=== PATIENT | male | born 1945 | race Caucasian/White ===

== ENCOUNTER 2018-06-20 20:17 | Inpatient (IN) ==
[2018-06-20] MEDS ORDERED: Succinylcholine Inj 200 MG/10 ML Vial ONE (20:21)
[2018-06-20] MEDS ORDERED: Propofol Inj 500 MG/50 ML Vial ONE (20:21)
[2018-06-20] MEDS ORDERED: Etomidate Inj 40 MG/20 ML Vial IV.PUSH ONE (20:21)
[2018-06-20] MEDS ORDERED: Etomidate Inj 20 MG/10 ML Ampul IV.PUSH ONE (20:35)
[2018-06-20] MEDS ORDERED: Succinylcholine Inj 100 MG/5 ML Syringe IV.PUSH ONE (20:35)
--- NOTE | 2018-06-20 20:45 | ED ---
HPI General Chief Complaint: Respiratory Symptoms Stated Complaint: Unresponsive/intubated Time Seen by Provider: 06/20/18 20:35 Mode of arrival: EMS Limitations: altered mental status and physical limitation (intubated and sedated) History of Present Illness Per EMS, the patient had been with his family at [facility], when he started to feel chest pain shortness of breath. Family stated that he has a history of COPD and CHF. EMS found him in severe respiratory distress asked the patient if he wanted to be intubated and he nodded yes they went ahead and provided etomidate and Versed and intubated apparently successfully once but had to switch with tube exchanger due to cuff deflation/rupture. upon arriving in ed, air leak detected, pulse ox 60's, decision to reintubate made (see procedure note) Related Data Home Medications Medication Instructions Recorded Confirmed aspirin 81 mg PO DAILY 06/20/18 06/20/18 baclofen 20 mg PO TID 06/20/18 06/20/18 brimonidine 1 drp OPHTHALMIC (EYE) TID 06/20/18 06/20/18 cilostazol 50 mg PO BID 06/20/18 06/20/18 gabapentin 300 mg PO TID 06/20/18 06/20/18 metformin 1,000 mg PO BID 06/20/18 06/20/18 omeprazole 20 mg PO DAILY 06/20/18 06/20/18 simvastatin 20 mg PO QPM 06/20/18 06/20/18 sitagliptin [Januvia] 100 mg PO DAILY 06/20/18 06/20/18 Allergies Allergy/AdvReac Type Severity Reaction Status Date / Time bee venom protein (honey bee) Allergy Difficulty Verified 06/20/18 22:04 [Bee sting] Breathing hydromorphone Allergy Nausea/Vomi Verified 06/20/18 22:04 ting pregabalin [From Lyrica] Allergy Anaphylaxis Verified 06/20/18 22:04 Review of Systems ROS: all other systems reviewed are negative PMFSH History History 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 Medical History Medical History BPH (benign prostatic hyperplasia) (Acute) CHF (congestive heart failure) (Acute) COPD (chronic obstructive pulmonary disease) (Acute) Chronic bronchitis (Acute) GERD (gastroesophageal reflux disease) (Acute) Glaucoma (Acute) Hypertension (Acute) Neuropathy (Acute) PVD (peripheral vascular disease) (Acute) Pacemaker (Acute) Surgical history unknown (Acute) Type 2 diabetes mellitus (Acute) Social History Social History Smoking Status: Current every day smoker Tobacco Type: Cigarettes How Often Do You Have a Drink Containing Alcohol: Unable to Obtain Recent Travel in [facility] within the Last 8 Weeks: No Recent Out of Country Travel within the Last 8 Weeks: No Immunization History Tetanus Immunization: Unable to Assess Hx Influenza Vaccine This Season: Unable to Assess Exam Narrative Exam Narrative: GENERAL: elderly male in severe respiratory distress SKIN: Diaphoretic warm skin HEAD: Atraumatic. Normocephalic. EYES: Pupils equal and round. No scleral icterus. No injection or drainage. ENT: No nasal bleeding or discharge. Mucous membranes pink and moist. Patient arrived with ET tube placed by EMS however there was detected air leak and the ET tube was changed NECK: Trachea midline. No JVD. CARDIOVASCULAR: Tachycardic rate regular rhythm. no rubs or gallops RESPIRATORY: Some spontaneous respirations, tachypneic, retractions, crackles diffusely, shallow breathing... Pacemaker on left anterior chest wall GASTROINTESTINAL: Abdomen soft, non-tender, nondistended. No rebound or guarding MUSCULOSKELETAL: Extremities without clubbing, cyanosis, or edema. No obvious deformities. NEUROLOGICAL: Please let it be noted that the patient did receive Versed 4 mg and 40 mg of etomidate prior to arrival by EMS patient was sedated and unable to follow any commands. Procedures Intubation Time Out Performed: Yes Sedative: etomidate Mg Given: 20 Paralytic: succinylcholine Mg Given: 100 Laryngoscope: Kait ET Tube Size: 7.5 ET Tube Uncuffed: Yes Tube Secured Depth (cm): 22 Tube Secured Location: teeth Tube Placement Confirmation: visualized tube passing through cords, equal breath sounds bilaterally and no breath sounds over epigastrium Patient Tolerated Procedure: no complications Intubation Complications: none Additional Comments: I was the attending personally supervising EDIE Gonzalez during the entirety of intubation (performed by EDIE Gonzalez), sedation, post intubation evaluation and sedation. Course Initial Documented Vital Signs Temperature 98.0 F 06/20/18 20:24 Pulse Rate 118 H 06/20/18 20:24 Respiratory Rate 20 06/20/18 20:24 Blood Pressure 158/80 H 06/20/18 20:24 Pulse Oximetry 85 L 06/20/18 20:24 Last Documented Vital Signs Temperature 98.0 F 06/20/18 20:24 Pulse Rate 106 H 06/20/18 21:24 Respiratory Rate 14 06/20/18 21:24 Blood Pressure 154/85 H 06/20/18 21:24 Pulse Oximetry 95 06/20/18 21:24 Critical Care Time Critical Care Time: Yes Total Critical Care Time: 60 Attestation: Aggregate critical care time was 60 minutes. Time to perform other separately billable procedures was not included in the critical care time. My time did not include minutes spent treating any other patients simultaneously or on activities that did not directly contribute to the patient's treatment. The services I provided to this patient were to treat and/or prevent clinically significant deterioration that could result in: [-] I provided critical care services requiring my management, as noted below: Chart data review, documentation time, medication orders and management, vital sign assessments/reviewing monitor data, ordering and reviewing lab tests, ordering and interpreting/reviewing x-rays and diagnostic studies, care of the patient and discussion of the patient with the admitting physicians. Medical Decision Making MDM Narrative Medical decision making narrative: ABG performed on PRBC, 550, 14, 100%, 5 of PEEP revealed acidosis of pH 7.197, PCO2 42, PaO2 severe hypoxemia 62.... At this point will increase PEEP to 10 to attempt and improve oxygenation Chest x-ray consistent with pulmonary edema Hypoxemic respiratory failure secondary to CHF CBC does not show any evidence of anemia, leukocytosis, thrombocytopenia of 86, 000 Coagulation profile is within normal limits Electrolytes are within normal limits with the exception of a random glucose of 231 hypoglycemia Troponin elevated at 0.14 Beta natruretic peptide elevated at 554 Tox screen negative except for benzodiazepines which the patient was given prior to arrival, he was given Versed for intubation purposes Differential Diagnosis Differential Diagnosis: Hypoxemic respiratory failure versus CHF exacerbation versus COPD exacerbation versus pneumonia versus STEMI Lab Data Lab results reviewed: Yes I reviewed the patient's lab results. Result diagrams: 06/20/18 20:50 06/20/18 20:50 Lab Results 06/20/18 06/20/18 06/20/18 Range/Units 20:50 20:50 20:50 WBC 8.5 (4.0-11.0) th/mm3 RBC 4.05 L (4.50-5.90) mil/mm3 Hgb 12.5 L (13.0-17.0) gm/dL Hct 38.4 L (39.0-51.0) % MCV 94.8 (80.0-100.0) fL MCH 30.8 (27.0-34.0) pg MCHC 32.5 (32.0-36.0) % RDW 16.6 (11.6-17.2) % Plt Count 86 L (150-450) th/mm3 MPV 10.0 (7.0-11.0) fL Prelim Diff (Auto) Slide review pending Neut % (Auto) 60.0 (16.0-70.0) % Lymph % (Auto) 32.2 (9.0-44.0) % Finney % (Auto) 5.6 (0.0-8.0) % Eos % (Auto) 1.5 (0.0-4.0) % Baso % (Auto) 0.7 (0.0-2.0) % Neut # (Auto) 5.1 (1.8-7.7) th/mm3 Lymph # (Auto) 2.7 (1.0-4.8) th/mm3 Finney # (Auto) 0.5 (0.0-0.9) th/mm3 Eos # (Auto) 0.1 (0.0-0.4) th/mm3 Baso # (Auto) 0.1 (0.0-0.2) th/mm3 Differential Comment . PT 11.8 H (9.8-11.6) sec INR 1.2 Ratio APTT 25.1 (24.3-30.1) sec Puncture Site Patient Temperature O2 Saturation (90-100) % ABG pH (7.380-7.420) ABG pCO2 (38-42) mmHg ABG pO2 (61-120) mmHg ABG HCO3 (22-26) mmol/L ABG O2 Content (12.0-20.0) Vol % ABG Base Excess (-2-2) mmol/L ABG Methemoglobin (0-2) % Carlos Test Hemoglobin (12.0-16.0) G/DL Carboxyhemoglobin (0-4) % O2 Delivery Device Vent Setting Inspired O2 % Critical Value Sodium 136 (136-145) meq/L Potassium 3.4 L (3.5-5.1) meq/L Chloride 103 (98-107) meq/L Carbon Dioxide 14.2 L (21.0-32.0) meq/L Anion Gap 19 H (5-15) meq/L BUN 12 (7-18) mg/dL Creatinine 1.24 (0.60-1.30) mg/dL Estimated GFR 50 L (>89) mL/min Random Glucose 231 H (74-106) mg/dL Calcium 8.3 L (8.5-10.1) mg/dL Total Bilirubin 0.5 (0.2-1.0) mg/dL AST 67 H (15-37) U/L ALT 65 (12-78) U/L Alkaline Phosphatase 87 (45-117) U/L Total Creatine Kinase 78 (39-308) U/L Troponin I 0.14 H (0.02-0.05) ng/mL B-Natriuretic Peptide (0-100) pg/mL Total Protein 7.4 (6.4-8.2) g/dL Albumin 3.3 L (3.4-5.0) g/dL Urine Color (Yellw/Straw) Urine Clarity (Clear) Urine pH (5.0-8.5) Ur Specific [place] (1.002-1.035) Urine Protein (Neg-Trace) mg/dL Urine Glucose (UA) (Negative) mg/dL Urine Ketones (Negative) mg/dL Urine Occult Blood (Negative) Urine Nitrate (Negative) Urine Bilirubin (Negative) Urine Urobilinogen (Less than 2) mg/dL Ur Leukocyte Esterase (Negative) Urine RBC (0-3) /hpf Urine WBC (0-5) /hpf Ur Squamous Epith Cells (0-5) /hpf Urine Bacteria (None) /hpf Hyaline Casts (0-3) /lpf Micro UA Comment Urine Culture Comments Urine Opiates Screen (Neg) Ur Barbiturates Screen (Neg) Ur Amphetamines Screen (Neg) U Benzodiazepines Scrn (Neg) Urine Cocaine Screen (Neg) U Cannabinoids Screen (Neg) 06/20/18 06/20/18 06/20/18 Range/Units 20:50 20:58 21:15 WBC (4.0-11.0) th/mm3 RBC (4.50-5.90) mil/mm3 Hgb (13.0-17.0) gm/dL Hct (39.0-51.0) % MCV (80.0-100.0) fL MCH (27.0-34.0) pg MCHC (32.0-36.0) % RDW (11.6-17.2) % Plt Count (150-450) th/mm3 MPV (7.0-11.0) fL Prelim Diff (Auto) Neut % (Auto) (16.0-70.0) % Lymph % (Auto) (9.0-44.0) % Finney % (Auto) (0.0-8.0) % Eos % (Auto) (0.0-4.0) % Baso % (Auto) (0.0-2.0) % Neut # (Auto) (1.8-7.7) th/mm3 Lymph # (Auto) (1.0-4.8) th/mm3 Finney # (Auto) (0.0-0.9) th/mm3 Eos # (Auto) (0.0-0.4) th/mm3 Baso # (Auto) (0.0-0.2) th/mm3 Differential Comment PT (9.8-11.6) sec INR Ratio APTT (24.3-30.1) sec Puncture Site Left radial Patient Temperature 98.6 O2 Saturation 81 L* (90-100) % ABG pH 7.20 L* (7.380-7.420) ABG pCO2 43 H (38-42) mmHg ABG pO2 62 (61-120) mmHg ABG HCO3 16 L* (22-26) mmol/L ABG O2 Content 15.2 (12.0-20.0) Vol % ABG Base Excess -10.6 L (-2-2) mmol/L ABG Methemoglobin 0.9 (0-2) % Carlos Test Present Hemoglobin 13.3 (12.0-16.0) G/DL Carboxyhemoglobin 3.8 (0-4) % O2 Delivery Device Ventilator Vent Setting Prvc 14/550/5+/1.0it Inspired O2 100 % Critical Value Yes Sodium (136-145) meq/L Potassium (3.5-5.1) meq/L Chloride (98-107) meq/L Carbon Dioxide (21.0-32.0) meq/L Anion Gap (5-15) meq/L BUN (7-18) mg/dL Creatinine (0.60-1.30) mg/dL Estimated GFR (>89) mL/min Random Glucose (74-106) mg/dL Calcium (8.5-10.1) mg/dL Total Bilirubin (0.2-1.0) mg/dL AST (15-37) U/L ALT (12-78) U/L Alkaline Phosphatase (45-117) U/L Total Creatine Kinase (39-308) U/L Troponin I (0.02-0.05) ng/mL B-Natriuretic Peptide 554 H (0-100) pg/mL Total Protein (6.4-8.2) g/dL Albumin (3.4-5.0) g/dL Urine Color (Yellw/Straw) Urine Clarity (Clear) Urine pH (5.0-8.5) Ur Specific [place] (1.002-1.035) Urine Protein (Neg-Trace) mg/dL Urine Glucose (UA) (Negative) mg/dL Urine Ketones (Negative) mg/dL Urine Occult Blood (Negative) Urine Nitrate (Negative) Urine Bilirubin (Negative) Urine Urobilinogen (Less than 2) mg/dL Ur Leukocyte Esterase (Negative) Urine RBC (0-3) /hpf Urine WBC (0-5) /hpf Ur Squamous Epith Cells (0-5) /hpf Urine Bacteria (None) /hpf Hyaline Casts (0-3) /lpf Micro UA Comment Urine Culture Comments Urine Opiates Screen Neg (Neg) Ur Barbiturates Screen Neg (Neg) Ur Amphetamines Screen Neg (Neg) U Benzodiazepines Scrn Pos H (Neg) Urine Cocaine Screen Neg (Neg) U Cannabinoids Screen Neg (Neg) 06/20/18 Range/Units 21:15 WBC (4.0-11.0) th/mm3 RBC (4.50-5.90) mil/mm3 Hgb (13.0-17.0) gm/dL Hct (39.0-51.0) % MCV (80.0-100.0) fL MCH (27.0-34.0) pg MCHC (32.0-36.0) % RDW (11.6-17.2) % Plt Count (150-450) th/mm3 MPV (7.0-11.0) fL Prelim Diff (Auto) Neut % (Auto) (16.0-70.0) % Lymph % (Auto) (9.0-44.0) % Finney % (Auto) (0.0-8.0) % Eos % (Auto) (0.0-4.0) % Baso % (Auto) (0.0-2.0) % Neut # (Auto) (1.8-7.7) th/mm3 Lymph # (Auto) (1.0-4.8) th/mm3 Finney # (Auto) (0.0-0.9) th/mm3 Eos # (Auto) (0.0-0.4) th/mm3 Baso # (Auto) (0.0-0.2) th/mm3 Differential Comment PT (9.8-11.6) sec INR Ratio APTT (24.3-30.1) sec Puncture Site Patient Temperature O2 Saturation (90-100) % ABG pH (7.380-7.420) ABG pCO2 (38-42) mmHg ABG pO2 (61-120) mmHg ABG HCO3 (22-26) mmol/L ABG O2 Content (12.0-20.0) Vol % ABG Base Excess (-2-2) mmol/L ABG Methemoglobin (0-2) % Carlos Test Hemoglobin (12.0-16.0) G/DL Carboxyhemoglobin (0-4) % O2 Delivery Device Vent Setting Inspired O2 % Critical Value Sodium (136-145) meq/L Potassium (3.5-5.1) meq/L Chloride (98-107) meq/L Carbon Dioxide (21.0-32.0) meq/L Anion Gap (5-15) meq/L BUN (7-18) mg/dL Creatinine (0.60-1.30) mg/dL Estimated GFR (>89) mL/min Random Glucose (74-106) mg/dL Calcium (8.5-10.1) mg/dL Total Bilirubin (0.2-1.0) mg/dL AST (15-37) U/L ALT (12-78) U/L Alkaline Phosphatase (45-117) U/L Total Creatine Kinase (39-308) U/L Troponin I (0.02-0.05) ng/mL B-Natriuretic Peptide (0-100) pg/mL Total Protein (6.4-8.2) g/dL Albumin (3.4-5.0) g/dL Urine Color Yellow (Yellw/Straw) Urine Clarity Clear (Clear) Urine pH 5.0 (5.0-8.5) Ur Specific [place] 1.005 (1.002-1.035) Urine Protein 30 H (Neg-Trace) mg/dL Urine Glucose (UA) 50 (Negative) mg/dL Urine Ketones Negative (Negative) mg/dL Urine Occult Blood Small H (Negative) Urine Nitrate Negative (Negative) Urine Bilirubin Negative (Negative) Urine Urobilinogen Less than 2 (Less than 2) mg/dL Ur Leukocyte Esterase Negative (Negative) Urine RBC 1 (0-3) /hpf Urine WBC 1 (0-5) /hpf Ur Squamous Epith Cells <1 (0-5) /hpf Urine Bacteria Occasional H (None) /hpf Hyaline Casts 1 (0-3) /lpf Micro UA Comment Cath-culture ind Urine Culture Comments Cath-cult indicated Urine Opiates Screen (Neg) Ur Barbiturates Screen (Neg) Ur Amphetamines Screen (Neg) U Benzodiazepines Scrn (Neg) Urine Cocaine Screen (Neg) U Cannabinoids Screen (Neg) Imaging Data Radiologist's impression: Chest X-Ray 06/20/18 20:36 CONCLUSION: Bilateral perihilar infiltrates and mild cardiomegaly. Please see above. ECG Data EKG Prior to Arrival: No Attestation: I personally reviewed and interpreted this ECG as follows: Prior ECG tracings: not available for review Interpretation: Atrial fibrillation with RVR 113 bpm, conduction delay wide- complex Discharge Plan Discharge Disposition Patient Disposition: 30 Still Patient Discharge Condition Condition: Serious Discharge Details Diagnosis: Respiratory failure Physicians Team ED Provider: Huang Shirley Primary Care Provider: UNKNOWN, Rxs /Orders / Referrals /Forms Prescriptions: No Action metformin 500 mg Tablet 1,000 mg PO BID RF: 0 cilostazol 50 mg Tablet 50 mg PO BID RF: 0 baclofen 10 mg Tablet 20 mg PO TID RF: 0 simvastatin 20 mg Tablet 20 mg PO QPM RF: 0 gabapentin 300 mg Capsule 300 mg PO TID RF: 0 omeprazole 20 mg Capsule,Delayed Release(Dr/Ec) 20 mg PO DAILY RF: 0 aspirin 81 mg Tablet,Chewable 81 mg PO DAILY RF: 0 brimonidine 0.15 % Drops 1 drp OPHTHALMIC (EYE) TID RF: 0 sitagliptin [Januvia] 100 mg Tablet 100 mg PO DAILY RF: 0 Status ED Status: With Doctor
[2018-06-20 21:05] LABS: Baso # (Auto) 0.1 th/mm3 (0.0-0.2); Baso % (Auto) 0.7 % (0.0-2.0); Eos # (Auto) 0.1 th/mm3 (0.0-0.4); Eos % (Auto) 1.5 % (0.0-4.0); Hematocrit 38.4 % (39.0-51.0); Hemoglobin 12.5 gm/dL (13.0-17.0); Lymph # (Auto) 2.7 th/mm3 (1.0-4.8); Lymph % (Auto) 32.2 % (9.0-44.0); Mean Corpuscular HGB Conc 32.5 % (32.0-36.0); Mean Corpuscular Hemoglobin 30.8 pg (27.0-34.0); Mean Corpuscular Volume 94.8 fL (80.0-100.0); Mono # (Auto) 0.5 th/mm3 (0.0-0.9); Mono % (Auto) 5.6 % (0.0-8.0); Neut # (Auto) 5.1 th/mm3 (1.8-7.7); Platelet Count 86 th/mm3 (150-450); Red Blood Count 4.05 mil/mm3 (4.50-5.90); Red Cell Distribution Width 16.6 % (11.6-17.2); White Blood Count 8.5 th/mm3 (4.0-11.0)
[2018-06-20 21:13] LABS: ABG Base Excess -10.6 mmol/L (-2-2); ABG PCO2 43 mmHg (38-42); ABG PO2 62 mmHg (61-120)
[2018-06-20 21:17] LABS: Activated Partial Thrombo Time 25.1 sec (24.3-30.1); INR 1.2 Ratio; Prothrombin Time 11.8 sec (9.8-11.6)
--- NOTE | 2018-06-20 21:21 | XR ---
EXAM DATE: 06/20/2018 9:08 PM EDT AGE/SEX: 89 years / Male INDICATIONS: Shortness of breath. Patient was found unresponsive. CLINICAL DATA: This is the patient's initial encounter. Patient reports that signs and symptoms have been present for 1 day and indicates a pain score of Nonresponsive. MEDICAL/SURGICAL HISTORY: Non-responsive. Non-responsive. COMPARISON: No prior exams available for comparison. FINDINGS: Bilateral perihilar infiltrates are present with mild cardiomegaly, presumably acute failure. No larg e effusion. No pneumothorax. Cardiac pacer/defibrillator present. Patient is intubated. Endotracheal tube tip is approximately 7 cm above the [place]. CONCLUSION: Bilateral perihilar infiltrates and mild cardiomegaly. Please see above. Electronically signed by: Michael Rosario MD 06/20/2018 9:20 PM EDT
[2018-06-20 21:36] LABS: Alanine Aminotransferase 65 U/L (12-78); Albumin 3.3 g/dL (3.4-5.0); Anion Gap 19 meq/L (5-15); Aspartate Aminotransferase 67 U/L (15-37); Blood Urea Nitrogen 12 mg/dL (7-18); Calcium 8.3 mg/dL (8.5-10.1); Carbon Dioxide 14.2 meq/L (21.0-32.0); Chloride 103 meq/L (98-107); Glomerular Filtration Rate 50 mL/min (>89); Glucose,Random 231 mg/dL (74-106); Sodium 136 meq/L (136-145)
[2018-06-20 21:49] LABS: Alkaline Phosphatase 87 U/L (45-117); Total Protein 7.4 g/dL (6.4-8.2); Troponin I 0.14 ng/mL (0.02-0.05)
--- NOTE | 2018-06-20 21:51 | ECG ---
Date Performed: 06/20/2018 Time Performed: 20:34:05 PTAGE: 89 years EKG: ATRIAL FIBRILLATION WITH RAPID VENTRICULAR RESPONSE WITH VENTRICULAR PREMATURE COMPLEXES LB BB NO PREVIOUS TRACING DOCTOR: Amparo Bejarano Interpretating Date/Time 06/20/2018 21:49:43
[2018-06-20 21:54] LABS: Amphetamine Screen,Urine Neg (Neg); Barbiturate Screen,Urine Neg (Neg); Cannabinoid Screen,Urine Neg (Neg); Cocaine Screen,Urine Neg (Neg)
[2018-06-20 21:58] LABS: Bacteria,Urine Occasional /hpf; Bilirubin,Urine Negative (Negative); Clarity,Urine Clear (Clear); Color,Urine Yellow (Yellw/Straw); Glucose,Urine (UA) 50 mg/dL (Negative); Hyaline Casts,Urine 1 /lpf (0-3); Leukocyte Esterase,Urine Negative (Negative); Nitrite,Urine Negative (Negative); Specific Gravity,Urine 1.005 (1.002-1.035); Squamous Epithelial Cell,Urine <1 /hpf (0-5)
[2018-06-20 21:59] LABS: Creatine Kinase 78 U/L (39-308); Potassium 3.4 meq/L (3.5-5.1)
[2018-06-20 22:00] LABS: Opiate Screen,Urine Neg (Neg)
[2018-06-20] MEDS ORDERED: Acetaminophen 325 MG Tablet PO PRN (23:09)
[2018-06-20] MEDS ORDERED: Dextrose 50% in Water 50 ML Vial IV.PUSH PRN (23:26)
--- NOTE | 2018-06-20 23:53 | P.HPCC ---
History of Present Illness Service: Critical care medicine Primary Care Physician: UNKNOWN Chief Complaint: Chest pain, shortness of breath History of Present Illness: Elderly male with a medical history significant for viral cardiomyopathy who was traveling on vacation from [place] with his family in [place] and today developed chest pain with worsening shortness of breath for which EMS was called by family. Patient was extremely short of breath on the arrival and hypoxic and they proceeded with endotracheal intubation and patient was transferred to the ER. In the ER it was noted that his cuff was leaking hence ET tube was exchanged by ER physician and patient was placed on mechanical ventilation. Per his family he has a defibrillator and is followed by his bulk mail clerk in [place] whom he saw in December of this year. He reportedly does not take any diuretic. Chest x-ray done in the ER revealed pulmonary edema. EKG revealed atrial fibrillation. Patient was accepted for admission by critical care medicine service. When I evaluated him in the ER he was sedated with propofol, orally intubated on mechanical ventilation. History was obtained by reviewing records, discussion with family as well as ER physician. Inpatient Certification: I certify that the inpatient services were ordered in accordance with Medicare regulations governing the order. This includes certification that hospital inpatient services are reasonable and necessary and in the case of services not specified as inpatient-only under 42 CFR 419.22(n), that they are appropriately provided as inpatient services in accordance to with the 2-midnight benchmark under 43 CFR 412.3(e) Estimated Total Length of Stay (Days): 5 Plans for Post Hospital Care: Not yet determined Review of Systems unobtainable due to endotracheal tube PMFSH - History History Provided By: Aircraft Lay Out Worker / EMT - Medical History Medical History: Medical History (Last Updated 06/20/18 @ 21:59 by Gaston Orantes) BPH (benign prostatic hyperplasia) CHF (congestive heart failure) COPD (chronic obstructive pulmonary disease) Chronic bronchitis GERD (gastroesophageal reflux disease) Glaucoma Hypertension Neuropathy PVD (peripheral vascular disease) Pacemaker Surgical history unknown Type 2 diabetes mellitus - Tobacco History Tobacco Use In Past 30 Days: Yes Smoking Status: Current every day smoker Tobacco Type: Cigarettes - Alcohol History How Often Do You Have a Drink Containing Alcohol: Unable to Obtain - Travel History Recent Travel in the [place] Within the Last 8 Weeks: No Recent Travel Out of the Country Within the Last 8 Weeks: No - Immunization History Tetanus Immunization: Unable to Assess Hx Influenza Vaccine This Season: Unable to Assess Medications and Allergies Active Medications: Active Medications Acetaminophen (Tylenol) 650 mg PO Q6H PRN PRN Reason: PAIN 1-10 AND/OR FEVER >101F Albuterol (Duoneb Neb (Yon)) 1 ampul NEB Q6HR NEB [facility] Aspirin (Aspirin Chew) 324 mg PO ONCE STA Stop: 06/20/18 23:38 Chlorhexidine Gluconate (Chlorhexidine 2% Cloth) 3 pack TOPICAL DAILY@0400 YON Stop: 06/26/18 03:59 Chlorhexidine Gluconate (Chlorhexidine 2% Cloth) 3 pack TOPICAL DAILY@0400 PRN PRN Reason: Extra cloth needed Stop: 06/26/18 03:59 Dextrose (D50w Vial) 50 ml IV.PUSH UNSCH PRN PRN Reason: PER HYPOGLYCEMIA PROTOCOL Furosemide (Lasix Inj) 40 mg IV.PUSH BID@0900,1800 YON Glucagon (Glucagon Inj) 1 mg OTHER PRN PRN PRN Reason: for Hypoglycemia Protocol Propofol (Diprivan 1000 Mg/100 Ml Inj) 1,000 mg in 100 mls @ 2.1 mls/hr IV.CONT TITRATE PRN; Protocol PRN Reason: Per Protocol Insulin Human Regular (Novolin R Correctional Sugar Inj) 0 units SQ Q6HR YON; Protocol Sodium Chloride (Ns Flush) 2 ml IV.FLUSH PRN PRN PRN Reason: FLUSH AFTER USING IV ACCESS Allergies Allergy/AdvReac Type Severity Reaction Status Date / Time bee venom protein (honey bee) Allergy Difficulty Verified 06/20/18 22:04 [Bee sting] Breathing hydromorphone Allergy Nausea/Vomi Verified 06/20/18 22:04 ting pregabalin [From Lyrica] Allergy Anaphylaxis Verified 06/20/18 22:04 Home Medications Medication Instructions Recorded Confirmed Type aspirin 81 mg PO DAILY 06/20/18 06/20/18 History baclofen 20 mg PO TID 06/20/18 06/20/18 History brimonidine 1 drp OPHTHALMIC (EYE) TID 06/20/18 06/20/18 History cilostazol 50 mg PO BID 06/20/18 06/20/18 History gabapentin 300 mg PO TID 06/20/18 06/20/18 History metformin 1,000 mg PO BID 06/20/18 06/20/18 History omeprazole 20 mg PO DAILY 06/20/18 06/20/18 History simvastatin 20 mg PO QPM 06/20/18 06/20/18 History sitagliptin [Januvia] 100 mg PO DAILY 06/20/18 06/20/18 History Results - Labs CBC & Chem 7: 06/20/18 20:50 06/20/18 20:50 Labs: Short CBC 06/20/18 Range/Units 20:50 WBC 8.5 (4.0-11.0) th/mm3 Hgb 12.5 L (13.0-17.0) gm/dL Hct 38.4 L (39.0-51.0) % Plt Count 86 L (150-450) th/mm3 BMP 06/20/18 20:50 Sodium 136 Potassium 3.4 L Chloride 103 Carbon Dioxide 14.2 L BUN 12 Creatinine 1.24 Calcium 8.3 L Cardiac Enzymes 06/20/18 Range/Units 20:50 Total Creatine Kinase 78 (39-308) U/L Troponin I 0.14 H (0.02-0.05) ng/mL Liver Function 06/20/18 Range/Units 20:50 Total Bilirubin 0.5 (0.2-1.0) mg/dL AST 67 H (15-37) U/L ALT 65 (12-78) U/L Alkaline Phosphatase 87 (45-117) U/L Albumin 3.3 L (3.4-5.0) g/dL Urine 06/20/18 Range/Units 21:15 Urine Color Yellow (Yellw/Straw) Urine Clarity Clear (Clear) Urine pH 5.0 (5.0-8.5) Ur Specific [place] 1.005 (1.002-1.035) Urine Protein 30 H (Neg-Trace) mg/dL Urine Glucose (UA) 50 (Negative) mg/dL - Imaging Impressions Chest X-Ray 06/20/18 20:36 CONCLUSION: Bilateral perihilar infiltrates and mild cardiomegaly. Please see above. Exam Vital signs: Vital Signs 06/20/18 20:24 06/20/18 20:42 06/20/18 21:24 Temperature 98.0 F Pulse Rate 118 H 106 H Respiratory Rate 20 14 14 Blood Pressure 158/80 H 154/85 H Pulse Oximetry 85 L 95 Intake & Output 06/20/18 06/20/18 06/21/18 06:59 18:59 06:59 Weight 70 kg Narrative: HEENT/ Neuro: Sedated, orally intubated, No Pallor, no icterus, tongue/ mucosa moist Neck: Raised JVD Chest/Pulm: on mech vent, good air entry bilaterally, bibasilar crackles, no wheezing CVS: S1-S2 irregularly irregular, no murmur GI/abdomen: soft, nontender, bowel sounds sluggish Extremities: warm bilaterally, no edema Caprini VTE Risk Assessment Caprini VTE Risk Assessment: Moderate/High Risk (score >= 2) Caprini Risk Assessment Model: Point Value = 1 Point Value = 2 Point Value = 3 Point Value = 5 Age 41-60 Minor surgery BMI > 25 kg/m2 Swollen legs Varicose veins or History of unexplained or recurrent spontaneous Oral contraceptives or hormone replacement Sepsis (< 1 month) Serious lung disease, including pneumonia (< 1 month) Abnormal pulmonary function Acute myocardial infarction Congestive heart failure (< 1 month) History of inflammatory bowel disease Medical patient at bed rest Age 61-74 Arthroscopic surgery Major open surgery (> 45 min) Laparoscopic surgery (> 45 min) Malignancy Confined to bed (> 72 hours) Immobilizing plaster cast Central venous access Age >= 75 History of VTE Family history of VTE Factor V Leiden Prothrombin [id number] Lupus anticoagulant Anticardiolipin antibodies Elevated serum homocysteine Heparin-induced thrombocytopenia Other congenital or acquired thrombophilia Stroke (< 1 month) Elective arthroplasty Hip, pelvis, or leg fracture Acute spinal cord injury (< 1 month) Prophylaxis Regimen: Total Risk Factor Score Risk Level Prophylaxis Regimen 0-1 Low Early ambulation 2 Moderate Order ONE of the following: *Sequential Compression Device (SCD) *Heparin 5000 units SQ BID 3-4 Higher Order ONE of the following medications: *Heparin 5000 units SQ TID *Enoxaparin/Lovenox 40 mg SQ daily (WT < 150 kg, CrCl > 30 mL/min) *Enoxaparin/Lovenox 30 mg SQ daily (WT < 150 kg, CrCl > 10-29 mL/min) *Enoxaparin/Lovenox 30 mg SQ BID (WT < 150 kg, CrCl > 30 mL/min) AND/OR *Sequential Compression Device (SCD) 5 or more Highest Order ONE of the following medications: *Heparin 5000 units SQ TID (Preferred with Epidurals) *Enoxaparin/Lovenox 40 mg SQ daily (WT < 150 kg, CrCl > 30 mL/min) *Enoxaparin/Lovenox 30 mg SQ daily (WT < 150 kg, CrCl > 10-29 mL/min) *Enoxaparin/Lovenox 30 mg SQ BID (WT < 150 kg, CrCl > 30 mL/min) AND *Sequential Compression Device (SCD) Assessment and Plan - Assessment and Plan Plan: Elderly male with: Chest pain Acute respiratory failure Acute decompensated CHF Cardiomyopathy Positive troponin Atrial fibrillation Diabetes mellitus Hypertension COPD History of pacemaker/defibrillator placement Plan: Neuro: Sedation with propofol, daily sedation medication. Follow neuro status. Cardiovascular: Watch for hypotension. Diuresis with Lasix. Serial cardiac enzymes. 2D echo in a.m. Cardiology consult requested in view of decompensated CHF, history of cardiomyopathy and positive troponin. Obtain medical records from patient's bulk mail clerk in [place] in a.m. currently A. fib appears to be rate controlled. Continue aspirin. May need to initiate full anticoagulation-deferred to cardiology Pulmonary: Continue mechanical ventilation, vent bundle, bronchodilators as needed. Peep +10. Diuresis with Lasix. GI/liver: N.p.o. for now. If not extubated tomorrow consider tube feeds. Renal/: Strict intake output, monitor and replete electrolytes, follow BUN/ creatinine. Diuresis with Lasix ID: Watch for fever/leukocytosis. No antibiotics at this time. Endocrine: Sliding scale insulin for glycemic control. Prophylaxis: PPI/SCDs/Lovenox Condition critical Time spent on critical care excluding procedures 45 minutes.
[2018-06-21] MEDS: Insulin NovoLIN Regular Correctional Sugar Inj SQ SCH ×2 (00:46→06:38)
[2018-06-21] MEDS ORDERED: Chlorhexidine Gluconate 2% 1 Pack (2 Cloths) TOPICAL PRN (04:00)
--- NOTE | 2018-06-21 05:28 | XR ---
EXAM DATE: 06/21/2018 5:20 AM EDT AGE/SEX: 89 years / Male INDICATIONS: Shortness of breath, possible pulmonary disease. CLINICAL DATA: This is the patient's subsequent encounter. Patient reports that signs and symptoms h ave been present for 2 days and indicates a pain score of Nonresponsive. MEDICAL/SURGICAL HISTORY: Non-responsive. Non-responsive. COMPARISON: [facility], CHEST 1V SINGLE AP, 06/20/2018. . FINDINGS: Bilateral patchy parenchymal consolidation is stable. Endotracheal tube unchanged. EKG leads are pres ent. Aortic calcification and cardiomegaly. Osseous structures are intact. CONCLUSION: Stable exam. Electronically signed by: Trino Fernandez MD 06/21/2018 5:27 AM EDT
[2018-06-21 06:18] LABS: ABG Base Excess -2.6 mmol/L (-2-2); ABG PCO2 34 mmHg (38-42); ABG PO2 91 mmHG (61-120)
[2018-06-21] MEDS: Chlorhexidine Gluconate 2% 1 Pack (2 Cloths) TOPICAL SCH (06:39)
[2018-06-21] MEDS: Propofol 1000 mg/100 ml Inj 1,000 MG/100 ML BOTTLE IV.CONT PRN ×4 (06:43→20:07)
[2018-06-21 07:43] LABS: Baso % (Auto) 0.3 % (0.0-2.0); Eos # (Auto) 0.1 th/mm3 (0.0-0.4); Eos % (Auto) 1.2 % (0.0-4.0); Hematocrit 34.9 % (39.0-51.0); Lymph # (Auto) 1.6 th/mm3 (1.0-4.8); Lymph % (Auto) 16.3 % (9.0-44.0); Mean Corpuscular HGB Conc 34.2 % (32.0-36.0); Mean Corpuscular Hemoglobin 31.2 pg (27.0-34.0); Mean Corpuscular Volume 91.1 fL (80.0-100.0); Mean Platelet Volume 10.3 fL (7.0-11.0); Mono # (Auto) 0.5 th/mm3 (0.0-0.9); Mono % (Auto) 5.2 % (0.0-8.0); Neut # (Auto) 7.5 th/mm3 (1.8-7.7); Platelet Count 67 th/mm3 (150-450); Red Blood Count 3.84 mil/mm3 (4.50-5.90); Red Cell Distribution Width 16.7 % (11.6-17.2); White Blood Count 9.7 th/mm3 (4.0-11.0)
[2018-06-21 08:08] LABS: Anion Gap 12 meq/L (5-15); Aspartate Aminotransferase 122 U/L (15-37); Blood Urea Nitrogen 16 mg/dL (7-18); Calcium 8.1 mg/dL (8.5-10.1); Carbon Dioxide 22.1 meq/L (21.0-32.0); Chloride 102 meq/L (98-107); Glomerular Filtration Rate 42 mL/min (>89); Glucose,Random 195 mg/dL (74-106); Potassium 3.6 meq/L (3.5-5.1); Sodium 136 meq/L (136-145)
[2018-06-21 08:09] LABS: Alanine Aminotransferase 65 U/L (12-78)
[2018-06-21 08:13] LABS: Alkaline Phosphatase 74 U/L (45-117); Total Protein 6.5 g/dL (6.4-8.2)
[2018-06-21] MEDS ORDERED: Heparin 10,000 UNITS/10 ML Vial (for IV use) IV.PUSH STA (09:07)
[2018-06-21] MEDS ORDERED: Potassium Phosphate 500 MG Soluble Tablet PO PRN ×2 (09:14)
[2018-06-21] MEDS ORDERED: Magnesium Oxide 400 MG Tablet PO PRN (09:14)
[2018-06-21] MEDS ORDERED: Magnesium Sulfate Inj 2 GM in Sodium Chlor 0.9% Inj 96 ML IV.SIG PRN (09:14)
[2018-06-21] MEDS ORDERED: Magnesium Sulfate Inj 4 GM in Sodium Chlor 0.9% Inj 92 ML IV.SIG PRN (09:14)
[2018-06-21] MEDS ORDERED: Sodium Phosphate Inj 30 MMOL in Sodium Chlor 0.9% Inj 250 ML IV.SIG PRN (09:14)
[2018-06-21] MEDS ORDERED: Potassium Chlor 40 mEq Premix 40 MEQ/100 ML PIGGYBACK IV.SIG PRN ×2 (09:14)
[2018-06-21] MEDS ORDERED: Dextrose 50% in Water 50 ML Vial IV.PUSH PRN (09:18)
[2018-06-21] MEDS: fentaNYL 10 mcg/mL Premix Drip 2,500 MCG/250 ML BAG IV.SIG PRN (09:26)
[2018-06-21] MEDS: Metoprolol Tartrate 25 MG Tablet PO SCH ×3 (09:27→21:12)
[2018-06-21] MEDS ORDERED: fentaNYL Citrate Inj 100 MCG/2 ML Ampul IV.PUSH ONE (09:30)
--- NOTE | 2018-06-21 09:54 | P.PNCC ---
Subjective Subjective Remarks/Hospital Course: Elderly male with a medical history significant for viral cardiomyopathy who was traveling on vacation from [place] with his family in [place] and today developed chest pain with worsening shortness of breath for which EMS was called by family. Patient was extremely short of breath on the arrival and hypoxic and they proceeded with endotracheal intubation and patient was transferred to the ER. In the ER it was noted that his cuff was leaking hence ET tube was exchanged by ER physician and patient was placed on mechanical ventilation. Per his family he has a defibrillator and is followed by his character artist in [place] whom he saw in December of this year. He reportedly does not take any diuretic. Chest x-ray done in the ER revealed pulmonary edema. EKG revealed atrial fibrillation. Patient was accepted for admission by critical care medicine service. When I evaluated him in the ER he was sedated with propofol, orally intubated on mechanical ventilation. History was obtained by reviewing records, discussion with family as well as ER physician. Subjective 06/21: Afebrile. Hemodynamically stable. Troponin bumped 14. Started on heparin drip. Sedated with propofol and fentanyl drips. Arousable the ventilator and is very agitated will attempt to withdrawal tube. PEEP down to 5. Objective Vital Signs / I&O: Vital Signs 06/20/18 20:24 06/20/18 20:42 06/20/18 21:24 Temperature 98.0 F Pulse Rate 118 H 106 H Respiratory Rate 20 14 14 Blood Pressure 158/80 H 154/85 H Pulse Oximetry 85 L 95 06/20/18 23:26 06/21/18 00:30 06/21/18 00:33 Temperature Pulse Rate 110 H 112 H Respiratory Rate 20 20 20 Blood Pressure 128/86 132/89 Pulse Oximetry 100 100 100 06/21/18 01:28 06/21/18 01:54 06/21/18 02:00 Temperature 99.7 F H Pulse Rate 112 H 109 H Respiratory Rate 20 20 Blood Pressure 131/85 124/63 Pulse Oximetry 100 100 100 06/21/18 02:12 06/21/18 02:24 06/21/18 03:00 Temperature Pulse Rate 109 H 104 H Respiratory Rate 23 24 Blood Pressure 115/58 L Pulse Oximetry 100 100 06/21/18 03:27 06/21/18 03:29 06/21/18 04:00 Temperature 99.1 F Pulse Rate 100 H 97 H Respiratory Rate 22 22 22 Blood Pressure 113/57 L Pulse Oximetry 100 06/21/18 05:10 06/21/18 06:00 06/21/18 07:52 Temperature Pulse Rate 97 H 100 H Respiratory Rate Blood Pressure Pulse Oximetry 99 06/21/18 07:53 06/21/18 08:00 06/21/18 08:46 Temperature 98.8 F Pulse Rate 100 H 96 H Respiratory Rate 22 20 20 Blood Pressure 120/64 Pulse Oximetry 98 100 Intake & Output 06/20/18 06/21/18 06/21/18 18:59 06:59 18:59 Intake Total 100 / 100 0 / 0 Output Total 300 / 300 300 / 300 Balance -200 / -200 -300 / -300 Weight 67.7 kg Intake: IV 100 / 100 Diprivan 1000 mg/100 ml Inj 1, 100 / 100 000 mg In 100 ml @ 5 MCG/KG/MIN 2.1 mls/hr IV.CONT TITRATE PRN Rx#:[id number] Oral 0 / 0 Output: Urine 300 / 300 Urine Amount (Catheter) 300 / 300 Indwelling Urethral Catheter 300 / 300 Other: # Bowel Movements 0 Weight On Admission 67.7 kg Result Diagrams: 06/21/18 06:24 06/21/18 06:24 Other Results: Microbiology 06/21/18 02:10 Sputum - Endotracheal Gram Stain - Final 06/20/18 21:15 Nasal Wash Influenza Types A,B Antigen - Final Negative for FLU A and B antigen Infection due to influenza A or B cannot be ruled out since the antigen present in the sample may be below the detection limit of the test. Imaging: Chest X-Ray 06/20/18 20:36 CONCLUSION: Bilateral perihilar infiltrates and mild cardiomegaly. Please see above. Chest X-Ray 06/21/18 06:00 CONCLUSION: Stable exam. Objective Remarks: GENERAL: 72 yoM orotracheally intubated SKIN: Warm and dry. Chronic venous stasis bilateral lower extremities HEAD: Atraumatic. Normocephalic. EYES: Pupils equal and round. No scleral icterus. No injection or drainage. ENT: No nasal bleeding or discharge. Mucous membranes pink and moist. NECK: Trachea midline. No JVD. CARDIOVASCULAR: Regular rate and rhythm. S1, S2 predose for without murmur RESPIRATORY: Essentially clear anteriorly. No wheezing GASTROINTESTINAL: Abdomen soft, non-tender, slightly protuberant. Hypoactive bowel sounds appreciated MUSCULOSKELETAL: Extremities with trace bilateral lower extremity edema. No obvious deformities. NEUROLOGICAL: Arousable event but not following commands. Moves all 4 extremities spontaneously. Positive gag, cough and corneal reflex. Assessment and Plan - Assessment and Plan Plan: Elderly male with: Chest pain Acute respiratory failure Acute decompensated CHF - systolic and dialstolic EF 40% 2017 B/L carotid Stenosis 40-59% erectile Dysfunction PAD LBBB- chronic Cardiomyopathy - Dilated Positive troponin Atrial fibrillation Diabetes mellitus Hypertension COPD History of pacemaker/defibrillator placement Diabetes mellitus type 2 uncontrolled with hyperglycemia Hyperlipidemia Glaucoma Normocytic anemia Thrombocytopenia Acute kidney injury Hypoalbuminemia Cystitis Plan: Neuro: Sedation with propofol and fentanyl drips maintain RASS -2, daily sedation vacation. Acetaminophen 650 every 6 hours as needed fever. Follow neuro status. Holding gabapentin 300 mg 3 times daily and baclofen 10 mg 3 times daily/home medications. Continue brimonidine 0.15% 3 times daily Cardiovascular: Watch for hypotension. Diuresis with furosemide completed. Serial cardiac enzymes. 2D echo in a.m. Cardiology consult requested in view of decompensated CHF, history of cardiomyopathy and positive troponin. Obtain medical records from patient's character artist in [place] in a.m. currently A. fib appears to be rate controlled. Continue aspirin 162 mg daily. 81 mg at home started on low-dose beta-ana metoprolol tartrate 12.5 mg twice daily. No ENA inhibitor secondary to acute kidney injury.. Currently on heparin drip due to elevated troponin. Holding cilostazol 50 mg twice daily. Resume simvastatin 20 mg daily/40 mg pravastatin substituted. Pulmonary: Continue mechanical ventilation, vent bundle, bronchodilators as needed. Peep +5. Diuresis held due to acute kidney injury. Albuterol/ ipratropium every 4 hours with albuterol aerosols every 2 hours as needed dyspnea GI/liver: N.p.o. for now. NG tube to low intermittent wall suction. If not extubated tomorrow consider tube feeds. Renal/: Strict intake output, monitor and replete electrolytes, follow BUN/ creatinine. Diuresis with Lasix ID: Watch for fever/leukocytosis. Cefepime 2 g IV every 12 hours. Influenza a and B-. Blood cultures, urine and sputum pending. Endocrine: Holding metformin thousand milligrams twice daily, sitagliptin 100 mg daily sliding scale insulin with aspart insulin high protocol for glycemic control. Prophylaxis: PPI/SCDs/heparin drip Condition critical Time spent on critical care excluding procedures 35 minutes. D/W @ bedside
[2018-06-21] MEDS ORDERED: RASS Change Order MISCELLANE ONE (10:00)
[2018-06-21] MEDS: Sod Chloride 0.9% Inj 1,000 ML IV.CONT SCH (10:03)
[2018-06-21] MEDS: Heparin Drip 25,000 UNIT/250 ML BAG IV.CONT PRN (10:04)
[2018-06-21] MEDS: Insulin NovoLOG Aspart Correctional Sugar Inj SQ SCH ×2 (11:22→17:28)
[2018-06-21] MEDS: Brimonidine 0.15% Opth Drops 5 ML Bottle EACH EYE SCH ×2 (13:02→17:48)
[2018-06-21 14:13] LABS: Hematocrit 34.2 % (39.0-51.0); Hemoglobin 11.6 gm/dL (13.0-17.0); Mean Corpuscular Hemoglobin 31.3 pg (27.0-34.0); Mean Corpuscular Volume 91.9 fL (80.0-100.0); Mean Platelet Volume 10.3 fL (7.0-11.0); Platelet Count 70 th/mm3 (150-450); Red Blood Count 3.72 mil/mm3 (4.50-5.90); Red Cell Distribution Width 16.5 % (11.6-17.2); White Blood Count 7.9 th/mm3 (4.0-11.0)
--- NOTE | 2018-06-21 14:48 | MB ---
cc: Nasir Noonan MD DATE: 06/21/2018 HISTORY OF PRESENT ILLNESS: Al is a very pleasant 72-year-old gentleman who is currently intubated, with a long established history of nonischemic cardiomyopathy. He had heart catheterization in 2004 in [place], which showed a 50% right coronary artery stenosis. He has severe peripheral vascular disease in the lower extremities, 50% bilateral carotid stenoses in 2014. His most recent echo was done in 11/2017 which showed an EF of 20%. He has a defibrillator in place. He does smoke. He is down here visiting with his family on vacation. His notes that he is very compliant compulsively with his medications. He has not had any weight gain. He has, however, developed a relatively acute onset worsening dyspnea on exertion with minimal activities of daily living to the point where he presented to the emergency room with respiratory failure requiring intubation. Apparently also he had ventricular fibrillation and his defibrillator went off. Currently, he is intubated and sedated. REVIEW OF SYSTEMS: Obviously unobtainable and further history is obtained from the chart. SOCIAL HISTORY: He smokes tobacco "heavily" according to the chart. He drinks alcohol 2-4 times a month. CURRENT MEDICATIONS IN THE HOSPITAL: 1. Aspirin 162 daily. 2. Fentanyl drip. 3. Heparin bolus and drip. 4. Lopressor 12.5 b.i.d. 5. Potassium supplementation. 6. Pravachol 40 mg daily. 7. Propofol drip. PHYSICAL EXAMINATION: GENERAL: The patient is currently intubated and sedated. VITAL SIGNS: Blood pressure 109/56, pulse 72, respiratory rate 18, sats 97%, temperature 99.7. NECK: Supple. No JVD. No bruit. CARDIOVASCULAR: S1, S2. No murmurs, rubs or gallops. LUNGS: Clear to auscultation bilaterally. ABDOMEN: Soft, nontender, and nondistended with positive bowel sounds. EXTREMITIES: No lower extremity edema. DIAGNOSTIC STUDIES: EKG shows AFib at a rate of 113 beats per minute with a left bundle branch block. Chest x-ray: Bilateral perihilar infiltrates and mild cardiomegaly. Labs: White count is 9.7, hemoglobin 12.0, hematocrit 34.9, platelet count is 67. INR is 1.2. Blood gas initially pH 7.20, pCO2 of 43, pO2 of 62 on 100% oxygen. Currently pH 7.42, pCO2 of 34, pO2 of 91 on 40% oxygen. Sodium 136, potassium 3.6, chloride 102, bicarbonate 22.1, BUN 16, creatinine 1.44, glucose 195, AST 122. Troponin 14.0. BNP 554. Toxicology positive for benzodiazepines. DIAGNOSES: 1. Cbr-DP-ctyiuhkfe myocardial infarction. 2. Respiratory failure. 3. Decompensated congestive heart failure. 4. Nonischemic cardiomyopathy. 5. Left bundle branch block. 6. Atrial fibrillation. 7. Chronic renal insufficiency. 8. Thrombocytopenia. 9. Tobacco abuse. 10. Carotid stenosis. 11. Peripheral vascular disease. 12. Hyperglycemia. 13. Chronic renal insufficiency. 14. Anemia. 15. Lactic acidosis. 16. Hypoxia. IMPRESSION AND RECOMMENDATIONS: The patient is a very high risk patient given the multiple comorbidities detailed above. I have recommended to his and his son that he get a left heart catheterization. His presentation is very suspicious for ischemic etiology, as he has been very compliant with his medicines. He has not had any weight gain and presents as if he has flash pulmonary edema, which is relatively sudden in onset. I will also get his defibrillator interrogated. He does have some management dilemma as with his thrombocytopenia, his atrial fibrillation and non-STEMI. In the short-term, we will keep him on IV heparin. I will need to follow trends and his platelet count and hemoglobin. Also recommend a neurology consult to see if we can get an assessment of his mental status and neurologic prognosis prior to proceeding to catheterization. The patient's condition is guarded. Discussed with Pablo, the RN at the bedside and the family as well. MD JASSON Neely/KELECHI , 02:02 PM , 02:12 PM
--- NOTE | 2018-06-21 14:50 | US ---
EXAM DATE: 06/21/2018 2:46 PM EDT AGE/SEX: 72 years / Male INDICATIONS: Increased BUN/Creatnine. CLINICAL DATA: This is the patient's initial encounter. Patient reports that signs and symptoms have been present for 1 day and indicates a pain score of Nonresponsive. MEDICAL/SURGICAL HISTORY: Chronic obstructive pulmonary disease. Gastroesophageal reflux disea se. Hypertension. Benign prostatic hyperplasia. Congestive heart failure. Chronic bronchitis. Glauc ford. Neuropathy. Pacemaker. Peripheral vascular disease. Diabetes. None. COMPARISON: No prior exams available for comparison. MEASUREMENTS: Right Kidney:__10.7 x 4.4 x 4.9 cm Left Kidney:__10.0 x 4.6 x 4.8 cm FINDINGS: Right Kidney: Increased echotexture. 15 mm upper pole and 17 mm mid zone cysts. No solid mass or hydr onephrosis. Left Kidney: Increased echotexture. 18 mm lower pole cyst. No solid mass or hydronephrosis. Bladder: Nevarez catheter is present. Bladder decompressed grossly unremarkable. Other: None. CONCLUSION: 1. Increased echogenicity of both kidneys typical of chronic parenchymal disease. 2. No evidence of acute obstructive uropathy. 3. Bilateral benign appearing renal cysts. Electronically signed by: Michael Rosario MD 06/21/2018 2:48 PM EDT
--- NOTE | 2018-06-21 15:00 | ECHRPT ---
Indication: Cardiomyopathy, unspecified CONCLUSIONS The left ventricular systolic function is severely reduced with an estimated ejection fraction 20%. Wall thickness is measured at the upper limits of normal. Mildly dilated left ventricle. The left atrial size is moderately dilated. Mild mitral valve regurgitation with 2 small jets. There is mild tricuspid valve regurgitation. The estimated pulmonary arterial pressure is 32.1 mmHg. BP: / HR: Rhythm: Sinus MEASUREMENTS (Male / Female) Normal Values Technical Quality:Good 2D ECHO LV Diastolic Diameter PLAX 5.6 cm 4.2 - 5.9 / 3.9 - 5.3 cm LV Systolic Diameter PLAX 5.0 cm IVS Diastolic Thickness 0.8 cm 0.6 - 1.0 / 0.6 - 0.9 cm LVPW Diastolic Thickness 1.0 cm 0.6 - 1.0 / 0.6 - 0.9 cm LV Relative Wall Thickness 0.3 LVOT Diameter 1.9 cm M-MODE Aortic Root Diameter MM 2.4 cm LA Systolic Diameter MM 5.6 cm LA Ao Ratio MM 2.3 AV Cusp Separation MM 1.6 cm DOPPLER AV Peak Velocity 121.0 cm/s AV Peak Gradient 5.9 mmHg LVOT Peak Velocity 75.0 cm/s LVOT Peak Gradient 2.3 mmHg AV Area Cont Eq pk 1.8 cm MR Peak Velocity 389.5 cm/s MR Peak Gradient 60.7 mmHg Mitral E Point Velocity 107.0 cm/s Mitral A Point Velocity 49.9 cm/s Mitral E to A Ratio 2.1 TR Peak Velocity 235.0 cm/s TR Peak Gradient 22.1 mmHg Right Atrial Pressure 10.0 mmHg Pulmonary Artery Systolic Pressu 32.1 mmHg Right Ventricular Systolic Press 32.1 mmHg PV Peak Velocity 89.6 cm/s PV Peak Gradient 3.2 mmHg FINDINGS LEFT VENTRICLE The left ventricular systolic function is severely reduced with an estimated ejection fraction 20%. Wall thickness is measured at the upper limits of normal. Mildly dilated left ventricle. RIGHT VENTRICLE Normal right ventricular size and systolic function. LEFT ATRIUM The left atrial size is moderately dilated. RIGHT ATRIUM The right atrial size is normal. AORTA The aortic root and proximal ascending aorta are normal in size on limited imaging. MITRAL VALVE Mild mitral valve regurgitation with 2 small jets. AORTIC VALVE Trileaflet aortic valve. No aortic valve stenosis or regurgitation. TRICUSPID VALVE There is mild tricuspid valve regurgitation. The estimated pulmonary arterial pressure is 32.1 mmHg. PULMONARY VALVE No pulmonary valve regurgitation or stenosis. VESSELS The inferior vena cava is normal in size. PERICARDIUM No pericardial effusion. Daquan Shankar MD (Electronically Signed) Final Date:21 June 2018 14:58
--- NOTE | 2018-06-21 15:01 | MB ---
cc: Jaime Johnson MD, PhD DATE: 06/21/2018 REASON FOR CONSULTATION: Mental status change following respiratory arrest. HISTORY OF PRESENT ILLNESS: Mr. Avila is a 72-year-old man who has a viral cardiomyopathy, defibrillator in place [place] developed severe chest pain and shortness of breath. EVAC was called. He was intubated in the field. He is currently on a ventilator in the intensive care unit. He had no focal neurological deficits. He was noted to be very agitated when the sedation is released. Does not follow any commands. No focal deficits. He had the ET tube switched in the hospital as well with tube exchange due to a cuff deflation rupture. Currently is stable. 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 CURRENT MEDICATIONS: 1. Heparin IV. 2. Propofol. 3. Tylenol. 4. Aspirin. 5. Alphagan eyedrops. 6. Cefepime. 7. Chlorhexidine. 8. Fentanyl 9. Prevacid. NEUROLOGIC EXAMINATION: The patient currently is sedated. I did confer with the nurse when his sedation is lifted, he is extremely agitated, tries to pull the ET tube out. Does not follow commands. Blood pressure 109/56, pulse 72, respiratory rate is 18. Cranial nerves are intact. The pupils are 2 mm, symmetric and reactive. Extraocular movements intact. On motor exam, there is no focal deficit. He has got decreased tone in all 4 extremities, but no posturing. Reflexes are symmetric. LABORATORY DATA: The white count is 8500; hemoglobin 12.4; hematocrit 38%; platelet count is 86,000. Sodium is 136, potassium 3.6. The chloride is 102, CO2 is 23.1, BUN is 16, creatinine 1.44, GFR is 42, glucose 195. Troponin 14. PT 11.8, INR 1.8, PTT 25 on admission. IMPRESSION: Probable hypoxic encephalopathy. RECOMMENDATION: We will proceed with a CT scan of the brain for further evaluation. If this CT is normal, then the most likely etiology would be hypoxic encephalopathy. Jaime Johnson MD, PhD VALE/KELECHI , 02:41 PM , 02:50 PM
[2018-06-21 15:21] LABS: Activated Partial Thrombo Time 29.3 sec (24.3-30.1); INR 1.2 Ratio; Prothrombin Time 12.1 sec (9.8-11.6)
[2018-06-21] MEDS: Hypromellose 0.3% Opth Gel 10 GM Bottle EACH EYE SCH (20:01)
--- NOTE | 2018-06-21 20:56 | CT ---
EXAM DATE: 06/21/2018 8:50 PM EDT AGE/SEX: 72 years / Male INDICATIONS: Altered mental status. CLINICAL DATA: This is the patient's initial encounter. Patient reports that signs and symptoms have been present for 1 day and indicates a pain score of Nonresponsive. MEDICAL/SURGICAL HISTORY: Cardiovascular disease. Hypertension. Diabetes. Pacemaker. RADIATION DOSE: 52.13 CTDI (mGy) COMPARISON: No prior exams available for comparison. TECHNIQUE: CT of the head without contrast. Using automated exposure control and adjustment of the mA and/or kV according to patient size, radiation dose was kept as low as reasonably achievable to ob tain optimal diagnostic quality images. DICOM format image data is available electronically for revi ew and comparison. FINDINGS: Cerebrum: The ventricles are normal for age. No evidence of midline shift, mass lesion, hemorrhage or acute infarction. No extraaxial fluid collections are seen. Posterior Fossa: The cerebellum and brainstem are intact. The 4th ventricle is midline. The cerebe llopontine angle is unremarkable. Extracranial: The visualized portion of the orbits is intact. Skull: The calvaria is intact. No evidence of skull fracture. CONCLUSION: 1. Aging brain with mild volume loss. 2. No evidence of acute infarct, hemorrhage, mass or edema. . Electronically signed by: Bran Hackett MD 06/21/2018 8:55 PM EDT
[2018-06-21] MEDS ORDERED: Cilostazol 50 MG Tablet PO SCH (21:00)
[2018-06-21 21:04] LABS: Creatinine,Urine Random 133 mg/dL (27-300)
[2018-06-22] MEDS: Insulin NovoLOG Aspart Correctional Sugar Inj SQ SCH ×4 (01:11→17:26)
[2018-06-22] MEDS: Chlorhexidine Gluconate 2% 1 Pack (2 Cloths) TOPICAL SCH (05:26)
[2018-06-22] MEDS: Propofol 1000 mg/100 ml Inj 1,000 MG/100 ML BOTTLE IV.CONT PRN ×2 (05:26→09:28)
--- NOTE | 2018-06-22 06:19 | XR ---
EXAM DATE: 06/22/2018 6:04 AM EDT AGE/SEX: 72 years / Male INDICATIONS: Shortness of breath. CLINICAL DATA: This is the patient's subsequent encounter. Patient reports that signs and symptoms h ave been present for 2 days and indicates a pain score of Nonresponsive. MEDICAL/SURGICAL HISTORY: Non-responsive. Non-responsive. [place] [facility] [place]. . FINDINGS: Portable AP views of the chest demonstrate a normal-sized cardiac silhouette with calcification of th e aorta. Endotracheal tube and nasogastric tube remain present. Left chest wall cardiac pacing device is present. EKG lines overlie the patient. There is airspace consolidation in the left midlung zone and right lower lung zone similar to yesterday's examination. No pleural effusion or pneumothorax is identified. CONCLUSION: Stable chest x-ray with airspace consolidation in the left midlung zone and right lung base. Electronically signed by: Michael Jasso MD 06/22/2018 6:18 AM EDT
[2018-06-22 07:50] LABS: Hematocrit 32.7 % (39.0-51.0); Mean Corpuscular HGB Conc 33.7 % (32.0-36.0); Mean Corpuscular Hemoglobin 31.5 pg (27.0-34.0); Mean Corpuscular Volume 93.4 fL (80.0-100.0); Mean Platelet Volume 10.4 fL (7.0-11.0); Platelet Count 59 th/mm3 (150-450); Red Blood Count 3.51 mil/mm3 (4.50-5.90); Red Cell Distribution Width 17.3 % (11.6-17.2); White Blood Count 5.2 th/mm3 (4.0-11.0)
[2018-06-22 08:03] LABS: Albumin 2.7 g/dL (3.4-5.0); Anion Gap 11 meq/L (5-15); Aspartate Aminotransferase 98 U/L (15-37); Blood Urea Nitrogen 20 mg/dL (7-18); Calcium 8.4 mg/dL (8.5-10.1); Carbon Dioxide 22.1 meq/L (21.0-32.0); Chloride 106 meq/L (98-107); Glomerular Filtration Rate 51 mL/min (>89); Glucose,Random 132 mg/dL (74-106); Magnesium 1.7 mg/dL (1.5-2.5); Potassium 3.9 meq/L (3.5-5.1); Sodium 139 meq/L (136-145)
[2018-06-22 08:04] LABS: Alanine Aminotransferase 58 U/L (12-78); Cholesterol 115 mg/dL (120-200); Triglycerides 199 mg/dL (42-150)
[2018-06-22 08:13] LABS: Alkaline Phosphatase 68 U/L (45-117); Chol/HDL Ratio 3.04 Ratio; HDL Cholesterol 37.8 mg/dL (40.0-60.0); LDL Cholesterol,Calculated 37 mg/dL (0-99); Phosphorus 3.3 mg/dL (2.5-4.9); Total Protein 6.6 g/dL (6.4-8.2)
[2018-06-22 08:20] LABS: Troponin I 6.11 ng/mL (0.02-0.05)
[2018-06-22] MEDS: Brimonidine 0.15% Opth Drops 5 ML Bottle EACH EYE SCH ×3 (08:25→17:26)
[2018-06-22] MEDS: Metoprolol Tartrate 25 MG Tablet PO SCH ×2 (08:25→20:02)
[2018-06-22] MEDS: Hypromellose 0.3% Opth Gel 10 GM Bottle EACH EYE SCH ×2 (08:25→20:03)
[2018-06-22] MEDS: Sod Chloride 0.9% Inj 1,000 ML IV.CONT SCH (09:29)
--- NOTE | 2018-06-22 11:35 | P.PNCA ---
Subjective Interval history: intubated, sedated Physical Exam Vital signs: Vital Signs 06/21/18 11:45 06/21/18 12:00 06/21/18 12:15 Temperature 99.7 F H Pulse Rate 74 72 71 Respiratory Rate 16 16 16 Blood Pressure 99/56 L 102/57 L 108/55 L Pulse Oximetry 97 97 97 06/21/18 12:21 06/21/18 12:30 06/21/18 12:45 Temperature Pulse Rate 71 68 71 Respiratory Rate 16 16 15 Blood Pressure 100/57 L 104/59 L Pulse Oximetry 98 98 98 06/21/18 13:00 06/21/18 13:15 06/21/18 13:30 Temperature Pulse Rate 72 72 72 Respiratory Rate 16 29 H 18 Blood Pressure 105/57 L 105/61 109/56 L Pulse Oximetry 97 97 97 06/21/18 14:00 06/21/18 14:30 06/21/18 14:45 Temperature Pulse Rate 69 76 78 Respiratory Rate 16 16 Blood Pressure 108/60 111/61 Pulse Oximetry 95 96 06/21/18 15:00 06/21/18 15:02 06/21/18 15:03 Temperature Pulse Rate 67 67 68 Respiratory Rate 16 17 19 Blood Pressure 73/43 L 75/44 L 71/48 L Pulse Oximetry 93 L 94 L 94 L 06/21/18 15:05 06/21/18 15:10 06/21/18 15:15 Temperature Pulse Rate 67 67 67 Respiratory Rate 16 16 18 Blood Pressure 79/51 L 77/48 L 85/52 L Pulse Oximetry 94 L 93 L 94 L 06/21/18 15:20 06/21/18 15:25 06/21/18 15:30 Temperature Pulse Rate 67 67 69 Respiratory Rate 15 24 16 Blood Pressure 88/53 L 95/50 L 99/54 L Pulse Oximetry 94 L 95 96 06/21/18 15:35 06/21/18 15:40 06/21/18 15:45 Temperature Pulse Rate 71 69 69 Respiratory Rate 16 16 16 Blood Pressure 102/61 100/58 L 101/55 L Pulse Oximetry 96 96 97 06/21/18 15:50 06/21/18 15:55 06/21/18 16:00 Temperature Pulse Rate 69 68 68 Respiratory Rate 16 16 16 Blood Pressure 101/57 L 99/54 L 99/56 L Pulse Oximetry 97 97 97 06/21/18 16:05 06/21/18 16:10 06/21/18 16:14 Temperature 98.6 F Pulse Rate 68 68 69 Respiratory Rate 16 16 16 Blood Pressure 100/58 L 101/55 L Pulse Oximetry 97 97 98 06/21/18 16:15 06/21/18 16:20 06/21/18 16:25 Temperature Pulse Rate 68 69 70 Respiratory Rate 16 16 16 Blood Pressure 100/59 L 105/57 L 101/52 L Pulse Oximetry 97 98 98 06/21/18 16:30 06/21/18 16:45 06/21/18 17:00 Temperature Pulse Rate 67 70 71 Respiratory Rate 16 16 16 Blood Pressure 99/53 L 106/58 L 110/56 L Pulse Oximetry 98 99 99 06/21/18 17:15 06/21/18 17:30 06/21/18 17:45 Temperature Pulse Rate 73 71 74 Respiratory Rate 16 16 16 Blood Pressure 113/59 L 108/57 L 116/61 Pulse Oximetry 100 100 100 06/21/18 18:00 06/21/18 18:15 06/21/18 18:30 Temperature Pulse Rate 75 72 74 Respiratory Rate 16 16 16 Blood Pressure 114/62 107/57 L 113/62 Pulse Oximetry 100 98 99 06/21/18 18:45 06/21/18 19:00 06/21/18 19:15 Temperature Pulse Rate 69 71 71 Respiratory Rate 16 16 12 Blood Pressure 101/58 L 110/57 L 112/59 L Pulse Oximetry 99 98 99 06/21/18 19:30 06/21/18 19:45 06/21/18 20:00 Temperature 101.2 F H Pulse Rate 68 69 74 Respiratory Rate 14 11 L 16 Blood Pressure 99/55 L 106/55 L 112/59 L Pulse Oximetry 98 100 98 06/21/18 20:15 06/21/18 20:31 06/21/18 20:45 Temperature Pulse Rate 72 71 74 Respiratory Rate 16 16 30 H Blood Pressure 94/52 L 101/50 L 103/56 L Pulse Oximetry 93 L 100 99 06/21/18 21:00 06/21/18 21:01 06/21/18 21:03 Temperature Pulse Rate 70 69 Respiratory Rate 27 H 16 Blood Pressure 101/54 L 101/54 L Pulse Oximetry 97 95 100 06/21/18 21:17 06/21/18 21:29 06/21/18 21:30 Temperature 100.4 F H Pulse Rate 67 Respiratory Rate 16 16 Blood Pressure 94/51 L Pulse Oximetry 95 95 06/21/18 22:00 06/21/18 22:30 06/21/18 23:00 Temperature Pulse Rate 67 63 63 Respiratory Rate 16 16 16 Blood Pressure 98/51 L 98/52 L 93/54 L Pulse Oximetry 97 98 98 06/21/18 23:30 06/22/18 00:00 06/22/18 00:30 Temperature 99.6 F Pulse Rate 62 62 65 Respiratory Rate 16 16 16 Blood Pressure 95/52 L 95/54 L 103/58 L Pulse Oximetry 99 99 100 06/22/18 01:00 06/22/18 01:25 06/22/18 01:30 Temperature Pulse Rate 66 66 62 Respiratory Rate 16 16 16 Blood Pressure 104/59 L 92/51 L Pulse Oximetry 100 100 99 06/22/18 02:00 06/22/18 02:30 06/22/18 03:00 Temperature Pulse Rate 61 63 64 Respiratory Rate 16 16 16 Blood Pressure 87/50 L 94/52 L 96/53 L Pulse Oximetry 97 98 99 06/22/18 03:30 06/22/18 04:00 06/22/18 05:00 Temperature 100.1 F H Pulse Rate 64 66 69 Respiratory Rate 16 16 16 Blood Pressure 97/53 L 99/55 L 94/55 L Pulse Oximetry 99 99 91 L 06/22/18 05:16 06/22/18 05:30 06/22/18 06:00 Temperature Pulse Rate 66 67 65 Respiratory Rate 16 16 16 Blood Pressure 100/52 L 95/51 L Pulse Oximetry 94 L 95 96 06/22/18 06:30 06/22/18 07:00 06/22/18 07:28 Temperature Pulse Rate 66 68 66 Respiratory Rate 16 16 16 Blood Pressure 105/53 L 110/56 L Pulse Oximetry 98 99 06/22/18 07:30 06/22/18 08:00 06/22/18 08:30 Temperature 99.4 F Pulse Rate 66 69 63 Respiratory Rate 16 16 16 Blood Pressure 106/56 L 113/58 L 106/53 L Pulse Oximetry 99 99 98 06/22/18 10:00 06/22/18 11:18 Temperature Pulse Rate 70 69 Respiratory Rate 16 Blood Pressure Pulse Oximetry Intake & Output 06/21/18 06/22/18 06/22/18 18:59 06:59 18:59 Intake Total 200 / 200 1643 / 1643 254 / 254 Output Total 300 / 300 530 / 530 Balance -100 / -100 1113 / 1113 254 / 254 Weight 74.5 kg Intake: IV 200 / 200 1523 / 1523 254 / 254 Heparin/D5W 25,000 U/250 mL 25, 171 / 171 000 unit In 250 ml @ 800 UNITS/ HR 8 mls/hr IV.CONT TITRATE PRN Rx#:[id number] Diprivan 1000 mg/100 ml Inj 1, 100 / 100 200 / 200 100 / 100 000 mg In 100 ml @ 5 MCG/KG/MIN 2.1 mls/hr IV.CONT TITRATE PRN Rx#:[id number] NS Inj 1,000 ML @ 42 mls/hr IV. 946 / 946 54 / 54 CONT .[id number] [facility] Rx#:[id number] Maxipime Inj 2,000 MG In NS Inj 100 / 100 100 / 100 100 / 100 100 ML @ 200 mls/hr IV.SIG Q12H [facility] Rx#:[id number] fentaNYL 10 mcg/mL Premix Drip 106 / 106 2,500 mcg In 250 ml @ 50 MCG/HR 5 mls/hr IV.SIG TITRATE PRN Rx #:[id number] Oral 0 / 0 Water Bolus Amount 120 / 120 Output: Urine 300 / 300 Urine Amount (Catheter) 500 / 500 Indwelling Urethral Catheter 500 / 500 Gastric Drainage 30 / 30 Left Nare Nasogastric Tube 30 / 30 Other: # Bowel Movements 0 0 - Urinary Catheter Management Indwelling Urethral Catheter Cath placed during this visit: yes Reason for continuing: Hourly intake/output Insertion date: 06/20/18 Insertion time: 21:24 Assessment and Plan - Assessment (1) Cardiomyopathy Code(s): I42.9 - Cardiomyopathy, unspecified Status: Acute (2) Cardiomyopathy Code(s): I42.9 - Cardiomyopathy, unspecified Status: Acute (3) PVD (peripheral vascular disease) Code(s): I73.9 - Peripheral vascular disease, unspecified Status: Acute (4) PVD (peripheral vascular disease) Code(s): I73.9 - Peripheral vascular disease, unspecified Status: Acute (5) Tobacco abuse Code(s): Z72.0 - Tobacco use Status: Acute (6) Respiratory failure Code(s): J96.90 - Respiratory failure, unspecified, unspecified whether with hypoxia or hypercapnia Status: Acute (7) Non-ST elevated myocardial infarction (non-STEMI) Code(s): I21.4 - Non-ST elevation (NSTEMI) myocardial infarction Status: Acute (8) Pulmonary edema cardiac cause Code(s): I50.1 - Left ventricular failure, unspecified Status: Acute - Plan 1.) NSTEMI - respiratory failure, anoxic encephalopathy, baseline ef=20%; continue supportive care with aspirin, heparin, vent; consider cath if/when neurologic recovery occurs, rec palliative care consult, d/w nursePablo (6) Respiratory failure Qualifiers: Chronicity: acute Respiratory failure complication: hypoxia Qualified Code(s ): J96.01 - Acute respiratory failure with hypoxia
[2018-06-22] MEDS: Dexmedetomidine Inj 200 MCG in Sodium Chlor 0.9% Inj 48 ML IV.CONT PRN ×5 (11:54→23:24)
[2018-06-22] MEDS: Heparin Drip 25,000 UNIT/250 ML BAG IV.CONT PRN (12:05)
--- NOTE | 2018-06-22 14:17 | P.CONPAL ---
Consult Service: Palliative Care Requesting Physician: Nasir Noonan Reason for Consult: a. To assist with evaluation and management of symptoms including: dyspnea, pain b. To assist medical decision maker(s) with: better understanding of current medical conditions; weighing benefits/burdens of medical treatment options; making medical treatment decisions. Primary Care Provider: UNKNOWN History of Present Illness History of Present Illness: -- draft This is a 72 yo male with hx viral cardiomyopathy, defibrillator placement, CHF , COPD who presented to ER via EMS 06[place]20 [place]. When EMS arrived he was in respiratory distress, they asked if he wanted to be intubated and he nodded yes. He was intubated in field and then reintubated in ER after air leak discovered. On arrival his sats were in 60's. His troponin was 0.14, BND 554. CXR showed bilat infiltrates, cardiomegaly. Head CT no acute findings. Echo showed EF < 20%. Transfer[facility] to [facility] Troponin up to 14 on 06/21. Cardiology consulted, diagnosed NSTEMI, decompensated CHF. Cardiology recommended left heart cath. Neurology consulted , feel pt has probable hypoxic encephalopathy. Platelets have been trending down , 86 on arrival and today 59. Pt extubated just prior to my eval. and daughter at bedside. Pt somewhat agitated, has audible upper respiratory congestion. Does not appear to be in pain. He opens eyes to his name but does not follow commands. Function/Cognitive Trajectory: reports in last month pt has had increasing activity intolerance, frequent lower extremity muscle cramps. She has noted some occasional short term memory deficit, feels sometimes he has difficulty understanding her but isn't sure if its his hearing deficit or confusion. Review of Systems ROS pt limited d/t current mental status. completed to best of my ability from chart, family, RN unobtainable due to mental status Constitutional: Reports fatigue, Denies weight gain Eyes: Denies blind spots Ears, Nose, Mouth, and Throat: Reports abnormal hearing Cardiovascular: Reports chest pain, Reports leg pain with activity, Reports shortness of breath with activity Respiratory: Reports cough, Reports shortness of breath, Reports shortness of breath with activity Musculoskeletal: Reports muscle cramps, Reports muscle weakness Skin/Breast: Denies yellowing of the skin Neurologic: Reports memory loss Psychiatric: Reports anxiety PMFSH - History History Provided By: Patient, Family Member, Medical Record - Medical History Medical History: Medical History (Last Updated 06/22/18 @ 16:59 by DALTON Christine) BPH (benign prostatic hyperplasia) CHF (congestive heart failure) COPD (chronic obstructive pulmonary disease) Cardiac defibrillator in place Chronic bronchitis GERD (gastroesophageal reflux disease) Glaucoma Hypertension Neuropathy PVD (peripheral vascular disease) Pacemaker Surgical history unknown Type 2 diabetes mellitus - Family History Family History: Family History (Last Updated 06/22/18 @ 16:59 by DALTON Christine) Other Diabetes Heart disease - Tobacco History Second Hand Smoke Exposure: Yes Tobacco Use In Past 30 Days: Yes Smoking Status: Heavy tobacco smoker Tobacco Type: Cigarettes Packs Per Day: 1 - Alcohol History How Often Do You Have a Drink Containing Alcohol: 2 to 4 times a month - Substance Use History Substance History: No History of Abuse - Travel History Recent Travel in the [place] Within the Last 8 Weeks: Yes Recent Travel Out of the Country Within the Last 8 Weeks: No - Immunization History Tetanus Immunization: Unable to Assess Hx Influenza Vaccine This Season: Unable to Assess Medications and Allergies Active Medications: Active Medications Acetaminophen (Tylenol Liq) 650 mg NG/OG Q6H PRN PRN Reason: FEVER Last Admin: 06/21/18 20:00 Dose: 650 mg Albuterol (Duoneb Neb ([facility])) 1 ampul NEB Q4HR NEB [facility] Last Admin: 06/22/18 11:18 Dose: 1 ampul Artificial Tears (Genteal Severe Dry Eye Relief 0.3% Opth Gel) 1 drops EACH EYE BID [facility] Last Admin: 06/22/18 08:25 Dose: 1 drops Aspirin (Aspirin Chew) 162 mg PO DAILY [facility] Last Admin: 06/22/18 08:25 Dose: 162 mg Brimonidine Tartrate (Alphagan P 0.15% Opth Drops) 1 drops EACH EYE TID [facility] Last Admin: 06/22/18 13:23 Dose: 1 drops Chlorhexidine Gluconate (Chlorhexidine 2% Cloth) 3 pack TOPICAL DAILY@0400 MONICA Stop: 06/26/18 03:59 Last Admin: 06/22/18 05:26 Dose: 3 pack Chlorhexidine Gluconate (Chlorhexidine 2% Cloth) 3 pack TOPICAL DAILY@0400 PRN PRN Reason: Extra cloth needed Stop: 06/26/18 03:59 Dextrose (D50w Vial) 50 ml IV.PUSH UNSCH PRN PRN Reason: PER HYPOGLYCEMIA PROTOCOL Glucagon (Glucagon Inj) 1 mg OTHER PRN PRN PRN Reason: for Hypoglycemia Protocol Propofol (Diprivan 1000 Mg/100 Ml Inj) 1,000 mg in 100 mls @ 2.1 mls/hr IV.CONT TITRATE PRN; Protocol PRN Reason: Per Protocol Last Titration: 06/22/18 09:51 Dose: 30 mcg/kg/min, 12.6 mls/hr Heparin Sodium/Dextrose (Heparin/D5w 25,000 U/250 Ml) 25,000 unit in 250 mls @ 8 mls/hr IV.CONT TITRATE PRN; Protocol PRN Reason: Per Protocol Last Admin: 06/22/18 12:05 Dose: 1,100 units/hr, 11 mls/hr Fentanyl (Fentanyl 10 Mcg/Ml Premix Drip) 2,500 mcg in 250 mls @ 5 mls/hr IV.SIG TITRATE PRN; Protocol PRN Reason: Per Protocol Last Titration: 06/22/18 06:00 Dose: 50 mcg/hr, 5 mls/hr Magnesium Sulfate Inj 4 gm/ (Sodium Chloride) 100 mls @ 50 mls/hr IV.SIG UNSCH PRN PRN Reason: For Magnesium 0.9 - 1.1 mg/dL Magnesium Sulfate Inj 2 gm/ (Sodium Chloride) 100 mls @ 50 mls/hr IV.SIG UNSCH PRN PRN Reason: For Magnesium 1.2 - 1.6 mg/dL Potassium Chloride (Kcl 40 Meq Premix Inj) 40 meq in 100 mls @ 50 mls/hr IV.SIG Q2H PRN PRN Reason: For Potassium 2.8 - 3.2 mEq/L Potassium Chloride (Kcl 20 Meq Premix Inj) 20 meq in 100 mls @ 50 mls/hr IV.SIG Q2H PRN PRN Reason: For Potassium 3.3 - 3.5 mEq/L Potassium Chloride (Kcl 20 Meq Premix Inj) 20 meq in 100 mls @ 50 mls/hr IV.SIG Q2H PRN PRN Reason: For Potassium 2.8 - 3.2 mEq/L Potassium Phosphate 30 mmol/ (Sodium Chloride) 260 mls @ 42 mls/hr IV.SIG UNSCH PRN PRN Reason: SEE LABEL COMMENTS Sodium Phosphate 30 mmol/ (Sodium Chloride) 260 mls @ 42 mls/hr IV.SIG UNSCH PRN PRN Reason: For Phosphorus < 2.5 mg/dL Potassium Chloride (Kcl 40 Meq Premix Inj) 40 meq in 100 mls @ 25 mls/hr IV.SIG UNSCH PRN PRN Reason: For Potassium 3.3 - 3.5 mEq/L Sodium Chloride (Ns Inj) 1,000 mls @ 42 mls/hr IV.CONT .[id number] [facility] Last Admin: 06/22/18 09:29 Dose: 42 mls/hr Cefepime HCl 2,000 mg/ Sodium (Chloride) 100 mls @ 200 mls/hr IV.SIG Q12H [facility] Last Infusion: 06/22/18 10:10 Dose: Infused Dexmedetomidine HCl 200 mcg/ (Sodium Chloride) 50 mls @ 3.72 mls/hr IV.CONT TITRATE PRN; Protocol PRN Reason: Per Protocol Last Admin: 06/22/18 11:54 Dose: 0.2 mcg/kg/hr, 3.72 mls/hr Insulin Aspart (Novolog Insulin Correctional Sugar Inj) 0 unit SQ Q6HR [facility]; Protocol Last Admin: 06/22/18 13:19 Dose: Not Given Lansoprazole (Prevacid Solutab) 30 mg NG/OG DAILY [facility] Last Admin: 06/22/18 08:25 Dose: 30 mg Magnesium Oxide (Mag-Ox) 800 mg PO UNSCH PRN PRN Reason: For Magnesium 1.2 - 1.6 mg/dL Metoprolol Tartrate (Lopressor) 12.5 mg PO BID [facility] Last Admin: 06/22/18 08:25 Dose: 12.5 mg Miscellaneous (Pill Splitter) 1 each OTHER UNSCH PRN PRN Reason: SEE LABEL COMMENTS Potassium Bicarb/Potassium Chloride (K-Lyte Cl Eff) 50 meq PO UNSCH PRN PRN Reason: For Potassium 3.3 - 3.5 mEq/L Potassium Phosphate (K-Phos Original) 2,000 mg PO Q4H PRN PRN Reason: Phosphorus Less Than 2.5 mg/dL Potassium Phosphate (K-Phos Original) 2,000 mg PO UNSCH PRN PRN Reason: SEE LABEL COMMENTS Pravastatin Sodium (Pravachol) 40 mg PO DAILY@1800 [facility] Last Admin: 06/21/18 17:48 Dose: 40 mg Sodium Chloride (Ns Flush) 2 ml IV.FLUSH PRN PRN PRN Reason: FLUSH AFTER USING IV ACCESS Allergies Allergy/AdvReac Type Severity Reaction Status Date / Time bee venom protein (honey bee) Allergy Difficulty Verified 06/20/18 22:04 [Bee sting] Breathing hydromorphone Allergy Nausea/Vomi Verified 06/20/18 22:04 ting pregabalin [From Lyrica] Allergy Anaphylaxis Verified 06/20/18 22:04 Home Medications Medication Instructions Recorded Confirmed Type aspirin 81 mg PO DAILY 06/20/18 06/20/18 History baclofen 20 mg PO TID 06/20/18 06/20/18 History brimonidine 1 drp OPHTHALMIC (EYE) TID 06/20/18 06/20/18 History cilostazol 50 mg PO BID 06/20/18 06/20/18 History gabapentin 300 mg PO TID 06/20/18 06/20/18 History metformin 1,000 mg PO BID 06/20/18 06/20/18 History omeprazole 20 mg PO DAILY 06/20/18 06/20/18 History simvastatin 20 mg PO QPM 06/20/18 06/20/18 History sitagliptin [Januvia] 100 mg PO DAILY 06/20/18 06/20/18 History umeclidinium-vilanterol [Anoro 1 inh INHALATION Q24H 06/21/18 06/21/18 History Ellipta] Advance Directives Living Will: No Healthcare Surrogate: No Physical Exam Vital Signs: Vital Signs - 24 hr 06/21/18 14:00 06/21/18 14:30 06/21/18 14:45 Temperature Pulse Rate 69 76 78 Respiratory Rate 16 16 Blood Pressure 108/60 111/61 Pulse Oximetry 95 96 06/21/18 15:00 06/21/18 15:02 06/21/18 15:03 Temperature Pulse Rate 67 67 68 Respiratory Rate 16 17 19 Blood Pressure 73/43 L 75/44 L 71/48 L Pulse Oximetry 93 L 94 L 94 L 06/21/18 15:05 06/21/18 15:10 06/21/18 15:15 Temperature Pulse Rate 67 67 67 Respiratory Rate 16 16 18 Blood Pressure 79/51 L 77/48 L 85/52 L Pulse Oximetry 94 L 93 L 94 L 06/21/18 15:20 06/21/18 15:25 06/21/18 15:30 Temperature Pulse Rate 67 67 69 Respiratory Rate 15 24 16 Blood Pressure 88/53 L 95/50 L 99/54 L Pulse Oximetry 94 L 95 96 06/21/18 15:35 06/21/18 15:40 06/21/18 15:45 Temperature Pulse Rate 71 69 69 Respiratory Rate 16 16 16 Blood Pressure 102/61 100/58 L 101/55 L Pulse Oximetry 96 96 97 06/21/18 15:50 06/21/18 15:55 06/21/18 16:00 Temperature Pulse Rate 69 68 68 Respiratory Rate 16 16 16 Blood Pressure 101/57 L 99/54 L 99/56 L Pulse Oximetry 97 97 97 06/21/18 16:05 06/21/18 16:10 06/21/18 16:14 Temperature 98.6 F Pulse Rate 68 68 69 Respiratory Rate 16 16 16 Blood Pressure 100/58 L 101/55 L Pulse Oximetry 97 97 98 06/21/18 16:15 06/21/18 16:20 06/21/18 16:25 Temperature Pulse Rate 68 69 70 Respiratory Rate 16 16 16 Blood Pressure 100/59 L 105/57 L 101/52 L Pulse Oximetry 97 98 98 06/21/18 16:30 06/21/18 16:45 06/21/18 17:00 Temperature Pulse Rate 67 70 71 Respiratory Rate 16 16 16 Blood Pressure 99/53 L 106/58 L 110/56 L Pulse Oximetry 98 99 99 06/21/18 17:15 06/21/18 17:30 06/21/18 17:45 Temperature Pulse Rate 73 71 74 Respiratory Rate 16 16 16 Blood Pressure 113/59 L 108/57 L 116/61 Pulse Oximetry 100 100 100 06/21/18 18:00 06/21/18 18:15 06/21/18 18:30 Temperature Pulse Rate 75 72 74 Respiratory Rate 16 16 16 Blood Pressure 114/62 107/57 L 113/62 Pulse Oximetry 100 98 99 06/21/18 18:45 06/21/18 19:00 06/21/18 19:15 Temperature Pulse Rate 69 71 71 Respiratory Rate 16 16 12 Blood Pressure 101/58 L 110/57 L 112/59 L Pulse Oximetry 99 98 99 06/21/18 19:30 06/21/18 19:45 06/21/18 20:00 Temperature 101.2 F H Pulse Rate 68 69 74 Respiratory Rate 14 11 L 16 Blood Pressure 99/55 L 106/55 L 112/59 L Pulse Oximetry 98 100 98 06/21/18 20:15 06/21/18 20:31 06/21/18 20:45 Temperature Pulse Rate 72 71 74 Respiratory Rate 16 16 30 H Blood Pressure 94/52 L 101/50 L 103/56 L Pulse Oximetry 93 L 100 99 06/21/18 21:00 06/21/18 21:01 06/21/18 21:03 Temperature Pulse Rate 70 69 Respiratory Rate 27 H 16 Blood Pressure 101/54 L 101/54 L Pulse Oximetry 97 95 100 06/21/18 21:17 06/21/18 21:29 06/21/18 21:30 Temperature 100.4 F H Pulse Rate 67 Respiratory Rate 16 16 Blood Pressure 94/51 L Pulse Oximetry 95 95 06/21/18 22:00 06/21/18 22:30 06/21/18 23:00 Temperature Pulse Rate 67 63 63 Respiratory Rate 16 16 16 Blood Pressure 98/51 L 98/52 L 93/54 L Pulse Oximetry 97 98 98 06/21/18 23:30 06/22/18 00:00 06/22/18 00:30 Temperature 99.6 F Pulse Rate 62 62 65 Respiratory Rate 16 16 16 Blood Pressure 95/52 L 95/54 L 103/58 L Pulse Oximetry 99 99 100 06/22/18 01:00 06/22/18 01:25 06/22/18 01:30 Temperature Pulse Rate 66 66 62 Respiratory Rate 16 16 16 Blood Pressure 104/59 L 92/51 L Pulse Oximetry 100 100 99 06/22/18 02:00 06/22/18 02:30 06/22/18 03:00 Temperature Pulse Rate 61 63 64 Respiratory Rate 16 16 16 Blood Pressure 87/50 L 94/52 L 96/53 L Pulse Oximetry 97 98 99 06/22/18 03:30 06/22/18 04:00 06/22/18 05:00 Temperature 100.1 F H Pulse Rate 64 66 69 Respiratory Rate 16 16 16 Blood Pressure 97/53 L 99/55 L 94/55 L Pulse Oximetry 99 99 91 L 06/22/18 05:16 06/22/18 05:30 06/22/18 06:00 Temperature Pulse Rate 66 67 65 Respiratory Rate 16 16 16 Blood Pressure 100/52 L 95/51 L Pulse Oximetry 94 L 95 96 06/22/18 06:30 06/22/18 07:00 06/22/18 07:28 Temperature Pulse Rate 66 68 66 Respiratory Rate 16 16 16 Blood Pressure 105/53 L 110/56 L Pulse Oximetry 98 99 06/22/18 07:30 06/22/18 08:00 06/22/18 08:30 Temperature 99.4 F Pulse Rate 66 69 63 Respiratory Rate 16 16 16 Blood Pressure 106/56 L 113/58 L 106/53 L Pulse Oximetry 99 99 98 06/22/18 09:00 06/22/18 09:30 06/22/18 10:00 Temperature Pulse Rate 63 65 65 Respiratory Rate 16 16 16 Blood Pressure 97/51 L 106/52 L 108/53 L Pulse Oximetry 98 99 97 06/22/18 10:31 06/22/18 11:00 06/22/18 11:18 Temperature Pulse Rate 90 71 69 Respiratory Rate 29 H 16 16 Blood Pressure 111/57 L 100/50 L Pulse Oximetry 95 96 06/22/18 11:30 06/22/18 12:00 06/22/18 12:18 Temperature Pulse Rate 68 70 Respiratory Rate 16 16 16 Blood Pressure 104/51 L 104/52 L Pulse Oximetry 98 97 98 06/22/18 12:30 Temperature 100.1 F H Pulse Rate 65 Respiratory Rate 16 Blood Pressure 90/53 L Pulse Oximetry 92 L I&O: Intake & Output 06/20/18 06/21/18 06/22/18 06/23/18 06:59 06:59 06:59 06:59 Intake Total 100 / 100 1843 / 1843 333 / 333 Output Total 300 / 300 830 / 830 Balance -200 / -200 1013 / 1013 333 / 333 Weight 67.7 kg 74.5 kg Physical Exam: CONSTITUTIONAL/GENERAL: This is an adequately nourished patient, mildly agitated. TUBES/LINES/DRAINS: chen, BATSHEVA SKIN: No jaundice, rashes, or lesions. No wounds seen anteriorly. Skin temperature appropriate. Not diaphoretic. HEAD: Atraumatic. Normocephalic. EYES: Pupils constricted. Extraocular motions intact. No scleral icterus. No injection or drainage. Fundi not examined. ENT: hearing grossly normal. Nose without bleeding or purulent drainage. NECK: Trachea midline. CARDIOVASCULAR: Tachycardic without murmurs, gallops, or rubs. No JVD. Peripheral pulses symmetric. RESPIRATORY/CHEST: Symmetric, unlabored respirations. coarse sounds. Breath sounds equal bilaterally. GASTROINTESTINAL: Abdomen soft, nondistended. No hepato-splenomegaly, or palpable masses. No guarding. Bowel sounds present. GENITOURINARY: Without palpable bladder distension. Chen catheter in place. MUSCULOSKELETAL: Extremities without clubbing, cyanosis, or edema. No mottling or clubbing. NEUROLOGICAL: opens eyes to name, does not follow commands. Motor and sensory grossly within normal limits. Follows commands. Moves all extremities. PSYCHIATRIC: unable to assess, just extubated Diagnostic Tests Laboratory: Laboratory Results - last 72 hr 06/20/18 06/20/18 06/20/18 20:50 20:50 20:50 WBC 8.5 RBC 4.05 L Hgb 12.5 L Hct 38.4 L MCV 94.8 MCH 30.8 MCHC 32.5 RDW 16.6 Plt Count 86 L MPV 10.0 Prelim Diff (Auto) Slide review pending Neut % (Auto) 60.0 Lymph % (Auto) 32.2 Brooke % (Auto) 5.6 Eos % (Auto) 1.5 Baso % (Auto) 0.7 Neut # (Auto) 5.1 Lymph # (Auto) 2.7 Brooke # (Auto) 0.5 Eos # (Auto) 0.1 Baso # (Auto) 0.1 WBC Differential . Diff Scan Auto diff confirmed Differential Comment . Platelet Estimate Low L Platelet Morphology Enlarged H Smear Path Review PT 11.8 H INR 1.2 APTT 25.1 Puncture Site Patient Temperature O2 Saturation ABG pH ABG pCO2 ABG pO2 ABG HCO3 ABG O2 Content ABG Base Excess ABG Methemoglobin Carlos Test Hemoglobin Carboxyhemoglobin O2 Delivery Device Vent Setting Inspired O2 Critical Value Sodium 136 Potassium 3.4 L Chloride 103 Carbon Dioxide 14.2 L Anion Gap 19 H BUN 12 Creatinine 1.24 Estimated GFR 50 L POC Glucose Random Glucose 231 H Lactic Acid Calcium 8.3 L Phosphorus Magnesium Total Bilirubin 0.5 AST 67 H ALT 65 Alkaline Phosphatase 87 Total Creatine Kinase 78 Troponin I 0.14 H B-Natriuretic Peptide Total Protein 7.4 Albumin 3.3 L Triglycerides Cholesterol LDL Cholesterol, Calc HDL Cholesterol Cholesterol/HDL Ratio TSH Urine Color Urine Clarity Urine pH Ur Specific [place] Urine Protein Urine Glucose (UA) Urine Ketones Urine Occult Blood Urine Nitrate Urine Bilirubin Urine Urobilinogen Ur Leukocyte Esterase Urine RBC Urine WBC Ur Squamous Epith Cells Urine Bacteria Hyaline Casts Micro UA Comment Urine Culture Comments Ur Random Creatinine Ur Random Sodium Nasal Screen MRSA (PCR) Urine Opiates Screen Ur Barbiturates Screen Ur Amphetamines Screen U Benzodiazepines Scrn Urine Cocaine Screen U Cannabinoids Screen 06/20/18 06/20/18 06/20/18 20:50 20:58 21:15 WBC RBC Hgb Hct MCV MCH MCHC RDW Plt Count MPV Prelim Diff (Auto) Neut % (Auto) Lymph % (Auto) Brooke % (Auto) Eos % (Auto) Baso % (Auto) Neut # (Auto) Lymph # (Auto) Brooke # (Auto) Eos # (Auto) Baso # (Auto) WBC Differential Diff Scan Differential Comment Platelet Estimate Platelet Morphology Smear Path Review PT INR APTT Puncture Site Left radial Patient Temperature 98.6 O2 Saturation 81 L* ABG pH 7.20 L* ABG pCO2 43 H ABG pO2 62 ABG HCO3 16 L* ABG O2 Content 15.2 ABG Base Excess -10.6 L ABG Methemoglobin 0.9 Carlos Test Present Hemoglobin 13.3 Carboxyhemoglobin 3.8 O2 Delivery Device Ventilator Vent Setting Prvc 14/550/5+/1.0it Inspired O2 100 Critical Value Yes Sodium Potassium Chloride Carbon Dioxide Anion Gap BUN Creatinine Estimated GFR POC Glucose Random Glucose Lactic Acid Calcium Phosphorus Magnesium Total Bilirubin AST ALT Alkaline Phosphatase Total Creatine Kinase Troponin I B-Natriuretic Peptide 554 H Total Protein Albumin Triglycerides Cholesterol LDL Cholesterol, Calc HDL Cholesterol Cholesterol/HDL Ratio TSH Urine Color Urine Clarity Urine pH Ur Specific [place] Urine Protein Urine Glucose (UA) Urine Ketones Urine Occult Blood Urine Nitrate Urine Bilirubin Urine Urobilinogen Ur Leukocyte Esterase Urine RBC Urine WBC Ur Squamous Epith Cells Urine Bacteria Hyaline Casts Micro UA Comment Urine Culture Comments Ur Random Creatinine Ur Random Sodium Nasal Screen MRSA (PCR) Urine Opiates Screen Neg Ur Barbiturates Screen Neg Ur Amphetamines Screen Neg U Benzodiazepines Scrn Pos H Urine Cocaine Screen Neg U Cannabinoids Screen Neg 0806/20/18 06/20/18 21:15 23:35 23:36 WBC RBC Hgb Hct MCV MCH MCHC RDW Plt Count MPV Prelim Diff (Auto) Neut % (Auto) Lymph % (Auto) Brooke % (Auto) Eos % (Auto) Baso % (Auto) Neut # (Auto) Lymph # (Auto) Brooke # (Auto) Eos # (Auto) Baso # (Auto) WBC Differential Diff Scan Differential Comment Platelet Estimate Platelet Morphology Smear Path Review PT INR APTT Puncture Site Patient Temperature O2 Saturation ABG pH ABG pCO2 ABG pO2 ABG HCO3 ABG O2 Content ABG Base Excess ABG Methemoglobin Carlos Test Hemoglobin Carboxyhemoglobin O2 Delivery Device Vent Setting Inspired O2 Critical Value Sodium Potassium Chloride Carbon Dioxide Anion Gap BUN Creatinine Estimated GFR POC Glucose 238 H Random Glucose Lactic Acid 1.8 Calcium Phosphorus Magnesium Total Bilirubin AST ALT Alkaline Phosphatase Total Creatine Kinase Troponin I B-Natriuretic Peptide Total Protein Albumin Triglycerides Cholesterol LDL Cholesterol, Calc HDL Cholesterol Cholesterol/HDL Ratio TSH Urine Color Yellow Urine Clarity Clear Urine pH 5.0 Ur Specific [place] 1.005 Urine Protein 30 H Urine Glucose (UA) 50 Urine Ketones Negative Urine Occult Blood Small H Urine Nitrate Negative Urine Bilirubin Negative Urine Urobilinogen Less than 2 Ur Leukocyte Esterase Negative Urine RBC 1 Urine WBC 1 Ur Squamous Epith Cells <1 Urine Bacteria Occasional H Hyaline Casts 1 Micro UA Comment Cath-culture ind Urine Culture Comments Cath-cult indicated Ur Random Creatinine Ur Random Sodium Nasal Screen MRSA (PCR) Urine Opiates Screen Ur Barbiturates Screen Ur Amphetamines Screen U Benzodiazepines Scrn Urine Cocaine Screen U Cannabinoids Screen 06/21/18 06/21/18 06/21/18 03:00 06:10 06:24 WBC 9.7 RBC 3.84 L Hgb 12.0 L Hct 34.9 L MCV 91.1 D MCH 31.2 MCHC 34.2 RDW 16.7 Plt Count 67 L MPV 10.3 Prelim Diff (Auto) Slide review pending Neut % (Auto) 77.0 H Lymph % (Auto) 16.3 Brooke % (Auto) 5.2 Eos % (Auto) 1.2 Baso % (Auto) 0.3 Neut # (Auto) 7.5 Lymph # (Auto) 1.6 Brooke # (Auto) 0.5 Eos # (Auto) 0.1 Baso # (Auto) 0.0 WBC Differential . Diff Scan Auto diff confirmed Differential Comment . Platelet Estimate Platelet Morphology Smear Path Review PT INR APTT Puncture Site Right radial Patient Temperature 98.6 O2 Saturation 94 ABG pH 7.42 ABG pCO2 34 L ABG pO2 91 ABG HCO3 21 L ABG O2 Content 15.5 ABG Base Excess -2.6 L ABG Methemoglobin 1.7 Carlos Test Present Hemoglobin 11.6 L Carboxyhemoglobin 1.0 O2 Delivery Device Ventilator Vent Setting 20/550/it1.0/10peep Inspired O2 40 Critical Value No Sodium Potassium Chloride Carbon Dioxide Anion Gap BUN Creatinine Estimated GFR POC Glucose Random Glucose Lactic Acid Calcium Phosphorus Magnesium Total Bilirubin AST ALT Alkaline Phosphatase Total Creatine Kinase Troponin I B-Natriuretic Peptide Total Protein Albumin Triglycerides Cholesterol LDL Cholesterol, Calc HDL Cholesterol Cholesterol/HDL Ratio TSH Urine Color Urine Clarity Urine pH Ur Specific [place] Urine Protein Urine Glucose (UA) Urine Ketones Urine Occult Blood Urine Nitrate Urine Bilirubin Urine Urobilinogen Ur Leukocyte Esterase Urine RBC Urine WBC Ur Squamous Epith Cells Urine Bacteria Hyaline Casts Micro UA Comment Urine Culture Comments Ur Random Creatinine Ur Random Sodium Nasal Screen MRSA (PCR) Not detected Urine Opiates Screen Ur Barbiturates Screen Ur Amphetamines Screen U Benzodiazepines Scrn Urine Cocaine Screen U Cannabinoids Screen 06/21/18 06/21/18 06/21/18 06:24 06:24 06:32 WBC RBC Hgb Hct MCV MCH MCHC RDW Plt Count MPV Prelim Diff (Auto) Neut % (Auto) Lymph % (Auto) Brooke % (Auto) Eos % (Auto) Baso % (Auto) Neut # (Auto) Lymph # (Auto) Brooke # (Auto) Eos # (Auto) Baso # (Auto) WBC Differential Diff Scan Differential Comment Platelet Estimate Platelet Morphology Smear Path Review PT INR APTT Puncture Site Patient Temperature O2 Saturation ABG pH ABG pCO2 ABG pO2 ABG HCO3 ABG O2 Content ABG Base Excess ABG Methemoglobin Carlos Test Hemoglobin Carboxyhemoglobin O2 Delivery Device Vent Setting Inspired O2 Critical Value Sodium 136 Potassium 3.6 Chloride 102 Carbon Dioxide 22.1 Anion Gap 12 BUN 16 Creatinine 1.44 H Estimated GFR 42 L POC Glucose 220 H Random Glucose 195 H Lactic Acid Calcium 8.1 L Phosphorus Magnesium Total Bilirubin 0.7 AST 122 H ALT 65 Alkaline Phosphatase 74 Total Creatine Kinase Troponin I 14.00 H* B-Natriuretic Peptide Total Protein 6.5 D Albumin 3.0 L Triglycerides Cholesterol LDL Cholesterol, Calc HDL Cholesterol Cholesterol/HDL Ratio TSH Urine Color Urine Clarity Urine pH Ur Specific [place] Urine Protein Urine Glucose (UA) Urine Ketones Urine Occult Blood Urine Nitrate Urine Bilirubin Urine Urobilinogen Ur Leukocyte Esterase Urine RBC Urine WBC Ur Squamous Epith Cells Urine Bacteria Hyaline Casts Micro UA Comment Urine Culture Comments Ur Random Creatinine Ur Random Sodium Nasal Screen MRSA (PCR) Urine Opiates Screen Ur Barbiturates Screen Ur Amphetamines Screen U Benzodiazepines Scrn Urine Cocaine Screen U Cannabinoids Screen 06/21/18 06/21/18 06/21/18 11:20 13:41 14:17 WBC 7.9 RBC 3.72 L Hgb 11.6 L Hct 34.2 L MCV 91.9 MCH 31.3 MCHC 34.0 RDW 16.5 Plt Count 70 L MPV 10.3 Prelim Diff (Auto) Neut % (Auto) Lymph % (Auto) Brooke % (Auto) Eos % (Auto) Baso % (Auto) Neut # (Auto) Lymph # (Auto) Brooke # (Auto) Eos # (Auto) Baso # (Auto) WBC Differential Diff Scan Differential Comment Platelet Estimate Platelet Morphology Smear Path Review PT 12.1 H INR 1.2 APTT 29.3 Puncture Site Patient Temperature O2 Saturation ABG pH ABG pCO2 ABG pO2 ABG HCO3 ABG O2 Content ABG Base Excess ABG Methemoglobin Carlos Test Hemoglobin Carboxyhemoglobin O2 Delivery Device Vent Setting Inspired O2 Critical Value Sodium Potassium Chloride Carbon Dioxide Anion Gap BUN Creatinine Estimated GFR POC Glucose 207 H Random Glucose Lactic Acid Calcium Phosphorus Magnesium Total Bilirubin AST ALT Alkaline Phosphatase Total Creatine Kinase Troponin I B-Natriuretic Peptide Total Protein Albumin Triglycerides Cholesterol LDL Cholesterol, Calc HDL Cholesterol Cholesterol/HDL Ratio TSH Urine Color Urine Clarity Urine pH Ur Specific [place] Urine Protein Urine Glucose (UA) Urine Ketones Urine Occult Blood Urine Nitrate Urine Bilirubin Urine Urobilinogen Ur Leukocyte Esterase Urine RBC Urine WBC Ur Squamous Epith Cells Urine Bacteria Hyaline Casts Micro UA Comment Urine Culture Comments Ur Random Creatinine Ur Random Sodium Nasal Screen MRSA (PCR) Urine Opiates Screen Ur Barbiturates Screen Ur Amphetamines Screen U Benzodiazepines Scrn Urine Cocaine Screen U Cannabinoids Screen 06/21/18 06/21/18 06/21/18 15:34 15:34 16:30 WBC RBC Hgb Hct MCV MCH MCHC RDW Plt Count MPV Prelim Diff (Auto) Neut % (Auto) Lymph % (Auto) Brooke % (Auto) Eos % (Auto) Baso % (Auto) Neut # (Auto) Lymph # (Auto) Brooke # (Auto) Eos # (Auto) Baso # (Auto) WBC Differential Diff Scan Differential Comment Platelet Estimate Platelet Morphology Smear Path Review PT INR APTT 29.0 Puncture Site Patient Temperature O2 Saturation ABG pH ABG pCO2 ABG pO2 ABG HCO3 ABG O2 Content ABG Base Excess ABG Methemoglobin Carlos Test Hemoglobin Carboxyhemoglobin O2 Delivery Device Vent Setting Inspired O2 Critical Value Sodium Potassium Chloride Carbon Dioxide Anion Gap BUN Creatinine Estimated GFR POC Glucose Random Glucose Lactic Acid Calcium Phosphorus Magnesium Total Bilirubin AST ALT Alkaline Phosphatase Total Creatine Kinase Troponin I 13.60 H* B-Natriuretic Peptide Total Protein Albumin Triglycerides Cholesterol LDL Cholesterol, Calc HDL Cholesterol Cholesterol/HDL Ratio TSH Urine Color Urine Clarity Urine pH Ur Specific [place] Urine Protein Urine Glucose (UA) Urine Ketones Urine Occult Blood Urine Nitrate Urine Bilirubin Urine Urobilinogen Ur Leukocyte Esterase Urine RBC Urine WBC Ur Squamous Epith Cells Urine Bacteria Hyaline Casts Micro UA Comment Urine Culture Comments Ur Random Creatinine 133 Ur Random Sodium 9 Nasal Screen MRSA (PCR) Urine Opiates Screen Ur Barbiturates Screen Ur Amphetamines Screen U Benzodiazepines Scrn Urine Cocaine Screen U Cannabinoids Screen 06/21/18 06/21/18 06/21/18 17:22 22:11 23:31 WBC RBC Hgb Hct MCV MCH MCHC RDW Plt Count MPV Prelim Diff (Auto) Neut % (Auto) Lymph % (Auto) Brooke % (Auto) Eos % (Auto) Baso % (Auto) Neut # (Auto) Lymph # (Auto) Brooke # (Auto) Eos # (Auto) Baso # (Auto) WBC Differential Diff Scan Differential Comment Platelet Estimate Platelet Morphology Smear Path Review PT INR APTT Puncture Site Patient Temperature O2 Saturation ABG pH ABG pCO2 ABG pO2 ABG HCO3 ABG O2 Content ABG Base Excess ABG Methemoglobin Carlos Test Hemoglobin Carboxyhemoglobin O2 Delivery Device Vent Setting Inspired O2 Critical Value Sodium Potassium Chloride Carbon Dioxide Anion Gap BUN Creatinine Estimated GFR POC Glucose 133 H 184 H Random Glucose Lactic Acid Calcium Phosphorus Magnesium Total Bilirubin AST ALT Alkaline Phosphatase Total Creatine Kinase Troponin I 9.08 H* B-Natriuretic Peptide Total Protein Albumin Triglycerides Cholesterol LDL Cholesterol, Calc HDL Cholesterol Cholesterol/HDL Ratio TSH Urine Color Urine Clarity Urine pH Ur Specific [place] Urine Protein Urine Glucose (UA) Urine Ketones Urine Occult Blood Urine Nitrate Urine Bilirubin Urine Urobilinogen Ur Leukocyte Esterase Urine RBC Urine WBC Ur Squamous Epith Cells Urine Bacteria Hyaline Casts Micro UA Comment Urine Culture Comments Ur Random Creatinine Ur Random Sodium Nasal Screen MRSA (PCR) Urine Opiates Screen Ur Barbiturates Screen Ur Amphetamines Screen U Benzodiazepines Scrn Urine Cocaine Screen U Cannabinoids Screen 06/22/18 06/22/18 06/22/18 00:16 05:24 06:20 WBC RBC Hgb Hct MCV MCH MCHC RDW Plt Count MPV Prelim Diff (Auto) Neut % (Auto) Lymph % (Auto) Brooke % (Auto) Eos % (Auto) Baso % (Auto) Neut # (Auto) Lymph # (Auto) Brooke # (Auto) Eos # (Auto) Baso # (Auto) WBC Differential Diff Scan Differential Comment Platelet Estimate Platelet Morphology Smear Path Review PT INR APTT 32.9 H Puncture Site Patient Temperature O2 Saturation ABG pH ABG pCO2 ABG pO2 ABG HCO3 ABG O2 Content ABG Base Excess ABG Methemoglobin Carlos Test Hemoglobin Carboxyhemoglobin O2 Delivery Device Vent Setting Inspired O2 Critical Value Sodium 139 Potassium 3.9 Chloride 106 Carbon Dioxide 22.1 Anion Gap 11 BUN 20 H Creatinine 1.37 H Estimated GFR 51 L POC Glucose 180 H Random Glucose 132 H Lactic Acid Calcium 8.4 L Phosphorus 3.3 Magnesium 1.7 Total Bilirubin 0.9 AST 98 H ALT 58 Alkaline Phosphatase 68 Total Creatine Kinase Troponin I 6.11 H* B-Natriuretic Peptide Total Protein 6.6 Albumin 2.7 L Triglycerides 199 H Cholesterol 115 L LDL Cholesterol, Calc 37 HDL Cholesterol 37.8 L Cholesterol/HDL Ratio 3.04 TSH 2.260 Urine Color Urine Clarity Urine pH Ur Specific [place] Urine Protein Urine Glucose (UA) Urine Ketones Urine Occult Blood Urine Nitrate Urine Bilirubin Urine Urobilinogen Ur Leukocyte Esterase Urine RBC Urine WBC Ur Squamous Epith Cells Urine Bacteria Hyaline Casts Micro UA Comment Urine Culture Comments Ur Random Creatinine Ur Random Sodium Nasal Screen MRSA (PCR) Urine Opiates Screen Ur Barbiturates Screen Ur Amphetamines Screen U Benzodiazepines Scrn Urine Cocaine Screen U Cannabinoids Screen 06/22/18 06/22/18 06/22/18 06:20 06:20 11:19 WBC 5.2 RBC 3.51 L Hgb 11.0 L Hct 32.7 L MCV 93.4 MCH 31.5 MCHC 33.7 RDW 17.3 H Plt Count 59 L MPV 10.4 Prelim Diff (Auto) Neut % (Auto) Lymph % (Auto) Brooke % (Auto) Eos % (Auto) Baso % (Auto) Neut # (Auto) Lymph # (Auto) Brooke # (Auto) Eos # (Auto) Baso # (Auto) WBC Differential Diff Scan Differential Comment Platelet Estimate Platelet Morphology Smear Path Review PT INR APTT 31.9 H Puncture Site Patient Temperature O2 Saturation ABG pH ABG pCO2 ABG pO2 ABG HCO3 ABG O2 Content ABG Base Excess ABG Methemoglobin Carlos Test Hemoglobin Carboxyhemoglobin O2 Delivery Device Vent Setting Inspired O2 Critical Value Sodium Potassium Chloride Carbon Dioxide Anion Gap BUN Creatinine Estimated GFR POC Glucose 162 H Random Glucose Lactic Acid Calcium Phosphorus Magnesium Total Bilirubin AST ALT Alkaline Phosphatase Total Creatine Kinase Troponin I B-Natriuretic Peptide Total Protein Albumin Triglycerides Cholesterol LDL Cholesterol, Calc HDL Cholesterol Cholesterol/HDL Ratio TSH Urine Color Urine Clarity Urine pH Ur Specific [place] Urine Protein Urine Glucose (UA) Urine Ketones Urine Occult Blood Urine Nitrate Urine Bilirubin Urine Urobilinogen Ur Leukocyte Esterase Urine RBC Urine WBC Ur Squamous Epith Cells Urine Bacteria Hyaline Casts Micro UA Comment Urine Culture Comments Ur Random Creatinine Ur Random Sodium Nasal Screen MRSA (PCR) Urine Opiates Screen Ur Barbiturates Screen Ur Amphetamines Screen U Benzodiazepines Scrn Urine Cocaine Screen U Cannabinoids Screen Result Diagrams: 06/22/18 06:20 06/22/18 06:20 Microbiology: Microbiology 06/21/18 02:10 Gram Stain - Final Sputum - Endotracheal Sputum Culture - Preliminary 06/20/18 20:50 Aerobic Blood Culture - Preliminary Blood - Peripheral No growth in 2 days Anaerobic Blood Culture - Preliminary No growth in 2 days 06/20/18 21:15 Urine Culture - Final Catheterized Urine No growth in 48 hours 06/20/18 21:15 Influenza Types A,B Antigen - Final Nasal Wash Negative for FLU A and B antigen Infection due to influenza A or B cannot be ruled out since the antigen present in the sample may be below the detection limit of the test. Imaging: ITS Impressions Abdomen/Bladder Ultrasound 06/21/18 00:00 CONCLUSION: 1. Increased echogenicity of both kidneys typical of chronic parenchymal disease. 2. No evidence of acute obstructive uropathy. 3. Bilateral benign appearing renal cysts. Head CT 06/21/18 00:00 CONCLUSION: 1. Aging brain with mild volume loss. 2. No evidence of acute infarct, hemorrhage, mass or edema. . Chest X-Ray 06/22/18 06:00 CONCLUSION: Stable chest x-ray with airspace consolidation in the left midlung zone and right lung base. Patient/Family Conference Present at Family Conference: Family Conference Location: Bedside Issues Discussed: * Palliative care role, purpose, approach * Additional medical, psychosocial, and spiritual history * Patients general health, functional status, and cognitive changes in the months leading up to the current hospitalization * family understanding of the current medical problems * family understanding of prognosis * Patients goals of care as best understood from conversations - pt felt that if he was "brain " he would not want to be "on life support * Current medical treatment options and benefits/burdens of those options * Likely scenarios comparing ongoing aggressive care with a transition to comfort measures only * code status * Questions answered to the best of my ability * Palliative care contact information provided Goals are aggressive. "If he's not brain he's alive." Assessment and Plan Pertinent Non-Medical Issues: Psychosocial: [place] originally [place] with 4 kids. 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 Spiritual: evangelical. 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 Legal: Per [place] statute is proxy decision maker. Ethical issues impacting care: none Important Contacts: Kristine Avila, - [phone] Prognosis: This is a 72-year-old male with history CHF, COPD, tobacco abuse, diabetes who presented 06/20 [place] He has a defibrillator implanted. His baseline ejection fraction is 25% and he is now at less than 20%. Per cardiology likely and STEMI. Cardiology considering cath procedure if patient recovers neurologically. Patient just extubated but remains at risk for reintubation. He is at high risk for continued complications and decline. Code Status: Full Code Plan: - LEGAL DECISON MAKER -patient is incapacitated to make medical decisions. Per [place] statutes his proxy decision maker - CODE STATUS-full code - GOALS - Goals are aggressive. "If he's not brain he's alive." - SYMPTOMS - * pain - risk for pain, multifactorial. chest pain prior to admission. had been having frequent muscle cramps and spasms. just extubated. apears comfortable on my exam. had fentanyl drip. pain mgmt per attending * dyspnea -just extubated. Recent end STEMI. In the past month has been having increasing activity intolerance. Just required suctioning by respiratory , at risk for reintubation. scheduled DuoNeb's - Palliative care will continue to follow during hospital course as condition evolves, to assist patient/decision-maker with understanding of medical conditions, weighing benefits/burdens of treatment options, for clarification of goals of treatment. Additionally will assist with any symptoms of palliative concern Appreciation Thank you for the opportunity to participate in the care of [facility].
--- NOTE | 2018-06-22 14:30 | ECG ---
Date Performed: 06/21/2018 Time Performed: 18:35:54 PTAGE: 72 years EKG: Sinus rhythm Left bundle branch block Abnormal ECG Since the PREVIOUS TRACING , no significant change noted PREVIOUS TRACING 06/20/2018 20.34 DOCTOR: Nasir Noonan Interpretating Date/Time 06/22/2018 14:29:08
--- NOTE | 2018-06-22 15:10 | P.PNCC ---
Subjective Subjective Remarks/Hospital Course: Elderly male with a medical history significant for viral cardiomyopathy who was traveling on vacation from [place] with his family in [place] and today developed chest pain with worsening shortness of breath for which EMS was called by family. Patient was extremely short of breath on the arrival and hypoxic and they proceeded with endotracheal intubation and patient was transferred to the ER. In the ER it was noted that his cuff was leaking hence ET tube was exchanged by ER physician and patient was placed on mechanical ventilation. Per his family he has a defibrillator and is followed by his harbour master in [place] whom he saw in December of this year. He reportedly does not take any diuretic. Chest x-ray done in the ER revealed pulmonary edema. EKG revealed atrial fibrillation. Patient was accepted for admission by critical care medicine service. When I evaluated him in the ER he was sedated with propofol, orally intubated on mechanical ventilation. History was obtained by reviewing records, discussion with family as well as ER physician. Subjective 06/21: Afebrile. Hemodynamically stable. Troponin bumped 14. Started on heparin drip. Sedated with propofol and fentanyl drips. Arousable the ventilator and is very agitated will attempt to withdrawal tube. PEEP down to 5. 8/10: Sedated, orally intubated on mechanical ventilation. Gets agitated unenlightening sedation so Precedex added in addition to propofol and fentanyl. CPAP trials ongoing to decide extubation. Cardiac cath postponed by Dr. Noonan in view of questionable neurologic status. Objective Vital Signs / I&O: Vital Signs 06/21/18 15:10 06/21/18 15:15 06/21/18 15:20 Temperature Pulse Rate 67 67 67 Respiratory Rate 16 18 15 Blood Pressure 77/48 L 85/52 L 88/53 L Pulse Oximetry 93 L 94 L 94 L 06/21/18 15:25 06/21/18 15:30 06/21/18 15:35 Temperature Pulse Rate 67 69 71 Respiratory Rate 24 16 16 Blood Pressure 95/50 L 99/54 L 102/61 Pulse Oximetry 95 96 96 06/21/18 15:40 06/21/18 15:45 06/21/18 15:50 Temperature Pulse Rate 69 69 69 Respiratory Rate 16 16 16 Blood Pressure 100/58 L 101/55 L 101/57 L Pulse Oximetry 96 97 97 06/21/18 15:55 06/21/18 16:00 06/21/18 16:05 Temperature 98.6 F Pulse Rate 68 68 68 Respiratory Rate 16 16 16 Blood Pressure 99/54 L 99/56 L 100/58 L Pulse Oximetry 97 97 97 06/21/18 16:10 06/21/18 16:14 06/21/18 16:15 Temperature Pulse Rate 68 69 68 Respiratory Rate 16 16 16 Blood Pressure 101/55 L 100/59 L Pulse Oximetry 97 98 97 06/21/18 16:20 06/21/18 16:25 06/21/18 16:30 Temperature Pulse Rate 69 70 67 Respiratory Rate 16 16 16 Blood Pressure 105/57 L 101/52 L 99/53 L Pulse Oximetry 98 98 98 06/21/18 16:45 06/21/18 17:00 06/21/18 17:15 Temperature Pulse Rate 70 71 73 Respiratory Rate 16 16 16 Blood Pressure 106/58 L 110/56 L 113/59 L Pulse Oximetry 99 99 100 06/21/18 17:30 06/21/18 17:45 06/21/18 18:00 Temperature Pulse Rate 71 74 75 Respiratory Rate 16 16 16 Blood Pressure 108/57 L 116/61 114/62 Pulse Oximetry 100 100 100 06/21/18 18:15 06/21/18 18:30 06/21/18 18:45 Temperature Pulse Rate 72 74 69 Respiratory Rate 16 16 16 Blood Pressure 107/57 L 113/62 101/58 L Pulse Oximetry 98 99 99 06/21/18 19:00 06/21/18 19:15 06/21/18 19:30 Temperature Pulse Rate 71 71 68 Respiratory Rate 16 12 14 Blood Pressure 110/57 L 112/59 L 99/55 L Pulse Oximetry 98 99 98 06/21/18 19:45 06/21/18 20:00 06/21/18 20:15 Temperature 101.2 F H Pulse Rate 69 74 72 Respiratory Rate 11 L 16 16 Blood Pressure 106/55 L 112/59 L 94/52 L Pulse Oximetry 100 98 93 L 06/21/18 20:31 06/21/18 20:45 06/21/18 21:00 Temperature Pulse Rate 71 74 70 Respiratory Rate 16 30 H 27 H Blood Pressure 101/50 L 103/56 L 101/54 L Pulse Oximetry 100 99 97 06/21/18 21:01 06/21/18 21:03 06/21/18 21:17 Temperature 100.4 F H Pulse Rate 69 Respiratory Rate 16 Blood Pressure 101/54 L Pulse Oximetry 95 100 06/21/18 21:29 06/21/18 21:30 06/21/18 22:00 Temperature Pulse Rate 67 67 Respiratory Rate 16 16 16 Blood Pressure 94/51 L 98/51 L Pulse Oximetry 95 95 97 06/21/18 22:30 06/21/18 23:00 06/21/18 23:30 Temperature Pulse Rate 63 63 62 Respiratory Rate 16 16 16 Blood Pressure 98/52 L 93/54 L 95/52 L Pulse Oximetry 98 98 99 06/22/18 00:00 06/22/18 00:30 06/22/18 01:00 Temperature 99.6 F Pulse Rate 62 65 66 Respiratory Rate 16 16 16 Blood Pressure 95/54 L 103/58 L 104/59 L Pulse Oximetry 99 100 100 06/22/18 01:25 06/22/18 01:30 06/22/18 02:00 Temperature Pulse Rate 66 62 61 Respiratory Rate 16 16 16 Blood Pressure 92/51 L 87/50 L Pulse Oximetry 100 99 97 06/22/18 02:30 06/22/18 03:00 06/22/18 03:30 Temperature Pulse Rate 63 64 64 Respiratory Rate 16 16 16 Blood Pressure 94/52 L 96/53 L 97/53 L Pulse Oximetry 98 99 99 06/22/18 04:00 06/22/18 05:00 06/22/18 05:16 Temperature 100.1 F H Pulse Rate 66 69 66 Respiratory Rate 16 16 16 Blood Pressure 99/55 L 94/55 L Pulse Oximetry 99 91 L 94 L 06/22/18 05:30 06/22/18 06:00 06/22/18 06:30 Temperature Pulse Rate 67 65 66 Respiratory Rate 16 16 16 Blood Pressure 100/52 L 95/51 L 105/53 L Pulse Oximetry 95 96 98 06/22/18 07:00 06/22/18 07:28 06/22/18 07:30 Temperature Pulse Rate 68 66 66 Respiratory Rate 16 16 16 Blood Pressure 110/56 L 106/56 L Pulse Oximetry 99 99 06/22/18 08:00 06/22/18 08:30 06/22/18 09:00 Temperature 99.4 F Pulse Rate 69 63 63 Respiratory Rate 16 16 16 Blood Pressure 113/58 L 106/53 L 97/51 L Pulse Oximetry 99 98 98 06/22/18 09:30 06/22/18 10:00 06/22/18 10:31 Temperature Pulse Rate 65 65 90 Respiratory Rate 16 16 29 H Blood Pressure 106/52 L 108/53 L 111/57 L Pulse Oximetry 99 97 95 06/22/18 11:00 06/22/18 11:18 06/22/18 11:30 Temperature Pulse Rate 71 69 68 Respiratory Rate 16 16 16 Blood Pressure 100/50 L 104/51 L Pulse Oximetry 96 98 06/22/18 12:00 06/22/18 12:18 06/22/18 12:30 Temperature 100.1 F H Pulse Rate 70 65 Respiratory Rate 16 16 16 Blood Pressure 104/52 L 90/53 L Pulse Oximetry 97 98 92 L 06/22/18 14:00 06/22/18 14:48 Temperature Pulse Rate 72 76 Respiratory Rate 19 Blood Pressure Pulse Oximetry Intake & Output 06/21/18 06/22/18 06/22/18 18:59 06:59 18:59 Intake Total 200 / 200 1643 / 1643 513 / 513 Output Total 300 / 300 530 / 530 Balance -100 / -100 1113 / 1113 513 / 513 Weight 74.5 kg Intake: IV 200 / 200 1523 / 1523 513 / 513 Heparin/D5W 25,000 U/250 mL 25, 171 / 171 79 / 79 000 unit In 250 ml @ 800 UNITS/ HR 8 mls/hr IV.CONT TITRATE PRN Rx#:[id number] Diprivan 1000 mg/100 ml Inj 1, 100 / 100 200 / 200 180 / 180 000 mg In 100 ml @ 5 MCG/KG/MIN 2.1 mls/hr IV.CONT TITRATE PRN Rx#:[id number] NS Inj 1,000 ML @ 42 mls/hr IV. 946 / 946 154 / 154 CONT .[id number] [facility] Rx#:[id number] Maxipime Inj 2,000 MG In NS Inj 100 / 100 100 / 100 100 / 100 100 ML @ 200 mls/hr IV.SIG Q12H [facility] Rx#:[id number] fentaNYL 10 mcg/mL Premix Drip 106 / 106 2,500 mcg In 250 ml @ 50 MCG/HR 5 mls/hr IV.SIG TITRATE PRN Rx #:[id number] Oral 0 / 0 Water Bolus Amount 120 / 120 Output: Urine 300 / 300 Urine Amount (Catheter) 500 / 500 Indwelling Urethral Catheter 500 / 500 Gastric Drainage 30 / 30 Left Nare Nasogastric Tube 30 / 30 Other: # Bowel Movements 0 0 Result Diagrams: 06/22/18 06:20 06/22/18 06:20 Imaging: Impressions Chest X-Ray 06/20/18 20:36 CONCLUSION: Bilateral perihilar infiltrates and mild cardiomegaly. Please see above. Abdomen/Bladder Ultrasound 06/21/18 00:00 CONCLUSION: 1. Increased echogenicity of both kidneys typical of chronic parenchymal disease. 2. No evidence of acute obstructive uropathy. 3. Bilateral benign appearing renal cysts. Head CT 06/21/18 00:00 CONCLUSION: 1. Aging brain with mild volume loss. 2. No evidence of acute infarct, hemorrhage, mass or edema. . Chest X-Ray 06/21/18 06:00 CONCLUSION: Stable exam. Chest X-Ray 06/22/18 06:00 CONCLUSION: Stable chest x-ray with airspace consolidation in the left midlung zone and right lung base. Objective Remarks: GENERAL: 72 yoM orotracheally intubated SKIN: Warm and dry. Chronic venous stasis bilateral lower extremities HEAD: Atraumatic. Normocephalic. EYES: Pupils equal and round. No scleral icterus. No injection or drainage. ENT: No nasal bleeding or discharge. Mucous membranes pink and moist. NECK: Trachea midline. No JVD. CARDIOVASCULAR: Regular rate and rhythm. S1, S2 predose for without murmur RESPIRATORY: Essentially clear anteriorly. No wheezing GASTROINTESTINAL: Abdomen soft, non-tender, slightly protuberant. Hypoactive bowel sounds appreciated MUSCULOSKELETAL: Extremities with trace bilateral lower extremity edema. No obvious deformities. NEUROLOGICAL: Arousable event but not following commands. Moves all 4 extremities spontaneously. Positive gag, cough and corneal reflex. Assessment and Plan - Assessment and Plan Plan: Elderly male with: Chest pain Acute respiratory failure Acute decompensated CHF - systolic and dialstolic EF 40% 2017 B/L carotid Stenosis 40-59% erectile Dysfunction PAD LBBB- chronic Cardiomyopathy - Dilated NSTEMI Atrial fibrillation Diabetes mellitus Hypertension COPD History of pacemaker/defibrillator placement Diabetes mellitus type 2 uncontrolled with hyperglycemia Hyperlipidemia Glaucoma Normocytic anemia Thrombocytopenia Acute kidney injury Hypoalbuminemia Cystitis Plan: Neuro: Sedation with propofol and fentanyl drips maintain RASS -2, daily sedation vacation. Acetaminophen 650 every 6 hours as needed fever. Follow neuro status. Holding gabapentin 300 mg 3 times daily and baclofen 10 mg 3 times daily/home medications. Continue brimonidine 0.15% 3 times daily Cardiovascular: Watch for hypotension. Diuresis with furosemide completed. Non -ST elevation MD. cardiology consult requested in view of decompensated CHF, history of cardiomyopathy and positive troponin. Obtain medical records from patient's harbour master in [place] in a.m. currently A. fib appears to be rate controlled. Continue aspirin 162 mg daily. 81 mg at home started on low-dose beta-ana metoprolol tartrate 12.5 mg twice daily. No ENA inhibitor secondary to acute kidney injury.. Currently on heparin drip due to elevated troponin. Holding cilostazol 50 mg twice daily. Resume simvastatin 20 mg daily/40 mg pravastatin substituted. Cardiac cath postponed per Dr. Noonan till improvement in neurologic status. Pulmonary: Continue mechanical ventilation, vent bundle, bronchodilators as needed. Peep +5. Diuresis held due to acute kidney injury. Albuterol/ ipratropium every 4 hours with albuterol aerosols every 2 hours as needed dyspnea. CPAP trials to decide extubation GI/liver: Hold tube feeds for possible extubation following CPAP trial today. Renal/: Strict intake output, monitor and replete electrolytes, follow BUN/ creatinine. Diuresis with Lasix ID: Watch for fever/leukocytosis. Cefepime 2 g IV every 12 hours. Influenza a and B-. Blood cultures, urine and sputum negative. Endocrine: Holding metformin thousand milligrams twice daily, sitagliptin 100 mg daily sliding scale insulin with aspart insulin high protocol for glycemic control. Prophylaxis: PPI/SCDs/heparin drip Condition critical Time spent on critical care excluding procedures 35 minutes. D/W @ bedside
[2018-06-22 17:16] LABS: Hemoglobin A1c 5.5 % (4.3-6.0)
--- NOTE | 2018-06-22 17:20 | P.PNNEU ---
Subjective Subjective Comments: No acute events reported extubated. Lethargic arousable. Does not follow commands CN intact MOTOR 5/5 BUE Active Medications: Active Medications Acetaminophen (Tylenol Liq) 650 mg NG/OG Q6H PRN PRN Reason: FEVER Last Admin: 06/21/18 20:00 Dose: 650 mg Albuterol (Duoneb Neb ([facility])) 1 ampul NEB Q4HR NEB [facility] Last Admin: 06/22/18 14:47 Dose: 1 ampul Artificial Tears (Genteal Severe Dry Eye Relief 0.3% Opth Gel) 1 drops EACH EYE BID [facility] Last Admin: 06/22/18 08:25 Dose: 1 drops Aspirin (Aspirin Chew) 162 mg PO DAILY [facility] Last Admin: 06/22/18 08:25 Dose: 162 mg Brimonidine Tartrate (Alphagan P 0.15% Opth Drops) 1 drops EACH EYE TID [facility] Last Admin: 06/22/18 13:23 Dose: 1 drops Chlorhexidine Gluconate (Chlorhexidine 2% Cloth) 3 pack TOPICAL DAILY@0400 [facility] Stop: 06/26/18 03:59 Last Admin: 06/22/18 05:26 Dose: 3 pack Chlorhexidine Gluconate (Chlorhexidine 2% Cloth) 3 pack TOPICAL DAILY@0400 PRN PRN Reason: Extra cloth needed Stop: 06/26/18 03:59 Dextrose (D50w Vial) 50 ml IV.PUSH UNSCH PRN PRN Reason: PER HYPOGLYCEMIA PROTOCOL Glucagon (Glucagon Inj) 1 mg OTHER PRN PRN PRN Reason: for Hypoglycemia Protocol Propofol (Diprivan 1000 Mg/100 Ml Inj) 1,000 mg in 100 mls @ 2.1 mls/hr IV.CONT TITRATE PRN; Protocol PRN Reason: Per Protocol Last Titration: 06/22/18 15:01 Dose: Infused Heparin Sodium/Dextrose (Heparin/D5w 25,000 U/250 Ml) 25,000 unit in 250 mls @ 8 mls/hr IV.CONT TITRATE PRN; Protocol PRN Reason: Per Protocol Last Titration: 06/22/18 16:59 Dose: 1,200 units/hr, 12 mls/hr Fentanyl (Fentanyl 10 Mcg/Ml Premix Drip) 2,500 mcg in 250 mls @ 5 mls/hr IV.SIG TITRATE PRN; Protocol PRN Reason: Per Protocol Last Titration: 06/22/18 15:03 Dose: Infused Magnesium Sulfate Inj 4 gm/ (Sodium Chloride) 100 mls @ 50 mls/hr IV.SIG UNSCH PRN PRN Reason: For Magnesium 0.9 - 1.1 mg/dL Magnesium Sulfate Inj 2 gm/ (Sodium Chloride) 100 mls @ 50 mls/hr IV.SIG UNSCH PRN PRN Reason: For Magnesium 1.2 - 1.6 mg/dL Potassium Chloride (Kcl 40 Meq Premix Inj) 40 meq in 100 mls @ 50 mls/hr IV.SIG Q2H PRN PRN Reason: For Potassium 2.8 - 3.2 mEq/L Potassium Chloride (Kcl 20 Meq Premix Inj) 20 meq in 100 mls @ 50 mls/hr IV.SIG Q2H PRN PRN Reason: For Potassium 3.3 - 3.5 mEq/L Potassium Chloride (Kcl 20 Meq Premix Inj) 20 meq in 100 mls @ 50 mls/hr IV.SIG Q2H PRN PRN Reason: For Potassium 2.8 - 3.2 mEq/L Potassium Phosphate 30 mmol/ (Sodium Chloride) 260 mls @ 42 mls/hr IV.SIG UNSCH PRN PRN Reason: SEE LABEL COMMENTS Sodium Phosphate 30 mmol/ (Sodium Chloride) 260 mls @ 42 mls/hr IV.SIG UNSCH PRN PRN Reason: For Phosphorus < 2.5 mg/dL Potassium Chloride (Kcl 40 Meq Premix Inj) 40 meq in 100 mls @ 25 mls/hr IV.SIG UNSCH PRN PRN Reason: For Potassium 3.3 - 3.5 mEq/L Sodium Chloride (Ns Inj) 1,000 mls @ 42 mls/hr IV.CONT .[id number] [facility] Last Infusion: 06/22/18 14:55 Dose: Infused Cefepime HCl 2,000 mg/ Sodium (Chloride) 100 mls @ 200 mls/hr IV.SIG Q12H [facility] Last Infusion: 06/22/18 10:10 Dose: Infused Dexmedetomidine HCl 200 mcg/ (Sodium Chloride) 50 mls @ 3.72 mls/hr IV.CONT TITRATE PRN; Protocol PRN Reason: Per Protocol Last Titration: 06/22/18 16:37 Dose: 1.1 mcg/kg/hr, 20.48 mls/hr Insulin Aspart (Novolog Insulin Correctional Sugar Inj) 0 unit SQ Q6HR [facility]; Protocol Last Admin: 06/22/18 13:19 Dose: Not Given Lansoprazole (Prevacid Solutab) 30 mg NG/OG DAILY [facility] Last Admin: 06/22/18 08:25 Dose: 30 mg Magnesium Oxide (Mag-Ox) 800 mg PO UNSCH PRN PRN Reason: For Magnesium 1.2 - 1.6 mg/dL Metoprolol Tartrate (Lopressor) 12.5 mg PO BID [facility] Last Admin: 06/22/18 08:25 Dose: 12.5 mg Miscellaneous (Pill Splitter) 1 each OTHER UNSCH PRN PRN Reason: SEE LABEL COMMENTS Potassium Bicarb/Potassium Chloride (K-Lyte Cl Eff) 50 meq PO UNSCH PRN PRN Reason: For Potassium 3.3 - 3.5 mEq/L Potassium Phosphate (K-Phos Original) 2,000 mg PO Q4H PRN PRN Reason: Phosphorus Less Than 2.5 mg/dL Potassium Phosphate (K-Phos Original) 2,000 mg PO UNSCH PRN PRN Reason: SEE LABEL COMMENTS Pravastatin Sodium (Pravachol) 40 mg PO DAILY@1800 [facility] Last Admin: 06/21/18 17:48 Dose: 40 mg Sodium Chloride (Ns Flush) 2 ml IV.FLUSH PRN PRN PRN Reason: FLUSH AFTER USING IV ACCESS Allergies/Adverse Reactions: Allergies Allergy/AdvReac Type Severity Reaction Status Date / Time bee venom protein (honey bee) Allergy Difficulty Verified 06/20/18 22:04 [Bee sting] Breathing hydromorphone Allergy Nausea/Vomi Verified 06/20/18 22:04 ting pregabalin [From Lyrica] Allergy Anaphylaxis Verified 06/20/18 22:04 Physical Exam Vital signs: Vital Signs 06/21/18 17:30 06/21/18 17:45 06/21/18 18:00 Temperature Pulse Rate 71 74 75 Respiratory Rate 16 16 16 Blood Pressure 108/57 L 116/61 114/62 Pulse Oximetry 100 100 100 06/21/18 18:15 06/21/18 18:30 06/21/18 18:45 Temperature Pulse Rate 72 74 69 Respiratory Rate 16 16 16 Blood Pressure 107/57 L 113/62 101/58 L Pulse Oximetry 98 99 99 06/21/18 19:00 06/21/18 19:15 06/21/18 19:30 Temperature Pulse Rate 71 71 68 Respiratory Rate 16 12 14 Blood Pressure 110/57 L 112/59 L 99/55 L Pulse Oximetry 98 99 98 06/21/18 19:45 06/21/18 20:00 06/21/18 20:15 Temperature 101.2 F H Pulse Rate 69 74 72 Respiratory Rate 11 L 16 16 Blood Pressure 106/55 L 112/59 L 94/52 L Pulse Oximetry 100 98 93 L 06/21/18 20:31 06/21/18 20:45 06/21/18 21:00 Temperature Pulse Rate 71 74 70 Respiratory Rate 16 30 H 27 H Blood Pressure 101/50 L 103/56 L 101/54 L Pulse Oximetry 100 99 97 06/21/18 21:01 06/21/18 21:03 06/21/18 21:17 Temperature 100.4 F H Pulse Rate 69 Respiratory Rate 16 Blood Pressure 101/54 L Pulse Oximetry 95 100 06/21/18 21:29 06/21/18 21:30 06/21/18 22:00 Temperature Pulse Rate 67 67 Respiratory Rate 16 16 16 Blood Pressure 94/51 L 98/51 L Pulse Oximetry 95 95 97 06/21/18 22:30 06/21/18 23:00 06/21/18 23:30 Temperature Pulse Rate 63 63 62 Respiratory Rate 16 16 16 Blood Pressure 98/52 L 93/54 L 95/52 L Pulse Oximetry 98 98 99 06/22/18 00:00 06/22/18 00:30 06/22/18 01:00 Temperature 99.6 F Pulse Rate 62 65 66 Respiratory Rate 16 16 16 Blood Pressure 95/54 L 103/58 L 104/59 L Pulse Oximetry 99 100 100 06/22/18 01:25 06/22/18 01:30 06/22/18 02:00 Temperature Pulse Rate 66 62 61 Respiratory Rate 16 16 16 Blood Pressure 92/51 L 87/50 L Pulse Oximetry 100 99 97 06/22/18 02:30 06/22/18 03:00 06/22/18 03:30 Temperature Pulse Rate 63 64 64 Respiratory Rate 16 16 16 Blood Pressure 94/52 L 96/53 L 97/53 L Pulse Oximetry 98 99 99 06/22/18 04:00 06/22/18 05:00 06/22/18 05:16 Temperature 100.1 F H Pulse Rate 66 69 66 Respiratory Rate 16 16 16 Blood Pressure 99/55 L 94/55 L Pulse Oximetry 99 91 L 94 L 06/22/18 05:30 06/22/18 06:00 06/22/18 06:30 Temperature Pulse Rate 67 65 66 Respiratory Rate 16 16 16 Blood Pressure 100/52 L 95/51 L 105/53 L Pulse Oximetry 95 96 98 06/22/18 07:00 06/22/18 07:28 06/22/18 07:30 Temperature Pulse Rate 68 66 66 Respiratory Rate 16 16 16 Blood Pressure 110/56 L 106/56 L Pulse Oximetry 99 99 06/22/18 08:00 06/22/18 08:30 06/22/18 09:00 Temperature 99.4 F Pulse Rate 69 63 63 Respiratory Rate 16 16 16 Blood Pressure 113/58 L 106/53 L 97/51 L Pulse Oximetry 99 98 98 06/22/18 09:30 06/22/18 10:00 06/22/18 10:31 Temperature Pulse Rate 65 65 90 Respiratory Rate 16 16 29 H Blood Pressure 106/52 L 108/53 L 111/57 L Pulse Oximetry 99 97 95 06/22/18 11:00 06/22/18 11:18 06/22/18 11:30 Temperature Pulse Rate 71 69 68 Respiratory Rate 16 16 16 Blood Pressure 100/50 L 104/51 L Pulse Oximetry 96 98 06/22/18 12:00 06/22/18 12:18 06/22/18 12:30 Temperature 100.1 F H Pulse Rate 70 65 Respiratory Rate 16 16 16 Blood Pressure 104/52 L 90/53 L Pulse Oximetry 97 98 92 L 06/22/18 13:00 06/22/18 13:30 06/22/18 14:00 Temperature Pulse Rate 64 63 77 Respiratory Rate 16 16 16 Blood Pressure 92/54 L 97/51 L 97/51 L Pulse Oximetry 95 97 98 06/22/18 14:30 06/22/18 14:48 06/22/18 15:00 Temperature Pulse Rate 74 76 73 Respiratory Rate 24 19 14 Blood Pressure 106/59 L 108/55 L Pulse Oximetry 96 97 06/22/18 15:24 06/22/18 15:30 06/22/18 16:00 Temperature Pulse Rate 82 82 Respiratory Rate 17 19 Blood Pressure 109/58 L 109/58 L Pulse Oximetry 93 L 96 87 L 06/22/18 16:30 Temperature 100.3 F H Pulse Rate 80 Respiratory Rate 17 Blood Pressure 111/54 L Pulse Oximetry 90 L Intake & Output 06/21/18 06/22/18 06/22/18 18:59 06:59 18:59 Intake Total 200 / 200 1643 / 1643 577 / 577 Output Total 300 / 300 530 / 530 Balance -100 / -100 1113 / 1113 577 / 577 Weight 74.5 kg Intake: IV 200 / 200 1523 / 1523 577 / 577 Precedex Inj 200 MCG In NS Inj 50 / 50 48 ML @ 0.2 MCG/KG/HR 3.72 mls/ hr IV.CONT TITRATE PRN Rx#: [id number] Heparin/D5W 25,000 U/250 mL 25, 171 / 171 79 / 79 000 unit In 250 ml @ 800 UNITS/ HR 8 mls/hr IV.CONT TITRATE PRN Rx#:[id number] Diprivan 1000 mg/100 ml Inj 1, 100 / 100 200 / 200 180 / 180 000 mg In 100 ml @ 5 MCG/KG/MIN 2.1 mls/hr IV.CONT TITRATE PRN Rx#:[id number] NS Inj 1,000 ML @ 42 mls/hr IV. 946 / 946 154 / 154 CONT .[id number] [facility] Rx#:[id number] Maxipime Inj 2,000 MG In NS Inj 100 / 100 100 / 100 100 / 100 100 ML @ 200 mls/hr IV.SIG Q12H [facility] Rx#:[id number] fentaNYL 10 mcg/mL Premix Drip 106 / 106 14 / 14 2,500 mcg In 250 ml @ 50 MCG/HR 5 mls/hr IV.SIG TITRATE PRN Rx #:[id number] Oral 0 / 0 Water Bolus Amount 120 / 120 Output: Urine 300 / 300 Urine Amount (Catheter) 500 / 500 Indwelling Urethral Catheter 500 / 500 Gastric Drainage 30 / 30 Left Nare Nasogastric Tube 30 / 30 Other: # Bowel Movements 0 0 - Urinary Catheter Management Indwelling Urethral Catheter Cath placed during this visit: yes Reason for continuing: Hourly intake/output Insertion date: 06/20/18 Insertion time: 21:24 Objective Laboratory Results - last 24 hr 06/21/18 06/21/18 06/21/18 16:30 17:22 22:11 WBC RBC Hgb Hct MCV MCH MCHC RDW Plt Count MPV APTT Sodium Potassium Chloride Carbon Dioxide Anion Gap BUN Creatinine Estimated GFR POC Glucose 133 H Random Glucose Calcium Phosphorus Magnesium Total Bilirubin AST ALT Alkaline Phosphatase Troponin I 9.08 H* Total Protein Albumin Triglycerides Cholesterol LDL Cholesterol, Calc HDL Cholesterol Cholesterol/HDL Ratio TSH Urine Eosinophils Ur Random Creatinine 133 Ur Random Sodium 9 06/21/18 06/22/18 06/22/18 23:31 00:16 05:24 WBC RBC Hgb Hct MCV MCH MCHC RDW Plt Count MPV APTT 32.9 H Sodium Potassium Chloride Carbon Dioxide Anion Gap BUN Creatinine Estimated GFR POC Glucose 184 H 180 H Random Glucose Calcium Phosphorus Magnesium Total Bilirubin AST ALT Alkaline Phosphatase Troponin I Total Protein Albumin Triglycerides Cholesterol LDL Cholesterol, Calc HDL Cholesterol Cholesterol/HDL Ratio TSH Urine Eosinophils Ur Random Creatinine Ur Random Sodium 06/22/18 06/22/18 06/22/18 06:20 06:20 06:20 WBC 5.2 RBC 3.51 L Hgb 11.0 L Hct 32.7 L MCV 93.4 MCH 31.5 MCHC 33.7 RDW 17.3 H Plt Count 59 L MPV 10.4 APTT 31.9 H Sodium 139 Potassium 3.9 Chloride 106 Carbon Dioxide 22.1 Anion Gap 11 BUN 20 H Creatinine 1.37 H Estimated GFR 51 L POC Glucose Random Glucose 132 H Calcium 8.4 L Phosphorus 3.3 Magnesium 1.7 Total Bilirubin 0.9 AST 98 H ALT 58 Alkaline Phosphatase 68 Troponin I 6.11 H* Total Protein 6.6 Albumin 2.7 L Triglycerides 199 H Cholesterol 115 L LDL Cholesterol, Calc 37 HDL Cholesterol 37.8 L Cholesterol/HDL Ratio 3.04 TSH 2.260 Urine Eosinophils Ur Random Creatinine Ur Random Sodium 06/22/18 06/22/18 06/22/18 11:19 13:40 15:50 WBC RBC Hgb Hct MCV MCH MCHC RDW Plt Count MPV APTT 35.0 H Sodium Potassium Chloride Carbon Dioxide Anion Gap BUN Creatinine Estimated GFR POC Glucose 162 H Random Glucose Calcium Phosphorus Magnesium Total Bilirubin AST ALT Alkaline Phosphatase Troponin I Total Protein Albumin Triglycerides Cholesterol LDL Cholesterol, Calc HDL Cholesterol Cholesterol/HDL Ratio TSH Urine Eosinophils None seen Ur Random Creatinine Ur Random Sodium 06/22/18 17:05 WBC RBC Hgb Hct MCV MCH MCHC RDW Plt Count MPV APTT Sodium Potassium Chloride Carbon Dioxide Anion Gap BUN Creatinine Estimated GFR POC Glucose 198 H Random Glucose Calcium Phosphorus Magnesium Total Bilirubin AST ALT Alkaline Phosphatase Troponin I Total Protein Albumin Triglycerides Cholesterol LDL Cholesterol, Calc HDL Cholesterol Cholesterol/HDL Ratio TSH Urine Eosinophils Ur Random Creatinine Ur Random Sodium Microbiology 06/21/18 02:10 Gram Stain - Final Sputum - Endotracheal Sputum Culture - Preliminary 06/20/18 20:50 Aerobic Blood Culture - Preliminary Blood - Peripheral No growth in 2 days Anaerobic Blood Culture - Preliminary No growth in 2 days 06/20/18 21:15 Urine Culture - Final Catheterized Urine No growth in 48 hours Review/Management - Diagnosis (1) Encephalopathy Code(s): G93.40 - Encephalopathy, unspecified Status: Acute Current Visit: Yes - Review/Management Plan: most likely hypoxic encephalopathy. CT brain normal
[2018-06-23] MEDS: Dexmedetomidine Inj 200 MCG in Sodium Chlor 0.9% Inj 48 ML IV.CONT PRN ×7 (02:18→21:59)
[2018-06-23] MEDS: Insulin NovoLOG Aspart Correctional Sugar Inj SQ SCH ×5 (03:54→23:54)
[2018-06-23 03:58] LABS: Hematocrit 33.5 % (39.0-51.0); Hemoglobin 11.2 gm/dL (13.0-17.0); Mean Corpuscular HGB Conc 33.5 % (32.0-36.0); Mean Corpuscular Hemoglobin 31.2 pg (27.0-34.0); Mean Corpuscular Volume 93.2 fL (80.0-100.0); Mean Platelet Volume 10.3 fL (7.0-11.0); Platelet Count 51 th/mm3 (150-450); Red Cell Distribution Width 16.6 % (11.6-17.2); White Blood Count 4.8 th/mm3 (4.0-11.0)
[2018-06-23] MEDS ORDERED: Etomidate Inj 40 MG/20 ML Vial IV.PUSH ONE (04:37)
[2018-06-23 04:51] LABS: ABG Base Excess -4.9 mmol/L (-2-2); ABG PCO2 29 mmHg (38-42); ABG PO2 64 mmHG (61-120)
--- NOTE | 2018-06-23 05:11 | P.PCN ---
Date of procedure: 06/23/18 Pre-op diagnosis: Acute hypoxemic respiratory failure Post-op diagnosis: same Procedure: DATE: 06/23/2018 PROCEDURE: Orotracheal intubation INDICATION: Acute respiratory failure DETAILS OF PROCEDURE The patient was placed in optimal position and preoxygenated with 100% FiO2 via bag valve mask. At the start oxygen saturation was 92%. The patient was administered 20 milligrams etomidate IV and 50 milligrams rocuronium IV. I entered the oropharynx with a size 4 laryngoscope blade and obtained a grade 2 view of the airway. On single attempt a size 8.0 cuffed endotracheal tube was passed through the vocal cords. Correct tube location was confirmed with end tidal CO2 detector and by auscultating over bilateral lung woodard. The endotracheal tube was secured with adhesive tape at a depth of 24 cm at the lips. The patient was connected to the ventilator. The patient tolerated the procedure well without any apparent complications. Oxygen saturations were maintained greater than 95% all times. STAT chest x-ray pending at time of dictation.
[2018-06-23] MEDS: Chlorhexidine Gluconate 2% 1 Pack (2 Cloths) TOPICAL SCH (06:06)
[2018-06-23 06:19] LABS: ABG Base Excess -7.6 mmol/L (-2-2); ABG PCO2 43 mmHg (38-42); ABG PO2 84 mmHG (61-120)
--- NOTE | 2018-06-23 07:26 | XR ---
EXAM DATE: 06/23/2018 6:59 AM EDT AGE/SEX: 72 years / Male INDICATIONS: Intubation. CLINICAL DATA: This is the patient's subsequent encounter. Patient reports that signs and symptoms h ave been present for 3 days and indicates a pain score of Nonresponsive. MEDICAL/SURGICAL HISTORY: Non-responsive. Non-responsive. [place] [facility] [place]ograph FINDINGS: A single AP view of the chest demonstrates cardiomegaly with bilateral perihilar airspace disease mil dly improved. Endotracheal tube 3 cm above the [place]. The nasogastric tube and left-sided defibrilla tor unchanged. The cardiomediastinal contours are unremarkable. Osseous structures are intact. CONCLUSION: Improving bilateral perihilar pulmonary edema. Electronically signed by: Acosta Parra MD 06/23/2018 7:25 AM EDT
--- NOTE | 2018-06-23 08:03 | P.PNCC ---
Subjective Subjective Remarks/Hospital Course: Elderly male with a medical history significant for viral cardiomyopathy who was traveling on vacation from [place] with his family in [place] and today developed chest pain with worsening shortness of breath for which EMS was called by family. Patient was extremely short of breath on the arrival and hypoxic and they proceeded with endotracheal intubation and patient was transferred to the ER. In the ER it was noted that his cuff was leaking hence ET tube was exchanged by ER physician and patient was placed on mechanical ventilation. Per his family he has a defibrillator and is followed by his buffer copper in [place] whom he saw in December of this year. He reportedly does not take any diuretic. Chest x-ray done in the ER revealed pulmonary edema. EKG revealed atrial fibrillation. Patient was accepted for admission by critical care medicine service. When I evaluated him in the ER he was sedated with propofol, orally intubated on mechanical ventilation. History was obtained by reviewing records, discussion with family as well as ER physician. Subjective 06/21: Afebrile. Hemodynamically stable. Troponin bumped 14. Started on heparin drip. Sedated with propofol and fentanyl drips. Arousable the ventilator and is very agitated will attempt to withdrawal tube. PEEP down to 5. 06/22: Sedated, orally intubated on mechanical ventilation. Gets agitated unenlightening sedation so Precedex added in addition to propofol and fentanyl. CPAP trials ongoing to decide extubation. Cardiac cath postponed by Dr. Noonan in view of questionable neurologic status. 06/23: Patient was extubated yesterday however was requiring significant amount of O2 post extubation with a facemask as well as nasal cannula. This morning around 4 AM due to increased work of breathing and hypoxia he was reintubated by Dr. Kimble and placed back on mechanical ventilation. Currently he is sedated , orally intubated on mechanical ventilation. Postintubation chest x-ray shows ET tube in appropriate position and pulmonary edema pattern with perihilar infiltrates bilaterally Objective Vital Signs / I&O: Vital Signs 06/22/18 08:00 06/22/18 08:30 06/22/18 09:00 Temperature 99.4 F Pulse Rate 69 63 63 Respiratory Rate 16 16 16 Blood Pressure 113/58 L 106/53 L 97/51 L Pulse Oximetry 99 98 98 06/22/18 09:30 06/22/18 10:00 06/22/18 10:31 Temperature Pulse Rate 65 65 90 Respiratory Rate 16 16 29 H Blood Pressure 106/52 L 108/53 L 111/57 L Pulse Oximetry 99 97 95 06/22/18 11:00 06/22/18 11:18 06/22/18 11:30 Temperature Pulse Rate 71 69 68 Respiratory Rate 16 16 16 Blood Pressure 100/50 L 104/51 L Pulse Oximetry 96 98 06/22/18 12:00 06/22/18 12:18 06/22/18 12:30 Temperature 100.1 F H Pulse Rate 70 65 Respiratory Rate 16 16 16 Blood Pressure 104/52 L 90/53 L Pulse Oximetry 97 98 92 L 06/22/18 13:00 06/22/18 13:30 06/22/18 14:00 Temperature Pulse Rate 64 63 77 Respiratory Rate 16 16 16 Blood Pressure 92/54 L 97/51 L 97/51 L Pulse Oximetry 95 97 98 06/22/18 14:30 06/22/18 14:48 06/22/18 15:00 Temperature Pulse Rate 74 76 73 Respiratory Rate 24 19 14 Blood Pressure 106/59 L 108/55 L Pulse Oximetry 96 97 06/22/18 15:24 06/22/18 15:30 06/22/18 16:00 Temperature Pulse Rate 82 82 Respiratory Rate 17 19 Blood Pressure 109/58 L 109/58 L Pulse Oximetry 93 L 96 87 L 06/22/18 16:30 06/22/18 17:00 06/22/18 17:01 Temperature 100.3 F H Pulse Rate 80 81 82 Respiratory Rate 17 17 18 Blood Pressure 111/54 L 108/59 L Pulse Oximetry 90 L 94 L 93 L 06/22/18 17:30 06/22/18 18:00 06/22/18 18:30 Temperature Pulse Rate 81 80 79 Respiratory Rate 19 18 18 Blood Pressure 111/59 L 113/59 L 109/57 L Pulse Oximetry 91 L 97 97 06/22/18 19:00 06/22/18 19:30 06/22/18 20:00 Temperature 99.1 F Pulse Rate 78 74 72 Respiratory Rate 17 19 18 Blood Pressure 103/56 L 102/56 L 100/55 L Pulse Oximetry 96 96 97 06/22/18 20:30 06/22/18 21:00 06/22/18 21:30 Temperature Pulse Rate 70 70 66 Respiratory Rate 16 11 L 17 Blood Pressure 103/57 L 105/57 L 106/56 L Pulse Oximetry 95 93 L 96 06/22/18 22:00 06/22/18 22:15 06/22/18 22:21 Temperature Pulse Rate 66 67 Respiratory Rate 16 17 Blood Pressure 104/58 L Pulse Oximetry 96 98 06/22/18 22:30 06/22/18 23:00 06/22/18 23:31 Temperature Pulse Rate 73 74 71 Respiratory Rate 18 16 19 Blood Pressure 106/57 L 109/58 L 106/54 L Pulse Oximetry 96 94 L 86 L 06/23/18 00:00 06/23/18 00:30 06/23/18 01:00 Temperature 97.9 F Pulse Rate 72 70 69 Respiratory Rate 16 18 18 Blood Pressure 115/59 L 112/55 L 111/57 L Pulse Oximetry 93 L 93 L 93 L 06/23/18 01:30 06/23/18 01:35 06/23/18 01:36 Temperature Pulse Rate 68 70 Respiratory Rate 18 20 Blood Pressure 116/56 L Pulse Oximetry 92 L 93 L 06/23/18 02:00 06/23/18 02:30 06/23/18 03:00 Temperature Pulse Rate 75 74 74 Respiratory Rate 18 17 18 Blood Pressure 112/55 L 122/58 L 113/58 L Pulse Oximetry 92 L 94 L 93 L 06/23/18 03:30 06/23/18 04:00 06/23/18 04:30 Temperature 100.1 F H Pulse Rate 73 75 82 Respiratory Rate 17 18 21 Blood Pressure 118/59 L 124/58 L 139/62 Pulse Oximetry 94 L 91 L 88 L 06/23/18 04:59 06/23/18 05:00 06/23/18 05:03 Temperature Pulse Rate 83 79 80 Respiratory Rate 25 H 21 0 L Blood Pressure 134/60 126/60 138/63 Pulse Oximetry 89 L 88 L 89 L 06/23/18 05:05 06/23/18 05:07 06/23/18 05:10 Temperature Pulse Rate 79 76 90 Respiratory Rate 16 16 16 Blood Pressure 134/67 129/67 165/81 H Pulse Oximetry 88 L 94 L 95 06/23/18 05:13 06/23/18 05:23 06/23/18 05:25 Temperature Pulse Rate 108 H 100 H Respiratory Rate 16 16 16 Blood Pressure 194/93 H Pulse Oximetry 92 L 96 06/23/18 05:30 06/23/18 05:42 06/23/18 06:00 Temperature Pulse Rate 115 H 108 H 115 H Respiratory Rate 16 16 21 Blood Pressure 188/91 H 152/74 H 185/92 H Pulse Oximetry 96 99 97 06/23/18 06:35 06/23/18 07:00 Temperature Pulse Rate 87 80 Respiratory Rate 19 17 Blood Pressure 85/50 L 85/51 L Pulse Oximetry 98 99 Intake & Output 06/22/18 06/23/18 06/23/18 18:59 06:59 18:59 Intake Total 747 / 747 250 / 250 120 / 120 Output Total 650 / 650 550 / 550 Balance 97 / 97 250 / 250 -430 / -430 Weight 72 kg Intake: IV 627 / 627 250 / 250 Precedex Inj 200 MCG In NS Inj 100 / 100 150 / 150 48 ML @ 0.2 MCG/KG/HR 3.72 mls/ hr IV.CONT TITRATE PRN Rx#: [id number] Heparin/D5W 25,000 U/250 mL 25, 79 / 79 000 unit In 250 ml @ 800 UNITS/ HR 8 mls/hr IV.CONT TITRATE PRN Rx#:[id number] Diprivan 1000 mg/100 ml Inj 1, 180 / 180 000 mg In 100 ml @ 5 MCG/KG/MIN 2.1 mls/hr IV.CONT TITRATE PRN Rx#:[id number] NS Inj 1,000 ML @ 42 mls/hr IV. 154 / 154 CONT .[id number] [facility] Rx#:[id number] Maxipime Inj 2,000 MG In NS Inj 100 / 100 100 / 100 100 ML @ 200 mls/hr IV.SIG Q12H [facility] Rx#:[id number] fentaNYL 10 mcg/mL Premix Drip 14 / 14 2,500 mcg In 250 ml @ 50 MCG/HR 5 mls/hr IV.SIG TITRATE PRN Rx #:[id number] Oral 0 / 0 Water Bolus Amount 120 / 120 120 / 120 Output: Urine Amount (Catheter) 550 / 550 550 / 550 Indwelling Urethral Catheter 550 / 550 550 / 550 Gastric Drainage 100 / 100 Left Nare Nasogastric Tube 100 / 100 Other: # Bowel Movements 0 0 Result Diagrams: 06/23/18 03:36 06/22/18 06:20 Imaging: Chest X-Ray 06/20/18 20:36 CONCLUSION: Bilateral perihilar infiltrates and mild cardiomegaly. Please see above. Abdomen/Bladder Ultrasound 06/21/18 00:00 CONCLUSION: 1. Increased echogenicity of both kidneys typical of chronic parenchymal disease. 2. No evidence of acute obstructive uropathy. 3. Bilateral benign appearing renal cysts. Head CT 06/21/18 00:00 CONCLUSION: 1. Aging brain with mild volume loss. 2. No evidence of acute infarct, hemorrhage, mass or edema. . Chest X-Ray 06/21/18 06:00 CONCLUSION: Stable exam. Chest X-Ray 06/22/18 06:00 CONCLUSION: Stable chest x-ray with airspace consolidation in the left midlung zone and right lung base. Chest X-Ray 06/23/18 00:00 CONCLUSION: Improving bilateral perihilar pulmonary edema. Objective Remarks: GENERAL: 72 yoM orotracheally intubated SKIN: Warm and dry. Chronic venous stasis bilateral lower extremities HEAD: Atraumatic. Normocephalic. EYES: Pupils equal and round. No scleral icterus. No injection or drainage. ENT: No nasal bleeding or discharge. Mucous membranes pink and moist. NECK: Trachea midline. No JVD. CARDIOVASCULAR: Regular rate and rhythm. S1, S2 predose for without murmur RESPIRATORY: Essentially clear anteriorly. No wheezing GASTROINTESTINAL: Abdomen soft, non-tender, slightly protuberant. Hypoactive bowel sounds appreciated MUSCULOSKELETAL: Extremities with trace bilateral lower extremity edema. No obvious deformities. NEUROLOGICAL: Sedated, arousable but not following commands. Moves all 4 extremities spontaneously. Assessment and Plan - Assessment and Plan Plan: Elderly male with: Chest pain Acute respiratory failure on mechanical ventilation Acute decompensated CHF - systolic and dialstolic EF 40% 2017 Staph pneumonia B/L carotid Stenosis 40-59% erectile Dysfunction PAD LBBB- chronic Cardiomyopathy - Dilated NSTEMI Atrial fibrillation Diabetes mellitus Hypertension COPD History of pacemaker/defibrillator placement Diabetes mellitus type 2 uncontrolled with hyperglycemia Hyperlipidemia Glaucoma Normocytic anemia Thrombocytopenia Acute kidney injury Hypoalbuminemia Cystitis Plan: Neuro: Sedation with propofol and fentanyl drips maintain RASS -2, daily sedation vacation. Acetaminophen 650 every 6 hours as needed fever. Follow neuro status. Holding gabapentin 300 mg 3 times daily and baclofen 10 mg 3 times daily/home medications. Continue brimonidine 0.15% 3 times daily Cardiovascular: Non-ST elevation DE. cardiology consult requested in view of decompensated CHF, history of cardiomyopathy and positive troponin. Obtain medical records from patient's buffer [facility] in [place] in a.m. currently A. fib appears to be rate controlled. Continue aspirin 162 mg daily. 81 mg at home started on low-dose beta-ana metoprolol tartrate 12.5 mg twice daily. No ENA inhibitor secondary to acute kidney injury.. Currently on heparin drip due to elevated troponin. Holding cilostazol 50 mg twice daily. Resume simvastatin 20 mg daily/40 mg pravastatin substituted. Cardiac cath postponed per Dr. Noonan till improvement in neurologic status. Resume Lasix for diuresis ordered 20 mg IV twice daily Pulmonary: Continue mechanical ventilation, vent bundle, bronchodilators as needed. Peep +5. Diuresis held due to acute kidney injury. Albuterol/ ipratropium every 4 hours with albuterol aerosols every 2 hours as needed dyspnea. CPAP trials to decide extubation GI/liver: Hold tube feeds for possible extubation following CPAP trial today. Renal/: Strict intake output, monitor and replete electrolytes, follow BUN/ creatinine. Diuresis with Lasix ID: Watch for fever/leukocytosis. Cefepime 2 g IV every 12 hours. Influenza a and B-. Blood cultures, urine negative. Sputum cultures growing staph aureus. Will add Zyvox 600 mg IV every 12 hourly on 06/23. Endocrine: Holding metformin thousand milligrams twice daily, sitagliptin 100 mg daily sliding scale insulin with aspart insulin high protocol for glycemic control. Prophylaxis: PPI/SCDs/heparin drip Condition critical Time spent on critical care excluding procedures 35 minutes.
[2018-06-23] MEDS: Brimonidine 0.15% Opth Drops 5 ML Bottle EACH EYE SCH ×3 (09:00→17:39)
[2018-06-23] MEDS: Hypromellose 0.3% Opth Gel 10 GM Bottle EACH EYE SCH ×2 (09:00→20:45)
[2018-06-23] MEDS: Metoprolol Tartrate 25 MG Tablet PO SCH ×2 (09:01→20:44)
[2018-06-23] MEDS: Heparin Drip 25,000 UNIT/250 ML BAG IV.CONT PRN (09:01)
--- NOTE | 2018-06-23 11:33 | P.PNCA ---
Subjective Interval history: failed extubation, not following commands per Dr Johnson while extubated, requiring sedation for vent management Physical Exam Vital signs: Vital Signs 06/22/18 12:00 06/22/18 12:18 06/22/18 12:30 Temperature 100.1 F H Pulse Rate 70 65 Respiratory Rate 16 16 16 Blood Pressure 104/52 L 90/53 L Pulse Oximetry 97 98 92 L 06/22/18 13:00 06/22/18 13:30 06/22/18 14:00 Temperature Pulse Rate 64 63 77 Respiratory Rate 16 16 16 Blood Pressure 92/54 L 97/51 L 97/51 L Pulse Oximetry 95 97 98 06/22/18 14:30 06/22/18 14:48 06/22/18 15:00 Temperature Pulse Rate 74 76 73 Respiratory Rate 24 19 14 Blood Pressure 106/59 L 108/55 L Pulse Oximetry 96 97 06/22/18 15:24 06/22/18 15:30 06/22/18 16:00 Temperature Pulse Rate 82 82 Respiratory Rate 17 19 Blood Pressure 109/58 L 109/58 L Pulse Oximetry 93 L 96 87 L 06/22/18 16:30 06/22/18 17:00 06/22/18 17:01 Temperature 100.3 F H Pulse Rate 80 81 82 Respiratory Rate 17 17 18 Blood Pressure 111/54 L 108/59 L Pulse Oximetry 90 L 94 L 93 L 06/22/18 17:30 06/22/18 18:00 06/22/18 18:30 Temperature Pulse Rate 81 80 79 Respiratory Rate 19 18 18 Blood Pressure 111/59 L 113/59 L 109/57 L Pulse Oximetry 91 L 97 97 06/22/18 19:00 06/22/18 19:30 06/22/18 20:00 Temperature 99.1 F Pulse Rate 78 74 72 Respiratory Rate 17 19 18 Blood Pressure 103/56 L 102/56 L 100/55 L Pulse Oximetry 96 96 97 06/22/18 20:30 06/22/18 21:00 06/22/18 21:30 Temperature Pulse Rate 70 70 66 Respiratory Rate 16 11 L 17 Blood Pressure 103/57 L 105/57 L 106/56 L Pulse Oximetry 95 93 L 96 06/22/18 22:00 06/22/18 22:15 06/22/18 22:21 Temperature Pulse Rate 66 67 Respiratory Rate 16 17 Blood Pressure 104/58 L Pulse Oximetry 96 98 06/22/18 22:30 06/22/18 23:00 06/22/18 23:31 Temperature Pulse Rate 73 74 71 Respiratory Rate 18 16 19 Blood Pressure 106/57 L 109/58 L 106/54 L Pulse Oximetry 96 94 L 86 L 06/23/18 00:00 06/23/18 00:30 06/23/18 01:00 Temperature 97.9 F Pulse Rate 72 70 69 Respiratory Rate 16 18 18 Blood Pressure 115/59 L 112/55 L 111/57 L Pulse Oximetry 93 L 93 L 93 L 06/23/18 01:30 06/23/18 01:35 06/23/18 01:36 Temperature Pulse Rate 68 70 Respiratory Rate 18 20 Blood Pressure 116/56 L Pulse Oximetry 92 L 93 L 06/23/18 02:00 06/23/18 02:30 06/23/18 03:00 Temperature Pulse Rate 75 74 74 Respiratory Rate 18 17 18 Blood Pressure 112/55 L 122/58 L 113/58 L Pulse Oximetry 92 L 94 L 93 L 06/23/18 03:30 06/23/18 04:00 06/23/18 04:30 Temperature 100.1 F H Pulse Rate 73 75 82 Respiratory Rate 17 18 21 Blood Pressure 118/59 L 124/58 L 139/62 Pulse Oximetry 94 L 91 L 88 L 06/23/18 04:59 06/23/18 05:00 06/23/18 05:03 Temperature Pulse Rate 83 79 80 Respiratory Rate 25 H 21 0 L Blood Pressure 134/60 126/60 138/63 Pulse Oximetry 89 L 88 L 89 L 06/23/18 05:05 06/23/18 05:07 06/23/18 05:10 Temperature Pulse Rate 79 76 90 Respiratory Rate 16 16 16 Blood Pressure 134/67 129/67 165/81 H Pulse Oximetry 88 L 94 L 95 06/23/18 05:13 06/23/18 05:23 06/23/18 05:25 Temperature Pulse Rate 108 H 100 H Respiratory Rate 16 16 16 Blood Pressure 194/93 H Pulse Oximetry 92 L 96 06/23/18 05:30 06/23/18 05:42 06/23/18 06:00 Temperature Pulse Rate 115 H 108 H 115 H Respiratory Rate 16 16 21 Blood Pressure 188/91 H 152/74 H 185/92 H Pulse Oximetry 96 99 97 06/23/18 06:35 06/23/18 07:00 06/23/18 09:36 Temperature Pulse Rate 87 80 Respiratory Rate 19 17 16 Blood Pressure 85/50 L 85/51 L Pulse Oximetry 98 99 100 Intake & Output 06/22/18 06/23/18 06/23/18 18:59 06:59 18:59 Intake Total 747 / 747 250 / 250 199 / 199 Output Total 650 / 650 550 / 550 Balance 97 / 97 250 / 250 -351 / -351 Weight 72 kg Intake: IV 627 / 627 250 / 250 79 / 79 Precedex Inj 200 MCG In NS Inj 100 / 100 150 / 150 48 ML @ 0.2 MCG/KG/HR 3.72 mls/ hr IV.CONT TITRATE PRN Rx#: [id number] Heparin/D5W 25,000 U/250 mL 25, 79 / 79 79 / 79 000 unit In 250 ml @ 800 UNITS/ HR 8 mls/hr IV.CONT TITRATE PRN Rx#:[id number] Diprivan 1000 mg/100 ml Inj 1, 180 / 180 000 mg In 100 ml @ 5 MCG/KG/MIN 2.1 mls/hr IV.CONT TITRATE PRN Rx#:[id number] NS Inj 1,000 ML @ 42 mls/hr IV. 154 / 154 CONT .[id number] [facility] Rx#:[id number] Maxipime Inj 2,000 MG In NS Inj 100 / 100 100 / 100 100 ML @ 200 mls/hr IV.SIG Q12H [facility] Rx#:[id number] fentaNYL 10 mcg/mL Premix Drip 14 / 14 2,500 mcg In 250 ml @ 50 MCG/HR 5 mls/hr IV.SIG TITRATE PRN Rx #:[id number] Oral 0 / 0 Water Bolus Amount 120 / 120 120 / 120 Output: Urine Amount (Catheter) 550 / 550 550 / 550 Indwelling Urethral Catheter 550 / 550 550 / 550 Gastric Drainage 100 / 100 Left Nare Nasogastric Tube 100 / 100 Other: # Bowel Movements 0 0 - Urinary Catheter Management Indwelling Urethral Catheter Cath placed during this visit: yes Reason for continuing: Hourly intake/output Insertion date: 06/20/18 Insertion time: 21:24 Assessment and Plan - Assessment (1) Cardiomyopathy Code(s): I42.9 - Cardiomyopathy, unspecified Status: Acute (2) Cardiomyopathy Code(s): I42.9 - Cardiomyopathy, unspecified Status: Acute (3) PVD (peripheral vascular disease) Code(s): I73.9 - Peripheral vascular disease, unspecified Status: Acute (4) PVD (peripheral vascular disease) Code(s): I73.9 - Peripheral vascular disease, unspecified Status: Acute (5) Tobacco abuse Code(s): Z72.0 - Tobacco use Status: Acute (6) Respiratory failure Code(s): J96.90 - Respiratory failure, unspecified, unspecified whether with hypoxia or hypercapnia Status: Acute (7) Non-ST elevated myocardial infarction (non-STEMI) Code(s): I21.4 - Non-ST elevation (NSTEMI) myocardial infarction Status: Acute (8) Pulmonary edema cardiac cause Code(s): I50.1 - Left ventricular failure, unspecified Status: Acute - Plan 1.) NSTEMI - respiratory failure, anoxic encephalopathy, baseline ef=20%; continue supportive care with aspirin, heparin, vent; consider cath if/when neurologic recovery occurs and hematology clears for full anticoagulation with heparin, aggrastat, plavix and aspirin if necessary, hematology consult placed, f/u palliative care consult, d/w Dr Forte, nurse, and children at length and in detail (6) Respiratory failure Qualifiers: Chronicity: acute Respiratory failure complication: hypoxia Qualified Code(s ): J96.01 - Acute respiratory failure with hypoxia
--- NOTE | 2018-06-23 11:49 | P.PNNEU ---
Subjective Subjective Comments: on vent and sedated Active Medications: Active Medications Acetaminophen (Tylenol Liq) 650 mg NG/OG Q6H PRN PRN Reason: FEVER Last Admin: 06/22/18 17:26 Dose: 650 mg Albuterol (Duoneb Neb ([facility])) 1 ampul NEB Q4HR NEB [facility] Last Admin: 06/23/18 09:39 Dose: 1 ampul Artificial Tears (Genteal Severe Dry Eye Relief 0.3% Opth Gel) 1 drops EACH EYE BID [facility] Last Admin: 06/23/18 09:00 Dose: 1 drops Aspirin (Aspirin Chew) 162 mg PO DAILY [facility] Last Admin: 06/23/18 09:00 Dose: 162 mg Brimonidine Tartrate (Alphagan P 0.15% Opth Drops) 1 drops EACH EYE TID [facility] Last Admin: 06/23/18 09:00 Dose: 1 drops Chlorhexidine Gluconate (Chlorhexidine 2% Cloth) 3 pack TOPICAL DAILY@0400 [facility] Stop: 06/26/18 03:59 Last Admin: 06/23/18 06:06 Dose: 3 pack Chlorhexidine Gluconate (Chlorhexidine 2% Cloth) 3 pack TOPICAL DAILY@0400 PRN PRN Reason: Extra cloth needed Stop: 06/26/18 03:59 Dextrose (D50w Vial) 50 ml IV.PUSH UNSCH PRN PRN Reason: PER HYPOGLYCEMIA PROTOCOL Furosemide (Lasix Inj) 20 mg IV.PUSH BID@0900,1800 [facility] Last Admin: 06/23/18 09:01 Dose: 20 mg Glucagon (Glucagon Inj) 1 mg OTHER PRN PRN PRN Reason: for Hypoglycemia Protocol Propofol (Diprivan 1000 Mg/100 Ml Inj) 1,000 mg in 100 mls @ 2.1 mls/hr IV.CONT TITRATE PRN; Protocol PRN Reason: Per Protocol Last Titration: 06/22/18 15:01 Dose: Infused Fentanyl (Fentanyl 10 Mcg/Ml Premix Drip) 2,500 mcg in 250 mls @ 5 mls/hr IV.SIG TITRATE PRN; Protocol PRN Reason: Per Protocol Last Titration: 06/22/18 15:03 Dose: Infused Magnesium Sulfate Inj 4 gm/ (Sodium Chloride) 100 mls @ 50 mls/hr IV.SIG UNSCH PRN PRN Reason: For Magnesium 0.9 - 1.1 mg/dL Magnesium Sulfate Inj 2 gm/ (Sodium Chloride) 100 mls @ 50 mls/hr IV.SIG UNSCH PRN PRN Reason: For Magnesium 1.2 - 1.6 mg/dL Potassium Chloride (Kcl 40 Meq Premix Inj) 40 meq in 100 mls @ 50 mls/hr IV.SIG Q2H PRN PRN Reason: For Potassium 2.8 - 3.2 mEq/L Potassium Chloride (Kcl 20 Meq Premix Inj) 20 meq in 100 mls @ 50 mls/hr IV.SIG Q2H PRN PRN Reason: For Potassium 3.3 - 3.5 mEq/L Potassium Chloride (Kcl 20 Meq Premix Inj) 20 meq in 100 mls @ 50 mls/hr IV.SIG Q2H PRN PRN Reason: For Potassium 2.8 - 3.2 mEq/L Potassium Phosphate 30 mmol/ (Sodium Chloride) 260 mls @ 42 mls/hr IV.SIG UNSCH PRN PRN Reason: SEE LABEL COMMENTS Sodium Phosphate 30 mmol/ (Sodium Chloride) 260 mls @ 42 mls/hr IV.SIG UNSCH PRN PRN Reason: For Phosphorus < 2.5 mg/dL Potassium Chloride (Kcl 40 Meq Premix Inj) 40 meq in 100 mls @ 25 mls/hr IV.SIG UNSCH PRN PRN Reason: For Potassium 3.3 - 3.5 mEq/L Cefepime HCl 2,000 mg/ Sodium (Chloride) 100 mls @ 200 mls/hr IV.SIG Q12H [facility] Last Infusion: 06/23/18 00:21 Dose: Infused Linezolid (Zyvox 600 Mg Premix) 300 mls @ 300 mls/hr IV.SIG Q12H [facility] Dexmedetomidine HCl 200 mcg/ (Sodium Chloride) 50 mls @ 3.6 mls/hr IV.CONT TITRATE PRN; Protocol PRN Reason: Per Protocol Last Admin: 06/23/18 09:14 Dose: 0.2 mcg/kg/hr, 3.6 mls/hr Insulin Aspart (Novolog Insulin Correctional Sugar Inj) 0 unit SQ Q6HR [facility]; Protocol Last Admin: 06/23/18 06:07 Dose: Not Given Lansoprazole (Prevacid Solutab) 30 mg NG/OG DAILY [facility] Last Admin: 06/23/18 09:01 Dose: 30 mg Magnesium Oxide (Mag-Ox) 800 mg PO UNSCH PRN PRN Reason: For Magnesium 1.2 - 1.6 mg/dL Metoprolol Tartrate (Lopressor) 12.5 mg PO BID [facility] Last Admin: 06/23/18 09:01 Dose: 12.5 mg Miscellaneous (Pill Splitter) 1 each OTHER UNSCH PRN PRN Reason: SEE LABEL COMMENTS Potassium Bicarb/Potassium Chloride (K-Lyte Cl Eff) 50 meq PO UNSCH PRN PRN Reason: For Potassium 3.3 - 3.5 mEq/L Potassium Phosphate (K-Phos Original) 2,000 mg PO Q4H PRN PRN Reason: Phosphorus Less Than 2.5 mg/dL Potassium Phosphate (K-Phos Original) 2,000 mg PO UNSCH PRN PRN Reason: SEE LABEL COMMENTS Pravastatin Sodium (Pravachol) 40 mg PO DAILY@1800 [facility] Last Admin: 06/22/18 17:26 Dose: 40 mg Sodium Chloride (Ns Flush) 2 ml IV.FLUSH PRN PRN PRN Reason: FLUSH AFTER USING IV ACCESS Allergies/Adverse Reactions: Allergies Allergy/AdvReac Type Severity Reaction Status Date / Time bee venom protein (honey bee) Allergy Difficulty Verified 06/20/18 22:04 [Bee sting] Breathing hydromorphone Allergy Nausea/Vomi Verified 06/20/18 22:04 ting pregabalin [From Lyrica] Allergy Anaphylaxis Verified 06/20/18 22:04 Physical Exam Vital signs: Vital Signs 06/22/18 12:00 06/22/18 12:18 06/22/18 12:30 Temperature 100.1 F H Pulse Rate 70 65 Respiratory Rate 16 16 16 Blood Pressure 104/52 L 90/53 L Pulse Oximetry 97 98 92 L 06/22/18 13:00 06/22/18 13:30 06/22/18 14:00 Temperature Pulse Rate 64 63 77 Respiratory Rate 16 16 16 Blood Pressure 92/54 L 97/51 L 97/51 L Pulse Oximetry 95 97 98 06/22/18 14:30 06/22/18 14:48 06/22/18 15:00 Temperature Pulse Rate 74 76 73 Respiratory Rate 24 19 14 Blood Pressure 106/59 L 108/55 L Pulse Oximetry 96 97 06/22/18 15:24 06/22/18 15:30 06/22/18 16:00 Temperature Pulse Rate 82 82 Respiratory Rate 17 19 Blood Pressure 109/58 L 109/58 L Pulse Oximetry 93 L 96 87 L 06/22/18 16:30 06/22/18 17:00 06/22/18 17:01 Temperature 100.3 F H Pulse Rate 80 81 82 Respiratory Rate 17 17 18 Blood Pressure 111/54 L 108/59 L Pulse Oximetry 90 L 94 L 93 L 06/22/18 17:30 06/22/18 18:00 06/22/18 18:30 Temperature Pulse Rate 81 80 79 Respiratory Rate 19 18 18 Blood Pressure 111/59 L 113/59 L 109/57 L Pulse Oximetry 91 L 97 97 06/22/18 19:00 06/22/18 19:30 06/22/18 20:00 Temperature 99.1 F Pulse Rate 78 74 72 Respiratory Rate 17 19 18 Blood Pressure 103/56 L 102/56 L 100/55 L Pulse Oximetry 96 96 97 06/22/18 20:30 06/22/18 21:00 06/22/18 21:30 Temperature Pulse Rate 70 70 66 Respiratory Rate 16 11 L 17 Blood Pressure 103/57 L 105/57 L 106/56 L Pulse Oximetry 95 93 L 96 06/22/18 22:00 06/22/18 22:15 06/22/18 22:21 Temperature Pulse Rate 66 67 Respiratory Rate 16 17 Blood Pressure 104/58 L Pulse Oximetry 96 98 06/22/18 22:30 06/22/18 23:00 06/22/18 23:31 Temperature Pulse Rate 73 74 71 Respiratory Rate 18 16 19 Blood Pressure 106/57 L 109/58 L 106/54 L Pulse Oximetry 96 94 L 86 L 06/23/18 00:00 06/23/18 00:30 06/23/18 01:00 Temperature 97.9 F Pulse Rate 72 70 69 Respiratory Rate 16 18 18 Blood Pressure 115/59 L 112/55 L 111/57 L Pulse Oximetry 93 L 93 L 93 L 06/23/18 01:30 06/23/18 01:35 06/23/18 01:36 Temperature Pulse Rate 68 70 Respiratory Rate 18 20 Blood Pressure 116/56 L Pulse Oximetry 92 L 93 L 06/23/18 02:00 06/23/18 02:30 06/23/18 03:00 Temperature Pulse Rate 75 74 74 Respiratory Rate 18 17 18 Blood Pressure 112/55 L 122/58 L 113/58 L Pulse Oximetry 92 L 94 L 93 L 06/23/18 03:30 06/23/18 04:00 06/23/18 04:30 Temperature 100.1 F H Pulse Rate 73 75 82 Respiratory Rate 17 18 21 Blood Pressure 118/59 L 124/58 L 139/62 Pulse Oximetry 94 L 91 L 88 L 06/23/18 04:59 06/23/18 05:00 06/23/18 05:03 Temperature Pulse Rate 83 79 80 Respiratory Rate 25 H 21 0 L Blood Pressure 134/60 126/60 138/63 Pulse Oximetry 89 L 88 L 89 L 06/23/18 05:05 06/23/18 05:07 06/23/18 05:10 Temperature Pulse Rate 79 76 90 Respiratory Rate 16 16 16 Blood Pressure 134/67 129/67 165/81 H Pulse Oximetry 88 L 94 L 95 06/23/18 05:13 06/23/18 05:23 06/23/18 05:25 Temperature Pulse Rate 108 H 100 H Respiratory Rate 16 16 16 Blood Pressure 194/93 H Pulse Oximetry 92 L 96 06/23/18 05:30 06/23/18 05:42 06/23/18 06:00 Temperature Pulse Rate 115 H 108 H 115 H Respiratory Rate 16 16 21 Blood Pressure 188/91 H 152/74 H 185/92 H Pulse Oximetry 96 99 97 06/23/18 06:35 06/23/18 07:00 06/23/18 09:36 Temperature Pulse Rate 87 80 Respiratory Rate 19 17 16 Blood Pressure 85/50 L 85/51 L Pulse Oximetry 98 99 100 Intake & Output 06/22/18 06/23/18 06/23/18 18:59 06:59 18:59 Intake Total 747 / 747 250 / 250 199 / 199 Output Total 650 / 650 550 / 550 Balance 97 / 97 250 / 250 -351 / -351 Weight 72 kg Intake: IV 627 / 627 250 / 250 79 / 79 Precedex Inj 200 MCG In NS Inj 100 / 100 150 / 150 48 ML @ 0.2 MCG/KG/HR 3.72 mls/ hr IV.CONT TITRATE PRN Rx#: [id number] Heparin/D5W 25,000 U/250 mL 25, 79 / 79 79 / 79 000 unit In 250 ml @ 800 UNITS/ HR 8 mls/hr IV.CONT TITRATE PRN Rx#:[id number] Diprivan 1000 mg/100 ml Inj 1, 180 / 180 000 mg In 100 ml @ 5 MCG/KG/MIN 2.1 mls/hr IV.CONT TITRATE PRN Rx#:[id number] NS Inj 1,000 ML @ 42 mls/hr IV. 154 / 154 CONT .[id number] [facility] Rx#:[id number] Maxipime Inj 2,000 MG In NS Inj 100 / 100 100 / 100 100 ML @ 200 mls/hr IV.SIG Q12H [facility] Rx#:[id number] fentaNYL 10 mcg/mL Premix Drip / 2,500 mcg In 250 ml @ 50 MCG/HR 5 mls/hr IV.SIG TITRATE PRN Rx #:[id number] Oral 0 / 0 Water Bolus Amount 120 / 120 120 / 120 Output: Urine Amount (Catheter) 550 / 550 550 / 550 Indwelling Urethral Catheter 550 / 550 550 / 550 Gastric Drainage 100 / 100 Left Nare Nasogastric Tube 100 / 100 Other: # Bowel Movements 0 0 Narrative: moves ble on own and nl nasal stim test bilat pupil= - Urinary Catheter Management Indwelling Urethral Catheter Cath placed during this visit: yes Reason for continuing: Hourly intake/output Insertion date: 06/20/18 Insertion time: 21:24 Objective Laboratory Results - last 24 hr 06/22/18 06/22/18 06/22/18 06:20 13:40 15:50 WBC RBC Hgb Hct MCV MCH MCHC RDW Plt Count MPV APTT 35.0 H Puncture Site Patient Temperature O2 Saturation ABG pH ABG pCO2 ABG pO2 ABG HCO3 ABG O2 Content ABG Base Excess ABG Methemoglobin Carlos Test Hemoglobin Carboxyhemoglobin O2 Delivery Device Liter Flow Vent Setting Inspired O2 Critical Value POC Glucose Hemoglobin A1c 5.5 Urine Eosinophils None seen 06/22/18 06/22/18 06/22/18 17:05 22:37 23:21 WBC RBC Hgb Hct MCV MCH MCHC RDW Plt Count MPV APTT 37.6 H Puncture Site Patient Temperature O2 Saturation ABG pH ABG pCO2 ABG pO2 ABG HCO3 ABG O2 Content ABG Base Excess ABG Methemoglobin Carlos Test Hemoglobin Carboxyhemoglobin O2 Delivery Device Liter Flow Vent Setting Inspired O2 Critical Value POC Glucose 198 H 146 H Hemoglobin A1c Urine Eosinophils 06/23/18 06/23/18 06/23/18 03:36 03:36 04:34 WBC 4.8 RBC 3.60 L Hgb 11.2 L Hct 33.5 L MCV 93.2 MCH 31.2 MCHC 33.5 RDW 16.6 Plt Count 51 L MPV 10.3 APTT 38.5 H Puncture Site Right radial Patient Temperature 98.6 O2 Saturation 89 L* ABG pH 7.43 H ABG pCO2 29 L ABG pO2 64 ABG HCO3 19 L ABG O2 Content 14.8 ABG Base Excess -4.9 L ABG Methemoglobin 1.7 Carlos Test Present Hemoglobin 11.7 L Carboxyhemoglobin 1.1 O2 Delivery Device Nrp Liter Flow 15.00 Vent Setting Inspired O2 Critical Value Yes POC Glucose Hemoglobin A1c Urine Eosinophils 06/23/18 06/23/18 06:02 06:04 WBC RBC Hgb Hct MCV MCH MCHC RDW Plt Count MPV APTT Puncture Site Right radial Patient Temperature 98.6 O2 Saturation 92 ABG pH 7.25 L* ABG pCO2 43 H ABG pO2 84 ABG HCO3 18 L ABG O2 Content 16.9 ABG Base Excess -7.6 L ABG Methemoglobin 1.7 Carlos Test Present Hemoglobin 13.1 Carboxyhemoglobin 0.7 O2 Delivery Device Ventilator Liter Flow Vent Setting Prvc/ ac Inspired O2 100 Critical Value Yes POC Glucose 185 H Hemoglobin A1c Urine Eosinophils Microbiology 06/20/18 20:50 Aerobic Blood Culture - Preliminary Blood - Peripheral No growth in 3 days Anaerobic Blood Culture - Preliminary No growth in 3 days 06/21/18 02:10 Gram Stain - Final Sputum - Endotracheal Sputum Culture - Preliminary Staphylococcus aureus Review/Management - Diagnosis (1) Encephalopathy Code(s): G93.40 - Encephalopathy, unspecified Status: Acute Current Visit: Yes - Review/Management Plan: imp ct neg eeg will do look overall not bad neurowise at this time although sedated on asa ef 20% defer to cards if needs anticoag at all acidotic
[2018-06-23] MEDS: Hydrocortisone Sod Succinate 100 MG Vial IV.PUSH SCH ×3 (12:00→23:21)
--- NOTE | 2018-06-23 12:42 | MB ---
cc: Johnny Campa MD DATE: 06/23/2018 REASON FOR CONSULTATION: 72-year-old male in the intensive care unit with cardiac failure and thrombocytopenia. PATIENT PROFILE: The patient is intubated. The history is obtained at the bedside, mostly from his . He is , this is his second marriage. He has 3 children. He was born in [place] and lives in [place], [place]. He was vacationing in [place] with his family. He smokes a pack of cigarettes per day and has done this for many years. Alcohol consists of a few beers a week. In the past he drank heavily, this was more than 15 years ago and at that time he would consume at least a 6- pack a day. HISTORY OF PRESENT ILLNESS: The patient is a 72-year-old male who is vacationing in [place], [place]. His permanent residence is in [place], [place]. He has severe cardiac disease. Over the past week he noted progressive shortness of breath and leg weakness. He developed acute respiratory failure and ended up coming to [facility] where he required intubation. He is now in the ICU. He is hypotensive. He has had a longstanding history of a cardiomyopathy with an ejection fraction between 20% and 25%. I am now asked to see him because of thrombocytopenia. On 06/23/2018, he had a hemoglobin of 11.2, white count 4800, and platelets are 51,000. When he arrived on 06/20/2018, hemoglobin 12.5, white count 8500, and platelet count was 86,000. The following day 67,000, the following day 59,000, and today 51,000. His tells me that he has had thrombocytopenia for approximately 1 year. It has not been evaluated. His primary care physician has followed him and his platelet count has been stable. The etiology of the thrombocytopenia is unknown. There is no history of hypersplenism, an autoimmune disorder, or a primary hematologic problem. Of note, in reviewing his medications, he has taken cilostazol which can cause thrombocytopenia. His thrombocytopenia appears to have begun about a year ago and shortly before that he was started on the antiplatelet medicine cilostazol. It is not clear whether it is the cause of the thrombocytopenia, but there is a possible relationship. He has not had any bleeding. Since hospitalization he has not done well. He is now hypotensive with a blood pressure of 85/50. Also of importance is the fact that he has been taking prednisone 20 mg every other day for the past 6 weeks. Since hospitalization he has not received any steroids. PAST SURGICAL HISTORY: Pacemaker. PAST MEDICAL HISTORY: 1. BPH. 2. 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 3. Chronic obstructive pulmonary disease. 4. Chronic tobacco use with the patient currently smoking a pack of cigarettes per day. 5. Gastroesophageal reflux. 6. Glaucoma. 7. Hypertension. 8. Neuropathy involving the toes. 9. Peripheral vascular disease. MEDICATIONS PRIOR TO ADMISSION: 1. Prednisone 20 mg p.o. every other day. 2. Metformin 1000 mg p.o. b.i.d. 3. Januvia. 4. Simvastatin. 5. Gabapentin 900 mg 3 times a day. 6. Aleve once or twice a day. 7. Aspirin 81 mg a day. 8. Cilostazol. ALLERGIES: NO ALLERGIES TO MEDICINE. FAMILY HISTORY: Noncontributory. REVIEW OF SYSTEMS: Obtainable only through the . The major problem has been increased shortness of breath, chest pain, leg weakness, recent reluctance to see physicians. The other issue is inability to stop smoking. PHYSICAL EXAMINATION: GENERAL: Reveals a frail, intubated gentleman. He has significant muscular atrophy. VITAL SIGNS: His current blood pressure is 85/50, respiratory rate 18, afebrile, O2 saturation 100% intubated on 85%. HEENT: Head is normocephalic. Sclerae and conjunctivae normal. NECK: No adenopathy. HEART: Regular rhythm. Rate is 80. LUNGS: Clear. ABDOMEN: Soft. EXTREMITIES: Without edema. There is muscle wasting. SKIN: Intact. NEUROLOGIC: He is able to move all extremities. ADDITIONAL STUDIES: A chest x-ray 06/23/2018 shows improving bilateral perihilar pulmonary edema. Current hemoglobin 11.2, white count 4800, and platelets 51,000. The differential has been unremarkable. On 06/23/2018, PTT is 38, on 06/21/2018 it was 29 and on 06/21/2018 the PT was 12.1. Electrolytes, BUN, and creatinine, liver function tests notable for creatinine 1.37. Troponin is 6.11. ASSESSMENT: 1. The patient's thrombocytopenia is clearly not new. His was aware of him having platelet counts of around 60,000 for the past year. Therefore, the thrombocytopenia is not related to anything that took place in the hospital or any medications. I suspect that the fall in the platelet count is related to the hypotension and possibly some degree of DIC with a prolonged PTT. In looking for an etiology. There is a possibility it may be related to one of his previous medicines, specifically cilostazol, and I have recommended to the that he not resume this medicine. With a platelet count of 50,000, he certainly can continue aspirin. I will order a DIC screen, but the most important point is that the thrombocytopenia predates this hospitalization by approximately a year. I would not recommend a bone marrow under the present circumstances. Dic screen and repeat cbc plat ordered for tomorros. 2. The patient is hypotensive. He is steroid dependent. I have contacted Dr. Solis and he will be given steroid replacement. 3. The patient smokes a pack of cigarettes per day. He is dying of vascular disease. 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 MD MARIKA Cunha/kylie , 11:41 AM , 12:05 PM GABBI
[2018-06-23] MEDS: fentaNYL 10 mcg/mL Premix Drip 2,500 MCG/250 ML BAG IV.SIG PRN ×2 (21:02→22:03)
[2018-06-23 21:47] LABS: Calcium 8.5 mg/dL (8.5-10.1); Carbon Dioxide 21.8 meq/L (21.0-32.0); Magnesium 1.7 mg/dL (1.5-2.5); Phosphorus 2.9 mg/dL (2.5-4.9); Potassium 3.9 meq/L (3.5-5.1)
[2018-06-23 22:10] LABS: Troponin I 2.28 ng/mL (0.02-0.05)
[2018-06-23] MEDS ORDERED: Potassium Chloride 25 MEQ Effervescent Tablet PO ONE (22:16)
[2018-06-23 22:23] LABS: CKMB Percent 1.1 % (0.0-4.0); Creatine Kinase MB 3.6 ng/mL (0.5-3.6)
[2018-06-23] MEDS: Mag Sulf 1 gm/100 ml Premix 100 ML IV.SIG SCH (23:21)
[2018-06-24] MEDS: Mag Sulf 1 gm/100 ml Premix 100 ML IV.SIG SCH (00:36)
[2018-06-24] MEDS: Chlorhexidine Gluconate 2% 1 Pack (2 Cloths) TOPICAL SCH (03:11)
[2018-06-24] MEDS: Propofol 1000 mg/100 ml Inj 1,000 MG/100 ML BOTTLE IV.CONT PRN ×4 (03:33→18:10)
[2018-06-24] MEDS: Dexmedetomidine Inj 200 MCG in Sodium Chlor 0.9% Inj 48 ML IV.CONT PRN ×8 (04:15→18:30)
[2018-06-24] MEDS: Hydrocortisone Sod Succinate 100 MG Vial IV.PUSH SCH ×3 (05:44→18:28)
[2018-06-24] MEDS: Insulin NovoLOG Aspart Correctional Sugar Inj SQ SCH ×3 (06:02→18:28)
[2018-06-24] MEDS: fentaNYL 10 mcg/mL Premix Drip 2,500 MCG/250 ML BAG IV.SIG PRN ×2 (06:29→16:30)
[2018-06-24 06:38] LABS: Baso % (Auto) 0.1 % (0.0-2.0); Hematocrit 33.6 % (39.0-51.0); Hemoglobin 11.3 gm/dL (13.0-17.0); Lymph # (Auto) 0.4 th/mm3 (1.0-4.8); Lymph % (Auto) 7.9 % (9.0-44.0); Mean Corpuscular HGB Conc 33.5 % (32.0-36.0); Mean Corpuscular Hemoglobin 31.1 pg (27.0-34.0); Mean Corpuscular Volume 92.8 fL (80.0-100.0); Mean Platelet Volume 10.6 fL (7.0-11.0); Mono # (Auto) 0.3 th/mm3 (0.0-0.9); Mono % (Auto) 6.5 % (0.0-8.0); Neut # (Auto) 4.1 th/mm3 (1.8-7.7); Neut % (Auto) 85.5 % (16.0-70.0); Platelet Count 66 th/mm3 (150-450); Red Blood Count 3.62 mil/mm3 (4.50-5.90); Red Cell Distribution Width 16.9 % (11.6-17.2); White Blood Count 4.8 th/mm3 (4.0-11.0)
[2018-06-24 08:19] LABS: Platelet Morphology Normal (Normal)
--- NOTE | 2018-06-24 08:27 | ECG ---
Date Performed: 06/23/2018 Time Performed: 20:11:54 PTAGE: 72 years EKG: Sinus bradycardia Left bundle branch block Abnormal ECG PREVIOUS TRACING : 06/21/2018 18.35 DOCTOR: Etienne Daily Interpretating Date/Time 06/24/2018 08:25:33
--- NOTE | 2018-06-24 08:31 | P.PNNEU ---
Subjective Subjective Comments: on sedation on vent Active Medications: Active Medications Acetaminophen (Tylenol Liq) 650 mg NG/OG Q6H PRN PRN Reason: FEVER Last Admin: 06/22/18 17:26 Dose: 650 mg Albuterol (Duoneb Neb ([facility])) 1 ampul NEB Q4HR NEB [facility] Last Admin: 06/24/18 04:36 Dose: 1 ampul Artificial Tears (Genteal Severe Dry Eye Relief 0.3% Opth Gel) 1 drops EACH EYE BID [facility] Last Admin: 06/23/18 20:45 Dose: 1 drops Aspirin (Aspirin Chew) 162 mg PO DAILY [facility] Last Admin: 06/23/18 09:00 Dose: 162 mg Brimonidine Tartrate (Alphagan P 0.15% Opth Drops) 1 drops EACH EYE TID [facility] Last Admin: 06/23/18 17:39 Dose: 1 drops Chlorhexidine Gluconate (Chlorhexidine 2% Cloth) 3 pack TOPICAL DAILY@0400 [facility] Stop: 06/26/18 03:59 Last Admin: 06/24/18 03:11 Dose: 3 pack Chlorhexidine Gluconate (Chlorhexidine 2% Cloth) 3 pack TOPICAL DAILY@0400 PRN PRN Reason: Extra cloth needed Stop: 06/26/18 03:59 Dextrose (D50w Vial) 50 ml IV.PUSH UNSCH PRN PRN Reason: PER HYPOGLYCEMIA PROTOCOL Furosemide (Lasix Inj) 20 mg IV.PUSH BID@0900,1800 [facility] Last Admin: 06/23/18 17:39 Dose: 20 mg Glucagon (Glucagon Inj) 1 mg OTHER PRN PRN PRN Reason: for Hypoglycemia Protocol Hydrocortisone Sodium Succinate (Solucortef Inj) 50 mg IV.PUSH Q6HR [facility] Last Admin: 06/24/18 05:44 Dose: 50 mg Propofol (Diprivan 1000 Mg/100 Ml Inj) 1,000 mg in 100 mls @ 2.1 mls/hr IV.CONT TITRATE PRN; Protocol PRN Reason: Per Protocol Last Admin: 06/24/18 06:28 Dose: 15 mcg/kg/min, 6.3 mls/hr Fentanyl (Fentanyl 10 Mcg/Ml Premix Drip) 2,500 mcg in 250 mls @ 5 mls/hr IV.SIG TITRATE PRN; Protocol PRN Reason: Per Protocol Last Admin: 06/24/18 06:29 Dose: 250 mcg/hr, 25 mls/hr Magnesium Sulfate Inj 4 gm/ (Sodium Chloride) 100 mls @ 50 mls/hr IV.SIG UNSCH PRN PRN Reason: For Magnesium 0.9 - 1.1 mg/dL Magnesium Sulfate Inj 2 gm/ (Sodium Chloride) 100 mls @ 50 mls/hr IV.SIG UNSCH PRN PRN Reason: For Magnesium 1.2 - 1.6 mg/dL Potassium Chloride (Kcl 40 Meq Premix Inj) 40 meq in 100 mls @ 50 mls/hr IV.SIG Q2H PRN PRN Reason: For Potassium 2.8 - 3.2 mEq/L Potassium Chloride (Kcl 20 Meq Premix Inj) 20 meq in 100 mls @ 50 mls/hr IV.SIG Q2H PRN PRN Reason: For Potassium 3.3 - 3.5 mEq/L Potassium Chloride (Kcl 20 Meq Premix Inj) 20 meq in 100 mls @ 50 mls/hr IV.SIG Q2H PRN PRN Reason: For Potassium 2.8 - 3.2 mEq/L Potassium Phosphate 30 mmol/ (Sodium Chloride) 260 mls @ 42 mls/hr IV.SIG UNSCH PRN PRN Reason: SEE LABEL COMMENTS Sodium Phosphate 30 mmol/ (Sodium Chloride) 260 mls @ 42 mls/hr IV.SIG UNSCH PRN PRN Reason: For Phosphorus < 2.5 mg/dL Potassium Chloride (Kcl 40 Meq Premix Inj) 40 meq in 100 mls @ 25 mls/hr IV.SIG UNSCH PRN PRN Reason: For Potassium 3.3 - 3.5 mEq/L Cefepime HCl 2,000 mg/ Sodium (Chloride) 100 mls @ 200 mls/hr IV.SIG Q12H [facility] Last Infusion: 06/23/18 22:05 Dose: Infused Linezolid (Zyvox 600 Mg Premix) 300 mls @ 300 mls/hr IV.SIG Q12H [facility] Last Infusion: 06/24/18 00:21 Dose: Infused Dexmedetomidine HCl 200 mcg/ (Sodium Chloride) 50 mls @ 3.6 mls/hr IV.CONT TITRATE PRN; Protocol PRN Reason: Per Protocol Last Admin: 06/24/18 05:54 Dose: 1.5 mcg/kg/hr, 27 mls/hr Insulin Aspart (Novolog Insulin Correctional Sugar Inj) 0 unit SQ Q6HR [facility]; Protocol Last Admin: 06/24/18 06:02 Dose: 15 unit Lansoprazole (Prevacid Solutab) 30 mg NG/OG DAILY [facility] Last Admin: 06/23/18 09:01 Dose: 30 mg Magnesium Oxide (Mag-Ox) 800 mg PO UNSCH PRN PRN Reason: For Magnesium 1.2 - 1.6 mg/dL Magnesium Oxide (Mag-Ox) 400 mg PO BID [facility] Stop: 06/24/18 21:01 Metoprolol Tartrate (Lopressor) 12.5 mg PO BID [facility] Last Admin: 06/23/18 20:44 Dose: 12.5 mg Miscellaneous (Pill Splitter) 1 each OTHER UNSCH PRN PRN Reason: SEE LABEL COMMENTS Potassium Bicarb/Potassium Chloride (K-Lyte Cl Eff) 50 meq PO UNSCH PRN PRN Reason: For Potassium 3.3 - 3.5 mEq/L Potassium Phosphate (K-Phos Original) 2,000 mg PO Q4H PRN PRN Reason: Phosphorus Less Than 2.5 mg/dL Potassium Phosphate (K-Phos Original) 2,000 mg PO UNSCH PRN PRN Reason: SEE LABEL COMMENTS Pravastatin Sodium (Pravachol) 40 mg PO DAILY@1800 [facility] Last Admin: 06/23/18 17:39 Dose: 40 mg Sodium Chloride (Ns Flush) 2 ml IV.FLUSH PRN PRN PRN Reason: FLUSH AFTER USING IV ACCESS Allergies/Adverse Reactions: Allergies Allergy/AdvReac Type Severity Reaction Status Date / Time bee venom protein (honey bee) Allergy Difficulty Verified 06/20/18 22:04 [Bee sting] Breathing hydromorphone Allergy Nausea/Vomi Verified 06/20/18 22:04 ting pregabalin [From Lyrica] Allergy Anaphylaxis Verified 06/20/18 22:04 Physical Exam Vital signs: Vital Signs 06/23/18 09:36 06/23/18 10:00 06/23/18 10:30 Temperature Pulse Rate 69 Respiratory Rate 16 Blood Pressure 93/52 L Pulse Oximetry 100 06/23/18 10:45 06/23/18 11:00 06/23/18 11:15 Temperature Pulse Rate 68 70 70 Respiratory Rate 16 16 16 Blood Pressure 83/51 L 101/54 L 95/50 L Pulse Oximetry 100 100 100 06/23/18 11:30 06/23/18 11:45 06/23/18 12:00 Temperature Pulse Rate 67 66 67 Respiratory Rate 16 16 16 Blood Pressure 94/53 L 94/53 L 96/56 L Pulse Oximetry 100 100 100 06/23/18 12:15 06/23/18 12:26 06/23/18 12:30 Temperature Pulse Rate 66 66 65 Respiratory Rate 16 16 16 Blood Pressure 101/57 L 103/58 L Pulse Oximetry 100 100 100 06/23/18 12:45 06/23/18 13:00 06/23/18 13:01 Temperature Pulse Rate 69 69 69 Respiratory Rate 16 16 16 Blood Pressure 96/53 L 111/54 L Pulse Oximetry 100 100 100 06/23/18 13:15 06/23/18 13:30 06/23/18 13:45 Temperature Pulse Rate 67 67 68 Respiratory Rate 16 16 16 Blood Pressure 107/55 L 121/56 L 110/55 L Pulse Oximetry 100 99 99 06/23/18 14:00 06/23/18 14:15 06/23/18 14:30 Temperature Pulse Rate 68 67 67 Respiratory Rate 16 16 16 Blood Pressure 109/62 111/60 119/59 L Pulse Oximetry 99 98 98 06/23/18 14:45 06/23/18 15:00 06/23/18 15:15 Temperature Pulse Rate 66 66 66 Respiratory Rate 16 16 16 Blood Pressure 118/64 117/63 118/65 Pulse Oximetry 98 99 99 06/23/18 15:30 06/23/18 15:45 06/23/18 15:55 Temperature Pulse Rate 64 63 Respiratory Rate 16 16 16 Blood Pressure 121/63 120/65 Pulse Oximetry 99 100 100 06/23/18 15:57 06/23/18 16:00 06/23/18 16:15 Temperature Pulse Rate 63 66 63 Respiratory Rate 16 16 16 Blood Pressure 123/64 124/63 Pulse Oximetry 99 99 06/23/18 16:30 06/23/18 18:00 06/23/18 18:30 Temperature Pulse Rate 63 58 L 55 L Respiratory Rate 16 16 Blood Pressure 132/59 L 127/57 L Pulse Oximetry 99 100 06/23/18 18:45 06/23/18 19:00 06/23/18 19:15 Temperature Pulse Rate 55 L 59 L 57 L Respiratory Rate 16 16 16 Blood Pressure 130/59 L 127/61 124/58 L Pulse Oximetry 100 100 100 06/23/18 19:30 06/23/18 19:45 06/23/18 20:00 Temperature Pulse Rate 57 L 58 L 58 L Respiratory Rate 16 16 16 Blood Pressure 123/55 L 123/58 L 124/55 L Pulse Oximetry 100 100 100 06/23/18 20:15 06/23/18 20:45 06/23/18 21:00 Temperature Pulse Rate 59 L 56 L 57 L Respiratory Rate 16 16 16 Blood Pressure 121/58 L 133/63 127/61 Pulse Oximetry 100 100 100 06/23/18 21:05 06/23/18 21:15 06/23/18 21:30 Temperature Pulse Rate 56 L 62 58 L Respiratory Rate 16 16 16 Blood Pressure 131/63 130/60 Pulse Oximetry 100 100 99 06/23/18 21:45 06/23/18 22:00 06/23/18 22:15 Temperature Pulse Rate 62 55 L 58 L Respiratory Rate 16 16 16 Blood Pressure 127/63 137/60 126/61 Pulse Oximetry 99 98 99 06/23/18 22:30 06/23/18 22:45 06/23/18 23:00 Temperature Pulse Rate 56 L 58 L 55 L Respiratory Rate 16 16 16 Blood Pressure 127/62 130/60 130/57 L Pulse Oximetry 99 99 99 06/23/18 23:15 06/23/18 23:30 06/23/18 23:45 Temperature Pulse Rate 55 L 54 L 55 L Respiratory Rate 16 16 16 Blood Pressure 130/60 135/63 131/60 Pulse Oximetry 99 99 100 06/24/18 00:00 06/24/18 00:15 06/24/18 00:30 Temperature 100.1 F H Pulse Rate 59 L 71 56 L Respiratory Rate 16 31 H 16 Blood Pressure 134/62 120/56 L 122/60 Pulse Oximetry 99 94 L 97 06/24/18 00:45 06/24/18 00:52 06/24/18 01:00 Temperature Pulse Rate 57 L 59 L 57 L Respiratory Rate 16 16 16 Blood Pressure 122/58 L 124/63 Pulse Oximetry 98 97 98 06/24/18 01:15 06/24/18 01:30 06/24/18 01:45 Temperature Pulse Rate 59 L 59 L 59 L Respiratory Rate 16 16 16 Blood Pressure 126/67 122/58 L 121/59 L Pulse Oximetry 98 98 99 06/24/18 02:00 06/24/18 02:15 06/24/18 02:30 Temperature Pulse Rate 58 L 57 L 65 Respiratory Rate 16 16 19 Blood Pressure 129/60 128/62 106/60 Pulse Oximetry 99 99 98 06/24/18 03:00 06/24/18 03:01 06/24/18 03:30 Temperature Pulse Rate 63 59 L 57 L Respiratory Rate 16 16 16 Blood Pressure 142/69 H 140/61 Pulse Oximetry 97 97 98 06/24/18 04:00 06/24/18 04:30 06/24/18 04:39 Temperature 98.7 F Pulse Rate 55 L 54 L 57 L Respiratory Rate 16 16 16 Blood Pressure 141/63 H 136/62 Pulse Oximetry 98 98 98 06/24/18 06:00 Temperature Pulse Rate 62 Respiratory Rate Blood Pressure Pulse Oximetry Intake & Output 06/23/18 06/24/18 06/24/18 18:59 06:59 18:59 Intake Total 799 / 799 1264 / 1264 Output Total 550 / 550 1300 / 1300 Balance 249 / 249 -36 / -36 Weight 74 kg Intake: IV 679 / 679 1144 / 1144 Precedex Inj 200 MCG In NS Inj 200 / 200 150 / 150 48 ML @ 0.2 MCG/KG/HR 3.6 mls/ hr IV.CONT TITRATE PRN Rx#: [id number] Heparin/D5W 25,000 U/250 mL 25, 79 / 79 000 unit In 250 ml @ 800 UNITS/ HR 8 mls/hr IV.CONT TITRATE PRN Rx#:[id number] Diprivan 1000 mg/100 ml Inj 1, 100 / 100 000 mg In 100 ml @ 5 MCG/KG/MIN 2.1 mls/hr IV.CONT TITRATE PRN Rx#:[id number] Maxipime Inj 2,000 MG In NS Inj 100 / 100 100 / 100 100 ML @ 200 mls/hr IV.SIG Q12H [facility] Rx#:[id number] Zyvox 600 mg Premix 300 ML @ 300 / 300 300 / 300 300 mls/hr IV.SIG Q12H [facility] Rx#: [id number] Magnesium Sulfate 1 gm/D5W 100 100 / 100 ml Premix 100 ML @ 100 mls/hr IV.SIG Q1H [facility] Rx#:[id number] fentaNYL 10 mcg/mL Premix Drip 394 / 394 2,500 mcg In 250 ml @ 50 MCG/HR 5 mls/hr IV.SIG TITRATE PRN Rx #:[id number] Water Bolus Amount 120 / 120 120 / 120 Output: Urine Amount (Catheter) 550 / 550 1300 / 1300 Indwelling Urethral Catheter 550 / 550 1300 / 1300 Other: # Bowel Movements 0 0 Narrative: arouses to voice very restless in bed - Urinary Catheter Management Indwelling Urethral Catheter Cath placed during this visit: yes Reason for continuing: Hourly intake/output Insertion date: 06/20/18 Insertion time: 21:24 Objective Laboratory Results - last 24 hr 06/23/18 06/23/18 06/23/18 11:50 18:14 20:50 WBC RBC Hgb Hct MCV MCH MCHC RDW Plt Count MPV Prelim Diff (Auto) Neut % (Auto) Lymph % (Auto) [place] % (Auto) Eos % (Auto) Baso % (Auto) Neut # (Auto) Lymph # (Auto) [place] # (Auto) Eos # (Auto) Baso # (Auto) WBC Differential Diff Scan Differential Comment Platelet Estimate Platelet Morphology APTT 27.1 D Sodium 140 Potassium 3.9 Chloride 108 H Carbon Dioxide 21.8 Anion Gap 10 BUN 24 H Creatinine 1.29 Estimated GFR 55 L POC Glucose 266 H Random Glucose 272 H D Calcium 8.5 Phosphorus 2.9 Magnesium 1.7 Total Creatine Kinase CK-MB (CK-2) CK-MB (CK-2) % Troponin I 06/23/18 06/23/18 06/24/18 20:50 23:26 05:48 WBC RBC Hgb Hct MCV MCH MCHC RDW Plt Count MPV Prelim Diff (Auto) Neut % (Auto) Lymph % (Auto) [place] % (Auto) Eos % (Auto) Baso % (Auto) Neut # (Auto) Lymph # (Auto) [place] # (Auto) Eos # (Auto) Baso # (Auto) WBC Differential Diff Scan Differential Comment Platelet Estimate Platelet Morphology APTT Sodium Potassium Chloride Carbon Dioxide Anion Gap BUN Creatinine Estimated GFR POC Glucose 281 H 285 H Random Glucose Calcium Phosphorus Magnesium Total Creatine Kinase 329 H CK-MB (CK-2) 3.6 CK-MB (CK-2) % 1.1 Troponin I 2.28 H* 06/24/18 06:06 WBC 4.8 RBC 3.62 L Hgb 11.3 L Hct 33.6 L MCV 92.8 MCH 31.1 MCHC 33.5 RDW 16.9 Plt Count 66 L MPV 10.6 Prelim Diff (Auto) Slide review pending Neut % (Auto) 85.5 H Lymph % (Auto) 7.9 L [place] % (Auto) 6.5 Eos % (Auto) 0.0 Baso % (Auto) 0.1 Neut # (Auto) 4.1 Lymph # (Auto) 0.4 L [place] # (Auto) 0.3 Eos # (Auto) 0.0 Baso # (Auto) 0.0 WBC Differential . Diff Scan Auto diff confirmed Differential Comment . Platelet Estimate Low L Platelet Morphology Normal APTT Sodium Potassium Chloride Carbon Dioxide Anion Gap BUN Creatinine Estimated GFR POC Glucose Random Glucose Calcium Phosphorus Magnesium Total Creatine Kinase CK-MB (CK-2) CK-MB (CK-2) % Troponin I Microbiology 06/20/18 20:50 Aerobic Blood Culture - Preliminary Blood - Peripheral No growth in 3 days Anaerobic Blood Culture - Preliminary No growth in 3 days 06/21/18 02:10 Gram Stain - Final Sputum - Endotracheal Sputum Culture - Preliminary Staphylococcus aureus Review/Management - Diagnosis (1) Encephalopathy Code(s): G93.40 - Encephalopathy, unspecified Status: Acute Current Visit: Yes - Review/Management Plan: imp ct neg eeg will do look overall not bad neurowise at this time although sedated on asa ef 20% defer to cards if needs anticoag at all acidotic eeg 5 hz bilat ow neg check b12 neuro purdy may do well when off sedation acidosis up and down dr fields will fu
[2018-06-24] MEDS: Brimonidine 0.15% Opth Drops 5 ML Bottle EACH EYE SCH ×3 (08:37→18:28)
[2018-06-24] MEDS: Hypromellose 0.3% Opth Gel 10 GM Bottle EACH EYE SCH ×2 (08:37→20:11)
[2018-06-24] MEDS: Magnesium Oxide 400 MG Tablet PO SCH ×2 (08:37→20:12)
[2018-06-24] MEDS: Metoprolol Tartrate 25 MG Tablet PO SCH ×2 (08:40→20:12)
--- NOTE | 2018-06-24 10:44 | P.PNCC ---
Subjective Subjective Remarks/Hospital Course: Elderly male with a medical history significant for viral cardiomyopathy who was traveling on vacation from [place] with his family in [place] and today developed chest pain with worsening shortness of breath for which EMS was called by family. Patient was extremely short of breath on the arrival and hypoxic and they proceeded with endotracheal intubation and patient was transferred to the ER. In the ER it was noted that his cuff was leaking hence ET tube was exchanged by ER physician and patient was placed on mechanical ventilation. 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 He reportedly does not take any diuretic. Chest x-ray done in the ER revealed pulmonary edema. EKG revealed atrial fibrillation. Patient was accepted for admission by critical care medicine service. When I evaluated him in the ER he was sedated with propofol, orally intubated on mechanical ventilation. History was obtained by reviewing records, discussion with family as well as ER physician. Subjective 06/21: Afebrile. Hemodynamically stable. Troponin bumped 14. Started on heparin drip. Sedated with propofol and fentanyl drips. Arousable the ventilator and is very agitated will attempt to withdrawal tube. PEEP down to 5. 06/22: Sedated, orally intubated on mechanical ventilation. Gets agitated unenlightening sedation so Precedex added in addition to propofol and fentanyl. CPAP trials ongoing to decide extubation. Cardiac cath postponed by Dr. Noonan in view of questionable neurologic status. 06/23: Patient was extubated yesterday however was requiring significant amount of O2 post extubation with a facemask as well as nasal cannula. This morning around 4 AM due to increased work of breathing and hypoxia he was reintubated by Dr. Kimble and placed back on mechanical ventilation. Currently he is sedated , orally intubated on mechanical ventilation. Postintubation chest x-ray shows ET tube in appropriate position and pulmonary edema pattern with perihilar infiltrates bilaterally. 06/24: Remains sedated, orally intubated on mechanical ventilation. Objective Vital Signs / I&O: Vital Signs 06/23/18 10:45 06/23/18 11:00 06/23/18 11:15 Temperature Pulse Rate 68 70 70 Respiratory Rate 16 16 16 Blood Pressure 83/51 L 101/54 L 95/50 L Pulse Oximetry 100 100 100 06/23/18 11:30 06/23/18 11:45 06/23/18 12:00 Temperature Pulse Rate 67 66 67 Respiratory Rate 16 16 16 Blood Pressure 94/53 L 94/53 L 96/56 L Pulse Oximetry 100 100 100 06/23/18 12:15 06/23/18 12:26 06/23/18 12:30 Temperature Pulse Rate 66 66 65 Respiratory Rate 16 16 16 Blood Pressure 101/57 L 103/58 L Pulse Oximetry 100 100 100 06/23/18 12:45 06/23/18 13:00 06/23/18 13:01 Temperature Pulse Rate 69 69 69 Respiratory Rate 16 16 16 Blood Pressure 96/53 L 111/54 L Pulse Oximetry 100 100 100 06/23/18 13:15 06/23/18 13:30 06/23/18 13:45 Temperature Pulse Rate 67 67 68 Respiratory Rate 16 16 16 Blood Pressure 107/55 L 121/56 L 110/55 L Pulse Oximetry 100 99 99 06/23/18 14:00 06/23/18 14:15 06/23/18 14:30 Temperature Pulse Rate 68 67 67 Respiratory Rate 16 16 16 Blood Pressure 109/62 111/60 119/59 L Pulse Oximetry 99 98 98 06/23/18 14:45 06/23/18 15:00 06/23/18 15:15 Temperature Pulse Rate 66 66 66 Respiratory Rate 16 16 16 Blood Pressure 118/64 117/63 118/65 Pulse Oximetry 98 99 99 06/23/18 15:30 06/23/18 15:45 06/23/18 15:55 Temperature Pulse Rate 64 63 Respiratory Rate 16 16 16 Blood Pressure 121/63 120/65 Pulse Oximetry 99 100 100 06/23/18 15:57 06/23/18 16:00 06/23/18 16:15 Temperature Pulse Rate 63 66 63 Respiratory Rate 16 16 16 Blood Pressure 123/64 124/63 Pulse Oximetry 99 99 06/23/18 16:30 06/23/18 18:00 06/23/18 18:30 Temperature Pulse Rate 63 58 L 55 L Respiratory Rate 16 16 Blood Pressure 132/59 L 127/57 L Pulse Oximetry 99 100 06/23/18 18:45 06/23/18 19:00 06/23/18 19:15 Temperature Pulse Rate 55 L 59 L 57 L Respiratory Rate 16 16 16 Blood Pressure 130/59 L 127/61 124/58 L Pulse Oximetry 100 100 100 06/23/18 19:30 06/23/18 19:45 06/23/18 20:00 Temperature Pulse Rate 57 L 58 L 58 L Respiratory Rate 16 16 16 Blood Pressure 123/55 L 123/58 L 124/55 L Pulse Oximetry 100 100 100 06/23/18 20:15 06/23/18 20:45 06/23/18 21:00 Temperature Pulse Rate 59 L 56 L 57 L Respiratory Rate 16 16 16 Blood Pressure 121/58 L 133/63 127/61 Pulse Oximetry 100 100 100 06/23/18 21:05 06/23/18 21:15 06/23/18 21:30 Temperature Pulse Rate 56 L 62 58 L Respiratory Rate 16 16 16 Blood Pressure 131/63 130/60 Pulse Oximetry 100 100 99 06/23/18 21:45 06/23/18 22:00 06/23/18 22:15 Temperature Pulse Rate 62 55 L 58 L Respiratory Rate 16 16 16 Blood Pressure 127/63 137/60 126/61 Pulse Oximetry 99 98 99 06/23/18 22:30 06/23/18 22:45 06/23/18 23:00 Temperature Pulse Rate 56 L 58 L 55 L Respiratory Rate 16 16 16 Blood Pressure 127/62 130/60 130/57 L Pulse Oximetry 99 99 99 06/23/18 23:15 06/23/18 23:30 06/23/18 23:45 Temperature Pulse Rate 55 L 54 L 55 L Respiratory Rate 16 16 16 Blood Pressure 130/60 135/63 131/60 Pulse Oximetry 99 99 100 06/24/18 00:00 06/24/18 00:15 06/24/18 00:30 Temperature 100.1 F H Pulse Rate 59 L 71 56 L Respiratory Rate 16 31 H 16 Blood Pressure 134/62 120/56 L 122/60 Pulse Oximetry 99 94 L 97 06/24/18 00:45 06/24/18 00:52 06/24/18 01:00 Temperature Pulse Rate 57 L 59 L 57 L Respiratory Rate 16 16 16 Blood Pressure 122/58 L 124/63 Pulse Oximetry 98 97 98 06/24/18 01:15 06/24/18 01:30 06/24/18 01:45 Temperature Pulse Rate 59 L 59 L 59 L Respiratory Rate 16 16 16 Blood Pressure 126/67 122/58 L 121/59 L Pulse Oximetry 98 98 99 06/24/18 02:00 06/24/18 02:15 06/24/18 02:30 Temperature Pulse Rate 58 L 57 L 65 Respiratory Rate 16 16 19 Blood Pressure 129/60 128/62 106/60 Pulse Oximetry 99 99 98 06/24/18 03:00 06/24/18 03:01 06/24/18 03:30 Temperature Pulse Rate 63 59 L 57 L Respiratory Rate 16 16 16 Blood Pressure 142/69 H 140/61 Pulse Oximetry 97 97 98 06/24/18 04:00 06/24/18 04:30 06/24/18 04:39 Temperature 98.7 F Pulse Rate 55 L 54 L 57 L Respiratory Rate 16 16 16 Blood Pressure 141/63 H 136/62 Pulse Oximetry 98 98 98 06/24/18 05:00 06/24/18 05:30 06/24/18 06:00 Temperature Pulse Rate 61 62 62 Respiratory Rate 8 L 8 L 16 Blood Pressure 142/65 H 148/66 H 143/65 H Pulse Oximetry 96 96 98 06/24/18 06:30 06/24/18 07:00 06/24/18 07:04 Temperature Pulse Rate 54 L 73 63 Respiratory Rate 16 19 16 Blood Pressure 146/65 H 128/61 Pulse Oximetry 99 90 L 98 06/24/18 07:30 06/24/18 08:00 06/24/18 08:31 Temperature Pulse Rate 57 L 58 L 58 L Respiratory Rate 16 16 16 Blood Pressure 131/60 131/61 117/59 L Pulse Oximetry 100 99 98 06/24/18 09:00 06/24/18 09:02 06/24/18 09:30 Temperature Pulse Rate 56 L 56 L 59 L Respiratory Rate 16 16 16 Blood Pressure 127/60 124/60 Pulse Oximetry 99 97 Intake & Output 06/23/18 06/24/18 06/24/18 18:59 06:59 18:59 Intake Total 799 / 799 1264 / 1264 50 / 50 Output Total 550 / 550 1300 / 1300 Balance 249 / 249 -36 / -36 50 / 50 Weight 74 kg Intake: IV 679 / 679 1144 / 1144 50 / 50 Precedex Inj 200 MCG In NS Inj 200 / 200 150 / 150 50 / 50 48 ML @ 0.2 MCG/KG/HR 3.6 mls/ hr IV.CONT TITRATE PRN Rx#: [id number] Heparin/D5W 25,000 U/250 mL 25, 79 / 79 000 unit In 250 ml @ 800 UNITS/ HR 8 mls/hr IV.CONT TITRATE PRN Rx#:[id number] Diprivan 1000 mg/100 ml Inj 1, 100 / 100 000 mg In 100 ml @ 5 MCG/KG/MIN 2.1 mls/hr IV.CONT TITRATE PRN Rx#:[id number] Maxipime Inj 2,000 MG In NS Inj 100 / 100 100 / 100 100 ML @ 200 mls/hr IV.SIG Q12H MONICA Rx#:[id number] Zyvox 600 mg Premix 300 ML @ 300 / 300 300 / 300 300 mls/hr IV.SIG Q12H MONICA Rx#: [id number] Magnesium Sulfate 1 gm/D5W 100 100 / 100 ml Premix 100 ML @ 100 mls/hr IV.SIG Q1H MONICA Rx#:[id number] fentaNYL 10 mcg/mL Premix Drip 394 / 394 2,500 mcg In 250 ml @ 50 MCG/HR 5 mls/hr IV.SIG TITRATE PRN Rx #:[id number] Water Bolus Amount 120 / 120 120 / 120 Output: Urine Amount (Catheter) 550 / 550 1300 / 1300 Indwelling Urethral Catheter 550 / 550 1300 / 1300 Other: # Bowel Movements 0 0 Result Diagrams: 06/24/18 06:06 06/23/18 20:50 Objective Remarks: GENERAL: 72 yoM orotracheally intubated SKIN: Warm and dry. Chronic venous stasis bilateral lower extremities HEAD: Atraumatic. Normocephalic. EYES: Pupils equal and round. No scleral icterus. No injection or drainage. ENT: No nasal bleeding or discharge. Mucous membranes pink and moist. NECK: Trachea midline. No JVD. CARDIOVASCULAR: Regular rate and rhythm. S1, S2 predose for without murmur RESPIRATORY: Essentially clear anteriorly. No wheezing GASTROINTESTINAL: Abdomen soft, non-tender, slightly protuberant. Hypoactive bowel sounds appreciated MUSCULOSKELETAL: Extremities with trace bilateral lower extremity edema. No obvious deformities. NEUROLOGICAL: Sedated, arousable but not following commands. Moves all 4 extremities spontaneously. 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 Acetaminophen 650 every 6 hours as needed fever. Follow neuro status. Holding gabapentin 300 mg 3 times daily and baclofen 10 mg 3 times daily/home medications. Continue brimonidine 0.15% 3 times daily Cardiovascular: Non-ST elevation OK. cardiology consult requested in view of decompensated CHF, history of cardiomyopathy and positive troponin. Obtain medical records from patient's local sales associate in [place] in a.m. currently A. fib appears to be rate controlled. Continue aspirin 162 mg daily. 81 mg at home started on low-dose beta-ana metoprolol tartrate 12.5 mg twice daily. No ENA inhibitor secondary to acute kidney injury.. Currently on heparin drip due to elevated troponin. Holding cilostazol 50 mg twice daily. Resume simvastatin 20 mg daily/40 mg pravastatin substituted. Cardiac cath postponed per Dr. Noonan till improvement in neurologic status. Resume Lasix for diuresis ordered 20 mg IV twice daily Pulmonary: Continue mechanical ventilation, vent bundle, bronchodilators as needed. Peep +5. Diuresis held due to acute kidney injury. Albuterol/ ipratropium every 4 hours with albuterol aerosols every 2 hours as needed dyspnea. CPAP trials to decide extubation GI/liver: Hold tube feeds for possible extubation following CPAP trial today. Renal/: Strict intake output, monitor and replete electrolytes, follow BUN/ creatinine. Diuresis with Lasix ID: Watch for fever/leukocytosis. Cefepime 2 g IV every 12 hours. Influenza a and B-. Blood cultures, urine negative. Sputum cultures growing staph aureus. Will add Zyvox 600 mg IV every 12 hourly on 06/23. Heme: Holding heparin GTT. Thrombocytopenia noted. Dr. Campa following. Awaiting HIT screen Endocrine: Holding metformin thousand milligrams twice daily, sitagliptin 100 mg daily sliding scale insulin with aspart insulin high protocol for glycemic control. Started stress dose steroids with hydrocortisone 50 mill grams IV every 6 hourly on 06/23 due to borderline blood pressures and recent prednisone use. Prophylaxis: PPI/SCDs. Holding heparin due to thrombocytopenia. Follow-up hit screen Condition critical Time spent on critical care excluding procedures 35 minutes.
--- NOTE | 2018-06-24 10:50 | MG ---
cc: Lauri Isidro MD EEG NUMBER: [id number]. INDICATIONS: Status post code. FINDINGS: Diffuse 4 Hz slowing is noted. Recording overall is synchronous and symmetric. At times, diffuse 5 Hz slowing is noted. The patient is, however, on sedation. No hemisphere asymmetries are noted. No epileptiform or seizure activity is seen. Photic stimulation is performed without significant posterior driving. IMPRESSION: Diffuse slowing consistent with a moderate diffuse encephalopathy. How much of this is medication effect is unclear. Lauri Isidro MD DJM/rm , 07:56 AM , 08:00 AM
--- NOTE | 2018-06-24 13:10 | P.PNCA ---
Subjective Interval history: intubated, sedated Physical Exam Vital signs: Vital Signs 06/23/18 13:15 06/23/18 13:30 06/23/18 13:45 Temperature Pulse Rate 67 67 68 Respiratory Rate 16 16 16 Blood Pressure 107/55 L 121/56 L 110/55 L Pulse Oximetry 100 99 99 06/23/18 14:00 06/23/18 14:15 06/23/18 14:30 Temperature Pulse Rate 68 67 67 Respiratory Rate 16 16 16 Blood Pressure 109/62 111/60 119/59 L Pulse Oximetry 99 98 98 06/23/18 14:45 06/23/18 15:00 06/23/18 15:15 Temperature Pulse Rate 66 66 66 Respiratory Rate 16 16 16 Blood Pressure 118/64 117/63 118/65 Pulse Oximetry 98 99 99 06/23/18 15:30 06/23/18 15:45 06/23/18 15:55 Temperature Pulse Rate 64 63 Respiratory Rate 16 16 16 Blood Pressure 121/63 120/65 Pulse Oximetry 99 100 100 06/23/18 15:57 06/23/18 16:00 06/23/18 16:15 Temperature Pulse Rate 63 66 63 Respiratory Rate 16 16 16 Blood Pressure 123/64 124/63 Pulse Oximetry 99 99 06/23/18 16:30 06/23/18 18:00 06/23/18 18:30 Temperature Pulse Rate 63 58 L 55 L Respiratory Rate 16 16 Blood Pressure 132/59 L 127/57 L Pulse Oximetry 99 100 06/23/18 18:45 06/23/18 19:00 06/23/18 19:15 Temperature Pulse Rate 55 L 59 L 57 L Respiratory Rate 16 16 16 Blood Pressure 130/59 L 127/61 124/58 L Pulse Oximetry 100 100 100 06/23/18 19:30 06/23/18 19:45 06/23/18 20:00 Temperature Pulse Rate 57 L 58 L 58 L Respiratory Rate 16 16 16 Blood Pressure 123/55 L 123/58 L 124/55 L Pulse Oximetry 100 100 100 06/23/18 20:15 06/23/18 20:45 06/23/18 21:00 Temperature Pulse Rate 59 L 56 L 57 L Respiratory Rate 16 16 16 Blood Pressure 121/58 L 133/63 127/61 Pulse Oximetry 100 100 100 06/23/18 21:05 06/23/18 21:15 06/23/18 21:30 Temperature Pulse Rate 56 L 62 58 L Respiratory Rate 16 16 16 Blood Pressure 131/63 130/60 Pulse Oximetry 100 100 99 06/23/18 21:45 06/23/18 22:00 06/23/18 22:15 Temperature Pulse Rate 62 55 L 58 L Respiratory Rate 16 16 16 Blood Pressure 127/63 137/60 126/61 Pulse Oximetry 99 98 99 06/23/18 22:30 06/23/18 22:45 06/23/18 23:00 Temperature Pulse Rate 56 L 58 L 55 L Respiratory Rate 16 16 16 Blood Pressure 127/62 130/60 130/57 L Pulse Oximetry 99 99 99 06/23/18 23:15 06/23/18 23:30 06/23/18 23:45 Temperature Pulse Rate 55 L 54 L 55 L Respiratory Rate 16 16 16 Blood Pressure 130/60 135/63 131/60 Pulse Oximetry 99 99 100 06/24/18 00:00 06/24/18 00:15 06/24/18 00:30 Temperature 100.1 F H Pulse Rate 59 L 71 56 L Respiratory Rate 16 31 H 16 Blood Pressure 134/62 120/56 L 122/60 Pulse Oximetry 99 94 L 97 06/24/18 00:45 06/24/18 00:52 06/24/18 01:00 Temperature Pulse Rate 57 L 59 L 57 L Respiratory Rate 16 16 16 Blood Pressure 122/58 L 124/63 Pulse Oximetry 98 97 98 06/24/18 01:15 06/24/18 01:30 06/24/18 01:45 Temperature Pulse Rate 59 L 59 L 59 L Respiratory Rate 16 16 16 Blood Pressure 126/67 122/58 L 121/59 L Pulse Oximetry 98 98 99 06/24/18 02:00 06/24/18 02:15 06/24/18 02:30 Temperature Pulse Rate 58 L 57 L 65 Respiratory Rate 16 16 19 Blood Pressure 129/60 128/62 106/60 Pulse Oximetry 99 99 98 06/24/18 03:00 06/24/18 03:01 06/24/18 03:30 Temperature Pulse Rate 63 59 L 57 L Respiratory Rate 16 16 16 Blood Pressure 142/69 H 140/61 Pulse Oximetry 97 97 98 06/24/18 04:00 06/24/18 04:30 06/24/18 04:39 Temperature 98.7 F Pulse Rate 55 L 54 L 57 L Respiratory Rate 16 16 16 Blood Pressure 141/63 H 136/62 Pulse Oximetry 98 98 98 06/24/18 05:00 06/24/18 05:30 06/24/18 06:00 Temperature Pulse Rate 61 62 62 Respiratory Rate 8 L 8 L 16 Blood Pressure 142/65 H 148/66 H 143/65 H Pulse Oximetry 96 96 98 06/24/18 06:30 06/24/18 07:00 06/24/18 07:04 Temperature Pulse Rate 54 L 73 63 Respiratory Rate 16 19 16 Blood Pressure 146/65 H 128/61 Pulse Oximetry 99 90 L 98 06/24/18 07:30 06/24/18 08:00 06/24/18 08:31 Temperature Pulse Rate 57 L 58 L 58 L Respiratory Rate 16 16 16 Blood Pressure 131/60 131/61 117/59 L Pulse Oximetry 100 99 98 06/24/18 09:00 06/24/18 09:02 06/24/18 09:30 Temperature Pulse Rate 56 L 56 L 59 L Respiratory Rate 16 16 16 Blood Pressure 127/60 124/60 Pulse Oximetry 99 97 06/24/18 12:06 06/24/18 12:09 Temperature Pulse Rate 57 L Respiratory Rate 15 16 Blood Pressure Pulse Oximetry 96 Intake & Output 06/23/18 06/24/18 06/24/18 18:59 06:59 18:59 Intake Total 799 / 799 1264 / 1264 50 / 50 Output Total 550 / 550 1300 / 1300 Balance 249 / 249 -36 / -36 50 / 50 Weight 74 kg Intake: IV 679 / 679 1144 / 1144 50 / 50 Precedex Inj 200 MCG In NS Inj 200 / 200 150 / 150 50 / 50 48 ML @ 0.2 MCG/KG/HR 3.6 mls/ hr IV.CONT TITRATE PRN Rx#: [id number] Heparin/D5W 25,000 U/250 mL 25, 79 / 79 000 unit In 250 ml @ 800 UNITS/ HR 8 mls/hr IV.CONT TITRATE PRN Rx#:[id number] Diprivan 1000 mg/100 ml Inj 1, 100 / 100 000 mg In 100 ml @ 5 MCG/KG/MIN 2.1 mls/hr IV.CONT TITRATE PRN Rx#:[id number] Maxipime Inj 2,000 MG In NS Inj 100 / 100 100 / 100 100 ML @ 200 mls/hr IV.SIG Q12H MONICA Rx#:[id number] Zyvox 600 mg Premix 300 ML @ 300 / 300 300 / 300 300 mls/hr IV.SIG Q12H MONICA Rx#: [id number] Magnesium Sulfate 1 gm/D5W 100 100 / 100 ml Premix 100 ML @ 100 mls/hr IV.SIG Q1H MONICA Rx#:[id number] fentaNYL 10 mcg/mL Premix Drip 394 / 394 2,500 mcg In 250 ml @ 50 MCG/HR 5 mls/hr IV.SIG TITRATE PRN Rx #:[id number] Water Bolus Amount 120 / 120 120 / 120 Output: Urine Amount (Catheter) 550 / 550 1300 / 1300 Indwelling Urethral Catheter 550 / 550 1300 / 1300 Other: # Bowel Movements 0 0 - Urinary Catheter Management Indwelling Urethral Catheter Cath placed during this visit: yes Reason for continuing: Hourly intake/output Insertion date: 06/20/18 Insertion time: 21:24 Assessment and Plan - Assessment (1) Cardiomyopathy Code(s): I42.9 - Cardiomyopathy, unspecified Status: Acute (2) Cardiomyopathy Code(s): I42.9 - Cardiomyopathy, unspecified Status: Acute (3) PVD (peripheral vascular disease) Code(s): I73.9 - Peripheral vascular disease, unspecified Status: Acute (4) PVD (peripheral vascular disease) Code(s): I73.9 - Peripheral vascular disease, unspecified Status: Acute (5) Tobacco abuse Code(s): Z72.0 - Tobacco use Status: Acute (6) Respiratory failure Code(s): J96.90 - Respiratory failure, unspecified, unspecified whether with hypoxia or hypercapnia Status: Acute (7) Non-ST elevated myocardial infarction (non-STEMI) Code(s): I21.4 - Non-ST elevation (NSTEMI) myocardial infarction Status: Acute (8) Pulmonary edema cardiac cause Code(s): I50.1 - Left ventricular failure, unspecified Status: Acute - Plan 1.) NSTEMI - respiratory failure, anoxic encephalopathy, baseline ef=20%; continue supportive care with aspirin, vent; 2.) consider cath under following circumstances; 1.) eeg c/w adequate neurologic recovery 2.) MPS demonstrates myocardial viability 3.) patient cleared for use of heparin, plavix and aggrastat by Dr Campa, heprain currently held due to w/u of thrombocytopenia; d/w Dr Solis, nurse, and children at length and in detail (6) Respiratory failure Qualifiers: Chronicity: acute Respiratory failure complication: hypoxia Qualified Code(s ): J96.01 - Acute respiratory failure with hypoxia
[2018-06-24 18:49] LABS: Activated Partial Thrombo Time 22.9 sec (24.3-30.1); INR 1.2 Ratio; Prothrombin Time 11.9 sec (9.8-11.6)
[2018-06-24] MEDS: Heparin Drip 25,000 UNIT/250 ML BAG IV.CONT PRN (20:15)
[2018-06-24] MEDS ORDERED: Heparin 10,000 UNITS/10 ML Vial (for IV use) IV.PUSH PRN (23:27)
[2018-06-25] MEDS: Insulin NovoLOG Aspart Correctional Sugar Inj SQ SCH ×4 (00:16→19:13)
[2018-06-25] MEDS: Hydrocortisone Sod Succinate 100 MG Vial IV.PUSH SCH ×4 (00:16→19:14)
[2018-06-25] MEDS: Propofol 1000 mg/100 ml Inj 1,000 MG/100 ML BOTTLE IV.CONT PRN ×4 (01:20→22:43)
[2018-06-25] MEDS: Chlorhexidine Gluconate 2% 1 Pack (2 Cloths) TOPICAL SCH (04:40)
[2018-06-25 05:11] LABS: Baso % (Auto) 0.3 % (0.0-2.0); Hematocrit 31.7 % (39.0-51.0); Hemoglobin 10.6 gm/dL (13.0-17.0); Lymph # (Auto) 0.4 th/mm3 (1.0-4.8); Lymph % (Auto) 6.4 % (9.0-44.0); Mean Corpuscular HGB Conc 33.3 % (32.0-36.0); Mean Corpuscular Hemoglobin 31.1 pg (27.0-34.0); Mean Corpuscular Volume 93.5 fL (80.0-100.0); Mean Platelet Volume 11.7 fL (7.0-11.0); Mono # (Auto) 0.4 th/mm3 (0.0-0.9); Mono % (Auto) 5.6 % (0.0-8.0); Neut # (Auto) 5.7 th/mm3 (1.8-7.7); Neut % (Auto) 87.7 % (16.0-70.0); Platelet Count 72 th/mm3 (150-450); Red Cell Distribution Width 16.9 % (11.6-17.2); White Blood Count 6.5 th/mm3 (4.0-11.0)
[2018-06-25] MEDS: Heparin 10,000 UNITS/10 ML Vial (for IV use) IV.PUSH PRN ×2 (05:18→21:16)
[2018-06-25 05:23] LABS: Calcium 8.2 mg/dL (8.5-10.1); Carbon Dioxide 23.1 meq/L (21.0-32.0); Potassium 3.3 meq/L (3.5-5.1)
[2018-06-25 05:31] LABS: Troponin I 1.79 ng/mL (0.02-0.05)
[2018-06-25] MEDS: Potassium Chloride 25 MEQ Effervescent Tablet PO PRN (06:01)
--- NOTE | 2018-06-25 09:28 | P.PNCC ---
Subjective Subjective Remarks/Hospital Course: Elderly male with a medical history significant for viral cardiomyopathy who was traveling on vacation from [place] with his family in [place] and today developed chest pain with worsening shortness of breath for which EMS was called by family. Patient was extremely short of breath on the arrival and hypoxic and they proceeded with endotracheal intubation and patient was transferred to the ER. In the ER it was noted that his cuff was leaking hence ET tube was exchanged by ER physician and patient was placed on mechanical ventilation. 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 He reportedly does not take any diuretic. Chest x-ray done in the ER revealed pulmonary edema. EKG revealed atrial fibrillation. Patient was accepted for admission by critical care medicine service. When I evaluated him in the ER he was sedated with propofol, orally intubated on mechanical ventilation. History was obtained by reviewing records, discussion with family as well as ER physician. Subjective 06/21: Afebrile. Hemodynamically stable. Troponin bumped 14. Started on heparin drip. Sedated with propofol and fentanyl drips. Arousable the ventilator and is very agitated will attempt to withdrawal tube. PEEP down to 5. 06/22: Sedated, orally intubated on mechanical ventilation. Gets agitated unenlightening sedation so Precedex added in addition to propofol and fentanyl. CPAP trials ongoing to decide extubation. Cardiac cath postponed by Dr. Noonan in view of questionable neurologic status. 06/23: Patient was extubated yesterday however was requiring significant amount of O2 post extubation with a facemask as well as nasal cannula. This morning around 4 AM due to increased work of breathing and hypoxia he was reintubated by Dr. Kimble and placed back on mechanical ventilation. Currently he is sedated , orally intubated on mechanical ventilation. Postintubation chest x-ray shows ET tube in appropriate position and pulmonary edema pattern with perihilar infiltrates bilaterally. 06/24: Remains sedated, orally intubated on mechanical ventilation. 06/25: Remains sedated, orally intubated on mechanical ventilation. Objective Vital Signs / I&O: Vital Signs 06/24/18 09:00 06/24/18 09:02 06/24/18 09:30 Temperature Pulse Rate 56 L 56 L 59 L Respiratory Rate 16 16 16 Blood Pressure 127/60 124/60 Pulse Oximetry 99 97 06/24/18 10:00 06/24/18 10:30 06/24/18 11:00 Temperature Pulse Rate 57 L 58 L 59 L Respiratory Rate 16 16 16 Blood Pressure 137/62 147/67 H 145/67 H Pulse Oximetry 98 97 98 06/24/18 11:30 06/24/18 12:00 06/24/18 12:06 Temperature 98.5 F Pulse Rate 59 L 60 Respiratory Rate 16 16 15 Blood Pressure 139/66 147/65 H Pulse Oximetry 98 97 96 06/24/18 12:09 06/24/18 12:30 06/24/18 13:00 Temperature Pulse Rate 57 L 62 61 Respiratory Rate 16 16 16 Blood Pressure 147/67 H 152/66 H Pulse Oximetry 96 94 L 06/24/18 13:34 06/24/18 14:00 06/24/18 14:30 Temperature Pulse Rate 65 58 L 56 L Respiratory Rate 16 16 16 Blood Pressure 147/65 H 149/66 H 149/67 H Pulse Oximetry 99 94 L 95 06/24/18 15:00 06/24/18 15:19 06/24/18 15:30 Temperature Pulse Rate 54 L 56 L 56 L Respiratory Rate 16 16 16 Blood Pressure 148/67 H 144/67 H Pulse Oximetry 94 L 100 94 L 06/24/18 16:00 06/24/18 16:30 06/24/18 17:00 Temperature Pulse Rate 59 L 61 59 L Respiratory Rate 16 16 16 Blood Pressure 150/69 H 156/70 H 155/70 H Pulse Oximetry 94 L 94 L 94 L 06/24/18 17:30 06/24/18 18:00 06/24/18 20:00 Temperature 98.7 F Pulse Rate 58 L 56 L 51 L Respiratory Rate 16 16 16 Blood Pressure 150/66 H 153/67 H 140/63 Pulse Oximetry 95 94 L 96 06/24/18 21:30 06/24/18 22:00 06/25/18 00:00 Temperature 98.2 F Pulse Rate 50 L 51 L 52 L Respiratory Rate 16 16 Blood Pressure 116/57 L Pulse Oximetry 97 96 06/25/18 02:00 06/25/18 04:00 06/25/18 04:46 Temperature 98.4 F Pulse Rate 55 L 61 52 L Respiratory Rate 16 16 Blood Pressure 128/62 Pulse Oximetry 98 99 06/25/18 06:00 06/25/18 08:22 Temperature Pulse Rate 50 L Respiratory Rate 16 Blood Pressure Pulse Oximetry 98 Intake & Output 06/24/18 06/25/18 06/25/18 18:59 06:59 18:59 Intake Total 750 / 750 1060 / 1060 Output Total 1999 / 1999 Balance 750 / 750 -940 / -940 Weight 72.5 kg Intake: IV 750 / 750 1000 / 1000 Precedex Inj 200 MCG In NS Inj 300 / 300 48 ML @ 0.2 MCG/KG/HR 3.6 mls/ hr IV.CONT TITRATE PRN Rx#: [id number] Diprivan 1000 mg/100 ml Inj 1, 200 / 200 200 / 200 000 mg In 100 ml @ 5 MCG/KG/MIN 2.1 mls/hr IV.CONT TITRATE PRN Rx#:[id number] Maxipime Inj 2,000 MG In NS Inj 200 / 200 100 ML @ 200 mls/hr IV.SIG Q12H MONICA Rx#:[id number] Zyvox 600 mg Premix 300 ML @ 600 / 600 300 mls/hr IV.SIG Q12H MONICA Rx#: [id number] fentaNYL 10 mcg/mL Premix Drip 250 / 250 2,500 mcg In 250 ml @ 50 MCG/HR 5 mls/hr IV.SIG TITRATE PRN Rx #:[id number] Water Bolus Amount 60 / 60 Output: Urine Amount (Catheter) 1999 Indwelling Urethral Catheter 1999 Other: # Bowel Movements 0 Result Diagrams: 06/25/18 03:23 06/25/18 03:23 Objective Remarks: GENERAL: 72 yoM orotracheally intubated SKIN: Warm and dry. Chronic venous stasis bilateral lower extremities HEAD: Atraumatic. Normocephalic. EYES: Pupils equal and round. No scleral icterus. No injection or drainage. ENT: No nasal bleeding or discharge. Mucous membranes pink and moist. NECK: Trachea midline. No JVD. CARDIOVASCULAR: Regular rate and rhythm. S1, S2 predose for without murmur RESPIRATORY: Essentially clear anteriorly. No wheezing GASTROINTESTINAL: Abdomen soft, non-tender, slightly protuberant. Hypoactive bowel sounds appreciated MUSCULOSKELETAL: Extremities with trace bilateral lower extremity edema. No obvious deformities. NEUROLOGICAL: Sedated, arousable but not following commands. Moves all 4 extremities spontaneously. Assessment and Plan - Assessment and Plan Plan: Elderly male with: Chest pain Acute respiratory failure on mechanical ventilation Acute decompensated CHF - systolic and dialstolic EF 40% 2017 Staph pneumonia B/L carotid Stenosis 40-59% erectile Dysfunction PAD LBBB- chronic Cardiomyopathy - Dilated NSTEMI Atrial fibrillation Diabetes mellitus Hypertension COPD History of pacemaker/defibrillator placement Diabetes mellitus type 2 uncontrolled with hyperglycemia Hyperlipidemia Glaucoma Normocytic anemia Thrombocytopenia Acute kidney injury Hypoalbuminemia Cystitis Thrombocytopenia Plan: Neuro: Sedation with propofol and fentanyl drips maintain RASS -2, daily sedation vacation. Acetaminophen 650 every 6 hours as needed fever. Follow neuro status. Holding gabapentin 300 mg 3 times daily and baclofen 10 mg 3 times daily/home medications. Continue brimonidine 0.15% 3 times daily. EEG ordered. Cardiovascular: Non-ST elevation TN. cardiology consult requested in view of decompensated CHF, history of cardiomyopathy and positive troponin. Obtain medical records from patient's crop adjuster in [place]. currently A. fib appears to be rate controlled. Continue aspirin 162 mg daily. 81 mg at home started on low-dose beta-ana metoprolol tartrate 12.5 mg twice daily. No ENA inhibitor secondary to acute kidney injury.. Currently on heparin drip due to elevated troponin. Holding cilostazol 50 mg twice daily. Resume simvastatin 20 mg daily/40 mg pravastatin substituted. Cardiac cath postponed per Dr. Noonan till improvement in neurologic status. Awaiting viability study and CT surgery consult per Dr. Noonan. Resume Lasix for diuresis ordered 20 mg IV twice daily Pulmonary: Continue mechanical ventilation, vent bundle, bronchodilators as needed. Peep +5. Diuresis held due to acute kidney injury. Albuterol/ ipratropium every 4 hours with albuterol aerosols every 2 hours as needed dyspnea. CPAP trials to decide extubation GI/liver: Hold tube feeds for possible extubation following CPAP trial today. Renal/: Strict intake output, monitor and replete electrolytes, follow BUN/ creatinine. Diuresis with Lasix ID: Watch for fever/leukocytosis. Cefepime 2 g IV every 12 hours. Influenza a and B-. Blood cultures, urine negative. Sputum cultures growing staph aureus. Will add Zyvox 600 mg IV every 12 hourly on 06/23. Heme: heparin GTT resumed on 8/[address] Campa. Thrombocytopenia noted. Dr. Campa following. HIT screen negative. Per my discussion with Dr. Campa, he is okay with using Plavix if needed or Aggrastat if platelet count remains over 50,000. Endocrine: Holding metformin thousand milligrams twice daily, sitagliptin 100 mg daily sliding scale insulin with aspart insulin high protocol for glycemic control. Started stress dose steroids with hydrocortisone 50 mill grams IV every 6 hourly on 06/23 due to borderline blood pressures and recent prednisone use. Prophylaxis: PPI/SCDs. Heparin GTT for full anticoagulation. Discussed with patient's in detail on 06/24 regarding plan of care and she voiced understanding. Condition critical Time spent on critical care excluding procedures 35 minutes.
[2018-06-25] MEDS: Brimonidine 0.15% Opth Drops 5 ML Bottle EACH EYE SCH ×3 (09:42→19:14)
[2018-06-25] MEDS: Hypromellose 0.3% Opth Gel 10 GM Bottle EACH EYE SCH ×2 (09:43→20:29)
[2018-06-25] MEDS: Metoprolol Tartrate 25 MG Tablet PO SCH ×2 (09:44→20:29)
[2018-06-25] MEDS: fentaNYL 10 mcg/mL Premix Drip 2,500 MCG/250 ML BAG IV.SIG PRN ×2 (12:30→20:57)
[2018-06-25] MEDS ORDERED: DOPamine 800 MG/500 ML Premix 800 MG/500 ML PLAST..BAG IV.CONT PRN (14:00)
--- NOTE | 2018-06-25 14:34 | P.PNCA ---
Subjective Interval history: intubated, sedated Physical Exam Vital signs: Vital Signs 06/24/18 14:30 06/24/18 15:00 06/24/18 15:19 Temperature Pulse Rate 56 L 54 L 56 L Respiratory Rate 16 16 16 Blood Pressure 149/67 H 148/67 H Pulse Oximetry 95 94 L 100 06/24/18 15:30 06/24/18 16:00 06/24/18 16:30 Temperature Pulse Rate 56 L 59 L 61 Respiratory Rate 16 16 16 Blood Pressure 144/67 H 150/69 H 156/70 H Pulse Oximetry 94 L 94 L 94 L 06/24/18 17:00 06/24/18 17:30 06/24/18 18:00 Temperature Pulse Rate 59 L 58 L 56 L Respiratory Rate 16 16 16 Blood Pressure 155/70 H 150/66 H 153/67 H Pulse Oximetry 94 L 95 94 L 06/24/18 20:00 06/24/18 21:30 06/24/18 22:00 Temperature 98.7 F Pulse Rate 51 L 50 L 51 L Respiratory Rate 16 16 Blood Pressure 140/63 Pulse Oximetry 96 97 06/25/18 00:00 06/25/18 02:00 06/25/18 04:00 Temperature 98.2 F 98.4 F Pulse Rate 52 L 55 L 61 Respiratory Rate 16 16 Blood Pressure 116/57 L 128/62 Pulse Oximetry 96 98 06/25/18 04:46 06/25/18 06:00 06/25/18 08:22 Temperature Pulse Rate 52 L 50 L Respiratory Rate 16 16 Blood Pressure Pulse Oximetry 99 98 Intake & Output 06/24/18 06/25/18 06/25/18 18:59 06:59 18:59 Intake Total 750 / 750 1060 / 1060 Output Total 1999 Balance 750 / 750 -940 / -940 Weight 72.5 kg Intake: IV 750 / 750 1000 / 1000 Precedex Inj 200 MCG In NS Inj 300 / 300 48 ML @ 0.2 MCG/KG/HR 3.6 mls/ hr IV.CONT TITRATE PRN Rx#: [id number] Diprivan 1000 mg/100 ml Inj 1, 200 / 200 200 / 200 000 mg In 100 ml @ 5 MCG/KG/MIN 2.1 mls/hr IV.CONT TITRATE PRN Rx#:[id number] Maxipime Inj 2,000 MG In NS Inj 200 / 200 100 ML @ 200 mls/hr IV.SIG Q12H MONICA Rx#:[id number] Zyvox 600 mg Premix 300 ML @ 600 / 600 300 mls/hr IV.SIG Q12H MONICA Rx#: [id number] fentaNYL 10 mcg/mL Premix Drip 250 / 250 2,500 mcg In 250 ml @ 50 MCG/HR 5 mls/hr IV.SIG TITRATE PRN Rx #:[id number] Water Bolus Amount 60 / 60 Output: Urine Amount (Catheter) 1999 Indwelling Urethral Catheter 1999 Other: # Bowel Movements 0 - Urinary Catheter Management Indwelling Urethral Catheter Cath placed during this visit: yes Reason for continuing: Hourly intake/output Insertion date: 06/20/18 Insertion time: 21:24 Assessment and Plan - Assessment (1) Cardiomyopathy Code(s): I42.9 - Cardiomyopathy, unspecified Status: Acute (2) Cardiomyopathy Code(s): I42.9 - Cardiomyopathy, unspecified Status: Acute (3) PVD (peripheral vascular disease) Code(s): I73.9 - Peripheral vascular disease, unspecified Status: Acute (4) PVD (peripheral vascular disease) Code(s): I73.9 - Peripheral vascular disease, unspecified Status: Acute (5) Tobacco abuse Code(s): Z72.0 - Tobacco use Status: Acute (6) Respiratory failure Code(s): J96.90 - Respiratory failure, unspecified, unspecified whether with hypoxia or hypercapnia Status: Acute (7) Non-ST elevated myocardial infarction (non-STEMI) Code(s): I21.4 - Non-ST elevation (NSTEMI) myocardial infarction Status: Acute (8) Pulmonary edema cardiac cause Code(s): I50.1 - Left ventricular failure, unspecified Status: Acute - Plan 1.) NSTEMI - respiratory failure, anoxic encephalopathy, baseline ef=20%; continue supportive care with aspirin, vent; 2.) consider cath under following circumstances; 1.) eeg c/w adequate neurologic recovery 2.) MPS demonstrates myocardial viability 3.) patient cleared for use of heparin, plavix and aggrastat by Dr Campa, heprain currently held due to w/u of thrombocytopenia; d/w Dr Solis, nurse, and children at length and in detail $.) according to nurse patient sedation has been very difficult and patient moving all 4 extremities extensively, this would would additionally make cath/pci high risk for significant morbidity and mortality, therefore would need adequate sedation for cath/pci , adequate sedation has not been consistently accomplished. (6) Respiratory failure Qualifiers: Chronicity: acute Respiratory failure complication: hypoxia Qualified Code(s ): J96.01 - Acute respiratory failure with hypoxia
--- NOTE | 2018-06-25 16:53 | P.PNPAL ---
Reason for Visit Reason for visit: a. To assist with evaluation and management of symptoms including: dyspnea, pain, agitation b. To assist medical decision maker(s) with: better understanding of current medical conditions; weighing benefits/burdens of medical treatment options; making medical treatment decisions. Subjective Subjective/Interval History: Pt in bed sedated and intubated on vent, somewhat agitated. he was reintubated 06/23. , daughter, RN Andre at bedside. asking if she should start having family come to see him. Pt does not appear to be painful, no grimacing on exam. He is agitated, flexing legs and pulling at restraint. Opens eyes, not tracking. Does not follow commands. He has been bradycardic until this morning , his pacer was reset to 60. Precedex infusion restarted at time of my eval. Per cadiology needs to have agitation well controlled before further work up. Family/Friend Interactions: Provided medical update to . Answered questions to best of my ability. It does appear she is beginning to process the severity of pt's illness. SHe wants to wait and see if pt can be calmed further and could have the MPS. Objective Vital Signs: Vital Signs 06/24/18 16:30 06/24/18 17:00 06/24/18 17:30 Temperature Pulse Rate 61 59 L 58 L Respiratory Rate 16 16 16 Blood Pressure 156/70 H 155/70 H 150/66 H Pulse Oximetry 94 L 94 L 95 06/24/18 18:00 06/24/18 20:00 06/24/18 21:30 Temperature 98.7 F Pulse Rate 56 L 51 L 50 L Respiratory Rate 16 16 16 Blood Pressure 153/67 H 140/63 Pulse Oximetry 94 L 96 97 06/24/18 22:00 06/25/18 00:00 06/25/18 02:00 Temperature 98.2 F Pulse Rate 51 L 52 L 55 L Respiratory Rate 16 Blood Pressure 116/57 L Pulse Oximetry 96 06/25/18 04:00 06/25/18 04:46 06/25/18 06:00 Temperature 98.4 F Pulse Rate 61 52 L 50 L Respiratory Rate 16 16 Blood Pressure 128/62 Pulse Oximetry 98 99 06/25/18 08:22 06/25/18 15:41 Temperature Pulse Rate Respiratory Rate 16 16 Blood Pressure Pulse Oximetry 98 98 Intake & Output 06/24/18 06/25/18 06/25/18 18:59 06:59 18:59 Intake Total 750 / 750 1060 / 1060 100 / 100 Output Total 1999 Balance 750 / 750 -940 / -940 100 / 100 Weight 72.5 kg Intake: IV 750 / 750 1000 / 1000 100 / 100 Precedex Inj 200 MCG In NS Inj 300 / 300 48 ML @ 0.2 MCG/KG/HR 3.6 mls/ hr IV.CONT TITRATE PRN Rx#: [id number] Diprivan 1000 mg/100 ml Inj 1, 200 / 200 200 / 200 100 / 100 000 mg In 100 ml @ 5 MCG/KG/MIN 2.1 mls/hr IV.CONT TITRATE PRN Rx#:[id number] Maxipime Inj 2,000 MG In NS Inj 200 / 200 100 ML @ 200 mls/hr IV.SIG Q12H MONICA Rx#:[id number] Zyvox 600 mg Premix 300 ML @ 600 / 600 300 mls/hr IV.SIG Q12H MONICA Rx#: [id number] fentaNYL 10 mcg/mL Premix Drip 250 / 250 2,500 mcg In 250 ml @ 50 MCG/HR 5 mls/hr IV.SIG TITRATE PRN Rx #:[id number] Water Bolus Amount 60 / 60 Output: Urine Amount (Catheter) 1999 Indwelling Urethral Catheter 1999 Other: # Bowel Movements 0 Physical Exam: CONSTITUTIONAL/GENERAL: This is an adequately nourished patient, mildly agitated. SKIN: No jaundice, rashes, or lesions. No wounds seen anteriorly. Skin temperature appropriate. Not diaphoretic. HEAD: Atraumatic. Normocephalic. EYES: Pupils constricted. No scleral icterus. No injection or drainage. Fundi not examined. ENT: hearing grossly normal. Nose without bleeding or purulent drainage. NECK: Trachea midline. CARDIOVASCULAR: RRR without murmurs, gallops, or rubs. RESPIRATORY/CHEST: Symmetric, unlabored respirations. CTA GASTROINTESTINAL: Abdomen soft, nondistended. No hepato-splenomegaly, or palpable masses. No guarding. Bowel sounds present. GENITOURINARY: Without palpable bladder distension. Nevarez catheter in place. MUSCULOSKELETAL: Extremities without clubbing, cyanosis, or edema. No mottling or clubbing. NEUROLOGICAL: opens eyes, does not track, does not follow commands. agitated PSYCHIATRIC: unable to assess, pt sedated on vent Diagnostic Tests Laboratory: Laboratory Results - last 72 hr 06/22/18 06/22/18 06/22/18 06:20 15:50 17:05 WBC RBC Hgb Hct MCV MCH MCHC RDW Plt Count MPV Prelim Diff (Auto) Neut % (Auto) Lymph % (Auto) Christian % (Auto) Eos % (Auto) Baso % (Auto) Neut # (Auto) Lymph # (Auto) Christian # (Auto) Eos # (Auto) Baso # (Auto) WBC Differential Diff Scan Differential Comment Platelet Estimate Platelet Morphology PT INR APTT 35.0 H Puncture Site Patient Temperature O2 Saturation ABG pH ABG pCO2 ABG pO2 ABG HCO3 ABG O2 Content ABG Base Excess ABG Methemoglobin Carlos Test Hemoglobin Carboxyhemoglobin O2 Delivery Device Liter Flow Vent Setting Inspired O2 Critical Value Sodium Potassium Chloride Carbon Dioxide Anion Gap BUN Creatinine Estimated GFR POC Glucose 198 H Random Glucose Hemoglobin A1c 5.5 Calcium Phosphorus Magnesium Total Creatine Kinase CK-MB (CK-2) CK-MB (CK-2) % Troponin I B-Natriuretic Peptide Vitamin B12 Hep-Induced Plt Ab Rachel HIPA Patient OD 06/22/18 06/22/18 06/23/18 22:37 23:21 03:36 WBC 4.8 RBC 3.60 L Hgb 11.2 L Hct 33.5 L MCV 93.2 MCH 31.2 MCHC 33.5 RDW 16.6 Plt Count 51 L MPV 10.3 Prelim Diff (Auto) Neut % (Auto) Lymph % (Auto) Christian % (Auto) Eos % (Auto) Baso % (Auto) Neut # (Auto) Lymph # (Auto) Christian # (Auto) Eos # (Auto) Baso # (Auto) WBC Differential Diff Scan Differential Comment Platelet Estimate Platelet Morphology PT INR APTT 37.6 H Puncture Site Patient Temperature O2 Saturation ABG pH ABG pCO2 ABG pO2 ABG HCO3 ABG O2 Content ABG Base Excess ABG Methemoglobin Carlos Test Hemoglobin Carboxyhemoglobin O2 Delivery Device Liter Flow Vent Setting Inspired O2 Critical Value Sodium Potassium Chloride Carbon Dioxide Anion Gap BUN Creatinine Estimated GFR POC Glucose 146 H Random Glucose Hemoglobin A1c Calcium Phosphorus Magnesium Total Creatine Kinase CK-MB (CK-2) CK-MB (CK-2) % Troponin I B-Natriuretic Peptide Vitamin B12 Hep-Induced Plt Ab Rachel HIPA Patient OD 06/23/18 06/23/18 06/23/18 03:36 04:34 06:02 WBC RBC Hgb Hct MCV MCH MCHC RDW Plt Count MPV Prelim Diff (Auto) Neut % (Auto) Lymph % (Auto) Christian % (Auto) Eos % (Auto) Baso % (Auto) Neut # (Auto) Lymph # (Auto) Christian # (Auto) Eos # (Auto) Baso # (Auto) WBC Differential Diff Scan Differential Comment Platelet Estimate Platelet Morphology PT INR APTT 38.5 H Puncture Site Right radial Right radial Patient Temperature 98.6 98.6 O2 Saturation 89 L* 92 ABG pH 7.43 H 7.25 L* ABG pCO2 29 L 43 H ABG pO2 64 84 ABG HCO3 19 L 18 L ABG O2 Content 14.8 16.9 ABG Base Excess -4.9 L -7.6 L ABG Methemoglobin 1.7 1.7 Carlos Test Present Present Hemoglobin 11.7 L 13.1 Carboxyhemoglobin 1.1 0.7 O2 Delivery Device Nrp Ventilator Liter Flow 15.00 Vent Setting Prvc/ ac Inspired O2 100 Critical Value Yes Yes Sodium Potassium Chloride Carbon Dioxide Anion Gap BUN Creatinine Estimated GFR POC Glucose Random Glucose Hemoglobin A1c Calcium Phosphorus Magnesium Total Creatine Kinase CK-MB (CK-2) CK-MB (CK-2) % Troponin I B-Natriuretic Peptide Vitamin B12 Hep-Induced Plt Ab Rachel HIPA Patient OD 06/23/18 06/23/18 06/23/18 06:04 11:50 14:23 WBC RBC Hgb Hct MCV MCH MCHC RDW Plt Count MPV Prelim Diff (Auto) Neut % (Auto) Lymph % (Auto) Christian % (Auto) Eos % (Auto) Baso % (Auto) Neut # (Auto) Lymph # (Auto) Christian # (Auto) Eos # (Auto) Baso # (Auto) WBC Differential Diff Scan Differential Comment Platelet Estimate Platelet Morphology PT INR APTT 27.1 D Puncture Site Patient Temperature O2 Saturation ABG pH ABG pCO2 ABG pO2 ABG HCO3 ABG O2 Content ABG Base Excess ABG Methemoglobin Carlos Test Hemoglobin Carboxyhemoglobin O2 Delivery Device Liter Flow Vent Setting Inspired O2 Critical Value Sodium Potassium Chloride Carbon Dioxide Anion Gap BUN Creatinine Estimated GFR POC Glucose 185 H Random Glucose Hemoglobin A1c Calcium Phosphorus Magnesium Total Creatine Kinase CK-MB (CK-2) CK-MB (CK-2) % Troponin I B-Natriuretic Peptide Vitamin B12 Hep-Induced Plt Ab Rachel Negative HIPA Patient OD 0.260 06/23/18 06/23/18 06/23/18 18:14 20:50 20:50 WBC RBC Hgb Hct MCV MCH MCHC RDW Plt Count MPV Prelim Diff (Auto) Neut % (Auto) Lymph % (Auto) Christian % (Auto) Eos % (Auto) Baso % (Auto) Neut # (Auto) Lymph # (Auto) Christian # (Auto) Eos # (Auto) Baso # (Auto) WBC Differential Diff Scan Differential Comment Platelet Estimate Platelet Morphology PT INR APTT Puncture Site Patient Temperature O2 Saturation ABG pH ABG pCO2 ABG pO2 ABG HCO3 ABG O2 Content ABG Base Excess ABG Methemoglobin Carlos Test Hemoglobin Carboxyhemoglobin O2 Delivery Device Liter Flow Vent Setting Inspired O2 Critical Value Sodium 140 Potassium 3.9 Chloride 108 H Carbon Dioxide 21.8 Anion Gap 10 BUN 24 H Creatinine 1.29 Estimated GFR 55 L POC Glucose 266 H Random Glucose 272 H D Hemoglobin A1c Calcium 8.5 Phosphorus 2.9 Magnesium 1.7 Total Creatine Kinase 329 H CK-MB (CK-2) 3.6 CK-MB (CK-2) % 1.1 Troponin I 2.28 H* B-Natriuretic Peptide Vitamin B12 Hep-Induced Plt Ab Rachel HIPA Patient OD 06/23/18 06/24/18 06/24/18 23:26 05:48 06:06 WBC 4.8 RBC 3.62 L Hgb 11.3 L Hct 33.6 L MCV 92.8 MCH 31.1 MCHC 33.5 RDW 16.9 Plt Count 66 L MPV 10.6 Prelim Diff (Auto) Slide review pending Neut % (Auto) 85.5 H Lymph % (Auto) 7.9 L Christian % (Auto) 6.5 Eos % (Auto) 0.0 Baso % (Auto) 0.1 Neut # (Auto) 4.1 Lymph # (Auto) 0.4 L Christian # (Auto) 0.3 Eos # (Auto) 0.0 Baso # (Auto) 0.0 WBC Differential . Diff Scan Auto diff confirmed Differential Comment . Platelet Estimate Low L Platelet Morphology Normal PT INR APTT Puncture Site Patient Temperature O2 Saturation ABG pH ABG pCO2 ABG pO2 ABG HCO3 ABG O2 Content ABG Base Excess ABG Methemoglobin Carlos Test Hemoglobin Carboxyhemoglobin O2 Delivery Device Liter Flow Vent Setting Inspired O2 Critical Value Sodium Potassium Chloride Carbon Dioxide Anion Gap BUN Creatinine Estimated GFR POC Glucose 281 H 285 H Random Glucose Hemoglobin A1c Calcium Phosphorus Magnesium Total Creatine Kinase CK-MB (CK-2) CK-MB (CK-2) % Troponin I B-Natriuretic Peptide Vitamin B12 Hep-Induced Plt Ab Rachel HIPA Patient OD 06/24/18 06/24/18 06/24/18 11:21 11:21 11:40 WBC RBC Hgb Hct MCV MCH MCHC RDW Plt Count MPV Prelim Diff (Auto) Neut % (Auto) Lymph % (Auto) Christian % (Auto) Eos % (Auto) Baso % (Auto) Neut # (Auto) Lymph # (Auto) Christian # (Auto) Eos # (Auto) Baso # (Auto) WBC Differential Diff Scan Differential Comment Platelet Estimate Platelet Morphology PT INR APTT Puncture Site Patient Temperature O2 Saturation ABG pH ABG pCO2 ABG pO2 ABG HCO3 ABG O2 Content ABG Base Excess ABG Methemoglobin Carlos Test Hemoglobin Carboxyhemoglobin O2 Delivery Device Liter Flow Vent Setting Inspired O2 Critical Value Sodium Potassium Chloride Carbon Dioxide Anion Gap BUN Creatinine Estimated GFR POC Glucose 241 H Random Glucose Hemoglobin A1c Calcium Phosphorus Magnesium Total Creatine Kinase CK-MB (CK-2) CK-MB (CK-2) % Troponin I 1.64 H* B-Natriuretic Peptide Vitamin B12 510 Hep-Induced Plt Ab Rachel HIPA Patient OD 06/24/18 06/24/18 06/24/18 17:50 18:05 23:42 WBC RBC Hgb Hct MCV MCH MCHC RDW Plt Count MPV Prelim Diff (Auto) Neut % (Auto) Lymph % (Auto) Christian % (Auto) Eos % (Auto) Baso % (Auto) Neut # (Auto) Lymph # (Auto) Christian # (Auto) Eos # (Auto) Baso # (Auto) WBC Differential Diff Scan Differential Comment Platelet Estimate Platelet Morphology PT 11.9 H INR 1.2 APTT 22.9 L Puncture Site Patient Temperature O2 Saturation ABG pH ABG pCO2 ABG pO2 ABG HCO3 ABG O2 Content ABG Base Excess ABG Methemoglobin Carlos Test Hemoglobin Carboxyhemoglobin O2 Delivery Device Liter Flow Vent Setting Inspired O2 Critical Value Sodium Potassium Chloride Carbon Dioxide Anion Gap BUN Creatinine Estimated GFR POC Glucose 285 H 265 H Random Glucose Hemoglobin A1c Calcium Phosphorus Magnesium Total Creatine Kinase CK-MB (CK-2) CK-MB (CK-2) % Troponin I B-Natriuretic Peptide Vitamin B12 Hep-Induced Plt Ab Rachel HIPA Patient OD 06/25/18 06/25/18 06/25/18 03:23 03:23 03:23 WBC 6.5 RBC 3.40 L Hgb 10.6 L Hct 31.7 L MCV 93.5 MCH 31.1 MCHC 33.3 RDW 16.9 Plt Count 72 L MPV 11.7 H Prelim Diff (Auto) Slide review pending Neut % (Auto) 87.7 H Lymph % (Auto) 6.4 L Christian % (Auto) 5.6 Eos % (Auto) 0.0 Baso % (Auto) 0.3 Neut # (Auto) 5.7 Lymph # (Auto) 0.4 L Christian # (Auto) 0.4 Eos # (Auto) 0.0 Baso # (Auto) 0.0 WBC Differential . Diff Scan Auto diff confirmed Differential Comment . Platelet Estimate Low L Platelet Morphology Enlarged H PT INR APTT Puncture Site Patient Temperature O2 Saturation ABG pH ABG pCO2 ABG pO2 ABG HCO3 ABG O2 Content ABG Base Excess ABG Methemoglobin Carlos Test Hemoglobin Carboxyhemoglobin O2 Delivery Device Liter Flow Vent Setting Inspired O2 Critical Value Sodium 141 Potassium 3.3 L Chloride 106 Carbon Dioxide 23.1 Anion Gap 12 BUN 30 H Creatinine 1.38 H Estimated GFR 51 L POC Glucose Random Glucose 176 H Hemoglobin A1c Calcium 8.2 L Phosphorus Magnesium Total Creatine Kinase CK-MB (CK-2) CK-MB (CK-2) % Troponin I 1.79 H* B-Natriuretic Peptide 1022 H Vitamin B12 Hep-Induced Plt Ab Rachel HIPA Patient OD 06/25/18 06/25/18 06/25/18 03:23 05:40 13:21 WBC RBC Hgb Hct MCV MCH MCHC RDW Plt Count MPV Prelim Diff (Auto) Neut % (Auto) Lymph % (Auto) Christian % (Auto) Eos % (Auto) Baso % (Auto) Neut # (Auto) Lymph # (Auto) Christian # (Auto) Eos # (Auto) Baso # (Auto) WBC Differential Diff Scan Differential Comment Platelet Estimate Platelet Morphology PT INR APTT 27.3 39.7 H D Puncture Site Patient Temperature O2 Saturation ABG pH ABG pCO2 ABG pO2 ABG HCO3 ABG O2 Content ABG Base Excess ABG Methemoglobin Carlos Test Hemoglobin Carboxyhemoglobin O2 Delivery Device Liter Flow Vent Setting Inspired O2 Critical Value Sodium Potassium Chloride Carbon Dioxide Anion Gap BUN Creatinine Estimated GFR POC Glucose 159 H Random Glucose Hemoglobin A1c Calcium Phosphorus Magnesium Total Creatine Kinase CK-MB (CK-2) CK-MB (CK-2) % Troponin I B-Natriuretic Peptide Vitamin B12 Hep-Induced Plt Ab Rachel HIPA Patient OD Result Diagrams: 06/25/18 03:23 06/25/18 03:23 Microbiology: Microbiology 06/23/18 14:31 Aerobic Blood Culture - Preliminary Blood - Peripheral No growth in 2 days Anaerobic Blood Culture - Preliminary No growth in 2 days 06/23/18 11:50 Aerobic Blood Culture - Preliminary Blood - Peripheral No growth in 2 days Anaerobic Blood Culture - Preliminary No growth in 2 days 06/20/18 20:50 Aerobic Blood Culture - Final Blood - Peripheral No growth in 5 days Anaerobic Blood Culture - Final No growth in 5 days 06/21/18 02:10 Gram Stain - Final Sputum - Endotracheal Sputum Culture - Final Staphylococcus aureus Imaging: ITS Impressions Abdomen/Bladder Ultrasound 06/21/18 00:00 CONCLUSION: 1. Increased echogenicity of both kidneys typical of chronic parenchymal disease. 2. No evidence of acute obstructive uropathy. 3. Bilateral benign appearing renal cysts. Head CT 06/21/18 00:00 CONCLUSION: 1. Aging brain with mild volume loss. 2. No evidence of acute infarct, hemorrhage, mass or edema. . Chest X-Ray 06/23/18 00:00 CONCLUSION: Improving bilateral perihilar pulmonary edema. Assessment and Plan - Disease Oriented Problem List (1) Respiratory failure (2) Non-ST elevated myocardial infarction (non-STEMI) (3) Cardiomyopathy (4) PVD (peripheral vascular disease) (5) Tobacco abuse - Symptom Scale (1) Dyspnea 0-10 Scale: Unable to quantify (2) Pain 0-10 Scale: Unable to quantify (3) Agitation 0-10 Scale: Unable to quantify Pertinent Non-Medical Issues: Psychosocial: Pt originally from [place]. with 4 kids. 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 Spiritual: confucianist. decline silk brusher visit. Legal: Per [place] statute is proxy decision maker. Ethical issues impacting care: none Important Contacts: Kristine Avila, - [phone] Prognosis: This is a 72-year-old male with history CHF, COPD, tobacco abuse, diabetes who presented 06/20 [place] He has a defibrillator implanted. His baseline ejection fraction is 25% and he is now at less than 20%. Per cardiology likely N STEMI. Cardiology considering cath procedure if patient recovers neurologically, can be anticoagulated, and agitation controlled, and if it is clear that procedure will offer some benefit. Patient reintubated 06/23. He is at high risk for continued complications and decline. Code Status: Full Code Plan: - LEGAL DECISON MAKER -patient is incapacitated to make medical decisions. Per [place] statutes his proxy decision maker - CODE STATUS-full code - GOALS - Goals are aggressive, but does appear is beginning to process severity of pt's illness, considering asking family to come visit. Previously she said "If he's not brain he's alive." - SYMPTOMS - * pain - risk for pain, multifactorial. chest pain prior to admission. had been having frequent muscle cramps and spasms. just extubated. appears comfortable on my exam, no grimacing to palpation. on fentanyl gtt 25ml/hr * dyspnea -reintubated 06/23. Recent N STEMI. EF < 20%. In the past month has been having increasing activity intolerance. scheduled DuoNeb's * agitation - multlifactorial. per RN seems to have been more agitated with episodes bradycardia. he is flexing and pulling at restraints. unable to determine if movement is purposeful, he does not track or follow commands. on 22.4 ml propofol, precedex just initiated at time of my eval. has fentanyl also. - Palliative care will continue to follow during hospital course as condition evolves, to assist patient/decision-maker with understanding of medical conditions, weighing benefits/burdens of treatment options, for clarification of goals of treatment. Additionally will assist with any symptoms of palliative concern Attestation Attestation: To help prompt me to consider important information that might be impacting today's encounter and assessment, information from prior notes written by myself or my colleagues may have been "brought forward" into today's note. My signature on this note, however, is an attestation that I personally performed the exam, history, and/or decision-making noted today, and, unless otherwise indicated, the interactions with patient, family, and staff as well as the review of records all occurred today. I also attest that the listed assessment and stated plan reflect my best clinical judgment today based on the combination of historical information, prior notes, and today's exam/ interactions. When time spent is documented, it refers only to time spent today by the signer, or if indicated, combined time spent today by collaborating physician/nurse practitioner.
--- NOTE | 2018-06-25 17:38 | MB ---
cc: Yolanda Garcia MD DATE: 06/25/2018 HISTORY OF PRESENT ILLNESS: A 72-year-old male who is on vacation here from [place], admitted on 06/20/2018 with shortness of breath. EMS was called by the family when the patient was extremely short of breath, per the ED note on arrival. Also hypoxic, which required intubation. It was noted that there was a cuff leak, so they ended up changing out the ET tube. 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 He was also found to have pulmonary edema, also atrial fibrillation. Troponins were elevated at 1.79. We were consulted by cardiology to evaluate candidacy for the patient for possible coronary artery bypass grafting; however, the patient remains intubated. There is a question of hypoxic encephalitis. The CT scan showed no infarct and no hemorrhage. The patient remains intubated. He is currently on propofol and also fentanyl and when the dosage has been reduced, he is very agitated, not following commands, not tracking. He does move all extremities spontaneously, but not purposefully. Despite his being at the bedside, the patient is still very restless and sometimes agitated, hitting his legs on the side of the rails, pulling at the restraints. He was initially extubated on the 06/23/2018 but then reintubated that same day after increased work of breathing and respiratory failure. At this time, no cardiac catheterization has been done for further evaluation. PAST MEDICAL HISTORY: Includes dilated cardiomyopathy, bilateral carotid stenosis 40%-60%, erectile dysfunction, peripheral arterial disease, chronic left bundle branch block, admission with a non-STEMI, atrial fibrillation, diabetes mellitus, hypertension, COPD. He has a pacer defibrillator in situ, diabetes mellitus type 2, hyperlipidemia, glaucoma, normocytic anemia, thrombocytopenia, acute kidney injury. PAST SURGICAL HISTORY: Include the pacer ICD. ALLERGIES: INCLUDE HYDROMORPHONE, NEURONTIN, BEE VENOM PROTEIN. HOME MEDICATIONS: 1. Anoro Ellipta. 2. Aspirin. 3. Baclofen. 4. Gabapentin. 5. Metformin. 6. Omeprazole. 7. Januvia. 8. Primidone eyedrops. 9. Cilostazol. 8. Simvastatin. CURRENT MEDICATIONS: 1. Cefepime. 2. Precedex. 3. Fentanyl. 4. Lasix. 5. Heparin drip. 6. Solu-Cortef. 7. Zyvox. 8. Low-dose beta ana if tolerated. 9. Pravachol. 10. Propofol. FAMILY HISTORY: Noncontributory. SOCIAL HISTORY: Positive for tobacco abuse. Lives at home with his traveling here on vacation. He drinks a few beers per week. There has also been some reluctance to see physicians and continued tobacco abuse. REVIEW OF SYSTEMS: Unobtainable. PHYSICAL EXAMINATION: VITAL SIGNS: Blood pressure 128/60, heart rate of 50-60 on 40% FiO2, O2 saturation 98%. GENERAL: The patient is intubated, on sedation; however, he is very agitated. Moves all extremities. Not following commands, not tracking. HEENT: Head is normocephalic. Pupils are approximately 2 mm midline. He does have an occasional left upward gaze. NECK: Supple. No JVD. HEART: Sounds S1, S2, slightly tachycardic. LUNGS: Coarse bilateral breath sounds. Orally intubated. He is an OG tube in place. ABDOMEN: Soft, nontender. No masses or organomegaly. EXTREMITIES: Reveal muscle wasting. He has got some ecchymosis to his upper extremities and now also has a foot wound from hitting the side rail. IMAGING STUDIES: A chest x-ray on 06/23/2018, some perihilar pulmonary edema. LABORATORY DATA: Hemoglobin 10.6, hematocrit of 31, white cell count of 6.5, platelet count of 72, up from 50. HIT panel negative. Sodium 141, potassium 3.6, BUN of 30, creatinine 1.38. Troponin 1.79. BNP of 1022. Urinalysis showing occasional bacteria. Toxicology screen was positive for benzodiazepines. MRSA not detected. Microbiology shows Staphylococcus aureus in the sputum. Blood cultures negative. Urine culture no growth. IMPRESSION: This is a 72-year-old man with multifactorial comorbidities to include recent [id number] myocardial infarction, acute respiratory failure with chronic diastolic/systolic cardiomyopathy, now with decompensated congestive heart failure. Echocardiogram on 06/21/2018 showed an ejection fraction of 20%, left atrial size moderately dilated mitral valve, mild mitral regurgitation, mild tricuspid regurgitation. No cardiac catheterization at present, probably secondary to his neurologic status. He has got a probable acute hypoxic encephalopathy. The patient underwent EEG on 06/24/2018 which showed some diffuse slowing consistent with moderate diffuse encephalopathy; however, he is still under sedation with propofol, Precedex, and fentanyl. At this time, the patient needs to be cleared neurologically, hopefully extubated and able to follow commands. This was explained with the . At this time, he is not a candidate for surgery due to his neurological status. Again, recommending weaning the ventilator, continuing maximizing medications, medical therapy. Further planning per Dr. Yolanda Garcia. Dictated by DALTON Barrera MD EMILIANA Fletcher/sherrill , 04:35 PM , 04:51 PM
[2018-06-25] MEDS: Dexmedetomidine Inj 200 MCG in Sodium Chlor 0.9% Inj 48 ML IV.CONT PRN (19:27)
[2018-06-25] MEDS: Heparin Drip 25,000 UNIT/250 ML BAG IV.CONT PRN (21:09)
[2018-06-26] MEDS: Hydrocortisone Sod Succinate 100 MG Vial IV.PUSH SCH ×5 (00:46→23:42)
[2018-06-26] MEDS: Insulin NovoLOG Aspart Correctional Sugar Inj SQ SCH ×4 (00:47→20:17)
[2018-06-26] MEDS: Propofol 1000 mg/100 ml Inj 1,000 MG/100 ML BOTTLE IV.CONT PRN ×4 (02:20→20:44)
[2018-06-26 04:36] LABS: Baso % (Auto) 0.2 % (0.0-2.0); Eos % (Auto) 0.1 % (0.0-4.0); Hematocrit 31.7 % (39.0-51.0); Hemoglobin 10.8 gm/dL (13.0-17.0); Lymph # (Auto) 0.3 th/mm3 (1.0-4.8); Lymph % (Auto) 7.1 % (9.0-44.0); Mean Corpuscular Volume 91.2 fL (80.0-100.0); Mean Platelet Volume 10.6 fL (7.0-11.0); Mono # (Auto) 0.2 th/mm3 (0.0-0.9); Mono % (Auto) 5.4 % (0.0-8.0); Neut # (Auto) 3.9 th/mm3 (1.8-7.7); Neut % (Auto) 87.2 % (16.0-70.0); Platelet Count 60 th/mm3 (150-450); Red Blood Count 3.48 mil/mm3 (4.50-5.90); Red Cell Distribution Width 16.5 % (11.6-17.2); White Blood Count 4.5 th/mm3 (4.0-11.0)
[2018-06-26] MEDS: fentaNYL 10 mcg/mL Premix Drip 2,500 MCG/250 ML BAG IV.SIG PRN ×2 (05:16→15:34)
[2018-06-26] MEDS: Dexmedetomidine Inj 200 MCG in Sodium Chlor 0.9% Inj 48 ML IV.CONT PRN ×5 (05:16→23:41)
[2018-06-26 05:20] LABS: Platelet Morphology Normal (Normal)
[2018-06-26] MEDS: Metoprolol Tartrate 25 MG Tablet PO SCH ×2 (09:12→20:01)
[2018-06-26] MEDS: Hypromellose 0.3% Opth Gel 10 GM Bottle EACH EYE SCH ×2 (09:52→20:05)
[2018-06-26] MEDS: Brimonidine 0.15% Opth Drops 5 ML Bottle EACH EYE SCH ×3 (09:52→18:32)
--- NOTE | 2018-06-26 12:23 | P.PNPAL ---
Reason for Visit Reason for visit: a. To assist with evaluation and management of symptoms including: dyspnea, pain, agitation b. To assist medical decision maker(s) with: better understanding of current medical conditions; weighing benefits/burdens of medical treatment options; making medical treatment decisions. Subjective Subjective/Interval History: Patient resting in bed in no acute distress. Much calmer today. Appears comfortable. Injured bilateral big toes yesterday while flailing in bed. Both toes bandaged. Right toe with scant blood. Going for cardiac cath this afternoon. HR appears to be completely paced, frequent PVCs on monitor. CV surgery consulted, not candidate at this time. 5.4ml/hr precedex, 25ml/hr fentanyl, 21 ml/hr propofol. Lungs CTA. Family/Friend Interactions: Discussion with at bedside Provided medical update reviewed likely scenarios with ongoing aggressive care - high risk for cath procedure - reviewed pt advanced directives verbalized to in previous conversations - "if there's a problem he'd want it fixed but he would never want to be like this if there was no hope," "for him living was taking care of the house and the yard and family time and traveling" - reviewed goals - asking about transfer to other hospital - reviewed 's understanding of prognosis and medical status currently - all questions answered to best of my ability proceeding with cath procedure, seems to have reasonable insight about risks and prognosis. Verbalizes pt would not want to be kept alive on machines if there was no hope of recovery or cure. "if there's a problem he'd want it fixed but he would never want to be like this if there was no hope...for him living was taking care of the house and the yard and traveling and seeing family." Objective Vital Signs: Vital Signs 06/25/18 14:00 06/25/18 14:40 06/25/18 14:50 Temperature Pulse Rate 41 L 40 L 40 L Respiratory Rate 23 16 Blood Pressure 116/56 L 114/55 L Pulse Oximetry 99 98 06/25/18 15:00 06/25/18 15:10 06/25/18 15:20 Temperature Pulse Rate 43 L 59 L 60 Respiratory Rate 17 16 16 Blood Pressure 120/56 L 110/53 L 139/65 Pulse Oximetry 98 98 99 06/25/18 15:25 06/25/18 15:30 06/25/18 15:35 Temperature Pulse Rate 60 60 60 Respiratory Rate 16 16 16 Blood Pressure 127/60 128/57 L 129/57 L Pulse Oximetry 98 98 98 06/25/18 15:40 06/25/18 15:41 06/25/18 15:51 Temperature Pulse Rate 60 72 Respiratory Rate 16 16 20 Blood Pressure 132/62 116/67 Pulse Oximetry 98 98 100 06/25/18 15:55 06/25/18 16:00 06/25/18 16:15 Temperature Pulse Rate 62 60 60 Respiratory Rate 16 16 16 Blood Pressure 124/67 120/60 116/58 L Pulse Oximetry 100 99 99 06/25/18 16:30 06/25/18 16:45 06/25/18 17:00 Temperature Pulse Rate 60 60 60 Respiratory Rate 16 16 16 Blood Pressure 126/56 L 122/58 L 129/58 L Pulse Oximetry 100 100 99 06/25/18 17:15 06/25/18 17:30 06/25/18 17:45 Temperature Pulse Rate 60 60 60 Respiratory Rate 16 16 16 Blood Pressure 133/60 132/61 135/61 Pulse Oximetry 99 99 99 06/25/18 18:00 06/25/18 18:15 06/25/18 18:30 Temperature Pulse Rate 60 60 60 Respiratory Rate 16 16 16 Blood Pressure 135/63 136/63 136/63 Pulse Oximetry 99 98 98 06/25/18 18:45 06/25/18 19:00 06/25/18 19:15 Temperature Pulse Rate 60 60 60 Respiratory Rate 16 16 16 Blood Pressure 136/63 138/64 136/63 Pulse Oximetry 98 97 97 06/25/18 20:00 06/25/18 20:51 06/25/18 21:30 Temperature 98.7 F Pulse Rate 60 Respiratory Rate 16 16 16 Blood Pressure 126/59 L Pulse Oximetry 98 06/25/18 22:00 06/25/18 22:59 06/26/18 00:00 Temperature 97.6 F Pulse Rate 60 60 Respiratory Rate 16 16 Blood Pressure 131/63 Pulse Oximetry 100 06/26/18 02:00 06/26/18 03:23 06/26/18 04:00 Temperature 98.4 F Pulse Rate 60 60 Respiratory Rate 17 16 Blood Pressure 129/62 Pulse Oximetry 98 06/26/18 05:50 06/26/18 06:00 06/26/18 08:08 Temperature Pulse Rate 60 Respiratory Rate 16 16 Blood Pressure Pulse Oximetry 99 06/26/18 11:41 Temperature Pulse Rate Respiratory Rate 16 Blood Pressure Pulse Oximetry 99 Intake & Output 06/25/18 06/26/18 06/26/18 18:59 06:59 18:59 Intake Total 100 / 100 1900 / 1900 Output Total 1050 / 1050 2150 / 2150 Balance -950 / -950 -250 / -250 Weight 78.5 kg Intake: IV 100 / 100 1900 / 1900 Precedex Inj 200 MCG In NS Inj 50 / 50 48 ML @ 0.2 MCG/KG/HR 3.6 mls/ hr IV.CONT TITRATE PRN Rx#: [id number] Heparin/D5W 25,000 U/250 mL 25, 250 / 250 000 unit In 250 ml @ 900 UNITS/ HR 9 mls/hr IV.CONT TITRATE PRN Rx#:[id number] Diprivan 1000 mg/100 ml Inj 1, 100 / 100 300 / 300 000 mg In 100 ml @ 5 MCG/KG/MIN 2.1 mls/hr IV.CONT TITRATE PRN Rx#:[id number] Maxipime Inj 2,000 MG In NS Inj 200 / 200 100 ML @ 200 mls/hr IV.SIG Q12H MONICA Rx#:[id number] Zyvox 600 mg Premix 300 ML @ 600 / 600 300 mls/hr IV.SIG Q12H MONICA Rx#: [id number] fentaNYL 10 mcg/mL Premix Drip 500 / 500 2,500 mcg In 250 ml @ 50 MCG/HR 5 mls/hr IV.SIG TITRATE PRN Rx #:[id number] Output: Urine Amount (Catheter) 1050 / 1050 2150 / 2150 Indwelling Urethral Catheter 1050 / 1050 2150 / 2150 Other: # Bowel Movements 0 Physical Exam: CONSTITUTIONAL/GENERAL: adequately nourished, in NAD SKIN: No jaundice, rashes, or lesions. No wounds seen anteriorly. Skin temperature appropriate. Not diaphoretic. HEAD: Atraumatic. Normocephalic. EYES: Pupils constricted. No scleral icterus. No injection or drainage. Fundi not examined. ENT: Nose without bleeding or purulent drainage. CARDIOVASCULAR: RRR without murmurs, gallops, or rubs. paced rhythm, frequent PVCs RESPIRATORY/CHEST: Symmetric, unlabored respirations. CTA GASTROINTESTINAL: Abdomen soft, nondistended. No hepato-splenomegaly, or palpable masses. No guarding. Bowel sounds present. GENITOURINARY: Without palpable bladder distension. Nevarez catheter in place. MUSCULOSKELETAL: Extremities without clubbing, cyanosis, or edema. No mottling or clubbing. dressing bilat 1st toes; right toe dressing with scant red blood NEUROLOGICAL: sedated on vent. much calmer today PSYCHIATRIC: unable to assess, pt sedated on vent Diagnostic Tests Laboratory: Laboratory Results - last 72 hr 06/23/18 06/23/18 06/23/18 11:50 14:23 18:14 WBC RBC Hgb Hct MCV MCH MCHC RDW Plt Count MPV Prelim Diff (Auto) Neut % (Auto) Lymph % (Auto) Foard % (Auto) Eos % (Auto) Baso % (Auto) Neut # (Auto) Lymph # (Auto) Foard # (Auto) Eos # (Auto) Baso # (Auto) WBC Differential Diff Scan Differential Comment Platelet Estimate Platelet Morphology PT INR APTT 27.1 D Sodium Potassium Chloride Carbon Dioxide Anion Gap BUN Creatinine Estimated GFR POC Glucose 266 H Random Glucose Calcium Phosphorus Magnesium Total Creatine Kinase CK-MB (CK-2) CK-MB (CK-2) % Troponin I B-Natriuretic Peptide Vitamin B12 Hep-Induced Plt Ab Rachel Negative HIPA Patient OD 0.260 06/23/18 06/23/18 06/23/18 20:50 20:50 23:26 WBC RBC Hgb Hct MCV MCH MCHC RDW Plt Count MPV Prelim Diff (Auto) Neut % (Auto) Lymph % (Auto) Foard % (Auto) Eos % (Auto) Baso % (Auto) Neut # (Auto) Lymph # (Auto) Foard # (Auto) Eos # (Auto) Baso # (Auto) WBC Differential Diff Scan Differential Comment Platelet Estimate Platelet Morphology PT INR APTT Sodium 140 Potassium 3.9 Chloride 108 H Carbon Dioxide 21.8 Anion Gap 10 BUN 24 H Creatinine 1.29 Estimated GFR 55 L POC Glucose 281 H Random Glucose 272 H D Calcium 8.5 Phosphorus 2.9 Magnesium 1.7 Total Creatine Kinase 329 H CK-MB (CK-2) 3.6 CK-MB (CK-2) % 1.1 Troponin I 2.28 H* B-Natriuretic Peptide Vitamin B12 Hep-Induced Plt Ab Rachel HIPA Patient OD 06/24/18 06/24/18 06/24/18 05:48 06:06 11:21 WBC 4.8 RBC 3.62 L Hgb 11.3 L Hct 33.6 L MCV 92.8 MCH 31.1 MCHC 33.5 RDW 16.9 Plt Count 66 L MPV 10.6 Prelim Diff (Auto) Slide review pending Neut % (Auto) 85.5 H Lymph % (Auto) 7.9 L Foard % (Auto) 6.5 Eos % (Auto) 0.0 Baso % (Auto) 0.1 Neut # (Auto) 4.1 Lymph # (Auto) 0.4 L Foard # (Auto) 0.3 Eos # (Auto) 0.0 Baso # (Auto) 0.0 WBC Differential . Diff Scan Auto diff confirmed Differential Comment . Platelet Estimate Low L Platelet Morphology Normal PT INR APTT Sodium Potassium Chloride Carbon Dioxide Anion Gap BUN Creatinine Estimated GFR POC Glucose 285 H Random Glucose Calcium Phosphorus Magnesium Total Creatine Kinase CK-MB (CK-2) CK-MB (CK-2) % Troponin I B-Natriuretic Peptide Vitamin B12 510 Hep-Induced Plt Ab Rachel HIPA Patient OD 06/24/18 06/24/18 06/24/18 11:21 11:40 17:50 WBC RBC Hgb Hct MCV MCH MCHC RDW Plt Count MPV Prelim Diff (Auto) Neut % (Auto) Lymph % (Auto) Foard % (Auto) Eos % (Auto) Baso % (Auto) Neut # (Auto) Lymph # (Auto) Foard # (Auto) Eos # (Auto) Baso # (Auto) WBC Differential Diff Scan Differential Comment Platelet Estimate Platelet Morphology PT INR APTT Sodium Potassium Chloride Carbon Dioxide Anion Gap BUN Creatinine Estimated GFR POC Glucose 241 H 285 H Random Glucose Calcium Phosphorus Magnesium Total Creatine Kinase CK-MB (CK-2) CK-MB (CK-2) % Troponin I 1.64 H* B-Natriuretic Peptide Vitamin B12 Hep-Induced Plt Ab Rachel HIPA Patient OD 06/24/18 06/24/18 06/25/18 18:05 23:42 03:23 WBC 6.5 RBC 3.40 L Hgb 10.6 L Hct 31.7 L MCV 93.5 MCH 31.1 MCHC 33.3 RDW 16.9 Plt Count 72 L MPV 11.7 H Prelim Diff (Auto) Slide review pending Neut % (Auto) 87.7 H Lymph % (Auto) 6.4 L Foard % (Auto) 5.6 Eos % (Auto) 0.0 Baso % (Auto) 0.3 Neut # (Auto) 5.7 Lymph # (Auto) 0.4 L Foard # (Auto) 0.4 Eos # (Auto) 0.0 Baso # (Auto) 0.0 WBC Differential . Diff Scan Auto diff confirmed Differential Comment . Platelet Estimate Low L Platelet Morphology Enlarged H PT 11.9 H INR 1.2 APTT 22.9 L Sodium Potassium Chloride Carbon Dioxide Anion Gap BUN Creatinine Estimated GFR POC Glucose 265 H Random Glucose Calcium Phosphorus Magnesium Total Creatine Kinase CK-MB (CK-2) CK-MB (CK-2) % Troponin I B-Natriuretic Peptide Vitamin B12 Hep-Induced Plt Ab Rachel HIPA Patient OD 06/25/18 06/25/18 06/25/18 03:23 03:23 03:23 WBC RBC Hgb Hct MCV MCH MCHC RDW Plt Count MPV Prelim Diff (Auto) Neut % (Auto) Lymph % (Auto) Foard % (Auto) Eos % (Auto) Baso % (Auto) Neut # (Auto) Lymph # (Auto) Foard # (Auto) Eos # (Auto) Baso # (Auto) WBC Differential Diff Scan Differential Comment Platelet Estimate Platelet Morphology PT INR APTT 27.3 Sodium 141 Potassium 3.3 L Chloride 106 Carbon Dioxide 23.1 Anion Gap 12 BUN 30 H Creatinine 1.38 H Estimated GFR 51 L POC Glucose Random Glucose 176 H Calcium 8.2 L Phosphorus Magnesium Total Creatine Kinase CK-MB (CK-2) CK-MB (CK-2) % Troponin I 1.79 H* B-Natriuretic Peptide 1022 H Vitamin B12 Hep-Induced Plt Ab Rachel HIPA Patient OD 06/25/18 06/25/18 06/25/18 05:40 13:21 18:07 WBC RBC Hgb Hct MCV MCH MCHC RDW Plt Count MPV Prelim Diff (Auto) Neut % (Auto) Lymph % (Auto) Foard % (Auto) Eos % (Auto) Baso % (Auto) Neut # (Auto) Lymph # (Auto) Foard # (Auto) Eos # (Auto) Baso # (Auto) WBC Differential Diff Scan Differential Comment Platelet Estimate Platelet Morphology PT INR APTT 39.7 H D Sodium Potassium Chloride Carbon Dioxide Anion Gap BUN Creatinine Estimated GFR POC Glucose 159 H 294 H Random Glucose Calcium Phosphorus Magnesium Total Creatine Kinase CK-MB (CK-2) CK-MB (CK-2) % Troponin I B-Natriuretic Peptide Vitamin B12 Hep-Induced Plt Ab Rachel HIPA Patient OD 06/25/18 06/25/18 06/26/18 20:19 23:17 04:10 WBC 4.5 RBC 3.48 L Hgb 10.8 L Hct 31.7 L MCV 91.2 MCH 31.0 MCHC 34.0 RDW 16.5 Plt Count 60 L MPV 10.6 Prelim Diff (Auto) Slide review pending Neut % (Auto) 87.2 H Lymph % (Auto) 7.1 L Foard % (Auto) 5.4 Eos % (Auto) 0.1 Baso % (Auto) 0.2 Neut # (Auto) 3.9 Lymph # (Auto) 0.3 L Foard # (Auto) 0.2 Eos # (Auto) 0.0 Baso # (Auto) 0.0 WBC Differential . Diff Scan Auto diff confirmed Differential Comment . Platelet Estimate Low L Platelet Morphology Normal PT INR APTT 34.6 H Sodium Potassium Chloride Carbon Dioxide Anion Gap BUN Creatinine Estimated GFR POC Glucose 229 H Random Glucose Calcium Phosphorus Magnesium Total Creatine Kinase CK-MB (CK-2) CK-MB (CK-2) % Troponin I B-Natriuretic Peptide Vitamin B12 Hep-Induced Plt Ab Rachel HIPA Patient OD 06/26/18 06/26/18 04:10 05:06 WBC RBC Hgb Hct MCV MCH MCHC RDW Plt Count MPV Prelim Diff (Auto) Neut % (Auto) Lymph % (Auto) Foard % (Auto) Eos % (Auto) Baso % (Auto) Neut # (Auto) Lymph # (Auto) Foard # (Auto) Eos # (Auto) Baso # (Auto) WBC Differential Diff Scan Differential Comment Platelet Estimate Platelet Morphology PT INR APTT 43.4 H D Sodium Potassium Chloride Carbon Dioxide Anion Gap BUN Creatinine Estimated GFR POC Glucose 189 H Random Glucose Calcium Phosphorus Magnesium Total Creatine Kinase CK-MB (CK-2) CK-MB (CK-2) % Troponin I B-Natriuretic Peptide Vitamin B12 Hep-Induced Plt Ab Rachel HIPA Patient OD Result Diagrams: 06/26/18 04:10 06/25/18 03:23 Microbiology: Microbiology 08/11/18 14:31 Aerobic Blood Culture - Preliminary Blood - Peripheral No growth in 3 days Anaerobic Blood Culture - Preliminary No growth in 3 days 06/23/18 11:50 Aerobic Blood Culture - Preliminary Blood - Peripheral No growth in 3 days Anaerobic Blood Culture - Preliminary No growth in 3 days 06/20/18 20:50 Aerobic Blood Culture - Final Blood - Peripheral No growth in 5 days Anaerobic Blood Culture - Final No growth in 5 days 06/21/18 02:10 Gram Stain - Final Sputum - Endotracheal Sputum Culture - Final Staphylococcus aureus Imaging: ITS Impressions Abdomen/Bladder Ultrasound 06/21/18 00:00 CONCLUSION: 1. Increased echogenicity of both kidneys typical of chronic parenchymal disease. 2. No evidence of acute obstructive uropathy. 3. Bilateral benign appearing renal cysts. Head CT 06/21/18 00:00 CONCLUSION: 1. Aging brain with mild volume loss. 2. No evidence of acute infarct, hemorrhage, mass or edema. . Chest X-Ray 06/23/18 00:00 CONCLUSION: Improving bilateral perihilar pulmonary edema. Procedures: 06/23 reintubated Assessment and Plan - Disease Oriented Problem List (1) Respiratory failure (2) Non-ST elevated myocardial infarction (non-STEMI) (3) Cardiomyopathy (4) PVD (peripheral vascular disease) (5) Tobacco abuse Pertinent Non-Medical Issues: Psychosocial: Pt originally from [place]. with 4 kids. 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 Spiritual: evangelical. decline linter tender visit. Legal: Per [place] statute is proxy decision maker. Ethical issues impacting care: none Important Contacts: Kristine Avila, - [phone] Prognosis: This is a 72-year-old male with history CHF, COPD, tobacco abuse, diabetes who presented 06/20 [place] has a defibrillator implanted. His baseline ejection fraction is 25% and he is now at less than 20%. Per cardiology likely N STEMI. Patient reintubated 06/23. He is at high risk for continued complications and decline. Code Status: Full Code Plan: - LEGAL DECISON MAKER -patient is incapacitated to make medical decisions. Per [place] statutes his proxy decision maker - CODE STATUS-full code - GOALS - Goals are aggressive, but does appear is beginning to process severity of pt's illness. proceeding with cath procedure, seems to have reasonable insight about risks and prognosis. Verbalizes pt would not want to be kept alive on machines if there was no hope of recovery or cure. "if there's a problem he'd want it fixed but he would never want to be like this if there was no hope...for him living was taking care of the house and the yard and traveling and seeing family." - SYMPTOMS - * pain - risk for pain, multifactorial. chest pain prior to admission. had been having frequent muscle cramps and spasms. has injury bilat 1st toes from hitting bed rail while agitated yesterday. on fentanyl gtt 25ml/hr * dyspnea -reintubated 06/23. Recent N STEMI. EF < 20%. In the past month has been having increasing activity intolerance. Going for cardiac cath this afternoon. HR appears to be completely paced, frequent PVCs on monitor. CV surgery consulted, not candidate at this time. scheduled DuoNeb's * agitation - multlifactorial. per RN seems to have been more agitated with episodes bradycardia. much calmer today. 5.4ml/hr precedex, 25ml/hr fentanyl, 21 ml/hr propofol. sedation per CCM - d/w RN Andre - Palliative care will continue to follow during hospital course as condition evolves, to assist patient/decision-maker with understanding of medical conditions, weighing benefits/burdens of treatment options, for clarification of goals of treatment. Additionally will assist with any symptoms of palliative concern Attestation Attestation: To help prompt me to consider important information that might be impacting today's encounter and assessment, information from prior notes written by myself or my colleagues may have been "brought forward" into today's note. My signature on this note, however, is an attestation that I personally performed the exam, history, and/or decision-making noted today, and, unless otherwise indicated, the interactions with patient, family, and staff as well as the review of records all occurred today. I also attest that the listed assessment and stated plan reflect my best clinical judgment today based on the combination of historical information, prior notes, and today's exam/ interactions. When time spent is documented, it refers only to time spent today by the signer, or if indicated, combined time spent today by collaborating physician/nurse practitioner.
--- NOTE | 2018-06-26 14:39 | CATHPROC ---
[facility] HIS Report Study Information Study Number Scheduled Start Study Start [id number] 06/26/2018 Jun 26 2018 1:25PM Referring Institution Admit Source Facility Department 1 Emergency department [facility] - Orthodontic Laboratory Technician Physician and Clinical Staff Initial Nasir Kang Ends Breakage ClerkKristine Carmichael,Petty Khan,MACARIO Recorder Carmen Martin,RT(R) ScrErin GonzalezRT(R) (BS) Procedures Performed Procedure Location (Site) Vessel Name Coronary Angiograms LCA Left Coronary Coronary Angiograms RCA Right Coronary LV Gram-hand inj. LV LV Ventricle Equipment Time Green End Man Description Size Mfg Part Number Used/Scraped CATHETER, FR5 SWAN CITLALY 13:52 [employer] FR 5 [id number] *[id number] Used MONITOR TRANSDUCER, TRUWAVE [id number] 13:52 FLORES AMADOR * Used W/STOCKCOCK *[id number] [id number] *[id number] 538-422 *[id number] [id number] *[id number] 13:52 yoonew BLANKET,WARM AIR CCL * Used *[id number] 13:52 yoonew PACK, CCL CUSTOM * Used *[id number] 13:52 [employer] PACER PEN, SKIN DUAL W/ RULER * Used *[id number] 13:52 [employer] MEDICAL SHEATH, FR5.5 PRELUDE 11CM FR 5.5 Used 038ACT# [id number] 13:52 [employer] MEDICAL WIRE, 3MMJ .035 180CM 180CM Used *[id number] 13:52 NAMIC MANIFOLD, 4 PORT * Used *[id number] 13:52 NYCOMED OMNIPAQUE, 350 MG, 150ML 150ML [id number] Used [id number] 13:52 TERUMO MEDICAL SHEATH, FR4 TERUMO (10CM) FR 4 Used *[id number] History: Current Medications Medication Dosage/Unit Route Frequency Last Date/Time Taken ASA LASIX Glucophage Beta Chase Statins (any) History: Allergies Allergy Reaction No Known Allergies hydromorphone Nausea/Vomiting bee venom protein (honey bee) Difficulty Breathing pregabalin Anaphylaxis History: Risk Factors Family History of Hypertension Dyslipidemia Previous PA Previous Heart Failure Premature CAD Yes Yes No Yes Yes Prior Valve Prior PCI Prior CABG Surgery No No No Cerebrovascular Peripheral Artery Chronic Lung On Dialysis Diabetes Diabetes Therapy Disease Disease Disease No No Yes Yes Yes Oral Labs Hgb (g/dl) Hct (%) WBC (l/cumm) Platelets (thousands) 11.60-17.00 35.00-51.00 4.00-11.00 150.00-450.00 10.8 31.7 4.5 60 Glucose (mg/dl) BUN (mg/dl) Creatinine (mg/dl) BUN:Creatinine (1:x) 74.00-106.00 7.00-18.00 0.50-1.30 10.00-20.00 176 30 1.3 23.1 Na (meq/l) K (meq/l) 136.00-145.00 3.50-5.10 141 3.3 INR (PTT:PT) 0.90-1.10 1.2 Troponin I (ng/ml) CPK (u/l) CPK-MB (ng/ML) 0.02-0.05 26.00-308.00 0.50-3.60 1.79 329 3.6 Medication Medication Total Dose (Bolus/Oral) Medication Total Dosage/Unit 1% XYLOCAINE 20 mL FENTANYL 250 mcg/hr PROPOFOL 50 mcg/kg/min Medications (Bolus/Oral) Medication Time Given Dosage/Unit Administered By Reason FENTANYL 06/26/2018 1:29:30 PM 250 mcg/hr Patient arrived on 250 mcg/hr FENTANYL in Right Antecubital via Peripheral IV. Pump/Drip Flow = 0 ml/ hr using D5W. PROPOFOL 06/26/2018 1:29:34 PM 50 mcg/kg/min Patient arrived on 50 mcg/kg/min PROPOFOL in Right Antecubital via Peripheral IV. Pump/Drip Flow = 0 ml/hr using D5W. 1% XYLOCAINE 06/26/2018 2:09:53 PM 20 mL Nasir Noonan 20 mL 1% XYLOCAINE given in lab by Nasir Noonan in Right Groin via Subcutaneous. Medication (Drip) Medication Time Given Dosage/Unit Concentration/Unit Diluent (ml) Solution HEPARIN DRIP STOPPED 06/26/2018 1:15:00 PM 1100 units/hr 0 D5W 1100 units/hr HEPARIN DRIP STOPPED given in lab by Petty Dewey RN in Right Antecubital via Perip heral IV. Pump/Drip Flow = 0 ml/hr using D5W. IV Solutions 06/26/2018 1:29:35 PM 50 mL (IV) NaCl .9 IV Solutions given in lab by Kristine Augustin RN in Left Forearm via Peripheral IV. Pump/Drip Flow us ing NaCl .9. Initial Case Assessment Cardiovascular Rhythm paced 60 bpm Edema Present Skin Moderate Warm Dry Circulatory - Right Pulses Dorsalis Pedis Femoral 1 2 Scale (0,1,2,3,4,d) Circulatory - Left Pulses Dorsalis Pedis Femoral 1 2 Scale (0,1,2,3,4,d) Respiration - Ventilator Type Intubation Type Alarm Setting ET(oral) On Respiration - Ventilator Settings TV (ml) IMV (L) FIO2 (%) PEEP (cm/H2O) 600 16 100 5 Chronological Log Time Study Chronological Log 1100 units/hr HEPARIN DRIP STOPPED given in lab by Petty Dewey RN in Right Antecubital via Peripheral IV. 13:15:00 Pump/Drip Flow = 0 ml/hr using D5W. 13:28:30 Patient arrived via Bed. 13:29:11 Patient Name, D.O.B, / Armband Verified By R.N. 13:29:11 Consent signed by the physician and the patient and verified by the Orthodontic Laboratory Technician staff. 13:29:22 Patient has been NPO for More than 6Hrs. 13:29:23 Skin Breakdown- bruising all 4 extememities. edema. 13:29:24 Patient Warmer Placed on the Table. 13:29:25 Tiffanie Prominences Protected 13:29:26 A # 18 IV was noted in the Antecubital (right). Grade = 0 13:29:29 A # 18 IV was noted in the Forearm (right). Grade = 0 13:29:30 A # 20 IV was noted in the Forearm (left). Grade = 0 13:29:30 Patient arrived on 250 mcg/hr FENTANYL in Right Antecubital via Peripheral IV. Pump/Drip Fl ow = 0 ml/hr using D5W. Patient arrived on 50 mcg/kg/min PROPOFOL in Right Antecubital via Peripheral IV. Pump/Drip Allan w = 0 ml/hr using 13:29:34 D5W. 13:29:35 IV Solutions given in lab by Kristine Augustin, RN in Left Forearm via Peripheral IV. Pump/Dr ip Flow using NaCl .9. 13:29:35 History and physical on the chart or being dictated. 13:29:36 Patient arrived on 5.6 ml/hr DEXMEDETOMIDINE in Right Antecubital via Peripheral IV. Assessment: Initial Case, Rhythm=paced 60 bpm, Edema=Mod, Skin = Warm, Dry Right Pulses: Pérez Ped=1, Femoral=2 13:29:38 Left Pulses: Pérez Ped=1, Femoral=2 Respiration: Type=ET(Oral), Alarm=On, IQ=875 mL, IMV=16 L, UJO1=398 %, PEEP=5 cm/H2O Vitals capture started with the following parameters, Patient=Adult, Interval=5 min, Initial Pr cislhn=140 mmHg, 13:41:05 Deflation Rate=5 mmHg, Cuff placed on Left Arm 13:41:47 HR=57 bpm, MFSV=321/61 mmhg, SpO2=99.0 % 13:45:29 Bilateral groins prepped with 2% chlorhexidine, and draped after a 3 minute waiting time. 13:46:17 Reference ECG taken 13:46:38 HR=54 bpm, TCTJ=719/71 mmhg, SpO2=99.0 % 13:50:19 MD paged 13:51:39 HR=42 bpm, RELT=983/65 mmhg, SpO2=99.0 % 13:52:31 MD responded 13:56:42 HR=28 bpm, KKCW=723/62 mmhg, SpO2=99.0 % 13:56:43 Pressure channel 1 zeroed. 14:01:43 HR=25 bpm, VDWU=530/63 mmhg, SpO2=99.0 % 14:04:16 MD arrived. 14:04:45 Reference ECG taken Time Out. Correct patient, correct procedure, correct physician, labs, allergies, and equipment verified with chemistry laboratory technician 14:06:06 team present. Fire risk assesment completed (see hard stop sheet for coding). Time Out Conc urred by MD and individual staff in procedure. 14:06:42 HR=41 bpm, QOWO=984/66 mmhg, SpO2=99.0 % 14:09:52 Case Start 14:09:53 20 mL 1% XYLOCAINE given in lab by Nasir Noonan in Right Groin via Subcutaneous. 14:11:06 Access site was Right Femoral Vein. 14:11:16 A SHEATH, FR5.5 PRELUDE 11CM FR 5.5 was advanced into the Fem Vein (right) using the Percut aneous technique. 14:11:43 HR=48 bpm, JGAU=628/66 mmhg, SpO2=99.0 % 14:16:01 Access site was Right Femoral Artery. 14:16:06 A SHEATH, FR4 TERUMO (10CM) FR 4 was advanced into the Fem Art (right) using the Percutaneo us technique. 14:16:44 HR=27 bpm, INXM=001/64 mmhg, SpO2=99.0 % 14:16:56 Activated Clotting Time Drawn 14:17:29 Saturation: Site=Ao (Aorta) , O2=97.7 %, Hgb=10.8 gm/dl, Condition=Condition 1. Used in maxwell culation. 14:18:02 A CATHETER, FR5 SWAN CITLALY MONITOR FR 5 was inserted via Fem Vein (right) Recorded Pressure: PCW, HR=32, Condition=Condition 1 14:18:56 (Pulmonary Capillary Wedge) PCW Recorded Pressure: MPA, HR=52, Condition=Condition 1 14:19:09 (Main Pulmonary Artery) MPA 05/10/17 14:19:17 Saturation: Site=PA (Pulmonary Artery) , O2=74.4 %, Hgb=10.8 gm/dl, Condition=Condition 1. Used in calculation. Recorded Pressure: RV, HR=40, Condition=Condition 1 14:20:01 (Right Ventricle) RV 32 Recorded Pressure: RA, HR=43, Condition=Condition 1 14:20:12 (Right Atrium) RA 14:20:22 ACT (Normal Range 90-180) = 155 14:20:37 Saturation: Site=RA (Right Atrium) , O2=74.5 %, Hgb=10.8 gm/dl, Condition=Condition 1. Used in calculation. 14:21:00 [place] Cit[employer]aly Catheter Removed A JR 4.0 INFINITI CATHETER FR 4 was advanced over a wire. OMNIPAQUE, 350 MG, 150ML 150ML was u sed for 14:21:04 injections. 14:21:43 HR=43 bpm, WPZF=429/60 mmhg, SpO2=99.0 % Recorded Pressure: LV, HR=56, Condition=Condition 1 14:22:00 (Left Ventricle) LV 109/4/15 14:22:12 The LV was manually injected with 10 cc's and visualized. OMNIPAQUE, 350 MG, 150ML 150ML u sed. Recorded Pressure: LV, Ao, HR=59, Condition=Condition 1 14:22:19 (Left Ventricle) LV 117/-27/14, (Aorta) Ao 134/46/81 Recorded Pressure: Ao, HR=36, Condition=Condition 1 14:22:50 (Aorta) Ao 119/52/79 14:23:07 The RCA was injected and visualized at various angles. OMNIPAQUE, 350 MG, 150ML 150ML use d. After removing the current catheter a JL 4.0 INFINITI CATHETER FR 4 was advanced over a WIRE, 3MMJ .035 180CM 14:23:29 180CM. After removing the current catheter a JL 5.0 INFINITI CATHETER FR 4 was advanced over a WIRE, 3MMJ .035 180CM 14:26:16 180CM. 14:27:00 The LCA was injected and visualized at various angles. OMNIPAQUE, 350 MG, 150ML 150ML use d. 14:27:21 HR=50 bpm, MEXS=898/70 mmhg, SpO2=99.0 % 14:27:36 Catheter was removed 14:27:39 Case End (Physician broke scrub) 14:31:41 Vitals capture stopped. 14:34:41 Sheath(s) left in place, will be removed in pt's room 14:34:54 Sterile dressing applied to site 14:34:56 No case complications noted. 14:34:57 Cine recording checked. 14:35:27 Report called to floor. 14:35:30 Bedside Report will be given. 14:36:55 A Left and Right Heart Cath was performed. 14:37:50 Patient moved to bed End Study - Contrast Media Used In Study Contrast Total Opened (mL) Total Used (mL) Total Wasted (mL) Omnipaque 150 15 135 End Study - Maximum Contrast Load Max Contrast Load (mL) 301.9 End Study - Radiation Exposure Fluoro Time (minutes) 2.2 End Study - Patient Disposition Complications Transferred To No Critical Care Bed
--- NOTE | 2018-06-26 14:50 | P.PNCC ---
Subjective Subjective Remarks/Hospital Course: Elderly male with a medical history significant for viral cardiomyopathy who was traveling on vacation from [place] with his family in [place] and today developed chest pain with worsening shortness of breath for which EMS was called by family. Patient was extremely short of breath on the arrival and hypoxic and they proceeded with endotracheal intubation and patient was transferred to the ER. In the ER it was noted that his cuff was leaking hence ET tube was exchanged by ER physician and patient was placed on mechanical ventilation. Per his family he has a defibrillator and is followed by his social work coordinator in [place] whom he saw in December of this year. He reportedly does not take any diuretic. Chest x-ray done in the ER revealed pulmonary edema. EKG revealed atrial fibrillation. Patient was accepted for admission by critical care medicine service. When I evaluated him in the ER he was sedated with propofol, orally intubated on mechanical ventilation. History was obtained by reviewing records, discussion with family as well as ER physician. Subjective 06/21: Afebrile. Hemodynamically stable. Troponin bumped 14. Started on heparin drip. Sedated with propofol and fentanyl drips. Arousable the ventilator and is very agitated will attempt to withdrawal tube. PEEP down to 5. 06/22: Sedated, orally intubated on mechanical ventilation. Gets agitated unenlightening sedation so Precedex added in addition to propofol and fentanyl. CPAP trials ongoing to decide extubation. Cardiac cath postponed by Dr. Noonan in view of questionable neurologic status. 06/23: Patient was extubated yesterday however was requiring significant amount of O2 post extubation with a facemask as well as nasal cannula. This morning around 4 AM due to increased work of breathing and hypoxia he was reintubated by Dr. Lino and placed back on mechanical ventilation. Currently he is sedated , orally intubated on mechanical ventilation. Postintubation chest x-ray shows ET tube in appropriate position and pulmonary edema pattern with perihilar infiltrates bilaterally. 06/24: Remains sedated, orally intubated on mechanical ventilation. 06/25: Remains sedated, orally intubated on mechanical ventilation. 06/26: Remains sedated, orally intubated on mechanical ventilation. Pacer backup rate increased to 60/min yesterday due to hypotension. Awaiting cardiac catheterization. Objective Vital Signs / I&O: Vital Signs 06/25/18 14:50 06/25/18 15:00 06/25/18 15:10 Temperature Pulse Rate 40 L 43 L 59 L Respiratory Rate 16 17 16 Blood Pressure 114/55 L 120/56 L 110/53 L Pulse Oximetry 98 98 98 06/25/18 15:20 06/25/18 15:25 06/25/18 15:30 Temperature Pulse Rate 60 60 60 Respiratory Rate 16 16 16 Blood Pressure 139/65 127/60 128/57 L Pulse Oximetry 99 98 98 06/25/18 15:35 06/25/18 15:40 06/25/18 15:41 Temperature Pulse Rate 60 60 Respiratory Rate 16 16 16 Blood Pressure 129/57 L 132/62 Pulse Oximetry 98 98 98 06/25/18 15:51 06/25/18 15:55 06/25/18 16:00 Temperature Pulse Rate 72 62 60 Respiratory Rate 20 16 16 Blood Pressure 116/67 124/67 120/60 Pulse Oximetry 100 100 99 06/25/18 16:15 06/25/18 16:30 06/25/18 16:45 Temperature Pulse Rate 60 60 60 Respiratory Rate 16 16 16 Blood Pressure 116/58 L 126/56 L 122/58 L Pulse Oximetry 99 100 100 06/25/18 17:00 06/25/18 17:15 06/25/18 17:30 Temperature Pulse Rate 60 60 60 Respiratory Rate 16 16 16 Blood Pressure 129/58 L 133/60 132/61 Pulse Oximetry 99 99 99 06/25/18 17:45 06/25/18 18:00 06/25/18 18:15 Temperature Pulse Rate 60 60 60 Respiratory Rate 16 16 16 Blood Pressure 135/61 135/63 136/63 Pulse Oximetry 99 99 98 06/25/18 18:30 06/25/18 18:45 06/25/18 19:00 Temperature Pulse Rate 60 60 60 Respiratory Rate 16 16 16 Blood Pressure 136/63 136/63 138/64 Pulse Oximetry 98 98 97 06/25/18 19:15 06/25/18 20:00 06/25/18 20:51 Temperature 98.7 F Pulse Rate 60 60 Respiratory Rate 16 16 16 Blood Pressure 136/63 126/59 L Pulse Oximetry 97 98 06/25/18 21:30 06/25/18 22:00 06/25/18 22:59 Temperature Pulse Rate 60 Respiratory Rate 16 16 Blood Pressure Pulse Oximetry 100 06/26/18 00:00 06/26/18 02:00 06/26/18 03:23 Temperature 97.6 F Pulse Rate 60 60 Respiratory Rate 16 17 Blood Pressure 131/63 Pulse Oximetry 98 06/26/18 04:00 06/26/18 05:50 06/26/18 06:00 Temperature 98.4 F Pulse Rate 60 60 Respiratory Rate 16 16 Blood Pressure 129/62 Pulse Oximetry 06/26/18 08:08 06/26/18 11:41 Temperature Pulse Rate Respiratory Rate 16 16 Blood Pressure Pulse Oximetry 99 99 Intake & Output 06/25/18 06/26/18 06/26/18 18:59 06:59 18:59 Intake Total 100 / 100 1900 / 1900 Output Total 1050 / 1050 2150 / 2150 Balance -950 / -950 -250 / -250 Weight 78.5 kg Intake: IV 100 / 100 1900 / 1900 Precedex Inj 200 MCG In NS Inj 50 / 50 48 ML @ 0.2 MCG/KG/HR 3.6 mls/ hr IV.CONT TITRATE PRN Rx#: [id number] Heparin/D5W 25,000 U/250 mL 25, 250 / 250 000 unit In 250 ml @ 900 UNITS/ HR 9 mls/hr IV.CONT TITRATE PRN Rx#:[id number] Diprivan 1000 mg/100 ml Inj 1, 100 / 100 300 / 300 000 mg In 100 ml @ 5 MCG/KG/MIN 2.1 mls/hr IV.CONT TITRATE PRN Rx#:[id number] Maxipime Inj 2,000 MG In NS Inj 200 / 200 100 ML @ 200 mls/hr IV.SIG Q12H MONICA Rx#:[id number] Zyvox 600 mg Premix 300 ML @ 600 / 600 300 mls/hr IV.SIG Q12H MONICA Rx#: [id number] fentaNYL 10 mcg/mL Premix Drip 500 / 500 2,500 mcg In 250 ml @ 50 MCG/HR 5 mls/hr IV.SIG TITRATE PRN Rx #:[id number] Output: Urine Amount (Catheter) 1050 / 1050 2150 / 2150 Indwelling Urethral Catheter 1050 / 1050 2150 / 2150 Other: # Bowel Movements 0 Result Diagrams: 06/26/18 04:10 06/25/18 03:23 Objective Remarks: GENERAL: 72 yoM orotracheally intubated SKIN: Warm and dry. Chronic venous stasis bilateral lower extremities HEAD: Atraumatic. Normocephalic. EYES: Pupils equal and round. No scleral icterus. No injection or drainage. ENT: No nasal bleeding or discharge. Mucous membranes pink and moist. NECK: Trachea midline. No JVD. CARDIOVASCULAR: Regular rate and rhythm. S1, S2 predose for without murmur RESPIRATORY: Essentially clear anteriorly. No wheezing GASTROINTESTINAL: Abdomen soft, non-tender, slightly protuberant. Hypoactive bowel sounds appreciated MUSCULOSKELETAL: Extremities with trace bilateral lower extremity edema. No obvious deformities. NEUROLOGICAL: Sedated, arousable but not following commands. Moves all 4 extremities spontaneously. 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 Acetaminophen 650 every 6 hours as needed fever. Follow neuro status. Holding gabapentin 300 mg 3 times daily and baclofen 10 mg 3 times daily/home medications. Continue brimonidine 0.15% 3 times daily. Cardiovascular: Non-ST elevation UT. cardiology consult requested in view of decompensated CHF, history of cardiomyopathy and positive troponin. Obtain medical records from patient's social work coordinator in [place]. currently A. fib appears to be rate controlled. Continue aspirin 162 mg daily. 81 mg at home started on low-dose beta-ana metoprolol tartrate 12.5 mg twice daily. No ENA inhibitor secondary to acute kidney injury.. Currently on heparin drip due to elevated troponin. Holding cilostazol 50 mg twice daily. Resume simvastatin 20 mg daily/40 mg pravastatin substituted. Cardiac cath per Dr. Noonan. Continue Lasix for diuresis - 20 mg IV twice daily Pulmonary: Continue mechanical ventilation, vent bundle, bronchodilators as needed. Peep +5. Diuresis held due to acute kidney injury. Albuterol/ ipratropium every 4 hours with albuterol aerosols every 2 hours as needed dyspnea. CPAP trials to decide extubation GI/liver: Hold tube feeds for possible extubation following CPAP trial today. Renal/: Strict intake output, monitor and replete electrolytes, follow BUN/ creatinine. Diuresis with Lasix ID: Watch for fever/leukocytosis. Cefepime 2 g IV every 12 hours(06/21). Influenza a and B-. Blood cultures, urine negative. Sputum cultures growing MSSA. Stopped Zyvox on 06/26 Heme: heparin GTT resumed on 06/[address] Campa. Thrombocytopenia noted. Dr. Campa following. HIT screen negative. Per my discussion with Dr. Campa, he is okay with using Plavix if needed or Aggrastat if platelet count remains over 50,000. Endocrine: Holding metformin thousand milligrams twice daily, sitagliptin 100 mg daily sliding scale insulin with aspart insulin high protocol for glycemic control. Started stress dose steroids with hydrocortisone 50 mill grams IV every 6 hourly on 06/23 due to borderline blood pressures and recent prednisone use. Prophylaxis: PPI/SCDs. Heparin GTT for full anticoagulation. Discussed with patient's in detail on 06/26 regarding plan of care and she voiced understanding. Condition critical Time spent on critical care excluding procedures 35 minutes.
--- NOTE | 2018-06-26 15:39 | MR ---
cc: Nasir Noonan MD DATE: 06/26/2018 PROCEDURE PERFORMED: Right heart catheterization, left heart catheterization, left ventriculography. INDICATION: Coronary artery disease, non-STEMI, dilated cardiomyopathy, respiratory failure, peripheral vascular disease, tobacco use, carotid stenosis, failure to wean from the vent. PROCEDURE: The patient was brought to the cardiac catheterization laboratory, prepped and draped in the usual sterile fashion. Then 10 mL of 1% lidocaine was used to locally anesthetize the right common femoral and right common femoral vein area. A 5-1/2 Indonesian sheath was placed around right common femoral vein, 4-Indonesian sheath placed in the right common femoral artery. A right heart catheterization was performed first with the following findings: FINDINGS: The pulmonary capillary wedge pressure 18/16-12, PA pressure 23/11-17, RV pressure 32/20-11, RA pressure 7/7-5. On 100% oxygen, intubated. The FA sat was 97.7%. PA sat 74.4%, RA sat 74.5%. Cardiac output by Mariana is 7.2 liters per minute. Cardiac index by Mariana 3.7 liters per m2 per minute. Left heart catheterization was then performed with a 4-Indonesian JR4 and JL5 catheter with the following findings: FINDINGS: LV pressure is 130/5-8 ejection fraction 20%. There is mild to moderate dilatation of the left ventricle fluoroscopically. Right coronary artery is dominant. There is a long 60% stenosis in the proximal segment. There is a 40% to 50% stenosis in the midsegment. Reference vessel diameter 3.5 mm in the proximal segment, 3 mm in the mid segment, 3.25 mm in the distal segment. Right PDA and TRUPTI have no significant disease angiographically. The left main coronary artery has no significant disease angiographically. The left circumflex vessel has no significant disease angiographically. There is a very small obtuse marginal vessel coming off the mid AV groove left circumflex. Reference vessel diameter 0.5 mm with an ostial bifurcation. There is a large ramus intermedius vessel, reference vessel diameter 3.5 mm. No significant obstructive disease. LAD is trans apical. No significant disease angiographically. First diagonal artery is small to medium size vessel, reference vessel diameter of 2.25 mm. Actually this diagonal artery has an ostial proximal 40% to 50% stenosis. CONCLUSION: 1. Angiographically mild to moderate 3-vessel coronary artery disease in the right dominant system as detailed above. 2. 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 3. Euvolemic by right heart catheterization, pressures as detailed above. 4. We will contact case management to seek out transfer for evaluation of risks and benefits of heart transplant. Otherwise, continue supportive care. His prognosis is poor as he appears to be deteriorating with a nonischemic cardiomyopathy. Weaning from the vent has been very difficult. Mental status is uncertain and he has moderate encephalopathy by EEG. Nasir Noonan MD AWC/ct , 02:35 PM , 02:47 PM
[2018-06-26] MEDS ORDERED: DOBUTAMINE IV.CONT SCH ×3 (18:00)
[2018-06-26] MEDS ORDERED: WATER IV.CONT SCH ×2 (18:00)
[2018-06-26] MEDS ORDERED: SODIUM CHLOR 0.9% IV.CONT SCH (18:00)
[2018-06-26] MEDS ORDERED: DEXTROSE 5% IV.CONT SCH ×2 (18:00)
[2018-06-26] MEDS: Potassium Chlor 20 mEq Premix 20 MEQ/100 ML PIGGYBACK IV.SIG PRN (22:50)
[2018-06-27] MEDS: Potassium Chlor 20 mEq Premix 20 MEQ/100 ML PIGGYBACK IV.SIG PRN (01:01)
[2018-06-27] MEDS: Propofol 1000 mg/100 ml Inj 1,000 MG/100 ML BOTTLE IV.CONT PRN (01:02)
[2018-06-27] MEDS: Insulin NovoLOG Aspart Correctional Sugar Inj SQ SCH ×4 (01:14→19:28)
[2018-06-27] MEDS: Dexmedetomidine Inj 200 MCG in Sodium Chlor 0.9% Inj 48 ML IV.CONT PRN (01:18)
[2018-06-27] MEDS: Hydrocortisone Sod Succinate 100 MG Vial IV.PUSH SCH (05:02)
[2018-06-27] MEDS: fentaNYL 10 mcg/mL Premix Drip 2,500 MCG/250 ML BAG IV.SIG PRN (05:04)
[2018-06-27] MEDS: Dexmedetomidine Inj 1,000 MCG in Sodium Chlor 0.9% Inj 240 ML IV.CONT PRN ×2 (05:43→15:00)
[2018-06-27 07:16] LABS: Baso % (Auto) 0.4 % (0.0-2.0); Hematocrit 37.8 % (39.0-51.0); Hemoglobin 12.6 gm/dL (13.0-17.0); Lymph # (Auto) 0.2 th/mm3 (1.0-4.8); Lymph % (Auto) 3.7 % (9.0-44.0); Mean Corpuscular HGB Conc 33.3 % (32.0-36.0); Mean Corpuscular Hemoglobin 30.8 pg (27.0-34.0); Mean Corpuscular Volume 92.3 fL (80.0-100.0); Mean Platelet Volume 11.2 fL (7.0-11.0); Mono # (Auto) 0.3 th/mm3 (0.0-0.9); Mono % (Auto) 6.6 % (0.0-8.0); Neut # (Auto) 4.2 th/mm3 (1.8-7.7); Neut % (Auto) 89.3 % (16.0-70.0); Platelet Count 81 th/mm3 (150-450); Red Blood Count 4.09 mil/mm3 (4.50-5.90); Red Cell Distribution Width 16.5 % (11.6-17.2); White Blood Count 4.7 th/mm3 (4.0-11.0)
[2018-06-27 07:48] LABS: Carbon Dioxide 22.9 meq/L (21.0-32.0); Potassium 3.2 meq/L (3.5-5.1)
[2018-06-27] MEDS: Hypromellose 0.3% Opth Gel 10 GM Bottle EACH EYE SCH ×2 (09:42→21:11)
[2018-06-27] MEDS: Brimonidine 0.15% Opth Drops 5 ML Bottle EACH EYE SCH ×3 (09:42→19:27)
[2018-06-27] MEDS: Metoprolol Tartrate 25 MG Tablet PO SCH ×2 (09:43→21:12)
--- NOTE | 2018-06-27 12:51 | P.PNCC ---
Subjective Subjective Remarks/Hospital Course: Elderly male with a medical history significant for viral cardiomyopathy who was traveling on vacation from [place] with his family in [place] and today developed chest pain with worsening shortness of breath for which EMS was called by family. Patient was extremely short of breath on the arrival and hypoxic and they proceeded with endotracheal intubation and patient was transferred to the ER. In the ER it was noted that his cuff was leaking hence ET tube was exchanged by ER physician and patient was placed on mechanical ventilation. Per his family he has a defibrillator and is followed by his marketing rotation associate in [place] whom he saw in December of this year. He reportedly does not take any diuretic. Chest x-ray done in the ER revealed pulmonary edema. EKG revealed atrial fibrillation. Patient was accepted for admission by critical care medicine service. When I evaluated him in the ER he was sedated with propofol, orally intubated on mechanical ventilation. History was obtained by reviewing records, discussion with family as well as ER physician. Subjective 06/21: Afebrile. Hemodynamically stable. Troponin bumped 14. Started on heparin drip. Sedated with propofol and fentanyl drips. Arousable the ventilator and is very agitated will attempt to withdrawal tube. PEEP down to 5. 06/22: Sedated, orally intubated on mechanical ventilation. Gets agitated unenlightening sedation so Precedex added in addition to propofol and fentanyl. CPAP trials ongoing to decide extubation. Cardiac cath postponed by Dr. Noonan in view of questionable neurologic status. 06/23: Patient was extubated yesterday however was requiring significant amount of O2 post extubation with a facemask as well as nasal cannula. This morning around 4 AM due to increased work of breathing and hypoxia he was reintubated by Dr. Lino and placed back on mechanical ventilation. Currently he is sedated , orally intubated on mechanical ventilation. Postintubation chest x-ray shows ET tube in appropriate position and pulmonary edema pattern with perihilar infiltrates bilaterally. 06/24: Remains sedated, orally intubated on mechanical ventilation. 06/25: Remains sedated, orally intubated on mechanical ventilation. 06/26: Remains sedated, orally intubated on mechanical ventilation. Pacer backup rate increased to 60/min yesterday due to hypotension. Awaiting cardiac catheterization. 06/27: Sedated, orally intubated on mechanical ventilation. Underwent cardiac catheterization which revealed nonobstructive CAD. Patient has nonischemic dilated cardiomyopathy per discussion with Dr. Noonan. Initiated dobutamine 2.5 mics per KG per minute on 06/26. Filling pressures not elevated per Dr. Noonan on cardiac cath. Objective Vital Signs / I&O: Vital Signs 06/26/18 14:00 06/26/18 14:55 06/26/18 14:56 Temperature Pulse Rate 60 60 60 Respiratory Rate 16 16 Blood Pressure 120/58 L 120/59 L Pulse Oximetry 100 06/26/18 14:57 06/26/18 15:00 06/26/18 15:03 Temperature Pulse Rate 60 60 60 Respiratory Rate 16 16 16 Blood Pressure 118/60 117/57 L 121/59 L Pulse Oximetry 06/26/18 15:06 06/26/18 15:09 06/26/18 15:12 Temperature Pulse Rate 60 60 60 Respiratory Rate 16 16 16 Blood Pressure 116/59 L 122/63 117/60 Pulse Oximetry 06/26/18 15:15 06/26/18 15:18 06/26/18 15:21 Temperature Pulse Rate 60 60 60 Respiratory Rate 16 16 16 Blood Pressure 115/60 113/59 L 112/59 L Pulse Oximetry 99 06/26/18 15:24 06/26/18 15:30 06/26/18 15:45 Temperature Pulse Rate 60 60 60 Respiratory Rate 16 16 16 Blood Pressure 114/60 129/64 124/64 Pulse Oximetry 99 99 99 06/26/18 16:00 06/26/18 16:15 06/26/18 16:30 Temperature Pulse Rate 60 60 60 Respiratory Rate 16 16 16 Blood Pressure 127/63 129/65 129/65 Pulse Oximetry 99 99 99 06/26/18 16:45 06/26/18 17:00 06/26/18 17:15 Temperature Pulse Rate 60 60 60 Respiratory Rate 16 16 16 Blood Pressure 133/66 134/65 129/65 Pulse Oximetry 99 99 99 06/26/18 17:30 06/26/18 17:45 06/26/18 17:47 Temperature Pulse Rate 60 60 Respiratory Rate 16 16 16 Blood Pressure 127/66 132/67 Pulse Oximetry 99 99 100 06/26/18 18:00 06/26/18 18:15 06/26/18 18:30 Temperature Pulse Rate 60 60 60 Respiratory Rate 16 16 16 Blood Pressure 135/71 140/68 139/69 Pulse Oximetry 100 100 100 06/26/18 18:45 06/26/18 19:00 06/26/18 19:15 Temperature Pulse Rate 60 60 60 Respiratory Rate 16 16 16 Blood Pressure 134/70 141/67 H 139/68 Pulse Oximetry 99 99 99 06/26/18 19:45 06/26/18 20:00 06/26/18 22:00 Temperature 97.6 F Pulse Rate 68 79 Respiratory Rate 16 16 Blood Pressure 172/74 H Pulse Oximetry 100 99 06/26/18 23:22 06/27/18 00:00 06/27/18 02:00 Temperature 98.1 F Pulse Rate 88 75 Respiratory Rate 16 16 Blood Pressure 159/72 H Pulse Oximetry 100 100 06/27/18 04:00 06/27/18 04:04 06/27/18 05:38 Temperature 97.9 F Pulse Rate 75 75 Respiratory Rate 16 16 Blood Pressure 160/77 H Pulse Oximetry 100 100 06/27/18 07:59 06/27/18 08:00 06/27/18 10:00 Temperature Pulse Rate 76 75 Respiratory Rate 16 Blood Pressure Pulse Oximetry 99 06/27/18 11:11 Temperature Pulse Rate Respiratory Rate 16 Blood Pressure Pulse Oximetry 99 Intake & Output 06/26/18 06/27/18 06/27/18 18:59 06:59 18:59 Intake Total 400 / 400 1411 / 1411 Output Total 650 / 650 1850 / 1850 Balance -250 / -250 -439 / -439 Weight 78.5 kg Intake: IV 400 / 400 1411 / 1411 Precedex Inj 200 MCG In NS Inj 50 / 50 250 / 250 48 ML @ 0.2 MCG/KG/HR 3.6 mls/ hr IV.CONT TITRATE PRN Rx#: [id number] Diprivan 1000 mg/100 ml Inj 1, 100 / 100 280 / 280 000 mg In 100 ml @ 5 MCG/KG/MIN 2.1 mls/hr IV.CONT TITRATE PRN Rx#:[id number] Maxipime Inj 2,000 MG In NS Inj 200 / 200 100 ML @ 200 mls/hr IV.SIG Q12H MONICA Rx#:[id number] KCl 20 mEq Premix Inj 20 meq In 200 / 200 100 ml @ 50 mls/hr IV.SIG Q2H PRN Rx#:[id number] fentaNYL 10 mcg/mL Premix Drip 250 / 250 481 / 481 2,500 mcg In 250 ml @ 50 MCG/HR 5 mls/hr IV.SIG TITRATE PRN Rx #:[id number] Output: Urine Amount (Catheter) 650 / 650 1850 / 1850 Indwelling Urethral Catheter 650 / 650 1850 / 1850 Result Diagrams: 06/27/18 04:55 06/27/18 04:55 Imaging: Chest X-Ray 06/20/18 20:36 CONCLUSION: Bilateral perihilar infiltrates and mild cardiomegaly. Please see above. Abdomen/Bladder Ultrasound 06/21/18 00:00 CONCLUSION: 1. Increased echogenicity of both kidneys typical of chronic parenchymal disease. 2. No evidence of acute obstructive uropathy. 3. Bilateral benign appearing renal cysts. Head CT 06/21/18 00:00 CONCLUSION: 1. Aging brain with mild volume loss. 2. No evidence of acute infarct, hemorrhage, mass or edema. . Chest X-Ray 06/21/18 06:00 CONCLUSION: Stable exam. Chest X-Ray 06/22/18 06:00 CONCLUSION: Stable chest x-ray with airspace consolidation in the left midlung zone and right lung base. Chest X-Ray 06/23/18 00:00 CONCLUSION: Improving bilateral perihilar pulmonary edema. Objective Remarks: GENERAL: 72 yoM orotracheally intubated SKIN: Warm and dry. Chronic venous stasis bilateral lower extremities HEAD: Atraumatic. Normocephalic. EYES: Pupils equal and round. No scleral icterus. No injection or drainage. ENT: No nasal bleeding or discharge. Mucous membranes pink and moist. NECK: Trachea midline. No JVD. CARDIOVASCULAR: S1-S2 regular, no gallop or murmur. RESPIRATORY: Orally intubated on mechanical ventilation, good air entry bilaterally, no wheezing or crackles. Scattered rhonchi. GASTROINTESTINAL: Abdomen soft, non-tender, slightly protuberant. Hypoactive bowel sounds appreciated MUSCULOSKELETAL: Extremities with trace bilateral lower extremity edema. No obvious deformities. NEUROLOGICAL: Sedated, arousable but not following commands. Moves all 4 extremities spontaneously. 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 Acetaminophen 650 every 6 hours as needed fever. Follow neuro status. Resume baclofen 10 mg 3 times daily/home medications on 06/27. Gabapentin on hold, Continue brimonidine 0.15% 3 times daily. Cardiovascular: Non-ST elevation MT. cardiology consult requested in view of decompensated CHF, history of cardiomyopathy and positive troponin. Obtain medical records from patient's marketing rotation associate in [place]. currently A. fib appears to be rate controlled. Continue aspirin 162 mg daily. 81 mg at home started on low-dose beta-ana metoprolol tartrate 12.5 mg twice daily. No ENA inhibitor secondary to acute kidney injury.. Currently on heparin drip due to elevated troponin. Holding cilostazol 50 mg twice daily. Resume simvastatin 20 mg daily/40 mg pravastatin substituted. Cardiac cath per Dr. Noonan. Continue Lasix for diuresis - 20 mg IV twice daily Pulmonary: Continue mechanical ventilation, vent bundle, bronchodilators as needed. Peep +5. Albuterol/ipratropium every 4 hours with albuterol aerosols every 2 hours as needed dyspnea. CPAP trials to decide extubation. Started Solu-Medrol 80 mg IV every 12 hourly as patient has significant COPD. GI/liver: Hold tube feeds for possible extubation following CPAP trial today. Renal/: Strict intake output, monitor and replete electrolytes, follow BUN/ creatinine. Diuresis with Lasix ID: Watch for fever/leukocytosis. Cefepime 2 g IV every 12 hours(06/21). Influenza a and B-. Blood cultures, urine negative. Sputum cultures growing MSSA. Stopped Zyvox on 06/26 Heme: heparin GTT resumed on 06/[address] Campa. Thrombocytopenia noted. Dr. Campa following. HIT screen negative. Per my discussion with Dr. Campa, he is okay with using Plavix if needed or Aggrastat if platelet count remains over 50,000. Endocrine: Holding metformin thousand milligrams twice daily, sitagliptin 100 mg daily sliding scale insulin with aspart insulin high protocol for glycemic control. Started stress dose steroids with hydrocortisone 50 mill grams IV every 6 hourly on 06/23 due to borderline blood pressures and recent prednisone use-switched to Solu-Medrol 80 mg IV every 12 hourly on 06/27. Prophylaxis: PPI/SCDs. Heparin GTT for full anticoagulation. Discussed with patient's in detail on 06/26 regarding plan of care and she voiced understanding. Condition critical Time spent on critical care excluding procedures 35 minutes.
--- NOTE | 2018-06-27 13:39 | XR ---
EXAM DATE: 06/27/2018 1:26 PM EDT AGE/SEX: 72 years / Male INDICATIONS: Shortness of breath. CLINICAL DATA: This is the patient's subsequent encounter. Patient reports that signs and symptoms h ave been present for 3 days and indicates a pain score of 0/10. MEDICAL/SURGICAL HISTORY: Chronic obstructive pulmonary disease. Gastroesophageal reflux disea se. Hypertension. Congestive heart failure. Diabetes. Pacemaker. COMPARISON: [facility] [place] 1[place] SINGLE AP, 06/23/2018. . FINDINGS: A single AP view of the chest demonstrates an endotracheal tube with the tip 5 cm from the b[place]. Na sogastric tube tip courses off the inferior margin of the film. Left-sided pacing device. Improving b ilateral pulmonary consolidations. No discrete effusions. Heart is normal in size. CONCLUSION: Improving bilateral pulmonary consolidations when compared to the prior study. Electronically signed by: Edwin Doshi MD 06/27/2018 1:38 PM EDT
[2018-06-27] MEDS: DOBUTamine 250 MG/250 ML Premx 250 MG/250 ML BAG IV.CONT SCH (14:00)
[2018-06-27] MEDS ORDERED: hydrALAZINE HCl Inj 20 MG/ML Vial IV.PUSH PRN (14:21)
[2018-06-27] MEDS ORDERED: Potassium Chloride 20 MEQ Pwd Pkt NG/OG ONE (14:45)
[2018-06-27] MEDS: Baclofen 10 MG Tablet PO SCH ×2 (16:00→19:28)
--- NOTE | 2018-06-27 16:26 | P.PNCA ---
Subjective Interval history: intubated, sedated Physical Exam Vital signs: Vital Signs 06/26/18 16:30 06/26/18 16:45 06/26/18 17:00 Temperature Pulse Rate 60 60 60 Respiratory Rate 16 16 16 Blood Pressure 129/65 133/66 134/65 Pulse Oximetry 99 99 99 06/26/18 17:15 06/26/18 17:30 06/26/18 17:45 Temperature Pulse Rate 60 60 60 Respiratory Rate 16 16 16 Blood Pressure 129/65 127/66 132/67 Pulse Oximetry 99 99 99 06/26/18 17:47 06/26/18 18:00 06/26/18 18:15 Temperature Pulse Rate 60 60 Respiratory Rate 16 16 16 Blood Pressure 135/71 140/68 Pulse Oximetry 100 100 100 06/26/18 18:30 06/26/18 18:45 06/26/18 19:00 Temperature Pulse Rate 60 60 60 Respiratory Rate 16 16 16 Blood Pressure 139/69 134/70 141/67 H Pulse Oximetry 100 99 99 06/26/18 19:15 06/26/18 19:45 06/26/18 20:00 Temperature 97.6 F Pulse Rate 60 68 Respiratory Rate 16 16 16 Blood Pressure 139/68 172/74 H Pulse Oximetry 99 100 99 06/26/18 22:00 06/26/18 23:22 06/27/18 00:00 Temperature 98.1 F Pulse Rate 79 88 Respiratory Rate 16 16 Blood Pressure 159/72 H Pulse Oximetry 100 100 06/27/18 02:00 06/27/18 04:00 06/27/18 04:04 Temperature 97.9 F Pulse Rate 75 75 Respiratory Rate 16 16 Blood Pressure 160/77 H Pulse Oximetry 100 100 06/27/18 05:38 06/27/18 07:59 06/27/18 08:00 Temperature Pulse Rate 75 76 Respiratory Rate 16 Blood Pressure Pulse Oximetry 99 06/27/18 10:00 06/27/18 11:11 06/27/18 13:12 Temperature Pulse Rate 75 Respiratory Rate 16 19 Blood Pressure Pulse Oximetry 99 100 Intake & Output 06/26/18 06/27/18 06/27/18 18:59 06:59 18:59 Intake Total 400 / 400 1411 / 1411 Output Total 650 / 650 1850 / 1850 Balance -250 / -250 -439 / -439 Weight 78.5 kg Intake: IV 400 / 400 1411 / 1411 Precedex Inj 200 MCG In NS Inj 50 / 50 250 / 250 48 ML @ 0.2 MCG/KG/HR 3.6 mls/ hr IV.CONT TITRATE PRN Rx#: [id number] Diprivan 1000 mg/100 ml Inj 1, 100 / 100 280 / 280 000 mg In 100 ml @ 5 MCG/KG/MIN 2.1 mls/hr IV.CONT TITRATE PRN Rx#:[id number] Maxipime Inj 2,000 MG In NS Inj 200 / 200 100 ML @ 200 mls/hr IV.SIG Q12H MONICA Rx#:[id number] KCl 20 mEq Premix Inj 20 meq In 200 / 200 100 ml @ 50 mls/hr IV.SIG Q2H PRN Rx#:[id number] fentaNYL 10 mcg/mL Premix Drip 250 / 250 481 / 481 2,500 mcg In 250 ml @ 50 MCG/HR 5 mls/hr IV.SIG TITRATE PRN Rx #:[id number] Output: Urine Amount (Catheter) 650 / 650 1850 / 1850 Indwelling Urethral Catheter 650 / 650 1850 / 1850 - Urinary Catheter Management Indwelling Urethral Catheter Cath placed during this visit: yes Reason for continuing: Hourly intake/output Insertion date: 06/20/18 Insertion time: 21:24 Assessment and Plan - Assessment (1) Cardiomyopathy Code(s): I42.9 - Cardiomyopathy, unspecified Status: Acute (2) Cardiomyopathy Code(s): I42.9 - Cardiomyopathy, unspecified Status: Acute (3) PVD (peripheral vascular disease) Code(s): I73.9 - Peripheral vascular disease, unspecified Status: Acute (4) PVD (peripheral vascular disease) Code(s): I73.9 - Peripheral vascular disease, unspecified Status: Acute (5) Tobacco abuse Code(s): Z72.0 - Tobacco use Status: Acute (6) Respiratory failure Code(s): J96.90 - Respiratory failure, unspecified, unspecified whether with hypoxia or hypercapnia Status: Acute (7) Non-ST elevated myocardial infarction (non-STEMI) Code(s): I21.4 - Non-ST elevation (NSTEMI) myocardial infarction Status: Acute (8) Pulmonary edema cardiac cause Code(s): I50.1 - Left ventricular failure, unspecified Status: Acute - Plan 1.) NICM - end stage, euvolemic, trial of dobutamine to facilitate extubation, bridge to transfer for heart transplant eval, per cm note, refuses in state transfer, requesting transfer to [facility], d/w Dr Solis 2.) CAD - nonobstructive, continue aspirin 3.) Encephalopathy - moderate per EEG on sedation, neuro following (6) Respiratory failure Qualifiers: Chronicity: acute Respiratory failure complication: hypoxia Qualified Code(s ): J96.01 - Acute respiratory failure with hypoxia
[2018-06-27] MEDS: MethylPREDNISolone Sod Succinate Inj 125 MG/2 ML Vial IV.PUSH SCH ×2 (17:29→21:13)
[2018-06-27] MEDS: Insulin Detemir Inj 1,000 UNIT/10 ML Vial SQ SCH (18:00)
[2018-06-27] MEDS ORDERED: Potassium Chloride 25 MEQ Effervescent Tablet NG/OG ONE (18:30)
[2018-06-28] MEDS: Insulin NovoLOG Aspart Correctional Sugar Inj SQ SCH ×4 (00:48→18:51)
[2018-06-28] MEDS: Dexmedetomidine Inj 1,000 MCG in Sodium Chlor 0.9% Inj 240 ML IV.CONT PRN ×3 (00:49→22:36)
[2018-06-28] MEDS: Metoprolol Tartrate 25 MG Tablet PO SCH ×2 (08:54→20:54)
[2018-06-28] MEDS: Baclofen 10 MG Tablet PO SCH ×3 (08:54→17:47)
[2018-06-28] MEDS: MethylPREDNISolone Sod Succinate Inj 125 MG/2 ML Vial IV.PUSH SCH ×2 (08:55→20:55)
[2018-06-28] MEDS: Insulin Detemir Inj 1,000 UNIT/10 ML Vial SQ SCH ×2 (08:55→20:53)
[2018-06-28] MEDS: Hypromellose 0.3% Opth Gel 10 GM Bottle EACH EYE SCH ×2 (08:56→20:54)
[2018-06-28] MEDS: Brimonidine 0.15% Opth Drops 5 ML Bottle EACH EYE SCH ×3 (08:56→17:47)
--- NOTE | 2018-06-28 09:25 | P.PNCC ---
Subjective Subjective Remarks/Hospital Course: Elderly male with a medical history significant for viral cardiomyopathy who was traveling on vacation from [place] with his family in [place] and today developed chest pain with worsening shortness of breath for which EMS was called by family. Patient was extremely short of breath on the arrival and hypoxic and they proceeded with endotracheal intubation and patient was transferred to the ER. In the ER it was noted that his cuff was leaking hence ET tube was exchanged by ER physician and patient was placed on mechanical ventilation. Per his family he has a defibrillator and is followed by his it communications specialist in [place] whom he saw in December of this year. He reportedly does not take any diuretic. Chest x-ray done in the ER revealed pulmonary edema. EKG revealed atrial fibrillation. Patient was accepted for admission by critical care medicine service. When I evaluated him in the ER he was sedated with propofol, orally intubated on mechanical ventilation. History was obtained by reviewing records, discussion with family as well as ER physician. Subjective 06/21: Afebrile. Hemodynamically stable. Troponin bumped 14. Started on heparin drip. Sedated with propofol and fentanyl drips. Arousable the ventilator and is very agitated will attempt to withdrawal tube. PEEP down to 5. 06/22: Sedated, orally intubated on mechanical ventilation. Gets agitated unenlightening sedation so Precedex added in addition to propofol and fentanyl. CPAP trials ongoing to decide extubation. Cardiac cath postponed by Dr. Noonan in view of questionable neurologic status. 06/23: Patient was extubated yesterday however was requiring significant amount of O2 post extubation with a facemask as well as nasal cannula. This morning around 4 AM due to increased work of breathing and hypoxia he was reintubated by Dr. Lino and placed back on mechanical ventilation. Currently he is sedated , orally intubated on mechanical ventilation. Postintubation chest x-ray shows ET tube in appropriate position and pulmonary edema pattern with perihilar infiltrates bilaterally. 06/24: Remains sedated, orally intubated on mechanical ventilation. 06/25: Remains sedated, orally intubated on mechanical ventilation. 06/26: Remains sedated, orally intubated on mechanical ventilation. Pacer backup rate increased to 60/min yesterday due to hypotension. Awaiting cardiac catheterization. 06/27: Sedated, orally intubated on mechanical ventilation. Underwent cardiac catheterization which revealed nonobstructive CAD. Patient has nonischemic dilated cardiomyopathy per discussion with Dr. Noonan. Initiated dobutamine 2.5 mics per KG per minute on 06/26. Filling pressures not elevated per Dr. Noonan on cardiac cath. 06/28: Sedated, arousable, orally intubated on mechanical ventilation. IV hydrocortisone switched to Solu-Medrol yesterday. Pulmonary consult with Dr. Villegas as patient appears to have significant COPD in addition to cardiomyopathy. Remains on dobutamine at 1.5 mics per KG per minute. Diuresing well. Does not appear to be fluid overloaded at this time. Daily CPAP trials ongoing. Objective Vital Signs / I&O: Vital Signs 06/27/18 10:00 06/27/18 11:11 06/27/18 12:00 Temperature Pulse Rate 75 112 H Respiratory Rate 16 Blood Pressure Pulse Oximetry 99 06/27/18 13:12 06/27/18 13:30 06/27/18 13:45 Temperature Pulse Rate 108 H 112 H Respiratory Rate 19 14 16 Blood Pressure 153/72 H 155/74 H Pulse Oximetry 100 99 98 06/27/18 14:00 06/27/18 14:15 06/27/18 14:30 Temperature Pulse Rate 85 86 91 H Respiratory Rate 17 16 16 Blood Pressure 161/85 H 139/63 146/72 H Pulse Oximetry 98 100 100 06/27/18 14:45 06/27/18 15:00 06/27/18 15:15 Temperature Pulse Rate 89 79 83 Respiratory Rate 16 16 16 Blood Pressure 148/70 H 162/70 H 148/71 H Pulse Oximetry 100 100 100 06/27/18 15:31 06/27/18 15:45 06/27/18 16:00 Temperature Pulse Rate 84 85 64 Respiratory Rate 16 16 16 Blood Pressure 158/70 H 148/70 H 164/74 H Pulse Oximetry 100 100 100 06/27/18 16:15 06/27/18 16:30 06/27/18 16:36 Temperature Pulse Rate 96 H 66 Respiratory Rate 16 16 16 Blood Pressure 169/78 H 143/66 H Pulse Oximetry 100 100 100 06/27/18 16:45 06/27/18 17:00 06/27/18 17:15 Temperature Pulse Rate 82 71 76 Respiratory Rate 16 16 16 Blood Pressure 155/70 H 139/63 155/72 H Pulse Oximetry 100 100 100 06/27/18 17:30 06/27/18 17:45 06/27/18 18:00 Temperature Pulse Rate 69 64 105 H Respiratory Rate 16 16 16 Blood Pressure 139/66 167/76 H 133/61 Pulse Oximetry 100 100 100 06/27/18 18:15 06/27/18 18:30 06/27/18 18:45 Temperature Pulse Rate 68 70 100 H Respiratory Rate 16 16 16 Blood Pressure 170/74 H 128/62 149/77 H Pulse Oximetry 100 100 100 06/27/18 19:00 06/27/18 19:15 06/27/18 19:30 Temperature Pulse Rate 62 112 H 105 H Respiratory Rate 16 21 26 H Blood Pressure 145/67 H 145/75 H 116/67 Pulse Oximetry 100 100 99 06/27/18 20:00 06/27/18 20:33 06/27/18 21:55 Temperature 99.0 F Pulse Rate 67 62 Respiratory Rate 17 16 17 Blood Pressure 99/55 L Pulse Oximetry 100 100 100 06/27/18 22:00 06/28/18 00:00 06/28/18 00:09 Temperature 99.1 F Pulse Rate 62 64 Respiratory Rate 16 16 Blood Pressure 132/63 Pulse Oximetry 100 100 06/28/18 02:00 06/28/18 04:00 06/28/18 04:40 Temperature Pulse Rate 71 71 82 Respiratory Rate 16 17 Blood Pressure 142/68 H Pulse Oximetry 100 100 06/28/18 06:00 06/28/18 08:38 Temperature Pulse Rate 87 76 Respiratory Rate 16 Blood Pressure Pulse Oximetry 100 Intake & Output 06/27/18 06/28/18 06/28/18 18:59 06:59 18:59 Intake Total 640 / 640 470 / 470 250 / 250 Output Total 2400 / 2400 950 / 950 Balance -1760 / -1760 -480 / -480 250 / 250 Weight 72.5 kg Intake: IV 640 / 640 350 / 350 250 / 250 Dobutrex Inj 500 MG In D5W Inj 290 / 290 250 ML @ 2.5 MCG/KG/MIN 6.82 mls/hr IV.CONT .Q24H [facility] Rx#: [id number] Precedex Inj 1,000 MCG In NS 250 / 250 250 / 250 250 / 250 Inj 240 ML @ 0.2 MCG/KG/HR 3.6 mls/hr IV.CONT TITRATE PRN Rx#: [id number] Maxipime Inj 2,000 MG In NS Inj 100 / 100 100 / 100 100 ML @ 200 mls/hr IV.SIG Q12H [facility] Rx#:[id number] Tube Irrigant 120 / 120 Output: Urine 950 / 950 Urine Amount (Catheter) 2400 / 2400 Indwelling Urethral Catheter 2400 / 2400 Other: # Bowel Movements 0 Result Diagrams: 06/27/18 04:55 06/27/18 04:55 Imaging: Impressions Chest X-Ray 06/27/18 12:38 CONCLUSION: Improving bilateral pulmonary consolidations when compared to the prior study. Objective Remarks: GENERAL: 72 yoM orotracheally intubated SKIN: Warm and dry. Chronic venous stasis bilateral lower extremities HEAD: Atraumatic. Normocephalic. EYES: Pupils equal and round. No scleral icterus. No injection or drainage. ENT: No nasal bleeding or discharge. Mucous membranes pink and moist. NECK: Trachea midline. No JVD. CARDIOVASCULAR: S1-S2 regular, no gallop or murmur. RESPIRATORY: Orally intubated on mechanical ventilation, good air entry bilaterally, no wheezing or crackles. Scattered rhonchi. GASTROINTESTINAL: Abdomen soft, non-tender, slightly protuberant. Hypoactive bowel sounds appreciated MUSCULOSKELETAL: Extremities with trace bilateral lower extremity edema. No obvious deformities. NEUROLOGICAL: Sedated, arousable but not following commands. Moves all 4 extremities spontaneously. Assessment and Plan - Assessment and Plan Plan: Elderly male with: Chest pain Acute respiratory failure on mechanical ventilation Acute decompensated CHF - systolic and dialstolic EF 40% 2017 Staph pneumonia B/L carotid Stenosis 40-59% erectile Dysfunction PAD LBBB- chronic Cardiomyopathy - Dilated NSTEMI Atrial fibrillation Diabetes mellitus Hypertension COPD History of pacemaker/defibrillator placement Diabetes mellitus type 2 uncontrolled with hyperglycemia Hyperlipidemia Glaucoma Normocytic anemia Thrombocytopenia Acute kidney injury Hypoalbuminemia Cystitis Thrombocytopenia Plan: Neuro: Sedation with fentanyl/ precedex drips maintain RASS -2, off propofol, daily sedation vacation. Acetaminophen 650 every 6 hours as needed fever. Follow neuro status. Resume baclofen 10 mg 3 times daily/home medications on . Will resume gabapentin at 300 mg every 8 hourly and gradually increase up to his home dose., Continue brimonidine 0.15% 3 times daily. Cardiovascular: Non-ST elevation WI. cardiology consult requested in view of decompensated CHF, history of cardiomyopathy and positive troponin. Obtain medical records from patient's it communications specialist in [place]. currently A. fib appears to be rate controlled. Continue aspirin 162 mg daily. 81 mg at home started on low-dose beta-ana metoprolol tartrate 12.5 mg twice daily. No ENA inhibitor secondary to acute kidney injury.. Off heparin GTT. Holding cilostazol 50 mg twice daily. Resume simvastatin 20 mg daily/40 mg pravastatin substituted. Cardiac cath per Dr. Noonan. Continue Lasix for diuresis - 20 mg IV twice daily Pulmonary: Continue mechanical ventilation, vent bundle, bronchodilators as needed. Peep +5. Albuterol/ipratropium every 4 hours with albuterol aerosols every 2 hours as needed dyspnea. CPAP trials to decide extubation. Solu- Medrol 80 mg IV every 12 hourly as patient has significant COPD. Pulm consult Dr. Shayy Villegas for COPD. GI/liver: Tolerating tube feeds Renal/: Strict intake output, monitor and replete electrolytes, follow BUN/ creatinine. Diuresis with Lasix ID: Watch for fever/leukocytosis. Cefepime 2 g IV every 12 hours(06/21-06/28). Influenza a and B-. Blood cultures, urine negative. Sputum cultures growing MSSA. Stopped Zyvox on 06/26 Heme: Thrombocytopenia noted. Dr. Campa following. HIT screen negative. Per my discussion with Dr. Campa, he is okay with using Plavix if needed or Aggrastat if platelet count remains over 50,000. Heparin gtt. discontinued following cardiac cath. Will initiate Lovenox 40 mg subcutaneous daily on 06/28 for DVT prophylaxis Endocrine: Holding metformin thousand milligrams twice daily, sitagliptin 100 mg daily sliding scale insulin with aspart insulin high protocol for glycemic control. Started stress dose steroids with hydrocortisone 50 mill grams IV every 6 hourly on 06/23 due to borderline blood pressures and recent prednisone use-switched to Solu-Medrol 80 mg IV every 12 hourly on 06/27. Prophylaxis: PPI/SCDs. Off heparin GTT now so we will initiate Lovenox 40 mg subcutaneous daily for DVT prophylaxis Discussed with Dr. Etienne Villegas on 06/27. Discussed with patient's in detail on 8/15 regarding plan of care and she voiced understanding. Condition critical Time spent on critical care excluding procedures 35 minutes.
[2018-06-28 10:11] LABS: Baso % (Auto) 0.2 % (0.0-2.0); Hematocrit 38.3 % (39.0-51.0); Hemoglobin 12.6 gm/dL (13.0-17.0); Lymph # (Auto) 0.6 th/mm3 (1.0-4.8); Lymph % (Auto) 11.7 % (9.0-44.0); Mean Corpuscular HGB Conc 32.9 % (32.0-36.0); Mean Corpuscular Hemoglobin 30.7 pg (27.0-34.0); Mean Corpuscular Volume 93.3 fL (80.0-100.0); Mono # (Auto) 0.5 th/mm3 (0.0-0.9); Mono % (Auto) 9.2 % (0.0-8.0); Neut # (Auto) 4.1 th/mm3 (1.8-7.7); Neut % (Auto) 78.9 % (16.0-70.0); Platelet Count 79 th/mm3 (150-450); Red Blood Count 4.11 mil/mm3 (4.50-5.90); Red Cell Distribution Width 16.6 % (11.6-17.2); White Blood Count 5.2 th/mm3 (4.0-11.0)
[2018-06-28 10:27] LABS: Alanine Aminotransferase 124 U/L (12-78); Albumin 2.7 g/dL (3.4-5.0); Anion Gap 9 meq/L (5-15); Aspartate Aminotransferase 106 U/L (15-37); Calcium 8.3 mg/dL (8.5-10.1); Carbon Dioxide 27.7 meq/L (21.0-32.0); Chloride 117 meq/L (98-107); Glomerular Filtration Rate 56 mL/min (>89); Glucose,Random 192 mg/dL (74-106); Magnesium 2.5 mg/dL (1.5-2.5); Phosphorus 3.1 mg/dL (2.5-4.9); Potassium 3.1 meq/L (3.5-5.1); Sodium 154 meq/L (136-145)
[2018-06-28 10:34] LABS: Alkaline Phosphatase 61 U/L (45-117); Blood Urea Nitrogen 36 mg/dL (7-18); Total Protein 7.1 g/dL (6.4-8.2)
[2018-06-28 10:49] LABS: Platelet Morphology Normal (Normal)
[2018-06-28] MEDS: Potassium Chlor 20 mEq Premix 20 MEQ/100 ML PIGGYBACK IV.SIG PRN ×4 (11:39→17:47)
--- NOTE | 2018-06-28 13:43 | P.PNCA ---
Subjective Interval history: intubated, sedated Physical Exam Vital signs: Vital Signs 06/27/18 13:45 06/27/18 14:00 06/27/18 14:15 Temperature Pulse Rate 112 H 85 86 Respiratory Rate 16 17 16 Blood Pressure 155/74 H 161/85 H 139/63 Pulse Oximetry 98 98 100 06/27/18 14:30 06/27/18 14:45 06/27/18 15:00 Temperature Pulse Rate 91 H 89 79 Respiratory Rate 16 16 16 Blood Pressure 146/72 H 148/70 H 162/70 H Pulse Oximetry 100 100 100 06/27/18 15:15 06/27/18 15:31 06/27/18 15:45 Temperature Pulse Rate 83 84 85 Respiratory Rate 16 16 16 Blood Pressure 148/71 H 158/70 H 148/70 H Pulse Oximetry 100 100 100 06/27/18 16:00 06/27/18 16:15 06/27/18 16:30 Temperature Pulse Rate 64 96 H 66 Respiratory Rate 16 16 16 Blood Pressure 164/74 H 169/78 H 143/66 H Pulse Oximetry 100 100 100 06/27/18 16:36 06/27/18 16:45 06/27/18 17:00 Temperature Pulse Rate 82 71 Respiratory Rate 16 16 16 Blood Pressure 155/70 H 139/63 Pulse Oximetry 100 100 100 06/27/18 17:15 06/27/18 17:30 06/27/18 17:45 Temperature Pulse Rate 76 69 64 Respiratory Rate 16 16 16 Blood Pressure 155/72 H 139/66 167/76 H Pulse Oximetry 100 100 100 06/27/18 18:00 06/27/18 18:15 06/27/18 18:30 Temperature Pulse Rate 105 H 68 70 Respiratory Rate 16 16 16 Blood Pressure 133/61 170/74 H 128/62 Pulse Oximetry 100 100 100 06/27/18 18:45 06/27/18 19:00 06/27/18 19:15 Temperature Pulse Rate 100 H 62 112 H Respiratory Rate 16 16 21 Blood Pressure 149/77 H 145/67 H 145/75 H Pulse Oximetry 100 100 100 06/27/18 19:30 06/27/18 20:00 06/27/18 20:33 Temperature 99.0 F Pulse Rate 105 H 67 62 Respiratory Rate 26 H 17 16 Blood Pressure 116/67 99/55 L Pulse Oximetry 99 100 100 08/15/18 21:55 06/27/18 22:00 06/28/18 00:00 Temperature 99.1 F Pulse Rate 62 64 Respiratory Rate 17 16 Blood Pressure 132/63 Pulse Oximetry 100 100 06/28/18 00:09 06/28/18 02:00 06/28/18 04:00 Temperature Pulse Rate 71 71 Respiratory Rate 16 16 Blood Pressure 142/68 H Pulse Oximetry 100 100 06/28/18 04:40 06/28/18 06:00 06/28/18 06:15 Temperature Pulse Rate 82 87 68 Respiratory Rate 17 16 Blood Pressure 165/75 H Pulse Oximetry 100 100 06/28/18 06:30 06/28/18 06:45 06/28/18 07:00 Temperature Pulse Rate 76 74 71 Respiratory Rate 16 16 16 Blood Pressure 152/72 H 149/73 H 146/70 H Pulse Oximetry 100 100 100 06/28/18 07:15 06/28/18 07:30 06/28/18 07:45 Temperature Pulse Rate 73 72 71 Respiratory Rate 16 31 H 16 Blood Pressure 141/70 H 145/70 H 146/67 H Pulse Oximetry 100 100 100 06/28/18 08:00 06/28/18 08:15 06/28/18 08:30 Temperature 101.0 F H Pulse Rate 71 74 71 Respiratory Rate 25 H 32 H 16 Blood Pressure 146/64 H 161/74 H 149/70 H Pulse Oximetry 100 100 100 06/28/18 08:38 06/28/18 08:45 06/28/18 09:00 Temperature Pulse Rate 76 71 77 Respiratory Rate 16 25 H 16 Blood Pressure 147/70 H 153/74 H Pulse Oximetry 100 100 100 06/28/18 09:15 06/28/18 09:30 06/28/18 09:45 Temperature Pulse Rate 85 71 71 Respiratory Rate 16 16 16 Blood Pressure 145/69 H 139/67 121/57 L Pulse Oximetry 100 100 100 06/28/18 10:00 06/28/18 10:15 06/28/18 10:30 Temperature Pulse Rate 66 66 69 Respiratory Rate 16 16 9 L Blood Pressure 139/65 137/65 137/69 Pulse Oximetry 100 100 100 06/28/18 10:45 06/28/18 11:00 06/28/18 11:15 Temperature Pulse Rate 64 65 61 Respiratory Rate 8 L 8 L 7 L Blood Pressure 134/66 127/61 158/72 H Pulse Oximetry 100 100 100 06/28/18 11:30 06/28/18 11:31 06/28/18 11:45 Temperature Pulse Rate 61 67 Respiratory Rate 7 L 14 16 Blood Pressure 145/69 H 153/67 H Pulse Oximetry 100 100 100 06/28/18 12:00 06/28/18 12:15 Temperature 100.6 F H Pulse Rate 68 60 Respiratory Rate 16 14 Blood Pressure 143/67 H 140/60 Pulse Oximetry 100 100 Intake & Output 06/27/18 06/28/18 06/28/18 18:59 06:59 18:59 Intake Total 640 / 640 470 / 470 250 / 250 Output Total 2400 / 2400 950 / 950 Balance -1760 / -1760 -480 / -480 250 / 250 Weight 72.5 kg Intake: IV 640 / 640 350 / 350 250 / 250 Dobutrex Inj 500 MG In D5W Inj 290 / 290 250 ML @ 2.5 MCG/KG/MIN 6.82 mls/hr IV.CONT .Q24H [facility] Rx#: [id number] Precedex Inj 1,000 MCG In NS 250 / 250 250 / 250 250 / 250 Inj 240 ML @ 0.2 MCG/KG/HR 3.6 mls/hr IV.CONT TITRATE PRN Rx#: [id number] Maxipime Inj 2,000 MG In NS Inj 100 / 100 100 / 100 100 ML @ 200 mls/hr IV.SIG Q12H [facility] Rx#:[id number] Tube Irrigant 120 / 120 Output: Urine 950 / 950 Urine Amount (Catheter) 2400 / 2400 Indwelling Urethral Catheter 2400 / 2400 Other: # Bowel Movements 0 - Urinary Catheter Management Indwelling Urethral Catheter Cath placed during this visit: yes Reason for continuing: Hourly intake/output Insertion date: 06/20/18 Insertion time: 21:24 Assessment and Plan - Assessment (1) Cardiomyopathy Code(s): I42.9 - Cardiomyopathy, unspecified Status: Acute (2) Cardiomyopathy Code(s): I42.9 - Cardiomyopathy, unspecified Status: Acute (3) PVD (peripheral vascular disease) Code(s): I73.9 - Peripheral vascular disease, unspecified Status: Acute (4) PVD (peripheral vascular disease) Code(s): I73.9 - Peripheral vascular disease, unspecified Status: Acute (5) Tobacco abuse Code(s): Z72.0 - Tobacco use Status: Acute (6) Respiratory failure Code(s): J96.90 - Respiratory failure, unspecified, unspecified whether with hypoxia or hypercapnia Status: Acute (7) Non-ST elevated myocardial infarction (non-STEMI) Code(s): I21.4 - Non-ST elevation (NSTEMI) myocardial infarction Status: Acute (8) Pulmonary edema cardiac cause Code(s): I50.1 - Left ventricular failure, unspecified Status: Acute - Plan 1.) NICM - end stage, euvolemic, trial of dobutamine to facilitate extubation, bridge to transfer for heart transplant eval, per cm note, refuses in state transfer, requesting transfer to [facility], d/w Dr Solis; beta ana and hellen held due to need for inotropic and bp support 2.) CAD - nonobstructive, continue aspirin, pravachol 3.) Encephalopathy - moderate per EEG on sedation, neuro following 4.) d/w case with and daughter at the bedside (6) Respiratory failure Qualifiers: Chronicity: acute Respiratory failure complication: hypoxia Qualified Code(s ): J96.01 - Acute respiratory failure with hypoxia
[2018-06-28] MEDS: fentaNYL 10 mcg/mL Premix Drip 2,500 MCG/250 ML BAG IV.SIG PRN (13:54)
[2018-06-28] MEDS: Enoxaparin Inj 40 MG/0.4 ML Syringe SQ SCH (13:54)
--- NOTE | 2018-06-28 13:54 | MB ---
cc: Franchesca Villegas MD DATE: 06/28/2018 HISTORY OF PRESENT ILLNESS: Mr. Avila is a 72-year-old white male vacationing here in [facility] from [place], [place]. The patient became increasingly short of breath and presented to the emergency room in severe distress, required critical care admission, intubation, and stabilization. His history prior to this includes a severe cardiomyopathy with ejection fraction in the range of 20% to 25%. This is thought to be viral-induced prior to admission at least and he has been managed by his physicians in [place]. He has also been a regular smoker up to and including the time of admission and his states that he does have chronic obstructive pulmonary disease and had been on bronchodilators and prednisone recently. She had noticed gradually increasing shortness of breath over several weeks, but it became a crisis the day he presented to the ER. Initial focus of attention was stabilization and his underlying heart disease. Dr. Noonan saw him and actually catheterized him several days ago. He had some coronary disease, but this was felt to be a nonischemic cardiomyopathy and his filling pressures were nearly normal, so he did not appear to be in significant heart failure at present. He was weaned and extubated at one point, but required intubation within 24 hours for increasing respiratory distress. We do not have full documentation of his history of COPD, although he has smoked his entire adult life. Hematology is also seeing him for thrombocytopenia. This is also apparently chronic, could be drug related, but was not felt to be a consequence of problems during this admission. The patient is intubated and sedated, comfortable. This information is taken from his record and from his . PAST MEDICAL HISTORY: Other than that noted above, gastroesophageal reflux disease, hypertension, peripheral neuropathy, peripheral arterial disease, and glaucoma. CURRENT MEDICATIONS: Reviewed in the EMR. ALLERGIES: NONE KNOWN. SOCIAL HISTORY: , living with his . From [place]. Has smoked his entire adult life. No recent alcohol abuse history. REVIEW OF SYSTEMS: Unobtainable. PHYSICAL EXAMINATION: GENERAL: The patient is intubated, sedated, comfortable. VITAL SIGNS: Temperature is 99-100, blood pressure is 150/67 on low-dose of dobutamine. Respiratory rate is 16-18 and O2 saturation is 100% on mechanical ventilatory support and an FiO2 of 35%. HEENT: Sclerae are pale but anicteric. Orotracheally intubated. NECK: Veins are not obviously distended. CHEST: Some minimal scattered congestion, but no wheezing. HEART: Regular rhythm. No harsh murmur. ABDOMEN: Soft. EXTREMITIES: He has no significant peripheral edema. No cyanosis. DIAGNOSTIC DATA: Chest x-ray from 06/27/2018: Some clearing of perihilar infiltrates. No significant effusions. LABORATORY DATA: White count 5200, hemoglobin 12, platelet count 80,000. Cultures of blood have been negative. Gram stain and culture of the sputum revealed Staphylococcus aureus. Influenza A and B have been negative. Repeat sputum culture is pending. DISCUSSION: Mr. Avila presents with a known severe cardiomyopathy, certainly a significant contributing factor to this presentation, but probably also has significant underlying chronic obstructive pulmonary disease in light of the prior smoking history. Initial attempt at intubation failed, probably as a consequence of his cardiopulmonary instability and he has now been re-stabilized on ventilatory support. I spoke to Dr. Solis, his cake tester, and I agree with the current management including bronchodilators, corticosteroids, and antibiotics. Dose can be adjusted based on followup sputum culture. I also had an extensive conversation with his who is obviously very concerned. They are not from this area in which she would like him to be transported back to [place] when possible and when he is stable. Some thought and consideration has been given to transplant; and, if that were to be considered, she would want him back in [place]. At this point, he is too critically ill to consider any type of transfer. Electronics Instructor will continue to follow this. I explained to his that if over the course of the next several days he is showing no sign of significant improvement such that he could be weaned and extubated, a tracheostomy is something to be considered. Contrary to her thought that this would be permanent, we would hope that would be a temporary move to enable us to wean him and take him off of the ventilator. Further diagnostic and/or therapeutic intervention will depend on his ongoing clinical course. RMD JAGRUTI Jacobsen/felicia , 01:04 PM , 01:16 PM
[2018-06-28] MEDS ORDERED: Bisacodyl 10 MG Supp RECTAL PRN (17:53)
[2018-06-28] MEDS: Senna/Docusate Sodium 8.6/50 MG Tablet PO SCH (20:55)
[2018-06-29] MEDS: Insulin NovoLOG Aspart Correctional Sugar Inj SQ SCH ×4 (00:51→18:59)
[2018-06-29 01:26] LABS: Baso % (Auto) 0.2 % (0.0-2.0); Eos % (Auto) 0.1 % (0.0-4.0); Hematocrit 38.4 % (39.0-51.0); Hemoglobin 12.9 gm/dL (13.0-17.0); Lymph # (Auto) 0.6 th/mm3 (1.0-4.8); Lymph % (Auto) 10.2 % (9.0-44.0); Mean Corpuscular HGB Conc 33.6 % (32.0-36.0); Mean Corpuscular Hemoglobin 30.8 pg (27.0-34.0); Mean Corpuscular Volume 91.7 fL (80.0-100.0); Mean Platelet Volume 9.4 fL (7.0-11.0); Mono # (Auto) 0.2 th/mm3 (0.0-0.9); Mono % (Auto) 4.3 % (0.0-8.0); Neut # (Auto) 4.9 th/mm3 (1.8-7.7); Neut % (Auto) 85.2 % (16.0-70.0); Platelet Count 71 th/mm3 (150-450); Red Blood Count 4.19 mil/mm3 (4.50-5.90); Red Cell Distribution Width 16.6 % (11.6-17.2); White Blood Count 5.7 th/mm3 (4.0-11.0)
[2018-06-29 01:35] LABS: Alanine Aminotransferase 115 U/L (12-78); Albumin 2.7 g/dL (3.4-5.0); Anion Gap 10 meq/L (5-15); Aspartate Aminotransferase 92 U/L (15-37); Blood Urea Nitrogen 42 mg/dL (7-18); Calcium 8.3 mg/dL (8.5-10.1); Carbon Dioxide 26.4 meq/L (21.0-32.0); Chloride 119 meq/L (98-107); Glomerular Filtration Rate 59 mL/min (>89); Glucose,Random 283 mg/dL (74-106); Potassium 3.3 meq/L (3.5-5.1); Sodium 155 meq/L (136-145)
[2018-06-29 01:38] LABS: Alkaline Phosphatase 60 U/L (45-117); Total Protein 6.9 g/dL (6.4-8.2)
[2018-06-29 02:10] LABS: Platelet Morphology Normal (Normal)
[2018-06-29] MEDS: Potassium Chlor 20 mEq Premix 20 MEQ/100 ML PIGGYBACK IV.SIG PRN ×2 (03:53→06:00)
--- NOTE | 2018-06-29 05:52 | XR ---
EXAM DATE: 06/29/2018 5:45 AM EDT AGE/SEX: 72 years / Male INDICATIONS: Respiratory failure. CLINICAL DATA: This is the patient's subsequent encounter. Patient reports that signs and symptoms h ave been present for 4 - 6 days and indicates a pain score of Nonresponsive. MEDICAL/SURGICAL HISTORY: None. None. COMPARISON: C, CHEST 1V SINGLE AP, 06/27/2018. . FINDINGS: The ET tube and NG tube are well placed. There is a pacing device seen left chest. The heart size is normal. The lungs are grossly clear. CONCLUSION: The ET tube and NG tube are well placed. The lungs are clear. Electronically signed by: Michael Goodson MD 06/29/2018 5:50 AM EDT
--- NOTE | 2018-06-29 08:26 | P.PNCA ---
Subjective Interval history: intubated, sedated Physical Exam Vital signs: Vital Signs 06/28/18 08:30 06/28/18 08:38 06/28/18 08:45 Temperature Pulse Rate 71 76 71 Respiratory Rate 16 16 25 H Blood Pressure 149/70 H 147/70 H Pulse Oximetry 100 100 100 06/28/18 09:00 06/28/18 09:15 06/28/18 09:30 Temperature Pulse Rate 77 85 71 Respiratory Rate 16 16 16 Blood Pressure 153/74 H 145/69 H 139/67 Pulse Oximetry 100 100 100 06/28/18 09:45 06/28/18 10:00 06/28/18 10:15 Temperature Pulse Rate 71 66 66 Respiratory Rate 16 16 16 Blood Pressure 121/57 L 139/65 137/65 Pulse Oximetry 100 100 100 06/28/18 10:30 06/28/18 10:45 06/28/18 11:00 Temperature Pulse Rate 69 64 65 Respiratory Rate 9 L 8 L 8 L Blood Pressure 137/69 134/66 127/61 Pulse Oximetry 100 100 100 06/28/18 11:15 06/28/18 11:30 06/28/18 11:31 Temperature Pulse Rate 61 61 Respiratory Rate 7 L 7 L 14 Blood Pressure 158/72 H 145/69 H Pulse Oximetry 100 100 100 06/28/18 11:45 06/28/18 12:00 06/28/18 12:15 Temperature 100.6 F H Pulse Rate 67 68 60 Respiratory Rate 16 16 14 Blood Pressure 153/67 H 143/67 H 140/60 Pulse Oximetry 100 100 100 06/28/18 12:30 06/28/18 12:45 06/28/18 13:00 Temperature Pulse Rate 60 66 64 Respiratory Rate 18 10 L 8 L Blood Pressure 155/71 H 141/62 H 153/68 H Pulse Oximetry 100 100 100 06/28/18 13:15 06/28/18 13:30 06/28/18 13:45 Temperature Pulse Rate 60 60 66 Respiratory Rate 8 L 17 8 L Blood Pressure 145/68 H 143/64 H 147/74 H Pulse Oximetry 100 100 100 06/28/18 14:00 06/28/18 14:15 06/28/18 14:30 Temperature Pulse Rate 66 67 64 Respiratory Rate 18 9 L 9 L Blood Pressure 153/74 H 152/72 H 146/64 H Pulse Oximetry 100 100 100 06/28/18 14:45 06/28/18 15:00 06/28/18 15:15 Temperature Pulse Rate 60 60 60 Respiratory Rate 19 11 L 13 Blood Pressure 141/66 H 130/62 128/58 L Pulse Oximetry 100 100 100 06/28/18 15:20 06/28/18 15:30 06/28/18 15:45 Temperature Pulse Rate 60 60 60 Respiratory Rate 17 19 19 Blood Pressure 123/59 L 125/60 Pulse Oximetry 100 100 06/28/18 16:00 06/28/18 16:15 06/28/18 16:30 Temperature 99.2 F Pulse Rate 60 60 60 Respiratory Rate 15 13 12 Blood Pressure 132/63 138/66 136/65 Pulse Oximetry 100 100 100 06/28/18 16:45 06/28/18 17:00 06/28/18 17:15 Temperature Pulse Rate 60 60 65 Respiratory Rate 13 11 L 16 Blood Pressure 138/67 149/66 H 138/67 Pulse Oximetry 100 100 100 06/28/18 17:30 06/28/18 17:45 06/28/18 17:53 Temperature Pulse Rate 61 65 Respiratory Rate 13 16 16 Blood Pressure 139/69 140/65 Pulse Oximetry 100 100 100 06/28/18 18:00 06/28/18 18:01 06/28/18 18:15 Temperature Pulse Rate 60 73 60 Respiratory Rate 26 H 18 18 Blood Pressure 132/65 154/70 H Pulse Oximetry 100 100 100 06/28/18 18:30 06/28/18 20:00 06/28/18 20:43 Temperature 101.2 F H Pulse Rate 61 60 Respiratory Rate 16 16 16 Blood Pressure 150/67 H 126/61 Pulse Oximetry 100 100 100 06/28/18 20:47 06/28/18 22:00 06/28/18 23:48 Temperature Pulse Rate 60 60 Respiratory Rate 16 16 Blood Pressure Pulse Oximetry 100 06/29/18 00:00 06/29/18 01:42 06/29/18 02:00 Temperature 102.4 F H Pulse Rate 60 60 Respiratory Rate 16 17 Blood Pressure 145/68 H Pulse Oximetry 100 100 06/29/18 03:37 06/29/18 04:00 06/29/18 04:13 Temperature 97.9 F Pulse Rate 61 60 Respiratory Rate 16 16 16 Blood Pressure 145/60 H Pulse Oximetry 100 100 06/29/18 06:00 Temperature Pulse Rate 60 Respiratory Rate Blood Pressure Pulse Oximetry Intake & Output 06/28/18 06/29/18 06/29/18 18:59 06:59 18:59 Intake Total 1110 / 1110 692 / 692 Output Total 1400 / 1400 1450 / 1450 Balance -290 / -290 -758 / -758 Weight 70 kg Intake: IV 1050 / 1050 300 / 300 Precedex Inj 1,000 MCG In NS 500 / 500 Inj 240 ML @ 0.2 MCG/KG/HR 3.6 mls/hr IV.CONT TITRATE PRN Rx#: [id number] Maxipime Inj 2,000 MG In NS Inj 100 / 100 100 / 100 100 ML @ 200 mls/hr IV.SIG Q12H MONICA Rx#:[id number] KCl 20 mEq Premix Inj 20 meq In 200 / 200 200 / 200 100 ml @ 50 mls/hr IV.SIG Q2H PRN Rx#:[id number] fentaNYL 10 mcg/mL Premix Drip 250 / 250 2,500 mcg In 250 ml @ 50 MCG/HR 5 mls/hr IV.SIG TITRATE PRN Rx #:[id number] Tube Feeding 332 / 332 Water Bolus Amount 60 / 60 60 / 60 Output: Urine Amount (Catheter) 1400 / 1400 1450 / 1450 Indwelling Urethral Catheter 1400 / 1400 1450 / 1450 Other: # Bowel Movements 0 0 - Urinary Catheter Management Indwelling Urethral Catheter Cath placed during this visit: yes Reason for continuing: Hourly intake/output Insertion date: 06/20/18 Insertion time: 21:24 Assessment and Plan - Assessment (1) Cardiomyopathy Code(s): I42.9 - Cardiomyopathy, unspecified Status: Acute (2) Cardiomyopathy Code(s): I42.9 - Cardiomyopathy, unspecified Status: Acute (3) PVD (peripheral vascular disease) Code(s): I73.9 - Peripheral vascular disease, unspecified Status: Acute (4) PVD (peripheral vascular disease) Code(s): I73.9 - Peripheral vascular disease, unspecified Status: Acute (5) Tobacco abuse Code(s): Z72.0 - Tobacco use Status: Acute (6) Respiratory failure Code(s): J96.90 - Respiratory failure, unspecified, unspecified whether with hypoxia or hypercapnia Status: Acute (7) Non-ST elevated myocardial infarction (non-STEMI) Code(s): I21.4 - Non-ST elevation (NSTEMI) myocardial infarction Status: Acute (8) Pulmonary edema cardiac cause Code(s): I50.1 - Left ventricular failure, unspecified Status: Acute - Plan 1.) NICM - end stage, euvolemic, trial of dobutamine to facilitate extubation, bridge to transfer for heart transplant eval, per cm note, refuses in state transfer, requesting transfer to [facility], d/w Dr Solis; beta ana and hellen held due to need for inotropic and bp support, he has hypernatremia 2.) CAD - nonobstructive, continue aspirin, pravachol 3.) Encephalopathy - moderate per EEG on sedation, neuro following 4.) d/w case with and daughter at the bedside 06/28/18 (6) Respiratory failure Qualifiers: Chronicity: acute Respiratory failure complication: hypoxia Qualified Code(s ): J96.01 - Acute respiratory failure with hypoxia
[2018-06-29] MEDS: Dexmedetomidine Inj 1,000 MCG in Sodium Chlor 0.9% Inj 240 ML IV.CONT PRN (08:56)
[2018-06-29] MEDS: Hypromellose 0.3% Opth Gel 10 GM Bottle EACH EYE SCH ×2 (09:20→21:27)
[2018-06-29] MEDS: Brimonidine 0.15% Opth Drops 5 ML Bottle EACH EYE SCH ×3 (09:20→19:00)
[2018-06-29] MEDS: MethylPREDNISolone Sod Succinate Inj 125 MG/2 ML Vial IV.PUSH SCH (09:21)
[2018-06-29] MEDS: Senna/Docusate Sodium 8.6/50 MG Tablet PO SCH ×2 (09:21→21:27)
[2018-06-29] MEDS: Baclofen 10 MG Tablet PO SCH ×3 (09:21→18:56)
[2018-06-29] MEDS: Enoxaparin Inj 40 MG/0.4 ML Syringe SQ SCH (09:21)
[2018-06-29] MEDS: Metoprolol Tartrate 25 MG Tablet PO SCH ×2 (09:21→21:27)
[2018-06-29] MEDS: Insulin Detemir Inj 1,000 UNIT/10 ML Vial SQ SCH ×2 (09:22→21:28)
--- NOTE | 2018-06-29 11:20 | P.DIET ---
Nutritional Evaluation Type of nutrition evaluation: initial Nutrition consult regarding: Tube Feeding Objective - Diagnosis Hypoxic Respiratory Failure, Pulmonary Edema - Objective % IBW: 93 (IBW = 166#) Body Weight Used for Calculations: Actual (70 kg) Energy Needs - Lower Range (kCal/kg): 25 Energy Needs - Upper Range (kCal/kg): 30 Lower Limit kCal/kg (kCals): 1,750 Upper Limit kCal/kg (kCals): 2,100 Lower Limit Protein Factor (Grams per Kg): 1.0 Upper Limit Protein Factor (Grams per Kg): 1.5 Lower Protein Needs (Protein): 70 Upper Protein Needs (Protein): 105 Dietitian Reviewed in Medical Record: Curent medications, Intake & Output, Labs , Medical history, Tube feeding Diet Order: NPO Objective Comments: Na 155, glu 283 Feeding - Current Tube Feeding Tube Feeding Product: Glucerna 1.5 Tube Feeding Method: Pump Tube Feeding Rate: 40 Assessment Assessment: Pt is at high nutrition risk 2' to his need for TFing. Current order is for Glucerna 1.5 @ 60 mls/hr goal and TF is now running at 40 mls/hr. To meet needs with Glucerna 1.5, recommend goal rate of 55 mls/hr to provide 1980 kcals, 109 gms protein and 1002 mls of free water. Some additional kcals will be provided by propofol when running (1.1 kcal/ml). Recommendations: Glucerna 1.5 @ 55 mls/hr goal Dietitian to Monitor: Lab values, Glucose level, Intake & Output, Tube feeding tolerance, Medical course
--- NOTE | 2018-06-29 12:51 | P.PNPAL ---
Reason for Visit Reason for visit: a. To assist with evaluation and management of symptoms including: dyspnea, pain, agitation b. To assist medical decision maker(s) with: better understanding of current medical conditions; weighing benefits/burdens of medical treatment options; making medical treatment decisions. Subjective Subjective/Interval History: Patient resting in bed in no acute distress, sedated on vent. Family at bedside. Appears comfortable. Opens eyes, not tracking. Not following commands. Tolerated CPAP 7 h yesterday. AT time of my eval RT is in to attempt CPAP but pt is apneic. Precedex 14 ml/hr, was 27ml/hr over night and yesterday. Fentanyl 50ml/hr. Pulmonology consult for COPD. Had left and right heart cath, ventrigulography 06/26, finding 3 vessel CAD, non ischemic dilated cardiomyopathy. Family/Friend Interactions: and family friend at bedside. Provided medical update. SHe is still considering a transfer but understands he is not stable for any transfer now. SHe will have to pay out of pocked for a transfer out of state. SHe is undecided about PEG and trach, "taking it day by day." Objective Vital Signs: Vital Signs 06/28/18 12:45 06/28/18 13:00 06/28/18 13:15 Temperature Pulse Rate 66 64 60 Respiratory Rate 10 L 8 L 8 L Blood Pressure 141/62 H 153/68 H 145/68 H Pulse Oximetry 100 100 100 06/28/18 13:30 06/28/18 13:45 06/28/18 14:00 Temperature Pulse Rate 60 66 66 Respiratory Rate 17 8 L 18 Blood Pressure 143/64 H 147/74 H 153/74 H Pulse Oximetry 100 100 100 06/28/18 14:15 06/28/18 14:30 06/28/18 14:45 Temperature Pulse Rate 67 64 60 Respiratory Rate 9 L 9 L 19 Blood Pressure 152/72 H 146/64 H 141/66 H Pulse Oximetry 100 100 100 06/28/18 15:00 06/28/18 15:15 06/28/18 15:20 Temperature Pulse Rate 60 60 60 Respiratory Rate 11 L 13 17 Blood Pressure 130/62 128/58 L Pulse Oximetry 100 100 06/28/18 15:30 06/28/18 15:45 06/28/18 16:00 Temperature 99.2 F Pulse Rate 60 60 60 Respiratory Rate 19 19 15 Blood Pressure 123/59 L 125/60 132/63 Pulse Oximetry 100 100 100 06/28/18 16:15 06/28/18 16:30 06/28/18 16:45 Temperature Pulse Rate 60 60 60 Respiratory Rate 13 12 13 Blood Pressure 138/66 136/65 138/67 Pulse Oximetry 100 100 100 06/28/18 17:00 06/28/18 17:15 06/28/18 17:30 Temperature Pulse Rate 60 65 61 Respiratory Rate 11 L 16 13 Blood Pressure 149/66 H 138/67 139/69 Pulse Oximetry 100 100 100 06/28/18 17:45 06/28/18 17:53 06/28/18 18:00 Temperature Pulse Rate 65 60 Respiratory Rate 16 16 26 H Blood Pressure 140/65 Pulse Oximetry 100 100 100 06/28/18 18:01 06/28/18 18:15 06/28/18 18:30 Temperature Pulse Rate 73 60 61 Respiratory Rate 18 18 16 Blood Pressure 132/65 154/70 H 150/67 H Pulse Oximetry 100 100 100 06/28/18 20:00 06/28/18 20:43 06/28/18 20:47 Temperature 101.2 F H Pulse Rate 60 60 Respiratory Rate 16 16 16 Blood Pressure 126/61 Pulse Oximetry 100 100 06/28/18 22:00 06/28/18 23:48 06/29/18 00:00 Temperature 102.4 F H Pulse Rate 60 60 Respiratory Rate 16 16 Blood Pressure 145/68 H Pulse Oximetry 100 100 06/29/18 01:42 06/29/18 02:00 06/29/18 03:37 Temperature Pulse Rate 60 61 Respiratory Rate 17 16 Blood Pressure Pulse Oximetry 100 06/29/18 04:00 06/29/18 04:13 06/29/18 05:45 Temperature 97.9 F Pulse Rate 60 60 Respiratory Rate 16 16 16 Blood Pressure 145/60 H 146/69 H Pulse Oximetry 100 100 100 06/29/18 06:00 06/29/18 06:15 06/29/18 06:30 Temperature Pulse Rate 60 60 60 Respiratory Rate 16 16 16 Blood Pressure 151/70 H 153/72 H 150/70 H Pulse Oximetry 100 100 100 06/29/18 06:45 06/29/18 07:00 06/29/18 07:15 Temperature Pulse Rate 60 60 60 Respiratory Rate 16 16 16 Blood Pressure 156/71 H 157/72 H 156/72 H Pulse Oximetry 100 100 100 06/29/18 07:30 06/29/18 07:45 06/29/18 08:00 Temperature 99.0 F Pulse Rate 60 60 60 Respiratory Rate 16 16 16 Blood Pressure 151/70 H 163/72 H 149/70 H Pulse Oximetry 100 100 100 06/29/18 08:15 06/29/18 08:30 06/29/18 08:40 Temperature Pulse Rate 60 60 61 Respiratory Rate 16 16 18 Blood Pressure 153/70 H 149/71 H Pulse Oximetry 100 100 06/29/18 08:45 06/29/18 08:46 06/29/18 09:00 Temperature Pulse Rate 60 60 Respiratory Rate 16 16 16 Blood Pressure 162/72 H 154/67 H Pulse Oximetry 100 100 100 06/29/18 09:15 06/29/18 09:30 06/29/18 09:45 Temperature Pulse Rate 60 60 65 Respiratory Rate 16 16 16 Blood Pressure 148/68 H 162/68 H 150/61 H Pulse Oximetry 99 99 100 06/29/18 10:00 06/29/18 10:15 06/29/18 10:35 Temperature Pulse Rate 61 60 60 Respiratory Rate 6 L 14 13 Blood Pressure 172/77 H 160/74 H 155/69 H Pulse Oximetry 100 100 100 06/29/18 10:46 06/29/18 11:00 06/29/18 11:15 Temperature Pulse Rate 60 60 60 Respiratory Rate 13 7 L 11 L Blood Pressure 162/72 H 160/72 H 163/73 H Pulse Oximetry 100 100 100 06/29/18 11:30 06/29/18 11:54 Temperature Pulse Rate 60 61 Respiratory Rate 12 20 Blood Pressure 158/72 H 174/75 H Pulse Oximetry 100 100 Intake & Output 06/28/18 06/29/18 06/29/18 18:59 06:59 18:59 Intake Total 1210 / 1210 692 / 692 350 / 350 Output Total 1400 / 1400 1450 / 1450 Balance -190 / -190 -758 / -758 350 / 350 Weight 70 kg Intake: IV 1150 / 1150 300 / 300 350 / 350 Precedex Inj 1,000 MCG In NS 500 / 500 250 / 250 Inj 240 ML @ 0.2 MCG/KG/HR 3.6 mls/hr IV.CONT TITRATE PRN Rx#: [id number] Maxipime Inj 2,000 MG In NS Inj 100 / 100 100 / 100 100 ML @ 200 mls/hr IV.SIG Q12H MONICA Rx#:[id number] KCl 20 mEq Premix Inj 20 meq In 300 / 300 200 / 200 100 / 100 100 ml @ 50 mls/hr IV.SIG Q2H PRN Rx#:[id number] fentaNYL 10 mcg/mL Premix Drip 250 / 250 2,500 mcg In 250 ml @ 50 MCG/HR 5 mls/hr IV.SIG TITRATE PRN Rx #:[id number] Tube Feeding 332 / 332 Water Bolus Amount 60 / 60 60 / 60 Output: Urine Amount (Catheter) 1400 / 1400 1450 / 1450 Indwelling Urethral Catheter 1400 / 1400 1450 / 1450 Other: # Bowel Movements 0 0 Physical Exam: CONSTITUTIONAL/GENERAL: adequately nourished, in NAD SKIN: No jaundice, rashes, or lesions. No wounds seen anteriorly. Skin temperature appropriate. Not diaphoretic. HEAD: Atraumatic. Normocephalic. EYES: Pupils constricted. No scleral icterus. No injection or drainage. Fundi not examined. ENT: Nose without bleeding or purulent drainage. NGT CARDIOVASCULAR: RRR without murmurs, gallops, or rubs. RESPIRATORY/CHEST: Symmetric, unlabored respirations. CTA GASTROINTESTINAL: Abdomen soft, nondistended. No hepato-splenomegaly, or palpable masses. No guarding. Bowel sounds present. TF running. GENITOURINARY: Without palpable bladder distension. Nevarez catheter in place. MUSCULOSKELETAL: BUE in restraints. Extremities without clubbing, cyanosis, or edema. No mottling or clubbing. bruising right 1st toe. NEUROLOGICAL: opens eyes, moves head. not tracking, not following commands. sedated on vent. much calmer today PSYCHIATRIC: unable to assess, pt sedated on vent Diagnostic Tests Laboratory: Laboratory Results - last 72 hr 06/26/18 06/26/18 06/26/18 12:19 17:58 20:16 WBC RBC Hgb Hct MCV MCH MCHC RDW Plt Count MPV Prelim Diff (Auto) Neut % (Auto) Lymph % (Auto) Stephenson % (Auto) Eos % (Auto) Baso % (Auto) Neut # (Auto) Lymph # (Auto) Stephenson # (Auto) Eos # (Auto) Baso # (Auto) WBC Differential Diff Scan Differential Comment Platelet Estimate Platelet Morphology APTT 41.2 H Sodium Potassium Chloride Carbon Dioxide Anion Gap BUN Creatinine Estimated GFR POC Glucose 226 H 278 H Random Glucose Calcium Phosphorus Magnesium Total Bilirubin AST ALT Alkaline Phosphatase Total Protein Albumin 06/27/18 06/27/18 06/27/18 00:59 04:55 04:55 WBC 4.7 RBC 4.09 L Hgb 12.6 L Hct 37.8 L MCV 92.3 MCH 30.8 MCHC 33.3 RDW 16.5 Plt Count 81 L D MPV 11.2 H Prelim Diff (Auto) Auto diff final Neut % (Auto) 89.3 H Lymph % (Auto) 3.7 L Stephenson % (Auto) 6.6 Eos % (Auto) 0.0 Baso % (Auto) 0.4 Neut # (Auto) 4.2 Lymph # (Auto) 0.2 L Stephenson # (Auto) 0.3 Eos # (Auto) 0.0 Baso # (Auto) 0.0 WBC Differential . Diff Scan Differential Comment . Platelet Estimate Platelet Morphology APTT Sodium 147 H Potassium 3.2 L Chloride 113 H Carbon Dioxide 22.9 Anion Gap 11 BUN 31 H Creatinine 1.06 Estimated GFR 69 L POC Glucose 221 H Random Glucose 196 H Calcium 8.0 L Phosphorus Magnesium Total Bilirubin AST ALT Alkaline Phosphatase Total Protein Albumin 06/27/18 06/27/18 06/27/18 05:36 13:22 18:44 WBC RBC Hgb Hct MCV MCH MCHC RDW Plt Count MPV Prelim Diff (Auto) Neut % (Auto) Lymph % (Auto) Stephenson % (Auto) Eos % (Auto) Baso % (Auto) Neut # (Auto) Lymph # (Auto) Stephenson # (Auto) Eos # (Auto) Baso # (Auto) WBC Differential Diff Scan Differential Comment Platelet Estimate Platelet Morphology APTT Sodium Potassium Chloride Carbon Dioxide Anion Gap BUN Creatinine Estimated GFR POC Glucose 219 H 259 H 105 Random Glucose Calcium Phosphorus Magnesium Total Bilirubin AST ALT Alkaline Phosphatase Total Protein Albumin 06/27/18 06/28/18 06/28/18 21:18 06:01 09:40 WBC 5.2 RBC 4.11 L Hgb 12.6 L Hct 38.3 L MCV 93.3 MCH 30.7 MCHC 32.9 RDW 16.6 Plt Count 79 L MPV 10.0 Prelim Diff (Auto) Slide review pending Neut % (Auto) 78.9 H Lymph % (Auto) 11.7 Stephenson % (Auto) 9.2 H Eos % (Auto) 0.0 Baso % (Auto) 0.2 Neut # (Auto) 4.1 Lymph # (Auto) 0.6 L Stephenson # (Auto) 0.5 Eos # (Auto) 0.0 Baso # (Auto) 0.0 WBC Differential . Diff Scan Auto diff confirmed Differential Comment . Platelet Estimate Low L Platelet Morphology Normal APTT Sodium Potassium Chloride Carbon Dioxide Anion Gap BUN Creatinine Estimated GFR POC Glucose 107 252 H Random Glucose Calcium Phosphorus Magnesium Total Bilirubin AST ALT Alkaline Phosphatase Total Protein Albumin 06/28/18 06/28/18 06/28/18 09:40 12:23 18:11 WBC RBC Hgb Hct MCV MCH MCHC RDW Plt Count MPV Prelim Diff (Auto) Neut % (Auto) Lymph % (Auto) Stephenson % (Auto) Eos % (Auto) Baso % (Auto) Neut # (Auto) Lymph # (Auto) Stephenson # (Auto) Eos # (Auto) Baso # (Auto) WBC Differential Diff Scan Differential Comment Platelet Estimate Platelet Morphology APTT Sodium 154 H Potassium 3.1 L Chloride 117 H Carbon Dioxide 27.7 Anion Gap 9 BUN 36 H Creatinine 1.27 Estimated GFR 56 L POC Glucose 176 H 182 H Random Glucose 192 H Calcium 8.3 L Phosphorus 3.1 Magnesium 2.5 Total Bilirubin 0.6 AST 106 H ALT 124 H Alkaline Phosphatase 61 Total Protein 7.1 Albumin 2.7 L 06/28/18 06/29/18 06/29/18 23:42 01:13 01:13 WBC 5.7 RBC 4.19 L Hgb 12.9 L Hct 38.4 L MCV 91.7 MCH 30.8 MCHC 33.6 RDW 16.6 Plt Count 71 L MPV 9.4 Prelim Diff (Auto) Slide review pending Neut % (Auto) 85.2 H Lymph % (Auto) 10.2 Stephenson % (Auto) 4.3 Eos % (Auto) 0.1 Baso % (Auto) 0.2 Neut # (Auto) 4.9 Lymph # (Auto) 0.6 L Stephenson # (Auto) 0.2 Eos # (Auto) 0.0 Baso # (Auto) 0.0 WBC Differential . Diff Scan Auto diff confirmed Differential Comment . Platelet Estimate Low L Platelet Morphology Normal APTT Sodium 155 H Potassium 3.3 L Chloride 119 H Carbon Dioxide 26.4 Anion Gap 10 BUN 42 H Creatinine 1.22 Estimated GFR 59 L POC Glucose 283 H Random Glucose 283 H Calcium 8.3 L Phosphorus Magnesium Total Bilirubin 0.8 AST 92 H ALT 115 H Alkaline Phosphatase 60 Total Protein 6.9 Albumin 2.7 L 06/29/18 05:40 WBC RBC Hgb Hct MCV MCH MCHC RDW Plt Count MPV Prelim Diff (Auto) Neut % (Auto) Lymph % (Auto) Stephenson % (Auto) Eos % (Auto) Baso % (Auto) Neut # (Auto) Lymph # (Auto) Stephenson # (Auto) Eos # (Auto) Baso # (Auto) WBC Differential Diff Scan Differential Comment Platelet Estimate Platelet Morphology APTT Sodium Potassium Chloride Carbon Dioxide Anion Gap BUN Creatinine Estimated GFR POC Glucose 157 H Random Glucose Calcium Phosphorus Magnesium Total Bilirubin AST ALT Alkaline Phosphatase Total Protein Albumin Result Diagrams: 06/29/18 01:13 06/29/18 01:13 Microbiology: Microbiology 06/28/18 10:09 Aerobic Blood Culture - Preliminary Blood - Peripheral No growth in 1 day Anaerobic Blood Culture - Preliminary No growth in 1 day 06/28/18 10:03 Aerobic Blood Culture - Preliminary Blood - Peripheral No growth in 1 day Anaerobic Blood Culture - Preliminary No growth in 1 day 06/28/18 10:45 Gram Stain - Final Sputum - Endotracheal 06/23/18 14:31 Aerobic Blood Culture - Final Blood - Peripheral No growth in 5 days Anaerobic Blood Culture - Final No growth in 5 days 06/23/18 11:50 Aerobic Blood Culture - Final Blood - Peripheral No growth in 5 days Anaerobic Blood Culture - Final No growth in 5 days Procedures: 06/23 reintubated 06/26 heart cath Assessment and Plan - Disease Oriented Problem List (1) Respiratory failure (2) Non-ST elevated myocardial infarction (non-STEMI) (3) Cardiomyopathy (4) PVD (peripheral vascular disease) (5) Tobacco abuse Pertinent Non-Medical Issues: Psychosocial: Pt originally from [place]. with 4 kids. 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 Spiritual: jewish. decline senior backup administrator visit. Legal: Per [place] statute is proxy decision maker. Ethical issues impacting care: none Important Contacts: Kristine Avila, - [phone] Prognosis: This is a 72-year-old male with history CHF, COPD, tobacco abuse, diabetes who presented 06[place]20 [place] has a defibrillator implanted. His baseline ejection fraction is 25% and he is now at less than 20%. Patient reintubated 06/23. Had cardiac cath 06/26 with finding 3 vessel CAD, non ischemic dilated cardiomyopathy. Unclear if he is candidate for heart transplant d/t significant COPD. He is at high risk for continued complications and decline. Code Status: Full Code Plan: - LEGAL DECISON MAKER -patient is incapacitated to make medical decisions. Per [place] statutes his proxy decision maker - CODE STATUS-full code - GOALS - Goals are aggressive, but does appear is beginning to process severity of pt's illness. and family friend at bedside. Provided medical update. SHe is still considering a transfer but understands he is not stable for any transfer now. SHe will have to pay out of pocked for a transfer out of state. SHe is undecided about PEG and trach, "taking it day by day." - SYMPTOMS - * pain - risk for pain, multifactorial. chest pain prior to admission. had been having frequent muscle cramps and spasms. has injury bilat 1st toes from hitting bed rail few days ago. appears comfortable. on fentanyl gtt 25ml/hr * dyspnea -reintubated 06/23. Recent N STEMI. EF < 20%. In the past month has been having increasing activity intolerance. s/p cardiac cath 06/26 findings 3 vessel CAD, nonischemic dilated cardiomyopathy. pulmonology consulted for significant COPD. tolerated CPAP 7 h yesterday. CV surgery consulted, not candidate at this time. steroids, scheduled DuoNeb's, ongoing CPAP trials * agitation - multlifactorial. reportedly had some agitation last night. calm on my eval. 14ml/hr precedex, 25ml/hr fentanyl. sedation per CCM - d/w MACARIO Powell - Palliative care will continue to follow during hospital course as condition evolves, to assist patient/decision-maker with understanding of medical conditions, weighing benefits/burdens of treatment options, for clarification of goals of treatment. Additionally will assist with any symptoms of palliative concern Attestation Attestation: To help prompt me to consider important information that might be impacting today's encounter and assessment, information from prior notes written by myself or my colleagues may have been "brought forward" into today's note. My signature on this note, however, is an attestation that I personally performed the exam, history, and/or decision-making noted today, and, unless otherwise indicated, the interactions with patient, family, and staff as well as the review of records all occurred today. I also attest that the listed assessment and stated plan reflect my best clinical judgment today based on the combination of historical information, prior notes, and today's exam/ interactions. When time spent is documented, it refers only to time spent today by the signer, or if indicated, combined time spent today by collaborating physician/nurse practitioner.
--- NOTE | 2018-06-29 14:59 | P.PNCC ---
Subjective Subjective Remarks/Hospital Course: Elderly male with a medical history significant for viral cardiomyopathy who was traveling on vacation from [place] with his family in [place] and today developed chest pain with worsening shortness of breath for which EMS was called by family. Patient was extremely short of breath on the arrival and hypoxic and they proceeded with endotracheal intubation and patient was transferred to the ER. In the ER it was noted that his cuff was leaking hence ET tube was exchanged by ER physician and patient was placed on mechanical ventilation. 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 He reportedly does not take any diuretic. Chest x-ray done in the ER revealed pulmonary edema. EKG revealed atrial fibrillation. Patient was accepted for admission by critical care medicine service. When I evaluated him in the ER he was sedated with propofol, orally intubated on mechanical ventilation. History was obtained by reviewing records, discussion with family as well as ER physician. Subjective 06/21: Afebrile. Hemodynamically stable. Troponin bumped 14. Started on heparin drip. Sedated with propofol and fentanyl drips. Arousable the ventilator and is very agitated will attempt to withdrawal tube. PEEP down to 5. 06/22: Sedated, orally intubated on mechanical ventilation. Gets agitated unenlightening sedation so Precedex added in addition to propofol and fentanyl. CPAP trials ongoing to decide extubation. Cardiac cath postponed by Dr. Noonan in view of questionable neurologic status. 06/23: Patient was extubated yesterday however was requiring significant amount of O2 post extubation with a facemask as well as nasal cannula. This morning around 4 AM due to increased work of breathing and hypoxia he was reintubated by Dr. Lino and placed back on mechanical ventilation. Currently he is sedated , orally intubated on mechanical ventilation. Postintubation chest x-ray shows ET tube in appropriate position and pulmonary edema pattern with perihilar infiltrates bilaterally. 06/24: Remains sedated, orally intubated on mechanical ventilation. 06/25: Remains sedated, orally intubated on mechanical ventilation. 06/26: Remains sedated, orally intubated on mechanical ventilation. Pacer backup rate increased to 60/min yesterday due to hypotension. Awaiting cardiac catheterization. 06/27: Sedated, orally intubated on mechanical ventilation. Underwent cardiac catheterization which revealed nonobstructive CAD. Patient has nonischemic dilated cardiomyopathy per discussion with Dr. Noonan. Initiated dobutamine 2.5 mics per KG per minute on 06/26. Filling pressures not elevated per Dr. Noonan on cardiac cath. 06/28: Sedated, arousable, orally intubated on mechanical ventilation. IV hydrocortisone switched to Solu-Medrol yesterday. Pulmonary consult with Dr. Villegas as patient appears to have significant COPD in addition to cardiomyopathy. Remains on dobutamine at 1.5 mics per KG per minute. Diuresing well. Does not appear to be fluid overloaded at this time. Daily CPAP trials ongoing. 06/29: Remains intubated sedated with Precedex and fentanyl. Remains on dobutamine. Patient is able to track and follow some commands. CXR appears clear today Objective Vital Signs / I&O: Vital Signs 06/28/18 14:45 06/28/18 15:00 06/28/18 15:15 Temperature Pulse Rate 60 60 60 Respiratory Rate 19 11 L 13 Blood Pressure 141/66 H 130/62 128/58 L Pulse Oximetry 100 100 100 06/28/18 15:20 06/28/18 15:30 06/28/18 15:45 Temperature Pulse Rate 60 60 60 Respiratory Rate 17 19 19 Blood Pressure 123/59 L 125/60 Pulse Oximetry 100 100 06/28/18 16:00 06/28/18 16:15 06/28/18 16:30 Temperature 99.2 F Pulse Rate 60 60 60 Respiratory Rate 15 13 12 Blood Pressure 132/63 138/66 136/65 Pulse Oximetry 100 100 100 06/28/18 16:45 06/28/18 17:00 06/28/18 17:15 Temperature Pulse Rate 60 60 65 Respiratory Rate 13 11 L 16 Blood Pressure 138/67 149/66 H 138/67 Pulse Oximetry 100 100 100 06/28/18 17:30 06/28/18 17:45 06/28/18 17:53 Temperature Pulse Rate 61 65 Respiratory Rate 13 16 16 Blood Pressure 139/69 140/65 Pulse Oximetry 100 100 100 06/28/18 18:00 06/28/18 18:01 06/28/18 18:15 Temperature Pulse Rate 60 73 60 Respiratory Rate 26 H 18 18 Blood Pressure 132/65 154/70 H Pulse Oximetry 100 100 100 06/28/18 18:30 06/28/18 20:00 06/28/18 20:43 Temperature 101.2 F H Pulse Rate 61 60 Respiratory Rate 16 16 16 Blood Pressure 150/67 H 126/61 Pulse Oximetry 100 100 100 06/28/18 20:47 06/28/18 22:00 06/28/18 23:48 Temperature Pulse Rate 60 60 Respiratory Rate 16 16 Blood Pressure Pulse Oximetry 100 06/29/18 00:00 06/29/18 01:42 06/29/18 02:00 Temperature 102.4 F H Pulse Rate 60 60 Respiratory Rate 16 17 Blood Pressure 145/68 H Pulse Oximetry 100 100 06/29/18 03:37 06/29/18 04:00 06/29/18 04:13 Temperature 97.9 F Pulse Rate 61 60 Respiratory Rate 16 16 16 Blood Pressure 145/60 H Pulse Oximetry 100 100 06/29/18 05:45 06/29/18 06:00 06/29/18 06:15 Temperature Pulse Rate 60 60 60 Respiratory Rate 16 16 16 Blood Pressure 146/69 H 151/70 H 153/72 H Pulse Oximetry 100 100 100 06/29/18 06:30 06/29/18 06:45 06/29/18 07:00 Temperature Pulse Rate 60 60 60 Respiratory Rate 16 16 16 Blood Pressure 150/70 H 156/71 H 157/72 H Pulse Oximetry 100 100 100 06/29/18 07:15 06/29/18 07:30 06/29/18 07:45 Temperature Pulse Rate 60 60 60 Respiratory Rate 16 16 16 Blood Pressure 156/72 H 151/70 H 163/72 H Pulse Oximetry 100 100 100 06/29/18 08:00 06/29/18 08:15 06/29/18 08:30 Temperature 99.0 F Pulse Rate 60 60 60 Respiratory Rate 16 16 16 Blood Pressure 149/70 H 153/70 H 149/71 H Pulse Oximetry 100 100 100 06/29/18 08:40 06/29/18 08:45 06/29/18 08:46 Temperature Pulse Rate 61 60 Respiratory Rate 18 16 16 Blood Pressure 162/72 H Pulse Oximetry 100 100 06/29/18 09:00 06/29/18 09:15 06/29/18 09:30 Temperature Pulse Rate 60 60 60 Respiratory Rate 16 16 16 Blood Pressure 154/67 H 148/68 H 162/68 H Pulse Oximetry 100 99 99 06/29/18 09:45 06/29/18 10:00 06/29/18 10:15 Temperature Pulse Rate 65 61 60 Respiratory Rate 16 6 L 14 Blood Pressure 150/61 H 172/77 H 160/74 H Pulse Oximetry 100 100 100 06/29/18 10:35 06/29/18 10:46 06/29/18 11:00 Temperature Pulse Rate 60 60 60 Respiratory Rate 13 13 7 L Blood Pressure 155/69 H 162/72 H 160/72 H Pulse Oximetry 100 100 100 06/29/18 11:15 06/29/18 11:30 06/29/18 11:54 Temperature Pulse Rate 60 60 61 Respiratory Rate 11 L 12 20 Blood Pressure 163/73 H 158/72 H 174/75 H Pulse Oximetry 100 100 100 06/29/18 14:35 Temperature Pulse Rate Respiratory Rate 20 Blood Pressure Pulse Oximetry 100 Intake & Output 06/28/18 06/29/18 06/29/18 18:59 06:59 18:59 Intake Total 1210 / 1210 692 / 692 350 / 350 Output Total 1400 / 1400 1450 / 1450 Balance -190 / -190 -758 / -758 350 / 350 Weight 70 kg Intake: IV 1150 / 1150 300 / 300 350 / 350 Precedex Inj 1,000 MCG In NS 500 / 500 250 / 250 Inj 240 ML @ 0.2 MCG/KG/HR 3.6 mls/hr IV.CONT TITRATE PRN Rx#: [id number] Maxipime Inj 2,000 MG In NS Inj 100 / 100 100 / 100 100 ML @ 200 mls/hr IV.SIG Q12H MONICA Rx#:[id number] KCl 20 mEq Premix Inj 20 meq In 300 / 300 200 / 200 100 / 100 100 ml @ 50 mls/hr IV.SIG Q2H PRN Rx#:[id number] fentaNYL 10 mcg/mL Premix Drip 250 / 250 2,500 mcg In 250 ml @ 50 MCG/HR 5 mls/hr IV.SIG TITRATE PRN Rx #:[id number] Tube Feeding 332 / 332 Water Bolus Amount 60 / 60 60 / 60 Output: Urine Amount (Catheter) 1400 / 1400 1450 / 1450 Indwelling Urethral Catheter 1400 / 1400 1450 / 1450 Other: # Bowel Movements 0 0 Result Diagrams: 06/29/18 01:13 06/29/18 01:13 Objective Remarks: GENERAL: 72 yo M orotracheally intubated SKIN: Warm and dry. Chronic venous stasis bilateral lower extremities HEAD: Atraumatic. Normocephalic. EYES: Pupils equal and round. No scleral icterus. No injection or drainage. ENT: No nasal bleeding or discharge. Orotracheally intubated NECK: Trachea midline. No JVD. CARDIOVASCULAR: S1-S2 regular, no gallop or murmur. Remains on dobutamine RESPIRATORY: Orally intubated on mechanical ventilation, good air entry bilaterally, no wheezing or crackles. Scattered rhonchi. GASTROINTESTINAL: Abdomen soft, non-tender, slightly protuberant. Hypoactive bowel sounds appreciated MUSCULOSKELETAL: Extremities with trace bilateral lower extremity edema. No obvious deformities. NEUROLOGICAL: Eyes are spontaneously open, tracking. Moves all 4 extremities spontaneously. Intermittently following commands Assessment and Plan - Assessment and Plan Plan: Assessment: Elderly male with: Acute respiratory failure on mechanical ventilation Acute decompensated CHF - systolic and dialstolic EF 40% 2016 Staph pneumonia B/L carotid Stenosis 40-59% erectile Dysfunction PAD LBBB- chronic Cardiomyopathy - Dilated NSTEMI Atrial fibrillation Diabetes mellitus Hypertension COPD History of pacemaker/defibrillator placement Diabetes mellitus type 2 uncontrolled with hyperglycemia Hyperlipidemia Glaucoma Normocytic anemia Thrombocytopenia Acute kidney injury Hypoalbuminemia Cystitis Thrombocytopenia Plan: Neuro: -Sedation with fentanyl/ precedex drips maintain RASS -1. Acetaminophen 650 every 6 hours as needed fever. Follow neuro status. -Baclofen 10 mg 3 times daily/home medications on 06/27. -Gabapentin at 300 mg every 8 hourly and gradually increase up to his home dose. , Continue brimonidine 0.15% 3 times daily. Cardiovascular: -Non-ST elevation [place]. cardiology Dr. Noonan following for decompensated CHF, history of cardiomyopathy and positive troponin. -A. fib appears rate controlled. Continue aspirin 162 mg daily. 81 mg at home , low-dose beta-ana metoprolol tartrate 12.5 mg twice daily. -No ENA inhibitor secondary to acute kidney injury.. Off heparin GTT. Holding cilostazol 50 mg twice daily. Simvastatin 20 mg daily/40 mg pravastatin substituted. -Cardiac cath per Dr. Noonan. Angiographically mild to moderate 3-vessel coronary artery disease. EF 20%. -Continue Lasix for diuresis - 20 mg IV twice daily -Started on free water replacement with 1/3 normal saline for 48 hours Pulmonary: -Continue mechanical ventilation, vent bundle, bronchodilators as needed. Peep +5. Albuterol/ipratropium every 4 hours with albuterol aerosols every 2 hours as needed dyspnea. -CPAP trials to decide extubation. Solu-Medrol 80 mg IV every 12 hourly as patient has significant COPD. Pulm consult Dr. Shayy Villegas for COPD. GI/liver: -Tolerating tube feeds. Hold for possible extubation Renal/: -Strict intake output, monitor and replete electrolytes, follow BUN/creatinine. Diuresis with Lasix ID: -Watch for fever/leukocytosis. Cefepime 2 g IV every 12 hours(06/21-06/28). Influenza a and B-. Blood cultures, urine negative. -Sputum cultures growing MSSA. Stopped Zyvox on 06/26 Heme: -Thrombocytopenia noted. Dr. Campa following. HIT screen negative. -Per my discussion with Dr. Campa, he is okay with using Plavix if needed or Aggrastat if platelet count remains over 50,000. -Heparin gtt. discontinued following cardiac cath. Start Lovenox 40 mg subcutaneous daily DVT prophylaxis once platelet this more than 80,000 Endocrine: -Holding metformin thousand milligrams twice daily, sitagliptin 100 mg daily sliding scale insulin with aspart insulin high protocol for glycemic control. -Started stress dose steroids with hydrocortisone 50 mill grams IV every 6 hourly on 06/23 due to borderline blood pressures and recent prednisone use -switched to Solu-Medrol 80 mg IV every 12 hourly on 06/27. Prophylaxis: PPI/SCDs. Off heparin GTT now so we will initiate Lovenox 40 mg subcutaneous daily for DVT prophylaxis, once platelet count is more than 80,000 Dr. Calderon discussed with Dr. Etienne Villegas on 06/27. Discussed with patient's in detail on 06/27 regarding plan of care and she voiced understanding. Condition critical Time spent on critical care excluding procedures 35 minutes.
[2018-06-29 15:51] LABS: ABG Base Excess 0.4 mmol/L (-2-2); ABG PCO2 37 mmHg (38-42); ABG PO2 146 mmHg (61-120)
[2018-06-29] MEDS: SODIUM CHLORIDE IV.CONT SCH (15:57)
[2018-06-29] MEDS: WATER FOR INJ IV.CONT SCH (15:57)
[2018-06-29] MEDS: STERILE IV.CONT SCH (15:57)
[2018-06-29] MEDS: DOBUTamine 250 MG/250 ML Premx 250 MG/250 ML BAG IV.CONT SCH ×2 (18:57)
[2018-06-29] MEDS: MethylPREDNISolone Sod Succinate Inj 40 MG/ML Vial IV.PUSH SCH (21:29)
[2018-06-30] MEDS: STERILE IV.CONT SCH ×2 (01:53→14:26)
[2018-06-30] MEDS: WATER FOR INJ IV.CONT SCH ×2 (01:53→14:26)
[2018-06-30] MEDS: SODIUM CHLORIDE IV.CONT SCH ×2 (01:53→14:26)
[2018-06-30] MEDS: fentaNYL 10 mcg/mL Premix Drip 2,500 MCG/250 ML BAG IV.SIG PRN (06:13)
[2018-06-30 06:22] LABS: Baso % (Auto) 0.3 % (0.0-2.0); Hematocrit 36.1 % (39.0-51.0); Hemoglobin 11.9 gm/dL (13.0-17.0); Lymph # (Auto) 0.6 th/mm3 (1.0-4.8); Lymph % (Auto) 7.5 % (9.0-44.0); Mean Corpuscular HGB Conc 32.9 % (32.0-36.0); Mean Corpuscular Hemoglobin 30.9 pg (27.0-34.0); Mean Platelet Volume 10.3 fL (7.0-11.0); Mono # (Auto) 0.4 th/mm3 (0.0-0.9); Mono % (Auto) 5.6 % (0.0-8.0); Neut # (Auto) 6.6 th/mm3 (1.8-7.7); Neut % (Auto) 86.6 % (16.0-70.0); Platelet Count 65 th/mm3 (150-450); Red Blood Count 3.84 mil/mm3 (4.50-5.90); Red Cell Distribution Width 16.7 % (11.6-17.2); White Blood Count 7.6 th/mm3 (4.0-11.0)
--- NOTE | 2018-06-30 06:37 | XR ---
EXAM DATE: 06/30/2018 6:33 AM EDT AGE/SEX: 72 years / Male INDICATIONS: Shortness of breath, possible pulmonary disease. CLINICAL DATA: This is the patient's subsequent encounter. Patient reports that signs and symptoms h ave been present for 1 week and indicates a pain score of Nonresponsive. MEDICAL/SURGICAL HISTORY: Non-responsive. Non-responsive. COMPARISON: C, CHEST 1V SINGLE AP, 06/29/2018. . FINDINGS: The ET tube, NG tube and left-sided pacing device appear well placed. The heart size is normal. There is minimal increased density at the left base. The right lung is clear. CONCLUSION: ET tube and NG tube are well placed. Minimal consolidation or atelectasis at the left base. Electronically signed by: Michael Goodson MD 06/30/2018 6:36 AM EDT
[2018-06-30] MEDS: Insulin NovoLOG Aspart Correctional Sugar Inj SQ SCH ×6 (06:46→20:25)
[2018-06-30 06:48] LABS: Alanine Aminotransferase 131 U/L (12-78); Albumin 2.5 g/dL (3.4-5.0); Alkaline Phosphatase 62 U/L (45-117); Anion Gap 10 meq/L (5-15); Aspartate Aminotransferase 136 U/L (15-37); Blood Urea Nitrogen 56 mg/dL (7-18); Calcium 8.3 mg/dL (8.5-10.1); Carbon Dioxide 25.3 meq/L (21.0-32.0); Chloride 120 meq/L (98-107); Glomerular Filtration Rate 53 mL/min (>89); Glucose,Random 284 mg/dL (74-106); Potassium 3.9 meq/L (3.5-5.1); Sodium 155 meq/L (136-145); Total Protein 6.6 g/dL (6.4-8.2)
--- NOTE | 2018-06-30 07:41 | P.PNCC ---
Subjective Subjective Remarks/Hospital Course: Elderly male with a medical history significant for viral cardiomyopathy who was traveling on vacation from [place] with his family in [place] and today developed chest pain with worsening shortness of breath for which EMS was called by family. Patient was extremely short of breath on the arrival and hypoxic and they proceeded with endotracheal intubation and patient was transferred to the ER. In the ER it was noted that his cuff was leaking hence ET tube was exchanged by ER physician and patient was placed on mechanical ventilation. Per his family he has a defibrillator and is followed by his draw in hand in [place] whom he saw in December of this year. He reportedly does not take any diuretic. Chest x-ray done in the ER revealed pulmonary edema. EKG revealed atrial fibrillation. Patient was accepted for admission by critical care medicine service. When I evaluated him in the ER he was sedated with propofol, orally intubated on mechanical ventilation. History was obtained by reviewing records, discussion with family as well as ER physician. Subjective 06/21: Afebrile. Hemodynamically stable. Troponin bumped 14. Started on heparin drip. Sedated with propofol and fentanyl drips. Arousable the ventilator and is very agitated will attempt to withdrawal tube. PEEP down to 5. 06/22: Sedated, orally intubated on mechanical ventilation. Gets agitated unenlightening sedation so Precedex added in addition to propofol and fentanyl. CPAP trials ongoing to decide extubation. Cardiac cath postponed by Dr. Noonan in view of questionable neurologic status. 06/23: Patient was extubated yesterday however was requiring significant amount of O2 post extubation with a facemask as well as nasal cannula. This morning around 4 AM due to increased work of breathing and hypoxia he was reintubated by Dr. Lino and placed back on mechanical ventilation. Currently he is sedated , orally intubated on mechanical ventilation. Postintubation chest x-ray shows ET tube in appropriate position and pulmonary edema pattern with perihilar infiltrates bilaterally. 06/24: Remains sedated, orally intubated on mechanical ventilation. 06/25: Remains sedated, orally intubated on mechanical ventilation. 06/26: Remains sedated, orally intubated on mechanical ventilation. Pacer backup rate increased to 60/min yesterday due to hypotension. Awaiting cardiac catheterization. 06/27: Sedated, orally intubated on mechanical ventilation. Underwent cardiac catheterization which revealed nonobstructive CAD. Patient has nonischemic dilated cardiomyopathy per discussion with Dr. Noonan. Initiated dobutamine 2.5 mics per KG per minute on 06/26. Filling pressures not elevated per Dr. Noonan on cardiac cath. 06/28: Sedated, arousable, orally intubated on mechanical ventilation. IV hydrocortisone switched to Solu-Medrol yesterday. Pulmonary consult with Dr. Villegas as patient appears to have significant COPD in addition to cardiomyopathy. Remains on dobutamine at 1.5 mics per KG per minute. Diuresing well. Does not appear to be fluid overloaded at this time. Daily CPAP trials ongoing. 06/29: Remains intubated sedated with Precedex and fentanyl. Remains on dobutamine. Patient is able to track and follow some commands. CXR appears clear today Subjective: 06/30 Remains intubated and on low dose dobutamine 1.25 mcg/kg/min. Will place on CPAP trial and plan for trial of extubation as tolerated. Has continued diuresis and CXR is now clear of edema. Objective Vital Signs / I&O: Vital Signs 06/29/18 07:45 06/29/18 08:00 06/29/18 08:15 Temperature 99.0 F Pulse Rate 60 60 60 Respiratory Rate 16 16 16 Blood Pressure 163/72 H 149/70 H 153/70 H Pulse Oximetry 100 100 100 06/29/18 08:30 06/29/18 08:40 06/29/18 08:45 Temperature Pulse Rate 60 61 Respiratory Rate 16 18 16 Blood Pressure 149/71 H Pulse Oximetry 100 100 06/29/18 08:46 06/29/18 09:00 06/29/18 09:15 Temperature Pulse Rate 60 60 60 Respiratory Rate 16 16 16 Blood Pressure 162/72 H 154/67 H 148/68 H Pulse Oximetry 100 100 99 06/29/18 09:30 06/29/18 09:45 06/29/18 10:00 Temperature Pulse Rate 60 65 61 Respiratory Rate 16 16 6 L Blood Pressure 162/68 H 150/61 H 172/77 H Pulse Oximetry 99 100 100 06/29/18 10:15 06/29/18 10:35 06/29/18 10:46 Temperature Pulse Rate 60 60 60 Respiratory Rate 14 13 13 Blood Pressure 160/74 H 155/69 H 162/72 H Pulse Oximetry 100 100 100 06/29/18 11:00 06/29/18 11:15 06/29/18 11:30 Temperature Pulse Rate 60 60 60 Respiratory Rate 7 L 11 L 12 Blood Pressure 160/72 H 163/73 H 158/72 H Pulse Oximetry 100 100 100 06/29/18 11:54 06/29/18 12:00 06/29/18 13:15 Temperature 100.6 F H Pulse Rate 61 62 62 Respiratory Rate 20 22 22 Blood Pressure 174/75 H 135/61 135/61 Pulse Oximetry 100 100 100 06/29/18 13:30 06/29/18 13:45 06/29/18 14:00 Temperature Pulse Rate 61 60 65 Respiratory Rate 23 29 H 16 Blood Pressure 138/64 148/67 H 149/66 H Pulse Oximetry 100 100 100 06/29/18 14:15 06/29/18 14:30 06/29/18 14:35 Temperature Pulse Rate 74 73 Respiratory Rate 19 20 20 Blood Pressure 148/67 H 159/63 H Pulse Oximetry 100 100 100 06/29/18 14:45 06/29/18 15:00 06/29/18 15:15 Temperature Pulse Rate 69 68 74 Respiratory Rate 20 23 21 Blood Pressure 136/55 L 139/65 140/57 L Pulse Oximetry 100 100 100 06/29/18 15:30 06/29/18 15:45 06/29/18 16:00 Temperature 98.3 F Pulse Rate 73 81 88 Respiratory Rate 21 23 22 Blood Pressure 140/65 145/65 H 149/58 H Pulse Oximetry 100 100 100 06/29/18 16:15 06/29/18 16:31 06/29/18 16:45 Temperature Pulse Rate 79 81 64 Respiratory Rate 21 22 18 Blood Pressure 119/58 L 148/66 H 134/60 Pulse Oximetry 100 100 100 06/29/18 17:00 06/29/18 17:15 06/29/18 17:30 Temperature Pulse Rate 77 77 74 Respiratory Rate 20 19 19 Blood Pressure 138/63 131/58 L 131/61 Pulse Oximetry 100 100 100 06/29/18 17:45 06/29/18 18:00 06/29/18 18:15 Temperature Pulse Rate 70 72 80 Respiratory Rate 19 23 18 Blood Pressure 134/62 124/60 120/59 L Pulse Oximetry 100 100 100 08/17/18 18:30 06/29/18 18:45 06/29/18 19:00 Temperature Pulse Rate 74 73 83 Respiratory Rate 19 19 18 Blood Pressure 121/58 L 114/54 L 111/55 L Pulse Oximetry 100 100 100 06/29/18 19:15 06/29/18 20:00 06/29/18 21:21 Temperature 99.1 F Pulse Rate 81 80 Respiratory Rate 18 20 17 Blood Pressure 111/59 L 100/54 L Pulse Oximetry 100 100 100 06/29/18 21:23 06/29/18 22:00 06/30/18 00:00 Temperature 99.9 F H Pulse Rate 86 86 74 Respiratory Rate 16 23 Blood Pressure 112/55 L Pulse Oximetry 100 06/30/18 02:00 06/30/18 02:20 06/30/18 04:00 Temperature 99.7 F H Pulse Rate 71 70 Respiratory Rate 16 16 Blood Pressure 123/57 L Pulse Oximetry 100 100 06/30/18 04:49 06/30/18 06:00 Temperature Pulse Rate 72 85 Respiratory Rate 16 Blood Pressure Pulse Oximetry 100 Intake & Output 06/29/18 06/30/18 06/30/18 18:59 06:59 18:59 Intake Total 1418 / 1418 1992.825 / 1992.825 Output Total 1600 / 1600 650 / 650 Balance -182 / -182 1342.825 / 1342.825 Weight 71.5 kg Intake: IV 700 / 700 1362.825 / 1362.825 DOBUTamine 250 MG/250 ML Premx 250 / 250 250 mg In 250 ml @ 1.25 MCG/KG/ MIN 5.888 mls/hr IV.CONT .Q24H [facility] Rx#:[id number] Precedex Inj 1,000 MCG In NS 250 / 250 Inj 240 ML @ 0.2 MCG/KG/HR 3.6 mls/hr IV.CONT TITRATE PRN Rx#: [id number] Sodium Chloride 23.4% Inj 51.3 1012.825 / 1012.825 MEQ In Sterile Water for Inj 1, 000 ML @ 100 mls/hr IV.CONT . Q10H8M [facility] Rx#:[id number] Maxipime Inj 2,000 MG In NS Inj 100 / 100 100 / 100 100 ML @ 200 mls/hr IV.SIG Q12H MONICA Rx#:[id number] KCl 20 mEq Premix Inj 20 meq In 100 / 100 100 ml @ 50 mls/hr IV.SIG Q2H PRN Rx#:[id number] fentaNYL 10 mcg/mL Premix Drip 250 / 250 2,500 mcg In 250 ml @ 50 MCG/HR 5 mls/hr IV.SIG TITRATE PRN Rx #:[id number] Tube Feeding 628 / 628 630 / 630 Water Bolus Amount 90 / 90 Output: Urine Amount (Catheter) 1600 / 1600 650 / 650 Indwelling Urethral Catheter 1600 / 1600 650 / 650 Other: # Bowel Movements 0 Result Diagrams: 06/30/18 04:31 06/30/18 04:31 Objective Remarks: GENERAL: 72 yo M orotracheally intubated. SKIN: Warm and dry. Chronic venous stasis bilateral lower extremities HEAD: Atraumatic. Normocephalic. EYES: Pupils equal and round. No scleral icterus. No injection or drainage. ENT: No nasal bleeding or discharge. Orotracheally intubated NECK: Trachea midline. No JVD. CARDIOVASCULAR: S1-S2 regular, no gallop or murmur. Remains on dobutamine RESPIRATORY: Orally intubated on mechanical ventilation, good air entry bilaterally, occasional wheeze, no crackles. GASTROINTESTINAL: Abdomen soft, non-tender, slightly protuberant. Bowel sounds present, tolerating tube feeds. MUSCULOSKELETAL: Extremities with trace bilateral lower extremity edema. No obvious deformities. NEUROLOGICAL: Eyes are spontaneously open, tracking, nods in response to questions, follows commands . Moves all 4 extremities spontaneously. 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 Acetaminophen 650 every 6 hours as needed fever. Follow neuro status. -Baclofen 10 mg 3 times daily/home medications on 06/27. -Gabapentin at 300 mg every 8 hourly and gradually increase up to his home dose. , Continue brimonidine 0.15% 3 times daily. Cardiovascular: -Non-ST elevation MD. cardiology Dr. Noonan following for decompensated CHF, history of cardiomyopathy and positive troponin. -A. fib appears rate controlled. Continue aspirin 162 mg daily. 81 mg at home , low-dose beta-ana metoprolol tartrate 12.5 mg twice daily. -No ENA inhibitor secondary to acute kidney injury.. Off heparin GTT. Holding cilostazol 50 mg twice daily. Simvastatin 20 mg daily/40 mg pravastatin substituted. -Cardiac cath per Dr. Noonan. Angiographically mild to moderate 3-vessel coronary artery disease. EF 20%. -Continue Lasix for diuresis - 20 mg IV twice daily Pulmonary: Acute respiratory failure COPD Pulmonary edema, resolved -On mechanical ventilation, vent bundle, bronchodilators as needed. Albuterol/ ipratropium every 4 hours with albuterol aerosols every 2 hours as needed dyspnea. -CPAP trials to decide extubation. Solu-Medrol 40 mg IV every 12 hourly as patient has significant COPD. Pulm consult Dr. Shayy Villegas for COPD. GI/liver: -Tolerating tube feeds, changed to Glucerna 1.5 and 55 mL/h. Hold for possible extubation FEN/Renal/: Hypernatremia -Strict intake output, monitor and replete electrolytes, follow BUN/creatinine. Diuresis with Lasix -Free water replacement with 200 mL every 4 hours. D/c 1/ NS. ID: MSSA pneumonia. -Watch for fever/leukocytosis. Remains on cefepime 2 g IV every 12 hours, 06/21 # 10 for MSSA pneumonia. Influenza a and B negative. Blood cultures, urine negative. -Sputum cultures growing MSSA. Stopped Zyvox on 06/26 Heme: -Thrombocytopenia Dr. Campa following. HIT screen negative. -Per prior intensive discussion with Dr. Campa, he is okay with using Plavix if needed or Aggrastat if platelet count remains over 50,000. -Heparin gtt. discontinued following cardiac cath. Continue Lovenox 40 mg subcutaneous daily DVT prophylaxis. Endocrine: -Holding metformin thousand milligrams twice daily, sitagliptin 100 mg daily sliding scale insulin with aspart insulin high protocol for glycemic control. -Started stress dose steroids with hydrocortisone 50 mill grams IV every 6 hourly on 06/23 due to borderline blood pressures and recent prednisone use -switched to Solu-Medrol 80 mg IV every 12 hourly on 06/27. Now on tapering dose of Solu-Medrol 40 mg IV every 12 hours. Detemir 10 units subcu every 12 hours. Received regular insulin 32 units with high dose insulin sliding scale every 6 hours.. Remains hyperglycemic; increase to every 4 hours Prophylaxis: PPI/SCDs. Continue Lovenox 40 mg subcutaneous daily for DVT prophylaxis. Dr. Calderon discussed with Dr. Etienne Villegas on 06/27. Discussed with patient's in detail on 06/27 regarding plan of care and she voiced understanding. Level 3 followup
[2018-06-30] MEDS: Baclofen 10 MG Tablet PO SCH ×3 (08:03→18:00)
[2018-06-30] MEDS: Enoxaparin Inj 40 MG/0.4 ML Syringe SQ SCH (08:03)
[2018-06-30] MEDS: Metoprolol Tartrate 25 MG Tablet PO SCH ×2 (08:03→20:32)
[2018-06-30] MEDS: Insulin Detemir Inj 1,000 UNIT/10 ML Vial SQ SCH ×2 (08:04→20:24)
[2018-06-30] MEDS: MethylPREDNISolone Sod Succinate Inj 40 MG/ML Vial IV.PUSH SCH ×2 (08:04→20:26)
[2018-06-30] MEDS: Senna/Docusate Sodium 8.6/50 MG Tablet PO SCH ×2 (08:04→20:23)
[2018-06-30 08:25] LABS: Platelet Morphology Normal (Normal); RBC Morphology Normal (Normal)
[2018-06-30] MEDS: Brimonidine 0.15% Opth Drops 5 ML Bottle EACH EYE SCH ×3 (08:29→18:00)
[2018-06-30] MEDS: Hypromellose 0.3% Opth Gel 10 GM Bottle EACH EYE SCH ×2 (08:29→20:25)
--- NOTE | 2018-06-30 09:51 | P.PNCA ---
Subjective Interval history: restrained, agitated, does not appear lucid Physical Exam Vital signs: Vital Signs 06/29/18 10:00 06/29/18 10:15 06/29/18 10:35 Temperature Pulse Rate 61 60 60 Respiratory Rate 6 L 14 13 Blood Pressure 172/77 H 160/74 H 155/69 H Pulse Oximetry 100 100 100 06/29/18 10:46 06/29/18 11:00 06/29/18 11:15 Temperature Pulse Rate 60 60 60 Respiratory Rate 13 7 L 11 L Blood Pressure 162/72 H 160/72 H 163/73 H Pulse Oximetry 100 100 100 06/29/18 11:30 06/29/18 11:54 06/29/18 12:00 Temperature 100.6 F H Pulse Rate 60 61 62 Respiratory Rate 12 20 22 Blood Pressure 158/72 H 174/75 H 135/61 Pulse Oximetry 100 100 100 06/29/18 13:15 06/29/18 13:30 06/29/18 13:45 Temperature Pulse Rate 62 61 60 Respiratory Rate 22 23 29 H Blood Pressure 135/61 138/64 148/67 H Pulse Oximetry 100 100 100 06/29/18 14:00 06/29/18 14:15 06/29/18 14:30 Temperature Pulse Rate 65 74 73 Respiratory Rate 16 19 20 Blood Pressure 149/66 H 148/67 H 159/63 H Pulse Oximetry 100 100 100 06/29/18 14:35 06/29/18 14:45 06/29/18 15:00 Temperature Pulse Rate 69 68 Respiratory Rate 20 20 23 Blood Pressure 136/55 L 139/65 Pulse Oximetry 100 100 100 06/29/18 15:15 06/29/18 15:30 06/29/18 15:45 Temperature Pulse Rate 74 73 81 Respiratory Rate 21 21 23 Blood Pressure 140/57 L 140/65 145/65 H Pulse Oximetry 100 100 100 06/29/18 16:00 06/29/18 16:15 06/29/18 16:31 Temperature 98.3 F Pulse Rate 88 79 81 Respiratory Rate 22 21 22 Blood Pressure 149/58 H 119/58 L 148/66 H Pulse Oximetry 100 100 100 06/29/18 16:45 06/29/18 17:00 06/29/18 17:15 Temperature Pulse Rate 64 77 77 Respiratory Rate 18 20 19 Blood Pressure 134/60 138/63 131/58 L Pulse Oximetry 100 100 100 06/29/18 17:30 06/29/18 17:45 06/29/18 18:00 Temperature Pulse Rate 74 70 72 Respiratory Rate 19 19 23 Blood Pressure 131/61 134/62 124/60 Pulse Oximetry 100 100 100 06/29/18 18:15 06/29/18 18:30 06/29/18 18:45 Temperature Pulse Rate 80 74 73 Respiratory Rate 18 19 19 Blood Pressure 120/59 L 121/58 L 114/54 L Pulse Oximetry 100 100 100 06/29/18 19:00 06/29/18 19:15 06/29/18 20:00 Temperature 99.1 F Pulse Rate 83 81 80 Respiratory Rate 18 18 20 Blood Pressure 111/55 L 111/59 L 100/54 L Pulse Oximetry 100 100 100 06/29/18 21:21 06/29/18 21:23 06/29/18 22:00 Temperature Pulse Rate 86 86 Respiratory Rate 17 16 Blood Pressure Pulse Oximetry 100 06/30/18 00:00 06/30/18 02:00 06/30/18 02:20 Temperature 99.9 F H Pulse Rate 74 71 Respiratory Rate 23 16 Blood Pressure 112/55 L Pulse Oximetry 100 100 06/30/18 03:30 06/30/18 03:45 06/30/18 04:00 Temperature 99.7 F H Pulse Rate 74 70 Respiratory Rate 16 16 Blood Pressure 127/66 129/60 123/57 L Pulse Oximetry 100 100 06/30/18 04:15 06/30/18 04:30 06/30/18 04:45 Temperature Pulse Rate 72 79 84 Respiratory Rate 16 16 17 Blood Pressure 115/62 131/60 128/61 Pulse Oximetry 100 100 100 06/30/18 04:49 06/30/18 05:00 06/30/18 05:15 Temperature Pulse Rate 72 80 78 Respiratory Rate 16 16 16 Blood Pressure 121/60 121/61 Pulse Oximetry 100 100 100 06/30/18 05:30 06/30/18 05:45 06/30/18 06:00 Temperature Pulse Rate 88 81 85 Respiratory Rate 16 18 21 Blood Pressure 132/67 148/64 H 136/68 Pulse Oximetry 100 100 100 06/30/18 06:15 06/30/18 06:30 08/18/18 06:45 Temperature Pulse Rate 112 H 89 90 Respiratory Rate 19 16 16 Blood Pressure 172/79 H 139/62 122/66 Pulse Oximetry 100 100 100 06/30/18 07:00 06/30/18 07:01 06/30/18 07:15 Temperature Pulse Rate 86 88 84 Respiratory Rate 17 17 15 Blood Pressure 136/65 139/61 Pulse Oximetry 100 100 100 06/30/18 07:30 06/30/18 07:45 06/30/18 08:00 Temperature 99.0 F Pulse Rate 90 80 97 H Respiratory Rate 21 16 28 H Blood Pressure 131/66 135/62 115/68 Pulse Oximetry 100 100 98 06/30/18 08:08 06/30/18 08:15 06/30/18 08:30 Temperature Pulse Rate 122 H 109 H Respiratory Rate 26 H 25 H 23 Blood Pressure 142/66 H 131/62 Pulse Oximetry 100 100 100 06/30/18 08:45 06/30/18 09:00 06/30/18 09:10 Temperature Pulse Rate 99 H 93 H 92 H Respiratory Rate 22 24 23 Blood Pressure 141/64 H 116/59 L Pulse Oximetry 100 99 06/30/18 09:15 06/30/18 09:30 Temperature Pulse Rate 91 H 94 H Respiratory Rate 23 23 Blood Pressure 120/58 L 122/62 Pulse Oximetry 100 100 Intake & Output 06/29/18 06/30/18 06/30/18 18:59 06:59 18:59 Intake Total 1418 / 1418 1992.825 / 1992.825 Output Total 1600 / 1600 650 / 650 Balance -182 / -182 1342.825 / 1342.825 Weight 71.5 kg Intake: IV 700 / 700 1362.825 / 1362.825 DOBUTamine 250 MG/250 ML Premx 250 / 250 250 mg In 250 ml @ 1.25 MCG/KG/ MIN 5.888 mls/hr IV.CONT .Q24H [facility] Rx#:[id number] Precedex Inj 1,000 MCG In NS 250 / 250 Inj 240 ML @ 0.2 MCG/KG/HR 3.6 mls/hr IV.CONT TITRATE PRN Rx#: [id number] Sodium Chloride 23.4% Inj 51.3 1012.825 / 1012.825 MEQ In Sterile Water for Inj 1, 000 ML @ 100 mls/hr IV.CONT . Q10H8M [facility] Rx#:[id number] Maxipime Inj 2,000 MG In NS Inj 100 / 100 100 / 100 100 ML @ 200 mls/hr IV.SIG Q12H MON[facility] Rx#:[id number] KCl 20 mEq Premix Inj 20 meq In 100 / 100 100 ml @ 50 mls/hr IV.SIG Q2H PRN Rx#:[id number] fentaNYL 10 mcg/mL Premix Drip 250 / 250 2,500 mcg In 250 ml @ 50 MCG/HR 5 mls/hr IV.SIG TITRATE PRN Rx #:[id number] Tube Feeding 628 / 628 630 / 630 Water Bolus Amount 90 / 90 Output: Urine Amount (Catheter) 1600 / 1600 650 / 650 Indwelling Urethral Catheter 1600 / 1600 650 / 650 Other: # Bowel Movements 0 - Urinary Catheter Management Indwelling Urethral Catheter Cath placed during this visit: yes Reason for continuing: Other continuation reason Insertion date: 06/20/18 Insertion time: 21:24 Assessment and Plan - Assessment (1) Cardiomyopathy Code(s): I42.9 - Cardiomyopathy, unspecified Status: Acute (2) Cardiomyopathy Code(s): I42.9 - Cardiomyopathy, unspecified Status: Acute (3) PVD (peripheral vascular disease) Code(s): I73.9 - Peripheral vascular disease, unspecified Status: Acute (4) PVD (peripheral vascular disease) Code(s): I73.9 - Peripheral vascular disease, unspecified Status: Acute (5) Tobacco abuse Code(s): Z72.0 - Tobacco use Status: Acute (6) Respiratory failure Code(s): J96.90 - Respiratory failure, unspecified, unspecified whether with hypoxia or hypercapnia Status: Acute (7) Non-ST elevated myocardial infarction (non-STEMI) Code(s): I21.4 - Non-ST elevation (NSTEMI) myocardial infarction Status: Acute (8) Pulmonary edema cardiac cause Code(s): I50.1 - Left ventricular failure, unspecified Status: Acute - Plan 1.) NICM - end stage, euvolemic, trial of dobutamine to facilitate extubation, bridge to transfer for heart transplant eval, per cm note, refuses in state transfer, requesting transfer to [facility], d/w Dr Solis; beta ana and hellen held due to need for inotropic and bp support, he has hypernatremia 2.) CAD - nonobstructive, continue aspirin, pravachol 3.) Encephalopathy - moderate per EEG on sedation, neuro following 4.) d/w case with and daughter at the bedside 06/30/18 5.) Respiratory failure - he is euvolemic, appears to be due to pulmonary and/ or encephalopathic etilology; possible weaning attempt by Dr De La Rosa today (6) Respiratory failure Qualifiers: Chronicity: acute Respiratory failure complication: hypoxia Qualified Code(s ): J96.01 - Acute respiratory failure with hypoxia
[2018-06-30 13:09] LABS: Calcium 8.4 mg/dL (8.5-10.1); Carbon Dioxide 24.2 meq/L (21.0-32.0); Potassium 3.8 meq/L (3.5-5.1)
[2018-06-30] MEDS: Dexmedetomidine Inj 1,000 MCG in Sodium Chlor 0.9% Inj 240 ML IV.CONT PRN (14:19)
[2018-06-30] MEDS: QUEtiapine 25 MG Tablet NG/OG SCH (14:36)
--- NOTE | 2018-06-30 15:43 | P.PN ---
Subjective Interval history: sedated on vent support trach in place Physical Exam Vital signs: Vital Signs 06/29/18 15:45 06/29/18 16:00 06/29/18 16:15 Temperature 98.3 F Pulse Rate 81 88 79 Respiratory Rate 23 22 21 Blood Pressure 145/65 H 149/58 H 119/58 L Pulse Oximetry 100 100 100 06/29/18 16:31 06/29/18 16:45 06/29/18 17:00 Temperature Pulse Rate 81 64 77 Respiratory Rate 22 18 20 Blood Pressure 148/66 H 134/60 138/63 Pulse Oximetry 100 100 100 06/29/18 17:15 06/29/18 17:30 06/29/18 17:45 Temperature Pulse Rate 77 74 70 Respiratory Rate 19 19 19 Blood Pressure 131/58 L 131/61 134/62 Pulse Oximetry 100 100 100 06/29/18 18:00 06/29/18 18:15 06/29/18 18:30 Temperature Pulse Rate 72 80 74 Respiratory Rate 23 18 19 Blood Pressure 124/60 120/59 L 121/58 L Pulse Oximetry 100 100 100 06/29/18 18:45 06/29/18 19:00 06/29/18 19:15 Temperature Pulse Rate 73 83 81 Respiratory Rate 19 18 18 Blood Pressure 114/54 L 111/55 L 111/59 L Pulse Oximetry 100 100 100 06/29/18 20:00 06/29/18 21:21 06/29/18 21:23 Temperature 99.1 F Pulse Rate 80 86 Respiratory Rate 20 17 16 Blood Pressure 100/54 L Pulse Oximetry 100 100 06/29/18 22:00 06/30/18 00:00 06/30/18 02:00 Temperature 99.9 F H Pulse Rate 86 74 71 Respiratory Rate 23 Blood Pressure 112/55 L Pulse Oximetry 100 06/30/18 02:20 06/30/18 03:30 06/30/18 03:45 Temperature Pulse Rate 74 Respiratory Rate 16 16 Blood Pressure 127/66 129/60 Pulse Oximetry 100 100 06/30/18 04:00 06/30/18 04:15 06/30/18 04:30 Temperature 99.7 F H Pulse Rate 70 72 79 Respiratory Rate 16 16 16 Blood Pressure 123/57 L 115/62 131/60 Pulse Oximetry 100 100 100 06/30/18 04:45 06/30/18 04:49 08/18/18 05:00 Temperature Pulse Rate 84 72 80 Respiratory Rate 17 16 16 Blood Pressure 128/61 121/60 Pulse Oximetry 100 100 100 06/30/18 05:15 06/30/18 05:30 06/30/18 05:45 Temperature Pulse Rate 78 88 81 Respiratory Rate 16 16 18 Blood Pressure 121/61 132/67 148/64 H Pulse Oximetry 100 100 100 06/30/18 06:00 06/30/18 06:15 06/30/18 06:30 Temperature Pulse Rate 85 112 H 89 Respiratory Rate 21 19 16 Blood Pressure 136/68 172/79 H 139/62 Pulse Oximetry 100 100 100 06/30/18 06:45 06/30/18 07:00 06/30/18 07:01 Temperature Pulse Rate 90 86 88 Respiratory Rate 16 17 17 Blood Pressure 122/66 136/65 Pulse Oximetry 100 100 100 06/30/18 07:15 06/30/18 07:30 06/30/18 07:45 Temperature Pulse Rate 84 90 80 Respiratory Rate 15 21 16 Blood Pressure 139/61 131/66 135/62 Pulse Oximetry 100 100 100 06/30/18 08:00 06/30/18 08:08 06/30/18 08:15 Temperature 99.0 F Pulse Rate 97 H 122 H Respiratory Rate 28 H 26 H 25 H Blood Pressure 115/68 142/66 H Pulse Oximetry 98 100 100 06/30/18 08:30 06/30/18 08:45 06/30/18 09:00 Temperature Pulse Rate 109 H 99 H 93 H Respiratory Rate 23 22 24 Blood Pressure 131/62 141/64 H 116/59 L Pulse Oximetry 100 100 99 06/30/18 09:10 06/30/18 09:15 06/30/18 09:30 Temperature Pulse Rate 92 H 91 H 94 H Respiratory Rate 23 23 23 Blood Pressure 120/58 L 122/62 Pulse Oximetry 100 100 06/30/18 09:45 06/30/18 10:00 06/30/18 10:15 Temperature Pulse Rate 92 H 92 H 90 Respiratory Rate 24 20 22 Blood Pressure 127/58 L 117/59 L 106/64 Pulse Oximetry 100 100 100 06/30/18 10:30 06/30/18 10:45 06/30/18 11:00 Temperature Pulse Rate 92 H 89 86 Respiratory Rate 20 20 19 Blood Pressure 110/56 L 112/56 L 109/57 L Pulse Oximetry 100 100 100 06/30/18 11:15 06/30/18 11:30 06/30/18 11:45 Temperature Pulse Rate 87 85 86 Respiratory Rate 20 20 19 Blood Pressure 114/54 L 113/58 L 110/55 L Pulse Oximetry 100 100 100 06/30/18 12:00 06/30/18 12:15 06/30/18 12:30 Temperature 97.7 F Pulse Rate 90 89 96 H Respiratory Rate 23 20 21 Blood Pressure 141/58 H 110/52 L 113/54 L Pulse Oximetry 100 100 100 06/30/18 14:00 06/30/18 15:06 Temperature Pulse Rate 80 79 Respiratory Rate 20 Blood Pressure Pulse Oximetry 100 Intake & Output 06/29/18 06/30/18 06/30/18 18:59 06:59 18:59 Intake Total 1668 / 1668 1992.825 / 9593.493 7211 / 1125 Output Total 1600 / 1600 650 / 650 Balance 68 / 68 1342.825 / 0985.821 7723 / 1125 Weight 71.5 kg Intake: IV 950 / 950 1362.825 / 3271.141 9442 / 1125 DOBUTamine 250 MG/250 ML Premx 250 / 250 250 mg In 250 ml @ 1.25 MCG/KG/ MIN 5.888 mls/hr IV.CONT .Q24H [facility] Rx#:[id number] Precedex Inj 1,000 MCG In NS 500 / 500 Inj 240 ML @ 0.2 MCG/KG/HR 3.6 mls/hr IV.CONT TITRATE PRN Rx#: [id number] Sodium Chloride 23.4% Inj 51.3 1012.825 / 0250.066 9183 / 1025 MEQ In Sterile Water for Inj 1, 000 ML @ 100 mls/hr IV.CONT . Q10H8M [facility] Rx#:[id number] Maxipime Inj 2,000 MG In NS Inj 100 / 100 100 / 100 100 / 100 100 ML @ 200 mls/hr IV.SIG Q12H [facility] Rx#:[id number] KCl 20 mEq Premix Inj 20 meq In 100 / 100 100 ml @ 50 mls/hr IV.SIG Q2H PRN Rx#:[id number] fentaNYL 10 mcg/mL Premix Drip 250 / 250 2,500 mcg In 250 ml @ 50 MCG/HR 5 mls/hr IV.SIG TITRATE PRN Rx #:[id number] Tube Feeding 628 / 628 630 / 630 Water Bolus Amount 90 / 90 Output: Urine Amount (Catheter) 1600 / 1600 650 / 650 Indwelling Urethral Catheter 1600 / 1600 650 / 650 Other: # Bowel Movements 0 Narrative: arouses to voice very restless in bed - Constitutional no acute distress - Routine HEENT Exam Head: Present: normocephalic Eye: Present: EOMI, PERRL ENT: Present: mucous membranes moist - Routine Neck Exam Present: supple - Routine Cardiovascular Exam Present: RRR, S1, S2 - Routine Abdominal Exam Present: soft, normoactive bowel sounds - Urinary Catheter Management Indwelling Urethral Catheter Cath placed during this visit: yes Reason for continuing: Other continuation reason Insertion date: 06/20/18 Insertion time: 21:24 Results - Labs CBC & Chem 7: 06/30/18 04:31 06/30/18 11:40 Laboratory Results - last 24 hr 06/29/18 06/29/18 06/30/18 15:27 18:54 00:21 WBC RBC Hgb Hct MCV MCH MCHC RDW Plt Count MPV Prelim Diff (Auto) Neut % (Auto) Lymph % (Auto) [place] % (Auto) Eos % (Auto) Baso % (Auto) Neut # (Auto) Lymph # (Auto) [place] # (Auto) Eos # (Auto) Baso # (Auto) WBC Differential Diff Scan Differential Comment Platelet Estimate Platelet Morphology RBC Morphology Puncture Site Left radial Patient Temperature 98.6 O2 Saturation 97 ABG pH 7.43 H ABG pCO2 37 L ABG pO2 146 H ABG HCO3 24 ABG O2 Content 16.0 ABG Base Excess 0.4 ABG Methemoglobin 0.8 Carlos Test Present Hemoglobin 11.5 L Carboxyhemoglobin 1.0 O2 Delivery Device Ventilator Vent Setting Ps 5/epap 5 Inspired O2 35 Critical Value No Sodium Potassium Chloride Carbon Dioxide Anion Gap BUN Creatinine Estimated GFR POC Glucose 157 H 195 H Random Glucose Calcium Total Bilirubin AST ALT Alkaline Phosphatase Total Protein Albumin 06/30/18 06/30/18 06/30/18 04:31 04:31 06:32 WBC 7.6 RBC 3.84 L Hgb 11.9 L Hct 36.1 L MCV 94.0 MCH 30.9 MCHC 32.9 RDW 16.7 Plt Count 65 L MPV 10.3 Prelim Diff (Auto) Slide review pending Neut % (Auto) 86.6 H Lymph % (Auto) 7.5 L [place] % (Auto) 5.6 Eos % (Auto) 0.0 Baso % (Auto) 0.3 Neut # (Auto) 6.6 Lymph # (Auto) 0.6 L [place] # (Auto) 0.4 Eos # (Auto) 0.0 Baso # (Auto) 0.0 WBC Differential . Diff Scan Auto diff confirmed Differential Comment . Platelet Estimate Low L Platelet Morphology Normal RBC Morphology Normal Puncture Site Patient Temperature O2 Saturation ABG pH ABG pCO2 ABG pO2 ABG HCO3 ABG O2 Content ABG Base Excess ABG Methemoglobin Carlos Test Hemoglobin Carboxyhemoglobin O2 Delivery Device Vent Setting Inspired O2 Critical Value Sodium 155 H Potassium 3.9 Chloride 120 H Carbon Dioxide 25.3 Anion Gap 10 BUN 56 H Creatinine 1.33 H Estimated GFR 53 L POC Glucose 326 H Random Glucose 284 H Calcium 8.3 L Total Bilirubin 0.7 AST 136 H ALT 131 H Alkaline Phosphatase 62 Total Protein 6.6 Albumin 2.5 L 06/30/18 06/30/18 06/30/18 08:12 11:39 11:40 WBC RBC Hgb Hct MCV MCH MCHC RDW Plt Count MPV Prelim Diff (Auto) Neut % (Auto) Lymph % (Auto) [place] % (Auto) Eos % (Auto) Baso % (Auto) Neut # (Auto) Lymph # (Auto) [place] # (Auto) Eos # (Auto) Baso # (Auto) WBC Differential Diff Scan Differential Comment Platelet Estimate Platelet Morphology RBC Morphology Puncture Site Patient Temperature O2 Saturation ABG pH ABG pCO2 ABG pO2 ABG HCO3 ABG O2 Content ABG Base Excess ABG Methemoglobin Carlos Test Hemoglobin Carboxyhemoglobin O2 Delivery Device Vent Setting Inspired O2 Critical Value Sodium 155 H Potassium 3.8 Chloride 120 H Carbon Dioxide 24.2 Anion Gap 11 BUN 61 H Creatinine 1.26 Estimated GFR 57 L POC Glucose 299 H 156 H Random Glucose 156 H D Calcium 8.4 L Total Bilirubin AST ALT Alkaline Phosphatase Total Protein Albumin Microbiology 06/28/18 10:45 Sputum - Endotracheal Gram Stain - Final 06/28/18 10:45 Sputum - Endotracheal Sputum Culture - Preliminary Staphylococcus aureus 06/28/18 10:09 Blood - Peripheral Aerobic Blood Culture - Preliminary No growth in 2 days 06/28/18 10:09 Blood - Peripheral Anaerobic Blood Culture - Preliminary No growth in 2 days 06/28/18 10:03 Blood - Peripheral Aerobic Blood Culture - Preliminary No growth in 2 days 06/28/18 10:03 Blood - Peripheral Anaerobic Blood Culture - Preliminary No growth in 2 days - Imaging Impressions Chest X-Ray 06/30/18 06:00 CONCLUSION: ET tube and NG tube are well placed. Minimal consolidation or atelectasis at the left base.
--- NOTE | 2018-06-30 15:44 | P.PN ---
Physical Exam Vital signs: Vital Signs 06/29/18 15:45 06/29/18 16:00 06/29/18 16:15 Temperature 98.3 F Pulse Rate 81 88 79 Respiratory Rate 23 22 21 Blood Pressure 145/65 H 149/58 H 119/58 L Pulse Oximetry 100 100 100 06/29/18 16:31 06/29/18 16:45 06/29/18 17:00 Temperature Pulse Rate 81 64 77 Respiratory Rate 22 18 20 Blood Pressure 148/66 H 134/60 138/63 Pulse Oximetry 100 100 100 06/29/18 17:15 06/29/18 17:30 06/29/18 17:45 Temperature Pulse Rate 77 74 70 Respiratory Rate 19 19 19 Blood Pressure 131/58 L 131/61 134/62 Pulse Oximetry 100 100 100 06/29/18 18:00 06/29/18 18:15 06/29/18 18:30 Temperature Pulse Rate 72 80 74 Respiratory Rate 23 18 19 Blood Pressure 124/60 120/59 L 121/58 L Pulse Oximetry 100 100 100 06/29/18 18:45 06/29/18 19:00 06/29/18 19:15 Temperature Pulse Rate 73 83 81 Respiratory Rate 19 18 18 Blood Pressure 114/54 L 111/55 L 111/59 L Pulse Oximetry 100 100 100 06/29/18 20:00 06/29/18 21:21 06/29/18 21:23 Temperature 99.1 F Pulse Rate 80 86 Respiratory Rate 20 17 16 Blood Pressure 100/54 L Pulse Oximetry 100 100 06/29/18 22:00 06/30/18 00:00 06/30/18 02:00 Temperature 99.9 F H Pulse Rate 86 74 71 Respiratory Rate 23 Blood Pressure 112/55 L Pulse Oximetry 100 06/30/18 02:20 06/30/18 03:30 06/30/18 03:45 Temperature Pulse Rate 74 Respiratory Rate 16 16 Blood Pressure 127/66 129/60 Pulse Oximetry 100 100 06/30/18 04:00 06/30/18 04:15 06/30/18 04:30 Temperature 99.7 F H Pulse Rate 70 72 79 Respiratory Rate 16 16 16 Blood Pressure 123/57 L 115/62 131/60 Pulse Oximetry 100 100 100 06/30/18 04:45 06/30/18 04:49 06/30/18 05:00 Temperature Pulse Rate 84 72 80 Respiratory Rate 17 16 16 Blood Pressure 128/61 121/60 Pulse Oximetry 100 100 100 06/30/18 05:15 06/30/18 05:30 06/30/18 05:45 Temperature Pulse Rate 78 88 81 Respiratory Rate 16 16 18 Blood Pressure 121/61 132/67 148/64 H Pulse Oximetry 100 100 100 06/30/18 06:00 06/30/18 06:15 06/30/18 06:30 Temperature Pulse Rate 85 112 H 89 Respiratory Rate 21 19 16 Blood Pressure 136/68 172/79 H 139/62 Pulse Oximetry 100 100 100 06/30/18 06:45 06/30/18 07:00 06/30/18 07:01 Temperature Pulse Rate 90 86 88 Respiratory Rate 16 17 17 Blood Pressure 122/66 136/65 Pulse Oximetry 100 100 100 06/30/18 07:15 06/30/18 07:30 06/30/18 07:45 Temperature Pulse Rate 84 90 80 Respiratory Rate 15 21 16 Blood Pressure 139/61 131/66 135/62 Pulse Oximetry 100 100 100 06/30/18 08:00 06/30/18 08:08 06/30/18 08:15 Temperature 99.0 F Pulse Rate 97 H 122 H Respiratory Rate 28 H 26 H 25 H Blood Pressure 115/68 142/66 H Pulse Oximetry 98 100 100 06/30/18 08:30 06/30/18 08:45 06/30/18 09:00 Temperature Pulse Rate 109 H 99 H 93 H Respiratory Rate 23 22 24 Blood Pressure 131/62 141/64 H 116/59 L Pulse Oximetry 100 100 99 06/30/18 09:10 06/30/18 09:15 06/30/18 09:30 Temperature Pulse Rate 92 H 91 H 94 H Respiratory Rate 23 23 23 Blood Pressure 120/58 L 122/62 Pulse Oximetry 100 100 06/30/18 09:45 06/30/18 10:00 06/30/18 10:15 Temperature Pulse Rate 92 H 92 H 90 Respiratory Rate 24 20 22 Blood Pressure 127/58 L 117/59 L 106/64 Pulse Oximetry 100 100 100 06/30/18 10:30 06/30/18 10:45 06/30/18 11:00 Temperature Pulse Rate 92 H 89 86 Respiratory Rate 20 20 19 Blood Pressure 110/56 L 112/56 L 109/57 L Pulse Oximetry 100 100 100 06/30/18 11:15 06/30/18 11:30 06/30/18 11:45 Temperature Pulse Rate 87 85 86 Respiratory Rate 20 20 19 Blood Pressure 114/54 L 113/58 L 110/55 L Pulse Oximetry 100 100 100 06/30/18 12:00 06/30/18 12:15 06/30/18 12:30 Temperature 97.7 F Pulse Rate 90 89 96 H Respiratory Rate 23 20 21 Blood Pressure 141/58 H 110/52 L 113/54 L Pulse Oximetry 100 100 100 06/30/18 14:00 06/30/18 15:06 Temperature Pulse Rate 80 79 Respiratory Rate 20 Blood Pressure Pulse Oximetry 100 Intake & Output 06/29/18 06/30/18 06/30/18 18:59 06:59 18:59 Intake Total 1668 / 1668 1992.825 / 1622.168 2627 / 1125 Output Total 1600 / 1600 650 / 650 Balance 68 / 68 1342.825 / 4017.601 7631 / 1125 Weight 71.5 kg Intake: IV 950 / 950 1362.825 / 0378.614 3461 / 1125 DOBUTamine 250 MG/250 ML Premx 250 / 250 250 mg In 250 ml @ 1.25 MCG/KG/ MIN 5.888 mls/hr IV.CONT .Q24H [facility] Rx#:[id number] Precedex Inj 1,000 MCG In NS 500 / 500 Inj 240 ML @ 0.2 MCG/KG/HR 3.6 mls/hr IV.CONT TITRATE PRN Rx#: [id number] Sodium Chloride 23.4% Inj 51.3 1012.825 / 8310.426 2892 / 1025 MEQ In Sterile Water for Inj 1, 000 ML @ 100 mls/hr IV.CONT . Q10H8M [facility] Rx#:[id number] Maxipime Inj 2,000 MG In NS Inj 100 / 100 100 / 100 100 / 100 100 ML @ 200 mls/hr IV.SIG Q12H [facility] Rx#:[id number] KCl 20 mEq Premix Inj 20 meq In 100 / 100 100 ml @ 50 mls/hr IV.SIG Q2H [facility] Rx#:[id number] fentaNYL 10 mcg/mL Premix Drip 250 / 250 2,500 mcg In 250 ml @ 50 MCG/HR 5 mls/hr IV.SIG TITRATE PRN Rx #:[id number] Tube Feeding 628 / 628 630 / 630 Water Bolus Amount 90 / 90 Output: Urine Amount (Catheter) 1600 / 1600 650 / 650 Indwelling Urethral Catheter 1600 / 1600 650 / 650 Other: # Bowel Movements 0 - Urinary Catheter Management Indwelling Urethral Catheter Cath placed during this visit: yes Reason for continuing: Other continuation reason Insertion date: 06/20/18 Insertion time: 21:24 Results - Labs CBC & Chem 7: 06/30/18 04:31 06/30/18 11:40 Laboratory Results - last 24 hr 06/29/18 06/29/18 06/30/18 15:27 18:54 00:21 WBC RBC Hgb Hct MCV MCH MCHC RDW Plt Count MPV Prelim Diff (Auto) Neut % (Auto) Lymph % (Auto) [place] % (Auto) Eos % (Auto) Baso % (Auto) Neut # (Auto) Lymph # (Auto) [place] # (Auto) Eos # (Auto) Baso # (Auto) WBC Differential Diff Scan Differential Comment Platelet Estimate Platelet Morphology RBC Morphology Puncture Site Left radial Patient Temperature 98.6 O2 Saturation 97 ABG pH 7.43 H ABG pCO2 37 L ABG pO2 146 H ABG HCO3 24 ABG O2 Content 16.0 ABG Base Excess 0.4 ABG Methemoglobin 0.8 Carlos Test Present Hemoglobin 11.5 L Carboxyhemoglobin 1.0 O2 Delivery Device Ventilator Vent Setting Ps 5/epap 5 Inspired O2 35 Critical Value No Sodium Potassium Chloride Carbon Dioxide Anion Gap BUN Creatinine Estimated GFR POC Glucose 157 H 195 H Random Glucose Calcium Total Bilirubin AST ALT Alkaline Phosphatase Total Protein Albumin 06/30/18 06/30/18 06/30/18 04:31 04:31 06:32 WBC 7.6 RBC 3.84 L Hgb 11.9 L Hct 36.1 L MCV 94.0 MCH 30.9 MCHC 32.9 RDW 16.7 Plt Count 65 L MPV 10.3 Prelim Diff (Auto) Slide review pending Neut % (Auto) 86.6 H Lymph % (Auto) 7.5 L [place] % (Auto) 5.6 Eos % (Auto) 0.0 Baso % (Auto) 0.3 Neut # (Auto) 6.6 Lymph # (Auto) 0.6 L [place] # (Auto) 0.4 Eos # (Auto) 0.0 Baso # (Auto) 0.0 WBC Differential . Diff Scan Auto diff confirmed Differential Comment . Platelet Estimate Low L Platelet Morphology Normal RBC Morphology Normal Puncture Site Patient Temperature O2 Saturation ABG pH ABG pCO2 ABG pO2 ABG HCO3 ABG O2 Content ABG Base Excess ABG Methemoglobin Carlos Test Hemoglobin Carboxyhemoglobin O2 Delivery Device Vent Setting Inspired O2 Critical Value Sodium 155 H Potassium 3.9 Chloride 120 H Carbon Dioxide 25.3 Anion Gap 10 BUN 56 H Creatinine 1.33 H Estimated GFR 53 L POC Glucose 326 H Random Glucose 284 H Calcium 8.3 L Total Bilirubin 0.7 AST 136 H ALT 131 H Alkaline Phosphatase 62 Total Protein 6.6 Albumin 2.5 L 06/30/18 06/30/18 06/30/18 08:12 11:39 11:40 WBC RBC Hgb Hct MCV MCH MCHC RDW Plt Count MPV Prelim Diff (Auto) Neut % (Auto) Lymph % (Auto) [place] % (Auto) Eos % (Auto) Baso % (Auto) Neut # (Auto) Lymph # (Auto) [place] # (Auto) Eos # (Auto) Baso # (Auto) WBC Differential Diff Scan Differential Comment Platelet Estimate Platelet Morphology RBC Morphology Puncture Site Patient Temperature O2 Saturation ABG pH ABG pCO2 ABG pO2 ABG HCO3 ABG O2 Content ABG Base Excess ABG Methemoglobin Carlos Test Hemoglobin Carboxyhemoglobin O2 Delivery Device Vent Setting Inspired O2 Critical Value Sodium 155 H Potassium 3.8 Chloride 120 H Carbon Dioxide 24.2 Anion Gap 11 BUN 61 H Creatinine 1.26 Estimated GFR 57 L POC Glucose 299 H 156 H Random Glucose 156 H D Calcium 8.4 L Total Bilirubin AST ALT Alkaline Phosphatase Total Protein Albumin Microbiology 06/28/18 10:45 Sputum - Endotracheal Gram Stain - Final 06/28/18 10:45 Sputum - Endotracheal Sputum Culture - Preliminary Staphylococcus aureus 06/28/18 10:09 Blood - Peripheral Aerobic Blood Culture - Preliminary No growth in 2 days 06/28/18 10:09 Blood - Peripheral Anaerobic Blood Culture - Preliminary No growth in 2 days 06/28/18 10:03 Blood - Peripheral Aerobic Blood Culture - Preliminary No growth in 2 days 06/28/18 10:03 Blood - Peripheral Anaerobic Blood Culture - Preliminary No growth in 2 days - Imaging Impressions Chest X-Ray 06/30/18 06:00 CONCLUSION: ET tube and NG tube are well placed. Minimal consolidation or atelectasis at the left base. Assessment and Plan - Plan respiratory failure copd chf sepsis plan vent support antibx therapy for chf bronchodilators wean as tolerated
[2018-07-01] MEDS: Insulin NovoLOG Aspart Correctional Sugar Inj SQ SCH ×6 (00:08→20:33)
[2018-07-01] MEDS: WATER FOR INJ IV.CONT SCH ×2 (00:09→10:32)
[2018-07-01] MEDS: SODIUM CHLORIDE IV.CONT SCH ×2 (00:09→10:32)
[2018-07-01] MEDS: STERILE IV.CONT SCH ×2 (00:09→10:32)
[2018-07-01] MEDS: Dexmedetomidine Inj 1,000 MCG in Sodium Chlor 0.9% Inj 240 ML IV.CONT PRN ×2 (00:42→10:02)
[2018-07-01 04:27] LABS: Baso % (Auto) 0.1 % (0.0-2.0); Hematocrit 36.4 % (39.0-51.0); Hemoglobin 11.9 gm/dL (13.0-17.0); Lymph # (Auto) 0.6 th/mm3 (1.0-4.8); Lymph % (Auto) 10.5 % (9.0-44.0); Mean Corpuscular HGB Conc 32.7 % (32.0-36.0); Mean Corpuscular Hemoglobin 30.8 pg (27.0-34.0); Mean Corpuscular Volume 94.2 fL (80.0-100.0); Mean Platelet Volume 9.4 fL (7.0-11.0); Mono # (Auto) 0.3 th/mm3 (0.0-0.9); Mono % (Auto) 5.5 % (0.0-8.0); Neut # (Auto) 4.9 th/mm3 (1.8-7.7); Neut % (Auto) 83.9 % (16.0-70.0); Platelet Count 58 th/mm3 (150-450); Red Blood Count 3.87 mil/mm3 (4.50-5.90); Red Cell Distribution Width 16.6 % (11.6-17.2); White Blood Count 5.9 th/mm3 (4.0-11.0)
[2018-07-01 05:40] LABS: Platelet Morphology Normal (Normal)
[2018-07-01] MEDS: MethylPREDNISolone Sod Succinate Inj 40 MG/ML Vial IV.PUSH SCH ×2 (09:58→20:34)
[2018-07-01] MEDS: Enoxaparin Inj 40 MG/0.4 ML Syringe SQ SCH (09:58)
[2018-07-01] MEDS: Baclofen 10 MG Tablet PO SCH ×3 (09:58→17:21)
[2018-07-01] MEDS: Senna/Docusate Sodium 8.6/50 MG Tablet PO SCH ×2 (09:59→20:35)
[2018-07-01] MEDS: Metoprolol Tartrate 25 MG Tablet PO SCH ×2 (09:59→21:37)
[2018-07-01] MEDS: Hypromellose 0.3% Opth Gel 10 GM Bottle EACH EYE SCH ×2 (10:00→20:34)
[2018-07-01] MEDS: Brimonidine 0.15% Opth Drops 5 ML Bottle EACH EYE SCH ×3 (10:00→17:23)
[2018-07-01] MEDS: Insulin Detemir Inj 1,000 UNIT/10 ML Vial SQ SCH ×2 (10:01→20:34)
--- NOTE | 2018-07-01 10:07 | P.PNCA ---
Subjective Interval history: alert, not following commands, on precedex, intubated Physical Exam Vital signs: Vital Signs 06/30/18 10:15 06/30/18 10:30 06/30/18 10:45 Temperature Pulse Rate 90 92 H 89 Respiratory Rate 22 20 20 Blood Pressure 106/64 110/56 L 112/56 L Pulse Oximetry 100 100 100 06/30/18 11:00 06/30/18 11:15 06/30/18 11:30 Temperature Pulse Rate 86 87 85 Respiratory Rate 19 20 20 Blood Pressure 109/57 L 114/54 L 113/58 L Pulse Oximetry 100 100 100 06/30/18 11:45 06/30/18 12:00 06/30/18 12:15 Temperature 97.7 F Pulse Rate 86 90 89 Respiratory Rate 19 23 20 Blood Pressure 110/55 L 141/58 H 110/52 L Pulse Oximetry 100 100 100 06/30/18 12:30 06/30/18 12:45 06/30/18 13:00 Temperature Pulse Rate 96 H 91 H 94 H Respiratory Rate 21 23 25 H Blood Pressure 113/54 L 116/59 L 117/59 L Pulse Oximetry 100 100 100 06/30/18 13:15 06/30/18 13:30 06/30/18 13:46 Temperature Pulse Rate 89 95 H 92 H Respiratory Rate 19 27 H 21 Blood Pressure 128/58 L 144/65 H 126/57 L Pulse Oximetry 100 100 100 06/30/18 14:00 06/30/18 14:19 06/30/18 14:30 Temperature Pulse Rate 89 88 93 H Respiratory Rate 18 24 24 Blood Pressure 112/58 L 114/54 L 123/60 Pulse Oximetry 100 100 100 06/30/18 14:45 06/30/18 15:00 06/30/18 15:06 Temperature Pulse Rate 81 80 79 Respiratory Rate 22 21 20 Blood Pressure 126/56 L 115/58 L Pulse Oximetry 100 100 100 06/30/18 15:15 06/30/18 15:30 06/30/18 15:45 Temperature Pulse Rate 75 80 74 Respiratory Rate 21 21 21 Blood Pressure 114/56 L 124/62 119/56 L Pulse Oximetry 100 100 100 06/30/18 16:00 06/30/18 16:15 06/30/18 18:00 Temperature 99.2 F Pulse Rate 76 79 75 Respiratory Rate 19 21 Blood Pressure 123/64 132/62 Pulse Oximetry 100 100 06/30/18 20:00 06/30/18 21:04 06/30/18 21:05 Temperature 98.8 F Pulse Rate 85 70 Respiratory Rate 21 18 16 Blood Pressure 118/62 Pulse Oximetry 100 100 06/30/18 22:00 06/30/18 23:24 07/01/18 00:00 Temperature 98.8 F Pulse Rate 69 70 Respiratory Rate 16 16 Blood Pressure 120/62 Pulse Oximetry 100 100 07/01/18 02:00 07/01/18 03:51 07/01/18 03:53 Temperature Pulse Rate 70 90 Respiratory Rate 16 16 Blood Pressure Pulse Oximetry 100 07/01/18 04:00 07/01/18 06:00 Temperature 98.9 F Pulse Rate 69 80 Respiratory Rate 16 Blood Pressure 125/60 Pulse Oximetry 100 Intake & Output 06/30/18 07/01/18 07/01/18 18:59 06:59 18:59 Intake Total 2310 / 2310 2492 / 2492 Output Total 1000 / 1000 1400 / 1400 Balance 1310 / 1310 1092 / 1092 Weight 71.5 kg Intake: IV 1125 / 1125 1350 / 1350 Precedex Inj 1,000 MCG In NS 250 / 250 Inj 240 ML @ 0.2 MCG/KG/HR 3.6 mls/hr IV.CONT TITRATE PRN Rx#: [id number] Sodium Chloride 23.4% Inj 51.3 1025 / 1025 1000 / 1000 MEQ In Sterile Water for Inj 1, 000 ML @ 100 mls/hr IV.CONT . Q10H8M [facility] Rx#:[id number] Maxipime Inj 2,000 MG In NS Inj 100 / 100 100 / 100 100 ML @ 200 mls/hr IV.SIG Q12H [facility] Rx#:[id number] Tube Feeding 585 / 585 542 / 542 Water Bolus Amount 600 / 600 600 / 600 Output: Urine Amount (Catheter) 1000 / 1000 1400 / 1400 Indwelling Urethral Catheter 1000 / 1000 1400 / 1400 - Urinary Catheter Management Indwelling Urethral Catheter Cath placed during this visit: yes Reason for continuing: Other continuation reason Insertion date: 06/20/18 Insertion time: 21:24 Assessment and Plan - Assessment (1) Cardiomyopathy Code(s): I42.9 - Cardiomyopathy, unspecified Status: Acute (2) Cardiomyopathy Code(s): I42.9 - Cardiomyopathy, unspecified Status: Acute (3) PVD (peripheral vascular disease) Code(s): I73.9 - Peripheral vascular disease, unspecified Status: Acute (4) PVD (peripheral vascular disease) Code(s): I73.9 - Peripheral vascular disease, unspecified Status: Acute (5) Tobacco abuse Code(s): Z72.0 - Tobacco use Status: Acute (6) Respiratory failure Code(s): J96.90 - Respiratory failure, unspecified, unspecified whether with hypoxia or hypercapnia Status: Acute (7) Non-ST elevated myocardial infarction (non-STEMI) Code(s): I21.4 - Non-ST elevation (NSTEMI) myocardial infarction Status: Acute (8) Pulmonary edema cardiac cause Code(s): I50.1 - Left ventricular failure, unspecified Status: Acute - Plan 1.) NICM - end stage, euvolemic, trial of dobutamine to facilitate extubation, bridge to transfer for heart transplant eval, per cm note, refuses in state transfer, requesting transfer to [facility], d/w Dr Solis; beta ana and hellen held due to need for inotropic and bp support, he has hypernatremia 2.) CAD - nonobstructive, continue aspirin, pravachol 3.) Encephalopathy - moderate per EEG on sedation, neuro following 4.) d/w case with and nurse at the bedside 07/01/18 5.) Respiratory failure - he is euvolemic, appears to be due to pulmonary and/ or encephalopathic etilology; possible weaning attempt by Dr De La Rosa today (6) Respiratory failure Qualifiers: Chronicity: acute Respiratory failure complication: hypoxia Qualified Code(s ): J96.01 - Acute respiratory failure with hypoxia
[2018-07-01] MEDS: QUEtiapine 25 MG Tablet NG/OG SCH ×2 (10:31→13:03)
[2018-07-01] MEDS: DOBUTamine 250 MG/250 ML Premx 250 MG/250 ML BAG IV.CONT SCH ×2 (12:58→13:03)
[2018-07-01 14:29] LABS: Calcium 8.2 mg/dL (8.5-10.1); Carbon Dioxide 27.5 meq/L (21.0-32.0); Potassium 4.4 meq/L (3.5-5.1)
--- NOTE | 2018-07-01 15:41 | P.PN ---
Subjective Interval history: on the vent opens eyes does not follow commands Physical Exam Vital signs: Vital Signs 06/30/18 15:45 06/30/18 16:00 06/30/18 16:15 Temperature 99.2 F Pulse Rate 74 76 79 Respiratory Rate 21 19 21 Blood Pressure 119/56 L 123/64 132/62 Pulse Oximetry 100 100 100 06/30/18 18:00 06/30/18 20:00 06/30/18 21:04 Temperature 98.8 F Pulse Rate 75 85 Respiratory Rate 21 18 Blood Pressure 118/62 Pulse Oximetry 100 100 06/30/18 21:05 06/30/18 22:00 06/30/18 23:24 Temperature Pulse Rate 70 69 Respiratory Rate 16 16 Blood Pressure Pulse Oximetry 100 07/01/18 00:00 07/01/18 02:00 07/01/18 03:51 Temperature 98.8 F Pulse Rate 70 70 Respiratory Rate 16 16 Blood Pressure 120/62 Pulse Oximetry 100 100 07/01/18 03:53 07/01/18 04:00 07/01/18 06:00 Temperature 98.9 F Pulse Rate 90 69 80 Respiratory Rate 16 16 Blood Pressure 125/60 Pulse Oximetry 100 07/01/18 08:00 07/01/18 10:00 07/01/18 10:53 Temperature 99.3 F Pulse Rate 77 81 Respiratory Rate 16 19 Blood Pressure 137/60 Pulse Oximetry 100 100 07/01/18 12:00 07/01/18 14:00 07/01/18 14:58 Temperature 99.1 F Pulse Rate 70 71 69 Respiratory Rate 22 23 Blood Pressure 123/63 Pulse Oximetry 100 99 Intake & Output 06/30/18 07/01/18 07/01/18 18:59 06:59 18:59 Intake Total 2310 / 2310 2492 / 2492 1612.825 / 1612.825 Output Total 1000 / 1000 1400 / 1400 Balance 1310 / 1310 1092 / 1092 1612.825 / 1612.825 Weight 71.5 kg Intake: IV 1125 / 1125 1350 / 1350 1612.825 / 1612.825 DOBUTamine 250 MG/250 ML Premx 250 / 250 250 mg In 250 ml @ 1.25 MCG/KG/ MIN 5.888 mls/hr IV.CONT .Q24H [facility] Rx#:[id number] Precedex Inj 1,000 MCG In NS 250 / 250 250 / 250 Inj 240 ML @ 0.2 MCG/KG/HR 3.6 mls/hr IV.CONT TITRATE PRN Rx#: [id number] Sodium Chloride 23.4% Inj 51.3 1025 / 1025 1000 / 1000 1012.825 / 1012.825 MEQ In Sterile Water for Inj 1, 000 ML @ 100 mls/hr IV.CONT . Q10H8M [facility] Rx#:[id number] Maxipime Inj 2,000 MG In NS Inj 100 / 100 100 / 100 100 / 100 100 ML @ 200 mls/hr IV.SIG Q12H [facility] Rx#:[id number] Tube Feeding 585 / 585 542 / 542 Water Bolus Amount 600 / 600 600 / 600 Output: Urine Amount (Catheter) 1000 / 1000 1400 / 1400 Indwelling Urethral Catheter 1000 / 1000 1400 / 1400 Narrative: arouses to voice very restless in bed - Urinary Catheter Management Indwelling Urethral Catheter Cath placed during this visit: yes Reason for continuing: Other continuation reason Insertion date: 06/20/18 Insertion time: 21:24 Results - Labs CBC & Chem 7: 07/01/18 03:54 07/01/18 13:33 Laboratory Results - last 24 hr 06/30/18 06/30/18 06/30/18 16:28 20:11 23:53 WBC RBC Hgb Hct MCV MCH MCHC RDW Plt Count MPV Prelim Diff (Auto) Neut % (Auto) Lymph % (Auto) Williamson % (Auto) Eos % (Auto) Baso % (Auto) Neut # (Auto) Lymph # (Auto) Williamson # (Auto) Eos # (Auto) Baso # (Auto) WBC Differential Diff Scan Differential Comment Platelet Estimate Platelet Morphology Sodium Potassium Chloride Carbon Dioxide Anion Gap BUN Creatinine Estimated GFR POC Glucose 124 H 229 H 202 H Random Glucose Calcium Ammonia 07/01/18 07/01/18 07/01/18 03:46 03:54 07:51 WBC 5.9 RBC 3.87 L Hgb 11.9 L Hct 36.4 L MCV 94.2 MCH 30.8 MCHC 32.7 RDW 16.6 Plt Count 58 L MPV 9.4 Prelim Diff (Auto) Slide review pending Neut % (Auto) 83.9 H Lymph % (Auto) 10.5 Williamson % (Auto) 5.5 Eos % (Auto) 0.0 Baso % (Auto) 0.1 Neut # (Auto) 4.9 Lymph # (Auto) 0.6 L Williamson # (Auto) 0.3 Eos # (Auto) 0.0 Baso # (Auto) 0.0 WBC Differential . Diff Scan Auto diff confirmed Differential Comment . Platelet Estimate Low L Platelet Morphology Normal Sodium Potassium Chloride Carbon Dioxide Anion Gap BUN Creatinine Estimated GFR POC Glucose 228 H 131 H Random Glucose Calcium Ammonia 07/01/18 07/01/18 07/01/18 12:14 13:33 13:33 WBC RBC Hgb Hct MCV MCH MCHC RDW Plt Count MPV Prelim Diff (Auto) Neut % (Auto) Lymph % (Auto) Williamson % (Auto) Eos % (Auto) Baso % (Auto) Neut # (Auto) Lymph # (Auto) Williamson # (Auto) Eos # (Auto) Baso # (Auto) WBC Differential Diff Scan Differential Comment Platelet Estimate Platelet Morphology Sodium 145 D Potassium 4.4 Chloride 110 H D Carbon Dioxide 27.5 Anion Gap 8 BUN 53 H Creatinine 1.29 Estimated GFR 55 L POC Glucose 244 H Random Glucose 320 H D Calcium 8.2 L Ammonia 37 H Microbiology 06/28/18 10:09 Blood - Peripheral Aerobic Blood Culture - Preliminary No growth in 3 days 06/28/18 10:09 Blood - Peripheral Anaerobic Blood Culture - Preliminary No growth in 3 days 06/28/18 10:03 Blood - Peripheral Aerobic Blood Culture - Preliminary No growth in 3 days 06/28/18 10:03 Blood - Peripheral Anaerobic Blood Culture - Preliminary No growth in 3 days 06/28/18 10:45 Sputum - Endotracheal Gram Stain - Final 06/28/18 10:45 Sputum - Endotracheal Sputum Culture - Final Staphylococcus aureus Assessment and Plan - Plan respiratory failure copd chf sepsis plan vent support antibx therapy for chf bronchodilators wean as tolerated
--- NOTE | 2018-07-01 23:44 | P.PNCC ---
Subjective Subjective Remarks/Hospital Course: Elderly male with a medical history significant for viral cardiomyopathy who was traveling on vacation from [place] with his family in [place] and today developed chest pain with worsening shortness of breath for which EMS was called by family. Patient was extremely short of breath on the arrival and hypoxic and they proceeded with endotracheal intubation and patient was transferred to the ER. In the ER it was noted that his cuff was leaking hence ET tube was exchanged by ER physician and patient was placed on mechanical ventilation. 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 He reportedly does not take any diuretic. Chest x-ray done in the ER revealed pulmonary edema. EKG revealed atrial fibrillation. Patient was accepted for admission by critical care medicine service. When I evaluated him in the ER he was sedated with propofol, orally intubated on mechanical ventilation. History was obtained by reviewing records, discussion with family as well as ER physician. Subjective 06/21: Afebrile. Hemodynamically stable. Troponin bumped 14. Started on heparin drip. Sedated with propofol and fentanyl drips. Arousable the ventilator and is very agitated will attempt to withdrawal tube. PEEP down to 5. 06/22: Sedated, orally intubated on mechanical ventilation. Gets agitated unenlightening sedation so Precedex added in addition to propofol and fentanyl. CPAP trials ongoing to decide extubation. Cardiac cath postponed by Dr. Noonan in view of questionable neurologic status. 06/23: Patient was extubated yesterday however was requiring significant amount of O2 post extubation with a facemask as well as nasal cannula. This morning around 4 AM due to increased work of breathing and hypoxia he was reintubated by Dr. Lino and placed back on mechanical ventilation. Currently he is sedated , orally intubated on mechanical ventilation. Postintubation chest x-ray shows ET tube in appropriate position and pulmonary edema pattern with perihilar infiltrates bilaterally. 06/24: Remains sedated, orally intubated on mechanical ventilation. 06/25: Remains sedated, orally intubated on mechanical ventilation. 06/26: Remains sedated, orally intubated on mechanical ventilation. Pacer backup rate increased to 60/min yesterday due to hypotension. Awaiting cardiac catheterization. 06/27: Sedated, orally intubated on mechanical ventilation. Underwent cardiac catheterization which revealed nonobstructive CAD. Patient has nonischemic dilated cardiomyopathy per discussion with Dr. Noonan. Initiated dobutamine 2.5 mics per KG per minute on 06/26. Filling pressures not elevated per Dr. Noonan on cardiac cath. 06/28: Sedated, arousable, orally intubated on mechanical ventilation. IV hydrocortisone switched to Solu-Medrol yesterday. Pulmonary consult with Dr. Villegas as patient appears to have significant COPD in addition to cardiomyopathy. Remains on dobutamine at 1.5 mics per KG per minute. Diuresing well. Does not appear to be fluid overloaded at this time. Daily CPAP trials ongoing. 06/29: Remains intubated sedated with Precedex and fentanyl. Remains on dobutamine. Patient is able to track and follow some commands. CXR appears clear today 06/30 Remains intubated and on low dose dobutamine 1.25 mcg/kg/min. Will place on sedation vacation and CPAP trial and plan for trial of extubation as tolerated. Has continued diuresis and CXR is now clear of edema. Subjective: 07/01 Tolerates CPAP. Mental status currently seems limiting factor to extubation but there is some improvement compared with yesterday. Now on seroquel, off fentanyl drip ( states opioids have historically caused delirium for him). On precedex as needed, weaning down. Yesterday he was staring ahead, roving head movements, wild-eyed expressions as if hallucinating , very weak in all extremities. Today he does NOT follow commands but by this evening he does track, moves extremities vigorously and purposefully, strong cough, lifts head up off bed. Appears he will soon be appropriate for trial of extubation but will wait in effort to optimize to full ability, as failure of extubation trial will necessitate trach (currently day #9 following reintubation) is aware. Objective Vital Signs / I&O: Vital Signs 07/01/18 00:00 07/01/18 02:00 07/01/18 03:51 Temperature 98.8 F Pulse Rate 70 70 Respiratory Rate 16 16 Blood Pressure 120/62 Pulse Oximetry 100 100 07/01/18 03:53 07/01/18 04:00 07/01/18 06:00 Temperature 98.9 F Pulse Rate 90 69 80 Respiratory Rate 16 16 Blood Pressure 125/60 Pulse Oximetry 100 07/01/18 08:00 07/01/18 10:00 07/01/18 10:53 Temperature 99.3 F Pulse Rate 77 81 Respiratory Rate 16 19 Blood Pressure 137/60 Pulse Oximetry 100 100 07/01/18 12:00 07/01/18 14:00 07/01/18 14:58 Temperature 99.1 F Pulse Rate 70 71 69 Respiratory Rate 22 23 Blood Pressure 123/63 Pulse Oximetry 100 99 07/01/18 16:00 07/01/18 18:00 07/01/18 20:00 Temperature 98.9 F 98.8 F Pulse Rate 84 105 H 87 Respiratory Rate 21 16 Blood Pressure 111/53 L 97/54 L Pulse Oximetry 99 99 07/01/18 21:22 07/01/18 21:24 07/01/18 22:00 Temperature Pulse Rate 79 79 Respiratory Rate 16 16 Blood Pressure Pulse Oximetry 100 Intake & Output 07/01/18 07/01/18 07/02/18 06:59 18:59 06:59 Intake Total 2492 / 2492 2842.825 / 2842.825 500 / 500 Output Total 1400 / 1400 1950 / 1950 Balance 1092 / 1092 892.825 / 892.825 500 / 500 Weight 71.5 kg Intake: IV 1350 / 1350 1612.825 / 1612.825 500 / 500 DOBUTamine 250 MG/250 ML Premx 250 / 250 250 mg In 250 ml @ 1.25 MCG/KG/ MIN 5.888 mls/hr IV.CONT .Q24H [facility] Rx#:[id number] Precedex Inj 1,000 MCG In NS 250 / 250 250 / 250 Inj 240 ML @ 0.2 MCG/KG/HR 3.6 mls/hr IV.CONT TITRATE PRN Rx#: [id number] Sodium Chloride 23.4% Inj 51.3 1000 / 1000 1012.825 / 1012.825 500 / 500 MEQ In Sterile Water for Inj 1, 000 ML @ 100 mls/hr IV.CONT . Q10H8M [facility] Rx#:[id number] Maxipime Inj 2,000 MG In NS Inj 100 / 100 100 / 100 100 ML @ 200 mls/hr IV.SIG Q12H [facility] Rx#:[id number] Tube Feeding 542 / 542 630 / 630 Water Bolus Amount 600 / 600 600 / 600 Output: Urine Amount (Catheter) 1399 / 1400 1949 Indwelling Urethral Catheter 1399 Other: Date of Last Bowel Movement 07/01/18 # Bowel Movements 2 Result Diagrams: 07/01/18 03:54 07/01/18 13:33 Objective Remarks: GENERAL: 72 yo M orotracheally intubated. SKIN: Warm and dry. Chronic venous stasis bilateral lower extremities HEAD: Atraumatic. Normocephalic. EYES: Pupils equal and round. No scleral icterus. No injection or drainage. ENT: No nasal bleeding or discharge. Orotracheally intubated NECK: Trachea midline. No JVD. CARDIOVASCULAR: S1-S2 regular, no gallop or murmur. Remains on dobutamine RESPIRATORY: Orally intubated on mechanical ventilation, good air entry bilaterally, occasional wheeze, no crackles. GASTROINTESTINAL: Abdomen soft, non-tender, slightly protuberant. Bowel sounds present, tolerating tube feeds. MUSCULOSKELETAL: Extremities with trace bilateral lower extremity edema. No obvious deformities. NEUROLOGICAL: Eyes are spontaneously open, tracking, resists nurses effort at oral care, moves all extremities spontaneously. Does not follow commands. Assessment and Plan - Assessment and Plan Plan: Assessment: Elderly male with: Acute respiratory failure on mechanical ventilation Acute decompensated CHF - systolic and dialstolic EF 40% 2017 Staph pneumonia B/L carotid Stenosis 40-59% erectile Dysfunction PAD LBBB- chronic Cardiomyopathy - Dilated NSTEMI Atrial fibrillation Diabetes mellitus Hypertension COPD History of pacemaker/defibrillator placement Diabetes mellitus type 2 uncontrolled with hyperglycemia Hyperlipidemia Glaucoma Normocytic anemia Thrombocytopenia Acute kidney injury Hypoalbuminemia Cystitis Thrombocytopenia Plan: Neuro: -Seroquel 50 bid. Precedex drips maintain RASS -1 to 0. Acetaminophen 650 every 6 hours as needed fever. Follow neuro status. -Baclofen 20 mg 3 times daily/home medications on 06/27. -Gabapentin at 300 mg every 8 hourly has been on hold. Continue brimonidine 0.15% 3 times daily. Cardiovascular: -Non-ST elevation MA. cardiology Dr. Noonan following for decompensated CHF, history of cardiomyopathy and positive troponin. -A. fib appears rate controlled. Continue aspirin 162 mg daily. 81 mg at home , low-dose beta-ana metoprolol tartrate 12.5 mg twice daily. -No ENA inhibitor secondary to acute kidney injury.. Off heparin GTT. Holding cilostazol 50 mg twice daily. Simvastatin 20 mg daily/40 mg pravastatin substituted. -Cardiac cath per Dr. Noonan. Angiographically mild to moderate 3-vessel coronary artery disease. EF 20%. -Increase Lasix 40 mg IV q12. Pulmonary: Acute respiratory failure COPD Pulmonary edema, resolved -On mechanical ventilation, vent bundle, bronchodilators as needed. Albuterol/ ipratropium every 4 hours with albuterol aerosols every 2 hours as needed dyspnea. -Daily CPAP trials. Solu-Medrol 40 mg IV every 12 hourly as patient has significant COPD. Pulm consult Dr. Shayy Villegas for COPD. GI/liver: -Tolerating tube feeds, changed to Glucerna 1.5 and 55 mL/h. FEN/Renal/: Hypernatremia -Strict intake output, monitor and replete electrolytes, follow BUN/creatinine. Diuresis with Lasix -Decrease Free water replacement with 200 mL every 8 hours. ID: MSSA pneumonia. Remains on cefepime 2 g IV every 12 hours, 06/21 #10 for MSSA pneumonia, clinically improving. Influenza a and B negative. Blood cultures, urine negative. -Sputum cultures growing MSSA. Stopped Zyvox on 06/26 Heme: -Thrombocytopenia Dr. Campa following. HIT screen negative. -Heparin gtt. discontinued following cardiac cath. Continue Lovenox 40 mg subcutaneous daily DVT prophylaxis. Endocrine: -Holding metformin thousand milligrams twice daily, sitagliptin 100 mg daily sliding scale insulin with aspart insulin high protocol for glycemic control. -Started stress dose steroids with hydrocortisone 50 mill grams IV every 6 hourly on 06/23 due to borderline blood pressures and recent prednisone use -switched to Solu-Medrol 80 mg IV every 12 hourly on 06/27. Now on tapering dose of Solu-Medrol 40 mg IV every 12 hours. Detemir 10 units subcu every 12 hours. Regular insulin, high dose every 4 hours Prophylaxis: PPI/SCDs. Continue Lovenox 40 mg subcutaneous daily for DVT prophylaxis. Dr. Calderon discussed with Dr. Etienne Villegas on 06/27. Patient's updated at bedside. Level 3 followup
[2018-07-02] MEDS: Insulin NovoLOG Aspart Correctional Sugar Inj SQ SCH ×6 (00:16→20:54)
[2018-07-02] MEDS: Dexmedetomidine Inj 1,000 MCG in Sodium Chlor 0.9% Inj 240 ML IV.CONT PRN ×2 (01:48→14:06)
[2018-07-02 03:58] LABS: Hematocrit 34.9 % (39.0-51.0); Hemoglobin 11.5 gm/dL (13.0-17.0); Mean Corpuscular HGB Conc 33.1 % (32.0-36.0); Mean Corpuscular Volume 93.7 fL (80.0-100.0); Mean Platelet Volume 9.8 fL (7.0-11.0); Platelet Count 52 th/mm3 (150-450); Red Blood Count 3.72 mil/mm3 (4.50-5.90); White Blood Count 5.5 th/mm3 (4.0-11.0)
[2018-07-02 04:13] LABS: Calcium 8.5 mg/dL (8.5-10.1); Carbon Dioxide 29.1 meq/L (21.0-32.0); Potassium 3.9 meq/L (3.5-5.1)
[2018-07-02] MEDS: Enoxaparin Inj 40 MG/0.4 ML Syringe SQ SCH (09:39)
[2018-07-02] MEDS: Senna/Docusate Sodium 8.6/50 MG Tablet PO SCH ×2 (09:45→20:55)
[2018-07-02] MEDS: Metoprolol Tartrate 25 MG Tablet PO SCH ×2 (09:45→20:55)
[2018-07-02] MEDS: Brimonidine 0.15% Opth Drops 5 ML Bottle EACH EYE SCH ×3 (09:45→19:05)
[2018-07-02] MEDS: Hypromellose 0.3% Opth Gel 10 GM Bottle EACH EYE SCH (09:46)
[2018-07-02] MEDS: Insulin Detemir Inj 1,000 UNIT/10 ML Vial SQ SCH ×2 (09:46→20:54)
[2018-07-02] MEDS: Baclofen 10 MG Tablet PO SCH ×3 (09:46→19:06)
[2018-07-02] MEDS: MethylPREDNISolone Sod Succinate Inj 40 MG/ML Vial IV.PUSH SCH ×2 (09:47→20:53)
[2018-07-02] MEDS: DOBUTamine 250 MG/250 ML Premx 250 MG/250 ML BAG IV.CONT SCH (09:51)
[2018-07-02] MEDS: QUEtiapine 25 MG Tablet NG/OG SCH ×2 (09:51→13:33)
--- NOTE | 2018-07-02 13:10 | P.PNCA ---
Subjective Interval history: not following commands on precedex, intubated Physical Exam Vital signs: Vital Signs 07/01/18 14:00 07/01/18 14:58 07/01/18 16:00 Temperature 98.9 F Pulse Rate 71 69 84 Respiratory Rate 23 21 Blood Pressure 111/53 L Pulse Oximetry 99 99 07/01/18 18:00 07/01/18 20:00 07/01/18 21:22 Temperature 98.8 F Pulse Rate 105 H 87 Respiratory Rate 16 16 Blood Pressure 97/54 L Pulse Oximetry 99 100 07/01/18 21:24 07/01/18 22:00 07/02/18 00:00 Temperature 98.6 F Pulse Rate 79 79 82 Respiratory Rate 16 16 Blood Pressure 90/55 L Pulse Oximetry 100 07/02/18 00:43 07/02/18 02:00 07/02/18 04:00 Temperature 98.6 F Pulse Rate 78 75 Respiratory Rate 16 16 Blood Pressure 92/50 L Pulse Oximetry 97 100 07/02/18 05:24 07/02/18 05:49 07/02/18 07:48 Temperature Pulse Rate 92 H 82 79 Respiratory Rate 17 18 Blood Pressure Pulse Oximetry 100 100 07/02/18 08:00 07/02/18 08:16 07/02/18 08:31 Temperature 98.5 F Pulse Rate 80 79 75 Respiratory Rate 26 H 20 21 Blood Pressure 103/55 L 120/59 L 95/70 L Pulse Oximetry 100 100 100 07/02/18 08:45 07/02/18 09:00 07/02/18 09:15 Temperature Pulse Rate 75 75 74 Respiratory Rate 21 20 24 Blood Pressure 101/73 105/58 L 97/56 L Pulse Oximetry 100 100 100 07/02/18 09:30 07/02/18 09:45 07/02/18 10:00 Temperature Pulse Rate 74 72 77 Respiratory Rate 22 24 15 Blood Pressure 99/56 L 98/53 L 101/55 L Pulse Oximetry 100 100 100 07/02/18 10:15 07/02/18 10:30 07/02/18 10:45 Temperature Pulse Rate 72 74 70 Respiratory Rate 22 22 17 Blood Pressure 105/56 L 104/58 L 102/58 L Pulse Oximetry 100 100 100 07/02/18 11:00 07/02/18 11:08 07/02/18 12:00 Temperature 98.2 F Pulse Rate 70 70 Respiratory Rate 21 23 21 Blood Pressure 104/59 L 107/60 Pulse Oximetry 100 100 100 Intake & Output 07/01/18 07/02/18 07/02/18 18:59 06:59 18:59 Intake Total 2842.825 / 2842.825 1733 / 1733 36 / 36 Output Total 1949 1250 / 1250 Balance 892.825 / 892.825 483 / 483 36 / 36 Weight 70.5 kg Intake: IV 1612.825 / 1612.825 850 / 850 36 / 36 DOBUTamine 250 MG/250 ML Premx 250 / 250 36 / 36 250 mg In 250 ml @ 1.25 MCG/KG/ MIN 5.888 mls/hr IV.CONT .Q24H [facility] Rx#:[id number] Precedex Inj 1,000 MCG In NS 250 / 250 250 / 250 Inj 240 ML @ 0.2 MCG/KG/HR 3.6 mls/hr IV.CONT TITRATE PRN Rx#: [id number] Sodium Chloride 23.4% Inj 51.3 1012.825 / 1012.825 500 / 500 MEQ In Sterile Water for Inj 1, 000 ML @ 100 mls/hr IV.CONT . Q10H8M [facility] Rx#:[id number] Maxipime Inj 2,000 MG In NS Inj 100 / 100 100 / 100 100 ML @ 200 mls/hr IV.SIG Q12H [facility] Rx#:[id number] Tube Feeding 630 / 630 483 / 483 Water Bolus Amount 600 / 600 400 / 400 Output: Urine Amount (Catheter) 1949 1250 / 1250 Indwelling Urethral Catheter 1949 1250 / 1250 Other: Date of Last Bowel Movement 07/01/18 # Bowel Movements 2 - Urinary Catheter Management Indwelling Urethral Catheter Cath placed during this visit: yes Reason for continuing: Other continuation reason Insertion date: 06/20/18 Insertion time: 21:24 Assessment and Plan - Assessment (1) Cardiomyopathy Code(s): I42.9 - Cardiomyopathy, unspecified Status: Acute (2) Cardiomyopathy Code(s): I42.9 - Cardiomyopathy, unspecified Status: Acute (3) PVD (peripheral vascular disease) Code(s): I73.9 - Peripheral vascular disease, unspecified Status: Acute (4) PVD (peripheral vascular disease) Code(s): I73.9 - Peripheral vascular disease, unspecified Status: Acute (5) Tobacco abuse Code(s): Z72.0 - Tobacco use Status: Acute (6) Respiratory failure Code(s): J96.90 - Respiratory failure, unspecified, unspecified whether with hypoxia or hypercapnia Status: Acute (7) Non-ST elevated myocardial infarction (non-STEMI) Code(s): I21.4 - Non-ST elevation (NSTEMI) myocardial infarction Status: Acute (8) Pulmonary edema cardiac cause Code(s): I50.1 - Left ventricular failure, unspecified Status: Acute - Plan 1.) NICM - end stage, euvolemic, trial of dobutamine to facilitate extubation, bridge to transfer for heart transplant eval, per cm note, refuses in state transfer, requesting transfer to [facility], d/w Dr Solis; beta ana and hellen held due to need for inotropic and bp support, he has hypernatremia 2.) CAD - nonobstructive, continue aspirin, pravachol 3.) Encephalopathy - moderate per EEG on sedation, neuro following 4.) d/w case with and nurse at the bedside 07/01/18 5.) Respiratory failure - he is euvolemic, appears to be due to pulmonary and/ or encephalopathic etilology, remains intubated (6) Respiratory failure Qualifiers: Chronicity: acute Respiratory failure complication: hypoxia Qualified Code(s ): J96.01 - Acute respiratory failure with hypoxia
--- NOTE | 2018-07-02 13:40 | P.PNCC ---
Subjective Subjective Remarks/Hospital Course: Elderly male with a medical history significant for viral cardiomyopathy who was traveling on vacation from [place] with his family in [place] and today developed chest pain with worsening shortness of breath for which EMS was called by family. Patient was extremely short of breath on the arrival and hypoxic and they proceeded with endotracheal intubation and patient was transferred to the ER. In the ER it was noted that his cuff was leaking hence ET tube was exchanged by ER physician and patient was placed on mechanical ventilation. 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 He reportedly does not take any diuretic. Chest x-ray done in the ER revealed pulmonary edema. EKG revealed atrial fibrillation. Patient was accepted for admission by critical care medicine service. When I evaluated him in the ER he was sedated with propofol, orally intubated on mechanical ventilation. History was obtained by reviewing records, discussion with family as well as ER physician. Subjective 06/21: Afebrile. Hemodynamically stable. Troponin bumped 14. Started on heparin drip. Sedated with propofol and fentanyl drips. Arousable the ventilator and is very agitated will attempt to withdrawal tube. PEEP down to 5. 06/22: Sedated, orally intubated on mechanical ventilation. Gets agitated unenlightening sedation so Precedex added in addition to propofol and fentanyl. CPAP trials ongoing to decide extubation. Cardiac cath postponed by Dr. Noonan in view of questionable neurologic status. 06/23: Patient was extubated yesterday however was requiring significant amount of O2 post extubation with a facemask as well as nasal cannula. This morning around 4 AM due to increased work of breathing and hypoxia he was reintubated by Dr. Lino and placed back on mechanical ventilation. Currently he is sedated , orally intubated on mechanical ventilation. Postintubation chest x-ray shows ET tube in appropriate position and pulmonary edema pattern with perihilar infiltrates bilaterally. 06/24: Remains sedated, orally intubated on mechanical ventilation. 06/25: Remains sedated, orally intubated on mechanical ventilation. 06/26: Remains sedated, orally intubated on mechanical ventilation. Pacer backup rate increased to 60/min yesterday due to hypotension. Awaiting cardiac catheterization. 06/27: Sedated, orally intubated on mechanical ventilation. Underwent cardiac catheterization which revealed nonobstructive CAD. Patient has nonischemic dilated cardiomyopathy per discussion with Dr. Noonan. Initiated dobutamine 2.5 mics per KG per minute on 06/26. Filling pressures not elevated per Dr. Noonan on cardiac cath. 06/28: Sedated, arousable, orally intubated on mechanical ventilation. IV hydrocortisone switched to Solu-Medrol yesterday. Pulmonary consult with Dr. Villegas as patient appears to have significant COPD in addition to cardiomyopathy. Remains on dobutamine at 1.5 mics per KG per minute. Diuresing well. Does not appear to be fluid overloaded at this time. Daily CPAP trials ongoing. 06/29: Remains intubated sedated with Precedex and fentanyl. Remains on dobutamine. Patient is able to track and follow some commands. CXR appears clear today 06/30 Remains intubated and on low dose dobutamine 1.25 mcg/kg/min. Will place on sedation vacation and CPAP trial and plan for trial of extubation as tolerated. Has continued diuresis and CXR is now clear of edema. 07/01: 07/01 Tolerates CPAP. Mental status currently seems limiting factor to extubation but there is some improvement compared with yesterday. Now on seroquel, off fentanyl drip ( states opioids have historically caused delirium for him). On precedex as needed, weaning down. Yesterday he was staring ahead, roving head movements, wild-eyed expressions as if hallucinating , very weak in all extremities. Today he does NOT follow commands but by this evening he does track, moves extremities vigorously and purposefully, strong cough, lifts head up off bed. Appears he will soon be appropriate for trial of extubation but will wait in effort to optimize to full ability, as failure of extubation trial will necessitate trach (currently day #9 following reintubation) is aware. Subjective: 07/02: No events over the night. The patient tolerated CPAP this a.m. but he became increasingly agitated and tachypneic, currently now back on full support. Sedation is achieved with dexmedetomidine at 1. T-max of 99.1. I/O 4575/3200. Objective Vital Signs / I&O: Vital Signs 07/01/18 14:00 07/01/18 14:58 07/01/18 16:00 Temperature 98.9 F Pulse Rate 71 69 84 Respiratory Rate 23 21 Blood Pressure 111/53 L Pulse Oximetry 99 99 07/01/18 18:00 07/01/18 20:00 07/01/18 21:22 Temperature 98.8 F Pulse Rate 105 H 87 Respiratory Rate 16 16 Blood Pressure 97/54 L Pulse Oximetry 99 100 07/01/18 21:24 07/01/18 22:00 07/02/18 00:00 Temperature 98.6 F Pulse Rate 79 79 82 Respiratory Rate 16 16 Blood Pressure 90/55 L Pulse Oximetry 100 07/02/18 00:43 07/02/18 02:00 07/02/18 04:00 Temperature 98.6 F Pulse Rate 78 75 Respiratory Rate 16 16 Blood Pressure 92/50 L Pulse Oximetry 97 100 07/02/18 05:24 07/02/18 05:49 07/02/18 07:48 Temperature Pulse Rate 92 H 82 79 Respiratory Rate 17 18 Blood Pressure Pulse Oximetry 100 100 07/02/18 08:00 07/02/18 08:16 07/02/18 08:31 Temperature 98.5 F Pulse Rate 80 79 75 Respiratory Rate 26 H 20 21 Blood Pressure 103/55 L 120/59 L 95/70 L Pulse Oximetry 100 100 100 07/02/18 08:45 07/02/18 09:00 07/02/18 09:15 Temperature Pulse Rate 75 75 74 Respiratory Rate 21 20 24 Blood Pressure 101/73 105/58 L 97/56 L Pulse Oximetry 100 100 100 07/02/18 09:30 07/02/18 09:45 07/02/18 10:00 Temperature Pulse Rate 74 72 77 Respiratory Rate 22 24 15 Blood Pressure 99/56 L 98/53 L 101/55 L Pulse Oximetry 100 100 100 07/02/18 10:15 07/02/18 10:30 07/02/18 10:45 Temperature Pulse Rate 72 74 70 Respiratory Rate 22 22 17 Blood Pressure 105/56 L 104/58 L 102/58 L Pulse Oximetry 100 100 100 07/02/18 11:00 07/02/18 11:08 07/02/18 12:00 Temperature 98.2 F Pulse Rate 70 70 Respiratory Rate 21 23 21 Blood Pressure 104/59 L 107/60 Pulse Oximetry 100 100 100 Intake & Output 07/01/18 07/02/1807/02/18 18:59 06:59 18:59 Intake Total 2842.825 / 2842.825 1733 / 1733 36 / 36 Output Total 1949 1250 / 1250 Balance 892.825 / 892.825 483 / 483 36 / 36 Weight 70.5 kg Intake: IV 1612.825 / 1612.825 850 / 850 36 / 36 DOBUTamine 250 MG/250 ML Premx 250 / 250 36 / 36 250 mg In 250 ml @ 1.25 MCG/KG/ MIN 5.888 mls/hr IV.CONT .Q24H MONICA Rx#:[id number] Precedex Inj 1,000 MCG In NS 250 / 250 250 / 250 Inj 240 ML @ 0.2 MCG/KG/HR 3.6 mls/hr IV.CONT TITRATE PRN Rx#: [id number] Sodium Chloride 23.4% Inj 51.3 1012.825 / 1012.825 500 / 500 MEQ In Sterile Water for Inj 1, 000 ML @ 100 mls/hr IV.CONT . Q10H8M MONICA Rx#:[id number] Maxipime Inj 2,000 MG In NS Inj 100 / 100 100 / 100 100 ML @ 200 mls/hr IV.SIG Q12H MONICA Rx#:[id number] Tube Feeding 630 / 630 483 / 483 Water Bolus Amount 600 / 600 400 / 400 Output: Urine Amount (Catheter) 1949 1250 / 1250 Indwelling Urethral Catheter 1949 1250 / 1250 Other: Date of Last Bowel Movement 07/01/18 # Bowel Movements 2 Result Diagrams: 07/04/18 04:30 07/04/18 04:30 Objective Remarks: GENERAL: Elderly gentleman, intubated and sedated, ill-appearing. SKIN: Warm and dry. Chronic venous stasis bilateral lower extremities. HEAD: Atraumatic. Normocephalic. EYES: Pupils equal and reactive. No scleral icterus. No injection or drainage. ENT: No nasal bleeding or discharge. Orotracheally intubated. NECK: Trachea midline. No JVD. No carotid bruit. CARDIOVASCULAR: Regular heart sounds, no murmurs. RESPIRATORY: Scattered coarse breath sounds bilateral. No wheezes. Good air entry. GASTROINTESTINAL: Abdomen soft, non-tender, not distended. Bowel sounds present , tolerating tube feeds. MUSCULOSKELETAL: Extremities with trace bilateral lower extremity edema. No clubbing. NEUROLOGICAL: Intubated, sedated, opens eyes to voice stimuli but does not follow commands. Blinks to threat. Assessment and Plan - Assessment and Plan Plan: Assessment: Acute respiratory failure on mechanical ventilation Acute decompensated CHF - systolic and dialstolic EF 20% Staph aureus pneumonia Dilated cardiomyopathy Atrial fibrillation non-STEMI FIDE Thrombocytopenia DM B/L carotid Stenosis 40-59% Erectile Dysfunction PAD LBBB- chronic Hypertension COPD History of pacemaker/defibrillator placement Hyperlipidemia Glaucoma Normocytic anemia Plan: Neuro: -Seroquel 50 bid. Precedex drips maintain RASS -1 to 0. Acetaminophen 650 every 6 hours as needed fever. Follow neuro status. -Baclofen 20 mg 3 times daily/home medications on 06/27. -Gabapentin at 300 mg every 8 hourly has been on hold. Continue brimonidine 0.15% 3 times daily. Cardiovascular: -Non-ST elevation PA. cardiology Dr. Noonan following for decompensated CHF, history of cardiomyopathy and positive troponin. -A. fib appears rate controlled. Continue aspirin 162 mg daily. 81 mg at home , low-dose beta-ana metoprolol tartrate 12.5 mg twice daily. -No ENA inhibitor secondary to acute kidney injury.. Off heparin GTT. Holding cilostazol 50 mg twice daily. Simvastatin 20 mg daily/40 mg pravastatin substituted. -Cardiac cath per Dr. Noonan. Angiographically mild to moderate 3-vessel coronary artery disease. EF 20%. -Continue diuresis with Lasix 40 mg IV q12. Appears euvolemic Pulmonary: -On mechanical ventilation, PRVC. No auto PEEP, patient is synchronized with the ventilator. PIP is 19. -Albuterol/ipratropium every 4 hours with albuterol aerosols every 2 hours as needed dyspnea. -Vent bundle -Continue Solu-Medrol 40 mg IV every 12 hourly as patient has significant COPD. -Pulm consult Dr. Shayy Villegas following for COPD. GI/liver: -Tolerating tube feeds, changed to Glucerna 1.5 and 55 mL/h. FEN/Renal/: Hypernatremia -Strict intake output, monitor and replete electrolytes, follow BUN/creatinine. -Continue free water. ID: [id number] pneumonia. -Continue cefepime -Sputum cultures growing MSSA. Stopped Zyvox on 06/26 Heme: -Thrombocytopenia Dr. Campa following. HIT screen negative. -Heparin gtt. discontinued following cardiac cath. Continue Lovenox 40 mg subcutaneous daily DVT prophylaxis. Endocrine: -Holding metformin thousand milligrams twice daily, sitagliptin 100 mg daily sliding scale insulin with aspart insulin high protocol for glycemic control. -Started stress dose steroids with hydrocortisone 50 mill grams IV every 6 hourly on 06/23 due to borderline blood pressures and recent prednisone use -switched to Solu-Medrol 80 mg IV every 12 hourly on 06/27. Now on tapering dose of Solu-Medrol 40 mg IV every 12 hours. Detemir 10 units subcu every 12 hours. Regular insulin, high dose every 4 hours Prophylaxis: PPI/SCDs. Continue Lovenox 40 mg subcutaneous daily for DVT prophylaxis. Dr. Calderon discussed with Dr. Etienne Villegas on 06/27. No family present at bedside Level 2 follow-up
--- NOTE | 2018-07-02 15:56 | P.PNPAL ---
Reason for Visit Reason for visit: a. To assist with evaluation and management of symptoms including: dyspnea, pain, agitation b. To assist medical decision maker(s) with: better understanding of current medical conditions; weighing benefits/burdens of medical treatment options; making medical treatment decisions. Subjective Subjective/Interval History: Patient resting in bed in no acute distress, sedated on vent. Precedex 18.8 ml/ hr. Now on seroquel, baclofen as well. Appears comfortable, does not appear agitated. On exam has bulging LUQ, this is soft and he does not grimace on deep palpation. Opens eyes, did look me at me/make eye contact on request, could not follow any other commands Failed CPAP trials today d/t agitation, tachypnea. Per CXR pulmonary edema improving. Objective Vital Signs: Vital Signs 07/01/18 16:00 07/01/18 18:00 07/01/18 20:00 Temperature 98.9 F 98.8 F Pulse Rate 84 105 H 87 Respiratory Rate 21 16 Blood Pressure 111/53 L 97/54 L Pulse Oximetry 99 99 07/01/18 21:22 07/01/18 21:24 07/01/18 22:00 Temperature Pulse Rate 79 79 Respiratory Rate 16 16 Blood Pressure Pulse Oximetry 100 07/02/18 00:00 07/02/18 00:43 07/02/18 02:00 Temperature 98.6 F Pulse Rate 82 78 Respiratory Rate 16 16 Blood Pressure 90/55 L Pulse Oximetry 100 97 07/02/18 04:00 07/02/18 05:24 07/02/18 05:49 Temperature 98.6 F Pulse Rate 75 92 H 82 Respiratory Rate 16 17 Blood Pressure 92/50 L Pulse Oximetry 100 100 07/02/18 07:48 07/02/18 08:00 07/02/18 08:16 Temperature 98.5 F Pulse Rate 79 80 79 Respiratory Rate 18 26 H 20 Blood Pressure 103/55 L 120/59 L Pulse Oximetry 100 100 100 07/02/18 08:31 07/02/18 08:45 07/02/18 09:00 Temperature Pulse Rate 75 75 75 Respiratory Rate 21 21 20 Blood Pressure 95/70 L 101/73 105/58 L Pulse Oximetry 100 100 100 07/02/18 09:15 07/02/18 09:30 07/02/18 09:45 Temperature Pulse Rate 74 74 72 Respiratory Rate 24 22 24 Blood Pressure 97/56 L 99/56 L 98/53 L Pulse Oximetry 100 100 100 07/02/18 10:00 07/02/18 10:15 07/02/18 10:30 Temperature Pulse Rate 77 72 74 Respiratory Rate 15 22 22 Blood Pressure 101/55 L 105/56 L 104/58 L Pulse Oximetry 100 100 100 07/02/18 10:45 07/02/18 11:00 07/02/18 11:08 Temperature Pulse Rate 70 70 Respiratory Rate 17 21 23 Blood Pressure 102/58 L 104/59 L Pulse Oximetry 100 100 100 07/02/18 12:00 Temperature 98.2 F Pulse Rate 70 Respiratory Rate 21 Blood Pressure 107/60 Pulse Oximetry 100 Intake & Output 07/01/18 07/02/18 07/02/18 18:59 06:59 18:59 Intake Total 2842.825 / 2842.825 1733 / 1733 286 / 286 Output Total 1949 1250 / 1250 Balance 892.825 / 892.825 483 / 483 286 / 286 Weight 70.5 kg Intake: IV 1612.825 / 1612.825 850 / 850 286 / 286 DOBUTamine 250 MG/250 ML Premx 250 / 250 36 / 36 250 mg In 250 ml @ 1.25 MCG/KG/ MIN 5.888 mls/hr IV.CONT .Q24H MONICA Rx#:[id number] Precedex Inj 1,000 MCG In NS 250 / 250 250 / 250 250 / 250 Inj 240 ML @ 0.2 MCG/KG/HR 3.6 mls/hr IV.CONT TITRATE PRN Rx#: [id number] Sodium Chloride 23.4% Inj 51.3 1012.825 / 1012.825 500 / 500 MEQ In Sterile Water for Inj 1, 000 ML @ 100 mls/hr IV.CONT . Q10H8M MONICA Rx#:[id number] Maxipime Inj 2,000 MG In NS Inj 100 / 100 100 / 100 100 ML @ 200 mls/hr IV.SIG Q12H MONICA Rx#:[id number] Tube Feeding 630 / 630 483 / 483 Water Bolus Amount 600 / 600 400 / 400 Output: Urine Amount (Catheter) 1949 1250 / 1250 Indwelling Urethral Catheter 1949 1250 / 1250 Other: Date of Last Bowel Movement 07/01/18 # Bowel Movements 2 Physical Exam: CONSTITUTIONAL/GENERAL: adequately nourished, in NAD SKIN: No jaundice, rashes, or lesions. No wounds seen anteriorly. Skin temperature appropriate. Not diaphoretic. HEAD: Atraumatic. Normocephalic. EYES: No scleral icterus. No injection or drainage. Fundi not examined. ENT: Nose without bleeding or purulent drainage. NGT CARDIOVASCULAR: RRR without murmurs, gallops, or rubs. heart sounds faint/ distant RESPIRATORY/CHEST: Symmetric, unlabored respirations. CTA GASTROINTESTINAL: Abdomen soft, distended LUQ, nontender. No hepato-splenomegaly , or palpable masses. No guarding. Bowel sounds present. TF running. GENITOURINARY: Without palpable bladder distension. Nevarez catheter in place. MUSCULOSKELETAL: BUE in restraints. Extremities without clubbing, cyanosis, or edema. No mottling or clubbing. bruising right 1st toe. NEUROLOGICAL: opens eyes, moves head. not following commands. sedated on vent. PSYCHIATRIC: unable to assess, pt sedated on vent Diagnostic Tests Laboratory: Laboratory Results - last 72 hr 06/29/18 06/29/18 06/30/18 15:27 18:54 00:21 WBC RBC Hgb Hct MCV MCH MCHC RDW Plt Count MPV Prelim Diff (Auto) Neut % (Auto) Lymph % (Auto) Pinal % (Auto) Eos % (Auto) Baso % (Auto) Neut # (Auto) Lymph # (Auto) Pinal # (Auto) Eos # (Auto) Baso # (Auto) WBC Differential Diff Scan Differential Comment Platelet Estimate Platelet Morphology RBC Morphology Puncture Site Left radial Patient Temperature 98.6 O2 Saturation 97 ABG pH 7.43 H ABG pCO2 37 L ABG pO2 146 H ABG HCO3 24 ABG O2 Content 16.0 ABG Base Excess 0.4 ABG Methemoglobin 0.8 Carlos Test Present Hemoglobin 11.5 L Carboxyhemoglobin 1.0 O2 Delivery Device Ventilator Vent Setting Ps 5/epap 5 Inspired O2 35 Critical Value No Sodium Potassium Chloride Carbon Dioxide Anion Gap BUN Creatinine Estimated GFR POC Glucose 157 H 195 H Random Glucose Calcium Total Bilirubin AST ALT Alkaline Phosphatase Ammonia Total Protein Albumin 06/30/18 06/30/18 06/30/18 04:31 04:31 06:32 WBC 7.6 RBC 3.84 L Hgb 11.9 L Hct 36.1 L MCV 94.0 MCH 30.9 MCHC 32.9 RDW 16.7 Plt Count 65 L MPV 10.3 Prelim Diff (Auto) Slide review pending Neut % (Auto) 86.6 H Lymph % (Auto) 7.5 L Pinal % (Auto) 5.6 Eos % (Auto) 0.0 Baso % (Auto) 0.3 Neut # (Auto) 6.6 Lymph # (Auto) 0.6 L P[place] # (Auto) 0.4 Eos # (Auto) 0.0 Baso # (Auto) 0.0 WBC Differential . Diff Scan Auto diff confirmed Differential Comment . Platelet Estimate Low L Platelet Morphology Normal RBC Morphology Normal Puncture Site Patient Temperature O2 Saturation ABG pH ABG pCO2 ABG pO2 ABG HCO3 ABG O2 Content ABG Base Excess ABG Methemoglobin Carlos Test Hemoglobin Carboxyhemoglobin O2 Delivery Device Vent Setting Inspired O2 Critical Value Sodium 155 H Potassium 3.9 Chloride 120 H Carbon Dioxide 25.3 Anion Gap 10 BUN 56 H Creatinine 1.33 H Estimated GFR 53 L POC Glucose 326 H Random Glucose 284 H Calcium 8.3 L Total Bilirubin 0.7 AST 136 H ALT 131 H Alkaline Phosphatase 62 Ammonia Total Protein 6.6 Albumin 2.5 L 06/30/18 06/30/18 06/30/18 08:12 11:39 11:40 WBC RBC Hgb Hct MCV MCH MCHC RDW Plt Count MPV Prelim Diff (Auto) Neut % (Auto) Lymph % (Auto) Pinal % (Auto) Eos % (Auto) Baso % (Auto) Neut # (Auto) Lymph # (Auto) Pinal # (Auto) Eos # (Auto) Baso # (Auto) WBC Differential Diff Scan Differential Comment Platelet Estimate Platelet Morphology RBC Morphology Puncture Site Patient Temperature O2 Saturation ABG pH ABG pCO2 ABG pO2 ABG HCO3 ABG O2 Content ABG Base Excess ABG Methemoglobin Carlos Test Hemoglobin Carboxyhemoglobin O2 Delivery Device Vent Setting Inspired O2 Critical Value Sodium 155 H Potassium 3.8 Chloride 120 H Carbon Dioxide 24.2 Anion Gap 11 BUN 61 H Creatinine 1.26 Estimated GFR 57 L POC Glucose 299 H 156 H Random Glucose 156 H D Calcium 8.4 L Total Bilirubin AST ALT Alkaline Phosphatase Ammonia Total Protein Albumin 08/06/30/18 06/30/18 16:28 20:11 23:53 WBC RBC Hgb Hct MCV MCH MCHC RDW Plt Count MPV Prelim Diff (Auto) Neut % (Auto) Lymph % (Auto) Pinal % (Auto) Eos % (Auto) Baso % (Auto) Neut # (Auto) Lymph # (Auto) Pinal # (Auto) Eos # (Auto) Baso # (Auto) WBC Differential Diff Scan Differential Comment Platelet Estimate Platelet Morphology RBC Morphology Puncture Site Patient Temperature O2 Saturation ABG pH ABG pCO2 ABG pO2 ABG HCO3 ABG O2 Content ABG Base Excess ABG Methemoglobin Carlos Test Hemoglobin Carboxyhemoglobin O2 Delivery Device Vent Setting Inspired O2 Critical Value Sodium Potassium Chloride Carbon Dioxide Anion Gap BUN Creatinine Estimated GFR POC Glucose 124 H 229 H 202 H Random Glucose Calcium Total Bilirubin AST ALT Alkaline Phosphatase Ammonia Total Protein Albumin 07/01/18 07/01/18 07/01/18 03:46 03:54 07:51 WBC 5.9 RBC 3.87 L Hgb 11.9 L Hct 36.4 L MCV 94.2 MCH 30.8 MCHC 32.7 RDW 16.6 Plt Count 58 L MPV 9.4 Prelim Diff (Auto) Slide review pending Neut % (Auto) 83.9 H Lymph % (Auto) 10.5 Pinal % (Auto) 5.5 Eos % (Auto) 0.0 Baso % (Auto) 0.1 Neut # (Auto) 4.9 Lymph # (Auto) 0.6 L P[place] # (Auto) 0.3 Eos # (Auto) 0.0 Baso # (Auto) 0.0 WBC Differential . Diff Scan Auto diff confirmed Differential Comment . Platelet Estimate Low L Platelet Morphology Normal RBC Morphology Puncture Site Patient Temperature O2 Saturation ABG pH ABG pCO2 ABG pO2 ABG HCO3 ABG O2 Content ABG Base Excess ABG Methemoglobin Carlos Test Hemoglobin Carboxyhemoglobin O2 Delivery Device Vent Setting Inspired O2 Critical Value Sodium Potassium Chloride Carbon Dioxide Anion Gap BUN Creatinine Estimated GFR POC Glucose 228 H 131 H Random Glucose Calcium Total Bilirubin AST ALT Alkaline Phosphatase Ammonia Total Protein Albumin 07/01/18 07/01/18 07/01/18 12:14 13:33 13:33 WBC RBC Hgb Hct MCV MCH MCHC RDW Plt Count MPV Prelim Diff (Auto) Neut % (Auto) Lymph % (Auto) Pinal % (Auto) Eos % (Auto) Baso % (Auto) Neut # (Auto) Lymph # (Auto) Pinal # (Auto) Eos # (Auto) Baso # (Auto) WBC Differential Diff Scan Differential Comment Platelet Estimate Platelet Morphology RBC Morphology Puncture Site Patient Temperature O2 Saturation ABG pH ABG pCO2 ABG pO2 ABG HCO3 ABG O2 Content ABG Base Excess ABG Methemoglobin Carlos Test Hemoglobin Carboxyhemoglobin O2 Delivery Device Vent Setting Inspired O2 Critical Value Sodium 145 D Potassium 4.4 Chloride 110 H D Carbon Dioxide 27.5 Anion Gap 8 BUN 53 H Creatinine 1.29 Estimated GFR 55 L POC Glucose 244 H Random Glucose 320 H D Calcium 8.2 L Total Bilirubin AST ALT Alkaline Phosphatase Ammonia 37 H Total Protein Albumin 07/01/18 07/01/18 07/01/18 15:13 15:14 20:19 WBC RBC Hgb Hct MCV MCH MCHC RDW Plt Count MPV Prelim Diff (Auto) Neut % (Auto) Lymph % (Auto) Pinal % (Auto) Eos % (Auto) Baso % (Auto) Neut # (Auto) Lymph # (Auto) Pinal # (Auto) Eos # (Auto) Baso # (Auto) WBC Differential Diff Scan Differential Comment Platelet Estimate Platelet Morphology RBC Morphology Puncture Site Patient Temperature O2 Saturation ABG pH ABG pCO2 ABG pO2 ABG HCO3 ABG O2 Content ABG Base Excess ABG Methemoglobin Carlos Test Hemoglobin Carboxyhemoglobin O2 Delivery Device Vent Setting Inspired O2 Critical Value Sodium Potassium Chloride Carbon Dioxide Anion Gap BUN Creatinine Estimated GFR POC Glucose 322 H 313 H 221 H Random Glucose Calcium Total Bilirubin AST ALT Alkaline Phosphatase Ammonia Total Protein Albumin 07/02/18 07/02/18 07/02/18 00:11 03:01 03:01 WBC 5.5 RBC 3.72 L Hgb 11.5 L Hct 34.9 L MCV 93.7 MCH 31.0 MCHC 33.1 RDW 16.0 Plt Count 52 L MPV 9.8 Prelim Diff (Auto) Neut % (Auto) Lymph % (Auto) Pinal % (Auto) Eos % (Auto) Baso % (Auto) Neut # (Auto) Lymph # (Auto) Pinal # (Auto) Eos # (Auto) Baso # (Auto) WBC Differential Diff Scan Differential Comment Platelet Estimate Platelet Morphology RBC Morphology Puncture Site Patient Temperature O2 Saturation ABG pH ABG pCO2 ABG pO2 ABG HCO3 ABG O2 Content ABG Base Excess ABG Methemoglobin Carlos Test Hemoglobin Carboxyhemoglobin O2 Delivery Device Vent Setting Inspired O2 Critical Value Sodium 149 H Potassium 3.9 Chloride 114 H Carbon Dioxide 29.1 Anion Gap 6 BUN 67 H Creatinine 1.45 H Estimated GFR 48 L POC Glucose 217 H Random Glucose 180 H D Calcium 8.5 Total Bilirubin AST ALT Alkaline Phosphatase Ammonia Total Protein Albumin 07/02/18 07/02/18 03:56 13:06 WBC RBC Hgb Hct MCV MCH MCHC RDW Plt Count MPV Prelim Diff (Auto) Neut % (Auto) Lymph % (Auto) Pinal % (Auto) Eos % (Auto) Baso % (Auto) Neut # (Auto) Lymph # (Auto) Pinal # (Auto) Eos # (Auto) Baso # (Auto) WBC Differential Diff Scan Differential Comment Platelet Estimate Platelet Morphology RBC Morphology Puncture Site Patient Temperature O2 Saturation ABG pH ABG pCO2 ABG pO2 ABG HCO3 ABG O2 Content ABG Base Excess ABG Methemoglobin Carlos Test Hemoglobin Carboxyhemoglobin O2 Delivery Device Vent Setting Inspired O2 Critical Value Sodium Potassium Chloride Carbon Dioxide Anion Gap BUN Creatinine Estimated GFR POC Glucose 177 H 250 H Random Glucose Calcium Total Bilirubin AST ALT Alkaline Phosphatase Ammonia Total Protein Albumin Result Diagrams: 07/02/18 03:01 07/02/18 03:01 Microbiology: Microbiology 06/28/18 10:09 Aerobic Blood Culture - Preliminary Blood - Peripheral No growth in 4 days Anaerobic Blood Culture - Preliminary No growth in 4 days 06/28/18 10:03 Aerobic Blood Culture - Preliminary Blood - Peripheral No growth in 4 days Anaerobic Blood Culture - Preliminary No growth in 4 days 06/28/18 10:45 Gram Stain - Final Sputum - Endotracheal Sputum Culture - Final Staphylococcus aureus Imaging: ITS Impressions Abdomen/Bladder Ultrasound 06/21/18 00:00 CONCLUSION: 1. Increased echogenicity of both kidneys typical of chronic parenchymal disease. 2. No evidence of acute obstructive uropathy. 3. Bilateral benign appearing renal cysts. Head CT 06/21/18 00:00 CONCLUSION: 1. Aging brain with mild volume loss. 2. No evidence of acute infarct, hemorrhage, mass or edema. . Chest X-Ray 06/30/18 06:00 CONCLUSION: ET tube and NG tube are well placed. Minimal consolidation or atelectasis at the left base. Procedures: 06/23 reintubated 06/26 heart cath Assessment and Plan - Disease Oriented Problem List (1) Respiratory failure (2) Non-ST elevated myocardial infarction (non-STEMI) (3) Cardiomyopathy (4) PVD (peripheral vascular disease) (5) Tobacco abuse Pertinent Non-Medical Issues: Psychosocial: Pt originally from [place]. with 4 kids. 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 Spiritual: lutheran. 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 Legal: Per [place] statute is proxy decision maker. Ethical issues impacting care: none Important Contacts: Kristine Avila, - [phone] Prognosis: This is a 72-year-old male with history CHF, COPD, tobacco abuse, diabetes who presented 06/20 [place] has a defibrillator implanted. His baseline ejection fraction is 25% and he is now at less than 20%. Patient reintubated 06/23. Had cardiac cath 06/26 with finding 3 vessel CAD, non ischemic dilated cardiomyopathy. Unclear if he is candidate for heart transplant d/t significant COPD. He is at high risk for continued complications and decline. Code Status: Full Code Plan: - LEGAL DECISON MAKER -patient is incapacitated to make medical decisions. Per [place] statutes his proxy decision maker - CODE STATUS-full code - GOALS - Goals are aggressive, but does appear is beginning to process severity of pt's illness. and family friend at bedside. Provided medical update. SHe is still considering a transfer but understands he is not stable for any transfer now. - SYMPTOMS - * pain - risk for pain, multifactorial. chest pain prior to admission. had been having frequent muscle cramps and spasms. has injury bilat 1st toes from hitting bed rail few days ago. now has distended LUQ, unk etiology, nontender on exam appears comfortable. * dyspnea -reintubated 06/23. Recent N STEMI. EF < 20% . s/p cardiac cath 06/26 findings 3 vessel CAD, nonischemic dilated cardiomyopathy. pulmonology consulted for significant COPD. tolerated CPAP few hours this morning but became agitated, tachypneic per CCM. CV surgery consulted, not candidate at this time. steroids, scheduled DuoNeb's, ongoing CPAP trials * agitation - multlifactorial. reportedly agitated this morning. calm on my eval. 18.8 ml/hr precedex, 50mg seroquel BID, baclofen. sedation per CCM - d/w RN - Palliative care will continue to follow during hospital course as condition evolves, to assist patient/decision-maker with understanding of medical conditions, weighing benefits/burdens of treatment options, for clarification of goals of treatment. Additionally will assist with any symptoms of palliative concern
[2018-07-03] MEDS: Hypromellose 0.3% Opth Gel 10 GM Bottle EACH EYE SCH ×3 (00:39→20:40)
[2018-07-03] MEDS: Insulin NovoLOG Aspart Correctional Sugar Inj SQ SCH ×6 (00:40→20:49)
[2018-07-03] MEDS: Dexmedetomidine Inj 1,000 MCG in Sodium Chlor 0.9% Inj 240 ML IV.CONT PRN ×2 (01:17→21:00)
--- NOTE | 2018-07-03 06:53 | XR ---
EXAM DATE: 07/03/2018 6:49 AM EDT AGE/SEX: 72 years / Male INDICATIONS: Short of breath. CLINICAL DATA: This is the patient's subsequent encounter. Patient reports that signs and symptoms h ave been present for 1 week and indicates a pain score of 0/10. MEDICAL/SURGICAL HISTORY: Chronic obstructive pulmonary disease. Gastroesophageal reflux disea se. Hypertension. Congestive heart failure. Diabetes. Pacemaker. COMPARISON: [facility] – [place] 1V SINGLE AP, 06/30/2018. . FINDINGS: A single AP view of the chest demonstrates persistent parenchymal density within the left base. This is unchanged. Right lung is clear. No effusions. Heart is normal in size. Endotracheal tube tip 4 cm from the [place]. Left-sided pacing device. Nasogastric tube coiled in the stomach. CONCLUSION: Unchanged left basilar consolidation. Electronically signed by: Edwin Doshi MD 07/03/2018 6:51 AM EDT
[2018-07-03 08:43] LABS: Baso % (Auto) 0.1 % (0.0-2.0); Hematocrit 39.6 % (39.0-51.0); Lymph # (Auto) 0.6 th/mm3 (1.0-4.8); Lymph % (Auto) 10.2 % (9.0-44.0); Mean Corpuscular HGB Conc 32.8 % (32.0-36.0); Mean Corpuscular Hemoglobin 30.9 pg (27.0-34.0); Mean Corpuscular Volume 94.3 fL (80.0-100.0); Mean Platelet Volume 10.2 fL (7.0-11.0); Mono # (Auto) 0.4 th/mm3 (0.0-0.9); Mono % (Auto) 5.9 % (0.0-8.0); Neut # (Auto) 5.2 th/mm3 (1.8-7.7); Neut % (Auto) 83.8 % (16.0-70.0); Platelet Count 44 th/mm3 (150-450); Red Blood Count 4.19 mil/mm3 (4.50-5.90); Red Cell Distribution Width 16.2 % (11.6-17.2); White Blood Count 6.3 th/mm3 (4.0-11.0)
[2018-07-03] MEDS: Metoprolol Tartrate 25 MG Tablet PO SCH ×2 (08:52→20:40)
[2018-07-03] MEDS: Senna/Docusate Sodium 8.6/50 MG Tablet PO SCH ×2 (08:52→20:40)
[2018-07-03] MEDS: Baclofen 10 MG Tablet PO SCH ×3 (08:53→18:05)
[2018-07-03] MEDS: Insulin Detemir Inj 1,000 UNIT/10 ML Vial SQ SCH ×2 (08:53→20:38)
[2018-07-03] MEDS: Enoxaparin Inj 40 MG/0.4 ML Syringe SQ SCH (08:53)
[2018-07-03] MEDS: Brimonidine 0.15% Opth Drops 5 ML Bottle EACH EYE SCH ×3 (08:55→18:07)
[2018-07-03] MEDS: MethylPREDNISolone Sod Succinate Inj 40 MG/ML Vial IV.PUSH SCH (08:55)
[2018-07-03 08:59] LABS: Albumin 2.6 g/dL (3.4-5.0); Anion Gap 11 meq/L (5-15); Aspartate Aminotransferase 181 U/L (15-37); Blood Urea Nitrogen 77 mg/dL (7-18); Calcium 8.9 mg/dL (8.5-10.1); Carbon Dioxide 27.6 meq/L (21.0-32.0); Chloride 113 meq/L (98-107); Glomerular Filtration Rate 47 mL/min (>89); Glucose,Random 176 mg/dL (74-106); Magnesium 2.7 mg/dL (1.5-2.5); Potassium 3.7 meq/L (3.5-5.1); Sodium 152 meq/L (136-145)
[2018-07-03 09:03] LABS: Alanine Aminotransferase 192 U/L (12-78); Alkaline Phosphatase 97 U/L (45-117); Phosphorus 2.9 mg/dL (2.5-4.9); Total Protein 6.9 g/dL (6.4-8.2)
--- NOTE | 2018-07-03 09:05 | P.PNCC ---
Subjective Subjective Remarks/Hospital Course: Elderly male with a medical history significant for viral cardiomyopathy who was traveling on vacation from [place] with his family in [place] and today developed chest pain with worsening shortness of breath for which EMS was called by family. Patient was extremely short of breath on the arrival and hypoxic and they proceeded with endotracheal intubation and patient was transferred to the ER. In the ER it was noted that his cuff was leaking hence ET tube was exchanged by ER physician and patient was placed on mechanical ventilation. Per his family he has a defibrillator and is followed by his multigraph operator in [place] whom he saw in December of this year. He reportedly does not take any diuretic. Chest x-ray done in the ER revealed pulmonary edema. EKG revealed atrial fibrillation. Patient was accepted for admission by critical care medicine service. When I evaluated him in the ER he was sedated with propofol, orally intubated on mechanical ventilation. History was obtained by reviewing records, discussion with family as well as ER physician. Subjective 06/21: Afebrile. Hemodynamically stable. Troponin bumped 14. Started on heparin drip. Sedated with propofol and fentanyl drips. Arousable the ventilator and is very agitated will attempt to withdrawal tube. PEEP down to 5. 06/22: Sedated, orally intubated on mechanical ventilation. Gets agitated unenlightening sedation so Precedex added in addition to propofol and fentanyl. CPAP trials ongoing to decide extubation. Cardiac cath postponed by Dr. Noonan in view of questionable neurologic status. 06/23: Patient was extubated yesterday however was requiring significant amount of O2 post extubation with a facemask as well as nasal cannula. This morning around 4 AM due to increased work of breathing and hypoxia he was reintubated by Dr. Lino and placed back on mechanical ventilation. Currently he is sedated , orally intubated on mechanical ventilation. Postintubation chest x-ray shows ET tube in appropriate position and pulmonary edema pattern with perihilar infiltrates bilaterally. 06/24: Remains sedated, orally intubated on mechanical ventilation. 06/25: Remains sedated, orally intubated on mechanical ventilation. 06/26: Remains sedated, orally intubated on mechanical ventilation. Pacer backup rate increased to 60/min yesterday due to hypotension. Awaiting cardiac catheterization. 06/27: Sedated, orally intubated on mechanical ventilation. Underwent cardiac catheterization which revealed nonobstructive CAD. Patient has nonischemic dilated cardiomyopathy per discussion with Dr. Noonan. Initiated dobutamine 2.5 mics per KG per minute on 06/26. Filling pressures not elevated per Dr. Noonan on cardiac cath. 06/28: Sedated, arousable, orally intubated on mechanical ventilation. IV hydrocortisone switched to Solu-Medrol yesterday. Pulmonary consult with Dr. Villegas as patient appears to have significant COPD in addition to cardiomyopathy. Remains on dobutamine at 1.5 mics per KG per minute. Diuresing well. Does not appear to be fluid overloaded at this time. Daily CPAP trials ongoing. 06/29: Remains intubated sedated with Precedex and fentanyl. Remains on dobutamine. Patient is able to track and follow some commands. CXR appears clear today 06/30 Remains intubated and on low dose dobutamine 1.25 mcg/kg/min. Will place on sedation vacation and CPAP trial and plan for trial of extubation as tolerated. Has continued diuresis and CXR is now clear of edema. 07/01: 07/01 Tolerates CPAP. Mental status currently seems limiting factor to extubation but there is some improvement compared with yesterday. Now on seroquel, off fentanyl drip ( states opioids have historically caused delirium for him). On precedex as needed, weaning down. Yesterday he was staring ahead, roving head movements, wild-eyed expressions as if hallucinating , very weak in all extremities. Today he does NOT follow commands but by this evening he does track, moves extremities vigorously and purposefully, strong cough, lifts head up off bed. Appears he will soon be appropriate for trial of extubation but will wait in effort to optimize to full ability, as failure of extubation trial will necessitate trach (currently day #9 following reintubation) is aware. 07/02: No events over the night. The patient tolerated CPAP this a.m. but he became increasingly agitated and tachypneic, currently now back on full support. Sedation is achieved with dexmedetomidine at 1. T-max of 99.1. I/O 4575/3200. Subjective: 07/03: Episode of agitation over the night requiring increasing Precedex and dose of Ativan. This a.m. patient on dexmedetomidine at 1.4 sedated arousable, not following commands. T-max of 100.4. Urine output of 1400 mL's over the last 24 hours. Objective Vital Signs / I&O: Vital Signs 07/02/18 09:00 07/02/18 09:15 07/02/18 09:30 Temperature Pulse Rate 75 74 74 Respiratory Rate 20 24 22 Blood Pressure 105/58 L 97/56 L 99/56 L Pulse Oximetry 100 100 100 07/02/18 09:45 07/02/18 10:00 07/02/18 10:15 Temperature Pulse Rate 72 77 72 Respiratory Rate 24 15 22 Blood Pressure 98/53 L 101/55 L 105/56 L Pulse Oximetry 100 100 100 07/02/18 10:30 07/02/18 10:45 07/02/18 11:00 Temperature Pulse Rate 74 70 70 Respiratory Rate 22 17 21 Blood Pressure 104/58 L 102/58 L 104/59 L Pulse Oximetry 100 100 100 07/02/18 11:08 07/02/18 12:00 07/02/18 14:00 Temperature 98.2 F Pulse Rate 70 69 Respiratory Rate 23 21 Blood Pressure 107/60 Pulse Oximetry 100 100 07/02/18 16:00 07/02/18 16:57 07/02/18 18:00 Temperature Pulse Rate 76 79 80 Respiratory Rate 16 16 Blood Pressure 93/50 L Pulse Oximetry 100 100 07/02/18 19:15 07/02/18 19:30 07/02/18 19:45 Temperature Pulse Rate 73 74 Respiratory Rate 16 16 16 Blood Pressure 113/57 L 108/58 L 110/59 L Pulse Oximetry 100 100 100 07/02/18 20:00 07/02/18 20:01 07/02/18 20:15 Temperature 100.4 F H Pulse Rate 73 71 72 Respiratory Rate 16 16 16 Blood Pressure 106/55 L 106/55 L 111/58 L Pulse Oximetry 100 100 100 07/02/18 20:30 07/02/18 20:46 07/02/18 21:00 Temperature Pulse Rate 71 73 72 Respiratory Rate 16 20 16 Blood Pressure 118/57 L 94/52 L 106/58 L Pulse Oximetry 100 100 100 07/02/18 21:15 07/02/18 21:18 07/02/18 21:30 Temperature Pulse Rate 70 70 82 Respiratory Rate 16 17 16 Blood Pressure 103/59 L 109/56 L Pulse Oximetry 100 100 07/02/18 21:45 07/02/18 22:00 07/02/18 22:16 Temperature Pulse Rate 84 80 85 Respiratory Rate 16 16 16 Blood Pressure 108/56 L 105/59 L 112/55 L Pulse Oximetry 96 96 97 07/02/18 22:30 07/02/18 22:45 07/02/18 23:00 Temperature Pulse Rate 80 91 H 80 Respiratory Rate 16 16 15 Blood Pressure 108/55 L 119/60 125/55 L Pulse Oximetry 97 100 100 07/02/18 23:16 07/02/18 23:30 07/02/18 23:45 Temperature Pulse Rate 75 78 79 Respiratory Rate 16 17 16 Blood Pressure 101/58 L 99/59 L 99/58 L Pulse Oximetry 100 100 100 07/03/18 00:00 07/03/18 00:15 07/03/18 00:17 Temperature 100.1 F H Pulse Rate 89 86 Respiratory Rate 16 25 H 16 Blood Pressure 105/58 L 101/56 L Pulse Oximetry 100 100 100 07/03/18 00:30 07/03/18 00:45 07/03/18 01:00 Temperature Pulse Rate 83 91 H 80 Respiratory Rate 21 26 H 16 Blood Pressure 98/55 L 118/55 L 118/55 L Pulse Oximetry 100 99 100 07/03/18 01:30 07/03/18 02:00 07/03/18 02:31 Temperature Pulse Rate 91 H 94 H 91 H Respiratory Rate 16 30 H 32 H Blood Pressure 111/59 L 124/58 L 126/60 Pulse Oximetry 100 100 100 07/03/18 02:53 07/03/18 03:00 07/03/18 03:31 Temperature Pulse Rate 97 H 96 H Respiratory Rate 18 22 17 Blood Pressure 149/61 H 115/61 Pulse Oximetry 100 100 98 07/03/18 03:41 07/03/18 04:00 07/03/18 04:01 Temperature 99.9 F H Pulse Rate 89 93 H 93 H Respiratory Rate 16 16 16 Blood Pressure 88/55 L 88/55 L Pulse Oximetry 100 100 07/03/18 04:23 07/03/18 04:31 07/03/18 05:00 Temperature Pulse Rate 81 75 Respiratory Rate 16 16 16 Blood Pressure 111/58 L 120/55 L Pulse Oximetry 100 100 100 07/03/18 05:31 07/03/18 06:00 07/03/18 08:41 Temperature Pulse Rate 76 72 Respiratory Rate 16 16 16 Blood Pressure 117/57 L 105/58 L Pulse Oximetry 100 100 100 Intake & Output 07/02/18 07/03/18 07/03/18 18:59 06:59 18:59 Intake Total 1424 / 1424 1181 / 1181 Output Total 1400 / 1400 1400 / 1400 Balance 24 / 24 -219 / -219 Weight 67.5 kg Intake: IV 386 / 386 350 / 350 DOBUTamine 250 MG/250 ML Premx 36 / 36 250 mg In 250 ml @ 1.25 MCG/KG/ MIN 5.888 mls/hr IV.CONT .Q24H MONICA Rx#:[id number] Precedex Inj 1,000 MCG In NS 250 / 250 250 / 250 Inj 240 ML @ 0.2 MCG/KG/HR 3.6 mls/hr IV.CONT TITRATE PRN Rx#: [id number] Maxipime Inj 2,000 MG In NS Inj 100 / 100 100 / 100 100 ML @ 200 mls/hr IV.SIG Q12H MONICA Rx#:[id number] Tube Feeding 638 / 638 431 / 431 Water Bolus Amount 400 / 400 400 / 400 Output: Urine Amount (Catheter) 1400 / 1400 1400 / 1400 Indwelling Urethral Catheter 1400 / 1400 1400 / 1400 Other: Date of Last Bowel Movement 07/03/18 Result Diagrams: 07/04/18 04:30 07/04/18 04:30 Objective Remarks: GENERAL: Elderly gentleman, intubated and sedated, ill-appearing. SKIN: Chronic venous stasis bilateral lower extremities. HEENT: Pupils are equal and reactive. Sclerae are anicteric. Orally intubated. No neck vein distention. CARDIOVASCULAR: Regular S1 and S2, no murmurs, rubs or gallops appreciated. RESPIRATORY: Scattered coarse breath sounds bilateral. No wheezes. Good air entry. GASTROINTESTINAL: Abdomen soft, non-tender, + area of distention (?hernia) right quadrant. Bowel sounds present. MUSCULOSKELETAL: Extremities with trace bilateral lower extremity edema. No clubbing. NEUROLOGICAL: Intubated, sedated, opens eyes to voice stimuli but does not follow commands. Assessment and Plan - Assessment and Plan Plan: Assessment: Acute respiratory failure on mechanical ventilation -unchanged, on 0.4 FiO2 Acute decompensated CHF - systolic and dialstolic EF 20% -appears euvolemic Staph aureus pneumonia -had episode of fever, T-max of 100.4 Dilated cardiomyopathy Atrial fibrillation -rate controlled Non-STEMI FIDE Thrombocytopenia -worsening DM B/L carotid Stenosis 40-59% Erectile Dysfunction PAD LBBB- chronic Hypertension COPD History of pacemaker/defibrillator placement Hyperlipidemia Glaucoma Normocytic anemia Plan: Neuro: -Seroquel 50 bid. Precedex drip, maintain RASS -1 to 0. Acetaminophen 650 every 6 hours as needed fever. Follow neuro status. -Baclofen 20 mg 3 times daily/home medications on 06/27. -Gabapentin at 300 mg every 8 hourly has been on hold. Continue brimonidine 0.15% 3 times daily. Cardiovascular: -Non-ST elevation AL. cardiology Dr. Noonan following for decompensated CHF, history of cardiomyopathy and positive troponin. -A. fib appears rate controlled. Continue aspirin 162 mg daily. Low-dose beta- ana metoprolol tartrate 12.5 mg twice daily. -No ENA inhibitor secondary to acute kidney injury. Off heparin GTT. Holding cilostazol 50 mg twice daily. Simvastatin 20 mg daily/40 mg pravastatin substituted. -Cardiac cath per Dr. Noonan. Angiographically mild to moderate 3-vessel coronary artery disease. EF 20%. -Continue diuresis with Lasix 40 mg IV q12. Appears euvolemic Pulmonary: -On mechanical ventilation, PRVC. No auto PEEP, patient is synchronized with the ventilator. PIP is 22. -I attempted CPAP trial this morning but patient was not initiating breaths. I discussed with respiratory therapist to aggressively try CPAP throughout the day and with the nurse to taper off sedation -Albuterol/ipratropium every 4 hours with albuterol aerosols every 2 hours as needed dyspnea. -Vent bundle -Continue Solu-Medrol 40 mg but decrease frequency to daily -Pulm consult Dr. Shayy Villegas following for COPD GI/liver: -Tolerating tube feeds, changed to Glucerna 1.5 and 55 mL/h. FEN/Renal/: Hypernatremia -Strict intake output, monitor and replete electrolytes, follow BUN/creatinine. -Continue free water. -Today's sodium is pending ID: MSSA pneumonia. -Continue cefepime -Sputum cultures growing MSSA. Stopped Zyvox on 06/26 -Episode of fever over the night. Send blood cultures 2, UA and urine culture if indicated, sputum culture Heme: -Thrombocytopenia Dr. Campa following. HIT screen negative. -Heparin gtt. discontinued following cardiac cath. Continue Lovenox 40 mg subcutaneous daily DVT prophylaxis. -Worsening, no evidence of bleed Endocrine: -Holding metformin thousand milligrams twice daily, sitagliptin 100 mg daily sliding scale insulin with aspart insulin high protocol for glycemic control. -Started stress dose steroids with hydrocortisone 50 mill grams IV every 6 hourly on 06/23 due to borderline blood pressures and recent prednisone use -switched to Solu-Medrol 80 mg IV every 12 hourly on 06/27. Now on tapering dose of Solu-Medrol 40 mg IV every 12 hours. Detemir 10 units subcu every 12 hours. Regular insulin, high dose every 4 hours Prophylaxis: PPI/SCDs. Continue Lovenox 40 mg subcutaneous daily for DVT prophylaxis. Dr. Calderon discussed with Dr. Etienne Villegas on 06/27. No family present at bedside. I discussed with patient's in detail yesterday at bedside. Level 2 followup
[2018-07-03 09:22] LABS: Lymphocytes 9 % (9-44); Metamyelocytes 1 % (0-1); Monocytes 4 % (0-8)
[2018-07-03 09:23] LABS: Platelet Morphology Normal (Normal)
--- NOTE | 2018-07-03 12:33 | P.PNCA ---
Subjective Interval history: intubated, sedated Physical Exam Vital signs: Vital Signs 07/02/18 14:00 07/02/18 16:00 07/02/18 16:57 Temperature Pulse Rate 69 76 79 Respiratory Rate 16 16 Blood Pressure 93/50 L Pulse Oximetry 100 100 07/02/18 18:00 07/02/18 19:15 07/02/18 19:30 Temperature Pulse Rate 80 73 Respiratory Rate 16 16 Blood Pressure 113/57 L 108/58 L Pulse Oximetry 100 100 07/02/18 19:45 07/02/18 20:00 07/02/18 20:01 Temperature 100.4 F H Pulse Rate 74 73 71 Respiratory Rate 16 16 16 Blood Pressure 110/59 L 106/55 L 106/55 L Pulse Oximetry 100 100 100 07/02/18 20:15 07/02/18 20:30 07/02/18 20:46 Temperature Pulse Rate 72 71 73 Respiratory Rate 16 16 20 Blood Pressure 111/58 L 118/57 L 94/52 L Pulse Oximetry 100 100 100 07/02/18 21:00 07/02/18 21:15 07/02/18 21:18 Temperature Pulse Rate 72 70 70 Respiratory Rate 16 16 17 Blood Pressure 106/58 L 103/59 L Pulse Oximetry 100 100 07/02/18 21:30 07/02/18 21:45 07/02/18 22:00 Temperature Pulse Rate 82 84 80 Respiratory Rate 16 16 16 Blood Pressure 109/56 L 108/56 L 105/59 L Pulse Oximetry 100 96 96 07/02/18 22:16 07/02/18 22:30 07/02/18 22:45 Temperature Pulse Rate 85 80 91 H Respiratory Rate 16 16 16 Blood Pressure 112/55 L 108/55 L 119/60 Pulse Oximetry 97 97 100 07/02/18 23:00 07/02/18 23:16 07/02/18 23:30 Temperature Pulse Rate 80 75 78 Respiratory Rate 15 16 17 Blood Pressure 125/55 L 101/58 L 99/59 L Pulse Oximetry 100 100 100 07/02/18 23:45 07/03/18 00:00 07/03/18 00:15 Temperature 100.1 F H Pulse Rate 79 89 86 Respiratory Rate 16 16 25 H Blood Pressure 99/58 L 105/58 L 101/56 L Pulse Oximetry 100 100 100 07/03/18 00:17 08/21/18 00:30 07/03/18 00:45 Temperature Pulse Rate 83 91 H Respiratory Rate 16 21 26 H Blood Pressure 98/55 L 118/55 L Pulse Oximetry 100 100 99 07/03/18 01:00 07/03/18 01:30 07/03/18 02:00 Temperature Pulse Rate 80 91 H 94 H Respiratory Rate 16 16 30 H Blood Pressure 118/55 L 111/59 L 124/58 L Pulse Oximetry 100 100 100 07/03/18 02:31 07/03/18 02:53 07/03/18 03:00 Temperature Pulse Rate 91 H 97 H Respiratory Rate 32 H 18 22 Blood Pressure 126/60 149/61 H Pulse Oximetry 100 100 100 07/03/18 03:31 07/03/18 03:41 07/03/18 04:00 Temperature 99.9 F H Pulse Rate 96 H 89 93 H Respiratory Rate 17 16 16 Blood Pressure 115/61 88/55 L Pulse Oximetry 98 100 07/03/18 04:01 07/03/18 04:23 07/03/18 04:31 Temperature Pulse Rate 93 H 81 Respiratory Rate 16 16 16 Blood Pressure 88/55 L 111/58 L Pulse Oximetry 100 100 100 07/03/18 05:00 07/03/18 05:31 07/03/18 06:00 Temperature Pulse Rate 75 76 72 Respiratory Rate 16 16 16 Blood Pressure 120/55 L 117/57 L 105/58 L Pulse Oximetry 100 100 100 07/03/18 08:00 07/03/18 08:41 07/03/18 09:05 Temperature 100.4 F H Pulse Rate 73 71 Respiratory Rate 16 16 16 Blood Pressure 106/55 L Pulse Oximetry 100 100 07/03/18 11:58 Temperature Pulse Rate Respiratory Rate 16 Blood Pressure Pulse Oximetry 100 Intake & Output 07/02/18 07/03/18 07/03/18 18:59 06:59 18:59 Intake Total 1424 / 1424 1181 / 1181 Output Total 1400 / 1400 1400 / 1400 Balance - / -219 Weight 67.5 kg Intake: IV 386 / 386 350 / 350 DOBUTamine 250 MG/250 ML Premx 36 / 36 250 mg In 250 ml @ 1.25 MCG/KG/ MIN 5.888 mls/hr IV.CONT .Q24H [facility] Rx#:[id number] Precedex Inj 1,000 MCG In NS 250 / 250 250 / 250 Inj 240 ML @ 0.2 MCG/KG/HR 3.6 mls/hr IV.CONT TITRATE PRN Rx#: [id number] Maxipime Inj 2,000 MG In NS Inj 100 / 100 100 / 100 100 ML @ 200 mls/hr IV.SIG Q12H MONICA Rx#:[id number] Tube Feeding 638 / 638 431 / 431 Water Bolus Amount 400 / 400 400 / 400 Output: Urine Amount (Catheter) 1400 1400 1400 / 1400 Indwelling Urethral Catheter 1399 1400 1400 / 1400 Other: Date of Last Bowel Movement 07/03/18 07/03/18 - Urinary Catheter Management Indwelling Urethral Catheter Cath placed during this visit: yes Reason for continuing: Other continuation reason Insertion date: 06/20/18 Insertion time: 21:24 Assessment and Plan - Assessment (1) Cardiomyopathy Code(s): I42.9 - Cardiomyopathy, unspecified Status: Acute (2) Cardiomyopathy Code(s): I42.9 - Cardiomyopathy, unspecified Status: Acute (3) PVD (peripheral vascular disease) Code(s): I73.9 - Peripheral vascular disease, unspecified Status: Acute (4) PVD (peripheral vascular disease) Code(s): I73.9 - Peripheral vascular disease, unspecified Status: Acute (5) Tobacco abuse Code(s): Z72.0 - Tobacco use Status: Acute (6) Respiratory failure Code(s): J96.90 - Respiratory failure, unspecified, unspecified whether with hypoxia or hypercapnia Status: Acute (7) Non-ST elevated myocardial infarction (non-STEMI) Code(s): I21.4 - Non-ST elevation (NSTEMI) myocardial infarction Status: Acute (8) Pulmonary edema cardiac cause Code(s): I50.1 - Left ventricular failure, unspecified Status: Acute - Plan 1.) NICM - end stage, euvolemic, trial of dobutamine to facilitate extubation, bridge to transfer for heart transplant eval, per cm note, refuses in state transfer, requesting transfer to [facility], d/w Dr Solis; beta ana and hellen held due to need for inotropic and bp support, he has hypernatremia 2.) CAD - nonobstructive, continue aspirin, pravachol 3.) Encephalopathy - moderate per EEG on sedation, neuro following 4.) d/w case with at the bedside 07/03/18 5.) Respiratory failure - he is euvolemic, appears to be due to pulmonary and/ or encephalopathic etilology, remains intubated (6) Respiratory failure Qualifiers: Chronicity: acute Respiratory failure complication: hypoxia Qualified Code(s ): J96.01 - Acute respiratory failure with hypoxia
[2018-07-03] MEDS: QUEtiapine 25 MG Tablet NG/OG SCH ×2 (13:32→17:39)
[2018-07-03] MEDS: DOBUTamine 250 MG/250 ML Premx 250 MG/250 ML BAG IV.CONT SCH (17:39)
[2018-07-03 23:00] LABS: Bilirubin,Urine Negative (Negative); Clarity,Urine Cloudy (Clear); Color,Urine Yellow (Yellw/Straw); Glucose,Urine (UA) Negative (Negative); Hyaline Casts,Urine 5 /lpf (0-3); Leukocyte Esterase,Urine Negative (Negative); Mucus,Urine Few /lpf (Occasional); Nitrite,Urine Negative (Negative); Specific Gravity,Urine 1.021 (1.002-1.035)
[2018-07-04] MEDS: Insulin NovoLOG Aspart Correctional Sugar Inj SQ SCH ×6 (01:43→20:33)
[2018-07-04 06:22] LABS: Baso % (Auto) 0.2 % (0.0-2.0); Eos % (Auto) 0.1 % (0.0-4.0); Hematocrit 36.8 % (39.0-51.0); Hemoglobin 12.1 gm/dL (13.0-17.0); Lymph % (Auto) 13.4 % (9.0-44.0); Mean Corpuscular HGB Conc 32.9 % (32.0-36.0); Mean Corpuscular Hemoglobin 30.8 pg (27.0-34.0); Mean Corpuscular Volume 93.5 fL (80.0-100.0); Mean Platelet Volume 12.1 fL (7.0-11.0); Mono # (Auto) 0.5 th/mm3 (0.0-0.9); Mono % (Auto) 6.6 % (0.0-8.0); Neut # (Auto) 6.1 th/mm3 (1.8-7.7); Neut % (Auto) 79.7 % (16.0-70.0); Platelet Count 52 th/mm3 (150-450); Red Blood Count 3.94 mil/mm3 (4.50-5.90); Red Cell Distribution Width 16.3 % (11.6-17.2); White Blood Count 7.6 th/mm3 (4.0-11.0)
[2018-07-04 06:42] LABS: Alanine Aminotransferase 200 U/L (12-78); Albumin 2.3 g/dL (3.4-5.0); Anion Gap 14 meq/L (5-15); Aspartate Aminotransferase 175 U/L (15-37); Blood Urea Nitrogen 89 mg/dL (7-18); Calcium 8.6 mg/dL (8.5-10.1); Carbon Dioxide 27.2 meq/L (21.0-32.0); Chloride 116 meq/L (98-107); Glomerular Filtration Rate 38 mL/min (>89); Glucose,Random 222 mg/dL (74-106); Potassium 3.5 meq/L (3.5-5.1)
[2018-07-04 06:44] LABS: Alkaline Phosphatase 101 U/L (45-117); Total Protein 6.6 g/dL (6.4-8.2)
[2018-07-04 06:47] LABS: Sodium 157 meq/L (136-145)
[2018-07-04] MEDS: Dextrose 5% in Water Inj 1,000 ML IV.CONT SCH (09:26)
[2018-07-04] MEDS: Senna/Docusate Sodium 8.6/50 MG Tablet PO SCH ×2 (09:29→20:34)
[2018-07-04] MEDS: Baclofen 10 MG Tablet PO SCH ×3 (09:29→22:07)
[2018-07-04] MEDS: Metoprolol Tartrate 25 MG Tablet PO SCH ×2 (09:30→20:34)
[2018-07-04] MEDS: Insulin Detemir Inj 1,000 UNIT/10 ML Vial SQ SCH ×2 (09:30→20:34)
--- NOTE | 2018-07-04 09:49 | P.PNCC ---
Subjective Subjective Remarks/Hospital Course: Elderly male with a medical history significant for viral cardiomyopathy who was traveling on vacation from [place] with his family in [place] and today developed chest pain with worsening shortness of breath for which EMS was called by family. Patient was extremely short of breath on the arrival and hypoxic and they proceeded with endotracheal intubation and patient was transferred to the ER. In the ER it was noted that his cuff was leaking hence ET tube was exchanged by ER physician and patient was placed on mechanical ventilation. Per his family he has a defibrillator and is followed by his corn cutter in [place] whom he saw in December of this year. He reportedly does not take any diuretic. Chest x-ray done in the ER revealed pulmonary edema. EKG revealed atrial fibrillation. Patient was accepted for admission by critical care medicine service. When I evaluated him in the ER he was sedated with propofol, orally intubated on mechanical ventilation. History was obtained by reviewing records, discussion with family as well as ER physician. Subjective 06/21: Afebrile. Hemodynamically stable. Troponin bumped 14. Started on heparin drip. Sedated with propofol and fentanyl drips. Arousable the ventilator and is very agitated will attempt to withdrawal tube. PEEP down to 5. 06/22: Sedated, orally intubated on mechanical ventilation. Gets agitated unenlightening sedation so Precedex added in addition to propofol and fentanyl. CPAP trials ongoing to decide extubation. Cardiac cath postponed by Dr. Noonan in view of questionable neurologic status. 06/23: Patient was extubated yesterday however was requiring significant amount of O2 post extubation with a facemask as well as nasal cannula. This morning around 4 AM due to increased work of breathing and hypoxia he was reintubated by Dr. Lino and placed back on mechanical ventilation. Currently he is sedated , orally intubated on mechanical ventilation. Postintubation chest x-ray shows ET tube in appropriate position and pulmonary edema pattern with perihilar infiltrates bilaterally. 06/24: Remains sedated, orally intubated on mechanical ventilation. 06/25: Remains sedated, orally intubated on mechanical ventilation. 06/26: Remains sedated, orally intubated on mechanical ventilation. Pacer backup rate increased to 60/min yesterday due to hypotension. Awaiting cardiac catheterization. 06/27: Sedated, orally intubated on mechanical ventilation. Underwent cardiac catheterization which revealed nonobstructive CAD. Patient has nonischemic dilated cardiomyopathy per discussion with Dr. Noonan. Initiated dobutamine 2.5 mics per KG per minute on 06/26. Filling pressures not elevated per Dr. Noonan on cardiac cath. 06/28: Sedated, arousable, orally intubated on mechanical ventilation. IV hydrocortisone switched to Solu-Medrol yesterday. Pulmonary consult with Dr. Villegas as patient appears to have significant COPD in addition to cardiomyopathy. Remains on dobutamine at 1.5 mics per KG per minute. Diuresing well. Does not appear to be fluid overloaded at this time. Daily CPAP trials ongoing. 06/29: Remains intubated sedated with Precedex and fentanyl. Remains on dobutamine. Patient is able to track and follow some commands. CXR appears clear today 06/30 Remains intubated and on low dose dobutamine 1.25 mcg/kg/min. Will place on sedation vacation and CPAP trial and plan for trial of extubation as tolerated. Has continued diuresis and CXR is now clear of edema. 07/01: 07/01 Tolerates CPAP. Mental status currently seems limiting factor to extubation but there is some improvement compared with yesterday. Now on seroquel, off fentanyl drip ( states opioids have historically caused delirium for him). On precedex as needed, weaning down. Yesterday he was staring ahead, roving head movements, wild-eyed expressions as if hallucinating , very weak in all extremities. Today he does NOT follow commands but by this evening he does track, moves extremities vigorously and purposefully, strong cough, lifts head up off bed. Appears he will soon be appropriate for trial of extubation but will wait in effort to optimize to full ability, as failure of extubation trial will necessitate trach (currently day #9 following reintubation) is aware. 07/02: No events over the night. The patient tolerated CPAP this a.m. but he became increasingly agitated and tachypneic, currently now back on full support. Sedation is achieved with dexmedetomidine at 1. T-max of 99.1. I/O 4575/3200. 07/03: Episode of agitation over the night requiring increasing Precedex and dose of Ativan. This a.m. patient on dexmedetomidine at 1.4 sedated arousable, not following commands. T-max of 100.4. Urine output of 1400 mL's over the last 24 hours. Subjective: 07/04: No events over the night. Patient tolerated CPAP yesterday for approximately 6 hours however mental status remains poor. T-max of 100.4 yesterday morning, afebrile since then. Diuresed great over the last 24 hours, 4625 mL's since yesterday, almost 2.5 L negative fluid balance. CT abdomen and pelvis not yet done. Objective Vital Signs / I&O: Vital Signs 07/03/18 10:00 07/03/18 11:58 07/03/18 12:00 Temperature 99.5 F Pulse Rate 71 70 Respiratory Rate 16 16 Blood Pressure 107/59 L Pulse Oximetry 100 100 07/03/18 13:00 07/03/18 13:30 07/03/18 14:00 Temperature Pulse Rate 70 73 72 Respiratory Rate 21 28 H 22 Blood Pressure 105/58 L 98/55 L 100/56 L Pulse Oximetry 100 100 100 07/03/18 14:30 07/03/18 15:00 07/03/18 15:30 Temperature Pulse Rate 82 81 83 Respiratory Rate 27 H 23 22 Blood Pressure 104/53 L 120/61 134/77 Pulse Oximetry 100 100 100 07/03/18 16:00 07/03/18 16:30 07/03/18 16:48 Temperature 99 F Pulse Rate 84 81 82 Respiratory Rate 25 H 28 H 21 Blood Pressure 120/58 L 104/63 Pulse Oximetry 100 100 100 07/03/18 17:00 07/03/18 17:31 07/03/18 18:00 Temperature Pulse Rate 88 84 80 Respiratory Rate 31 H 25 H 28 H Blood Pressure 112/57 L 125/79 123/57 L Pulse Oximetry 100 100 100 07/03/18 18:30 07/03/18 19:00 07/03/18 19:22 Temperature Pulse Rate 91 H 81 Respiratory Rate 22 17 16 Blood Pressure 127/68 114/54 L Pulse Oximetry 100 100 100 07/03/18 19:31 07/03/18 20:00 07/03/18 20:02 Temperature 98.4 F Pulse Rate 79 76 82 Respiratory Rate 16 18 20 Blood Pressure 90/52 L 107/56 L 117/57 L Pulse Oximetry 100 100 100 07/03/18 20:30 07/03/18 21:00 07/03/18 21:07 Temperature Pulse Rate 76 79 72 Respiratory Rate 18 20 16 Blood Pressure 107/56 L 96/56 L Pulse Oximetry 100 100 07/03/18 21:31 07/03/18 22:00 07/03/18 22:01 Temperature Pulse Rate 72 70 72 Respiratory Rate 16 19 20 Blood Pressure 110/59 L 122/59 L Pulse Oximetry 100 100 100 07/03/18 22:33 07/03/18 22:57 07/03/18 23:00 Temperature Pulse Rate 70 70 Respiratory Rate 18 16 23 Blood Pressure 102/59 L 107/59 L Pulse Oximetry 100 100 99 07/03/18 23:30 07/04/18 00:00 07/04/18 00:31 Temperature Pulse Rate 71 70 70 Respiratory Rate 17 17 17 Blood Pressure 106/59 L 101/54 L 101/54 L Pulse Oximetry 98 100 100 07/04/18 01:00 07/04/18 01:30 07/04/18 01:55 Temperature Pulse Rate 71 71 Respiratory Rate 21 18 16 Blood Pressure 105/55 L 98/56 L Pulse Oximetry 97 100 98 07/04/18 02:00 07/04/18 02:01 07/04/18 02:30 Temperature Pulse Rate 71 70 73 Respiratory Rate 16 16 17 Blood Pressure 112/55 L 110/57 L Pulse Oximetry 98 96 98 07/04/18 03:00 07/04/18 03:30 07/04/18 03:51 Temperature Pulse Rate 71 76 77 Respiratory Rate 16 16 16 Blood Pressure 105/56 L 109/60 Pulse Oximetry 98 100 07/04/18 04:00 07/04/18 04:18 07/04/18 04:30 Temperature Pulse Rate 74 78 Respiratory Rate 18 17 16 Blood Pressure 112/80 107/64 Pulse Oximetry 100 97 98 07/04/18 06:00 07/04/18 08:14 07/04/18 09:00 Temperature Pulse Rate 78 105 H Respiratory Rate 30 H 17 Blood Pressure Pulse Oximetry 100 Intake & Output 07/03/18 07/04/18 07/04/18 18:59 06:59 18:59 Intake Total 1230 / 1230 926 / 926 Output Total 1999 2625 / 2625 Balance -770 / -770 -1699 / -1699 Intake: IV 350 / 350 Precedex Inj 1,000 MCG In NS 250 / 250 Inj 240 ML @ 0.2 MCG/KG/HR 3.6 mls/hr IV.CONT TITRATE PRN Rx#: [id number] Maxipime Inj 2,000 MG In NS Inj 100 / 100 100 ML @ 200 mls/hr IV.SIG Q12H MONICA Rx#:[id number] Oral 0 / 0 Tube Feeding 480 / 480 726 / 726 Water Bolus Amount 400 / 400 200 / 200 Output: Urine 1999 Urine Amount (Catheter) 625 / 625 Indwelling Urethral Catheter 625 / 625 Other: Date of Last Bowel Movement 07/03/18 07/03/18 # Bowel Movements 0 Result Diagrams: 07/04/18 04:30 07/04/18 04:30 Objective Remarks: GENERAL: Elderly gentleman, intubated and sedated, awake, ill-appearing. SKIN: Chronic venous stasis bilateral lower extremities. HEENT: Pupils equal and reactive. Sclerae anicteric. Neck is soft, supple without rigidity. Orally intubated. No JVD. CARDIOVASCULAR: Regular heart sounds, no murmurs. RESPIRATORY: Clear breath sounds bilateral. No wheezes. Good air entry. GASTROINTESTINAL: Abdomen is soft soft, appears not tender, + area of distention (?hernia) right lower quadrant. Bowel sounds present. MUSCULOSKELETAL: Warm, extremities with trace bilateral lower extremity edema. No clubbing. NEUROLOGICAL: Intubated, awake, not following commands. Assessment and Plan - Assessment and Plan Plan: Assessment: Acute respiratory failure on mechanical ventilation -unchanged, on 0.4 FiO2, tolerated CPAP yesterday Acute decompensated CHF - systolic and dialstolic EF 20% -appears euvolemic Staph aureus pneumonia -had episode of fever, T-max of 100.4, afebrile since yesterday Dilated cardiomyopathy Atrial fibrillation -rate controlled Non-STEMI FIDE -unchanged Hypernatremia -worsening Thrombocytopenia -worsening DM B/L carotid Stenosis 40-59% Erectile Dysfunction PAD LBBB- chronic Hypertension COPD History of pacemaker/defibrillator placement Hyperlipidemia Glaucoma Normocytic anemia Plan: Neuro: -Seroquel 50 bid. Precedex drip, maintain RASS -1 to 0. -Acetaminophen 650 every 6 hours as needed fever. -Follow neuro status. -Baclofen 20 mg 3 times daily/home medications on 8/15. -Gabapentin at 300 mg every 8 hourly has been on hold. Continue brimonidine 0.15% 3 times daily. Cardiovascular: -Non-ST elevation [place]. cardiology Dr. Noonan following for decompensated CHF, history of cardiomyopathy and positive troponin. -A. fib appears rate controlled. Continue aspirin 162 mg daily. Low-dose beta- ana metoprolol tartrate 12.5 mg twice daily. -No ENA inhibitor secondary to acute kidney injury. Off heparin GTT. Holding cilostazol 50 mg twice daily. Simvastatin 20 mg daily/40 mg pravastatin substituted. -Cardiac cath per Dr. Noonan. Angiographically mild to moderate 3-vessel coronary artery disease. EF 20%. -Continue diuresis with Lasix, but decrease dose to daily Pulmonary: -On mechanical ventilation, PRVC. No auto PEEP, patient is synchronized with the ventilator. PIP is 20. -We will attempt CPAP trial again today and if tolerated we will attempt extubation -Albuterol/ipratropium every 4 hours with albuterol aerosols every 2 hours as needed dyspnea. -Vent bundle -Continue Solu-Medrol 40 mg but decrease frequency to daily -Pulm consult Dr. Shayy Villegas following for COPD GI/liver: -Tolerating tube feeds, changed to Glucerna 1.5 and 55 mL/h. -Check CT abdomen and pelvis FEN/Renal/: Hypernatremia -Start D5W at 60 mL's per hour -Increase free water to 200 every 6 hours -Decrease Lasix to 40 IV daily -Strict intake output, monitor and replete electrolytes, follow BUN/creatinine. ID: MSSA pneumonia. -Continue cefepime day 14. Will stop after today's dose and wait for new cultures -Sputum cultures growing MSSA. Stopped Zyvox on 06/26 -Episode of fever morning. Send blood cultures 2, UA and urine culture if indicated, sputum culture Heme: -Thrombocytopenia Dr. Campa following. HIT screen negative. -Heparin gtt. discontinued following cardiac cath. Continue Lovenox 40 mg subcutaneous daily DVT prophylaxis. -Worsening, no evidence of bleed Endocrine: -Holding metformin thousand milligrams twice daily, sitagliptin 100 mg daily sliding scale insulin with aspart insulin high protocol for glycemic control. -Started stress dose steroids with hydrocortisone 50 mill grams IV every 6 hourly on 06/23 due to borderline blood pressures and recent prednisone use -switched to Solu-Medrol 80 mg IV every 12 hourly on 06/27. Now on tapering dose of Solu-Medrol 40 mg IV every 12 hours. Detemir 10 units subcu every 12 hours. Regular insulin, high dose every 4 hours Prophylaxis: PPI/SCDs. Continue Lovenox 40 mg subcutaneous daily for DVT prophylaxis. Dr. Calderon discussed with Dr. Etienne Villegas on 06/27. No family present at bedside. I discussed with patient's in detail yesterday at bedside multiple times throughout the day. Level 2 follow-up.
[2018-07-04] MEDS: Brimonidine 0.15% Opth Drops 5 ML Bottle EACH EYE SCH ×3 (09:58→20:33)
[2018-07-04] MEDS: Hypromellose 0.3% Opth Gel 10 GM Bottle EACH EYE SCH ×2 (09:58→20:35)
[2018-07-04] MEDS: QUEtiapine 25 MG Tablet NG/OG SCH ×2 (09:59→14:41)
[2018-07-04 10:35] LABS: ABG Base Excess 3.3 mmol/L (-2-2); ABG PCO2 38 mmHg (38-42); ABG PO2 112 mmHG (61-120)
[2018-07-04] MEDS: Enoxaparin Inj 40 MG/0.4 ML Syringe SQ SCH (11:52)
[2018-07-04] MEDS: MethylPREDNISolone Sod Succinate Inj 40 MG/ML Vial IV.PUSH SCH (11:53)
--- NOTE | 2018-07-04 12:10 | P.PNCA ---
Subjective Interval history: alert in nad Physical Exam Vital signs: Vital Signs 07/03/18 13:00 07/03/18 13:30 07/03/18 14:00 Temperature Pulse Rate 70 73 72 Respiratory Rate 21 28 H 22 Blood Pressure 105/58 L 98/55 L 100/56 L Pulse Oximetry 100 100 100 07/03/18 14:30 07/03/18 15:00 07/03/18 15:30 Temperature Pulse Rate 82 81 83 Respiratory Rate 27 H 23 22 Blood Pressure 104/53 L 120/61 134/77 Pulse Oximetry 100 100 100 07/03/18 16:00 07/03/18 16:30 07/03/18 16:48 Temperature 99 F Pulse Rate 84 81 82 Respiratory Rate 25 H 28 H 21 Blood Pressure 120/58 L 104/63 Pulse Oximetry 100 100 100 07/03/18 17:00 07/03/18 17:31 07/03/18 18:00 Temperature Pulse Rate 88 84 80 Respiratory Rate 31 H 25 H 28 H Blood Pressure 112/57 L 125/79 123/57 L Pulse Oximetry 100 100 100 07/03/18 18:30 07/03/18 19:00 07/03/18 19:22 Temperature Pulse Rate 91 H 81 Respiratory Rate 22 17 16 Blood Pressure 127/68 114/54 L Pulse Oximetry 100 100 100 07/03/18 19:31 07/03/18 20:00 07/03/18 20:02 Temperature 98.4 F Pulse Rate 79 76 82 Respiratory Rate 16 18 20 Blood Pressure 90/52 L 107/56 L 117/57 L Pulse Oximetry 100 100 100 07/03/18 20:30 07/03/18 21:00 07/03/18 21:07 Temperature Pulse Rate 76 79 72 Respiratory Rate 18 20 16 Blood Pressure 107/56 L 96/56 L Pulse Oximetry 100 100 07/03/18 21:31 07/03/18 22:00 07/03/18 22:01 Temperature Pulse Rate 72 70 72 Respiratory Rate 16 19 20 Blood Pressure 110/59 L 122/59 L Pulse Oximetry 100 100 100 07/03/18 22:33 07/03/18 22:57 07/03/18 23:00 Temperature Pulse Rate 70 70 Respiratory Rate 18 16 23 Blood Pressure 102/59 L 107/59 L Pulse Oximetry 100 100 99 07/03/18 23:30 07/04/18 00:00 07/04/18 00:31 Temperature Pulse Rate 71 70 70 Respiratory Rate 17 17 17 Blood Pressure 106/59 L 101/54 L 101/54 L Pulse Oximetry 98 100 100 07/04/18 01:00 07/04/18 01:30 07/04/18 01:55 Temperature Pulse Rate 71 71 Respiratory Rate 21 18 16 Blood Pressure 105/55 L 98/56 L Pulse Oximetry 97 100 98 07/04/18 02:00 07/04/18 02:01 07/04/18 02:30 Temperature Pulse Rate 71 70 73 Respiratory Rate 16 16 17 Blood Pressure 112/55 L 110/57 L Pulse Oximetry 98 96 98 07/04/18 03:00 07/04/18 03:30 07/04/18 03:51 Temperature Pulse Rate 71 76 77 Respiratory Rate 16 16 16 Blood Pressure 105/56 L 109/60 Pulse Oximetry 98 100 07/04/18 04:00 07/04/18 04:18 07/04/18 04:30 Temperature Pulse Rate 74 78 Respiratory Rate 18 17 16 Blood Pressure 112/80 107/64 Pulse Oximetry 100 97 98 07/04/18 06:00 07/04/18 08:00 07/04/18 08:14 Temperature 99.6 F Pulse Rate 78 87 Respiratory Rate 16 30 H Blood Pressure 109/58 L Pulse Oximetry 99 100 07/04/18 09:00 Temperature Pulse Rate 105 H Respiratory Rate 17 Blood Pressure Pulse Oximetry Intake & Output 07/03/18 07/04/18 07/04/18 18:59 06:59 18:59 Intake Total 1230 / 1230 926 / 926 Output Total 1999 2625 / 2625 Balance -770 / -770 -1699 / -1699 Intake: IV 350 / 350 Precedex Inj 1,000 MCG In NS 250 / 250 Inj 240 ML @ 0.2 MCG/KG/HR 3.6 mls/hr IV.CONT TITRATE PRN Rx#: [id number] Maxipime Inj 2,000 MG In NS Inj 100 / 100 100 ML @ 200 mls/hr IV.SIG Q12H MONICA Rx#:[id number] Oral 0 / 0 Tube Feeding 480 / 480 726 / 726 Water Bolus Amount 400 / 400 200 / 200 Output: Urine 1999 Urine Amount (Catheter) 625 / 625 Indwelling Urethral Catheter 625 / Other: Date of Last Bowel Movement 07/03/18 07/03/18 07/03/18 # Bowel Movements 0 - Urinary Catheter Management Indwelling Urethral Catheter Cath placed during this visit: yes Reason for continuing: Other continuation reason Insertion date: 06/20/18 Insertion time: 21:24 Assessment and Plan - Assessment (1) Cardiomyopathy Code(s): I42.9 - Cardiomyopathy, unspecified Status: Acute (2) Cardiomyopathy Code(s): I42.9 - Cardiomyopathy, unspecified Status: Acute (3) PVD (peripheral vascular disease) Code(s): I73.9 - Peripheral vascular disease, unspecified Status: Acute (4) PVD (peripheral vascular disease) Code(s): I73.9 - Peripheral vascular disease, unspecified Status: Acute (5) Tobacco abuse Code(s): Z72.0 - Tobacco use Status: Acute (6) Respiratory failure Code(s): J96.90 - Respiratory failure, unspecified, unspecified whether with hypoxia or hypercapnia Status: Acute (7) Non-ST elevated myocardial infarction (non-STEMI) Code(s): I21.4 - Non-ST elevation (NSTEMI) myocardial infarction Status: Acute (8) Pulmonary edema cardiac cause Code(s): I50.1 - Left ventricular failure, unspecified Status: Acute - Plan 1.) NICM - end stage, euvolemic, trial of dobutamine to facilitate extubation, bridge to transfer for heart transplant eval, per cm note, refuses in state transfer, requesting transfer to [facility], d/w Dr Solis; beta ana and hellen held due to need for inotropic and bp support, he has hypernatremia 2.) CAD - nonobstructive, continue aspirin, pravachol 3.) Encephalopathy - moderate per EEG on sedation, neuro following 4.) d/w case with at the bedside 07/03/18 5.) Respiratory failure - he is euvolemic, appears to be due to pulmonary and/ or encephalopathic etilology, remains intubated (6) Respiratory failure Qualifiers: Chronicity: acute Respiratory failure complication: hypoxia Qualified Code(s ): J96.01 - Acute respiratory failure with hypoxia
[2018-07-04] MEDS: Dexmedetomidine Inj 1,000 MCG in Sodium Chlor 0.9% Inj 240 ML IV.CONT PRN (14:52)
--- NOTE | 2018-07-04 15:56 | CT ---
EXAM DATE: 07/04/2018 3:48 PM EDT AGE/SEX: 72 years / Male INDICATIONS: Altered mental status. CLINICAL DATA: This is the patient's initial encounter. Patient reports that signs and symptoms have been present for 1 day and indicates a pain score of Nonresponsive. MEDICAL/SURGICAL HISTORY: Chronic obstructive pulmonary disease. Gastroesophageal reflux disease. Congestive heart failure. Hypertension, diabetes, encephalopathy. Pacemaker. Defibrillator. RADIATION DOSE: 42.69 CTDI (mGy) COMPARISON: [facility] [place], CT HEAD W/O CONTRAST, 06/21/2018. . TECHNIQUE: CT of the head without contrast. Using automated exposure control and adjustment of the mA and/or kV according to patient size, radiation dose was kept as low as reasonably achievable to ob tain optimal diagnostic quality images. DICOM format image data is available electronically for revi ew and comparison. FINDINGS: Cerebrum: There is moderate generalized cerebral atrophy. Ventricles are normal given the degree of atrophy. There is moderate periventricular white matter low attenuation. No midline shift, mass le david, hemorrhage or acute infarction. No extraaxial fluid collections are seen. Posterior Fossa: The cerebellum and brainstem demonstrate no acute abnormality. The 4th ventricle is midline. The cerebellopontine angle is within normal limits. Extracranial: There is increased fluid in the right mastoid air cells and mild mucoperiosteal thicke emeka is present within the sphenoid and ethmoid sinus. Skull: The calvaria is intact. No skull fracture. CONCLUSION: 1. No acute intracranial abnormality is identified. Stable chronic findings include generalized atro phy and chronic periventricular white matter change. 2. Increased fluid in the right mastoid air cells and mild but new mucoperiosteal thickening in the ethmoid and sphenoid sinus. . Electronically signed by: Michael Jasso MD 07/04/2018 3:55 PM EDT
--- NOTE | 2018-07-04 16:10 | CT ---
EXAM DATE: 07/04/2018 3:57 PM EDT AGE/SEX: 72 years / Male INDICATIONS: Right lower quadrant bulging. CLINICAL DATA: This is the patient's initial encounter. Patient reports that signs and symptoms have been present for 1 day and indicates a pain score of Nonresponsive. MEDICAL/SURGICAL HISTORY: Chronic obstructive pulmonary disease. Gastroesophageal reflux disea se. Congestive heart failure. Hypertension, diabetes, encephalopathy. Pacemaker. Defibrillator. RADIATION DOSE: 11.23 CTDI (mGy) COMPARISON: No prior exams available for comparison. TECHNIQUE: Multiple contiguous axial images were obtained through the abdomen. Images were obtained using multiple row detector helical technique. Using automated exposure control and adjustment of the mA and/or kV according to patient size, radiation dose was kept as low as reasonably achievable to o btain optimal diagnostic quality images. DICOM format image data is available electronically for rev iew and comparison. FINDINGS: Lower Lungs: There is a small focus of airspace infiltrate in the posterior right lung base Liver: The liver has a homogeneous density without space-occupying lesion. There is no dilation of th e biliary tree. Spleen: Homogeneous density without enlargement. Pancreas: Unremarkable without mass or calcification. Kidneys: Small bilateral renal cysts. No evidence of hydronephrosis. Adrenal Glands: Unremarkable. Aorta: Dense atherosclerotic vascular calcifications involving the aorta and branch vessels. Bowel/Mesentery: The colon is dilated with air and content, most conspicuously the cecum is dilated to greater than 10 cm. There is no focal transition point to suggest obstructive process, rather this is likely adynamic ileus. The small bowel is normal in caliber. A nasogastric tube is present in the decompressed stomach Abdominal Wall: Intact.. Retroperitoneum: No evidence of adenopathy in the retrocrural, para-aortic, or deep pelvic regions. Bladder: Nondependent air in the bladder, likely related to recent catheterization. Reproductive Organs: No abnormal masses or calcifications seen. Inguinal: The inguinal region is unremarkable without evidence of adenopathy. Bony Structures: Unremarkable. CONCLUSION: The bulging in the right lower quadrant is related to distention of the cecum. Electronically signed by: Michael Lentz MD 07/04/2018 4:08 PM EDT
--- NOTE | 2018-07-04 17:50 | XR ---
EXAM DATE: 07/04/2018 5:46 PM EDT AGE/SEX: 72 years / Male INDICATIONS: Endotracheal tube placement. CLINICAL DATA: This is the patient's initial encounter. Patient reports that signs and symptoms have been present for 2 days and indicates a pain score of Nonresponsive. MEDICAL/SURGICAL HISTORY: . Chronic obstructive pulmonary disease. Gastroesophageal reflux dise ase. Congestive heart failure. Hypertension, diabetes, encephalopathy. Defibrillator. Pacemaker. COMPARISON: [facility], CHEST 1V SINGLE AP, 07/03/2018. . FINDINGS: ET tube and nasogastric tube in good position. Defibrillator pacer on the left. Cardiac silhouette is appropriate. No failure failure. Minimal parenchymal changes right base. The portion of the bony ske leton visualized is unremarkable. CONCLUSION: Support apparatus in good position. New minimal parenchymal changes right base. Electronically signed by: Dominik Montanez MD 07/04/2018 5:49 PM EDT
[2018-07-05] MEDS: Dextrose 5% in Water Inj 1,000 ML IV.CONT SCH ×2 (00:06→18:08)
[2018-07-05] MEDS: Insulin NovoLOG Aspart Correctional Sugar Inj SQ SCH ×7 (00:07→23:50)
[2018-07-05] MEDS: Dexmedetomidine Inj 1,000 MCG in Sodium Chlor 0.9% Inj 240 ML IV.CONT PRN ×2 (03:10→22:03)
[2018-07-05] MEDS: Baclofen 10 MG Tablet PO SCH ×3 (05:15→22:03)
[2018-07-05 05:33] LABS: Alanine Aminotransferase 149 U/L (12-78); Albumin 2.2 g/dL (3.4-5.0); Alkaline Phosphatase 80 U/L (45-117); Anion Gap 10 meq/L (5-15); Aspartate Aminotransferase 105 U/L (15-37); Blood Urea Nitrogen 82 mg/dL (7-18); Calcium 8.2 mg/dL (8.5-10.1); Carbon Dioxide 28.1 meq/L (21.0-32.0); Chloride 114 meq/L (98-107); Glomerular Filtration Rate 40 mL/min (>89); Glucose,Random 118 mg/dL (74-106); Potassium 3.6 meq/L (3.5-5.1); Total Protein 6.5 g/dL (6.4-8.2)
[2018-07-05 05:38] LABS: Baso % (Auto) 0.4 % (0.0-2.0); Eos % (Auto) 0.4 % (0.0-4.0); Hematocrit 33.9 % (39.0-51.0); Hemoglobin 11.1 gm/dL (13.0-17.0); Lymph # (Auto) 1.3 th/mm3 (1.0-4.8); Mean Corpuscular HGB Conc 32.6 % (32.0-36.0); Mean Corpuscular Hemoglobin 31.1 pg (27.0-34.0); Mean Corpuscular Volume 95.3 fL (80.0-100.0); Mean Platelet Volume 12.2 fL (7.0-11.0); Mono # (Auto) 0.4 th/mm3 (0.0-0.9); Mono % (Auto) 5.9 % (0.0-8.0); Neut # (Auto) 5.2 th/mm3 (1.8-7.7); Neut % (Auto) 74.3 % (16.0-70.0); Platelet Count 55 th/mm3 (150-450); Red Blood Count 3.56 mil/mm3 (4.50-5.90); Red Cell Distribution Width 16.3 % (11.6-17.2)
[2018-07-05 05:43] LABS: Sodium 152 meq/L (136-145)
--- NOTE | 2018-07-05 08:25 | P.PNCC ---
Subjective Subjective Remarks/Hospital Course: Elderly male with a medical history significant for viral cardiomyopathy who was traveling on vacation from [place] with his family in [place] and today developed chest pain with worsening shortness of breath for which EMS was called by family. Patient was extremely short of breath on the arrival and hypoxic and they proceeded with endotracheal intubation and patient was transferred to the ER. In the ER it was noted that his cuff was leaking hence ET tube was exchanged by ER physician and patient was placed on mechanical ventilation. Per his family he has a defibrillator and is followed by his metal off bearer in [place] whom he saw in December of this year. He reportedly does not take any diuretic. Chest x-ray done in the ER revealed pulmonary edema. EKG revealed atrial fibrillation. Patient was accepted for admission by critical care medicine service. When I evaluated him in the ER he was sedated with propofol, orally intubated on mechanical ventilation. History was obtained by reviewing records, discussion with family as well as ER physician. Subjective 06/21: Afebrile. Hemodynamically stable. Troponin bumped 14. Started on heparin drip. Sedated with propofol and fentanyl drips. Arousable the ventilator and is very agitated will attempt to withdrawal tube. PEEP down to 5. 06/22: Sedated, orally intubated on mechanical ventilation. Gets agitated unenlightening sedation so Precedex added in addition to propofol and fentanyl. CPAP trials ongoing to decide extubation. Cardiac cath postponed by Dr. Noonan in view of questionable neurologic status. 06/23: Patient was extubated yesterday however was requiring significant amount of O2 post extubation with a facemask as well as nasal cannula. This morning around 4 AM due to increased work of breathing and hypoxia he was reintubated by Dr. Lino and placed back on mechanical ventilation. Currently he is sedated , orally intubated on mechanical ventilation. Postintubation chest x-ray shows ET tube in appropriate position and pulmonary edema pattern with perihilar infiltrates bilaterally. 06/24: Remains sedated, orally intubated on mechanical ventilation. 06/25: Remains sedated, orally intubated on mechanical ventilation. 06/26: Remains sedated, orally intubated on mechanical ventilation. Pacer backup rate increased to 60/min yesterday due to hypotension. Awaiting cardiac catheterization. 06/27: Sedated, orally intubated on mechanical ventilation. Underwent cardiac catheterization which revealed nonobstructive CAD. Patient has nonischemic dilated cardiomyopathy per discussion with Dr. Noonan. Initiated dobutamine 2.5 mics per KG per minute on 06/26. Filling pressures not elevated per Dr. Noonan on cardiac cath. 06/28: Sedated, arousable, orally intubated on mechanical ventilation. IV hydrocortisone switched to Solu-Medrol yesterday. Pulmonary consult with Dr. Villegas as patient appears to have significant COPD in addition to cardiomyopathy. Remains on dobutamine at 1.5 mics per KG per minute. Diuresing well. Does not appear to be fluid overloaded at this time. Daily CPAP trials ongoing. 06/29: Remains intubated sedated with Precedex and fentanyl. Remains on dobutamine. Patient is able to track and follow some commands. CXR appears clear today 06/30 Remains intubated and on low dose dobutamine 1.25 mcg/kg/min. Will place on sedation vacation and CPAP trial and plan for trial of extubation as tolerated. Has continued diuresis and CXR is now clear of edema. 07/01: 07/01 Tolerates CPAP. Mental status currently seems limiting factor to extubation but there is some improvement compared with yesterday. Now on seroquel, off fentanyl drip ( states opioids have historically caused delirium for him). On precedex as needed, weaning down. Yesterday he was staring ahead, roving head movements, wild-eyed expressions as if hallucinating , very weak in all extremities. Today he does NOT follow commands but by this evening he does track, moves extremities vigorously and purposefully, strong cough, lifts head up off bed. Appears he will soon be appropriate for trial of extubation but will wait in effort to optimize to full ability, as failure of extubation trial will necessitate trach (currently day #9 following reintubation) is aware. 07/02: No events over the night. The patient tolerated CPAP this a.m. but he became increasingly agitated and tachypneic, currently now back on full support. Sedation is achieved with dexmedetomidine at 1. T-max of 99.1. I/O 4575/3200. 07/03: Episode of agitation over the night requiring increasing Precedex and dose of Ativan. This a.m. patient on dexmedetomidine at 1.4 sedated arousable, not following commands. T-max of 100.4. Urine output of 1400 mL's over the last 24 hours. 07/04: No events over the night. Patient tolerated CPAP yesterday for approximately 6 hours however mental status remains poor. T-max of 100.4 yesterday morning, afebrile since then. Diuresed great over the last 24 hours, 4625 mL's since yesterday, almost 2.5 L negative fluid balance. CT abdomen and pelvis not yet done. Subjective: 07/05: No events over the night. CT abdomen and pelvis report reviewed, cecum dilation up to 10 cm. Tube feeds were stopped and NG tube was placed on low intermittent wall suction. Patient remains altered with episodes of severe agitation. Currently on Precedex at 0.8. T-max of 100.5 yesterday at noon, afebrile since then. Urine output remains adequate. I/O 3035/1850. Objective Vital Signs / I&O: Vital Signs 07/04/18 09:00 07/04/18 10:00 07/04/18 12:00 Temperature 100.5 F H Pulse Rate 105 H 93 H 76 Respiratory Rate 17 16 Blood Pressure 94/53 L Pulse Oximetry 100 07/04/18 14:00 07/04/18 15:50 07/04/18 16:00 Temperature 98.5 F Pulse Rate 75 83 Respiratory Rate 25 H Blood Pressure 105/58 L Pulse Oximetry 100 07/04/18 16:08 07/04/18 16:10 07/04/18 18:00 Temperature Pulse Rate 80 75 Respiratory Rate 17 17 Blood Pressure Pulse Oximetry 100 07/04/18 19:25 07/04/18 20:00 07/04/18 21:26 Temperature 98.3 F Pulse Rate 79 74 Respiratory Rate 17 16 16 Blood Pressure 93/51 L Pulse Oximetry 100 100 07/04/18 22:00 07/05/18 00:00 07/05/18 00:48 Temperature 98.3 F Pulse Rate 79 75 Respiratory Rate 16 16 Blood Pressure 116/60 Pulse Oximetry 100 100 07/05/18 02:00 07/05/18 04:00 07/05/18 05:25 Temperature 98.3 F Pulse Rate 70 84 64 Respiratory Rate 16 16 Blood Pressure 93/56 L Pulse Oximetry 97 07/05/18 05:26 07/05/18 06:00 Temperature Pulse Rate 84 Respiratory Rate 16 Blood Pressure Pulse Oximetry 99 Intake & Output 07/04/18 07/05/18 07/05/18 18:59 06:59 18:59 Intake Total 1435 / 1435 1600 / 1600 Output Total 1000 / 1000 850 / 850 Balance 435 / 435 750 / 750 Weight 71 kg Intake: IV 250 / 250 1200 / 1200 Precedex Inj 1,000 MCG In NS 250 / 250 Inj 240 ML @ 0.2 MCG/KG/HR 3.6 mls/hr IV.CONT TITRATE PRN Rx#: [id number] D5W Inj 1,000 ML @ 60 mls/hr IV 1000 / 1000 .CONT .[id number] MONICA Rx#:[id number] Maxipime Inj 2,000 MG In NS Inj 200 / 200 100 ML @ 200 mls/hr IV.SIG Q12H MONICA Rx#:[id number] Oral 0 / 0 0 / 0 Tube Feeding 665 / 665 0 / 0 Tube Irrigant 120 / 120 Water Bolus Amount 400 / 400 400 / 400 Output: Urine 1000 / 1000 675 / 675 Gastric Drainage 0 / 0 175 / 175 Left Nare Nasogastric Tube 0 / 0 175 / 175 Other: Date of Last Bowel Movement 07/03/18 07/03/18 # Bowel Movements 0 0 Result Diagrams: 07/06/18 03:57 07/06/18 03:57 Objective Remarks: GENERAL: Elderly gentleman, intubated, sedated, lethargic, arousable, ill- appearing. HEENT: Pupils are equal, and reactive. Sclerae are anicteric. Neck is soft, supple without rigidity. Orally intubated. No JVD. CARDIOVASCULAR: Regular S1 and S2, no murmurs. Permanent pacemaker over the left chest. RESPIRATORY: Clear breath sounds bilateral. No wheezes. Good air entry. GASTROINTESTINAL: Abdomen soft, appears non-tender, + distention over the right lower quadrant. Bowel sounds are decreased. MUSCULOSKELETAL: Warm, extremities with trace bilateral lower extremity edema. No clubbing. NEUROLOGICAL: Intubated, lethargic, arousable, not following commands. Assessment and Plan - Assessment and Plan Plan: Assessment: Acute respiratory failure on mechanical ventilation -unchanged, on 0.35 FiO2 Acute decompensated CHF - systolic and dialstolic EF 20% -appears euvolemic Staph aureus pneumonia -had episode of fever, T-max of 100.5, afebrile since yesterday at noon Dilated cardiomyopathy Atrial fibrillation -rate controlled Non-STEMI FIDE -creatinine remains slightly elevated but urine output remains adequate Hypernatremia -improved Thrombocytopenia -unchanged Adynamic ileus - ?Chelle DM B/L carotid Stenosis 40-59% Erectile Dysfunction PAD LBBB- chronic Hypertension COPD History of pacemaker/defibrillator placement Hyperlipidemia Glaucoma Normocytic anemia Plan: Neuro: -Seroquel decreased to 25 bid -Precedex drip, maintain RASS -1 to 0 -Follow neuro status -Baclofen decreased to 10 mg 3 times daily/home medications -Gabapentin at 300 mg every 8 hourly has been on hold. Continue brimonidine 0.15% 2 times daily Cardiovascular: -Non-ST elevation DC. cardiology Dr. Noonan following for decompensated CHF, history of cardiomyopathy and positive troponin. -A. fib appears rate controlled. Continue aspirin 162 mg daily. Low-dose beta- ana metoprolol tartrate 12.5 mg twice daily. -No ENA inhibitor secondary to acute kidney injury. Off heparin GTT. Holding cilostazol 50 mg twice daily. Simvastatin 20 mg daily/40 mg pravastatin substituted. -Cardiac cath per Dr. Noonan. Angiographically mild to moderate 3-vessel coronary artery disease. EF 20%. -Continue diuresis with Lasix, but decrease dose to daily Pulmonary: -On mechanical ventilation, PRVC. No auto PEEP, patient is synchronized with the ventilator. PIP is 20. -Patient did not tolerate CPAP trial on lower pressure support than 15 yesterday. We will attempt again today -Albuterol/ipratropium every 4 hours with albuterol aerosols every 2 hours as needed dyspnea. -Vent bundle -Continue Solu-Medrol 40 mg but decrease frequency to daily -stop date -Pulm consult Dr. Shayy Villegas following for COPD GI/liver: -Tube feeds Glucerna 1.5 and 55 mL/h -stopped due to ileus -NG tube placed to low intermittent wall suction -Continue n.p.o. -Daily KUB -GI consult FEN/Renal/: -Continue D5W at 60 mL's per hour -Continue free water to 200 every 6 hours -Decrease Lasix to 40 IV daily -Strict intake output, monitor and replete electrolytes, follow BUN/creatinine. ID: -Completed days of cefepime, stopped on 07/04 -Sputum cultures growing MSSA. Stopped Zyvox on 06/26 -New cultures are pending Heme: -Thrombocytopenia Dr. Campa following. HIT screen negative. -Heparin gtt. discontinued following cardiac cath. Continue Lovenox 40 mg subcutaneous daily DVT prophylaxis. -Worsening, no evidence of bleed Endocrine: -Holding metformin thousand milligrams twice daily, sitagliptin 100 mg daily sliding scale insulin with aspart insulin high protocol for glycemic control. -Started stress dose steroids with hydrocortisone 50 mill grams IV every 6 hourly on 06/23 due to borderline blood pressures and recent prednisone use -Switched to Solu-Medrol 80 mg IV every 12 hourly on 06/27. Now on tapering dose of Solu-Medrol 40 mg IV every 12 hours. -Detemir 10 units subcu every 12 hours. Regular insulin, high dose every 4 hours Prophylaxis: PPI/SCDs. Continue Lovenox 40 mg subcutaneous daily for DVT prophylaxis. Dr. Calderon discussed with Dr. Etienne Villegas on 06/27. I discussed patient's condition in detail with multiple times yesterday. Level 2 follow-up.
[2018-07-05] MEDS: Senna/Docusate Sodium 8.6/50 MG Tablet PO SCH ×2 (09:14→20:44)
[2018-07-05] MEDS: Enoxaparin Inj 40 MG/0.4 ML Syringe SQ SCH (09:14)
[2018-07-05] MEDS: Brimonidine 0.15% Opth Drops 5 ML Bottle EACH EYE SCH ×3 (09:16→20:44)
[2018-07-05] MEDS: Insulin Detemir Inj 1,000 UNIT/10 ML Vial SQ SCH ×2 (09:17→20:43)
[2018-07-05] MEDS: MethylPREDNISolone Sod Succinate Inj 40 MG/ML Vial IV.PUSH SCH (09:17)
[2018-07-05] MEDS: Hypromellose 0.3% Opth Gel 10 GM Bottle EACH EYE SCH ×2 (09:17→20:43)
--- NOTE | 2018-07-05 09:24 | XR ---
EXAM DATE: 07/05/2018 9:20 AM EDT AGE/SEX: 72 years / Male INDICATIONS: Follow up cecal distension of 10 cm. CLINICAL DATA: This is the patient's subsequent encounter. Patient reports that signs and symptoms h ave been present for 1 week and indicates a pain score of Nonresponsive. MEDICAL/SURGICAL HISTORY: Non-responsive. Non-responsive. COMPARISON: [facility] – [place], CT ABDOMEN & PELVIS W/O CONTRAST, 07/04/2018. . FINDINGS: On this examination there is an NG tube in place. There is no significant dilatation of the small donal wel. There continues to be some focal distention of the cecum with stool and air. The cecal distentio n measures approximately 12.1 cm on the KUB. This is not significantly changed compared to the prior study. The lung bases remain grossly clear. The bony structures are grossly intact. CONCLUSION: There continues to be focal cecal distention with some stool and air measuring approximately 12.1 cm. Electronically signed by: Arthur Ayala MD 07/05/2018 9:23 AM EDT
--- NOTE | 2018-07-05 09:25 | XR ---
EXAM DATE: 07/05/2018 9:17 AM EDT AGE/SEX: 72 years / Male INDICATIONS: Respiratory disease. CLINICAL DATA: This is the patient's subsequent encounter. Patient reports that signs and symptoms h ave been present for 1 week and indicates a pain score of Nonresponsive. MEDICAL/SURGICAL HISTORY: Non-responsive. Non-responsive. COMPARISON: [facility], CHEST 1V SINGLE AP, 07/04/2018. . FINDINGS: The support devices remain in place. There is no pneumothorax. There is some mild atelectasis in both lung bases. Otherwise the rest the lung woodard remain grossly clear. There are no pleural effusions or pulmonary edema. There is a pacemaker overlying the left chest. The bony structures are stable. No significant changes compared to the prior study. CONCLUSION: Mild bibasal atelectasis. No significant changes. Electronically signed by: Arthur Ayala MD 07/05/2018 9:24 AM EDT
[2018-07-05] MEDS: QUEtiapine 25 MG Tablet NG/OG SCH ×2 (11:46→14:41)
[2018-07-05] MEDS: Metoprolol Tartrate 25 MG Tablet PO SCH ×2 (11:46→20:44)
--- NOTE | 2018-07-05 12:16 | P.PNCA ---
Subjective Interval history: intubated, sedated Physical Exam Vital signs: Vital Signs 07/04/18 14:00 07/04/18 15:50 07/04/18 16:00 Temperature 98.5 F Pulse Rate 75 83 Respiratory Rate 25 H Blood Pressure 105/58 L Pulse Oximetry 100 07/04/18 16:08 07/04/18 16:10 07/04/18 18:00 Temperature Pulse Rate 80 75 Respiratory Rate 17 17 Blood Pressure Pulse Oximetry 100 07/04/18 19:25 07/04/18 20:00 07/04/18 21:26 Temperature 98.3 F Pulse Rate 79 74 Respiratory Rate 17 16 16 Blood Pressure 93/51 L Pulse Oximetry 100 100 07/04/18 22:00 07/05/18 00:00 07/05/18 00:48 Temperature 98.3 F Pulse Rate 79 75 Respiratory Rate 16 16 Blood Pressure 116/60 Pulse Oximetry 100 100 07/05/18 02:00 07/05/18 04:00 07/05/18 05:25 Temperature 98.3 F Pulse Rate 70 84 64 Respiratory Rate 16 16 Blood Pressure 93/56 L Pulse Oximetry 97 07/05/18 05:26 07/05/18 06:00 07/05/18 08:00 Temperature 98.5 F Pulse Rate 84 94 H Respiratory Rate 16 16 Blood Pressure 85/53 L Pulse Oximetry 99 97 07/05/18 09:44 07/05/18 10:00 Temperature Pulse Rate 89 96 H Respiratory Rate 17 Blood Pressure Pulse Oximetry 99 Intake & Output 07/04/18 07/05/18 07/05/18 18:59 06:59 18:59 Intake Total 1435 / 1435 1600 / 1600 Output Total 1000 / 1000 850 / 850 Balance 435 / 435 750 / 750 Weight 71 kg Intake: IV 250 / 250 1200 / 1200 Precedex Inj 1,000 MCG In NS 250 / 250 Inj 240 ML @ 0.2 MCG/KG/HR 3.6 mls/hr IV.CONT TITRATE PRN Rx#: [id number] D5W Inj 1,000 ML @ 60 mls/hr IV 1000 / 1000 .CONT .[id number] MONICA Rx#:[id number] Maxipime Inj 2,000 MG In NS Inj 200 / 200 100 ML @ 200 mls/hr IV.SIG Q12H MONICA Rx#:[id number] Oral 0 / 0 0 / 0 Tube Feeding 665 / 665 0 / 0 Tube Irrigant 120 / 120 Water Bolus Amount 400 / 400 400 / 400 Output: Urine 1000 / 1000 675 / 675 Gastric Drainage 0 / 0 175 / 175 Left Nare Nasogastric Tube 0 / 0 175 / 175 Other: Date of Last Bowel Movement 07/03/18 07/03/18 07/03/18 # Bowel Movements 0 0 - Urinary Catheter Management Indwelling Urethral Catheter Cath placed during this visit: yes Reason for continuing: Other continuation reason Insertion date: 06/20/18 Insertion time: 21:24 Assessment and Plan - Assessment (1) Cardiomyopathy Code(s): I42.9 - Cardiomyopathy, unspecified Status: Acute (2) Cardiomyopathy Code(s): I42.9 - Cardiomyopathy, unspecified Status: Acute (3) PVD (peripheral vascular disease) Code(s): I73.9 - Peripheral vascular disease, unspecified Status: Acute (4) PVD (peripheral vascular disease) Code(s): I73.9 - Peripheral vascular disease, unspecified Status: Acute (5) Tobacco abuse Code(s): Z72.0 - Tobacco use Status: Acute (6) Respiratory failure Code(s): J96.90 - Respiratory failure, unspecified, unspecified whether with hypoxia or hypercapnia Status: Acute (7) Non-ST elevated myocardial infarction (non-STEMI) Code(s): I21.4 - Non-ST elevation (NSTEMI) myocardial infarction Status: Acute (8) Pulmonary edema cardiac cause Code(s): I50.1 - Left ventricular failure, unspecified Status: Acute - Plan 1.) NICM - end stage, euvolemic, refuses in state transfer, requesting transfer to [facility], d/w Dr Solis; beta ana and hellen held due to hypotension, diuresing to optimize potential extubation, he has hypernatremia 2.) CAD - nonobstructive, continue aspirin, pravachol 3.) Encephalopathy - moderate per EEG on sedation, neuro following 4.) d/w case with at the bedside 07/04/18 5.) Respiratory failure - he is euvolemic, appears to be due to pulmonary and/ or encephalopathic etilology, remains intubated, prolonged failure to wean from vent, his is considering trach placement (6) Respiratory failure Qualifiers: Chronicity: acute Respiratory failure complication: hypoxia Qualified Code(s ): J96.01 - Acute respiratory failure with hypoxia
--- NOTE | 2018-07-05 13:42 | P.DIET ---
Nutritional Evaluation Type of nutrition evaluation: follow-up Nutrition consult regarding: Tube Feeding Objective - Diagnosis Hypoxic Respiratory Failure, Pulmonary Edema - Objective % IBW: 93 (IBW = 166#) Body Weight Used for Calculations: Actual (70 kg) Energy Needs - Lower Range (kCal/kg): 25 Energy Needs - Upper Range (kCal/kg): 30 Lower Limit kCal/kg (kCals): 1,750 Upper Limit kCal/kg (kCals): 2,100 Lower Limit Protein Factor (Grams per Kg): 1.0 Upper Limit Protein Factor (Grams per Kg): 1.5 Lower Protein Needs (Protein): 70 Upper Protein Needs (Protein): 105 Dietitian Reviewed in Medical Record: Curent medications, Intake & Output, Labs , Medical history, Tube feeding Diet Order: NPO Assessment Assessment: Pt is at high nutrition risk 2' to his need for TFing. TF is currently on hold d /t dilated cecum. NG-T is to LIWS. When TF can be resumed, recommend continue Glucerna 1.5, recommend goal rate of 55 mls/hr to provide 1980 kcals, 109 gms protein and 1002 mls of free water. Labs, wts and clinical course reviewed: CBW = 71 kg. Recommendations: Glucerna 1.5 @ 55 mls/hr goal Dietitian to Monitor: Lab values, Glucose level, Intake & Output, Tube feeding tolerance, Medical course
--- NOTE | 2018-07-05 16:06 | P.PNPAL ---
Reason for Visit Reason for visit: a. To assist with evaluation and management of symptoms including: dyspnea, pain, agitation, constipation b. To assist medical decision maker(s) with: better understanding of current medical conditions; weighing benefits/burdens of medical treatment options; making medical treatment decisions. Subjective Subjective/Interval History: Patient resting in bed intubated on vent. He is mildly agitated. Opens eyes, shakes head, pulls at restraints, tries to bite on ET tube. Per RN they had to reposition tube to area in mouth where he had no teeth. He had upper front partial which is now missing. found bottom teeth in bed. Failing CPAP trials 2/2 agitation. Per RN he becomes more agitated with any intervention. He is on precedex 18ml/hr, baclofen. Was on Seroquel but this has been held d/ t low BP. RUQ abd distention persists. Distended but soft on exam, grimaces to palpation of distended area. Cecal distention seen on imaging. Per RN he is passing gas. Had scant "smear" of BM 07/03. GI planning rectal tube placement and if no relief, pt may need decompressive colonoscopy. has scheduled lactulose. Family/Friend Interactions: at bedside. Provided update. She wants to pursue trach/PEG, says all their children are "100% on board." She understands that even with tracheostomy , pt still requires ventilator. She feels if he has trach he may be less agitated. Objective Vital Signs: Vital Signs 07/04/18 15:50 07/04/18 16:00 07/04/18 16:08 Temperature 98.5 F Pulse Rate 83 Respiratory Rate 25 H 17 Blood Pressure 105/58 L Pulse Oximetry 100 100 07/04/18 16:10 07/04/18 18:00 07/04/18 19:25 Temperature Pulse Rate 80 75 Respiratory Rate 17 17 Blood Pressure Pulse Oximetry 100 07/04/18 20:00 07/04/18 21:26 07/04/18 22:00 Temperature 98.3 F Pulse Rate 79 74 79 Respiratory Rate 16 16 Blood Pressure 93/51 L Pulse Oximetry 100 07/05/18 00:00 07/05/18 00:48 07/05/18 02:00 Temperature 98.3 F Pulse Rate 75 70 Respiratory Rate 16 16 Blood Pressure 116/60 Pulse Oximetry 100 100 07/05/18 04:00 07/05/18 05:25 07/05/18 05:26 Temperature 98.3 F Pulse Rate 84 64 Respiratory Rate 16 16 16 Blood Pressure 93/56 L Pulse Oximetry 97 99 07/05/18 06:00 07/05/18 08:00 07/05/18 09:44 Temperature 98.5 F Pulse Rate 84 94 H 89 Respiratory Rate 16 17 Blood Pressure 85/53 L Pulse Oximetry 97 99 07/05/18 10:00 Temperature Pulse Rate 96 H Respiratory Rate Blood Pressure Pulse Oximetry Intake & Output 07/04/18 07/05/18 07/05/18 18:59 06:59 18:59 Intake Total 1435 / 1435 1600 / 1600 Output Total 1000 / 1000 850 / 850 Balance 435 / 435 750 / 750 Weight 71 kg Intake: IV 250 / 250 1200 / 1200 Precedex Inj 1,000 MCG In NS 250 / 250 Inj 240 ML @ 0.2 MCG/KG/HR 3.6 mls/hr IV.CONT TITRATE PRN Rx#: [id number] Inj 1,000 ML @ 60 mls/hr IV 1000 / 1000 .CONT .[id number] AMANDA Rx#:[id number] Maxipime Inj 2,000 MG In NS Inj 200 / 200 100 ML @ 200 mls/hr IV.SIG Q12H AMANDA Rx#:[id number] Oral 0 / 0 0 / 0 Tube Feeding 665 / 665 0 / 0 Tube Irrigant 120 / 120 Water Bolus Amount 400 / 400 400 / 400 Output: Urine 1000 / 1000 675 / 675 Gastric Drainage 0 / 0 175 / 175 Left Nare Nasogastric Tube 0 / 0 175 / 175 Other: Date of Last Bowel Movement 07/03/18 07/03/18 07/03/18 # Bowel Movements 0 0 Physical Exam: CONSTITUTIONAL/GENERAL: adequately nourished, in NAD SKIN: No jaundice, rashes, or lesions. No wounds seen anteriorly. Skin temperature appropriate. Not diaphoretic. HEAD: Atraumatic. Normocephalic. EYES: No scleral icterus. No injection or drainage. Fundi not examined. ENT: Nose without bleeding or purulent drainage. NGT CARDIOVASCULAR: RRR without murmurs, gallops, or rubs. heart sounds faint/ distant RESPIRATORY/CHEST: Symmetric, unlabored respirations. CTA GASTROINTESTINAL: Abdomen soft, distended RUQ, RUQ ttp. No hepato-splenomegaly, or palpable masses. No guarding. Bowel sounds present. TF running. GENITOURINARY: Without palpable bladder distension. Nevarez catheter in place. MUSCULOSKELETAL: BUE in restraints. Extremities without clubbing, cyanosis, or edema. No mottling or clubbing. NEUROLOGICAL: opens eyes, moves head. not following commands. sedated on vent. PSYCHIATRIC: unable to assess, pt sedated on vent Diagnostic Tests Laboratory: Laboratory Results - last 72 hr 07/02/18 07/02/18 07/03/18 18:52 20:28 00:32 WBC RBC Hgb Hct MCV MCH MCHC RDW Plt Count MPV Prelim Diff (Auto) Neut % (Auto) Lymph % (Auto) [place] % (Auto) Eos % (Auto) Baso % (Auto) Neut # (Auto) Lymph # (Auto) [place] # (Auto) Eos # (Auto) Baso # (Auto) WBC Differential Diff Scan Seg Neuts % (Manual) Band Neuts % (Manual) Lymphocytes % (Manual) Monocytes % (Manual) Metamyelocytes % (Man) Abs Neuts (Manual) Differential Comment Platelet Estimate Platelet Morphology Puncture Site Patient Temperature O2 Saturation ABG pH ABG pCO2 ABG pO2 ABG HCO3 ABG O2 Content ABG Base Excess ABG Methemoglobin Carlos Test Hemoglobin Carboxyhemoglobin O2 Delivery Device Vent Setting Inspired O2 Critical Value Sodium Potassium Chloride Carbon Dioxide Anion Gap BUN Creatinine Estimated GFR POC Glucose 243 H 211 H 176 H Random Glucose Calcium Phosphorus Magnesium Total Bilirubin AST ALT Alkaline Phosphatase Total Protein Albumin Urine Color Urine Clarity Urine pH Ur Specific [place] Urine Protein Urine Glucose (UA) Urine Ketones Urine Occult Blood Urine Nitrate Urine Bilirubin Urine Urobilinogen Ur Leukocyte Esterase Urine RBC Urine WBC Hyaline Casts Granular Casts Urine Mucus Micro UA Comment Urine Culture Comments 07/03/18 07/03/18 07/03/18 04:36 07:49 07:49 WBC 6.3 RBC 4.19 L Hgb 13.0 Hct 39.6 MCV 94.3 MCH 30.9 MCHC 32.8 RDW 16.2 Plt Count 44 L MPV 10.2 Prelim Diff (Auto) Slide review pending Neut % (Auto) 83.8 H Lymph % (Auto) 10.2 [place] % (Auto) 5.9 Eos % (Auto) 0.0 Baso % (Auto) 0.1 Neut # (Auto) 5.2 Lymph # (Auto) 0.6 L [place] # (Auto) 0.4 Eos # (Auto) 0.0 Baso # (Auto) 0.0 WBC Differential Manual diff final Diff Scan Seg Neuts % (Manual) 75 H Band Neuts % (Manual) 11 H Lymphocytes % (Manual) 9 Monocytes % (Manual) 4 Metamyelocytes % (Man) 1 Abs Neuts (Manual) 5.5 Differential Comment . Platelet Estimate Low L Platelet Morphology Normal Puncture Site Patient Temperature O2 Saturation ABG pH ABG pCO2 ABG pO2 ABG HCO3 ABG O2 Content ABG Base Excess ABG Methemoglobin Carlos Test Hemoglobin Carboxyhemoglobin O2 Delivery Device Vent Setting Inspired O2 Critical Value Sodium 152 H Potassium 3.7 Chloride 113 H Carbon Dioxide 27.6 Anion Gap 11 BUN 77 H Creatinine 1.49 H Estimated GFR 47 L POC Glucose 141 H Random Glucose 176 H Calcium 8.9 Phosphorus 2.9 Magnesium 2.7 H Total Bilirubin 0.7 AST 181 H ALT 192 H Alkaline Phosphatase 97 Total Protein 6.9 Albumin 2.6 L Urine Color Urine Clarity Urine pH Ur Specific [place] Urine Protein Urine Glucose (UA) Urine Ketones Urine Occult Blood Urine Nitrate Urine Bilirubin Urine Urobilinogen Ur Leukocyte Esterase Urine RBC Urine WBC Hyaline Casts Granular Casts Urine Mucus Micro UA Comment Urine Culture Comments 07/03/18 07/03/18 07/03/18 08:25 12:10 13:06 WBC RBC Hgb Hct MCV MCH MCHC RDW Plt Count MPV Prelim Diff (Auto) Neut % (Auto) Lymph % (Auto) [place] % (Auto) Eos % (Auto) Baso % (Auto) Neut # (Auto) Lymph # (Auto) [place] # (Auto) Eos # (Auto) Baso # (Auto) WBC Differential Diff Scan Seg Neuts % (Manual) Band Neuts % (Manual) Lymphocytes % (Manual) Monocytes % (Manual) Metamyelocytes % (Man) Abs Neuts (Manual) Differential Comment Platelet Estimate Platelet Morphology Puncture Site Patient Temperature O2 Saturation ABG pH ABG pCO2 ABG pO2 ABG HCO3 ABG O2 Content ABG Base Excess ABG Methemoglobin [place] Test Hemoglobin Carboxyhemoglobin O2 Delivery Device Vent Setting Inspired O2 Critical Value Sodium Potassium Chloride Carbon Dioxide Anion Gap BUN Creatinine Estimated GFR POC Glucose 201 H 204 H Random Glucose Calcium Phosphorus Magnesium Total Bilirubin AST ALT Alkaline Phosphatase Total Protein Albumin Urine Color Yellow Urine Clarity Cloudy H Urine pH 5.0 Ur Specific [place] 1.021 Urine Protein 100 H Urine Glucose (UA) Negative Urine Ketones Trace Urine Occult Blood Small H Urine Nitrate Negative Urine Bilirubin Negative Urine Urobilinogen Less than 2 Ur Leukocyte Esterase Negative Urine RBC 1 Urine WBC 2 Hyaline Casts 5 Granular Casts 1 Urine Mucus Few H Micro UA Comment Culture not ind Urine Culture Comments Culture not ind 07/03/18 07/03/18 07/04/18 17:57 20:43 04:30 WBC 7.6 RBC 3.94 L Hgb 12.1 L Hct 36.8 L MCV 93.5 MCH 30.8 MCHC 32.9 RDW 16.3 Plt Count 52 L MPV 12.1 H Prelim Diff (Auto) Slide review pending Neut % (Auto) 79.7 H Lymph % (Auto) 13.4 [place] % (Auto) 6.6 Eos % (Auto) 0.1 Baso % (Auto) 0.2 Neut # (Auto) 6.1 Lymph # (Auto) 1.0 [place] # (Auto) 0.5 Eos # (Auto) 0.0 Baso # (Auto) 0.0 WBC Differential . Diff Scan Auto diff confirmed Seg Neuts % (Manual) Band Neuts % (Manual) Lymphocytes % (Manual) Monocytes % (Manual) Metamyelocytes % (Man) Abs Neuts (Manual) Differential Comment . Platelet Estimate Low L Platelet Morphology Enlarged H Puncture Site Patient Temperature O2 Saturation ABG pH ABG pCO2 ABG pO2 ABG HCO3 ABG O2 Content ABG Base Excess ABG Methemoglobin [place] Test Hemoglobin Carboxyhemoglobin O2 Delivery Device Vent Setting Inspired O2 Critical Value Sodium Potassium Chloride Carbon Dioxide Anion Gap BUN Creatinine Estimated GFR POC Glucose 85 121 H Random Glucose Calcium Phosphorus Magnesium Total Bilirubin AST ALT Alkaline Phosphatase Total Protein Albumin Urine Color Urine Clarity Urine pH Ur Specific [place] Urine Protein Urine Glucose (UA) Urine Ketones Urine Occult Blood Urine Nitrate Urine Bilirubin Urine Urobilinogen Ur Leukocyte Esterase Urine RBC Urine WBC Hyaline Casts Granular Casts Urine Mucus Micro UA Comment Urine Culture Comments 07/04/18 07/04/18 07/04/18 04:30 09:24 10:09 WBC RBC Hgb Hct MCV MCH MCHC RDW Plt Count MPV Prelim Diff (Auto) Neut % (Auto) Lymph % (Auto) [place] % (Auto) Eos % (Auto) Baso % (Auto) Neut # (Auto) Lymph # (Auto) [place] # (Auto) Eos # (Auto) Baso # (Auto) WBC Differential Diff Scan Seg Neuts % (Manual) Band Neuts % (Manual) Lymphocytes % (Manual) Monocytes % (Manual) Metamyelocytes % (Man) Abs Neuts (Manual) Differential Comment Platelet Estimate Platelet Morphology Puncture Site Right radial Patient Temperature 98.6 O2 Saturation 96 ABG pH 7.47 H ABG pCO2 38 ABG pO2 112 ABG HCO3 27 H ABG O2 Content 16.3 ABG Base Excess 3.3 H ABG Methemoglobin 1.5 Carlos Test Present Hemoglobin 12.0 Carboxyhemoglobin 0.7 O2 Delivery Device Ventilator Vent Setting Cpap: 8/+5/35% Inspired O2 35 Critical Value No Sodium 157 H* Potassium 3.5 Chloride 116 H Carbon Dioxide 27.2 Anion Gap 14 BUN 89 H Creatinine 1.76 H Estimated GFR 38 L POC Glucose 308 H Random Glucose 222 H Calcium 8.6 Phosphorus Magnesium Total Bilirubin 0.5 AST 175 H ALT 200 H Alkaline Phosphatase 101 Total Protein 6.6 Albumin 2.3 L Urine Color Urine Clarity Urine pH Ur Specific [place] Urine Protein Urine Glucose (UA) Urine Ketones Urine Occult Blood Urine Nitrate Urine Bilirubin Urine Urobilinogen Ur Leukocyte Esterase Urine RBC Urine WBC Hyaline Casts Granular Casts Urine Mucus Micro UA Comment Urine Culture Comments 07/04/18 07/04/18 07/04/18 11:48 16:19 20:07 WBC RBC Hgb Hct MCV MCH MCHC RDW Plt Count MPV Prelim Diff (Auto) Neut % (Auto) Lymph % (Auto) [place] % (Auto) Eos % (Auto) Baso % (Auto) Neut # (Auto) Lymph # (Auto) [place] # (Auto) Eos # (Auto) Baso # (Auto) WBC Differential Diff Scan Seg Neuts % (Manual) Band Neuts % (Manual) Lymphocytes % (Manual) Monocytes % (Manual) Metamyelocytes % (Man) Abs Neuts (Manual) Differential Comment Platelet Estimate Platelet Morphology Puncture Site Patient Temperature O2 Saturation ABG pH ABG pCO2 ABG pO2 ABG HCO3 ABG O2 Content ABG Base Excess ABG Methemoglobin [place] Test Hemoglobin Carboxyhemoglobin O2 Delivery Device Vent Setting Inspired O2 Critical Value Sodium Potassium Chloride Carbon Dioxide Anion Gap BUN Creatinine Estimated GFR POC Glucose 320 H 191 H 103 Random Glucose Calcium Phosphorus Magnesium Total Bilirubin AST ALT Alkaline Phosphatase Total Protein Albumin Urine Color Urine Clarity Urine pH Ur Specific [place] Urine Protein Urine Glucose (UA) Urine Ketones Urine Occult Blood Urine Nitrate Urine Bilirubin Urine Urobilinogen Ur Leukocyte Esterase Urine RBC Urine WBC Hyaline Casts Granular Casts Urine Mucus Micro UA Comment Urine Culture Comments 07/05/18 07/05/18 07/05/18 00:04 03:53 04:15 WBC 7.0 RBC 3.56 L Hgb 11.1 L Hct 33.9 L MCV 95.3 MCH 31.1 MCHC 32.6 RDW 16.3 Plt Count 55 L MPV 12.2 H Prelim Diff (Auto) Slide review pending Neut % (Auto) 74.3 H Lymph % (Auto) 19.0 [place] % (Auto) 5.9 Eos % (Auto) 0.4 Baso % (Auto) 0.4 Neut # (Auto) 5.2 Lymph # (Auto) 1.3 [place] # (Auto) 0.4 Eos # (Auto) 0.0 Baso # (Auto) 0.0 WBC Differential . Diff Scan Auto diff confirmed Seg Neuts % (Manual) Band Neuts % (Manual) Lymphocytes % (Manual) Monocytes % (Manual) Metamyelocytes % (Man) Abs Neuts (Manual) Differential Comment . Platelet Estimate Low L Platelet Morphology Enlarged H Puncture Site Patient Temperature O2 Saturation ABG pH ABG pCO2 ABG pO2 ABG HCO3 ABG O2 Content ABG Base Excess ABG Methemoglobin [place] Test Hemoglobin Carboxyhemoglobin O2 Delivery Device Vent Setting Inspired O2 Critical Value Sodium Potassium Chloride Carbon Dioxide Anion Gap BUN Creatinine Estimated GFR POC Glucose 88 119 H Random Glucose Calcium Phosphorus Magnesium Total Bilirubin AST ALT Alkaline Phosphatase Total Protein Albumin Urine Color Urine Clarity Urine pH Ur Specific [place] Urine Protein Urine Glucose (UA) Urine Ketones Urine Occult Blood Urine Nitrate Urine Bilirubin Urine Urobilinogen Ur Leukocyte Esterase Urine RBC Urine WBC Hyaline Casts Granular Casts Urine Mucus Micro UA Comment Urine Culture Comments 07/05/18 07/05/18 07/05/18 04:15 07:56 12:12 WBC RBC Hgb Hct MCV MCH MCHC RDW Plt Count MPV Prelim Diff (Auto) Neut % (Auto) Lymph % (Auto) [place] % (Auto) Eos % (Auto) Baso % (Auto) Neut # (Auto) Lymph # (Auto) [place] # (Auto) Eos # (Auto) Baso # (Auto) WBC Differential Diff Scan Seg Neuts % (Manual) Band Neuts % (Manual) Lymphocytes % (Manual) Monocytes % (Manual) Metamyelocytes % (Man) Abs Neuts (Manual) Differential Comment Platelet Estimate Platelet Morphology Puncture Site Patient Temperature O2 Saturation ABG pH ABG pCO2 ABG pO2 ABG HCO3 ABG O2 Content ABG Base Excess ABG Methemoglobin [place] Test Hemoglobin Carboxyhemoglobin O2 Delivery Device Vent Setting Inspired O2 Critical Value Sodium 152 H Potassium 3.6 Chloride 114 H Carbon Dioxide 28.1 Anion Gap 10 BUN 82 H Creatinine 1.69 H Estimated GFR 40 L POC Glucose 171 H 183 H Random Glucose 118 H D Calcium 8.2 L Phosphorus Magnesium Total Bilirubin 0.7 AST 105 H ALT 149 H Alkaline Phosphatase 80 Total Protein 6.5 Albumin 2.2 L Urine Color Urine Clarity Urine pH Ur Specific [place] Urine Protein Urine Glucose (UA) Urine Ketones Urine Occult Blood Urine Nitrate Urine Bilirubin Urine Urobilinogen Ur Leukocyte Esterase Urine RBC Urine WBC Hyaline Casts Granular Casts Urine Mucus Micro UA Comment Urine Culture Comments Result Diagrams: 07/05/18 04:15 07/05/18 04:15 Microbiology: Microbiology 07/03/18 07:44 Aerobic Blood Culture - Preliminary Blood - Peripheral No growth in 2 days Anaerobic Blood Culture - Preliminary No growth in 2 days 07/03/18 07:49 Aerobic Blood Culture - Preliminary Blood - Peripheral No growth in 2 days Anaerobic Blood Culture - Preliminary No growth in 2 days 07/03/18 12:10 Gram Stain - Final Sputum - Endotracheal Sputum Culture - Preliminary Staphylococcus aureus gram negative rods 06/28/18 10:09 Aerobic Blood Culture - Final Blood - Peripheral No growth in 5 days Anaerobic Blood Culture - Final No growth in 5 days 06/28/18 10:03 Aerobic Blood Culture - Final Blood - Peripheral No growth in 5 days Anaerobic Blood Culture - Final No growth in 5 days Imaging: ITS Impressions Abdomen/Bladder Ultrasound 06/21/18 00:00 CONCLUSION: 1. Increased echogenicity of both kidneys typical of chronic parenchymal disease. 2. No evidence of acute obstructive uropathy. 3. Bilateral benign appearing renal cysts. Abdomen/Pelvis CT 07/04/18 00:00 CONCLUSION: The bulging in the right lower quadrant is related to distention of the cecum. Head CT 07/04/18 00:00 CONCLUSION: 1. No acute intracranial abnormality is identified. Stable chronic findings include generalized atrophy and chronic periventricular white matter change. 2. Increased fluid in the right mastoid air cells and mild but new mucoperiosteal thickening in the ethmoid and sphenoid sinus. . Abdomen X-Ray 07/05/18 00:00 CONCLUSION: There continues to be focal cecal distention with some stool and air measuring approximately 12.1 cm. Chest X-Ray 07/05/18 00:00 CONCLUSION: Mild bibasal atelectasis. No significant changes. Procedures: 06/23 reintubated 06/26 heart cath Assessment and Plan - Disease Oriented Problem List (1) Respiratory failure (2) Non-ST elevated myocardial infarction (non-STEMI) (3) Cardiomyopathy (4) PVD (peripheral vascular disease) (5) Tobacco abuse - Symptom Scale (1) Dyspnea 0-10 Scale: Unable to quantify (2) Pain 0-10 Scale: Unable to quantify (3) Agitation 0-10 Scale: Unable to quantify Pertinent Non-Medical Issues: Psychosocial: Pt originally from [place]. with 4 kids. 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 Spiritual: latter day. decline scale model maker visit. Legal: Per [place] statute is proxy decision maker. Ethical issues impacting care: none Important Contacts: Kristine Avila, - [phone] Prognosis: This is a 72-year-old male with history CHF, COPD, tobacco abuse, diabetes who presented 06/20 [place] He has a defibrillator implanted. His baseline ejection fraction is 25% and he is now at less than 20%. Patient reintubated 06/23. Had cardiac cath 06/26 with finding 3 vessel CAD, non ischemic dilated cardiomyopathy. Unclear if he is candidate for heart transplant d/t significant COPD. He is at high risk for continued complications and decline. Code Status: Full Code Plan: - LEGAL DECISON MAKER -patient is incapacitated to make medical decisions. Per [place] statutes his proxy decision maker - CODE STATUS-full code - GOALS - Goals aggressive. wants to pursue trach/PEG, says all their children are "100% on board." She understands that even with tracheostomy, pt still requires ventilator. She feels if he has trach he may be less agitated. - SYMPTOMS - * pain - multifactorial- prolonged bedbound status, mult tubes and lines, now cecal ileus. chest pain prior to admission. his RUQ is distended and tender on exam. no pain meds ordered other than ASA. at this time defer pain mgmt to [facility] * constipation - last BM 07/03, now with ileus. RUQ distended and tender on exam. has amanda lactulose, senna. pending rectal tube placement per GI and would need decompressive colonoscopy if no improvement or if has worsening. resistant to colonoscopy. if he continues to worsen there is risk of perforation bowel and need for surgery. * dyspnea -reintubated 06/23. Recent N STEMI. EF < 20% . s/p cardiac cath 06/26 findings 3 vessel CAD, nonischemic dilated cardiomyopathy. pulmonology consulted for significant COPD. vent weaning difficult 2/2 agitation. CV surgery consulted, not candidate at this time. steroids, scheduled DuoNeb's, ongoing CPAP trials * agitation - multlifactorial. mildly agitated today, moving head, pulling at restraints, biting ET tube. does not tolerate routine care interventions. now missing teeth & partial, tube repositioned so that he couldn't bited it. 18 ml/ hr precedex, 50mg seroquel BID- this is held d/t low BP, baclofen. sedation per [facility] possible trach soon - d/w RN - d/w GI - Palliative care will continue to follow during hospital course as condition evolves, to assist patient/decision-maker with understanding of medical conditions, weighing benefits/burdens of treatment options, for clarification of goals of treatment. Additionally will assist with any symptoms of palliative concern Attestation Attestation: To help prompt me to consider important information that might be impacting today's encounter and assessment, information from prior notes written by myself or my colleagues may have been "brought forward" into today's note. My signature on this note, however, is an attestation that I personally performed the exam, history, and/or decision-making noted today, and, unless otherwise indicated, the interactions with patient, family, and staff as well as the review of records all occurred today. I also attest that the listed assessment and stated plan reflect my best clinical judgment today based on the combination of historical information, prior notes, and today's exam/ interactions. When time spent is documented, it refers only to time spent today by the signer, or if indicated, combined time spent today by collaborating physician/nurse practitioner.
--- NOTE | 2018-07-05 20:46 | MB ---
cc: Maria Del Rosario Bustillos MD DATE: 07/05/2018 REASON FOR REFERRAL: Distention of the colon, constipation. Thank you for the consultation. HISTORY OF PRESENT ILLNESS: A 72-year-old gentleman who is visiting here from [place] on vacation. Apparently, the patient had shortness of breath and was brought to the hospital by the family where he ended up intubated because of hypoxia. Patient was extubated, but then he was intubated again. Patient was doing okay GI-purdy, then he started having constipation. Last bowel movement was 2 days ago and the KUB shows some distention of the cecum up to 12 cm. The patient is intubated, awake, unable to give history. His is next to him and the history was obtained from her. PAST SURGICAL HISTORY: Significant for pacemaker with defibrillator. ALLERGY: NEURONTIN, HYDROMORPHONE. MEDICATIONS: Reviewed in the chart. PAST MEDICAL HISTORY: Significant for: 1. Bilateral carotid stenosis. 2. Dilated cardiomyopathy with congestive heart failure. 3. Peripheral arterial disease. 4. Left bundle branch block. 5. The patient had AL upon admission with atrial fibrillation in the past. 6. Diabetes type 2. 7. Hyperlipidemia. 8. Glaucoma. 9. Thrombocytopenia. 10. Acute kidney disease. FAMILY HISTORY: Noncontributory. SOCIAL HISTORY: The patient smokes and drinks a few beers a week. REVIEW OF SYSTEMS: Unobtainable. The patient is awake, arousable, but not oriented and intubated. PHYSICAL EXAMINATION: GENERAL: The patient intubated, awake, agitated. VITAL SIGNS: Stable. No fever. HEENT: Pupils round, reactive to light. NECK: Supple. CHEST: Coarse breathing sounds bilaterally with intubation. CARDIAC: Regular rate and rhythm at this time. ABDOMEN: Soft, may be mildly distended. Positive bowel sounds. No hepatosplenomegaly that I could appreciate. EXTREMITIES: Muscle wasting. No edema. PSYCHIATRIC: No focal deficits. SKIN: Clear. LABORATORY DATA: White count 7.0, hemoglobin 11.1, platelets 55. INR 1.2. Elevated liver function test. Total bilirubin 0.7, AST 105, ALT 149, albumin 2.2. IMAGING: The patient had abdominal CT scan yesterday which shows distention of the cecum about 10 cm or a little bit more. He had a KUB today which showed the same. ASSESSMENT AND PLAN: A 72-year-old male with respiratory failure, intubated. The patient had no bowel movement for 2 days. He had dilation of the cecum on CT scan and KUB. The abdomen is soft. The patient has good bowel movements. I had a discussion with his . She does not really want him to have a colonoscopy, which I think may be not needed at this time. We will try to put a rectal tube and put it to intermittent wall suction and see if that would help the situation. If that does not work, then the patient will need to have decompression at a later time. KUB can be done tomorrow. MD YANCY Vergara/guilherme/joselin , 06:53 PM , 07:06 PM
[2018-07-06] MEDS: Baclofen 10 MG Tablet PO SCH ×3 (05:49→22:34)
[2018-07-06] MEDS: Insulin NovoLOG Aspart Correctional Sugar Inj SQ SCH ×6 (05:49→23:39)
[2018-07-06 07:41] LABS: Alanine Aminotransferase 120 U/L (12-78); Albumin 2.1 g/dL (3.4-5.0); Alkaline Phosphatase 74 U/L (45-117); Anion Gap 11 meq/L (5-15); Aspartate Aminotransferase 81 U/L (15-37); Blood Urea Nitrogen 58 mg/dL (7-18); Calcium 7.8 mg/dL (8.5-10.1); Carbon Dioxide 25.9 meq/L (21.0-32.0); Chloride 108 meq/L (98-107); Glomerular Filtration Rate 48 mL/min (>89); Glucose,Random 140 mg/dL (74-106); Potassium 3.1 meq/L (3.5-5.1); Sodium 145 meq/L (136-145)
[2018-07-06 08:01] LABS: Baso % (Auto) 0.2 % (0.0-2.0); Eos % (Auto) 0.2 % (0.0-4.0); Hematocrit 31.9 % (39.0-51.0); Hemoglobin 10.5 gm/dL (13.0-17.0); Lymph # (Auto) 0.9 th/mm3 (1.0-4.8); Lymph % (Auto) 13.7 % (9.0-44.0); Mean Corpuscular HGB Conc 32.9 % (32.0-36.0); Mean Corpuscular Volume 94.4 fL (80.0-100.0); Mono # (Auto) 0.3 th/mm3 (0.0-0.9); Mono % (Auto) 4.8 % (0.0-8.0); Neut # (Auto) 5.1 th/mm3 (1.8-7.7); Neut % (Auto) 81.1 % (16.0-70.0); Platelet Count 48 th/mm3 (150-450); Red Blood Count 3.38 mil/mm3 (4.50-5.90); White Blood Count 6.3 th/mm3 (4.0-11.0)
--- NOTE | 2018-07-06 09:20 | P.PNCC ---
Subjective Subjective Remarks/Hospital Course: Elderly male with a medical history significant for viral cardiomyopathy who was traveling on vacation from [place] with his family in [place] and today developed chest pain with worsening shortness of breath for which EMS was called by family. Patient was extremely short of breath on the arrival and hypoxic and they proceeded with endotracheal intubation and patient was transferred to the ER. In the ER it was noted that his cuff was leaking hence ET tube was exchanged by ER physician and patient was placed on mechanical ventilation. 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 He reportedly does not take any diuretic. Chest x-ray done in the ER revealed pulmonary edema. EKG revealed atrial fibrillation. Patient was accepted for admission by critical care medicine service. When I evaluated him in the ER he was sedated with propofol, orally intubated on mechanical ventilation. History was obtained by reviewing records, discussion with family as well as ER physician. Subjective 06/21: Afebrile. Hemodynamically stable. Troponin bumped 14. Started on heparin drip. Sedated with propofol and fentanyl drips. Arousable the ventilator and is very agitated will attempt to withdrawal tube. PEEP down to 5. 06/22: Sedated, orally intubated on mechanical ventilation. Gets agitated unenlightening sedation so Precedex added in addition to propofol and fentanyl. CPAP trials ongoing to decide extubation. Cardiac cath postponed by Dr. Noonan in view of questionable neurologic status. 06/23: Patient was extubated yesterday however was requiring significant amount of O2 post extubation with a facemask as well as nasal cannula. This morning around 4 AM due to increased work of breathing and hypoxia he was reintubated by Dr. Lino and placed back on mechanical ventilation. Currently he is sedated , orally intubated on mechanical ventilation. Postintubation chest x-ray shows ET tube in appropriate position and pulmonary edema pattern with perihilar infiltrates bilaterally. 06/24: Remains sedated, orally intubated on mechanical ventilation. 06/25: Remains sedated, orally intubated on mechanical ventilation. 06/26: Remains sedated, orally intubated on mechanical ventilation. Pacer backup rate increased to 60/min yesterday due to hypotension. Awaiting cardiac catheterization. 06/27: Sedated, orally intubated on mechanical ventilation. Underwent cardiac catheterization which revealed nonobstructive CAD. Patient has nonischemic dilated cardiomyopathy per discussion with Dr. Noonan. Initiated dobutamine 2.5 mics per KG per minute on 06/26. Filling pressures not elevated per Dr. Noonan on cardiac cath. 06/28: Sedated, arousable, orally intubated on mechanical ventilation. IV hydrocortisone switched to Solu-Medrol yesterday. Pulmonary consult with Dr. Villegas as patient appears to have significant COPD in addition to cardiomyopathy. Remains on dobutamine at 1.5 mics per KG per minute. Diuresing well. Does not appear to be fluid overloaded at this time. Daily CPAP trials ongoing. 06/29: Remains intubated sedated with Precedex and fentanyl. Remains on dobutamine. Patient is able to track and follow some commands. CXR appears clear today 06/30 Remains intubated and on low dose dobutamine 1.25 mcg/kg/min. Will place on sedation vacation and CPAP trial and plan for trial of extubation as tolerated. Has continued diuresis and CXR is now clear of edema. 07/01: 07/01 Tolerates CPAP. Mental status currently seems limiting factor to extubation but there is some improvement compared with yesterday. Now on seroquel, off fentanyl drip ( states opioids have historically caused delirium for him). On precedex as needed, weaning down. Yesterday he was staring ahead, roving head movements, wild-eyed expressions as if hallucinating , very weak in all extremities. Today he does NOT follow commands but by this evening he does track, moves extremities vigorously and purposefully, strong cough, lifts head up off bed. Appears he will soon be appropriate for trial of extubation but will wait in effort to optimize to full ability, as failure of extubation trial will necessitate trach (currently day #9 following reintubation) is aware. 07/02: No events over the night. The patient tolerated CPAP this a.m. but he became increasingly agitated and tachypneic, currently now back on full support. Sedation is achieved with dexmedetomidine at 1. T-max of 99.1. I/O 4575/3200. 07/03: Episode of agitation over the night requiring increasing Precedex and dose of Ativan. This a.m. patient on dexmedetomidine at 1.4 sedated arousable, not following commands. T-max of 100.4. Urine output of 1400 mL's over the last 24 hours. 07/04: No events over the night. Patient tolerated CPAP yesterday for approximately 6 hours however mental status remains poor. T-max of 100.4 yesterday morning, afebrile since then. Diuresed great over the last 24 hours, 4625 mL's since yesterday, almost 2.5 L negative fluid balance. CT abdomen and pelvis not yet done. 07/05: No events over the night. CT abdomen and pelvis report reviewed, cecum dilation up to 10 cm. Tube feeds were stopped and NG tube was placed on low intermittent wall suction. Patient remains altered with episodes of severe agitation. Currently on Precedex at 0.8. T-max of 100.5 yesterday at noon, afebrile since then. Urine output remains adequate. I/O 3035/1850. Subjective: 07/06: Patient did well over the night. T-max of 99.8. Hypotension resolved yesterday after fluid bolus administration. I/O 2170/2475. I had long discussion yesterday with the and the family is leaning towards trach. This morning patient on Precedex at 1.5, fully awake, intermittently following some commands. Objective Vital Signs / I&O: Vital Signs 07/05/18 09:44 07/05/18 10:00 07/05/18 12:00 Temperature 99.8 F H Pulse Rate 89 96 H 91 H Respiratory Rate 17 16 Blood Pressure 85/53 L Pulse Oximetry 99 98 07/05/18 14:00 07/05/18 15:59 07/05/18 16:00 Temperature 98.6 F Pulse Rate 82 84 Respiratory Rate 16 16 Blood Pressure 108/57 L Pulse Oximetry 98 99 07/05/18 18:00 07/05/18 20:00 07/05/18 20:55 Temperature 97.2 F L Pulse Rate 79 73 82 Respiratory Rate 16 16 Blood Pressure 118/66 Pulse Oximetry 100 100 07/05/18 22:00 07/06/18 00:00 07/06/18 01:55 Temperature 96.5 F L Pulse Rate 72 109 H Respiratory Rate 16 16 Blood Pressure 103/59 L Pulse Oximetry 100 99 07/06/18 02:00 07/06/18 04:00 07/06/18 04:44 Temperature 97.5 F L Pulse Rate 95 H 94 H 90 Respiratory Rate 16 16 Blood Pressure 108/59 L Pulse Oximetry 96 97 07/06/18 06:00 07/06/18 07:47 Temperature Pulse Rate 95 H Respiratory Rate 22 Blood Pressure Pulse Oximetry 94 L Intake & Output 07/05/18 07/06/18 07/06/18 18:59 06:59 18:59 Intake Total 1770 / 1770 400 / 400 Output Total 825 / 825 1650 / 1650 Balance 945 / 945 -1250 / -1250 Weight 72.5 kg Intake: IV 1250 / 1250 Precedex Inj 1,000 MCG In NS 250 / 250 Inj 240 ML @ 0.2 MCG/KG/HR 3.6 mls/hr IV.CONT TITRATE PRN Rx#: [id number] LR 1000 mL Inj 1,000 ML @ Wide 1000 / 1000 Open IV.SIG BOLUS ONE Rx#: [id number] Oral 0 / 0 0 / 0 Tube Feeding 0 / 0 0 / 0 Tube Irrigant 120 / 120 0 / 0 Water Bolus Amount 400 / 400 400 / 400 Output: Urine 575 / 575 1550 / 1550 Stool 100 / 100 Gastric Drainage 250 / 250 0 / 0 Left Nare Nasogastric Tube 250 / 250 0 / 0 Other: Date of Last Bowel Movement 07/03/18 07/06/18 # Bowel Movements 0 0 Result Diagrams: 07/06/18 03:57 07/06/18 03:57 Other Results: Sputum culture 07/03 staph aureus and gram-negative bacilli Imaging: Abdomen/Bladder Ultrasound 06/21/18 00:00 CONCLUSION: 1. Increased echogenicity of both kidneys typical of chronic parenchymal disease. 2. No evidence of acute obstructive uropathy. 3. Bilateral benign appearing renal cysts. Abdomen/Pelvis CT 07/04/18 00:00 CONCLUSION: The bulging in the right lower quadrant is related to distention of the cecum. Head CT 07/04/18 00:00 CONCLUSION: 1. No acute intracranial abnormality is identified. Stable chronic findings include generalized atrophy and chronic periventricular white matter change. 2. Increased fluid in the right mastoid air cells and mild but new mucoperiosteal thickening in the ethmoid and sphenoid sinus. . Abdomen X-Ray 07/05/18 00:00 CONCLUSION: There continues to be focal cecal distention with some stool and air measuring approximately 12.1 cm. Chest X-Ray 07/05/18 00:00 CONCLUSION: Mild bibasal atelectasis. No significant changes. Objective Remarks: GENERAL: Elderly gentleman, intubated, awake, ill-appearing. HEENT: Pupils equal, and reactive. Sclerae anicteric. Neck supple without rigidity. Orally intubated. No JVD. CARDIOVASCULAR: Regular heart sounds, no murmurs. Permanent pacemaker over the left chest. RESPIRATORY: Clear breath sounds bilateral. No wheezes. Good air entry. GASTROINTESTINAL: Abdomen soft, appears non-tender, + distention over the right lower quadrant -improved. Bowel sounds are still decreased. MUSCULOSKELETAL: Warm, extremities with trace bilateral lower extremity edema. No clubbing. NEUROLOGICAL: Intubated, awake, nods no to pain, shows thumbs up over the left hand and attempts to move both lower extremities when asked. Assessment and Plan - Assessment and Plan Plan: Assessment: Acute respiratory failure on mechanical ventilation -unchanged, on 0.35 FiO2, not tolerating CPAP Acute decompensated CHF - systolic and dialstolic EF 20% -appears euvolemic Staph aureus pneumonia -afebrile over the last 24 hours Dilated cardiomyopathy Atrial fibrillation -rate controlled Non-STEMI FIDE -creatinine slowly trending down, urine output remains adequate Hypernatremia -resolved Thrombocytopenia -unchanged, slightly worsening Adynamic ileus - ?[place]gylvie -distention is slightly improved DM -controlled B/L carotid Stenosis 40-59% Erectile Dysfunction PAD LBBB- chronic Hypertension COPD History of pacemaker/defibrillator placement Hyperlipidemia Glaucoma Normocytic anemia Plan: Neuro: -Seroquel decreased to 25 bid on 07/04 -Precedex drip, maintain RASS -1 to 0 -Follow neuro status, patient definitely the most awake I have seen him so far -Baclofen decreased to 10 mg 3 times daily/home medications on 07/04 -Gabapentin at 300 mg every 8 hourly has been on hold. Continue brimonidine 0.15% 2 times daily Cardiovascular: -Non-ST elevation [place]. cardiology Dr. Noonan following for decompensated CHF, history of cardiomyopathy and positive troponin. -A. fib appears rate controlled. Continue aspirin 162 mg daily. Low-dose beta- ana metoprolol tartrate 12.5 mg twice daily. -No ENA inhibitor secondary to acute kidney injury. Off heparin GTT. Holding cilostazol 50 mg twice daily. Simvastatin 20 mg daily/40 mg pravastatin substituted. -Cardiac cath per Dr. Noonan. Angiographically mild to moderate 3-vessel coronary artery disease. EF 20%. -Gentle diuresis with Lasix daily Pulmonary: -On mechanical ventilation, PRVC. No auto PEEP, patient is synchronized with the ventilator. PIP is 19. -Attempt CPAP trial today -Albuterol/ipratropium every 4 hours with albuterol aerosols every 2 hours as needed dyspnea. -Vent bundle -Continue Solu-Medrol 40 mg but decrease frequency to daily -stop date -Pulm consult Dr. Shayy Villegas following for COPD -We will consult surgery for tracheostomy GI/liver: -Tube feeds Glucerna 1.5 and 55 mL/h -stopped due to ileus -NG tube placed to low intermittent wall suction -Continue n.p.o. -Daily KUB -GI consult appreciated FEN/Renal/: -Continue D5W at 60 mL's per hour -Continue free water to 200 every 6 hours -Strict intake output, monitor and replete electrolytes, follow BUN/creatinine. ID: -Completed 14 days of cefepime, stopped on 07/04 -Sputum cultures growing MSSA. Stopped Zyvox on 06/26 -Repeat sputum culture sent on 07/03 growing staph aureus and gram-negative bacilli. In the absence of fever and leukocytosis we will hold antibiotics for now. If any signs of the compensation of recurrent fever we will start broad- spectrum antibiotics Heme: -Thrombocytopenia Dr. Campa following. HIT screen negative. -Heparin gtt. discontinued following cardiac cath. Continue Lovenox 40 mg subcutaneous daily DVT prophylaxis. -Worsening, no evidence of bleed Endocrine: -Holding metformin thousand milligrams twice daily, sitagliptin 100 mg daily sliding scale insulin with aspart insulin high protocol for glycemic control. -Started stress dose steroids with hydrocortisone 50 mill grams IV every 6 hourly on 06/23 due to borderline blood pressures and recent prednisone use -Switched to Solu-Medrol 80 mg IV every 12 hourly on 06/27. Now on tapering dose of Solu-Medrol 40 mg IV every 12 hours. -Detemir 10 units subcu every 12 hours. Regular insulin, high dose every 4 hours Prophylaxis: PPI/SCDs. Continue Lovenox 40 mg subcutaneous daily for DVT prophylaxis. I discussed patient's condition in detail with multiple times yesterday. Level 2 follow-up.
[2018-07-06] MEDS: Hypromellose 0.3% Opth Gel 10 GM Bottle EACH EYE SCH ×2 (09:26→20:29)
[2018-07-06] MEDS: MethylPREDNISolone Sod Succinate Inj 40 MG/ML Vial IV.PUSH SCH (09:27)
[2018-07-06] MEDS: Metoprolol Tartrate 25 MG Tablet PO SCH ×2 (09:28→20:29)
[2018-07-06] MEDS: Senna/Docusate Sodium 8.6/50 MG Tablet PO SCH ×2 (09:29→20:30)
[2018-07-06] MEDS: Enoxaparin Inj 40 MG/0.4 ML Syringe SQ SCH ×2 (09:29→16:13)
[2018-07-06] MEDS: Brimonidine 0.15% Opth Drops 5 ML Bottle EACH EYE SCH ×2 (09:31→20:28)
[2018-07-06] MEDS: Insulin Detemir Inj 1,000 UNIT/10 ML Vial SQ SCH ×2 (09:47→20:29)
--- NOTE | 2018-07-06 09:58 | XR ---
EXAM DATE: 07/06/2018 9:42 AM EDT AGE/SEX: 72 years / Male INDICATIONS: Constipation. CLINICAL DATA: This is the patient's initial encounter. Patient reports that signs and symptoms have been present for 1 day and indicates a pain score of Nonresponsive. MEDICAL/SURGICAL HISTORY: Non-responsive. Non-responsive. COMPARISON: [facility] [place] ABDOMEN & PELVIS W/O CONTRAST, 07/04/2018. . FINDINGS: Persistent stool within the ascending colon with distention. The transverse and descending colon mathew ins decompressed. There is no free air. CONCLUSION: Persistent stool in ascending colon with some distention. Electronically signed by: Dominik Montanez MD 07/06/2018 9:56 AM EDT
--- NOTE | 2018-07-06 10:24 | P.PNCA ---
Subjective Interval history: intubated, sedated Physical Exam Vital signs: Vital Signs 07/05/18 12:00 07/05/18 14:00 07/05/18 15:59 Temperature 99.8 F H Pulse Rate 91 H 82 Respiratory Rate 16 16 Blood Pressure 85/53 L Pulse Oximetry 98 98 07/05/18 16:00 07/05/18 18:00 07/05/18 20:00 Temperature 98.6 F 97.2 F L Pulse Rate 84 79 73 Respiratory Rate 16 16 Blood Pressure 108/57 L 118/66 Pulse Oximetry 99 100 07/05/18 20:55 07/05/18 22:00 07/06/18 00:00 Temperature 96.5 F L Pulse Rate 82 72 109 H Respiratory Rate 16 16 Blood Pressure 103/59 L Pulse Oximetry 100 100 07/06/18 01:55 07/06/18 02:00 07/06/18 04:00 Temperature 97.5 F L Pulse Rate 95 H 94 H Respiratory Rate 16 16 Blood Pressure 108/59 L Pulse Oximetry 99 96 07/06/18 04:44 07/06/18 06:00 07/06/18 07:47 Temperature Pulse Rate 90 95 H Respiratory Rate 16 22 Blood Pressure Pulse Oximetry 97 94 L Intake & Output 07/05/18 07/06/18 07/06/18 18:59 06:59 18:59 Intake Total 1770 / 1770 400 / 400 Output Total 825 / 825 1650 / 1650 Balance 945 / 945 -1250 / -1250 Weight 72.5 kg Intake: IV 1250 / 1250 Precedex Inj 1,000 MCG In NS 250 / 250 Inj 240 ML @ 0.2 MCG/KG/HR 3.6 mls/hr IV.CONT TITRATE PRN Rx#: [id number] LR 1000 mL Inj 1,000 ML @ Wide 1000 / 1000 Open IV.SIG BOLUS ONE Rx#: [id number] Oral 0 / 0 0 / 0 Tube Feeding 0 / 0 0 / 0 Tube Irrigant 120 / 120 0 / 0 Water Bolus Amount 400 / 400 400 / 400 Output: Urine 575 / 575 1550 / 1550 Stool 100 / 100 Gastric Drainage 250 / 250 0 / 0 Left Nare Nasogastric Tube 250 / 250 0 / 0 Other: Date of Last Bowel Movement 07/03/18 07/06/18 # Bowel Movements 0 0 - Urinary Catheter Management Indwelling Urethral Catheter Cath placed during this visit: yes Reason for continuing: Other continuation reason Insertion date: 06/20/18 Insertion time: 21:24 Assessment and Plan - Assessment (1) Cardiomyopathy Code(s): I42.9 - Cardiomyopathy, unspecified Status: Acute (2) Cardiomyopathy Code(s): I42.9 - Cardiomyopathy, unspecified Status: Acute (3) PVD (peripheral vascular disease) Code(s): I73.9 - Peripheral vascular disease, unspecified Status: Acute (4) PVD (peripheral vascular disease) Code(s): I73.9 - Peripheral vascular disease, unspecified Status: Acute (5) Tobacco abuse Code(s): Z72.0 - Tobacco use Status: Acute (6) Respiratory failure Code(s): J96.90 - Respiratory failure, unspecified, unspecified whether with hypoxia or hypercapnia Status: Acute (7) Non-ST elevated myocardial infarction (non-STEMI) Code(s): I21.4 - Non-ST elevation (NSTEMI) myocardial infarction Status: Acute (8) Pulmonary edema cardiac cause Code(s): I50.1 - Left ventricular failure, unspecified Status: Acute - Plan 1.) NICM - end stage, euvolemic, refuses in state transfer, requesting transfer to [facility], d/w Dr Solis; beta ana and hellen held due to hypotension, diuresing to optimize potential extubation, he has hypernatremia 2.) CAD - nonobstructive, continue aspirin, pravachol 3.) Encephalopathy - moderate per EEG on sedation, neuro following 4.) d/w case with at the bedside 07/04/18 5.) Respiratory failure - he is euvolemic, appears to be due to pulmonary and/ or encephalopathic etilology, remains intubated, prolonged failure to wean from vent, his is considering trach placement 6.) indicates she wants peg and trach (6) Respiratory failure Qualifiers: Chronicity: acute Respiratory failure complication: hypoxia Qualified Code(s ): J96.01 - Acute respiratory failure with hypoxia
[2018-07-06] MEDS: Dexmedetomidine Inj 1,000 MCG in Sodium Chlor 0.9% Inj 240 ML IV.CONT PRN ×2 (11:08→20:30)
--- NOTE | 2018-07-06 11:26 | P.PNGI ---
Subjective Interval history: Patient's resting in the bed currently being managed in the intensive care setting with ventilator management Tachycardic rhythm atrial fibrillation with some paced rhythm intermingled NG tube to low intermittent suction KUB pending <JessicaTiffanie M - Last Filed: 07/06/18 11:34> Physical Exam Vital signs: Vital Signs 07/05/18 12:00 07/05/18 14:00 07/05/18 15:59 Temperature 99.8 F H Pulse Rate 91 H 82 Respiratory Rate 16 16 Blood Pressure 85/53 L Pulse Oximetry 98 98 07/05/18 16:00 07/05/18 18:00 07/05/18 20:00 Temperature 98.6 F 97.2 F L Pulse Rate 84 79 73 Respiratory Rate 16 16 Blood Pressure 108/57 L 118/66 Pulse Oximetry 99 100 07/05/18 20:55 07/05/18 22:00 07/06/18 00:00 Temperature 96.5 F L Pulse Rate 82 72 109 H Respiratory Rate 16 16 Blood Pressure 103/59 L Pulse Oximetry 100 100 07/06/18 01:55 07/06/18 02:00 07/06/18 04:00 Temperature 97.5 F L Pulse Rate 95 H 94 H Respiratory Rate 16 16 Blood Pressure 108/59 L Pulse Oximetry 99 96 07/06/18 04:44 07/06/18 06:00 07/06/18 07:47 Temperature Pulse Rate 90 95 H Respiratory Rate 16 22 Blood Pressure Pulse Oximetry 97 94 L Intake & Output 07/05/18 07/06/18 07/06/18 18:59 06:59 18:59 Intake Total 1770 / 1770 400 / 400 250 / 250 Output Total 825 / 825 1650 / 1650 Balance 945 / 945 -1250 / -1250 250 / 250 Weight 72.5 kg Intake: IV 1250 / 1250 250 / 250 Precedex Inj 1,000 MCG In NS 250 / 250 250 / 250 Inj 240 ML @ 0.2 MCG/KG/HR 3.6 mls/hr IV.CONT TITRATE PRN Rx#: [id number] LR 1000 mL Inj 1,000 ML @ Wide 1000 / 1000 Open IV.SIG BOLUS ONE Rx#: [id number] Oral 0 / 0 0 / 0 Tube Feeding 0 / 0 0 / 0 Tube Irrigant 120 / 120 0 / 0 Water Bolus Amount 400 / 400 400 / 400 Output: Urine 575 / 575 1550 / 1550 Stool 100 / 100 Gastric Drainage 250 / 250 0 / 0 Left Nare Nasogastric Tube 250 / 250 0 / 0 Other: Date of Last Bowel Movement 07/03/18 07/06/18 # Bowel Movements 0 0 - Constitutional mild distress, obese - Routine HEENT Exam Head: Present: normocephalic ENT: Present: mucous membranes dry (NG tube to low intermittent suction) - Routine Neck Exam Present: supple - Routine Respiratory Exam Present: accessory muscle use (Mild rhonchi and diminished breath sounds) - Routine Cardiovascular Exam Present: tachycardia - Routine Abdominal Exam Present: soft (Round, soft bowel sounds, no abdominal pain to light palpation), normoactive bowel sounds (Soft bowel sounds minimal in the lower quadrants) - Routine Skin Exam Present: intact, pallor - Routine Neurological Exam Present: alert (Fair historian, no family present) - Urinary Catheter Management Indwelling Urethral Catheter Cath placed during this visit: yes Reason for continuing: Other continuation reason Insertion date: 06/20/18 Insertion time: 21:24 <Tiffanie Lopez - Last Filed: 07/06/18 11:34> Vital signs: Vital Signs 07/05/18 15:59 07/05/18 16:00 07/05/18 18:00 Temperature 98.6 F Pulse Rate 84 79 Respiratory Rate 16 16 Blood Pressure 108/57 L Pulse Oximetry 98 99 07/05/18 20:00 07/05/18 20:55 07/05/18 22:00 Temperature 97.2 F L Pulse Rate 73 82 72 Respiratory Rate 16 16 Blood Pressure 118/66 Pulse Oximetry 100 100 07/06/18 00:00 07/06/18 01:55 07/06/18 02:00 Temperature 96.5 F L Pulse Rate 109 H 95 H Respiratory Rate 16 16 Blood Pressure 103/59 L Pulse Oximetry 100 99 07/06/18 04:00 07/06/18 04:44 07/06/18 06:00 Temperature 97.5 F L Pulse Rate 94 H 90 95 H Respiratory Rate 16 16 Blood Pressure 108/59 L Pulse Oximetry 96 97 07/06/18 07:47 07/06/18 12:11 07/06/18 12:13 Temperature Pulse Rate 83 Respiratory Rate 22 25 H 23 Blood Pressure Pulse Oximetry 94 L 100 Intake & Output 07/05/18 07/06/18 07/06/18 18:59 06:59 18:59 Intake Total 1770 / 1770 400 / 400 250 / 250 Output Total 825 / 825 1650 / 1650 Balance 945 / 945 -1250 / -1250 250 / 250 Weight 72.5 kg Intake: IV 1250 / 1250 250 / 250 Precedex Inj 1,000 MCG In NS 250 / 250 250 / 250 Inj 240 ML @ 0.2 MCG/KG/HR 3.6 mls/hr IV.CONT TITRATE PRN Rx#: [id number] LR 1000 mL Inj 1,000 ML @ Wide 1000 / 1000 Open IV.SIG BOLUS ONE Rx#: [id number] Oral 0 / 0 0 / 0 Tube Feeding 0 / 0 0 / 0 Tube Irrigant 120 / 120 0 / 0 Water Bolus Amount 400 / 400 400 / 400 Output: Urine 575 / 575 1550 / 1550 Stool 100 / 100 Gastric Drainage 250 / 250 0 / 0 Left Nare Nasogastric Tube 250 / 250 0 / 0 Other: Date of Last Bowel Movement 07/03/18 07/06/18 07/06/18 # Bowel Movements 0 0 - Urinary Catheter Management Indwelling Urethral Catheter Cath placed during this visit: no <Trevor Jones E - Last Filed: 07/06/18 14:16> Results - Labs CBC & Chem 7: 07/06/18 03:57 07/06/18 03:57 Laboratory Results - last 24 hr 07/05/18 07/05/18 07/05/18 12:12 17:52 19:28 WBC RBC Hgb Hct MCV MCH MCHC RDW Plt Count MPV Prelim Diff (Auto) Neut % (Auto) Lymph % (Auto) [place] % (Auto) Eos % (Auto) Baso % (Auto) Neut # (Auto) Lymph # (Auto) [place] # (Auto) Eos # (Auto) Baso # (Auto) WBC Differential Diff Scan Differential Comment Sodium Potassium Chloride Carbon Dioxide Anion Gap BUN Creatinine Estimated GFR POC Glucose 183 H 197 H 202 H Random Glucose Calcium Total Bilirubin AST ALT Alkaline Phosphatase Total Protein Albumin 07/05/18 07/06/18 07/06/18 23:46 03:57 03:57 WBC 6.3 RBC 3.38 L Hgb 10.5 L Hct 31.9 L MCV 94.4 MCH 31.0 MCHC 32.9 RDW 16.0 Plt Count 48 L MPV 13.0 H Prelim Diff (Auto) Slide review pending Neut % (Auto) 81.1 H Lymph % (Auto) 13.7 [place] % (Auto) 4.8 Eos % (Auto) 0.2 Baso % (Auto) 0.2 Neut # (Auto) 5.1 Lymph # (Auto) 0.9 L [place] # (Auto) 0.3 Eos # (Auto) 0.0 Baso # (Auto) 0.0 WBC Differential . Diff Scan Auto diff confirmed Differential Comment . Sodium 145 Potassium 3.1 L Chloride 108 H Carbon Dioxide 25.9 Anion Gap 11 BUN 58 H Creatinine 1.45 H Estimated GFR 48 L POC Glucose 165 H Random Glucose 140 H Calcium 7.8 L Total Bilirubin 0.6 AST 81 H ALT 120 H Alkaline Phosphatase 74 Total Protein 6.0 L Albumin 2.1 L 07/06/18 07/06/18 04:02 08:37 WBC RBC Hgb Hct MCV MCH MCHC RDW Plt Count MPV Prelim Diff (Auto) Neut % (Auto) Lymph % (Auto) [place] % (Auto) Eos % (Auto) Baso % (Auto) Neut # (Auto) Lymph # (Auto) [place] # (Auto) Eos # (Auto) Baso # (Auto) WBC Differential Diff Scan Differential Comment Sodium Potassium Chloride Carbon Dioxide Anion Gap BUN Creatinine Estimated GFR POC Glucose 157 H 254 H Random Glucose Calcium Total Bilirubin AST ALT Alkaline Phosphatase Total Protein Albumin Microbiology 07/03/18 07:44 Blood - Peripheral Aerobic Blood Culture - Preliminary No growth in 3 days 07/03/18 07:44 Blood - Peripheral Anaerobic Blood Culture - Preliminary No growth in 3 days 07/03/18 07:49 Blood - Peripheral Aerobic Blood Culture - Preliminary No growth in 3 days 07/03/18 07:49 Blood - Peripheral Anaerobic Blood Culture - Preliminary No growth in 3 days 07/03/18 12:10 Sputum - Endotracheal Gram Stain - Final 07/03/18 12:10 Sputum - Endotracheal Sputum Culture - Final Staphylococcus aureus Klebsiella pneumoniae - Imaging Impressions Abdomen X-Ray 07/06/18 00:00 CONCLUSION: Persistent stool in ascending colon with some distention. <Tiffanie Lopez - Last Filed: 07/06/18 11:34> - Labs CBC & Chem 7: 07/06/18 03:57 07/06/18 03:57 Laboratory Results - last 24 hr 07/05/18 07/05/18 07/05/18 17:52 19:28 23:46 WBC RBC Hgb Hct MCV MCH MCHC RDW Plt Count MPV Prelim Diff (Auto) Neut % (Auto) Lymph % (Auto) [place] % (Auto) Eos % (Auto) Baso % (Auto) Neut # (Auto) Lymph # (Auto) [place] # (Auto) Eos # (Auto) Baso # (Auto) WBC Differential Diff Scan Differential Comment Sodium Potassium Chloride Carbon Dioxide Anion Gap BUN Creatinine Estimated GFR POC Glucose 197 H 202 H 165 H Random Glucose Calcium Total Bilirubin AST ALT Alkaline Phosphatase Total Protein Albumin 07/06/18 07/06/18 07/06/18 03:57 03:57 04:02 WBC 6.3 RBC 3.38 L Hgb 10.5 L Hct 31.9 L MCV 94.4 MCH 31.0 MCHC 32.9 RDW 16.0 Plt Count 48 L MPV 13.0 H Prelim Diff (Auto) Slide review pending Neut % (Auto) 81.1 H Lymph % (Auto) 13.7 [place] % (Auto) 4.8 Eos % (Auto) 0.2 Baso % (Auto) 0.2 Neut # (Auto) 5.1 Lymph # (Auto) 0.9 L [place] # (Auto) 0.3 Eos # (Auto) 0.0 Baso # (Auto) 0.0 WBC Differential . Diff Scan Auto diff confirmed Differential Comment . Sodium 145 Potassium 3.1 L Chloride 108 H Carbon Dioxide 25.9 Anion Gap 11 BUN 58 H Creatinine 1.45 H Estimated GFR 48 L POC Glucose 157 H Random Glucose 140 H Calcium 7.8 L Total Bilirubin 0.6 AST 81 H ALT 120 H Alkaline Phosphatase 74 Total Protein 6.0 L Albumin 2.1 L 07/06/18 07/06/18 08:37 13:40 WBC RBC Hgb Hct MCV MCH MCHC RDW Plt Count MPV Prelim Diff (Auto) Neut % (Auto) Lymph % (Auto) [place] % (Auto) Eos % (Auto) Baso % (Auto) Neut # (Auto) Lymph # (Auto) [place] # (Auto) Eos # (Auto) Baso # (Auto) WBC Differential Diff Scan Differential Comment Sodium Potassium Chloride Carbon Dioxide Anion Gap BUN Creatinine Estimated GFR POC Glucose 254 H 235 H Random Glucose Calcium Total Bilirubin AST ALT Alkaline Phosphatase Total Protein Albumin Microbiology 07/03/18 07:44 Blood - Peripheral Aerobic Blood Culture - Preliminary No growth in 3 days 07/03/18 07:44 Blood - Peripheral Anaerobic Blood Culture - Preliminary No growth in 3 days 07/03/18 07:49 Blood - Peripheral Aerobic Blood Culture - Preliminary No growth in 3 days 07/03/18 07:49 Blood - Peripheral Anaerobic Blood Culture - Preliminary No growth in 3 days 07/03/18 12:10 Sputum - Endotracheal Gram Stain - Final 07/03/18 12:10 Sputum - Endotracheal Sputum Culture - Final Staphylococcus aureus Klebsiella pneumoniae - Imaging Impressions Abdomen X-Ray 07/06/18 00:00 CONCLUSION: Persistent stool in ascending colon with some distention. <Trevor Jones - Last Filed: 07/06/18 14:16> Assessment and Plan - Plan History Constipation 72-year-old male initially from the [facility] under the hospital with shortness of breath and was intubated due to hypoxemia. Patient was noted to have no bowel movement in 2 days and GI was consulted to assist with any symptoms and his constipation. KUB initially showed some distention in the cecum. Repeat KUB today still shows persistent stool in the ascending colon. Patient's currently being managed on ventilator and is in atrial fibrillation with RVR as well as paced rhythm. NG tube is connected to low intermittent suction, patient has mild sedation on board gastroenterology was consulted to assist with his constipation. Patient has round taut, abdomen with minimal hypoactive bowel sounds in his lower quadrants, no bowel sounds in the upper quadrants. Dependent on patient's response to Dulcolax suppository may need follow-up KUBs in the next 24-48 hours, Plan Diet n.p.o. with NG tube connected to low intermittent suction, consider tube feeds in the next 24-48 hours. KUB recheck, which still showed persistent stool in the ascending colon Bowel regimen continue, added Dulcolax suppository daily Monitor labs Supportive care Further recommendations to follow Patient was seen per myself and Dr. Jones, note was written on his behalf <Tiffanie Lopez - Last Filed: 07/06/18 11:34> - Attending Attestation Patient seen and examined Agree with above Continue with current supportive care Monitor labs X-ray reviewed still lots of stool in the a sending colon we will give the patient a gallon of GoLYTELY through the NG tube in hopes that we may cleanse out the colon Repeat KUB in a.m. <Trevor Jones E - Last Filed: 07/06/18 14:16>
[2018-07-06] MEDS: Potassium Chloride 25 MEQ Effervescent Tablet PO PRN (13:55)
[2018-07-06] MEDS: QUEtiapine 25 MG Tablet NG/OG SCH (13:55)
[2018-07-06] MEDS ORDERED: PEG 3350/E-Lyte Soln 4000 ML Bottle PO ONE (14:50)
--- NOTE | 2018-07-06 15:09 | P.PNPAL ---
Reason for Visit Reason for visit: a. To assist with evaluation and management of symptoms including: dyspnea, pain, agitation, constipation b. To assist medical decision maker(s) with: better understanding of current medical conditions; weighing benefits/burdens of medical treatment options; making medical treatment decisions. Subjective Subjective/Interval History: Patient resting in bed intubated on vent. Tolerating CPAP. More alert today, eyes open, meaningful eye contact, shakes head yes or no. Indicates no pain or nausea. Much calmer today. NO grimacing on palpation abd. KUB shows persistent stool ascending colon. RUQ distended, seems bit firmer today. GoLytely initiated per GI. Family/Friend Interactions: at bedside. Provided brief update. She is hoping he will be extubated. Objective Vital Signs: Vital Signs 07/05/18 15:59 07/05/18 16:00 07/05/18 18:00 Temperature 98.6 F Pulse Rate 84 79 Respiratory Rate 16 16 Blood Pressure 108/57 L Pulse Oximetry 98 99 07/05/18 20:00 07/05/18 20:55 07/05/18 22:00 Temperature 97.2 F L Pulse Rate 73 82 72 Respiratory Rate 16 16 Blood Pressure 118/66 Pulse Oximetry 100 100 07/06/18 00:00 07/06/18 01:55 07/06/18 02:00 Temperature 96.5 F L Pulse Rate 109 H 95 H Respiratory Rate 16 16 Blood Pressure 103/59 L Pulse Oximetry 100 99 07/06/18 04:00 07/06/18 04:44 07/06/18 06:00 Temperature 97.5 F L Pulse Rate 94 H 90 95 H Respiratory Rate 16 16 Blood Pressure 108/59 L Pulse Oximetry 96 97 07/06/18 07:47 07/06/18 12:11 07/06/18 12:13 Temperature Pulse Rate 83 Respiratory Rate 22 25 H 23 Blood Pressure Pulse Oximetry 94 L 100 Intake & Output 07/05/18 07/06/18 07/06/18 18:59 06:59 18:59 Intake Total 1770 / 1770 400 / 400 250 / 250 Output Total 825 / 825 1650 / 1650 Balance 945 / 945 -1250 / -1250 250 / 250 Weight 72.5 kg Intake: IV 1250 / 1250 250 / 250 Precedex Inj 1,000 MCG In NS 250 / 250 250 / 250 Inj 240 ML @ 0.2 MCG/KG/HR 3.6 mls/hr IV.CONT TITRATE PRN Rx#: [id number] LR 1000 mL Inj 1,000 ML @ Wide 1000 / 1000 Open IV.SIG BOLUS ONE Rx#: [id number] Oral 0 / 0 0 / 0 Tube Feeding 0 / 0 0 / 0 Tube Irrigant 120 / 120 0 / 0 Water Bolus Amount 400 / 400 400 / 400 Output: Urine 575 / 575 1550 / 1550 Stool 100 / 100 Gastric Drainage 250 / 250 0 / 0 Left Nare Nasogastric Tube 250 / 250 0 / 0 Other: Date of Last Bowel Movement 07/03/18 07/06/18 07/06/18 # Bowel Movements 0 0 Physical Exam: CONSTITUTIONAL/GENERAL: adequately nourished, in NAD SKIN: No jaundice, rashes, or lesions. No wounds seen anteriorly. Skin temperature appropriate. Not diaphoretic. HEAD: Atraumatic. Normocephalic. EYES: No scleral icterus. No injection or drainage. Fundi not examined. ENT: Nose without bleeding or purulent drainage. NGT CARDIOVASCULAR: irr HR without murmurs, gallops, or rubs. heart sounds faint/ distant RESPIRATORY/CHEST: Symmetric, unlabored respirations. CTA GASTROINTESTINAL: Abdomen semi firm, distended RUQ, RUQ ttp. No hepato- splenomegaly, or palpable masses. No guarding. Bowel sounds hypoactive. TF running. GENITOURINARY: Without palpable bladder distension. Nevarez catheter in place. MUSCULOSKELETAL: BUE in restraints. Extremities without clubbing, cyanosis, or edema. No mottling or clubbing. NEUROLOGICAL: more alert today, opens eyes and tracks, can shake head 'yes' and 'no' sedated on vent. PSYCHIATRIC: unable to assess, pt sedated on vent Diagnostic Tests Laboratory: Laboratory Results - last 72 hr 07/03/18 07/03/18 07/03/18 12:10 17:57 20:43 WBC RBC Hgb Hct MCV MCH MCHC RDW Plt Count MPV Prelim Diff (Auto) Neut % (Auto) Lymph % (Auto) [place] % (Auto) Eos % (Auto) Baso % (Auto) Neut # (Auto) Lymph # (Auto) [place] # (Auto) Eos # (Auto) Baso # (Auto) WBC Differential Diff Scan Differential Comment Platelet Estimate Platelet Morphology Puncture Site Patient Temperature O2 Saturation ABG pH ABG pCO2 ABG pO2 ABG HCO3 ABG O2 Content ABG Base Excess ABG Methemoglobin Carlos Test Hemoglobin Carboxyhemoglobin O2 Delivery Device Vent Setting Inspired O2 Critical Value Sodium Potassium Chloride Carbon Dioxide Anion Gap BUN Creatinine Estimated GFR POC Glucose 85 121 H Random Glucose Calcium Total Bilirubin AST ALT Alkaline Phosphatase Total Protein Albumin Urine Color Yellow Urine Clarity Cloudy H Urine pH 5.0 Ur Specific [place] 1.021 Urine Protein 100 H Urine Glucose (UA) Negative Urine Ketones Trace Urine Occult Blood Small H Urine Nitrate Negative Urine Bilirubin Negative Urine Urobilinogen Less than 2 Ur Leukocyte Esterase Negative Urine RBC 1 Urine WBC 2 Hyaline Casts 5 Granular Casts 1 Urine Mucus Few H Micro UA Comment Culture not ind Urine Culture Comments Culture not ind 07/04/18 07/04/18 07/04/18 04:30 04:30 09:24 WBC 7.6 RBC 3.94 L Hgb 12.1 L Hct 36.8 L MCV 93.5 MCH 30.8 MCHC 32.9 RDW 16.3 Plt Count 52 L MPV 12.1 H Prelim Diff (Auto) Slide review pending Neut % (Auto) 79.7 H Lymph % (Auto) 13.4 [place] % (Auto) 6.6 Eos % (Auto) 0.1 Baso % (Auto) 0.2 Neut # (Auto) 6.1 Lymph # (Auto) 1.0 [place] # (Auto) 0.5 Eos # (Auto) 0.0 Baso # (Auto) 0.0 WBC Differential . Diff Scan Auto diff confirmed Differential Comment . Platelet Estimate Low L Platelet Morphology Enlarged H Puncture Site Patient Temperature O2 Saturation ABG pH ABG pCO2 ABG pO2 ABG HCO3 ABG O2 Content ABG Base Excess ABG Methemoglobin Carlos Test Hemoglobin Carboxyhemoglobin O2 Delivery Device Vent Setting Inspired O2 Critical Value Sodium 157 H* Potassium 3.5 Chloride 116 H Carbon Dioxide 27.2 Anion Gap 14 BUN 89 H Creatinine 1.76 H Estimated GFR 38 L POC Glucose 308 H Random Glucose 222 H Calcium 8.6 Total Bilirubin 0.5 AST 175 H ALT 200 H Alkaline Phosphatase 101 Total Protein 6.6 Albumin 2.3 L Urine Color Urine Clarity Urine pH Ur Specific [place] Urine Protein Urine Glucose (UA) Urine Ketones Urine Occult Blood Urine Nitrate Urine Bilirubin Urine Urobilinogen Ur Leukocyte Esterase Urine RBC Urine WBC Hyaline Casts Granular Casts Urine Mucus Micro UA Comment Urine Culture Comments 07/04/18 07/04/18 07/04/18 10:09 11:48 16:19 WBC RBC Hgb Hct MCV MCH MCHC RDW Plt Count MPV Prelim Diff (Auto) Neut % (Auto) Lymph % (Auto) [place] % (Auto) Eos % (Auto) Baso % (Auto) Neut # (Auto) Lymph # (Auto) [place] # (Auto) Eos # (Auto) Baso # (Auto) WBC Differential Diff Scan Differential Comment Platelet Estimate Platelet Morphology Puncture Site Right radial Patient Temperature 98.6 O2 Saturation 96 ABG pH 7.47 H ABG pCO2 38 ABG pO2 112 ABG HCO3 27 H ABG O2 Content 16.3 ABG Base Excess 3.3 H ABG Methemoglobin 1.5 Carlos Test Present Hemoglobin 12.0 Carboxyhemoglobin 0.7 O2 Delivery Device Ventilator Vent Setting Cpap: 8/+5/35% Inspired O2 35 Critical Value No Sodium Potassium Chloride Carbon Dioxide Anion Gap BUN Creatinine Estimated GFR POC Glucose 320 H 191 H Random Glucose Calcium Total Bilirubin AST ALT Alkaline Phosphatase Total Protein Albumin Urine Color Urine Clarity Urine pH Ur Specific [place] Urine Protein Urine Glucose (UA) Urine Ketones Urine Occult Blood Urine Nitrate Urine Bilirubin Urine Urobilinogen Ur Leukocyte Esterase Urine RBC Urine WBC Hyaline Casts Granular Casts Urine Mucus Micro UA Comment Urine Culture Comments 07/04/18 07/05/18 07/05/18 20:07 00:04 03:53 WBC RBC Hgb Hct MCV MCH MCHC RDW Plt Count MPV Prelim Diff (Auto) Neut % (Auto) Lymph % (Auto) [place] % (Auto) Eos % (Auto) Baso % (Auto) Neut # (Auto) Lymph # (Auto) [place] # (Auto) Eos # (Auto) Baso # (Auto) WBC Differential Diff Scan Differential Comment Platelet Estimate Platelet Morphology Puncture Site Patient Temperature O2 Saturation ABG pH ABG pCO2 ABG pO2 ABG HCO3 ABG O2 Content ABG Base Excess ABG Methemoglobin Carlos Test Hemoglobin Carboxyhemoglobin O2 Delivery Device Vent Setting Inspired O2 Critical Value Sodium Potassium Chloride Carbon Dioxide Anion Gap BUN Creatinine Estimated GFR POC Glucose 103 88 119 H Random Glucose Calcium Total Bilirubin AST ALT Alkaline Phosphatase Total Protein Albumin Urine Color Urine Clarity Urine pH Ur Specific [place] Urine Protein Urine Glucose (UA) Urine Ketones Urine Occult Blood Urine Nitrate Urine Bilirubin Urine Urobilinogen Ur Leukocyte Esterase Urine RBC Urine WBC Hyaline Casts Granular Casts Urine Mucus Micro UA Comment Urine Culture Comments 07/05/18 07/05/18 07/05/18 04:15 04:15 07:56 WBC 7.0 RBC 3.56 L Hgb 11.1 L Hct 33.9 L MCV 95.3 MCH 31.1 MCHC 32.6 RDW 16.3 Plt Count 55 L MPV 12.2 H Prelim Diff (Auto) Slide review pending Neut % (Auto) 74.3 H Lymph % (Auto) 19.0 [place] % (Auto) 5.9 Eos % (Auto) 0.4 Baso % (Auto) 0.4 Neut # (Auto) 5.2 Lymph # (Auto) 1.3 [place] # (Auto) 0.4 Eos # (Auto) 0.0 Baso # (Auto) 0.0 WBC Differential . Diff Scan Auto diff confirmed Differential Comment . Platelet Estimate Low L Platelet Morphology Enlarged H Puncture Site Patient Temperature O2 Saturation ABG pH ABG pCO2 ABG pO2 ABG HCO3 ABG O2 Content ABG Base Excess ABG Methemoglobin Carlos Test Hemoglobin Carboxyhemoglobin O2 Delivery Device Vent Setting Inspired O2 Critical Value Sodium 152 H Potassium 3.6 Chloride 114 H Carbon Dioxide 28.1 Anion Gap 10 BUN 82 H Creatinine 1.69 H Estimated GFR 40 L POC Glucose 171 H Random Glucose 118 H D Calcium 8.2 L Total Bilirubin 0.7 AST 105 H ALT 149 H Alkaline Phosphatase 80 Total Protein 6.5 Albumin 2.2 L Urine Color Urine Clarity Urine pH Ur Specific [place] Urine Protein Urine Glucose (UA) Urine Ketones Urine Occult Blood Urine Nitrate Urine Bilirubin Urine Urobilinogen Ur Leukocyte Esterase Urine RBC Urine WBC Hyaline Casts Granular Casts Urine Mucus Micro UA Comment Urine Culture Comments 07/05/18 07/05/18 07/05/18 12:12 17:52 19:28 WBC RBC Hgb Hct MCV MCH MCHC RDW Plt Count MPV Prelim Diff (Auto) Neut % (Auto) Lymph % (Auto) [place] % (Auto) Eos % (Auto) Baso % (Auto) Neut # (Auto) Lymph # (Auto) [place] # (Auto) Eos # (Auto) Baso # (Auto) WBC Differential Diff Scan Differential Comment Platelet Estimate Platelet Morphology Puncture Site Patient Temperature O2 Saturation ABG pH ABG pCO2 ABG pO2 ABG HCO3 ABG O2 Content ABG Base Excess ABG Methemoglobin Carlos Test Hemoglobin Carboxyhemoglobin O2 Delivery Device Vent Setting Inspired O2 Critical Value Sodium Potassium Chloride Carbon Dioxide Anion Gap BUN Creatinine Estimated GFR POC Glucose 183 H 197 H 202 H Random Glucose Calcium Total Bilirubin AST ALT Alkaline Phosphatase Total Protein Albumin Urine Color Urine Clarity Urine pH Ur Specific [place] Urine Protein Urine Glucose (UA) Urine Ketones Urine Occult Blood Urine Nitrate Urine Bilirubin Urine Urobilinogen Ur Leukocyte Esterase Urine RBC Urine WBC Hyaline Casts Granular Casts Urine Mucus Micro UA Comment Urine Culture Comments 07/05/18 07/06/18 07/06/18 23:46 03:57 03:57 WBC 6.3 RBC 3.38 L Hgb 10.5 L Hct 31.9 L MCV 94.4 MCH 31.0 MCHC 32.9 RDW 16.0 Plt Count 48 L MPV 13.0 H Prelim Diff (Auto) Slide review pending Neut % (Auto) 81.1 H Lymph % (Auto) 13.7 [place] % (Auto) 4.8 Eos % (Auto) 0.2 Baso % (Auto) 0.2 Neut # (Auto) 5.1 Lymph # (Auto) 0.9 L [place] # (Auto) 0.3 Eos # (Auto) 0.0 Baso # (Auto) 0.0 WBC Differential . Diff Scan Auto diff confirmed Differential Comment . Platelet Estimate Platelet Morphology Puncture Site Patient Temperature O2 Saturation ABG pH ABG pCO2 ABG pO2 ABG HCO3 ABG O2 Content ABG Base Excess ABG Methemoglobin Carlos Test Hemoglobin Carboxyhemoglobin O2 Delivery Device Vent Setting Inspired O2 Critical Value Sodium 145 Potassium 3.1 L Chloride 108 H Carbon Dioxide 25.9 Anion Gap 11 BUN 58 H Creatinine 1.45 H Estimated GFR 48 L POC Glucose 165 H Random Glucose 140 H Calcium 7.8 L Total Bilirubin 0.6 AST 81 H ALT 120 H Alkaline Phosphatase 74 Total Protein 6.0 L Albumin 2.1 L Urine Color Urine Clarity Urine pH Ur Specific [place] Urine Protein Urine Glucose (UA) Urine Ketones Urine Occult Blood Urine Nitrate Urine Bilirubin Urine Urobilinogen Ur Leukocyte Esterase Urine RBC Urine WBC Hyaline Casts Granular Casts Urine Mucus Micro UA Comment Urine Culture Comments 07/06/18 07/06/18 07/06/18 04:02 08:37 13:40 WBC RBC Hgb Hct MCV MCH MCHC RDW Plt Count MPV Prelim Diff (Auto) Neut % (Auto) Lymph % (Auto) [place] % (Auto) Eos % (Auto) Baso % (Auto) Neut # (Auto) Lymph # (Auto) [place] # (Auto) Eos # (Auto) Baso # (Auto) WBC Differential Diff Scan Differential Comment Platelet Estimate Platelet Morphology Puncture Site Patient Temperature O2 Saturation ABG pH ABG pCO2 ABG pO2 ABG HCO3 ABG O2 Content ABG Base Excess ABG Methemoglobin Carlos Test Hemoglobin Carboxyhemoglobin O2 Delivery Device Vent Setting Inspired O2 Critical Value Sodium Potassium Chloride Carbon Dioxide Anion Gap BUN Creatinine Estimated GFR POC Glucose 157 H 254 H 235 H Random Glucose Calcium Total Bilirubin AST ALT Alkaline Phosphatase Total Protein Albumin Urine Color Urine Clarity Urine pH Ur Specific [place] Urine Protein Urine Glucose (UA) Urine Ketones Urine Occult Blood Urine Nitrate Urine Bilirubin Urine Urobilinogen Ur Leukocyte Esterase Urine RBC Urine WBC Hyaline Casts Granular Casts Urine Mucus Micro UA Comment Urine Culture Comments Result Diagrams: 07/06/18 03:57 07/06/18 03:57 Microbiology: Microbiology 07/03/18 07:44 Aerobic Blood Culture - Preliminary Blood - Peripheral No growth in 3 days Anaerobic Blood Culture - Preliminary No growth in 3 days 07/03/18 07:49 Aerobic Blood Culture - Preliminary Blood - Peripheral No growth in 3 days Anaerobic Blood Culture - Preliminary No growth in 3 days 07/03/18 12:10 Gram Stain - Final Sputum - Endotracheal Sputum Culture - Final Staphylococcus aureus Klebsiella pneumoniae Imaging: ITS Impressions Abdomen/Bladder Ultrasound 06/21/18 00:00 CONCLUSION: 1. Increased echogenicity of both kidneys typical of chronic parenchymal disease. 2. No evidence of acute obstructive uropathy. 3. Bilateral benign appearing renal cysts. Abdomen/Pelvis CT 07/04/18 00:00 CONCLUSION: The bulging in the right lower quadrant is related to distention of the cecum. Head CT 07/04/18 00:00 CONCLUSION: 1. No acute intracranial abnormality is identified. Stable chronic findings include generalized atrophy and chronic periventricular white matter change. 2. Increased fluid in the right mastoid air cells and mild but new mucoperiosteal thickening in the ethmoid and sphenoid sinus. . Chest X-Ray 07/05/18 00:00 CONCLUSION: Mild bibasal atelectasis. No significant changes. Abdomen X-Ray 07/06/18 00:00 CONCLUSION: Persistent stool in ascending colon with some distention. Procedures: 8/11 reintubated 06/26 heart cath Assessment and Plan - Disease Oriented Problem List (1) Respiratory failure (2) Non-ST elevated myocardial infarction (non-STEMI) (3) Cardiomyopathy (4) PVD (peripheral vascular disease) (5) Tobacco abuse Pertinent Non-Medical Issues: Psychosocial: Pt originally from [place]. with 4 kids. 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 Spiritual: islam. decline office system analyst visit. Legal: Per [place] statute is proxy decision maker. Ethical issues impacting care: none Important Contacts: Kristine Avila, - [phone] Prognosis: This is a 72-year-old male with history CHF, COPD, tobacco abuse, diabetes who presented 06/20 [place] He has a defibrillator implanted. His baseline ejection fraction is 25% and he is now at less than 20%. Patient reintubated 06/23. Had cardiac cath 06/26 with finding 3 vessel CAD, non ischemic dilated cardiomyopathy. Unclear if he is candidate for heart transplant d/t significant COPD. He is at high risk for continued complications and decline. Code Status: Full Code Plan: - LEGAL DECISON MAKER -patient is incapacitated to make medical decisions. Per [place] statutes his proxy decision maker - CODE STATUS-full code - GOALS - Goals aggressive. wants to pursue trach/PEG, says all their children are "100% on board." She understands that even with tracheostomy, pt still requires ventilator. She is hoping for him to be extubated soon. - SYMPTOMS - * pain - multifactorial- prolonged bedbound status, mult tubes and lines, now cecal ileus. chest pain prior to admission. his RUQ is distended and a bit more firm today but he is not tender on exam. no pain meds ordered other than ASA. at this time defer pain mgmt to [facility] * constipation - last BM 07/03, now with ileus. RUQ distended and semifirm. KUB showing persistent stool ascending colon. has amanda lactulose, senna. now has rectal tube and GoLytely started per GI and would need decompressive colonoscopy if no improvement or if has worsening. reluctant to pursue colonoscopy but would do so if recommended. if he continues to worsen there is risk of perforation bowel and need for surgery. * dyspnea -reintubated 06/23. Recent N STEMI. EF < 20% . s/p cardiac cath 06/26 findings 3 vessel CAD, nonischemic dilated cardiomyopathy. pulmonology consulted for significant COPD. vent weaning difficult 2/2 agitation. CV surgery consulted, not candidate at this time. steroids, scheduled DuoNeb's, ongoing CPAP trials * agitation - multlifactorial. much calmer today and more alert. + precedex, 50mg seroquel BID- this is held d/t low BP, baclofen. sedation per [facility] - d/w RN - Palliative care will continue to follow during hospital course as condition evolves, to assist patient/decision-maker with understanding of medical conditions, weighing benefits/burdens of treatment options, for clarification of goals of treatment. Additionally will assist with any symptoms of palliative concern Attestation Attestation: To help prompt me to consider important information that might be impacting today's encounter and assessment, information from prior notes written by myself or my colleagues may have been "brought forward" into today's note. My signature on this note, however, is an attestation that I personally performed the exam, history, and/or decision-making noted today, and, unless otherwise indicated, the interactions with patient, family, and staff as well as the review of records all occurred today. I also attest that the listed assessment and stated plan reflect my best clinical judgment today based on the combination of historical information, prior notes, and today's exam/ interactions. When time spent is documented, it refers only to time spent today by the signer, or if indicated, combined time spent today by collaborating physician/nurse practitioner.
[2018-07-06] MEDS: Bisacodyl 10 MG Supp RECTAL SCH (16:14)
[2018-07-06] MEDS ORDERED: Potassium Bicarbonate 25 MEQ Effervescent Tablet NG/OG ONE (18:15)
[2018-07-07] MEDS: Dextrose 5% in Water Inj 1,000 ML IV.CONT SCH ×3 (01:42→17:49)
--- NOTE | 2018-07-07 04:19 | XR ---
EXAM DATE: 07/07/2018 3:42 AM EDT AGE/SEX: 72 years / Male INDICATIONS: Abdominal distention. CLINICAL DATA: This is the patient's subsequent encounter. Patient reports that signs and symptoms h ave been present for 1 week and indicates a pain score of Nonresponsive. MEDICAL/SURGICAL HISTORY: Non-responsive. Non-responsive. COMPARISON: C, ABDOMEN 1V KUB, 07/06/2018. . FINDINGS: There is some interval decompression of the proximal bowel loops with less stool identified in this region as well. There is still some mild air distention of the colon in a pattern suggesting a hypody namic ileus. No pneumoperitoneum. Osseous structures are grossly intact. Rectal tube remains in place CONCLUSION: Bowel gas pattern suggesting hypodynamic ileus. Decreasing amount of stool in the ascending colon. Electronically signed by: Alex Dinh MD 07/07/2018 4:18 AM EDT
[2018-07-07] MEDS: Insulin NovoLOG Aspart Correctional Sugar Inj SQ SCH ×6 (04:22→23:23)
[2018-07-07] MEDS: Dextrose 50% in Water 50 ML Vial IV.PUSH PRN (04:23)
[2018-07-07] MEDS: Dexmedetomidine Inj 1,000 MCG in Sodium Chlor 0.9% Inj 240 ML IV.CONT PRN ×3 (04:23→23:24)
--- NOTE | 2018-07-07 04:23 | XR ---
EXAM DATE: 07/07/2018 3:43 AM EDT AGE/SEX: 72 years / Male INDICATIONS: Shortness of breath, possible pulmonary disease. CLINICAL DATA: This is the patient's subsequent encounter. Patient reports that signs and symptoms h ave been present for 1 week and indicates a pain score of Nonresponsive. MEDICAL/SURGICAL HISTORY: Non-responsive. Non-responsive. COMPARISON: [facility] [place], CHEST 1V SINGLE AP, 07/05/2018. . FINDINGS: A single AP view of the chest demonstrates some developing airspace disease in the medial aspect of t he right lower lung. Left lung is grossly clear. Heart size is normal. Endotracheal tube remains appr opriately positioned above the [place] with a nasogastric tube entering the stomach and extending off the inferior aspect of the image. Left subclavian bipolar pacer remains intact CONCLUSION: 1. Faint inferior right perihilar medial right base airspace process could represent atelectasis or early infiltrate. Left lung is clear. 2. Stable position of life-support tubes. Electronically signed by: Alex Dinh MD 07/07/2018 4:22 AM EDT
[2018-07-07] MEDS: Baclofen 10 MG Tablet PO SCH ×3 (05:24→21:46)
[2018-07-07 05:31] LABS: Baso % (Auto) 0.2 % (0.0-2.0); Eos % (Auto) 0.4 % (0.0-4.0); Hematocrit 31.9 % (39.0-51.0); Hemoglobin 10.6 gm/dL (13.0-17.0); Lymph # (Auto) 0.8 th/mm3 (1.0-4.8); Lymph % (Auto) 10.7 % (9.0-44.0); Mean Corpuscular HGB Conc 33.3 % (32.0-36.0); Mean Corpuscular Hemoglobin 31.3 pg (27.0-34.0); Mean Corpuscular Volume 93.8 fL (80.0-100.0); Mono # (Auto) 0.4 th/mm3 (0.0-0.9); Mono % (Auto) 4.7 % (0.0-8.0); Neut # (Auto) 6.5 th/mm3 (1.8-7.7); Platelet Count 58 th/mm3 (150-450); Red Cell Distribution Width 15.6 % (11.6-17.2); White Blood Count 7.7 th/mm3 (4.0-11.0)
[2018-07-07 06:02] LABS: Alanine Aminotransferase 120 U/L (12-78); Albumin 2.2 g/dL (3.4-5.0); Alkaline Phosphatase 95 U/L (45-117); Anion Gap 10 meq/L (5-15); Aspartate Aminotransferase 99 U/L (15-37); Blood Urea Nitrogen 45 mg/dL (7-18); Calcium 8.1 mg/dL (8.5-10.1); Carbon Dioxide 27.2 meq/L (21.0-32.0); Chloride 109 meq/L (98-107); Glomerular Filtration Rate 56 mL/min (>89); Magnesium 2.3 mg/dL (1.5-2.5); Phosphorus 2.5 mg/dL (2.5-4.9); Potassium 3.5 meq/L (3.5-5.1); Sodium 146 meq/L (136-145); Total Protein 6.2 g/dL (6.4-8.2)
[2018-07-07 06:09] LABS: Glucose,Random 44 mg/dL (74-106)
--- NOTE | 2018-07-07 07:11 | P.PNCC ---
Subjective Subjective Remarks/Hospital Course: Elderly male with a medical history significant for viral cardiomyopathy who was traveling on vacation from [place] with his family in [place] and today developed chest pain with worsening shortness of breath for which EMS was called by family. Patient was extremely short of breath on the arrival and hypoxic and they proceeded with endotracheal intubation and patient was transferred to the ER. In the ER it was noted that his cuff was leaking hence ET tube was exchanged by ER physician and patient was placed on mechanical ventilation. Per his family he has a defibrillator and is followed by his sanitation officer in [place] whom he saw in December of this year. He reportedly does not take any diuretic. Chest x-ray done in the ER revealed pulmonary edema. EKG revealed atrial fibrillation. Patient was accepted for admission by critical care medicine service. When I evaluated him in the ER he was sedated with propofol, orally intubated on mechanical ventilation. History was obtained by reviewing records, discussion with family as well as ER physician. Subjective 06/21: Afebrile. Hemodynamically stable. Troponin bumped 14. Started on heparin drip. Sedated with propofol and fentanyl drips. Arousable the ventilator and is very agitated will attempt to withdrawal tube. PEEP down to 5. 06/22: Sedated, orally intubated on mechanical ventilation. Gets agitated unenlightening sedation so Precedex added in addition to propofol and fentanyl. CPAP trials ongoing to decide extubation. Cardiac cath postponed by Dr. Noonan in view of questionable neurologic status. 06/23: Patient was extubated yesterday however was requiring significant amount of O2 post extubation with a facemask as well as nasal cannula. This morning around 4 AM due to increased work of breathing and hypoxia he was reintubated by Dr. Lino and placed back on mechanical ventilation. Currently he is sedated , orally intubated on mechanical ventilation. Postintubation chest x-ray shows ET tube in appropriate position and pulmonary edema pattern with perihilar infiltrates bilaterally. 06/24: Remains sedated, orally intubated on mechanical ventilation. 06/25: Remains sedated, orally intubated on mechanical ventilation. 06/26: Remains sedated, orally intubated on mechanical ventilation. Pacer backup rate increased to 60/min yesterday due to hypotension. Awaiting cardiac catheterization. 06/27: Sedated, orally intubated on mechanical ventilation. Underwent cardiac catheterization which revealed nonobstructive CAD. Patient has nonischemic dilated cardiomyopathy per discussion with Dr. Noonan. Initiated dobutamine 2.5 mics per KG per minute on 06/26. Filling pressures not elevated per Dr. Noonan on cardiac cath. 06/28: Sedated, arousable, orally intubated on mechanical ventilation. IV hydrocortisone switched to Solu-Medrol yesterday. Pulmonary consult with Dr. Villegas as patient appears to have significant COPD in addition to cardiomyopathy. Remains on dobutamine at 1.5 mics per KG per minute. Diuresing well. Does not appear to be fluid overloaded at this time. Daily CPAP trials ongoing. 06/29: Remains intubated sedated with Precedex and fentanyl. Remains on dobutamine. Patient is able to track and follow some commands. CXR appears clear today 06/30 Remains intubated and on low dose dobutamine 1.25 mcg/kg/min. Will place on sedation vacation and CPAP trial and plan for trial of extubation as tolerated. Has continued diuresis and CXR is now clear of edema. 07/01: 07/01 Tolerates CPAP. Mental status currently seems limiting factor to extubation but there is some improvement compared with yesterday. Now on seroquel, off fentanyl drip ( states opioids have historically caused delirium for him). On precedex as needed, weaning down. Yesterday he was staring ahead, roving head movements, wild-eyed expressions as if hallucinating , very weak in all extremities. Today he does NOT follow commands but by this evening he does track, moves extremities vigorously and purposefully, strong cough, lifts head up off bed. Appears he will soon be appropriate for trial of extubation but will wait in effort to optimize to full ability, as failure of extubation trial will necessitate trach (currently day #9 following reintubation) is aware. 07/02: No events over the night. The patient tolerated CPAP this a.m. but he became increasingly agitated and tachypneic, currently now back on full support. Sedation is achieved with dexmedetomidine at 1. T-max of 99.1. I/O 4575/3200. 07/03: Episode of agitation over the night requiring increasing Precedex and dose of Ativan. This a.m. patient on dexmedetomidine at 1.4 sedated arousable, not following commands. T-max of 100.4. Urine output of 1400 mL's over the last 24 hours. 07/04: No events over the night. Patient tolerated CPAP yesterday for approximately 6 hours however mental status remains poor. T-max of 100.4 yesterday morning, afebrile since then. Diuresed great over the last 24 hours, 4625 mL's since yesterday, almost 2.5 L negative fluid balance. CT abdomen and pelvis not yet done. 07/05: No events over the night. CT abdomen and pelvis report reviewed, cecum dilation up to 10 cm. Tube feeds were stopped and NG tube was placed on low intermittent wall suction. Patient remains altered with episodes of severe agitation. Currently on Precedex at 0.8. T-max of 100.5 yesterday at noon, afebrile since then. Urine output remains adequate. I/O 3035/1850. 07/06: Patient did well over the night. T-max of 99.8. Hypotension resolved yesterday after fluid bolus administration. I/O 2170/2475. I had long discussion yesterday with the and the family is leaning towards trach. This morning patient on Precedex at 1.5, fully awake, intermittently following some commands. Subjective: 07/07: Episode of hypoglycemia this morning down to 44. Dextrose given. Patient remains awake, intermittently follows simple commands, on dexmedetomidine at 1.5. Patient remains afebrile, with a T-max of 98.4. I/O 1230/2550. NGT remains at low intermittent wall suction and after GoLYTELY rectal tube was placed on suction with significant amount of drainage. Objective Vital Signs / I&O: Vital Signs 07/06/18 07:47 07/06/18 08:00 07/06/18 10:00 Temperature 97.1 F L Pulse Rate 89 87 Respiratory Rate 22 25 H Blood Pressure 135/61 Pulse Oximetry 94 L 07/06/18 12:00 07/06/18 12:11 07/06/18 12:13 Temperature 98.4 F Pulse Rate 84 83 Respiratory Rate 25 H 23 Blood Pressure 97/52 L Pulse Oximetry 100 100 07/06/18 14:00 07/06/18 15:21 07/06/18 16:00 Temperature 98.3 F Pulse Rate 140 H 84 81 Respiratory Rate 26 H 25 H Blood Pressure 95/50 L Pulse Oximetry 100 100 07/06/18 18:00 07/06/18 20:00 07/06/18 21:00 Temperature 97.3 F L Pulse Rate 81 86 78 Respiratory Rate 17 16 Blood Pressure 93/54 L Pulse Oximetry 98 07/06/18 22:00 07/06/18 22:29 07/07/18 00:00 Temperature 96.8 F L Pulse Rate 84 73 Respiratory Rate 16 17 Blood Pressure 108/58 L Pulse Oximetry 100 100 07/07/18 01:20 07/07/18 04:00 Temperature Pulse Rate 81 Respiratory Rate 16 16 Blood Pressure Pulse Oximetry 100 100 Intake & Output 07/06/18 07/07/18 07/07/18 18:59 06:59 18:59 Intake Total 730 / 730 500 / 500 Output Total 2550 / 2550 Balance -1820 / -1820 500 / 500 Intake: IV 250 / 250 500 / 500 Precedex Inj 1,000 MCG In NS 250 / 250 500 / 500 Inj 240 ML @ 0.2 MCG/KG/HR 3.6 mls/hr IV.CONT TITRATE PRN Rx#: [id number] Oral 0 / 0 Tube Feeding 0 / 0 Tube Irrigant 0 / 0 Water Bolus Amount 480 / 480 Output: Urine 2450 / 2450 Stool 100 / 100 Gastric Drainage 0 / 0 Left Nare Nasogastric Tube 0 / 0 Other: Date of Last Bowel Movement 07/06/18 07/06/18 # Bowel Movements 0 Result Diagrams: 07/07/18 03:39 07/07/18 03:39 Imaging: Abdomen/Bladder Ultrasound 06/21/18 00:00 CONCLUSION: 1. Increased echogenicity of both kidneys typical of chronic parenchymal disease. 2. No evidence of acute obstructive uropathy. 3. Bilateral benign appearing renal cysts. Abdomen/Pelvis CT 07/04/18 00:00 CONCLUSION: The bulging in the right lower quadrant is related to distention of the cecum. Head CT 07/04/18 00:00 CONCLUSION: 1. No acute intracranial abnormality is identified. Stable chronic findings include generalized atrophy and chronic periventricular white matter change. 2. Increased fluid in the right mastoid air cells and mild but new mucoperiosteal thickening in the ethmoid and sphenoid sinus. . Chest X-Ray 07/07/18 00:00 CONCLUSION: 1. Faint inferior right perihilar medial right base airspace process could represent atelectasis or early infiltrate. Left lung is clear. 2. Stable position of life-support tubes. Abdomen X-Ray 07/07/18 08:00 CONCLUSION: Bowel gas pattern suggesting hypodynamic ileus. Decreasing amount of stool in the ascending colon. Objective Remarks: GENERAL: Elderly gentleman, intubated, awake, ill-appearing. HEENT: Pupils equal, and reactive. Sclerae are anicteric. Neck is supple without rigidity. + NGT. Orally intubated. Neck veins are not distended. CARDIOVASCULAR: Regular S1 and S2, no murmurs. Permanent pacemaker over the left chest. RESPIRATORY: Clear breath sounds bilateral. No wheezes. Good air entry. GASTROINTESTINAL: Abdomen is soft, appears non-tender, distention over the right lower quadrant -improved. Bowel sounds are improved. MUSCULOSKELETAL: Warm, extremities with trace bilateral lower extremity edema. No clubbing. NEUROLOGICAL: Intubated, awake, intermittently following commands, shows thumbs up over both upper extremities and he is trying to move both lower extremities however he remains weak. Assessment and Plan - Assessment and Plan Plan: Assessment: Acute respiratory failure on mechanical ventilation -unchanged, on 0.35 FiO2. Yesterday he tolerated CPAP for approximately 6 hours. Acute decompensated CHF - systolic and diastolic EF 20% -appears euvolemic Staph aureus pneumonia -afebrile over the last 48 hours Dilated cardiomyopathy Atrial fibrillation -rate controlled Non-STEMI FIDE -creatinine normalizing, urine output remains adequate Hypernatremia -resolved Thrombocytopenia -unchanged Adynamic ileus - ?[place] -distention is improved DM -episode of hypoglycemia this a.m. B/L carotid Stenosis 40-59% Erectile Dysfunction PAD LBBB- chronic Hypertension COPD History of pacemaker/defibrillator placement Hyperlipidemia Glaucoma Normocytic anemia Plan: Neuro: -Seroquel decreased to 25 bid on 07/04 -Precedex drip, maintain RASS -1 to 0 -Follow neuro status, patient definitely the most awake I have seen him so far -Baclofen decreased to 10 mg 3 times daily/home medications on 07/04 -Gabapentin at 300 mg every 8 hourly has been on hold. Continue brimonidine 0.15% 2 times daily Cardiovascular: -Non-ST elevation MS. cardiology Dr. Noonan following for decompensated CHF, history of cardiomyopathy and positive troponin. -A. fib appears rate controlled. Continue aspirin 162 mg daily. Low-dose beta- ana metoprolol tartrate 12.5 mg twice daily. -No ENA inhibitor secondary to acute kidney injury. Off heparin GTT. Holding cilostazol 50 mg twice daily. Simvastatin 20 mg daily/40 mg pravastatin substituted. -Cardiac cath per Dr. Noonan. Angiographically mild to moderate 3-vessel coronary artery disease. EF 20%. -Gentle diuresis with Lasix daily Pulmonary: -On mechanical ventilation, PRVC. No auto PEEP, patient is synchronized with the ventilator. PIP is 21. -Attempt CPAP trial today and if tolerated will extubate -Albuterol/ipratropium every 4 hours with albuterol aerosols every 2 hours as needed dyspnea. -Vent bundle -Continue Solu-Medrol 40 mg but decrease frequency to daily -Pulm consult Dr. Shayy Villegas following for COPD -If patient fails extubation family is agreeable for tracheostomy GI/liver: -Tube feeds Glucerna 1.5 and 55 mL/h -stopped due to ileus -NG tube placed to low intermittent wall suction -Continue n.p.o. -Daily KUB -GI consult appreciated FEN/Renal/: -Continue D5W at 60 mL's per hour -Continue free water to 200 every 6 hours -Strict intake output, monitor and replete electrolytes, follow BUN/creatinine. ID: -Completed 14 days of cefepime, stopped on 07/04 -Sputum cultures growing MSSA. Stopped Zyvox on 06/26 -Repeat sputum culture sent on 07/03 growing staph aureus and gram-negative bacilli. In the absence of fever and leukocytosis we will hold antibiotics for now. If any signs of the compensation of recurrent fever we will start broad- spectrum antibiotics Heme: -Thrombocytopenia Dr. Campa following. HIT screen negative. -Heparin gtt. discontinued following cardiac cath. Continue Lovenox 40 mg subcutaneous daily DVT prophylaxis. -Worsening, no evidence of bleed Endocrine: -Holding metformin thousand milligrams twice daily, sitagliptin 100 mg daily sliding scale insulin with aspart insulin high protocol for glycemic control. -Started stress dose steroids with hydrocortisone 50 mill grams IV every 6 hourly on 06/23 due to borderline blood pressures and recent prednisone use -Switched to Solu-Medrol 80 mg IV every 12 hourly on 06/27. Now on tapering dose of Solu-Medrol 40 mg IV every 12 hours. -In the setting of hypoglycemia on 07/07 stop detemir 10 units subcu every 12 hours. Continue insulin sliding scale as needed Prophylaxis: PPI/SCDs. Continue Lovenox 40 mg subcutaneous daily for DVT prophylaxis. No family currently present at bedside. I discussed patient's condition in detail with multiple times yesterday. Level 2 follow-up.
[2018-07-07 08:01] LABS: Platelet Morphology Normal (Normal)
--- NOTE | 2018-07-07 09:39 | P.PNPL ---
Subjective Interval history: No events overnight on CPAP with PS 8, PEEP:5 and 35% FIO2. Awake. Physical Exam Vital signs: Vital Signs 07/06/18 10:00 07/06/18 12:00 07/06/18 12:11 Temperature 98.4 F Pulse Rate 87 84 Respiratory Rate 25 H Blood Pressure 97/52 L Pulse Oximetry 100 100 07/06/18 12:13 07/06/18 14:00 07/06/18 15:21 Temperature Pulse Rate 83 140 H 84 Respiratory Rate 23 26 H Blood Pressure Pulse Oximetry 100 07/06/18 16:00 07/06/18 18:00 07/06/18 20:00 Temperature 98.3 F 97.3 F L Pulse Rate 81 81 86 Respiratory Rate 25 H 17 Blood Pressure 95/50 L 93/54 L Pulse Oximetry 100 98 07/06/18 21:00 07/06/18 22:00 07/06/18 22:29 Temperature Pulse Rate 78 84 Respiratory Rate 16 16 Blood Pressure Pulse Oximetry 100 07/07/18 00:00 07/07/18 01:20 07/07/18 02:00 Temperature 96.8 F L Pulse Rate 73 77 Respiratory Rate 17 16 Blood Pressure 108/58 L Pulse Oximetry 100 100 07/07/18 04:00 07/07/18 06:00 07/07/18 08:45 Temperature 97.7 F Pulse Rate 76 73 Respiratory Rate 16 16 Blood Pressure 132/70 Pulse Oximetry 100 100 07/07/18 08:51 Temperature Pulse Rate Respiratory Rate 26 H Blood Pressure Pulse Oximetry 99 Intake & Output 07/06/18 07/07/18 07/07/18 18:59 06:59 18:59 Intake Total 730 / 730 900 / 900 Output Total 2550 / 2550 1875 / 1875 Balance -1820 / -1820 -975 / -975 Weight 71.5 kg Intake: IV 250 / 250 500 / 500 Precedex Inj 1,000 MCG In NS 250 / 250 500 / 500 Inj 240 ML @ 0.2 MCG/KG/HR 3.6 mls/hr IV.CONT TITRATE PRN Rx#: [id number] Oral 0 / 0 0 / 0 Tube Feeding 0 / 0 0 / 0 Tube Irrigant 0 / 0 0 / 0 Water Bolus Amount 480 / 480 400 / 400 Output: Urine 2450 / 2450 0 / 0 Stool 100 / 100 900 / 900 Urine Amount (Catheter) 975 / 975 3-way Urethral 975 / 975 Gastric Drainage 0 / 0 0 / 0 Left Nare Nasogastric Tube 0 / 0 0 / 0 Other: Date of Last Bowel Movement 07/06/18 07/07/18 # Bowel Movements 0 0 - Constitutional no acute distress - Routine HEENT Exam Head: Present: normocephalic, atraumatic Eye: Present: EOMI, PERRL, normal accommodation ENT: Present: mucous membranes moist - Routine Neck Exam Present: supple, full ROM, trachea midline - Routine Respiratory Exam Present: patient mechanically ventilated, CTA bilaterally - Routine Cardiovascular Exam Present: RRR, S1, S2, murmur - Routine Abdominal Exam Present: soft, normoactive bowel sounds - Routine Extremities Exam Present: pulses intact - Routine Skin Exam Present: intact - Routine Neurological Exam Present: alert - Routine Psychiatric Exam Present: unable to assess - Urinary Catheter Management Indwelling Urethral Catheter Cath placed during this visit: yes Reason for continuing: Other continuation reason Insertion date: 06/20/18 Insertion time: 21:24 3-way Urethral Cath placed during this visit: yes Reason for continuing: Acute urinary retention Insertion date: 07/06/18 Insertion time: 18:00 Assessment and Plan - Plan VDRF COPD Acute decompensated CHF - systolic and diastolic EF 20% Staph aureus pneumonia Dilated cardiomyopathy Atrial fibrillation Non-STEMI FIDE -improving History of pacemaker/defibrillator placement Anemia, thrombocytopenia Plan Continue with vent support keep sats >02% Bronchodilators, ICU vent bundle. Tolerating CPAP trials possible extubation today On Solumederol 40mg IV daily s/p abx ( Cefepime, Zyvox)monitor for signs of infections ( Fever, WBC) Repeat sputum cx CXR today-. Faint inferior right perihilar medial right base airspace process could represent atelectasis or early infiltrate. Left lung is clear. GI/DVT prophylaxis Continue treatment plan
[2018-07-07] MEDS: Brimonidine 0.15% Opth Drops 5 ML Bottle EACH EYE SCH ×2 (09:41→20:25)
[2018-07-07] MEDS: MethylPREDNISolone Sod Succinate Inj 40 MG/ML Vial IV.PUSH SCH (09:41)
[2018-07-07] MEDS: Hypromellose 0.3% Opth Gel 10 GM Bottle EACH EYE SCH ×2 (09:41→20:25)
[2018-07-07] MEDS: Senna/Docusate Sodium 8.6/50 MG Tablet PO SCH ×2 (09:42→20:25)
[2018-07-07] MEDS: QUEtiapine 25 MG Tablet NG/OG SCH ×2 (09:42→12:58)
--- NOTE | 2018-07-07 09:42 | P.PNCA ---
Subjective Interval history: intubated, sedated, not following commands Physical Exam Vital signs: Vital Signs 07/06/18 10:00 07/06/18 12:00 07/06/18 12:11 Temperature 98.4 F Pulse Rate 87 84 Respiratory Rate 25 H Blood Pressure 97/52 L Pulse Oximetry 100 100 07/06/18 12:13 07/06/18 14:00 07/06/18 15:21 Temperature Pulse Rate 83 140 H 84 Respiratory Rate 23 26 H Blood Pressure Pulse Oximetry 100 07/06/18 16:00 07/06/18 18:00 07/06/18 20:00 Temperature 98.3 F 97.3 F L Pulse Rate 81 81 86 Respiratory Rate 25 H 17 Blood Pressure 95/50 L 93/54 L Pulse Oximetry 100 98 07/06/18 21:00 07/06/18 22:00 07/06/18 22:29 Temperature Pulse Rate 78 84 Respiratory Rate 16 16 Blood Pressure Pulse Oximetry 100 07/07/18 00:00 07/07/18 01:20 07/07/18 02:00 Temperature 96.8 F L Pulse Rate 73 77 Respiratory Rate 17 16 Blood Pressure 108/58 L Pulse Oximetry 100 100 07/07/18 04:00 07/07/18 06:00 07/07/18 08:45 Temperature 97.7 F Pulse Rate 76 73 Respiratory Rate 16 16 Blood Pressure 132/70 Pulse Oximetry 100 100 07/07/18 08:51 Temperature Pulse Rate Respiratory Rate 26 H Blood Pressure Pulse Oximetry 99 Intake & Output 07/06/18 07/07/18 07/07/18 18:59 06:59 18:59 Intake Total 730 / 730 900 / 900 Output Total 2550 / 2550 1875 / 1875 Balance -1820 / -1820 -975 / -975 Weight 71.5 kg Intake: IV 250 / 250 500 / 500 Precedex Inj 1,000 MCG In NS 250 / 250 500 / 500 Inj 240 ML @ 0.2 MCG/KG/HR 3.6 mls/hr IV.CONT TITRATE PRN Rx#: [id number] Oral 0 / 0 0 / 0 Tube Feeding 0 / 0 0 / 0 Tube Irrigant 0 / 0 0 / 0 Water Bolus Amount 480 / 480 400 / 400 Output: Urine 2450 / 2450 0 / 0 Stool 100 / 100 900 / 900 Urine Amount (Catheter) 975 / 975 3-way Urethral 975 / 975 Gastric Drainage 0 / 0 0 / 0 Left Nare Nasogastric Tube 0 / 0 0 / 0 Other: Date of Last Bowel Movement 07/06/18 07/07/18 # Bowel Movements 0 0 - Urinary Catheter Management Indwelling Urethral Catheter Cath placed during this visit: yes Reason for continuing: Other continuation reason Insertion date: 06/20/18 Insertion time: 21:24 3-way Urethral Cath placed during this visit: yes Reason for continuing: Acute urinary retention Insertion date: 07/06/18 Insertion time: 18:00 Assessment and Plan - Assessment (1) Cardiomyopathy Code(s): I42.9 - Cardiomyopathy, unspecified Status: Acute (2) Cardiomyopathy Code(s): I42.9 - Cardiomyopathy, unspecified Status: Acute (3) PVD (peripheral vascular disease) Code(s): I73.9 - Peripheral vascular disease, unspecified Status: Acute (4) PVD (peripheral vascular disease) Code(s): I73.9 - Peripheral vascular disease, unspecified Status: Acute (5) Tobacco abuse Code(s): Z72.0 - Tobacco use Status: Acute (6) Respiratory failure Code(s): J96.90 - Respiratory failure, unspecified, unspecified whether with hypoxia or hypercapnia Status: Acute (7) Non-ST elevated myocardial infarction (non-STEMI) Code(s): I21.4 - Non-ST elevation (NSTEMI) myocardial infarction Status: Acute (8) Pulmonary edema cardiac cause Code(s): I50.1 - Left ventricular failure, unspecified Status: Acute - Plan 1.) NICM - end stage, euvolemic, refuses in state transfer, requesting transfer to [facility], d/w Dr Solis; beta ana and hellen held due to hypotension, diuresing to optimize potential extubation, he has hypernatremia 2.) CAD - nonobstructive, continue aspirin, pravachol 3.) Encephalopathy - moderate per EEG on sedation, neuro following 4.) d/w case with at the bedside 07/04/18 5.) Respiratory failure - he is euvolemic, appears to be due to pulmonary and/ or encephalopathic etilology, remains intubated, prolonged failure to wean from vent, his is considering trach placement 6.) indicates she wants peg and trach, family not at bedside 07/07/18 (6) Respiratory failure Qualifiers: Chronicity: acute Respiratory failure complication: hypoxia Qualified Code(s ): J96.01 - Acute respiratory failure with hypoxia
[2018-07-07] MEDS: Enoxaparin Inj 40 MG/0.4 ML Syringe SQ SCH (09:43)
[2018-07-07] MEDS: Bisacodyl 10 MG Supp RECTAL SCH (10:12)
[2018-07-07] MEDS: Metoprolol Tartrate 25 MG Tablet PO SCH ×2 (10:13→20:25)
[2018-07-07] MEDS: Potassium Chloride 25 MEQ Effervescent Tablet PO PRN (17:49)
--- NOTE | 2018-07-07 19:39 | P.PNGI ---
Subjective Interval history: Patient intubated laying comfortably in bed in no acute distress at bedside apparently he has had multiple loose bowel movements and she feels his belly is softer Physical Exam Vital signs: Vital Signs 07/06/18 20:00 07/06/18 21:00 07/06/18 22:00 Temperature 97.3 F L Pulse Rate 86 78 84 Respiratory Rate 17 16 Blood Pressure 93/54 L Pulse Oximetry 98 07/06/18 22:29 07/07/18 00:00 07/07/18 01:20 Temperature 96.8 F L Pulse Rate 73 Respiratory Rate 16 17 16 Blood Pressure 108/58 L Pulse Oximetry 100 100 100 07/07/18 02:00 07/07/18 04:00 07/07/18 06:00 Temperature 97.7 F Pulse Rate 77 76 73 Respiratory Rate 16 Blood Pressure 132/70 Pulse Oximetry 100 07/07/18 08:00 07/07/18 08:45 07/07/18 08:51 Temperature 99.9 F H Pulse Rate 70 Respiratory Rate 16 16 26 H Blood Pressure 118/58 L Pulse Oximetry 99 100 99 07/07/18 10:00 07/07/18 11:33 07/07/18 12:00 Temperature 99.3 F Pulse Rate 72 70 70 Respiratory Rate 29 H 26 H Blood Pressure 98/57 L Pulse Oximetry 100 100 07/07/18 14:00 07/07/18 14:51 07/07/18 16:00 Temperature 97.7 F Pulse Rate 70 69 Respiratory Rate 21 16 Blood Pressure 96/53 L Pulse Oximetry 100 100 07/07/18 16:17 07/07/18 17:35 07/07/18 18:00 Temperature Pulse Rate 69 70 Respiratory Rate 16 16 Blood Pressure Pulse Oximetry 100 Intake & Output 07/07/18 07/07/18 07/08/18 06:59 18:59 06:59 Intake Total 900 / 900 1740 / 1740 Output Total 1875 / 1875 3000 / 3000 Balance -975 / -975 -1260 / -1260 Weight 71.5 kg Intake: IV 500 / 500 1250 / 1250 Precedex Inj 1,000 MCG In NS 500 / 500 250 / 250 Inj 240 ML @ 0.2 MCG/KG/HR 3.6 mls/hr IV.CONT TITRATE PRN Rx#: [id number] Inj 1,000 ML @ 60 mls/hr IV 1000 / 1000 .CONT .[id number] [facility] Rx#:[id number] Oral 0 / 0 Tube Feeding 0 / 0 Tube Irrigant 0 / 0 Water Bolus Amount 400 / 400 400 / 400 Other 90 / 90 Output: Urine 0 / 0 Stool 900 / 900 1400 / 1400 Urine Amount (Catheter) 975 / 975 1450 / 1450 3-way Urethral 975 / 975 1450 / 1450 Gastric Drainage 0 / 0 150 / 150 Left Nare Nasogastric Tube 0 / 0 150 / 150 Other: Date of Last Bowel Movement 07/07/18 07/07/18 # Bowel Movements 0 - Constitutional no acute distress - Routine HEENT Exam Head: Present: normocephalic Eye: Present: EOMI - Routine Neck Exam Present: supple - Routine Respiratory Exam Present: CTA bilaterally - Routine Cardiovascular Exam Present: RRR - Routine Abdominal Exam Present: soft, normoactive bowel sounds - Routine Extremities Exam Absent: cyanosis, clubbing, edema - Urinary Catheter Management Indwelling Urethral Catheter Cath placed during this visit: yes Reason for continuing: Other continuation reason Insertion date: 06/20/18 Insertion time: 21:24 3-way Urethral Cath placed during this visit: yes Reason for continuing: Acute urinary retention Insertion date: 07/06/18 Insertion time: 18:00 Results - Labs CBC & Chem 7: 07/07/18 03:39 07/07/18 03:39 Laboratory Results - last 24 hr 07/06/18 07/06/18 07/07/18 19:29 23:37 03:39 WBC 7.7 RBC 3.40 L Hgb 10.6 L Hct 31.9 L MCV 93.8 MCH 31.3 MCHC 33.3 RDW 15.6 Plt Count 58 L MPV 13.0 H Prelim Diff (Auto) Slide review pending Neut % (Auto) 84.0 H Lymph % (Auto) 10.7 [place] % (Auto) 4.7 Eos % (Auto) 0.4 Baso % (Auto) 0.2 Neut # (Auto) 6.5 Lymph # (Auto) 0.8 L [place] # (Auto) 0.4 Eos # (Auto) 0.0 Baso # (Auto) 0.0 WBC Differential . Diff Scan Auto diff confirmed Differential Comment . Platelet Estimate Low L Platelet Morphology Normal Sodium Potassium Chloride Carbon Dioxide Anion Gap BUN Creatinine Estimated GFR POC Glucose 199 H 107 Random Glucose Calcium Phosphorus Magnesium Total Bilirubin AST ALT Alkaline Phosphatase Total Protein Albumin 07/07/18 07/07/18 07/07/18 03:39 04:10 05:01 WBC RBC Hgb Hct MCV MCH MCHC RDW Plt Count MPV Prelim Diff (Auto) Neut % (Auto) Lymph % (Auto) [place] % (Auto) Eos % (Auto) Baso % (Auto) Neut # (Auto) Lymph # (Auto) [place] # (Auto) Eos # (Auto) Baso # (Auto) WBC Differential Diff Scan Differential Comment Platelet Estimate Platelet Morphology Sodium 146 H Potassium 3.5 Chloride 109 H Carbon Dioxide 27.2 Anion Gap 10 BUN 45 H Creatinine 1.27 Estimated GFR 56 L POC Glucose 65 L 157 H Random Glucose 44 L* Calcium 8.1 L Phosphorus 2.5 Magnesium 2.3 Total Bilirubin 0.7 AST 99 H ALT 120 H Alkaline Phosphatase 95 Total Protein 6.2 L Albumin 2.2 L 07/07/18 07/07/18 07/07/18 06:11 10:10 11:57 WBC RBC Hgb Hct MCV MCH MCHC RDW Plt Count MPV Prelim Diff (Auto) Neut % (Auto) Lymph % (Auto) [place] % (Auto) Eos % (Auto) Baso % (Auto) Neut # (Auto) Lymph # (Auto) [place] # (Auto) Eos # (Auto) Baso # (Auto) WBC Differential Diff Scan Differential Comment Platelet Estimate Platelet Morphology Sodium Potassium Chloride Carbon Dioxide Anion Gap BUN Creatinine Estimated GFR POC Glucose 124 H 90 105 Random Glucose Calcium Phosphorus Magnesium Total Bilirubin AST ALT Alkaline Phosphatase Total Protein Albumin 07/07/18 07/07/18 16:34 19:30 WBC RBC Hgb Hct MCV MCH MCHC RDW Plt Count MPV Prelim Diff (Auto) Neut % (Auto) Lymph % (Auto) [place] % (Auto) Eos % (Auto) Baso % (Auto) Neut # (Auto) Lymph # (Auto) [place] # (Auto) Eos # (Auto) Baso # (Auto) WBC Differential Diff Scan Differential Comment Platelet Estimate Platelet Morphology Sodium Potassium Chloride Carbon Dioxide Anion Gap BUN Creatinine Estimated GFR POC Glucose 190 H 205 H Random Glucose Calcium Phosphorus Magnesium Total Bilirubin AST ALT Alkaline Phosphatase Total Protein Albumin Microbiology 07/03/18 07:44 Blood - Peripheral Aerobic Blood Culture - Preliminary No growth in 4 days 07/03/18 07:44 Blood - Peripheral Anaerobic Blood Culture - Preliminary No growth in 4 days 07/03/18 07:49 Blood - Peripheral Aerobic Blood Culture - Preliminary No growth in 4 days 07/03/18 07:49 Blood - Peripheral Anaerobic Blood Culture - Preliminary No growth in 4 days - Imaging Impressions Chest X-Ray 07/07/18 00:00 CONCLUSION: 1. Faint inferior right perihilar medial right base airspace process could represent atelectasis or early infiltrate. Left lung is clear. 2. Stable position of life-support tubes. Abdomen X-Ray 07/07/18 08:00 CONCLUSION: Bowel gas pattern suggesting hypodynamic ileus. Decreasing amount of stool in the ascending colon. Assessment and Plan - Plan History Constipation 72-year-old male initially from the [facility] under the hospital with shortness of breath and was intubated due to hypoxemia. Patient was noted to have no bowel movement in 2 days and GI was consulted to assist with any symptoms and his constipation. KUB initially showed some distention in the cecum. Repeat KUB today still shows persistent stool in the ascending colon. Patient's currently being managed on ventilator and is in atrial fibrillation with RVR as well as paced rhythm. NG tube is connected to low intermittent suction, patient has mild sedation on board gastroenterology was consulted to assist with his constipation. Patient has round taut, abdomen with minimal hypoactive bowel sounds in his lower quadrants, no bowel sounds in the upper quadrants. Dependent on patient's response to Dulcolax suppository may need follow-up KUBs in the next 24-48 hours, Plan The GoLYTELY has had its effects the patient's stools appeared to be moving the KUB from this morning shows improvement and the physical examination shows a lot less distended abdomen We will continue with bowel regimen And continue to monitor clinically
[2018-07-08] MEDS ORDERED: Sodium Chlor 0.9% Inj 500 ML IV.SIG SCH (03:00)
[2018-07-08] MEDS: Insulin NovoLOG Aspart Correctional Sugar Inj SQ SCH ×5 (03:48→21:19)
--- NOTE | 2018-07-08 04:03 | XR ---
EXAM DATE: 07/08/2018 3:55 AM EDT AGE/SEX: 72 years / Male INDICATIONS: Abdominal distention. CLINICAL DATA: This is the patient's subsequent encounter. Patient reports that signs and symptoms h ave been present for 1 week and indicates a pain score of Nonresponsive. MEDICAL/SURGICAL HISTORY: Non-responsive. Non-responsive. COMPARISON: C, ABDOMEN 1V KUB, 07/07/2018. . FINDINGS: Cecum remains mildly distended. Otherwise, there is continued decompression of the remaining portion s of the colon. Rectal tube remains stable in position. Nasogastric tube with the tip in the expected location of the gastric antrum/pylorus. No obvious pneumoperitoneum CONCLUSION: 1. Stable, mild distention of what I believe is the cecum. 2. Continued decompression of the remaining portions of the colon. Rectal tube and NG tube remain st able in position Electronically signed by: Alex Dinh MD 07/08/2018 4:01 AM EDT
[2018-07-08 04:54] LABS: Baso % (Auto) 0.2 % (0.0-2.0); Eos # (Auto) 0.1 th/mm3 (0.0-0.4); Eos % (Auto) 0.9 % (0.0-4.0); Hematocrit 30.7 % (39.0-51.0); Hemoglobin 10.1 gm/dL (13.0-17.0); Lymph # (Auto) 1.1 th/mm3 (1.0-4.8); Lymph % (Auto) 17.3 % (9.0-44.0); Mean Corpuscular HGB Conc 32.8 % (32.0-36.0); Mean Corpuscular Hemoglobin 31.3 pg (27.0-34.0); Mean Corpuscular Volume 95.6 fL (80.0-100.0); Mean Platelet Volume 12.8 fL (7.0-11.0); Mono # (Auto) 0.3 th/mm3 (0.0-0.9); Neut # (Auto) 4.9 th/mm3 (1.8-7.7); Neut % (Auto) 77.6 % (16.0-70.0); Platelet Count 58 th/mm3 (150-450); Red Blood Count 3.21 mil/mm3 (4.50-5.90); Red Cell Distribution Width 15.8 % (11.6-17.2); White Blood Count 6.3 th/mm3 (4.0-11.0)
[2018-07-08] MEDS: Baclofen 10 MG Tablet PO SCH ×3 (05:21→21:23)
[2018-07-08 05:27] LABS: Alanine Aminotransferase 115 U/L (12-78); Albumin 1.8 g/dL (3.4-5.0); Alkaline Phosphatase 94 U/L (45-117); Anion Gap 11 meq/L (5-15); Aspartate Aminotransferase 90 U/L (15-37); Blood Urea Nitrogen 32 mg/dL (7-18); Calcium 7.6 mg/dL (8.5-10.1); Carbon Dioxide 22.6 meq/L (21.0-32.0); Chloride 109 meq/L (98-107); Glomerular Filtration Rate 72 mL/min (>89); Glucose,Random 135 mg/dL (74-106); Magnesium 2.1 mg/dL (1.5-2.5); Phosphorus 2.5 mg/dL (2.5-4.9); Potassium 3.6 meq/L (3.5-5.1); Sodium 143 meq/L (136-145); Total Protein 5.5 g/dL (6.4-8.2)
--- NOTE | 2018-07-08 07:38 | P.PNCA ---
Subjective Interval history: intubated, sedated, not following commands Physical Exam Vital signs: Vital Signs 07/07/18 08:00 07/07/18 08:45 07/07/18 08:51 Temperature 99.9 F H Pulse Rate 70 Respiratory Rate 16 16 26 H Blood Pressure 118/58 L Pulse Oximetry 99 100 99 07/07/18 10:00 07/07/18 11:33 07/07/18 12:00 Temperature 99.3 F Pulse Rate 72 70 70 Respiratory Rate 29 H 26 H Blood Pressure 98/57 L Pulse Oximetry 100 100 07/07/18 14:00 07/07/18 14:51 07/07/18 16:00 Temperature 97.7 F Pulse Rate 70 69 Respiratory Rate 21 16 Blood Pressure 96/53 L Pulse Oximetry 100 100 07/07/18 16:17 07/07/18 17:35 07/07/18 18:00 Temperature Pulse Rate 69 70 Respiratory Rate 16 16 Blood Pressure Pulse Oximetry 100 07/07/18 20:00 07/07/18 21:04 07/07/18 21:23 Temperature 96.1 F L Pulse Rate 60 60 60 Respiratory Rate 16 16 Blood Pressure 114/57 L Pulse Oximetry 100 100 07/07/18 23:32 07/08/18 01:08 07/08/18 01:14 Temperature 98.0 F Pulse Rate 60 60 Respiratory Rate 16 16 Blood Pressure 88/53 L Pulse Oximetry 100 100 07/08/18 04:00 07/08/18 04:09 07/08/18 05:46 Temperature 98.0 F Pulse Rate 60 60 60 Respiratory Rate 16 16 Blood Pressure 93/54 L Pulse Oximetry 100 100 Intake & Output 07/07/18 07/08/18 07/08/18 18:59 06:59 18:59 Intake Total 1740 / 1740 400 / 400 Output Total 3000 / 3000 950 / 950 Balance -1260 / -1260 -550 / -550 Weight 66.5 kg Intake: IV 1250 / 1250 Precedex Inj 1,000 MCG In NS 250 / 250 Inj 240 ML @ 0.2 MCG/KG/HR 3.6 mls/hr IV.CONT TITRATE PRN Rx#: [id number] Inj 1,000 ML @ 60 mls/hr IV 1000 / 1000 .CONT .[id number] [facility] Rx#:[id number] Oral 0 / 0 Tube Feeding 0 / 0 Tube Irrigant 0 / 0 Water Bolus Amount 400 / 400 400 / 400 Other 90 / 90 0 / 0 Output: Urine 0 / 0 Stool 1400 / 1400 500 / 500 Urine Amount (Catheter) 1450 / 1450 450 / 450 3-way Urethral 1450 / 1450 450 / 450 Gastric Drainage 150 / 150 0 / 0 Left Nare Nasogastric Tube 150 / 150 0 / 0 Other: Date of Last Bowel Movement 07/07/18 07/07/18 # Bowel Movements 0 - Urinary Catheter Management Indwelling Urethral Catheter Cath placed during this visit: yes Reason for continuing: Other continuation reason Insertion date: 06/20/18 Insertion time: 21:24 3-way Urethral Cath placed during this visit: yes Reason for continuing: Acute urinary retention Insertion date: 07/06/18 Insertion time: 18:00 Assessment and Plan - Assessment (1) Cardiomyopathy Code(s): I42.9 - Cardiomyopathy, unspecified Status: Acute (2) Cardiomyopathy Code(s): I42.9 - Cardiomyopathy, unspecified Status: Acute (3) PVD (peripheral vascular disease) Code(s): I73.9 - Peripheral vascular disease, unspecified Status: Acute (4) PVD (peripheral vascular disease) Code(s): I73.9 - Peripheral vascular disease, unspecified Status: Acute (5) Tobacco abuse Code(s): Z72.0 - Tobacco use Status: Acute (6) Respiratory failure Code(s): J96.90 - Respiratory failure, unspecified, unspecified whether with hypoxia or hypercapnia Status: Acute (7) Non-ST elevated myocardial infarction (non-STEMI) Code(s): I21.4 - Non-ST elevation (NSTEMI) myocardial infarction Status: Acute (8) Pulmonary edema cardiac cause Code(s): I50.1 - Left ventricular failure, unspecified Status: Acute - Plan 1.) NICM - end stage, euvolemic, refuses in state transfer, requesting transfer to [facility], d/w Dr Solis; beta ana and hellen held due to hypotension, diuresing to optimize potential extubation, he has hypernatremia 2.) CAD - nonobstructive, continue aspirin, pravachol 3.) Encephalopathy - moderate per EEG on sedation, neuro following 4.) d/w case with at the bedside 07/04/18 5.) Respiratory failure - he is euvolemic, appears to be due to pulmonary and/ or encephalopathic etilology, remains intubated, prolonged failure to wean from vent, his is considering trach placement 6.) indicates she wants peg and trach, family not at bedside 07/08/18 (6) Respiratory failure Qualifiers: Chronicity: acute Respiratory failure complication: hypoxia Qualified Code(s ): J96.01 - Acute respiratory failure with hypoxia
[2018-07-08 07:58] LABS: Platelet Morphology Normal (Normal)
[2018-07-08] MEDS: Hypromellose 0.3% Opth Gel 10 GM Bottle EACH EYE SCH ×2 (08:08→21:20)
[2018-07-08] MEDS: Brimonidine 0.15% Opth Drops 5 ML Bottle EACH EYE SCH ×2 (08:08→21:19)
[2018-07-08] MEDS: Metoprolol Tartrate 25 MG Tablet PO SCH ×3 (08:09→21:20)
[2018-07-08] MEDS: Senna/Docusate Sodium 8.6/50 MG Tablet PO SCH ×2 (08:09→21:21)
[2018-07-08] MEDS: MethylPREDNISolone Sod Succinate Inj 40 MG/ML Vial IV.PUSH SCH (08:10)
[2018-07-08] MEDS: QUEtiapine 25 MG Tablet NG/OG SCH ×2 (08:10→11:34)
[2018-07-08] MEDS: Bisacodyl 10 MG Supp RECTAL SCH (08:15)
[2018-07-08] MEDS: Enoxaparin Inj 40 MG/0.4 ML Syringe SQ SCH (08:15)
--- NOTE | 2018-07-08 09:03 | P.PNPL ---
Subjective Interval history: Patient remains intubated on CPAP with PS 10, PEEP;5 and FIO2 35% on Precedex drip. Physical Exam Vital signs: Vital Signs 07/07/18 10:00 07/07/18 11:33 07/07/18 12:00 Temperature 99.3 F Pulse Rate 72 70 70 Respiratory Rate 29 H 26 H Blood Pressure 98/57 L Pulse Oximetry 100 100 07/07/18 14:00 07/07/18 14:51 07/07/18 16:00 Temperature 97.7 F Pulse Rate 70 69 Respiratory Rate 21 16 Blood Pressure 96/53 L Pulse Oximetry 100 100 07/07/18 16:17 07/07/18 17:35 07/07/18 18:00 Temperature Pulse Rate 69 70 Respiratory Rate 16 16 Blood Pressure Pulse Oximetry 100 07/07/18 20:00 07/07/18 21:04 07/07/18 21:23 Temperature 96.1 F L Pulse Rate 60 60 60 Respiratory Rate 16 16 Blood Pressure 114/57 L Pulse Oximetry 100 100 07/07/18 23:32 07/08/18 01:08 07/08/18 01:14 Temperature 98.0 F Pulse Rate 60 60 Respiratory Rate 16 16 Blood Pressure 88/53 L Pulse Oximetry 100 100 07/08/18 04:00 07/08/18 04:09 07/08/18 05:46 Temperature 98.0 F Pulse Rate 60 60 60 Respiratory Rate 16 16 Blood Pressure 93/54 L Pulse Oximetry 100 100 07/08/18 08:22 Temperature Pulse Rate Respiratory Rate 8 L Blood Pressure Pulse Oximetry 100 Intake & Output 07/07/18 07/08/18 07/08/18 18:59 06:59 18:59 Intake Total 1740 / 1740 400 / 400 Output Total 3000 / 3000 950 / 950 Balance -1260 / -1260 -550 / -550 Weight 66.5 kg Intake: IV 1250 / 1250 Precedex Inj 1,000 MCG In NS 250 / 250 Inj 240 ML @ 0.2 MCG/KG/HR 3.6 mls/hr IV.CONT TITRATE PRN Rx#: [id number] D5W Inj 1,000 ML @ 60 mls/hr IV 1000 / 1000 .CONT .[id number] [facility] Rx#:[id number] Oral 0 / 0 Tube Feeding 0 / 0 Tube Irrigant 0 / 0 Water Bolus Amount 400 / 400 400 / 400 Other 90 / 90 0 / 0 Output: Urine 0 / 0 Stool 1400 / 1400 500 / 500 Urine Amount (Catheter) 1450 / 1450 450 / 450 3-way Urethral 1450 / 1450 450 / 450 Gastric Drainage 150 / 150 0 / 0 Left Nare Nasogastric Tube 150 / 150 0 / 0 Other: Date of Last Bowel Movement 07/07/18 07/07/18 # Bowel Movements 0 - Constitutional no acute distress - Routine HEENT Exam Head: Present: normocephalic, atraumatic Eye: Present: EOMI, PERRL, normal accommodation, conjunctivae pink - Routine Neck Exam Present: supple, full ROM, trachea midline - Routine Respiratory Exam Present: CTA bilaterally - Routine Cardiovascular Exam Present: RRR, S1, S2 - Routine Abdominal Exam Present: soft, normoactive bowel sounds - Routine Extremities Exam Present: full ROM, pulses intact - Routine Skin Exam Present: intact - Routine Neurological Exam Present: alert - Urinary Catheter Management Indwelling Urethral Catheter Cath placed during this visit: yes Reason for continuing: Other continuation reason Insertion date: 06/20/18 Insertion time: 21:24 3-way Urethral Cath placed during this visit: yes Reason for continuing: Acute urinary retention Insertion date: 07/06/18 Insertion time: 18:00 Assessment and Plan - Plan VDRF COPD Acute decompensated CHF - systolic and diastolic EF 20% Staph aureus pneumonia Dilated cardiomyopathy Atrial fibrillation Non-STEMI FIDE -improving History of pacemaker/defibrillator placement Anemia, thrombocytopenia Plan Wean off Precedex drip Continue with vent support keep sats >02% Bronchodilators, ICU vent bundle. Tolerating CPAP trials possible extubation today On Solumederol 40mg IV daily s/p abx ( Cefepime, Zyvox)monitor for signs of infections ( Fever, WBC) 07/03 Sputum cx: Staph Aureus, Kleb Follow up on sputum cx from 07/07 CXR 07/07-. Faint inferior right perihilar medial right base airspace process could represent atelectasis or early infiltrate. Left lung is clear. GI/DVT prophylaxis Continue treatment plan
--- NOTE | 2018-07-08 10:45 | P.PNCC ---
Subjective Subjective Remarks/Hospital Course: Elderly male with a medical history significant for viral cardiomyopathy who was traveling on vacation from [place] with his family in [place] and today developed chest pain with worsening shortness of breath for which EMS was called by family. Patient was extremely short of breath on the arrival and hypoxic and they proceeded with endotracheal intubation and patient was transferred to the ER. In the ER it was noted that his cuff was leaking hence ET tube was exchanged by ER physician and patient was placed on mechanical ventilation. 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 He reportedly does not take any diuretic. Chest x-ray done in the ER revealed pulmonary edema. EKG revealed atrial fibrillation. Patient was accepted for admission by critical care medicine service. When I evaluated him in the ER he was sedated with propofol, orally intubated on mechanical ventilation. History was obtained by reviewing records, discussion with family as well as ER physician. 06/21: Afebrile. Hemodynamically stable. Troponin bumped 14. Started on heparin drip. Sedated with propofol and fentanyl drips. Arousable the ventilator and is very agitated will attempt to withdrawal tube. PEEP down to 5. 06/22: Sedated, orally intubated on mechanical ventilation. Gets agitated unenlightening sedation so Precedex added in addition to propofol and fentanyl. CPAP trials ongoing to decide extubation. Cardiac cath postponed by Dr. Noonan in view of questionable neurologic status. 06/23: Patient was extubated yesterday however was requiring significant amount of O2 post extubation with a facemask as well as nasal cannula. This morning around 4 AM due to increased work of breathing and hypoxia he was reintubated by Dr. Lino and placed back on mechanical ventilation. Currently he is sedated , orally intubated on mechanical ventilation. Postintubation chest x-ray shows ET tube in appropriate position and pulmonary edema pattern with perihilar infiltrates bilaterally. 06/24: Remains sedated, orally intubated on mechanical ventilation. 06/25: Remains sedated, orally intubated on mechanical ventilation. 06/26: Remains sedated, orally intubated on mechanical ventilation. Pacer backup rate increased to 60/min yesterday due to hypotension. Awaiting cardiac catheterization. 06/27: Sedated, orally intubated on mechanical ventilation. Underwent cardiac catheterization which revealed nonobstructive CAD. Patient has nonischemic dilated cardiomyopathy per discussion with Dr. Noonan. Initiated dobutamine 2.5 mics per KG per minute on 06/26. Filling pressures not elevated per Dr. Noonan on cardiac cath. 06/28: Sedated, arousable, orally intubated on mechanical ventilation. IV hydrocortisone switched to Solu-Medrol yesterday. Pulmonary consult with Dr. Villegas as patient appears to have significant COPD in addition to cardiomyopathy. Remains on dobutamine at 1.5 mics per KG per minute. Diuresing well. Does not appear to be fluid overloaded at this time. Daily CPAP trials ongoing. 06/29: Remains intubated sedated with Precedex and fentanyl. Remains on dobutamine. Patient is able to track and follow some commands. CXR appears clear today 06/30 Remains intubated and on low dose dobutamine 1.25 mcg/kg/min. Will place on sedation vacation and CPAP trial and plan for trial of extubation as tolerated. Has continued diuresis and CXR is now clear of edema. 07/01: 07/01 Tolerates CPAP. Mental status currently seems limiting factor to extubation but there is some improvement compared with yesterday. Now on seroquel, off fentanyl drip ( states opioids have historically caused delirium for him). On precedex as needed, weaning down. Yesterday he was staring ahead, roving head movements, wild-eyed expressions as if hallucinating , very weak in all extremities. Today he does NOT follow commands but by this evening he does track, moves extremities vigorously and purposefully, strong cough, lifts head up off bed. Appears he will soon be appropriate for trial of extubation but will wait in effort to optimize to full ability, as failure of extubation trial will necessitate trach (currently day #9 following reintubation) is aware. 07/02: No events over the night. The patient tolerated CPAP this a.m. but he became increasingly agitated and tachypneic, currently now back on full support. Sedation is achieved with dexmedetomidine at 1. T-max of 99.1. I/O 4575/3200. 07/03: Episode of agitation over the night requiring increasing Precedex and dose of Ativan. This a.m. patient on dexmedetomidine at 1.4 sedated arousable, not following commands. T-max of 100.4. Urine output of 1400 mL's over the last 24 hours. 07/04: No events over the night. Patient tolerated CPAP yesterday for approximately 6 hours however mental status remains poor. T-max of 100.4 yesterday morning, afebrile since then. Diuresed great over the last 24 hours, 4625 mL's since yesterday, almost 2.5 L negative fluid balance. CT abdomen and pelvis not yet done. 07/05: No events over the night. CT abdomen and pelvis report reviewed, cecum dilation up to 10 cm. Tube feeds were stopped and NG tube was placed on low intermittent wall suction. Patient remains altered with episodes of severe agitation. Currently on Precedex at 0.8. T-max of 100.5 yesterday at noon, afebrile since then. Urine output remains adequate. I/O 3035/1850. 07/06: Patient did well over the night. T-max of 99.8. Hypotension resolved yesterday after fluid bolus administration. I/O 2170/2475. I had long discussion yesterday with the and the family is leaning towards trach. This morning patient on Precedex at 1.5, fully awake, intermittently following some commands. 07/07: Episode of hypoglycemia this morning down to 44. Dextrose given. Patient remains awake, intermittently follows simple commands, on dexmedetomidine at 1.5. Patient remains afebrile, with a T-max of 98.4. I/O 1230/2550. NGT remains at low intermittent wall suction and after GoLYTELY rectal tube was placed on suction with significant amount of drainage. Subjective 07/08: Currently afebrile. Positive BM overnight. Currently on PST trial. NG tube to lower intermittent wall suction and rectal tube to suction. Objective Vital Signs / I&O: Vital Signs 07/07/18 11:33 07/07/18 12:00 07/07/18 14:00 Temperature 99.3 F Pulse Rate 70 70 70 Respiratory Rate 29 H 26 H Blood Pressure 98/57 L Pulse Oximetry 100 100 07/07/18 14:51 07/07/18 16:00 07/07/18 16:17 Temperature 97.7 F Pulse Rate 69 69 Respiratory Rate 21 16 16 Blood Pressure 96/53 L Pulse Oximetry 100 100 08/25/18 17:35 07/07/18 18:00 07/07/18 20:00 Temperature 96.1 F L Pulse Rate 70 60 Respiratory Rate 16 16 Blood Pressure 114/57 L Pulse Oximetry 100 100 07/07/18 21:04 07/07/18 21:23 07/07/18 23:32 Temperature 98.0 F Pulse Rate 60 60 60 Respiratory Rate 16 16 Blood Pressure 88/53 L Pulse Oximetry 100 100 07/08/18 01:08 07/08/18 01:14 07/08/18 04:00 Temperature 98.0 F Pulse Rate 60 60 Respiratory Rate 16 16 Blood Pressure 93/54 L Pulse Oximetry 100 100 07/08/18 04:09 07/08/18 05:46 07/08/18 08:00 Temperature 98.2 F Pulse Rate 60 60 60 Respiratory Rate 16 19 Blood Pressure 116/58 L Pulse Oximetry 100 100 07/08/18 08:22 Temperature Pulse Rate Respiratory Rate 8 L Blood Pressure Pulse Oximetry 100 Intake & Output 07/07/18 07/08/18 07/08/18 18:59 06:59 18:59 Intake Total 1740 / 1740 400 / 400 Output Total 3000 / 3000 950 / 950 Balance -1260 / -1260 -550 / -550 Weight 66.5 kg Intake: IV 1250 / 1250 Precedex Inj 1,000 MCG In NS 250 / 250 Inj 240 ML @ 0.2 MCG/KG/HR 3.6 mls/hr IV.CONT TITRATE PRN Rx#: [id number] Inj 1,000 ML @ 60 mls/hr IV 1000 / 1000 .CONT .[id number] [facility] Rx#:[id number] Oral 0 / 0 Tube Feeding 0 / 0 Tube Irrigant 0 / 0 Water Bolus Amount 400 / 400 400 / 400 Other 90 / 90 0 / 0 Output: Urine 0 / 0 Stool 1400 / 1400 500 / 500 Urine Amount (Catheter) 1450 / 1450 450 / 450 3-way Urethral 1450 / 1450 450 / 450 Gastric Drainage 150 / 150 0 / 0 Left Nare Nasogastric Tube 150 / 150 0 / 0 Other: Date of Last Bowel Movement 07/07/18 07/07/18 07/07/18 # Bowel Movements 0 Result Diagrams: 07/08/18 04:21 07/08/18 04:21 Other Results: Microbiology 07/07/18 18:26 Sputum - Endotracheal Gram Stain - Final 07/07/18 18:26 Sputum - Endotracheal Sputum Culture - Preliminary Staphylococcus aureus gram negative rods 07/03/18 07:44 Blood - Peripheral Aerobic Blood Culture - Preliminary No growth in 4 days 07/03/18 07:44 Blood - Peripheral Anaerobic Blood Culture - Preliminary No growth in 4 days 07/03/18 07:49 Blood - Peripheral Aerobic Blood Culture - Preliminary No growth in 4 days 07/03/18 07:49 Blood - Peripheral Anaerobic Blood Culture - Preliminary No growth in 4 days 07/03/18 12:10 Sputum - Endotracheal Gram Stain - Final 07/03/18 12:10 Sputum - Endotracheal Sputum Culture - Final Staphylococcus aureus Klebsiella pneumoniae 06/28/18 10:09 Blood - Peripheral Aerobic Blood Culture - Final No growth in 5 days 06/28/18 10:09 Blood - Peripheral Anaerobic Blood Culture - Final No growth in 5 days 06/28/18 10:03 Blood - Peripheral Aerobic Blood Culture - Final No growth in 5 days 06/28/18 10:03 Blood - Peripheral Anaerobic Blood Culture - Final No growth in 5 days 06/28/18 10:45 Sputum - Endotracheal Gram Stain - Final 06/28/18 10:45 Sputum - Endotracheal Sputum Culture - Final Staphylococcus aureus 06/23/18 14:31 Blood - Peripheral Aerobic Blood Culture - Final No growth in 5 days 06/23/18 14:31 Blood - Peripheral Anaerobic Blood Culture - Final No growth in 5 days 06/23/18 11:50 Blood - Peripheral Aerobic Blood Culture - Final No growth in 5 days 06/23/18 11:50 Blood - Peripheral Anaerobic Blood Culture - Final No growth in 5 days 06/20/18 20:50 Blood - Peripheral Aerobic Blood Culture - Final No growth in 5 days 06/20/18 20:50 Blood - Peripheral Anaerobic Blood Culture - Final No growth in 5 days 06/21/18 02:10 Sputum - Endotracheal Gram Stain - Final 06/21/18 02:10 Sputum - Endotracheal Sputum Culture - Final Staphylococcus aureus 06/20/18 21:15 Catheterized Urine Urine Culture - Final No growth in 48 hours 06/20/18 21:15 Nasal Wash Influenza Types A,B Antigen - Final Negative for FLU A and B antigen Infection due to influenza A or B cannot be ruled out since the antigen present in the sample may be below the detection limit of the test. Imaging: ITS Impressions Abdomen/Bladder Ultrasound 06/21/18 00:00 CONCLUSION: 1. Increased echogenicity of both kidneys typical of chronic parenchymal disease. 2. No evidence of acute obstructive uropathy. 3. Bilateral benign appearing renal cysts. Abdomen/Pelvis CT 07/04/18 00:00 CONCLUSION: The bulging in the right lower quadrant is related to distention of the cecum. Head CT 07/04/18 00:00 CONCLUSION: 1. No acute intracranial abnormality is identified. Stable chronic findings include generalized atrophy and chronic periventricular white matter change. 2. Increased fluid in the right mastoid air cells and mild but new mucoperiosteal thickening in the ethmoid and sphenoid sinus. . Chest X-Ray 07/07/18 00:00 CONCLUSION: 1. Faint inferior right perihilar medial right base airspace process could represent atelectasis or early infiltrate. Left lung is clear. 2. Stable position of life-support tubes. Abdomen X-Ray 07/08/18 00:00 CONCLUSION: 1. Stable, mild distention of what I believe is the cecum. 2. Continued decompression of the remaining portions of the colon. Rectal tube and NG tube remain stable in position Objective Remarks: GENERAL: 72-year-old gentleman, intubated, awake, ill-appearing. HEENT: Pupils equal, and reactive. Sclerae are anicteric. Neck is supple without rigidity. + NGT. Orally intubated. Neck veins are not distended. CARDIOVASCULAR: Regular S1 and S2, no murmurs. Permanent pacemaker over the left chest. RESPIRATORY: Clear breath sounds bilateral. No wheezes. Good air entry. GASTROINTESTINAL: Abdomen is soft, appears non-tender, asymmetric distention over the right lower quadrant -improved. Bowel sounds are improved. MUSCULOSKELETAL: Warm, extremities with trace bilateral lower extremity edema. No clubbing. NEUROLOGICAL: Intubated, awake, intermittently following commands, shows thumbs up over both upper extremities and he is trying to move both lower extremities however he remains weak. Assessment and Plan - Assessment and Plan Plan: Assessment: Acute respiratory failure on mechanical ventilation -unchanged, on 0.35 FiO2. Yesterday he tolerated CPAP for approximately 6 hours. Acute decompensated CHF - systolic and diastolic EF 20% -appears euvolemic Staph aureus pneumonia -afebrile over the last 48 hours Dilated cardiomyopathy Atrial fibrillation -rate controlled Non-STEMI FIDE -creatinine normalizing, urine output remains adequate Hypernatremia -resolved Thrombocytopenia -unchanged Adynamic ileus - ?[place] -distention is improved DM -episode of hypoglycemia this a.m. B/L carotid Stenosis 40-59% Erectile Dysfunction PAD LBBB- chronic Hypertension COPD History of pacemaker/defibrillator placement Hyperlipidemia Glaucoma Normocytic anemia Elevated transaminases Plan: Neuro: -Seroquel decreased to 25 bid on 07/04 -Precedex drip, maintain RASS -1 to 0 -Follow neuro status, patient definitely the most awake I have seen him so far -Baclofen decreased to 10 mg 3 times daily/home medications on 07/04 -Gabapentin at 300 mg every 8 hourly has been on hold. Continue brimonidine 0.15% 2 times daily Cardiovascular: -Non-ST elevation CO. cardiology Dr. Noonan following for decompensated CHF, history of cardiomyopathy and positive troponin. -A. fib appears rate controlled. Continue aspirin 162 mg daily. Low-dose beta- ana metoprolol tartrate 6.25 mg twice daily. -No ENA inhibitor secondary to acute kidney injury. Off heparin GTT. Holding cilostazol 50 mg twice daily. Simvastatin 20 mg daily/40 mg pravastatin substituted. -Cardiac cath per Dr. Noonan. Angiographically mild to moderate 3-vessel coronary artery disease. EF 20%. -Gentle diuresis with furosemide 40 mg daily Pulmonary: -On mechanical ventilation, PRVC. No auto PEEP, patient is synchronized with the ventilator. PIP is 21. -Attempt CPAP trial today -Albuterol/ipratropium every 6 hours with every 4 hours as needed dyspnea. -Vent bundle -Continue methylprednisolone succinate 40 mg daily -Pulm consult Dr. Shayy Villegas following for COPD -If patient fails extubation family is agreeable for tracheostomy GI/liver: -Tube feeds Glucerna 1.5 and 55 mL/h -stopped due to ileus -NG tube placed to low intermittent wall suction -Continue n.p.o. -Daily KUB -GI consult appreciated Continue with twice daily docusate sodium/senna, Levaquin glycol and lactulose. Status post GoLYTELY enemas FEN/Renal/: -Continue D5W at 60 mL's per hour -Continue free water to 200 every 6 hours -Strict intake output, monitor and replete electrolytes, follow BUN/creatinine. ID: -Completed 14 days of cefepime, stopped on 07/04 -Sputum cultures 07/03 and 07/07 growing MSSA/Klebsiella. Stopped Zyvox on 06/26 -Repeat sputum culture sent on 07/03 growing staph aureus and gram-negative bacilli. In the absence of fever and leukocytosis we will hold antibiotics for now. If any signs of the compensation of recurrent fever we will start broad- spectrum antibiotics Heme: -Thrombocytopenia Dr. Campa following. HIT screen negative. -Heparin gtt. discontinued following cardiac cath. Continue Lovenox 40 mg subcutaneous daily DVT prophylaxis. -Worsening, no evidence of bleed Endocrine: -Holding metformin thousand milligrams twice daily, sitagliptin 100 mg daily sliding scale insulin with aspart insulin high protocol for glycemic control. -Started stress dose steroids with hydrocortisone 50 mill grams IV every 6 hourly on 06/23 due to borderline blood pressures and recent prednisone use -Switched to Solu-Medrol 80 mg IV every 12 hourly on 06/27. Now on tapering dose of Solu-Medrol 40 mg IV every 12 hours. -In the setting of hypoglycemia on 07/07 stop detemir 10 units subcu every 12 hours. Continue insulin sliding scale as needed Prophylaxis: Lansoprazole/SCDs. Continue enoxaparin 40 mg subcutaneous daily for DVT prophylaxis. at bedside. Level 2 follow-up.
[2018-07-08] MEDS: Dextrose 5% in Water Inj 1,000 ML IV.CONT SCH (11:33)
--- NOTE | 2018-07-08 19:51 | P.PNGI ---
Subjective Interval history: Intubated alert at bedside seems to be somewhat agitated and wanting to get out of bed but has continued to pass stools and abdomen still appears to be soft Physical Exam Vital signs: Vital Signs 07/07/18 20:00 07/07/18 21:04 07/07/18 21:23 Temperature 96.1 F L Pulse Rate 60 60 60 Respiratory Rate 16 16 Blood Pressure 114/57 L Pulse Oximetry 100 100 07/07/18 23:32 07/08/18 01:08 07/08/18 01:14 Temperature 98.0 F Pulse Rate 60 60 Respiratory Rate 16 16 Blood Pressure 88/53 L Pulse Oximetry 100 100 07/08/18 04:00 07/08/18 04:09 07/08/18 05:46 Temperature 98.0 F Pulse Rate 60 60 60 Respiratory Rate 16 16 Blood Pressure 93/54 L Pulse Oximetry 100 100 07/08/18 08:00 07/08/18 08:22 07/08/18 10:00 Temperature 98.2 F Pulse Rate 60 70 Respiratory Rate 19 8 L Blood Pressure 116/58 L Pulse Oximetry 100 100 07/08/18 12:00 07/08/18 12:26 07/08/18 14:00 Temperature 98.5 F Pulse Rate 76 83 Respiratory Rate 18 28 H Blood Pressure 114/55 L Pulse Oximetry 100 100 07/08/18 15:00 07/08/18 16:00 07/08/18 16:49 Temperature 98.4 F Pulse Rate 89 91 H Respiratory Rate 18 18 18 Blood Pressure 121/66 Pulse Oximetry 100 97 07/08/18 18:00 Temperature Pulse Rate 85 Respiratory Rate Blood Pressure Pulse Oximetry Intake & Output 07/08/18 07/08/18 07/09/18 06:59 18:59 06:59 Intake Total 400 / 400 1000 / 1000 Output Total 950 / 950 1750 / 1750 Balance -550 / -550 -750 / -750 Weight 66.5 kg Intake: IV 1000 / 1000 D5W Inj 1,000 ML @ 60 mls/hr IV 1000 / 1000 .CONT .[id number] [facility] Rx#:[id number] Oral 0 / 0 Tube Feeding 0 / 0 Tube Irrigant 0 / 0 Water Bolus Amount 400 / 400 Other 0 / 0 Output: Urine 0 / 0 1200 / 1200 Stool 500 / 500 300 / 300 Urine Amount (Catheter) 450 / 450 3-way Urethral 450 / 450 Gastric Drainage 0 / 0 250 / 250 Left Nare Nasogastric Tube 0 / 0 250 / 250 Other: Date of Last Bowel Movement 07/07/18 07/07/18 # Bowel Movements 0 - Constitutional no acute distress - Routine HEENT Exam Head: Present: normocephalic Eye: Present: EOMI ENT: Present: mucous membranes moist - Routine Neck Exam Present: supple - Routine Respiratory Exam Present: CTA bilaterally - Routine Cardiovascular Exam Present: RRR - Routine Abdominal Exam Present: soft, normoactive bowel sounds - Routine Extremities Exam Absent: cyanosis, clubbing - Urinary Catheter Management Indwelling Urethral Catheter Cath placed during this visit: yes Reason for continuing: Other continuation reason Insertion date: 06/20/18 Insertion time: 21:24 3-way Urethral Cath placed during this visit: yes Reason for continuing: Acute urinary retention Insertion date: 07/06/18 Insertion time: 18:00 Results - Labs CBC & Chem 7: 07/08/18 04:21 07/08/18 04:21 Laboratory Results - last 24 hr 07/07/18 07/08/18 07/08/18 23:20 03:46 04:21 WBC RBC Hgb Hct MCV MCH MCHC RDW Plt Count MPV Prelim Diff (Auto) Neut % (Auto) Lymph % (Auto) [place] % (Auto) Eos % (Auto) Baso % (Auto) Neut # (Auto) Lymph # (Auto) [place] # (Auto) Eos # (Auto) Baso # (Auto) WBC Differential Diff Scan Differential Comment Platelet Estimate Platelet Morphology Sodium 143 Potassium 3.6 Chloride 109 H Carbon Dioxide 22.6 Anion Gap 11 BUN 32 H Creatinine 1.02 Estimated GFR 72 L POC Glucose 162 H 144 H Random Glucose 135 H Calcium 7.6 L Phosphorus 2.5 Magnesium 2.1 Total Bilirubin 0.6 AST 90 H ALT 115 H Alkaline Phosphatase 94 Total Protein 5.5 L D Albumin 1.8 L 07/08/18 07/08/18 07/08/18 04:21 07:49 13:58 WBC 6.3 RBC 3.21 L Hgb 10.1 L Hct 30.7 L MCV 95.6 MCH 31.3 MCHC 32.8 RDW 15.8 Plt Count 58 L MPV 12.8 H Prelim Diff (Auto) Slide review pending Neut % (Auto) 77.6 H Lymph % (Auto) 17.3 [place] % (Auto) 4.0 Eos % (Auto) 0.9 Baso % (Auto) 0.2 Neut # (Auto) 4.9 Lymph # (Auto) 1.1 [place] # (Auto) 0.3 Eos # (Auto) 0.1 Baso # (Auto) 0.0 WBC Differential . Diff Scan Auto diff confirmed Differential Comment . Platelet Estimate Low L Platelet Morphology Normal Sodium Potassium Chloride Carbon Dioxide Anion Gap BUN Creatinine Estimated GFR POC Glucose 201 H 331 H Random Glucose Calcium Phosphorus Magnesium Total Bilirubin AST ALT Alkaline Phosphatase Total Protein Albumin 07/08/18 17:25 WBC RBC Hgb Hct MCV MCH MCHC RDW Plt Count MPV Prelim Diff (Auto) Neut % (Auto) Lymph % (Auto) [place] % (Auto) Eos % (Auto) Baso % (Auto) Neut # (Auto) Lymph # (Auto) [place] # (Auto) Eos # (Auto) Baso # (Auto) WBC Differential Diff Scan Differential Comment Platelet Estimate Platelet Morphology Sodium Potassium Chloride Carbon Dioxide Anion Gap BUN Creatinine Estimated GFR POC Glucose 182 H Random Glucose Calcium Phosphorus Magnesium Total Bilirubin AST ALT Alkaline Phosphatase Total Protein Albumin Microbiology 07/03/18 07:44 Blood - Peripheral Aerobic Blood Culture - Final No growth in 5 days 07/03/18 07:44 Blood - Peripheral Anaerobic Blood Culture - Final No growth in 5 days 07/03/18 07:49 Blood - Peripheral Aerobic Blood Culture - Final No growth in 5 days 07/03/18 07:49 Blood - Peripheral Anaerobic Blood Culture - Final No growth in 5 days 07/07/18 18:26 Sputum - Endotracheal Gram Stain - Final 07/07/18 18:26 Sputum - Endotracheal Sputum Culture - Preliminary Staphylococcus aureus gram negative rods - Imaging Impressions Abdomen X-Ray 07/08/18 00:00 CONCLUSION: 1. Stable, mild distention of what I believe is the cecum. 2. Continued decompression of the remaining portions of the colon. Rectal tube and NG tube remain stable in position Assessment and Plan - Plan History Constipation 72-year-old male initially from the [facility] under the hospital with shortness of breath and was intubated due to hypoxemia. Patient was noted to have no bowel movement in 2 days and GI was consulted to assist with any symptoms and his constipation. KUB initially showed some distention in the cecum. Repeat KUB today still shows persistent stool in the ascending colon. Patient's currently being managed on ventilator and is in atrial fibrillation with RVR as well as paced rhythm. NG tube is connected to low intermittent suction, patient has mild sedation on board gastroenterology was consulted to assist with his constipation. Patient has round taut, abdomen with minimal hypoactive bowel sounds in his lower quadrants, no bowel sounds in the upper quadrants. Dependent on patient's response to Dulcolax suppository may need follow-up KUBs in the next 24-48 hours, Plan The GoLYTELY has had its effects physical examination shows a less distended abdomen although KUB still shows mild dilation of the cecum but not to the same level as before We will continue with bowel regimen And continue to monitor clinically
[2018-07-09] MEDS: Insulin NovoLOG Aspart Correctional Sugar Inj SQ SCH ×7 (00:20→23:48)
[2018-07-09] MEDS: Dexmedetomidine Inj 1,000 MCG in Sodium Chlor 0.9% Inj 240 ML IV.CONT PRN (01:30)
[2018-07-09] MEDS: Dextrose 5% in Water Inj 1,000 ML IV.CONT SCH (03:24)
[2018-07-09 03:59] LABS: Baso % (Auto) 0.6 % (0.0-2.0); Eos % (Auto) 0.7 % (0.0-4.0); Hematocrit 28.1 % (39.0-51.0); Hemoglobin 9.5 gm/dL (13.0-17.0); Lymph # (Auto) 0.8 th/mm3 (1.0-4.8); Lymph % (Auto) 11.4 % (9.0-44.0); Mean Corpuscular HGB Conc 33.8 % (32.0-36.0); Mean Corpuscular Hemoglobin 31.4 pg (27.0-34.0); Mean Platelet Volume 11.1 fL (7.0-11.0); Mono # (Auto) 0.2 th/mm3 (0.0-0.9); Mono % (Auto) 2.5 % (0.0-8.0); Neut # (Auto) 5.7 th/mm3 (1.8-7.7); Neut % (Auto) 84.8 % (16.0-70.0); Platelet Count 56 th/mm3 (150-450); Red Blood Count 3.03 mil/mm3 (4.50-5.90); Red Cell Distribution Width 15.6 % (11.6-17.2); White Blood Count 6.7 th/mm3 (4.0-11.0)
[2018-07-09 04:15] LABS: Alanine Aminotransferase 103 U/L (12-78); Anion Gap 12 meq/L (5-15); Aspartate Aminotransferase 71 U/L (15-37); Blood Urea Nitrogen 24 mg/dL (7-18); Calcium 7.7 mg/dL (8.5-10.1); Chloride 105 meq/L (98-107); Glomerular Filtration Rate 71 mL/min (>89); Glucose,Random 208 mg/dL (74-106); Magnesium 1.9 mg/dL (1.5-2.5); Phosphorus 2.3 mg/dL (2.5-4.9); Sodium 140 meq/L (136-145)
[2018-07-09 04:17] LABS: Alkaline Phosphatase 91 U/L (45-117); Total Protein 5.6 g/dL (6.4-8.2)
--- NOTE | 2018-07-09 04:32 | XR ---
EXAM DATE: 07/09/2018 4:27 AM EDT AGE/SEX: 72 years / Male INDICATIONS: Shortness of breath, possible pulmonary disease. CLINICAL DATA: This is the patient's subsequent encounter. Patient reports that signs and symptoms h ave been present for 1 week and indicates a pain score of Nonresponsive. MEDICAL/SURGICAL HISTORY: Non-responsive. Non-responsive. COMPARISON: C, CHEST 1V SINGLE AP, 07/07/2018. . FINDINGS: Mild patchy airspace opacities are seen of both bases, not significantly changed. No pleural effusion . No pneumothorax. Heart size stable, within normal limits. Cardiac pacer/defibrillator again noted. Endotracheal tube tip is approximately 4 cm above the [place]. There is a nasogastric tube coursing in to the stomach. CONCLUSION: No significant change mild patchy consolidation of both bases. Electronically signed by: Michael Rosario MD 07/09/2018 4:31 AM EDT
--- NOTE | 2018-07-09 04:35 | XR ---
EXAM DATE: 07/09/2018 4:26 AM EDT AGE/SEX: 72 years / Male INDICATIONS: Abdominal distention follow-up. CLINICAL DATA: This is the patient's subsequent encounter. Patient reports that signs and symptoms h ave been present for 1 week and indicates a pain score of Nonresponsive. MEDICAL/SURGICAL HISTORY: Non-responsive. Non-responsive. [place] [facility] [place]. [facility] [place] 1[place]UB[place]. . FINDINGS: There is persistent distention of the cecum, not significantly changed. No other viscus distention s een. No evidence of free air. Rectal tube and nasogastric tube again noted. Nasogastric tube tip is in the distal stomach. CONCLUSION: Persistent distention of the cecum not significantly changed. Electronically signed by: Michael Rosario MD 07/09/2018 4:33 AM EDT
[2018-07-09 06:00] LABS: Ovalocytes 1+; Platelet Morphology Normal (Normal)
[2018-07-09] MEDS: Baclofen 10 MG Tablet PO SCH ×3 (06:03→21:59)
--- NOTE | 2018-07-09 08:14 | P.PNCC ---
Subjective Subjective Remarks/Hospital Course: Elderly male with a medical history significant for viral cardiomyopathy who was traveling on vacation from [place] with his family in [place] and today developed chest pain with worsening shortness of breath for which EMS was called by family. Patient was extremely short of breath on the arrival and hypoxic and they proceeded with endotracheal intubation and patient was transferred to the ER. In the ER it was noted that his cuff was leaking hence ET tube was exchanged by ER physician and patient was placed on mechanical ventilation. Per his family he has a defibrillator and is followed by his health assessment and treatment teacher in [place] whom he saw in December of this year. He reportedly does not take any diuretic. Chest x-ray done in the ER revealed pulmonary edema. EKG revealed atrial fibrillation. Patient was accepted for admission by critical care medicine service. When I evaluated him in the ER he was sedated with propofol, orally intubated on mechanical ventilation. History was obtained by reviewing records, discussion with family as well as ER physician. 06/21: Afebrile. Hemodynamically stable. Troponin bumped 14. Started on heparin drip. Sedated with propofol and fentanyl drips. Arousable the ventilator and is very agitated will attempt to withdrawal tube. PEEP down to 5. 06/22: Sedated, orally intubated on mechanical ventilation. Gets agitated unenlightening sedation so Precedex added in addition to propofol and fentanyl. CPAP trials ongoing to decide extubation. Cardiac cath postponed by Dr. Noonan in view of questionable neurologic status. 06/23: Patient was extubated yesterday however was requiring significant amount of O2 post extubation with a facemask as well as nasal cannula. This morning around 4 AM due to increased work of breathing and hypoxia he was reintubated by Dr. Lino and placed back on mechanical ventilation. Currently he is sedated , orally intubated on mechanical ventilation. Postintubation chest x-ray shows ET tube in appropriate position and pulmonary edema pattern with perihilar infiltrates bilaterally. 06/24: Remains sedated, orally intubated on mechanical ventilation. 06/25: Remains sedated, orally intubated on mechanical ventilation. 06/26: Remains sedated, orally intubated on mechanical ventilation. Pacer backup rate increased to 60/min yesterday due to hypotension. Awaiting cardiac catheterization. 06/27: Sedated, orally intubated on mechanical ventilation. Underwent cardiac catheterization which revealed nonobstructive CAD. Patient has nonischemic dilated cardiomyopathy per discussion with Dr. Noonan. Initiated dobutamine 2.5 mics per KG per minute on 06/26. Filling pressures not elevated per Dr. Noonan on cardiac cath. 06/28: Sedated, arousable, orally intubated on mechanical ventilation. IV hydrocortisone switched to Solu-Medrol yesterday. Pulmonary consult with Dr. Villegas as patient appears to have significant COPD in addition to cardiomyopathy. Remains on dobutamine at 1.5 mics per KG per minute. Diuresing well. Does not appear to be fluid overloaded at this time. Daily CPAP trials ongoing. 06/29: Remains intubated sedated with Precedex and fentanyl. Remains on dobutamine. Patient is able to track and follow some commands. CXR appears clear today 06/30 Remains intubated and on low dose dobutamine 1.25 mcg/kg/min. Will place on sedation vacation and CPAP trial and plan for trial of extubation as tolerated. Has continued diuresis and CXR is now clear of edema. 07/01: 07/01 Tolerates CPAP. Mental status currently seems limiting factor to extubation but there is some improvement compared with yesterday. Now on seroquel, off fentanyl drip ( states opioids have historically caused delirium for him). On precedex as needed, weaning down. Yesterday he was staring ahead, roving head movements, wild-eyed expressions as if hallucinating , very weak in all extremities. Today he does NOT follow commands but by this evening he does track, moves extremities vigorously and purposefully, strong cough, lifts head up off bed. Appears he will soon be appropriate for trial of extubation but will wait in effort to optimize to full ability, as failure of extubation trial will necessitate trach (currently day #9 following reintubation) is aware. 07/02: No events over the night. The patient tolerated CPAP this a.m. but he became increasingly agitated and tachypneic, currently now back on full support. Sedation is achieved with dexmedetomidine at 1. T-max of 99.1. I/O 4575/3200. 07/03: Episode of agitation over the night requiring increasing Precedex and dose of Ativan. This a.m. patient on dexmedetomidine at 1.4 sedated arousable, not following commands. T-max of 100.4. Urine output of 1400 mL's over the last 24 hours. 07/04: No events over the night. Patient tolerated CPAP yesterday for approximately 6 hours however mental status remains poor. T-max of 100.4 yesterday morning, afebrile since then. Diuresed great over the last 24 hours, 4625 mL's since yesterday, almost 2.5 L negative fluid balance. CT abdomen and pelvis not yet done. 07/05: No events over the night. CT abdomen and pelvis report reviewed, cecum dilation up to 10 cm. Tube feeds were stopped and NG tube was placed on low intermittent wall suction. Patient remains altered with episodes of severe agitation. Currently on Precedex at 0.8. T-max of 100.5 yesterday at noon, afebrile since then. Urine output remains adequate. I/O 3035/1850. 07/06: Patient did well over the night. T-max of 99.8. Hypotension resolved yesterday after fluid bolus administration. I/O 2170/2475. I had long discussion yesterday with the and the family is leaning towards trach. This morning patient on Precedex at 1.5, fully awake, intermittently following some commands. 07/07: Episode of hypoglycemia this morning down to 44. Dextrose given. Patient remains awake, intermittently follows simple commands, on dexmedetomidine at 1.5. Patient remains afebrile, with a T-max of 98.4. I/O 1230/2550. NGT remains at low intermittent wall suction and after GoLYTELY rectal tube was placed on suction with significant amount of drainage. Subjective 07/08: Currently afebrile. Positive BM overnight. Currently on PST trial. NG tube to lower intermittent wall suction and rectal tube to suction. 07/09 No events overnight. Remains intubated and on Precedex drip . Afebrile. Objective Vital Signs / I&O: Vital Signs 07/08/18 08:22 07/08/18 10:00 07/08/18 12:00 Temperature 98.5 F Pulse Rate 70 76 Respiratory Rate 8 L 18 Blood Pressure 114/55 L Pulse Oximetry 100 100 07/08/18 12:26 07/08/18 14:00 07/08/18 14:01 Temperature Pulse Rate 83 83 Respiratory Rate 28 H 17 Blood Pressure 106/55 L Pulse Oximetry 100 100 07/08/18 14:21 07/08/18 14:40 07/08/18 15:00 Temperature Pulse Rate 85 88 90 Respiratory Rate 18 16 17 Blood Pressure 109/55 L 109/63 126/59 L Pulse Oximetry 100 100 99 07/08/18 15:20 07/08/18 15:41 07/08/18 16:00 Temperature 98.4 F Pulse Rate 91 H 90 91 H Respiratory Rate 17 23 23 Blood Pressure 113/74 114/58 L 112/79 Pulse Oximetry 100 100 99 07/08/18 16:21 07/08/18 16:49 07/08/18 17:00 Temperature Pulse Rate 91 H 92 H Respiratory Rate 25 H 18 22 Blood Pressure 121/68 Pulse Oximetry 98 97 97 07/08/18 17:01 07/08/18 17:21 07/08/18 17:40 Temperature Pulse Rate 90 94 H 88 Respiratory Rate 23 20 17 Blood Pressure 114/73 112/57 L 123/58 L Pulse Oximetry 98 96 98 07/08/18 18:00 07/08/18 18:01 07/08/18 18:21 Temperature Pulse Rate 85 89 81 Respiratory Rate 17 24 17 Blood Pressure 117/57 L 108/59 L Pulse Oximetry 99 100 99 07/08/18 19:00 07/08/18 19:01 07/08/18 19:21 Temperature Pulse Rate 74 74 74 Respiratory Rate 17 18 20 Blood Pressure 108/58 L 110/57 L Pulse Oximetry 100 98 97 07/08/18 19:38 07/08/18 19:41 07/08/18 20:00 Temperature 99.5 F Pulse Rate 74 74 Respiratory Rate 20 20 21 Blood Pressure 110/56 L 113/56 L Pulse Oximetry 100 99 97 07/08/18 20:01 07/08/18 20:21 07/08/18 20:41 Temperature Pulse Rate 74 77 71 Respiratory Rate 18 18 21 Blood Pressure 113/56 L 124/59 L 113/62 Pulse Oximetry 98 98 99 07/08/18 21:00 07/08/18 21:09 07/08/18 21:21 Temperature Pulse Rate 77 80 75 Respiratory Rate 19 16 19 Blood Pressure 124/61 115/58 L Pulse Oximetry 99 98 07/08/18 21:40 08/26/18 22:00 07/08/18 22:21 Temperature Pulse Rate 76 74 71 Respiratory Rate 16 20 17 Blood Pressure 119/62 123/60 128/60 Pulse Oximetry 97 99 98 07/08/18 22:30 07/08/18 22:40 07/08/18 23:00 Temperature Pulse Rate 65 64 Respiratory Rate 18 16 16 Blood Pressure 115/57 L 121/58 L Pulse Oximetry 100 98 98 07/08/18 23:21 07/08/18 23:40 07/09/18 00:00 Temperature 99.4 F Pulse Rate 66 62 60 Respiratory Rate 35 H 16 19 Blood Pressure 110/58 L 107/54 L 121/57 L Pulse Oximetry 100 100 100 07/09/18 00:20 07/09/18 00:40 07/09/18 01:00 Temperature Pulse Rate 60 60 60 Respiratory Rate 16 16 18 Blood Pressure 114/56 L 120/57 L 120/57 L Pulse Oximetry 100 100 100 07/09/18 01:20 07/09/18 01:35 07/09/18 01:40 Temperature Pulse Rate 60 60 Respiratory Rate 18 16 16 Blood Pressure 122/57 L 120/57 L Pulse Oximetry 100 100 100 07/09/18 02:00 07/09/18 02:01 07/09/18 02:20 Temperature Pulse Rate 60 60 60 Respiratory Rate 17 16 16 Blood Pressure 118/58 L 121/57 L Pulse Oximetry 100 100 100 07/09/18 02:40 07/09/18 03:00 07/09/18 03:20 Temperature Pulse Rate 60 60 60 Respiratory Rate 18 16 16 Blood Pressure 120/57 L 121/56 L 118/57 L Pulse Oximetry 100 100 100 07/09/18 03:40 07/09/18 04:00 07/09/18 04:07 Temperature 99 F Pulse Rate 60 60 60 Respiratory Rate 16 16 16 Blood Pressure 120/58 L 109/54 L Pulse Oximetry 98 99 07/09/18 04:21 07/09/18 04:38 07/09/18 04:41 Temperature Pulse Rate 61 60 Respiratory Rate 16 16 16 Blood Pressure 102/55 L 103/50 L Pulse Oximetry 99 100 99 07/09/18 05:00 07/09/18 05:01 07/09/18 05:21 Temperature Pulse Rate 60 60 60 Respiratory Rate 16 20 18 Blood Pressure 106/53 L 104/55 L Pulse Oximetry 98 98 98 07/09/18 05:40 07/09/18 06:00 07/09/18 06:20 Temperature Pulse Rate 60 60 60 Respiratory Rate 19 20 16 Blood Pressure 111/54 L 109/57 L 94/52 L Pulse Oximetry 99 100 98 07/09/18 06:41 07/09/18 07:00 07/09/18 07:01 Temperature Pulse Rate 60 60 60 Respiratory Rate 16 16 16 Blood Pressure 107/55 L 99/53 L Pulse Oximetry 100 98 98 Intake & Output 07/08/18 07/09/18 07/09/18 18:59 06:59 18:59 Intake Total 1250 / 1250 1000 / 1000 Output Total 1750 / 1750 820 / 820 Balance -500 / -500 180 / 180 Weight 63.5 kg Intake: IV 1250 / 1250 1000 / 1000 Precedex Inj 1,000 MCG In NS 250 / 250 Inj 240 ML @ 0.2 MCG/KG/HR 3.6 mls/hr IV.CONT TITRATE PRN Rx#: [id number] D5W Inj 1,000 ML @ 60 mls/hr IV 1000 / 1000 1000 / 1000 .CONT .[id number] MONICA Rx#:[id number] Output: Urine 1200 / 1200 Stool 300 / 300 20 / 20 Urine Amount (Catheter) 800 / 800 3-way Urethral 800 / 800 Gastric Drainage 250 / 250 0 / 0 Left Nare Nasogastric Tube 250 / 250 0 / 0 Other: Date of Last Bowel Movement 07/07/18 07/09/18 Result Diagrams: 07/09/18 03:47 07/09/18 03:41 Other Results: Laboratory Results - last 12 hr 07/08/18 07/09/18 07/09/18 21:16 00:17 03:23 WBC RBC Hgb Hct MCV MCH MCHC RDW Plt Count MPV Prelim Diff (Auto) Neut % (Auto) Lymph % (Auto) [place] % (Auto) Eos % (Auto) Baso % (Auto) Neut # (Auto) Lymph # (Auto) [place] # (Auto) Eos # (Auto) Baso # (Auto) WBC Differential Diff Scan Differential Comment Platelet Estimate Platelet Morphology Ovalocytes Keratocytes Sodium Potassium Chloride Carbon Dioxide Anion Gap BUN Creatinine Estimated GFR POC Glucose 177 H 190 H 215 H Random Glucose Calcium Phosphorus Magnesium Total Bilirubin AST ALT Alkaline Phosphatase Ammonia Total Protein Albumin 07/09/18 07/09/18 07/09/18 03:41 03:47 03:47 WBC 6.7 RBC 3.03 L Hgb 9.5 L Hct 28.1 L MCV 93.0 MCH 31.4 MCHC 33.8 RDW 15.6 Plt Count 56 L MPV 11.1 H Prelim Diff (Auto) Slide review pending Neut % (Auto) 84.8 H Lymph % (Auto) 11.4 [place] % (Auto) 2.5 Eos % (Auto) 0.7 Baso % (Auto) 0.6 Neut # (Auto) 5.7 Lymph # (Auto) 0.8 L [place] # (Auto) 0.2 Eos # (Auto) 0.0 Baso # (Auto) 0.0 WBC Differential . Diff Scan Auto diff confirmed Differential Comment . Platelet Estimate Low L Platelet Morphology Normal Ovalocytes 1+ H Keratocytes Occ H Sodium 140 Potassium 3.0 L Chloride 105 Carbon Dioxide 23.0 Anion Gap 12 BUN 24 H Creatinine 1.04 Estimated GFR 71 L POC Glucose Random Glucose 208 H Calcium 7.7 L Phosphorus 2.3 L Magnesium 1.9 Total Bilirubin 0.7 AST 71 H ALT 103 H Alkaline Phosphatase 91 Ammonia 23 Total Protein 5.6 L Albumin 2.0 L Imaging: Abdomen/Bladder Ultrasound 06/21/18 00:00 CONCLUSION: 1. Increased echogenicity of both kidneys typical of chronic parenchymal disease. 2. No evidence of acute obstructive uropathy. 3. Bilateral benign appearing renal cysts. Abdomen/Pelvis CT 07/04/18 00:00 CONCLUSION: The bulging in the right lower quadrant is related to distention of the cecum. Head CT 07/04/18 00:00 CONCLUSION: 1. No acute intracranial abnormality is identified. Stable chronic findings include generalized atrophy and chronic periventricular white matter change. 2. Increased fluid in the right mastoid air cells and mild but new mucoperiosteal thickening in the ethmoid and sphenoid sinus. . Abdomen X-Ray 07/09/18 00:00 CONCLUSION: Persistent distention of the cecum not significantly changed. Chest X-Ray 07/09/18 06:00 CONCLUSION: No significant change mild patchy consolidation of both bases. Objective Remarks: GENERAL: 72-year-old gentleman, intubated, awake, ill-appearing. HEENT: Pupils equal, and reactive. Sclerae are anicteric. Neck is supple without rigidity. + NGT. Orally intubated. Neck veins are not distended. CARDIOVASCULAR: Regular S1 and S2, no murmurs. Permanent pacemaker over the left chest. RESPIRATORY: Clear breath sounds bilateral. No wheezes. Good air entry. GASTROINTESTINAL: Abdomen is soft, appears non-tender, asymmetric distention over the right lower quadrant -improved. Bowel sounds are improved. MUSCULOSKELETAL: Warm, extremities with trace bilateral lower extremity edema. No clubbing. NEUROLOGICAL: Intubated, awake, intermittently following commands, shows thumbs up over both upper extremities and he is trying to move both lower extremities however he remains weak. Assessment and Plan - Assessment and Plan Plan: Assessment: Acute respiratory failure on mechanical ventilation -unchanged, on 0.35 FiO2. Yesterday he tolerated CPAP for approximately 6 hours. Acute decompensated CHF - systolic and diastolic EF 20% -appears euvolemic Staph aureus pneumonia -afebrile over the last 48 hours Dilated cardiomyopathy Atrial fibrillation -rate controlled Non-STEMI FIDE -creatinine normalizing, urine output remains adequate Hypernatremia -resolved Thrombocytopenia -unchanged Adynamic ileus - ?[place] -distention is improved DM -episode of hypoglycemia this a.m. B/L carotid Stenosis 40-59% Erectile Dysfunction PAD LBBB- chronic Hypertension COPD History of pacemaker/defibrillator placement Hyperlipidemia Glaucoma Normocytic anemia Elevated transaminases Plan: Neuro: -Seroquel 25mg bid -Monitor neuro status and wean off Precedex drip, maintain RASS -1 to 0 -[id number] mg 3 times daily/home medications -Gabapentin at 300 mg every 8 hourly has been on hold. Continue brimonidine 0.15% 2 times daily Cardiovascular: -Non-ST elevation GA. cardiology Dr. Noonan following for decompensated CHF, history of cardiomyopathy and positive troponin. -A. fib appears rate controlled. Continue aspirin 162 mg daily. metoprolol tartrate 6.25 mg twice daily. -No ENA inhibitor secondary to acute kidney injury. Off heparin GTT. Holding cilostazol 50 mg twice daily. Simvastatin 20 mg daily/40 mg pravastatin substituted. -Cardiac cath per Dr. Noonan. Angiographically mild to moderate 3-vessel coronary artery disease. EF 20%. -Gentle diuresis with furosemide 40 mg daily Pulmonary: -Continue with vent support keep sats >92% -Albuterol/ipratropium every 6 hours with every 4 hours as needed dyspnea. -Vent bundle, CPAP trials as gisele. -Continue methylprednisolone succinate 40 mg daily -Pulm consult Dr. Shayy blankenhsip for COPD -CXR today mild patchy consolidation of both bases. GI/liver: -Tube feeds Glucerna 1.5 and 55 mL/h -held due to ileus -NG tube placed to low intermittent wall suction -Continue n.p.o. -KUB: Persistent distention of the cecum not significantly changed. -GI consult appreciated Continue with twice daily docusate sodium/senna, lactulose. FEN/Renal/: -Continue D5W at 60 mL's per hour -Continue free water to 200 every 6 hours -Monitor renal function, electrolytes replacement per protocol. Will need K, Phos replacement today ID: -Completed 14 days of cefepime, stopped on 07/04 -Sputum cultures 07/03 and 07/07 growing MSSA/Klebsiella. Stopped Zyvox on 06/26 -Repeat sputum culture sent on 07/03 growing staph aureus and gram-negative bacilli. In the absence of fever and leukocytosis we will hold antibiotics for now. If any signs of the compensation of recurrent fever we will start broad- spectrum antibiotics Heme: -Thrombocytopenia Dr. Campa following. HIT screen negative. -Heparin gtt. discontinued following cardiac cath. Continue Lovenox 40 mg subcutaneous daily DVT prophylaxis. Endocrine: SSI for glycemic control Prophylaxis: Lansoprazole/SCDs. Continue enoxaparin 40 mg subcutaneous daily for DVT prophylaxis. Level 3
[2018-07-09] MEDS: Potassium Phosphate Inj 30 MMOL in Sodium Chlor 0.9% Inj 250 ML IV.SIG PRN (08:47)
[2018-07-09] MEDS: Brimonidine 0.15% Opth Drops 5 ML Bottle EACH EYE SCH ×2 (08:50→21:57)
[2018-07-09] MEDS: Hypromellose 0.3% Opth Gel 10 GM Bottle EACH EYE SCH ×2 (08:50→21:57)
[2018-07-09] MEDS: MethylPREDNISolone Sod Succinate Inj 40 MG/ML Vial IV.PUSH SCH (08:50)
[2018-07-09] MEDS: Enoxaparin Inj 40 MG/0.4 ML Syringe SQ SCH (08:51)
[2018-07-09] MEDS: Metoprolol Tartrate 25 MG Tablet PO SCH ×2 (08:51→21:58)
[2018-07-09] MEDS: Senna/Docusate Sodium 8.6/50 MG Tablet PO SCH ×2 (08:51→21:58)
[2018-07-09] MEDS: Bisacodyl 10 MG Supp RECTAL SCH (08:52)
[2018-07-09] MEDS: QUEtiapine 25 MG Tablet NG/OG SCH ×2 (08:54→12:34)
--- NOTE | 2018-07-09 12:48 | P.PNGI ---
Subjective Interval history: E to low intermittent suction as well as NG tube also to suction. Eyes open, looking around in the room but not focusing on verbal stimuli currently extubated and on 100% nonrebreather Still has rectal Nevarez, continues to put out approximately 300 cc of stool this a.m. per the nurse <JessicaYohanaTiffanie M - Last Filed: 07/09/18 12:50> Physical Exam Vital signs: Vital Signs 07/08/18 14:00 07/08/18 14:01 07/08/18 14:21 Temperature Pulse Rate 83 83 85 Respiratory Rate 17 18 Blood Pressure 106/55 L 109/55 L Pulse Oximetry 100 100 07/08/18 14:40 07/08/18 15:00 07/08/18 15:20 Temperature Pulse Rate 88 90 91 H Respiratory Rate 16 17 17 Blood Pressure 109/63 126/59 L 113/74 Pulse Oximetry 100 99 100 07/08/18 15:41 07/08/18 16:00 07/08/18 16:21 Temperature 98.4 F Pulse Rate 90 91 H 91 H Respiratory Rate 23 23 25 H Blood Pressure 114/58 L 112/79 121/68 Pulse Oximetry 100 99 98 07/08/18 16:49 07/08/18 17:00 07/08/18 17:01 Temperature Pulse Rate 92 H 90 Respiratory Rate 18 22 23 Blood Pressure 114/73 Pulse Oximetry 97 97 98 07/08/18 17:21 07/08/18 17:40 07/08/18 18:00 Temperature Pulse Rate 94 H 88 85 Respiratory Rate 20 17 17 Blood Pressure 112/57 L 123/58 L Pulse Oximetry 96 98 99 07/08/18 18:01 07/08/18 18:21 07/08/18 19:00 Temperature Pulse Rate 89 81 74 Respiratory Rate 24 17 17 Blood Pressure 117/57 L 108/59 L Pulse Oximetry 100 99 100 07/08/18 19:01 07/08/18 19:21 07/08/18 19:38 Temperature Pulse Rate 74 74 Respiratory Rate 18 20 20 Blood Pressure 108/58 L 110/57 L Pulse Oximetry 98 97 100 07/08/18 19:41 07/08/18 20:00 07/08/18 20:01 Temperature 99.5 F Pulse Rate 74 74 74 Respiratory Rate 20 21 18 Blood Pressure 110/56 L 113/56 L 113/56 L Pulse Oximetry 99 97 98 07/08/18 20:21 07/08/18 20:41 07/08/18 21:00 Temperature Pulse Rate 77 71 77 Respiratory Rate 18 21 19 Blood Pressure 124/59 L 113/62 124/61 Pulse Oximetry 98 99 99 07/08/18 21:09 07/08/18 21:21 07/08/18 21:40 Temperature Pulse Rate 80 75 76 Respiratory Rate 16 19 16 Blood Pressure 115/58 L 119/62 Pulse Oximetry 98 97 07/08/18 22:00 07/08/18 22:21 07/08/18 22:30 Temperature Pulse Rate 74 71 Respiratory Rate 20 17 18 Blood Pressure 123/60 128/60 Pulse Oximetry 99 98 100 07/08/18 22:40 07/08/18 23:00 07/08/18 23:21 Temperature Pulse Rate 65 64 66 Respiratory Rate 16 16 35 H Blood Pressure 115/57 L 121/58 L 110/58 L Pulse Oximetry 98 98 100 07/08/18 23:40 07/09/18 00:00 07/09/18 00:20 Temperature 99.4 F Pulse Rate 62 60 60 Respiratory Rate 16 19 16 Blood Pressure 107/54 L 121/57 L 114/56 L Pulse Oximetry 100 100 100 07/09/18 00:40 07/09/18 01:00 07/09/18 01:20 Temperature Pulse Rate 60 60 60 Respiratory Rate 16 18 18 Blood Pressure 120/57 L 120/57 L 122/57 L Pulse Oximetry 100 100 100 07/09/18 01:35 07/09/18 01:40 07/09/18 02:00 Temperature Pulse Rate 60 60 Respiratory Rate 16 16 17 Blood Pressure 120/57 L Pulse Oximetry 100 100 100 07/09/18 02:01 07/09/18 02:20 07/09/18 02:40 Temperature Pulse Rate 60 60 60 Respiratory Rate 16 16 18 Blood Pressure 118/58 L 121/57 L 120/57 L Pulse Oximetry 100 100 100 07/09/18 03:00 07/09/18 03:20 07/09/18 03:40 Temperature Pulse Rate 60 60 60 Respiratory Rate 16 16 16 Blood Pressure 121/56 L 118/57 L 120/58 L Pulse Oximetry 100 100 98 07/09/18 04:00 07/09/18 04:07 07/09/18 04:21 Temperature 99 F Pulse Rate 60 60 61 Respiratory Rate 16 16 16 Blood Pressure 109/54 L 102/55 L Pulse Oximetry 99 99 07/09/18 04:38 07/09/18 04:41 07/09/18 05:00 Temperature Pulse Rate 60 60 Respiratory Rate 16 16 16 Blood Pressure 103/50 L Pulse Oximetry 100 99 98 07/09/18 05:01 07/09/18 05:21 07/09/18 05:40 Temperature Pulse Rate 60 60 60 Respiratory Rate 20 18 19 Blood Pressure 106/53 L 104/55 L 111/54 L Pulse Oximetry 98 98 99 07/09/18 06:00 07/09/18 06:20 07/09/18 06:41 Temperature Pulse Rate 60 60 60 Respiratory Rate 20 16 16 Blood Pressure 109/57 L 94/52 L 107/55 L Pulse Oximetry 100 98 100 07/09/18 07:00 07/09/18 07:01 07/09/18 08:00 Temperature 98.6 F Pulse Rate 60 60 62 Respiratory Rate 16 16 18 Blood Pressure 99/53 L 106/55 L Pulse Oximetry 98 98 98 07/09/18 08:25 07/09/18 08:46 07/09/18 10:00 Temperature Pulse Rate 62 79 Respiratory Rate 12 17 Blood Pressure Pulse Oximetry 100 07/09/18 10:14 Temperature Pulse Rate Respiratory Rate Blood Pressure Pulse Oximetry 95 Intake & Output 07/08/18 07/09/18 07/09/18 18:59 06:59 18:59 Intake Total 1250 / 1250 1000 / 1000 Output Total 1750 / 1750 820 / 820 Balance -500 / -500 180 / 180 Weight 63.5 kg Intake: IV 1250 / 1250 1000 / 1000 Precedex Inj 1,000 MCG In NS 250 / 250 Inj 240 ML @ 0.2 MCG/KG/HR 3.6 mls/hr IV.CONT TITRATE PRN Rx#: [id number] Inj 1,000 ML @ 60 mls/hr IV 1000 / 1000 1000 / 1000 .CONT .[id number] [facility] Rx#:[id number] Output: Urine 1200 / 1200 Stool 300 / 300 20 / 20 Urine Amount (Catheter) 800 / 800 3-way Urethral 800 / 800 Gastric Drainage 250 / 250 0 / 0 Left Nare Nasogastric Tube 250 / 250 0 / 0 Other: Date of Last Bowel Movement 07/07/18 07/09/18 07/09/18 - Constitutional mild distress, thin, cachectic - Routine HEENT Exam Head: Present: normocephalic ENT: Present: mucous membranes dry - Routine Respiratory Exam Present: accessory muscle use (Now on 100% nonrebreather mask and extubation) - Routine Cardiovascular Exam Present: S1, S2 (Sinus rhythm with bundle branch block) - Routine Abdominal Exam Present: soft (No obvious distention and no obvious abdominal pain to light palpation, continues with rectal Nevarez with light brown stool via canister) - Routine Skin Exam Present: pallor - Routine Neurological Exam Present: altered mental status - Urinary Catheter Management Indwelling Urethral Catheter Cath placed during this visit: yes Reason for continuing: Other continuation reason Insertion date: 06/20/18 Insertion time: 21:24 3-way Urethral Cath placed during this visit: yes Reason for continuing: Acute urinary retention Insertion date: 07/06/18 Insertion time: 18:00 <Tiffanie Lopez - Last Filed: 07/09/18 12:50> Vital signs: Vital Signs 07/08/18 16:00 07/08/18 16:21 07/08/18 16:49 Temperature 98.4 F Pulse Rate 91 H 91 H Respiratory Rate 23 25 H 18 Blood Pressure 112/79 121/68 Pulse Oximetry 99 98 97 07/08/18 17:00 07/08/18 17:01 07/08/18 17:21 Temperature Pulse Rate 92 H 90 94 H Respiratory Rate 22 23 20 Blood Pressure 114/73 112/57 L Pulse Oximetry 97 98 96 07/08/18 17:40 07/08/18 18:00 07/08/18 18:01 Temperature Pulse Rate 88 85 89 Respiratory Rate 17 17 24 Blood Pressure 123/58 L 117/57 L Pulse Oximetry 98 99 100 07/08/18 18:21 07/08/18 19:00 07/08/18 19:01 Temperature Pulse Rate 81 74 74 Respiratory Rate 17 17 18 Blood Pressure 108/59 L 108/58 L Pulse Oximetry 99 100 98 07/08/18 19:21 07/08/18 19:38 07/08/18 19:41 Temperature Pulse Rate 74 74 Respiratory Rate 20 20 20 Blood Pressure 110/57 L 110/56 L Pulse Oximetry 97 100 99 07/08/18 20:00 07/08/18 20:01 07/08/18 20:21 Temperature 99.5 F Pulse Rate 74 74 77 Respiratory Rate 21 18 18 Blood Pressure 113/56 L 113/56 L 124/59 L Pulse Oximetry 97 98 98 07/08/18 20:41 07/08/18 21:00 07/08/18 21:09 Temperature Pulse Rate 71 77 80 Respiratory Rate 21 19 16 Blood Pressure 113/62 124/61 Pulse Oximetry 99 99 07/08/18 21:21 07/08/18 21:40 07/08/18 22:00 Temperature Pulse Rate 75 76 74 Respiratory Rate 19 16 20 Blood Pressure 115/58 L 119/62 123/60 Pulse Oximetry 98 97 99 07/08/18 22:21 07/08/18 22:30 07/08/18 22:40 Temperature Pulse Rate 71 65 Respiratory Rate 17 18 16 Blood Pressure 128/60 115/57 L Pulse Oximetry 98 100 98 07/08/18 23:00 07/08/18 23:21 07/08/18 23:40 Temperature Pulse Rate 64 66 62 Respiratory Rate 16 35 H 16 Blood Pressure 121/58 L 110/58 L 107/54 L Pulse Oximetry 98 100 100 07/09/18 00:00 07/09/18 00:20 07/09/18 00:40 Temperature 99.4 F Pulse Rate 60 60 60 Respiratory Rate 19 16 16 Blood Pressure 121/57 L 114/56 L 120/57 L Pulse Oximetry 100 100 100 07/09/18 01:00 07/09/18 01:20 07/09/18 01:35 Temperature Pulse Rate 60 60 Respiratory Rate 18 18 16 Blood Pressure 120/57 L 122/57 L Pulse Oximetry 100 100 100 07/09/18 01:40 07/09/18 02:00 07/09/18 02:01 Temperature Pulse Rate 60 60 60 Respiratory Rate 16 17 16 Blood Pressure 120/57 L 118/58 L Pulse Oximetry 100 100 100 07/09/18 02:20 07/09/18 02:40 07/09/18 03:00 Temperature Pulse Rate 60 60 60 Respiratory Rate 16 18 16 Blood Pressure 121/57 L 120/57 L 121/56 L Pulse Oximetry 100 100 100 07/09/18 03:20 07/09/18 03:40 07/09/18 04:00 Temperature 99 F Pulse Rate 60 60 60 Respiratory Rate 16 16 16 Blood Pressure 118/57 L 120/58 L 109/54 L Pulse Oximetry 100 98 99 07/09/18 04:07 07/09/18 04:21 07/09/18 04:38 Temperature Pulse Rate 60 61 Respiratory Rate 16 16 16 Blood Pressure 102/55 L Pulse Oximetry 99 100 07/09/18 04:41 07/09/18 05:00 07/09/18 05:01 Temperature Pulse Rate 60 60 60 Respiratory Rate 16 16 20 Blood Pressure 103/50 L 106/53 L Pulse Oximetry 99 98 98 07/09/18 05:21 07/09/18 05:40 07/09/18 06:00 Temperature Pulse Rate 60 60 60 Respiratory Rate 18 19 20 Blood Pressure 104/55 L 111/54 L 109/57 L Pulse Oximetry 98 99 100 07/09/18 06:20 07/09/18 06:41 07/09/18 07:00 Temperature Pulse Rate 60 60 60 Respiratory Rate 16 16 16 Blood Pressure 94/52 L 107/55 L Pulse Oximetry 98 100 98 07/09/18 07:01 07/09/18 08:00 07/09/18 08:25 Temperature 98.6 F Pulse Rate 60 62 Respiratory Rate 16 18 12 Blood Pressure 99/53 L 106/55 L Pulse Oximetry 98 98 100 07/09/18 08:46 07/09/18 10:00 07/09/18 10:14 Temperature Pulse Rate 62 79 Respiratory Rate 17 Blood Pressure Pulse Oximetry 95 07/09/18 12:00 07/09/18 14:00 Temperature 98.4 F 98.5 F Pulse Rate 72 79 Respiratory Rate 18 18 Blood Pressure 139/83 Pulse Oximetry 98 99 Intake & Output 07/08/18 07/09/18 07/09/18 18:59 06:59 18:59 Intake Total 1250 / 1250 1000 / 1000 360 / 360 Output Total 1750 / 1750 820 / 820 Balance -500 / -500 180 / 180 360 / 360 Weight 63.5 kg Intake: IV 1250 / 1250 1000 / 1000 360 / 360 Precedex Inj 1,000 MCG In NS 250 / 250 100 / 100 Inj 240 ML @ 0.2 MCG/KG/HR 3.6 mls/hr IV.CONT TITRATE PRN Rx#: [id number] Inj 1,000 ML @ 60 mls/hr IV 1000 / 1000 1000 / 1000 .CONT .[id number] [facility] Rx#:[id number] Potassium Phosphate Inj 30 MMOL 260 / 260 In NS Inj 250 ML @ 42 mls/hr IV.SIG UNSCH PRN Rx#:[id number] Output: Urine 1200 / 1200 Stool 300 / 300 20 / 20 Urine Amount (Catheter) 800 / 800 3-way Urethral 800 / 800 Gastric Drainage 250 / 250 0 / 0 Left Nare Nasogastric Tube 250 / 250 0 / 0 Other: Date of Last Bowel Movement 07/07/18 07/09/18 07/09/18 - Urinary Catheter Management Indwelling Urethral Catheter Cath placed during this visit: no 3-way Urethral Cath placed during this visit: no <Aung Garcia - Last Filed: 07/09/18 16:00> Results - Labs CBC & Chem 7: 07/09/18 03:47 07/09/18 03:41 Laboratory Results - last 24 hr 07/08/18 07/08/18 07/08/18 13:58 17:25 21:16 WBC RBC Hgb Hct MCV MCH MCHC RDW Plt Count MPV Prelim Diff (Auto) Neut % (Auto) Lymph % (Auto) Millard % (Auto) Eos % (Auto) Baso % (Auto) Neut # (Auto) Lymph # (Auto) Millard # (Auto) Eos # (Auto) Baso # (Auto) WBC Differential Diff Scan Differential Comment Platelet Estimate Platelet Morphology Ovalocytes Keratocytes Sodium Potassium Chloride Carbon Dioxide Anion Gap BUN Creatinine Estimated GFR POC Glucose 331 H 182 H 177 H Random Glucose Calcium Phosphorus Magnesium Total Bilirubin AST ALT Alkaline Phosphatase Ammonia Total Protein Albumin 07/09/18 07/09/18 07/09/18 00:17 03:23 03:41 WBC RBC Hgb Hct MCV MCH MCHC RDW Plt Count MPV Prelim Diff (Auto) Neut % (Auto) Lymph % (Auto) Millard % (Auto) Eos % (Auto) Baso % (Auto) Neut # (Auto) Lymph # (Auto) Millard # (Auto) Eos # (Auto) Baso # (Auto) WBC Differential Diff Scan Differential Comment Platelet Estimate Platelet Morphology Ovalocytes Keratocytes Sodium 140 Potassium 3.0 L Chloride 105 Carbon Dioxide 23.0 Anion Gap 12 BUN 24 H Creatinine 1.04 Estimated GFR 71 L POC Glucose 190 H 215 H Random Glucose 208 H Calcium 7.7 L Phosphorus 2.3 L Magnesium 1.9 Total Bilirubin 0.7 AST 71 H ALT 103 H Alkaline Phosphatase 91 Ammonia Total Protein 5.6 L Albumin 2.0 L 07/09/18 07/09/18 07/09/18 03:47 03:47 08:46 WBC 6.7 RBC 3.03 L Hgb 9.5 L Hct 28.1 L MCV 93.0 MCH 31.4 MCHC 33.8 RDW 15.6 Plt Count 56 L MPV 11.1 H Prelim Diff (Auto) Slide review pending Neut % (Auto) 84.8 H Lymph % (Auto) 11.4 Millard % (Auto) 2.5 Eos % (Auto) 0.7 Baso % (Auto) 0.6 Neut # (Auto) 5.7 Lymph # (Auto) 0.8 L Millard # (Auto) 0.2 Eos # (Auto) 0.0 Baso # (Auto) 0.0 WBC Differential . Diff Scan Auto diff confirmed Differential Comment . Platelet Estimate Low L Platelet Morphology Normal Ovalocytes 1+ H Keratocytes Occ H Sodium Potassium Chloride Carbon Dioxide Anion Gap BUN Creatinine Estimated GFR POC Glucose 192 H Random Glucose Calcium Phosphorus Magnesium Total Bilirubin AST ALT Alkaline Phosphatase Ammonia 23 Total Protein Albumin Microbiology 07/07/18 18:26 Sputum - Endotracheal Gram Stain - Final 07/07/18 18:26 Sputum - Endotracheal Sputum Culture - Final Staphylococcus aureus Klebsiella pneumoniae 07/03/18 07:44 Blood - Peripheral Aerobic Blood Culture - Final No growth in 5 days 07/03/18 07:44 Blood - Peripheral Anaerobic Blood Culture - Final No growth in 5 days 07/03/18 07:49 Blood - Peripheral Aerobic Blood Culture - Final No growth in 5 days 07/03/18 07:49 Blood - Peripheral Anaerobic Blood Culture - Final No growth in 5 days - Imaging Impressions Abdomen X-Ray 07/09/18 00:00 CONCLUSION: Persistent distention of the cecum not significantly changed. Chest X-Ray 07/09/18 06:00 CONCLUSION: No significant change mild patchy consolidation of both bases. <Tiffanie Lopez - Last Filed: 07/09/18 12:50> - Labs CBC & Chem 7: 07/09/18 03:47 07/09/18 03:41 Laboratory Results - last 24 hr 07/08/18 07/08/18 07/09/18 17:25 21:16 00:17 WBC RBC Hgb Hct MCV MCH MCHC RDW Plt Count MPV Prelim Diff (Auto) Neut % (Auto) Lymph % (Auto) Millard % (Auto) Eos % (Auto) Baso % (Auto) Neut # (Auto) Lymph # (Auto) Millard # (Auto) Eos # (Auto) Baso # (Auto) WBC Differential Diff Scan Differential Comment Platelet Estimate Platelet Morphology Ovalocytes Keratocytes Sodium Potassium Chloride Carbon Dioxide Anion Gap BUN Creatinine Estimated GFR POC Glucose 182 H 177 H 190 H Random Glucose Calcium Phosphorus Magnesium Total Bilirubin AST ALT Alkaline Phosphatase Ammonia Total Protein Albumin 07/09/18 07/09/18 07/09/18 03:23 03:41 03:47 WBC RBC Hgb Hct MCV MCH MCHC RDW Plt Count MPV Prelim Diff (Auto) Neut % (Auto) Lymph % (Auto) Millard % (Auto) Eos % (Auto) Baso % (Auto) Neut # (Auto) Lymph # (Auto) Millard # (Auto) Eos # (Auto) Baso # (Auto) WBC Differential Diff Scan Differential Comment Platelet Estimate Platelet Morphology Ovalocytes Keratocytes Sodium 140 Potassium 3.0 L Chloride 105 Carbon Dioxide 23.0 Anion Gap 12 BUN 24 H Creatinine 1.04 Estimated GFR 71 L POC Glucose 215 H Random Glucose 208 H Calcium 7.7 L Phosphorus 2.3 L Magnesium 1.9 Total Bilirubin 0.7 AST 71 H ALT 103 H Alkaline Phosphatase 91 Ammonia 23 Total Protein 5.6 L Albumin 2.0 L 07/09/18 07/09/18 03:47 08:46 WBC 6.7 RBC 3.03 L Hgb 9.5 L Hct 28.1 L MCV 93.0 MCH 31.4 MCHC 33.8 RDW 15.6 Plt Count 56 L MPV 11.1 H Prelim Diff (Auto) Slide review pending Neut % (Auto) 84.8 H Lymph % (Auto) 11.4 Millard % (Auto) 2.5 Eos % (Auto) 0.7 Baso % (Auto) 0.6 Neut # (Auto) 5.7 Lymph # (Auto) 0.8 L Millard # (Auto) 0.2 Eos # (Auto) 0.0 Baso # (Auto) 0.0 WBC Differential . Diff Scan Auto diff confirmed Differential Comment . Platelet Estimate Low L Platelet Morphology Normal Ovalocytes 1+ H Keratocytes Occ H Sodium Potassium Chloride Carbon Dioxide Anion Gap BUN Creatinine Estimated GFR POC Glucose 192 H Random Glucose Calcium Phosphorus Magnesium Total Bilirubin AST ALT Alkaline Phosphatase Ammonia Total Protein Albumin Microbiology 07/07/18 18:26 Sputum - Endotracheal Gram Stain - Final 07/07/18 18:26 Sputum - Endotracheal Sputum Culture - Final Staphylococcus aureus Klebsiella pneumoniae - Imaging Impressions Abdomen X-Ray 07/09/18 00:00 CONCLUSION: Persistent distention of the cecum not significantly changed. Chest X-Ray 07/09/18 06:00 CONCLUSION: No significant change mild patchy consolidation of both bases. <Anug Garcia - Last Filed: 07/09/18 16:00> Assessment and Plan - Plan History Constipation 72-year-old male initially from the [facility] under the hospital with shortness of breath and was intubated due to hypoxemia. Patient was noted to have no bowel movement in 2 days and GI was consulted to assist with any symptoms and his constipation. KUB initially showed some distention in the cecum. Repeat KUB today still shows persistent stool in the ascending colon. Patient's currently being managed on ventilator and is in atrial fibrillation with RVR as well as paced rhythm. NG tube is connected to low intermittent suction, patient has mild sedation on board gastroenterology was consulted to assist with his constipation. Patient has round taut, abdomen with minimal hypoactive bowel sounds in his lower quadrants, no bowel sounds in the upper quadrants. Dependent on patient's response to Dulcolax suppository may need follow-up KUBs in the next 24-48 hours, The GoLYTELY has had its effects physical examination shows a less distended abdomen although KUB still shows mild dilation of the cecum but not to the same level as before 07/09/2018 KUB reviewed this a.m. which still shows persistent distention of the cecum without a lot of acute changes. Patient continues with rectal Nevarez and according to nurse she has had approximately 300 cc output this a.m. Abdomen is soft nontender to light palpation. No acute nausea or vomiting and NG tube also to low intermittent suction. Patient remains in the intensive care setting but has been extubated this morning to 100% nonrebreather patient's eyes are open and appears to be looking around but is not responding to any verbal stimuli. Continue bowel regimen for now and monitor rectal output. As long as stool is then will also continue rectal Nevarez. Continue NG tube, patient still noted with cecum distention. Plan N.p.o. for now Monitor labs and any obvious bleeding Continue lactulose daily, and stool softeners KUB in the morning continue with bowel regimen Patient was seen per myself and Dr. Garcia, note was written on his behalf <Tiffanie Lopez - Last Filed: 07/09/18 12:50> - Plan Seen and examined with INSTRUMENT AND ELECTRICAL TECHNICIAN, at bedside reports multiple large BMs after golytle. DC rectal tube. Start trickle TF. Repeat kub in am. Discussed with Dr. Ramirez. The exam, history, and the medical decision-making described in the above note were completed with the assistance of the mid-level provider. I reviewed and agree with the findings presented. I attest that I had a [id number] encounter with the patient on the same day, and personally performed and documented my assessment and findings in the medical record. <Aung Garcia - Last Filed: 07/09/18 16:00>
--- NOTE | 2018-07-09 12:52 | P.PNCA ---
Subjective Interval history: extubated, restrained, not following commands in nad Physical Exam Vital signs: Vital Signs 07/08/18 14:00 07/08/18 14:01 07/08/18 14:21 Temperature Pulse Rate 83 83 85 Respiratory Rate 17 18 Blood Pressure 106/55 L 109/55 L Pulse Oximetry 100 100 07/08/18 14:40 07/08/18 15:00 07/08/18 15:20 Temperature Pulse Rate 88 90 91 H Respiratory Rate 16 17 17 Blood Pressure 109/63 126/59 L 113/74 Pulse Oximetry 100 99 100 07/08/18 15:41 07/08/18 16:00 07/08/18 16:21 Temperature 98.4 F Pulse Rate 90 91 H 91 H Respiratory Rate 23 23 25 H Blood Pressure 114/58 L 112/79 121/68 Pulse Oximetry 100 99 98 07/08/18 16:49 07/08/18 17:00 07/08/18 17:01 Temperature Pulse Rate 92 H 90 Respiratory Rate 18 22 23 Blood Pressure 114/73 Pulse Oximetry 97 97 98 07/08/18 17:21 07/08/18 17:40 07/08/18 18:00 Temperature Pulse Rate 94 H 88 85 Respiratory Rate 20 17 17 Blood Pressure 112/57 L 123/58 L Pulse Oximetry 96 98 99 07/08/18 18:01 07/08/18 18:21 07/08/18 19:00 Temperature Pulse Rate 89 81 74 Respiratory Rate 24 17 17 Blood Pressure 117/57 L 108/59 L Pulse Oximetry 100 99 100 07/08/18 19:01 07/08/18 19:21 07/08/18 19:38 Temperature Pulse Rate 74 74 Respiratory Rate 18 20 20 Blood Pressure 108/58 L 110/57 L Pulse Oximetry 98 97 100 07/08/18 19:41 07/08/18 20:00 07/08/18 20:01 Temperature 99.5 F Pulse Rate 74 74 74 Respiratory Rate 20 21 18 Blood Pressure 110/56 L 113/56 L 113/56 L Pulse Oximetry 99 97 98 07/08/18 20:21 07/08/18 20:41 07/08/18 21:00 Temperature Pulse Rate 77 71 77 Respiratory Rate 18 21 19 Blood Pressure 124/59 L 113/62 124/61 Pulse Oximetry 98 99 99 07/08/18 21:09 07/08/18 21:21 07/08/18 21:40 Temperature Pulse Rate 80 75 76 Respiratory Rate 16 19 16 Blood Pressure 115/58 L 119/62 Pulse Oximetry 98 97 07/08/18 22:00 07/08/18 22:21 07/08/18 22:30 Temperature Pulse Rate 74 71 Respiratory Rate 20 17 18 Blood Pressure 123/60 128/60 Pulse Oximetry 99 98 100 07/08/18 22:40 07/08/18 23:00 07/08/18 23:21 Temperature Pulse Rate 65 64 66 Respiratory Rate 16 16 35 H Blood Pressure 115/57 L 121/58 L 110/58 L Pulse Oximetry 98 98 100 07/08/18 23:40 07/09/18 00:00 07/09/18 00:20 Temperature 99.4 F Pulse Rate 62 60 60 Respiratory Rate 16 19 16 Blood Pressure 107/54 L 121/57 L 114/56 L Pulse Oximetry 100 100 100 07/09/18 00:40 07/09/18 01:00 07/09/18 01:20 Temperature Pulse Rate 60 60 60 Respiratory Rate 16 18 18 Blood Pressure 120/57 L 120/57 L 122/57 L Pulse Oximetry 100 100 100 07/09/18 01:35 07/09/18 01:40 07/09/18 02:00 Temperature Pulse Rate 60 60 Respiratory Rate 16 16 17 Blood Pressure 120/57 L Pulse Oximetry 100 100 100 07/09/18 02:01 07/09/18 02:20 07/09/18 02:40 Temperature Pulse Rate 60 60 60 Respiratory Rate 16 16 18 Blood Pressure 118/58 L 121/57 L 120/57 L Pulse Oximetry 100 100 100 07/09/18 03:00 07/09/18 03:20 07/09/18 03:40 Temperature Pulse Rate 60 60 60 Respiratory Rate 16 16 16 Blood Pressure 121/56 L 118/57 L 120/58 L Pulse Oximetry 100 100 98 07/09/18 04:00 07/09/18 04:07 07/09/18 04:21 Temperature 99 F Pulse Rate 60 60 61 Respiratory Rate 16 16 16 Blood Pressure 109/54 L 102/55 L Pulse Oximetry 99 99 07/09/18 04:38 07/09/18 04:41 07/09/18 05:00 Temperature Pulse Rate 60 60 Respiratory Rate 16 16 16 Blood Pressure 103/50 L Pulse Oximetry 100 99 98 07/09/18 05:01 07/09/18 05:21 07/09/18 05:40 Temperature Pulse Rate 60 60 60 Respiratory Rate 20 18 19 Blood Pressure 106/53 L 104/55 L 111/54 L Pulse Oximetry 98 98 99 07/09/18 06:00 07/09/18 06:20 07/09/18 06:41 Temperature Pulse Rate 60 60 60 Respiratory Rate 20 16 16 Blood Pressure 109/57 L 94/52 L 107/55 L Pulse Oximetry 100 98 100 07/09/18 07:00 07/09/18 07:01 07/09/18 08:00 Temperature 98.6 F Pulse Rate 60 60 62 Respiratory Rate 16 16 18 Blood Pressure 99/53 L 106/55 L Pulse Oximetry 98 98 98 07/09/18 08:25 07/09/18 08:46 07/09/18 10:00 Temperature Pulse Rate 62 79 Respiratory Rate 12 17 Blood Pressure Pulse Oximetry 100 07/09/18 10:14 Temperature Pulse Rate Respiratory Rate Blood Pressure Pulse Oximetry 95 Intake & Output 07/08/18 07/09/18 07/09/18 18:59 06:59 18:59 Intake Total 1250 / 1250 1000 / 1000 Output Total 1750 / 1750 820 / 820 Balance -500 / -500 180 / 180 Weight 63.5 kg Intake: IV 1250 / 1250 1000 / 1000 Precedex Inj 1,000 MCG In NS 250 / 250 Inj 240 ML @ 0.2 MCG/KG/HR 3.6 mls/hr IV.CONT TITRATE PRN Rx#: [id number] Inj 1,000 ML @ 60 mls/hr IV 1000 / 1000 1000 / 1000 .CONT .[id number] MONICA Rx#:[id number] Output: Urine 1200 / 1200 Stool 300 / 300 20 / 20 Urine Amount (Catheter) 800 / 800 3-way Urethral 800 / 800 Gastric Drainage 250 / 250 0 / 0 Left Nare Nasogastric Tube 250 / 250 0 / 0 Other: Date of Last Bowel Movement 07/07/18 07/09/18 07/09/18 - Urinary Catheter Management Indwelling Urethral Catheter Cath placed during this visit: yes Reason for continuing: Other continuation reason Insertion date: 06/20/18 Insertion time: 21:24 3-way Urethral Cath placed during this visit: yes Reason for continuing: Acute urinary retention Insertion date: 07/06/18 Insertion time: 18:00 Assessment and Plan - Assessment (1) Cardiomyopathy Code(s): I42.9 - Cardiomyopathy, unspecified Status: Acute (2) Cardiomyopathy Code(s): I42.9 - Cardiomyopathy, unspecified Status: Acute (3) PVD (peripheral vascular disease) Code(s): I73.9 - Peripheral vascular disease, unspecified Status: Acute (4) PVD (peripheral vascular disease) Code(s): I73.9 - Peripheral vascular disease, unspecified Status: Acute (5) Tobacco abuse Code(s): Z72.0 - Tobacco use Status: Acute (6) Respiratory failure Code(s): J96.90 - Respiratory failure, unspecified, unspecified whether with hypoxia or hypercapnia Status: Acute (7) Non-ST elevated myocardial infarction (non-STEMI) Code(s): I21.4 - Non-ST elevation (NSTEMI) myocardial infarction Status: Acute (8) Pulmonary edema cardiac cause Code(s): I50.1 - Left ventricular failure, unspecified Status: Acute - Plan 1.) NICM - end stage, euvolemic, refuses in state transfer, requesting transfer to [facility], d/w Dr Solis; beta ana and hellen held due to hypotension, diuresing to optimize potential extubation, he has hypernatremia 2.) CAD - nonobstructive, continue aspirin, pravachol 3.) Encephalopathy - moderate per EEG on sedation, neuro following 4.) d/w case with at the bedside 07/04/18 5.) Respiratory failure - he is euvolemic, appears to be due to pulmonary and/ or encephalopathic etilology, extubated 07/09/18 but restrained and not following commands, will follow trends in mental and respiratory status, d/w at the bedside 07/09/18 (6) Respiratory failure Qualifiers: Qualified Code(s): J96.01 - Acute respiratory failure with hypoxia
[2018-07-09] MEDS: Hydrocortisone Sod Succinate 100 MG Vial IV.PUSH SCH (16:42)
[2018-07-09 21:31] LABS: Potassium 3.3 meq/L (3.5-5.1)
[2018-07-09 21:43] LABS: Phosphorus 3.8 mg/dL (2.5-4.9)
[2018-07-09] MEDS: Dexmedetomidine Inj 200 MCG in Sodium Chlor 0.9% Inj 48 ML IV.CONT PRN ×2 (22:00→23:49)
[2018-07-10] MEDS: Potassium Chloride 25 MEQ Effervescent Tablet PO PRN (02:21)
[2018-07-10] MEDS: Dexmedetomidine Inj 200 MCG in Sodium Chlor 0.9% Inj 48 ML IV.CONT PRN ×2 (03:26→16:56)
[2018-07-10 04:35] LABS: Baso % (Auto) 0.5 % (0.0-2.0); Hemoglobin 9.5 gm/dL (13.0-17.0); Lymph # (Auto) 0.8 th/mm3 (1.0-4.8); Lymph % (Auto) 8.9 % (9.0-44.0); Mean Corpuscular HGB Conc 33.9 % (32.0-36.0); Mean Corpuscular Hemoglobin 31.4 pg (27.0-34.0); Mean Corpuscular Volume 92.6 fL (80.0-100.0); Mean Platelet Volume 10.9 fL (7.0-11.0); Mono # (Auto) 0.5 th/mm3 (0.0-0.9); Mono % (Auto) 5.4 % (0.0-8.0); Neut # (Auto) 7.2 th/mm3 (1.8-7.7); Neut % (Auto) 85.2 % (16.0-70.0); Platelet Count 71 th/mm3 (150-450); Red Blood Count 3.02 mil/mm3 (4.50-5.90); Red Cell Distribution Width 15.5 % (11.6-17.2); White Blood Count 8.4 th/mm3 (4.0-11.0)
[2018-07-10] MEDS: Insulin NovoLOG Aspart Correctional Sugar Inj SQ SCH ×5 (04:47→20:45)
[2018-07-10 05:12] LABS: Alanine Aminotransferase 122 U/L (12-78); Albumin 2.1 g/dL (3.4-5.0); Alkaline Phosphatase 113 U/L (45-117); Anion Gap 10 meq/L (5-15); Aspartate Aminotransferase 92 U/L (15-37); Blood Urea Nitrogen 20 mg/dL (7-18); Calcium 7.9 mg/dL (8.5-10.1); Carbon Dioxide 25.1 meq/L (21.0-32.0); Chloride 108 meq/L (98-107); Glomerular Filtration Rate 83 mL/min (>89); Glucose,Random 97 mg/dL (74-106); Magnesium 1.9 mg/dL (1.5-2.5); Phosphorus 2.4 mg/dL (2.5-4.9); Potassium 3.9 meq/L (3.5-5.1); Sodium 143 meq/L (136-145); Total Protein 5.9 g/dL (6.4-8.2)
[2018-07-10] MEDS: Baclofen 10 MG Tablet PO SCH ×3 (05:59→21:02)
--- NOTE | 2018-07-10 08:09 | P.PNCC ---
Subjective Subjective Remarks/Hospital Course: Elderly male with a medical history significant for viral cardiomyopathy who was traveling on vacation from [place] with his family in [place] and today developed chest pain with worsening shortness of breath for which EMS was called by family. Patient was extremely short of breath on the arrival and hypoxic and they proceeded with endotracheal intubation and patient was transferred to the ER. In the ER it was noted that his cuff was leaking hence ET tube was exchanged by ER physician and patient was placed on mechanical ventilation. Per his family he has a defibrillator and is followed by his die keeper in [place] whom he saw in December of this year. He reportedly does not take any diuretic. Chest x-ray done in the ER revealed pulmonary edema. EKG revealed atrial fibrillation. Patient was accepted for admission by critical care medicine service. When I evaluated him in the ER he was sedated with propofol, orally intubated on mechanical ventilation. History was obtained by reviewing records, discussion with family as well as ER physician. 06/21: Afebrile. Hemodynamically stable. Troponin bumped 14. Started on heparin drip. Sedated with propofol and fentanyl drips. Arousable the ventilator and is very agitated will attempt to withdrawal tube. PEEP down to 5. 06/22: Sedated, orally intubated on mechanical ventilation. Gets agitated unenlightening sedation so Precedex added in addition to propofol and fentanyl. CPAP trials ongoing to decide extubation. Cardiac cath postponed by Dr. Noonan in view of questionable neurologic status. 06/23: Patient was extubated yesterday however was requiring significant amount of O2 post extubation with a facemask as well as nasal cannula. This morning around 4 AM due to increased work of breathing and hypoxia he was reintubated by Dr. Lino and placed back on mechanical ventilation. Currently he is sedated , orally intubated on mechanical ventilation. Postintubation chest x-ray shows ET tube in appropriate position and pulmonary edema pattern with perihilar infiltrates bilaterally. 06/24: Remains sedated, orally intubated on mechanical ventilation. 06/25: Remains sedated, orally intubated on mechanical ventilation. 06/26: Remains sedated, orally intubated on mechanical ventilation. Pacer backup rate increased to 60/min yesterday due to hypotension. Awaiting cardiac catheterization. 06/27: Sedated, orally intubated on mechanical ventilation. Underwent cardiac catheterization which revealed nonobstructive CAD. Patient has nonischemic dilated cardiomyopathy per discussion with Dr. Noonan. Initiated dobutamine 2.5 mics per KG per minute on 06/26. Filling pressures not elevated per Dr. Noonan on cardiac cath. 06/28: Sedated, arousable, orally intubated on mechanical ventilation. IV hydrocortisone switched to Solu-Medrol yesterday. Pulmonary consult with Dr. Villegas as patient appears to have significant COPD in addition to cardiomyopathy. Remains on dobutamine at 1.5 mics per KG per minute. Diuresing well. Does not appear to be fluid overloaded at this time. Daily CPAP trials ongoing. 06/29: Remains intubated sedated with Precedex and fentanyl. Remains on dobutamine. Patient is able to track and follow some commands. CXR appears clear today 06/30 Remains intubated and on low dose dobutamine 1.25 mcg/kg/min. Will place on sedation vacation and CPAP trial and plan for trial of extubation as tolerated. Has continued diuresis and CXR is now clear of edema. 07/01: 07/01 Tolerates CPAP. Mental status currently seems limiting factor to extubation but there is some improvement compared with yesterday. Now on seroquel, off fentanyl drip ( states opioids have historically caused delirium for him). On precedex as needed, weaning down. Yesterday he was staring ahead, roving head movements, wild-eyed expressions as if hallucinating , very weak in all extremities. Today he does NOT follow commands but by this evening he does track, moves extremities vigorously and purposefully, strong cough, lifts head up off bed. Appears he will soon be appropriate for trial of extubation but will wait in effort to optimize to full ability, as failure of extubation trial will necessitate trach (currently day #9 following reintubation) is aware. 07/02: No events over the night. The patient tolerated CPAP this a.m. but he became increasingly agitated and tachypneic, currently now back on full support. Sedation is achieved with dexmedetomidine at 1. T-max of 99.1. I/O 4575/3200. 07/03: Episode of agitation over the night requiring increasing Precedex and dose of Ativan. This a.m. patient on dexmedetomidine at 1.4 sedated arousable, not following commands. T-max of 100.4. Urine output of 1400 mL's over the last 24 hours. 07/04: No events over the night. Patient tolerated CPAP yesterday for approximately 6 hours however mental status remains poor. T-max of 100.4 yesterday morning, afebrile since then. Diuresed great over the last 24 hours, 4625 mL's since yesterday, almost 2.5 L negative fluid balance. CT abdomen and pelvis not yet done. 07/05: No events over the night. CT abdomen and pelvis report reviewed, cecum dilation up to 10 cm. Tube feeds were stopped and NG tube was placed on low intermittent wall suction. Patient remains altered with episodes of severe agitation. Currently on Precedex at 0.8. T-max of 100.5 yesterday at noon, afebrile since then. Urine output remains adequate. I/O 3035/1850. 07/06: Patient did well over the night. T-max of 99.8. Hypotension resolved yesterday after fluid bolus administration. I/O 2170/2475. I had long discussion yesterday with the and the family is leaning towards trach. This morning patient on Precedex at 1.5, fully awake, intermittently following some commands. 07/07: Episode of hypoglycemia this morning down to 44. Dextrose given. Patient remains awake, intermittently follows simple commands, on dexmedetomidine at 1.5. Patient remains afebrile, with a T-max of 98.4. I/O 1230/2550. NGT remains at low intermittent wall suction and after GoLYTELY rectal tube was placed on suction with significant amount of drainage. Subjective 07/08: Currently afebrile. Positive BM overnight. Currently on PST trial. NG tube to lower intermittent wall suction and rectal tube to suction. 07/09 No events overnight. Remains intubated and on Precedex drip . Afebrile. 07/10 Patient s/p extubation yesterday on 3L oxygen Precdex restarted overnight for agitation. Afebrile. Objective Vital Signs / I&O: Vital Signs 07/09/18 08:25 07/09/18 08:46 07/09/18 10:00 Temperature Pulse Rate 62 79 Respiratory Rate 12 17 Blood Pressure Pulse Oximetry 100 07/09/18 10:14 07/09/18 12:00 07/09/18 14:00 Temperature 98.4 F 98.5 F Pulse Rate 72 79 Respiratory Rate 18 18 Blood Pressure 139/83 Pulse Oximetry 95 98 99 07/09/18 15:00 07/09/18 16:00 07/09/18 18:00 Temperature 99.0 F Pulse Rate 84 89 89 Respiratory Rate 25 H 19 Blood Pressure 146/79 H Pulse Oximetry 100 07/09/18 20:00 07/09/18 20:25 07/09/18 22:00 Temperature 98.2 F Pulse Rate 89 87 86 Respiratory Rate 27 H 16 Blood Pressure 145/63 H Pulse Oximetry 98 98 07/10/18 00:00 07/10/18 02:00 07/10/18 03:48 Temperature 99.3 F Pulse Rate 82 79 60 Respiratory Rate 36 H 16 Blood Pressure 130/63 Pulse Oximetry 97 07/10/18 04:00 07/10/18 06:00 Temperature 97.9 F Pulse Rate 66 73 Respiratory Rate 22 Blood Pressure 110/56 L Pulse Oximetry 98 Intake & Output 07/09/18 07/10/18 07/10/18 18:59 06:59 18:59 Intake Total 360 / 360 1700 / 1700 Output Total 1400 / 1400 1750 / 1750 Balance -1040 / -1040 -50 / -50 Weight 62.5 kg Intake: IV 360 / 360 100 / 100 Precedex Inj 1,000 MCG In NS 100 / 100 Inj 240 ML @ 0.2 MCG/KG/HR 3.6 mls/hr IV.CONT TITRATE PRN Rx#: [id number] Precedex Inj 200 MCG In NS Inj 100 / 100 48 ML @ 0.1 MCG/KG/HR 1.58 mls/ hr IV.CONT TITRATE PRN Rx#: [id number] Potassium Phosphate Inj 30 MMOL 260 / 260 In NS Inj 250 ML @ 42 mls/hr IV.SIG UNSCH PRN Rx#:[id number] Oral 0 / 0 Tube Feeding 1200 / 1200 Tube Irrigant 0 / 0 Water Bolus Amount 400 / 400 Other 0 / 0 Output: Urine 0 / 0 Stool 400 / 400 0 / 0 Urine Amount (Catheter) 1000 / 1000 1750 / 1750 3-way Urethral 0 / 0 Indwelling Urethral Catheter 1000 / 1000 1750 / 1750 Gastric Drainage 0 / 0 Left Nare Nasogastric Tube 0 / 0 Other: Date of Last Bowel Movement 07/09/18 07/10/18 # Bowel Movements 3 6 Result Diagrams: 07/10/18 04:21 07/10/18 04:21 Other Results: Laboratory Results - last 12 hr 07/09/18 07/09/18 07/09/18 20:04 20:07 23:39 WBC RBC Hgb Hct MCV MCH MCHC RDW Plt Count MPV Prelim Diff (Auto) Neut % (Auto) Lymph % (Auto) [place] % (Auto) Eos % (Auto) Baso % (Auto) Neut # (Auto) Lymph # (Auto) [place] # (Auto) Eos # (Auto) Baso # (Auto) WBC Differential Diff Scan Differential Comment Platelet Estimate Platelet Morphology Sodium Potassium 3.3 L Chloride Carbon Dioxide Anion Gap BUN Creatinine Estimated GFR POC Glucose 296 H 212 H Random Glucose Calcium Phosphorus 3.8 D Magnesium Total Bilirubin AST ALT Alkaline Phosphatase Total Protein Albumin 07/10/18 07/10/18 07/10/18 04:21 04:21 04:38 WBC 8.4 RBC 3.02 L Hgb 9.5 L Hct 28.0 L MCV 92.6 MCH 31.4 MCHC 33.9 RDW 15.5 Plt Count 71 L MPV 10.9 Prelim Diff (Auto) Slide review pending Neut % (Auto) 85.2 H Lymph % (Auto) 8.9 L Austin % (Auto) 5.4 Eos % (Auto) 0.0 Baso % (Auto) 0.5 Neut # (Auto) 7.2 Lymph # (Auto) 0.8 L Austin # (Auto) 0.5 Eos # (Auto) 0.0 Baso # (Auto) 0.0 WBC Differential . Diff Scan Auto diff confirmed Differential Comment . Platelet Estimate Low L Platelet Morphology Enlarged H Sodium 143 Potassium 3.9 Chloride 108 H Carbon Dioxide 25.1 Anion Gap 10 BUN 20 H Creatinine 0.90 Estimated GFR 83 L POC Glucose 125 H Random Glucose 97 D Calcium 7.9 L Phosphorus 2.4 L D Magnesium 1.9 Total Bilirubin 0.7 AST 92 H ALT 122 H Alkaline Phosphatase 113 Total Protein 5.9 L Albumin 2.1 L Imaging: Abdomen/Bladder Ultrasound 06/21/18 00:00 CONCLUSION: 1. Increased echogenicity of both kidneys typical of chronic parenchymal disease. 2. No evidence of acute obstructive uropathy. 3. Bilateral benign appearing renal cysts. Abdomen/Pelvis CT 07/04/18 00:00 CONCLUSION: The bulging in the right lower quadrant is related to distention of the cecum. Head CT 07/04/18 00:00 CONCLUSION: 1. No acute intracranial abnormality is identified. Stable chronic findings include generalized atrophy and chronic periventricular white matter change. 2. Increased fluid in the right mastoid air cells and mild but new mucoperiosteal thickening in the ethmoid and sphenoid sinus. . Abdomen X-Ray 07/09/18 00:00 CONCLUSION: Persistent distention of the cecum not significantly changed. Chest X-Ray 07/09/18 06:00 CONCLUSION: No significant change mild patchy consolidation of both bases. Objective Remarks: GENERAL: Patient is 72 yo lying in bed in NAD SKIN: Warm and dry. HEAD: Normocephalic. EYES: No scleral icterus. No injection or drainage. NECK: Supple, trachea midline. No JVD or lymphadenopathy. CARDIOVASCULAR: Regular rate and rhythm without murmurs, gallops, or rubs. RESPIRATORY: Breath sounds equal bilaterally. No accessory muscle use. GASTROINTESTINAL: Abdomen soft, non-tender, nondistended. MUSCULOSKELETAL: No cyanosis, or edema. Neuro: Awake. Assessment and Plan - Assessment and Plan Plan: Assessment: REsp failure- extubated 07/09 Acute decompensated CHF - systolic and diastolic EF 20% -appears euvolemic Staph aureus pneumonia -afebrile over the last 48 hours Dilated cardiomyopathy Atrial fibrillation -rate controlled Non-STEMI FIDE -creatinine normalizing, urine output remains adequate Hypernatremia -resolved Thrombocytopenia -unchanged Adynamic ileus - ?Ogylvie -distention is improved DM -episode of hypoglycemia this a.m. B/L carotid Stenosis 40-59% Erectile Dysfunction PAD LBBB- chronic Hypertension COPD History of pacemaker/defibrillator placement Hyperlipidemia Glaucoma Normocytic anemia Elevated transaminases Plan: Neuro: -Seroquel 25mg bid -Monitor neuro status and wean off Precedex drip, -[id number] mg 3 times daily/home medications -Gabapentin at 300 mg every 8 hourly has been on hold. Continue brimonidine 0.15% 2 times daily Cardiovascular: -Non-ST elevation NH. cardiology Dr. Noonan following for decompensated CHF, history of cardiomyopathy and positive troponin. -A. fib appears rate controlled. Continue aspirin 162 mg daily. metoprolol tartrate 6.25 mg twice daily. -No ENA inhibitor secondary to acute kidney injury. Off heparin GTT. Holding cilostazol 50 mg twice daily. Simvastatin 20 mg daily/40 mg pravastatin substituted. -Cardiac cath per Dr. Noonan. Angiographically mild to moderate 3-vessel coronary artery disease. EF 20%. -Gentle diuresis with furosemide 40 mg daily Pulmonary: -Continue with oxygen keep sats >92% -Albuterol/ipratropium every 6 hours with every 4 hours as needed dyspnea. -Solucortef 100mg IV daily -Pulm consult Dr. Shayy Villegas following for COPD GI/liver: -Tube feeds Glucerna 1.5 goal rate 55 mL/h - -KUB 07/09: Persistent distention of the cecum not significantly changed. -GI is following Continue with twice daily docusate sodium/senna, lactulose. FEN/Renal/: -Continue free water to 200 every 6 hours -Monitor renal function, electrolytes replacement per protocol. -D/c IVF ID: -Completed 14 days of cefepime, stopped on 07/04 -Sputum cultures 07/03 and 07/07 growing MSSA/Klebsiella. Stopped Zyvox on 06/26 -Repeat sputum culture sent on 07/03 growing staph aureus and gram-negative bacilli. In the absence of fever and leukocytosis we will hold antibiotics for now. If any signs of the compensation of recurrent fever we will start broad- spectrum antibiotics Heme: -Thrombocytopenia Dr. Campa following. HIT screen negative. - Continue Lovenox 40 mg subcutaneous daily DVT prophylaxis. Endocrine: SSI for glycemic control Prophylaxis: Lansoprazole/SCDs. Continue enoxaparin 40 mg subcutaneous daily for DVT prophylaxis. Palliative care is following Will sign of and [facility] to [facility]
[2018-07-10] MEDS: Metoprolol Tartrate 25 MG Tablet PO SCH ×2 (08:13→20:52)
[2018-07-10] MEDS: QUEtiapine 25 MG Tablet NG/OG SCH ×2 (08:13→12:41)
[2018-07-10] MEDS: Brimonidine 0.15% Opth Drops 5 ML Bottle EACH EYE SCH ×2 (08:13→20:46)
[2018-07-10] MEDS: Enoxaparin Inj 40 MG/0.4 ML Syringe SQ SCH (08:14)
[2018-07-10] MEDS: Senna/Docusate Sodium 8.6/50 MG Tablet PO SCH ×2 (08:16→20:52)
[2018-07-10] MEDS: Hypromellose 0.3% Opth Gel 10 GM Bottle EACH EYE SCH ×2 (08:16→20:46)
[2018-07-10] MEDS: Bisacodyl 10 MG Supp RECTAL SCH (08:16)
--- NOTE | 2018-07-10 09:06 | XR ---
EXAM DATE: 07/10/2018 8:21 AM EDT AGE/SEX: 72 years / Male INDICATIONS: Constipation. CLINICAL DATA: This is the patient's initial encounter. Patient reports that signs and symptoms have been present for 1 day and indicates a pain score of Nonresponsive. MEDICAL/SURGICAL HISTORY: Non-responsive. Non-responsive. COMPARISON: [facility], ABDOMEN 1V KUB, 07/09/2018. . FINDINGS: The abdominal bowel gas pattern is normal. No abnormal masses, calcifications, or organomegaly is s een. The osseous structures are unremarkable.Nasogastric tube is in the stomach. CONCLUSION: No evidence of obstruction. Electronically signed by: Lauri Ortiz MD 07/10/2018 9:05 AM EDT
--- NOTE | 2018-07-10 12:50 | P.PNCA ---
Subjective Interval history: alert, not clearly following simple commands Physical Exam Vital signs: Vital Signs 07/09/18 14:00 07/09/18 15:00 07/09/18 16:00 Temperature 98.5 F 99.0 F Pulse Rate 79 84 89 Respiratory Rate 18 25 H 19 Blood Pressure 139/83 146/79 H Pulse Oximetry 99 100 07/09/18 18:00 07/09/18 20:00 07/09/18 20:02 Temperature 98.2 F Pulse Rate 89 89 85 Respiratory Rate 27 H 35 H Blood Pressure 145/63 H 145/63 H Pulse Oximetry 98 98 07/09/18 20:25 07/09/18 21:00 07/09/18 21:01 Temperature Pulse Rate 87 100 H 98 H Respiratory Rate 16 31 H 32 H Blood Pressure 147/92 H Pulse Oximetry 98 95 97 07/09/18 22:00 07/09/18 22:01 07/09/18 23:00 Temperature Pulse Rate 86 86 78 Respiratory Rate 30 H 28 H 32 H Blood Pressure 134/62 120/56 L Pulse Oximetry 97 98 98 07/10/18 00:00 07/10/18 00:01 07/10/18 00:13 Temperature 99.3 F Pulse Rate 82 77 70 Respiratory Rate 36 H 25 H 22 Blood Pressure 130/63 93/51 L 130/63 Pulse Oximetry 97 100 98 07/10/18 00:30 07/10/18 01:00 07/10/18 01:01 Temperature Pulse Rate 69 71 73 Respiratory Rate 37 H 28 H 27 H Blood Pressure 118/58 L 127/56 L Pulse Oximetry 98 97 98 07/10/18 01:30 07/10/18 02:00 07/10/18 02:30 Temperature Pulse Rate 77 79 65 Respiratory Rate 20 27 H 26 H Blood Pressure 122/56 L 115/55 L 110/54 L Pulse Oximetry 98 98 99 07/10/18 03:00 07/10/18 03:30 07/10/18 03:48 Temperature Pulse Rate 71 73 60 Respiratory Rate 27 H 23 16 Blood Pressure 107/54 L 100/52 L Pulse Oximetry 99 98 07/10/18 04:00 07/10/18 04:01 07/10/18 04:37 Temperature 97.9 F Pulse Rate 66 68 77 Respiratory Rate 22 18 29 H Blood Pressure 110/56 L 110/56 L 123/70 Pulse Oximetry 98 98 97 07/10/18 05:00 07/10/18 05:57 07/10/18 06:00 Temperature Pulse Rate 80 70 73 Respiratory Rate 30 H 28 H 30 H Blood Pressure 135/60 Pulse Oximetry 98 98 98 07/10/18 07:00 07/10/18 07:01 07/10/18 08:00 Temperature 98.4 F Pulse Rate 71 75 69 Respiratory Rate 28 H 27 H 23 Blood Pressure 138/65 Pulse Oximetry 97 98 97 07/10/18 08:01 07/10/18 09:00 07/10/18 09:01 Temperature Pulse Rate 68 77 Respiratory Rate 26 H 32 H Blood Pressure 131/61 140/64 Pulse Oximetry 98 99 98 07/10/18 10:00 07/10/18 11:00 07/10/18 11:01 Temperature Pulse Rate 74 77 79 Respiratory Rate 22 40 H 26 H Blood Pressure 137/63 135/59 L Pulse Oximetry 98 98 98 Intake & Output 07/09/18 07/10/18 07/10/18 18:59 06:59 18:59 Intake Total 360 / 360 1700 / 1700 Output Total 1400 / 1400 1750 / 1750 Balance -1040 / -1040 -50 / -50 Weight 62.5 kg Intake: IV 360 / 360 100 / 100 Precedex Inj 1,000 MCG In NS 100 / 100 Inj 240 ML @ 0.2 MCG/KG/HR 3.6 mls/hr IV.CONT TITRATE PRN Rx#: [id number] Precedex Inj 200 MCG In NS Inj 100 / 100 48 ML @ 0.1 MCG/KG/HR 1.58 mls/ hr IV.CONT TITRATE PRN Rx#: [id number] Potassium Phosphate Inj 30 MMOL 260 / 260 In NS Inj 250 ML @ 42 mls/hr IV.SIG UNSCH PRN Rx#:[id number] Oral 0 / 0 Tube Feeding 1200 / 1200 Tube Irrigant 0 / 0 Water Bolus Amount 400 / 400 Other 0 / 0 Output: Urine 0 / 0 Stool 400 / 400 0 / 0 Urine Amount (Catheter) 1000 / 1000 1750 / 1750 3-way Urethral 0 / 0 Indwelling Urethral Catheter 1000 / 1000 1750 / 1750 Gastric Drainage 0 / 0 Left Nare Nasogastric Tube 0 / 0 Other: Date of Last Bowel Movement 07/09/18 07/10/18 07/10/18 # Bowel Movements 3 6 - Urinary Catheter Management Indwelling Urethral Catheter Cath placed during this visit: yes Reason for continuing: Acute urinary retention Insertion date: 06/20/18 Insertion time: 21:24 3-way Urethral Cath placed during this visit: yes Reason for continuing: Acute urinary retention Insertion date: 07/06/18 Insertion time: 18:00 Assessment and Plan - Assessment (1) Cardiomyopathy Code(s): I42.9 - Cardiomyopathy, unspecified Status: Acute (2) Cardiomyopathy Code(s): I42.9 - Cardiomyopathy, unspecified Status: Acute (3) PVD (peripheral vascular disease) Code(s): I73.9 - Peripheral vascular disease, unspecified Status: Acute (4) PVD (peripheral vascular disease) Code(s): I73.9 - Peripheral vascular disease, unspecified Status: Acute (5) Tobacco abuse Code(s): Z72.0 - Tobacco use Status: Acute (6) Respiratory failure Code(s): J96.90 - Respiratory failure, unspecified, unspecified whether with hypoxia or hypercapnia Status: Acute (7) Non-ST elevated myocardial infarction (non-STEMI) Code(s): I21.4 - Non-ST elevation (NSTEMI) myocardial infarction Status: Acute (8) Pulmonary edema cardiac cause Code(s): I50.1 - Left ventricular failure, unspecified Status: Acute - Plan 1.) NICM - end stage, euvolemic, refuses in state transfer, requesting transfer to [facility], d/w Dr Solis; beta ana and hellen held due to hypotension, diuresing to optimize potential extubation, he has hypernatremia 2.) CAD - nonobstructive, continue aspirin, pravachol 3.) Encephalopathy - moderate per EEG on sedation, neuro following 4.) d/w case with at the bedside 07/04/18 5.) Respiratory failure - he is euvolemic, appears to be due to pulmonary and/ or encephalopathic etilology, extubated 07/09/18 but restrained and not following commands, will follow trends in mental and respiratory status, d/w at the bedside 07/09/18 (6) Respiratory failure Qualifiers: Qualified Code(s): J96.01 - Acute respiratory failure with hypoxia
--- NOTE | 2018-07-10 12:51 | P.PNPAL ---
Reason for Visit Reason for visit: a. To assist with evaluation and management of symptoms including: dyspnea, pain, agitation, constipation b. To assist medical decision maker(s) with: better understanding of current medical conditions; weighing benefits/burdens of medical treatment options; making medical treatment decisions. Subjective Subjective/Interval History: Pt resting in bed. Extubated yesterday. BUE restraints. He is looking around the room, appears mildly anxious. He shakes his head repeatedly. He is largely unable to follow commands. he can squeeze my hand with his left hand but not right. Failed swallow eval. On precedex for agitation. on 3L o2via NC. Sat 94. He is nonverbal and does not answer questions about pain but he does not appear to be in pain and had no tenderness on exam. s/p admin GoLytely, pt subsequently had stool and KUB 8/28 improved. Family/Friend Interactions: at bedside. She is asking to speak to handle sander operator. She is frustrated her is confused. REaddressed code status, she indicates she would not want him reintubated but wants to speak with the handle sander operator before making that decision. Objective Vital Signs: Vital Signs 07/09/18 14:00 07/09/18 15:00 07/09/18 16:00 Temperature 98.5 F 99.0 F Pulse Rate 79 84 89 Respiratory Rate 18 25 H 19 Blood Pressure 139/83 146/79 H Pulse Oximetry 99 100 07/09/18 18:00 07/09/18 20:00 07/09/18 20:02 Temperature 98.2 F Pulse Rate 89 89 85 Respiratory Rate 27 H 35 H Blood Pressure 145/63 H 145/63 H Pulse Oximetry 98 98 07/09/18 20:25 07/09/18 21:00 07/09/18 21:01 Temperature Pulse Rate 87 100 H 98 H Respiratory Rate 16 31 H 32 H Blood Pressure 147/92 H Pulse Oximetry 98 95 97 07/09/18 22:00 07/09/18 22:01 07/09/18 23:00 Temperature Pulse Rate 86 86 78 Respiratory Rate 30 H 28 H 32 H Blood Pressure 134/62 120/56 L Pulse Oximetry 97 98 98 07/10/18 00:00 07/10/18 00:01 07/10/18 00:13 Temperature 99.3 F Pulse Rate 82 77 70 Respiratory Rate 36 H 25 H 22 Blood Pressure 130/63 93/51 L 130/63 Pulse Oximetry 97 100 98 07/10/18 00:30 07/10/18 01:00 07/10/18 01:01 Temperature Pulse Rate 69 71 73 Respiratory Rate 37 H 28 H 27 H Blood Pressure 118/58 L 127/56 L Pulse Oximetry 98 97 98 07/10/18 01:30 07/10/18 02:00 07/10/18 02:30 Temperature Pulse Rate 77 79 65 Respiratory Rate 20 27 H 26 H Blood Pressure 122/56 L 115/55 L 110/54 L Pulse Oximetry 98 98 99 07/10/18 03:00 07/10/18 03:30 07/10/18 03:48 Temperature Pulse Rate 71 73 60 Respiratory Rate 27 H 23 16 Blood Pressure 107/54 L 100/52 L Pulse Oximetry 99 98 07/10/18 04:00 07/10/18 04:01 07/10/18 04:37 Temperature 97.9 F Pulse Rate 66 68 77 Respiratory Rate 22 18 29 H Blood Pressure 110/56 L 110/56 L 123/70 Pulse Oximetry 98 98 97 07/10/18 05:00 07/10/18 05:57 07/10/18 06:00 Temperature Pulse Rate 80 70 73 Respiratory Rate 30 H 28 H 30 H Blood Pressure 135/60 Pulse Oximetry 98 98 98 07/10/18 07:00 07/10/18 07:01 07/10/18 08:00 Temperature 98.4 F Pulse Rate 71 75 69 Respiratory Rate 28 H 27 H 23 Blood Pressure 138/65 Pulse Oximetry 97 98 97 07/10/18 08:01 07/10/18 09:00 07/10/18 09:01 Temperature Pulse Rate 68 77 Respiratory Rate 26 H 32 H Blood Pressure 131/61 140/64 Pulse Oximetry 98 99 98 07/10/18 10:00 07/10/18 11:00 07/10/18 11:01 Temperature Pulse Rate 74 77 79 Respiratory Rate 22 40 H 26 H Blood Pressure 137/63 135/59 L Pulse Oximetry 98 98 98 Intake & Output 07/09/18 07/10/18 07/10/18 18:59 06:59 18:59 Intake Total 360 / 360 1700 / 1700 Output Total 1400 / 1400 1750 / 1750 Balance -1040 / -1040 -50 / -50 Weight 62.5 kg Intake: IV 360 / 360 100 / 100 Precedex Inj 1,000 MCG In NS 100 / 100 Inj 240 ML @ 0.2 MCG/KG/HR 3.6 mls/hr IV.CONT TITRATE PRN Rx#: [id number] Precedex Inj 200 MCG In NS Inj 100 / 100 48 ML @ 0.1 MCG/KG/HR 1.58 mls/ hr IV.CONT TITRATE PRN Rx#: [id number] Potassium Phosphate Inj 30 MMOL 260 / 260 In NS Inj 250 ML @ 42 mls/hr IV.SIG UNSCH PRN Rx#:[id number] Oral 0 / 0 Tube Feeding 1200 / 1200 Tube Irrigant 0 / 0 Water Bolus Amount 400 / 400 Other 0 / 0 Output: Urine 0 / 0 Stool 400 / 400 0 / 0 Urine Amount (Catheter) 1000 / 1000 1750 / 1750 3-way Urethral 0 / 0 Indwelling Urethral Catheter 1000 / 1000 1750 / 1750 Gastric Drainage 0 / 0 Left Nare Nasogastric Tube 0 / 0 Other: Date of Last Bowel Movement 07/09/18 07/10/18 07/10/18 # Bowel Movements 3 6 Physical Exam: SKIN: No jaundice, rashes, or lesions. No wounds seen anteriorly. Skin temperature appropriate. Not diaphoretic. HEAD: Atraumatic. Normocephalic. EYES: No scleral icterus. No injection or drainage. Fundi not examined. ENT: Nose without bleeding or purulent drainage. NGT CARDIOVASCULAR: irr HR S1 S2 S4. RESPIRATORY/CHEST: Symmetric, unlabored respirations. CTA GASTROINTESTINAL: ABD soft, nontender, BS + GENITOURINARY: Without palpable bladder distension. Nevarez catheter in place. MUSCULOSKELETAL: BUE in restraints. Extremities without clubbing, cyanosis, or edema. No mottling or clubbing. NEUROLOGICAL:opens eyes, tracks, moves upper extremities. does not follow commands. nonverbal. PSYCHIATRIC: mildly agitated Diagnostic Tests Laboratory: Laboratory Results - last 72 hr 07/07/18 07/07/18 07/07/18 16:34 19:30 23:20 WBC RBC Hgb Hct MCV MCH MCHC RDW Plt Count MPV Prelim Diff (Auto) Neut % (Auto) Lymph % (Auto) [place] % (Auto) Eos % (Auto) Baso % (Auto) Neut # (Auto) Lymph # (Auto) [place] # (Auto) Eos # (Auto) Baso # (Auto) WBC Differential Diff Scan Differential Comment Platelet Estimate Platelet Morphology Ovalocytes Keratocytes Sodium Potassium Chloride Carbon Dioxide Anion Gap BUN Creatinine Estimated GFR POC Glucose 190 H 205 H 162 H Random Glucose Calcium Phosphorus Magnesium Total Bilirubin AST ALT Alkaline Phosphatase Ammonia Total Protein Albumin 07/08/18 07/08/18 07/08/18 03:46 04:21 04:21 WBC 6.3 RBC 3.21 L Hgb 10.1 L Hct 30.7 L MCV 95.6 MCH 31.3 MCHC 32.8 RDW 15.8 Plt Count 58 L MPV 12.8 H Prelim Diff (Auto) Slide review pending Neut % (Auto) 77.6 H Lymph % (Auto) 17.3 [place] % (Auto) 4.0 Eos % (Auto) 0.9 Baso % (Auto) 0.2 Neut # (Auto) 4.9 Lymph # (Auto) 1.1 [place] # (Auto) 0.3 Eos # (Auto) 0.1 Baso # (Auto) 0.0 WBC Differential . Diff Scan Auto diff confirmed Differential Comment . Platelet Estimate Low L Platelet Morphology Normal Ovalocytes Keratocytes Sodium 143 Potassium 3.6 Chloride 109 H Carbon Dioxide 22.6 Anion Gap 11 BUN 32 H Creatinine 1.02 Estimated GFR 72 L POC Glucose 144 H Random Glucose 135 H Calcium 7.6 L Phosphorus 2.5 Magnesium 2.1 Total Bilirubin 0.6 AST 90 H ALT 115 H Alkaline Phosphatase 94 Ammonia Total Protein 5.5 L D Albumin 1.8 L 07/08/18 07/08/18 07/08/18 07:49 13:58 17:25 WBC RBC Hgb Hct MCV MCH MCHC RDW Plt Count MPV Prelim Diff (Auto) Neut % (Auto) Lymph % (Auto) [place] % (Auto) Eos % (Auto) Baso % (Auto) Neut # (Auto) Lymph # (Auto) [place] # (Auto) Eos # (Auto) Baso # (Auto) WBC Differential Diff Scan Differential Comment Platelet Estimate Platelet Morphology Ovalocytes Keratocytes Sodium Potassium Chloride Carbon Dioxide Anion Gap BUN Creatinine Estimated GFR POC Glucose 201 H 331 H 182 H Random Glucose Calcium Phosphorus Magnesium Total Bilirubin AST ALT Alkaline Phosphatase Ammonia Total Protein Albumin 07/08/18 07/09/18 07/09/18 21:16 00:17 03:23 WBC RBC Hgb Hct MCV MCH MCHC RDW Plt Count MPV Prelim Diff (Auto) Neut % (Auto) Lymph % (Auto) [place] % (Auto) Eos % (Auto) Baso % (Auto) Neut # (Auto) Lymph # (Auto) [place] # (Auto) Eos # (Auto) Baso # (Auto) WBC Differential Diff Scan Differential Comment Platelet Estimate Platelet Morphology Ovalocytes Keratocytes Sodium Potassium Chloride Carbon Dioxide Anion Gap BUN Creatinine Estimated GFR POC Glucose 177 H 190 H 215 H Random Glucose Calcium Phosphorus Magnesium Total Bilirubin AST ALT Alkaline Phosphatase Ammonia Total Protein Albumin 07/09/18 07/09/18 07/09/18 03:41 03:47 03:47 WBC 6.7 RBC 3.03 L Hgb 9.5 L Hct 28.1 L MCV 93.0 MCH 31.4 MCHC 33.8 RDW 15.6 Plt Count 56 L MPV 11.1 H Prelim Diff (Auto) Slide review pending Neut % (Auto) 84.8 H Lymph % (Auto) 11.4 [place] % (Auto) 2.5 Eos % (Auto) 0.7 Baso % (Auto) 0.6 Neut # (Auto) 5.7 Lymph # (Auto) 0.8 L [place] # (Auto) 0.2 Eos # (Auto) 0.0 Baso # (Auto) 0.0 WBC Differential . Diff Scan Auto diff confirmed Differential Comment . Platelet Estimate Low L Platelet Morphology Normal Ovalocytes 1+ H Keratocytes Occ H Sodium 140 Potassium 3.0 L Chloride 105 Carbon Dioxide 23.0 Anion Gap 12 BUN 24 H Creatinine 1.04 Estimated GFR 71 L POC Glucose Random Glucose 208 H Calcium 7.7 L Phosphorus 2.3 L Magnesium 1.9 Total Bilirubin 0.7 AST 71 H ALT 103 H Alkaline Phosphatase 91 Ammonia 23 Total Protein 5.6 L Albumin 2.0 L 07/09/18 07/09/18 07/09/18 08:46 17:30 20:04 WBC RBC Hgb Hct MCV MCH MCHC RDW Plt Count MPV Prelim Diff (Auto) Neut % (Auto) Lymph % (Auto) [place] % (Auto) Eos % (Auto) Baso % (Auto) Neut # (Auto) Lymph # (Auto) [place] # (Auto) Eos # (Auto) Baso # (Auto) WBC Differential Diff Scan Differential Comment Platelet Estimate Platelet Morphology Ovalocytes Keratocytes Sodium Potassium Chloride Carbon Dioxide Anion Gap BUN Creatinine Estimated GFR POC Glucose 192 H 297 H 296 H Random Glucose Calcium Phosphorus Magnesium Total Bilirubin AST ALT Alkaline Phosphatase Ammonia Total Protein Albumin 07/09/18 07/09/18 07/10/18 20:07 23:39 04:21 WBC 8.4 RBC 3.02 L Hgb 9.5 L Hct 28.0 L MCV 92.6 MCH 31.4 MCHC 33.9 RDW 15.5 Plt Count 71 L MPV 10.9 Prelim Diff (Auto) Slide review pending Neut % (Auto) 85.2 H Lymph % (Auto) 8.9 L [place] % (Auto) 5.4 Eos % (Auto) 0.0 Baso % (Auto) 0.5 Neut # (Auto) 7.2 Lymph # (Auto) 0.8 L [place] # (Auto) 0.5 Eos # (Auto) 0.0 Baso # (Auto) 0.0 WBC Differential . Diff Scan Auto diff confirmed Differential Comment . Platelet Estimate Low L Platelet Morphology Enlarged H Ovalocytes Keratocytes Sodium Potassium 3.3 L Chloride Carbon Dioxide Anion Gap BUN Creatinine Estimated GFR POC Glucose 212 H Random Glucose Calcium Phosphorus 3.8 D Magnesium Total Bilirubin AST ALT Alkaline Phosphatase Ammonia Total Protein Albumin 07/10/18 07/10/18 07/10/18 04:21 04:38 08:10 WBC RBC Hgb Hct MCV MCH MCHC RDW Plt Count MPV Prelim Diff (Auto) Neut % (Auto) Lymph % (Auto) [place] % (Auto) Eos % (Auto) Baso % (Auto) Neut # (Auto) Lymph # (Auto) [place] # (Auto) Eos # (Auto) Baso # (Auto) WBC Differential Diff Scan Differential Comment Platelet Estimate Platelet Morphology Ovalocytes Keratocytes Sodium 143 Potassium 3.9 Chloride 108 H Carbon Dioxide 25.1 Anion Gap 10 BUN 20 H Creatinine 0.90 Estimated GFR 83 L POC Glucose 125 H 226 H Random Glucose 97 D Calcium 7.9 L Phosphorus 2.4 L D Magnesium 1.9 Total Bilirubin 0.7 AST 92 H ALT 122 H Alkaline Phosphatase 113 Ammonia Total Protein 5.9 L Albumin 2.1 L Result Diagrams: 07/10/18 04:21 07/10/18 04:21 Microbiology: Microbiology 07/07/18 18:26 Gram Stain - Final Sputum - Endotracheal Sputum Culture - Final Staphylococcus aureus Klebsiella pneumoniae 07/03/18 07:44 Aerobic Blood Culture - Final Blood - Peripheral No growth in 5 days Anaerobic Blood Culture - Final No growth in 5 days 07/03/18 07:49 Aerobic Blood Culture - Final Blood - Peripheral No growth in 5 days Anaerobic Blood Culture - Final No growth in 5 days Procedures: 06/23 reintubated 06/26 heart cath 07/09 extubated Assessment and Plan - Disease Oriented Problem List (1) Respiratory failure (2) Non-ST elevated myocardial infarction (non-STEMI) (3) Cardiomyopathy (4) PVD (peripheral vascular disease) (5) Tobacco abuse (6) Constipation - Symptom Scale (1) Dyspnea 0-10 Scale: Unable to quantify (2) Pain 0-10 Scale: Unable to quantify Pertinent Non-Medical Issues: Psychosocial: Pt originally from [place]. with 4 kids. 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 Spiritual: worship. decline ben day artist visit. Legal: Per [place] statute is proxy decision maker. Ethical issues impacting care: none Important Contacts: Kristine Avila, - [phone] Prognosis: This is a 72-year-old male with history CHF, COPD, tobacco abuse, diabetes who presented 06/20 [place] has a defibrillator implanted. His baseline ejection fraction is 25% and he is now at less than 20%. Patient reintubated 06/23, extubated . Had cardiac cath 06/26 with finding 3 vessel CAD, non ischemic dilated cardiomyopathy. Unclear if he is candidate for heart transplant d/t significant COPD. He is at high risk for continued complications and decline. Code Status: Full Code Plan: - LEGAL DECISON MAKER -patient is incapacitated to make medical decisions. Per [place] statutes his proxy decision maker - CODE STATUS-full code - GOALS - Goals aggressive. Pt extubated, unsure if she would want him reintubated. - SYMPTOMS - * pain - multifactorial- prolonged bedbound status, mult tubes and lines, had ileus, now with sores on buttocks. chest pain prior to admission. ileus is improved. has PRN fentanyl 50 mcg IV, has not been administered. at this time defer pain mgmt to [facility] * constipation - last BM 07/03, now with ileus. RUQ distended and semifirm. KUB showing persistent stool ascending colon. s/p admin golytely for cecal ileus , this is now improved. * dyspnea -reintubated 06/23. extubated 07/09. Recent N STEMI. EF < 20% . s/p cardiac cath 06/26 findings 3 vessel CAD, nonischemic dilated cardiomyopathy. pulmonology consulted for significant COPD. vent weaning difficult 2/2 agitation. CV surgery consulted, not candidate at this time. pt extubated but still agitated somewhat. scheduled DuoNeb's , steroids * agitation - multlifactorial. extubated, still with agitation, still on precedex 7.93 ml/hr, 25 mg seroquel BID, baclofen. sedation per CCM - d/w RN - Palliative care will continue to follow during hospital course as condition evolves, to assist patient/decision-maker with understanding of medical conditions, weighing benefits/burdens of treatment options, for clarification of goals of treatment. Additionally will assist with any symptoms of palliative concern Attestation Attestation: To help prompt me to consider important information that might be impacting today's encounter and assessment, information from prior notes written by myself or my colleagues may have been "brought forward" into today's note. My signature on this note, however, is an attestation that I personally performed the exam, history, and/or decision-making noted today, and, unless otherwise indicated, the interactions with patient, family, and staff as well as the review of records all occurred today. I also attest that the listed assessment and stated plan reflect my best clinical judgment today based on the combination of historical information, prior notes, and today's exam/ interactions. When time spent is documented, it refers only to time spent today by the signer, or if indicated, combined time spent today by collaborating physician/nurse practitioner.
[2018-07-10] MEDS: Hydrocortisone Sod Succinate 100 MG Vial IV.PUSH SCH (13:40)
--- NOTE | 2018-07-10 16:36 | P.PNGI ---
Subjective Interval history: Patient in bed, awake and alert. O2 2L nc in place, no obvious shortness of breath NG in place to LIWS. Nurse reports patient had one loose/soft brown stool this am. Appears more stable, sinus rhythm heart rate 83 <Tiffanie Lopez M - Last Filed: 07/10/18 18:05> Physical Exam Vital signs: Vital Signs 07/09/18 18:00 07/09/18 20:00 07/09/18 20:02 Temperature 98.2 F Pulse Rate 89 89 85 Respiratory Rate 27 H 35 H Blood Pressure 145/63 H 145/63 H Pulse Oximetry 98 98 07/09/18 20:25 07/09/18 21:00 07/09/18 21:01 Temperature Pulse Rate 87 100 H 98 H Respiratory Rate 16 31 H 32 H Blood Pressure 147/92 H Pulse Oximetry 98 95 97 07/09/18 22:00 07/09/18 22:01 07/09/18 23:00 Temperature Pulse Rate 86 86 78 Respiratory Rate 30 H 28 H 32 H Blood Pressure 134/62 120/56 L Pulse Oximetry 97 98 98 07/10/18 00:00 07/10/18 00:01 07/10/18 00:13 Temperature 99.3 F Pulse Rate 82 77 70 Respiratory Rate 36 H 25 H 22 Blood Pressure 130/63 93/51 L 130/63 Pulse Oximetry 97 100 98 07/10/18 00:30 07/10/18 01:00 07/10/18 01:01 Temperature Pulse Rate 69 71 73 Respiratory Rate 37 H 28 H 27 H Blood Pressure 118/58 L 127/56 L Pulse Oximetry 98 97 98 07/10/18 01:30 07/10/18 02:00 07/10/18 02:30 Temperature Pulse Rate 77 79 65 Respiratory Rate 20 27 H 26 H Blood Pressure 122/56 L 115/55 L 110/54 L Pulse Oximetry 98 98 99 07/10/18 03:00 07/10/18 03:30 07/10/18 03:48 Temperature Pulse Rate 71 73 60 Respiratory Rate 27 H 23 16 Blood Pressure 107/54 L 100/52 L Pulse Oximetry 99 98 07/10/18 04:00 07/10/18 04:01 07/10/18 04:37 Temperature 97.9 F Pulse Rate 66 68 77 Respiratory Rate 22 18 29 H Blood Pressure 110/56 L 110/56 L 123/70 Pulse Oximetry 98 98 97 07/10/18 05:00 07/10/18 05:57 07/10/18 06:00 Temperature Pulse Rate 80 70 73 Respiratory Rate 30 H 28 H 30 H Blood Pressure 135/60 Pulse Oximetry 98 98 98 07/10/18 07:00 07/10/18 07:01 07/10/18 08:00 Temperature 98.4 F Pulse Rate 71 75 69 Respiratory Rate 28 H 27 H 23 Blood Pressure 138/65 Pulse Oximetry 97 98 97 07/10/18 08:01 07/10/18 09:00 07/10/18 09:01 Temperature Pulse Rate 68 77 Respiratory Rate 26 H 32 H Blood Pressure 131/61 140/64 Pulse Oximetry 98 99 98 07/10/18 10:00 07/10/18 11:00 07/10/18 11:01 Temperature Pulse Rate 74 77 79 Respiratory Rate 22 40 H 26 H Blood Pressure 137/63 135/59 L Pulse Oximetry 98 98 98 07/10/18 12:00 07/10/18 13:00 07/10/18 14:00 Temperature Pulse Rate 72 73 79 Respiratory Rate 23 24 24 Blood Pressure 119/55 L 127/60 115/56 L Pulse Oximetry 99 99 98 07/10/18 14:44 07/10/18 15:00 07/10/18 15:08 Temperature Pulse Rate 87 91 H 97 H Respiratory Rate 22 26 H 34 H Blood Pressure 127/61 Pulse Oximetry 98 97 07/10/18 16:00 Temperature 98.2 F Pulse Rate 91 H Respiratory Rate 27 H Blood Pressure 134/60 Pulse Oximetry 97 Intake & Output 07/09/18 07/10/18 07/10/18 18:59 06:59 18:59 Intake Total 360 / 360 1700 / 1700 Output Total 1400 / 1400 1750 / 1750 Balance -1040 / -1040 -50 / -50 Weight 62.5 kg Intake: IV 360 / 360 100 / 100 Precedex Inj 1,000 MCG In NS 100 / 100 Inj 240 ML @ 0.2 MCG/KG/HR 3.6 mls/hr IV.CONT TITRATE PRN Rx#: [id number] Precedex Inj 200 MCG In NS Inj 100 / 100 48 ML @ 0.1 MCG/KG/HR 1.58 mls/ hr IV.CONT TITRATE PRN Rx#: [id number] Potassium Phosphate Inj 30 MMOL 260 / 260 In NS Inj 250 ML @ 42 mls/hr IV.SIG UNSCH PRN Rx#:[id number] Oral 0 / 0 Tube Feeding 1200 / 1200 Tube Irrigant 0 / 0 Water Bolus Amount 400 / 400 Other 0 / 0 Output: Urine 0 / 0 Stool 400 / 400 0 / 0 Urine Amount (Catheter) 1000 / 1000 1750 / 1750 3-way Urethral 0 / 0 Indwelling Urethral Catheter 1000 / 1000 1750 / 1750 Gastric Drainage 0 / 0 Left Nare Nasogastric Tube 0 / 0 Other: Date of Last Bowel Movement 07/09/18 07/10/18 07/10/18 # Bowel Movements 3 6 - Constitutional no acute distress - Routine HEENT Exam Head: Present: normocephalic - Routine Respiratory Exam Present: CTA bilaterally. Absent: accessory muscle use - Routine Cardiovascular Exam Present: S1, S2 - Routine Abdominal Exam Present: soft, normoactive bowel sounds. Absent: distended, guarding - Routine Extremities Exam Present: pulses intact. Absent: edema - Routine Skin Exam Present: dry, warm - Routine Neurological Exam Present: alert, altered mental status - Detailed Neurological Exam: Coma Scale Eye Opening: Spontaneous - Urinary Catheter Management Indwelling Urethral Catheter Cath placed during this visit: yes Urethral indwelling: Yes Reason for continuing: Acute urinary retention Insertion date: 06/20/18 Insertion time: 21:24 3-way Urethral Cath placed during this visit: yes Reason for continuing: Acute urinary retention Insertion date: 07/06/18 Insertion time: 18:00 <Tiffanie Lopez - Last Filed: 07/10/18 18:05> Vital signs: Vital Signs 07/09/18 20:25 07/09/18 21:00 07/09/18 21:01 Temperature Pulse Rate 87 100 H 98 H Respiratory Rate 16 31 H 32 H Blood Pressure 147/92 H Pulse Oximetry 98 95 97 07/09/18 22:00 07/09/18 22:01 07/09/18 23:00 Temperature Pulse Rate 86 86 78 Respiratory Rate 30 H 28 H 32 H Blood Pressure 134/62 120/56 L Pulse Oximetry 97 98 98 07/10/18 00:00 07/10/18 00:01 07/10/18 00:13 Temperature 99.3 F Pulse Rate 82 77 70 Respiratory Rate 36 H 25 H 22 Blood Pressure 130/63 93/51 L 130/63 Pulse Oximetry 97 100 98 07/10/18 00:30 07/10/18 01:00 07/10/18 01:01 Temperature Pulse Rate 69 71 73 Respiratory Rate 37 H 28 H 27 H Blood Pressure 118/58 L 127/56 L Pulse Oximetry 98 97 98 07/10/18 01:30 07/10/18 02:00 07/10/18 02:30 Temperature Pulse Rate 77 79 65 Respiratory Rate 20 27 H 26 H Blood Pressure 122/56 L 115/55 L 110/54 L Pulse Oximetry 98 98 99 07/10/18 03:00 07/10/18 03:30 07/10/18 03:48 Temperature Pulse Rate 71 73 60 Respiratory Rate 27 H 23 16 Blood Pressure 107/54 L 100/52 L Pulse Oximetry 99 98 07/10/18 04:00 07/10/18 04:01 07/10/18 04:37 Temperature 97.9 F Pulse Rate 66 68 77 Respiratory Rate 22 18 29 H Blood Pressure 110/56 L 110/56 L 123/70 Pulse Oximetry 98 98 97 07/10/18 05:00 07/10/18 05:57 07/10/18 06:00 Temperature Pulse Rate 80 70 73 Respiratory Rate 30 H 28 H 30 H Blood Pressure 135/60 Pulse Oximetry 98 98 98 07/10/18 07:00 07/10/18 07:01 07/10/18 08:00 Temperature 98.4 F Pulse Rate 71 75 69 Respiratory Rate 28 H 27 H 23 Blood Pressure 138/65 Pulse Oximetry 97 98 97 07/10/18 08:01 07/10/18 09:00 07/10/18 09:01 Temperature Pulse Rate 68 77 Respiratory Rate 26 H 32 H Blood Pressure 131/61 140/64 Pulse Oximetry 98 99 98 07/10/18 10:00 07/10/18 11:00 07/10/18 11:01 Temperature Pulse Rate 74 77 79 Respiratory Rate 22 40 H 26 H Blood Pressure 137/63 135/59 L Pulse Oximetry 98 98 98 07/10/18 12:00 07/10/18 13:00 07/10/18 14:00 Temperature Pulse Rate 72 73 79 Respiratory Rate 23 24 24 Blood Pressure 119/55 L 127/60 115/56 L Pulse Oximetry 99 99 98 07/10/18 14:44 07/10/18 15:00 07/10/18 15:08 Temperature Pulse Rate 87 91 H 97 H Respiratory Rate 22 26 H 34 H Blood Pressure 127/61 Pulse Oximetry 98 97 07/10/18 16:00 07/10/18 18:00 Temperature 98.2 F Pulse Rate 91 H 97 H Respiratory Rate 27 H Blood Pressure 134/60 Pulse Oximetry 97 Intake & Output 07/10/18 07/10/18 07/11/18 06:59 18:59 06:59 Intake Total 1700 / 1700 2163 / 2163 Output Total 1750 / 1750 1800 / 1800 Balance -50 / -50 363 / 363 Weight 62.5 kg Intake: IV 100 / 100 1350 / 1350 Precedex Inj 200 MCG In NS Inj 100 / 100 50 / 50 48 ML @ 0.1 MCG/KG/HR 1.58 mls/ hr IV.CONT TITRATE PRN Rx#: [id number] Inj 1,000 ML @ 60 mls/hr IV 800 / 800 .CONT .[id number] MONICA Rx#:[id number] NS Inj 500 ML @ Wide Open IV. 500 / 500 SIG BOLUS [facility] Rx#:[id number] Oral 0 / 0 Tube Feeding 1200 / 1200 413 / 413 Tube Irrigant 0 / 0 Water Bolus Amount 400 / 400 400 / 400 Other 0 / 0 Output: Urine 0 / 0 Stool 0 / 0 Urine Amount (Catheter) 1750 / 1750 1800 / 1800 3-way Urethral 0 / 0 Indwelling Urethral Catheter 1750 / 1750 1800 / 1800 Gastric Drainage 0 / 0 Left Nare Nasogastric Tube 0 / 0 Other: Date of Last Bowel Movement 07/10/18 07/10/18 # Bowel Movements 6 - Urinary Catheter Management Indwelling Urethral Catheter Cath placed during this visit: no 3-way Urethral Cath placed during this visit: no <Aung Garcia - Last Filed: 07/10/18 20:13> Results - Labs CBC & Chem 7: 07/10/18 04:21 07/10/18 04:21 Laboratory Results - last 24 hr 07/09/18 07/09/18 07/09/18 17:30 20:04 20:07 WBC RBC Hgb Hct MCV MCH MCHC RDW Plt Count MPV Prelim Diff (Auto) Neut % (Auto) Lymph % (Auto) [place] % (Auto) Eos % (Auto) Baso % (Auto) Neut # (Auto) Lymph # (Auto) [place] # (Auto) Eos # (Auto) Baso # (Auto) WBC Differential Diff Scan Differential Comment Platelet Estimate Platelet Morphology Sodium Potassium 3.3 L Chloride Carbon Dioxide Anion Gap BUN Creatinine Estimated GFR POC Glucose 297 H 296 H Random Glucose Calcium Phosphorus 3.8 D Magnesium Total Bilirubin AST ALT Alkaline Phosphatase Total Protein Albumin 07/09/18 07/10/18 07/10/18 23:39 04:21 04:21 WBC 8.4 RBC 3.02 L Hgb 9.5 L Hct 28.0 L MCV 92.6 MCH 31.4 MCHC 33.9 RDW 15.5 Plt Count 71 L MPV 10.9 Prelim Diff (Auto) Slide review pending Neut % (Auto) 85.2 H Lymph % (Auto) 8.9 L [place] % (Auto) 5.4 Eos % (Auto) 0.0 Baso % (Auto) 0.5 Neut # (Auto) 7.2 Lymph # (Auto) 0.8 L [place] # (Auto) 0.5 Eos # (Auto) 0.0 Baso # (Auto) 0.0 WBC Differential . Diff Scan Auto diff confirmed Differential Comment . Platelet Estimate Low L Platelet Morphology Enlarged H Sodium 143 Potassium 3.9 Chloride 108 H Carbon Dioxide 25.1 Anion Gap 10 BUN 20 H Creatinine 0.90 Estimated GFR 83 L POC Glucose 212 H Random Glucose 97 D Calcium 7.9 L Phosphorus 2.4 L D Magnesium 1.9 Total Bilirubin 0.7 AST 92 H ALT 122 H Alkaline Phosphatase 113 Total Protein 5.9 L Albumin 2.1 L 07/10/18 07/10/18 07/10/18 04:38 08:10 12:39 WBC RBC Hgb Hct MCV MCH MCHC RDW Plt Count MPV Prelim Diff (Auto) Neut % (Auto) Lymph % (Auto) [place] % (Auto) Eos % (Auto) Baso % (Auto) Neut # (Auto) Lymph # (Auto) [place] # (Auto) Eos # (Auto) Baso # (Auto) WBC Differential Diff Scan Differential Comment Platelet Estimate Platelet Morphology Sodium Potassium Chloride Carbon Dioxide Anion Gap BUN Creatinine Estimated GFR POC Glucose 125 H 226 H 242 H Random Glucose Calcium Phosphorus Magnesium Total Bilirubin AST ALT Alkaline Phosphatase Total Protein Albumin - Imaging Impressions Abdomen X-Ray 07/10/18 08:00 CONCLUSION: No evidence of obstruction. <Tiffanie Lopez - Last Filed: 07/10/18 18:05> - Labs CBC & Chem 7: 07/10/18 04:21 07/10/18 04:21 Laboratory Results - last 24 hr 07/09/18 07/09/18 07/10/18 20:07 23:39 04:21 WBC 8.4 RBC 3.02 L Hgb 9.5 L Hct 28.0 L MCV 92.6 MCH 31.4 MCHC 33.9 RDW 15.5 Plt Count 71 L MPV 10.9 Prelim Diff (Auto) Slide review pending Neut % (Auto) 85.2 H Lymph % (Auto) 8.9 L [place] % (Auto) 5.4 Eos % (Auto) 0.0 Baso % (Auto) 0.5 Neut # (Auto) 7.2 Lymph # (Auto) 0.8 L [place] # (Auto) 0.5 Eos # (Auto) 0.0 Baso # (Auto) 0.0 WBC Differential . Diff Scan Auto diff confirmed Differential Comment . Platelet Estimate Low L Platelet Morphology Enlarged H Sodium Potassium 3.3 L Chloride Carbon Dioxide Anion Gap BUN Creatinine Estimated GFR POC Glucose 212 H Random Glucose Calcium Phosphorus 3.8 D Magnesium Total Bilirubin AST ALT Alkaline Phosphatase Total Protein Albumin 07/10/18 07/10/18 07/10/18 04:21 04:38 08:10 WBC RBC Hgb Hct MCV MCH MCHC RDW Plt Count MPV Prelim Diff (Auto) Neut % (Auto) Lymph % (Auto) [place] % (Auto) Eos % (Auto) Baso % (Auto) Neut # (Auto) Lymph # (Auto) [place] # (Auto) Eos # (Auto) Baso # (Auto) WBC Differential Diff Scan Differential Comment Platelet Estimate Platelet Morphology Sodium 143 Potassium 3.9 Chloride 108 H Carbon Dioxide 25.1 Anion Gap 10 BUN 20 H Creatinine 0.90 Estimated GFR 83 L POC Glucose 125 H 226 H Random Glucose 97 D Calcium 7.9 L Phosphorus 2.4 L D Magnesium 1.9 Total Bilirubin 0.7 AST 92 H ALT 122 H Alkaline Phosphatase 113 Total Protein 5.9 L Albumin 2.1 L 07/10/18 12:39 WBC RBC Hgb Hct MCV MCH MCHC RDW Plt Count MPV Prelim Diff (Auto) Neut % (Auto) Lymph % (Auto) [place] % (Auto) Eos % (Auto) Baso % (Auto) Neut # (Auto) Lymph # (Auto) [place] # (Auto) Eos # (Auto) Baso # (Auto) WBC Differential Diff Scan Differential Comment Platelet Estimate Platelet Morphology Sodium Potassium Chloride Carbon Dioxide Anion Gap BUN Creatinine Estimated GFR POC Glucose 242 H Random Glucose Calcium Phosphorus Magnesium Total Bilirubin AST ALT Alkaline Phosphatase Total Protein Albumin - Imaging Impressions Abdomen X-Ray 07/10/18 08:00 CONCLUSION: No evidence of obstruction. <Aung Garcia - Last Filed: 07/10/18 20:13> Assessment and Plan - Plan History Constipation 72-year-old male initially from the [facility] under the hospital with shortness of breath and was intubated due to hypoxemia. Patient was noted to have no bowel movement in 2 days and GI was consulted to assist with any symptoms and his constipation. KUB initially showed some distention in the cecum. Repeat KUB today still shows persistent stool in the ascending colon. Patient's currently being managed on ventilator and is in atrial fibrillation with RVR as well as paced rhythm. NG tube is connected to low intermittent suction, patient has mild sedation on board gastroenterology was consulted to assist with his constipation. Patient has round taut, abdomen with minimal hypoactive bowel sounds in his lower quadrants, no bowel sounds in the upper quadrants. Dependent on patient's response to Dulcolax suppository may need follow-up KUBs in the next 24-48 hours, The GoLYTELY has had its effects physical examination shows a less distended abdomen although KUB still shows mild dilation of the cecum but not to the same level as before 07/09/2018 KUB reviewed this a.m. which still shows persistent distention of the cecum without a lot of acute changes. Patient continues with rectal Nevarez and according to nurse she has had approximately 300 cc output this a.m. Abdomen is soft nontender to light palpation. No acute nausea or vomiting and NG tube also to low intermittent suction. Patient remains in the intensive care setting but has been extubated this morning to 100% nonrebreather patient's eyes are open and appears to be looking around but is not responding to any verbal stimuli. Continue bowel regimen for now and monitor rectal output. As long as stool is then will also continue rectal Nevarez. Continue NG tube, patient still noted with cecum distention. 07/10/18- Pt in bed awake alert. O2nc @2l in place. NG tube noted in place. Nurse reports patient had loose/soft stool this am, no obvious blood reported. Abdomen soft with positive bowel sounds. KUB this am --> The abdominal bowel gas pattern is normal. No abnormal masses, calcifications, or organomegaly is seen. The osseous structures are unremarkable. Nasogastric tube is in the stomach. No evidence of obstruction. Based on KUB results, will start trickle feedings at 10 ml/hour with a goal rate of 55ml/hour as per nutritional assessment note on 07/05/18. Currently appears that distended cecal area has resolved. We will continue to monitor symptoms and bowel regimen needed. Patient being followed per speech therapy which continues to recommend n.p.o. status. Dependent on patient's ability to swallow may need PEG tube in the future. Plan N.p.o. Will start tube feedings as per nutritional assessment, Glucerna 1.5 at 10 cc an hour, trickle feeds, increase per toleration and hold for any high volumes Monitor labs and any obvious bleeding Continue daily lactulose for now and monitor for any symptoms of constipation Continue with bowel regimen Any further recommendations to follow Patient was seen per myself and Dr. Garcia, note was written on his behalf <Tiffanie Lopez - Last Filed: 07/10/18 18:05> - Plan Seen and examined with [employer], illeus resolved. TF as tolerated. GI will sign off , reconsult as needed. Thank you The exam, history, and the medical decision-making described in the above note were completed with the assistance of the mid-level provider. I reviewed and agree with the findings presented. I attest that I had a [id number] encounter with the patient on the same day, and personally performed and documented my assessment and findings in the medical record. <uAng Garcia - Last Filed: 07/10/18 20:13>
[2018-07-10] MEDS: Dextrose 5% in Water Inj 1,000 ML IV.CONT SCH (21:00)
[2018-07-11] MEDS: Insulin NovoLOG Aspart Correctional Sugar Inj SQ SCH ×7 (00:39→23:20)
[2018-07-11] MEDS: Dexmedetomidine Inj 200 MCG in Sodium Chlor 0.9% Inj 48 ML IV.CONT PRN ×5 (03:23→20:10)
[2018-07-11] MEDS: Baclofen 10 MG Tablet PO SCH ×3 (05:07→21:10)
[2018-07-11 05:08] LABS: Baso # (Auto) 0.1 th/mm3 (0.0-0.2); Baso % (Auto) 1.1 % (0.0-2.0); Eos % (Auto) 0.2 % (0.0-4.0); Hematocrit 32.1 % (39.0-51.0); Hemoglobin 10.9 gm/dL (13.0-17.0); Lymph # (Auto) 0.9 th/mm3 (1.0-4.8); Lymph % (Auto) 16.8 % (9.0-44.0); Mean Corpuscular HGB Conc 33.9 % (32.0-36.0); Mean Corpuscular Volume 91.4 fL (80.0-100.0); Mean Platelet Volume 10.1 fL (7.0-11.0); Mono # (Auto) 0.3 th/mm3 (0.0-0.9); Mono % (Auto) 5.2 % (0.0-8.0); Neut # (Auto) 3.9 th/mm3 (1.8-7.7); Neut % (Auto) 76.7 % (16.0-70.0); Platelet Count 76 th/mm3 (150-450); Red Blood Count 3.52 mil/mm3 (4.50-5.90); Red Cell Distribution Width 15.7 % (11.6-17.2); White Blood Count 5.1 th/mm3 (4.0-11.0)
[2018-07-11 05:48] LABS: Albumin 2.2 g/dL (3.4-5.0); Anion Gap 10 meq/L (5-15); Aspartate Aminotransferase 104 U/L (15-37); Blood Urea Nitrogen 21 mg/dL (7-18); Calcium 8.2 mg/dL (8.5-10.1); Carbon Dioxide 28.5 meq/L (21.0-32.0); Chloride 107 meq/L (98-107); Glomerular Filtration Rate 88 mL/min (>89); Glucose,Random 81 mg/dL (74-106); Magnesium 1.8 mg/dL (1.5-2.5); Potassium 3.2 meq/L (3.5-5.1); Sodium 145 meq/L (136-145)
[2018-07-11 05:52] LABS: Alanine Aminotransferase 148 U/L (12-78); Alkaline Phosphatase 136 U/L (45-117); Phosphorus 2.5 mg/dL (2.5-4.9); Total Protein 6.2 g/dL (6.4-8.2)
--- NOTE | 2018-07-11 08:06 | P.PNIM ---
Subjective Interval history: f/u; NSTEMI/encephalopathy in no acute distress. awake but confused. no fever. on restraints. Physical Exam Vital signs: Vital Signs 07/10/18 08:00 07/10/18 08:01 07/10/18 09:00 Temperature 98.4 F Pulse Rate 69 68 77 Respiratory Rate 23 26 H 32 H Blood Pressure 131/61 140/64 Pulse Oximetry 97 98 99 07/10/18 09:01 07/10/18 10:00 07/10/18 11:00 Temperature Pulse Rate 74 77 Respiratory Rate 22 40 H Blood Pressure 137/63 Pulse Oximetry 98 98 98 07/10/18 11:01 07/10/18 12:00 07/10/18 13:00 Temperature Pulse Rate 79 72 73 Respiratory Rate 26 H 23 24 Blood Pressure 135/59 L 119/55 L 127/60 Pulse Oximetry 98 99 99 07/10/18 14:00 07/10/18 14:44 07/10/18 15:00 Temperature Pulse Rate 79 87 91 H Respiratory Rate 24 22 26 H Blood Pressure 115/56 L Pulse Oximetry 98 98 07/10/18 15:08 07/10/18 16:00 07/10/18 18:00 Temperature 98.2 F Pulse Rate 97 H 91 H 97 H Respiratory Rate 34 H 27 H Blood Pressure 127/61 134/60 Pulse Oximetry 97 97 07/10/18 20:00 07/10/18 20:12 07/10/18 22:00 Temperature 98.8 F Pulse Rate 92 H 91 H 77 Respiratory Rate 27 H 16 Blood Pressure 132/61 Pulse Oximetry 98 97 07/11/18 00:00 07/11/18 02:00 07/11/18 03:54 Temperature 98.7 F Pulse Rate 72 73 66 Respiratory Rate 26 H 16 Blood Pressure 129/60 Pulse Oximetry 97 07/11/18 04:00 07/11/18 06:00 Temperature 98.4 F Pulse Rate 64 91 H Respiratory Rate 25 H Blood Pressure 138/75 Pulse Oximetry 100 Intake & Output 07/10/18 07/11/18 07/11/18 18:59 06:59 18:59 Intake Total 2163 / 2163 1103 / 1103 Output Total 1800 / 1800 1500 / 1500 Balance 363 / 363 -397 / -397 Weight 59.5 kg Intake: IV 1350 / 1350 50 / 50 Precedex Inj 200 MCG In NS Inj 50 / 50 50 / 50 48 ML @ 0.1 MCG/KG/HR 1.58 mls/ hr IV.CONT TITRATE PRN Rx#: [id number] Inj 1,000 ML @ 60 mls/hr IV 800 / 800 .CONT .[id number] MONICA Rx#:[id number] NS Inj 500 ML @ Wide Open IV. 500 / 500 SIG BOLUS MONICA Rx#:[id number] Oral 0 / 0 Tube Feeding 413 / 413 453 / 453 Tube Irrigant 0 / 0 Water Bolus Amount 400 / 400 600 / 600 Output: Urine Amount (Catheter) 1800 / 1800 1500 / 1500 Indwelling Urethral Catheter 1800 / 1800 1500 / 1500 Other: Date of Last Bowel Movement 07/10/18 07/10/18 - Constitutional no acute distress - Routine HEENT Exam Comments: NG tube in place. - Routine Respiratory Exam Present: CTA bilaterally - Routine Cardiovascular Exam Present: RRR - Routine Abdominal Exam Present: soft - Routine Extremities Exam Comments: no pedal edema. - Routine Neurological Exam awake but confused. - Urinary Catheter Management Indwelling Urethral Catheter Cath placed during this visit: yes Urethral indwelling: Yes Reason for continuing: Acute urinary retention Insertion date: 06/20/18 Insertion time: 21:24 3-way Urethral Cath placed during this visit: yes Reason for continuing: Acute urinary retention Insertion date: 07/06/18 Insertion time: 18:00 Results - Labs CBC & Chem 7: 07/11/18 04:51 07/11/18 04:27 Laboratory Results - last 24 hr 07/10/18 07/10/18 07/10/18 08:10 12:39 20:43 WBC RBC Hgb Hct MCV MCH MCHC RDW Plt Count MPV Prelim Diff (Auto) Neut % (Auto) Lymph % (Auto) [place] % (Auto) Eos % (Auto) Baso % (Auto) Neut # (Auto) Lymph # (Auto) [place] # (Auto) Eos # (Auto) Baso # (Auto) WBC Differential Diff Scan Differential Comment Sodium Potassium Chloride Carbon Dioxide Anion Gap BUN Creatinine Estimated GFR POC Glucose 226 H 242 H 272 H Random Glucose Calcium Phosphorus Magnesium Total Bilirubin AST ALT Alkaline Phosphatase Total Protein Albumin 07/11/18 07/11/18 07/11/18 00:38 04:27 04:46 WBC RBC Hgb Hct MCV MCH MCHC RDW Plt Count MPV Prelim Diff (Auto) Neut % (Auto) Lymph % (Auto) [place] % (Auto) Eos % (Auto) Baso % (Auto) Neut # (Auto) Lymph # (Auto) [place] # (Auto) Eos # (Auto) Baso # (Auto) WBC Differential Diff Scan Differential Comment Sodium 145 Potassium 3.2 L Chloride 107 Carbon Dioxide 28.5 Anion Gap 10 BUN 21 H Creatinine 0.86 Estimated GFR 88 L POC Glucose 205 H 94 Random Glucose 81 Calcium 8.2 L Phosphorus 2.5 Magnesium 1.8 Total Bilirubin 0.5 AST 104 H ALT 148 H Alkaline Phosphatase 136 H Total Protein 6.2 L Albumin 2.2 L 07/11/18 04:51 WBC 5.1 RBC 3.52 L Hgb 10.9 L Hct 32.1 L MCV 91.4 MCH 31.0 MCHC 33.9 RDW 15.7 Plt Count 76 L MPV 10.1 Prelim Diff (Auto) Slide review pending Neut % (Auto) 76.7 H Lymph % (Auto) 16.8 [place] % (Auto) 5.2 Eos % (Auto) 0.2 Baso % (Auto) 1.1 Neut # (Auto) 3.9 Lymph # (Auto) 0.9 L [place] # (Auto) 0.3 Eos # (Auto) 0.0 Baso # (Auto) 0.1 WBC Differential . Diff Scan Auto diff confirmed Differential Comment . Sodium Potassium Chloride Carbon Dioxide Anion Gap BUN Creatinine Estimated GFR POC Glucose Random Glucose Calcium Phosphorus Magnesium Total Bilirubin AST ALT Alkaline Phosphatase Total Protein Albumin - Imaging Impressions Abdomen X-Ray 07/10/18 08:00 CONCLUSION: No evidence of obstruction. - Procedures intubation/ cardiac cath. Assessment and Plan - Plan Resp failure- extubated 07/09 continue with neb treatment as needed. Acute decompensated CHF - systolic and diastolic EF 20% -appears euvolemic- s/p defibrillator placement continue BB and diuretic-no ENA due to FIDE- cardiology following. Staph aureus pneumonia -afebrile over the last 48 hours treated- continue to monitor. Atrial fibrillation -rate controlled- continue BB Non-STEMI- -Cardiac cath per Dr. Noonan. Angiographically mild to moderate 3 -vessel coronary artery disease. EF 20%. continue aspirin, BB and statin. FIDE -creatinine normalizing, urine output remains adequate encephalopathy- evaluated by neurology. NPO for now per ST- continue with tube feeding for now. Hypernatremia -resolved Thrombocytopenia -unchanged- will monitor. Adynamic ileus - ?[place] -distention is improved Erectile Dysfunction PAD- continue aspirin and statin COPD- continue with neb treatment. pulmonary following. elevated LFT's- will monitor DVT prophylaxis with subq Lovenox palliative care following.
[2018-07-11] MEDS: Brimonidine 0.15% Opth Drops 5 ML Bottle EACH EYE SCH ×2 (10:44→20:11)
[2018-07-11] MEDS: Enoxaparin Inj 40 MG/0.4 ML Syringe SQ SCH (10:44)
[2018-07-11] MEDS: Metoprolol Tartrate 25 MG Tablet PO SCH ×2 (10:45→20:10)
[2018-07-11] MEDS: Hypromellose 0.3% Opth Gel 10 GM Bottle EACH EYE SCH ×2 (10:45→20:11)
[2018-07-11] MEDS: Bisacodyl 10 MG Supp RECTAL SCH (10:45)
[2018-07-11] MEDS: Senna/Docusate Sodium 8.6/50 MG Tablet PO SCH ×2 (10:46→20:10)
[2018-07-11] MEDS: QUEtiapine 25 MG Tablet NG/OG SCH ×2 (10:49→13:36)
[2018-07-11] MEDS: Potassium Chlor 20 mEq Premix 20 MEQ/100 ML PIGGYBACK IV.SIG PRN ×4 (10:55→18:52)
--- NOTE | 2018-07-11 12:32 | P.PNCA ---
Subjective Interval history: sedated, restrained in nad Physical Exam Vital signs: Vital Signs 07/10/18 13:00 07/10/18 14:00 07/10/18 14:44 Temperature Pulse Rate 73 79 87 Respiratory Rate 24 24 22 Blood Pressure 127/60 115/56 L Pulse Oximetry 99 98 07/10/18 15:00 07/10/18 15:08 07/10/18 16:00 Temperature 98.2 F Pulse Rate 91 H 97 H 91 H Respiratory Rate 26 H 34 H 27 H Blood Pressure 127/61 134/60 Pulse Oximetry 98 97 97 07/10/18 18:00 07/10/18 20:00 07/10/18 20:12 Temperature 98.8 F Pulse Rate 97 H 92 H 91 H Respiratory Rate 27 H 16 Blood Pressure 132/61 Pulse Oximetry 98 97 07/10/18 22:00 07/11/18 00:00 07/11/18 02:00 Temperature 98.7 F Pulse Rate 77 72 73 Respiratory Rate 26 H Blood Pressure 129/60 Pulse Oximetry 97 07/11/18 03:54 07/11/18 04:00 07/11/18 06:00 Temperature 98.4 F Pulse Rate 66 64 91 H Respiratory Rate 16 25 H Blood Pressure 138/75 Pulse Oximetry 100 07/11/18 08:00 07/11/18 08:01 07/11/18 09:00 Temperature 98.5 F Pulse Rate 79 76 75 Respiratory Rate 24 27 H 27 H Blood Pressure 140/63 148/67 H Pulse Oximetry 97 96 97 07/11/18 10:00 07/11/18 10:01 07/11/18 10:41 Temperature Pulse Rate 71 73 70 Respiratory Rate 25 H 26 H 23 Blood Pressure 125/58 L Pulse Oximetry 97 97 97 07/11/18 11:00 07/11/18 12:00 Temperature Pulse Rate 73 63 Respiratory Rate 26 H 22 Blood Pressure 123/87 131/63 Pulse Oximetry 97 100 Intake & Output 07/10/18 07/11/18 07/11/18 18:59 06:59 18:59 Intake Total 2163 / 2163 1103 / 1103 50 / 50 Output Total 1800 / 1800 1500 / 1500 Balance 363 / 363 -397 / -397 50 / 50 Weight 59.5 kg Intake: IV 1350 / 1350 50 / 50 50 / 50 Precedex Inj 200 MCG In NS Inj 50 / 50 50 / 50 50 / 50 48 ML @ 0.1 MCG/KG/HR 1.58 mls/ hr IV.CONT TITRATE PRN Rx#: [id number] Inj 1,000 ML @ 60 mls/hr IV 800 / 800 .CONT .[id number] [facility] Rx#:[id number] NS Inj 500 ML @ Wide Open IV. 500 / 500 SIG BOLUS [facility] Rx#:[id number] Oral 0 / 0 Tube Feeding 413 / 413 453 / 453 Tube Irrigant 0 / 0 Water Bolus Amount 400 / 400 600 / 600 Output: Urine Amount (Catheter) 1800 / 1800 1500 / 1500 Indwelling Urethral Catheter 1800 / 1800 1500 / 1500 Other: Date of Last Bowel Movement 07/10/18 07/10/18 07/10/18 - Urinary Catheter Management Indwelling Urethral Catheter Cath placed during this visit: yes Urethral indwelling: Yes Reason for continuing: Acute urinary retention Insertion date: 06/20/18 Insertion time: 21:24 3-way Urethral Cath placed during this visit: yes Reason for continuing: Acute urinary retention Insertion date: 07/06/18 Insertion time: 18:00 Assessment and Plan - Assessment (1) Cardiomyopathy Code(s): I42.9 - Cardiomyopathy, unspecified Status: Acute (2) Cardiomyopathy Code(s): I42.9 - Cardiomyopathy, unspecified Status: Acute (3) PVD (peripheral vascular disease) Code(s): I73.9 - Peripheral vascular disease, unspecified Status: Acute (4) PVD (peripheral vascular disease) Code(s): I73.9 - Peripheral vascular disease, unspecified Status: Acute (5) Tobacco abuse Code(s): Z72.0 - Tobacco use Status: Acute (6) Respiratory failure Code(s): J96.90 - Respiratory failure, unspecified, unspecified whether with hypoxia or hypercapnia Status: Acute (7) Non-ST elevated myocardial infarction (non-STEMI) Code(s): I21.4 - Non-ST elevation (NSTEMI) myocardial infarction Status: Acute (8) Pulmonary edema cardiac cause Code(s): I50.1 - Left ventricular failure, unspecified Status: Acute - Plan 1.) NICM - end stage, euvolemic, refuses in state transfer, requesting transfer to [facility], d/w Dr Solis; beta ana and hellen held due to hypotension, diuresing to optimize potential extubation, he has hypernatremia 2.) CAD - nonobstructive, continue aspirin, pravachol 3.) Encephalopathy - moderate per EEG on sedation, neuro following 4.) d/w case with at the bedside 07/04/18 5.) Respiratory failure - he is euvolemic, appears to be due to pulmonary and/ or encephalopathic etilology, extubated 07/09/18 but restrained and not following commands, will follow trends in mental and respiratory status, d/w at the bedside 07/11/18, she says he has placement @ [facility], I advised her to d /w case management travel arrangements (6) Respiratory failure Qualifiers: Chronicity: acute Respiratory failure complication: hypoxia Qualified Code(s ): J96.01 - Acute respiratory failure with hypoxia
[2018-07-11] MEDS: Hydrocortisone Sod Succinate 100 MG Vial IV.PUSH SCH (13:31)
--- NOTE | 2018-07-11 15:10 | P.DIET ---
Nutritional Evaluation Type of nutrition evaluation: follow-up Nutrition consult regarding: Tube Feeding Objective - Diagnosis Hypoxic Respiratory Failure, Pulmonary Edema - Objective % IBW: 93 (IBW = 166#) Body Weight Used for Calculations: Actual (70 kg) Energy Needs - Lower Range (kCal/kg): 25 Energy Needs - Upper Range (kCal/kg): 30 Lower Limit kCal/kg (kCals): 1,750 Upper Limit kCal/kg (kCals): 2,100 Lower Limit Protein Factor (Grams per Kg): 1.0 Upper Limit Protein Factor (Grams per Kg): 1.5 Lower Protein Needs (Protein): 70 Upper Protein Needs (Protein): 105 Dietitian Reviewed in Medical Record: Curent medications, Intake & Output, Labs , Medical history, Tube feeding Diet Order: NPO Speech Therapy Recommendations: Yes (npo (07/11)) Feeding - Current Tube Feeding Tube Feeding Product: Glucerna 1.5 Tube Feeding Method: Pump Tube Feeding Rate: 40 Assessment Assessment: Pt is at high nutrition risk 2' to his need for TFing. Extubated on 07/09 and ileus is resolved. TFing is running at 40 mls/hr. When TF can be increased, recommend Glucerna 1.5 goal rate of 55 mls/hr to provide 1980 kcals, 109 gms protein and 1002 mls of free water. Labs, wts and clinical course reviewed: wt loss noted. Recommendations: Glucerna 1.5 @ 55 mls/hr goal Dietitian to Monitor: Lab values, Glucose level, Intake & Output, Tube feeding tolerance, Medical course
--- NOTE | 2018-07-11 15:48 | P.PNPAL ---
Reason for Visit Reason for visit: a. To assist with evaluation and management of symptoms including: dyspnea, pain, agitation, constipation b. To assist medical decision maker(s) with: better understanding of current medical conditions; weighing benefits/burdens of medical treatment options; making medical treatment decisions. Subjective Subjective/Interval History: Pt resting in bed. BUE restraints. He is sleeping and does not rouse to my exam. Per and RN pt has not slept in days. Precedex increased today. Neuro consult/reconsult is pending to evaluate encephalopathy and agitation. he is not able to tell me if he has pain or feels short of breath but he appears comfortable and there was no sign of tenderness during exam. Per RN he has new deep tissue injury to sacrum. Wound care has been unable to fully evaluate d/t his agitation. on 2L o2via [place]. Sat 100. Breathing unlabored. Family/Friend Interactions: discussion with at bedside -family understanding of the current medical problems -family understanding of prognosis -Patients goals of care as best understood from advance directives and conversations -Current medical treatment options and their benefits/burdens - re-addressed CODE STATUS, benefits/burdens/limitations of CPR, intubation, and mechanical ventilation - prefers no intubation but wants to discuss with family, and will discuss the other aspects of code status -Questions answered to the best of my ability - Palliative care contact information provided Goals remain aggressive however is reconsidering code status and wishes to discuss with family this evening. she is looking ways to get pt back home to [place]. Objective Vital Signs: Vital Signs 07/10/18 16:00 07/10/18 18:00 07/10/18 20:00 Temperature 98.2 F 98.8 F Pulse Rate 91 H 97 H 92 H Respiratory Rate 27 H 27 H Blood Pressure 134/60 132/61 Pulse Oximetry 97 98 07/10/18 20:12 07/10/18 22:00 07/11/18 00:00 Temperature 98.7 F Pulse Rate 91 H 77 72 Respiratory Rate 16 26 H Blood Pressure 129/60 Pulse Oximetry 97 97 07/11/18 02:00 07/11/18 03:54 07/11/18 04:00 Temperature 98.4 F Pulse Rate 73 66 64 Respiratory Rate 16 25 H Blood Pressure 138/75 Pulse Oximetry 100 07/11/18 06:00 07/11/18 08:00 07/11/18 08:01 Temperature 98.5 F Pulse Rate 91 H 79 76 Respiratory Rate 24 27 H Blood Pressure 140/63 Pulse Oximetry 97 96 07/11/18 09:00 07/11/18 10:00 07/11/18 10:01 Temperature Pulse Rate 75 71 73 Respiratory Rate 27 H 25 H 26 H Blood Pressure 148/67 H 125/58 L Pulse Oximetry 97 97 97 07/11/18 10:41 07/11/18 11:00 07/11/18 12:00 Temperature Pulse Rate 70 73 63 Respiratory Rate 23 26 H 22 Blood Pressure 123/87 131/63 Pulse Oximetry 97 97 100 Intake & Output 07/10/18 07/11/18 07/11/18 18:59 06:59 18:59 Intake Total 2163 / 2163 1103 / 1103 200 / 200 Output Total 1800 / 1800 1500 / 1500 Balance 363 / 363 -397 / -397 200 / 200 Weight 59.5 kg Intake: IV 1350 / 1350 50 / 50 200 / 200 Precedex Inj 200 MCG In NS Inj 50 / 50 50 / 50 100 / 100 48 ML @ 0.1 MCG/KG/HR 1.58 mls/ hr IV.CONT TITRATE PRN Rx#: [id number] Inj 1,000 ML @ 60 mls/hr IV 800 / 800 .CONT .[id number] [facility] Rx#:[id number] KCl 20 mEq Premix Inj 20 meq In 100 / 100 100 ml @ 50 mls/hr IV.SIG Q2H PRN Rx#:[id number] NS Inj 500 ML @ Wide Open IV. 500 / 500 SIG BOLUS [facility] Rx#:[id number] Oral 0 / 0 Tube Feeding 413 / 413 453 / 453 Tube Irrigant 0 / 0 Water Bolus Amount 400 / 400 600 / 600 Output: Urine Amount (Catheter) 1800 / 1800 1500 / 1500 Indwelling Urethral Catheter 1800 / 1800 1500 / 1500 Other: Date of Last Bowel Movement 07/10/18 07/10/18 07/10/18 Physical Exam: SKIN: No jaundice, rashes, or lesions. No wounds seen anteriorly. Skin temperature appropriate. Not diaphoretic. HEAD: Atraumatic. Normocephalic. EYES: No scleral icterus. No injection or drainage. Fundi not examined. ENT: Nose without bleeding or purulent drainage. NGT CARDIOVASCULAR: irr HR RESPIRATORY/CHEST: Symmetric, unlabored respirations. CTA GASTROINTESTINAL: ABD soft, nontender, BS + GENITOURINARY: Without palpable bladder distension. Nevarez catheter in place. MUSCULOSKELETAL: BUE in restraints. Extremities without clubbing, cyanosis, or edema. No mottling or clubbing. NEUROLOGICAL: alseep, did not rouse to exam; much calmer than yesterday PSYCHIATRIC: unable to assess, pt did not rouse to exam Diagnostic Tests Laboratory: Laboratory Results - last 72 hr 07/08/18 07/08/18 07/09/18 17:25 21:16 00:17 WBC RBC Hgb Hct MCV MCH MCHC RDW Plt Count MPV Prelim Diff (Auto) Neut % (Auto) Lymph % (Auto) [place] % (Auto) Eos % (Auto) Baso % (Auto) Neut # (Auto) Lymph # (Auto) [place] # (Auto) Eos # (Auto) Baso # (Auto) WBC Differential Diff Scan Differential Comment Platelet Estimate Platelet Morphology Ovalocytes Keratocytes Sodium Potassium Chloride Carbon Dioxide Anion Gap BUN Creatinine Estimated GFR POC Glucose 182 H 177 H 190 H Random Glucose Calcium Phosphorus Magnesium Total Bilirubin AST ALT Alkaline Phosphatase Ammonia Total Protein Albumin 07/09/18 07/09/18 07/09/18 03:23 03:41 03:47 WBC RBC Hgb Hct MCV MCH MCHC RDW Plt Count MPV Prelim Diff (Auto) Neut % (Auto) Lymph % (Auto) [place] % (Auto) Eos % (Auto) Baso % (Auto) Neut # (Auto) Lymph # (Auto) [place] # (Auto) Eos # (Auto) Baso # (Auto) WBC Differential Diff Scan Differential Comment Platelet Estimate Platelet Morphology Ovalocytes Keratocytes Sodium 140 Potassium 3.0 L Chloride 105 Carbon Dioxide 23.0 Anion Gap 12 BUN 24 H Creatinine 1.04 Estimated GFR 71 L POC Glucose 215 H Random Glucose 208 H Calcium 7.7 L Phosphorus 2.3 L Magnesium 1.9 Total Bilirubin 0.7 AST 71 H ALT 103 H Alkaline Phosphatase 91 Ammonia 23 Total Protein 5.6 L Albumin 2.0 L 07/09/18 07/09/18 07/09/18 03:47 08:46 17:30 WBC 6.7 RBC 3.03 L Hgb 9.5 L Hct 28.1 L MCV 93.0 MCH 31.4 MCHC 33.8 RDW 15.6 Plt Count 56 L MPV 11.1 H Prelim Diff (Auto) Slide review pending Neut % (Auto) 84.8 H Lymph % (Auto) 11.4 [place] % (Auto) 2.5 Eos % (Auto) 0.7 Baso % (Auto) 0.6 Neut # (Auto) 5.7 Lymph # (Auto) 0.8 L [place] # (Auto) 0.2 Eos # (Auto) 0.0 Baso # (Auto) 0.0 WBC Differential . Diff Scan Auto diff confirmed Differential Comment . Platelet Estimate Low L Platelet Morphology Normal Ovalocytes 1+ H Keratocytes Occ H Sodium Potassium Chloride Carbon Dioxide Anion Gap BUN Creatinine Estimated GFR POC Glucose 192 H 297 H Random Glucose Calcium Phosphorus Magnesium Total Bilirubin AST ALT Alkaline Phosphatase Ammonia Total Protein Albumin 07/09/18 07/09/18 07/09/18 20:04 20:07 23:39 WBC RBC Hgb Hct MCV MCH MCHC RDW Plt Count MPV Prelim Diff (Auto) Neut % (Auto) Lymph % (Auto) [place] % (Auto) Eos % (Auto) Baso % (Auto) Neut # (Auto) Lymph # (Auto) [place] # (Auto) Eos # (Auto) Baso # (Auto) WBC Differential Diff Scan Differential Comment Platelet Estimate Platelet Morphology Ovalocytes Keratocytes Sodium Potassium 3.3 L Chloride Carbon Dioxide Anion Gap BUN Creatinine Estimated GFR POC Glucose 296 H 212 H Random Glucose Calcium Phosphorus 3.8 D Magnesium Total Bilirubin AST ALT Alkaline Phosphatase Ammonia Total Protein Albumin 07/10/18 07/10/18 07/10/18 04:21 04:21 04:38 WBC 8.4 RBC 3.02 L Hgb 9.5 L Hct 28.0 L MCV 92.6 MCH 31.4 MCHC 33.9 RDW 15.5 Plt Count 71 L MPV 10.9 Prelim Diff (Auto) Slide review pending Neut % (Auto) 85.2 H Lymph % (Auto) 8.9 L [place] % (Auto) 5.4 Eos % (Auto) 0.0 Baso % (Auto) 0.5 Neut # (Auto) 7.2 Lymph # (Auto) 0.8 L [place] # (Auto) 0.5 Eos # (Auto) 0.0 Baso # (Auto) 0.0 WBC Differential . Diff Scan Auto diff confirmed Differential Comment . Platelet Estimate Low L Platelet Morphology Enlarged H Ovalocytes Keratocytes Sodium 143 Potassium 3.9 Chloride 108 H Carbon Dioxide 25.1 Anion Gap 10 BUN 20 H Creatinine 0.90 Estimated GFR 83 L POC Glucose 125 H Random Glucose 97 D Calcium 7.9 L Phosphorus 2.4 L D Magnesium 1.9 Total Bilirubin 0.7 AST 92 H ALT 122 H Alkaline Phosphatase 113 Ammonia Total Protein 5.9 L Albumin 2.1 L 07/10/18 07/10/18 07/10/18 08:10 12:39 20:43 WBC RBC Hgb Hct MCV MCH MCHC RDW Plt Count MPV Prelim Diff (Auto) Neut % (Auto) Lymph % (Auto) [place] % (Auto) Eos % (Auto) Baso % (Auto) Neut # (Auto) Lymph # (Auto) [place] # (Auto) Eos # (Auto) Baso # (Auto) WBC Differential Diff Scan Differential Comment Platelet Estimate Platelet Morphology Ovalocytes Keratocytes Sodium Potassium Chloride Carbon Dioxide Anion Gap BUN Creatinine Estimated GFR POC Glucose 226 H 242 H 272 H Random Glucose Calcium Phosphorus Magnesium Total Bilirubin AST ALT Alkaline Phosphatase Ammonia Total Protein Albumin 07/11/18 07/11/18 07/11/18 00:38 04:27 04:46 WBC RBC Hgb Hct MCV MCH MCHC RDW Plt Count MPV Prelim Diff (Auto) Neut % (Auto) Lymph % (Auto) [place] % (Auto) Eos % (Auto) Baso % (Auto) Neut # (Auto) Lymph # (Auto) [place] # (Auto) Eos # (Auto) Baso # (Auto) WBC Differential Diff Scan Differential Comment Platelet Estimate Platelet Morphology Ovalocytes Keratocytes Sodium 145 Potassium 3.2 L Chloride 107 Carbon Dioxide 28.5 Anion Gap 10 BUN 21 H Creatinine 0.86 Estimated GFR 88 L POC Glucose 205 H 94 Random Glucose 81 Calcium 8.2 L Phosphorus 2.5 Magnesium 1.8 Total Bilirubin 0.5 AST 104 H ALT 148 H Alkaline Phosphatase 136 H Ammonia Total Protein 6.2 L Albumin 2.2 L 07/11/18 07/11/18 04:51 11:07 WBC 5.1 RBC 3.52 L Hgb 10.9 L Hct 32.1 L MCV 91.4 MCH 31.0 MCHC 33.9 RDW 15.7 Plt Count 76 L MPV 10.1 Prelim Diff (Auto) Slide review pending Neut % (Auto) 76.7 H Lymph % (Auto) 16.8 [place] % (Auto) 5.2 Eos % (Auto) 0.2 Baso % (Auto) 1.1 Neut # (Auto) 3.9 Lymph # (Auto) 0.9 L [place] # (Auto) 0.3 Eos # (Auto) 0.0 Baso # (Auto) 0.1 WBC Differential . Diff Scan Auto diff confirmed Differential Comment . Platelet Estimate Platelet Morphology Ovalocytes Keratocytes Sodium Potassium Chloride Carbon Dioxide Anion Gap BUN Creatinine Estimated GFR POC Glucose 178 H Random Glucose Calcium Phosphorus Magnesium Total Bilirubin AST ALT Alkaline Phosphatase Ammonia Total Protein Albumin Result Diagrams: 07/11/18 04:51 07/11/18 04:27 Microbiology: Microbiology 07/07/18 18:26 Gram Stain - Final Sputum - Endotracheal Sputum Culture - Final Staphylococcus aureus Klebsiella pneumoniae Procedures: 06/23 reintubated 06/26 heart cath 07/09 extubated Assessment and Plan - Disease Oriented Problem List (1) Respiratory failure (2) Non-ST elevated myocardial infarction (non-STEMI) (3) Cardiomyopathy (4) PVD (peripheral vascular disease) (5) Tobacco abuse (6) Constipation - Symptom Scale (1) Dyspnea 0-10 Scale: Unable to quantify (2) Pain 0-10 Scale: Unable to quantify (3) Agitation 0-10 Scale: Unable to quantify Pertinent Non-Medical Issues: Psychosocial: Pt originally from [place]. with 4 kids. 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 Spiritual: hindu. decline health plan specialist visit. Legal: Per [place] statute is proxy decision maker. Ethical issues impacting care: none Important Contacts: Kristine Austin, - [phone] Prognosis: This is a 72-year-old male with history CHF, COPD, tobacco abuse, diabetes who presented 06/20 [place] has a defibrillator implanted. His baseline ejection fraction is 25% and he is now at less than 20%. Patient reintubated 06/23, extubated . Had cardiac cath 06/26 with finding 3 vessel CAD, non ischemic dilated cardiomyopathy. Unclear if he is candidate for heart transplant d/t significant COPD. He is at high risk for continued complications and decline. Code Status: Full Code Plan: - LEGAL DECISON MAKER -patient is incapacitated to make medical decisions. Per [place] statutes his proxy decision maker - CODE STATUS-full code - GOALS - Goals remain aggressive however is reconsidering code status and wishes to discuss with family this evening. she is looking ways to get pt back home to [place]. - SYMPTOMS - * pain - multifactorial- prolonged bedbound status, mult tubes and lines, had ileus, now with DTI sacrum. chest pain prior to admission. ileus is improved. at this time defer pain mgmt to CCM * constipation - last BM 07/03. developed ileus which improved after administration GoLytely. tolerating TF. abd soft and nontender. BS +. continue bowel regimen * dyspnea -reintubated 06/23. extubated 07/09. Recent N STEMI. EF < 20% . s/p cardiac cath 06/26 findings 3 vessel CAD, nonischemic dilated cardiomyopathy. pulmonology consulted for significant COPD. CV surgery consulted, not candidate at this time. pt extubated and has been agitated, precedex was increased and he is sleeping on my eval, 2L o2 via [place], sat 100. scheduled DuoNeb's , steroids * agitation - multlifactorial. extubated, still with agitation and not sleeping for days, precedex increased from 7.93 ml/hr to 21 today and pt is asleep during my eval , 25 mg seroquel BID, baclofen. neuro consult is pending. unclear if his encephalopathy will improve. sedation per [facility] - d/w RN - Palliative care will continue to follow during hospital course as condition evolves, to assist patient/decision-maker with understanding of medical conditions, weighing benefits/burdens of treatment options, for clarification of goals of treatment. Additionally will assist with any symptoms of palliative concern Attestation Attestation: To help prompt me to consider important information that might be impacting today's encounter and assessment, information from prior notes written by myself or my colleagues may have been "brought forward" into today's note. My signature on this note, however, is an attestation that I personally performed the exam, history, and/or decision-making noted today, and, unless otherwise indicated, the interactions with patient, family, and staff as well as the review of records all occurred today. I also attest that the listed assessment and stated plan reflect my best clinical judgment today based on the combination of historical information, prior notes, and today's exam/ interactions. When time spent is documented, it refers only to time spent today by the signer, or if indicated, combined time spent today by collaborating physician/nurse practitioner.
--- NOTE | 2018-07-11 17:13 | P.PNNEU ---
Subjective Subjective Comments: Cross cover. Patient being followed by Dr. Johnson. Seen for confusion Patient came in with respiratory distress history of apparently viral cardiomyopathy. Unable to get information from patient due to mental status suspected to have hypoxic encephalopathy Active Medications: Active Medications Acetaminophen (Tylenol Liq) 650 mg NG/OG Q6H PRN PRN Reason: FEVER Last Admin: 07/10/18 21:02 Dose: 650 mg Al Hydroxide/Mg Hydroxide (Milk Of Magnesia Liq) 30 ml PO Q12H PRN PRN Reason: Mild Constipation Albuterol (Duoneb Neb (Prn)) 1 ampul NEB Q4HR NEB PRN PRN Reason: SHORTNESS OF BREATH/WHEEZING Albuterol (Duoneb Neb (Yon)) 1 ampul NEB Q6HR NEB [facility] Last Admin: 07/11/18 10:30 Dose: 1 ampul Artificial Tears (Genteal Severe Dry Eye Relief 0.3% Opth Gel) 1 drops EACH EYE BID [facility] Last Admin: 07/11/18 10:45 Dose: 1 drops Aspirin (Aspirin Chew) 162 mg PO DAILY [facility] Last Admin: 07/11/18 10:44 Dose: 162 mg Baclofen (Lioresal) 10 mg PO Q8HR [facility] Last Admin: 07/11/18 13:31 Dose: 10 mg Bisacodyl (Dulcolax Supp) 10 mg RECTAL DAILY PRN PRN Reason: SEVERE CONSITIPATION Bisacodyl (Dulcolax Supp) 10 mg RECTAL DAILY [facility] Last Admin: 07/11/18 10:45 Dose: Not Given Brimonidine Tartrate (Alphagan P 0.15% Opth Drops) 1 drops EACH EYE BID [facility] Last Admin: 07/11/18 10:44 Dose: 1 drops Dextrose (D50w Vial) 50 ml IV.PUSH UNSCH PRN PRN Reason: PER HYPOGLYCEMIA PROTOCOL Last Admin: 07/07/18 04:23 Dose: 50 ml Enoxaparin Sodium (Lovenox Inj) 40 mg SQ DAILY [facility] Last Admin: 07/11/18 10:44 Dose: 40 mg Furosemide (Lasix Inj) 40 mg IV.PUSH DAILY@1400 [facility] Last Admin: 07/11/18 13:31 Dose: 40 mg Glucagon (Glucagon Inj) 1 mg OTHER PRN PRN PRN Reason: for Hypoglycemia Protocol Hydralazine HCl (Apresoline Inj) 10 mg IV.PUSH Q4H PRN PRN Reason: SBP>160, DBP>90 Hydrocortisone Sodium Succinate (Solucortef Inj) 100 mg IV.PUSH Q24H YON Stop: 07/12/18 08:00 Last Admin: 07/11/18 13:31 Dose: 100 mg Magnesium Sulfate Inj 4 gm/ (Sodium Chloride) 100 mls @ 50 mls/hr IV.SIG UNSCH PRN PRN Reason: For Magnesium 0.9 - 1.1 mg/dL Magnesium Sulfate Inj 2 gm/ (Sodium Chloride) 100 mls @ 50 mls/hr IV.SIG UNSCH PRN PRN Reason: For Magnesium 1.2 - 1.6 mg/dL Potassium Chloride (Kcl 40 Meq Premix Inj) 40 meq in 100 mls @ 50 mls/hr IV.SIG Q2H PRN PRN Reason: For Potassium 2.8 - 3.2 mEq/L Potassium Chloride (Kcl 20 Meq Premix Inj) 20 meq in 100 mls @ 50 mls/hr IV.SIG Q2H PRN PRN Reason: For Potassium 3.3 - 3.5 mEq/L Last Infusion: 06/29/18 08:59 Dose: Infused Potassium Chloride (Kcl 20 Meq Premix Inj) 20 meq in 100 mls @ 50 mls/hr IV.SIG Q2H PRN PRN Reason: For Potassium 2.8 - 3.2 mEq/L Last Admin: 07/11/18 16:42 Dose: 50 mls/hr Potassium Phosphate 30 mmol/ (Sodium Chloride) 260 mls @ 42 mls/hr IV.SIG UNSCH PRN PRN Reason: SEE LABEL COMMENTS Last Infusion: 07/09/18 14:59 Dose: Infused Sodium Phosphate 30 mmol/ (Sodium Chloride) 260 mls @ 42 mls/hr IV.SIG UNSCH PRN PRN Reason: For Phosphorus < 2.5 mg/dL Potassium Chloride (Kcl 40 Meq Premix Inj) 40 meq in 100 mls @ 25 mls/hr IV.SIG UNSCH PRN PRN Reason: For Potassium 3.3 - 3.5 mEq/L Sodium Chloride (Ns Inj) 500 mls @ 0 mls/hr IV.SIG BOLUS YON Last Infusion: 07/10/18 17:28 Dose: Infused Dexmedetomidine HCl 200 mcg/ (Sodium Chloride) 50 mls @ 1.58 mls/hr IV.CONT TITRATE PRN; Protocol PRN Reason: Per Protocol Last Admin: 07/11/18 16:42 Dose: 1 mcg/kg/hr, 15.87 mls/hr Insulin Aspart (Novolog Insulin Correctional Sugar Inj) 0 unit SQ Q4HR [facility]; Protocol Last Admin: 07/11/18 13:31 Dose: 5 unit Lactulose (Lactulose Liq) 30 ml PO DAILY PRN PRN Reason: SEVERE CONSITIPATION Lactulose (Lactulose Liq) 30 ml NG/OG DAILY [facility] Last Admin: 07/11/18 10:45 Dose: Not Given Lansoprazole (Prevacid Solutab) 30 mg NG/OG DAILY [facility] Last Admin: 07/11/18 10:49 Dose: 30 mg Magnesium Oxide (Mag-Ox) 800 mg PO UNSCH PRN PRN Reason: For Magnesium 1.2 - 1.6 mg/dL Metoprolol Tartrate (Lopressor) 6.25 mg PO BID [facility] Last Admin: 07/11/18 10:45 Dose: 6.25 mg Miscellaneous (Pill Splitter) 1 each OTHER UNSCH PRN PRN Reason: SEE LABEL COMMENTS Potassium Bicarb/Potassium Chloride (K-Lyte Cl Eff) 50 meq PO UNSCH PRN PRN Reason: For Potassium 3.3 - 3.5 mEq/L Last Admin: 07/10/18 02:21 Dose: 50 meq Potassium Phosphate (K-Phos Original) 2,000 mg PO Q4H PRN PRN Reason: Phosphorus Less Than 2.5 mg/dL Last Admin: 07/10/18 08:14 Dose: 2,000 mg Potassium Phosphate (K-Phos Original) 2,000 mg PO UNSCH PRN PRN Reason: SEE LABEL COMMENTS Pravastatin Sodium (Pravachol) 40 mg PO DAILY@1800 [facility] Last Admin: 07/10/18 17:20 Dose: 40 mg Quetiapine Fumarate (Seroquel) 25 mg NG/OG BID@0900,1200 [facility] Last Admin: 07/11/18 13:36 Dose: 25 mg Senna/Docusate Sodium (Gisell-Colace) 1 tab PO BID [facility] Last Admin: 07/11/18 10:46 Dose: Not Given Sennosides (Senokot) 17.2 mg PO Q12H PRN PRN Reason: Moderate Constipation Sodium Chloride (Ns Flush) 2 ml IV.FLUSH BID [facility] Last Admin: 07/11/18 10:46 Dose: 2 ml Sodium Chloride (Ns Flush) 2 ml IV.FLUSH PRN PRN PRN Reason: FLUSH AFTER USING IV ACCESS Sterile Water (Free Water) 200 ml G-TUBE Q6HR [facility] Last Admin: 07/11/18 13:31 Dose: 200 ml Terbutaline Sulfate (Brethine Inj) 1 mg SQ ONCE PRN PRN Reason: Extravasation Allergies/Adverse Reactions: Allergies Allergy/AdvReac Type Severity Reaction Status Date / Time bee venom protein (honey bee) Allergy Difficulty Verified 06/20/18 22:04 [Bee sting] Breathing hydromorphone Allergy Nausea/Vomi Verified 06/20/18 22:04 ting pregabalin [From Lyrica] Allergy Anaphylaxis Verified 06/20/18 22:04 Review of Systems unobtainable due to mental status Physical Exam Vital signs: Vital Signs 07/10/18 18:00 07/10/18 20:00 07/10/18 20:12 Temperature 98.8 F Pulse Rate 97 H 92 H 91 H Respiratory Rate 27 H 16 Blood Pressure 132/61 Pulse Oximetry 98 97 07/10/18 22:00 07/11/18 00:00 07/11/18 02:00 Temperature 98.7 F Pulse Rate 77 72 73 Respiratory Rate 26 H Blood Pressure 129/60 Pulse Oximetry 97 07/11/18 03:54 07/11/18 04:00 07/11/18 06:00 Temperature 98.4 F Pulse Rate 66 64 91 H Respiratory Rate 16 25 H Blood Pressure 138/75 Pulse Oximetry 100 07/11/18 08:00 07/11/18 08:01 07/11/18 09:00 Temperature 98.5 F Pulse Rate 79 76 75 Respiratory Rate 24 27 H 27 H Blood Pressure 140/63 148/67 H Pulse Oximetry 97 96 97 07/11/18 10:00 07/11/18 10:01 07/11/18 10:41 Temperature Pulse Rate 71 73 70 Respiratory Rate 25 H 26 H 23 Blood Pressure 125/58 L Pulse Oximetry 97 97 97 07/11/18 11:00 07/11/18 12:00 07/11/18 14:00 Temperature Pulse Rate 73 63 59 L Respiratory Rate 26 H 22 Blood Pressure 123/87 131/63 Pulse Oximetry 97 100 07/11/18 16:00 Temperature Pulse Rate 59 L Respiratory Rate Blood Pressure Pulse Oximetry Intake & Output 07/10/18 07/11/18 07/11/18 18:59 06:59 18:59 Intake Total 2163 / 2163 1103 / 1103 350 / 350 Output Total 1800 / 1800 1500 / 1500 Balance 363 / 363 -397 / -397 350 / 350 Weight 59.5 kg Intake: IV 1350 / 1350 50 / 50 350 / 350 Precedex Inj 200 MCG In NS Inj 50 / 50 50 / 50 150 / 150 48 ML @ 0.1 MCG/KG/HR 1.58 mls/ hr IV.CONT TITRATE PRN Rx#: [id number] D5W Inj 1,000 ML @ 60 mls/hr IV 800 / 800 .CONT .[id number] YON Rx#:[id number] KCl 20 mEq Premix Inj 20 meq In 200 / 200 100 ml @ 50 mls/hr IV.SIG Q2H PRN Rx#:[id number] NS Inj 500 ML @ Wide Open IV. 500 / 500 SIG BOLUS YON Rx#:[id number] Oral 0 / 0 Tube Feeding 413 / 413 453 / 453 Tube Irrigant 0 / 0 Water Bolus Amount 400 / 400 600 / 600 Output: Urine Amount (Catheter) 1800 / 1800 1500 / 1500 Indwelling Urethral Catheter 1800 / 1800 1500 / 1500 Other: Date of Last Bowel Movement 07/10/18 07/10/18 07/10/18 Narrative: Awake alert. NG tube in place. Not following mute. Positive blink to threat some tracking. Flexion localization of the upper extremity withdraws lower extremity reflexes depressed plantarflex response further sensory cerebellar gait testing limited secondary mental status. - Constitutional no acute distress - Routine HEENT Exam Head: Present: normocephalic - Urinary Catheter Management Indwelling Urethral Catheter Cath placed during this visit: yes Urethral indwelling: Yes Reason for continuing: Acute urinary retention Insertion date: 06/20/18 Insertion time: 21:24 3-way Urethral Cath placed during this visit: yes Reason for continuing: Acute urinary retention Insertion date: 07/06/18 Insertion time: 18:00 Objective Laboratory Results - last 24 hr 07/10/18 07/11/18 07/11/18 20:43 00:38 04:27 WBC RBC Hgb Hct MCV MCH MCHC RDW Plt Count MPV Prelim Diff (Auto) Neut % (Auto) Lymph % (Auto) [place] % (Auto) Eos % (Auto) Baso % (Auto) Neut # (Auto) Lymph # (Auto) [place] # (Auto) Eos # (Auto) Baso # (Auto) WBC Differential Diff Scan Differential Comment Sodium 145 Potassium 3.2 L Chloride 107 Carbon Dioxide 28.5 Anion Gap 10 BUN 21 H Creatinine 0.86 Estimated GFR 88 L POC Glucose 272 H 205 H Random Glucose 81 Calcium 8.2 L Phosphorus 2.5 Magnesium 1.8 Total Bilirubin 0.5 AST 104 H ALT 148 H Alkaline Phosphatase 136 H Total Protein 6.2 L Albumin 2.2 L 07/11/18 07/11/18 07/11/18 04:46 04:51 11:07 WBC 5.1 RBC 3.52 L Hgb 10.9 L Hct 32.1 L MCV 91.4 MCH 31.0 MCHC 33.9 RDW 15.7 Plt Count 76 L MPV 10.1 Prelim Diff (Auto) Slide review pending Neut % (Auto) 76.7 H Lymph % (Auto) 16.8 [place] % (Auto) 5.2 Eos % (Auto) 0.2 Baso % (Auto) 1.1 Neut # (Auto) 3.9 Lymph # (Auto) 0.9 L [place] # (Auto) 0.3 Eos # (Auto) 0.0 Baso # (Auto) 0.1 WBC Differential . Diff Scan Auto diff confirmed Differential Comment . Sodium Potassium Chloride Carbon Dioxide Anion Gap BUN Creatinine Estimated GFR POC Glucose 94 178 H Random Glucose Calcium Phosphorus Magnesium Total Bilirubin AST ALT Alkaline Phosphatase Total Protein Albumin Review/Management - Diagnosis (1) Encephalopathy Code(s): G93.40 - Encephalopathy, unspecified Status: Acute Current Visit: Yes (2) Respiratory failure Code(s): J96.90 - Respiratory failure, unspecified, unspecified whether with hypoxia or hypercapnia Status: Acute Current Visit: Yes (3) Non-ST elevated myocardial infarction (non-STEMI) Code(s): I21.4 - Non-ST elevation (NSTEMI) myocardial infarction Status: Acute Current Visit: Yes (4) Cardiomyopathy Code(s): I42.9 - Cardiomyopathy, unspecified Status: Acute Current Visit: Yes - Review/Management Plan: Suspected hypoxic, metabolic encephalopathy Patient is getting tube feeds Recommendations Follow-up EEG Patient has a pacemaker and therefore cannot get an MRI scan We will get a follow-up CT brain noncontrast Follow exam Discussed with RN (2) Respiratory failure Qualifiers: Chronicity: acute Respiratory failure complication: hypoxia Qualified Code(s ): J96.01 - Acute respiratory failure with hypoxia (4) Cardiomyopathy Qualifiers: Cardiomyopathy type: viral Qualified Code(s): B33.24 - Viral cardiomyopathy
--- NOTE | 2018-07-11 17:59 | P.PNWCN ---
Wound Care Nurse Consult Additional information: Attempted to see patient today for possible pressure injury to sacrum and medial and lateral foot. Patient not seen, spoke with RN Marta Sorensen 5th floor [facility] [place]. Patient is restless and combative. RN will call when she receives medication orders to calm patient for wound assessment. Incision - Patient Status Premedicated for Pain Prior to Dressing Change: No
[2018-07-12] MEDS: Dexmedetomidine Inj 200 MCG in Sodium Chlor 0.9% Inj 48 ML IV.CONT PRN ×6 (02:19→22:09)
[2018-07-12] MEDS: Dextrose 50% in Water 50 ML Vial IV.PUSH PRN (04:25)
[2018-07-12] MEDS: Insulin NovoLOG Aspart Correctional Sugar Inj SQ SCH ×5 (04:26→19:54)
[2018-07-12] MEDS: Baclofen 10 MG Tablet PO SCH ×2 (05:19→14:49)
[2018-07-12 05:37] LABS: Baso % (Auto) 0.3 % (0.0-2.0); Eos % (Auto) 0.2 % (0.0-4.0); Hematocrit 32.9 % (39.0-51.0); Hemoglobin 11.1 gm/dL (13.0-17.0); Lymph # (Auto) 0.3 th/mm3 (1.0-4.8); Lymph % (Auto) 3.8 % (9.0-44.0); Mean Corpuscular HGB Conc 33.8 % (32.0-36.0); Mean Corpuscular Hemoglobin 31.1 pg (27.0-34.0); Mean Corpuscular Volume 92.1 fL (80.0-100.0); Mean Platelet Volume 10.5 fL (7.0-11.0); Mono # (Auto) 0.3 th/mm3 (0.0-0.9); Mono % (Auto) 3.3 % (0.0-8.0); Neut # (Auto) 8.2 th/mm3 (1.8-7.7); Neut % (Auto) 92.4 % (16.0-70.0); Platelet Count 71 th/mm3 (150-450); Red Blood Count 3.57 mil/mm3 (4.50-5.90); Red Cell Distribution Width 15.8 % (11.6-17.2); White Blood Count 8.8 th/mm3 (4.0-11.0)
[2018-07-12 06:04] LABS: Albumin 2.2 g/dL (3.4-5.0); Anion Gap 11 meq/L (5-15); Aspartate Aminotransferase 78 U/L (15-37); Blood Urea Nitrogen 23 mg/dL (7-18); Calcium 8.2 mg/dL (8.5-10.1); Carbon Dioxide 28.3 meq/L (21.0-32.0); Chloride 108 meq/L (98-107); Glomerular Filtration Rate 82 mL/min (>89); Glucose,Random 159 mg/dL (74-106); Magnesium 1.7 mg/dL (1.5-2.5); Potassium 3.3 meq/L (3.5-5.1); Sodium 147 meq/L (136-145)
[2018-07-12 06:09] LABS: Alanine Aminotransferase 129 U/L (12-78); Alkaline Phosphatase 142 U/L (45-117); Total Protein 6.3 g/dL (6.4-8.2)
--- NOTE | 2018-07-12 08:24 | P.PNIM ---
Subjective Interval history: f/u; encephalopathy/ NSTEMI in no acute distress. but still on restraints and not following commands. NG tube in place. d/w the RN. Physical Exam Vital signs: Vital Signs 07/11/18 09:00 07/11/18 10:00 07/11/18 10:01 Temperature Pulse Rate 75 71 73 Respiratory Rate 27 H 25 H 26 H Blood Pressure 148/67 H 125/58 L Pulse Oximetry 97 97 97 07/11/18 10:41 07/11/18 11:00 07/11/18 12:00 Temperature Pulse Rate 70 73 63 Respiratory Rate 23 26 H 22 Blood Pressure 123/87 131/63 Pulse Oximetry 97 97 100 07/11/18 14:00 07/11/18 16:00 07/11/18 16:01 Temperature 98.3 F Pulse Rate 59 L 59 L 59 L Respiratory Rate 18 17 Blood Pressure 111/56 L Pulse Oximetry 100 100 07/11/18 17:00 07/11/18 18:00 07/11/18 18:01 Temperature Pulse Rate 60 60 60 Respiratory Rate 22 21 21 Blood Pressure 130/60 112/56 L Pulse Oximetry 100 100 100 07/11/18 20:00 07/11/18 21:00 07/11/18 21:02 Temperature 97.8 F Pulse Rate 60 60 Respiratory Rate 26 H 16 Blood Pressure 116/90 Pulse Oximetry 100 98 07/11/18 22:00 07/12/18 00:00 07/12/18 02:00 Temperature 97.2 F L Pulse Rate 60 60 70 Respiratory Rate 24 Blood Pressure 111/54 L Pulse Oximetry 100 07/12/18 04:00 07/12/18 04:18 07/12/18 06:00 Temperature 97.4 F L Pulse Rate 69 76 69 Respiratory Rate 30 H 20 Blood Pressure 169/67 H Pulse Oximetry 99 Intake & Output 07/11/18 07/12/18 07/12/18 18:59 06:59 18:59 Intake Total 1537 / 1537 1229 / 1229 Output Total 2150 / 2150 Balance -613 / -613 1229 / 1229 Weight 57.5 kg Intake: IV 450 / 450 100 / 100 Precedex Inj 200 MCG In NS Inj 150 / 150 100 / 100 48 ML @ 0.1 MCG/KG/HR 1.58 mls/ hr IV.CONT TITRATE PRN Rx#: [id number] KCl 20 mEq Premix Inj 20 meq In 300 / 300 100 ml @ 50 mls/hr IV.SIG Q2H PRN Rx#:[id number] Oral 0 / 0 Tube Feeding 487 / 487 529 / 529 Water Bolus Amount 600 / 600 600 / 600 Output: Urine Amount (Catheter) 21490 Indwelling Urethral Catheter 2149 Other: Date of Last Bowel Movement 07/10/18 07/10/18 # Bowel Movements 0 - Constitutional no acute distress - Routine Respiratory Exam Present: CTA bilaterally - Routine Cardiovascular Exam Present: RRR - Routine Abdominal Exam Present: soft - Routine Extremities Exam Comments: no pedal edema. - Routine Neurological Exam somewhat restless and not following commands. - Urinary Catheter Management Indwelling Urethral Catheter Cath placed during this visit: yes Urethral indwelling: Yes Reason for continuing: Acute urinary retention Insertion date: 06/20/18 Insertion time: 21:24 3-way Urethral Cath placed during this visit: yes Reason for continuing: Acute urinary retention Insertion date: 07/06/18 Insertion time: 18:00 Results - Labs CBC & Chem 7: 07/12/18 04:58 07/12/18 04:58 Laboratory Results - last 24 hr 07/11/18 07/11/18 07/11/18 04:27 11:07 18:00 WBC RBC Hgb Hct MCV MCH MCHC RDW Plt Count MPV Prelim Diff (Auto) Neut % (Auto) Lymph % (Auto) [place] % (Auto) Eos % (Auto) Baso % (Auto) Neut # (Auto) Lymph # (Auto) [place] # (Auto) Eos # (Auto) Baso # (Auto) Differential Comment Sodium Potassium Chloride Carbon Dioxide Anion Gap BUN Creatinine Estimated GFR POC Glucose 178 H 291 H Random Glucose Calcium Phosphorus Magnesium Total Bilirubin AST ALT Alkaline Phosphatase Total Protein Albumin Vitamin B12 1195 H 07/11/18 07/11/18 07/12/18 20:03 23:19 00:44 WBC RBC Hgb Hct MCV MCH MCHC RDW Plt Count MPV Prelim Diff (Auto) Neut % (Auto) Lymph % (Auto) [place] % (Auto) Eos % (Auto) Baso % (Auto) Neut # (Auto) Lymph # (Auto) [place] # (Auto) Eos # (Auto) Baso # (Auto) Differential Comment Sodium Potassium 4.0 D Chloride Carbon Dioxide Anion Gap BUN Creatinine Estimated GFR POC Glucose 321 H 178 H Random Glucose Calcium Phosphorus Magnesium Total Bilirubin AST ALT Alkaline Phosphatase Total Protein Albumin Vitamin B12 07/12/18 07/12/18 07/12/18 04:15 04:36 04:58 WBC 8.8 RBC 3.57 L Hgb 11.1 L Hct 32.9 L MCV 92.1 MCH 31.1 MCHC 33.8 RDW 15.8 Plt Count 71 L MPV 10.5 Prelim Diff (Auto) Slide review pending Neut % (Auto) 92.4 H Lymph % (Auto) 3.8 L [place] % (Auto) 3.3 Eos % (Auto) 0.2 Baso % (Auto) 0.3 Neut # (Auto) 8.2 H Lymph # (Auto) 0.3 L [place] # (Auto) 0.3 Eos # (Auto) 0.0 Baso # (Auto) 0.0 Differential Comment . Sodium Potassium Chloride Carbon Dioxide Anion Gap BUN Creatinine Estimated GFR POC Glucose 57 L 140 H Random Glucose Calcium Phosphorus Magnesium Total Bilirubin AST ALT Alkaline Phosphatase Total Protein Albumin Vitamin B12 07/12/18 04:58 WBC RBC Hgb Hct MCV MCH MCHC RDW Plt Count MPV Prelim Diff (Auto) Neut % (Auto) Lymph % (Auto) [place] % (Auto) Eos % (Auto) Baso % (Auto) Neut # (Auto) Lymph # (Auto) [place] # (Auto) Eos # (Auto) Baso # (Auto) Differential Comment Sodium 147 H Potassium 3.3 L Chloride 108 H Carbon Dioxide 28.3 Anion Gap 11 BUN 23 H Creatinine 0.91 Estimated GFR 82 L POC Glucose Random Glucose 159 H Calcium 8.2 L Phosphorus 2.0 L Magnesium 1.7 Total Bilirubin 0.4 AST 78 H ALT 129 H Alkaline Phosphatase 142 H Total Protein 6.3 L Albumin 2.2 L Vitamin B12 - Procedures intubation/ cardiac cath. Assessment and Plan - Plan Resp failure- extubated 07/09 continue with neb treatment as needed. Acute decompensated CHF - systolic and diastolic EF 20% -appears euvolemic- s/p defibrillator placement continue BB and diuretic-no ENA due to FIDE- cardiology following. Staph aureus pneumonia -afebrile over the last 48 hours treated- continue to monitor. Atrial fibrillation -rate controlled- continue BB Non-STEMI- -Cardiac cath per Dr. Noonan. Angiographically mild to moderate 3 -vessel coronary artery disease. EF 20%. continue aspirin, BB and statin. FIDE -creatinine normalizing, urine output remains adequate encephalopathy- evaluated by neurology. CT and EEG ordered but the patient is restless. seroquel was increased. NPO for now per ST- continue with tube feeding for now. Hypernatremia -resolved Thrombocytopenia -unchanged- will monitor. Adynamic ileus - ?[place] -distention is improved Erectile Dysfunction PAD- continue aspirin and statin COPD- continue with neb treatment. pulmonary following. elevated LFT's- will monitor closely while on statin. DVT prophylaxis with subq Lovenox palliative care following. will try to talk to the and palliative care today regarding the goals and extent of care/ PEG placement and code status.
[2018-07-12 08:26] LABS: Lymphocytes 6 % (9-44); Monocytes 1 % (0-8)
[2018-07-12 08:27] LABS: Ovalocytes 1+; Platelet Morphology Normal (Normal)
[2018-07-12] MEDS: Brimonidine 0.15% Opth Drops 5 ML Bottle EACH EYE SCH ×2 (10:25→22:07)
[2018-07-12] MEDS: Bisacodyl 10 MG Supp RECTAL SCH (10:25)
[2018-07-12] MEDS: Hypromellose 0.3% Opth Gel 10 GM Bottle EACH EYE SCH ×2 (10:25→22:07)
[2018-07-12] MEDS: Senna/Docusate Sodium 8.6/50 MG Tablet PO SCH ×2 (10:26→22:08)
[2018-07-12] MEDS: Metoprolol Tartrate 25 MG Tablet PO SCH ×2 (10:26→22:08)
[2018-07-12] MEDS: Enoxaparin Inj 40 MG/0.4 ML Syringe SQ SCH (10:26)
[2018-07-12] MEDS: QUEtiapine 25 MG Tablet NG/OG SCH ×2 (10:29→17:03)
[2018-07-12] MEDS: Potassium Phosphate Inj 30 MMOL in Sodium Chlor 0.9% Inj 250 ML IV.SIG PRN (11:09)
--- NOTE | 2018-07-12 11:52 | P.PNCA ---
Subjective Interval history: sedated, restrained in nad Physical Exam Vital signs: Vital Signs 07/11/18 12:00 07/11/18 14:00 07/11/18 16:00 Temperature Pulse Rate 63 59 L 59 L Respiratory Rate 22 18 Blood Pressure 131/63 Pulse Oximetry 100 100 07/11/18 16:01 07/11/18 17:00 07/11/18 18:00 Temperature 98.3 F Pulse Rate 59 L 60 60 Respiratory Rate 17 22 21 Blood Pressure 111/56 L 130/60 Pulse Oximetry 100 100 100 07/11/18 18:01 07/11/18 20:00 07/11/18 21:00 Temperature 97.8 F Pulse Rate 60 60 60 Respiratory Rate 21 26 H 16 Blood Pressure 112/56 L 116/90 Pulse Oximetry 100 100 07/11/18 21:02 07/11/18 22:00 07/12/18 00:00 Temperature 97.2 F L Pulse Rate 60 60 Respiratory Rate 24 Blood Pressure 111/54 L Pulse Oximetry 98 100 07/12/18 02:00 07/12/18 04:00 07/12/18 04:18 Temperature 97.4 F L Pulse Rate 70 69 76 Respiratory Rate 30 H 20 Blood Pressure 169/67 H Pulse Oximetry 99 07/12/18 06:00 07/12/18 09:17 07/12/18 09:19 Temperature Pulse Rate 69 61 Respiratory Rate 26 H Blood Pressure Pulse Oximetry 100 07/12/18 09:30 Temperature Pulse Rate Respiratory Rate Blood Pressure Pulse Oximetry 97 Intake & Output 07/11/18 07/12/18 07/12/18 18:59 06:59 18:59 Intake Total 1537 / 1537 1229 / 1229 100 / 100 Output Total 2150 / 2150 Balance -613 / -613 1229 / 1229 100 / 100 Weight 57.5 kg Intake: IV 450 / 450 100 / 100 100 / 100 Precedex Inj 200 MCG In NS Inj 150 / 150 100 / 100 100 / 100 48 ML @ 0.1 MCG/KG/HR 1.58 mls/ hr IV.CONT TITRATE PRN Rx#: [id number] KCl 20 mEq Premix Inj 20 meq In 300 / 300 100 ml @ 50 mls/hr IV.SIG Q2H PRN Rx#:[id number] Oral 0 / 0 Tube Feeding 487 / 487 529 / 529 Water Bolus Amount 600 / 600 600 / 600 Output: Urine Amount (Catheter) 2149 Indwelling Urethral Catheter 2149 Other: Date of Last Bowel Movement 07/10/18 07/10/18 # Bowel Movements 0 - Urinary Catheter Management Indwelling Urethral Catheter Cath placed during this visit: yes Urethral indwelling: Yes Reason for continuing: Acute urinary retention Insertion date: 06/20/18 Insertion time: 21:24 3-way Urethral Cath placed during this visit: yes Reason for continuing: Acute urinary retention Insertion date: 07/06/18 Insertion time: 18:00 Assessment and Plan - Assessment (1) Cardiomyopathy Code(s): I42.9 - Cardiomyopathy, unspecified Status: Acute (2) Cardiomyopathy Code(s): I42.9 - Cardiomyopathy, unspecified Status: Acute (3) PVD (peripheral vascular disease) Code(s): I73.9 - Peripheral vascular disease, unspecified Status: Acute (4) PVD (peripheral vascular disease) Code(s): I73.9 - Peripheral vascular disease, unspecified Status: Acute (5) Tobacco abuse Code(s): Z72.0 - Tobacco use Status: Acute (6) Respiratory failure Code(s): J96.90 - Respiratory failure, unspecified, unspecified whether with hypoxia or hypercapnia Status: Acute (7) Non-ST elevated myocardial infarction (non-STEMI) Code(s): I21.4 - Non-ST elevation (NSTEMI) myocardial infarction Status: Acute (8) Pulmonary edema cardiac cause Code(s): I50.1 - Left ventricular failure, unspecified Status: Acute - Plan 1.) NICM - end stage, euvolemic, refuses in state transfer, requesting transfer to [facility], d/w Dr Solis; beta ana and hellen held due to hypotension, diuresing to optimize potential extubation, he has hypernatremia, continue lopressor, start lisinopril 2.5 mg qd 2.) CAD - nonobstructive, continue aspirin, pravachol 3.) Encephalopathy - moderate per EEG on sedation, neuro following 4.) d/w case with at the bedside 07/04/18 5.) Respiratory failure - he is euvolemic, appears to be due to pulmonary and/ or encephalopathic etilology, extubated 07/09/18 but restrained and not following commands, will follow trends in mental and respiratory status, d/w at the bedside 07/11/18, she says he has placement @ [facility], I advised her to d /w case management travel arrangements (2) Cardiomyopathy Qualifiers: Cardiomyopathy type: viral Qualified Code(s): B33.24 - Viral cardiomyopathy (6) Respiratory failure Qualifiers: Chronicity: acute Respiratory failure complication: hypoxia Qualified Code(s ): J96.01 - Acute respiratory failure with hypoxia
--- NOTE | 2018-07-12 14:29 | P.PNPAL ---
Reason for Visit Reason for visit: a. To assist with evaluation and management of symptoms including: dyspnea, pain, agitation, constipation b. To assist medical decision maker(s) with: better understanding of current medical conditions; weighing benefits/burdens of medical treatment options; making medical treatment decisions. Subjective Subjective/Interval History: Pt resting in bed, restless, in BUE restraints. He is shaking his head and moving his arms. Seroquel increased to 50mg. Does not follow commands, cannot verbalize pain. Does not seem tender on exam, just restless. Sat 97 on 3L o2. tolerating TF. Neuro consulted, EEG and CT pending. Family/Friend Interactions: Had meeting with pt's and attending physician Dr Snow. Discussed medical status, prognosis, possible need for PEG tube, continued aggressive care vs transition to comfort and possibly hospice, code status. wants to get him home, considering med flight. wants to speak with children again re code status, PEG tube, and meet again tomorrow with Palliative and Dr Snow. Objective Vital Signs: Vital Signs 07/11/18 16:00 07/11/18 16:01 07/11/18 17:00 Temperature 98.3 F Pulse Rate 59 L 59 L 60 Respiratory Rate 18 17 22 Blood Pressure 111/56 L 130/60 Pulse Oximetry 100 100 100 07/11/18 18:00 07/11/18 18:01 07/11/18 20:00 Temperature 97.8 F Pulse Rate 60 60 60 Respiratory Rate 21 21 26 H Blood Pressure 112/56 L 116/90 Pulse Oximetry 100 100 100 07/11/18 21:00 07/11/18 21:02 07/11/18 22:00 Temperature Pulse Rate 60 60 Respiratory Rate 16 Blood Pressure Pulse Oximetry 98 07/12/18 00:00 07/12/18 02:00 07/12/18 04:00 Temperature 97.2 F L 97.4 F L Pulse Rate 60 70 69 Respiratory Rate 24 30 H Blood Pressure 111/54 L 169/67 H Pulse Oximetry 100 99 07/12/18 04:18 07/12/18 06:00 07/12/18 07:00 Temperature Pulse Rate 76 69 75 Respiratory Rate 20 19 Blood Pressure 111/56 L Pulse Oximetry 96 07/12/18 08:00 07/12/18 09:00 07/12/18 09:17 Temperature 99 F Pulse Rate 68 60 61 Respiratory Rate 23 31 H 26 H Blood Pressure 119/58 L 119/58 L Pulse Oximetry 97 97 07/12/18 09:19 07/12/18 09:30 07/12/18 10:00 Temperature Pulse Rate 73 Respiratory Rate 26 H Blood Pressure 124/56 L Pulse Oximetry 100 97 99 07/12/18 11:00 07/12/18 12:00 Temperature Pulse Rate 72 67 Respiratory Rate 25 H 22 Blood Pressure 107/54 L 114/56 L Pulse Oximetry 93 L 99 Intake & Output 07/11/18 07/12/18 07/12/18 18:59 06:59 18:59 Intake Total 1537 / 1537 1229 / 1229 150 / 150 Output Total 2149 / 2149 Balance -613 / -613 1229 / 1229 150 / 150 Weight 57.5 kg Intake: IV 450 / 450 100 / 100 150 / 150 Precedex Inj 200 MCG In NS Inj 150 / 150 100 / 100 150 / 150 48 ML @ 0.1 MCG/KG/HR 1.58 mls/ hr IV.CONT TITRATE PRN Rx#: [id number] KCl 20 mEq Premix Inj 20 meq In 300 / 300 100 ml @ 50 mls/hr IV.SIG Q2H PRN Rx#:[id number] Oral 0 / 0 Tube Feeding 487 / 487 529 / 529 Water Bolus Amount 600 / 600 600 / 600 Output: Urine Amount (Catheter) 2149 Indwelling Urethral Catheter 2149 Other: Date of Last Bowel Movement 07/10/18 07/10/18 07/10/18 # Bowel Movements 0 Physical Exam: SKIN: No jaundice, rashes, or lesions. No wounds seen anteriorly. Skin temperature appropriate. Not diaphoretic. HEAD: Atraumatic. Normocephalic. EYES: No scleral icterus. No injection or drainage. Fundi not examined. ENT: Nose without bleeding or purulent drainage. NGT CARDIOVASCULAR: irr HR RESPIRATORY/CHEST: Symmetric, unlabored respirations. CTA GASTROINTESTINAL: ABD soft, nontender, mildly distended, BS + GENITOURINARY: Without palpable bladder distension. Nevarez catheter in place. MUSCULOSKELETAL: BUE in restraints. Extremities without clubbing, cyanosis, or edema. No mottling or clubbing. NEUROLOGICAL: restless, uncooperative PSYCHIATRIC: seems anxious Diagnostic Tests Laboratory: Laboratory Results - last 72 hr 07/09/18 07/09/18 07/09/18 17:30 20:04 20:07 WBC RBC Hgb Hct MCV MCH MCHC RDW Plt Count MPV Prelim Diff (Auto) Neut % (Auto) Lymph % (Auto) [place] % (Auto) Eos % (Auto) Baso % (Auto) Neut # (Auto) Lymph # (Auto) [place] # (Auto) Eos # (Auto) Baso # (Auto) WBC Differential Diff Scan Seg Neuts % (Manual) Band Neuts % (Manual) Lymphocytes % (Manual) Monocytes % (Manual) Abs Neuts (Manual) Differential Comment Platelet Estimate Platelet Morphology Ovalocytes Sodium Potassium 3.3 L Chloride Carbon Dioxide Anion Gap BUN Creatinine Estimated GFR POC Glucose 297 H 296 H Random Glucose Calcium Phosphorus 3.8 D Magnesium Total Bilirubin AST ALT Alkaline Phosphatase Total Protein Albumin Vitamin B12 07/09/18 07/10/18 07/10/18 23:39 04:21 04:21 WBC 8.4 RBC 3.02 L Hgb 9.5 L Hct 28.0 L MCV 92.6 MCH 31.4 MCHC 33.9 RDW 15.5 Plt Count 71 L MPV 10.9 Prelim Diff (Auto) Slide review pending Neut % (Auto) 85.2 H Lymph % (Auto) 8.9 L [place] % (Auto) 5.4 Eos % (Auto) 0.0 Baso % (Auto) 0.5 Neut # (Auto) 7.2 Lymph # (Auto) 0.8 L [place] # (Auto) 0.5 Eos # (Auto) 0.0 Baso # (Auto) 0.0 WBC Differential . Diff Scan Auto diff confirmed Seg Neuts % (Manual) Band Neuts % (Manual) Lymphocytes % (Manual) Monocytes % (Manual) Abs Neuts (Manual) Differential Comment . Platelet Estimate Low L Platelet Morphology Enlarged H Ovalocytes Sodium 143 Potassium 3.9 Chloride 108 H Carbon Dioxide 25.1 Anion Gap 10 BUN 20 H Creatinine 0.90 Estimated GFR 83 L POC Glucose 212 H Random Glucose 97 D Calcium 7.9 L Phosphorus 2.4 L D Magnesium 1.9 Total Bilirubin 0.7 AST 92 H ALT 122 H Alkaline Phosphatase 113 Total Protein 5.9 L Albumin 2.1 L Vitamin B12 07/10/18 07/10/1818 04:38 08:10 12:39 WBC RBC Hgb Hct MCV MCH MCHC RDW Plt Count MPV Prelim Diff (Auto) Neut % (Auto) Lymph % (Auto) [place] % (Auto) Eos % (Auto) Baso % (Auto) Neut # (Auto) Lymph # (Auto) [place] # (Auto) Eos # (Auto) Baso # (Auto) WBC Differential Diff Scan Seg Neuts % (Manual) Band Neuts % (Manual) Lymphocytes % (Manual) Monocytes % (Manual) Abs Neuts (Manual) Differential Comment Platelet Estimate Platelet Morphology Ovalocytes Sodium Potassium Chloride Carbon Dioxide Anion Gap BUN Creatinine Estimated GFR POC Glucose 125 H 226 H 242 H Random Glucose Calcium Phosphorus Magnesium Total Bilirubin AST ALT Alkaline Phosphatase Total Protein Albumin Vitamin B12 07/10/18 07/11/18 07/11/18 20:43 00:38 04:27 WBC RBC Hgb Hct MCV MCH MCHC RDW Plt Count MPV Prelim Diff (Auto) Neut % (Auto) Lymph % (Auto) [place] % (Auto) Eos % (Auto) Baso % (Auto) Neut # (Auto) Lymph # (Auto) [place] # (Auto) Eos # (Auto) Baso # (Auto) WBC Differential Diff Scan Seg Neuts % (Manual) Band Neuts % (Manual) Lymphocytes % (Manual) Monocytes % (Manual) Abs Neuts (Manual) Differential Comment Platelet Estimate Platelet Morphology Ovalocytes Sodium 145 Potassium 3.2 L Chloride 107 Carbon Dioxide 28.5 Anion Gap 10 BUN 21 H Creatinine 0.86 Estimated GFR 88 L POC Glucose 272 H 205 H Random Glucose 81 Calcium 8.2 L Phosphorus 2.5 Magnesium 1.8 Total Bilirubin 0.5 AST 104 H ALT 148 H Alkaline Phosphatase 136 H Total Protein 6.2 L Albumin 2.2 L Vitamin B12 07/11/18 07/11/18 07/11/18 04:27 04:46 04:51 WBC 5.1 RBC 3.52 L Hgb 10.9 L Hct 32.1 L MCV 91.4 MCH 31.0 MCHC 33.9 RDW 15.7 Plt Count 76 L MPV 10.1 Prelim Diff (Auto) Slide review pending Neut % (Auto) 76.7 H Lymph % (Auto) 16.8 [place] % (Auto) 5.2 Eos % (Auto) 0.2 Baso % (Auto) 1.1 Neut # (Auto) 3.9 Lymph # (Auto) 0.9 L [place] # (Auto) 0.3 Eos # (Auto) 0.0 Baso # (Auto) 0.1 WBC Differential . Diff Scan Auto diff confirmed Seg Neuts % (Manual) Band Neuts % (Manual) Lymphocytes % (Manual) Monocytes % (Manual) Abs Neuts (Manual) Differential Comment . Platelet Estimate Platelet Morphology Ovalocytes Sodium Potassium Chloride Carbon Dioxide Anion Gap BUN Creatinine Estimated GFR POC Glucose 94 Random Glucose Calcium Phosphorus Magnesium Total Bilirubin AST ALT Alkaline Phosphatase Total Protein Albumin Vitamin B12 1195 H 07/11/18 07/11/18 07/11/18 11:07 18:00 20:03 WBC RBC Hgb Hct MCV MCH MCHC RDW Plt Count MPV Prelim Diff (Auto) Neut % (Auto) Lymph % (Auto) [place] % (Auto) Eos % (Auto) Baso % (Auto) Neut # (Auto) Lymph # (Auto) [place] # (Auto) Eos # (Auto) Baso # (Auto) WBC Differential Diff Scan Seg Neuts % (Manual) Band Neuts % (Manual) Lymphocytes % (Manual) Monocytes % (Manual) Abs Neuts (Manual) Differential Comment Platelet Estimate Platelet Morphology Ovalocytes Sodium Potassium Chloride Carbon Dioxide Anion Gap BUN Creatinine Estimated GFR POC Glucose 178 H 291 H 321 H Random Glucose Calcium Phosphorus Magnesium Total Bilirubin AST ALT Alkaline Phosphatase Total Protein Albumin Vitamin B12 07/11/18 07/12/18 07/12/18 23:19 00:44 04:15 WBC RBC Hgb Hct MCV MCH MCHC RDW Plt Count MPV Prelim Diff (Auto) Neut % (Auto) Lymph % (Auto) [place] % (Auto) Eos % (Auto) Baso % (Auto) Neut # (Auto) Lymph # (Auto) [place] # (Auto) Eos # (Auto) Baso # (Auto) WBC Differential Diff Scan Seg Neuts % (Manual) Band Neuts % (Manual) Lymphocytes % (Manual) Monocytes % (Manual) Abs Neuts (Manual) Differential Comment Platelet Estimate Platelet Morphology Ovalocytes Sodium Potassium 4.0 D Chloride Carbon Dioxide Anion Gap BUN Creatinine Estimated GFR POC Glucose 178 H 57 L Random Glucose Calcium Phosphorus Magnesium Total Bilirubin AST ALT Alkaline Phosphatase Total Protein Albumin Vitamin B12 07/12/18 07/12/18 07/12/18 04:36 04:58 04:58 WBC 8.8 RBC 3.57 L Hgb 11.1 L Hct 32.9 L MCV 92.1 MCH 31.1 MCHC 33.8 RDW 15.8 Plt Count 71 L MPV 10.5 Prelim Diff (Auto) Slide review pending Neut % (Auto) 92.4 H Lymph % (Auto) 3.8 L [place] % (Auto) 3.3 Eos % (Auto) 0.2 Baso % (Auto) 0.3 Neut # (Auto) 8.2 H Lymph # (Auto) 0.3 L [place] # (Auto) 0.3 Eos # (Auto) 0.0 Baso # (Auto) 0.0 WBC Differential Manual diff final Diff Scan Seg Neuts % (Manual) 79 H Band Neuts % (Manual) 14 H Lymphocytes % (Manual) 6 L Monocytes % (Manual) 1 Abs Neuts (Manual) 8.2 H Differential Comment . Platelet Estimate Low L Platelet Morphology Normal Ovalocytes 1+ H Sodium 147 H Potassium 3.3 L Chloride 108 H Carbon Dioxide 28.3 Anion Gap 11 BUN 23 H Creatinine 0.91 Estimated GFR 82 L POC Glucose 140 H Random Glucose 159 H Calcium 8.2 L Phosphorus 2.0 L Magnesium 1.7 Total Bilirubin 0.4 AST 78 H ALT 129 H Alkaline Phosphatase 142 H Total Protein 6.3 L Albumin 2.2 L Vitamin B12 07/12/18 10:30 WBC RBC Hgb Hct MCV MCH MCHC RDW Plt Count MPV Prelim Diff (Auto) Neut % (Auto) Lymph % (Auto) [place] % (Auto) Eos % (Auto) Baso % (Auto) Neut # (Auto) Lymph # (Auto) [place] # (Auto) Eos # (Auto) Baso # (Auto) WBC Differential Diff Scan Seg Neuts % (Manual) Band Neuts % (Manual) Lymphocytes % (Manual) Monocytes % (Manual) Abs Neuts (Manual) Differential Comment Platelet Estimate Platelet Morphology Ovalocytes Sodium Potassium Chloride Carbon Dioxide Anion Gap BUN Creatinine Estimated GFR POC Glucose 325 H Random Glucose Calcium Phosphorus Magnesium Total Bilirubin AST ALT Alkaline Phosphatase Total Protein Albumin Vitamin B12 Result Diagrams: 07/12/18 04:58 07/12/18 04:58 Microbiology: Microbiology 07/07/18 18:26 Gram Stain - Final Sputum - Endotracheal Sputum Culture - Final Staphylococcus aureus Klebsiella pneumoniae Imaging: ITS Impressions Abdomen/Bladder Ultrasound 06/21/18 00:00 CONCLUSION: 1. Increased echogenicity of both kidneys typical of chronic parenchymal disease. 2. No evidence of acute obstructive uropathy. 3. Bilateral benign appearing renal cysts. Abdomen/Pelvis CT 07/04/18 00:00 CONCLUSION: The bulging in the right lower quadrant is related to distention of the cecum. Head CT 07/04/18 00:00 CONCLUSION: 1. No acute intracranial abnormality is identified. Stable chronic findings include generalized atrophy and chronic periventricular white matter change. 2. Increased fluid in the right mastoid air cells and mild but new mucoperiosteal thickening in the ethmoid and sphenoid sinus. . Chest X-Ray 07/09/18 06:00 CONCLUSION: No significant change mild patchy consolidation of both bases. Abdomen X-Ray 07/10/18 08:00 CONCLUSION: No evidence of obstruction. Procedures: 06/23 reintubated 06/26 heart cath 07/09 extubated Assessment and Plan - Disease Oriented Problem List (1) Respiratory failure (2) Non-ST elevated myocardial infarction (non-STEMI) (3) Cardiomyopathy (4) PVD (peripheral vascular disease) (5) Tobacco abuse (6) Constipation - Symptom Scale (1) Dyspnea 0-10 Scale: Unable to quantify (2) Pain 0-10 Scale: Unable to quantify (3) Agitation 0-10 Scale: Unable to quantify Pertinent Non-Medical Issues: Psychosocial: Pt originally from [place]. with 4 kids. 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 Spiritual: jain. decline sterilization tech visit. Legal: Per [place] statute is proxy decision maker. Ethical issues impacting care: none Important Contacts: Kristine Avila, - [phone] Prognosis: This is a 72-year-old male with history CHF, COPD, tobacco abuse, diabetes who presented 06/20 [place] He has a defibrillator implanted. His baseline ejection fraction is 25% and he is now at less than 20%. Patient reintubated 06/23, extubated . Had cardiac cath 06/26 with finding 3 vessel CAD, non ischemic dilated cardiomyopathy. Unclear if he is candidate for heart transplant d/t significant COPD. He is at high risk for continued complications and decline. Code Status: Full Code Plan: - LEGAL DECISON MAKER -patient is incapacitated to make medical decisions. Per [place] statutes his proxy decision maker - CODE STATUS-full code - GOALS - Had meeting with pt's and attending physician Dr Snow. Discussed medical status, prognosis, possible need for PEG tube, continued aggressive care vs transition to comfort and possibly hospice, code status. wants to get him home, considering med flight. wants to speak with children again re code status, PEG tube, and meet again tomorrow with Palliative and Dr Snow. - SYMPTOMS - * pain - multifactorial- prolonged bedbound status, mult tubes and lines, had ileus, now with DTI sacrum. chest pain prior to admission. ileus is improved. at this time defer pain mgmt to [facility] * constipation - last BM 07/03. developed ileus which improved after administration GoLytely. tolerating TF. abd soft and nontender, mildly distended today. BS +. continue bowel regimen * dyspnea -reintubated 06/23. extubated 07/09. Recent N STEMI. EF < 20% . s/p cardiac cath 06/26 findings 3 vessel CAD, nonischemic dilated cardiomyopathy. pulmonology consulted for significant COPD. CV surgery consulted, not candidate at this time. pt extubated and has been agitated, precedex gtt. sats 97 on 3L o2 via [place]. scheduled DuoNeb's * agitation - multlifactorial. encephalopathy. extubated, still with agitation and not sleeping for days. today he is restless, shaking head and moving arms, uncooperative. seroquel was increased from 25 mg to 50 BID,. neuro following, EEG and CT pending. unclear if his encephalopathy will improve. sedation per [facility] - d/w RN - d/w attending - will see 07/[address] Snow - Palliative care will continue to follow during hospital course as condition evolves, to assist patient/decision-maker with understanding of medical conditions, weighing benefits/burdens of treatment options, for clarification of goals of treatment. Additionally will assist with any symptoms of palliative concern Attestation Attestation: To help prompt me to consider important information that might be impacting today's encounter and assessment, information from prior notes written by myself or my colleagues may have been "brought forward" into today's note. My signature on this note, however, is an attestation that I personally performed the exam, history, and/or decision-making noted today, and, unless otherwise indicated, the interactions with patient, family, and staff as well as the review of records all occurred today. I also attest that the listed assessment and stated plan reflect my best clinical judgment today based on the combination of historical information, prior notes, and today's exam/ interactions. When time spent is documented, it refers only to time spent today by the signer, or if indicated, combined time spent today by collaborating physician/nurse practitioner.
[2018-07-12 14:41] LABS: ABG Base Excess 4.2 mmol/L (-2-2); ABG PCO2 35 mmHg (38-42); ABG PO2 79 mmHG (61-120)
--- NOTE | 2018-07-12 14:42 | XR ---
EXAM DATE: 07/12/2018 2:37 PM EDT AGE/SEX: 72 years / Male INDICATIONS: Short of breath. CLINICAL DATA: This is the patient's subsequent encounter. Patient reports that signs and symptoms h ave been present for 4 - 6 days and indicates a pain score of Nonresponsive. MEDICAL/SURGICAL HISTORY: Chronic obstructive pulmonary disease. Congestive heart failure. Ga stroesophageal reflux disease. Benign prostatic hyperplasia. Bronchitis. Hypertension. Diabetes. Per ipheral vascular disease. Defibrillator. COMPARISON: C, CHEST 1V SINGLE AP, 07/09/2018. . FINDINGS: Patient has been extubated. NGT coursing beyond the GE junction. No new focal pleural or parenchymal opacities. Cardiac silhouette is stable with dual lead AICD device. Remainder of the exam is unchange d. CONCLUSION: 1. Persistent mild patchy bibasilar airspace disease, likely atelectasis. 2. No significant interval change following expiration. Electronically signed by: Carlton Chapa MD 07/12/2018 2:41 PM EDT
--- NOTE | 2018-07-12 15:58 | MG ---
cc: Jaime Johnson MD, PhD [id number]. TECHNIQUE: A 17-channel EEG. DESCRIPTION: Background rhythm reveals slowing in the delta frequency at 4-5 Hz. Amplitude is 30 microvolts. No lateralizing features are seen. No epileptiform features are identified. Photic stimulation results in a poor driving response. INTERPRETATION: Abnormal study consistent with a generalized encephalopathy. Jaime Johnson MD, PhD VALE/shai , 03:36 PM , 03:41 PM
--- NOTE | 2018-07-12 16:24 | P.PNWCN ---
Wound Care Nurse Consult Description: Received pressure ulcer consult form Doctor Nav for sacrum and medial and lateral L foot Communicated with: MACARIO Du [facility] [place] Gwendolyn Recommendation: Please cleanse opening DTI to sacrum with normal saline and pat dry. Apply Cavilon skin barrier film spray Apply maxorb II just over wound and cover with optifoam 4x4 gentle border. Change daily or PRN if saturated or dislodged. Please turn patient from L side to R side every 2 hours and PRN for comfort and offloading of pressure from lyubov prominences. Wound/Pressure Injury - Wound Sacrum Wound Staging: DTI (opening to full thickness skin loss) Wound Assessment: Ongoing Wound Type: Pressure Injury Is This a Chronic Wound: No Length: 6 (cm) Width: 5 (cm) Depth: 0 (non blanchable purple opening skin) Surrounding Tissue Appearance: Bright Red Drainage Description: Serosanguinous Drainage Amount: None Dressing Status: Changed Topical: Cavilon skin barrier film spray Primary Dressing: Maxorb II Cover Dressing: ABD pad Tape Type: Paper Wound Dressing Change Date: 07/12/18 - Additional Information Patient seen for pressure ulcer to sacral area. Patinet assessed with MACARIO Du, Jenni Morales RN, [facility] and teletypewriter installer. Patinet was turned with maximum assist to L side for wound assessment. Patient sacral area is noted with Deep tissue injury that is opening in 3 areas to full thickness skin loss. Wound measurements and description are noted above. Periwound presents with erythema that is slow to deborah. Calazime skin protectant paste in place to sacral area was cleansed with normal saline and gauze pad gently to remove Calazime in place. Skin barrier film was then applied to opening DTI and wound was covered with maxorb II as primary dressing and Secured with ABD pad and paper tape. Optifoam gentle border 4x4 was not available on floor.RN to apply over maxorb II per wound care recommendations.
[2018-07-12] MEDS: LORazepam 0.5 MG Tablet PO SCH (17:02)
--- NOTE | 2018-07-12 22:54 | CT ---
EXAM DATE: 07/12/2018 10:48 PM EDT AGE/SEX: 72 years / Male INDICATIONS: Altered mental status. CLINICAL DATA: This is the patient's initial encounter. Patient reports that signs and symptoms have been present for 1 day and indicates a pain score of Nonresponsive. MEDICAL/SURGICAL HISTORY: Cardiovascular disease. Chronic obstructive pulmonary disease. Hyperten david. Diabetes. Pacemaker. RADIATION DOSE: 56.35 CTDI (mGy) COMPARISON: [facility] [place], CT HEAD W/O CONTRAST, 07/04/2018. . TECHNIQUE: CT of the head without contrast. Using automated exposure control and adjustment of the mA and/or kV according to patient size, radiation dose was kept as low as reasonably achievable to ob tain optimal diagnostic quality images. DICOM format image data is available electronically for revi ew and comparison. FINDINGS: Cerebrum: The ventricles and cortical sulci are widened are normal for age. No evidence of midline shift, mass lesion, hemorrhage or acute infarction. No extraaxial fluid collections are seen. Posterior Fossa: The cerebellum and brainstem are intact. The 4th ventricle is midline. The cerebe llopontine angle is unremarkable. Extracranial: The visualized portion of the orbits is intact. There is an air-fluid level seen in th e posterior right sphenoid sinus. There is increased density within the mastoid air cells and middle ear regions. Skull: The calvaria is intact. No evidence of skull fracture. CONCLUSION: 1. No acute intracranial abnormality. 2. Atrophy. 3. Increased density seen throughout the mastoid air cells and middle ear regions. . Electronically signed by: Michael Goodson MD 07/12/2018 10:53 PM EDT
[2018-07-13] MEDS: Baclofen 10 MG Tablet PO SCH ×4 (00:12→22:58)
[2018-07-13] MEDS: LORazepam 0.5 MG Tablet PO SCH ×4 (00:12→18:02)
[2018-07-13] MEDS: Dexmedetomidine Inj 200 MCG in Sodium Chlor 0.9% Inj 48 ML IV.CONT PRN ×5 (00:13→23:46)
[2018-07-13] MEDS: Insulin NovoLOG Aspart Correctional Sugar Inj SQ SCH ×6 (01:49→20:00)
[2018-07-13 05:24] LABS: Baso % (Auto) 0.2 % (0.0-2.0); Eos % (Auto) 0.3 % (0.0-4.0); Hematocrit 34.1 % (39.0-51.0); Hemoglobin 11.1 gm/dL (13.0-17.0); Lymph # (Auto) 0.7 th/mm3 (1.0-4.8); Lymph % (Auto) 7.6 % (9.0-44.0); Mean Corpuscular HGB Conc 32.7 % (32.0-36.0); Mean Corpuscular Hemoglobin 30.7 pg (27.0-34.0); Mean Corpuscular Volume 93.9 fL (80.0-100.0); Mean Platelet Volume 11.1 fL (7.0-11.0); Mono # (Auto) 0.5 th/mm3 (0.0-0.9); Mono % (Auto) 5.5 % (0.0-8.0); Neut # (Auto) 8.2 th/mm3 (1.8-7.7); Neut % (Auto) 86.4 % (16.0-70.0); Platelet Count 57 th/mm3 (150-450); Red Blood Count 3.63 mil/mm3 (4.50-5.90); Red Cell Distribution Width 16.2 % (11.6-17.2); White Blood Count 9.5 th/mm3 (4.0-11.0)
[2018-07-13 06:01] LABS: Alanine Aminotransferase 100 U/L (12-78); Albumin 2.1 g/dL (3.4-5.0); Alkaline Phosphatase 135 U/L (45-117); Anion Gap 11 meq/L (5-15); Aspartate Aminotransferase 56 U/L (15-37); Blood Urea Nitrogen 28 mg/dL (7-18); Calcium 8.1 mg/dL (8.5-10.1); Carbon Dioxide 30.2 meq/L (21.0-32.0); Chloride 105 meq/L (98-107); Glomerular Filtration Rate 75 mL/min (>89); Glucose,Random 292 mg/dL (74-106); Phosphorus 3.6 mg/dL (2.5-4.9); Sodium 146 meq/L (136-145); Total Protein 6.4 g/dL (6.4-8.2)
--- NOTE | 2018-07-13 08:01 | P.PNNEU ---
Subjective Subjective Comments: No acute events Active Medications: Active Medications Acetaminophen (Tylenol Liq) 650 mg NG/OG Q6H PRN PRN Reason: FEVER Last Admin: 07/12/18 19:54 Dose: 650 mg Al Hydroxide/Mg Hydroxide (Milk Of Magnesia Liq) 30 ml PO Q12H PRN PRN Reason: Mild Constipation Albuterol (Duoneb Neb (Prn)) 1 ampul NEB Q4HR NEB PRN PRN Reason: SHORTNESS OF BREATH/WHEEZING Albuterol (Duoneb Neb (Yon)) 1 ampul NEB Q6HR NEB [facility] Last Admin: 07/13/18 03:45 Dose: 1 ampul Artificial Tears (Genteal Severe Dry Eye Relief 0.3% Opth Gel) 1 drops EACH EYE BID [facility] Last Admin: 07/12/18 22:07 Dose: 1 drops Aspirin (Aspirin Chew) 162 mg PO DAILY [facility] Last Admin: 07/12/18 10:25 Dose: 162 mg Baclofen (Lioresal) 10 mg PO Q8HR [facility] Last Admin: 07/13/18 06:25 Dose: 10 mg Bisacodyl (Dulcolax Supp) 10 mg RECTAL DAILY PRN PRN Reason: SEVERE CONSITIPATION Bisacodyl (Dulcolax Supp) 10 mg RECTAL DAILY [facility] Last Admin: 07/12/18 10:25 Dose: Not Given Brimonidine Tartrate (Alphagan P 0.15% Opth Drops) 1 drops EACH EYE BID [facility] Last Admin: 07/12/18 22:07 Dose: 1 drops Dextrose (D50w Vial) 50 ml IV.PUSH UNSCH PRN PRN Reason: PER HYPOGLYCEMIA PROTOCOL Last Admin: 07/12/18 04:25 Dose: 50 ml Enoxaparin Sodium (Lovenox Inj) 40 mg SQ DAILY [facility] Last Admin: 07/12/18 10:26 Dose: 40 mg Furosemide (Lasix Inj) 40 mg IV.PUSH DAILY@1400 [facility] Last Admin: 07/12/18 14:49 Dose: 40 mg Glucagon (Glucagon Inj) 1 mg OTHER PRN PRN PRN Reason: for Hypoglycemia Protocol Hydralazine HCl (Apresoline Inj) 10 mg IV.PUSH Q4H PRN PRN Reason: SBP>160, DBP>90 Magnesium Sulfate Inj 4 gm/ (Sodium Chloride) 100 mls @ 50 mls/hr IV.SIG UNSCH PRN PRN Reason: For Magnesium 0.9 - 1.1 mg/dL Magnesium Sulfate Inj 2 gm/ (Sodium Chloride) 100 mls @ 50 mls/hr IV.SIG UNSCH PRN PRN Reason: For Magnesium 1.2 - 1.6 mg/dL Potassium Chloride (Kcl 40 Meq Premix Inj) 40 meq in 100 mls @ 50 mls/hr IV.SIG Q2H PRN PRN Reason: For Potassium 2.8 - 3.2 mEq/L Potassium Chloride (Kcl 20 Meq Premix Inj) 20 meq in 100 mls @ 50 mls/hr IV.SIG Q2H PRN PRN Reason: For Potassium 3.3 - 3.5 mEq/L Last Infusion: 06/29/18 08:59 Dose: Infused Potassium Chloride (Kcl 20 Meq Premix Inj) 20 meq in 100 mls @ 50 mls/hr IV.SIG Q2H PRN PRN Reason: For Potassium 2.8 - 3.2 mEq/L Last Admin: 07/11/18 18:52 Dose: 50 mls/hr Potassium Phosphate 30 mmol/ (Sodium Chloride) 260 mls @ 42 mls/hr IV.SIG UNSCH PRN PRN Reason: SEE LABEL COMMENTS Last Admin: 07/12/18 11:09 Dose: 42 mls/hr Sodium Phosphate 30 mmol/ (Sodium Chloride) 260 mls @ 42 mls/hr IV.SIG UNSCH PRN PRN Reason: For Phosphorus < 2.5 mg/dL Potassium Chloride (Kcl 40 Meq Premix Inj) 40 meq in 100 mls @ 25 mls/hr IV.SIG UNSCH PRN PRN Reason: For Potassium 3.3 - 3.5 mEq/L Sodium Chloride (Ns Inj) 500 mls @ 0 mls/hr IV.SIG BOLUS YON Last Infusion: 07/10/18 17:28 Dose: Infused Dexmedetomidine HCl 200 mcg/ (Sodium Chloride) 50 mls @ 1.58 mls/hr IV.CONT TITRATE PRN; Protocol PRN Reason: Per Protocol Last Admin: 07/13/18 03:49 Dose: 0.8 mcg/kg/hr, 12.7 mls/hr Insulin Aspart (Novolog Insulin Correctional Sugar Inj) 0 unit SQ Q4HR YON; Protocol Last Admin: 07/13/18 03:48 Dose: 20 unit Lactulose (Lactulose Liq) 30 ml PO DAILY PRN PRN Reason: SEVERE CONSITIPATION Lactulose (Lactulose Liq) 30 ml NG/OG DAILY [facility] Last Admin: 07/12/18 10:25 Dose: Not Given Lansoprazole (Prevacid Solutab) 30 mg NG/OG DAILY [facility] Last Admin: 07/12/18 10:26 Dose: 30 mg Lisinopril (Prinivil) 2.5 mg PO DAILY [facility] Lorazepam (Ativan) 0.5 mg PO Q6HR [facility] Last Admin: 07/13/18 06:25 Dose: 0.5 mg Magnesium Oxide (Mag-Ox) 800 mg PO UNSCH PRN PRN Reason: For Magnesium 1.2 - 1.6 mg/dL Metoprolol Tartrate (Lopressor) 6.25 mg PO BID [facility] Last Admin: 07/12/18 22:08 Dose: Not Given Miscellaneous (Pill Splitter) 1 each OTHER UNSCH PRN PRN Reason: SEE LABEL COMMENTS Potassium Bicarb/Potassium Chloride (K-Lyte Cl Eff) 50 meq PO UNSCH PRN PRN Reason: For Potassium 3.3 - 3.5 mEq/L Last Admin: 07/10/18 02:21 Dose: 50 meq Potassium Phosphate (K-Phos Original) 2,000 mg PO Q4H PRN PRN Reason: Phosphorus Less Than 2.5 mg/dL Last Admin: 07/10/18 08:14 Dose: 2,000 mg Potassium Phosphate (K-Phos Original) 2,000 mg PO UNSCH PRN PRN Reason: SEE LABEL COMMENTS Pravastatin Sodium (Pravachol) 40 mg PO DAILY@1800 [facility] Last Admin: 07/12/18 17:04 Dose: 40 mg Quetiapine Fumarate (Seroquel) 50 mg NG/OG BID@0900,1200 [facility] Last Admin: 07/12/18 17:03 Dose: 50 mg Senna/Docusate Sodium (Gisell-Colace) 1 tab PO BID [facility] Last Admin: 07/12/18 22:08 Dose: Not Given Sennosides (Senokot) 17.2 mg PO Q12H PRN PRN Reason: Moderate Constipation Sodium Chloride (Ns Flush) 2 ml IV.FLUSH BID [facility] Last Admin: 07/12/18 22:08 Dose: 2 ml Sodium Chloride (Ns Flush) 2 ml IV.FLUSH PRN PRN PRN Reason: FLUSH AFTER USING IV ACCESS Sterile Water (Free Water) 200 ml G-TUBE Q6HR YON Last Admin: 07/13/18 06:25 Dose: 200 ml Terbutaline Sulfate (Brethine Inj) 1 mg SQ ONCE PRN PRN Reason: Extravasation Allergies/Adverse Reactions: Allergies Allergy/AdvReac Type Severity Reaction Status Date / Time bee venom protein (honey bee) Allergy Difficulty Verified 06/20/18 22:04 [Bee sting] Breathing hydromorphone Allergy Nausea/Vomi Verified 06/20/18 22:04 ting pregabalin [From Lyrica] Allergy Anaphylaxis Verified 06/20/18 22:04 Review of Systems unobtainable due to mental status Physical Exam Vital signs: Vital Signs 07/12/18 08:00 07/12/18 09:00 07/12/18 09:17 Temperature 99 F Pulse Rate 68 60 61 Respiratory Rate 23 31 H 26 H Blood Pressure 119/58 L 119/58 L Pulse Oximetry 97 97 07/12/18 09:19 07/12/18 09:30 07/12/18 10:00 Temperature Pulse Rate 73 Respiratory Rate 26 H Blood Pressure 124/56 L Pulse Oximetry 100 97 99 07/12/18 11:00 07/12/18 12:00 07/12/18 13:00 Temperature Pulse Rate 72 67 63 Respiratory Rate 25 H 22 22 Blood Pressure 107/54 L 114/56 L Pulse Oximetry 93 L 99 98 07/12/18 13:01 07/12/18 14:00 07/12/18 15:00 Temperature Pulse Rate 63 73 64 Respiratory Rate 23 21 25 H Blood Pressure 107/53 L 110/53 L 114/75 Pulse Oximetry 99 98 99 07/12/18 16:00 07/12/18 16:23 07/12/18 16:36 Temperature Pulse Rate 60 60 60 Respiratory Rate 22 23 20 Blood Pressure 120/59 L Pulse Oximetry 97 98 07/12/18 17:00 07/12/18 17:01 07/12/18 18:00 Temperature Pulse Rate 72 69 79 Respiratory Rate 32 H 24 Blood Pressure 114/77 Pulse Oximetry 100 100 07/12/18 20:00 07/12/18 21:00 07/12/18 22:00 Temperature 100.9 F H Pulse Rate 96 H 90 92 H Respiratory Rate 27 H 20 Blood Pressure 121/58 L Pulse Oximetry 97 07/13/18 00:00 07/13/18 02:00 07/13/18 03:45 Temperature 101.7 F H Pulse Rate 90 86 80 Respiratory Rate 23 18 Blood Pressure 122/56 L Pulse Oximetry 98 07/13/18 04:00 07/13/18 06:00 Temperature 98.9 F Pulse Rate 85 78 Respiratory Rate 25 H Blood Pressure 129/56 L Pulse Oximetry 100 Intake & Output 07/12/18 07/13/18 07/13/18 18:59 06:59 18:59 Intake Total 200 / 200 1711 / 1711 Output Total 1250 / 1250 1125 / 1125 Balance -1050 / -1050 586 / 586 Weight 59.2 kg Intake: IV 200 / 200 150 / 150 Precedex Inj 200 MCG In NS Inj 200 / 200 150 / 150 48 ML @ 0.1 MCG/KG/HR 1.58 mls/ hr IV.CONT TITRATE PRN Rx#: [id number] Oral 0 / 0 Tube Feeding 1161 / 1161 Tube Irrigant 0 / 0 Water Bolus Amount 400 / 400 Other 0 / 0 Output: Urine 0 / 0 Stool 0 / 0 Urine Amount (Catheter) 1250 / 1250 1125 / 1125 3-way Urethral 0 / 0 Indwelling Urethral Catheter 1250 / 1250 1125 / 1125 Gastric Drainage 0 / 0 Left Nare Nasogastric Tube 0 / 0 Other: Date of Last Bowel Movement 07/10/18 07/10/18 # Bowel Movements 0 Narrative: GENERAL: NAD, A&Ox0 HEAD: Normocephalic. Looks euvolemic, NECK: Supple, trachea midline. No lymphadenopathy. EYES: No scleral icterus. No injection or drainage. CARDIOVASCULAR: Regular rate and rhythm without murmurs, gallops, or rubs. RESPIRATORY: Breath sounds equal bilaterally. No accessory muscle use. GASTROINTESTINAL: Abdomen soft, non-tender, nondistended. MUSCULOSKELETAL: No cyanosis, or edema. SKIN: Warm and dry. Neurology awake alert. Grimaces to tactile stimuli, NG tube in place. Not following mute. Positive blink to threat some tracking. Flexion localization of the upper extremity withdraws lower extremity reflexes depressed plantarflex response further sensory cerebellar gait testing limited secondary mental status. - Constitutional no acute distress - Routine HEENT Exam Head: Present: normocephalic Eye: Present: EOMI - Urinary Catheter Management Indwelling Urethral Catheter Cath placed during this visit: yes Urethral indwelling: Yes Reason for continuing: Acute urinary retention Insertion date: 06/20/18 Insertion time: 21:24 3-way Urethral Cath placed during this visit: yes Reason for continuing: Acute urinary retention Insertion date: 07/06/18 Insertion time: 18:00 Objective Laboratory Results - last 24 hr 07/12/18 07/12/18 07/12/18 04:58 10:30 14:02 WBC RBC Hgb Hct MCV MCH MCHC RDW Plt Count MPV Prelim Diff (Auto) Neut % (Auto) Lymph % (Auto) [place] % (Auto) Eos % (Auto) Baso % (Auto) Neut # (Auto) Lymph # (Auto) [place] # (Auto) Eos # (Auto) Baso # (Auto) WBC Differential Manual diff final Seg Neuts % (Manual) 79 H Band Neuts % (Manual) 14 H Lymphocytes % (Manual) 6 L Monocytes % (Manual) 1 Abs Neuts (Manual) 8.2 H Differential Comment Platelet Estimate Low L Platelet Morphology Normal Ovalocytes 1+ H Puncture Site Patient Temperature O2 Saturation ABG pH ABG pCO2 ABG pO2 ABG HCO3 ABG O2 Content ABG Base Excess ABG Methemoglobin Carlos Test Hemoglobin Carboxyhemoglobin O2 Delivery Device Liter Flow Critical Value Sodium Potassium Chloride Carbon Dioxide Anion Gap BUN Creatinine Estimated GFR POC Glucose 325 H Random Glucose Calcium Phosphorus Magnesium Total Bilirubin AST ALT Alkaline Phosphatase Ammonia 28 Total Protein Albumin 07/12/18 07/12/18 07/12/18 14:35 14:36 17:01 WBC RBC Hgb Hct MCV MCH MCHC RDW Plt Count MPV Prelim Diff (Auto) Neut % (Auto) Lymph % (Auto) [place] % (Auto) Eos % (Auto) Baso % (Auto) Neut # (Auto) Lymph # (Auto) [place] # (Auto) Eos # (Auto) Baso # (Auto) WBC Differential Seg Neuts % (Manual) Band Neuts % (Manual) Lymphocytes % (Manual) Monocytes % (Manual) Abs Neuts (Manual) Differential Comment Platelet Estimate Platelet Morphology Ovalocytes Puncture Site Left radial Patient Temperature 98.6 O2 Saturation 94 ABG pH 7.50 H ABG pCO2 35 L ABG pO2 79 ABG HCO3 27 H ABG O2 Content 13.4 ABG Base Excess 4.2 H ABG Methemoglobin 1.5 Carlos Test Y Hemoglobin 10.0 L Carboxyhemoglobin 1.0 O2 Delivery Device Nasal cannula Liter Flow 2.00 Critical Value No Sodium Potassium Chloride Carbon Dioxide Anion Gap BUN Creatinine Estimated GFR POC Glucose 269 H 224 H Random Glucose Calcium Phosphorus Magnesium Total Bilirubin AST ALT Alkaline Phosphatase Ammonia Total Protein Albumin 07/12/18 07/12/18 07/13/18 19:29 23:52 03:44 WBC 9.5 RBC 3.63 L Hgb 11.1 L Hct 34.1 L MCV 93.9 MCH 30.7 MCHC 32.7 RDW 16.2 Plt Count 57 L MPV 11.1 H Prelim Diff (Auto) Slide review pending Neut % (Auto) 86.4 H Lymph % (Auto) 7.6 L [place] % (Auto) 5.5 Eos % (Auto) 0.3 Baso % (Auto) 0.2 Neut # (Auto) 8.2 H Lymph # (Auto) 0.7 L [place] # (Auto) 0.5 Eos # (Auto) 0.0 Baso # (Auto) 0.0 WBC Differential Seg Neuts % (Manual) Band Neuts % (Manual) Lymphocytes % (Manual) Monocytes % (Manual) Abs Neuts (Manual) Differential Comment . Platelet Estimate Platelet Morphology Ovalocytes Puncture Site Patient Temperature O2 Saturation ABG pH ABG pCO2 ABG pO2 ABG HCO3 ABG O2 Content ABG Base Excess ABG Methemoglobin Carlos Test Hemoglobin Carboxyhemoglobin O2 Delivery Device Liter Flow Critical Value Sodium Potassium Chloride Carbon Dioxide Anion Gap BUN Creatinine Estimated GFR POC Glucose 145 H 157 H Random Glucose Calcium Phosphorus Magnesium Total Bilirubin AST ALT Alkaline Phosphatase Ammonia Total Protein Albumin 07/13/18 03:44 WBC RBC Hgb Hct MCV MCH MCHC RDW Plt Count MPV Prelim Diff (Auto) Neut % (Auto) Lymph % (Auto) [place] % (Auto) Eos % (Auto) Baso % (Auto) Neut # (Auto) Lymph # (Auto) [place] # (Auto) Eos # (Auto) Baso # (Auto) WBC Differential Seg Neuts % (Manual) Band Neuts % (Manual) Lymphocytes % (Manual) Monocytes % (Manual) Abs Neuts (Manual) Differential Comment Platelet Estimate Platelet Morphology Ovalocytes Puncture Site Patient Temperature O2 Saturation ABG pH ABG pCO2 ABG pO2 ABG HCO3 ABG O2 Content ABG Base Excess ABG Methemoglobin Carlos Test Hemoglobin Carboxyhemoglobin O2 Delivery Device Liter Flow Critical Value Sodium 146 H Potassium 4.0 Chloride 105 Carbon Dioxide 30.2 Anion Gap 11 BUN 28 H Creatinine 0.99 Estimated GFR 75 L POC Glucose Random Glucose 292 H D Calcium 8.1 L Phosphorus 3.6 D Magnesium 2.0 Total Bilirubin 0.5 AST 56 H ALT 100 H Alkaline Phosphatase 135 H Ammonia Total Protein 6.4 Albumin 2.1 L Review/Management - Diagnosis (1) Encephalopathy Code(s): G93.40 - Encephalopathy, unspecified Status: Acute Current Visit: Yes (2) Respiratory failure Code(s): J96.90 - Respiratory failure, unspecified, unspecified whether with hypoxia or hypercapnia Status: Acute Current Visit: Yes (3) Non-ST elevated myocardial infarction (non-STEMI) Code(s): I21.4 - Non-ST elevation (NSTEMI) myocardial infarction Status: Acute Current Visit: Yes (4) Cardiomyopathy Code(s): I42.9 - Cardiomyopathy, unspecified Status: Acute Current Visit: Yes - Review/Management Plan: Suspected hypoxic, metabolic encephalopathy Patient is getting tube feeds Recommendations EEG reviewed showing moderate encephalopathy CT scan follow-up no acute lesion Aggressive nutritional support and therapy We will follow peripherally (2) Respiratory failure Qualifiers: Chronicity: acute Respiratory failure complication: hypoxia Qualified Code(s ): J96.01 - Acute respiratory failure with hypoxia (4) Cardiomyopathy Qualifiers: Cardiomyopathy type: viral Qualified Code(s): B33.24 - Viral cardiomyopathy
[2018-07-13 08:07] LABS: Lymphocytes 2 % (9-44); Monocytes 2 % (0-8)
[2018-07-13 08:08] LABS: Platelet Morphology Normal (Normal)
[2018-07-13] MEDS: QUEtiapine 25 MG Tablet NG/OG SCH ×2 (08:18→12:57)
[2018-07-13] MEDS: Enoxaparin Inj 40 MG/0.4 ML Syringe SQ SCH (08:18)
[2018-07-13] MEDS: Lisinopril 5 MG Tablet PO SCH (08:18)
[2018-07-13] MEDS: Metoprolol Tartrate 25 MG Tablet PO SCH ×2 (08:18→21:33)
[2018-07-13] MEDS: Brimonidine 0.15% Opth Drops 5 ML Bottle EACH EYE SCH ×2 (08:19→21:33)
[2018-07-13] MEDS: Senna/Docusate Sodium 8.6/50 MG Tablet PO SCH ×2 (08:19→21:33)
[2018-07-13] MEDS: Bisacodyl 10 MG Supp RECTAL SCH (08:19)
[2018-07-13] MEDS: Hypromellose 0.3% Opth Gel 10 GM Bottle EACH EYE SCH ×2 (08:19→21:33)
--- NOTE | 2018-07-13 08:46 | P.PNIM ---
Subjective Interval history: f/u; encephalopathy in no acute distress. awake but still confused. noted that had a fever spike last night. d/w the RN at the bedside. Physical Exam Vital signs: Vital Signs 07/12/18 09:00 07/12/18 09:17 07/12/18 09:19 Temperature Pulse Rate 60 61 Respiratory Rate 31 H 26 H Blood Pressure 119/58 L Pulse Oximetry 97 100 07/12/18 09:30 07/12/18 10:00 07/12/18 11:00 Temperature Pulse Rate 73 72 Respiratory Rate 26 H 25 H Blood Pressure 124/56 L 107/54 L Pulse Oximetry 97 99 93 L 07/12/18 12:00 07/12/18 13:00 07/12/18 13:01 Temperature Pulse Rate 67 63 63 Respiratory Rate 22 22 23 Blood Pressure 114/56 L 107/53 L Pulse Oximetry 99 98 99 07/12/18 14:00 07/12/18 15:00 07/12/18 16:00 Temperature Pulse Rate 73 64 60 Respiratory Rate 21 25 H 22 Blood Pressure 110/53 L 114/75 Pulse Oximetry 98 99 97 07/12/18 16:23 07/12/18 16:36 07/12/18 17:00 Temperature Pulse Rate 60 60 72 Respiratory Rate 23 20 32 H Blood Pressure 120/59 L Pulse Oximetry 98 100 07/12/18 17:01 07/12/18 18:00 07/12/18 20:00 Temperature 100.9 F H Pulse Rate 69 79 96 H Respiratory Rate 24 27 H Blood Pressure 114/77 121/58 L Pulse Oximetry 100 97 07/12/18 21:00 07/12/18 22:00 07/13/18 00:00 Temperature 101.7 F H Pulse Rate 90 92 H 90 Respiratory Rate 20 23 Blood Pressure 122/56 L Pulse Oximetry 98 07/13/18 02:00 07/13/18 03:45 07/13/18 04:00 Temperature 98.9 F Pulse Rate 86 80 85 Respiratory Rate 18 25 H Blood Pressure 129/56 L Pulse Oximetry 100 07/13/18 06:00 07/13/18 08:00 Temperature 97.5 F L Pulse Rate 78 74 Respiratory Rate 10 L Blood Pressure 132/59 L Pulse Oximetry 100 Intake & Output 07/12/18 07/13/18 07/13/18 18:59 06:59 18:59 Intake Total 200 / 200 1711 / 1711 Output Total 1250 / 1250 1125 / 1125 Balance -1050 / -1050 586 / 586 Weight 59.2 kg Intake: IV 200 / 200 150 / 150 Precedex Inj 200 MCG In NS Inj 200 / 200 150 / 150 48 ML @ 0.1 MCG/KG/HR 1.58 mls/ hr IV.CONT TITRATE PRN Rx#: [id number] Oral 0 / 0 Tube Feeding 1161 / 1161 Tube Irrigant 0 / 0 Water Bolus Amount 400 / 400 Other 0 / 0 Output: Urine 0 / 0 Stool 0 / 0 Urine Amount (Catheter) 1250 / 1250 1125 / 1125 3-way Urethral 0 / 0 Indwelling Urethral Catheter 1250 / 1250 1125 / 1125 Gastric Drainage 0 / 0 Left Nare Nasogastric Tube 0 / 0 Other: Date of Last Bowel Movement 07/10/18 07/10/18 # Bowel Movements 0 - Constitutional no acute distress - Routine Respiratory Exam Present: CTA bilaterally - Routine Cardiovascular Exam Present: RRR - Routine Abdominal Exam Present: soft - Routine Extremities Exam Comments: no pedal edema. - Routine Neurological Exam awake but confused. - Urinary Catheter Management Indwelling Urethral Catheter Cath placed during this visit: yes Urethral indwelling: Yes Reason for continuing: Acute urinary retention Insertion date: 06/20/18 Insertion time: 21:24 3-way Urethral Cath placed during this visit: yes Reason for continuing: Acute urinary retention Insertion date: 07/06/18 Insertion time: 18:00 Results - Labs CBC & Chem 7: 07/13/18 03:44 07/13/18 03:44 Laboratory Results - last 24 hr 07/12/18 07/12/18 07/12/18 10:30 14:02 14:35 WBC RBC Hgb Hct MCV MCH MCHC RDW Plt Count MPV Prelim Diff (Auto) Neut % (Auto) Lymph % (Auto) [place] % (Auto) Eos % (Auto) Baso % (Auto) Neut # (Auto) Lymph # (Auto) [place] # (Auto) Eos # (Auto) Baso # (Auto) WBC Differential Seg Neuts % (Manual) Band Neuts % (Manual) Lymphocytes % (Manual) Monocytes % (Manual) Abs Neuts (Manual) Differential Comment Platelet Estimate Platelet Morphology Puncture Site Left radial Patient Temperature 98.6 O2 Saturation 94 ABG pH 7.50 H ABG pCO2 35 L ABG pO2 79 ABG HCO3 27 H ABG O2 Content 13.4 ABG Base Excess 4.2 H ABG Methemoglobin 1.5 Carlos Test Y Hemoglobin 10.0 L Carboxyhemoglobin 1.0 O2 Delivery Device Nasal cannula Liter Flow 2.00 Critical Value No Sodium Potassium Chloride Carbon Dioxide Anion Gap BUN Creatinine Estimated GFR POC Glucose 325 H Random Glucose Calcium Phosphorus Magnesium Total Bilirubin AST ALT Alkaline Phosphatase Ammonia 28 Total Protein Albumin 07/12/18 07/12/18 07/12/18 14:36 17:01 19:29 WBC RBC Hgb Hct MCV MCH MCHC RDW Plt Count MPV Prelim Diff (Auto) Neut % (Auto) Lymph % (Auto) [place] % (Auto) Eos % (Auto) Baso % (Auto) Neut # (Auto) Lymph # (Auto) [place] # (Auto) Eos # (Auto) Baso # (Auto) WBC Differential Seg Neuts % (Manual) Band Neuts % (Manual) Lymphocytes % (Manual) Monocytes % (Manual) Abs Neuts (Manual) Differential Comment Platelet Estimate Platelet Morphology Puncture Site Patient Temperature O2 Saturation ABG pH ABG pCO2 ABG pO2 ABG HCO3 ABG O2 Content ABG Base Excess ABG Methemoglobin Carlos Test Hemoglobin Carboxyhemoglobin O2 Delivery Device Liter Flow Critical Value Sodium Potassium Chloride Carbon Dioxide Anion Gap BUN Creatinine Estimated GFR POC Glucose 269 H 224 H 145 H Random Glucose Calcium Phosphorus Magnesium Total Bilirubin AST ALT Alkaline Phosphatase Ammonia Total Protein Albumin 07/12/18 07/13/18 07/13/18 23:52 03:44 03:44 WBC 9.5 RBC 3.63 L Hgb 11.1 L Hct 34.1 L MCV 93.9 MCH 30.7 MCHC 32.7 RDW 16.2 Plt Count 57 L MPV 11.1 H Prelim Diff (Auto) Slide review pending Neut % (Auto) 86.4 H Lymph % (Auto) 7.6 L [place] % (Auto) 5.5 Eos % (Auto) 0.3 Baso % (Auto) 0.2 Neut # (Auto) 8.2 H Lymph # (Auto) 0.7 L [place] # (Auto) 0.5 Eos # (Auto) 0.0 Baso # (Auto) 0.0 WBC Differential Manual diff final Seg Neuts % (Manual) 78 H Band Neuts % (Manual) 18 H Lymphocytes % (Manual) 2 L Monocytes % (Manual) 2 Abs Neuts (Manual) 9.1 H Differential Comment . Platelet Estimate Low L Platelet Morphology Normal Puncture Site Patient Temperature O2 Saturation ABG pH ABG pCO2 ABG pO2 ABG HCO3 ABG O2 Content ABG Base Excess ABG Methemoglobin Carlos Test Hemoglobin Carboxyhemoglobin O2 Delivery Device Liter Flow Critical Value Sodium 146 H Potassium 4.0 Chloride 105 Carbon Dioxide 30.2 Anion Gap 11 BUN 28 H Creatinine 0.99 Estimated GFR 75 L POC Glucose 157 H Random Glucose 292 H D Calcium 8.1 L Phosphorus 3.6 D Magnesium 2.0 Total Bilirubin 0.5 AST 56 H ALT 100 H Alkaline Phosphatase 135 H Ammonia Total Protein 6.4 Albumin 2.1 L 07/13/18 08:04 WBC RBC Hgb Hct MCV MCH MCHC RDW Plt Count MPV Prelim Diff (Auto) Neut % (Auto) Lymph % (Auto) [place] % (Auto) Eos % (Auto) Baso % (Auto) Neut # (Auto) Lymph # (Auto) [place] # (Auto) Eos # (Auto) Baso # (Auto) WBC Differential Seg Neuts % (Manual) Band Neuts % (Manual) Lymphocytes % (Manual) Monocytes % (Manual) Abs Neuts (Manual) Differential Comment Platelet Estimate Platelet Morphology Puncture Site Patient Temperature O2 Saturation ABG pH ABG pCO2 ABG pO2 ABG HCO3 ABG O2 Content ABG Base Excess ABG Methemoglobin Carlos Test Hemoglobin Carboxyhemoglobin O2 Delivery Device Liter Flow Critical Value Sodium Potassium Chloride Carbon Dioxide Anion Gap BUN Creatinine Estimated GFR POC Glucose 226 H Random Glucose Calcium Phosphorus Magnesium Total Bilirubin AST ALT Alkaline Phosphatase Ammonia Total Protein Albumin - Imaging Impressions Chest X-Ray 07/12/18 00:00 CONCLUSION: 1. Persistent mild patchy bibasilar airspace disease, likely atelectasis. 2. No significant interval change following expiration. Head CT 07/12/18 00:00 CONCLUSION: 1. No acute intracranial abnormality. 2. Atrophy. 3. Increased density seen throughout the mastoid air cells and middle ear regions. . - Procedures intubation/ cardiac cath. Assessment and Plan - Plan Resp failure- extubated 07/09 continue with neb treatment as needed. Acute decompensated CHF - systolic and diastolic EF 20% -appears euvolemic- s/p defibrillator placement continue BB and diuretic-no ENA due to FIDE- cardiology following. Staph aureus pneumonia -now with recurrent fever will repeat the blood cultures/ and UA. Atrial fibrillation -rate controlled- continue BB Non-STEMI- -Cardiac cath per Dr. Noonan. Angiographically mild to moderate 3 -vessel coronary artery disease. EF 20%. continue aspirin, BB and statin. FIDE -creatinine normalizing, urine output remains adequate encephalopathy- evaluated by neurology. CT and EEG repeated; EEG with encephalopathy and CT brain with no acute intracranial abnormality. will taper down Precedex drip slowly- seroquel was increased. neurology will follow peripherally. Dysphagia/ severe protein-calorie malnutrition NPO for now- ST following- after my d/w the and ; GI was consulted for PEG placement. 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 Hypernatremia -resolved Thrombocytopenia -unchanged- will monitor. Adynamic ileus - ?[place] -distention is improved Erectile Dysfunction PAD- continue aspirin and statin COPD- continue with neb treatment. pulmonary following. elevated LFT's- will monitor closely while on statin. -hyperglycemia; possible stress/ steroid -induced; A1c 5.5. will add levemir and continue with accu-check with SSI DVT prophylaxis with subq Lovenox palliative care following. Discharge Planning: is planning to take him back to [place]-
--- NOTE | 2018-07-13 11:21 | P.PNCA ---
Subjective Interval history: sitn on bedside with assistance, not following commands Physical Exam Vital signs: Vital Signs 07/12/18 12:00 07/12/18 13:00 07/12/18 13:01 Temperature Pulse Rate 67 63 63 Respiratory Rate 22 22 23 Blood Pressure 114/56 L 107/53 L Pulse Oximetry 99 98 99 07/12/18 14:00 07/12/18 15:00 07/12/18 16:00 Temperature Pulse Rate 73 64 60 Respiratory Rate 21 25 H 22 Blood Pressure 110/53 L 114/75 Pulse Oximetry 98 99 97 07/12/18 16:23 07/12/18 16:36 07/12/18 17:00 Temperature Pulse Rate 60 60 72 Respiratory Rate 23 20 32 H Blood Pressure 120/59 L Pulse Oximetry 98 100 07/12/18 17:01 07/12/18 18:00 07/12/18 20:00 Temperature 100.9 F H Pulse Rate 69 79 96 H Respiratory Rate 24 27 H Blood Pressure 114/77 121/58 L Pulse Oximetry 100 97 07/12/18 21:00 07/12/18 22:00 07/13/18 00:00 Temperature 101.7 F H Pulse Rate 90 92 H 90 Respiratory Rate 20 23 Blood Pressure 122/56 L Pulse Oximetry 98 07/13/18 02:00 07/13/18 03:45 07/13/18 04:00 Temperature 98.9 F Pulse Rate 86 80 85 Respiratory Rate 18 25 H Blood Pressure 129/56 L Pulse Oximetry 100 07/13/18 06:00 07/13/18 08:00 07/13/18 08:40 Temperature 97.5 F L Pulse Rate 78 74 78 Respiratory Rate 10 L 16 Blood Pressure 132/59 L Pulse Oximetry 100 98 07/13/18 10:00 Temperature Pulse Rate 80 Respiratory Rate Blood Pressure Pulse Oximetry Intake & Output 07/12/18 07/13/18 07/13/18 18:59 06:59 18:59 Intake Total 200 / 200 1711 / 1711 Output Total 1250 / 1250 1125 / 1125 Balance -1050 / -1050 586 / 586 Weight 59.2 kg Intake: IV 200 / 200 150 / 150 Precedex Inj 200 MCG In NS Inj 200 / 200 150 / 150 48 ML @ 0.1 MCG/KG/HR 1.58 mls/ hr IV.CONT TITRATE PRN Rx#: [id number] Oral 0 / 0 Tube Feeding 1161 / 1161 Tube Irrigant 0 / 0 Water Bolus Amount 400 / 400 Other 0 / 0 Output: Urine 0 / 0 Stool 0 / 0 Urine Amount (Catheter) 1250 / 1250 1125 / 1125 3-way Urethral 0 / 0 Indwelling Urethral Catheter 1250 / 1250 1125 / 1125 Gastric Drainage 0 / 0 Left Nare Nasogastric Tube 0 / 0 Other: Date of Last Bowel Movement 07/10/18 07/10/18 07/10/18 # Bowel Movements 0 - Urinary Catheter Management Indwelling Urethral Catheter Cath placed during this visit: yes Urethral indwelling: Yes Reason for continuing: Acute urinary retention Insertion date: 06/20/18 Insertion time: 21:24 3-way Urethral Cath placed during this visit: yes Reason for continuing: Acute urinary retention Insertion date: 07/06/18 Insertion time: 18:00 Assessment and Plan - Assessment (1) Cardiomyopathy Code(s): I42.9 - Cardiomyopathy, unspecified Status: Acute (2) Cardiomyopathy Code(s): I42.9 - Cardiomyopathy, unspecified Status: Acute (3) PVD (peripheral vascular disease) Code(s): I73.9 - Peripheral vascular disease, unspecified Status: Acute (4) PVD (peripheral vascular disease) Code(s): I73.9 - Peripheral vascular disease, unspecified Status: Acute (5) Tobacco abuse Code(s): Z72.0 - Tobacco use Status: Acute (6) Respiratory failure Code(s): J96.90 - Respiratory failure, unspecified, unspecified whether with hypoxia or hypercapnia Status: Acute (7) Non-ST elevated myocardial infarction (non-STEMI) Code(s): I21.4 - Non-ST elevation (NSTEMI) myocardial infarction Status: Acute (8) Pulmonary edema cardiac cause Code(s): I50.1 - Left ventricular failure, unspecified Status: Acute - Plan 1.) NICM - end stage, euvolemic, refuses in state transfer, requesting transfer to [facility], d/w Dr Solis; beta ana and hellen held due to hypotension, diuresing to optimize potential extubation, he has hypernatremia, continue lopressor, start lisinopril 2.5 mg qd 2.) CAD - nonobstructive, continue aspirin, pravachol 3.) Encephalopathy - moderate per EEG on sedation, neuro following 4.) d/w case with at the bedside 07/04/18 5.) Respiratory failure - he is euvolemic, appears to be due to pulmonary and/ or encephalopathic etilology, extubated 07/09/18 but restrained and not following commands, will follow trends in mental and respiratory status, d/w at the bedside 07/11/18, she says he has placement @ [facility], I advised her to d /w case management travel arrangements (2) Cardiomyopathy Qualifiers: Qualified Code(s): B33.24 - Viral cardiomyopathy (6) Respiratory failure Qualifiers: Qualified Code(s): J96.01 - Acute respiratory failure with hypoxia
--- NOTE | 2018-07-13 11:30 | P.CONGI ---
History of Present Illness Consult date: 07/13/18 Consult reason: PEG tube consult Chief complaint: Hypoxic Resp Failure, Pulm Edema History of Present Illness: A 72-year-old gentleman who is visiting here from [place] on vacation. Apparently, the patient had chest pain and shortness of breath and was brought to the hospital by the family where he ended up intubated because of hypoxia. Our service was previously following for constipation, however pt was given Golytely and seemed to have good response and our service signed off. We have been reconsulted to evaluate pt for possible PEG placement. According to notes , pt has made improvement in his neurologic status but continues to be encephalopathic. Pt has been weaned off mechanical ventilation and is currently on 2 L O2 via NC. Pt currently receiving nutrition through an NG tube , Glucerna 1.5 running at 55 mL/hr. <Ksenia Molina - Last Filed: 07/13/18 11:15> Review of Systems unobtainable due to mental status <Ksenia Molina - Last Filed: 07/13/18 11:15> [facility] - History History Provided By: Patient, Family Member, Medical Record - Medical History Medical History: Medical History (Last Reviewed 07/13/18 @ 08:38 by Jennifer Turner, PIA) BPH (benign prostatic hyperplasia) CHF (congestive heart failure) COPD (chronic obstructive pulmonary disease) Cardiac defibrillator in place Chronic bronchitis GERD (gastroesophageal reflux disease) Glaucoma Hypertension Neuropathy PVD (peripheral vascular disease) Pacemaker Surgical history unknown Type 2 diabetes mellitus - Family History Family History: Family History (Last Updated 06/22/18 @ 16:59 by DALTON Christine) Other Diabetes Heart disease - Tobacco History Second Hand Smoke Exposure: Yes Tobacco Use In Past 30 Days: Yes Smoking Status: Heavy tobacco smoker Tobacco Type: Cigarettes Packs Per Day: 1 - Alcohol History How Often Do You Have a Drink Containing Alcohol: 2 to 4 times a month - Substance Use History Substance History: No History of Abuse - Travel History Recent Travel in the [place] Within the Last 8 Weeks: Yes Recent Travel Out of the Country Within the Last 8 Weeks: No - Immunization History Tetanus Immunization: Unable to Assess Hx Influenza Vaccine This Season: Unable to Assess <Ksenia Molina - Last Filed: 07/13/18 11:15> - Medical History Medical History: Medical History (Last Reviewed 07/13/18 @ 08:38 by Jennifer Turner, [employer]) BPH (benign prostatic hyperplasia) CHF (congestive heart failure) COPD (chronic obstructive pulmonary disease) Cardiac defibrillator in place Chronic bronchitis GERD (gastroesophageal reflux disease) Glaucoma Hypertension Neuropathy PVD (peripheral vascular disease) Pacemaker Surgical history unknown Type 2 diabetes mellitus - Family History Family History: Family History (Last Updated 06/22/18 @ 16:59 by DALTON Christine) Other Diabetes Heart disease <Aung Garcia - Last Filed: 07/13/18 16:55> Medications and Allergies Active Medications: Active Medications Acetaminophen (Tylenol Liq) 650 mg NG/OG Q6H PRN PRN Reason: FEVER Last Admin: 07/12/18 19:54 Dose: 650 mg Al Hydroxide/Mg Hydroxide (Milk Of Magnesia Liq) 30 ml PO Q12H PRN PRN Reason: Mild Constipation Albuterol (Duoneb Neb (Prn)) 1 ampul NEB Q4HR NEB PRN PRN Reason: SHORTNESS OF BREATH/WHEEZING Albuterol (Duoneb Neb (Yon)) 1 ampul NEB Q6HR NEB YON Last Admin: 07/13/18 08:40 Dose: 1 ampul Artificial Tears (Genteal Severe Dry Eye Relief 0.3% Opth Gel) 1 drops EACH EYE BID [facility] Last Admin: 07/13/18 08:19 Dose: 1 drops Aspirin (Aspirin Chew) 162 mg PO DAILY [facility] Last Admin: 07/13/18 08:18 Dose: 162 mg Baclofen (Lioresal) 10 mg PO Q8HR [facility] Last Admin: 07/13/18 06:25 Dose: 10 mg Bisacodyl (Dulcolax Supp) 10 mg RECTAL DAILY PRN PRN Reason: SEVERE CONSITIPATION Bisacodyl (Dulcolax Supp) 10 mg RECTAL DAILY [facility] Last Admin: 07/13/18 08:19 Dose: Not Given Brimonidine Tartrate (Alphagan P 0.15% Opth Drops) 1 drops EACH EYE BID [facility] Last Admin: 07/13/18 08:19 Dose: 1 drops Dextrose (D50w Vial) 50 ml IV.PUSH UNSCH PRN PRN Reason: PER HYPOGLYCEMIA PROTOCOL Last Admin: 07/12/18 04:25 Dose: 50 ml Enoxaparin Sodium (Lovenox Inj) 40 mg SQ DAILY [facility] Last Admin: 07/13/18 08:18 Dose: 40 mg Furosemide (Lasix Inj) 40 mg IV.PUSH DAILY@1400 [facility] Last Admin: 07/12/18 14:49 Dose: 40 mg Glucagon (Glucagon Inj) 1 mg OTHER PRN PRN PRN Reason: for Hypoglycemia Protocol Hydralazine HCl (Apresoline Inj) 10 mg IV.PUSH Q4H PRN PRN Reason: SBP>160, DBP>90 Magnesium Sulfate Inj 4 gm/ (Sodium Chloride) 100 mls @ 50 mls/hr IV.SIG UNSCH PRN PRN Reason: For Magnesium 0.9 - 1.1 mg/dL Magnesium Sulfate Inj 2 gm/ (Sodium Chloride) 100 mls @ 50 mls/hr IV.SIG UNSCH PRN PRN Reason: For Magnesium 1.2 - 1.6 mg/dL Potassium Chloride (Kcl 40 Meq Premix Inj) 40 meq in 100 mls @ 50 mls/hr IV.SIG Q2H PRN PRN Reason: For Potassium 2.8 - 3.2 mEq/L Potassium Chloride (Kcl 20 Meq Premix Inj) 20 meq in 100 mls @ 50 mls/hr IV.SIG Q2H PRN PRN Reason: For Potassium 3.3 - 3.5 mEq/L Last Infusion: 06/29/18 08:59 Dose: Infused Potassium Chloride (Kcl 20 Meq Premix Inj) 20 meq in 100 mls @ 50 mls/hr IV.SIG Q2H PRN PRN Reason: For Potassium 2.8 - 3.2 mEq/L Last Admin: 07/11/18 18:52 Dose: 50 mls/hr Potassium Phosphate 30 mmol/ (Sodium Chloride) 260 mls @ 42 mls/hr IV.SIG UNSCH PRN PRN Reason: SEE LABEL COMMENTS Last Admin: 07/12/18 11:09 Dose: 42 mls/hr Sodium Phosphate 30 mmol/ (Sodium Chloride) 260 mls @ 42 mls/hr IV.SIG UNSCH PRN PRN Reason: For Phosphorus < 2.5 mg/dL Potassium Chloride (Kcl 40 Meq Premix Inj) 40 meq in 100 mls @ 25 mls/hr IV.SIG UNSCH PRN PRN Reason: For Potassium 3.3 - 3.5 mEq/L Sodium Chloride (Ns Inj) 500 mls @ 0 mls/hr IV.SIG BOLUS [facility] Last Infusion: 07/10/18 17:28 Dose: Infused Dexmedetomidine HCl 200 mcg/ (Sodium Chloride) 50 mls @ 1.58 mls/hr IV.CONT TITRATE PRN; Protocol PRN Reason: Per Protocol Last Admin: 07/13/18 03:49 Dose: 0.8 mcg/kg/hr, 12.7 mls/hr Insulin Aspart (Novolog Insulin Correctional Sugar Inj) 0 unit SQ Q4HR [facility]; Protocol Last Admin: 07/13/18 08:17 Dose: 10 unit Insulin Detemir (Levemir Inj) 5 unit SQ HS [facility] Lactulose (Lactulose Liq) 30 ml PO DAILY PRN PRN Reason: SEVERE CONSITIPATION Lactulose (Lactulose Liq) 30 ml NG/OG DAILY [facility] Last Admin: 07/13/18 08:19 Dose: Not Given Lansoprazole (Prevacid Solutab) 30 mg NG/OG DAILY [facility] Last Admin: 07/13/18 08:18 Dose: 30 mg Lisinopril (Prinivil) 2.5 mg PO DAILY [facility] Last Admin: 07/13/18 08:18 Dose: 2.5 mg Lorazepam (Ativan) 0.5 mg PO Q6HR [facility] Last Admin: 07/13/18 06:25 Dose: 0.5 mg Magnesium Oxide (Mag-Ox) 800 mg PO UNSCH PRN PRN Reason: For Magnesium 1.2 - 1.6 mg/dL Metoprolol Tartrate (Lopressor) 6.25 mg PO BID [facility] Last Admin: 07/13/18 08:18 Dose: 6.25 mg Miscellaneous (Pill Splitter) 1 each OTHER UNSCH PRN PRN Reason: SEE LABEL COMMENTS Potassium Bicarb/Potassium Chloride (K-Lyte Cl Eff) 50 meq PO UNSCH PRN PRN Reason: For Potassium 3.3 - 3.5 mEq/L Last Admin: 07/10/18 02:21 Dose: 50 meq Potassium Phosphate (K-Phos Original) 2,000 mg PO Q4H PRN PRN Reason: Phosphorus Less Than 2.5 mg/dL Last Admin: 07/10/18 08:14 Dose: 2,000 mg Potassium Phosphate (K-Phos Original) 2,000 mg PO UNSCH PRN PRN Reason: SEE LABEL COMMENTS Pravastatin Sodium (Pravachol) 40 mg PO DAILY@1800 [facility] Last Admin: 07/12/18 17:04 Dose: 40 mg Quetiapine Fumarate (Seroquel) 50 mg NG/OG BID@0900,1200 [facility] Last Admin: 07/13/18 08:18 Dose: 50 mg Senna/Docusate Sodium (Gisell-Colace) 1 tab PO BID [facility] Last Admin: 07/13/18 08:19 Dose: Not Given Sennosides (Senokot) 17.2 mg PO Q12H PRN PRN Reason: Moderate Constipation Sodium Chloride (Ns Flush) 2 ml IV.FLUSH BID [facility] Last Admin: 07/13/18 08:18 Dose: 2 ml Sodium Chloride (Ns Flush) 2 ml IV.FLUSH PRN PRN PRN Reason: FLUSH AFTER USING IV ACCESS Sterile Water (Free Water) 200 ml G-TUBE Q6HR [facility] Last Admin: 07/13/18 06:25 Dose: 200 ml Terbutaline Sulfate (Brethine Inj) 1 mg SQ ONCE PRN PRN Reason: Extravasation <Ksenia Molina - Last Filed: 07/13/18 11:15> Active Medications: Active Medications Acetaminophen (Tylenol Liq) 650 mg NG/OG Q6H PRN PRN Reason: FEVER Last Admin: 07/12/18 19:54 Dose: 650 mg Al Hydroxide/Mg Hydroxide (Milk Of Magnesia Liq) 30 ml PO Q12H PRN PRN Reason: Mild Constipation Albuterol (Duoneb Neb (Prn)) 1 ampul NEB Q4HR NEB PRN PRN Reason: SHORTNESS OF BREATH/WHEEZING Artificial Tears (Genteal Severe Dry Eye Relief 0.3% Opth Gel) 1 drops EACH EYE BID [facility] Last Admin: 07/13/18 08:19 Dose: 1 drops Aspirin (Aspirin Chew) 162 mg PO DAILY [facility] Last Admin: 07/13/18 08:18 Dose: 162 mg Baclofen (Lioresal) 10 mg PO Q8HR [facility] Last Admin: 07/13/18 13:00 Dose: 10 mg Bisacodyl (Dulcolax Supp) 10 mg RECTAL DAILY PRN PRN Reason: SEVERE CONSITIPATION Bisacodyl (Dulcolax Supp) 10 mg RECTAL DAILY [facility] Last Admin: 08/31/18 08:19 Dose: Not Given Brimonidine Tartrate (Alphagan P 0.15% Opth Drops) 1 drops EACH EYE BID [facility] Last Admin: 07/13/18 08:19 Dose: 1 drops Dextrose (D50w Vial) 50 ml IV.PUSH UNSCH PRN PRN Reason: PER HYPOGLYCEMIA PROTOCOL Last Admin: 07/12/18 04:25 Dose: 50 ml Enoxaparin Sodium (Lovenox Inj) 40 mg SQ DAILY [facility] Last Admin: 07/13/18 08:18 Dose: 40 mg Furosemide (Lasix Inj) 40 mg IV.PUSH DAILY@1400 [facility] Last Admin: 07/13/18 13:03 Dose: 40 mg Glucagon (Glucagon Inj) 1 mg OTHER PRN PRN PRN Reason: for Hypoglycemia Protocol Hydralazine HCl (Apresoline Inj) 10 mg IV.PUSH Q4H PRN PRN Reason: SBP>160, DBP>90 Magnesium Sulfate Inj 4 gm/ (Sodium Chloride) 100 mls @ 50 mls/hr IV.SIG UNSCH PRN PRN Reason: For Magnesium 0.9 - 1.1 mg/dL Magnesium Sulfate Inj 2 gm/ (Sodium Chloride) 100 mls @ 50 mls/hr IV.SIG UNSCH PRN PRN Reason: For Magnesium 1.2 - 1.6 mg/dL Potassium Chloride (Kcl 40 Meq Premix Inj) 40 meq in 100 mls @ 50 mls/hr IV.SIG Q2H PRN PRN Reason: For Potassium 2.8 - 3.2 mEq/L Potassium Chloride (Kcl 20 Meq Premix Inj) 20 meq in 100 mls @ 50 mls/hr IV.SIG Q2H PRN PRN Reason: For Potassium 3.3 - 3.5 mEq/L Last Infusion: 06/29/18 08:59 Dose: Infused Potassium Chloride (Kcl 20 Meq Premix Inj) 20 meq in 100 mls @ 50 mls/hr IV.SIG Q2H PRN PRN Reason: For Potassium 2.8 - 3.2 mEq/L Last Admin: 07/11/18 18:52 Dose: 50 mls/hr Potassium Phosphate 30 mmol/ (Sodium Chloride) 260 mls @ 42 mls/hr IV.SIG UNSCH PRN PRN Reason: SEE LABEL COMMENTS Last Infusion: 07/12/18 18:00 Dose: Infused Sodium Phosphate 30 mmol/ (Sodium Chloride) 260 mls @ 42 mls/hr IV.SIG UNSCH PRN PRN Reason: For Phosphorus < 2.5 mg/dL Potassium Chloride (Kcl 40 Meq Premix Inj) 40 meq in 100 mls @ 25 mls/hr IV.SIG UNSCH PRN PRN Reason: For Potassium 3.3 - 3.5 mEq/L Sodium Chloride (Ns Inj) 500 mls @ 0 mls/hr IV.SIG BOLUS [facility] Last Infusion: 07/10/18 17:28 Dose: Infused Dexmedetomidine HCl 200 mcg/ (Sodium Chloride) 50 mls @ 1.58 mls/hr IV.CONT TITRATE PRN; Protocol PRN Reason: Per Protocol Last Titration: 07/13/18 12:45 Dose: 0.8 mcg/kg/hr, 12.7 mls/hr Insulin Aspart (Novolog Insulin Correctional Sugar Inj) 0 unit SQ Q4HR [facility]; Protocol Last Admin: 07/13/18 16:14 Dose: 10 unit Insulin Detemir (Levemir Inj) 5 unit SQ HS [facility] Lactulose (Lactulose Liq) 30 ml PO DAILY PRN PRN Reason: SEVERE CONSITIPATION Lactulose (Lactulose Liq) 30 ml NG/OG DAILY [facility] Last Admin: 07/13/18 08:19 Dose: Not Given Lansoprazole (Prevacid Solutab) 30 mg NG/OG DAILY [facility] Last Admin: 07/13/18 08:18 Dose: 30 mg Lisinopril (Prinivil) 2.5 mg PO DAILY [facility] Last Admin: 07/13/18 08:18 Dose: 2.5 mg Lorazepam (Ativan) 0.5 mg PO Q6HR [facility] Last Admin: 07/13/18 12:54 Dose: 0.5 mg Magnesium Oxide (Mag-Ox) 800 mg PO UNSCH PRN PRN Reason: For Magnesium 1.2 - 1.6 mg/dL Metoprolol Tartrate (Lopressor) 6.25 mg PO BID [facility] Last Admin: 07/13/18 08:18 Dose: 6.25 mg Miscellaneous (Pill Splitter) 1 each OTHER UNSCH PRN PRN Reason: SEE LABEL COMMENTS Potassium Bicarb/Potassium Chloride (K-Lyte Cl Eff) 50 meq PO UNSCH PRN PRN Reason: For Potassium 3.3 - 3.5 mEq/L Last Admin: 07/10/18 02:21 Dose: 50 meq Potassium Phosphate (K-Phos Original) 2,000 mg PO Q4H PRN PRN Reason: Phosphorus Less Than 2.5 mg/dL Last Admin: 07/10/18 08:14 Dose: 2,000 mg Potassium Phosphate (K-Phos Original) 2,000 mg PO UNSCH PRN PRN Reason: SEE LABEL COMMENTS Pravastatin Sodium (Pravachol) 40 mg PO DAILY@1800 [facility] Last Admin: 07/12/18 17:04 Dose: 40 mg Quetiapine Fumarate (Seroquel) 50 mg NG/OG BID@0900,1200 [facility] Last Admin: 07/13/18 12:57 Dose: 50 mg Senna/Docusate Sodium (Gisell-Colace) 1 tab PO BID [facility] Last Admin: 07/13/18 08:19 Dose: Not Given Sennosides (Senokot) 17.2 mg PO Q12H PRN PRN Reason: Moderate Constipation Sodium Chloride (Ns Flush) 2 ml IV.FLUSH BID [facility] Last Admin: 07/13/18 08:18 Dose: 2 ml Sodium Chloride (Ns Flush) 2 ml IV.FLUSH PRN PRN PRN Reason: FLUSH AFTER USING IV ACCESS Sterile Water (Free Water) 200 ml G-TUBE Q6HR [facility] Last Admin: 07/13/18 13:03 Dose: 200 ml Terbutaline Sulfate (Brethine Inj) 1 mg SQ ONCE PRN PRN Reason: Extravasation <Aung Garcia - Last Filed: 07/13/18 16:55> Allergies Allergy/AdvReac Type Severity Reaction Status Date / Time bee venom protein (honey bee) Allergy Difficulty Verified 06/20/18 22:04 [Bee sting] Breathing hydromorphone Allergy Nausea/Vomi Verified 06/20/18 22:04 ting pregabalin [From Lyrica] Allergy Anaphylaxis Verified 06/20/18 22:04 Home Medications Medication Instructions Recorded Confirmed Type aspirin 81 mg PO DAILY 06/20/18 06/20/18 History baclofen 20 mg PO TID 06/20/18 06/20/18 History brimonidine 1 drp OPHTHALMIC (EYE) TID 06/20/18 06/20/18 History cilostazol 50 mg PO BID 06/20/18 06/20/18 History gabapentin 300 mg PO TID 06/20/18 06/20/18 History metformin 1,000 mg PO BID 06/20/18 06/20/18 History omeprazole 20 mg PO DAILY 06/20/18 06/20/18 History simvastatin 20 mg PO QPM 06/20/18 06/20/18 History sitagliptin [Januvia] 100 mg PO DAILY 06/20/18 06/20/18 History umeclidinium-vilanterol [Anoro 1 inh INHALATION Q24H 06/21/18 06/21/18 History Ellipta] Exam Vital signs: Vital Signs 07/12/18 12:00 07/12/18 13:00 07/12/18 13:01 Temperature Pulse Rate 67 63 63 Respiratory Rate 22 22 23 Blood Pressure 114/56 L 107/53 L Pulse Oximetry 99 98 99 07/12/18 14:00 07/12/18 15:00 07/12/18 16:00 Temperature Pulse Rate 73 64 60 Respiratory Rate 21 25 H 22 Blood Pressure 110/53 L 114/75 Pulse Oximetry 98 99 97 07/12/18 16:23 07/12/18 16:36 07/12/18 17:00 Temperature Pulse Rate 60 60 72 Respiratory Rate 23 20 32 H Blood Pressure 120/59 L Pulse Oximetry 98 100 07/12/18 17:01 07/12/18 18:00 07/12/18 20:00 Temperature 100.9 F H Pulse Rate 69 79 96 H Respiratory Rate 24 27 H Blood Pressure 114/77 121/58 L Pulse Oximetry 100 97 07/12/18 21:00 07/12/18 22:00 07/13/18 00:00 Temperature 101.7 F H Pulse Rate 90 92 H 90 Respiratory Rate 20 23 Blood Pressure 122/56 L Pulse Oximetry 98 07/13/18 02:00 07/13/18 03:45 07/13/18 04:00 Temperature 98.9 F Pulse Rate 86 80 85 Respiratory Rate 18 25 H Blood Pressure 129/56 L Pulse Oximetry 100 07/13/18 06:00 07/13/18 08:00 07/13/18 08:40 Temperature 97.5 F L Pulse Rate 78 74 78 Respiratory Rate 10 L 16 Blood Pressure 132/59 L Pulse Oximetry 100 98 07/13/18 10:00 Temperature Pulse Rate 80 Respiratory Rate Blood Pressure Pulse Oximetry Intake & Output 07/12/18 07/13/18 07/13/18 18:59 06:59 18:59 Intake Total 200 / 200 1711 / 1711 Output Total 1250 / 1250 1125 / 1125 Balance -1050 / -1050 586 / 586 Weight 59.2 kg Intake: IV 200 / 200 150 / 150 Precedex Inj 200 MCG In NS Inj 200 / 200 150 / 150 48 ML @ 0.1 MCG/KG/HR 1.58 mls/ hr IV.CONT TITRATE PRN Rx#: [id number] Oral 0 / 0 Tube Feeding 1161 / 1161 Tube Irrigant 0 / 0 Water Bolus Amount 400 / 400 Other 0 / 0 Output: Urine 0 / 0 Stool 0 / 0 Urine Amount (Catheter) 1250 / 1250 1125 / 1125 3-way Urethral 0 / 0 Indwelling Urethral Catheter 1250 / 1250 1125 / 1125 Gastric Drainage 0 / 0 Left Nare Nasogastric Tube 0 / 0 Other: Date of Last Bowel Movement 07/10/18 07/10/18 07/10/18 # Bowel Movements 0 - Constitutional no acute distress - Routine HEENT Exam Head: Present: normocephalic, atraumatic - Routine Respiratory Exam Absent: accessory muscle use - Routine Abdominal Exam Present: soft, normoactive bowel sounds. Absent: distended - Routine Skin Exam Present: dry, warm <Ksenia Molina - Last Filed: 07/13/18 11:15> Vital signs: Vital Signs 07/12/18 17:00 07/12/18 17:01 07/12/18 18:00 Temperature Pulse Rate 72 69 79 Respiratory Rate 32 H 24 Blood Pressure 114/77 Pulse Oximetry 100 100 07/12/18 20:00 07/12/18 21:00 07/12/18 22:00 Temperature 100.9 F H Pulse Rate 96 H 90 92 H Respiratory Rate 27 H 20 Blood Pressure 121/58 L Pulse Oximetry 97 07/13/18 00:00 07/13/18 02:00 07/13/18 03:45 Temperature 101.7 F H Pulse Rate 90 86 80 Respiratory Rate 23 18 Blood Pressure 122/56 L Pulse Oximetry 98 07/13/18 04:00 07/13/18 06:00 07/13/18 08:00 Temperature 98.9 F 97.5 F L Pulse Rate 85 78 74 Respiratory Rate 25 H 10 L Blood Pressure 129/56 L 132/59 L Pulse Oximetry 100 100 07/13/18 08:15 07/13/18 08:30 07/13/18 08:40 Temperature Pulse Rate 83 80 78 Respiratory Rate 23 23 16 Blood Pressure 135/59 L 127/59 L Pulse Oximetry 99 98 98 07/13/18 08:45 07/13/18 09:00 07/13/18 09:15 Temperature Pulse Rate 72 79 82 Respiratory Rate 10 L 28 H 28 H Blood Pressure 126/59 L 117/56 L 105/51 L Pulse Oximetry 100 98 97 07/13/18 09:30 07/13/18 09:45 07/13/18 10:00 Temperature Pulse Rate 82 79 80 Respiratory Rate 26 H 25 H 26 H Blood Pressure 112/55 L 109/54 L 120/51 L Pulse Oximetry 98 98 97 07/13/18 10:15 07/13/18 10:30 07/13/18 10:45 Temperature Pulse Rate 87 85 92 H Respiratory Rate 28 H 27 H 28 H Blood Pressure 120/58 L 116/56 L 127/57 L Pulse Oximetry 97 99 97 07/13/18 11:00 07/13/18 11:15 07/13/18 11:30 Temperature Pulse Rate 92 H 92 H 91 H Respiratory Rate 29 H 22 11 L Blood Pressure 116/59 L 120/57 L 124/60 Pulse Oximetry 99 99 97 07/13/18 11:45 07/13/18 12:00 07/13/18 12:15 Temperature Pulse Rate 93 H 99 H 97 H Respiratory Rate 20 18 27 H Blood Pressure 121/58 L 127/58 L 126/61 Pulse Oximetry 99 97 98 07/13/18 12:30 07/13/18 14:00 Temperature Pulse Rate 99 H 104 H Respiratory Rate 32 H Blood Pressure 130/57 L Pulse Oximetry 96 Intake & Output 07/12/18 07/13/18 07/13/18 18:59 06:59 18:59 Intake Total 460 / 460 1711 / 1711 50 / 50 Output Total 1250 / 1250 1125 / 1125 Balance -790 / -790 586 / 586 50 / 50 Weight 59.2 kg Intake: IV 460 / 460 150 / 150 50 / 50 Precedex Inj 200 MCG In NS Inj 200 / 200 150 / 150 50 / 50 48 ML @ 0.1 MCG/KG/HR 1.58 mls/ hr IV.CONT TITRATE PRN Rx#: [id number] Potassium Phosphate Inj 30 MMOL 260 / 260 In NS Inj 250 ML @ 42 mls/hr IV.SIG UNSCH PRN Rx#:[id number] Oral 0 / 0 Tube Feeding 1161 / 1161 Tube Irrigant 0 / 0 Water Bolus Amount 400 / 400 Other 0 / 0 Output: Urine 0 / 0 Stool 0 / 0 Urine Amount (Catheter) 1250 / 1250 1125 / 1125 3-way Urethral 0 / 0 Indwelling Urethral Catheter 1250 / 1250 1125 / 1125 Gastric Drainage 0 / 0 Left Nare Nasogastric Tube 0 / 0 Other: Date of Last Bowel Movement 07/10/18 07/10/18 07/10/18 # Bowel Movements 0 <Aung Garcia - Last Filed: 07/13/18 16:55> Results - Labs CBC & Chem 7: 07/13/18 03:44 07/13/18 03:44 Labs: Laboratory Results - last 24 hr 07/12/18 07/12/18 07/12/18 14:02 14:35 14:36 WBC RBC Hgb Hct MCV MCH MCHC RDW Plt Count MPV Prelim Diff (Auto) Neut % (Auto) Lymph % (Auto) [place] % (Auto) Eos % (Auto) Baso % (Auto) Neut # (Auto) Lymph # (Auto) [place] # (Auto) Eos # (Auto) Baso # (Auto) WBC Differential Seg Neuts % (Manual) Band Neuts % (Manual) Lymphocytes % (Manual) Monocytes % (Manual) Abs Neuts (Manual) Differential Comment Platelet Estimate Platelet Morphology Puncture Site Left radial Patient Temperature 98.6 O2 Saturation 94 ABG pH 7.50 H ABG pCO2 35 L ABG pO2 79 ABG HCO3 27 H ABG O2 Content 13.4 ABG Base Excess 4.2 H ABG Methemoglobin 1.5 Carlos Test Y Hemoglobin 10.0 L Carboxyhemoglobin 1.0 O2 Delivery Device Nasal cannula Liter Flow 2.00 Critical Value No Sodium Potassium Chloride Carbon Dioxide Anion Gap BUN Creatinine Estimated GFR POC Glucose 269 H Random Glucose Calcium Phosphorus Magnesium Total Bilirubin AST ALT Alkaline Phosphatase Ammonia 28 Total Protein Albumin 07/12/18 07/12/18 07/12/18 17:01 19:29 23:52 WBC RBC Hgb Hct MCV MCH MCHC RDW Plt Count MPV Prelim Diff (Auto) Neut % (Auto) Lymph % (Auto) [place] % (Auto) Eos % (Auto) Baso % (Auto) Neut # (Auto) Lymph # (Auto) [place] # (Auto) Eos # (Auto) Baso # (Auto) WBC Differential Seg Neuts % (Manual) Band Neuts % (Manual) Lymphocytes % (Manual) Monocytes % (Manual) Abs Neuts (Manual) Differential Comment Platelet Estimate Platelet Morphology Puncture Site Patient Temperature O2 Saturation ABG pH ABG pCO2 ABG pO2 ABG HCO3 ABG O2 Content ABG Base Excess ABG Methemoglobin Carlos Test Hemoglobin Carboxyhemoglobin O2 Delivery Device Liter Flow Critical Value Sodium Potassium Chloride Carbon Dioxide Anion Gap BUN Creatinine Estimated GFR POC Glucose 224 H 145 H 157 H Random Glucose Calcium Phosphorus Magnesium Total Bilirubin AST ALT Alkaline Phosphatase Ammonia Total Protein Albumin 07/13/18 07/13/18 07/13/18 03:44 03:44 08:04 WBC 9.5 RBC 3.63 L Hgb 11.1 L Hct 34.1 L MCV 93.9 MCH 30.7 MCHC 32.7 RDW 16.2 Plt Count 57 L MPV 11.1 H Prelim Diff (Auto) Slide review pending Neut % (Auto) 86.4 H Lymph % (Auto) 7.6 L [place] % (Auto) 5.5 Eos % (Auto) 0.3 Baso % (Auto) 0.2 Neut # (Auto) 8.2 H Lymph # (Auto) 0.7 L [place] # (Auto) 0.5 Eos # (Auto) 0.0 Baso # (Auto) 0.0 WBC Differential Manual diff final Seg Neuts % (Manual) 78 H Band Neuts % (Manual) 18 H Lymphocytes % (Manual) 2 L Monocytes % (Manual) 2 Abs Neuts (Manual) 9.1 H Differential Comment . Platelet Estimate Low L Platelet Morphology Normal Puncture Site Patient Temperature O2 Saturation ABG pH ABG pCO2 ABG pO2 ABG HCO3 ABG O2 Content ABG Base Excess ABG Methemoglobin Carlos Test Hemoglobin Carboxyhemoglobin O2 Delivery Device Liter Flow Critical Value Sodium 146 H Potassium 4.0 Chloride 105 Carbon Dioxide 30.2 Anion Gap 11 BUN 28 H Creatinine 0.99 Estimated GFR 75 L POC Glucose 226 H Random Glucose 292 H D Calcium 8.1 L Phosphorus 3.6 D Magnesium 2.0 Total Bilirubin 0.5 AST 56 H ALT 100 H Alkaline Phosphatase 135 H Ammonia Total Protein 6.4 Albumin 2.1 L - Imaging Impressions Chest X-Ray 07/12/18 00:00 CONCLUSION: 1. Persistent mild patchy bibasilar airspace disease, likely atelectasis. 2. No significant interval change following expiration. Head CT 07/12/18 00:00 CONCLUSION: 1. No acute intracranial abnormality. 2. Atrophy. 3. Increased density seen throughout the mastoid air cells and middle ear regions. . <Ksenia Molina - Last Filed: 07/13/18 11:15> - Labs CBC & Chem 7: 07/13/18 03:44 07/13/18 03:44 Labs: Laboratory Results - last 24 hr 07/12/18 07/12/18 07/12/18 17:01 19:29 23:52 WBC RBC Hgb Hct MCV MCH MCHC RDW Plt Count MPV Prelim Diff (Auto) Neut % (Auto) Lymph % (Auto) [place] % (Auto) Eos % (Auto) Baso % (Auto) Neut # (Auto) Lymph # (Auto) [place] # (Auto) Eos # (Auto) Baso # (Auto) WBC Differential Seg Neuts % (Manual) Band Neuts % (Manual) Lymphocytes % (Manual) Monocytes % (Manual) Abs Neuts (Manual) Differential Comment Platelet Estimate Platelet Morphology Sodium Potassium Chloride Carbon Dioxide Anion Gap BUN Creatinine Estimated GFR POC Glucose 224 H 145 H 157 H Random Glucose Calcium Phosphorus Magnesium Total Bilirubin AST ALT Alkaline Phosphatase Total Protein Albumin 07/13/18 07/13/18 07/13/18 03:37 03:44 03:44 WBC 9.5 RBC 3.63 L Hgb 11.1 L Hct 34.1 L MCV 93.9 MCH 30.7 MCHC 32.7 RDW 16.2 Plt Count 57 L MPV 11.1 H Prelim Diff (Auto) Slide review pending Neut % (Auto) 86.4 H Lymph % (Auto) 7.6 L [place] % (Auto) 5.5 Eos % (Auto) 0.3 Baso % (Auto) 0.2 Neut # (Auto) 8.2 H Lymph # (Auto) 0.7 L [place] # (Auto) 0.5 Eos # (Auto) 0.0 Baso # (Auto) 0.0 WBC Differential Manual diff final Seg Neuts % (Manual) 78 H Band Neuts % (Manual) 18 H Lymphocytes % (Manual) 2 L Monocytes % (Manual) 2 Abs Neuts (Manual) 9.1 H Differential Comment . Platelet Estimate Low L Platelet Morphology Normal Sodium 146 H Potassium 4.0 Chloride 105 Carbon Dioxide 30.2 Anion Gap 11 BUN 28 H Creatinine 0.99 Estimated GFR 75 L POC Glucose 307 H Random Glucose 292 H D Calcium 8.1 L Phosphorus 3.6 D Magnesium 2.0 Total Bilirubin 0.5 AST 56 H ALT 100 H Alkaline Phosphatase 135 H Total Protein 6.4 Albumin 2.1 L 07/13/18 07/13/18 07/13/18 08:04 12:40 16:07 WBC RBC Hgb Hct MCV MCH MCHC RDW Plt Count MPV Prelim Diff (Auto) Neut % (Auto) Lymph % (Auto) [place] % (Auto) Eos % (Auto) Baso % (Auto) Neut # (Auto) Lymph # (Auto) [place] # (Auto) Eos # (Auto) Baso # (Auto) WBC Differential Seg Neuts % (Manual) Band Neuts % (Manual) Lymphocytes % (Manual) Monocytes % (Manual) Abs Neuts (Manual) Differential Comment Platelet Estimate Platelet Morphology Sodium Potassium Chloride Carbon Dioxide Anion Gap BUN Creatinine Estimated GFR POC Glucose 226 H 167 H 236 H Random Glucose Calcium Phosphorus Magnesium Total Bilirubin AST ALT Alkaline Phosphatase Total Protein Albumin - Imaging Impressions Head CT 07/12/18 00:00 CONCLUSION: 1. No acute intracranial abnormality. 2. Atrophy. 3. Increased density seen throughout the mastoid air cells and middle ear regions. . <Aung Garcia - Last Filed: 07/13/18 16:55> Assessment and Plan - Plan Assessment: - Dysphagia secondary to encephalopathy Pt admitted to ICU, was mechanically ventilated due to hypoxia, now on 2 L O2 via NC. He is encephalopathic and receiving TF through NG tube, Glucerna 1.5 at 55 mL/hr. Our service has been consulted for PEG tube placement. Family has not decided if they want to proceed with PEG tube, palliative care will be meeting with them this afternoon to further address goals of care - Thrombocytopenia noted- plts currently 57- hematology has seen pt, states that pt has known thrombocytopenia according to and that his platelets normally run around 60,000 and due to this no bone marrow biopsy was recommended Plan: Possible PEG Monday Will await palliative meeting with family Monitor platelets Continue nutrition through NG at this time Glucerna 1.5 @ 55 mL/hr Further recommendations to follow Pt has been seen and examined by myself and Dr. Garcia and this note is written on his behalf <Ksenia Molina - Last Filed: 07/13/18 11:15> - Plan Seen and examined with [employer] [facility], possible peg next week if pt. still here. Family hoping for transfer to [facility] for further care. The exam, history, and the medical decision-making described in the above note were completed with the assistance of the mid-level provider. I reviewed and agree with the findings presented. I attest that I had a [id number] encounter with the patient on the same day, and personally performed and documented my assessment and findings in the medical record. <Aung Garcia - Last Filed: 07/13/18 16:55>
--- NOTE | 2018-07-13 12:01 | P.PNPAL ---
Reason for Visit Reason for visit: a. To assist with evaluation and management of symptoms including: encephalopathy,dyspnea, pain, agitation. b. To assist medical decision maker(s ) with: better understanding of current medical conditions; weighing benefits/ burdens of medical treatment options; making medical treatment decisions. Subjective Subjective/Interval History: Patient seen and examined in ICU. at bedside. Patient is awake and alert, does not speak. Tracking. Does not follow commands for me. He remains in bilateral soft wrist restraints, reports he continues to attempt to pull out tubes. Does not appear uncomfortable. Does not appear tender on abdominal exam. Remains on oxygen via NC. Tolerating tube feeding. EEG revealed encephalopathy. CT head without acute intracranial abnormality. Family/Friend Interactions: Met with at bedside. Dr. Damon also present. Family desires transfer to when medically cleared and arrangements can be made. Dr. Devine will discuss with Dr. Villegas. I spoke with Dr. Garcia who agrees with plan for transfer when cleared by attending and Dr. Villegas. GI will place PEG tube next week Monday if still here. Notified case worker at bedside to discuss [employer] she has spoken with. Questions answered. Advance Directives Living Will: Never completed Health Care Surrogate: Never completed Durable Power of Luggage Maker: Never completed Objective Vital Signs: Vital Signs 07/12/18 12:00 07/12/18 13:00 07/12/18 13:01 Temperature Pulse Rate 67 63 63 Respiratory Rate 22 22 23 Blood Pressure 114/56 L 107/53 L Pulse Oximetry 99 98 99 07/12/18 14:00 07/12/18 15:00 07/12/18 16:00 Temperature Pulse Rate 73 64 60 Respiratory Rate 21 25 H 22 Blood Pressure 110/53 L 114/75 Pulse Oximetry 98 99 97 07/12/18 16:23 07/12/18 16:36 07/12/18 17:00 Temperature Pulse Rate 60 60 72 Respiratory Rate 23 20 32 H Blood Pressure 120/59 L Pulse Oximetry 98 100 07/12/18 17:01 07/12/18 18:00 07/12/18 20:00 Temperature 100.9 F H Pulse Rate 69 79 96 H Respiratory Rate 24 27 H Blood Pressure 114/77 121/58 L Pulse Oximetry 100 97 07/12/18 21:00 07/12/18 22:00 07/13/18 00:00 Temperature 101.7 F H Pulse Rate 90 92 H 90 Respiratory Rate 20 23 Blood Pressure 122/56 L Pulse Oximetry 98 07/13/18 02:00 07/13/18 03:45 07/13/18 04:00 Temperature 98.9 F Pulse Rate 86 80 85 Respiratory Rate 18 25 H Blood Pressure 129/56 L Pulse Oximetry 100 07/13/18 06:00 07/13/18 08:00 07/13/18 08:40 Temperature 97.5 F L Pulse Rate 78 74 78 Respiratory Rate 10 L 16 Blood Pressure 132/59 L Pulse Oximetry 100 98 07/13/18 10:00 Temperature Pulse Rate 80 Respiratory Rate Blood Pressure Pulse Oximetry Intake & Output 07/12/18 07/13/18 07/13/18 18:59 06:59 18:59 Intake Total 200 / 200 1711 / 1711 Output Total 1250 / 1250 1125 / 1125 Balance -1050 / -1050 586 / 586 Weight 59.2 kg Intake: IV 200 / 200 150 / 150 Precedex Inj 200 MCG In NS Inj 200 / 200 150 / 150 48 ML @ 0.1 MCG/KG/HR 1.58 mls/ hr IV.CONT TITRATE PRN Rx#: [id number] Oral 0 / 0 Tube Feeding 1161 / 1161 Tube Irrigant 0 / 0 Water Bolus Amount 400 / 400 Other 0 / 0 Output: Urine 0 / 0 Stool 0 / 0 Urine Amount (Catheter) 1250 / 1250 1125 / 1125 3-way Urethral 0 / 0 Indwelling Urethral Catheter 1250 / 1250 1125 / 1125 Gastric Drainage 0 / 0 Left Nare Nasogastric Tube 0 / 0 Other: Date of Last Bowel Movement 07/10/18 07/10/18 07/10/18 # Bowel Movements 0 Physical Exam: SKIN: No jaundice, rashes, or lesions. Wound on backside, not visualized today. Skin temperature appropriate. Not diaphoretic. EYES: No scleral icterus. No injection or drainage. Fundi not examined. ENT: Nose without bleeding or purulent drainage. NGT. Oral mucosa dry. CARDIOVASCULAR: irregular RESPIRATORY/CHEST: Symmetric, unlabored respirations. CTA GASTROINTESTINAL: ABD soft, nontender, mildly distended, BS + GENITOURINARY: Without palpable bladder distension. Nevarez catheter in place. MUSCULOSKELETAL: BUE in restraints. Extremities without clubbing, cyanosis, or edema. No mottling or clubbing. NEUROLOGICAL: restless, uncooperative PSYCHIATRIC: restless Diagnostic Tests Laboratory: Laboratory Results - last 72 hr 07/10/18 07/10/18 07/11/18 12:39 20:43 00:38 WBC RBC Hgb Hct MCV MCH MCHC RDW Plt Count MPV Prelim Diff (Auto) Neut % (Auto) Lymph % (Auto) [place] % (Auto) Eos % (Auto) Baso % (Auto) Neut # (Auto) Lymph # (Auto) [place] # (Auto) Eos # (Auto) Baso # (Auto) WBC Differential Diff Scan Seg Neuts % (Manual) Band Neuts % (Manual) Lymphocytes % (Manual) Monocytes % (Manual) Abs Neuts (Manual) Differential Comment Platelet Estimate Platelet Morphology Ovalocytes Puncture Site Patient Temperature O2 Saturation ABG pH ABG pCO2 ABG pO2 ABG HCO3 ABG O2 Content ABG Base Excess ABG Methemoglobin [place] Test Hemoglobin Carboxyhemoglobin O2 Delivery Device Liter Flow Critical Value Sodium Potassium Chloride Carbon Dioxide Anion Gap BUN Creatinine Estimated GFR POC Glucose 242 H 272 H 205 H Random Glucose Calcium Phosphorus Magnesium Total Bilirubin AST ALT Alkaline Phosphatase Ammonia Total Protein Albumin Vitamin B12 07/11/18 07/11/18 07/11/18 04:27 04:27 04:46 WBC RBC Hgb Hct MCV MCH MCHC RDW Plt Count MPV Prelim Diff (Auto) Neut % (Auto) Lymph % (Auto) [place] % (Auto) Eos % (Auto) Baso % (Auto) Neut # (Auto) Lymph # (Auto) [place] # (Auto) Eos # (Auto) Baso # (Auto) WBC Differential Diff Scan Seg Neuts % (Manual) Band Neuts % (Manual) Lymphocytes % (Manual) Monocytes % (Manual) Abs Neuts (Manual) Differential Comment Platelet Estimate Platelet Morphology Ovalocytes Puncture Site Patient Temperature O2 Saturation ABG pH ABG pCO2 ABG pO2 ABG HCO3 ABG O2 Content ABG Base Excess ABG Methemoglobin [place] Test Hemoglobin Carboxyhemoglobin O2 Delivery Device Liter Flow Critical Value Sodium 145 Potassium 3.2 L Chloride 107 Carbon Dioxide 28.5 Anion Gap 10 BUN 21 H Creatinine 0.86 Estimated GFR 88 L POC Glucose 94 Random Glucose 81 Calcium 8.2 L Phosphorus 2.5 Magnesium 1.8 Total Bilirubin 0.5 AST 104 H ALT 148 H Alkaline Phosphatase 136 H Ammonia Total Protein 6.2 L Albumin 2.2 L Vitamin B12 1195 H 07/11/18 07/11/18 07/11/18 04:51 11:07 18:00 WBC 5.1 RBC 3.52 L Hgb 10.9 L Hct 32.1 L MCV 91.4 MCH 31.0 MCHC 33.9 RDW 15.7 Plt Count 76 L MPV 10.1 Prelim Diff (Auto) Slide review pending Neut % (Auto) 76.7 H Lymph % (Auto) 16.8 [place] % (Auto) 5.2 Eos % (Auto) 0.2 Baso % (Auto) 1.1 Neut # (Auto) 3.9 Lymph # (Auto) 0.9 L [place] # (Auto) 0.3 Eos # (Auto) 0.0 Baso # (Auto) 0.1 WBC Differential . Diff Scan Auto diff confirmed Seg Neuts % (Manual) Band Neuts % (Manual) Lymphocytes % (Manual) Monocytes % (Manual) Abs Neuts (Manual) Differential Comment . Platelet Estimate Platelet Morphology Ovalocytes Puncture Site Patient Temperature O2 Saturation ABG pH ABG pCO2 ABG pO2 ABG HCO3 ABG O2 Content ABG Base Excess ABG Methemoglobin [place] Test Hemoglobin Carboxyhemoglobin O2 Delivery Device Liter Flow Critical Value Sodium Potassium Chloride Carbon Dioxide Anion Gap BUN Creatinine Estimated GFR POC Glucose 178 H 291 H Random Glucose Calcium Phosphorus Magnesium Total Bilirubin AST ALT Alkaline Phosphatase Ammonia Total Protein Albumin Vitamin B12 07/11/18 07/11/18 07/12/18 20:03 23:19 00:44 WBC RBC Hgb Hct MCV MCH MCHC RDW Plt Count MPV Prelim Diff (Auto) Neut % (Auto) Lymph % (Auto) [place] % (Auto) Eos % (Auto) Baso % (Auto) Neut # (Auto) Lymph # (Auto) [place] # (Auto) Eos # (Auto) Baso # (Auto) WBC Differential Diff Scan Seg Neuts % (Manual) Band Neuts % (Manual) Lymphocytes % (Manual) Monocytes % (Manual) Abs Neuts (Manual) Differential Comment Platelet Estimate Platelet Morphology Ovalocytes Puncture Site Patient Temperature O2 Saturation ABG pH ABG pCO2 ABG pO2 ABG HCO3 ABG O2 Content ABG Base Excess ABG Methemoglobin [place] Test Hemoglobin Carboxyhemoglobin O2 Delivery Device Liter Flow Critical Value Sodium Potassium 4.0 D Chloride Carbon Dioxide Anion Gap BUN Creatinine Estimated GFR POC Glucose 321 H 178 H Random Glucose Calcium Phosphorus Magnesium Total Bilirubin AST ALT Alkaline Phosphatase Ammonia Total Protein Albumin Vitamin B12 07/12/18 07/12/18 07/12/18 04:15 04:36 04:58 WBC 8.8 RBC 3.57 L Hgb 11.1 L Hct 32.9 L MCV 92.1 MCH 31.1 MCHC 33.8 RDW 15.8 Plt Count 71 L MPV 10.5 Prelim Diff (Auto) Slide review pending Neut % (Auto) 92.4 H Lymph % (Auto) 3.8 L [place] % (Auto) 3.3 Eos % (Auto) 0.2 Baso % (Auto) 0.3 Neut # (Auto) 8.2 H Lymph # (Auto) 0.3 L [place] # (Auto) 0.3 Eos # (Auto) 0.0 Baso # (Auto) 0.0 WBC Differential Manual diff final Diff Scan Seg Neuts % (Manual) 79 H Band Neuts % (Manual) 14 H Lymphocytes % (Manual) 6 L Monocytes % (Manual) 1 Abs Neuts (Manual) 8.2 H Differential Comment . Platelet Estimate Low L Platelet Morphology Normal Ovalocytes 1+ H Puncture Site Patient Temperature O2 Saturation ABG pH ABG pCO2 ABG pO2 ABG HCO3 ABG O2 Content ABG Base Excess ABG Methemoglobin [place] Test Hemoglobin Carboxyhemoglobin O2 Delivery Device Liter Flow Critical Value Sodium Potassium Chloride Carbon Dioxide Anion Gap BUN Creatinine Estimated GFR POC Glucose 57 L 140 H Random Glucose Calcium Phosphorus Magnesium Total Bilirubin AST ALT Alkaline Phosphatase Ammonia Total Protein Albumin Vitamin B12 07/12/18 07/12/18 07/12/18 04:58 10:30 14:02 WBC RBC Hgb Hct MCV MCH MCHC RDW Plt Count MPV Prelim Diff (Auto) Neut % (Auto) Lymph % (Auto) [place] % (Auto) Eos % (Auto) Baso % (Auto) Neut # (Auto) Lymph # (Auto) [place] # (Auto) Eos # (Auto) Baso # (Auto) WBC Differential Diff Scan Seg Neuts % (Manual) Band Neuts % (Manual) Lymphocytes % (Manual) Monocytes % (Manual) Abs Neuts (Manual) Differential Comment Platelet Estimate Platelet Morphology Ovalocytes Puncture Site Patient Temperature O2 Saturation ABG pH ABG pCO2 ABG pO2 ABG HCO3 ABG O2 Content ABG Base Excess ABG Methemoglobin [place] Test Hemoglobin Carboxyhemoglobin O2 Delivery Device Liter Flow Critical Value Sodium 147 H Potassium 3.3 L Chloride 108 H Carbon Dioxide 28.3 Anion Gap 11 BUN 23 H Creatinine 0.91 Estimated GFR 82 L POC Glucose 325 H Random Glucose 159 H Calcium 8.2 L Phosphorus 2.0 L Magnesium 1.7 Total Bilirubin 0.4 AST 78 H ALT 129 H Alkaline Phosphatase 142 H Ammonia 28 Total Protein 6.3 L Albumin 2.2 L Vitamin B12 07/12/18 07/12/18 07/12/18 14:35 14:36 17:01 WBC RBC Hgb Hct MCV MCH MCHC RDW Plt Count MPV Prelim Diff (Auto) Neut % (Auto) Lymph % (Auto) [place] % (Auto) Eos % (Auto) Baso % (Auto) Neut # (Auto) Lymph # (Auto) [place] # (Auto) Eos # (Auto) Baso # (Auto) WBC Differential Diff Scan Seg Neuts % (Manual) Band Neuts % (Manual) Lymphocytes % (Manual) Monocytes % (Manual) Abs Neuts (Manual) Differential Comment Platelet Estimate Platelet Morphology Ovalocytes Puncture Site Left radial Patient Temperature 98.6 O2 Saturation 94 ABG pH 7.50 H ABG pCO2 35 L ABG pO2 79 ABG HCO3 27 H ABG O2 Content 13.4 ABG Base Excess 4.2 H ABG Methemoglobin 1.5 Carlos Test Y Hemoglobin 10.0 L Carboxyhemoglobin 1.0 O2 Delivery Device Nasal cannula Liter Flow 2.00 Critical Value No Sodium Potassium Chloride Carbon Dioxide Anion Gap BUN Creatinine Estimated GFR POC Glucose 269 H 224 H Random Glucose Calcium Phosphorus Magnesium Total Bilirubin AST ALT Alkaline Phosphatase Ammonia Total Protein Albumin Vitamin B12 07/12/18 07/12/18 07/13/18 19:29 23:52 03:37 WBC RBC Hgb Hct MCV MCH MCHC RDW Plt Count MPV Prelim Diff (Auto) Neut % (Auto) Lymph % (Auto) [place] % (Auto) Eos % (Auto) Baso % (Auto) Neut # (Auto) Lymph # (Auto) [place] # (Auto) Eos # (Auto) Baso # (Auto) WBC Differential Diff Scan Seg Neuts % (Manual) Band Neuts % (Manual) Lymphocytes % (Manual) Monocytes % (Manual) Abs Neuts (Manual) Differential Comment Platelet Estimate Platelet Morphology Ovalocytes Puncture Site Patient Temperature O2 Saturation ABG pH ABG pCO2 ABG pO2 ABG HCO3 ABG O2 Content ABG Base Excess ABG Methemoglobin [place] Test Hemoglobin Carboxyhemoglobin O2 Delivery Device Liter Flow Critical Value Sodium Potassium Chloride Carbon Dioxide Anion Gap BUN Creatinine Estimated GFR POC Glucose 145 H 157 H 307 H Random Glucose Calcium Phosphorus Magnesium Total Bilirubin AST ALT Alkaline Phosphatase Ammonia Total Protein Albumin Vitamin B12 07/13/18 07/13/18 07/13/18 03:44 03:44 08:04 WBC 9.5 RBC 3.63 L Hgb 11.1 L Hct 34.1 L MCV 93.9 MCH 30.7 MCHC 32.7 RDW 16.2 Plt Count 57 L MPV 11.1 H Prelim Diff (Auto) Slide review pending Neut % (Auto) 86.4 H Lymph % (Auto) 7.6 L [place] % (Auto) 5.5 Eos % (Auto) 0.3 Baso % (Auto) 0.2 Neut # (Auto) 8.2 H Lymph # (Auto) 0.7 L [place] # (Auto) 0.5 Eos # (Auto) 0.0 Baso # (Auto) 0.0 WBC Differential Manual diff final Diff Scan Seg Neuts % (Manual) 78 H Band Neuts % (Manual) 18 H Lymphocytes % (Manual) 2 L Monocytes % (Manual) 2 Abs Neuts (Manual) 9.1 H Differential Comment . Platelet Estimate Low L Platelet Morphology Normal Ovalocytes Puncture Site Patient Temperature O2 Saturation ABG pH ABG pCO2 ABG pO2 ABG HCO3 ABG O2 Content ABG Base Excess ABG Methemoglobin [place] Test Hemoglobin Carboxyhemoglobin O2 Delivery Device Liter Flow Critical Value Sodium 146 H Potassium 4.0 Chloride 105 Carbon Dioxide 30.2 Anion Gap 11 BUN 28 H Creatinine 0.99 Estimated GFR 75 L POC Glucose 226 H Random Glucose 292 H D Calcium 8.1 L Phosphorus 3.6 D Magnesium 2.0 Total Bilirubin 0.5 AST 56 H ALT 100 H Alkaline Phosphatase 135 H Ammonia Total Protein 6.4 Albumin 2.1 L Vitamin B12 Result Diagrams: 07/13/18 03:44 07/13/18 03:44 Imaging: Abdomen/Bladder Ultrasound 06/21/18 00:00 CONCLUSION: 1. Increased echogenicity of both kidneys typical of chronic parenchymal disease. 2. No evidence of acute obstructive uropathy. 3. Bilateral benign appearing renal cysts. Abdomen/Pelvis CT 07/04/18 00:00 CONCLUSION: The bulging in the right lower quadrant is related to distention of the cecum. Abdomen X-Ray 07/10/18 08:00 CONCLUSION: No evidence of obstruction. Chest X-Ray 07/12/18 00:00 CONCLUSION: 1. Persistent mild patchy bibasilar airspace disease, likely atelectasis. 2. No significant interval change following expiration. Head CT 07/12/18 00:00 CONCLUSION: 1. No acute intracranial abnormality. 2. Atrophy. 3. Increased density seen throughout the mastoid air cells and middle ear regions. . Procedures: 06/23 reintubated 06/26 heart cath 07/09 extubated Assessment and Plan - Disease Oriented Problem List (1) Respiratory failure (2) Non-ST elevated myocardial infarction (non-STEMI) (3) Cardiomyopathy (4) PVD (peripheral vascular disease) (5) Tobacco abuse (6) Constipation - Symptom Scale (1) Dyspnea 0-10 Scale: Unable to quantify (2) Pain 0-10 Scale: Unable to quantify (3) Agitation 0-10 Scale: Unable to quantify (4) Encephalopathy 0-10 Scale: Unable to quantify (5) Constipation 0-10 Scale: Unable to quantify Pertinent Non-Medical Issues: Psychosocial: Pt originally from [place]. with 4 kids. 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 Spiritual: hindu. 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 Legal: Per [place] statute is proxy decision maker. Ethical issues impacting care: none Important Contacts: Kristine Austin, - [phone] Prognosis: This is a 72-year-old male with history CHF, COPD, tobacco abuse, diabetes who presented 06/20 [place] He has a defibrillator implanted. His baseline ejection fraction is 25% and he is now at less than 20%. Patient reintubated 06/23, extubated . Had cardiac cath 06/26 with finding 3 vessel CAD, non ischemic dilated cardiomyopathy. Unclear if he is candidate for heart transplant d/t significant COPD. He is at high risk for continued complications and decline. Code Status: Full Code Plan: - LEGAL DECISON MAKER -No written advanced directives. Patient is not capacitated to make medical decisions, uncertain if he will regain capacity. Per [place] statutes, health care proxy decision making falls to his . - FULL CODE - GOALS - Met with , attending physician Dr Snow and Dr. Garcia. Discussed medical status, PEG tube (GI will place next week if still here). Family desires continued aggressive care including PEG tube in hopes he will be able to be transferred home for continued medical care. Family feels he will do better when closer to family. Dr. Damon will discuss with Dr. Villegas to determine if and when patient can be considered for medical flight/ medical transfer. Discussed with case management. - SYMPTOMS - * pain - multifactorial- prolonged bedbound status, mult tubes and lines, had ileus, now with DTI sacrum. chest pain prior to admission. ileus is improved. Has PRN Tylenol ordered, no pain recommendations at this time. * constipation - tolerating TF. abd soft and nontender, mildly distended today. BS +. * dyspnea -reintubated 06/23. extubated 07/09. Recent N STEMI. EF < 20% . s/p cardiac cath 06/26 findings 3 vessel CAD, nonischemic dilated cardiomyopathy. pulmonology consulted for significant COPD. CV surgery consulted, not candidate at this time. pt extubated and has been agitated, Tolerating oxygen via NC. scheduled DuoNeb's * agitation - multifactorial. encephalopathy. extubated, still with agitation and not sleeping for days. today he is restless, shaking head and moving arms, uncooperative. seroquel was increased from 25 mg to 50 BID,. neuro following, EEG revealed generalized encephalopathy, CT no acute intracranial changes. Uncertain if encephalopathy will improve. - d/w RN, Dr. Damon, Dr. Garcia, case worker. - Palliative care will continue to follow during hospital course as condition evolves, to assist patient/decision-maker with understanding of medical conditions, weighing benefits/burdens of treatment options, for clarification of goals of treatment. Additionally will assist with any symptoms of palliative concern Attestation Attestation: To help prompt me to consider important information that might be impacting today's encounter and assessment, information from prior notes written by myself or my colleagues may have been "brought forward" into today's note. My signature on this note, however, is an attestation that I personally performed the exam, history, and/or decision-making noted today, and, unless otherwise indicated, the interactions with patient, family, and staff as well as the review of records all occurred today. I also attest that the listed assessment and stated plan reflect my best clinical judgment today based on the combination of historical information, prior notes, and today's exam/ interactions. When time spent is documented, it refers only to time spent today by the signer, or if indicated, combined time spent today by collaborating physician/nurse practitioner.
[2018-07-13 18:16] LABS: Bacteria,Urine Occasional /hpf; Bilirubin,Urine Negative (Negative); Clarity,Urine Hazy (Clear); Color,Urine Yellow (Yellw/Straw); Glucose,Urine (UA) Negative (Negative); Leukocyte Esterase,Urine Small (Negative); Nitrite,Urine Positive (Negative); Urobilinogen,Urine 4 or Greater mg/dL (Less than 2)
[2018-07-13] MEDS: Insulin Detemir Inj 1,000 UNIT/10 ML Vial SQ SCH (21:33)
[2018-07-14] MEDS: Insulin NovoLOG Aspart Correctional Sugar Inj SQ SCH ×6 (00:59→21:23)
[2018-07-14] MEDS: LORazepam 0.5 MG Tablet PO SCH ×3 (00:59→21:24)
[2018-07-14] MEDS: Dexmedetomidine Inj 200 MCG in Sodium Chlor 0.9% Inj 48 ML IV.CONT PRN ×2 (03:29→06:33)
[2018-07-14 05:06] LABS: Baso % (Auto) 0.4 % (0.0-2.0); Eos # (Auto) 0.1 th/mm3 (0.0-0.4); Eos % (Auto) 1.1 % (0.0-4.0); Hematocrit 34.2 % (39.0-51.0); Hemoglobin 11.3 gm/dL (13.0-17.0); Lymph # (Auto) 1.3 th/mm3 (1.0-4.8); Lymph % (Auto) 17.4 % (9.0-44.0); Mean Corpuscular HGB Conc 32.9 % (32.0-36.0); Mean Corpuscular Hemoglobin 31.2 pg (27.0-34.0); Mean Corpuscular Volume 94.7 fL (80.0-100.0); Mean Platelet Volume 11.1 fL (7.0-11.0); Mono # (Auto) 0.4 th/mm3 (0.0-0.9); Mono % (Auto) 5.9 % (0.0-8.0); Neut # (Auto) 5.4 th/mm3 (1.8-7.7); Neut % (Auto) 75.2 % (16.0-70.0); Platelet Count 61 th/mm3 (150-450); Red Blood Count 3.61 mil/mm3 (4.50-5.90); Red Cell Distribution Width 15.9 % (11.6-17.2); White Blood Count 7.2 th/mm3 (4.0-11.0)
[2018-07-14 05:34] LABS: Albumin 1.9 g/dL (3.4-5.0); Anion Gap 4 meq/L (5-15); Aspartate Aminotransferase 50 U/L (15-37); Blood Urea Nitrogen 30 mg/dL (7-18); Calcium 8.3 mg/dL (8.5-10.1); Chloride 107 meq/L (98-107); Glomerular Filtration Rate 79 mL/min (>89); Magnesium 2.1 mg/dL (1.5-2.5); Potassium 3.4 meq/L (3.5-5.1); Sodium 145 meq/L (136-145)
[2018-07-14 05:53] LABS: Alanine Aminotransferase 83 U/L (12-78); Alkaline Phosphatase 138 U/L (45-117); Glucose,Random 172 mg/dL (74-106); Total Protein 6.3 g/dL (6.4-8.2)
[2018-07-14] MEDS: Baclofen 10 MG Tablet PO SCH ×3 (06:06→21:25)
--- NOTE | 2018-07-14 08:36 | P.PNIM ---
Subjective Interval history: f/u; encephalopathy still on Precedex drip. opens the eyes to verbal stimuli but confused. T max 101.1. Physical Exam Vital signs: Vital Signs 07/13/18 08:30 07/13/18 08:40 07/13/18 08:45 Temperature Pulse Rate 80 78 72 Respiratory Rate 23 16 10 L Blood Pressure 127/59 L 126/59 L Pulse Oximetry 98 98 100 07/13/18 09:00 07/13/18 09:15 07/13/18 09:30 Temperature Pulse Rate 79 82 82 Respiratory Rate 28 H 28 H 26 H Blood Pressure 117/56 L 105/51 L 112/55 L Pulse Oximetry 98 97 98 07/13/18 09:45 07/13/18 10:00 07/13/18 10:15 Temperature Pulse Rate 79 80 87 Respiratory Rate 25 H 26 H 28 H Blood Pressure 109/54 L 120/51 L 120/58 L Pulse Oximetry 98 97 97 07/13/18 10:30 07/13/18 10:45 07/13/18 11:00 Temperature Pulse Rate 85 92 H 92 H Respiratory Rate 27 H 28 H 29 H Blood Pressure 116/56 L 127/57 L 116/59 L Pulse Oximetry 99 97 99 07/13/18 11:15 07/13/18 11:30 07/13/18 11:45 Temperature Pulse Rate 92 H 91 H 93 H Respiratory Rate 22 11 L 20 Blood Pressure 120/57 L 124/60 121/58 L Pulse Oximetry 99 97 99 07/13/18 12:00 07/13/18 12:15 07/13/18 12:30 Temperature Pulse Rate 99 H 97 H 99 H Respiratory Rate 18 27 H 32 H Blood Pressure 127/58 L 126/61 130/57 L Pulse Oximetry 97 98 96 07/13/18 14:00 07/13/18 16:00 07/13/18 16:16 Temperature 99.4 F Pulse Rate 104 H 102 H 103 H Respiratory Rate 28 H 30 H Blood Pressure 122/60 159/65 H Pulse Oximetry 94 L 94 L 07/13/18 16:30 07/13/18 16:46 07/13/18 17:00 Temperature Pulse Rate 108 H 109 H 111 H Respiratory Rate 29 H 31 H 33 H Blood Pressure 129/63 154/70 H 166/70 H Pulse Oximetry 94 L 95 94 L 07/13/18 17:01 07/13/18 17:15 07/13/18 17:30 Temperature Pulse Rate 109 H 112 H 114 H Respiratory Rate 33 H 31 H 29 H Blood Pressure 115/59 L 119/55 L 120/61 Pulse Oximetry 94 L 94 L 97 07/13/18 17:45 07/13/18 18:00 07/13/18 18:15 Temperature Pulse Rate 115 H 119 H 113 H Respiratory Rate 35 H 35 H 32 H Blood Pressure 127/60 125/63 128/79 Pulse Oximetry 95 95 97 07/13/18 18:31 07/13/18 18:45 07/13/18 19:00 Temperature Pulse Rate 107 H 113 H 114 H Respiratory Rate 31 H 30 H 31 H Blood Pressure 184/66 H 147/67 H 131/61 Pulse Oximetry 97 96 96 07/13/18 19:15 07/13/18 19:30 07/13/18 19:45 Temperature Pulse Rate 117 H 118 H 115 H Respiratory Rate 31 H 27 H 25 H Blood Pressure 134/63 125/57 L 140/64 Pulse Oximetry 95 92 L 94 L 07/13/18 20:00 07/13/18 20:15 07/13/18 20:30 Temperature 101.1 F H Pulse Rate 116 H 115 H 119 H Respiratory Rate 29 H 25 H 35 H Blood Pressure 135/65 125/58 L 138/65 Pulse Oximetry 96 94 L 95 07/13/18 20:45 07/13/18 21:00 07/13/18 21:15 Temperature Pulse Rate 118 H 115 H 119 H Respiratory Rate 32 H 32 H 33 H Blood Pressure 128/64 130/68 152/68 H Pulse Oximetry 95 95 95 07/13/18 21:30 07/13/18 21:45 07/13/18 22:00 Temperature Pulse Rate 117 H 117 H 109 H Respiratory Rate 30 H 33 H 28 H Blood Pressure 126/60 127/62 131/61 Pulse Oximetry 96 95 97 07/13/18 22:15 07/13/18 22:30 07/13/18 22:45 Temperature Pulse Rate 102 H 100 H 92 H Respiratory Rate 27 H 36 H 31 H Blood Pressure 128/66 130/59 L 126/63 Pulse Oximetry 97 96 98 07/13/18 23:00 07/13/18 23:15 07/13/18 23:30 Temperature Pulse Rate 92 H 88 84 Respiratory Rate 29 H 26 H 26 H Blood Pressure 137/62 129/60 122/79 Pulse Oximetry 97 98 98 07/13/18 23:45 07/14/18 00:00 07/14/18 00:11 Temperature 97.8 F Pulse Rate 84 84 Respiratory Rate 18 26 H Blood Pressure 119/58 L 121/59 L Pulse Oximetry 98 98 95 07/14/18 00:15 07/14/18 00:25 07/14/18 00:30 Temperature Pulse Rate 74 70 74 Respiratory Rate 4 L 20 26 H Blood Pressure 112/51 L 115/59 L Pulse Oximetry 97 100 07/14/18 00:45 07/14/18 01:00 07/14/18 01:15 Temperature Pulse Rate 79 74 75 Respiratory Rate 26 H 24 27 H Blood Pressure 120/54 L 98/53 L 95/51 L Pulse Oximetry 98 99 99 07/14/18 01:30 07/14/18 01:45 07/14/18 02:00 Temperature Pulse Rate 70 70 71 Respiratory Rate 25 H 13 24 Blood Pressure 98/51 L 105/52 L 93/53 L Pulse Oximetry 99 97 95 07/14/18 02:15 07/14/18 02:30 07/14/18 02:45 Temperature Pulse Rate 72 69 71 Respiratory Rate 27 H 23 25 H Blood Pressure 97/53 L 103/51 L 101/54 L Pulse Oximetry 93 L 97 99 07/14/18 03:00 07/14/18 03:15 07/14/18 03:30 Temperature Pulse Rate 71 75 75 Respiratory Rate 24 23 22 Blood Pressure 98/51 L 110/54 L 108/56 L Pulse Oximetry 99 99 98 07/14/18 03:45 07/14/18 04:00 07/14/18 04:15 Temperature 98.3 F Pulse Rate 79 76 79 Respiratory Rate 27 H 26 H 26 H Blood Pressure 113/58 L 116/55 L 125/58 L Pulse Oximetry 97 96 98 07/14/18 04:30 07/14/18 04:45 07/14/18 05:00 Temperature Pulse Rate 80 84 75 Respiratory Rate 20 22 21 Blood Pressure 138/58 L 143/63 H 112/56 L Pulse Oximetry 93 L 95 98 07/14/18 05:30 07/14/18 06:00 Temperature Pulse Rate 82 Respiratory Rate Blood Pressure Pulse Oximetry 96 Intake & Output 07/13/18 07/14/18 07/14/18 18:59 06:59 18:59 Intake Total 1061 / 1061 850 / 850 Output Total 1750 / 1750 600 / 600 Balance -689 / -689 250 / 250 Weight 59.2 kg Intake: IV 100 / 100 150 / 150 Precedex Inj 200 MCG In NS Inj 100 / 100 150 / 150 48 ML @ 0.1 MCG/KG/HR 1.58 mls/ hr IV.CONT TITRATE PRN Rx#: [id number] Oral 0 / 0 Tube Feeding 561 / 561 500 / 500 Tube Irrigant 0 / 0 Water Bolus Amount 400 / 400 200 / 200 Other 0 / 0 Output: Urine 0 / 0 Stool 0 / 0 Urine Amount (Catheter) 1750 / 1750 600 / 600 Indwelling Urethral Catheter 1750 / 1750 600 / 600 Gastric Drainage 0 / 0 Left Nare Nasogastric Tube 0 / 0 Other: Date of Last Bowel Movement 07/10/18 07/10/18 # Bowel Movements 0 0 - Constitutional no acute distress - Routine Respiratory Exam Present: CTA bilaterally - Routine Cardiovascular Exam Present: RRR - Routine Abdominal Exam Present: soft - Routine Extremities Exam Comments: no pedal edema. - Routine Neurological Exam opens the eyes to verbal stimuli but confused. - Urinary Catheter Management Indwelling Urethral Catheter Cath placed during this visit: yes Urethral indwelling: Yes Reason for continuing: Acute urinary retention Insertion date: 06/20/18 Insertion time: 21:24 3-way Urethral Cath placed during this visit: yes Reason for continuing: Acute urinary retention Insertion date: 07/06/18 Insertion time: 18:00 Results - Labs CBC & Chem 7: 07/14/18 04:15 07/14/18 04:15 Laboratory Results - last 24 hr 07/13/18 07/13/18 07/13/18 03:37 12:40 14:30 WBC RBC Hgb Hct MCV MCH MCHC RDW Plt Count MPV Prelim Diff (Auto) Neut % (Auto) Lymph % (Auto) [place] % (Auto) Eos % (Auto) Baso % (Auto) Neut # (Auto) Lymph # (Auto) [place] # (Auto) Eos # (Auto) Baso # (Auto) Differential Comment Sodium Potassium Chloride Carbon Dioxide Anion Gap BUN Creatinine Estimated GFR POC Glucose 307 H 167 H Random Glucose Calcium Phosphorus Magnesium Total Bilirubin AST ALT Alkaline Phosphatase Total Protein Albumin Urine Color Yellow Urine Clarity Hazy H Urine pH 8.0 Ur Specific Mears 1.010 Urine Protein 30 H Urine Glucose (UA) Negative Urine Ketones Negative Urine Occult Blood Small H Urine Nitrate Positive H Urine Bilirubin Negative Urine Urobilinogen 4 or greater Ur Leukocyte Esterase Small H Urine RBC Less than 1 Urine WBC 12 H Urine Bacteria Occasional H Granular Casts 3 Ur Microscopic Review Not Reportable 07/13/18 07/13/18 07/14/18 16:07 21:20 00:05 WBC RBC Hgb Hct MCV MCH MCHC RDW Plt Count MPV Prelim Diff (Auto) Neut % (Auto) Lymph % (Auto) [place] % (Auto) Eos % (Auto) Baso % (Auto) Neut # (Auto) Lymph # (Auto) [place] # (Auto) Eos # (Auto) Baso # (Auto) Differential Comment Sodium Potassium Chloride Carbon Dioxide Anion Gap BUN Creatinine Estimated GFR POC Glucose 236 H 239 H 225 H Random Glucose Calcium Phosphorus Magnesium Total Bilirubin AST ALT Alkaline Phosphatase Total Protein Albumin Urine Color Urine Clarity Urine pH Ur Specific [place]ears Urine Protein Urine Glucose (UA) Urine Ketones Urine Occult Blood Urine Nitrate Urine Bilirubin Urine Urobilinogen Ur Leukocyte Esterase Urine RBC Urine WBC Urine Bacteria Granular Casts Ur Microscopic Review 07/14/18 07/14/18 07/14/18 04:14 04:15 04:15 WBC 7.2 RBC 3.61 L Hgb 11.3 L Hct 34.2 L MCV 94.7 MCH 31.2 MCHC 32.9 RDW 15.9 Plt Count 61 L MPV 11.1 H Prelim Diff (Auto) Slide review pending Neut % (Auto) 75.2 H Lymph % (Auto) 17.4 [place] % (Auto) 5.9 Eos % (Auto) 1.1 Baso % (Auto) 0.4 Neut # (Auto) 5.4 Lymph # (Auto) 1.3 [place] # (Auto) 0.4 Eos # (Auto) 0.1 Baso # (Auto) 0.0 Differential Comment . Sodium 145 Potassium 3.4 L Chloride 107 Carbon Dioxide 34.0 H Anion Gap 4 L BUN 30 H Creatinine 0.94 Estimated GFR 79 L POC Glucose 176 H Random Glucose 172 H D Calcium 8.3 L Phosphorus 3.0 Magnesium 2.1 Total Bilirubin 0.5 AST 50 H ALT 83 H Alkaline Phosphatase 138 H Total Protein 6.3 L Albumin 1.9 L Urine Color Urine Clarity Urine pH Ur Specific [place] Urine Protein Urine Glucose (UA) Urine Ketones Urine Occult Blood Urine Nitrate Urine Bilirubin Urine Urobilinogen Ur Leukocyte Esterase Urine RBC Urine WBC Urine Bacteria Granular Casts Ur Microscopic Review - Procedures intubation/ cardiac cath. Assessment and Plan - Plan Resp failure- extubated 07/09 continue with neb treatment as needed. Acute decompensated CHF - systolic and diastolic EF 20% -appears euvolemic- s/p defibrillator placement continue BB and diuretic-no ENA due to FIDE- cardiology following. UTI with recurrent fever; will start on IV Rocephin and will follow the cultures. Staph aureus pneumonia -treated. Atrial fibrillation -rate controlled- continue BB Non-STEMI- -Cardiac cath per Dr. Noonan. Angiographically mild to moderate 3 -vessel coronary artery disease. EF 20%. continue aspirin, BB and statin. FIDE -creatinine normalizing, urine output remains adequate encephalopathy- evaluated by neurology. CT and EEG repeated; EEG with encephalopathy and CT brain with no acute intracranial abnormality. will taper down Precedex drip slowly- seroquel was increased. neurology will follow peripherally. Dysphagia/ severe protein-calorie malnutrition NPO for now- ST following- after my d/w the and ; GI was consulted for PEG placement. 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 Hypernatremia -resolved Thrombocytopenia -unchanged- will monitor. Adynamic ileus - ?Ogylvie -distention is improved Erectile Dysfunction PAD- continue aspirin and statin COPD- continue with neb treatment. pulmonary following. elevated LFT's- will monitor closely while on statin. -hyperglycemia; possible stress/ steroid -induced; A1c 5.5. added levemir and continue with accu-check with SSI DVT prophylaxis with subq Lovenox palliative care following. Discharge Planning: is planning to take him back to [place]- however the patient is still on Precedex Drip. previously d/w [facility].
[2018-07-14] MEDS: Bisacodyl 10 MG Supp RECTAL SCH (09:49)
[2018-07-14] MEDS: Metoprolol Tartrate 25 MG Tablet PO SCH ×2 (10:47→21:25)
[2018-07-14] MEDS: Senna/Docusate Sodium 8.6/50 MG Tablet PO SCH ×2 (10:48→21:25)
[2018-07-14] MEDS: Lisinopril 5 MG Tablet PO SCH (10:48)
[2018-07-14] MEDS: Enoxaparin Inj 40 MG/0.4 ML Syringe SQ SCH (10:49)
[2018-07-14] MEDS: Brimonidine 0.15% Opth Drops 5 ML Bottle EACH EYE SCH ×2 (10:50→21:24)
[2018-07-14] MEDS: Hypromellose 0.3% Opth Gel 10 GM Bottle EACH EYE SCH ×2 (10:50→21:24)
[2018-07-14] MEDS: QUEtiapine 25 MG Tablet NG/OG SCH ×2 (10:59→18:50)
[2018-07-14 11:31] LABS: Eosinophils 1 % (0-4); Lymphocytes 14 % (9-44); Monocytes 5 % (0-8); Platelet Morphology Normal (Normal)
[2018-07-14 11:32] LABS: Toxic Granulation 2+
--- NOTE | 2018-07-14 13:28 | P.PNADD ---
Addendum to Inpatient Note Reason for Addendum: Additional Documentation (d/w and the today; called [facility] transfer center; [phone]- as per my d/w the transfer center, ICU will not accept any patient at this point- and for the patient to be transferred to [facility]-surg, patient needs to have a minimum of six- hour stay on our med-surg floor prior to the transfer.)
--- NOTE | 2018-07-14 17:16 | P.PNCA ---
Subjective Interval history: appears more purposeful but not clearly following commands Physical Exam Vital signs: Vital Signs 07/13/18 17:15 07/13/18 17:30 07/13/18 17:45 Temperature Pulse Rate 112 H 114 H 115 H Respiratory Rate 31 H 29 H 35 H Blood Pressure 119/55 L 120/61 127/60 Pulse Oximetry 94 L 97 95 07/13/18 18:00 07/13/18 18:15 07/13/18 18:31 Temperature Pulse Rate 119 H 113 H 107 H Respiratory Rate 35 H 32 H 31 H Blood Pressure 125/63 128/79 184/66 H Pulse Oximetry 95 97 97 07/13/18 18:45 07/13/18 19:00 07/13/18 19:15 Temperature Pulse Rate 113 H 114 H 117 H Respiratory Rate 30 H 31 H 31 H Blood Pressure 147/67 H 131/61 134/63 Pulse Oximetry 96 96 95 07/13/18 19:30 07/13/18 19:45 07/13/18 20:00 Temperature 101.1 F H Pulse Rate 118 H 115 H 116 H Respiratory Rate 27 H 25 H 29 H Blood Pressure 125/57 L 140/64 135/65 Pulse Oximetry 92 L 94 L 96 07/13/18 20:15 07/13/18 20:30 07/13/18 20:45 Temperature Pulse Rate 115 H 119 H 118 H Respiratory Rate 25 H 35 H 32 H Blood Pressure 125/58 L 138/65 128/64 Pulse Oximetry 94 L 95 95 07/13/18 21:00 07/13/18 21:15 07/13/18 21:30 Temperature Pulse Rate 115 H 119 H 117 H Respiratory Rate 32 H 33 H 30 H Blood Pressure 130/68 152/68 H 126/60 Pulse Oximetry 95 95 96 07/13/18 21:45 07/13/18 22:00 07/13/18 22:15 Temperature Pulse Rate 117 H 109 H 102 H Respiratory Rate 33 H 28 H 27 H Blood Pressure 127/62 131/61 128/66 Pulse Oximetry 95 97 97 07/13/18 22:30 07/13/18 22:45 07/13/18 23:00 Temperature Pulse Rate 100 H 92 H 92 H Respiratory Rate 36 H 31 H 29 H Blood Pressure 130/59 L 126/63 137/62 Pulse Oximetry 96 98 97 07/13/18 23:15 07/13/18 23:30 07/13/18 23:45 Temperature Pulse Rate 88 84 84 Respiratory Rate 26 H 26 H 18 Blood Pressure 129/60 122/79 119/58 L Pulse Oximetry 98 98 98 07/14/18 00:00 07/14/18 00:11 07/14/18 00:15 Temperature 97.8 F Pulse Rate 84 74 Respiratory Rate 26 H 4 L Blood Pressure 121/59 L 112/51 L Pulse Oximetry 98 95 97 07/14/18 00:25 07/14/18 00:30 07/14/18 00:45 Temperature Pulse Rate 70 74 79 Respiratory Rate 20 26 H 26 H Blood Pressure 115/59 L 120/54 L Pulse Oximetry 100 98 07/14/18 01:00 07/14/18 01:15 07/14/18 01:30 Temperature Pulse Rate 74 75 70 Respiratory Rate 24 27 H 25 H Blood Pressure 98/53 L 95/51 L 98/51 L Pulse Oximetry 99 99 99 07/14/18 01:45 07/14/18 02:00 07/14/18 02:15 Temperature Pulse Rate 70 71 72 Respiratory Rate 13 24 27 H Blood Pressure 105/52 L 93/53 L 97/53 L Pulse Oximetry 97 95 93 L 07/14/18 02:30 07/14/18 02:45 07/14/18 03:00 Temperature Pulse Rate 69 71 71 Respiratory Rate 23 25 H 24 Blood Pressure 103/51 L 101/54 L 98/51 L Pulse Oximetry 97 99 99 07/14/18 03:15 07/14/18 03:30 07/14/18 03:45 Temperature Pulse Rate 75 75 79 Respiratory Rate 23 22 27 H Blood Pressure 110/54 L 108/56 L 113/58 L Pulse Oximetry 99 98 97 07/14/18 04:00 07/14/18 04:15 07/14/18 04:30 Temperature 98.3 F Pulse Rate 76 79 80 Respiratory Rate 26 H 26 H 20 Blood Pressure 116/55 L 125/58 L 138/58 L Pulse Oximetry 96 98 93 L 07/14/18 04:45 07/14/18 05:00 07/14/18 05:30 Temperature Pulse Rate 84 75 Respiratory Rate 22 21 Blood Pressure 143/63 H 112/56 L Pulse Oximetry 95 98 96 07/14/18 06:00 07/14/18 08:00 07/14/18 10:00 Temperature Pulse Rate 82 81 118 H Respiratory Rate 19 Blood Pressure Pulse Oximetry 07/14/18 10:08 07/14/18 12:00 Temperature Pulse Rate 93 H Respiratory Rate 19 Blood Pressure Pulse Oximetry 94 L Intake & Output 07/13/18 07/14/18 07/14/18 18:59 06:59 18:59 Intake Total 1061 / 1061 850 / 850 Output Total 1750 / 1750 600 / 600 Balance -689 / -689 250 / 250 Weight 59.2 kg Intake: IV 100 / 100 150 / 150 Precedex Inj 200 MCG In NS Inj 100 / 100 150 / 150 48 ML @ 0.1 MCG/KG/HR 1.58 mls/ hr IV.CONT TITRATE PRN Rx#: [id number] Oral 0 / 0 Tube Feeding 561 / 561 500 / 500 Tube Irrigant 0 / 0 Water Bolus Amount 400 / 400 200 / 200 Other 0 / 0 Output: Urine 0 / 0 Stool 0 / 0 Urine Amount (Catheter) 1750 / 1750 600 / 600 Indwelling Urethral Catheter 1750 / 1750 600 / 600 Gastric Drainage 0 / 0 Left Nare Nasogastric Tube 0 / 0 Other: Date of Last Bowel Movement 07/10/18 07/10/18 07/10/18 # Bowel Movements 0 0 - Urinary Catheter Management Indwelling Urethral Catheter Cath placed during this visit: yes Urethral indwelling: Yes Reason for continuing: Acute urinary retention Insertion date: 06/20/18 Insertion time: 21:24 3-way Urethral Cath placed during this visit: yes Reason for continuing: Acute urinary retention Insertion date: 07/06/18 Insertion time: 18:00 Assessment and Plan - Assessment (1) Cardiomyopathy Code(s): I42.9 - Cardiomyopathy, unspecified Status: Acute (2) Cardiomyopathy Code(s): I42.9 - Cardiomyopathy, unspecified Status: Acute (3) PVD (peripheral vascular disease) Code(s): I73.9 - Peripheral vascular disease, unspecified Status: Acute (4) PVD (peripheral vascular disease) Code(s): I73.9 - Peripheral vascular disease, unspecified Status: Acute (5) Tobacco abuse Code(s): Z72.0 - Tobacco use Status: Acute (6) Respiratory failure Code(s): J96.90 - Respiratory failure, unspecified, unspecified whether with hypoxia or hypercapnia Status: Acute (7) Non-ST elevated myocardial infarction (non-STEMI) Code(s): I21.4 - Non-ST elevation (NSTEMI) myocardial infarction Status: Acute (8) Pulmonary edema cardiac cause Code(s): I50.1 - Left ventricular failure, unspecified Status: Acute - Plan 1.) NICM - end stage, euvolemic, refuses in state transfer, requesting transfer to [facility], d/w Dr Solis; beta ana and hellen held due to hypotension, diuresing to optimize potential extubation, he has hypernatremia, continue lopressor, start lisinopril 2.5 mg qd 2.) CAD - nonobstructive, continue aspirin, pravachol 3.) Encephalopathy - moderate per EEG on sedation, neuro following 4.) d/w case with at the bedside 07/04/18 5.) Respiratory failure - he is euvolemic, appears to be due to pulmonary and/ or encephalopathic etilology, extubated 07/09/18 but restrained and not following commands, will follow trends in mental and respiratory status, d/w at the bedside 07/14/18, placement @ [facility] indeterminate currently (2) Cardiomyopathy Qualifiers: Cardiomyopathy type: viral Qualified Code(s): B33.24 - Viral cardiomyopathy (6) Respiratory failure Qualifiers: Chronicity: acute Respiratory failure complication: hypoxia Qualified Code(s ): J96.01 - Acute respiratory failure with hypoxia
[2018-07-14] MEDS: Insulin Detemir Inj 1,000 UNIT/10 ML Vial SQ SCH (21:24)
[2018-07-14] MEDS ORDERED: Metoprolol Inj 5 MG/5 ML Vial IV.PUSH ONE (23:33)
[2018-07-15] MEDS: Insulin NovoLOG Aspart Correctional Sugar Inj SQ SCH ×7 (00:01→23:46)
[2018-07-15] MEDS: Baclofen 10 MG Tablet PO SCH ×3 (05:29→23:45)
--- NOTE | 2018-07-15 08:25 | P.PNIM ---
Subjective Interval history: f/u; encephalopathy in no acute distress. but somewhat restless and still on restraints. Precedex drip was discontinued yesterday. reportedly he pulled out his NG tube. T max 100.4. no other acute issues over night. d/w the RN. Physical Exam Vital signs: Vital Signs 07/14/18 10:00 07/14/18 10:08 07/14/18 12:00 Temperature 100.4 F H Pulse Rate 118 H 93 H Respiratory Rate 19 Blood Pressure 131/59 L Pulse Oximetry 94 L 94 L 07/14/18 14:00 07/14/18 16:00 07/14/18 18:00 Temperature 98.8 F Pulse Rate 114 H 102 H 115 H Respiratory Rate Blood Pressure 138/65 Pulse Oximetry 102 H 07/14/18 20:00 07/14/18 22:00 07/14/18 22:04 Temperature 98.3 F Pulse Rate 116 H 123 H Respiratory Rate 26 H Blood Pressure 144/65 H Pulse Oximetry 93 L 99 07/15/18 00:00 07/15/18 02:00 07/15/18 04:00 Temperature 98.0 F 98.4 F Pulse Rate 131 H 116 H 100 H Respiratory Rate 35 H 37 H Blood Pressure 126/76 144/65 H Pulse Oximetry 98 96 07/15/18 06:00 Temperature Pulse Rate 104 H Respiratory Rate Blood Pressure Pulse Oximetry Intake & Output 07/14/18 07/15/18 07/15/18 18:59 06:59 18:59 Intake Total 395 / 395 100 / 100 Output Total 0 / 0 1000 / 1000 Balance 395 / 395 -900 / -900 Weight 55.6 kg Intake: IV 100 / 100 Rocephin Inj 1,000 MG In NS Inj 100 / 100 100 ML @ 200 mls/hr IV.SIG Q24H MONICA Rx#:[id number] Oral 0 / 0 0 / 0 Tube Feeding 195 / 195 0 / 0 Tube Irrigant 0 / 0 Water Bolus Amount 200 / 200 Other 0 / 0 Output: Urine 0 / 0 Stool 0 / 0 Urine Amount (Catheter) 1000 / 1000 Indwelling Urethral Catheter 1000 / 1000 Other: Date of Last Bowel Movement 07/10/18 07/10/18 # Bowel Movements 0 1 - Constitutional no acute distress (but restless.) - Routine Respiratory Exam Present: CTA bilaterally - Routine Cardiovascular Exam Present: RRR - Routine Abdominal Exam Present: soft - Routine Extremities Exam Comments: no pedal edema. - Routine Neurological Exam awake but restless. - Urinary Catheter Management Indwelling Urethral Catheter Cath placed during this visit: yes Urethral indwelling: Yes Reason for continuing: Acute urinary retention Insertion date: 06/20/18 Insertion time: 21:24 3-way Urethral Cath placed during this visit: yes Reason for continuing: Acute urinary retention Insertion date: 07/06/18 Insertion time: 18:00 Results - Labs CBC & Chem 7: 07/14/18 04:15 07/14/18 04:15 Laboratory Results - last 24 hr 07/14/18 07/14/18 07/14/18 04:15 09:09 09:11 WBC Differential Manual diff final Seg Neuts % (Manual) 45 Band Neuts % (Manual) 34 H Lymphocytes % (Manual) 14 Monocytes % (Manual) 5 Eosinophils % (Manual) 1 Basophils % (Manual) 1 Abs Neuts (Manual) 5.7 Toxic Granulation 2+ H Platelet Estimate Low L Platelet Morphology Normal POC Glucose 68 61 L 07/14/18 07/14/18 07/15/18 14:58 21:23 00:01 WBC Differential Seg Neuts % (Manual) Band Neuts % (Manual) Lymphocytes % (Manual) Monocytes % (Manual) Eosinophils % (Manual) Basophils % (Manual) Abs Neuts (Manual) Toxic Granulation Platelet Estimate Platelet Morphology POC Glucose 151 H 139 H 159 H 07/15/18 07/15/18 03:40 07:46 WBC Differential Seg Neuts % (Manual) Band Neuts % (Manual) Lymphocytes % (Manual) Monocytes % (Manual) Eosinophils % (Manual) Basophils % (Manual) Abs Neuts (Manual) Toxic Granulation Platelet Estimate Platelet Morphology POC Glucose 211 H 249 H Microbiology 07/13/18 09:53 Blood - Peripheral Aerobic Blood Culture - Preliminary No growth in 1 day 07/13/18 09:53 Blood - Peripheral Anaerobic Blood Culture - Preliminary No growth in 1 day - Procedures intubation/ cardiac cath. Assessment and Plan - Plan Resp failure- extubated 07/09 continue with neb treatment as needed. Acute decompensated CHF - systolic and diastolic EF 20% -appears euvolemic- s/p defibrillator placement continue BB and diuretic-no ENA due to FIDE- cardiology following. UTI with recurrent fever; continue IV Rocephin - blood cultures negative so far and pending. Staph aureus pneumonia -treated. Atrial fibrillation -rate controlled- continue BB Non-STEMI- -Cardiac cath per Dr. Noonan. Angiographically mild to moderate 3 -vessel coronary artery disease. EF 20%. continue aspirin, BB and statin. FIDE -creatinine normalizing, urine output remains adequate encephalopathy- evaluated by neurology. CT and EEG repeated; EEG with encephalopathy and CT brain with no acute intracranial abnormality. off Precedex drip since yesterday- continue Seroquel. neurology will follow peripherally. Dysphagia/ severe protein-calorie malnutrition NPO for now- ST following- after my d/w the and ; GI was consulted for PEG placement. NG tube was pulled out by the patient; will start on IV fluid. 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 Hypernatremia -resolved Thrombocytopenia -unchanged- will monitor. Adynamic ileus - ?Ogylvie -distention is improved Erectile Dysfunction PAD- continue aspirin and statin COPD- continue with neb treatment. pulmonary following. elevated LFT's- will monitor closely while on statin. -hyperglycemia; possible stress/ steroid -induced; A1c 5.5. hold levemir for now and continue with accu-check with SSI DVT prophylaxis with subq Lovenox palliative care following. will transfer to floor. Discharge Planning: is planning to take him back to [place]- [facility] transfer center yesterday; no ICU bed at this time and for the patient to be considered for transfer to floor, patient needs a minimum of six-hour stay on our Med-Surg. transfer center will be contacted and updated after he has been transferred to floor.
[2018-07-15] MEDS: LORazepam 0.5 MG Tablet PO SCH ×2 (09:32→20:50)
[2018-07-15] MEDS: Bisacodyl 10 MG Supp RECTAL SCH (09:32)
[2018-07-15] MEDS: Senna/Docusate Sodium 8.6/50 MG Tablet PO SCH ×2 (09:33→20:51)
[2018-07-15] MEDS: Sod Chloride 0.9% Inj 1,000 ML IV.CONT SCH ×2 (09:35→20:50)
[2018-07-15] MEDS: Enoxaparin Inj 40 MG/0.4 ML Syringe SQ SCH (09:36)
--- NOTE | 2018-07-15 12:05 | P.PNGI ---
Subjective Interval history: Awake and appeared comfortable, at bed side. Physical Exam Vital signs: Vital Signs 07/14/18 14:00 07/14/18 16:00 07/14/18 18:00 Temperature 98.8 F Pulse Rate 114 H 102 H 115 H Respiratory Rate Blood Pressure 138/65 Pulse Oximetry 102 H 07/14/18 20:00 07/14/18 22:00 07/14/18 22:04 Temperature 98.3 F Pulse Rate 116 H 123 H Respiratory Rate 26 H Blood Pressure 144/65 H Pulse Oximetry 93 L 99 07/15/18 00:00 07/15/18 02:00 07/15/18 04:00 Temperature 98.0 F 98.4 F Pulse Rate 131 H 116 H 100 H Respiratory Rate 35 H 37 H Blood Pressure 126/76 144/65 H Pulse Oximetry 98 96 07/15/18 06:00 07/15/18 08:00 07/15/18 10:00 Temperature Pulse Rate 104 H 100 H 101 H Respiratory Rate Blood Pressure Pulse Oximetry Intake & Output 07/14/18 07/15/18 07/15/18 18:59 06:59 18:59 Intake Total 395 / 395 100 / 100 Output Total 0 / 0 1000 / 1000 Balance 395 / 395 -900 / -900 Weight 55.6 kg Intake: IV 100 / 100 Rocephin Inj 1,000 MG In NS Inj 100 / 100 100 ML @ 200 mls/hr IV.SIG Q24H [facility] Rx#:[id number] Oral 0 / 0 0 / 0 Tube Feeding 195 / 195 0 / 0 Tube Irrigant 0 / 0 Water Bolus Amount 200 / 200 Other 0 / 0 Output: Urine 0 / 0 Stool 0 / 0 Urine Amount (Catheter) 1000 / 1000 Indwelling Urethral Catheter 1000 / 1000 Other: Date of Last Bowel Movement 07/10/18 07/10/18 07/10/18 # Bowel Movements 0 1 Narrative: GENERAL: NAD, A&Ox0 HEAD: Normocephalic. Looks euvolemic, NECK: Supple, trachea midline. No lymphadenopathy. EYES: No scleral icterus. No injection or drainage. CARDIOVASCULAR: Regular rate and rhythm without murmurs, gallops, or rubs. RESPIRATORY: Breath sounds equal bilaterally. No accessory muscle use. GASTROINTESTINAL: Abdomen soft, non-tender, nondistended. MUSCULOSKELETAL: No cyanosis, or edema. SKIN: Warm and dry. Neurology awake alert. Grimaces to tactile stimuli, NG tube in place. Not following mute. Positive blink to threat some tracking. Flexion localization of the upper extremity withdraws lower extremity reflexes depressed plantarflex response further sensory cerebellar gait testing limited secondary mental status. - Urinary Catheter Management Indwelling Urethral Catheter Cath placed during this visit: yes Urethral indwelling: Yes Reason for continuing: Acute urinary retention Insertion date: 06/20/18 Insertion time: 21:24 3-way Urethral Cath placed during this visit: yes Reason for continuing: Acute urinary retention Insertion date: 07/06/18 Insertion time: 18:00 Results - Labs CBC & Chem 7: 07/14/18 04:15 07/14/18 04:15 Laboratory Results - last 24 hr 07/14/18 07/14/18 07/15/18 14:58 21:23 00:01 POC Glucose 151 H 139 H 159 H 07/15/18 07/15/18 03:40 07:46 POC Glucose 211 H 249 H Microbiology 07/13/18 09:47 Blood - Peripheral Aerobic Blood Culture - Preliminary No growth in 1 day 07/13/18 09:47 Blood - Peripheral Anaerobic Blood Culture - Preliminary No growth in 1 day 07/13/18 09:53 Blood - Peripheral Aerobic Blood Culture - Preliminary No growth in 2 days 07/13/18 09:53 Blood - Peripheral Anaerobic Blood Culture - Preliminary No growth in 2 days 07/14/18 19:30 Clean Catch Urine Urine Culture - Preliminary gram negative rods - Procedures intubation/ cardiac cath. Assessment and Plan - Plan Dysphagia secondary to encephalopathy Pt admitted to ICU, was mechanically ventilated due to hypoxia, now on 2 L O2 via NC. He is encephalopathic and receiving TF through NG tube, Glucerna 1.5 at 55 mL/hr. Our service has been consulted for PEG tube placement. Family has not decided if they want to proceed with PEG tube, palliative care will be meeting with them this afternoon to further address goals of care - Thrombocytopenia noted- plts currently 57- hematology has seen pt, states that pt has known thrombocytopenia according to and that his platelets normally run around 60,000 and due to this no bone marrow biopsy was recommended Plan: EGD/ PEG Monday Consent to be obtained from , already discussed Monitor platelets NPO after midnight monday Further recommendations to follow
--- NOTE | 2018-07-15 12:13 | P.PNCA ---
Subjective Interval history: awake off sedation not following commands, in nad Physical Exam Vital signs: Vital Signs 07/14/18 14:00 07/14/18 16:00 07/14/18 18:00 Temperature 98.8 F Pulse Rate 114 H 102 H 115 H Respiratory Rate Blood Pressure 138/65 Pulse Oximetry 102 H 07/14/18 20:00 07/14/18 22:00 07/14/18 22:04 Temperature 98.3 F Pulse Rate 116 H 123 H Respiratory Rate 26 H Blood Pressure 144/65 H Pulse Oximetry 93 L 99 07/15/18 00:00 07/15/18 02:00 07/15/18 04:00 Temperature 98.0 F 98.4 F Pulse Rate 131 H 116 H 100 H Respiratory Rate 35 H 37 H Blood Pressure 126/76 144/65 H Pulse Oximetry 98 96 07/15/18 06:00 07/15/18 08:00 07/15/18 10:00 Temperature Pulse Rate 104 H 100 H 101 H Respiratory Rate Blood Pressure Pulse Oximetry Intake & Output 07/14/18 07/15/18 07/15/18 18:59 06:59 18:59 Intake Total 395 / 395 100 / 100 Output Total 0 / 0 1000 / 1000 Balance 395 / 395 -900 / -900 Weight 55.6 kg Intake: IV 100 / 100 Rocephin Inj 1,000 MG In NS Inj 100 / 100 100 ML @ 200 mls/hr IV.SIG Q24H [facility] Rx#:[id number] Oral 0 / 0 0 / 0 Tube Feeding 195 / 195 0 / 0 Tube Irrigant 0 / 0 Water Bolus Amount 200 / 200 Other 0 / 0 Output: Urine 0 / 0 Stool 0 / 0 Urine Amount (Catheter) 1000 / 1000 Indwelling Urethral Catheter 1000 / 1000 Other: Date of Last Bowel Movement 07/10/18 07/10/18 07/10/18 # Bowel Movements 0 1 - Urinary Catheter Management Indwelling Urethral Catheter Cath placed during this visit: yes Urethral indwelling: Yes Reason for continuing: Acute urinary retention Insertion date: 06/20/18 Insertion time: 21:24 3-way Urethral Cath placed during this visit: yes Reason for continuing: Acute urinary retention Insertion date: 07/06/18 Insertion time: 18:00 Assessment and Plan - Assessment (1) Cardiomyopathy Code(s): I42.9 - Cardiomyopathy, unspecified Status: Acute (2) Cardiomyopathy Code(s): I42.9 - Cardiomyopathy, unspecified Status: Acute (3) PVD (peripheral vascular disease) Code(s): I73.9 - Peripheral vascular disease, unspecified Status: Acute (4) PVD (peripheral vascular disease) Code(s): I73.9 - Peripheral vascular disease, unspecified Status: Acute (5) Tobacco abuse Code(s): Z72.0 - Tobacco use Status: Acute (6) Respiratory failure Code(s): J96.90 - Respiratory failure, unspecified, unspecified whether with hypoxia or hypercapnia Status: Acute (7) Non-ST elevated myocardial infarction (non-STEMI) Code(s): I21.4 - Non-ST elevation (NSTEMI) myocardial infarction Status: Acute (8) Pulmonary edema cardiac cause Code(s): I50.1 - Left ventricular failure, unspecified Status: Acute - Plan 1.) NICM - end stage, euvolemic, refuses in state transfer, requesting transfer to [facility], d/w Dr Solis; beta ana and hellen held due to hypotension, diuresing to optimize potential extubation, he has hypernatremia, continue lopressor, start lisinopril 2.5 mg qd 2.) CAD - nonobstructive, continue aspirin, pravachol 3.) Encephalopathy - moderate per EEG on sedation, neuro following 4.) d/w case with at the bedside 07/04/18 5.) Respiratory failure - he is euvolemic, appears to be due to pulmonary and/ or encephalopathic etilology, extubated 07/09/18 but restrained and not following commands, will follow trends in mental and respiratory status, d/w at the bedside 07/15/18, placement @ [facility] pending documented stabilization on sdu x 6 hours (2) Cardiomyopathy Qualifiers: Cardiomyopathy type: viral Qualified Code(s): B33.24 - Viral cardiomyopathy (6) Respiratory failure Qualifiers: Chronicity: acute Respiratory failure complication: hypoxia Qualified Code(s ): J96.01 - Acute respiratory failure with hypoxia
[2018-07-15] MEDS: Metoprolol Tartrate 25 MG Tablet PO SCH ×2 (12:33→20:51)
[2018-07-15] MEDS: Lisinopril 5 MG Tablet PO SCH (12:34)
[2018-07-15] MEDS: QUEtiapine 25 MG Tablet NG/OG SCH ×2 (12:34→16:48)
[2018-07-15 17:27] LABS: Baso % (Auto) 0.4 % (0.0-2.0); Eos % (Auto) 0.3 % (0.0-4.0); Hematocrit 36.8 % (39.0-51.0); Lymph # (Auto) 1.3 th/mm3 (1.0-4.8); Lymph % (Auto) 17.9 % (9.0-44.0); Mean Corpuscular HGB Conc 32.6 % (32.0-36.0); Mean Corpuscular Hemoglobin 30.6 pg (27.0-34.0); Mean Corpuscular Volume 93.9 fL (80.0-100.0); Mean Platelet Volume 10.8 fL (7.0-11.0); Mono # (Auto) 0.6 th/mm3 (0.0-0.9); Neut # (Auto) 5.2 th/mm3 (1.8-7.7); Neut % (Auto) 73.4 % (16.0-70.0); Platelet Count 93 th/mm3 (150-450); Red Blood Count 3.92 mil/mm3 (4.50-5.90); Red Cell Distribution Width 15.7 % (11.6-17.2)
[2018-07-15 17:42] LABS: Albumin 2.3 g/dL (3.4-5.0); Anion Gap 15 meq/L (5-15); Aspartate Aminotransferase 83 U/L (15-37); Blood Urea Nitrogen 32 mg/dL (7-18); Calcium 8.4 mg/dL (8.5-10.1); Carbon Dioxide 27.8 meq/L (21.0-32.0); Chloride 110 meq/L (98-107); Glomerular Filtration Rate 70 mL/min (>89); Glucose,Random 166 mg/dL (74-106); Potassium 3.3 meq/L (3.5-5.1); Sodium 153 meq/L (136-145)
[2018-07-15 17:51] LABS: Alanine Aminotransferase 116 U/L (12-78); Alkaline Phosphatase 221 U/L (45-117); Total Protein 7.3 g/dL (6.4-8.2)
[2018-07-15 17:58] LABS: Lymphocytes 14 % (9-44); Monocytes 3 % (0-8)
[2018-07-15 17:59] LABS: Platelet Morphology Normal (Normal); Toxic Granulation 1+
[2018-07-15 18:01] LABS: Ovalocytes 1+
[2018-07-15] MEDS: Brimonidine 0.15% Opth Drops 5 ML Bottle EACH EYE SCH ×2 (19:46→20:50)
[2018-07-15] MEDS: Hypromellose 0.3% Opth Gel 10 GM Bottle EACH EYE SCH ×2 (19:48→20:50)
[2018-07-15] MEDS ORDERED: Potassium Chlor 20 mEq Premix 20 MEQ/100 ML PIGGYBACK IV.SIG ONE (21:00)
[2018-07-16] MEDS: Insulin NovoLOG Aspart Correctional Sugar Inj SQ SCH ×6 (05:34→21:58)
[2018-07-16] MEDS: Sod Chloride 0.9% Inj 1,000 ML IV.CONT SCH (05:34)
[2018-07-16] MEDS: Baclofen 10 MG Tablet PO SCH ×3 (05:34→22:00)
[2018-07-16 07:36] LABS: Calcium 8.5 mg/dL (8.5-10.1); Carbon Dioxide 24.2 meq/L (21.0-32.0); Magnesium 2.2 mg/dL (1.5-2.5); Potassium 3.3 meq/L (3.5-5.1)
--- NOTE | 2018-07-16 08:15 | P.PNIM ---
Subjective Interval history: f/u; encephalopathy in no acute distress. still confused and at times restless. didn't let the NG tube to be replaced; reportedly didn't take part of his meds. afebrile. d/w the RN. Physical Exam Vital signs: Vital Signs 07/15/18 10:00 07/15/18 12:00 07/15/18 14:00 Temperature 97.5 F L Pulse Rate 101 H 108 H 107 H Respiratory Rate 25 H Blood Pressure 151/67 H Pulse Oximetry 96 07/15/18 16:00 07/15/18 18:00 07/15/18 20:00 Temperature 97.9 F 99.4 F Pulse Rate 110 H 109 H 108 H Respiratory Rate 23 33 H Blood Pressure 130/65 130/63 Pulse Oximetry 96 98 07/15/18 20:28 07/16/18 00:00 07/16/18 04:00 Temperature 99.1 F 98.8 F Pulse Rate 108 H 106 H Respiratory Rate 27 H 43 H Blood Pressure 137/71 138/79 Pulse Oximetry 96 99 93 L Intake & Output 07/15/18 07/16/18 07/16/18 18:59 06:59 18:59 Intake Total 0 / 0 2300 / 2300 Output Total 1350 / 1350 475 / 475 Balance -1350 / -1350 1825 / 1825 Weight 52.7 kg Intake: IV 2300 / 2300 NS Inj 1,000 ML @ 100 mls/hr IV 1999 / 1999 .CONT .Q10H [facility] Rx#:[id number] KCl 20 mEq Premix Inj 20 meq In 200 / 200 100 ml @ 50 mls/hr IV.SIG ONCE ONE Rx#:[id number] Rocephin Inj 1,000 MG In NS Inj 100 / 100 100 ML @ 200 mls/hr IV.SIG Q24H [facility] Rx#:[id number] Oral 0 / 0 0 / 0 Tube Feeding 0 / 0 0 / 0 Output: Urine 1350 / 1350 Urine Amount (Catheter) 475 / 475 Indwelling Urethral Catheter 475 / 475 Other: Date of Last Bowel Movement 07/15/18 07/10/18 # Bowel Movements 1 0 - Constitutional no acute distress - Routine Respiratory Exam Present: CTA bilaterally - Routine Cardiovascular Exam Present: RRR - Routine Abdominal Exam Present: soft - Routine Extremities Exam Comments: no pedal edema. - Routine Neurological Exam awake but confused. - Urinary Catheter Management Indwelling Urethral Catheter Cath placed during this visit: yes Urethral indwelling: Yes Reason for continuing: Acute urinary retention Insertion date: 06/20/18 Insertion time: 21:24 3-way Urethral Cath placed during this visit: yes Reason for continuing: Acute urinary retention Insertion date: 07/06/18 Insertion time: 18:00 Results - Labs CBC & Chem 7: 07/15/18 17:00 07/16/18 04:56 Laboratory Results - last 24 hr 07/15/18 07/15/18 07/15/18 13:24 17:00 17:00 WBC 7.0 RBC 3.92 L Hgb 12.0 L Hct 36.8 L MCV 93.9 MCH 30.6 MCHC 32.6 RDW 15.7 Plt Count 93 L D MPV 10.8 Prelim Diff (Auto) Slide review pending Neut % (Auto) 73.4 H Lymph % (Auto) 17.9 N[place]olls % (Auto) 8.0 Eos % (Auto) 0.3 Baso % (Auto) 0.4 Neut # (Auto) 5.2 Lymph # (Auto) 1.3 [place]olls # (Auto) 0.6 Eos # (Auto) 0.0 Baso # (Auto) 0.0 WBC Differential Manual diff final Seg Neuts % (Manual) 76 H Band Neuts % (Manual) 7 H Lymphocytes % (Manual) 14 Monocytes % (Manual) 3 Abs Neuts (Manual) 5.8 Differential Comment . Toxic Granulation 1+ H Platelet Estimate Low L Platelet Morphology Normal Ovalocytes 1+ H Sodium 153 H Potassium 3.3 L Chloride 110 H Carbon Dioxide 27.8 Anion Gap 15 BUN 32 H Creatinine 1.05 Estimated GFR 70 L POC Glucose 138 H Random Glucose 166 H Calcium 8.4 L Magnesium Total Bilirubin 0.9 AST 83 H ALT 116 H Alkaline Phosphatase 221 H Total Protein 7.3 D Albumin 2.3 L 07/15/18 07/15/18 07/16/18 19:35 23:46 04:21 WBC RBC Hgb Hct MCV MCH MCHC RDW Plt Count MPV Prelim Diff (Auto) Neut % (Auto) Lymph % (Auto) [place]olls % (Auto) Eos % (Auto) Baso % (Auto) Neut # (Auto) Lymph # (Auto) [place]olls # (Auto) Eos # (Auto) Baso # (Auto) WBC Differential Seg Neuts % (Manual) Band Neuts % (Manual) Lymphocytes % (Manual) Monocytes % (Manual) Abs Neuts (Manual) Differential Comment Toxic Granulation Platelet Estimate Platelet Morphology Ovalocytes Sodium Potassium Chloride Carbon Dioxide Anion Gap BUN Creatinine Estimated GFR POC Glucose 203 H 211 H 250 H Random Glucose Calcium Magnesium Total Bilirubin AST ALT Alkaline Phosphatase Total Protein Albumin 07/16/18 04:56 WBC RBC Hgb Hct MCV MCH MCHC RDW Plt Count MPV Prelim Diff (Auto) Neut % (Auto) Lymph % (Auto) [place]oll[place] % (Auto) Eos % (Auto) Baso % (Auto) Neut # (Auto) Lymph # (Auto) [place]olls # (Auto) Eos # (Auto) Baso # (Auto) WBC Differential Seg Neuts % (Manual) Band Neuts % (Manual) Lymphocytes % (Manual) Monocytes % (Manual) Abs Neuts (Manual) Differential Comment Toxic Granulation Platelet Estimate Platelet Morphology Ovalocytes Sodium 153 H Potassium 3.3 L Chloride 113 H Carbon Dioxide 24.2 Anion Gap 16 H BUN 39 H Creatinine 1.17 Estimated GFR 61 L POC Glucose Random Glucose 236 H Calcium 8.5 Magnesium 2.2 Total Bilirubin AST ALT Alkaline Phosphatase Total Protein Albumin Microbiology 07/13/18 09:47 Blood - Peripheral Aerobic Blood Culture - Preliminary No growth in 1 day 07/13/18 09:47 Blood - Peripheral Anaerobic Blood Culture - Preliminary No growth in 1 day 07/13/18 09:53 Blood - Peripheral Aerobic Blood Culture - Preliminary No growth in 2 days 07/13/18 09:53 Blood - Peripheral Anaerobic Blood Culture - Preliminary No growth in 2 days 07/14/18 19:30 Clean Catch Urine Urine Culture - Preliminary gram negative rods - Procedures intubation/ cardiac cath. Assessment and Plan - Plan Resp failure- extubated 07/09 continue with neb treatment as needed. Acute decompensated CHF - systolic and diastolic EF 20% -appears euvolemic- s/p defibrillator placement continue BB , ENA and diuretic- cardiology following. of note the patient didn't take part of his meds today. UTI with recurrent fever; continue IV Rocephin - blood cultures negative so far and UC pending. Staph aureus pneumonia -treated. Atrial fibrillation -rate fairly controlled- continue BB Non-STEMI- -Cardiac cath per Dr. Noonan. Angiographically mild to moderate 3 -vessel coronary artery disease. EF 20%. continue aspirin, BB and statin. FIDE -creatinine normalizing, urine output remains adequate encephalopathy- evaluated by neurology. CT and EEG repeated; EEG with encephalopathy and CT brain with no acute intracranial abnormality. off Precedex drip since two days ago - continue Seroquel. neurology will follow peripherally. Dysphagia/ severe protein-calorie malnutrition NPO for now- ST following- after my d/w the and ; GI was consulted for PEG placement. NG tube was pulled out by the patient; the patient didn't let the tube to be replaced and the wants to wait for PEG placement-will continue with IV fluid- PEG to be placed tomorrow per GI and d/w the yesterday- will resume tube feeding tomorrow after PEG placement. administrative associate following. Hypernatremia -will continue with IV fluid and monitor- cautious with IV hydration in light of cardiomyopathy. Thrombocytopenia -stable- will monitor. Adynamic ileus - ?Ogylvie -distention is improved Erectile Dysfunction PAD- continue aspirin and statin COPD- continue with neb treatment. pulmonary following. elevated LFT's- will monitor closely while on statin. -hyperglycemia; possible stress/ steroid -induced; A1c 5.5. hold levemir for now and continue with accu-check with SSI DVT prophylaxis with subq Lovenox palliative care following. for transfer to floor. Discharge Planning: is planning to take him back to [place]- [facility] transfer center on Monday; no ICU bed at this time and for the patient to be considered for transfer to floor, patient needs a minimum of six-hour stay on our Med-Surg. transfer center will be contacted and updated after he has been transferred to floor.
[2018-07-16] MEDS: Potassium Chloride Inj 20 MEQ in Sodium Chloride 0.45 % Inj 1,000 ML IV.CONT SCH ×2 (10:00→22:36)
[2018-07-16] MEDS: Brimonidine 0.15% Opth Drops 5 ML Bottle EACH EYE SCH ×2 (10:00→21:59)
[2018-07-16] MEDS: Hypromellose 0.3% Opth Gel 10 GM Bottle EACH EYE SCH ×2 (10:00→21:59)
--- NOTE | 2018-07-16 12:16 | P.PNCA ---
Subjective Interval history: has purposeful gestures today, reaches out to shake my hand and waves goodbye in nad Physical Exam Vital signs: Vital Signs 07/15/18 14:00 07/15/18 16:00 07/15/18 18:00 Temperature 97.9 F Pulse Rate 107 H 110 H 109 H Respiratory Rate 23 Blood Pressure 130/65 Pulse Oximetry 96 07/15/18 20:00 07/15/18 20:28 07/16/18 00:00 Temperature 99.4 F 99.1 F Pulse Rate 108 H 108 H Respiratory Rate 33 H 27 H Blood Pressure 130/63 137/71 Pulse Oximetry 98 96 99 07/16/18 04:00 07/16/18 08:00 Temperature 98.8 F 97.8 F Pulse Rate 106 H 106 H Respiratory Rate 43 H 27 H Blood Pressure 138/79 161/101 H Pulse Oximetry 93 L 99 Intake & Output 07/15/18 07/16/18 07/16/18 18:59 06:59 18:59 Intake Total 0 / 0 2300 / 2300 Output Total 1350 / 1350 475 / 475 Balance -1350 / -1350 1825 / 1825 Weight 52.7 kg Intake: IV 2300 / 2300 NS Inj 1,000 ML @ 100 mls/hr IV 1999 / 1999 .CONT .Q10H [facility] Rx#:[id number] KCl 20 mEq Premix Inj 20 meq In 200 / 200 100 ml @ 50 mls/hr IV.SIG ONCE ONE Rx#:[id number] Rocephin Inj 1,000 MG In NS Inj 100 / 100 100 ML @ 200 mls/hr IV.SIG Q24H [facility] Rx#:[id number] Oral 0 / 0 0 / 0 Tube Feeding 0 / 0 0 / 0 Output: Urine 1350 / 1350 Urine Amount (Catheter) 475 / 475 Indwelling Urethral Catheter 475 / 475 Other: Date of Last Bowel Movement 07/15/18 07/10/18 # Bowel Movements 1 0 - Urinary Catheter Management Indwelling Urethral Catheter Cath placed during this visit: yes Urethral indwelling: Yes Reason for continuing: Acute urinary retention Insertion date: 06/20/18 Insertion time: 21:24 3-way Urethral Cath placed during this visit: yes Reason for continuing: Acute urinary retention Insertion date: 07/06/18 Insertion time: 18:00 Assessment and Plan - Assessment (1) Cardiomyopathy Code(s): I42.9 - Cardiomyopathy, unspecified Status: Acute (2) Cardiomyopathy Code(s): I42.9 - Cardiomyopathy, unspecified Status: Acute (3) PVD (peripheral vascular disease) Code(s): I73.9 - Peripheral vascular disease, unspecified Status: Acute (4) PVD (peripheral vascular disease) Code(s): I73.9 - Peripheral vascular disease, unspecified Status: Acute (5) Tobacco abuse Code(s): Z72.0 - Tobacco use Status: Acute (6) Respiratory failure Code(s): J96.90 - Respiratory failure, unspecified, unspecified whether with hypoxia or hypercapnia Status: Acute (7) Non-ST elevated myocardial infarction (non-STEMI) Code(s): I21.4 - Non-ST elevation (NSTEMI) myocardial infarction Status: Acute (8) Pulmonary edema cardiac cause Code(s): I50.1 - Left ventricular failure, unspecified Status: Acute - Plan 1.) NICM - end stage, euvolemic, refuses in state transfer, requesting transfer to [facility], d/w Dr Solis; beta ana and hellen held due to hypotension, diuresing to optimize potential extubation, he has hypernatremia, dc lopressor, start coreg 6.25 bmg bid and aldactone 25 mg po bid, continue lisinopril 2.5 mg qd, f/u bmp, bnp in am 2.) CAD - nonobstructive, continue aspirin, pravachol 3.) Encephalopathy - moderate per EEG on sedation, neuro following, has purposeful behavior beginning 07/16/18, still confused 4.) d/w case with at the bedside 07/04/18 5.) Respiratory failure - he is euvolemic, appears to be due to pulmonary and/ or encephalopathic etilology, extubated 07/09/18 but restrained and not following commands, will follow trends in mental and respiratory status, d/w at the bedside 07/16/18, placement @ [facility] pending documented stabilization on sdu x 6 hours (2) Cardiomyopathy Qualifiers: Cardiomyopathy type: viral Qualified Code(s): B33.24 - Viral cardiomyopathy (6) Respiratory failure Qualifiers: Chronicity: acute Respiratory failure complication: hypoxia Qualified Code(s ): J96.01 - Acute respiratory failure with hypoxia
--- NOTE | 2018-07-16 13:17 | P.PNPAL ---
Reason for Visit Reason for visit: a. To assist with evaluation and management of symptoms including: encephalopathy,dyspnea, pain, agitation. b. To assist medical decision maker(s ) with: better understanding of current medical conditions; weighing benefits/ burdens of medical treatment options; making medical treatment decisions. Subjective Subjective/Interval History: Pt in bed, appears comfortable. and RN at bedside. He is mildly restless but overall improved from last week. Off precedex. Now has PO and IV ativan PRN. NO sign pain. pt had episode dyspnea early this morning. He became tachypneic with RR 44, sat dropped to 93. He was given o2 via NC but became agitated, did not want his nose touched. NC placed near pts mouth and dyspnea improved. Pt removed NGT over weekend. Scheduled for PEG tube placement tomorrow. Abd nondistended. Pt possibly to be transferred off unit.. When he has been off unit for 6 hours he could be accepted at [facility]. Urine + gram neg rods. Family/Friend Interactions: Spoke with at bedside. Goals aggressive- optimize pt to be able to transport to [place]. Coordination of transfer in progress. Initial contact with admin at [facility] re transfer was discouraging. She has contact in neurology department who may be able to facilitate. called me at 1700, said she's been trying too much to do things for other family members and feels maybe pt needs more time here to get better. She is considering staying for few weeks or month, ke if it avoids needing to do med flight. Advance Directives Living Will: Never completed Health Care Surrogate: Never completed Durable Power of Senior Sales Compensation Analyst: Never completed Objective Vital Signs: Vital Signs 07/15/18 14:00 07/15/18 16:00 07/15/18 18:00 Temperature 97.9 F Pulse Rate 107 H 110 H 109 H Respiratory Rate 23 Blood Pressure 130/65 Pulse Oximetry 96 07/15/18 20:00 07/15/18 20:28 07/16/18 00:00 Temperature 99.4 F 99.1 F Pulse Rate 108 H 108 H Respiratory Rate 33 H 27 H Blood Pressure 130/63 137/71 Pulse Oximetry 98 96 99 07/16/18 04:00 07/16/18 08:00 07/16/18 12:34 Temperature 98.8 F 97.8 F Pulse Rate 106 H 106 H Respiratory Rate 43 H 27 H Blood Pressure 138/79 161/101 H Pulse Oximetry 93 L 99 98 Intake & Output 07/15/18 07/16/18 07/16/18 18:59 06:59 18:59 Intake Total 0 / 0 2300 / 2300 Output Total 1350 / 1350 475 / 475 Balance -1350 / -1350 1825 / 1825 Weight 52.7 kg Intake: IV 2300 / 2300 NS Inj 1,000 ML @ 100 mls/hr IV 1999 / 1999 .CONT .Q10H [facility] Rx#:[id number] KCl 20 mEq Premix Inj 20 meq In 200 / 200 100 ml @ 50 mls/hr IV.SIG ONCE ONE Rx#:[id number] Rocephin Inj 1,000 MG In NS Inj 100 / 100 100 ML @ 200 mls/hr IV.SIG Q24H [facility] Rx#:[id number] Oral 0 / 0 0 / 0 Tube Feeding 0 / 0 0 / 0 Output: Urine 1350 / 1350 Urine Amount (Catheter) 475 / 475 Indwelling Urethral Catheter 475 / 475 Other: Date of Last Bowel Movement 07/15/18 07/10/18 # Bowel Movements 1 0 Physical Exam: SKIN: No jaundice, rashes, or lesions. Wound on backside, not visualized today. Skin temperature appropriate. Not diaphoretic. EYES: No scleral icterus. No injection or drainage. Fundi not examined. ENT: Nose without bleeding or purulent drainage. CARDIOVASCULAR: irregular, + murmur. PVCs on monitor RESPIRATORY/CHEST: Symmetric, unlabored respirations. CTA GASTROINTESTINAL: ABD soft, nontender, mildly distended, BS + GENITOURINARY: Without palpable bladder distension. Nevarez catheter in place. MUSCULOSKELETAL: Extremities without clubbing, cyanosis, or edema. No mottling or clubbing. NEUROLOGICAL: mild restlessness. PSYCHIATRIC: restless Diagnostic Tests Laboratory: Laboratory Results - last 72 hr 07/13/18 07/13/18 07/13/18 14:30 16:07 21:20 WBC RBC Hgb Hct MCV MCH MCHC RDW Plt Count MPV Prelim Diff (Auto) Neut % (Auto) Lymph % (Auto) Pender % (Auto) Eos % (Auto) Baso % (Auto) Neut # (Auto) Lymph # (Auto) Pender # (Auto) Eos # (Auto) Baso # (Auto) WBC Differential Seg Neuts % (Manual) Band Neuts % (Manual) Lymphocytes % (Manual) Monocytes % (Manual) Eosinophils % (Manual) Basophils % (Manual) Abs Neuts (Manual) Differential Comment Toxic Granulation Platelet Estimate Platelet Morphology Ovalocytes Sodium Potassium Chloride Carbon Dioxide Anion Gap BUN Creatinine Estimated GFR POC Glucose 236 H 239 H Random Glucose Calcium Phosphorus Magnesium Total Bilirubin AST ALT Alkaline Phosphatase Total Protein Albumin Urine Color Yellow Urine Clarity Hazy H Urine pH 8.0 Ur Specific [place] 1.010 Urine Protein 30 H Urine Glucose (UA) Negative Urine Ketones Negative Urine Occult Blood Small H Urine Nitrate Positive H Urine Bilirubin Negative Urine Urobilinogen 4 or greater Ur Leukocyte Esterase Small H Urine RBC Less than 1 Urine WBC 12 H Urine Bacteria Occasional H Granular Casts 3 Ur Microscopic Review Not Reportable 07/14/18 07/14/18 07/14/18 00:05 04:14 04:15 WBC 7.2 RBC 3.61 L Hgb 11.3 L Hct 34.2 L MCV 94.7 MCH 31.2 MCHC 32.9 RDW 15.9 Plt Count 61 L MPV 11.1 H Prelim Diff (Auto) Slide review pending Neut % (Auto) 75.2 H Lymph % (Auto) 17.4 Pender % (Auto) 5.9 Eos % (Auto) 1.1 Baso % (Auto) 0.4 Neut # (Auto) 5.4 Lymph # (Auto) 1.3 Pender # (Auto) 0.4 Eos # (Auto) 0.1 Baso # (Auto) 0.0 WBC Differential Manual diff final Seg Neuts % (Manual) 45 Band Neuts % (Manual) 34 H Lymphocytes % (Manual) 14 Monocytes % (Manual) 5 Eosinophils % (Manual) 1 Basophils % (Manual) 1 Abs Neuts (Manual) 5.7 Differential Comment . Toxic Granulation 2+ H Platelet Estimate Low L Platelet Morphology Normal Ovalocytes Sodium Potassium Chloride Carbon Dioxide Anion Gap BUN Creatinine Estimated GFR POC Glucose 225 H 176 H Random Glucose Calcium Phosphorus Magnesium Total Bilirubin AST ALT Alkaline Phosphatase Total Protein Albumin Urine Color Urine Clarity Urine pH Ur Specific [place] Urine Protein Urine Glucose (UA) Urine Ketones Urine Occult Blood Urine Nitrate Urine Bilirubin Urine Urobilinogen Ur Leukocyte Esterase Urine RBC Urine WBC Urine Bacteria Granular Casts Ur Microscopic Review 07/14/18 07/14/18 07/14/18 04:15 09:09 09:11 WBC RBC Hgb Hct MCV MCH MCHC RDW Plt Count MPV Prelim Diff (Auto) Neut % (Auto) Lymph % (Auto) Pender % (Auto) Eos % (Auto) Baso % (Auto) Neut # (Auto) Lymph # (Auto) Pender # (Auto) Eos # (Auto) Baso # (Auto) WBC Differential Seg Neuts % (Manual) Band Neuts % (Manual) Lymphocytes % (Manual) Monocytes % (Manual) Eosinophils % (Manual) Basophils % (Manual) Abs Neuts (Manual) Differential Comment Toxic Granulation Platelet Estimate Platelet Morphology Ovalocytes Sodium 145 Potassium 3.4 L Chloride 107 Carbon Dioxide 34.0 H Anion Gap 4 L BUN 30 H Creatinine 0.94 Estimated GFR 79 L POC Glucose 68 61 L Random Glucose 172 H D Calcium 8.3 L Phosphorus 3.0 Magnesium 2.1 Total Bilirubin 0.5 AST 50 H ALT 83 H Alkaline Phosphatase 138 H Total Protein 6.3 L Albumin 1.9 L Urine Color Urine Clarity Urine pH Ur Specific [place] Urine Protein Urine Glucose (UA) Urine Ketones Urine Occult Blood Urine Nitrate Urine Bilirubin Urine Urobilinogen Ur Leukocyte Esterase Urine RBC Urine WBC Urine Bacteria Granular Casts Ur Microscopic Review 07/14/18 07/14/18 07/15/18 14:58 21:23 00:01 WBC RBC Hgb Hct MCV MCH MCHC RDW Plt Count MPV Prelim Diff (Auto) Neut % (Auto) Lymph % (Auto) Pender % (Auto) Eos % (Auto) Baso % (Auto) Neut # (Auto) Lymph # (Auto) Pender # (Auto) Eos # (Auto) Baso # (Auto) WBC Differential Seg Neuts % (Manual) Band Neuts % (Manual) Lymphocytes % (Manual) Monocytes % (Manual) Eosinophils % (Manual) Basophils % (Manual) Abs Neuts (Manual) Differential Comment Toxic Granulation Platelet Estimate Platelet Morphology Ovalocytes Sodium Potassium Chloride Carbon Dioxide Anion Gap BUN Creatinine Estimated GFR POC Glucose 151 H 139 H 159 H Random Glucose Calcium Phosphorus Magnesium Total Bilirubin AST ALT Alkaline Phosphatase Total Protein Albumin Urine Color Urine Clarity Urine pH Ur Specific [place] Urine Protein Urine Glucose (UA) Urine Ketones Urine Occult Blood Urine Nitrate Urine Bilirubin Urine Urobilinogen Ur Leukocyte Esterase Urine RBC Urine WBC Urine Bacteria Granular Casts Ur Microscopic Review 07/15/18 07/15/18 07/15/18 03:40 07:46 13:24 WBC RBC Hgb Hct MCV MCH MCHC RDW Plt Count MPV Prelim Diff (Auto) Neut % (Auto) Lymph % (Auto) Pender % (Auto) Eos % (Auto) Baso % (Auto) Neut # (Auto) Lymph # (Auto) Pender # (Auto) Eos # (Auto) Baso # (Auto) WBC Differential Seg Neuts % (Manual) Band Neuts % (Manual) Lymphocytes % (Manual) Monocytes % (Manual) Eosinophils % (Manual) Basophils % (Manual) Abs Neuts (Manual) Differential Comment Toxic Granulation Platelet Estimate Platelet Morphology Ovalocytes Sodium Potassium Chloride Carbon Dioxide Anion Gap BUN Creatinine Estimated GFR POC Glucose 211 H 249 H 138 H Random Glucose Calcium Phosphorus Magnesium Total Bilirubin AST ALT Alkaline Phosphatase Total Protein Albumin Urine Color Urine Clarity Urine pH Ur Specific [place] Urine Protein Urine Glucose (UA) Urine Ketones Urine Occult Blood Urine Nitrate Urine Bilirubin Urine Urobilinogen Ur Leukocyte Esterase Urine RBC Urine WBC Urine Bacteria Granular Casts Ur Microscopic Review 07/15/18 07/15/18 07/15/18 17:00 17:00 19:35 WBC 7.0 RBC 3.92 L Hgb 12.0 L Hct 36.8 L MCV 93.9 MCH 30.6 MCHC 32.6 RDW 15.7 Plt Count 93 L D MPV 10.8 Prelim Diff (Auto) Slide review pending Neut % (Auto) 73.4 H Lymph % (Auto) 17.9 Pender % (Auto) 8.0 Eos % (Auto) 0.3 Baso % (Auto) 0.4 Neut # (Auto) 5.2 Lymph # (Auto) 1.3 Pender # (Auto) 0.6 Eos # (Auto) 0.0 Baso # (Auto) 0.0 WBC Differential Manual diff final Seg Neuts % (Manual) 76 H Band Neuts % (Manual) 7 H Lymphocytes % (Manual) 14 Monocytes % (Manual) 3 Eosinophils % (Manual) Basophils % (Manual) Abs Neuts (Manual) 5.8 Differential Comment . Toxic Granulation 1+ H Platelet Estimate Low L Platelet Morphology Normal Ovalocytes 1+ H Sodium 153 H Potassium 3.3 L Chloride 110 H Carbon Dioxide 27.8 Anion Gap 15 BUN 32 H Creatinine 1.05 Estimated GFR 70 L POC Glucose 203 H Random Glucose 166 H Calcium 8.4 L Phosphorus Magnesium Total Bilirubin 0.9 AST 83 H ALT 116 H Alkaline Phosphatase 221 H Total Protein 7.3 D Albumin 2.3 L Urine Color Urine Clarity Urine pH Ur Specific [place] Urine Protein Urine Glucose (UA) Urine Ketones Urine Occult Blood Urine Nitrate Urine Bilirubin Urine Urobilinogen Ur Leukocyte Esterase Urine RBC Urine WBC Urine Bacteria Granular Casts Ur Microscopic Review 07/15/18 07/16/18 07/16/18 23:46 04:21 04:56 WBC RBC Hgb Hct MCV MCH MCHC RDW Plt Count MPV Prelim Diff (Auto) Neut % (Auto) Lymph % (Auto) Pender % (Auto) Eos % (Auto) Baso % (Auto) Neut # (Auto) Lymph # (Auto) Pender # (Auto) Eos # (Auto) Baso # (Auto) WBC Differential Seg Neuts % (Manual) Band Neuts % (Manual) Lymphocytes % (Manual) Monocytes % (Manual) Eosinophils % (Manual) Basophils % (Manual) Abs Neuts (Manual) Differential Comment Toxic Granulation Platelet Estimate Platelet Morphology Ovalocytes Sodium 153 H Potassium 3.3 L Chloride 113 H Carbon Dioxide 24.2 Anion Gap 16 H BUN 39 H Creatinine 1.17 Estimated GFR 61 L POC Glucose 211 H 250 H Random Glucose 236 H Calcium 8.5 Phosphorus Magnesium 2.2 Total Bilirubin AST ALT Alkaline Phosphatase Total Protein Albumin Urine Color Urine Clarity Urine pH Ur Specific [place] Urine Protein Urine Glucose (UA) Urine Ketones Urine Occult Blood Urine Nitrate Urine Bilirubin Urine Urobilinogen Ur Leukocyte Esterase Urine RBC Urine WBC Urine Bacteria Granular Casts Ur Microscopic Review 07/16/18 07/16/18 08:44 12:01 WBC RBC Hgb Hct MCV MCH MCHC RDW Plt Count MPV Prelim Diff (Auto) Neut % (Auto) Lymph % (Auto) Pender % (Auto) Eos % (Auto) Baso % (Auto) Neut # (Auto) Lymph # (Auto) Pender # (Auto) Eos # (Auto) Baso # (Auto) WBC Differential Seg Neuts % (Manual) Band Neuts % (Manual) Lymphocytes % (Manual) Monocytes % (Manual) Eosinophils % (Manual) Basophils % (Manual) Abs Neuts (Manual) Differential Comment Toxic Granulation Platelet Estimate Platelet Morphology Ovalocytes Sodium Potassium Chloride Carbon Dioxide Anion Gap BUN Creatinine Estimated GFR POC Glucose 262 H 251 H Random Glucose Calcium Phosphorus Magnesium Total Bilirubin AST ALT Alkaline Phosphatase Total Protein Albumin Urine Color Urine Clarity Urine pH Ur Specific [place] Urine Protein Urine Glucose (UA) Urine Ketones Urine Occult Blood Urine Nitrate Urine Bilirubin Urine Urobilinogen Ur Leukocyte Esterase Urine RBC Urine WBC Urine Bacteria Granular Casts Ur Microscopic Review Result Diagrams: 07/17/18 04:58 07/17/18 04:58 Microbiology: Microbiology 07/14/18 19:30 Urine Culture - Preliminary Clean Catch Urine Pseudomonas aeruginosa 07/13/18 09:47 Aerobic Blood Culture - Preliminary Blood - Peripheral No growth in 2 days Anaerobic Blood Culture - Preliminary No growth in 2 days 07/13/18 09:53 Aerobic Blood Culture - Preliminary Blood - Peripheral No growth in 3 days Anaerobic Blood Culture - Preliminary No growth in 3 days Imaging: ITS Impressions Abdomen/Bladder Ultrasound 06/21/18 00:00 CONCLUSION: 1. Increased echogenicity of both kidneys typical of chronic parenchymal disease. 2. No evidence of acute obstructive uropathy. 3. Bilateral benign appearing renal cysts. Abdomen/Pelvis CT 07/04/18 00:00 CONCLUSION: The bulging in the right lower quadrant is related to distention of the cecum. Abdomen X-Ray 07/10/18 08:00 CONCLUSION: No evidence of obstruction. Chest X-Ray 07/12/18 00:00 CONCLUSION: 1. Persistent mild patchy bibasilar airspace disease, likely atelectasis. 2. No significant interval change following expiration. Head CT 07/12/18 00:00 CONCLUSION: 1. No acute intracranial abnormality. 2. Atrophy. 3. Increased density seen throughout the mastoid air cells and middle ear regions. . Procedures: 06/23 reintubated 06/26 heart cath 07/09 extubated Assessment and Plan - Disease Oriented Problem List (1) Respiratory failure (2) Non-ST elevated myocardial infarction (non-STEMI) (3) Cardiomyopathy (4) PVD (peripheral vascular disease) (5) Tobacco abuse (6) Constipation Pertinent Non-Medical Issues: Psychosocial: Pt originally from [place]. with 4 kids. 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 Spiritual: hindu. decline fine wire drawer visit. Legal: Per [place] statute is proxy decision maker. Ethical issues impacting care: none Important Contacts: Kristine Avila, - [phone] Prognosis: This is a 72-year-old male with history CHF, COPD, tobacco abuse, diabetes who presented 06[place]20 [place] has a defibrillator implanted. His baseline ejection fraction is 25% and he is now at less than 20%. Patient reintubated 06/23, extubated . Now with encephalopathy. Had cardiac cath 06/26 with finding 3 vessel CAD, non ischemic dilated cardiomyopathy. He is at high risk for continued complications and decline. Code Status: Full Code Plan: - LEGAL DECISON MAKER -No written advanced directives. Patient is not capacitated to make medical decisions, uncertain if he will regain capacity. Per [place] statutes, health care proxy decision making falls to his . - FULL CODE - GOALS - Spoke with at bedside. Goals aggressive- optimize pt to be able to transport to [place]. Coordination of transfer in progress. Initial contact with admin at [facility] re transfer was discouraging. She has contact in neurology department who may be able to facilitate. called me at 1700, said she's been trying too much to do things for other family members and feels maybe pt needs more time here to get better. She is considering staying for few weeks or month, ke if it avoids needing to do med flight. - SYMPTOMS - * pain - multifactorial- prolonged bedbound status, mult tubes and lines, had ileus, now with DTI sacrum. chest pain prior to admission. ileus is improved. Has PRN Tylenol ordered, no pain recommendations at this time. * constipation - tolerating TF. abd soft and nontender, non distended today. BS +. pulled out NGT. for PEG tube tomorrow. has bowel regimen but not getting today since he removed his NGT. * dyspnea -reintubated 06/23. extubated 07/09. Recent N STEMI. EF < 20% . s/p cardiac cath 06/26 findings 3 vessel CAD, nonischemic dilated cardiomyopathy. pulmonology consulted for significant COPD. CV surgery consulted, not candidate at this time. pt extubated 07/09. this am episode dyspnea, resolved. Not on oxygen currently, sat 98, RR 27. scheduled DuoNeb's * agitation - multifactorial. encephalopathy. extubated, still with agitation and not sleeping for days. today he is mildly restless but less than last week , precedex off. nonverbal. neuro following, EEG revealed generalized encephalopathy, CT no acute intracranial changes. Uncertain if encephalopathy will improve. has PO and IV ativan PRN. - d/w RN - Palliative care will continue to follow during hospital course as condition evolves, to assist patient/decision-maker with understanding of medical conditions, weighing benefits/burdens of treatment options, for clarification of goals of treatment. Additionally will assist with any symptoms of palliative concern Attestation Attestation: To help prompt me to consider important information that might be impacting today's encounter and assessment, information from prior notes written by myself or my colleagues may have been "brought forward" into today's note. My signature on this note, however, is an attestation that I personally performed the exam, history, and/or decision-making noted today, and, unless otherwise indicated, the interactions with patient, family, and staff as well as the review of records all occurred today. I also attest that the listed assessment and stated plan reflect my best clinical judgment today based on the combination of historical information, prior notes, and today's exam/ interactions. When time spent is documented, it refers only to time spent today by the signer, or if indicated, combined time spent today by collaborating physician/nurse practitioner.
[2018-07-16] MEDS: LORazepam 0.5 MG Tablet PO SCH ×2 (19:33→21:59)
[2018-07-16] MEDS: Bisacodyl 10 MG Supp RECTAL SCH (19:33)
[2018-07-16] MEDS: QUEtiapine 25 MG Tablet NG/OG SCH ×2 (19:34→22:16)
[2018-07-16] MEDS: Lisinopril 5 MG Tablet PO SCH (19:34)
[2018-07-16] MEDS: Senna/Docusate Sodium 8.6/50 MG Tablet PO SCH ×2 (19:34→22:00)
[2018-07-16] MEDS: Enoxaparin Inj 40 MG/0.4 ML Syringe SQ SCH (19:34)
[2018-07-16] MEDS: Spironolactone 25 MG Tablet PO SCH (19:36)
[2018-07-16] MEDS: Carvedilol 6.25 MG Tablet PO SCH (21:59)
[2018-07-17] MEDS: Insulin NovoLOG Aspart Correctional Sugar Inj SQ SCH ×5 (00:23→19:51)
--- NOTE | 2018-07-17 05:30 | P.PNCA ---
Subjective Interval history: alert in nad Physical Exam Vital signs: Vital Signs 07/16/18 08:00 07/16/18 12:00 07/16/18 12:34 Temperature 97.8 F 97.9 F Pulse Rate 106 H 101 H Respiratory Rate 27 H 21 Blood Pressure 161/101 H 150/90 H Pulse Oximetry 99 98 98 07/16/18 16:00 07/16/18 20:00 07/16/18 20:15 Temperature 98 F 97.7 F Pulse Rate 122 H 96 H Respiratory Rate 23 21 Blood Pressure 155/74 H 134/78 Pulse Oximetry 94 L 97 96 07/17/18 00:00 Temperature 97.6 F Pulse Rate 90 Respiratory Rate 20 Blood Pressure 148/72 H Pulse Oximetry 98 Intake & Output 07/16/18 07/16/18 07/17/18 06:59 18:59 06:59 Intake Total 2300 / 2300 1010 / 1010 Output Total 475 / 475 200 / 200 Balance 1825 / 1825 -200 / -200 1010 / 1010 Weight 52.7 kg Intake: IV 2300 / 2300 1010 / 1010 KCl Inj 20 MEQ In 1/2 Normal 1010 / 1010 Saline Inj 1,000 ML @ 84 mls/hr IV.CONT .Q12[facility] Rx#: [id number] NS Inj 1,000 ML @ 100 mls/hr IV 1999 / 1999 .CONT .Q10H [facility] Rx#:[id number] KCl 20 mEq Premix Inj 20 meq In 200 / 200 100 ml @ 50 mls/hr IV.SIG ONCE ONE Rx#:[id number] Rocephin Inj 1,000 MG In NS Inj 100 / 100 100 ML @ 200 mls/hr IV.SIG Q24H [facility] Rx#:[id number] Oral 0 / 0 Tube Feeding 0 / 0 Output: Urine 200 / 200 Urine Amount (Catheter) 475 / 475 Indwelling Urethral Catheter 475 / 475 Other: Date of Last Bowel Movement 07/10/18 # Bowel Movements 0 - Urinary Catheter Management Indwelling Urethral Catheter Cath placed during this visit: yes Urethral indwelling: Yes Reason for continuing: Acute urinary retention Insertion date: 06/20/18 Insertion time: 21:24 3-way Urethral Cath placed during this visit: yes Reason for continuing: Acute urinary retention Insertion date: 07/06/18 Insertion time: 18:00 Assessment and Plan - Assessment (1) Cardiomyopathy Code(s): I42.9 - Cardiomyopathy, unspecified Status: Acute (2) Cardiomyopathy Code(s): I42.9 - Cardiomyopathy, unspecified Status: Acute (3) PVD (peripheral vascular disease) Code(s): I73.9 - Peripheral vascular disease, unspecified Status: Acute (4) PVD (peripheral vascular disease) Code(s): I73.9 - Peripheral vascular disease, unspecified Status: Acute (5) Tobacco abuse Code(s): Z72.0 - Tobacco use Status: Acute (6) Respiratory failure Code(s): J96.90 - Respiratory failure, unspecified, unspecified whether with hypoxia or hypercapnia Status: Acute (7) Non-ST elevated myocardial infarction (non-STEMI) Code(s): I21.4 - Non-ST elevation (NSTEMI) myocardial infarction Status: Acute (8) Pulmonary edema cardiac cause Code(s): I50.1 - Left ventricular failure, unspecified Status: Acute - Plan 1.) NICM - end stage, euvolemic, refuses in state transfer, requesting transfer to [facility], d/w Dr Solis; beta ana and hellen held due to hypotension, diuresing to optimize potential extubation, he has hypernatremia, dc lopressor, start coreg 6.25 bmg bid and aldactone 25 mg po bid, continue lisinopril 2.5 mg qd, f/u bmp, bnp in am 2.) CAD - nonobstructive, continue aspirin, pravachol 3.) Encephalopathy - moderate per EEG on sedation, neuro following, has purposeful behavior beginning 07/16/18, still confused 4.) d/w case with at the bedside 07/04/18 5.) Respiratory failure - he is euvolemic, appears to be due to pulmonary and/ or encephalopathic etilology, extubated 07/09/18 but restrained and not following commands, will follow trends in mental and respiratory status, d/w at the bedside 07/16/18, placement @ [facility] pending documented stabilization on sdu x 6 hours (2) Cardiomyopathy Qualifiers: Cardiomyopathy type: viral Qualified Code(s): B33.24 - Viral cardiomyopathy (6) Respiratory failure Qualifiers: Chronicity: acute Respiratory failure complication: hypoxia Qualified Code(s ): J96.01 - Acute respiratory failure with hypoxia
[2018-07-17 05:46] LABS: Baso % (Auto) 0.4 % (0.0-2.0); Eos % (Auto) 0.2 % (0.0-4.0); Hemoglobin 11.5 gm/dL (13.0-17.0); Lymph # (Auto) 0.9 th/mm3 (1.0-4.8); Lymph % (Auto) 20.2 % (9.0-44.0); Mean Corpuscular HGB Conc 32.1 % (32.0-36.0); Mean Corpuscular Hemoglobin 30.5 pg (27.0-34.0); Mean Corpuscular Volume 95.1 fL (80.0-100.0); Mean Platelet Volume 10.4 fL (7.0-11.0); Mono # (Auto) 0.3 th/mm3 (0.0-0.9); Mono % (Auto) 7.3 % (0.0-8.0); Neut # (Auto) 3.3 th/mm3 (1.8-7.7); Neut % (Auto) 71.9 % (16.0-70.0); Platelet Count 80 th/mm3 (150-450); Red Blood Count 3.78 mil/mm3 (4.50-5.90); Red Cell Distribution Width 15.8 % (11.6-17.2); White Blood Count 4.5 th/mm3 (4.0-11.0)
[2018-07-17] MEDS: Baclofen 10 MG Tablet PO SCH ×3 (06:11→21:39)
[2018-07-17 06:13] LABS: Calcium 8.4 mg/dL (8.5-10.1); Potassium 4.8 meq/L (3.5-5.1)
[2018-07-17 08:10] LABS: Lymphocytes 24 % (9-44); Monocytes 3 % (0-8); Ovalocytes 1+; Toxic Granulation 1+
[2018-07-17 08:11] LABS: Platelet Morphology Normal (Normal)
[2018-07-17] MEDS: Dextrose 5% in Water Inj 1,000 ML IV.CONT SCH ×2 (08:11→21:37)
--- NOTE | 2018-07-17 08:31 | P.PNIM ---
Subjective Interval history: f/u; encephalopathy in no acute distress. is a little more responsive today. not on restraints. no fever. awaiting PEG placement. d/w the and RN at the bedside. Physical Exam Vital signs: Vital Signs 07/16/18 12:00 07/16/18 12:34 07/16/18 16:00 Temperature 97.9 F 98 F Pulse Rate 101 H 122 H Respiratory Rate 21 23 Blood Pressure 150/90 H 155/74 H Pulse Oximetry 98 98 94 L 07/16/18 20:00 07/16/18 20:15 07/17/18 00:00 Temperature 97.7 F 97.6 F Pulse Rate 96 H 90 Respiratory Rate 21 20 Blood Pressure 134/78 148/72 H Pulse Oximetry 97 96 98 07/17/18 04:00 Temperature 97.9 F Pulse Rate 94 H Respiratory Rate 22 Blood Pressure 161/78 H Pulse Oximetry 98 Intake & Output 07/16/18 07/17/18 07/17/18 18:59 06:59 18:59 Intake Total 100 / 100 1010 / 1010 Output Total 200 / 200 0 / 0 Balance -100 / -100 1010 / 1010 Weight 55.8 kg Intake: IV 100 / 100 1010 / 1010 KCl Inj 20 MEQ In 1/2 Normal 1010 / 1010 Saline Inj 1,000 ML @ 84 mls/hr IV.CONT .Q12H2M [facility] Rx#: [id number] Rocephin Inj 1,000 MG In NS Inj 100 / 100 100 ML @ 200 mls/hr IV.SIG Q24H [facility] Rx#:[id number] Oral 0 / 0 Tube Feeding 0 / 0 Tube Irrigant 0 / 0 Water Bolus Amount 0 / 0 Other 0 / 0 Output: Urine 200 / 200 0 / 0 Stool 0 / 0 Urine Amount (Catheter) 0 / 0 Indwelling Urethral Catheter 0 / 0 Other: # Voids 3 Date of Last Bowel Movement 07/10/18 # Bowel Movements 0 - Constitutional no acute distress - Routine Respiratory Exam Present: CTA bilaterally - Routine Cardiovascular Exam Present: RRR - Routine Abdominal Exam Present: soft - Routine Extremities Exam Comments: no pedal edema. - Routine Neurological Exam awake- seems a little more responsive today. - Urinary Catheter Management Indwelling Urethral Catheter Cath placed during this visit: yes Urethral indwelling: Yes Reason for continuing: Acute urinary retention Insertion date: 06/20/18 Insertion time: 21:24 3-way Urethral Cath placed during this visit: yes Reason for continuing: Acute urinary retention Insertion date: 07/06/18 Insertion time: 18:00 Results - Labs CBC & Chem 7: 07/17/18 04:58 07/17/18 04:58 Laboratory Results - last 24 hr 07/16/18 07/16/18 07/16/18 08:44 12:01 17:24 WBC RBC Hgb Hct MCV MCH MCHC RDW Plt Count MPV Prelim Diff (Auto) Neut % (Auto) Lymph % (Auto) Hardy % (Auto) Eos % (Auto) Baso % (Auto) Neut # (Auto) Lymph # (Auto) Hardy # (Auto) Eos # (Auto) Baso # (Auto) WBC Differential Seg Neuts % (Manual) Band Neuts % (Manual) Lymphocytes % (Manual) Monocytes % (Manual) Abs Neuts (Manual) Differential Comment Toxic Granulation Platelet Estimate Platelet Morphology Ovalocytes Sodium Potassium Chloride Carbon Dioxide Anion Gap BUN Creatinine Estimated GFR POC Glucose 262 H 251 H 88 Random Glucose Calcium B-Natriuretic Peptide 07/16/18 07/17/18 07/17/18 21:54 00:12 04:18 WBC RBC Hgb Hct MCV MCH MCHC RDW Plt Count MPV Prelim Diff (Auto) Neut % (Auto) Lymph % (Auto) Hardy % (Auto) Eos % (Auto) Baso % (Auto) Neut # (Auto) Lymph # (Auto) Hardy # (Auto) Eos # (Auto) Baso # (Auto) WBC Differential Seg Neuts % (Manual) Band Neuts % (Manual) Lymphocytes % (Manual) Monocytes % (Manual) Abs Neuts (Manual) Differential Comment Toxic Granulation Platelet Estimate Platelet Morphology Ovalocytes Sodium Potassium Chloride Carbon Dioxide Anion Gap BUN Creatinine Estimated GFR POC Glucose 154 H 191 H 215 H Random Glucose Calcium B-Natriuretic Peptide 07/17/18 07/17/18 07/17/18 04:58 04:58 04:58 WBC 4.5 RBC 3.78 L Hgb 11.5 L Hct 36.0 L MCV 95.1 MCH 30.5 MCHC 32.1 RDW 15.8 Plt Count 80 L MPV 10.4 Prelim Diff (Auto) Slide review pending Neut % (Auto) 71.9 H Lymph % (Auto) 20.2 Hardy % (Auto) 7.3 Eos % (Auto) 0.2 Baso % (Auto) 0.4 Neut # (Auto) 3.3 Lymph # (Auto) 0.9 L Hardy # (Auto) 0.3 Eos # (Auto) 0.0 Baso # (Auto) 0.0 WBC Differential Manual diff final Seg Neuts % (Manual) 69 Band Neuts % (Manual) 4 Lymphocytes % (Manual) 24 Monocytes % (Manual) 3 Abs Neuts (Manual) 3.3 Differential Comment . Toxic Granulation 1+ H Platelet Estimate Low L Platelet Morphology Normal Ovalocytes 1+ H Sodium 159 H* Potassium 4.8 D Chloride 118 H Carbon Dioxide 29.0 Anion Gap 12 BUN 31 H Creatinine 0.98 Estimated GFR 75 L POC Glucose Random Glucose 216 H Calcium 8.4 L B-Natriuretic Peptide 755 H 07/17/18 08:10 WBC RBC Hgb Hct MCV MCH MCHC RDW Plt Count MPV Prelim Diff (Auto) Neut % (Auto) Lymph % (Auto) Hardy % (Auto) Eos % (Auto) Baso % (Auto) Neut # (Auto) Lymph # (Auto) Hardy # (Auto) Eos # (Auto) Baso # (Auto) WBC Differential Seg Neuts % (Manual) Band Neuts % (Manual) Lymphocytes % (Manual) Monocytes % (Manual) Abs Neuts (Manual) Differential Comment Toxic Granulation Platelet Estimate Platelet Morphology Ovalocytes Sodium Potassium Chloride Carbon Dioxide Anion Gap BUN Creatinine Estimated GFR POC Glucose 183 H Random Glucose Calcium B-Natriuretic Peptide Microbiology 07/14/18 19:30 Clean Catch Urine Urine Culture - Preliminary Pseudomonas aeruginosa 07/13/18 09:47 Blood - Peripheral Aerobic Blood Culture - Preliminary No growth in 2 days 07/13/18 09:47 Blood - Peripheral Anaerobic Blood Culture - Preliminary No growth in 2 days 07/13/18 09:53 Blood - Peripheral Aerobic Blood Culture - Preliminary No growth in 3 days 07/13/18 09:53 Blood - Peripheral Anaerobic Blood Culture - Preliminary No growth in 3 days - Procedures intubation/ cardiac cath. Assessment and Plan - Plan Resp failure- extubated 07/09 continue with neb treatment as needed. Acute decompensated CHF - systolic and diastolic EF 20% -appears euvolemic- s/p defibrillator placement continue BB , ENA and diuretic- cardiology following. of note the patient didn't take part of his meds today. UTI with recurrent fever; continue IV Rocephin - blood cultures negative so far and UC with pseudomonas- will change to po when PEG is in place. Staph aureus pneumonia -treated. Atrial fibrillation -rate fairly controlled- continue BB Non-STEMI- -Cardiac cath per Dr. Noonan. Angiographically mild to moderate 3 -vessel coronary artery disease. EF 20%. continue aspirin, BB and statin. FIDE -creatinine normalizing, urine output remains adequate encephalopathy- evaluated by neurology. CT and EEG repeated; EEG with encephalopathy and CT brain with no acute intracranial abnormality. off Precedex drip since three days ago - continue Seroquel. neurology will follow peripherally. Dysphagia/ severe protein-calorie malnutrition NPO for now- ST following- after my d/w the and ; GI was consulted for PEG placement. NG tube was pulled out by the patient; the patient didn't let the tube to be replaced and the wants to wait for PEG placement-will continue with IV fluid- PEG to be placed today - will resume tube feeding today after PEG placement. bed control specialist following. Hypernatremia -will continue with IV fluid and monitor- cautious with IV hydration in light of cardiomyopathy. expected to improve after tube feeding/water flushes has been started. Thrombocytopenia -stable- will monitor. Adynamic ileus - ?Ogylvie -distention is improved Erectile Dysfunction PAD- continue aspirin and statin COPD- continue with neb treatment. pulmonary following. elevated LFT's- will monitor closely while on statin. -hyperglycemia; possible stress/ steroid -induced; A1c 5.5. hold levemir for now and continue with accu-check with SSI DVT prophylaxis with subq Lovenox palliative care following. for transfer to floor. Discharge Planning: d/w the again today. she said that she would like to hold off on transfer for now and monitor his progress. awaiting PEG placement.
[2018-07-17] MEDS: Brimonidine 0.15% Opth Drops 5 ML Bottle EACH EYE SCH ×2 (09:00→21:38)
[2018-07-17] MEDS: Spironolactone 25 MG Tablet PO SCH ×2 (12:35→17:58)
[2018-07-17] MEDS: Carvedilol 6.25 MG Tablet PO SCH ×2 (12:35→21:39)
[2018-07-17] MEDS: LORazepam 0.5 MG Tablet PO SCH ×2 (12:35→21:39)
[2018-07-17] MEDS: Senna/Docusate Sodium 8.6/50 MG Tablet PO SCH ×2 (12:36→21:39)
[2018-07-17] MEDS: Lisinopril 5 MG Tablet PO SCH (12:36)
[2018-07-17] MEDS: Enoxaparin Inj 40 MG/0.4 ML Syringe SQ SCH (12:36)
[2018-07-17] MEDS: QUEtiapine 25 MG Tablet NG/OG SCH ×2 (12:37→15:44)
--- NOTE | 2018-07-17 14:20 | P.PNPAL ---
Reason for Visit Reason for visit: a. To assist with evaluation and management of symptoms including: encephalopathy,dyspnea, pain, agitation. b. To assist medical decision maker(s ) with: better understanding of current medical conditions; weighing benefits/ burdens of medical treatment options; making medical treatment decisions. Subjective Subjective/Interval History: Pt in bed, appears comfortable. and RN at bedside. He is about to go for PEG tube placement. Still with slight restless appearance but still calmer than last week. he does make eye contact and track. he followed commands for me today. Per RN less PVCs today. No sight dyspnea, has not needed o2. Still failing swallow eval. Family/Friend Interactions: Brief discussion with at bedside. She is going to wait a few days and monitor progress. Her goal is to bring him home "safely." She verbalizes understanding of risks of pending procedure for PEG tube placement. Advance Directives Living Will: Never completed Health Care Surrogate: Never completed Durable Power of Room Service Supervisor: Never completed Objective Vital Signs: Vital Signs 07/16/18 16:00 07/16/18 20:00 07/16/18 20:15 Temperature 98 F 97.7 F Pulse Rate 122 H 96 H Respiratory Rate 23 21 Blood Pressure 155/74 H 134/78 Pulse Oximetry 94 L 97 96 07/17/18 00:00 07/17/18 04:00 07/17/18 08:00 Temperature 97.6 F 97.9 F 97.8 F Pulse Rate 90 94 H 98 H Respiratory Rate 20 22 24 Blood Pressure 148/72 H 161/78 H 145/88 H Pulse Oximetry 98 98 98 07/17/18 08:40 07/17/18 12:00 Temperature 97.7 F Pulse Rate 97 H Respiratory Rate 24 Blood Pressure 151/57 H Pulse Oximetry 99 98 Intake & Output 07/16/18 07/17/18 07/17/18 18:59 06:59 18:59 Intake Total 100 / 100 1010 / 1010 Output Total 200 / 200 0 / 0 Balance -100 / -100 1010 / 1010 Weight 55.8 kg Intake: IV 100 / 100 1010 / 1010 KCl Inj 20 MEQ In 1/2 Normal 1010 / 1010 Saline Inj 1,000 ML @ 84 mls/hr IV.CONT .Q12H2M [facility] Rx#: [id number] Rocephin Inj 1,000 MG In NS Inj 100 / 100 100 ML @ 200 mls/hr IV.SIG Q24H [facility] Rx#:[id number] Oral 0 / 0 Tube Feeding 0 / 0 Tube Irrigant 0 / 0 Water Bolus Amount 0 / 0 Other 0 / 0 Output: Urine 200 / 200 0 / 0 Stool 0 / 0 Urine Amount (Catheter) 0 / 0 Indwelling Urethral Catheter 0 / 0 Other: # Voids 3 Date of Last Bowel Movement 07/10/18 # Bowel Movements 0 Physical Exam: SKIN: No jaundice, rashes, or lesions. Skin temperature appropriate. Not diaphoretic. EYES: No scleral icterus. No injection or drainage. Fundi not examined. ENT: Nose without bleeding or purulent drainage. CARDIOVASCULAR: irregular, + murmur. RESPIRATORY/CHEST: Symmetric, unlabored respirations. CTA GASTROINTESTINAL: ABD soft, nontender, mildly distended, BS + GENITOURINARY: Without palpable bladder distension. Nevarez catheter in place. MUSCULOSKELETAL: Extremities without clubbing, cyanosis, or edema. No mottling or clubbing. NEUROLOGICAL: today follows commands. nonverbal. tracks. PSYCHIATRIC: mildly restless Diagnostic Tests Laboratory: Laboratory Results - last 72 hr 07/14/18 07/14/18 07/15/18 14:58 21:23 00:01 WBC RBC Hgb Hct MCV MCH MCHC RDW Plt Count MPV Prelim Diff (Auto) Neut % (Auto) Lymph % (Auto) Ness % (Auto) Eos % (Auto) Baso % (Auto) Neut # (Auto) Lymph # (Auto) Ness # (Auto) Eos # (Auto) Baso # (Auto) WBC Differential Seg Neuts % (Manual) Band Neuts % (Manual) Lymphocytes % (Manual) Monocytes % (Manual) Abs Neuts (Manual) Differential Comment Toxic Granulation Platelet Estimate Platelet Morphology Ovalocytes Sodium Potassium Chloride Carbon Dioxide Anion Gap BUN Creatinine Estimated GFR POC Glucose 151 H 139 H 159 H Random Glucose Calcium Magnesium Total Bilirubin AST ALT Alkaline Phosphatase B-Natriuretic Peptide Total Protein Albumin 07/15/18 07/15/18 07/15/18 03:40 07:46 13:24 WBC RBC Hgb Hct MCV MCH MCHC RDW Plt Count MPV Prelim Diff (Auto) Neut % (Auto) Lymph % (Auto) Ness % (Auto) Eos % (Auto) Baso % (Auto) Neut # (Auto) Lymph # (Auto) Ness # (Auto) Eos # (Auto) Baso # (Auto) WBC Differential Seg Neuts % (Manual) Band Neuts % (Manual) Lymphocytes % (Manual) Monocytes % (Manual) Abs Neuts (Manual) Differential Comment Toxic Granulation Platelet Estimate Platelet Morphology Ovalocytes Sodium Potassium Chloride Carbon Dioxide Anion Gap BUN Creatinine Estimated GFR POC Glucose 211 H 249 H 138 H Random Glucose Calcium Magnesium Total Bilirubin AST ALT Alkaline Phosphatase B-Natriuretic Peptide Total Protein Albumin 07/15/18 07/15/18 07/15/18 17:00 17:00 19:35 WBC 7.0 RBC 3.92 L Hgb 12.0 L Hct 36.8 L MCV 93.9 MCH 30.6 MCHC 32.6 RDW 15.7 Plt Count 93 L D MPV 10.8 Prelim Diff (Auto) Slide review pending Neut % (Auto) 73.4 H Lymph % (Auto) 17.9 Ness % (Auto) 8.0 Eos % (Auto) 0.3 Baso % (Auto) 0.4 Neut # (Auto) 5.2 Lymph # (Auto) 1.3 Ness # (Auto) 0.6 Eos # (Auto) 0.0 Baso # (Auto) 0.0 WBC Differential Manual diff final Seg Neuts % (Manual) 76 H Band Neuts % (Manual) 7 H Lymphocytes % (Manual) 14 Monocytes % (Manual) 3 Abs Neuts (Manual) 5.8 Differential Comment . Toxic Granulation 1+ H Platelet Estimate Low L Platelet Morphology Normal Ovalocytes 1+ H Sodium 153 H Potassium 3.3 L Chloride 110 H Carbon Dioxide 27.8 Anion Gap 15 BUN 32 H Creatinine 1.05 Estimated GFR 70 L POC Glucose 203 H Random Glucose 166 H Calcium 8.4 L Magnesium Total Bilirubin 0.9 AST 83 H ALT 116 H Alkaline Phosphatase 221 H B-Natriuretic Peptide Total Protein 7.3 D Albumin 2.3 L 07/15/18 07/16/18 07/16/18 23:46 04:21 04:56 WBC RBC Hgb Hct MCV MCH MCHC RDW Plt Count MPV Prelim Diff (Auto) Neut % (Auto) Lymph % (Auto) Ness % (Auto) Eos % (Auto) Baso % (Auto) Neut # (Auto) Lymph # (Auto) Ness # (Auto) Eos # (Auto) Baso # (Auto) WBC Differential Seg Neuts % (Manual) Band Neuts % (Manual) Lymphocytes % (Manual) Monocytes % (Manual) Abs Neuts (Manual) Differential Comment Toxic Granulation Platelet Estimate Platelet Morphology Ovalocytes Sodium 153 H Potassium 3.3 L Chloride 113 H Carbon Dioxide 24.2 Anion Gap 16 H BUN 39 H Creatinine 1.17 Estimated GFR 61 L POC Glucose 211 H 250 H Random Glucose 236 H Calcium 8.5 Magnesium 2.2 Total Bilirubin AST ALT Alkaline Phosphatase B-Natriuretic Peptide Total Protein Albumin 07/16/18 07/16/18 07/16/18 08:44 12:01 17:24 WBC RBC Hgb Hct MCV MCH MCHC RDW Plt Count MPV Prelim Diff (Auto) Neut % (Auto) Lymph % (Auto) Ness % (Auto) Eos % (Auto) Baso % (Auto) Neut # (Auto) Lymph # (Auto) Ness # (Auto) Eos # (Auto) Baso # (Auto) WBC Differential Seg Neuts % (Manual) Band Neuts % (Manual) Lymphocytes % (Manual) Monocytes % (Manual) Abs Neuts (Manual) Differential Comment Toxic Granulation Platelet Estimate Platelet Morphology Ovalocytes Sodium Potassium Chloride Carbon Dioxide Anion Gap BUN Creatinine Estimated GFR POC Glucose 262 H 251 H 88 Random Glucose Calcium Magnesium Total Bilirubin AST ALT Alkaline Phosphatase B-Natriuretic Peptide Total Protein Albumin 07/16/18 07/17/18 07/17/18 21:54 00:12 04:18 WBC RBC Hgb Hct MCV MCH MCHC RDW Plt Count MPV Prelim Diff (Auto) Neut % (Auto) Lymph % (Auto) Ness % (Auto) Eos % (Auto) Baso % (Auto) Neut # (Auto) Lymph # (Auto) Ness # (Auto) Eos # (Auto) Baso # (Auto) WBC Differential Seg Neuts % (Manual) Band Neuts % (Manual) Lymphocytes % (Manual) Monocytes % (Manual) Abs Neuts (Manual) Differential Comment Toxic Granulation Platelet Estimate Platelet Morphology Ovalocytes Sodium Potassium Chloride Carbon Dioxide Anion Gap BUN Creatinine Estimated GFR POC Glucose 154 H 191 H 215 H Random Glucose Calcium Magnesium Total Bilirubin AST ALT Alkaline Phosphatase B-Natriuretic Peptide Total Protein Albumin 07/17/18 07/17/18 07/17/18 04:58 04:58 04:58 WBC 4.5 RBC 3.78 L Hgb 11.5 L Hct 36.0 L MCV 95.1 MCH 30.5 MCHC 32.1 RDW 15.8 Plt Count 80 L MPV 10.4 Prelim Diff (Auto) Slide review pending Neut % (Auto) 71.9 H Lymph % (Auto) 20.2 Ness % (Auto) 7.3 Eos % (Auto) 0.2 Baso % (Auto) 0.4 Neut # (Auto) 3.3 Lymph # (Auto) 0.9 L Ness # (Auto) 0.3 Eos # (Auto) 0.0 Baso # (Auto) 0.0 WBC Differential Manual diff final Seg Neuts % (Manual) 69 Band Neuts % (Manual) 4 Lymphocytes % (Manual) 24 Monocytes % (Manual) 3 Abs Neuts (Manual) 3.3 Differential Comment . Toxic Granulation 1+ H Platelet Estimate Low L Platelet Morphology Normal Ovalocytes 1+ H Sodium 159 H* Potassium 4.8 D Chloride 118 H Carbon Dioxide 29.0 Anion Gap 12 BUN 31 H Creatinine 0.98 Estimated GFR 75 L POC Glucose Random Glucose 216 H Calcium 8.4 L Magnesium Total Bilirubin AST ALT Alkaline Phosphatase B-Natriuretic Peptide 755 H Total Protein Albumin 07/17/18 07/17/18 08:10 11:52 WBC RBC Hgb Hct MCV MCH MCHC RDW Plt Count MPV Prelim Diff (Auto) Neut % (Auto) Lymph % (Auto) Ness % (Auto) Eos % (Auto) Baso % (Auto) Neut # (Auto) Lymph # (Auto) Ness # (Auto) Eos # (Auto) Baso # (Auto) WBC Differential Seg Neuts % (Manual) Band Neuts % (Manual) Lymphocytes % (Manual) Monocytes % (Manual) Abs Neuts (Manual) Differential Comment Toxic Granulation Platelet Estimate Platelet Morphology Ovalocytes Sodium Potassium Chloride Carbon Dioxide Anion Gap BUN Creatinine Estimated GFR POC Glucose 183 H 189 H Random Glucose Calcium Magnesium Total Bilirubin AST ALT Alkaline Phosphatase B-Natriuretic Peptide Total Protein Albumin Result Diagrams: 07/17/18 04:58 07/17/18 04:58 Microbiology: Microbiology 07/13/18 09:47 Aerobic Blood Culture - Preliminary Blood - Peripheral No growth in 3 days Anaerobic Blood Culture - Preliminary No growth in 3 days 07/13/18 09:53 Aerobic Blood Culture - Preliminary Blood - Peripheral No growth in 4 days Anaerobic Blood Culture - Preliminary No growth in 4 days 07/14/18 19:30 Urine Culture - Final Clean Catch Urine Pseudomonas aeruginosa Procedures: 06/23 reintubated 06/26 heart cath 07/09 extubated Assessment and Plan - Disease Oriented Problem List (1) Respiratory failure (2) Non-ST elevated myocardial infarction (non-STEMI) (3) Cardiomyopathy (4) PVD (peripheral vascular disease) (5) Tobacco abuse (6) Constipation Pertinent Non-Medical Issues: Psychosocial: Pt originally from [place]. with 4 kids. 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 Spiritual: jainism. 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 Legal: Per [place] statute is proxy decision maker. Ethical issues impacting care: none Important Contacts: Kristine Avila, - [phone] Prognosis: This is a 72-year-old male with history CHF, COPD, tobacco abuse, diabetes who presented 06/20 [place] He has a defibrillator implanted. His baseline ejection fraction is 25% and he is now at less than 20%. Patient reintubated 06/23, extubated . Now with encephalopathy. Had cardiac cath 06/26 with finding 3 vessel CAD, non ischemic dilated cardiomyopathy. He is at high risk for continued complications and decline. Code Status: Full Code Plan: - LEGAL DECISON MAKER -No written advanced directives. Patient is not capacitated to make medical decisions, uncertain if he will regain capacity. Per [place] statutes, health care proxy decision making falls to his . - FULL CODE - GOALS - Fairly aggressive. Brief discussion with at bedside. She is going to wait a few days and monitor progress. Her goal is to bring him home "safely." She verbalizes understanding of risks of pending procedure for PEG tube placement. - SYMPTOMS - * pain - multifactorial- prolonged bedbound status, mult tubes and lines, had ileus, now with DTI sacrum. chest pain prior to admission. ileus is improved. Has PRN Tylenol ordered, no pain recommendations at this time. * constipation - improved. * dyspnea -reintubated 06/23. extubated 07/09. Recent N STEMI. EF < 20% . s/p cardiac cath 06/26 findings 3 vessel CAD, nonischemic dilated cardiomyopathy. pulmonology consulted for significant COPD. CV surgery consulted, not candidate at this time. pt extubated 07/09. Not on oxygen currently, sat 98 on room air. fewer PVCs today per RN. scheduled DuoNeb's * agitation - multifactorial. encephalopathy. extubated. today he is mildly restless but less than last week, precedex off. doesn't appear he has had ativan recently, pulled out NGT so not getting some meds. nonverbal. did follow some commands today. neuro following, EEG revealed generalized encephalopathy, CT no acute intracranial changes. Uncertain if encephalopathy will improve. has PO and IV ativan PRN. - d/w RN - Palliative care will continue to follow during hospital course as condition evolves, to assist patient/decision-maker with understanding of medical conditions, weighing benefits/burdens of treatment options, for clarification of goals of treatment. Additionally will assist with any symptoms of palliative concern Attestation Attestation: To help prompt me to consider important information that might be impacting today's encounter and assessment, information from prior notes written by myself or my colleagues may have been "brought forward" into today's note. My signature on this note, however, is an attestation that I personally performed the exam, history, and/or decision-making noted today, and, unless otherwise indicated, the interactions with patient, family, and staff as well as the review of records all occurred today. I also attest that the listed assessment and stated plan reflect my best clinical judgment today based on the combination of historical information, prior notes, and today's exam/ interactions. When time spent is documented, it refers only to time spent today by the signer, or if indicated, combined time spent today by collaborating physician/nurse practitioner.
[2018-07-17] MEDS: Bisacodyl 10 MG Supp RECTAL SCH (15:00)
[2018-07-17] MEDS: Hypromellose 0.3% Opth Gel 10 GM Bottle EACH EYE SCH ×2 (15:43→21:38)
--- NOTE | 2018-07-17 15:46 | GIPROC ---
[facility] [address] [facility]. [facility], [id number] EGD PROCEDURE REPORT EXAM DATE: 07/17/2018 PATIENT NAME: lA Avila MR #: [id number] BIRTHDATE: 1945 ATTENDING: Zarina Cook MD ORDER #: [id number] SAFETY INTERN: Mallika Castellano and Jordana Spain STATUS: inpatient INDICATIONS: The patient is a 73 yr old male here for an EGD due to PEG Replacement PROCEDURE PERFORMED: Panendoscopy with PEG MEDICATIONS: None and Per Anesthesia. TOPICAL ANESTHETIC: none CONSENT: The patient understands the risks and benefits of the procedure and understands that these risks include, but are not limited to: sedation, allergic reaction, infection, perforation and/or bleeding. Alternative means of evaluation and treatment include, among others: physical exam, x-rays, and/or surgical intervention. The patient elects to proceed with this endoscopic procedure. medical equipment was checked for proper function. Hand hygiene and appropriate measures for infection prevention was taken. After the risks, benefits and alternatives of the procedure were thoroughly explained, Informed consent was verified, confirmed and timeout was successfully executed by the treatment team. The patient was anesthetized with topical anesthesia and the Pentax EG-[id number] endoscope was introduced through the mouth and advanced to the second portion of the duodenum. Retroflexion was performed and was normal The gastroscope was then slowly withdrawn and removed. ESOPHAGUS: The mucosa of the esophagus appeared normal. STOMACH: The stomach otherwise appeared normal. DUODENUM: The duodenal mucosa appeared normal in the duodenal bulb and 2nd part duodenum. ADVERSE EVENTS: There were no complications. IMPRESSIONS: 1. The esophagus appeared normal 2. The stomach otherwise appeared normal 3. Normal duodenal mucosa in the duodenal bulb and 2nd part duodenum 4. Retroflexion was performed and was normal 5. 22F PEG tube placed successfully. RECOMMENDATIONS: PEG recomendations: 1- NPO for 6 hours except for meds 2- Flush PEG tube every 6 hours with water and after each PEG feeding 3- May resume regular diet in the morning 4- May use Ensure or Boost etc. for PEG tube feeding PATIENT CONDITION: stable DISPOSITION: Observation REPEAT EXAM: NONE Zarina Cook MD eSigned: Zarina Cook MD 07/17/2018 3:45 PM cc: PATIENT NAME: Al Avila MR#: [id number]
[2018-07-18] MEDS: Insulin NovoLOG Aspart Correctional Sugar Inj SQ SCH ×6 (01:29→22:55)
[2018-07-18] MEDS: Dextrose 5% in Water Inj 1,000 ML IV.CONT SCH ×3 (05:39→23:42)
[2018-07-18] MEDS: Baclofen 10 MG Tablet PO SCH ×3 (05:41→22:50)
[2018-07-18] MEDS: QUEtiapine 25 MG Tablet NG/OG SCH ×2 (09:30→18:15)
[2018-07-18] MEDS: Lisinopril 5 MG Tablet PO SCH (10:17)
[2018-07-18] MEDS: Carvedilol 6.25 MG Tablet PO SCH ×2 (10:17→22:50)
[2018-07-18] MEDS: LORazepam 0.5 MG Tablet PO SCH ×2 (10:18→22:50)
[2018-07-18] MEDS: Senna/Docusate Sodium 8.6/50 MG Tablet PO SCH ×2 (10:18→22:50)
[2018-07-18] MEDS: Bisacodyl 10 MG Supp RECTAL SCH (10:20)
[2018-07-18] MEDS: Enoxaparin Inj 40 MG/0.4 ML Syringe SQ SCH (10:21)
[2018-07-18] MEDS: Hypromellose 0.3% Opth Gel 10 GM Bottle EACH EYE SCH ×2 (10:21→22:46)
[2018-07-18] MEDS: Brimonidine 0.15% Opth Drops 5 ML Bottle EACH EYE SCH ×2 (10:21→22:46)
[2018-07-18] MEDS: Spironolactone 25 MG Tablet PO SCH ×2 (10:23→19:10)
[2018-07-18 12:29] LABS: Calcium 8.1 mg/dL (8.5-10.1); Carbon Dioxide 23.2 meq/L (21.0-32.0); Potassium 3.4 meq/L (3.5-5.1)
--- NOTE | 2018-07-18 13:44 | P.PNNEU ---
Subjective Subjective Comments: No acute events Active Medications: Active Medications Acetaminophen (Tylenol Liq) 650 mg NG/OG Q6H PRN PRN Reason: FEVER Last Admin: 07/13/18 21:33 Dose: 650 mg Al Hydroxide/Mg Hydroxide (Milk Of Magnesia Liq) 30 ml PO Q12H PRN PRN Reason: Mild Constipation Albuterol (Duoneb Neb (Prn)) 1 ampul NEB Q4HR NEB PRN PRN Reason: SHORTNESS OF BREATH/WHEEZING Last Admin: 07/14/18 00:23 Dose: 1 ampul Artificial Tears (Genteal Severe Dry Eye Relief 0.3% Opth Gel) 1 drops EACH EYE BID [facility] Last Admin: 07/18/18 10:21 Dose: 1 drops Aspirin (Aspirin Chew) 162 mg PO DAILY [facility] Last Admin: 07/18/18 10:18 Dose: 162 mg Baclofen (Lioresal) 10 mg PO Q8HR [facility] Last Admin: 07/18/18 05:41 Dose: 10 mg Bisacodyl (Dulcolax Supp) 10 mg RECTAL DAILY PRN PRN Reason: SEVERE CONSITIPATION Bisacodyl (Dulcolax Supp) 10 mg RECTAL DAILY [facility] Last Admin: 07/18/18 10:20 Dose: 10 mg Brimonidine Tartrate (Alphagan P 0.15% Opth Drops) 1 drops EACH EYE BID [facility] Last Admin: 07/18/18 10:21 Dose: 1 drops Carvedilol (Coreg) 6.25 mg PO BID [facility] Last Admin: 07/18/18 10:17 Dose: 6.25 mg Dextrose (D50w Vial) 50 ml IV.PUSH UNSCH PRN PRN Reason: PER HYPOGLYCEMIA PROTOCOL Last Admin: 07/12/18 04:25 Dose: 50 ml Enoxaparin Sodium (Lovenox Inj) 40 mg SQ DAILY [facility] Last Admin: 07/18/18 10:21 Dose: 40 mg Furosemide (Lasix Inj) 40 mg IV.PUSH DAILY@1400 [facility] Last Admin: 07/17/18 16:38 Dose: 40 mg Glucagon (Glucagon Inj) 1 mg OTHER PRN PRN PRN Reason: for Hypoglycemia Protocol Hydralazine HCl (Apresoline Inj) 10 mg IV.PUSH Q4H PRN PRN Reason: SBP>160, DBP>90 Magnesium Sulfate Inj 4 gm/ (Sodium Chloride) 100 mls @ 50 mls/hr IV.SIG UNSCH PRN PRN Reason: For Magnesium 0.9 - 1.1 mg/dL Magnesium Sulfate Inj 2 gm/ (Sodium Chloride) 100 mls @ 50 mls/hr IV.SIG UNSCH PRN PRN Reason: For Magnesium 1.2 - 1.6 mg/dL Potassium Chloride (Kcl 40 Meq Premix Inj) 40 meq in 100 mls @ 50 mls/hr IV.SIG Q2H PRN PRN Reason: For Potassium 2.8 - 3.2 mEq/L Potassium Chloride (Kcl 20 Meq Premix Inj) 20 meq in 100 mls @ 50 mls/hr IV.SIG Q2H PRN PRN Reason: For Potassium 3.3 - 3.5 mEq/L Last Infusion: 06/29/18 08:59 Dose: Infused Potassium Chloride (Kcl 20 Meq Premix Inj) 20 meq in 100 mls @ 50 mls/hr IV.SIG Q2H PRN PRN Reason: For Potassium 2.8 - 3.2 mEq/L Last Infusion: 07/16/18 06:05 Dose: Infused Potassium Phosphate 30 mmol/ (Sodium Chloride) 260 mls @ 42 mls/hr IV.SIG UNSCH PRN PRN Reason: SEE LABEL COMMENTS Last Infusion: 07/12/18 18:00 Dose: Infused Sodium Phosphate 30 mmol/ (Sodium Chloride) 260 mls @ 42 mls/hr IV.SIG UNSCH PRN PRN Reason: For Phosphorus < 2.5 mg/dL Potassium Chloride (Kcl 40 Meq Premix Inj) 40 meq in 100 mls @ 25 mls/hr IV.SIG UNSCH PRN PRN Reason: For Potassium 3.3 - 3.5 mEq/L Sodium Chloride (Ns Inj) 500 mls @ 0 mls/hr IV.SIG BOLUS [facility] Last Infusion: 07/10/18 17:28 Dose: Infused Ceftriaxone Sodium 1,000 mg/ (Sodium Chloride) 100 mls @ 200 mls/hr IV.SIG Q24H [facility] Last Admin: 07/18/18 10:19 Dose: 200 mls/hr Dextrose (D5w Inj) 1,000 mls @ 84 mls/hr IV.CONT .[id number] [facility] Last Admin: 07/18/18 05:39 Dose: Not Given Insulin Aspart (Novolog Insulin Correctional Sugar Inj) 0 unit SQ Q4HR [facility]; Protocol Last Admin: 07/18/18 10:16 Dose: 10 unit Insulin Detemir (Levemir Inj) 5 unit SQ [facility] Last Admin: 07/14/18 21:24 Dose: Not Given Lactulose (Lactulose Liq) 30 ml PO DAILY PRN PRN Reason: SEVERE CONSITIPATION Lactulose (Lactulose Liq) 30 ml NG/OG DAILY [facility] Last Admin: 07/18/18 10:20 Dose: 30 ml Lansoprazole (Prevacid Solutab) 30 mg NG/OG DAILY [facility] Last Admin: 07/18/18 10:19 Dose: 30 mg Lisinopril (Prinivil) 2.5 mg PO DAILY [facility] Last Admin: 07/18/18 10:17 Dose: 2.5 mg Lorazepam (Ativan) 0.5 mg PO Q6H PRN PRN Reason: AGITATION Lorazepam (Ativan) 0.5 mg PO Q12HR [facility] Last Admin: 07/18/18 10:18 Dose: 0.5 mg Lorazepam (Ativan Inj) 0.5 mg IV.PUSH Q6H PRN PRN Reason: agitation if unable to take po Last Admin: 07/14/18 21:25 Dose: 0.5 mg Magnesium Oxide (Mag-Ox) 800 mg PO UNSCH PRN PRN Reason: For Magnesium 1.2 - 1.6 mg/dL Miscellaneous (Pill Splitter) 1 each OTHER UNSCH PRN PRN Reason: SEE LABEL COMMENTS Miscellaneous Information (Mis Nursing Information) 1 each OTHER UNSCH PRN PRN Reason: SEE LABEL COMMENTS Stop: 07/18/18 16:01 Potassium Bicarb/Potassium Chloride (K-Lyte Cl Eff) 50 meq PO UNSCH PRN PRN Reason: For Potassium 3.3 - 3.5 mEq/L Last Admin: 07/10/18 02:21 Dose: 50 meq Potassium Phosphate (K-Phos Original) 2,000 mg PO Q4H PRN PRN Reason: Phosphorus Less Than 2.5 mg/dL Last Admin: 07/10/18 08:14 Dose: 2,000 mg Potassium Phosphate (K-Phos Original) 2,000 mg PO UNSCH PRN PRN Reason: SEE LABEL COMMENTS Pravastatin Sodium (Pravachol) 40 mg PO DAILY@1800 [facility] Last Admin: 07/17/18 17:58 Dose: Not Given Quetiapine Fumarate (Seroquel) 50 mg NG/OG BID@0900,1200 [facility] Last Admin: 07/17/18 15:44 Dose: Not Given Senna/Docusate Sodium (Gisell-Colace) 1 tab PO BID [facility] Last Admin: 07/18/18 10:18 Dose: 1 tab Sennosides (Senokot) 17.2 mg PO Q12H PRN PRN Reason: Moderate Constipation Sodium Chloride (Ns Flush) 2 ml IV.FLUSH BID [facility] Last Admin: 07/18/18 10:22 Dose: Not Given Sodium Chloride (Ns Flush) 2 ml IV.FLUSH PRN PRN PRN Reason: FLUSH AFTER USING IV ACCESS Spironolactone (Aldactone) 25 mg PO BID@0900,1800 [facility] Last Admin: 07/18/18 10:23 Dose: 25 mg Sterile Water (Free Water) 200 ml G-TUBE Q6HR [facility] Last Admin: 07/18/18 05:39 Dose: 200 ml Terbutaline Sulfate (Brethine Inj) 1 mg SQ ONCE PRN PRN Reason: Extravasation Allergies/Adverse Reactions: Allergies Allergy/AdvReac Type Severity Reaction Status Date / Time bee venom protein (honey bee) Allergy Difficulty Verified 06/20/18 22:04 [Bee sting] Breathing hydromorphone Allergy Nausea/Vomi Verified 06/20/18 22:04 ting pregabalin [From Lyrica] Allergy Anaphylaxis Verified 06/20/18 22:04 Review of Systems unobtainable due to mental status Physical Exam Vital signs: Vital Signs 07/17/18 15:41 07/17/18 15:45 07/17/18 16:00 Temperature 98.1 F 98.4 F Pulse Rate 84 84 87 Respiratory Rate 21 21 24 Blood Pressure 128/63 140/63 153/67 H Pulse Oximetry 100 100 97 07/17/18 20:00 07/18/18 00:00 07/18/18 08:00 Temperature 96.9 F L 97.2 F L 97.2 F L Pulse Rate 92 H 70 72 Respiratory Rate 20 16 19 Blood Pressure 148/67 H 106/55 L 160/99 H Pulse Oximetry 97 99 97 07/18/18 12:00 Temperature 97.2 F L Pulse Rate 72 Respiratory Rate 19 Blood Pressure 132/60 Pulse Oximetry 97 Intake & Output 07/17/18 07/18/18 07/18/18 18:59 06:59 18:59 Intake Total 250 / 250 1580 / 1580 Output Total 250 / 250 Balance 0 / 0 1580 / 1580 Weight 55.8 kg Intake: IV 1100 / 1100 D5W Inj 1,000 ML @ 84 mls/hr IV 1000 / 1000 .CONT .[id number] [facility] Rx#:[id number] Rocephin Inj 1,000 MG In NS Inj 100 / 100 100 ML @ 200 mls/hr IV.SIG Q24H [facility] Rx#:[id number] Oral 0 / 0 480 / 480 Anesthesia Amount 250 / 250 Output: Urine 250 / 250 Other: # Incontinent Voids 1 3 Narrative: GENERAL: NAD, A&Ox0 HEAD: Normocephalic. Looks euvolemic, NECK: Supple, trachea midline. No lymphadenopathy. EYES: No scleral icterus. No injection or drainage. CARDIOVASCULAR: Regular rate and rhythm without murmurs, gallops, or rubs. RESPIRATORY: Breath sounds equal bilaterally. No accessory muscle use. GASTROINTESTINAL: Abdomen soft, non-tender, nondistended. MUSCULOSKELETAL: No cyanosis, or edema. SKIN: Warm and dry. Neurology awake alert. Grimaces to tactile stimuli. Not following mute. Positive blink to threat some tracking. Flexion localization of the upper extremity withdraws lower extremity reflexes depressed plantarflex response further sensory cerebellar gait testing limited secondary mental status. - Constitutional no acute distress - Routine HEENT Exam Head: Present: normocephalic Eye: Present: EOMI - Urinary Catheter Management Indwelling Urethral Catheter Cath placed during this visit: yes Urethral indwelling: Yes Reason for continuing: Acute urinary retention Insertion date: 06/20/18 Insertion time: 21:24 3-way Urethral Cath placed during this visit: yes Reason for continuing: Acute urinary retention Insertion date: 07/06/18 Insertion time: 18:00 Objective Laboratory Results - last 24 hr 07/17/18 07/17/18 07/17/18 16:37 17:50 19:29 Sodium 156 H* Potassium Chloride Carbon Dioxide Anion Gap BUN Creatinine Estimated GFR POC Glucose 226 H 190 H Random Glucose Calcium 07/18/18 07/18/18 07/18/18 01:08 05:38 08:26 Sodium Potassium Chloride Carbon Dioxide Anion Gap BUN Creatinine Estimated GFR POC Glucose 86 138 H 213 H Random Glucose Calcium 07/18/18 07/18/18 11:35 12:20 Sodium 143 D Potassium 3.4 L D Chloride 110 H D Carbon Dioxide 23.2 Anion Gap 10 BUN 26 H Creatinine 0.87 Estimated GFR 87 L POC Glucose 127 H Random Glucose 156 H Calcium 8.1 L Microbiology 07/13/18 09:47 Aerobic Blood Culture - Preliminary Blood - Peripheral No growth in 4 days Anaerobic Blood Culture - Preliminary No growth in 4 days 07/13/18 09:53 Aerobic Blood Culture - Final Blood - Peripheral No growth in 5 days Anaerobic Blood Culture - Final No growth in 5 days 07/14/18 19:30 Urine Culture - Final Clean Catch Urine Pseudomonas aeruginosa Review/Management - Diagnosis (1) Encephalopathy Code(s): G93.40 - Encephalopathy, unspecified Status: Acute Current Visit: Yes (2) Respiratory failure Code(s): J96.90 - Respiratory failure, unspecified, unspecified whether with hypoxia or hypercapnia Status: Acute Current Visit: Yes (3) Non-ST elevated myocardial infarction (non-STEMI) Code(s): I21.4 - Non-ST elevation (NSTEMI) myocardial infarction Status: Acute Current Visit: Yes (4) Cardiomyopathy Code(s): I42.9 - Cardiomyopathy, unspecified Status: Acute Current Visit: Yes - Review/Management Plan: Suspected hypoxic, metabolic encephalopathy Recommendations Neurologically unchanged EEG reviewed showing moderate encephalopathy CT scan follow-up no acute lesion Aggressive nutritional support and therapy We will follow peripherally (2) Respiratory failure Qualifiers: Chronicity: acute Respiratory failure complication: hypoxia Qualified Code(s ): J96.01 - Acute respiratory failure with hypoxia (4) Cardiomyopathy Qualifiers: Cardiomyopathy type: viral Qualified Code(s): B33.24 - Viral cardiomyopathy
--- NOTE | 2018-07-18 14:10 | P.PNIM ---
Subjective Interval history: Patient unable to provide history. Patient's condition medical status discussed with the patient's at bedside today. No distress. Physical Exam Vital signs: Vital Signs 07/17/18 15:41 07/17/18 15:45 07/17/18 16:00 Temperature 98.1 F 98.4 F Pulse Rate 84 84 87 Respiratory Rate 21 21 24 Blood Pressure 128/63 140/63 153/67 H Pulse Oximetry 100 100 97 07/17/18 20:00 07/18/18 00:00 07/18/18 08:00 Temperature 96.9 F L 97.2 F L 97.2 F L Pulse Rate 92 H 70 72 Respiratory Rate 20 16 19 Blood Pressure 148/67 H 106/55 L 160/99 H Pulse Oximetry 97 99 97 07/18/18 12:00 Temperature 97.2 F L Pulse Rate 72 Respiratory Rate 19 Blood Pressure 132/60 Pulse Oximetry 97 Intake & Output 07/17/18 07/18/18 07/18/18 18:59 06:59 18:59 Intake Total 250 / 250 1580 / 1580 Output Total 250 / 250 Balance 0 / 0 1580 / 1580 Weight 55.8 kg Intake: IV 1100 / 1100 D5W Inj 1,000 ML @ 84 mls/hr IV 1000 / 1000 .CONT .[id number] [facility] Rx#:[id number] Rocephin Inj 1,000 MG In NS Inj 100 / 100 100 ML @ 200 mls/hr IV.SIG Q24H [facility] Rx#:[id number] Oral 0 / 0 480 / 480 Anesthesia Amount 250 / 250 Output: Urine 250 / 250 Other: # Incontinent Voids 1 3 Narrative: GENERAL: NAD, A&Ox1 HEAD: Normocephalic. NECK: Supple, trachea midline. No lymphadenopathy. EYES: No scleral icterus. No injection or drainage. CARDIOVASCULAR: Regular rate and rhythm without murmurs, gallops, or rubs. RESPIRATORY: Breath sounds equal bilaterally. No accessory muscle use. GASTROINTESTINAL: Abdomen soft, non-tender, nondistended. MUSCULOSKELETAL: No cyanosis, or edema. SKIN: Warm and dry. NEURO: No focal neurological deficits. - Urinary Catheter Management Indwelling Urethral Catheter Cath placed during this visit: yes Urethral indwelling: Yes Reason for continuing: Acute urinary retention Insertion date: 06/20/18 Insertion time: 21:24 3-way Urethral Cath placed during this visit: yes Reason for continuing: Acute urinary retention Insertion date: 07/06/18 Insertion time: 18:00 Results - Labs CBC & Chem 7: 07/17/18 04:58 07/18/18 11:35 Laboratory Results - last 24 hr 07/17/18 07/17/18 07/17/18 16:37 17:50 19:29 Sodium 156 H* Potassium Chloride Carbon Dioxide Anion Gap BUN Creatinine Estimated GFR POC Glucose 226 H 190 H Random Glucose Calcium 07/18/18 07/18/18 07/18/18 01:08 05:38 08:26 Sodium Potassium Chloride Carbon Dioxide Anion Gap BUN Creatinine Estimated GFR POC Glucose 86 138 H 213 H Random Glucose Calcium 07/18/18 07/18/18 11:35 12:20 Sodium 143 D Potassium 3.4 L D Chloride 110 H D Carbon Dioxide 23.2 Anion Gap 10 BUN 26 H Creatinine 0.87 Estimated GFR 87 L POC Glucose 127 H Random Glucose 156 H Calcium 8.1 L Microbiology 07/13/18 09:47 Blood - Peripheral Aerobic Blood Culture - Preliminary No growth in 4 days 07/13/18 09:47 Blood - Peripheral Anaerobic Blood Culture - Preliminary No growth in 4 days 07/13/18 09:53 Blood - Peripheral Aerobic Blood Culture - Final No growth in 5 days 07/13/18 09:53 Blood - Peripheral Anaerobic Blood Culture - Final No growth in 5 days 07/14/18 19:30 Clean Catch Urine Urine Culture - Final Pseudomonas aeruginosa - Procedures intubation/ cardiac cath. Assessment and Plan - Assessment (1) Encephalopathy Code(s): G93.40 - Encephalopathy, unspecified Status: Acute - Plan Acute Resp failure Resolved extubated 07/09 Continue nebulized treatments Acute systolic CHF exacerbation Implanted defibrillator Has been stabilized baseline EF is 20% Continue beta-ana, ENA inhibitor, and diuretic Cardiology following Staph aureus pneumonia Treatment completed UTI Fevers Resolved Rocephin changed to Ciprofloxacin End date of treatment is 07/27/18, for now Atrial fibrillation Rate controlled Follow on telemetry Continue beta-ana NSTEMI Cardiology following Continue beta-ana Continue statin FIDE Follow renal function Follow urine output Avoid nephrotoxins Encephalopathy Seroquel continued If lethargy persists, consider Seroquel discontinuation Dysphagia status post PEG placement ST Hypernatremia Follow and IV Hydration as needed Thrombocytopenia Monitor PAD aspirin and statin continued COPD No exacerbation Continue nebulized therepies LFT Elevation Follow CMP Hyperglycemia Follow blood sugars Insulin Sliding Scale DVT Prophylaxis Lovenox
--- NOTE | 2018-07-18 16:05 | P.PNCA ---
Subjective Interval history: alert in nad, not clearly following commands, tolerating peg tube feedings Physical Exam Vital signs: Vital Signs 07/17/18 20:00 07/18/18 00:00 07/18/18 08:00 Temperature 96.9 F L 97.2 F L 97.2 F L Pulse Rate 92 H 70 72 Respiratory Rate 20 16 19 Blood Pressure 148/67 H 106/55 L 160/99 H Pulse Oximetry 97 99 97 07/18/18 12:00 Temperature 97.2 F L Pulse Rate 72 Respiratory Rate 19 Blood Pressure 132/60 Pulse Oximetry 97 Intake & Output 07/17/18 07/18/18 07/18/18 18:59 06:59 18:59 Intake Total 250 / 250 1580 / 1580 Output Total 250 / 250 Balance 0 / 0 1580 / 1580 Weight 55.8 kg Intake: IV 1100 / 1100 D5W Inj 1,000 ML @ 84 mls/hr IV 1000 / 1000 .CONT .[id number] [facility] Rx#:[id number] Rocephin Inj 1,000 MG In NS Inj 100 / 100 100 ML @ 200 mls/hr IV.SIG Q24H [facility] Rx#:[id number] Oral 0 / 0 480 / 480 Anesthesia Amount 250 / 250 Output: Urine 250 / 250 Other: # Incontinent Voids 1 3 - Urinary Catheter Management Indwelling Urethral Catheter Cath placed during this visit: yes Urethral indwelling: Yes Reason for continuing: Acute urinary retention Insertion date: 06/20/18 Insertion time: 21:24 3-way Urethral Cath placed during this visit: yes Reason for continuing: Acute urinary retention Insertion date: 07/06/18 Insertion time: 18:00 Assessment and Plan - Assessment (1) Cardiomyopathy Code(s): I42.9 - Cardiomyopathy, unspecified Status: Acute (2) Cardiomyopathy Code(s): I42.9 - Cardiomyopathy, unspecified Status: Acute (3) PVD (peripheral vascular disease) Code(s): I73.9 - Peripheral vascular disease, unspecified Status: Acute (4) PVD (peripheral vascular disease) Code(s): I73.9 - Peripheral vascular disease, unspecified Status: Acute (5) Tobacco abuse Code(s): Z72.0 - Tobacco use Status: Acute (6) Respiratory failure Code(s): J96.90 - Respiratory failure, unspecified, unspecified whether with hypoxia or hypercapnia Status: Acute (7) Non-ST elevated myocardial infarction (non-STEMI) Code(s): I21.4 - Non-ST elevation (NSTEMI) myocardial infarction Status: Acute (8) Pulmonary edema cardiac cause Code(s): I50.1 - Left ventricular failure, unspecified Status: Acute - Plan 1.) NICM - end stage, euvolemic, refuses in state transfer, requesting transfer to [facility], d/w Dr Solis; beta ana and hellen held due to hypotension, diuresing to optimize potential extubation, he has hypernatremia, dc lopressor, start coreg 6.25 bmg bid and aldactone 25 mg po bid, continue lisinopril 2.5 mg qd, f/u bmp, bnp in am 2.) CAD - nonobstructive, continue aspirin, pravachol 3.) Encephalopathy - moderate per EEG on sedation, neuro following, has purposeful behavior beginning 07/16/18, still confused, s/p peg 4.) d/w case with at the bedside 07/04/18 5.) Respiratory failure - he is euvolemic, appears to be due to pulmonary and/ or encephalopathic etilology, extubated 07/09/18 but restrained and not following commands, will follow trends in mental and respiratory status, d/w at the bedside 07/16/18, placement @ [facility] pending documented stabilization on sdu x 6 hours (2) Cardiomyopathy Qualifiers: Cardiomyopathy type: viral Qualified Code(s): B33.24 - Viral cardiomyopathy (6) Respiratory failure Qualifiers: Chronicity: acute Respiratory failure complication: hypoxia Qualified Code(s ): J96.01 - Acute respiratory failure with hypoxia
--- NOTE | 2018-07-18 18:18 | P.DIET ---
Nutritional Evaluation Type of nutrition evaluation: follow-up Nutrition consult regarding: Tube Feeding Subjective Barriers to Nutrition: Swallowing problem Subjective Comments: TF'ing running @ 84ml/hr. Pt reassessed using current wt 55.8kg Objective - Diagnosis Hypoxic Respiratory Failure, Pulmonary Edema - Objective [place] body weight: 75.5 kg % IBW: 74 Body Weight Used for Calculations: Actual (55.8kg) Energy Needs - Lower Range (kCal/kg): 38 Energy Needs - Upper Range (kCal/kg): 43 Lower Limit kCal/kg (kCals): 2,120 Upper Limit kCal/kg (kCals): 2,399 Lower Limit Protein Factor (Grams per Kg): 1.4 Upper Limit Protein Factor (Grams per Kg): 1.8 Lower Protein Needs (Protein): 78 Upper Protein Needs (Protein): 100 Dietitian Reviewed in Medical Record: Curent medications, Intake & Output, Labs , Medical history, Tube feeding Diet Order: TF'ing Bolus Jevity 1-can @ 20ml/hr Speech Therapy Recommendations: Yes (NPO w/ PEG tube feedings. Pt w/severe- profound oropharyngeal dysphagia) Wound Care Note: 07/12/18 WOCN: Sacrum Deep Tissue Injury-Pressure Injury ongoing Objective Comments: PMH Includes: BPH, CHF, Cardiac Defibrilator inplace, COPD, GERD, HTN, DM-2, Neuropathy Extubated 07/09; s/p PEG tube placement 07/17 Glucose 156, POC glucose 86, 138, 213, 127 LBM 07/15 Feeding - Current Tube Feeding Tube Feeding Product: Jevity 1.5 Tube Feeding Method: Pump Tube Feeding Rate: 84 Tube Feeding Route: gastrostomy Current kCals Provided by Tube Feedin,024 Current Protein Provided by Tube Feeding (gPRO): 129 Current Free H2O Provided (m/l): 1,532 Assessment Assessment: Pt continues at nutritional risk r/t need for TF'ing, failed swallow eval. and increased needs for wound healing. Current TF'ing w/Jevity 1.5 @ goal rate 84ml/ hr is greater than assessed needs. Rec TF'ing w/Jevity 1.5 @ goal rate 65ml/hr to offer 2340 kcal, 99.5g Protein and 1186ml free water. For a CHO-controlled TF 'ing formula, Rec Glucerna 1.5 @ goal rate 65ml/hr to offer 2340 kcal, 128.7g Protein and 1184ml free water. When Pt tolerates continuous TF'ing @ goal rate, and if bolus feedings are preferred, then Rec 1.5 cans(360ml) @ 8am, 11pm, 2pm and 1-can(240ml) @ 5pm and 8pm. Rec 60ml free water flush before and 60ml free water flush after each bolus feeding to meet hydration needs. Labs reviewed. Wt changes noted w/a 12 kg wt loss from admission wt. Recommendations: 1. Current TF'ing w/Jevity 1.5 @ goal rate 84ml/hr is greater than assessed needs 2. Rec TF'ing w/Jevity 1.5 @ goal rate 65ml/hr 3. For a CHO-controlled TF'ing formula, Rec Glucerna 1.5 @ goal rate 65ml/hr 4. When Pt tolerates continuous TF'ing @ goal rate, and if bolus feedings are preferred, then Rec 1.5 cans(360ml) @ 8am, 11pm, 2pm and 1-can(240ml) @ 5pm and 8pm 5. Rec 60ml free water flush before and 60ml free water flush after each bolus feeding to meet hydration needs Dietitian to Monitor: Lab values, Glucose level, Intake & Output, Tube feeding tolerance, Weight change, Wound/skin status, Swallow recommendations, Medical course
[2018-07-19] MEDS: Insulin NovoLOG Aspart Correctional Sugar Inj SQ SCH ×6 (02:27→22:08)
[2018-07-19] MEDS: Metoprolol Tartrate 25 MG Tablet PO SCH (03:18)
[2018-07-19] MEDS: Baclofen 10 MG Tablet PO SCH ×3 (05:16→22:00)
[2018-07-19] MEDS: Dextrose 5% in Water Inj 1,000 ML IV.CONT SCH ×2 (05:34→19:00)
[2018-07-19 07:19] LABS: Baso % (Auto) 0.5 % (0.0-2.0); Eos # (Auto) 0.1 th/mm3 (0.0-0.4); Eos % (Auto) 2.6 % (0.0-4.0); Hematocrit 34.4 % (39.0-51.0); Hemoglobin 11.5 gm/dL (13.0-17.0); Lymph # (Auto) 1.4 th/mm3 (1.0-4.8); Lymph % (Auto) 33.5 % (9.0-44.0); Mean Corpuscular HGB Conc 33.4 % (32.0-36.0); Mean Corpuscular Hemoglobin 30.6 pg (27.0-34.0); Mean Corpuscular Volume 91.6 fL (80.0-100.0); Mono # (Auto) 0.3 th/mm3 (0.0-0.9); Mono % (Auto) 7.4 % (0.0-8.0); Neut # (Auto) 2.4 th/mm3 (1.8-7.7); Platelet Count 77 th/mm3 (150-450); Red Blood Count 3.75 mil/mm3 (4.50-5.90); Red Cell Distribution Width 15.3 % (11.6-17.2); White Blood Count 4.3 th/mm3 (4.0-11.0)
[2018-07-19 08:03] LABS: Alanine Aminotransferase 81 U/L (12-78); Albumin 2.2 g/dL (3.4-5.0); Alkaline Phosphatase 157 U/L (45-117); Anion Gap 11 meq/L (5-15); Aspartate Aminotransferase 76 U/L (15-37); Blood Urea Nitrogen 24 mg/dL (7-18); Carbon Dioxide 29.5 meq/L (21.0-32.0); Chloride 100 meq/L (98-107); Glomerular Filtration Rate 75 mL/min (>89); Glucose,Random 130 mg/dL (74-106); Sodium 140 meq/L (136-145); Total Protein 6.5 g/dL (6.4-8.2)
[2018-07-19 08:12] LABS: Platelet Morphology Normal (Normal)
[2018-07-19 08:14] LABS: Potassium 2.9 meq/L (3.5-5.1)
[2018-07-19] MEDS: Potassium Chlor 10 mEq Premix 10 MEQ/100 ML PIGGYBACK IV.SIG SCH ×4 (10:54→15:45)
[2018-07-19] MEDS: Lisinopril 5 MG Tablet PO SCH (11:03)
[2018-07-19] MEDS: Brimonidine 0.15% Opth Drops 5 ML Bottle EACH EYE SCH ×2 (11:08→22:01)
[2018-07-19] MEDS: Spironolactone 25 MG Tablet PO SCH ×2 (11:08→17:36)
[2018-07-19] MEDS: Hypromellose 0.3% Opth Gel 10 GM Bottle EACH EYE SCH ×2 (11:11→22:01)
[2018-07-19] MEDS: Carvedilol 6.25 MG Tablet PO SCH ×2 (11:11→22:00)
[2018-07-19] MEDS: Bisacodyl 10 MG Supp RECTAL SCH (11:11)
[2018-07-19] MEDS: Furosemide 40 MG Tablet PO SCH (11:11)
[2018-07-19] MEDS: Senna/Docusate Sodium 8.6/50 MG Tablet PO SCH (11:12)
[2018-07-19] MEDS: Enoxaparin Inj 40 MG/0.4 ML Syringe SQ SCH (11:12)
[2018-07-19] MEDS ORDERED: QUEtiapine 25 MG Tablet NG/OG SCH (12:00)
--- NOTE | 2018-07-19 13:23 | P.PNCA ---
Subjective Interval history: awake, not following commands Physical Exam Vital signs: Vital Signs 07/18/18 16:00 07/18/18 20:00 07/19/18 00:00 Temperature 97.2 F L 97.5 F L 97.4 F L Pulse Rate 64 61 59 L Respiratory Rate 19 19 17 Blood Pressure 120/58 L 101/58 L 108/55 L Pulse Oximetry 98 97 97 07/19/18 04:00 07/19/18 08:00 07/19/18 12:00 Temperature 97.5 F L 97.7 F 97.1 F L Pulse Rate 52 L 55 L 79 Respiratory Rate 16 17 17 Blood Pressure 129/60 96/52 L 107/64 Pulse Oximetry 98 96 96 Intake & Output 07/18/18 07/19/18 07/19/18 18:59 06:59 18:59 Intake Total 1000 / 1000 100 / 100 100 / 100 Balance 1000 / 1000 100 / 100 100 / 100 Weight 56.5 kg Intake: IV 1000 / 1000 100 / 100 100 / 100 D5W Inj 1,000 ML @ 84 mls/hr IV 1000 / 1000 .CONT .[id number] [facility] Rx#:[id number] KCl 10 mEq Premix Inj 10 meq In 100 / 100 100 ml @ 100 mls/hr IV.SIG Q1H MONICA Rx#:[id number] Rocephin Inj 1,000 MG In NS Inj 100 / 100 100 ML @ 200 mls/hr IV.SIG Q24H MONICA Rx#:[id number] Oral 0 / 0 0 / 0 Other: # Voids 5 # Incontinent Voids 2 # Urine Diapers 2 - Urinary Catheter Management Indwelling Urethral Catheter Cath placed during this visit: yes Urethral indwelling: Yes Reason for continuing: Acute urinary retention Insertion date: 06/20/18 Insertion time: 21:24 3-way Urethral Cath placed during this visit: yes Reason for continuing: Acute urinary retention Insertion date: 07/06/18 Insertion time: 18:00 Assessment and Plan - Assessment (1) Cardiomyopathy Code(s): I42.9 - Cardiomyopathy, unspecified Status: Acute (2) Cardiomyopathy Code(s): I42.9 - Cardiomyopathy, unspecified Status: Acute (3) PVD (peripheral vascular disease) Code(s): I73.9 - Peripheral vascular disease, unspecified Status: Acute (4) PVD (peripheral vascular disease) Code(s): I73.9 - Peripheral vascular disease, unspecified Status: Acute (5) Tobacco abuse Code(s): Z72.0 - Tobacco use Status: Acute (6) Respiratory failure Code(s): J96.90 - Respiratory failure, unspecified, unspecified whether with hypoxia or hypercapnia Status: Acute (7) Non-ST elevated myocardial infarction (non-STEMI) Code(s): I21.4 - Non-ST elevation (NSTEMI) myocardial infarction Status: Acute (8) Pulmonary edema cardiac cause Code(s): I50.1 - Left ventricular failure, unspecified Status: Acute - Plan 1.) NICM - end stage, euvolemic, refuses in state transfer, requesting transfer to [facility], d/w Dr Solis; beta ana and hellen held due to hypotension, diuresing to optimize potential extubation, he has hypernatremia, dc lopressor, start coreg 6.25 bmg bid and aldactone 25 mg po bid, continue lisinopril 2.5 mg qd, f/u bmp, bnp in am 2.) CAD - nonobstructive, continue aspirin, pravachol 3.) Encephalopathy - moderate per EEG on sedation, neuro following, has purposeful behavior beginning 07/16/18, still confused, s/p peg 4.) d/w case with at the bedside 07/04/18 5.) Respiratory failure - he is euvolemic, appears to be due to pulmonary and/ or encephalopathic etilology, extubated 07/09/18 but restrained and not following commands, will follow trends in mental and respiratory status, d/w at the bedside 07/19/18, placement @ [facility] pending documented stabilization on sdu x 6 hours (2) Cardiomyopathy Qualifiers: Cardiomyopathy type: viral Qualified Code(s): B33.24 - Viral cardiomyopathy (6) Respiratory failure Qualifiers: Chronicity: acute Respiratory failure complication: hypoxia Qualified Code(s ): J96.01 - Acute respiratory failure with hypoxia
[2018-07-19] MEDS: QUEtiapine 25 MG Tablet NG/OG SCH (17:03)
[2018-07-19] MEDS: LORazepam 0.5 MG Tablet PO SCH (17:03)
--- NOTE | 2018-07-19 17:19 | P.PN ---
Subjective Interval history: Follow-up visit for N STEMI, CHF, encephalopathy and UTI. Patient was seen and examined this morning resting in bed comfortably, appears to be in no acute distress. He does awaken and open his eyes to light tactile stimuli although does not follow commands, nonverbal. Nurse reports episodes of diarrhea yesterday. Discussed patient with at bedside reports that she feels as if patient may be getting too sedated with Seroquel and Ativan. She is requesting that his Ativan be used at bedtime for insomnia, agreeable to decreasing Seroquel dose. When I returned back to bedside patient does appear to be somewhat restless. Discussed the need to test stool for C. difficile since he is currently on antibiotics for UTI, low BP will hold blood pressure medicines this morning, replace potassium IV for better absorption. Also requesting that speech therapy continue to follow patient. Physical Exam Vital signs: Vital Signs 07/18/18 20:00 07/19/18 00:00 07/19/18 04:00 Temperature 97.5 F L 97.4 F L 97.5 F L Pulse Rate 61 59 L 52 L Respiratory Rate 19 17 16 Blood Pressure 101/58 L 108/55 L 129/60 Pulse Oximetry 97 97 98 07/19/18 08:00 07/19/18 12:00 Temperature 97.7 F 97.1 F L Pulse Rate 55 L 79 Respiratory Rate 17 17 Blood Pressure 96/52 L 107/64 Pulse Oximetry 96 96 Intake & Output 07/18/18 07/19/18 07/19/18 18:59 06:59 18:59 Intake Total 1000 / 1000 100 / 100 300 / 300 Balance 1000 / 1000 100 / 100 300 / 300 Weight 56.5 kg Intake: IV 1000 / 1000 100 / 100 300 / 300 D5W Inj 1,000 ML @ 84 mls/hr IV 1000 / 1000 .CONT .[id number] [facility] Rx#:[id number] KCl 10 mEq Premix Inj 10 meq In 300 / 300 100 ml @ 100 mls/hr IV.SIG Q1H MONICA Rx#:[id number] Rocephin Inj 1,000 MG In NS Inj 100 / 100 100 ML @ 200 mls/hr IV.SIG Q24H MONICA Rx#:[id number] Oral 0 / 0 0 / 0 Other: # Voids 5 # Incontinent Voids 2 # Urine Diapers 2 Narrative: GENERAL: Elderly thin female resting in bed, appears to be in no acute distress. HEAD: Normocephalic. NECK: Supple, trachea midline. EYES: No scleral icterus. No injection or drainage. CARDIOVASCULAR: Regular rate and rhythm without murmurs, gallops, or rubs. RESPIRATORY: Breath sounds equal bilaterally. No accessory muscle use. GASTROINTESTINAL: Abdomen soft, non-tender, nondistended. PEG tube in place. MUSCULOSKELETAL: No cyanosis, or edema. SKIN: Warm and dry. NEURO: Awakens and appears to track with eyes, does not follow commands. - Urinary Catheter Management Indwelling Urethral Catheter Cath placed during this visit: yes Urethral indwelling: Yes Reason for continuing: Acute urinary retention Insertion date: 06/20/18 Insertion time: 21:24 3-way Urethral Cath placed during this visit: yes Reason for continuing: Acute urinary retention Insertion date: 07/06/18 Insertion time: 18:00 Results - Labs CBC & Chem 7: 07/19/18 05:12 07/19/18 05:12 Laboratory Results - last 24 hr 07/18/18 07/18/18 07/19/18 18:11 22:54 02:26 WBC RBC Hgb Hct MCV MCH MCHC RDW Plt Count MPV Prelim Diff (Auto) Neut % (Auto) Lymph % (Auto) [place] % (Auto) Eos % (Auto) Baso % (Auto) Neut # (Auto) Lymph # (Auto) [place] # (Auto) Eos # (Auto) Baso # (Auto) WBC Differential Diff Scan Differential Comment Platelet Estimate Platelet Morphology Sodium Potassium Chloride Carbon Dioxide Anion Gap BUN Creatinine Estimated GFR POC Glucose 174 H 155 H 96 Random Glucose Calcium Total Bilirubin AST ALT Alkaline Phosphatase Total Protein Albumin 07/19/18 07/19/18 07/19/18 04:11 05:12 05:12 WBC 4.3 RBC 3.75 L Hgb 11.5 L Hct 34.4 L MCV 91.6 D MCH 30.6 MCHC 33.4 RDW 15.3 Plt Count 77 L MPV 11.0 Prelim Diff (Auto) Slide review pending Neut % (Auto) 56.0 Lymph % (Auto) 33.5 [place] % (Auto) 7.4 Eos % (Auto) 2.6 Baso % (Auto) 0.5 Neut # (Auto) 2.4 Lymph # (Auto) 1.4 [place] # (Auto) 0.3 Eos # (Auto) 0.1 Baso # (Auto) 0.0 WBC Differential . Diff Scan Auto diff confirmed Differential Comment . Platelet Estimate Low L Platelet Morphology Normal Sodium 140 Potassium 2.9 L* Chloride 100 D Carbon Dioxide 29.5 Anion Gap 11 BUN 24 H Creatinine 0.99 Estimated GFR 75 L POC Glucose 145 H Random Glucose 130 H Calcium 8.0 L Total Bilirubin 0.6 AST 76 H ALT 81 H Alkaline Phosphatase 157 H Total Protein 6.5 D Albumin 2.2 L 07/19/18 07/19/18 08:08 13:07 WBC RBC Hgb Hct MCV MCH MCHC RDW Plt Count MPV Prelim Diff (Auto) Neut % (Auto) Lymph % (Auto) [place] % (Auto) Eos % (Auto) Baso % (Auto) Neut # (Auto) Lymph # (Auto) [place] # (Auto) Eos # (Auto) Baso # (Auto) WBC Differential Diff Scan Differential Comment Platelet Estimate Platelet Morphology Sodium Potassium Chloride Carbon Dioxide Anion Gap BUN Creatinine Estimated GFR POC Glucose 199 H 201 H Random Glucose Calcium Total Bilirubin AST ALT Alkaline Phosphatase Total Protein Albumin Microbiology 07/13/18 09:47 Blood - Peripheral Aerobic Blood Culture - Final No growth in 5 days 07/13/18 09:47 Blood - Peripheral Anaerobic Blood Culture - Final No growth in 5 days - Procedures intubation/ cardiac cath. Assessment and Plan - Assessment (1) Encephalopathy Code(s): G93.40 - Encephalopathy, unspecified Status: Acute - Plan Acute Resp failure Resolved extubated 07/09 Continue nebulized treatments Acute systolic CHF exacerbation Implanted defibrillator Has been stabilized baseline EF is 20% Continue beta-ana, ENA inhibitor, and diuretic. Lasix transitioned to p.o. blood pressure on the low side this morning, hold cardiac meds. Cardiology following Staph aureus pneumonia Treatment completed UTI Fevers Resolved Rocephin changed to Ciprofloxacin End date of treatment is 07/27/18, for now Atrial fibrillation Rate controlled Follow on telemetry Bradycardic this morning, parameters for cardiac meds entered. NSTEMI Cardiology following Continue beta-ana Continue statin FIDE Follow renal function Follow urine output Avoid nephrotoxins Encephalopathy Decrease Seroquel to 25 mg due to concerns for sedation. Bedtime dose of Ativan for insomnia. Dysphagia status post PEG placement Speech therapy following, last no recommends to keep patient n.p.o. Hypernatremia Hypokalemia Sodium levels stable, potassium level this morning 2.9, likely secondary to diarrhea Replace potassium IV, recheck labs in the morning Thrombocytopenia Monitor PAD aspirin and statin continued COPD No exacerbation Continue nebulized therepies LFT Elevation LFTs stable, slightly decreased from previous labs Hyperglycemia Follow blood sugars Insulin Sliding Scale Diarrhea Rule out Clostridium difficile Patient on multiple laxatives as well as suppositories, hold until diarrhea resolves Decubitus ulcer -Wound care saw and evaluated patient once again, recommendations for Santyl daily -Dietary following also made aware of wounds -Continue specialty mattress, no cotton on mattress surface, no be found patient , turn every 2 hours. DVT Prophylaxis Lovenox Discussed Condition With: Discussed with , wound care nurse, and RN.
--- NOTE | 2018-07-19 17:52 | P.PNWCN ---
Wound Care Nurse Consult Description: Received pressure ulcer consult of coccyx per DALTON Quevedo Communicated with: DALTON Quevedo RN Recommendation: Please cleanse unstageable sacral/coccyx/right buttock with NORMAL SALINE and pat dry. Apply Santyl to moistened gauze and place over wound bed and secure with a dry cover. Change daily or PRN if saturated or dislodged. Please turn patient from L to R sides every 2 hours and PRN for comfort and offloading of pressure from lyubov prominences. Please use only disposable ultrasorbs for moisture on his Advanced IV low air loss mattress. Additional information: Patient seen on for re-evaluation of pressure injury to sacral/coccyx area. Full note to follow. Wound/Pressure Injury - Wound Left Hand Wound Type: Maceration Wound Bed Appearance: White (macerated skin due to prolonged exposure to fluids underneath the transparent film dressing that was removed by typewriter ribbon winder today) Drainage Amount: None Drainage Odor: No Odor Dressing Status: Open to Air Cleansing Solution: Saline Wound Dressing Change Date: 07/14/18 Sacrum Wound Staging: Unstageable Wound Type: Pressure Injury Is This a Chronic Wound: Yes Requested from Provider a Wound Care Consult: Yes Length: 2.6 (cm) Width: 3 (cm) Depth: 0.5 (slough) Wound Bed Appearance: Yellow (slough) Wound Bed Appearance: unstageable wound with 100% slough in wound bed obscuring true destruction of tissues Drainage Amount: Scant Drainage Odor: No Odor Dressing Status: Changed Primary Dressing: Foam Tape Type: Paper Wound Dressing Change Date: 07/19/18 Right buttock Wound Staging: Stage III Wound Type: Pressure Injury Is This a Chronic Wound: No Requested from Provider a Wound Care Consult: Yes Length: 2.2 (cm) Width: 2 (cm) Depth: 0.1 (cm) Wound Bed Appearance: [place], Yellow (adipose tissue) Drainage Amount: None Drainage Odor: No Odor Dressing Status: Changed Primary Dressing: foam Wound Dressing Change Date: 07/19/18 Right Foot Wound Staging: Stage I Wound Type: Pressure Injury Length: 1 (cm) Width: 1 (cm) Depth: 0 (intact non blanching erythema) Wound Bed Appearance: Red Dressing Status: Open to Air (blue heel raiser boots removed) - Additional Information Patient seen for pressure ulcer to sacral/coccyx/right buttock areas as well as new pressure injuries to feet from blue heel raiser boots. Full note to follow.
[2018-07-20] MEDS: Insulin NovoLOG Aspart Correctional Sugar Inj SQ SCH ×6 (01:47→20:16)
[2018-07-20] MEDS: Dextrose 5% in Water Inj 1,000 ML IV.CONT SCH ×2 (05:36→18:18)
[2018-07-20] MEDS: Baclofen 10 MG Tablet PO SCH ×3 (05:36→20:15)
[2018-07-20 05:55] LABS: Calcium 7.7 mg/dL (8.5-10.1); Magnesium 1.7 mg/dL (1.5-2.5)
[2018-07-20] MEDS: Potassium Chlor 20 mEq Premix 20 MEQ/100 ML PIGGYBACK IV.SIG SCH ×2 (08:40→20:03)
[2018-07-20] MEDS: Carvedilol 6.25 MG Tablet PO SCH ×2 (08:46→20:03)
[2018-07-20] MEDS: Brimonidine 0.15% Opth Drops 5 ML Bottle EACH EYE SCH ×2 (08:49→20:15)
[2018-07-20] MEDS: Hypromellose 0.3% Opth Gel 10 GM Bottle EACH EYE SCH ×2 (08:51→20:15)
[2018-07-20] MEDS: Lisinopril 5 MG Tablet PO SCH (08:52)
[2018-07-20] MEDS: Collagenase Oint 30 GM Tube TOPICAL SCH (08:52)
[2018-07-20] MEDS: Enoxaparin Inj 40 MG/0.4 ML Syringe SQ SCH (08:53)
[2018-07-20] MEDS: Spironolactone 25 MG Tablet PO SCH ×2 (08:57→17:55)
--- NOTE | 2018-07-20 09:56 | P.PN ---
Subjective Interval history: Follow-up visit for cardiomyopathy, CHF, UTI, hypokalemia, diarrhea and encephalopathy. Patient seen and examined resting in bed appears somewhat restless this morning. at bedside reports he is a bit more awake this morning. Nursing staff does not report any diarrhea overnight however patient did have good BM this morning. Briefly discussed goals with , she is agreeable patient being discharged to rehab once medically stable in anticipation for transportation back to [place]. Physical Exam Vital signs: Vital Signs 07/19/18 12:00 07/19/18 16:00 07/19/18 20:00 Temperature 97.1 F L 97.3 F L 97.9 F Pulse Rate 79 61 67 Respiratory Rate 17 17 16 Blood Pressure 107/64 117/57 L 161/62 H Pulse Oximetry 96 97 100 07/20/18 00:00 07/20/18 04:00 Temperature 97.1 F L 97.6 F Pulse Rate 58 L 69 Respiratory Rate 16 16 Blood Pressure 134/66 107/52 L Pulse Oximetry 97 100 Intake & Output 07/19/18 07/20/18 07/20/18 18:59 06:59 18:59 Intake Total 400 / 400 Output Total 800 / 800 Balance 400 / 400 -800 / -800 Weight 59.5 kg Intake: IV 400 / 400 KCl 10 mEq Premix Inj 10 meq In 400 / 400 100 ml @ 100 mls/hr IV.SIG Q1H [facility]ICA Rx#:[id number] Output: Urine 800 / 800 Other: # Voids 4 # Incontinent Voids 1 Narrative: GENERAL: Elderly thin female resting in bed, appears to be in no acute distress. HEAD: Normocephalic. NECK: Supple, trachea midline. EYES: No scleral icterus. No injection or drainage. CARDIOVASCULAR: Regular rate and rhythm without murmurs, gallops, or rubs. RESPIRATORY: Breath sounds equal bilaterally. No accessory muscle use. GASTROINTESTINAL: Abdomen soft, non-tender, nondistended. PEG tube in place. MUSCULOSKELETAL: No cyanosis, or edema. SKIN: Warm and dry. NEURO: Awakens and appears to track with eyes, does not follow commands. - Urinary Catheter Management Indwelling Urethral Catheter Cath placed during this visit: yes Urethral indwelling: Yes Reason for continuing: Acute urinary retention Insertion date: 06/20/18 Insertion time: 21:24 3-way Urethral Cath placed during this visit: yes Reason for continuing: Acute urinary retention Insertion date: 07/06/18 Insertion time: 18:00 Results - Labs CBC & Chem 7: 07/19/18 05:12 07/20/18 04:34 Laboratory Results - last 24 hr 07/19/18 07/19/18 07/19/18 13:07 18:00 22:03 Sodium Potassium Chloride Carbon Dioxide Anion Gap BUN Creatinine Estimated GFR POC Glucose 201 H 199 H 287 H Random Glucose Calcium Magnesium St C. diff Tox Epid 027 C. difficile Tox (PCR) 07/20/18 07/20/18 07/20/18 01:33 03:10 04:34 Sodium 137 Potassium 3.0 L Chloride 100 Carbon Dioxide 27.0 Anion Gap 10 BUN 21 H Creatinine 0.99 Estimated GFR 75 L POC Glucose 149 H Random Glucose 203 H Calcium 7.[address] C. diff Tox Epid 027 Negative C. difficile Tox (PCR) Negative 07/20/18 07/20/18 05:38 07:31 Sodium Potassium Chloride Carbon Dioxide Anion Gap BUN Creatinine Estimated GFR POC Glucose 224 H 218 H Random Glucose Calcium Magnesium St C. diff Tox Epid 027 C. difficile Tox (PCR) Microbiology 07/13/18 09:47 Blood - Peripheral Aerobic Blood Culture - Final No growth in 5 days 07/13/18 09:47 Blood - Peripheral Anaerobic Blood Culture - Final No growth in 5 days - Procedures intubation/ cardiac cath. Assessment and Plan - Assessment (1) Encephalopathy Code(s): G93.40 - Encephalopathy, unspecified Status: Acute - Plan Acute Resp failure Resolved extubated 07/09 Continue nebulized treatments Acute systolic CHF exacerbation Implanted defibrillator Has been stabilized baseline EF is 20% Continue beta-ana, ENA inhibitor, and diuretic. Lasix transitioned to p.o. Cardiology following Staph aureus pneumonia Treatment completed UTI Fevers Resolved Rocephin changed to Ciprofloxacin End date of treatment is 07/27/18, for now Atrial fibrillation Rate controlled Follow on telemetry Bradycardic this morning, parameters for cardiac meds. NSTEMI Cardiology following Continue beta-ana Continue statin FIDE Follow renal function Follow urine output Avoid nephrotoxins Encephalopathy Patient still sedated despite decreasing Seroquel to 25 mg daily. Will discontinue for the meantime and continue to monitor patient. Bedtime dose of Ativan for insomnia. Dysphagia status post PEG placement Speech therapy following, last no recommends to keep patient n.p.o. Hypernatremia Hypokalemia Hypokalemia likely secondary to ongoing diarrhea, replace IV. All stool softeners have been placed on hold, C. difficile was negative. Thrombocytopenia Monitor PAD aspirin and statin continued COPD No exacerbation Continue nebulized therepies LFT Elevation LFTs stable, slightly decreased from previous labs Hyperglycemia Follow blood sugars Insulin Sliding Scale Diarrhea C. difficile negative Continue IV fluids Patient on multiple laxatives as well as suppositories, hold until diarrhea resolves Decubitus ulcer -Wound care saw and evaluated patient once again, recommendations for Santyl daily -Dietary following also made aware of wounds -Continue specialty mattress, no cotton on mattress surface, no be found patient , turn every 2 hours. DVT Prophylaxis Lovenox Discussed Condition With: Discussed with nurse, , Dr. Gallardo and CM Discharge Planning: Patient has been turned down by [facility]. manager [employer] to assist with placement in alternative rehab centers pending medical clearance.
--- NOTE | 2018-07-20 11:44 | P.PNCA ---
Subjective Interval history: alert in nad, not following commands Physical Exam Vital signs: Vital Signs 07/19/18 12:00 07/19/18 16:00 07/19/18 20:00 Temperature 97.1 F L 97.3 F L 97.9 F Pulse Rate 79 61 67 Respiratory Rate 17 17 16 Blood Pressure 107/64 117/57 L 161/62 H Pulse Oximetry 96 97 100 07/20/18 00:00 07/20/18 04:00 Temperature 97.1 F L 97.6 F Pulse Rate 58 L 69 Respiratory Rate 16 16 Blood Pressure 134/66 107/52 L Pulse Oximetry 97 100 Intake & Output 07/19/18 07/20/18 07/20/18 18:59 06:59 18:59 Intake Total 400 / 400 Output Total 800 / 800 Balance 400 / 400 -800 / -800 Weight 59.5 kg Intake: IV 400 / 400 KCl 10 mEq Premix Inj 10 meq In 400 / 400 100 ml @ 100 mls/hr IV.SIG Q1H [facility]ICA Rx#:[id number] Output: Urine 800 / 800 Other: # Voids 4 # Incontinent Voids 1 - Urinary Catheter Management Indwelling Urethral Catheter Cath placed during this visit: yes Urethral indwelling: Yes Reason for continuing: Acute urinary retention Insertion date: 06/20/18 Insertion time: 21:24 3-way Urethral Cath placed during this visit: yes Reason for continuing: Acute urinary retention Insertion date: 07/06/18 Insertion time: 18:00 Assessment and Plan - Assessment (1) Cardiomyopathy Code(s): I42.9 - Cardiomyopathy, unspecified Status: Acute (2) Cardiomyopathy Code(s): I42.9 - Cardiomyopathy, unspecified Status: Acute (3) PVD (peripheral vascular disease) Code(s): I73.9 - Peripheral vascular disease, unspecified Status: Acute (4) PVD (peripheral vascular disease) Code(s): I73.9 - Peripheral vascular disease, unspecified Status: Acute (5) Tobacco abuse Code(s): Z72.0 - Tobacco use Status: Acute (6) Respiratory failure Code(s): J96.90 - Respiratory failure, unspecified, unspecified whether with hypoxia or hypercapnia Status: Acute (7) Non-ST elevated myocardial infarction (non-STEMI) Code(s): I21.4 - Non-ST elevation (NSTEMI) myocardial infarction Status: Acute (8) Pulmonary edema cardiac cause Code(s): I50.1 - Left ventricular failure, unspecified Status: Acute - Plan 1.) NICM - end stage, euvolemic, refuses in state transfer, requesting transfer to [facility], d/w Dr Solis; beta ana and hellen held due to hypotension, diuresing to optimize potential extubation, he has hypernatremia, dc lopressor, start coreg 6.25 bmg bid and aldactone 25 mg po bid, continue lisinopril 2.5 mg qd, f/u bmp, bnp in am 2.) CAD - nonobstructive, continue aspirin, pravachol 3.) Encephalopathy - moderate per EEG on sedation, neuro following, has purposeful behavior beginning 07/16/18, still confused, s/p peg 4.) d/w case with at the bedside 07/04/18 5.) Respiratory failure - he is euvolemic, appears to be due to pulmonary and/ or encephalopathic etilology, extubated 07/09/18 but restrained and not following commands, will follow trends in mental and respiratory status, d/w at the bedside 07/19/18, placement @ [facility] pending documented stabilization on sdu x 6 hours 6.) Arrythmia - will interrogate icd to see if any evidence of afib, so far there is no documented afib on telemetry i am aware of (2) Cardiomyopathy Qualifiers: Cardiomyopathy type: viral Qualified Code(s): B33.24 - Viral cardiomyopathy (6) Respiratory failure Qualifiers: Chronicity: acute Respiratory failure complication: hypoxia Qualified Code(s ): J96.01 - Acute respiratory failure with hypoxia
--- NOTE | 2018-07-20 16:22 | P.PNPAL ---
Reason for Visit Reason for visit: a. To assist with evaluation and management of symptoms including: encephalopathy,dyspnea, pain, agitation. b. To assist medical decision maker(s ) with: better understanding of current medical conditions; weighing benefits/ burdens of medical treatment options; making medical treatment decisions. Subjective Subjective/Interval History: Pt in bed, appears comfortable. and 's daughter at bedside. Tolerating TF. Still failing swallow eval although tells me "he actually did swallow water today." Per ORTHOTIC TECHNICIAN notes, pt had 2/10 swallows. says swallowing appeared to be painful to him, daughter notes he had white coating in mouth. He resists my attempts to examine his throat. Still with slight restless appearance constantly fidgeting and moving arms and turning head. He does not follow commands. says he has uttered some cursewords but on my eval, as in the past, he is nonverbal. Kevint BM documented in nursing notes today. Family/Friend Interactions: Brief discussion with family at bedside. Provided medical update and supportive listening. says they will be considering local options for "acute rehab." Pt does not qualify for [facility]. Advance Directives Living Will: Never completed Health Care Surrogate: Never completed Durable Power of Metrology Manager: Never completed Objective Vital Signs: Vital Signs 07/19/18 20:00 07/20/18 00:00 07/20/18 04:00 Temperature 97.9 F 97.1 F L 97.6 F Pulse Rate 67 58 L 69 Respiratory Rate 16 16 16 Blood Pressure 161/62 H 134/66 107/52 L Pulse Oximetry 100 97 100 07/20/18 08:00 07/20/18 12:00 Temperature 97.9 F 98.3 F Pulse Rate 74 64 Respiratory Rate 18 17 Blood Pressure 127/59 L 99/59 L Pulse Oximetry 98 97 Intake & Output 07/19/18 07/20/18 07/20/18 18:59 06:59 18:59 Intake Total 400 / 400 1200 / 1200 Output Total 800 / 800 Balance 400 / 400 -800 / -800 1200 / 1200 Weight 59.5 kg Intake: IV 400 / 400 KCl 10 mEq Premix Inj 10 meq In 400 / 400 100 ml @ 100 mls/hr IV.SIG Q1H MONICA Rx#:[id number] Tube Feeding 1000 / 1000 Water Bolus Amount 200 / 200 Output: Urine 800 / 800 Other: # Voids 4 # Incontinent Voids 1 Date of Last Bowel Movement 07/20/18 # Bowel Movements 1 Physical Exam: SKIN: No jaundice, rashes, or lesions. Skin temperature appropriate. Not diaphoretic. EYES: No scleral icterus. No injection or drainage. Fundi not examined. ENT: Nose without bleeding or purulent drainage. CARDIOVASCULAR: irregular HR RESPIRATORY/CHEST: Symmetric, unlabored respirations. CTA GASTROINTESTINAL: ABD soft, nontender, mildly distended, BS + has Peg tube completely covered with clean dressing GENITOURINARY: Without palpable bladder distension. Nevarez catheter in place. MUSCULOSKELETAL: Extremities without clubbing, cyanosis, or edema. No mottling or clubbing. NEUROLOGICAL: not following commands. nonverbal. tracks. PSYCHIATRIC: mildly restless Diagnostic Tests Laboratory: Laboratory Results - last 72 hr 07/17/18 07/17/18 07/17/18 16:37 17:50 19:29 WBC RBC Hgb Hct MCV MCH MCHC RDW Plt Count MPV Prelim Diff (Auto) Neut % (Auto) Lymph % (Auto) [place] % (Auto) Eos % (Auto) Baso % (Auto) Neut # (Auto) Lymph # (Auto) [place] # (Auto) Eos # (Auto) Baso # (Auto) WBC Differential Diff Scan Differential Comment Platelet Estimate Platelet Morphology Sodium 156 H* Potassium Chloride Carbon Dioxide Anion Gap BUN Creatinine Estimated GFR POC Glucose 226 H 190 H Random Glucose Calcium Magnesium Total Bilirubin AST ALT Alkaline Phosphatase Total Protein Albumin St C. diff Tox Epid 027 C. difficile Tox (PCR) 07/18/18 07/18/18 07/18/18 01:08 05:38 08:26 WBC RBC Hgb Hct MCV MCH MCHC RDW Plt Count MPV Prelim Diff (Auto) Neut % (Auto) Lymph % (Auto) [place] % (Auto) Eos % (Auto) Baso % (Auto) Neut # (Auto) Lymph # (Auto) [place] # (Auto) Eos # (Auto) Baso # (Auto) WBC Differential Diff Scan Differential Comment Platelet Estimate Platelet Morphology Sodium Potassium Chloride Carbon Dioxide Anion Gap BUN Creatinine Estimated GFR POC Glucose 86 138 H 213 H Random Glucose Calcium Magnesium Total Bilirubin AST ALT Alkaline Phosphatase Total Protein Albumin St C. diff Tox Epid 027 C. difficile Tox (PCR) 07/18/18 07/18/18 07/18/18 11:35 12:20 18:11 WBC RBC Hgb Hct MCV MCH MCHC RDW Plt Count MPV Prelim Diff (Auto) Neut % (Auto) Lymph % (Auto) [place] % (Auto) Eos % (Auto) Baso % (Auto) Neut # (Auto) Lymph # (Auto) [place] # (Auto) Eos # (Auto) Baso # (Auto) WBC Differential Diff Scan Differential Comment Platelet Estimate Platelet Morphology Sodium 143 D Potassium 3.4 L D Chloride 110 H D Carbon Dioxide 23.2 Anion Gap 10 BUN 26 H Creatinine 0.87 Estimated GFR 87 L POC Glucose 127 H 174 H Random Glucose 156 H Calcium 8.1 L Magnesium Total Bilirubin AST ALT Alkaline Phosphatase Total Protein Albumin St C. diff Tox Epid 027 C. difficile Tox (PCR) 07/18/18 07/19/18 07/19/18 22:54 02:26 04:11 WBC RBC Hgb Hct MCV MCH MCHC RDW Plt Count MPV Prelim Diff (Auto) Neut % (Auto) Lymph % (Auto) [place] % (Auto) Eos % (Auto) Baso % (Auto) Neut # (Auto) Lymph # (Auto) [place] # (Auto) Eos # (Auto) Baso # (Auto) WBC Differential Diff Scan Differential Comment Platelet Estimate Platelet Morphology Sodium Potassium Chloride Carbon Dioxide Anion Gap BUN Creatinine Estimated GFR POC Glucose 155 H 96 145 H Random Glucose Calcium Magnesium Total Bilirubin AST ALT Alkaline Phosphatase Total Protein Albumin St C. diff Tox Epid 027 C. difficile Tox (PCR) 07/19/18 07/19/18 07/19/18 05:12 05:12 08:08 WBC 4.3 RBC 3.75 L Hgb 11.5 L Hct 34.4 L MCV 91.6 D MCH 30.6 MCHC 33.4 RDW 15.3 Plt Count 77 L MPV 11.0 Prelim Diff (Auto) Slide review pending Neut % (Auto) 56.0 Lymph % (Auto) 33.5 Baca % (Auto) 7.4 Eos % (Auto) 2.6 Baso % (Auto) 0.5 Neut # (Auto) 2.4 Lymph # (Auto) 1.4 Baca # (Auto) 0.3 Eos # (Auto) 0.1 Baso # (Auto) 0.0 WBC Differential . Diff Scan Auto diff confirmed Differential Comment . Platelet Estimate Low L Platelet Morphology Normal Sodium 140 Potassium 2.9 L* Chloride 100 D Carbon Dioxide 29.5 Anion Gap 11 BUN 24 H Creatinine 0.99 Estimated GFR 75 L POC Glucose 199 H Random Glucose 130 H Calcium 8.0 L Magnesium Total Bilirubin 0.6 AST 76 H ALT 81 H Alkaline Phosphatase 157 H Total Protein 6.5 D Albumin 2.[address] C[address] diff Tox Epid 027 C. difficile Tox (PCR) 07/19/18 07/19/18 07/19/18 13:07 18:00 22:03 WBC RBC Hgb Hct MCV MCH MCHC RDW Plt Count MPV Prelim Diff (Auto) Neut % (Auto) Lymph % (Auto) [place] % (Auto) Eos % (Auto) Baso % (Auto) Neut # (Auto) Lymph # (Auto) [place] # (Auto) Eos # (Auto) Baso # (Auto) WBC Differential Diff Scan Differential Comment Platelet Estimate Platelet Morphology Sodium Potassium Chloride Carbon Dioxide Anion Gap BUN Creatinine Estimated GFR POC Glucose 201 H 199 H 287 H Random Glucose Calcium Magnesium Total Bilirubin AST ALT Alkaline Phosphatase Total Protein Albumin St C. diff Tox Epid 027 C. difficile Tox (PCR) 07/20/18 07/20/18 07/20/18 01:33 03:10 04:34 WBC RBC Hgb Hct MCV MCH MCHC RDW Plt Count MPV Prelim Diff (Auto) Neut % (Auto) Lymph % (Auto) [place] % (Auto) Eos % (Auto) Baso % (Auto) Neut # (Auto) Lymph # (Auto) [place] # (Auto) Eos # (Auto) Baso # (Auto) WBC Differential Diff Scan Differential Comment Platelet Estimate Platelet Morphology Sodium 137 Potassium 3.0 L Chloride 100 Carbon Dioxide 27.0 Anion Gap 10 BUN 21 H Creatinine 0.99 Estimated GFR 75 L POC Glucose 149 H Random Glucose 203 H Calcium 7.7 L Magnesium 1.7 Total Bilirubin AST ALT Alkaline Phosphatase Total Protein Albumin St C. diff Tox Epid 027 Negative C. difficile Tox (PCR) Negative 07/20/18 07/20/18 07/20/18 05:38 07:31 11:50 WBC RBC Hgb Hct MCV MCH MCHC RDW Plt Count MPV Prelim Diff (Auto) Neut % (Auto) Lymph % (Auto) [place] % (Auto) Eos % (Auto) Baso % (Auto) Neut # (Auto) Lymph # (Auto) [place] # (Auto) Eos # (Auto) Baso # (Auto) WBC Differential Diff Scan Differential Comment Platelet Estimate Platelet Morphology Sodium Potassium Chloride Carbon Dioxide Anion Gap BUN Creatinine Estimated GFR POC Glucose 224 H 218 H 64 L Random Glucose Calcium Magnesium Total Bilirubin AST ALT Alkaline Phosphatase Total Protein Albumin St C. diff Tox Epid 027 C. difficile Tox (PCR) 07/20/18 07/20/18 12:51 15:29 WBC RBC Hgb Hct MCV MCH MCHC RDW Plt Count MPV Prelim Diff (Auto) Neut % (Auto) Lymph % (Auto) [place] % (Auto) Eos % (Auto) Baso % (Auto) Neut # (Auto) Lymph # (Auto) [place] # (Auto) Eos # (Auto) Baso # (Auto) WBC Differential Diff Scan Differential Comment Platelet Estimate Platelet Morphology Sodium Potassium Chloride Carbon Dioxide Anion Gap BUN Creatinine Estimated GFR POC Glucose 74 238 H Random Glucose Calcium Magnesium Total Bilirubin AST ALT Alkaline Phosphatase Total Protein Albumin St C. diff Tox Epid 027 C. difficile Tox (PCR) Result Diagrams: 07/19/18 05:12 07/20/18 04:34 Microbiology: Microbiology 07/13/18 09:47 Aerobic Blood Culture - Final Blood - Peripheral No growth in 5 days Anaerobic Blood Culture - Final No growth in 5 days 07/13/18 09:53 Aerobic Blood Culture - Final Blood - Peripheral No growth in 5 days Anaerobic Blood Culture - Final No growth in 5 days Imaging: ITS Impressions Abdomen/Bladder Ultrasound 06/21/18 00:00 CONCLUSION: 1. Increased echogenicity of both kidneys typical of chronic parenchymal disease. 2. No evidence of acute obstructive uropathy. 3. Bilateral benign appearing renal cysts. Abdomen/Pelvis CT 07/04/18 00:00 CONCLUSION: The bulging in the right lower quadrant is related to distention of the cecum. Abdomen X-Ray 07/10/18 08:00 CONCLUSION: No evidence of obstruction. Chest X-Ray 07/12/18 00:00 CONCLUSION: 1. Persistent mild patchy bibasilar airspace disease, likely atelectasis. 2. No significant interval change following expiration. Head CT 07/12/18 00:00 CONCLUSION: 1. No acute intracranial abnormality. 2. Atrophy. 3. Increased density seen throughout the mastoid air cells and middle ear regions. . Procedures: 06/23 reintubated 06/26 heart cath 07/09 extubated Assessment and Plan - Disease Oriented Problem List (1) Respiratory failure (2) Non-ST elevated myocardial infarction (non-STEMI) (3) Cardiomyopathy (4) PVD (peripheral vascular disease) (5) Tobacco abuse (6) Constipation Pertinent Non-Medical Issues: Psychosocial: Pt originally from [place]. with 4 kids. 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 Spiritual: restorationism. 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 Legal: Per [place] statute is proxy decision maker. Ethical issues impacting care: none Important Contacts: Kristine Avila, - [phone] Prognosis: This is a 72-year-old male with history CHF, COPD, tobacco abuse, diabetes who presented 06/20 [place] He has a defibrillator implanted. His baseline ejection fraction is 25% and he is now at less than 20%. Patient reintubated 06/23, extubated . Now with encephalopathy, no improvement and unclear if it will indeed improve. Had cardiac cath 06/26 with finding 3 vessel CAD, non ischemic dilated cardiomyopathy. He is at high risk for continued complications and decline. Code Status: Full Code Plan: - LEGAL DECISON MAKER -No written advanced directives. Patient is not capacitated to make medical decisions, uncertain if he will regain capacity. Per [place] statutes, health care proxy decision making falls to his . - FULL CODE - GOALS - aggressive. Brief discussion with at bedside. says they will be considering local options for "acute rehab." Pt does not qualify for [facility]. Has previously verbalized wishing to have him optimized for transport back to [place]. - SYMPTOMS - * pain - multifactorial- prolonged bedbound status, mult tubes and lines, had ileus, now with DTI sacrum. chest pain prior to admission. ileus is improved. Family noted he had pain during swallow eval and told them he had throat pain, had whitish film in mouth. He would not allow me to examine his throat. Consider treating for kimberly. Has PRN Tylenol ordered, no pain recommendations at this time. * constipation - improved. mult BM documented for today * dyspnea -reintubated 06/23. extubated 07/09. Recent N STEMI. EF < 20% . s/p cardiac cath 06/26 findings 3 vessel CAD, nonischemic dilated cardiomyopathy. pulmonology consulted for significant COPD. CV surgery consulted, not candidate at this time. pt extubated 07/09. Not on oxygen currently, sat 97 on room air. scheduled [employer]'s, mgmt per pulmonology. * agitation - multifactorial. encephalopathy. extubated. Overall agitation has improved and pt remains mildly restless, constantly fidgeting. no sign discomfort or agitation however. neuro following, EEG revealed generalized encephalopathy, CT no acute intracranial changes. Uncertain if encephalopathy will improve. seroquel was decreased d/t concerns of over sedation, ativan HS per attending. - d/w RN - Palliative care will continue to follow during hospital course as condition evolves, to assist patient/decision-maker with understanding of medical conditions, weighing benefits/burdens of treatment options, for clarification of goals of treatment. Additionally will assist with any symptoms of palliative concern Attestation Attestation: To help prompt me to consider important information that might be impacting today's encounter and assessment, information from prior notes written by myself or my colleagues may have been "brought forward" into today's note. My signature on this note, however, is an attestation that I personally performed the exam, history, and/or decision-making noted today, and, unless otherwise indicated, the interactions with patient, family, and staff as well as the review of records all occurred today. I also attest that the listed assessment and stated plan reflect my best clinical judgment today based on the combination of historical information, prior notes, and today's exam/ interactions. When time spent is documented, it refers only to time spent today by the signer, or if indicated, combined time spent today by collaborating physician/nurse practitioner.
[2018-07-21] MEDS: Baclofen 10 MG Tablet PO SCH ×4 (00:16→21:30)
[2018-07-21] MEDS: LORazepam 0.5 MG Tablet PO PRN ×3 (00:31→21:31)
[2018-07-21] MEDS: Dextrose 5% in Water Inj 1,000 ML IV.CONT SCH ×3 (00:37→17:28)
[2018-07-21] MEDS: Insulin NovoLOG Aspart Correctional Sugar Inj SQ SCH ×5 (00:42→17:27)
[2018-07-21 07:46] LABS: Carbon Dioxide 26.5 meq/L (21.0-32.0); Potassium 3.5 meq/L (3.5-5.1)
[2018-07-21] MEDS: Carvedilol 6.25 MG Tablet PO SCH ×2 (08:38→21:30)
[2018-07-21] MEDS: Enoxaparin Inj 40 MG/0.4 ML Syringe SQ SCH (08:38)
[2018-07-21] MEDS: Lisinopril 5 MG Tablet PO SCH (08:38)
[2018-07-21] MEDS: Brimonidine 0.15% Opth Drops 5 ML Bottle EACH EYE SCH ×2 (08:39→21:31)
[2018-07-21] MEDS: Hypromellose 0.3% Opth Gel 10 GM Bottle EACH EYE SCH ×2 (08:39→21:31)
[2018-07-21] MEDS: Spironolactone 25 MG Tablet PO SCH ×2 (08:39→17:27)
[2018-07-21] MEDS: Collagenase Oint 30 GM Tube TOPICAL SCH (09:50)
--- NOTE | 2018-07-21 11:13 | P.PNCA ---
Subjective Interval history: alet in nad, not following commands Physical Exam Vital signs: Vital Signs 07/20/18 12:00 07/20/18 18:24 07/20/18 20:00 Temperature 98.3 F Pulse Rate 64 91 H Respiratory Rate 17 Blood Pressure 99/59 L Pulse Oximetry 97 97 07/20/18 20:37 07/21/18 00:17 07/21/18 02:29 Temperature 97.9 F 97.7 F Pulse Rate 82 76 Respiratory Rate 18 18 18 Blood Pressure 131/59 L 112/58 L Pulse Oximetry 96 96 07/21/18 04:39 07/21/18 08:00 Temperature 96.8 F L 97.5 F L Pulse Rate 81 85 Respiratory Rate 18 18 Blood Pressure 125/58 L 116/57 L Pulse Oximetry 96 97 Intake & Output 07/20/18 07/21/18 07/21/18 18:59 06:59 18:59 Intake Total 2300 / 2300 100 / 100 1250 / 1250 Output Total 1000 / 1000 Balance 2300 / 2300 -900 / -900 1250 / 1250 Weight 60 kg Intake: IV 1100 / 1100 100 / 100 1000 / 1000 D5W Inj 1,000 ML @ 84 mls/hr IV 1000 / 1000 1000 / 1000 .CONT .[id number] MONICA Rx#:[id number] KCl 20 mEq Premix Inj 20 meq In 100 / 100 100 ml @ 100 mls/hr IV.SIG Q1H MONICA Rx#:[id number] Tube Feeding 1000 / 1000 Water Bolus Amount 200 / 200 250 / 250 Output: Urine 1000 / 1000 Other: Date of Last Bowel Movement 07/20/18 07/20/18 # Bowel Movements 1 - Urinary Catheter Management Indwelling Urethral Catheter Cath placed during this visit: yes Urethral indwelling: Yes Reason for continuing: Acute urinary retention Insertion date: 06/20/18 Insertion time: 21:24 3-way Urethral Cath placed during this visit: yes Reason for continuing: Acute urinary retention Insertion date: 07/06/18 Insertion time: 18:00 Assessment and Plan - Assessment (1) Cardiomyopathy Code(s): I42.9 - Cardiomyopathy, unspecified Status: Acute (2) Cardiomyopathy Code(s): I42.9 - Cardiomyopathy, unspecified Status: Acute (3) PVD (peripheral vascular disease) Code(s): I73.9 - Peripheral vascular disease, unspecified Status: Acute (4) PVD (peripheral vascular disease) Code(s): I73.9 - Peripheral vascular disease, unspecified Status: Acute (5) Tobacco abuse Code(s): Z72.0 - Tobacco use Status: Acute (6) Respiratory failure Code(s): J96.90 - Respiratory failure, unspecified, unspecified whether with hypoxia or hypercapnia Status: Acute (7) Non-ST elevated myocardial infarction (non-STEMI) Code(s): I21.4 - Non-ST elevation (NSTEMI) myocardial infarction Status: Acute (8) Pulmonary edema cardiac cause Code(s): I50.1 - Left ventricular failure, unspecified Status: Acute - Plan 1.) NICM - end stage, euvolemic, refuses in state transfer, requesting transfer to [facility], d/w Dr Solis; beta ana and hellen held due to hypotension, diuresing to optimize potential extubation, he has hypernatremia, dc lopressor, start coreg 6.25 bmg bid and aldactone 25 mg po bid, continue lisinopril 2.5 mg qd, f/u bmp, bnp in am 2.) CAD - nonobstructive, continue aspirin, pravachol 3.) Encephalopathy - moderate per EEG on sedation, neuro following, has purposeful behavior beginning 07/16/18, still confused, s/p peg 4.) d/w case with at the bedside 07/04/18 5.) Respiratory failure - he is euvolemic, appears to be due to pulmonary and/ or encephalopathic etilology, extubated 07/09/18 but restrained and not following commands, will follow trends in mental and respiratory status, d/w at the bedside 07/19/18, placement @ [facility] pending documented stabilization on sdu x 6 hours 6.) Arrythmia - will interrogate icd to see if any evidence of afib, so far there is no documented afib on telemetry i am aware of, d/w nurse will f/u icd interrogation (2) Cardiomyopathy Qualifiers: Cardiomyopathy type: viral Qualified Code(s): B33.24 - Viral cardiomyopathy (6) Respiratory failure Qualifiers: Chronicity: acute Respiratory failure complication: hypoxia Qualified Code(s ): J96.01 - Acute respiratory failure with hypoxia
--- NOTE | 2018-07-21 13:36 | P.PNIM ---
Subjective Interval history: Family at bedside. Patient remains encephalopathic, reportedly was agitated some yesterday and has required restraints. Reportedly the patient has been picking at a sore in his mouth, but refuses examination even with assistance from family. Family also concerned about pressure sores on the patient's feet, discussed booties with RN. Physical Exam Vital signs: Vital Signs 07/20/18 18:24 07/20/18 20:00 07/20/18 20:37 Temperature 97.9 F Pulse Rate 91 H 82 Respiratory Rate 18 Blood Pressure 131/59 L Pulse Oximetry 97 96 07/21/18 00:17 07/21/18 02:29 07/21/18 04:39 Temperature 97.7 F 96.8 F L Pulse Rate 76 81 Respiratory Rate 18 18 18 Blood Pressure 112/58 L 125/58 L Pulse Oximetry 96 96 07/21/18 08:00 Temperature 97.5 F L Pulse Rate 85 Respiratory Rate 18 Blood Pressure 116/57 L Pulse Oximetry 97 Intake & Output 07/20/18 07/21/18 07/21/18 18:59 06:59 18:59 Intake Total 2300 / 2300 100 / 100 1250 / 1250 Output Total 1000 / 1000 Balance 2300 / 2300 -900 / -900 1250 / 1250 Weight 132 lb 4.438 oz Intake: IV 1100 / 1100 100 / 100 1000 / 1000 D5W Inj 1,000 ML @ 84 mls/hr IV 1000 / 1000 1000 / 1000 .CONT .[id number] MONICA Rx#:[id number] KCl 20 mEq Premix Inj 20 meq In 100 / 100 100 ml @ 100 mls/hr IV.SIG Q1H MONICA Rx#:[id number] Tube Feeding 1000 / 1000 Water Bolus Amount 200 / 200 250 / 250 Output: Urine 1000 / 1000 Other: Date of Last Bowel Movement 07/20/18 07/20/18 # Bowel Movements 1 Narrative: GENERAL: Well-developed well-nourished. In no acute distress. SKIN: Warm and dry. No lesions noted. HEENT: Patient refuses oral exam CARDIOVASCULAR: Regular rate and rhythm. No murmur appreciated. RESPIRATORY: No accessory muscle use. Clear to auscultation. Breath sounds equal bilaterally. GASTROINTESTINAL: Abdomen thin, PEG tube in place, nontender. MUSCULOSKELETAL: Small pressure sore right plantar foot.. No clubbing or cyanosis. No edema. NEUROLOGICAL: Awake and alert. Does not follow commands. Moves upper and lower extremities spontaneously. Nonverbal. - Urinary Catheter Management Indwelling Urethral Catheter Cath placed during this visit: yes Urethral indwelling: Yes Reason for continuing: Acute urinary retention Insertion date: 06/20/18 Insertion time: 21:24 3-way Urethral Cath placed during this visit: yes Reason for continuing: Acute urinary retention Insertion date: 07/06/18 Insertion time: 18:00 Results - Labs CBC & Chem 7: 07/19/18 05:12 07/21/18 04:46 Laboratory Results - last 24 hr 07/20/18 07/20/18 07/21/18 15:29 20:06 00:33 Sodium Potassium Chloride Carbon Dioxide Anion Gap BUN Creatinine Estimated GFR POC Glucose 238 H 134 H 348 H Random Glucose Calcium 07/21/18 07/21/18 07/21/18 04:12 04:46 08:02 Sodium 136 Potassium 3.5 Chloride 99 Carbon Dioxide 26.5 Anion Gap 11 BUN 17 Creatinine 0.97 Estimated GFR 76 L POC Glucose 180 H 170 H Random Glucose 129 H Calcium 8.0 L 07/21/18 11:38 Sodium Potassium Chloride Carbon Dioxide Anion Gap BUN Creatinine Estimated GFR POC Glucose 251 H Random Glucose Calcium - Procedures intubation/ cardiac cath. Assessment and Plan - Plan S/P Acute Resp failure Resolved. Extubated 07/09 Continue nebulized treatments Systolic CHF Implanted defibrillator Exacerbation has been stabilized baseline EF is 20% Continue beta-ana, ENA inhibitor, and diuretic. Lasix transitioned to p.o. Cardiology following Staph aureus pneumonia Treatment completed UTI Fevers Resolved Rocephin changed to Ciprofloxacin End date of treatment is 07/27/18, for now Atrial fibrillation Rate controlled Follow on telemetry Parameters for cardiac meds. NSTEMI Nonobstructive CAD on heart cath with cardiology Cardiology following Continue beta-ana Continue statin Encephalopathy Per neurology, suspected hypoxic metabolic encephalopathy Seroquel has not been effective. We will consult psychiatry for assistance with management of intermittent agitation Dysphagia status post PEG placement Speech therapy following, last recommends 07/20 to keep patient n.p.o. Thrombocytopenia Monitor PAD aspirin continued COPD No exacerbation Continue nebulized therepies LFT Elevation LFTs stable, slightly decreased from previous labs Trial of holding statin 1 week Diabetes mellitus Follow blood sugars Insulin Sliding Scale Decubitus ulcer Wound care saw and evaluated patient, recommendations for Santyl daily Dietary following, also made aware of wounds Continue specialty mattress, no cotton on mattress surface, turn every 2 hours. DVT Prophylaxis Lovenox
[2018-07-22] MEDS: Insulin NovoLOG Aspart Correctional Sugar Inj SQ SCH ×6 (01:20→17:30)
[2018-07-22] MEDS: LORazepam 0.5 MG Tablet PO PRN ×3 (02:37→20:17)
[2018-07-22] MEDS: Baclofen 10 MG Tablet PO SCH ×4 (05:27→23:45)
[2018-07-22] MEDS: Dextrose 5% in Water Inj 1,000 ML IV.CONT SCH ×2 (05:31→17:30)
[2018-07-22] MEDS: Hypromellose 0.3% Opth Gel 10 GM Bottle EACH EYE SCH ×2 (08:30→20:24)
[2018-07-22] MEDS: Brimonidine 0.15% Opth Drops 5 ML Bottle EACH EYE SCH ×2 (08:30→20:24)
[2018-07-22] MEDS: Spironolactone 25 MG Tablet PO SCH ×2 (08:47→17:31)
[2018-07-22] MEDS: Carvedilol 6.25 MG Tablet PO SCH ×2 (08:47→20:16)
[2018-07-22] MEDS: Lisinopril 5 MG Tablet PO SCH (08:47)
[2018-07-22] MEDS: Enoxaparin Inj 40 MG/0.4 ML Syringe SQ SCH (08:48)
[2018-07-22] MEDS: Collagenase Oint 30 GM Tube TOPICAL SCH (11:22)
--- NOTE | 2018-07-22 12:14 | P.PNCA ---
Subjective Interval history: asleep in nad Physical Exam Vital signs: Vital Signs 07/21/18 16:00 07/21/18 19:04 07/21/18 20:00 Temperature 97.5 F L 97.8 F Pulse Rate 73 81 87 Respiratory Rate 18 20 Blood Pressure 122/59 L 149/63 H Pulse Oximetry 100 98 07/22/18 00:00 07/22/18 00:10 07/22/18 04:00 Temperature 97.8 F 98 F Pulse Rate 80 81 81 Respiratory Rate 20 20 Blood Pressure 114/59 L 131/71 Pulse Oximetry 98 93 L Intake & Output 07/21/18 07/22/18 07/22/18 18:59 06:59 18:59 Intake Total 1500 / 1500 2631 / 2631 Output Total 788 / 788 Balance 1500 / 1500 1843 / 1843 Weight 57.4 kg Intake: IV 1000 / 1000 1000 / 1000 D5W Inj 1,000 ML @ 84 mls/hr IV 1000 / 1000 1000 / 1000 .CONT .[id number] [facility] Rx#:[id number] Oral 0 / 0 Tube Feeding 1231 / 1231 Water Bolus Amount 500 / 500 400 / 400 Output: Gastric Drainage 788 / 788 Gastrostomy Tube (PEG) 788 / 788 Other: # Voids 3 # Incontinent Voids 5 Date of Last Bowel Movement 07/20/18 # Incontinent Bowel Movements 2 - Urinary Catheter Management Indwelling Urethral Catheter Cath placed during this visit: yes Urethral indwelling: Yes Reason for continuing: Acute urinary retention Insertion date: 06/20/18 Insertion time: 21:24 3-way Urethral Cath placed during this visit: yes Reason for continuing: Acute urinary retention Insertion date: 07/06/18 Insertion time: 18:00 Assessment and Plan - Assessment (1) Cardiomyopathy Code(s): I42.9 - Cardiomyopathy, unspecified Status: Acute (2) Cardiomyopathy Code(s): I42.9 - Cardiomyopathy, unspecified Status: Acute (3) PVD (peripheral vascular disease) Code(s): I73.9 - Peripheral vascular disease, unspecified Status: Acute (4) PVD (peripheral vascular disease) Code(s): I73.9 - Peripheral vascular disease, unspecified Status: Acute (5) Tobacco abuse Code(s): Z72.0 - Tobacco use Status: Acute (6) Respiratory failure Code(s): J96.90 - Respiratory failure, unspecified, unspecified whether with hypoxia or hypercapnia Status: Acute (7) Non-ST elevated myocardial infarction (non-STEMI) Code(s): I21.4 - Non-ST elevation (NSTEMI) myocardial infarction Status: Acute (8) Pulmonary edema cardiac cause Code(s): I50.1 - Left ventricular failure, unspecified Status: Acute - Plan 1.) NICM - end stage, euvolemic, refuses in state transfer, requesting transfer to [facility], d/w Dr Solis; beta ana and hellen held due to hypotension, diuresing to optimize potential extubation, he has hypernatremia, dc lopressor, start coreg 6.25 bmg bid and aldactone 25 mg po bid, continue lisinopril 2.5 mg qd, f/u bmp, bnp in am 2.) CAD - nonobstructive, continue aspirin, pravachol 3.) Encephalopathy - moderate per EEG on sedation, neuro following, has purposeful behavior beginning 07/16/18, still confused, s/p peg 4.) d/w case with at the bedside 07/04/18 5.) Respiratory failure - he is euvolemic, appears to be due to pulmonary and/ or encephalopathic etilology, extubated 07/09/18 but restrained and not following commands, will follow trends in mental and respiratory status, d/w at the bedside 07/19/18, placement @ [facility] pending documented stabilization on sdu x 6 hours 6.) Arrythmia - will interrogate icd, [employer], to see if any evidence of afib, d/w Dr Gallardo, so far there is no documented afib on telemetry i am aware of, d/w nurse will f/u icd interrogation (2) Cardiomyopathy Qualifiers: Qualified Code(s): B33.24 - Viral cardiomyopathy (6) Respiratory failure Qualifiers: Qualified Code(s): J96.01 - Acute respiratory failure with hypoxia
--- NOTE | 2018-07-22 12:22 | P.PNIM ---
Subjective Interval history: at bedside. Patient remains encephalopathic, is nonverbal at time of evaluation. Per patient's he does speak to her at times calls her by name and asked to for assistance to go to the bathroom appropriately. Patient's believes he is getting better each day and was happy that he was able to visit to recognize his son who came to visit him yesterday Physical Exam Vital signs: Vital Signs 07/21/18 16:00 07/21/18 19:04 07/21/18 20:00 Temperature 97.5 F L 97.8 F Pulse Rate 73 81 87 Respiratory Rate 18 20 Blood Pressure 122/59 L 149/63 H Pulse Oximetry 100 98 07/22/18 00:00 07/22/18 00:10 07/22/18 04:00 Temperature 97.8 F 98 F Pulse Rate 80 81 81 Respiratory Rate 20 20 Blood Pressure 114/59 L 131/71 Pulse Oximetry 98 93 L Intake & Output 07/21/18 07/22/18 07/22/18 18:59 06:59 18:59 Intake Total 1500 / 1500 2631 / 2631 Output Total 788 / 788 Balance 1500 / 1500 1843 / 1843 Weight 57.4 kg Intake: IV 1000 / 1000 1000 / 1000 D5W Inj 1,000 ML @ 84 mls/hr IV 1000 / 1000 1000 / 1000 .CONT .[id number] [facility] Rx#:[id number] Oral 0 / 0 Tube Feeding 1231 / 1231 Water Bolus Amount 500 / 500 400 / 400 Output: Gastric Drainage 788 / 788 Gastrostomy Tube (PEG) 788 / 788 Other: # Voids 3 # Incontinent Voids 5 Date of Last Bowel Movement 07/20/18 # Incontinent Bowel Movements 2 Narrative: GENERAL: Well-developed well-nourished. In no acute distress. SKIN: Warm and dry. No lesions noted. HEENT: Patient refuses oral exam CARDIOVASCULAR: Regular rate and rhythm. No murmur appreciated. RESPIRATORY: No accessory muscle use. Clear to auscultation. Breath sounds equal bilaterally. GASTROINTESTINAL: Abdomen thin, PEG tube in place, nontender. MUSCULOSKELETAL: Small pressure sore right plantar foot.. No clubbing or cyanosis. No edema. NEUROLOGICAL: Awake and alert. Does not follow commands. Moves upper and lower extremities spontaneously. Nonverbal. - Urinary Catheter Management Indwelling Urethral Catheter Cath placed during this visit: yes Urethral indwelling: Yes Reason for continuing: Acute urinary retention Insertion date: 06/20/18 Insertion time: 21:24 3-way Urethral Cath placed during this visit: yes Reason for continuing: Acute urinary retention Insertion date: 07/06/18 Insertion time: 18:00 Results - Labs CBC & Chem 7: 07/19/18 05:12 07/21/18 04:46 Laboratory Results - last 24 hr 07/21/18 07/21/18 07/22/18 16:48 21:24 05:29 POC Glucose 172 H 209 H 208 H 07/22/18 07/22/18 07:24 11:33 POC Glucose 209 H 167 H - Procedures intubation/ cardiac cath. Assessment and Plan - Plan S/P Acute Resp failure Resolved. Extubated 07/09 Continue nebulized treatments Systolic CHF Implanted defibrillator Exacerbation has been stabilized baseline EF is 20% Continue beta-ana, ENA inhibitor, and diuretic. Lasix transitioned to p.o. Cardiology following Staph aureus pneumonia Treatment completed UTI Fevers Resolved Rocephin changed to Ciprofloxacin End date of treatment is 07/27/18, for now Per patient's appears painful for patient to urinate will recheck urinalysis Atrial fibrillation Rate controlled Follow on telemetry Parameters for cardiac meds. Interrogate ICD for underlying rhythm evaluation, patient being followed by cardiology Dr. Noonan NSTEMI Nonobstructive CAD on heart cath with cardiology Cardiology following Continue beta-ana Continue statin Encephalopathy Per neurology, suspected hypoxic metabolic encephalopathy EEG 07/12 showing generalized encephalopathy Seroquel has not been effective. We will consult psychiatry for assistance with management of intermittent agitation Psych consult pending Dysphagia status post PEG placement Speech therapy following, last recommends 07/20 to keep patient n.p.o. Thrombocytopenia Monitor PAD aspirin continued COPD No exacerbation Continue nebulized therepies LFT Elevation LFTs stable, slightly decreased from previous labs Trial of holding statin 1 week Diabetes mellitus Follow blood sugars Insulin Sliding Scale Blood glucose running high we will change Jevity tube feeding to Glucerna Decubitus ulcer Wound care saw and evaluated patient, recommendations for Santyl daily Dietary following, also made aware of wounds Continue specialty mattress, no cotton on mattress surface, turn every 2 hours. DVT Prophylaxis Lovenox Case discussed with supervising physician Dr. Gallardo
[2018-07-22 12:53] LABS: Bilirubin,Urine Negative (Negative); Clarity,Urine Clear (Clear); Color,Urine Yellow (Yellw/Straw); Glucose,Urine (UA) Negative (Negative); Leukocyte Esterase,Urine Small (Negative); Nitrite,Urine Negative (Negative); Specific Gravity,Urine 1.004 (1.002-1.035)
--- NOTE | 2018-07-22 13:06 | P.CONPSY ---
Provisional Diagnosis Admission Date: June 20, 2018 22:52 Denhoff I.: Psychological and behavioral factors associated with disease or disorders classified elsewhere, encephalopathy History of Present Illness Service: Psychiatry Consult date: 07/22/18 Reason for Consult: Encephalopatic, agitated yesterday, required restraints Primary Care Provider: UNKNOWN Chief Complaint: Chest pain, shortness of breath History of Present Illness: Patient is a 73-year-old man, , has 4 children, with no formal past psychiatric history, with a past medical history significant for CHF, COPD , diabetes, was admitted to the medical service for respiratory failure, NSTEMI , cardiomyopathy and peripheral vascular disease, currently encephalopathic, noted to be agitated episodically and required restraints. As per chart patient had been requiring restraints at times, initially had been started on quetiapine 25 mg p.o. twice daily was discontinued as patient's had expressed the patient had been too somnolent with his medications along with Lorazepam as needed. Discussion nursing staff reported the patient has been restraints at times, has been receiving Ativan 0.5 mg p.o. at bedtime and noticed that patient would get excited when would visit. Patient is mostly nonverbal, during interview, was seen at bedside with who reported that patient usually is a good spirits and less agitated when family members are present when she is visiting. She also mentions that the patient would also become more active when wanting to go to the restroom, but aware that patient has difficulty with expressing needs due to current symptomatology. Attempts were made to have patient engage in interview but patient continued to look back at and despite encouragement for to have patient engage patient continued to refuse to respond. Review of Systems unobtainable due to mental status PMFSH - History History Provided By: Patient, Family Member, Medical Record - Medical History Medical History: Medical History (Last Reviewed 07/20/18 @ 09:23 by Bambi Newman) BPH (benign prostatic hyperplasia) CHF (congestive heart failure) COPD (chronic obstructive pulmonary disease) Cardiac defibrillator in place Chronic bronchitis GERD (gastroesophageal reflux disease) Glaucoma Hypertension Neuropathy PVD (peripheral vascular disease) Pacemaker Surgical history unknown Type 2 diabetes mellitus - Family History Family History: Family History (Last Reviewed 07/20/18 @ 09:23 by Bambi Newman) Other Diabetes Heart disease - Tobacco History Second Hand Smoke Exposure: Yes Tobacco Use In Past 30 Days: Yes Smoking Status: Heavy tobacco smoker Tobacco Type: Cigarettes Packs Per Day: 1 - Alcohol History How Often Do You Have a Drink Containing Alcohol: 2 to 4 times a month - Substance Use History Substance History: No History of Abuse - Travel History Recent Travel in the [place] Within the Last 8 Weeks: Yes Recent Travel Out of the Country Within the Last 8 Weeks: No - Immunization History Tetanus Immunization: Unable to Assess Hx Influenza Vaccine This Season: Unable to Assess Medications and Allergies Active Medications: Active Medications Acetaminophen (Tylenol Liq) 650 mg NG/OG Q6H PRN PRN Reason: Pain 3-5 or fever Last Admin: 07/22/18 05:56 Dose: 650 mg Al Hydroxide/Mg Hydroxide (Milk Of Magnesia Liq) 30 ml PO Q12H PRN PRN Reason: Mild Constipation Albuterol (Duoneb Neb (Prn)) 1 ampul NEB Q4HR NEB PRN PRN Reason: SHORTNESS OF BREATH/WHEEZING Last Admin: 07/14/18 00:23 Dose: 1 ampul Artificial Tears (Genteal Severe Dry Eye Relief 0.3% Opth Gel) 1 drops EACH EYE BID [facility] Last Admin: 07/22/18 08:30 Dose: 1 drops Aspirin (Aspirin Chew) 162 mg PO DAILY [facility] Last Admin: 07/22/18 08:46 Dose: 162 mg Baclofen (Lioresal) 10 mg PO Q8HR [facility] Last Admin: 07/22/18 05:27 Dose: 10 mg Bisacodyl (Dulcolax Supp) 10 mg RECTAL DAILY PRN PRN Reason: SEVERE CONSITIPATION Bisacodyl (Dulcolax Supp) 10 mg RECTAL DAILY [facility] Last Admin: 07/19/18 11:11 Dose: Not Given Brimonidine Tartrate (Alphagan P 0.15% Opth Drops) 1 drops EACH EYE BID [facility] Last Admin: 07/22/18 08:30 Dose: 1 drops Carvedilol (Coreg) 6.25 mg PO BID [facility] Last Admin: 07/22/18 08:47 Dose: 6.25 mg Ciprofloxacin (Cipro Liq) 500 mg G-TUBE BID [facility] Stop: 07/27/18 23:55 Last Admin: 07/22/18 08:30 Dose: 500 mg Collagenase (Santyl Oint) 1 applicatio TOPICAL DAILY [facility] Last Admin: 07/22/18 11:22 Dose: 1 applicatio Dextrose (D50w Vial) 50 ml IV.PUSH UNSCH PRN PRN Reason: PER HYPOGLYCEMIA PROTOCOL Last Admin: 07/12/18 04:25 Dose: 50 ml Enoxaparin Sodium (Lovenox Inj) 40 mg SQ DAILY [facility] Last Admin: 07/22/18 08:48 Dose: 40 mg Furosemide (Lasix) 40 mg PO DAILY [facility] Last Admin: 07/19/18 11:11 Dose: Not Given Glucagon (Glucagon Inj) 1 mg OTHER PRN PRN PRN Reason: for Hypoglycemia Protocol Hydralazine HCl (Apresoline Inj) 10 mg IV.PUSH Q4H PRN PRN Reason: SBP>160, DBP>90 Sodium Chloride (Ns Inj) 500 mls @ 0 mls/hr IV.SIG BOLUS [facility] Last Infusion: 07/10/18 17:28 Dose: Infused Dextrose (D5w Inj) 1,000 mls @ 84 mls/hr IV.CONT .[id number] [facility] Last Admin: 07/22/18 05:31 Dose: 84 mls/hr Insulin Aspart (Novolog Insulin Correctional Sugar Inj) 0 unit SQ Q4HR [facility]; Protocol Last Admin: 07/22/18 12:14 Dose: 100 unit Insulin Detemir (Levemir Inj) 5 unit SQ [facility] Last Admin: 07/14/18 21:24 Dose: Not Given Lactulose (Lactulose Liq) 30 ml PO DAILY PRN PRN Reason: SEVERE CONSITIPATION Lactulose (Lactulose Liq) 30 ml NG/OG DAILY [facility] Last Admin: 07/22/18 11:22 Dose: Not Given Lansoprazole (Prevacid Solutab) 30 mg NG/OG DAILY [facility] Last Admin: 07/22/18 08:47 Dose: 30 mg Lisinopril (Prinivil) 2.5 mg PO DAILY [facility] Last Admin: 07/22/18 08:47 Dose: 2.5 mg Lorazepam (Ativan) 0.5 mg PO Q6H PRN PRN Reason: AGITATION Last Admin: 07/22/18 02:37 Dose: 0.5 mg Lorazepam (Ativan Inj) 0.5 mg IV.PUSH Q6H PRN PRN Reason: agitation if unable to take po Last Admin: 07/14/18 21:25 Dose: 0.5 mg Lorazepam (Ativan) 0.5 mg PO HS PRN PRN Reason: INSOMNIA Last Admin: 07/21/18 21:31 Dose: 0.5 mg Miscellaneous (Pill Splitter) 1 each OTHER UNSCH PRN PRN Reason: SEE LABEL COMMENTS Pravastatin Sodium (Pravachol) 40 mg PO DAILY@1800 [facility] Last Admin: 07/20/18 17:55 Dose: 40 mg Quetiapine Fumarate (Seroquel) 25 mg NG/OG BID@0900,1200 [facility] Last Admin: 07/19/18 12:22 Dose: 25 mg Senna/Docusate Sodium (Gisell-Colace) 1 tab PO BID [facility] Last Admin: 07/19/18 11:12 Dose: Not Given Sennosides (Senokot) 17.2 mg PO Q12H PRN PRN Reason: Moderate Constipation Sodium Chloride (Ns Flush) 2 ml IV.FLUSH BID [facility] Last Admin: 07/22/18 11:22 Dose: Not Given Sodium Chloride (Ns Flush) 2 ml IV.FLUSH PRN PRN PRN Reason: FLUSH AFTER USING IV ACCESS Spironolactone (Aldactone) 25 mg PO BID@0900,1800 [facility] Last Admin: 07/22/18 08:47 Dose: 25 mg Sterile Water (Free Water) 200 ml G-TUBE Q6HR [facility] Last Admin: 07/22/18 11:22 Dose: 200 ml Terbutaline Sulfate (Brethine Inj) 1 mg SQ ONCE PRN PRN Reason: Extravasation Allergies Allergy/AdvReac Type Severity Reaction Status Date / Time bee venom protein (honey bee) Allergy Difficulty Verified 06/20/18 22:04 [Bee sting] Breathing hydromorphone Allergy Nausea/Vomi Verified 06/20/18 22:04 ting pregabalin [From Lyrica] Allergy Anaphylaxis Verified 06/20/18 22:04 Home Medications Medication Instructions Recorded Confirmed Type aspirin 81 mg PO DAILY 06/20/18 06/20/18 History baclofen 20 mg PO TID 06/20/18 06/20/18 History brimonidine 1 drp OPHTHALMIC (EYE) TID 06/20/18 06/20/18 History cilostazol 50 mg PO BID 06/20/18 06/20/18 History gabapentin 300 mg PO TID 06/20/18 06/20/18 History metformin 1,000 mg PO BID 06/20/18 06/20/18 History omeprazole 20 mg PO DAILY 06/20/18 06/20/18 History simvastatin 20 mg PO QPM 06/20/18 06/20/18 History sitagliptin [Januvia] 100 mg PO DAILY 06/20/18 06/20/18 History umeclidinium-vilanterol [Anoro 1 inh INHALATION Q24H 06/21/18 06/21/18 History Ellipta] Exam Vital signs: Vital Signs 07/21/18 16:00 07/21/18 19:04 07/21/18 20:00 Temperature 97.5 F L 97.8 F Pulse Rate 73 81 87 Respiratory Rate 18 20 Blood Pressure 122/59 L 149/63 H Pulse Oximetry 100 98 07/22/18 00:00 07/22/18 00:10 07/22/18 04:00 Temperature 97.8 F 98 F Pulse Rate 80 81 81 Respiratory Rate 20 20 Blood Pressure 114/59 L 131/71 Pulse Oximetry 98 93 L 07/22/18 08:00 07/22/18 12:00 Temperature 97.2 F L 97.2 F L Pulse Rate 69 69 Respiratory Rate 17 17 Blood Pressure 113/58 L 114/87 Pulse Oximetry 100 100 Intake & Output 07/21/18 07/22/18 07/22/18 18:59 06:59 18:59 Intake Total 1500 / 1500 2631 / 2631 Output Total 788 / 788 Balance 1500 / 1500 1843 / 1843 Weight 57.4 kg Intake: IV 1000 / 1000 1000 / 1000 D5W Inj 1,000 ML @ 84 mls/hr IV 1000 / 1000 1000 / 1000 .CONT .[id number] [facility] Rx#:[id number] Oral 0 / 0 Tube Feeding 1231 / 1231 Water Bolus Amount 500 / 500 400 / 400 Output: Gastric Drainage 788 / 788 Gastrostomy Tube (PEG) 788 / 788 Other: # Voids 3 # Incontinent Voids 5 Date of Last Bowel Movement 07/20/18 07/22/18 # Incontinent Bowel Movements 2 Narrative: Patient noted to be soft restraints, no signs of tremor or EPS. - Constitutional no acute distress Mental Status Examination Appearance: Disheveled, Other (Soft restraints) Consciousness: Clouded Motor Activity: Other (Not formally assessed this patient currently lying hospital bed) Speech: Other (Patient nonverbal during interview) Language: Other (Unable to assess as patient did not engage in interview) Attention and Concentration: Easily distracted Mood: Other (Unable to assess as patient did not engage in interview) Affect: Blunt Thought Process & Associations: Other ([place]) Thought Content: Other (Unable to assess as patient did not engage in interview) Hallucination Type: Other (Unable to assess as patient did not engage in interview) Delusion Type: Other (Unable to assess as patient did not engage in interview) Insight: Poor Judgment: Poor Assessment and Plan - Assessment (1) Psychological and behavioral factors associated with disorders or diseases classified elsewhere Code(s): F54 - Psychological and behavioral factors associated with disorders or diseases classified elsewhere Status: Acute (2) Encephalopathy Code(s): G93.40 - Encephalopathy, unspecified Status: Acute - Plan Plan: Estimated LOS: [] days Patient is a 73 y/o man, , domiciled with , with no formal past psychiatric history, past medical history of CHF, COPD, DM, recently admitted for respiratory failure, non STEMI, cardiomyopathy and PVD, who was had episodic agitation requiring restraints in the context of suspected hypoxic encephalopathy which psychiatry was consulted for evaluation. Patient had responded to quetiapine but as per report felt patient was too sedated along with lorazepam as needed. Recommend quetiapine 12.5 mg PO BID with upward titration as needed, monitor for sedation and orthostatic hypotension. Continue lorazepam 0.5mg PO q12hrs as needed for agitation. Recommendations discussed with . Will continue to follow. Consult appreciated. Justification for Continued Inpatient Stay: At risk for further decompensation at lower level of care.
[2018-07-22] MEDS: QUEtiapine 25 MG Tablet PO SCH (20:16)
[2018-07-23] MEDS: Insulin NovoLOG Aspart Correctional Sugar Inj SQ SCH ×7 (01:22→21:45)
[2018-07-23] MEDS: LORazepam 0.5 MG Tablet PO PRN (05:23)
[2018-07-23] MEDS: Baclofen 10 MG Tablet PO SCH ×3 (05:23→21:46)
[2018-07-23] MEDS: Dextrose 5% in Water Inj 1,000 ML IV.CONT SCH ×3 (05:31→19:39)
[2018-07-23 06:52] LABS: Baso % (Auto) 0.6 % (0.0-2.0); Eos # (Auto) 0.1 th/mm3 (0.0-0.4); Eos % (Auto) 1.7 % (0.0-4.0); Hematocrit 32.8 % (39.0-51.0); Lymph # (Auto) 1.1 th/mm3 (1.0-4.8); Lymph % (Auto) 29.2 % (9.0-44.0); Mean Corpuscular HGB Conc 33.7 % (32.0-36.0); Mean Corpuscular Hemoglobin 30.9 pg (27.0-34.0); Mean Corpuscular Volume 91.9 fL (80.0-100.0); Mean Platelet Volume 11.1 fL (7.0-11.0); Mono # (Auto) 0.5 th/mm3 (0.0-0.9); Mono % (Auto) 12.3 % (0.0-8.0); Neut # (Auto) 2.2 th/mm3 (1.8-7.7); Neut % (Auto) 56.2 % (16.0-70.0); Platelet Count 87 th/mm3 (150-450); Red Blood Count 3.57 mil/mm3 (4.50-5.90); Red Cell Distribution Width 15.6 % (11.6-17.2); White Blood Count 3.8 th/mm3 (4.0-11.0)
[2018-07-23 07:46] LABS: Anion Gap 5 meq/L (5-15); Calcium 7.8 mg/dL (8.5-10.1); Carbon Dioxide 33.2 meq/L (21.0-32.0); Chloride 99 meq/L (98-107); Glomerular Filtration Rate Greater Than 89 mL/min (>89); Glucose,Random 138 mg/dL (74-106); Potassium 3.4 meq/L (3.5-5.1); Sodium 137 meq/L (136-145)
[2018-07-23 07:53] LABS: Blood Urea Nitrogen 16 mg/dL (7-18)
[2018-07-23 09:05] LABS: Platelet Morphology Normal (Normal)
[2018-07-23] MEDS: QUEtiapine 25 MG Tablet PO SCH ×2 (09:22→21:45)
[2018-07-23] MEDS: Carvedilol 6.25 MG Tablet PO SCH ×2 (09:22→21:46)
[2018-07-23] MEDS: Lisinopril 5 MG Tablet PO SCH (09:23)
[2018-07-23] MEDS: Enoxaparin Inj 40 MG/0.4 ML Syringe SQ SCH (09:29)
--- NOTE | 2018-07-23 11:37 | P.PN ---
Subjective Interval history: Follow-up visit for encephalopathy, UTI, diarrhea. Patient was seen and examined in bed with physical therapist assisting at bedside as well as and daughter present. reports patient did well over the weekend and seemed to "perk up" when being visited by family members. reports that she felt as though patient remembers these family members and was more interactive during this visit. Ongoing liquid stools reported by nurse, lactulose held this morning. Physical Exam Vital signs: Vital Signs 07/22/18 12:00 07/22/18 16:00 07/22/18 20:00 Temperature 97.2 F L 97.9 F 98.5 F Pulse Rate 69 64 89 Respiratory Rate 17 17 20 Blood Pressure 114/87 125/60 124/63 Pulse Oximetry 100 100 99 07/23/18 00:00 07/23/18 04:00 07/23/18 08:00 Temperature 97.7 F 97.7 F 98.2 F Pulse Rate 76 74 82 Respiratory Rate 20 20 18 Blood Pressure 126/58 L 111/55 L 129/80 Pulse Oximetry 100 100 90 L Intake & Output 07/22/18 07/23/18 07/23/18 18:59 06:59 18:59 Intake Total 1250 / 1250 2165 / 2165 Balance 1250 / 1250 2165 / 2165 Weight 54.9 kg Intake: IV 1000 / 1000 1000 / 1000 D5W Inj 1,000 ML @ 84 mls/hr IV 1000 / 1000 1000 / 1000 .CONT .[id number] [facility] Rx#:[id number] Oral 0 / 0 Tube Feeding 765 / 765 Water Bolus Amount 250 / 250 400 / 400 Other: # Voids 8 6 Date of Last Bowel Movement 07/22/18 07/23/18 # Bowel Movements 8 4 Narrative: GENERAL: Well-developed well-nourished. In no acute distress, appears restless. SKIN: Warm and dry. No lesions noted. HEENT: Moist, pink mucous membranes. CARDIOVASCULAR: Regular rate and rhythm. No murmur appreciated. RESPIRATORY: No accessory muscle use. Clear to auscultation. Breath sounds equal bilaterally. GASTROINTESTINAL: Abdomen thin, PEG tube in place, nontender. MUSCULOSKELETAL: Small pressure sore right plantar foot.. No clubbing or cyanosis. No edema. NEUROLOGICAL: Awake and alert. Does not follow commands. Moves upper and lower extremities spontaneously. Nonverbal. - Urinary Catheter Management Indwelling Urethral Catheter Cath placed during this visit: yes Urethral indwelling: Yes Reason for continuing: Acute urinary retention Insertion date: 06/20/18 Insertion time: 21:24 3-way Urethral Cath placed during this visit: yes Reason for continuing: Acute urinary retention Insertion date: 07/06/18 Insertion time: 18:00 Results - Labs CBC & Chem 7: 07/23/18 05:43 07/23/18 05:43 Laboratory Results - last 24 hr 07/22/18 07/22/18 07/23/18 10:22 16:27 01:13 WBC RBC Hgb Hct MCV MCH MCHC RDW Plt Count MPV Prelim Diff (Auto) Neut % (Auto) Lymph % (Auto) [place] % (Auto) Eos % (Auto) Baso % (Auto) Neut # (Auto) Lymph # (Auto) [place] # (Auto) Eos # (Auto) Baso # (Auto) WBC Differential Diff Scan Differential Comment Platelet Estimate Platelet Morphology Sodium Potassium Chloride Carbon Dioxide Anion Gap BUN Creatinine Estimated GFR POC Glucose 176 H 226 H Random Glucose Calcium Urine Color Yellow Urine Clarity Clear Urine pH 7.0 Ur Specific [place] 1.004 Urine Protein Negative Urine Glucose (UA) Negative Urine Ketones Negative Urine Occult Blood Small H Urine Nitrate Negative Urine Bilirubin Negative Urine Urobilinogen Less than 2 Ur Leukocyte Esterase Small H Urine RBC 1 Urine WBC 5 Micro UA Comment Culture not ind Ur Microscopic Review Not Reportable Urine Culture Comments Culture not ind 07/23/18 07/23/18 07/23/18 05:29 05:43 05:43 WBC 3.8 L RBC 3.57 L Hgb 11.0 L Hct 32.8 L MCV 91.9 MCH 30.9 MCHC 33.7 RDW 15.6 Plt Count 87 L MPV 11.1 H Prelim Diff (Auto) Slide review pending Neut % (Auto) 56.2 Lymph % (Auto) 29.2 [place] % (Auto) 12.3 H Eos % (Auto) 1.7 Baso % (Auto) 0.6 Neut # (Auto) 2.2 Lymph # (Auto) 1.1 [place] # (Auto) 0.5 Eos # (Auto) 0.1 Baso # (Auto) 0.0 WBC Differential . Diff Scan Auto diff confirmed Differential Comment . Platelet Estimate Low L Platelet Morphology Normal Sodium 137 Potassium 3.4 L Chloride 99 Carbon Dioxide 33.2 H Anion Gap 5 BUN 16 Creatinine 0.79 Estimated GFR Greater than 89 POC Glucose 132 H Random Glucose 138 H Calcium 7.8 L Urine Color Urine Clarity Urine pH Ur Specific [place] Urine Protein Urine Glucose (UA) Urine Ketones Urine Occult Blood Urine Nitrate Urine Bilirubin Urine Urobilinogen Ur Leukocyte Esterase Urine RBC Urine WBC Micro UA Comment Ur Microscopic Review Urine Culture Comments 07/23/18 07:45 WBC RBC Hgb Hct MCV MCH MCHC RDW Plt Count MPV Prelim Diff (Auto) Neut % (Auto) Lymph % (Auto) [place] % (Auto) Eos % (Auto) Baso % (Auto) Neut # (Auto) Lymph # (Auto) [place] # (Auto) Eos # (Auto) Baso # (Auto) WBC Differential Diff Scan Differential Comment Platelet Estimate Platelet Morphology Sodium Potassium Chloride Carbon Dioxide Anion Gap BUN Creatinine Estimated GFR POC Glucose 230 H Random Glucose Calcium Urine Color Urine Clarity Urine pH Ur Specific [place] Urine Protein Urine Glucose (UA) Urine Ketones Urine Occult Blood Urine Nitrate Urine Bilirubin Urine Urobilinogen Ur Leukocyte Esterase Urine RBC Urine WBC Micro UA Comment Ur Microscopic Review Urine Culture Comments - Procedures intubation/ cardiac cath. Assessment and Plan - Plan Acute Resp failure Resolved extubated 07/09 Continue nebulized treatments Acute systolic CHF exacerbation Implanted defibrillator Has been stabilized baseline EF is 20% Continue beta-ana, lisinopril decreased to 2.5 milligrams, Lasix on hold. Cardiology following Staph aureus pneumonia Treatment completed UTI Fevers Resolved Rocephin changed to Ciprofloxacin End date of treatment is 07/27/18, for now Repeat UA negative Atrial fibrillation Rate controlled Follow on telemetry -EKG from 06/20 with Abhi khanna with RVR -AICD interrogated in June with noted nonsustained V. tach. Pending interrogation once again NSTEMI Cardiology following Continue beta-ana Continue statin FIDE Follow renal function Follow urine output Avoid nephrotoxins Encephalopathy -Patient seen and evaluated by psychiatry who recommended Seroquel 12.5 mg twice daily. Bedtime dose of Ativan for insomnia. -Consult Dr. Arreaga, neuropsychology for further recommendations, appreciate assistance. Dysphagia status post PEG placement Speech therapy following, last no recommends to keep patient n.p.o. Hypernatremia Hypokalemia Hypokalemia likely secondary to ongoing diarrhea, hold stool softeners, C. difficile negative, add fiber to tube feeds. Thrombocytopenia Monitor PAD aspirin and statin continued COPD No exacerbation Continue nebulized therepies LFT Elevation LFTs stable, slightly decreased from previous labs Hyperglycemia Follow blood sugars Insulin Sliding Scale Diarrhea C. difficile negative Continue IV fluids Patient on multiple laxatives as well as suppositories, hold until diarrhea resolves Decubitus ulcer -Wound care saw and evaluated patient once again, recommendations for Santyl daily -Dietary following also made aware of wounds -Continue specialty mattress, no cotton on mattress surface, no be found patient , turn every 2 hours. DVT Prophylaxis Lovenox Discussed Condition With: Discussed with , daughter, RN, Discharge Planning: Patient has been turned down by [facility] as well as hospital in [place] which had chosen. event sales manager assisting with jail facility placement in [place].
[2018-07-23] MEDS: Spironolactone 25 MG Tablet PO SCH ×2 (12:39→19:39)
[2018-07-23] MEDS: Hypromellose 0.3% Opth Gel 10 GM Bottle EACH EYE SCH ×2 (12:43→21:47)
[2018-07-23] MEDS: Brimonidine 0.15% Opth Drops 5 ML Bottle EACH EYE SCH ×2 (12:44→21:47)
[2018-07-23] MEDS ORDERED: Potassium Chloride 25 MEQ Effervescent Tablet PO ONE (14:47)
--- NOTE | 2018-07-23 14:49 | P.PNCA ---
Subjective Interval history: alert in nad Physical Exam Vital signs: Vital Signs 07/22/18 16:00 07/22/18 20:00 07/23/18 00:00 Temperature 97.9 F 98.5 F 97.7 F Pulse Rate 64 89 76 Respiratory Rate 17 20 20 Blood Pressure 125/60 124/63 126/58 L Pulse Oximetry 100 99 100 07/23/18 04:00 07/23/18 08:00 07/23/18 12:00 Temperature 97.7 F 98.2 F 98.2 F Pulse Rate 74 82 74 Respiratory Rate 20 18 18 Blood Pressure 111/55 L 129/80 103/55 L Pulse Oximetry 100 90 L 90 L Intake & Output 07/22/18 07/23/18 07/23/18 18:59 06:59 18:59 Intake Total 1250 / 1250 2165 / 2165 1000 / 1000 Balance 1250 / 1250 2165 / 2165 1000 / 1000 Weight 54.9 kg Intake: IV 1000 / 1000 1000 / 1000 1000 / 1000 D5W Inj 1,000 ML @ 84 mls/hr IV 1000 / 1000 1000 / 1000 1000 / 1000 .CONT .[id number] [facility] Rx#:[id number] Oral 0 / 0 Tube Feeding 765 / 765 Water Bolus Amount 250 / 250 400 / 400 Other: # Voids 8 6 Date of Last Bowel Movement 07/22/18 07/23/18 # Bowel Movements 8 4 - Urinary Catheter Management Indwelling Urethral Catheter Cath placed during this visit: yes Urethral indwelling: Yes Reason for continuing: Acute urinary retention Insertion date: 06/20/18 Insertion time: 21:24 3-way Urethral Cath placed during this visit: yes Reason for continuing: Acute urinary retention Insertion date: 07/06/18 Insertion time: 18:00 Assessment and Plan - Assessment (1) Cardiomyopathy Code(s): I42.9 - Cardiomyopathy, unspecified Status: Acute (2) Cardiomyopathy Code(s): I42.9 - Cardiomyopathy, unspecified Status: Acute (3) PVD (peripheral vascular disease) Code(s): I73.9 - Peripheral vascular disease, unspecified Status: Acute (4) PVD (peripheral vascular disease) Code(s): I73.9 - Peripheral vascular disease, unspecified Status: Acute (5) Tobacco abuse Code(s): Z72.0 - Tobacco use Status: Acute (6) Respiratory failure Code(s): J96.90 - Respiratory failure, unspecified, unspecified whether with hypoxia or hypercapnia Status: Acute (7) Non-ST elevated myocardial infarction (non-STEMI) Code(s): I21.4 - Non-ST elevation (NSTEMI) myocardial infarction Status: Acute (8) Pulmonary edema cardiac cause Code(s): I50.1 - Left ventricular failure, unspecified Status: Acute - Plan 1.) NICM - end stage, euvolemic, refuses in state transfer, requesting transfer to [facility], d/w Dr Solis; beta ana and hellen held due to hypotension, diuresing to optimize potential extubation, he has hypernatremia, dc lopressor, start coreg 6.25 bmg bid and aldactone 25 mg po bid, continue lisinopril 2.5 mg qd, f/u bmp, bnp in am 2.) CAD - nonobstructive, continue aspirin, pravachol 3.) Encephalopathy - moderate per EEG on sedation, neuro following, has purposeful behavior beginning 07/16/18, still confused, s/p peg 4.) d/w case with at the bedside 07/04/18 5.) Respiratory failure - he is euvolemic, appears to be due to pulmonary and/ or encephalopathic etilology, extubated 07/09/18 but restrained and not following commands, will follow trends in mental and respiratory status, d/w at the bedside 07/19/18, placement @ [facility] pending documented stabilization on sdu x 6 hours 6.) Arrythmia - no afib on interrogation of icd, [employer], no documented afib on telemetry i am aware of, d/w nurse and Dr Gallardo (2) Cardiomyopathy Qualifiers: Cardiomyopathy type: viral Qualified Code(s): B33.24 - Viral cardiomyopathy (6) Respiratory failure Qualifiers: Chronicity: acute Respiratory failure complication: hypoxia Qualified Code(s ): J96.01 - Acute respiratory failure with hypoxia
[2018-07-23] MEDS: Collagenase Oint 30 GM Tube TOPICAL SCH (19:38)
[2018-07-24] MEDS: Insulin NovoLOG Aspart Correctional Sugar Inj SQ SCH ×6 (00:28→21:16)
[2018-07-24] MEDS: Dextrose 5% in Water Inj 1,000 ML IV.CONT SCH ×3 (00:31→17:36)
[2018-07-24] MEDS: Baclofen 10 MG Tablet PO SCH ×3 (05:50→21:17)
[2018-07-24 07:01] LABS: Calcium 8.1 mg/dL (8.5-10.1); Carbon Dioxide 28.3 meq/L (21.0-32.0)
[2018-07-24 07:07] LABS: Potassium 4.3 meq/L (3.5-5.1)
[2018-07-24] MEDS: Enoxaparin Inj 40 MG/0.4 ML Syringe SQ SCH (09:33)
[2018-07-24] MEDS: Hypromellose 0.3% Opth Gel 10 GM Bottle EACH EYE SCH ×2 (09:33→21:18)
[2018-07-24] MEDS: Carvedilol 6.25 MG Tablet PO SCH ×2 (09:34→21:17)
[2018-07-24] MEDS: Lisinopril 5 MG Tablet PO SCH (09:35)
[2018-07-24] MEDS: QUEtiapine 25 MG Tablet PO SCH ×2 (09:36→21:16)
[2018-07-24] MEDS: Collagenase Oint 30 GM Tube TOPICAL SCH (09:36)
[2018-07-24] MEDS: Brimonidine 0.15% Opth Drops 5 ML Bottle EACH EYE SCH ×2 (09:37→21:18)
[2018-07-24] MEDS: Spironolactone 25 MG Tablet PO SCH ×2 (09:38→17:36)
--- NOTE | 2018-07-24 10:54 | P.PNIM ---
Subjective Interval history: Sleepy, given Seroquel and restraints. Physical Exam Vital signs: Vital Signs 07/23/18 12:00 07/23/18 16:00 07/23/18 20:00 Temperature 98.2 F 97.5 F L 97.6 F Pulse Rate 74 74 77 Respiratory Rate 18 18 22 Blood Pressure 103/55 L 123/58 L 130/60 Pulse Oximetry 90 L 97 99 07/24/18 00:00 07/24/18 04:00 Temperature 97.4 F L 97.8 F Pulse Rate 85 82 Respiratory Rate 20 20 Blood Pressure 120/58 L 122/58 L Pulse Oximetry 94 L 96 Intake & Output 07/23/18 07/24/18 07/24/18 18:59 06:59 18:59 Intake Total 999 Balance 999 Weight 56.4 kg Intake: IV 999 D5W Inj 1,000 ML @ 84 mls/hr IV 999 .CONT .[id number] [facility] Rx#:[id number] Oral 0 / 0 0 / 0 Other: # Voids 3 # Incontinent Voids 2 Date of Last Bowel Movement 07/23/18 07/24/18 # Bowel Movements 6 0 Narrative: GENERAL: Well-developed well-nourished. In no acute distress, appears restless. SKIN: Warm and dry. No lesions noted. CARDIOVASCULAR: Regular rate and rhythm. RESPIRATORY: No accessory muscle use. Clear to auscultation. Breath sounds equal bilaterally. GASTROINTESTINAL: Abdomen thin, PEG tube in place, nontender. MUSCULOSKELETAL: Small pressure sore right plantar foot.. No clubbing or cyanosis. No edema. NEUROLOGICAL: Sleepy and sedated does not follow commands. Nonverbal. - Urinary Catheter Management Indwelling Urethral Catheter Cath placed during this visit: yes Urethral indwelling: Yes Reason for continuing: Acute urinary retention Insertion date: 06/20/18 Insertion time: 21:24 3-way Urethral Cath placed during this visit: yes Reason for continuing: Acute urinary retention Insertion date: 07/06/18 Insertion time: 18:00 Results - Labs CBC & Chem 7: 07/23/18 05:43 07/24/18 04:39 Laboratory Results - last 24 hr 07/23/18 07/23/18 07/23/18 12:07 17:34 20:08 Sodium Potassium Chloride Carbon Dioxide Anion Gap BUN Creatinine Estimated GFR POC Glucose 230 H 102 152 H Random Glucose Calcium 07/24/18 07/24/18 07/24/18 00:17 04:12 04:39 Sodium 136 Potassium 4.3 D Chloride 98 Carbon Dioxide 28.3 Anion Gap 10 BUN 17 Creatinine 0.89 Estimated GFR 84 L POC Glucose 228 H 237 H Random Glucose 235 H Calcium 8.1 L 07/24/18 07:09 Sodium Potassium Chloride Carbon Dioxide Anion Gap BUN Creatinine Estimated GFR POC Glucose 178 H Random Glucose Calcium - Procedures intubation/ cardiac cath. Assessment and Plan - Plan Acute Resp failurecurrently 96% on room air Resolved extubated 07/09 Continue nebulized treatments Acute systolic CHF exacerbation Implanted defibrillator Has been stabilized baseline EF is 20% Continue beta-ana, lisinopril decreased to 2.5 milligrams, Lasix on hold. Cardiology following Staph aureus pneumonia Treatment completed UTI Fevers Resolved Rocephin changed to Ciprofloxacin End date of treatment is 07/27/18, for now Repeat UA negative Atrial fibrillation Rate controlled Follow on telemetry -EKG from 06/20 with Abhi khanna with RVR -AICD interrogated in June with noted nonsustained V. tach. NSTEMI Cardiology following Continue beta-ana Continue statin FIDE Follow renal function Follow urine output Avoid nephrotoxins Lasix currently on hold Encephalopathy -Patient seen and evaluated by psychiatry who recommended Seroquel 12.5 mg twice daily. Bedtime dose of Ativan for insomnia. -Consult Dr. Arreaga, neuropsychology for further recommendations, appreciate assistance. Dysphagia status post PEG placement Speech therapy following, last no recommends to keep patient n.p.o. Thrombocytopenia Monitor PAD aspirin and statin continued COPD No exacerbation Continue nebulized therepies LFT Elevation LFTs stable, slightly decreased from previous labs Hyperglycemia Follow blood sugars Insulin Sliding Scale Diarrheaimproved and resolving C. difficile negative Continue IV fluids Patient on multiple laxatives as well as suppositories, hold until diarrhea resolves Decubitus ulcer -Wound care saw and evaluated patient once again, recommendations for Santyl daily -Dietary following also made aware of wounds -Continue specialty mattress, no cotton on mattress surface, no be found patient , turn every 2 hours. DVT Prophylaxis Lovenox Palliative care currently following, at the healthcare proxy continues somewhat aggressive treatment despite poor prognosis with hypoxic encephalopathy and cardiomyopathy Discharge Planning: Awaiting SNF placement, [facility] has declined patient.
[2018-07-24] MEDS ORDERED: Fluconazole 100 MG Tablet G-TUBE ONE (10:55)
--- NOTE | 2018-07-24 11:33 | P.NPEVAL ---
Patient History - Record/History Review Reason for Referral: The patient is a 73 year old unknown handed male who was initially admitted to [facility] on 06/20/2018 for viral cardiomyopathy. On admission, he was SOB and hypoxic, and was intubated. He was diagnosed with pulmonary edema, Afib , CHF and COPD. He is now encephalopathic, agitated and requiring restraints. He has been seen by psychiatry. He is referred for baseline neurobehavioral status examination to assess cognitive, behavioral and emotional aspects of the injury and to provide treatment recommendations. [facility] - History History Provided By: Patient, Family Member, Medical Record - Medical History Medical History: Medical History (Last Reviewed 07/20/18 @ 09:23 by Bambi Newman) BPH (benign prostatic hyperplasia) CHF (congestive heart failure) COPD (chronic obstructive pulmonary disease) Cardiac defibrillator in place Chronic bronchitis GERD (gastroesophageal reflux disease) Glaucoma Hypertension Neuropathy PVD (peripheral vascular disease) Pacemaker Surgical history unknown Type 2 diabetes mellitus - Family History Family History: Family History (Last Reviewed 07/20/18 @ 09:23 by Bambi Newman) Other Diabetes Heart disease - Tobacco History Second Hand Smoke Exposure: Yes Tobacco Use In Past 30 Days: Yes Smoking Status: Heavy tobacco smoker Tobacco Type: Cigarettes Packs Per Day: 1 - Alcohol History How Often Do You Have a Drink Containing Alcohol: 2 to 4 times a month - Substance Use History Substance History: No History of Abuse - Travel History Recent Travel in the [place] Within the Last 8 Weeks: Yes Recent Travel Out of the Country Within the Last 8 Weeks: No - Immunization History Tetanus Immunization: Unable to Assess Hx Influenza Vaccine This Season: Unable to Assess Medications Active Medications Acetaminophen (Tylenol Liq) 650 mg NG/OG Q6H PRN PRN Reason: Pain 3-5 or fever Last Admin: 07/24/18 09:32 Dose: 650 mg Al Hydroxide/Mg Hydroxide (Milk Of Magnesia Liq) 30 ml PO Q12H PRN PRN Reason: Mild Constipation Albuterol (Duoneb Neb (Prn)) 1 ampul NEB Q4HR NEB PRN PRN Reason: SHORTNESS OF BREATH/WHEEZING Last Admin: 07/14/18 00:23 Dose: 1 ampul Artificial Tears (Genteal Severe Dry Eye Relief 0.3% Opth Gel) 1 drops EACH EYE BID MONICA Last Admin: 07/24/18 09:33 Dose: 1 drops Aspirin (Aspirin Chew) 162 mg PO DAILY [facility] Last Admin: 07/24/18 09:36 Dose: 162 mg Baclofen (Lioresal) 10 mg PO Q8HR [facility] Last Admin: 07/24/18 05:50 Dose: 10 mg Bisacodyl (Dulcolax Supp) 10 mg RECTAL DAILY PRN PRN Reason: SEVERE CONSITIPATION Bisacodyl (Dulcolax Supp) 10 mg RECTAL DAILY [facility] Last Admin: 07/19/18 11:11 Dose: Not Given Brimonidine Tartrate (Alphagan P 0.15% Opth Drops) 1 drops EACH EYE BID [facility] Last Admin: 07/24/18 09:37 Dose: 1 drops Carvedilol (Coreg) 6.25 mg PO BID [facility] Last Admin: 07/24/18 09:34 Dose: Not Given Ciprofloxacin (Cipro Liq) 500 mg G-TUBE BID [facility] Stop: 07/27/18 23:55 Last Admin: 07/24/18 09:37 Dose: 500 mg Collagenase (Santyl Oint) 1 applicatio TOPICAL DAILY [facility] Last Admin: 07/24/18 09:36 Dose: 1 applicatio Dextrose (D50w Vial) 50 ml IV.PUSH UNSCH PRN PRN Reason: PER HYPOGLYCEMIA PROTOCOL Last Admin: 07/12/18 04:25 Dose: 50 ml Enoxaparin Sodium (Lovenox Inj) 40 mg SQ DAILY [facility] Last Admin: 07/24/18 09:33 Dose: 40 mg Furosemide (Lasix) 40 mg PO DAILY [facility] Last Admin: 07/19/18 11:11 Dose: Not Given Glucagon (Glucagon Inj) 1 mg OTHER PRN PRN PRN Reason: for Hypoglycemia Protocol Hydralazine HCl (Apresoline Inj) 10 mg IV.PUSH Q4H PRN PRN Reason: SBP>160, DBP>90 Sodium Chloride (Ns Inj) 500 mls @ 0 mls/hr IV.SIG BOLUS [facility] Last Infusion: 07/10/18 17:28 Dose: Infused Dextrose (D5w Inj) 1,000 mls @ 84 mls/hr IV.CONT .[id number] [facility] Last Admin: 07/24/18 05:55 Dose: Not Given Insulin Aspart (Novolog Insulin Correctional Sugar Inj) 0 unit SQ Q4HR [facility]; Protocol Last Admin: 07/24/18 09:32 Dose: 5 unit Insulin Detemir (Levemir Inj) 5 unit SQ HS [facility] Last Admin: 07/14/18 21:24 Dose: Not Given Lactulose (Lactulose Liq) 30 ml PO DAILY PRN PRN Reason: SEVERE CONSITIPATION Lactulose (Lactulose Liq) 30 ml NG/OG DAILY [facility] Last Admin: 07/23/18 09:29 Dose: 30 ml Lansoprazole (Prevacid Solutab) 30 mg NG/OG DAILY [facility] Last Admin: 07/24/18 09:36 Dose: 30 mg Lisinopril (Prinivil) 2.5 mg PO DAILY [facility] Last Admin: 07/24/18 09:35 Dose: Not Given Lorazepam (Ativan Inj) 0.5 mg IV.PUSH Q6H PRN PRN Reason: agitation if unable to take po Last Admin: 07/14/18 21:25 Dose: 0.5 mg Lorazepam (Ativan) 0.5 mg PO HS PRN PRN Reason: INSOMNIA Last Admin: 07/22/18 20:17 Dose: 0.5 mg Lorazepam (Ativan) 0.5 mg PO Q12H PRN PRN Reason: AGITATION Last Admin: 07/23/18 05:23 Dose: 0.5 mg Miscellaneous (Pill Splitter) 1 each OTHER UNSCH PRN PRN Reason: SEE LABEL COMMENTS Pravastatin Sodium (Pravachol) 40 mg PO DAILY@1800 [facility] Last Admin: 07/20/18 17:55 Dose: 40 mg Quetiapine Fumarate (Seroquel) 25 mg NG/OG BID@0900,1200 [facility] Last Admin: 07/19/18 12:22 Dose: 25 mg Quetiapine Fumarate (Seroquel) 12.5 mg PO BID [facility] Last Admin: 07/24/18 09:36 Dose: 12.5 mg Senna/Docusate Sodium (Gisell-Colace) 1 tab PO BID [facility] Last Admin: 07/19/18 11:12 Dose: Not Given Sennosides (Senokot) 17.2 mg PO Q12H PRN PRN Reason: Moderate Constipation Sodium Chloride (Ns Flush) 2 ml IV.FLUSH BID [facility] Last Admin: 07/24/18 09:38 Dose: Not Given Sodium Chloride (Ns Flush) 2 ml IV.FLUSH PRN PRN PRN Reason: FLUSH AFTER USING IV ACCESS Spironolactone (Aldactone) 25 mg PO BID@0900,1800 [facility] Last Admin: 07/24/18 09:38 Dose: 25 mg Sterile Water (Free Water) 200 ml G-TUBE Q6HR [facility] Last Admin: 07/24/18 05:55 Dose: 200 ml Terbutaline Sulfate (Brethine Inj) 1 mg SQ ONCE PRN PRN Reason: Extravasation Mental Status Assessment - Mental Status Orientation: oriented to: Self, disoriented to: Place, Time, Situation Mental Status: Impaired: Thought processing, Language/interactions, Attention, Learning/memory, Problem-solving Absent: Hallucinations, Delusions Adjustment/Coping Assessment - Adjustment/Coping Adjustment/Coping: Severe: Awareness, Insight - Observation In terms of emotional functioning, the patient demonstrated significant challenges. This patient demonstrated signs of agitation, impulsivity and disinhibition, and he was in two-point restraints. It was unable to be determined if there was remarkable evidence of a formal thought disorder or psychosis. Thought content appeared free from suicidal, homicidal or paranoid ideation, and thought processes were bradyprhenic. The patients mood was apathetic, and his affect was apathetic. The patient appears to possess impaired insight and awareness into their situation and within the limits of this brief evaluation, impaired judgment. - Goals/Team Members LTG Status: Deferred STG Status: Deferred Team Members: Neuropsychologist Behavior - Behavior Agitation: Moderate Treatment Engagement: No effort - Observation Behaviorally, the patient demonstrated signs of agitation, impulsivity and disinhibition. There was no remarkable evidence of a formal thought disorder or psychosis. 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 Maximizing Acute Care Outcome: There are several recommendations/suggestions presented in order to maximize an optimal therapeutic outcome. First, consider adding Valproic Acid 250 BID as an adjunct to Seroquel, with the goal of eventually weaning him from Seroquel entirely. The is concerned that Seroquel is making him too sedated, which may or may not be the case. Second, please consider d/c'ing Ativan and any other benzo because these medications tend to make elderly patients with compromised neuropsychological functions worse. Rather, encourage normal sleep- wake cycles, and augment this encouragement with either Trazodone or melatonin. It would be nice to get him out of two-point restraints. Consider ordering a [place] Bed to facilitate agitation management. I would be happy to provide education to the family, staff etc., if you choose this route. I have had excellent results from a neurobehavioral management standpoint with [place] Beds. Consider no vitals at night to also facilitate sleep-wake cycle. Have PT/OT work with patient during the day as tolerated, with the goal of keeping him up during the day, sleeping at night. I will also order the Agitated Behavior Scale in order to monitor his agitation, and effectiveness of pharmacological intervention. At this point in the recovery process, the patient does not have cognitive capacity as the patient is unable to understand a situation and its likely consequences, nor is the patient able to manipulate information rationally. Cognitive capacity will be assessed throughout the recovery process. - Discharge Planning Anticipated Problems: Ongoing areas of concern will include behavioral impulsivity, lack of insight and judgment, which is expected to improve with time and treatment. Treatment Plan: This clinician will continue to follow with you throughout the course of this patients acute care treatment, and I will be available to meet with the patient s family/support system to facilitate their understanding and the ongoing care of their family member. The goals of neuropsychological intervention shall be both educational and supportive to the family/support system as is deemed clinically appropriate. Thank you for the opportunity to assist in this patients care. Stuart Arreaga, Ph.D., ABPP Board Certified in Clinical Neuropsychology [place] [employer] Professional [employer] [place] Licensed Psychologist #[id number]
--- NOTE | 2018-07-24 13:44 | P.PNCA ---
Subjective Interval history: restrained in nad Physical Exam Vital signs: Vital Signs 07/23/18 16:00 07/23/18 20:00 07/24/18 00:00 Temperature 97.5 F L 97.6 F 97.4 F L Pulse Rate 74 77 85 Respiratory Rate 18 22 20 Blood Pressure 123/58 L 130/60 120/58 L Pulse Oximetry 97 99 94 L 07/24/18 04:00 Temperature 97.8 F Pulse Rate 82 Respiratory Rate 20 Blood Pressure 122/58 L Pulse Oximetry 96 Intake & Output 07/23/18 07/24/18 07/24/18 18:59 06:59 18:59 Intake Total 1000 / 999 Balance 1000 999 Weight 56.4 kg Intake: IV 999 D5W Inj 1,000 ML @ 84 mls/hr IV 999 / 999 .CONT .[id number] [facility] Rx#:[id number] Oral 0 / 0 0 / 0 Other: # Voids 3 # Incontinent Voids 2 Date of Last Bowel Movement 07/23/18 07/24/18 # Bowel Movements 6 0 - Urinary Catheter Management Indwelling Urethral Catheter Cath placed during this visit: yes Urethral indwelling: Yes Reason for continuing: Acute urinary retention Insertion date: 06/20/18 Insertion time: 21:24 3-way Urethral Cath placed during this visit: yes Reason for continuing: Acute urinary retention Insertion date: 07/06/18 Insertion time: 18:00 Assessment and Plan - Assessment (1) Cardiomyopathy Code(s): I42.9 - Cardiomyopathy, unspecified Status: Acute (2) Cardiomyopathy Code(s): I42.9 - Cardiomyopathy, unspecified Status: Acute (3) PVD (peripheral vascular disease) Code(s): I73.9 - Peripheral vascular disease, unspecified Status: Acute (4) PVD (peripheral vascular disease) Code(s): I73.9 - Peripheral vascular disease, unspecified Status: Acute (5) Tobacco abuse Code(s): Z72.0 - Tobacco use Status: Acute (6) Respiratory failure Code(s): J96.90 - Respiratory failure, unspecified, unspecified whether with hypoxia or hypercapnia Status: Acute (7) Non-ST elevated myocardial infarction (non-STEMI) Code(s): I21.4 - Non-ST elevation (NSTEMI) myocardial infarction Status: Acute (8) Pulmonary edema cardiac cause Code(s): I50.1 - Left ventricular failure, unspecified Status: Acute - Plan 1.) NICM - end stage, euvolemic, refuses in state transfer, requesting transfer to [facility], d/w Dr Solis; beta ana and hellen held due to hypotension, diuresing to optimize potential extubation, he has hypernatremia, dc lopressor, start coreg 6.25 bmg bid and aldactone 25 mg po bid, continue lisinopril 2.5 mg qd, f/u bmp, bnp in am 2.) CAD - nonobstructive, continue aspirin, pravachol 3.) Encephalopathy - moderate per EEG on sedation, neuro following, has purposeful behavior beginning 07/16/18, still confused, s/p peg 4.) d/w case with at the bedside 07/04/18 5.) Respiratory failure - he is euvolemic, appears to be due to pulmonary and/ or encephalopathic etilology, extubated 07/09/18 but restrained and not following commands, will follow trends in mental and respiratory status, d/w at the bedside 07/19/18, placement @ [facility] pending documented stabilization on sdu x 6 hours 6.) Arrythmia - no afib on interrogation of icd, [employer], no documented afib on telemetry i am aware of, ekg from 06/20/18 reviewed, there is artifact, can not determine if this is nsr with pacs and can not r/o atrial fib , I advised patients to start coumadin or noac due to [id number] score = 4 to lower risk for life threatening or further debilitating cva, she understands and is undecided, will continue aspirin, d/w Dr Mahoney (2) Cardiomyopathy Qualifiers: Cardiomyopathy type: viral Qualified Code(s): B33.24 - Viral cardiomyopathy (6) Respiratory failure Qualifiers: Chronicity: acute Respiratory failure complication: hypoxia Qualified Code(s ): J96.01 - Acute respiratory failure with hypoxia
[2018-07-25] MEDS: Insulin NovoLOG Aspart Correctional Sugar Inj SQ SCH ×6 (00:15→22:53)
[2018-07-25] MEDS: Dextrose 5% in Water Inj 1,000 ML IV.CONT SCH ×3 (01:38→17:53)
[2018-07-25] MEDS: Baclofen 10 MG Tablet PO SCH ×3 (05:07→22:47)
--- NOTE | 2018-07-25 08:39 | P.PNNPSY ---
- Progress Notes/Response to Treatment Contents of Sessions: Adjustment, Level of consciousness Time with Patient: 15 minutes Premorbid Psychological Status: Premorbid Cognitive, Emotional and Behavioral Status: Stable. 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 The patient has no prior psychiatric difficulties, as described above. Substance abuse history is unremarkable. Behavioral Reactions of Patient and Family/Support System: Deferred. The patients family is experiencing ongoing issues of adjustment given the nature of the injury, and this aspect of recovery will require ongoing monitoring. Emotional/Behavioral Status of Patient and Family/Support System: Deferred. Pertinent issues, if appropriate to this patients clinical care, are described in detail above. Maximizing Acute Care Outcome: There are several recommendations/suggestions presented in order to maximize an optimal therapeutic outcome. First, consider adding Valproic Acid 250 BID as an adjunct to Seroquel, with the goal of eventually weaning him from Seroquel entirely. The is concerned that Seroquel is making him too sedated, which may or may not be the case. Second, please consider d/c'ing Ativan and any other benzo because these medications tend to make elderly patients with compromised neuropsychological functions worse. Rather, encourage normal sleep- wake cycles, and augment this encouragement with either Trazodone or melatonin. It would be nice to get him out of two-point restraints. Consider ordering a [place] Bed to facilitate agitation management. I would be happy to provide education to the family, staff etc., if you choose this route. I have had excellent results from a neurobehavioral management standpoint with Nenzel Beds. Consider no vitals at night to also facilitate sleep-wake cycle. Have PT/OT work with patient during the day as tolerated, with the goal of keeping him up during the day, sleeping at night. I will also order the Agitated Behavior Scale in order to monitor his agitation, and effectiveness of pharmacological intervention. At this point in the recovery process, the patient does not have cognitive capacity as the patient is unable to understand a situation and its likely consequences, nor is the patient able to manipulate information rationally. Cognitive capacity will be assessed throughout the recovery process. Anticipated Problems: Ongoing areas of concern will include behavioral impulsivity, lack of insight and judgment, which is expected to improve with time and treatment. Treatment Plan: This clinician will continue to follow with you throughout the course of this patients acute care treatment, and I will be available to meet with the patient s family/support system to facilitate their understanding and the ongoing care of their family member. The goals of neuropsychological intervention shall be both educational and supportive to the family/support system as is deemed clinically appropriate. 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 Progress Note Narrative: Day 35 of hospitalization. Agitation level is mild, with recent ABS of 19 (22.7 ,14,14). He remains confused, difficult to engage at times. Initial evaluation and report in his chart, completed yesterday. The patient remains in restraints. He was non communicative this morning on exam, awake but lethargic. I will follow. 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
[2018-07-25] MEDS: Spironolactone 25 MG Tablet PO SCH ×2 (09:25→17:54)
[2018-07-25] MEDS: Enoxaparin Inj 40 MG/0.4 ML Syringe SQ SCH (09:25)
[2018-07-25] MEDS: Lisinopril 5 MG Tablet PO SCH (09:27)
[2018-07-25] MEDS: QUEtiapine 25 MG Tablet PO SCH ×2 (09:27→22:47)
[2018-07-25] MEDS: Carvedilol 6.25 MG Tablet PO SCH ×2 (09:28→22:47)
[2018-07-25] MEDS: Hypromellose 0.3% Opth Gel 10 GM Bottle EACH EYE SCH ×2 (09:31→22:48)
[2018-07-25] MEDS: Brimonidine 0.15% Opth Drops 5 ML Bottle EACH EYE SCH (09:31)
[2018-07-25] MEDS: Collagenase Oint 30 GM Tube TOPICAL SCH (09:32)
--- NOTE | 2018-07-25 11:36 | P.PNIM ---
Subjective Interval history: Sleep he does have Seroquel. Still in soft restraints and confused. Physical Exam Vital signs: Vital Signs 07/24/18 12:00 07/24/18 16:00 07/24/18 20:00 Temperature 97.8 F 97.9 F 97.9 F Pulse Rate 71 74 73 Respiratory Rate 18 18 20 Blood Pressure 92/50 L 99/53 L 120/59 L Pulse Oximetry 99 98 99 07/25/18 00:00 07/25/18 04:00 07/25/18 08:00 Temperature 98.2 F 98 F 97.8 F Pulse Rate 84 80 85 Respiratory Rate 20 20 18 Blood Pressure 114/55 L 134/58 L 128/60 Pulse Oximetry 96 97 Intake & Output 07/24/18 07/25/18 07/25/18 18:59 06:59 18:59 Intake Total 1005 / 1005 1000 / 1000 Balance 1005 / 1005 1000 / 1000 Weight 58.2 kg Intake: IV 1000 / 1000 1000 / 1000 D5W Inj 1,000 ML @ 84 mls/hr IV 1000 / 1000 1000 / 1000 .CONT .[id number] Rx#:[id number] Oral 5 / 5 Other: # Incontinent Voids 3 Date of Last Bowel Movement 07/24/18 # Bowel Movements 5 # Incontinent Bowel Movements 1 Narrative: GENERAL: Well-developed well-nourished. In no acute distress, appears restless. CARDIOVASCULAR: Regular rate and rhythm. RESPIRATORY: No accessory muscle use. Clear to auscultation. Breath sounds equal bilaterally. GASTROINTESTINAL: Abdomen thin, PEG tube in place, nontender. MUSCULOSKELETAL: Small pressure sore right plantar foot.. No clubbing or cyanosis. No edema. NEUROLOGICAL: Sleepy and confused, shakes his head when asked questions - Urinary Catheter Management Indwelling Urethral Catheter Cath placed during this visit: yes Urethral indwelling: Yes Reason for continuing: Acute urinary retention Insertion date: 06/20/18 Insertion time: 21:24 3-way Urethral Cath placed during this visit: yes Reason for continuing: Acute urinary retention Insertion date: 07/06/18 Insertion time: 18:00 Results - Labs CBC & Chem 7: 07/23/18 05:43 07/24/18 04:39 Laboratory Results - last 24 hr 07/24/18 07/24/18 07/24/18 11:44 15:00 20:14 POC Glucose 173 H 143 H 225 H 07/25/18 07/25/18 07/25/18 00:35 05:03 07:44 POC Glucose 120 H 268 H 158 H - Procedures intubation/ cardiac cath. Assessment and Plan - Plan Acute Resp failurecurrently 96% on room air Resolved extubated 07/09 Continue nebulized treatments Acute systolic CHF exacerbation Implanted defibrillator Has been stabilized baseline EF is 20% Continue beta-ana, lisinopril decreased to 2.5 milligrams, Lasix on hold. Cardiology following recommending possible anticoagulation due to transient atrial fibrillation, states that she will discuss further with Dr. Noonan today. Staph aureus pneumonia Treatment completed UTI Fevers Resolved Rocephin changed to Ciprofloxacin End date of treatment is 07/27/18, for now Repeat UA negative Atrial fibrillation Rate controlled Follow on telemetry -EKG from 06/20 with Abhi khanna with RVR -AICD interrogated in June with noted nonsustained V. tach. will discuss with Dr. Noonan today to make further decisions continue anticoagulation. NSTEMI Cardiology following Continue beta-ana Continue statin FIDE Follow renal function Follow urine output Avoid nephrotoxins Lasix currently on hold Hypoxic encephalopathy -Patient seen and evaluated by psychiatry who recommended Seroquel 12.5 mg twice daily. Stop bedtime dose of Ativan. Will start Depakote 250 mg p.o. twice daily. Consideration for trazodone pending adjunct Depakote. We will continue to attempt to get patient restraint free. -Consult Dr. Arreaga, neuropsychology for further recommendations, appreciate assistance. Dysphagia status post PEG placement Speech therapy following, last no recommends to keep patient n.p.o. Thrombocytopenia Monitor PAD aspirin and statin continued COPD No exacerbation Continue nebulized therepies LFT Elevation LFTs stable, slightly decreased from previous labs Hyperglycemia Follow blood sugars Insulin Sliding Scale Diarrheaimproved and resolving C. difficile negative Continue IV fluids Patient on multiple laxatives as well as suppositories, hold until diarrhea resolves Decubitus ulcer -Wound care saw and evaluated patient once again, recommendations for Santyl daily -Dietary following also made aware of wounds -Continue specialty mattress, no cotton on mattress surface, no be found patient , turn every 2 hours. DVT Prophylaxis Lovenox Palliative care currently following, at the healthcare proxy continues aggressive treatment despite poor prognosis with hypoxic encephalopathy and cardiomyopathy Discharge Planning: Awaiting SNF placement, [place] [facility] [facility] has declined patient. would like him to return back to [place]. Case management assisting with placement.
--- NOTE | 2018-07-25 12:15 | P.PNCA ---
Subjective Interval history: restrained, asleep in nad Physical Exam Vital signs: Vital Signs 07/24/18 16:00 07/24/18 20:00 07/25/18 00:00 Temperature 97.9 F 97.9 F 98.2 F Pulse Rate 74 73 84 Respiratory Rate 18 20 20 Blood Pressure 99/53 L 120/59 L 114/55 L Pulse Oximetry 98 99 96 07/25/18 04:00 07/25/18 08:00 Temperature 98 F 97.8 F Pulse Rate 80 85 Respiratory Rate 20 18 Blood Pressure 134/58 L 128/60 Pulse Oximetry 97 Intake & Output 07/24/18 07/25/18 07/25/18 18:59 06:59 18:59 Intake Total 1005 / 1005 1000 / 1000 Balance 1005 / 1005 1000 / 1000 Weight 58.2 kg Intake: IV 1000 / 1000 1000 / 1000 D5W Inj 1,000 ML @ 84 mls/hr IV 1000 / 1000 1000 / 1000 .CONT .[id number] [facility] Rx#:[id number] Oral 5 / 5 Other: # Incontinent Voids 3 Date of Last Bowel Movement 07/24/18 # Bowel Movements 5 # Incontinent Bowel Movements 1 - Urinary Catheter Management Indwelling Urethral Catheter Cath placed during this visit: yes Urethral indwelling: Yes Reason for continuing: Acute urinary retention Insertion date: 06/20/18 Insertion time: 21:24 3-way Urethral Cath placed during this visit: yes Reason for continuing: Acute urinary retention Insertion date: 07/06/18 Insertion time: 18:00 Assessment and Plan - Assessment (1) Cardiomyopathy Code(s): I42.9 - Cardiomyopathy, unspecified Status: Acute (2) Cardiomyopathy Code(s): I42.9 - Cardiomyopathy, unspecified Status: Acute (3) PVD (peripheral vascular disease) Code(s): I73.9 - Peripheral vascular disease, unspecified Status: Acute (4) PVD (peripheral vascular disease) Code(s): I73.9 - Peripheral vascular disease, unspecified Status: Acute (5) Tobacco abuse Code(s): Z72.0 - Tobacco use Status: Acute (6) Respiratory failure Code(s): J96.90 - Respiratory failure, unspecified, unspecified whether with hypoxia or hypercapnia Status: Acute (7) Non-ST elevated myocardial infarction (non-STEMI) Code(s): I21.4 - Non-ST elevation (NSTEMI) myocardial infarction Status: Acute (8) Pulmonary edema cardiac cause Code(s): I50.1 - Left ventricular failure, unspecified Status: Acute - Plan 1.) NICM - end stage, euvolemic, refuses in state transfer, requesting transfer to [facility], d/w Dr Solis; beta ana and hellen held due to hypotension, diuresing to optimize potential extubation, he has hypernatremia, dc lopressor, start coreg 6.25 bmg bid and aldactone 25 mg po bid, continue lisinopril 2.5 mg qd, f/u bmp, bnp in am 2.) CAD - nonobstructive, continue aspirin, pravachol 3.) Encephalopathy - moderate per EEG on sedation, neuro following, has purposeful behavior beginning 07/16/18, still confused, s/p peg 4.) d/w case with at the bedside 07/04/18 5.) Respiratory failure - he is euvolemic, appears to be due to pulmonary and/ or encephalopathic etilology, extubated 07/09/18 but restrained and not following commands, will follow trends in mental and respiratory status, d/w at the bedside 07/19/18, placement @ [facility] pending documented stabilization on sdu x 6 hours 6.) Arrythmia - no afib on interrogation of icd, [employer], no documented afib on telemetry i am aware of, ekg from 06/20/18 reviewed, there is artifact, can not determine if this is nsr with pacs and can not r/o atrial fib , I advised patients to start coumadin or noac due to [id number] score = 4 to lower risk for life threatening or further debilitating cva, she understands and is undecided, will continue aspirin, d/w Dr Mahoney (2) Cardiomyopathy Qualifiers: Cardiomyopathy type: viral Qualified Code(s): B33.24 - Viral cardiomyopathy (6) Respiratory failure Qualifiers: Chronicity: acute Respiratory failure complication: hypoxia Qualified Code(s ): J96.01 - Acute respiratory failure with hypoxia
--- NOTE | 2018-07-25 15:55 | P.DIET ---
Nutritional Evaluation Type of nutrition evaluation: follow-up Nutrition consult regarding: Tube Feeding Objective - Diagnosis Hypoxic Respiratory Failure, Pulmonary Edema - Objective [place] body weight: 75.5 kg % IBW: 74 Body Weight Used for Calculations: Actual (55.8kg) Energy Needs - Lower Range (kCal/kg): 38 Energy Needs - Upper Range (kCal/kg): 43 Lower Limit kCal/kg (kCals): 2,120 Upper Limit kCal/kg (kCals): 2,399 Lower Limit Protein Factor (Grams per Kg): 1.4 Upper Limit Protein Factor (Grams per Kg): 1.8 Lower Protein Needs (Protein): 78 Upper Protein Needs (Protein): 100 Dietitian Reviewed in Medical Record: Curent medications, Intake & Output, Labs , Medical history, Tube feeding Diet Order: NPO Speech Therapy Recommendations: Yes (NPO w/ PEG tube feedings. Pt w/severe- profound oropharyngeal dysphagia) Wound Care Note: WOCN dated 07/19: sacrum unstageable, R buttock stage 3 and R foot stage 1 pressure injuries Objective Comments: PMH Includes: BPH, CHF, Cardiac Defibrilator inplace, COPD, GERD, HTN, DM-2, Neuropathy Extubated 07/09; s/p PEG tube placement 07/17 LBM 07/24 Feeding - Current Tube Feeding Tube Feeding Product: Glucerna 1.5 Tube Feeding Rate: 65 Tube Feeding Route: gastrostomy Current kCals Provided by Tube Feedin,340 Current Protein Provided by Tube Feeding (gPRO): 129 Current Free H2O Provided (m/l): 1,184 Assessment Assessment: Pt continues at nutritional risk r/t need for TF'ing, failed swallow eval. and increased needs for wound healing. Current TF'ing of Glucerna 1.5 @ goal rate 65ml/hr adequately meets needs by providing 2340 kcal, 128.7g Protein and 1184 ml free water. Pt may benefit from Trev bid to aid in healing wounds. Labs, wts and clinical course reviewed: CBW = 58.2 kg. Recommendations: Continue Glucerna 1.5 @ 65 mls/hr Please order Trev 1 pack bid Dietitian to Monitor: Lab values, Intake & Output, Tube feeding tolerance, Weight change, Wound/skin status, Swallow recommendations, Medical course
[2018-07-26] MEDS: Baclofen 10 MG Tablet PO SCH ×3 (05:25→21:53)
[2018-07-26] MEDS: Brimonidine 0.15% Opth Drops 5 ML Bottle EACH EYE SCH ×3 (05:26→20:40)
[2018-07-26] MEDS: Insulin NovoLOG Aspart Correctional Sugar Inj SQ SCH ×7 (06:12→23:32)
[2018-07-26] MEDS: Dextrose 5% in Water Inj 1,000 ML IV.CONT SCH ×3 (07:21→17:07)
--- NOTE | 2018-07-26 08:34 | P.PNNPSY ---
- Progress Notes/Response to Treatment Contents of Sessions: Adjustment, Level of consciousness Time with Patient: 15 minutes Premorbid Psychological Status: Premorbid Cognitive, Emotional and Behavioral Status: Stable. 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 The patient has no prior psychiatric difficulties, as described above. Substance abuse history is unremarkable. Behavioral Reactions of Patient and Family/Support System: Deferred. The patients family is experiencing ongoing issues of adjustment given the nature of the injury, and this aspect of recovery will require ongoing monitoring. Emotional/Behavioral Status of Patient and Family/Support System: Deferred. Pertinent issues, if appropriate to this patients clinical care, are described in detail above. Maximizing Acute Care Outcome: There are several recommendations/suggestions presented in order to maximize an optimal therapeutic outcome. First, consider adding Valproic Acid 250 BID as an adjunct to Seroquel, with the goal of eventually weaning him from Seroquel entirely. The is concerned that Seroquel is making him too sedated, which may or may not be the case. Second, please consider d/c'ing Ativan and any other benzo because these medications tend to make elderly patients with compromised neuropsychological functions worse. Rather, encourage normal sleep- wake cycles, and augment this encouragement with either Trazodone or melatonin. It would be nice to get him out of two-point restraints. Consider ordering a [place] Bed to facilitate agitation management. I would be happy to provide education to the family, staff etc., if you choose this route. I have had excellent results from a neurobehavioral management standpoint with [place] Beds. Consider no vitals at night to also facilitate sleep-wake cycle. Have PT/OT work with patient during the day as tolerated, with the goal of keeping him up during the day, sleeping at night. I will also order the Agitated Behavior Scale in order to monitor his agitation, and effectiveness of pharmacological intervention. At this point in the recovery process, the patient does not have cognitive capacity as the patient is unable to understand a situation and its likely consequences, nor is the patient able to manipulate information rationally. Cognitive capacity will be assessed throughout the recovery process. Anticipated Problems: Ongoing areas of concern will include behavioral impulsivity, lack of insight and judgment, which is expected to improve with time and treatment. Treatment Plan: This clinician will continue to follow with you throughout the course of this patients acute care treatment, and I will be available to meet with the patient s family/support system to facilitate their understanding and the ongoing care of their family member. The goals of neuropsychological intervention shall be both educational and supportive to the family/support system as is deemed clinically appropriate. 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 Progress Note Narrative: Day 36 of hospitalization. His agitation has increased slightly from yesterday , now ABS = 21 (26.5,17.5,14), which is mild, fluctuating with mod. Medication changes yesterday to include VPA adjunct at 250 BID. He remains on Seroquel 12. 5 BID. If these ABS scores remain where they are at, consider the other suggestions I have provided to optimize his outcome. I will follow. 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
[2018-07-26] MEDS: Enoxaparin Inj 40 MG/0.4 ML Syringe SQ SCH (09:08)
[2018-07-26] MEDS: Carvedilol 6.25 MG Tablet PO SCH ×2 (09:09→20:39)
[2018-07-26] MEDS: Lisinopril 5 MG Tablet PO SCH (09:10)
[2018-07-26] MEDS: Hypromellose 0.3% Opth Gel 10 GM Bottle EACH EYE SCH ×2 (09:14→20:42)
[2018-07-26] MEDS: QUEtiapine 25 MG Tablet PO SCH ×2 (09:15→20:39)
[2018-07-26] MEDS: Spironolactone 25 MG Tablet PO SCH ×3 (09:53→17:15)
[2018-07-26] MEDS: Collagenase Oint 30 GM Tube TOPICAL SCH (09:57)
--- NOTE | 2018-07-26 11:17 | P.PNIM ---
Subjective Interval history: Sleepy and in restraints. Open eyes to voice Physical Exam Vital signs: Vital Signs 07/25/18 12:00 07/25/18 15:43 07/25/18 20:00 Temperature 97.6 F 97.7 F 98.3 F Pulse Rate 72 78 81 Respiratory Rate 18 17 Blood Pressure 138/63 122/63 123/56 L Pulse Oximetry 97 100 98 07/26/18 00:00 07/26/18 04:00 07/26/18 08:00 Temperature 97 F L 98.3 F 97.5 F L Pulse Rate 68 80 87 Respiratory Rate 20 20 20 Blood Pressure 104/54 L 118/58 L 127/61 Pulse Oximetry 90 L 95 96 Intake & Output 07/25/18 07/26/18 07/26/18 18:59 06:59 18:59 Intake Total 1000 / 1000 Output Total 600 / 600 Balance 400 / 400 Weight 53.9 kg Intake: IV 1000 / 1000 D5W Inj 1,000 ML @ 84 mls/hr IV 1000 / 1000 .CONT .[id number] [facility] Rx#:[id number] Output: Urine 600 / 600 Other: # Voids 4 Date of Last Bowel Movement 07/24/18 07/24/18 # Incontinent Bowel Movements 1 Narrative: GENERAL: Well-developed well-nourished. In no acute distress, sleepy in restraints CARDIOVASCULAR: Regular rate and rhythm. RESPIRATORY: No accessory muscle use. Clear to auscultation. Breath sounds equal bilaterally. GASTROINTESTINAL: Abdomen thin, PEG tube in place, nontender. MUSCULOSKELETAL: . No clubbing or cyanosis. No edema. NEUROLOGICAL: Sleepy and confused - Urinary Catheter Management Indwelling Urethral Catheter Cath placed during this visit: yes Urethral indwelling: Yes Reason for continuing: Acute urinary retention Insertion date: 06/20/18 Insertion time: 21:24 3-way Urethral Cath placed during this visit: yes Reason for continuing: Acute urinary retention Insertion date: 07/06/18 Insertion time: 18:00 Results - Labs CBC & Chem 7: 07/23/18 05:43 07/24/18 04:39 Laboratory Results - last 24 hr 07/25/18 07/25/18 07/26/18 11:47 16:46 06:03 POC Glucose 201 H 177 H 236 H 07/26/18 07:34 POC Glucose 208 H - Procedures intubation/ cardiac cath. Assessment and Plan - Plan Acute Resp failurecurrently 96% on room air Resolved extubated 07/09 Continue nebulized treatments Acute systolic CHF exacerbation Implanted defibrillator Has been stabilized baseline EF is 20% Continue beta-ana, lisinopril decreased to 2.5 milligrams, Lasix on hold. Cardiology following recommending anticoagulation due to transient atrial fibrillation, states that she will discuss further with Dr. Noonan Staph aureus pneumonia Treatment completed UTI Fevers Resolved Rocephin changed to Ciprofloxacin End date of treatment is 07/27/18, for now Repeat UA negative Atrial fibrillation Rate controlled on beta-ana Follow on telemetry -EKG from 06/20 with Abhi khanna with RVR -AICD interrogated in June with noted nonsustained V. tach. will discuss with Dr. Noonan today to make further decisions continue anticoagulation. NSTEMI Cardiology following Continue beta-ana Continue statin FIDE Follow renal function Follow urine output Avoid nephrotoxins Lasix currently on hold Hypoxic encephalopathy -Patient seen and evaluated by psychiatry who recommended Seroquel 12.5 mg twice daily. Stop bedtime dose of Ativan. Continue Depakote 250 mg p.o. twice daily. Consideration for trazodone pending adjunct Depakote. We will continue to attempt to get patient restraint free. -Consult Dr. Arreaga, neuropsychology for further recommendations, appreciate assistance. Dysphagia status post PEG placement Speech therapy following, last no recommends to keep patient n.p.o. Referring Currently on tube feeds Glucerna at 65 mill per hour and added Trev Thrombocytopenia Monitor PAD aspirin and statin continued COPD No exacerbation Continue nebulized therepies LFT Elevation LFTs stable, slightly decreased from previous labs Hyperglycemia Follow blood sugars Insulin Sliding Scale Diarrheaimproved and resolving C. difficile negative Patient on multiple laxatives as well as suppositories currently on hold Decubitus ulcer -Wound care saw and evaluated patient once again, recommendations for Santyl daily -Dietary following also made aware of wounds -Continue specialty mattress, no cotton on mattress surface, no be found patient , turn every 2 hours. DVT Prophylaxis Lovenox Palliative care currently following, at the healthcare proxy continues aggressive treatment Discharge Planning: Awaiting SNF placement, [facility] has declined patient. would like him to return back to [place]. Case management assisting with placement.
--- NOTE | 2018-07-26 12:49 | P.PNCA ---
Subjective Interval history: awake, restrained in nad Physical Exam Vital signs: Vital Signs 07/25/18 15:43 07/25/18 20:00 07/26/18 00:00 Temperature 97.7 F 98.3 F 97 F L Pulse Rate 78 81 68 Respiratory Rate 17 20 Blood Pressure 122/63 123/56 L 104/54 L Pulse Oximetry 100 98 90 L 07/26/18 04:00 07/26/18 08:00 Temperature 98.3 F 97.5 F L Pulse Rate 80 87 Respiratory Rate 20 20 Blood Pressure 118/58 L 127/61 Pulse Oximetry 95 96 Intake & Output 07/25/18 07/26/18 07/26/18 18:59 06:59 18:59 Intake Total 1000 / 1000 Output Total 600 / 600 Balance 400 / 400 Weight 53.9 kg Intake: IV 1000 / 1000 D5W Inj 1,000 ML @ 84 mls/hr IV 1000 / 1000 .CONT .[id number] [facility] Rx#:[id number] Output: Urine 600 / 600 Other: # Voids 4 Date of Last Bowel Movement 07/24/18 07/24/18 # Incontinent Bowel Movements 1 - Urinary Catheter Management Indwelling Urethral Catheter Cath placed during this visit: yes Urethral indwelling: Yes Reason for continuing: Acute urinary retention Insertion date: 06/20/18 Insertion time: 21:24 3-way Urethral Cath placed during this visit: yes Reason for continuing: Acute urinary retention Insertion date: 07/06/18 Insertion time: 18:00 Assessment and Plan - Assessment (1) Cardiomyopathy Code(s): I42.9 - Cardiomyopathy, unspecified Status: Acute (2) Cardiomyopathy Code(s): I42.9 - Cardiomyopathy, unspecified Status: Acute (3) PVD (peripheral vascular disease) Code(s): I73.9 - Peripheral vascular disease, unspecified Status: Acute (4) PVD (peripheral vascular disease) Code(s): I73.9 - Peripheral vascular disease, unspecified Status: Acute (5) Tobacco abuse Code(s): Z72.0 - Tobacco use Status: Acute (6) Respiratory failure Code(s): J96.90 - Respiratory failure, unspecified, unspecified whether with hypoxia or hypercapnia Status: Acute (7) Non-ST elevated myocardial infarction (non-STEMI) Code(s): I21.4 - Non-ST elevation (NSTEMI) myocardial infarction Status: Acute (8) Pulmonary edema cardiac cause Code(s): I50.1 - Left ventricular failure, unspecified Status: Acute - Plan 1.) NICM - end stage, euvolemic, refuses in state transfer, requesting transfer to [facility], d/w Dr Solis; beta ana and hellen held due to hypotension, diuresing to optimize potential extubation, he has hypernatremia, dc lopressor, start coreg 6.25 bmg bid and aldactone 25 mg po bid, continue lisinopril 2.5 mg qd, f/u bmp, bnp in am 2.) CAD - nonobstructive, continue aspirin, pravachol 3.) Encephalopathy - moderate per EEG on sedation, neuro following, has purposeful behavior beginning 07/16/18, still confused, s/p peg 4.) d/w case with at the bedside 07/04/18 5.) Respiratory failure - he is euvolemic, appears to be due to pulmonary and/ or encephalopathic etilology, extubated 07/09/18 but restrained and not following commands, will follow trends in mental and respiratory status, d/w at the bedside 07/19/18, placement @ [facility] pending documented stabilization on sdu x 6 hours 6.) Arrythmia - no afib on interrogation of icd, [employer], no documented afib on telemetry i am aware of, ekg from 06/20/18 reviewed, there is artifact, can not determine if this is nsr with pacs and can not r/o atrial fib , I advised patients again 07/26/18 to start coumadin or noac due to [id number] score = 4 to lower risk for life threatening or further debilitating cva, she understands and is undecided, will continue aspirin, his will d/w Dr Mahoney (2) Cardiomyopathy Qualifiers: Cardiomyopathy type: viral Qualified Code(s): B33.24 - Viral cardiomyopathy (6) Respiratory failure Qualifiers: Chronicity: acute Respiratory failure complication: hypoxia Qualified Code(s ): J96.01 - Acute respiratory failure with hypoxia
[2018-07-26] MEDS: Furosemide 40 MG Tablet PO SCH (14:34)
[2018-07-27] MEDS: Insulin NovoLOG Aspart Correctional Sugar Inj SQ SCH ×5 (03:49→20:00)
[2018-07-27] MEDS: Baclofen 10 MG Tablet PO SCH ×3 (06:11→23:54)
--- NOTE | 2018-07-27 08:12 | P.PNCA ---
Subjective Interval history: asleep, restrained in nad Physical Exam Vital signs: Vital Signs 07/26/18 12:00 07/26/18 20:00 07/27/18 00:00 Temperature 97.3 F L 97.4 F L 97.9 F Pulse Rate 75 78 74 Respiratory Rate 20 18 18 Blood Pressure 122/69 117/59 L 102/53 L Pulse Oximetry 97 92 L 100 07/27/18 04:00 Temperature 97.4 F L Pulse Rate 68 Respiratory Rate 18 Blood Pressure 113/56 L Pulse Oximetry 96 Intake & Output 07/26/18 07/27/18 07/27/18 18:59 06:59 18:59 Intake Total 1000 / 1000 Output Total 1200 / 1200 Balance -200 / -200 Weight 55.7 kg Intake: IV 1000 / 1000 D5W Inj 1,000 ML @ 84 mls/hr IV 1000 / 1000 .CONT .[id number] [facility] Rx#:[id number] Output: Urine 1200 / 1200 Other: # Voids 5 Date of Last Bowel Movement 07/24/18 # Bowel Movements 5 2 - Urinary Catheter Management Indwelling Urethral Catheter Cath placed during this visit: yes Urethral indwelling: Yes Reason for continuing: Acute urinary retention Insertion date: 06/20/18 Insertion time: 21:24 3-way Urethral Cath placed during this visit: yes Reason for continuing: Acute urinary retention Insertion date: 07/06/18 Insertion time: 18:00 Assessment and Plan - Assessment (1) Cardiomyopathy Code(s): I42.9 - Cardiomyopathy, unspecified Status: Acute (2) Cardiomyopathy Code(s): I42.9 - Cardiomyopathy, unspecified Status: Acute (3) PVD (peripheral vascular disease) Code(s): I73.9 - Peripheral vascular disease, unspecified Status: Acute (4) PVD (peripheral vascular disease) Code(s): I73.9 - Peripheral vascular disease, unspecified Status: Acute (5) Tobacco abuse Code(s): Z72.0 - Tobacco use Status: Acute (6) Respiratory failure Code(s): J96.90 - Respiratory failure, unspecified, unspecified whether with hypoxia or hypercapnia Status: Acute (7) Non-ST elevated myocardial infarction (non-STEMI) Code(s): I21.4 - Non-ST elevation (NSTEMI) myocardial infarction Status: Acute (8) Pulmonary edema cardiac cause Code(s): I50.1 - Left ventricular failure, unspecified Status: Acute - Plan 1.) NICM - end stage, euvolemic, refuses in state transfer, requesting transfer to [facility], d/w Dr Solis; beta ana and hellen held due to hypotension, diuresing to optimize potential extubation, he has hypernatremia, dc lopressor, start coreg 6.25 bmg bid and aldactone 25 mg po bid, continue lisinopril 2.5 mg qd, f/u bmp, bnp in am 2.) CAD - nonobstructive, continue aspirin, pravachol 3.) Encephalopathy - moderate per EEG on sedation, neuro following, has purposeful behavior beginning 07/16/18, still confused, s/p peg 4.) d/w case with at the bedside 07/04/18 5.) Respiratory failure - he is euvolemic, appears to be due to pulmonary and/ or encephalopathic etilology, extubated 07/09/18 but restrained and not following commands, will follow trends in mental and respiratory status, d/w at the bedside 07/19/18, placement @ [facility] pending documented stabilization on sdu x 6 hours 6.) Arrythmia - no afib on interrogation of icd, [employer], no documented afib on telemetry i am aware of, ekg from 06/20/18 reviewed, there is artifact, can not determine if this is nsr with pacs and can not r/o atrial fib , I advised patients again 07/26/18 to start coumadin or noac due to [id number] score = 4 to lower risk for life threatening or further debilitating cva, she understands and is undecided, will continue aspirin, his will d/w Dr Mahoney (2) Cardiomyopathy Qualifiers: Cardiomyopathy type: viral Qualified Code(s): B33.24 - Viral cardiomyopathy (6) Respiratory failure Qualifiers: Chronicity: acute Respiratory failure complication: hypoxia Qualified Code(s ): J96.01 - Acute respiratory failure with hypoxia
--- NOTE | 2018-07-27 08:41 | P.PNNPSY ---
- Behavior Moderate: Impulsive/agitated - Cognitive Severe: Cognitive, Attention/concentration, Confused/orientation, Insight/ awareness, Judgment/problem solving, Memory - Psychosocial Intact: Psychosocial, Family/other adjustment, Realistic expectation - Progress Notes/Response to Treatment Contents of Sessions: Adjustment, Level of consciousness Time with Patient: 30 minutes Premorbid Psychological Status: Premorbid Cognitive, Emotional and Behavioral Status: Stable. 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 The patient has no prior psychiatric difficulties, as described above. Substance abuse history is unremarkable. Behavioral Reactions of Patient and Family/Support System: Deferred. The patients family is experiencing ongoing issues of adjustment given the nature of the injury, and this aspect of recovery will require ongoing monitoring. Emotional/Behavioral Status of Patient and Family/Support System: Deferred. Pertinent issues, if appropriate to this patients clinical care, are described in detail above. Maximizing Acute Care Outcome: There are several recommendations/suggestions presented in order to maximize an optimal therapeutic outcome. First, consider adding Valproic Acid 250 BID as an adjunct to Seroquel, with the goal of eventually weaning him from Seroquel entirely. The is concerned that Seroquel is making him too sedated, which may or may not be the case. Second, please consider d/c'ing Ativan and any other benzo because these medications tend to make elderly patients with compromised neuropsychological functions worse. Rather, encourage normal sleep- wake cycles, and augment this encouragement with either Trazodone or melatonin. It would be nice to get him out of two-point restraints. Consider ordering a [place] Bed to facilitate agitation management. I would be happy to provide education to the family, staff etc., if you choose this route. I have had excellent results from a neurobehavioral management standpoint with [place] Beds. Consider no vitals at night to also facilitate sleep-wake cycle. Have PT/OT work with patient during the day as tolerated, with the goal of keeping him up during the day, sleeping at night. I will also order the Agitated Behavior Scale in order to monitor his agitation, and effectiveness of pharmacological intervention. At this point in the recovery process, the patient does not have cognitive capacity as the patient is unable to understand a situation and its likely consequences, nor is the patient able to manipulate information rationally. Cognitive capacity will be assessed throughout the recovery process. Anticipated Problems: Ongoing areas of concern will include behavioral impulsivity, lack of insight and judgment, which is expected to improve with time and treatment. Treatment Plan: This clinician will continue to follow with you throughout the course of this patients acute care treatment, and I will be available to meet with the patient s family/support system to facilitate their understanding and the ongoing care of their family member. The goals of neuropsychological intervention shall be both educational and supportive to the family/support system as is deemed clinically appropriate. 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 Progress Note Narrative: Day 37 of hospitalization. The patient is more agitated/restless, which is an improvement from his previous hypoactive state. ABS is 26 (35,21,14) up from 21 yesterday. Seroquel is at HS (consider d/c'ing), patient is on VPA 250 BID, and suggest increasing to 500 BID, unless medically contraindicated. With that it may be helpful to order hepatic panel as VPA is a hepatotoxin. Consider humberto bed, as some of his agitation may be related to restraint use; humberto bed would allow him to move unrestricted but in a safe environment. Also issues of sleep-wake cycle, and consider trazodone or melatonin. I discussed with the patient's , who was bedside. I will follow. 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
[2018-07-27] MEDS: Spironolactone 25 MG Tablet PO SCH ×2 (09:25→18:06)
[2018-07-27] MEDS: Carvedilol 6.25 MG Tablet PO SCH ×2 (09:25→23:54)
[2018-07-27] MEDS: Enoxaparin Inj 40 MG/0.4 ML Syringe SQ SCH (09:26)
[2018-07-27] MEDS: Potassium Chloride 20 MEQ Pwd Pkt NG/OG SCH (09:26)
--- NOTE | 2018-07-27 09:26 | P.PNIM ---
Subjective Interval history: More awake this morning and attempted to communicate, pleasantly confused. Physical Exam Vital signs: Vital Signs 07/26/18 12:00 07/26/18 20:00 07/27/18 00:00 Temperature 97.3 F L 97.4 F L 97.9 F Pulse Rate 75 78 74 Respiratory Rate 20 18 18 Blood Pressure 122/69 117/59 L 102/53 L Pulse Oximetry 97 92 L 100 07/27/18 04:00 07/27/18 08:00 Temperature 97.4 F L 98.1 F Pulse Rate 68 68 Respiratory Rate 18 20 Blood Pressure 113/56 L 119/57 L Pulse Oximetry 96 91 L Intake & Output 07/26/18 07/27/18 07/27/18 18:59 06:59 18:59 Intake Total 1000 / 1000 Output Total 1200 / 1200 Balance -200 / -200 Weight 55.7 kg Intake: IV 1000 / 1000 D5W Inj 1,000 ML @ 84 mls/hr IV 1000 / 1000 .CONT .[id number] [facility] Rx#:[id number] Output: Urine 1200 / 1200 Other: # Voids 5 Date of Last Bowel Movement 07/24/18 # Bowel Movements 5 2 Narrative: GENERAL: Well-developed well-nourished. In no acute distress, in restraints CARDIOVASCULAR: Regular rate and rhythm. RESPIRATORY: No accessory muscle use. Clear to auscultation. Breath sounds equal bilaterally. GASTROINTESTINAL: Abdomen thin, PEG tube in place, nontender. MUSCULOSKELETAL: . No clubbing or cyanosis. No edema. NEUROLOGICAL: Awake, says yes to certain questions, pleasantly confused, less agitated - Urinary Catheter Management Indwelling Urethral Catheter Cath placed during this visit: yes Urethral indwelling: Yes Reason for continuing: Acute urinary retention Insertion date: 06/20/18 Insertion time: 21:24 3-way Urethral Cath placed during this visit: yes Reason for continuing: Acute urinary retention Insertion date: 07/06/18 Insertion time: 18:00 Results - Labs CBC & Chem 7: 07/23/18 05:43 07/24/18 04:39 Laboratory Results - last 24 hr 07/26/18 07/26/18 07/26/18 11:34 16:20 20:14 POC Glucose 116 H 174 H 172 H 09/13/18 09/14/18 09/14/18 23:30 03:48 07:31 POC Glucose 169 H 206 H 180 H - Procedures intubation/ cardiac cath. Assessment and Plan - Plan Acute Resp failurecurrently 96% on room air Resolved extubated 07/09 Continue nebulized treatments Acute systolic CHF exacerbation Implanted defibrillator Has been stabilized baseline EF is 20% Continue beta-ana, lisinopril decreased to 2.5 milligrams, Lasix on hold. Cardiology following recommending anticoagulation due to transient atrial fibrillation, Discussed with and we will initiate Coumadin today, will monitor PT/INR. Staph aureus pneumonia Treatment completed UTI Fevers Resolved Rocephin changed to Ciprofloxacin End date of treatment is 07/27/18, today. Repeat UA negative Atrial fibrillation Rate controlled on beta-ana Follow on telemetry -EKG from 06/20 with Abhi khanna with RVR -AICD interrogated in June with noted nonsustained V. tach. discussed with Dr. Noonan and has agreed to start the patient on Coumadin today. NSTEMI Cardiology following Continue beta-ana Continue statin FIDE Follow renal function Follow urine output Avoid nephrotoxins Lasix currently on hold Hypoxic encephalopathy -Patient seen and evaluated by psychiatry who recommended Seroquel 12.5 mg twice daily. Stop bedtime dose of Ativan. Continue Depakote 250 mg p.o. twice daily for adjuvant therapy. We will decrease Seroquel to just nightly to encourage alertness for PT participation, will initiate low-dose trazodone at night c We will continue to attempt to get patient restraint free. -Consult Dr. Arreaga, neuropsychology for further recommendations, appreciate assistance. Dysphagia status post PEG placement Speech therapy following, last no recommends to keep patient n.p.o. Referring Currently on tube feeds Glucerna at 65 ml per hour and added Trev Thrombocytopenia Monitor PAD aspirin and statin continued COPD No exacerbation Continue nebulized therepies LFT Elevation LFTs stable, slightly decreased from previous labs Hyperglycemia Follow blood sugars Insulin Sliding Scale Diarrheaimproved and resolving C. difficile negative Patient on multiple laxatives as well as suppositories currently on hold\ We will add Lactinex to Decubitus ulcer -Wound care saw and evaluated patient once again, recommendations for Santyl daily -Dietary following also made aware of wounds -Continue specialty mattress, no cotton on mattress surface, no be found patient , turn every 2 hours. Per would like wound care nurse to rebound the patient today. DVT Prophylaxis Lovenox Palliative care currently following, at the healthcare proxy continues aggressive treatment Discharge Planning: Awaiting SNF placement, [facility] has declined patient. would like him to return back to [place]. Case management assisting with placement.
[2018-07-27] MEDS: Collagenase Oint 30 GM Tube TOPICAL SCH (09:30)
[2018-07-27] MEDS: Brimonidine 0.15% Opth Drops 5 ML Bottle EACH EYE SCH (09:31)
[2018-07-27] MEDS: Lisinopril 5 MG Tablet PO SCH (09:37)
[2018-07-27 11:54] LABS: INR 1.2 Ratio; Prothrombin Time 11.8 sec (9.8-11.6)
[2018-07-27] MEDS: Hypromellose 0.3% Opth Gel 10 GM Bottle EACH EYE SCH (12:33)
--- NOTE | 2018-07-27 14:08 | P.PNWCN ---
Wound Care Nurse Consult Description: Received pressure ulcer consult of coccyx per Communicated with: Dr.Kwong Sigala LPN Recommendation: Please cleanse unstageable sacral/coccyx/right buttock with NORMAL SALINE and pat dry. Apply Santyl to moistened gauze and place over wound bed and secure with a dry cover. Change daily or PRN if saturated or dislodged. Please turn patient from L to R sides every 2 hours and PRN for comfort and offloading of pressure from lyubov prominences. Please use only disposable ultrasorbs for moisture on his Advanced IV low air loss mattress. Wound/Pressure Injury - Patient Status Premedicated for Pain Prior to Dressing Change: No - Wound Left Hand Wound Dressing Change Date: 07/14/18 Sacrum Wound Staging: Unstageable Wound Assessment: Ongoing Wound Type: Pressure Injury Is This a Chronic Wound: Yes Requested from Provider a Wound Care Consult: No (Cosme SORTO,[facility] seen 07/27) Length: 2.6 (cm) Width: 3 (cm) Depth: 0.5 (slough) Wound Bed Appearance: Yellow (slough) Wound Bed Appearance: unstageable wound with 100% slough in wound bed obscuring true destruction of tissues Surrounding Tissue Appearance: Bright Red Drainage Description: Serosanguinous Drainage Amount: Scant Drainage Odor: No Odor Dressing Status: Changed Topical: Cavilon skin barrier film spray Primary Dressing: Foam Cover Dressing: ABD pad Tape Type: Paper Wound Dressing Change Date: 07/27/18 Right buttock Wound Staging: Stage III Wound Assessment: Ongoing Wound Type: Pressure Injury Is This a Chronic Wound: No Requested from Provider a Wound Care Consult: No (Cosme SORTO,[facility] seen 07/27) Length: 2.2 (cm) Width: 2 (cm) Depth: 0.1 (cm) Wound Bed Appearance: [place] Surrounding Tissue Appearance: Erythema Surrounding Tissue Temperature: Warm Drainage Amount: None Drainage Odor: No Odor Dressing Status: Changed Cleansing Solution: Saline Topical: Enzymatic Debridement Ointment Primary Dressing: foam Cover Dressing: Gauze Pads Tape Type: Paper Wound Dressing Change Date: 07/27/18 - Additional Information Patient seen for pressure ulcer to sacral/coccyx/right buttock areas as well as new pressure injuries to feet from blue heel raiser boots. Patient alert and pleasantly confused.Sacral/ right buttocks wounds improving denuded partial thickness rectal wounds worsening from moisture /loose stools. Incision - Patient Status Premedicated for Pain Prior to Dressing Change: No
--- NOTE | 2018-07-27 16:37 | P.PNPAL ---
Reason for Visit Reason for visit: a. To assist with evaluation and management of symptoms including: encephalopathy,dyspnea, pain, agitation. b. To assist medical decision maker(s ) with: better understanding of current medical conditions; weighing benefits/ burdens of medical treatment options; making medical treatment decisions. Subjective Subjective/Interval History: Pt in bed watching TV, BUE restreained, appears comfortable. Fidgets, appears mildly restless. He appears to get getting thinner, +atrophy BLE. He denies pain, SOB, anxiety on my eval. He has no complaints. He asks about his . He is oriented to self, thinks he's in [place]. He does make some other statements in a whisper and I am unable to understand what he is trying to say. Neuropsychology following, have made some recs for his agitation and confusion including avoiding benzos, seroquel and trazodone at night for sleep, and use of humberto bed. Family/Friend Interactions: Spoke with pt's on phone, provided medical update. She is now trying to get him into [facility]. She is prepared to secure a medical flight for pt as soon as he can be discharged for that purpose. Advance Directives Living Will: Never completed Health Care Surrogate: Never completed Durable Power of Financial Institution President: Never completed Objective Vital Signs: Vital Signs 07/26/18 20:00 07/27/18 00:00 07/27/18 04:00 Temperature 97.4 F L 97.9 F 97.4 F L Pulse Rate 78 74 68 Respiratory Rate 18 18 18 Blood Pressure 117/59 L 102/53 L 113/56 L Pulse Oximetry 92 L 100 96 07/27/18 08:00 07/27/18 12:00 Temperature 98.1 F 97.9 F Pulse Rate 68 73 Respiratory Rate 20 18 Blood Pressure 119/57 L 132/52 L Pulse Oximetry 91 L 99 Intake & Output 07/26/18 07/27/18 07/27/18 18:59 06:59 18:59 Intake Total 1000 / 1000 Output Total 1200 / 1200 Balance -200 / -200 Weight 55.7 kg Intake: IV 1000 / 1000 D5W Inj 1,000 ML @ 84 mls/hr IV 1000 / 1000 .CONT .[id number] [facility] Rx#:[id number] Output: Urine 1200 / 1200 Other: # Voids 5 Date of Last Bowel Movement 07/24/18 07/27/18 # Bowel Movements 5 2 Physical Exam: SKIN: No jaundice, rashes, or lesions. Skin temperature appropriate. Not diaphoretic. EYES: No scleral icterus. No injection or drainage. Fundi not examined. ENT: Nose without bleeding or purulent drainage. CARDIOVASCULAR: RRR RESPIRATORY/CHEST: Symmetric, unlabored respirations. CTA GASTROINTESTINAL: ABD soft, nontender, mildly distended, BS + + PEG tube MUSCULOSKELETAL: Extremities without clubbing, cyanosis, or edema. No mottling or clubbing. + muscle wasting BLE NEUROLOGICAL: cooperative, pleasantly confused. Oriented to self. PSYCHIATRIC: mildly restless Diagnostic Tests Laboratory: Laboratory Results - last 72 hr 07/24/18 07/25/18 07/25/18 20:14 00:35 05:03 PT INR POC Glucose 225 H 120 H 268 H 07/25/18 07/25/18 07/25/18 07:44 11:47 16:46 PT INR POC Glucose 158 H 201 H 177 H 07/26/18 07/26/18 07/26/18 06:03 07:34 11:34 PT INR POC Glucose 236 H 208 H 116 H 07/26/18 07/26/18 07/26/18 16:20 20:14 23:30 PT INR POC Glucose 174 H 172 H 169 H 07/27/18 07/27/18 07/27/18 03:48 07:31 11:30 PT 11.8 H INR 1.2 POC Glucose 206 H 180 H 07/27/18 11:53 PT INR POC Glucose 172 H Result Diagrams: 07/23/18 05:43 07/24/18 04:39 Imaging: ITS Impressions Abdomen/Bladder Ultrasound 06/21/18 00:00 CONCLUSION: 1. Increased echogenicity of both kidneys typical of chronic parenchymal disease. 2. No evidence of acute obstructive uropathy. 3. Bilateral benign appearing renal cysts. Abdomen/Pelvis CT 07/04/18 00:00 CONCLUSION: The bulging in the right lower quadrant is related to distention of the cecum. Abdomen X-Ray 07/10/18 08:00 CONCLUSION: No evidence of obstruction. Chest X-Ray 07/12/18 00:00 CONCLUSION: 1. Persistent mild patchy bibasilar airspace disease, likely atelectasis. 2. No significant interval change following expiration. Head CT 07/12/18 00:00 CONCLUSION: 1. No acute intracranial abnormality. 2. Atrophy. 3. Increased density seen throughout the mastoid air cells and middle ear regions. . Procedures: 06/23 reintubated 06/26 heart cath 07/09 extubated Assessment and Plan - Disease Oriented Problem List (1) Respiratory failure (2) Non-ST elevated myocardial infarction (non-STEMI) (3) Cardiomyopathy (4) PVD (peripheral vascular disease) (5) Tobacco abuse (6) Constipation Pertinent Non-Medical Issues: Psychosocial: Pt originally from [place]. with 4 kids. 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 Spiritual: sabianism. 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 Legal: Per [place] statute is proxy decision maker. Ethical issues impacting care: none Important Contacts: Kristine Avila, - [phone] Prognosis: This is a 72-year-old male with history CHF, COPD, tobacco abuse, diabetes who presented 06[place]20 [place] He has a defibrillator implanted. His baseline ejection fraction is 25% and he is now at less than 20%. Patient reintubated 06/23, extubated . Now with encephalopathy, no improvement and unclear if it will indeed improve. Had cardiac cath 06/26 with finding 3 vessel CAD, non ischemic dilated cardiomyopathy. He is at high risk for continued complications and decline. Code Status: Full Code Plan: - LEGAL DECISON MAKER -No written advanced directives. Patient is not capacitated to make medical decisions, uncertain if he will regain capacity. Per [place] statutes, health care proxy decision making falls to his . - FULL CODE - GOALS - Spoke with pt's on phone, provided medical update. She is now trying to get him into [facility]. She is prepared to secure a medical flight for pt as soon as he can be discharged for that purpose. - SYMPTOMS - * pain - multifactorial- prolonged bedbound status, mult tubes and lines, had ileus, now with DTI right buttock, bilat feet, sacrum/coccyx. chest pain prior to admission. denies pain on my eval. wound care following Has PRN Tylenol ordered, no further pain recommendations at this time. * DIARRHEA- now with mult episodes loose stool daily, c diff neg. lactinex started. has just started eating some pureed food. * dyspnea -reintubated 06/23. extubated 07/09. Recent N STEMI. EF < 20% . s/p cardiac cath 06/26 findings 3 vessel CAD, nonischemic dilated cardiomyopathy. pulmonology consulted for significant COPD. CV surgery consulted, not candidate at this time. pt extubated 07/09. Denies SOB. No sign dyspnea, lungs CTA. Not on oxygen currently, sat 97 on room air. scheduled DuoNeb's, mgmt per pulmonology. * agitation - multifactorial. encephalopathy. extubated. Overall agitation has improved and pt remains mildly restless, constantly fidgeting. no sign discomfort or agitation however. pt modestly improved since last eval, today was verbal and answering basic questions although only oriented to self and pleasantly confused. Uncertain if encephalopathy will improve. neuropsychology following, has made recs. seroquel was decreased d/t concerns of over sedation and now just given HS along with trazodone. - Palliative care will continue to follow during hospital course as condition evolves, to assist patient/decision-maker with understanding of medical conditions, weighing benefits/burdens of treatment options, for clarification of goals of treatment. Additionally will assist with any symptoms of palliative concern Attestation Attestation: To help prompt me to consider important information that might be impacting today's encounter and assessment, information from prior notes written by myself or my colleagues may have been "brought forward" into today's note. My signature on this note, however, is an attestation that I personally performed the exam, history, and/or decision-making noted today, and, unless otherwise indicated, the interactions with patient, family, and staff as well as the review of records all occurred today. I also attest that the listed assessment and stated plan reflect my best clinical judgment today based on the combination of historical information, prior notes, and today's exam/ interactions. When time spent is documented, it refers only to time spent today by the signer, or if indicated, combined time spent today by collaborating physician/nurse practitioner.
[2018-07-27] MEDS ORDERED: traZODone 50 MG Tablet PO SCH (21:00)
[2018-07-27] MEDS: QUEtiapine 25 MG Tablet PO SCH (23:54)
[2018-07-28] MEDS: Brimonidine 0.15% Opth Drops 5 ML Bottle EACH EYE SCH ×3 (00:22→21:05)
[2018-07-28] MEDS: Insulin NovoLOG Aspart Correctional Sugar Inj SQ SCH ×6 (00:23→21:14)
[2018-07-28] MEDS: Dextrose 5% in Water Inj 1,000 ML IV.CONT SCH ×4 (00:23→18:07)
[2018-07-28] MEDS: Hypromellose 0.3% Opth Gel 10 GM Bottle EACH EYE SCH ×3 (00:30→21:05)
[2018-07-28] MEDS: Furosemide 40 MG Tablet PO SCH (00:44)
[2018-07-28] MEDS: Baclofen 10 MG Tablet PO SCH ×3 (05:45→21:03)
[2018-07-28 05:53] LABS: INR 1.1 Ratio; Prothrombin Time 11.1 sec (9.8-11.6)
[2018-07-28] MEDS: Lisinopril 5 MG Tablet PO SCH (08:02)
[2018-07-28] MEDS: Carvedilol 6.25 MG Tablet PO SCH ×2 (08:02→21:04)
[2018-07-28] MEDS: Potassium Chloride 20 MEQ Pwd Pkt NG/OG SCH (08:04)
[2018-07-28] MEDS: Enoxaparin Inj 40 MG/0.4 ML Syringe SQ SCH (08:07)
[2018-07-28] MEDS: Spironolactone 25 MG Tablet PO SCH ×2 (08:07→17:34)
[2018-07-28] MEDS: Collagenase Oint 30 GM Tube TOPICAL SCH (08:15)
--- NOTE | 2018-07-28 10:34 | P.PNCA ---
Subjective Interval history: patient states "good morning" to me Physical Exam Vital signs: Vital Signs 07/27/18 12:00 07/27/18 16:00 07/27/18 20:00 Temperature 97.9 F 98.0 F 97.5 F L Pulse Rate 73 77 69 Respiratory Rate 18 18 20 Blood Pressure 132/52 L 121/58 L 119/57 L Pulse Oximetry 99 97 98 07/28/18 00:00 07/28/18 04:00 07/28/18 08:00 Temperature 97.4 F L 98.4 F 97.7 F Pulse Rate 86 78 80 Respiratory Rate 20 19 20 Blood Pressure 128/63 115/53 L 115/59 L Pulse Oximetry 100 97 99 Intake & Output 07/27/18 07/28/18 07/28/18 18:59 06:59 18:59 Weight 54 kg Other: # Incontinent Voids 3 4 Date of Last Bowel Movement 07/27/18 07/27/18 # Incontinent Bowel Movements 6 2 - Urinary Catheter Management Indwelling Urethral Catheter Cath placed during this visit: yes Urethral indwelling: Yes Reason for continuing: Acute urinary retention Insertion date: 06/20/18 Insertion time: 21:24 3-way Urethral Cath placed during this visit: yes Reason for continuing: Acute urinary retention Insertion date: 07/06/18 Insertion time: 18:00 Assessment and Plan - Assessment (1) Cardiomyopathy Code(s): I42.9 - Cardiomyopathy, unspecified Status: Acute (2) Cardiomyopathy Code(s): I42.9 - Cardiomyopathy, unspecified Status: Acute (3) PVD (peripheral vascular disease) Code(s): I73.9 - Peripheral vascular disease, unspecified Status: Acute (4) PVD (peripheral vascular disease) Code(s): I73.9 - Peripheral vascular disease, unspecified Status: Acute (5) Tobacco abuse Code(s): Z72.0 - Tobacco use Status: Acute (6) Respiratory failure Code(s): J96.90 - Respiratory failure, unspecified, unspecified whether with hypoxia or hypercapnia Status: Acute (7) Non-ST elevated myocardial infarction (non-STEMI) Code(s): I21.4 - Non-ST elevation (NSTEMI) myocardial infarction Status: Acute (8) Pulmonary edema cardiac cause Code(s): I50.1 - Left ventricular failure, unspecified Status: Acute - Plan 1.) NICM - end stage, euvolemic, refuses in state transfer, requesting transfer to [facility], d/w Dr Solis; beta ana and hellen held due to hypotension, diuresing to optimize potential extubation, he has hypernatremia, dc lopressor, start coreg 6.25 bmg bid and aldactone 25 mg po bid, continue lisinopril 2.5 mg qd, f/u bmp, bnp in am 2.) CAD - nonobstructive, continue aspirin, pravachol 3.) Encephalopathy - moderate per EEG on sedation, neuro following, appropriately verbal starting 07/28/18, still confused, s/p peg 4.) d/w case with at the bedside 07/04/18 5.) Respiratory failure - he is euvolemic, appears to be due to pulmonary and/ or encephalopathic etilology, extubated 07/09/18 but restrained and not following commands, will follow trends in mental and respiratory status, d/w at the bedside 07/19/18, placement @ [facility] pending documented stabilization on sdu x 6 hours 6.) Arrythmia - no afib on interrogation of icd, [employer], no documented afib on telemetry i am aware of, ekg from 06/20/18 reviewed, there is artifact, can not determine if this is nsr with pacs and can not r/o atrial fib , patient started on coumadin per request of his , will bridge with lovenox 1mg/kg q12h, dc aspirin, f/u cbc (2) Cardiomyopathy Qualifiers: Cardiomyopathy type: viral Qualified Code(s): B33.24 - Viral cardiomyopathy (6) Respiratory failure Qualifiers: Chronicity: acute Respiratory failure complication: hypoxia Qualified Code(s ): J96.01 - Acute respiratory failure with hypoxia
--- NOTE | 2018-07-28 10:48 | P.PNIM ---
Subjective Interval history: More alert. Nursing staff states that he did not sleep overnight Physical Exam Vital signs: Vital Signs 07/27/18 12:00 07/27/18 16:00 07/27/18 20:00 Temperature 97.9 F 98.0 F 97.5 F L Pulse Rate 73 77 69 Respiratory Rate 18 18 20 Blood Pressure 132/52 L 121/58 L 119/57 L Pulse Oximetry 99 97 98 07/28/18 00:00 07/28/18 04:00 07/28/18 08:00 Temperature 97.4 F L 98.4 F 97.7 F Pulse Rate 86 78 80 Respiratory Rate 20 19 20 Blood Pressure 128/63 115/53 L 115/59 L Pulse Oximetry 100 97 99 Intake & Output 07/27/18 07/28/18 07/28/18 18:59 06:59 18:59 Weight 54 kg Other: # Incontinent Voids 3 4 Date of Last Bowel Movement 07/27/18 07/27/18 # Incontinent Bowel Movements 6 2 Narrative: GENERAL: Well-developed well-nourished. In no acute distress, in restraints CARDIOVASCULAR: Regular rate and rhythm. RESPIRATORY: No accessory muscle use. Clear to auscultation. Breath sounds equal bilaterally. GASTROINTESTINAL: Abdomen thin, PEG tube in place, nontender. MUSCULOSKELETAL: . No clubbing or cyanosis. No edema. NEUROLOGICAL: Awake, says yes to certain questions, pleasantly confused, less agitated - Urinary Catheter Management Indwelling Urethral Catheter Cath placed during this visit: yes Urethral indwelling: Yes Reason for continuing: Acute urinary retention Insertion date: 06/20/18 Insertion time: 21:24 3-way Urethral Cath placed during this visit: yes Reason for continuing: Acute urinary retention Insertion date: 07/06/18 Insertion time: 18:00 Results - Labs CBC & Chem 7: 07/23/18 05:43 07/24/18 04:39 Laboratory Results - last 24 hr 07/27/18 07/27/18 07/27/18 11:30 11:53 16:48 PT 11.8 H INR 1.2 POC Glucose 172 H 181 H 07/27/18 07/27/18 07/28/18 17:20 23:52 04:01 PT INR POC Glucose 201 H 220 H 127 H 07/28/18 07/28/18 04:36 07:33 PT 11.1 INR 1.1 POC Glucose 250 H - Procedures intubation/ cardiac cath. Assessment and Plan - Plan Acute Resp failurecurrently 96% on room air Resolved extubated 07/09 Continue nebulized treatments Acute systolic CHF exacerbation Implanted defibrillator Has been stabilized baseline EF is 20% Continue beta-ana, lisinopril decreased to 2.5 milligrams, Lasix on hold. Cardiology following recommending anticoagulation due to transient atrial fibrillation, Coumadin has been initiated, will monitor PT/INR. Staph aureus pneumonia Treatment completed UTI Fevers Resolved Completed ciprofloxacin Repeat UA negative Atrial fibrillation Rate controlled on beta-ana Follow on telemetry -EKG from 06/20 with Abhi khanna with RVR -AICD interrogated in June with noted nonsustained V. tach. discussed with Dr. Noonan and has agreed to start the patient on Coumadin NSTEMI Cardiology following Continue beta-ana Continue statin FIDE Follow renal function Follow urine output Avoid nephrotoxins Lasix currently on hold Hypoxic encephalopathy -Patient seen and evaluated by psychiatry who recommended Seroquel 12.5 mg twice daily. Stop bedtime dose of Ativan. Continue Depakote 250 mg p.o. twice daily for adjuvant therapy. We will decrease Seroquel to just nightly to encourage alertness for PT participation, will initiate low-dose trazodone at night; will increase the dose to 50 mg p.o. nightly we will continue to attempt to get patient restraint free. -Consult Dr. Arreaga, neuropsychology for further recommendations, appreciate assistance. Dysphagia status post PEG placement Speech therapy following, last no recommends to keep patient n.p.o. Referring Currently on tube feeds Glucerna at 65 ml per hour and added Trev Thrombocytopenia Monitor PAD aspirin and statin continued COPD No exacerbation Continue nebulized therepies LFT Elevation LFTs stable, slightly decreased from previous labs repeat in the morning due to starting Depakote. Hyperglycemia Follow blood sugars Insulin Sliding Scale Diarrheaimproved and resolving C. difficile negative Patient on multiple laxatives as well as suppositories currently on hold We will add Lactinex to Decubitus ulcer -Wound care saw and evaluated patient once again, recommendations for Santyl daily -Dietary following also made aware of wounds -Continue specialty mattress, no cotton on mattress surface, no be found patient , turn every 2 hours. Hold off on rectal tube per at this time. DVT Prophylaxis Lovemalikx Palliative care currently following, at the healthcare proxy continues aggressive treatment Discharge Planning: Awaiting SNF placement, [facility] has declined patient. would like him to return back to [place]. Case management assisting with placement.
[2018-07-28] MEDS: QUEtiapine 25 MG Tablet PO SCH (21:03)
[2018-07-28] MEDS: Enoxaparin Inj 60 MG/0.6 ML Syringe SQ SCH (21:03)
[2018-07-28] MEDS: traZODone 50 MG Tablet PO SCH (21:04)
[2018-07-29] MEDS: Insulin NovoLOG Aspart Correctional Sugar Inj SQ SCH ×6 (01:17→20:07)
[2018-07-29] MEDS: Dextrose 5% in Water Inj 1,000 ML IV.CONT SCH (05:24)
[2018-07-29] MEDS: Baclofen 10 MG Tablet PO SCH ×3 (05:43→21:22)
[2018-07-29 05:54] LABS: Hematocrit 34.8 % (39.0-51.0); Hemoglobin 11.5 gm/dL (13.0-17.0); Mean Corpuscular HGB Conc 33.1 % (32.0-36.0); Mean Corpuscular Hemoglobin 30.9 pg (27.0-34.0); Mean Corpuscular Volume 93.3 fL (80.0-100.0); Mean Platelet Volume 11.3 fL (7.0-11.0); Platelet Count 143 th/mm3 (150-450); Red Blood Count 3.73 mil/mm3 (4.50-5.90); Red Cell Distribution Width 16.4 % (11.6-17.2); White Blood Count 4.2 th/mm3 (4.0-11.0)
[2018-07-29 06:03] LABS: INR 1.2 Ratio; Prothrombin Time 12.5 sec (9.8-11.6)
[2018-07-29 06:28] LABS: Albumin 2.4 g/dL (3.4-5.0); Total Protein 7.3 g/dL (6.4-8.2)
[2018-07-29] MEDS: Collagenase Oint 30 GM Tube TOPICAL SCH (08:16)
[2018-07-29] MEDS: Lisinopril 5 MG Tablet PO SCH (08:16)
[2018-07-29] MEDS: Carvedilol 6.25 MG Tablet PO SCH ×2 (08:18→20:07)
[2018-07-29] MEDS: Potassium Chloride 20 MEQ Pwd Pkt NG/OG SCH (08:18)
[2018-07-29] MEDS: Enoxaparin Inj 60 MG/0.6 ML Syringe SQ SCH ×2 (08:19→20:07)
[2018-07-29] MEDS: Spironolactone 25 MG Tablet PO SCH ×2 (08:19→17:59)
[2018-07-29] MEDS: Brimonidine 0.15% Opth Drops 5 ML Bottle EACH EYE SCH ×2 (08:20→20:08)
[2018-07-29] MEDS: Hypromellose 0.3% Opth Gel 10 GM Bottle EACH EYE SCH ×2 (08:20→20:08)
--- NOTE | 2018-07-29 09:15 | P.PNIM ---
Subjective Interval history: Restless and slightly agitated. Tells me he wants to get out of bed. Physical Exam Vital signs: Vital Signs 07/28/18 12:00 07/28/18 15:39 07/28/18 19:59 Temperature 97.4 F L 97.2 F L Pulse Rate 60 65 66 Respiratory Rate 20 20 Blood Pressure 102/55 L 119/55 L Pulse Oximetry 99 99 07/28/18 20:00 07/29/18 00:00 07/29/18 00:44 Temperature 97.4 F L 97.5 F L Pulse Rate 71 61 72 Respiratory Rate 17 17 Blood Pressure 110/60 108/55 L Pulse Oximetry 95 94 L 07/29/18 04:31 07/29/18 05:33 07/29/18 08:00 Temperature 97.5 F L 97.7 F Pulse Rate 60 62 75 Respiratory Rate 17 17 Blood Pressure 106/53 L 101/71 Pulse Oximetry 96 97 Intake & Output 07/28/18 07/29/18 07/29/18 18:59 06:59 18:59 Intake Total 1000 / 1000 1180 / 1180 1000 / 1000 Output Total 701 / 701 1000 / 1000 Balance 299 / 299 180 / 180 1000 / 1000 Weight 54 kg Intake: IV 1000 / 1000 1000 / 1000 D5W Inj 1,000 ML @ 84 mls/hr IV 1000 / 1000 1000 / 1000 .CONT .[id number] [facility] Rx#:[id number] Tube Feeding 740 / 740 Tube Irrigant 40 / 40 Water Bolus Amount 400 / 400 Output: Urine 700 / 700 1000 / 1000 Stool 1 / 1 Other: # Voids 3 Date of Last Bowel Movement 07/28/18 07/29/18 07/29/18 # Bowel Movements 1 Narrative: GENERAL: Well-developed well-nourished. In no acute distress, in restraints CARDIOVASCULAR: Regular rate and rhythm. RESPIRATORY: No accessory muscle use. Clear to auscultation. Breath sounds equal bilaterally. GASTROINTESTINAL: Abdomen thin, PEG tube in place, nontender. Normoactive bowel sounds MUSCULOSKELETAL: . No clubbing or cyanosis. No edema. NEUROLOGICAL: Awake, says yes to certain questions, pleasantly confused, slight agitation with restlessness - Urinary Catheter Management Indwelling Urethral Catheter Cath placed during this visit: yes Urethral indwelling: Yes Reason for continuing: Acute urinary retention Insertion date: 06/20/18 Insertion time: 21:24 3-way Urethral Cath placed during this visit: yes Reason for continuing: Acute urinary retention Insertion date: 07/06/18 Insertion time: 18:00 Results - Labs CBC & Chem 7: 07/29/18 04:01 07/24/18 04:39 Laboratory Results - last 24 hr 07/28/18 07/28/18 07/28/18 11:06 16:00 21:13 WBC RBC Hgb Hct MCV MCH MCHC RDW Plt Count MPV PT INR POC Glucose 141 H 212 H 162 H Total Bilirubin Direct Bilirubin Indirect Bilirubin AST ALT Alkaline Phosphatase Total Protein Albumin 07/29/18 07/29/18 07/29/18 01:08 03:49 04:01 WBC 4.2 RBC 3.73 L Hgb 11.5 L Hct 34.8 L MCV 93.3 MCH 30.9 MCHC 33.1 RDW 16.4 Plt Count 143 L D MPV 11.3 H PT INR POC Glucose 179 H 146 H Total Bilirubin Direct Bilirubin Indirect Bilirubin AST ALT Alkaline Phosphatase Total Protein Albumin 07/29/18 07/29/18 07/29/18 05:01 05:02 07:16 WBC RBC Hgb Hct MCV MCH MCHC RDW Plt Count MPV PT 12.5 H INR 1.2 POC Glucose 224 H Total Bilirubin 0.3 Direct Bilirubin 0.2 Indirect Bilirubin 0.1 AST 100 H ALT 96 H Alkaline Phosphatase 280 H Total Protein 7.3 Albumin 2.4 L - Procedures intubation/ cardiac cath. Assessment and Plan - Plan Acute Resp failurecurrently 97% on room air Resolved extubated 07/09 Continue nebulized treatments As needed Acute systolic CHF exacerbation Implanted defibrillator Has been stabilized baseline EF is 20% Continue beta-ana, Coreg, lisinopril decreased to 2.5 milligrams, Lasix on hold. Cardiology following recommending anticoagulation due to transient atrial fibrillation, Coumadin has been initiated, will monitor PT/INR. Today's INR 1.2. Lovenox used to bridge Staph aureus pneumonia Treatment completed UTI, Pseudomonas Fevers Resolved Completed ciprofloxacin Repeat UA negative Atrial fibrillation Rate controlled on beta-ana Follow on telemetry -EKG from 06/20 with Abhi khanna with RVR -AICD interrogated in June with noted nonsustained V. tach. discussed with Dr. Noonan and has agreed to start the patient on Coumadin , bridging with Lovenox per cardiology. NSTEMI Cardiology following Continue beta-ana Continue statin AKIresolved improved Follow renal function Follow urine output Avoid nephrotoxins Lasix currently on hold Hypoxic encephalopathy -Patient seen and evaluated by psychiatry who recommended Seroquel 12.5 mg twice daily. Stop bedtime dose of Ativan. Stop Depakote 250 mg p.o. twice daily for adjuvant therapy due to elevation in hepatic function tests. We will adjust Seroquel to just nightly to encourage alertness for PT participation during the day, will initiate low-dose trazodone at night; we will continue to attempt to get patient restraint free. -Consult Dr. Arreaga, neuropsychology for further recommendations, appreciate assistance. Dysphagia status post PEG placement Speech therapy following, last no recommends to keep patient n.p.o. Referring Currently on tube feeds Glucerna at 65 ml per hour and added Trev Thrombocytopenia Monitor PAD aspirin and statin continued COPD No exacerbation Continue nebulized therepies LFT Elevation LFTs stable, slightly decreased from previous labs repeat in the morning due to starting Depakote. Hyperglycemia Follow blood sugars Insulin Sliding Scale Diarrheaimproved and resolving C. difficile negative Patient on multiple laxatives as well as suppositories currently on hold added Lactinex Decubitus ulcer -Wound care saw and evaluated patient once again, recommendations for Santyl daily -Dietary following also made aware of wounds -Continue specialty mattress, no cotton on mattress surface, no be found patient , turn every 2 hours. Hold off on rectal tube per at this time. DVT Prophylaxis Lovenox Palliative care currently following, at the healthcare proxy continues aggressive treatment Discharge Planning: Awaiting SNF placement, [facility] has declined patient. would like him to return back to [place]. Case management assisting with placement.
--- NOTE | 2018-07-29 10:29 | P.PNCA ---
Subjective Interval history: verbal, restrained, confused Physical Exam Vital signs: Vital Signs 07/28/18 12:00 07/28/18 15:39 07/28/18 19:59 Temperature 97.4 F L 97.2 F L Pulse Rate 60 65 66 Respiratory Rate 20 20 Blood Pressure 102/55 L 119/55 L Pulse Oximetry 99 99 07/28/18 20:00 07/29/18 00:00 07/29/18 00:44 Temperature 97.4 F L 97.5 F L Pulse Rate 71 61 72 Respiratory Rate 17 17 Blood Pressure 110/60 108/55 L Pulse Oximetry 95 94 L 07/29/18 04:31 07/29/18 05:33 07/29/18 08:00 Temperature 97.5 F L 97.7 F Pulse Rate 60 62 75 Respiratory Rate 17 17 Blood Pressure 106/53 L 101/71 Pulse Oximetry 96 97 Intake & Output 07/28/18 07/29/18 07/29/18 18:59 06:59 18:59 Intake Total 1000 / 1000 1180 / 1180 1000 / 1000 Output Total 701 / 701 1000 / 1000 Balance 299 / 299 180 / 180 1000 / 1000 Weight 54 kg Intake: IV 1000 / 1000 1000 / 1000 D5W Inj 1,000 ML @ 84 mls/hr IV 1000 / 1000 1000 / 1000 .CONT .[id number] [facility] Rx#:[id number] Tube Feeding 740 / 740 Tube Irrigant 40 / 40 Water Bolus Amount 400 / 400 Output: Urine 700 / 700 1000 / 1000 Stool 1 / 1 Other: # Voids 3 Date of Last Bowel Movement 07/28/18 07/29/18 07/29/18 # Bowel Movements 1 - Urinary Catheter Management Indwelling Urethral Catheter Cath placed during this visit: yes Urethral indwelling: Yes Reason for continuing: Acute urinary retention Insertion date: 06/20/18 Insertion time: 21:24 3-way Urethral Cath placed during this visit: yes Reason for continuing: Acute urinary retention Insertion date: 07/06/18 Insertion time: 18:00 Assessment and Plan - Assessment (1) Cardiomyopathy Code(s): I42.9 - Cardiomyopathy, unspecified Status: Acute (2) Cardiomyopathy Code(s): I42.9 - Cardiomyopathy, unspecified Status: Acute (3) PVD (peripheral vascular disease) Code(s): I73.9 - Peripheral vascular disease, unspecified Status: Acute (4) PVD (peripheral vascular disease) Code(s): I73.9 - Peripheral vascular disease, unspecified Status: Acute (5) Tobacco abuse Code(s): Z72.0 - Tobacco use Status: Acute (6) Respiratory failure Code(s): J96.90 - Respiratory failure, unspecified, unspecified whether with hypoxia or hypercapnia Status: Acute (7) Non-ST elevated myocardial infarction (non-STEMI) Code(s): I21.4 - Non-ST elevation (NSTEMI) myocardial infarction Status: Acute (8) Pulmonary edema cardiac cause Code(s): I50.1 - Left ventricular failure, unspecified Status: Acute - Plan 1.) NICM - end stage, euvolemic, refuses in state transfer, requesting transfer to [facility], d/w Dr Solis; beta ana and hellen held due to hypotension, diuresing to optimize potential extubation, he has hypernatremia, dc lopressor, start coreg 6.25 bmg bid and aldactone 25 mg po bid, continue lisinopril 2.5 mg qd, f/u bmp, bnp in am 2.) CAD - nonobstructive, continue aspirin, pravachol 3.) Encephalopathy - moderate per EEG on sedation, neuro following, appropriately verbal starting 07/28/18, still confused, s/p peg 4.) d/w case with at the bedside 07/04/18 5.) Respiratory failure - he is euvolemic, appears to be due to pulmonary and/ or encephalopathic etilology, extubated 07/09/18 but restrained and not following commands, will follow trends in mental and respiratory status, d/w at the bedside 07/19/18, placement @ [facility] pending documented stabilization on sdu x 6 hours 6.) Arrythmia - no afib on interrogation of icd, [employer], no documented afib on telemetry i am aware of, ekg from 06/20/18 reviewed, there is artifact, can not determine if this is nsr with pacs and can not r/o atrial fib , patient started on coumadin per request of his , will bridge with lovenox 1mg/kg q12h, dc aspirin, f/u cbc (2) Cardiomyopathy Qualifiers: Cardiomyopathy type: viral Qualified Code(s): B33.24 - Viral cardiomyopathy (6) Respiratory failure Qualifiers: Chronicity: acute Respiratory failure complication: hypoxia Qualified Code(s ): J96.01 - Acute respiratory failure with hypoxia
[2018-07-29] MEDS: Escitalopram 10 MG Tablet PO SCH (14:09)
[2018-07-29] MEDS: traZODone 50 MG Tablet PO SCH (20:08)
[2018-07-29] MEDS: QUEtiapine 25 MG Tablet PO SCH (20:08)
[2018-07-30] MEDS: Insulin NovoLOG Aspart Correctional Sugar Inj SQ SCH ×5 (00:06→21:12)
[2018-07-30 06:11] LABS: Hematocrit 34.1 % (39.0-51.0); Hemoglobin 11.1 gm/dL (13.0-17.0); Mean Corpuscular HGB Conc 32.6 % (32.0-36.0); Mean Corpuscular Hemoglobin 30.5 pg (27.0-34.0); Mean Corpuscular Volume 93.5 fL (80.0-100.0); Mean Platelet Volume 10.4 fL (7.0-11.0); Platelet Count 139 th/mm3 (150-450); Red Blood Count 3.64 mil/mm3 (4.50-5.90); Red Cell Distribution Width 17.1 % (11.6-17.2); White Blood Count 4.3 th/mm3 (4.0-11.0)
[2018-07-30 06:16] LABS: INR 1.4 Ratio
[2018-07-30] MEDS: Baclofen 10 MG Tablet PO SCH ×3 (06:19→21:00)
--- NOTE | 2018-07-30 08:42 | P.PNNPSY ---
- Behavior Mild: Impulsive/agitated - Cognitive Severe: Cognitive, Attention/concentration, Confused/orientation, Insight/ awareness, Judgment/problem solving, Memory - Psychosocial Intact: Psychosocial, Family/other adjustment, Realistic expectation - Progress Notes/Response to Treatment Contents of Sessions: Adjustment Time with Patient: 15 minutes Premorbid Psychological Status: Premorbid Cognitive, Emotional and Behavioral Status: Stable. 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 The patient has no prior psychiatric difficulties, as described above. Substance abuse history is unremarkable. Behavioral Reactions of Patient and Family/Support System: Deferred. The patients family is experiencing ongoing issues of adjustment given the nature of the injury, and this aspect of recovery will require ongoing monitoring. Emotional/Behavioral Status of Patient and Family/Support System: Deferred. Pertinent issues, if appropriate to this patients clinical care, are described in detail above. Maximizing Acute Care Outcome: There are several recommendations/suggestions presented in order to maximize an optimal therapeutic outcome. First, consider adding Valproic Acid 250 BID as an adjunct to Seroquel, with the goal of eventually weaning him from Seroquel entirely. The is concerned that Seroquel is making him too sedated, which may or may not be the case. Second, please consider d/c'ing Ativan and any other benzo because these medications tend to make elderly patients with compromised neuropsychological functions worse. Rather, encourage normal sleep- wake cycles, and augment this encouragement with either Trazodone or melatonin. It would be nice to get him out of two-point restraints. Consider ordering a Coco Bed to facilitate agitation management. I would be happy to provide education to the family, staff etc., if you choose this route. I have had excellent results from a neurobehavioral management standpoint with Coco Beds. Consider no vitals at night to also facilitate sleep-wake cycle. Have PT/OT work with patient during the day as tolerated, with the goal of keeping him up during the day, sleeping at night. I will also order the Agitated Behavior Scale in order to monitor his agitation, and effectiveness of pharmacological intervention. At this point in the recovery process, the patient does not have cognitive capacity as the patient is unable to understand a situation and its likely consequences, nor is the patient able to manipulate information rationally. Cognitive capacity will be assessed throughout the recovery process. Anticipated Problems: Ongoing areas of concern will include behavioral impulsivity, lack of insight and judgment, which is expected to improve with time and treatment. Treatment Plan: This clinician will continue to follow with you throughout the course of this patients acute care treatment, and I will be available to meet with the patient s family/support system to facilitate their understanding and the ongoing care of their family member. The goals of neuropsychological intervention shall be both educational and supportive to the family/support system as is deemed clinically appropriate. 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 Progress Note Narrative: Day 40 of hospitalization. The patient had become tearful, and Lexapro 10 qD was started. The patient remains on VPA 250 BID, and Seroquel 25 HS. Recent ABS scores are 24 (24.5,17.5,28) which is mild agitation. Consider increasing VPA to 250 TID and use of [place] Bed. However, because he has lines and an area of skin breakdown that may serve as a source of irritation, a [place] Bed would be contraindicated, and he would have to remain in restraints. I will follow. 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
[2018-07-30] MEDS: Spironolactone 25 MG Tablet PO SCH ×2 (09:30→18:06)
[2018-07-30] MEDS: Enoxaparin Inj 60 MG/0.6 ML Syringe SQ SCH ×2 (09:40→21:00)
[2018-07-30] MEDS: Escitalopram 10 MG Tablet PO SCH (09:41)
[2018-07-30] MEDS: Potassium Chloride 20 MEQ Pwd Pkt NG/OG SCH (09:42)
[2018-07-30] MEDS: Carvedilol 6.25 MG Tablet PO SCH ×2 (09:42→21:00)
[2018-07-30] MEDS: Lisinopril 5 MG Tablet PO SCH (09:45)
[2018-07-30] MEDS: Brimonidine 0.15% Opth Drops 5 ML Bottle EACH EYE SCH ×2 (09:46→21:09)
[2018-07-30] MEDS: Collagenase Oint 30 GM Tube TOPICAL SCH (09:46)
[2018-07-30] MEDS: Hypromellose 0.3% Opth Gel 10 GM Bottle EACH EYE SCH ×2 (09:47→21:09)
--- NOTE | 2018-07-30 12:10 | P.PNCA ---
Subjective Interval history: verbal, confused, off restraintes in nad Physical Exam Vital signs: Vital Signs 07/29/18 16:00 07/29/18 20:00 07/30/18 00:00 Temperature 97.5 F L 98.9 F Pulse Rate 85 73 75 Respiratory Rate 17 16 Blood Pressure 117/53 L 134/62 Pulse Oximetry 94 L 94 L 07/30/18 00:41 07/30/18 04:00 07/30/18 04:23 Temperature 98.9 F 96.9 F L Pulse Rate 70 79 72 Respiratory Rate 17 18 Blood Pressure 116/59 L 119/56 L Pulse Oximetry 96 95 07/30/18 08:00 Temperature 97.4 F L Pulse Rate 69 Respiratory Rate 18 Blood Pressure 124/65 Pulse Oximetry 97 Intake & Output 07/29/18 07/30/18 07/30/18 18:59 06:59 18:59 Intake Total 1000 / 1000 1015 / 1015 Output Total 350 / 350 1500 / 1500 Balance 650 / 650 -485 / -485 Weight 54 kg Intake: IV 1000 / 1000 D5W Inj 1,000 ML @ 84 mls/hr IV 1000 / 1000 .CONT .[id number] [facility] Rx#:[id number] Tube Feeding 575 / 575 Tube Irrigant 40 / 40 Water Bolus Amount 400 / 400 Output: Urine 350 / 350 1500 / 1500 Other: # Incontinent Voids 3 Date of Last Bowel Movement 07/29/18 07/29/18 # Bowel Movements 4 # Incontinent Bowel Movements 1 - Urinary Catheter Management Indwelling Urethral Catheter Cath placed during this visit: yes Urethral indwelling: Yes Reason for continuing: Acute urinary retention Insertion date: 06/20/18 Insertion time: 21:24 3-way Urethral Cath placed during this visit: yes Reason for continuing: Acute urinary retention Insertion date: 07/06/18 Insertion time: 18:00 Assessment and Plan - Assessment (1) Cardiomyopathy Code(s): I42.9 - Cardiomyopathy, unspecified Status: Acute (2) Cardiomyopathy Code(s): I42.9 - Cardiomyopathy, unspecified Status: Acute (3) PVD (peripheral vascular disease) Code(s): I73.9 - Peripheral vascular disease, unspecified Status: Acute (4) PVD (peripheral vascular disease) Code(s): I73.9 - Peripheral vascular disease, unspecified Status: Acute (5) Tobacco abuse Code(s): Z72.0 - Tobacco use Status: Acute (6) Respiratory failure Code(s): J96.90 - Respiratory failure, unspecified, unspecified whether with hypoxia or hypercapnia Status: Acute (7) Non-ST elevated myocardial infarction (non-STEMI) Code(s): I21.4 - Non-ST elevation (NSTEMI) myocardial infarction Status: Acute (8) Pulmonary edema cardiac cause Code(s): I50.1 - Left ventricular failure, unspecified Status: Acute - Plan 1.) NICM - end stage, euvolemic, refuses in state transfer, requesting transfer to [facility], d/w Dr Solis; beta ana and hellen held due to hypotension, diuresing to optimize potential extubation, he has hypernatremia, dc lopressor, start coreg 6.25 bmg bid and aldactone 25 mg po bid, continue lisinopril 2.5 mg qd, f/u bmp, bnp in am 2.) CAD - nonobstructive, continue aspirin, pravachol 3.) Encephalopathy - moderate per EEG on sedation, neuro following, appropriately verbal starting 07/28/18, still confused, s/p peg 4.) d/w case with at the bedside 07/04/18 5.) Respiratory failure - he is euvolemic, appears to be due to pulmonary and/ or encephalopathic etilology, extubated 07/09/18 but restrained and not following commands, will follow trends in mental and respiratory status, d/w at the bedside 07/19/18, placement @ [facility] pending documented stabilization on sdu x 6 hours 6.) Arrythmia - no afib on interrogation of icd, [employer], no documented afib on telemetry i am aware of, ekg from 06/20/18 reviewed, there is artifact, can not determine if this is nsr with pacs and can not r/o atrial fib , patient started on coumadin per request of his , will bridge with lovenox 1mg/kg q12h, dc aspirin, f/u cbc, inr=1.4 07/30/18 (2) Cardiomyopathy Qualifiers: Cardiomyopathy type: viral Qualified Code(s): B33.24 - Viral cardiomyopathy (6) Respiratory failure Qualifiers: Chronicity: acute Respiratory failure complication: hypoxia Qualified Code(s ): J96.01 - Acute respiratory failure with hypoxia
--- NOTE | 2018-07-30 16:03 | P.PNIM ---
Subjective Interval history: Patient appears confused, however denies any pain. No acute events per nursing. at bedside. Physical Exam Vital signs: Vital Signs 07/29/18 16:00 07/29/18 20:00 07/30/18 00:00 Temperature 97.5 F L 98.9 F Pulse Rate 85 73 75 Respiratory Rate 17 16 Blood Pressure 117/53 L 134/62 Pulse Oximetry 94 L 94 L 07/30/18 00:41 07/30/18 04:00 07/30/18 04:23 Temperature 98.9 F 96.9 F L Pulse Rate 70 79 72 Respiratory Rate 17 18 Blood Pressure 116/59 L 119/56 L Pulse Oximetry 96 95 07/30/18 08:00 07/30/18 12:00 Temperature 97.4 F L 97.5 F L Pulse Rate 69 64 Respiratory Rate 18 18 Blood Pressure 124/65 115/56 L Pulse Oximetry 97 97 Intake & Output 07/29/18 07/30/18 07/30/18 18:59 06:59 18:59 Intake Total 1000 / 1000 1015 / 1015 Output Total 350 / 350 1500 / 1500 Balance 650 / 650 -485 / -485 Weight 54 kg Intake: IV 1000 / 1000 D5W Inj 1,000 ML @ 84 mls/hr IV 1000 / 1000 .[facility] .[id number] Rx#:[id number] Tube Feeding 575 / 575 Tube Irrigant 40 / 40 Water Bolus Amount 400 / 400 Output: Urine 350 / 350 1500 / 1500 Other: # Incontinent Voids 3 Date of Last Bowel Movement 07/29/18 07/29/18 # Bowel Movements 4 # Incontinent Bowel Movements 1 Narrative: GENERAL: Patient lying in bed. Appears comfortable. Confused. SKIN: Warm and dry. HEAD: Normocephalic. EYES: No scleral icterus. No injection or drainage. NECK: Supple, trachea midline. No JVD. CARDIOVASCULAR: Regular rate and rhythm without murmurs, gallops, or rubs. RESPIRATORY: Breath sounds equal bilaterally. No accessory muscle use. GASTROINTESTINAL: Abdomen soft, non-tender, nondistended. MUSCULOSKELETAL: No cyanosis, or edema. BACK: Nontender without obvious deformity. No CVA tenderness. - Urinary Catheter Management Indwelling Urethral Catheter Cath placed during this visit: yes Urethral indwelling: Yes Reason for continuing: Acute urinary retention Insertion date: 06/20/18 Insertion time: 21:24 3-way Urethral Cath placed during this visit: yes Reason for continuing: Acute urinary retention Insertion date: 07/06/18 Insertion time: 18:00 Results - Labs CBC & Chem 7: 07/30/18 05:45 07/24/18 04:39 Laboratory Results - last 24 hr 07/29/18 07/30/18 07/30/18 19:30 00:02 04:05 WBC RBC Hgb Hct MCV MCH MCHC RDW Plt Count MPV PT INR POC Glucose 203 H 186 H 200 H 07/30/18 07/30/18 05:45 05:45 WBC 4.3 RBC 3.64 L Hgb 11.1 L Hct 34.1 L MCV 93.5 MCH 30.5 MCHC 32.6 RDW 17.1 Plt Count 139 L MPV 10.4 PT 14.0 H INR 1.4 POC Glucose - Procedures intubation/ cardiac cath. Assessment and Plan - Plan Acute Resp failurecurrently 97% on room air Resolved extubated 07/09 Continue nebulized treatments As needed Acute systolic CHF exacerbation Implanted defibrillator Has been stabilized baseline EF is 20% Continue beta-ana, Coreg, lisinopril decreased to 2.5 milligrams, Lasix on hold. Cardiology following recommending anticoagulation due to transient atrial fibrillation, Coumadin has been initiated, will monitor PT/INR. Today's INR 1.2. Lovenox used to bridge. = INR 1.4. Continue Coumadin. Continue to monitor INR. Staph aureus pneumonia Treatment completed UTI, Pseudomonas Fevers Resolved Completed ciprofloxacin Repeat UA negative Atrial fibrillation Rate controlled on beta-ana Follow on telemetry -EKG from 06/20 with Abhi khanna with RVR -AICD interrogated in June with noted nonsustained V. tach. discussed with Dr. Noonan and has agreed to start the patient on Coumadin , bridging with Lovenox per cardiology. NSTEMI Cardiology following Continue beta-ana Continue statin AKIresolved improved Follow renal function Follow urine output Avoid nephrotoxins Lasix currently on hold Hypoxic encephalopathy -Patient seen and evaluated by psychiatry who recommended Seroquel 12.5 mg twice daily. Stop bedtime dose of Ativan. Stop Depakote 250 mg p.o. twice daily for adjuvant therapy due to elevation in hepatic function tests. We will adjust Seroquel to just nightly to encourage alertness for PT participation during the day, will initiate low-dose trazodone at night; we will continue to attempt to get patient restraint free. -Consult Dr. Arreaga, neuropsychology for further recommendations, appreciate assistance. Dysphagia status post PEG placement Speech therapy following, last no recommends to keep patient n.p.o. Referring Currently on tube feeds Glucerna at 65 ml per hour and added Trev Thrombocytopenia Monitor PAD aspirin and statin continued COPD No exacerbation Continue nebulized therepies LFT Elevation LFTs stable, slightly decreased from previous labs repeat in the morning due to starting Depakote. Hyperglycemia Follow blood sugars Insulin Sliding Scale Diarrheaimproved and resolving C. difficile negative Patient on multiple laxatives as well as suppositories currently on hold added Lactinex Decubitus ulcer -Wound care saw and evaluated patient once again, recommendations for Santyl daily -Dietary following also made aware of wounds -Continue specialty mattress, no cotton on mattress surface, no be found patient , turn every 2 hours. Hold off on rectal tube per at this time. DVT Prophylaxis Lovenox Palliative care currently following, at the healthcare proxy continues aggressive treatment Discharge Planning: Awaiting SNF placement, [place] [facility] has declined patient. would like him to return back to [place]. Case management assisting with placement. Discussed Condition With: Patient, nurse, at bedside
[2018-07-30] MEDS: QUEtiapine 25 MG Tablet PO SCH (21:00)
[2018-07-30] MEDS: traZODone 50 MG Tablet PO SCH (21:00)
[2018-07-31] MEDS: Insulin NovoLOG Aspart Correctional Sugar Inj SQ SCH ×6 (00:03→22:39)
[2018-07-31] MEDS: Baclofen 10 MG Tablet PO SCH ×3 (05:54→22:40)
[2018-07-31] MEDS: Enoxaparin Inj 60 MG/0.6 ML Syringe SQ SCH (08:29)
[2018-07-31] MEDS: Potassium Chloride 20 MEQ Pwd Pkt NG/OG SCH (08:30)
[2018-07-31] MEDS: Spironolactone 25 MG Tablet PO SCH ×3 (08:31→17:22)
[2018-07-31] MEDS: Escitalopram 10 MG Tablet PO SCH (08:31)
[2018-07-31] MEDS: Carvedilol 6.25 MG Tablet PO SCH ×2 (08:31→20:47)
[2018-07-31] MEDS: Brimonidine 0.15% Opth Drops 5 ML Bottle EACH EYE SCH ×2 (08:32→20:48)
[2018-07-31] MEDS: Lisinopril 5 MG Tablet PO SCH (08:32)
[2018-07-31] MEDS: Hypromellose 0.3% Opth Gel 10 GM Bottle EACH EYE SCH ×2 (08:32→20:48)
[2018-07-31] MEDS: Collagenase Oint 30 GM Tube TOPICAL SCH (08:33)
--- NOTE | 2018-07-31 08:48 | P.PNNPSY ---
- Behavior Mild: Impulsive/agitated - Cognitive Severe: Cognitive, Attention/concentration, Confused/orientation, Insight/ awareness, Judgment/problem solving, Memory - Psychosocial Intact: Psychosocial, Family/other adjustment, Realistic expectation - Progress Notes/Response to Treatment Contents of Sessions: Adjustment, Level of consciousness Time with Patient: 30 minutes Premorbid Psychological Status: Premorbid Cognitive, Emotional and Behavioral Status: Stable. 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 The patient has no prior psychiatric difficulties, as described above. Substance abuse history is unremarkable. Behavioral Reactions of Patient and Family/Support System: Deferred. The patients family is experiencing ongoing issues of adjustment given the nature of the injury, and this aspect of recovery will require ongoing monitoring. Emotional/Behavioral Status of Patient and Family/Support System: Deferred. Pertinent issues, if appropriate to this patients clinical care, are described in detail above. Maximizing Acute Care Outcome: There are several recommendations/suggestions presented in order to maximize an optimal therapeutic outcome. VPA was placed on hold due to elevated LFT. Consider instead Keppra instead of VPA, starting at 250 BID, as an adjunct to Seroquel, again with the goal of eventually weaning him from Seroquel entirely. The is concerned that Seroquel is making him too sedated, which may or may not be the case. Second, please consider d/c'ing Ativan and any other benzo because these medications tend to make elderly patients with compromised neuropsychological functions worse. Rather, encourage normal sleep-wake cycles , and augment this encouragement with either Trazodone or melatonin. It would be nice to get him out of two-point restraints. Consider ordering a [place] Bed to facilitate agitation management. I would be happy to provide education to the family, staff etc., if you choose this route. I have had excellent results from a neurobehavioral management standpoint with Waterbury Beds. Consider no vitals at night to also facilitate sleep-wake cycle. Have PT/OT work with patient during the day as tolerated, with the goal of keeping him up during the day, sleeping at night. I will also order the Agitated Behavior Scale in order to monitor his agitation, and effectiveness of pharmacological intervention. At this point in the recovery process, the patient does not have cognitive capacity as the patient is unable to understand a situation and its likely consequences, nor is the patient able to manipulate information rationally. Cognitive capacity will be assessed throughout the recovery process. Anticipated Problems: Ongoing areas of concern will include behavioral impulsivity, lack of insight and judgment, which is expected to improve with time and treatment. Treatment Plan: This clinician will continue to follow with you throughout the course of this patients acute care treatment, and I will be available to meet with the patient s family/support system to facilitate their understanding and the ongoing care of their family member. The goals of neuropsychological intervention shall be both educational and supportive to the family/support system as is deemed clinically appropriate. 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 Progress Note Narrative: Day 41. The patient remains confused, but he is more awake. He is still only oriented to person. VPA was placed on hold due to elevated LFTs. Consider instead Keppra instead of VPA, starting at 250 BID, as an adjunct to Seroquel, again with the goal of eventually weaning him from Seroquel entirely. His ABS today was 18 (21,14,14), which was down from 24T yesterday. Waterbury bed cannot be used at this time. Continue to work towards normalizing sleep wake cycle. I will follow. 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
--- NOTE | 2018-07-31 09:59 | P.PNPSY ---
Subjective Remarks: Patient chart reviewed, Dr. Orr consultation reviewed, Dr. Muñoz notes and recommendation reviewed. Patient seen by me with nurse. Nurse states that he appears to have improved somewhat since her last visit with him about a week ago that he is somewhat more verbal and cooperative still continues diffusely disoriented in all 4 spheres. It appears she is compliant with his medication. I do agree with Dr. Arreaga that of Depakote is not indicated in this gentleman perhaps Keppra and she mentioned would be beneficial. I agree also with continuation of the Seroquel while there may be some sedation with this I think the more significant contributor to his sedation is the benzodiazepines and also agree with Dr. Arreaga to discontinue the Ativan. Thus at this time I would recommend continuation of the Seroquel in addition of the Keppra and the discontinuation of the benzodiazepines. We will continue to follow on a as needed basis Review of Systems All other systems reviewed negative except as stated in HPI Mental Status Examination Appearance: Disheveled, Other (Soft restraints) Consciousness: Clouded Motor Activity: Other (Not formally assessed this patient currently lying hospital bed) Speech: Hesitant, Incoherent Language: Other (Patient putting 2-3 words together markedly disorganized) Fund of Knowledge: Poor Attention and Concentration: Easily distracted Mood: Other (Restricted) Affect: Blunt Thought Process & Associations: Other ([place]) Thought Content: Other (Unable to assess as patient did not engage in interview) Hallucination Type: Other (Unable to assess as patient did not engage in interview) Delusion Type: Other (Unable to assess as patient did not engage in interview) Insight: Poor Judgment: Poor Assessment and Plan - Assessment (1) Psychological and behavioral factors associated with disorders or diseases classified elsewhere Code(s): F54 - Psychological and behavioral factors associated with disorders or diseases classified elsewhere Status: Acute (2) Encephalopathy Code(s): G93.40 - Encephalopathy, unspecified Status: Acute - Plan Plan: Patient continues markedly cognitively impaired. Though per staff there is been some marginal improvement. Would agree with Dr. Arreaga's recommendations about medication management. And if patient shows some behavioral issues throughout the day small aliquots of Seroquel might be appropriate Justification for Continued Inpatient Stay: At this time patient would decompensate a place to a lower level of care Discharge Planning: To be determined by medical treatment team
--- NOTE | 2018-07-31 10:46 | P.CONWOU ---
History of Present Illness Service: 07/31/18 Consult date: 07/31/18 Reason for Consult: Stage 3 sacral ulcer Primary Care Provider: UNKNOWN Chief Complaint: Chest pain, shortness of breath History of Present Illness: Called to evaluate sacral wound PMFSH - History History Provided By: Patient, Family Member, Medical Record - Medical History Medical History: Medical History (Last Reviewed 07/31/18 @ 08:47 by Ta Kearns) BPH (benign prostatic hyperplasia) CHF (congestive heart failure) COPD (chronic obstructive pulmonary disease) Cardiac defibrillator in place Chronic bronchitis GERD (gastroesophageal reflux disease) Glaucoma Hypertension Neuropathy PVD (peripheral vascular disease) Pacemaker Surgical history unknown Type 2 diabetes mellitus - Family History Family History: Family History (Last Reviewed 07/26/18 @ 15:17 by Nicole Santizo) Other Diabetes Heart disease - Tobacco History Second Hand Smoke Exposure: Yes Smoking Status: Heavy tobacco smoker Tobacco Type: Cigarettes Packs Per Day: 1 - Alcohol History How Often Do You Have a Drink Containing Alcohol: 2 to 4 times a month - Substance Use History Substance History: No History of Abuse - Travel History Recent Travel in the [place] Within the Last 8 Weeks: Yes Recent Travel Out of the Country Within the Last 8 Weeks: No - Immunization History Tetanus Immunization: Unable to Assess Hx Influenza Vaccine This Season: Unable to Assess Medications and Allergies Active Medications: Active Medications Acetaminophen (Tylenol Liq) 650 mg NG/OG Q6H PRN PRN Reason: Pain 3-5 or fever Last Admin: 07/30/18 21:01 Dose: 650 mg Al Hydroxide/Mg Hydroxide (Milk Of Magnesia Liq) 30 ml PO Q12H PRN PRN Reason: Mild Constipation Albuterol (Duoneb Neb (Prn)) 1 ampul NEB Q4HR NEB PRN PRN Reason: SHORTNESS OF BREATH/WHEEZING Last Admin: 07/14/18 00:23 Dose: 1 ampul Artificial Tears (Genteal Severe Dry Eye Relief 0.3% Opth Gel) 1 drops EACH EYE BID [facility] Last Admin: 07/31/18 08:32 Dose: 1 drops Baclofen (Lioresal) 10 mg PO Q8HR [facility] Last Admin: 07/31/18 05:54 Dose: 10 mg Bisacodyl (Dulcolax Supp) 10 mg RECTAL DAILY PRN PRN Reason: SEVERE CONSITIPATION Bisacodyl (Dulcolax Supp) 10 mg RECTAL DAILY [facility] Last Admin: 07/19/18 11:11 Dose: Not Given Brimonidine Tartrate (Alphagan P 0.15% Opth Drops) 1 drops EACH EYE BID [facility] Last Admin: 07/31/18 08:32 Dose: 1 drops Carvedilol (Coreg) 6.25 mg PO BID [facility] Last Admin: 07/31/18 08:31 Dose: 6.25 mg Collagenase (Santyl Oint) 1 applicatio TOPICAL DAILY [facility] Last Admin: 07/31/18 08:33 Dose: 1 applicatio Dextrose (D50w Vial) 50 ml IV.PUSH UNSCH PRN PRN Reason: PER HYPOGLYCEMIA PROTOCOL Last Admin: 07/12/18 04:25 Dose: 50 ml Enoxaparin Sodium (Lovenox Inj) 50 mg SQ Q12HR [facility] Last Admin: 07/31/18 08:29 Dose: 50 mg Escitalopram Oxalate (Lexapro) 10 mg PO DAILY [facility] Last Admin: 07/31/18 08:31 Dose: 10 mg Furosemide (Lasix) 40 mg PO DAILY [facility] Last Admin: 07/28/18 00:44 Dose: Not Given Glucagon (Glucagon Inj) 1 mg OTHER PRN PRN PRN Reason: for Hypoglycemia Protocol Insulin Aspart (Novolog Insulin Correctional Sugar Inj) 0 unit SQ Q4HR [facility]; Protocol Last Admin: 07/31/18 08:39 Dose: Not Given Insulin Detemir (Levemir Inj) 5 unit SQ HS [facility] Last Admin: 07/14/18 21:24 Dose: Not Given Lactobacillus Acidophilus (Lactinex Pkt) 1 gm G-TUBE TID [facility] Last Admin: 07/31/18 08:30 Dose: 1 gm Lactulose (Lactulose Liq) 30 ml PO DAILY PRN PRN Reason: SEVERE CONSITIPATION Lactulose (Lactulose Liq) 30 ml NG/OG DAILY [facility] Last Admin: 07/23/18 09:29 Dose: 30 ml Lansoprazole (Prevacid Solutab) 30 mg NG/OG DAILY [facility] Last Admin: 07/31/18 08:31 Dose: 30 mg Lisinopril (Prinivil) 2.5 mg PO DAILY [facility] Last Admin: 07/31/18 08:32 Dose: 2.5 mg Miscellaneous (Pill Splitter) 1 each OTHER UNSCH PRN PRN Reason: SEE LABEL COMMENTS Potassium Chloride (Kcl Powder) 20 meq NG/OG DAILY [facility] Last Admin: 07/31/18 08:30 Dose: 20 meq Pravastatin Sodium (Pravachol) 40 mg PO DAILY@1800 [facility] Last Admin: 07/20/18 17:55 Dose: 40 mg Quetiapine Fumarate (Seroquel) 25 mg PO [facility] Last Admin: 07/30/18 21:00 Dose: 25 mg Senna/Docusate Sodium (Gisell-Colace) 1 tab PO BID [facility] Last Admin: 07/19/18 11:12 Dose: Not Given Sennosides (Senokot) 17.2 mg PO Q12H PRN PRN Reason: Moderate Constipation Sodium Chloride (Ns Flush) 2 ml IV.FLUSH BID [facility] Last Admin: 07/31/18 08:32 Dose: 2 ml Sodium Chloride (Ns Flush) 2 ml IV.FLUSH PRN PRN PRN Reason: FLUSH AFTER USING IV ACCESS Spironolactone (Aldactone) 25 mg PO BID@0900,1800 [facility] Last Admin: 07/31/18 08:31 Dose: 25 mg Sterile Water (Free Water) 200 ml G-TUBE Q6HR [facility] Last Admin: 07/31/18 05:54 Dose: 200 ml Terbutaline Sulfate (Brethine Inj) 1 mg SQ ONCE PRN PRN Reason: Extravasation Trazodone HCl (Desyrel) 50 mg PO [facility] Last Admin: 07/30/18 21:00 Dose: 50 mg Valproic Acid (Depakene) 250 mg PO BID [facility] Last Admin: 07/29/18 08:20 Dose: 250 mg Warfarin Sodium (Coumadin) 5 mg PO DAILY@1600 [facility] Last Admin: 07/30/18 17:05 Dose: 5 mg Allergies Allergy/AdvReac Type Severity Reaction Status Date / Time bee venom protein (honey bee) Allergy Difficulty Verified 06/20/18 22:04 [Bee sting] Breathing hydromorphone Allergy Nausea/Vomi Verified 06/20/18 22:04 ting pregabalin [From Lyrica] Allergy Anaphylaxis Verified 06/20/18 22:04 Home Medications Medication Instructions Recorded Confirmed Type aspirin 81 mg PO DAILY 06/20/18 06/20/18 History baclofen 20 mg PO TID 06/20/18 06/20/18 History brimonidine 1 drp OPHTHALMIC (EYE) TID 06/20/18 06/20/18 History cilostazol 50 mg PO BID 06/20/18 06/20/18 History gabapentin 300 mg PO TID 06/20/18 06/20/18 History metformin 1,000 mg PO BID 06/20/18 06/20/18 History omeprazole 20 mg PO DAILY 06/20/18 06/20/18 History simvastatin 20 mg PO QPM 06/20/18 06/20/18 History sitagliptin [Januvia] 100 mg PO DAILY 06/20/18 06/20/18 History umeclidinium-vilanterol [Anoro 1 inh INHALATION Q24H 06/21/18 06/21/18 History Ellipta] Physical Exam Vital signs: Vital Signs 07/30/18 12:00 07/30/18 16:00 07/30/18 20:00 Temperature 97.5 F L 97.8 F 98.4 F Pulse Rate 64 85 88 Respiratory Rate 18 18 17 Blood Pressure 115/56 L 127/62 125/62 Pulse Oximetry 97 98 96 07/31/18 00:00 07/31/18 04:00 07/31/18 08:00 Temperature 97.3 F L 97.2 F L 97.4 F L Pulse Rate 82 79 67 Respiratory Rate 18 20 16 Blood Pressure 108/63 125/60 113/58 L Pulse Oximetry 98 99 99 Intake & Output 07/30/18 07/31/18 07/31/18 18:59 06:59 18:59 Intake Total 1371 / 1371 Output Total 800 / 800 550 / 550 Balance 571 / 571 -550 / -550 Intake: Oral 480 / 480 Tube Feeding 491 / 491 Water Bolus Amount 400 / 400 Output: Urine 800 / 800 Urine Amount (Catheter) 550 / 550 Indwelling Urethral Catheter 550 / 550 Other: Date of Last Bowel Movement 07/30/18 07/30/18 # Incontinent Bowel Movements 5 - Urinary Catheter Management Indwelling Urethral Catheter Cath placed during this visit: yes Urethral indwelling: Yes Reason for continuing: Acute urinary retention Insertion date: 06/20/18 Insertion time: 21:24 3-way Urethral Cath placed during this visit: yes Reason for continuing: Acute urinary retention Insertion date: 07/06/18 Insertion time: 18:00 Wound/Pressure Injury - Patient Status Premedicated for Pain Prior to Dressing Change: No - Wound Left Hand Wound Assessment: Ongoing Wound Type: Skin Tear Is This a Chronic Wound: No Requested from Provider a Wound Care Consult: Yes Wound Bed Appearance: Peeling Skin, [place] Surrounding Tissue Appearance: Dark Red Surrounding Tissue Temperature: Warm Drainage Description: Serosanguinous Drainage Amount: None Drainage Odor: No Odor Dressing Status: Open to Air Cleansing Solution: Saline Primary Dressing: Transparent Wound Dressing Change Date: 07/14/18 Sacrum Wound Staging: Unstageable Wound Assessment: Ongoing Wound Type: Pressure Injury Is This a Chronic Wound: Yes Requested from Provider a Wound Care Consult: No (Cosme SORTO,[facility] seen 07/27) Length: 2.6 (cm) Width: 3 (cm) Depth: 0.5 (slough) Wound Bed Appearance: Yellow (slough) Wound Bed Appearance: unstageable wound with 100% slough in wound bed obscuring true destruction of tissues Surrounding Tissue Appearance: Bright Red Drainage Description: Serosanguinous Drainage Amount: Scant Drainage Odor: No Odor Dressing Status: Changed Topical: Cavilon skin barrier film spray Primary Dressing: Foam Cover Dressing: ABD pad Tape Type: Paper Wound Dressing Change Date: 07/27/18 Coccyx Wound Assessment: Ongoing Wound Type: Pressure Injury Is This a Chronic Wound: No Requested from Provider a Wound Care Consult: Yes Length: 2.0 Width: 3.5 Wound Bed Appearance: [place], Yellow Surrounding Tissue Appearance: [place] Surrounding Tissue Temperature: Warm Drainage Description: Serosanguinous Drainage Amount: Minimal Drainage Odor: No Odor Dressing Status: Changed Cleansing Solution: Saline Topical: Enzymatic Debridement Ointment Wound Packing Type: Gauze Pads Primary Dressing: Gauze Pad Cover Dressing: primapore Tape Type: Paper Wound Dressing Change Date: 07/15/18 Right Foot Wound Staging: Stage I Wound Assessment: Ongoing Wound Type: Pressure Injury Length: 1 (cm) Width: 1 (cm) Depth: 0 (intact non blanching erythema) Wound Bed Appearance: Red Drainage Amount: None Dressing Status: Open to Air (blue heel raiser boots removed) Right buttock Wound Staging: Stage III Wound Assessment: Ongoing Wound Type: Pressure Injury Is This a Chronic Wound: No Requested from Provider a Wound Care Consult: Yes Length: 2.2 Width: 2 Depth: 0.1 Wound Bed Appearance: [place], White Surrounding Tissue Appearance: [place] Surrounding Tissue Temperature: Hot Drainage Amount: Minimal Drainage Odor: No Odor Dressing Status: Open to Air Cleansing Solution: Saline Topical: Enzymatic Debridement Ointment Primary Dressing: Gauze Pad Cover Dressing: Adhesive Dressing Tape Type: Paper Wound Dressing Change Date: 07/27/18 - Additional Information Patient seen for pressure ulcer to sacral/coccyx/right buttock areas as well as new pressure injuries to feet from blue heel raiser boots. Patient alert and pleasantly confused.Sacral/ right buttocks wounds improving denuded partial thickness rectal wounds worsening from moisture /loose stools. Incision - Patient Status Premedicated for Pain Prior to Dressing Change: No - Incision Upper Abdomen Incision Assessment: Ongoing Incision Type: Incision Incision Description: Intact, Open Incision Bed Appearance: [place] Surrounding Tissue Appearance: [place] Surrounding Tissue Temperature: Warm Drainage Amount: None Incision Dressing Status: Changed Topical: Medicated Ointment Incision Packing Type: Gauze Pads Primary Dressing: Drainage Sponge Cover Dressing: Gauze Pads Tape Type: Paper Assessment and Plan - Assessment (1) Stage 3 skin ulcer of sacral region Code(s): L98.429 - Non-pressure chronic ulcer of back with unspecified severity Status: Acute
--- NOTE | 2018-07-31 13:56 | P.PNCA ---
Subjective Interval history: verbal in nad Physical Exam Vital signs: Vital Signs 07/30/18 16:00 07/30/18 20:00 07/31/18 00:00 Temperature 97.8 F 98.4 F 97.3 F L Pulse Rate 85 88 82 Respiratory Rate 18 18 Blood Pressure 127/62 125/62 108/63 Pulse Oximetry 98 96 98 07/31/18 04:00 07/31/18 08:00 07/31/18 11:59 Temperature 97.2 F L 97.4 F L 97.8 F Pulse Rate 79 67 62 Respiratory Rate 20 16 16 Blood Pressure 125/60 113/58 L 110/59 L Pulse Oximetry 99 99 99 Intake & Output 07/30/18 07/31/18 07/31/18 18:59 06:59 18:59 Intake Total 1371 / 1371 Output Total 800 / 800 550 / 550 Balance 571 / 571 -550 / -550 Intake: Oral 480 / 480 Tube Feeding 491 / 491 Water Bolus Amount 400 / 400 Output: Urine 800 / 800 Urine Amount (Catheter) 550 / 550 Indwelling Urethral Catheter 550 / 550 Other: Date of Last Bowel Movement 07/30/18 07/30/18 # Incontinent Bowel Movements 5 - Urinary Catheter Management Indwelling Urethral Catheter Cath placed during this visit: yes Urethral indwelling: Yes Reason for continuing: Acute urinary retention Insertion date: 06/20/18 Insertion time: 21:24 3-way Urethral Cath placed during this visit: yes Reason for continuing: Acute urinary retention Insertion date: 07/06/18 Insertion time: 18:00 Assessment and Plan - Assessment (1) Cardiomyopathy Code(s): I42.9 - Cardiomyopathy, unspecified Status: Acute (2) Cardiomyopathy Code(s): I42.9 - Cardiomyopathy, unspecified Status: Acute (3) PVD (peripheral vascular disease) Code(s): I73.9 - Peripheral vascular disease, unspecified Status: Acute (4) PVD (peripheral vascular disease) Code(s): I73.9 - Peripheral vascular disease, unspecified Status: Acute (5) Tobacco abuse Code(s): Z72.0 - Tobacco use Status: Acute (6) Respiratory failure Code(s): J96.90 - Respiratory failure, unspecified, unspecified whether with hypoxia or hypercapnia Status: Acute (7) Non-ST elevated myocardial infarction (non-STEMI) Code(s): I21.4 - Non-ST elevation (NSTEMI) myocardial infarction Status: Acute (8) Pulmonary edema cardiac cause Code(s): I50.1 - Left ventricular failure, unspecified Status: Acute - Plan 1.) NICM - end stage, euvolemic, refuses in state transfer, requesting transfer to [facility], d/w Dr Solis; beta ana and hellen held due to hypotension, diuresing to optimize potential extubation, he has hypernatremia, dc lopressor, start coreg 6.25 bmg bid and aldactone 25 mg po bid, continue lisinopril 2.5 mg qd, f/u bmp, bnp in am 2.) CAD - nonobstructive, continue aspirin, pravachol 3.) Encephalopathy - moderate per EEG on sedation, neuro following, appropriately verbal starting 07/28/18, still confused, s/p peg 4.) d/w case with at the bedside 07/04/18 5.) Respiratory failure - he is euvolemic, appears to be due to pulmonary and/ or encephalopathic etilology, extubated 07/09/18 but restrained and not following commands, will follow trends in mental and respiratory status, d/w at the bedside 07/19/18, placement @ [facility] pending documented stabilization on sdu x 6 hours 6.) Arrythmia - no afib on interrogation of icd, [employer], no documented afib on telemetry i am aware of, ekg from 06/20/18 reviewed, there is artifact, can not determine if this is nsr with pacs and can not r/o atrial fib , patient started on coumadin per request of his , will bridge with lovenox 1mg/kg q12h, dc aspirin, f/u cbc, inr=1.4 07/30/18, f/u cbc and inr in am (2) Cardiomyopathy Qualifiers: Cardiomyopathy type: viral Qualified Code(s): B33.24 - Viral cardiomyopathy (6) Respiratory failure Qualifiers: Chronicity: acute Respiratory failure complication: hypoxia Qualified Code(s ): J96.01 - Acute respiratory failure with hypoxia
[2018-07-31 15:36] LABS: Baso % (Auto) 0.8 % (0.0-2.0); Eos % (Auto) 0.5 % (0.0-4.0); Hemoglobin 11.1 gm/dL (13.0-17.0); Lymph % (Auto) 39.1 % (9.0-44.0); Mean Corpuscular HGB Conc 32.7 % (32.0-36.0); Mean Corpuscular Hemoglobin 30.8 pg (27.0-34.0); Mean Platelet Volume 10.4 fL (7.0-11.0); Mono # (Auto) 0.8 th/mm3 (0.0-0.9); Mono % (Auto) 14.9 % (0.0-8.0); Neut # (Auto) 2.3 th/mm3 (1.8-7.7); Neut % (Auto) 44.7 % (16.0-70.0); Platelet Count 159 th/mm3 (150-450); Red Blood Count 3.62 mil/mm3 (4.50-5.90); Red Cell Distribution Width 17.2 % (11.6-17.2); White Blood Count 5.1 th/mm3 (4.0-11.0)
[2018-07-31 15:46] LABS: INR 1.4 Ratio; Prothrombin Time 14.2 sec (9.8-11.6)
--- NOTE | 2018-07-31 16:07 | P.PNPAL ---
Reason for Visit Reason for visit: a. To assist with evaluation and management of symptoms including: encephalopathy,dyspnea, pain, agitation, debility. b. To assist medical decision maker(s) with: better understanding of current medical conditions; weighing benefits/burdens of medical treatment options; making medical treatment decisions. Subjective Subjective/Interval History: Pt in bed, just had maroon loose BM. HH is stable, hgb 11.1 today. On lovenox , coumadin. GI consult pending. Pt has abd TTP on exam evidenced by grimacing although verbally he denies pain. He was grimacing while being positioned after being cleaned. has multiple pressure sores. Wound care is following. He is unable to qualify or quantify his pain. He is still confused and oriented to self. reports that he told her he thought he was dying and that he was in a casket. He is able to participate minimally in therapy, generally too confused to do aggressive therapy, needs assistance. reports he was happy to be assisted to standing position. He is still in restraints. Reportedly when he is not, he picks at his wounds and his condom cath. He appears less agitated today, not terribly restless and not moving his BUE and fidgeting as much as other days. Family/Friend Interactions: continues to express aggressive goals. Discussed with her that his cognitive status may not improve, he could remain somewhat incontinent, he is not likely to return to his former baseline. She verbalizes understanding, "I' m okay with taking care of him, just not at home." She is hoping for acceptance at a different hospital in [place]. She is not ready to think about or discuss what she would do if he is not accepted to any facility in [place]. Also discussed that he may need to be somewhat sedated in order to be out of restraints in order to be accepted to another facility. She verbalized understanding. Regarding his new possible GIB, discussed with watchful waiting vs endoscopy and she was unable to decide at this time. Advance Directives Living Will: Never completed Health Care Surrogate: Never completed Durable Power of Follow Up Clerk: Never completed Objective Vital Signs: Vital Signs 07/30/18 16:00 07/30/18 20:00 07/31/18 00:00 Temperature 97.8 F 98.4 F 97.3 F L Pulse Rate 85 88 82 Respiratory Rate 18 Blood Pressure 127/62 125/62 108/63 Pulse Oximetry 98 96 98 07/31/18 04:00 07/31/18 08:00 07/31/18 11:59 Temperature 97.2 F L 97.4 F L 97.8 F Pulse Rate 79 67 62 Respiratory Rate 20 16 16 Blood Pressure 125/60 113/58 L 110/59 L Pulse Oximetry 99 99 99 Intake & Output 07/30/18 07/31/18 07/31/18 18:59 06:59 18:59 Intake Total 1371 / 1371 Output Total 800 / 800 550 / 550 Balance 571 / 571 -550 / -550 Intake: Oral 480 / 480 Tube Feeding 491 / 491 Water Bolus Amount 400 / 400 Output: Urine 800 / 800 Urine Amount (Catheter) 550 / 550 Indwelling Urethral Catheter 550 / 550 Other: Date of Last Bowel Movement 07/30/18 07/30/18 # Incontinent Bowel Movements 5 Physical Exam: SKIN: No jaundice, rashes, or lesions. Skin temperature appropriate. Not diaphoretic. EYES: No scleral icterus. No injection or drainage. Fundi not examined. ENT: Nose without bleeding or purulent drainage. CARDIOVASCULAR: RRR RESPIRATORY/CHEST: Symmetric, unlabored respirations. CTA GASTROINTESTINAL: ABD soft, mildly tender to palpation, mildly distended, BS + + PEG tube MUSCULOSKELETAL: Extremities without clubbing, cyanosis, or edema. No mottling or clubbing. + muscle wasting BLE NEUROLOGICAL: cooperative, pleasantly confused. Oriented to self. PSYCHIATRIC: calm today Diagnostic Tests Laboratory: Laboratory Results - last 72 hr 07/28/18 07/28/18 07/29/18 16:00 21:13 01:08 WBC RBC Hgb Hct MCV MCH MCHC RDW Plt Count MPV Neut % (Auto) Lymph % (Auto) [place] % (Auto) Eos % (Auto) Baso % (Auto) Neut # (Auto) Lymph # (Auto) [place] # (Auto) Eos # (Auto) Baso # (Auto) WBC Differential Differential Comment PT INR POC Glucose 212 H 162 H 179 H Total Bilirubin Direct Bilirubin Indirect Bilirubin AST ALT Alkaline Phosphatase Total Protein Albumin Prealbumin 07/29/18 07/29/18 07/29/18 03:49 04:01 05:01 WBC 4.2 RBC 3.73 L Hgb 11.5 L Hct 34.8 L MCV 93.3 MCH 30.9 MCHC 33.1 RDW 16.4 Plt Count 143 L D MPV 11.3 H Neut % (Auto) Lymph % (Auto) [place] % (Auto) Eos % (Auto) Baso % (Auto) Neut # (Auto) Lymph # (Auto) [place] # (Auto) Eos # (Auto) Baso # (Auto) WBC Differential Differential Comment PT 12.5 H INR 1.2 POC Glucose 146 H Total Bilirubin Direct Bilirubin Indirect Bilirubin AST ALT Alkaline Phosphatase Total Protein Albumin Prealbumin 07/29/18 07/29/18 07/29/18 05:02 07:16 11:20 WBC RBC Hgb Hct MCV MCH MCHC RDW Plt Count MPV Neut % (Auto) Lymph % (Auto) [place] % (Auto) Eos % (Auto) Baso % (Auto) Neut # (Auto) Lymph # (Auto) [place] # (Auto) Eos # (Auto) Baso # (Auto) WBC Differential Differential Comment PT INR POC Glucose 224 H 135 H Total Bilirubin 0.3 Direct Bilirubin 0.2 Indirect Bilirubin 0.1 AST 100 H ALT 96 H Alkaline Phosphatase 280 H Total Protein 7.3 Albumin 2.4 L Prealbumin 07/29/18 07/29/18 07/30/18 15:32 19:30 00:02 WBC RBC Hgb Hct MCV MCH MCHC RDW Plt Count MPV Neut % (Auto) Lymph % (Auto) [place] % (Auto) Eos % (Auto) Baso % (Auto) Neut # (Auto) Lymph # (Auto) [place] # (Auto) Eos # (Auto) Baso # (Auto) WBC Differential Differential Comment PT INR POC Glucose 219 H 203 H 186 H Total Bilirubin Direct Bilirubin Indirect Bilirubin AST ALT Alkaline Phosphatase Total Protein Albumin Prealbumin 07/30/18 07/30/18 07/30/18 04:05 05:45 05:45 WBC 4.3 RBC 3.64 L Hgb 11.1 L Hct 34.1 L MCV 93.5 MCH 30.5 MCHC 32.6 RDW 17.1 Plt Count 139 L MPV 10.4 Neut % (Auto) Lymph % (Auto) [place] % (Auto) Eos % (Auto) Baso % (Auto) Neut # (Auto) Lymph # (Auto) [place] # (Auto) Eos # (Auto) Baso # (Auto) WBC Differential Differential Comment PT 14.0 H INR 1.4 POC Glucose 200 H Total Bilirubin Direct Bilirubin Indirect Bilirubin AST ALT Alkaline Phosphatase Total Protein Albumin Prealbumin 07/30/18 07/30/18 07/31/18 16:55 21:09 00:02 WBC RBC Hgb Hct MCV MCH MCHC RDW Plt Count MPV Neut % (Auto) Lymph % (Auto) [place] % (Auto) Eos % (Auto) Baso % (Auto) Neut # (Auto) Lymph # (Auto) [place] # (Auto) Eos # (Auto) Baso # (Auto) WBC Differential Differential Comment PT INR POC Glucose 234 H 247 H 123 H Total Bilirubin Direct Bilirubin Indirect Bilirubin AST ALT Alkaline Phosphatase Total Protein Albumin Prealbumin 07/31/18 07/31/18 07/31/18 03:58 07:49 11:21 WBC RBC Hgb Hct MCV MCH MCHC RDW Plt Count MPV Neut % (Auto) Lymph % (Auto) [place] % (Auto) Eos % (Auto) Baso % (Auto) Neut # (Auto) Lymph # (Auto) [place] # (Auto) Eos # (Auto) Baso # (Auto) WBC Differential Differential Comment PT INR POC Glucose 221 H 130 H 213 H Total Bilirubin Direct Bilirubin Indirect Bilirubin AST ALT Alkaline Phosphatase Total Protein Albumin Prealbumin 07/31/18 07/31/18 07/31/18 11:36 11:40 15:10 WBC RBC Hgb Hct MCV MCH MCHC RDW Plt Count MPV Neut % (Auto) Lymph % (Auto) [place] % (Auto) Eos % (Auto) Baso % (Auto) Neut # (Auto) Lymph # (Auto) [place] # (Auto) Eos # (Auto) Baso # (Auto) WBC Differential Differential Comment PT 14.2 H INR 1.4 POC Glucose 195 H Total Bilirubin Direct Bilirubin Indirect Bilirubin AST ALT Alkaline Phosphatase Total Protein Albumin Prealbumin 18 L 07/31/18 15:10 WBC 5.1 RBC 3.62 L Hgb 11.1 L Hct 34.0 L MCV 94.0 MCH 30.8 MCHC 32.7 RDW 17.2 Plt Count 159 MPV 10.4 Neut % (Auto) 44.7 Lymph % (Auto) 39.1 [place] % (Auto) 14.9 H Eos % (Auto) 0.5 Baso % (Auto) 0.8 Neut # (Auto) 2.3 Lymph # (Auto) 2.0 [place] # (Auto) 0.8 Eos # (Auto) 0.0 Baso # (Auto) 0.0 WBC Differential . Differential Comment Auto diff final PT INR POC Glucose Total Bilirubin Direct Bilirubin Indirect Bilirubin AST ALT Alkaline Phosphatase Total Protein Albumin Prealbumin Result Diagrams: 07/31/18 15:10 07/24/18 04:39 Imaging: ITS Impressions Abdomen/Bladder Ultrasound 06/21/18 00:00 CONCLUSION: 1. Increased echogenicity of both kidneys typical of chronic parenchymal disease. 2. No evidence of acute obstructive uropathy. 3. Bilateral benign appearing renal cysts. Abdomen/Pelvis CT 07/04/18 00:00 CONCLUSION: The bulging in the right lower quadrant is related to distention of the cecum. Abdomen X-Ray 07/10/18 08:00 CONCLUSION: No evidence of obstruction. Chest X-Ray 07/12/18 00:00 CONCLUSION: 1. Persistent mild patchy bibasilar airspace disease, likely atelectasis. 2. No significant interval change following expiration. Head CT 07/12/18 00:00 CONCLUSION: 1. No acute intracranial abnormality. 2. Atrophy. 3. Increased density seen throughout the mastoid air cells and middle ear regions. . Procedures: 06/23 reintubated 06/26 heart cath 07/09 extubated Assessment and Plan - Disease Oriented Problem List (1) Respiratory failure (2) Non-ST elevated myocardial infarction (non-STEMI) (3) Cardiomyopathy (4) PVD (peripheral vascular disease) (5) Tobacco abuse (6) Constipation Pertinent Non-Medical Issues: Psychosocial: Pt originally from [place]. with 4 kids. 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 Spiritual: mandaeism. decline junior marketing associate visit. Legal: Per [place] statute is proxy decision maker. Ethical issues impacting care: none Important Contacts: Kristine Avila, - [phone] Prognosis: This is a 72-year-old male with history CHF, COPD, tobacco abuse, diabetes who presented 06/20 [place] He has a defibrillator implanted. His baseline ejection fraction is 25% and he is now at less than 20%. Patient reintubated 06/23, extubated . Now with encephalopathy, no improvement and unclear if it will indeed improve. Had cardiac cath 06/26 with finding 3 vessel CAD, non ischemic dilated cardiomyopathy. He is at high risk for continued complications and decline. Code Status: Full Code Plan: - LEGAL DECISON MAKER -No written advanced directives. Patient is not capacitated to make medical decisions, uncertain if he will regain capacity. Per [place] statutes, health care proxy decision making falls to his . - FULL CODE - GOALS - continues to express aggressive goals. Discussed with her that his cognitive status may not improve, he could remain somewhat incontinent, he is not likely to return to his former baseline. She verbalizes understanding, "I'm okay with taking care of him, just not at home." She is hoping for acceptance at a different hospital in [place]. She is not ready to think about or discuss what she would do if he is not accepted to any facility in [place]. Also discussed that he may need to be somewhat sedated in order to be out of restraints in order to be accepted to another facility. She verbalized understanding. Regarding his new possible GIB, discussed with watchful waiting vs endoscopy and she was unable to decide at this time. - SYMPTOMS - * pain - multifactorial- prolonged bedbound status, mult tubes and lines, had ileus, now with DTI right buttock, bilat feet, sacrum/coccyx. chest pain prior to admission. denies pain on my eval but grimaces during palpation abd, and positioning. wound care following. Has PRN Tylenol ordered, no further pain recommendations at this time. * DIARRHEA- loose bloody maroon stool today. HH stable. hgb 11. GI consult is pending. Do not think he would do well with bowel prep, would likely need rectal tube in light of numerous pressure sores on back side. further mgmt per GI * dyspnea -reintubated 06/23. extubated 07/09. Recent N STEMI. EF < 20% . s/p cardiac cath 06/26 findings 3 vessel CAD, nonischemic dilated cardiomyopathy. CV surgery consulted, not candidate at this time. pt extubated 07/09. Denies SOB. No sign dyspnea, lungs CTA. Not on oxygen currently, sat 99 on room air. scheduled DuoNeb's, mgmt per pulmonology. * agitation - multifactorial. encephalopathy. extubated. Overall agitation has improved and pt remains mildly restless, constantly fidgeting. this has improved since he's been on seroquel. he is fairly calm today. oriented to self and pleasantly confused. still in restraints. Uncertain if encephalopathy will improve. neuropsychology following, has made recs. seroquel was decreased d /t concerns of over sedation-- in this case perhaps better to err on side of over sedating since 's goal is to get him to a facility in [place], he is unlikely to be accepted to SNF while in restraints. - Palliative care will continue to follow during hospital course as condition evolves, to assist patient/decision-maker with understanding of medical conditions, weighing benefits/burdens of treatment options, for clarification of goals of treatment. Additionally will assist with any symptoms of palliative concern Attestation Attestation: To help prompt me to consider important information that might be impacting today's encounter and assessment, information from prior notes written by myself or my colleagues may have been "brought forward" into today's note. My signature on this note, however, is an attestation that I personally performed the exam, history, and/or decision-making noted today, and, unless otherwise indicated, the interactions with patient, family, and staff as well as the review of records all occurred today. I also attest that the listed assessment and stated plan reflect my best clinical judgment today based on the combination of historical information, prior notes, and today's exam/ interactions. When time spent is documented, it refers only to time spent today by the signer, or if indicated, combined time spent today by collaborating physician/nurse practitioner.
--- NOTE | 2018-07-31 16:48 | P.PNIM ---
Subjective Interval history: Patient seen this afternoon around 4 PM. Says he is feeling all right. Still confused. Nursing reports large bloody bowel movement this afternoon. Physical Exam Vital signs: Vital Signs 07/30/18 20:00 07/31/18 00:00 07/31/18 04:00 Temperature 98.4 F 97.3 F L 97.2 F L Pulse Rate 88 82 79 Respiratory Rate 17 18 20 Blood Pressure 125/62 108/63 125/60 Pulse Oximetry 96 98 99 07/31/18 08:00 07/31/18 11:59 07/31/18 16:00 Temperature 97.4 F L 97.8 F 97.7 F Pulse Rate 67 62 72 Respiratory Rate 16 16 16 Blood Pressure 113/58 L 110/59 L 124/60 Pulse Oximetry 99 99 100 Intake & Output 07/30/18 07/31/18 07/31/18 18:59 06:59 18:59 Intake Total 1371 / 1371 Output Total 800 / 800 550 / 550 Balance 571 / 571 -550 / -550 Intake: Oral 480 / 480 Tube Feeding 491 / 491 Water Bolus Amount 400 / 400 Output: Urine 800 / 800 Urine Amount (Catheter) 550 / 550 Indwelling Urethral Catheter 550 / 550 Other: Date of Last Bowel Movement 07/30/18 07/30/18 # Incontinent Bowel Movements 5 Narrative: GENERAL: Patient lying in bed. Appears comfortable. Confused. Exam unchanged. SKIN: Warm and dry. HEAD: Normocephalic. EYES: No scleral icterus. No injection or drainage. NECK: Supple, trachea midline. No JVD. CARDIOVASCULAR: Regular rate and rhythm without murmurs, gallops, or rubs. RESPIRATORY: Breath sounds equal bilaterally. No accessory muscle use. GASTROINTESTINAL: Abdomen soft, non-tender, nondistended. MUSCULOSKELETAL: No cyanosis, or edema. BACK: Nontender without obvious deformity. No CVA tenderness. - Urinary Catheter Management Indwelling Urethral Catheter Cath placed during this visit: yes Urethral indwelling: Yes Reason for continuing: Acute urinary retention Insertion date: 06/20/18 Insertion time: 21:24 3-way Urethral Cath placed during this visit: yes Reason for continuing: Acute urinary retention Insertion date: 07/06/18 Insertion time: 18:00 Results - Labs CBC & Chem 7: 07/31/18 15:10 07/24/18 04:39 Laboratory Results - last 24 hr 07/30/18 07/30/18 07/31/18 16:55 21:09 00:02 WBC RBC Hgb Hct MCV MCH MCHC RDW Plt Count MPV Neut % (Auto) Lymph % (Auto) [place] % (Auto) Eos % (Auto) Baso % (Auto) Neut # (Auto) Lymph # (Auto) [place] # (Auto) Eos # (Auto) Baso # (Auto) WBC Differential Differential Comment PT INR POC Glucose 234 H 247 H 123 H Prealbumin 07/31/18 07/31/18 07/31/18 03:58 07:49 11:21 WBC RBC Hgb Hct MCV MCH MCHC RDW Plt Count MPV Neut % (Auto) Lymph % (Auto) [place] % (Auto) Eos % (Auto) Baso % (Auto) Neut # (Auto) Lymph # (Auto) [place] # (Auto) Eos # (Auto) Baso # (Auto) WBC Differential Differential Comment PT INR POC Glucose 221 H 130 H 213 H Prealbumin 07/31/18 07/31/18 07/31/18 11:36 11:40 15:10 WBC RBC Hgb Hct MCV MCH MCHC RDW Plt Count MPV Neut % (Auto) Lymph % (Auto) [place] % (Auto) Eos % (Auto) Baso % (Auto) Neut # (Auto) Lymph # (Auto) [place] # (Auto) Eos # (Auto) Baso # (Auto) WBC Differential Differential Comment PT 14.2 H INR 1.4 POC Glucose 195 H Prealbumin 18 L 07/31/18 15:10 WBC 5.1 RBC 3.62 L Hgb 11.1 L Hct 34.0 L MCV 94.0 MCH 30.8 MCHC 32.7 RDW 17.2 Plt Count 159 MPV 10.4 Neut % (Auto) 44.7 Lymph % (Auto) 39.1 [place] % (Auto) 14.9 H Eos % (Auto) 0.5 Baso % (Auto) 0.8 Neut # (Auto) 2.3 Lymph # (Auto) 2.0 [place] # (Auto) 0.8 Eos # (Auto) 0.0 Baso # (Auto) 0.0 WBC Differential . Differential Comment Auto diff final PT INR POC Glucose Prealbumin - Procedures intubation/ cardiac cath. Assessment and Plan - Plan Acute Resp failurecurrently 97% on room air Resolved extubated 07/09 Continue nebulized treatments As needed //Lower GI bleed 07/31. Large bloody diarrhea reported by nursing. PEG tube residual with only tube feeds. Will reconsult GI. Appreciate assistance. Follow hemoglobin. Hold warfarin and stop Lovenox. Acute systolic CHF exacerbation Implanted defibrillator Has been stabilized baseline EF is 20% Continue beta-ana, Coreg, lisinopril decreased to 2.5 milligrams, Lasix on hold. Cardiology following recommending anticoagulation due to transient atrial fibrillation, Coumadin has been initiated, will monitor PT/INR. Today's INR 1.2. Lovenox used to bridge. = INR 1.4. Continue Coumadin. Continue to monitor INR. Staph aureus pneumonia Treatment completed UTI, Pseudomonas Fevers Resolved Completed ciprofloxacin Repeat UA negative Atrial fibrillation Rate controlled on beta-ana Follow on telemetry -EKG from 06/20 with Abhi khanna with RVR -AICD interrogated in June with noted nonsustained V. tach. discussed with Dr. Noonan and has agreed to start the patient on Coumadin , bridging with Lovenox per cardiology. = 07/31. Due to lower GI bleed. Will stop warfarin and Lovenox. Really patient has never had a stroke, recently not found to be in atrial fibrillation on pacer interrogation, and now with GI bleed. NSTEMI Cardiology following Continue beta-ana Continue statin AKIresolved improved Follow renal function Follow urine output Avoid nephrotoxins Lasix currently on hold Hypoxic encephalopathy -Patient seen and evaluated by psychiatry who recommended Seroquel 12.5 mg twice daily. Stop bedtime dose of Ativan. Stop Depakote 250 mg p.o. twice daily for adjuvant therapy due to elevation in hepatic function tests. We will adjust Seroquel to just nightly to encourage alertness for PT participation during the day, will initiate low-dose trazodone at night; we will continue to attempt to get patient restraint free. -Consult Dr. Arreaga, neuropsychology for further recommendations, appreciate assistance. Dysphagia status post PEG placement Speech therapy following, last no recommends to keep patient n.p.o. Moderate malnutrition Currently on tube feeds Glucerna at 65 ml per hour and added Trev Thrombocytopenia Monitor PAD aspirin and statin continued COPD No exacerbation Continue nebulized therepies LFT Elevation LFTs stable, slightly decreased from previous labs repeat in the morning due to starting Depakote. Hyperglycemia Follow blood sugars Insulin Sliding Scale Decubitus ulcer -Wound care saw and evaluated patient once again, recommendations for Santyl daily -Dietary following also made aware of wounds -Continue specialty mattress, no cotton on mattress surface, no be found patient , turn every 2 hours. Hold off on rectal tube per at this time. DVT Prophylaxis Lovenox Palliative care currently following, at the healthcare proxy continues aggressive treatment Discharge Planning: Awaiting SNF placement, [facility] has declined patient. would like him to return back to [place]. Case management assisting with placement. Discharge Planning: Patient will need SNF Appreciate case management assistance = Currently watching lower GI bleed.
--- NOTE | 2018-07-31 17:21 | P.PNGI ---
Subjective Interval history: Mr. Cárdenas is a 73-year-old male patient who I practice has been reconsulted to see due to having 2 large maroon loose bowel movements this afternoon. Patient was receiving Lovenox and Coumadin both of which are on hold at this time. Patient was started on warfarin 5 mg p.o. daily for patient has history of atrial fibrillation per cardiology. Labs reviewed July 31, 2018 at 1510 WBC 5.1 RBC 3.62 hemoglobin 11.1 hematocrit 34.0 platelet count 159. PT 14.2 INR 1.4. Patient spouse at bedside she reports the patient's last EGD was done July 17 wherein a PEG feeding tube was inserted by Dr. Cook. She reports patient had last colonoscopy in the spring 2017 which revealed a normal exam with no polyps. Colonoscopy was done at the local hospital in [place]. Current tube feeding of Glucerna 1.5 at a rate of 65 mL's per hour infusing. Abdomen is soft nontender on palpation patient denies abdominal pain no grimacing or signs of discomfort noted. Our practice has been asked to evaluate this patient for GI bleeding. <Alisa Huber - Last Filed: 07/31/18 17:34> Physical Exam Vital signs: Vital Signs 07/30/18 20:00 07/31/18 00:00 07/31/18 04:00 Temperature 98.4 F 97.3 F L 97.2 F L Pulse Rate 88 82 79 Respiratory Rate 17 18 20 Blood Pressure 125/62 108/63 125/60 Pulse Oximetry 96 98 99 07/31/18 08:00 07/31/18 11:59 07/31/18 16:00 Temperature 97.4 F L 97.8 F 97.7 F Pulse Rate 67 62 72 Respiratory Rate 16 16 16 Blood Pressure 113/58 L 110/59 L 124/60 Pulse Oximetry 99 99 100 Intake & Output 07/30/18 07/31/18 07/31/18 18:59 06:59 18:59 Intake Total 1371 / 1371 Output Total 800 / 800 550 / 550 Balance 571 / 571 -550 / -550 Intake: Oral 480 / 480 Tube Feeding 491 / 491 Water Bolus Amount 400 / 400 Output: Urine 800 / 800 Urine Amount (Catheter) 550 / 550 Indwelling Urethral Catheter 550 / 550 Other: Date of Last Bowel Movement 07/30/18 07/30/18 # Incontinent Bowel Movements 5 - Constitutional no acute distress - Routine HEENT Exam Head: Present: normocephalic Eye: Absent: conjunctival icterus - Routine Neck Exam Present: supple. Absent: JVD - Routine Respiratory Exam Present: CTA bilaterally. Absent: accessory muscle use, respiratory distress - Routine Cardiovascular Exam Present: RRR - Routine Abdominal Exam Present: soft, normoactive bowel sounds. Absent: tenderness, distended, guarding, firm - Routine Extremities Exam Present: pulses intact. Absent: cyanosis, edema - Routine Skin Exam Present: dry, warm. Absent: cyanosis, mottling - Routine Neurological Exam Present: alert Patient confused at baseline and unchanged at this time - Detailed Neurological Exam: Coma Scale Eye Opening: Spontaneous Verbal Response: Confused - Urinary Catheter Management Indwelling Urethral Catheter Cath placed during this visit: yes Urethral indwelling: Yes Reason for continuing: Acute urinary retention Insertion date: 06/20/18 Insertion time: 21:24 3-way Urethral Cath placed during this visit: yes Reason for continuing: Acute urinary retention Insertion date: 07/06/18 Insertion time: 18:00 <Alisa Huber - Last Filed: 07/31/18 17:34> Vital signs: Vital Signs 07/31/18 00:00 07/31/18 04:00 07/31/18 08:00 Temperature 97.3 F L 97.2 F L 97.4 F L Pulse Rate 82 79 67 Respiratory Rate 18 20 16 Blood Pressure 108/63 125/60 113/58 L Pulse Oximetry 98 99 99 07/31/18 11:59 07/31/18 16:00 07/31/18 20:00 Temperature 97.8 F 97.7 F 97.5 F L Pulse Rate 62 72 87 Respiratory Rate 16 16 16 Blood Pressure 110/59 L 124/60 102/65 Pulse Oximetry 99 100 94 L Intake & Output 07/31/18 07/31/18 08/01/18 06:59 18:59 06:59 Intake Total 1100 / 1100 Output Total 550 / 550 Balance -550 / -550 1100 / 1100 Intake: Oral 1100 / 1100 Output: Urine Amount (Catheter) 550 / 550 Indwelling Urethral Catheter 550 / 550 Other: # Voids 5 Date of Last Bowel Movement 07/30/18 # Bowel Movements 6 - Urinary Catheter Management Indwelling Urethral Catheter Cath placed during this visit: no 3-way Urethral Cath placed during this visit: no <Trevor Jones - Last Filed: 07/31/18 21:50> Results - Labs CBC & Chem 7: 07/31/18 15:10 07/24/18 04:39 Laboratory Results - last 24 hr 07/30/18 07/31/18 07/31/18 21:09 00:02 03:58 WBC RBC Hgb Hct MCV MCH MCHC RDW Plt Count MPV Neut % (Auto) Lymph % (Auto) [place] % (Auto) Eos % (Auto) Baso % (Auto) Neut # (Auto) Lymph # (Auto) [place] # (Auto) Eos # (Auto) Baso # (Auto) WBC Differential Differential Comment PT INR POC Glucose 247 H 123 H 221 H Prealbumin 07/31/18 07/31/18 07/31/18 07:49 11:21 11:36 WBC RBC Hgb Hct MCV MCH MCHC RDW Plt Count MPV Neut % (Auto) Lymph % (Auto) [place] % (Auto) Eos % (Auto) Baso % (Auto) Neut # (Auto) Lymph # (Auto) [place] # (Auto) Eos # (Auto) Baso # (Auto) WBC Differential Differential Comment PT INR POC Glucose 130 H 213 H 195 H Prealbumin 07/31/18 07/31/18 07/31/18 11:40 15:10 15:10 WBC 5.1 RBC 3.62 L Hgb 11.1 L Hct 34.0 L MCV 94.0 MCH 30.8 MCHC 32.7 RDW 17.2 Plt Count 159 MPV 10.4 Neut % (Auto) 44.7 Lymph % (Auto) 39.1 [place] % (Auto) 14.9 H Eos % (Auto) 0.5 Baso % (Auto) 0.8 Neut # (Auto) 2.3 Lymph # (Auto) 2.0 [place] # (Auto) 0.8 Eos # (Auto) 0.0 Baso # (Auto) 0.0 WBC Differential . Differential Comment Auto diff final PT 14.2 H INR 1.4 POC Glucose Prealbumin 18 L - Procedures intubation/ cardiac cath. <Alisa Huber - Last Filed: 07/31/18 17:34> - Labs CBC & Chem 7: 07/31/18 15:10 07/24/18 04:39 Laboratory Results - last 24 hr 07/31/18 07/31/18 07/31/18 00:02 03:58 07:49 WBC RBC Hgb Hct MCV MCH MCHC RDW Plt Count MPV Neut % (Auto) Lymph % (Auto) [place] % (Auto) Eos % (Auto) Baso % (Auto) Neut # (Auto) Lymph # (Auto) [place] # (Auto) Eos # (Auto) Baso # (Auto) WBC Differential Differential Comment PT INR POC Glucose 123 H 221 H 130 H Prealbumin 07/31/18 07/31/18 07/31/18 11:21 11:36 11:40 WBC RBC Hgb Hct MCV MCH MCHC RDW Plt Count MPV Neut % (Auto) Lymph % (Auto) [place] % (Auto) Eos % (Auto) Baso % (Auto) Neut # (Auto) Lymph # (Auto) [place] # (Auto) Eos # (Auto) Baso # (Auto) WBC Differential Differential Comment PT INR POC Glucose 213 H 195 H Prealbumin 18 L 07/31/18 07/31/18 07/31/18 15:10 15:10 17:05 WBC 5.1 RBC 3.62 L Hgb 11.1 L Hct 34.0 L MCV 94.0 MCH 30.8 MCHC 32.7 RDW 17.2 Plt Count 159 MPV 10.4 Neut % (Auto) 44.7 Lymph % (Auto) 39.1 [place] % (Auto) 14.9 H Eos % (Auto) 0.5 Baso % (Auto) 0.8 Neut # (Auto) 2.3 Lymph # (Auto) 2.0 [place] # (Auto) 0.8 Eos # (Auto) 0.0 Baso # (Auto) 0.0 WBC Differential . Differential Comment Auto diff final PT 14.2 H INR 1.4 POC Glucose 188 H Prealbumin 07/31/18 21:06 WBC RBC Hgb Hct MCV MCH MCHC RDW Plt Count MPV Neut % (Auto) Lymph % (Auto) [place] % (Auto) Eos % (Auto) Baso % (Auto) Neut # (Auto) Lymph # (Auto) [place] # (Auto) Eos # (Auto) Baso # (Auto) WBC Differential Differential Comment PT INR POC Glucose 204 H Prealbumin <Trevor Jones E - Last Filed: 07/31/18 21:50> Assessment and Plan (1) Hematochezia Status: Acute Code(s): K92.1 - Melena - Plan Mr. Avila is a 73-year-old male patient whom this practice has been asked to see due to having 2 large maroon loose bowel movements this afternoon. Patient was receiving Lovenox and Coumadin both of which are on hold at this time. Patient was started on Warfarin 5 mg p.o. daily for patient has history of atrial fibrillation per cardiology. Labs reviewed July 31, 2018 at 1510 reveal--> WBC 5.1 RBC 3.62 hemoglobin 11.1 hematocrit 34.0 platelet count 159. PT 14.2 INR 1.4. Patient spouse at bedside she reports the patient's last EGD was done July 17 wherein a PEG feeding tube was inserted by Dr. Cook. She reports patient had last colonoscopy in the spring 2017 which revealed a normal exam with no polyps. Colonoscopy was done at the local hospital in [place]. Current tube feeding of Glucerna 1.5 at a rate of 65 mL's per hour infusing. Abdomen is soft nontender on palpation patient denies abdominal pain no grimacing or signs of discomfort noted. Our practice has been asked to evaluate this patient for GI bleeding. Plan: -Hold Tube feedings overnight -Continue to hold Lovenox -Continue to hold Coumadin -Monitor CBC closely Q 6 hours -Transfuse if required -Protonix 40 mg IV bid -Supportive care Further recommendations to follow This patient has been seen by myself and Dr. Jones and this note is written on his behalf. <Alisa Huber - Last Filed: 07/31/18 17:34> (1) Hematochezia Status: Acute Code(s): K92.1 - Melena - Plan Patient seen and examined Agree with above Continue with current supportive care Monitor labs <Trevor Jones - Last Filed: 07/31/18 21:50>
[2018-07-31] MEDS: traZODone 50 MG Tablet PO SCH (20:47)
[2018-07-31] MEDS: QUEtiapine 25 MG Tablet PO SCH (20:47)
[2018-08-01] MEDS: Insulin NovoLOG Aspart Correctional Sugar Inj SQ SCH ×8 (00:43→23:53)
[2018-08-01 03:31] LABS: Hematocrit 33.2 % (39.0-51.0); Mean Corpuscular Hemoglobin 31.1 pg (27.0-34.0); Mean Corpuscular Volume 94.2 fL (80.0-100.0); Mean Platelet Volume 10.8 fL (7.0-11.0); Platelet Count 132 th/mm3 (150-450); Red Blood Count 3.53 mil/mm3 (4.50-5.90); Red Cell Distribution Width 17.3 % (11.6-17.2); White Blood Count 7.8 th/mm3 (4.0-11.0)
[2018-08-01 03:50] LABS: Albumin 2.2 g/dL (3.4-5.0); Calcium 8.5 mg/dL (8.5-10.1); Carbon Dioxide 23.7 meq/L (21.0-32.0); Magnesium 1.7 mg/dL (1.5-2.5); Phosphorus 4.4 mg/dL (2.5-4.9); Potassium 4.9 meq/L (3.5-5.1)
[2018-08-01] MEDS: Baclofen 10 MG Tablet PO SCH ×3 (05:22→22:17)
[2018-08-01 07:16] LABS: Baso # (Auto) 0.1 th/mm3 (0.0-0.2); Baso % (Auto) 0.8 % (0.0-2.0); Eos % (Auto) 0.2 % (0.0-4.0); Hematocrit 31.8 % (39.0-51.0); Hemoglobin 10.3 gm/dL (13.0-17.0); Lymph # (Auto) 2.4 th/mm3 (1.0-4.8); Lymph % (Auto) 35.4 % (9.0-44.0); Mean Corpuscular HGB Conc 32.5 % (32.0-36.0); Mean Corpuscular Hemoglobin 30.4 pg (27.0-34.0); Mean Corpuscular Volume 93.7 fL (80.0-100.0); Mean Platelet Volume 10.9 fL (7.0-11.0); Mono # (Auto) 0.8 th/mm3 (0.0-0.9); Mono % (Auto) 11.9 % (0.0-8.0); Neut # (Auto) 3.5 th/mm3 (1.8-7.7); Neut % (Auto) 51.7 % (16.0-70.0); Platelet Count 168 th/mm3 (150-450); Red Cell Distribution Width 17.3 % (11.6-17.2); White Blood Count 6.8 th/mm3 (4.0-11.0)
[2018-08-01] MEDS: Carvedilol 6.25 MG Tablet PO SCH ×2 (09:36→20:43)
[2018-08-01] MEDS: Potassium Chloride 20 MEQ Pwd Pkt NG/OG SCH (09:37)
[2018-08-01] MEDS: Escitalopram 10 MG Tablet PO SCH (09:38)
[2018-08-01] MEDS: Spironolactone 25 MG Tablet PO SCH ×2 (09:39→17:08)
[2018-08-01] MEDS: Lisinopril 5 MG Tablet PO SCH (09:41)
--- NOTE | 2018-08-01 09:45 | P.PNIM ---
Subjective Interval history: Patient continues confused. Denies any pain. Physical Exam Vital signs: Vital Signs 07/31/18 11:59 07/31/18 16:00 07/31/18 20:00 Temperature 97.8 F 97.7 F 97.5 F L Pulse Rate 62 72 80 Respiratory Rate 16 16 16 Blood Pressure 110/59 L 124/60 102/65 Pulse Oximetry 99 100 94 L 08/01/18 00:00 08/01/18 04:00 08/01/18 07:48 Temperature 98 F 97.2 F L 97.2 F L Pulse Rate 82 76 89 Respiratory Rate 16 18 20 Blood Pressure 104/53 L 124/58 L 105/63 Pulse Oximetry 97 99 99 Intake & Output 07/31/18 08/01/18 08/01/18 18:59 06:59 18:59 Intake Total 1100 / 1100 120 / 120 Balance 1100 / 1100 120 / 120 Intake: Oral 1100 / 1100 120 / 120 Other: # Voids 5 # Incontinent Voids 2 # Bowel Movements 6 3 Narrative: GENERAL: Patient lying in bed. Appears comfortable. Confused. SKIN: Warm and dry. HEAD: Normocephalic. EYES: No scleral icterus. No injection or drainage. NECK: Supple, trachea midline. No JVD. CARDIOVASCULAR: Regular rate and rhythm without murmurs, gallops, or rubs. RESPIRATORY: Breath sounds equal bilaterally. No accessory muscle use. GASTROINTESTINAL: Abdomen soft, non-tender, nondistended. MUSCULOSKELETAL: No cyanosis, or edema. BACK: Nontender without obvious deformity. No CVA tenderness. - Urinary Catheter Management Indwelling Urethral Catheter Cath placed during this visit: yes Urethral indwelling: Yes Reason for continuing: Acute urinary retention Insertion date: 06/20/18 Insertion time: 21:24 3-way Urethral Cath placed during this visit: yes Reason for continuing: Acute urinary retention Insertion date: 07/06/18 Insertion time: 18:00 Results - Labs CBC & Chem 7: 08/01/18 06:28 08/01/18 02:54 Laboratory Results - last 24 hr 07/31/18 07/31/18 07/31/18 11:21 11:36 11:40 WBC RBC Hgb Hct MCV MCH MCHC RDW Plt Count MPV Neut % (Auto) Lymph % (Auto) [place] % (Auto) Eos % (Auto) Baso % (Auto) Neut # (Auto) Lymph # (Auto) [place] # (Auto) Eos # (Auto) Baso # (Auto) WBC Differential Differential Comment PT INR Sodium Potassium Chloride Carbon Dioxide Anion Gap BUN Creatinine Estimated GFR POC Glucose 213 H 195 H Random Glucose Calcium Phosphorus Magnesium Albumin Prealbumin 18 L 07/31/18 07/31/18 07/31/18 15:10 15:10 17:05 WBC 5.1 RBC 3.62 L Hgb 11.1 L Hct 34.0 L MCV 94.0 MCH 30.8 MCHC 32.7 RDW 17.2 Plt Count 159 MPV 10.4 Neut % (Auto) 44.7 Lymph % (Auto) 39.1 [place] % (Auto) 14.9 H Eos % (Auto) 0.5 Baso % (Auto) 0.8 Neut # (Auto) 2.3 Lymph # (Auto) 2.0 [place] # (Auto) 0.8 Eos # (Auto) 0.0 Baso # (Auto) 0.0 WBC Differential . Differential Comment Auto diff final PT 14.2 H INR 1.4 Sodium Potassium Chloride Carbon Dioxide Anion Gap BUN Creatinine Estimated GFR POC Glucose 188 H Random Glucose Calcium Phosphorus Magnesium Albumin Prealbumin 07/31/18 08/01/18 08/01/18 21:06 00:11 02:54 WBC RBC Hgb Hct MCV MCH MCHC RDW Plt Count MPV Neut % (Auto) Lymph % (Auto) [place] % (Auto) Eos % (Auto) Baso % (Auto) Neut # (Auto) Lymph # (Auto) [place] # (Auto) Eos # (Auto) Baso # (Auto) WBC Differential Differential Comment PT INR Sodium 132 L Potassium 4.9 Chloride 100 Carbon Dioxide 23.7 Anion Gap 8 BUN 36 H Creatinine 0.91 Estimated GFR 82 L POC Glucose 204 H 226 H Random Glucose 145 H Calcium 8.5 Phosphorus 4.4 Magnesium 1.7 Albumin 2.2 L Prealbumin 08/01/18 08/01/18 08/01/18 02:54 03:48 06:28 WBC 7.8 D 6.8 RBC 3.53 L 3.40 L Hgb 11.0 L 10.3 L Hct 33.2 L 31.8 L MCV 94.2 93.7 MCH 31.1 30.4 MCHC 33.0 32.5 RDW 17.3 H 17.3 H Plt Count 132 L 168 MPV 10.8 10.9 Neut % (Auto) 51.7 Lymph % (Auto) 35.4 [place] % (Auto) 11.9 H Eos % (Auto) 0.2 Baso % (Auto) 0.8 Neut # (Auto) 3.5 Lymph # (Auto) 2.4 [place] # (Auto) 0.8 Eos # (Auto) 0.0 Baso # (Auto) 0.1 WBC Differential . Differential Comment Auto diff final PT INR Sodium Potassium Chloride Carbon Dioxide Anion Gap BUN Creatinine Estimated GFR POC Glucose 202 H Random Glucose Calcium Phosphorus Magnesium Albumin Prealbumin 08/01/18 07:41 WBC RBC Hgb Hct MCV MCH MCHC RDW Plt Count MPV Neut % (Auto) Lymph % (Auto) [place] % (Auto) Eos % (Auto) Baso % (Auto) Neut # (Auto) Lymph # (Auto) [place] # (Auto) Eos # (Auto) Baso # (Auto) WBC Differential Differential Comment PT INR Sodium Potassium Chloride Carbon Dioxide Anion Gap BUN Creatinine Estimated GFR POC Glucose 194 H Random Glucose Calcium Phosphorus Magnesium Albumin Prealbumin - Procedures intubation/ cardiac cath. Assessment and Plan - Plan Acute Resp failurecurrently 97% on room air Resolved extubated 07/09 Continue nebulized treatments As needed //Lower GI bleed //Acute blood loss anemia. 07/31. Large bloody diarrhea reported by nursing. PEG tube residual with only tube feeds. Will reconsult GI. Appreciate assistance. Follow hemoglobin. Hold warfarin and stop Lovenox. = 08/01. Hemoglobin down to 10.3 from 11 yesterday. Suspect secondary to hemorrhoids. Appreciate GI assistance. Discontinue warfarin, anticoagulation as per discussion with yesterday. Acute systolic CHF exacerbation Implanted defibrillator Has been stabilized baseline EF is 20% Continue beta-ana, Coreg, lisinopril decreased to 2.5 milligrams, Lasix on hold. Cardiology following recommending anticoagulation due to transient atrial fibrillation, Coumadin has been initiated, will monitor PT/INR. Today's INR 1.2. Lovenox used to bridge. = I hold off on therapeutic anticoagulation due to hemorrhoidal bleeding. Staph aureus pneumonia Treatment completed UTI, Pseudomonas Fevers Resolved Completed ciprofloxacin Repeat UA negative Atrial fibrillation Rate controlled on beta-ana Follow on telemetry -EKG from 06/20 with Abhi khanna with RVR -AICD interrogated in June with noted nonsustained V. tach. discussed with Dr. Noonan and has agreed to start the patient on Coumadin , bridging with Lovenox per cardiology. = 07/31. Due to lower GI bleed. Will stop warfarin and Lovenox. Really patient has never had a stroke, recently not found to be in atrial fibrillation on pacer interrogation, and now with GI bleed. NSTEMI Cardiology following Continue beta-ana Continue statin AKIresolved improved Follow renal function Follow urine output Avoid nephrotoxins Lasix currently on hold Hypoxic encephalopathy -Patient seen and evaluated by psychiatry who recommended Seroquel 12.5 mg twice daily. Stop bedtime dose of Ativan. Stop Depakote 250 mg p.o. twice daily for adjuvant therapy due to elevation in hepatic function tests. We will adjust Seroquel to just nightly to encourage alertness for PT participation during the day, will initiate low-dose trazodone at night; we will continue to attempt to get patient restraint free. -Consult Dr. Arreaga, neuropsychology for further recommendations, appreciate assistance. = We will adjust medications as per neuropsychology recommendations. Dysphagia status post PEG placement Speech therapy following, last no recommends to keep patient n.p.o. Moderate malnutrition Currently on tube feeds Glucerna at 65 ml per hour and added Trev Thrombocytopenia Monitor PAD aspirin and statin continued COPD No exacerbation Continue nebulized therepies LFT Elevation LFTs stable, slightly decreased from previous labs repeat in the morning due to starting Depakote. Hyperglycemia Follow blood sugars Insulin Sliding Scale Decubitus ulcer -Wound care saw and evaluated patient once again, recommendations for Santyl daily -Dietary following also made aware of wounds -Continue specialty mattress, no cotton on mattress surface, no be found patient , turn every 2 hours. Hold off on rectal tube per at this time. DVT Prophylaxis Lovenox Palliative care currently following, at the healthcare proxy continues aggressive treatment Discharge Planning: We will monitor hemoglobin off of ac Awaiting SNF placement, [facility] has declined patient. would like him to return back to [place]. Case management assisting with placement.
[2018-08-01] MEDS ORDERED: Phytonadione 2.5 MG/SWFI 2.5 ML Oral Syringe G-TUBE ONE (11:30)
[2018-08-01] MEDS ORDERED: Phytonadione 5 MG/SWFI 5 ML Oral Syringe G-TUBE ONE (11:45)
[2018-08-01 12:06] LABS: Baso # (Auto) 0.1 th/mm3 (0.0-0.2); Baso % (Auto) 0.8 % (0.0-2.0); Eos % (Auto) 0.4 % (0.0-4.0); Hematocrit 34.4 % (39.0-51.0); Lymph # (Auto) 2.8 th/mm3 (1.0-4.8); Lymph % (Auto) 40.5 % (9.0-44.0); Mean Corpuscular HGB Conc 31.9 % (32.0-36.0); Mean Corpuscular Hemoglobin 31.1 pg (27.0-34.0); Mean Corpuscular Volume 97.3 fL (80.0-100.0); Mean Platelet Volume 10.4 fL (7.0-11.0); Mono # (Auto) 0.8 th/mm3 (0.0-0.9); Mono % (Auto) 11.3 % (0.0-8.0); Neut # (Auto) 3.2 th/mm3 (1.8-7.7); Platelet Count 158 th/mm3 (150-450); Red Blood Count 3.54 mil/mm3 (4.50-5.90); Red Cell Distribution Width 18.3 % (11.6-17.2); White Blood Count 6.9 th/mm3 (4.0-11.0)
--- NOTE | 2018-08-01 12:55 | P.PNCA ---
Subjective Interval history: confused in nad Physical Exam Vital signs: Vital Signs 07/31/18 16:00 07/31/18 20:00 08/01/18 00:00 Temperature 97.7 F 97.5 F L 98 F Pulse Rate 72 80 82 Respiratory Rate 16 16 16 Blood Pressure 124/60 102/65 104/53 L Pulse Oximetry 100 94 L 97 08/01/18 04:00 08/01/18 07:48 08/01/18 11:21 Temperature 97.2 F L 97.2 F L 97.3 F L Pulse Rate 76 89 89 Respiratory Rate 18 20 18 Blood Pressure 124/58 L 105/63 98/54 L Pulse Oximetry 99 99 100 Intake & Output 07/31/18 08/01/18 08/01/18 18:59 06:59 18:59 Intake Total 1100 / 1100 120 / 120 Balance 1100 / 1100 120 / 120 Intake: Oral 1100 / 1100 120 / 120 Other: # Voids 5 # Incontinent Voids 2 # Bowel Movements 6 3 - Urinary Catheter Management Indwelling Urethral Catheter Cath placed during this visit: yes Urethral indwelling: Yes Reason for continuing: Acute urinary retention Insertion date: 06/20/18 Insertion time: 21:24 3-way Urethral Cath placed during this visit: yes Reason for continuing: Acute urinary retention Insertion date: 07/06/18 Insertion time: 18:00 Assessment and Plan - Assessment (1) Cardiomyopathy Code(s): I42.9 - Cardiomyopathy, unspecified Status: Acute (2) Cardiomyopathy Code(s): I42.9 - Cardiomyopathy, unspecified Status: Acute (3) PVD (peripheral vascular disease) Code(s): I73.9 - Peripheral vascular disease, unspecified Status: Acute (4) PVD (peripheral vascular disease) Code(s): I73.9 - Peripheral vascular disease, unspecified Status: Acute (5) Tobacco abuse Code(s): Z72.0 - Tobacco use Status: Acute (6) Respiratory failure Code(s): J96.90 - Respiratory failure, unspecified, unspecified whether with hypoxia or hypercapnia Status: Acute (7) Non-ST elevated myocardial infarction (non-STEMI) Code(s): I21.4 - Non-ST elevation (NSTEMI) myocardial infarction Status: Acute (8) Pulmonary edema cardiac cause Code(s): I50.1 - Left ventricular failure, unspecified Status: Acute - Plan 1.) NICM - end stage, euvolemic, refuses in state transfer, requesting transfer to [facility], d/w Dr Solis; beta ana and hellen held due to hypotension, diuresing to optimize potential extubation, he has hypernatremia, dc lopressor, start coreg 6.25 bmg bid and aldactone 25 mg po bid, continue lisinopril 2.5 mg qd, f/u bmp, bnp in am 2.) CAD - nonobstructive, continue aspirin, pravachol 3.) Encephalopathy - moderate per EEG on sedation, neuro following, appropriately verbal starting 07/28/18, still confused, s/p peg 4.) d/w case with at the bedside 07/04/18 5.) Respiratory failure - he is euvolemic, appears to be due to pulmonary and/ or encephalopathic etilology, extubated 07/09/18 but restrained and not following commands, will follow trends in mental and respiratory status, d/w at the bedside 07/19/18, placement @ [facility] pending documented stabilization on sdu x 6 hours 6.) Arrythmia - no afib on interrogation of icd, [employer], no documented afib on telemetry i am aware of, ekg from 06/20/18 reviewed, there is artifact, can not determine if this is nsr with pacs and can not r/o atrial fib , coumadin and lovenox discontinued 08/01/19 due to rectal bleed associated with skin breakdown, notes blood was dark (2) Cardiomyopathy Qualifiers: Cardiomyopathy type: viral Qualified Code(s): B33.24 - Viral cardiomyopathy (6) Respiratory failure Qualifiers: Chronicity: acute Respiratory failure complication: hypoxia Qualified Code(s ): J96.01 - Acute respiratory failure with hypoxia
--- NOTE | 2018-08-01 13:01 | P.PNGI ---
Subjective Interval history: Patient laying supine in bed. at bedside. Nurse reports patient has had 2 bowel movements this am consisting of a mixture of dark and bright red blood. Patient not verbalizing complaints but appears restless and states he is nauseated and anxious. <Alisa Huber - Last Filed: 08/01/18 13:40> Physical Exam Vital signs: Vital Signs 07/31/18 16:00 07/31/18 20:00 08/01/18 00:00 Temperature 97.7 F 97.5 F L 98 F Pulse Rate 72 80 82 Respiratory Rate 16 16 16 Blood Pressure 124/60 102/65 104/53 L Pulse Oximetry 100 94 L 97 08/01/18 04:00 08/01/18 07:48 08/01/18 11:21 Temperature 97.2 F L 97.2 F L 97.3 F L Pulse Rate 76 89 89 Respiratory Rate 18 20 18 Blood Pressure 124/58 L 105/63 98/54 L Pulse Oximetry 99 99 100 Intake & Output 07/31/18 08/01/18 08/01/18 18:59 06:59 18:59 Intake Total 1100 / 1100 120 / 120 Balance 1100 / 1100 120 / 120 Intake: Oral 1100 / 1100 120 / 120 Other: # Voids 5 # Incontinent Voids 2 # Bowel Movements 6 3 - Constitutional mild distress - Routine HEENT Exam Head: Present: normocephalic - Routine Respiratory Exam Present: CTA bilaterally. Absent: accessory muscle use - Routine Cardiovascular Exam Present: RRR - Routine Abdominal Exam Present: soft, normoactive bowel sounds. Absent: distended, guarding, firm - Routine Extremities Exam Present: full ROM, pulses intact. Absent: clubbing, edema - Routine Skin Exam Present: dry, warm. Absent: pallor - Routine Neurological Exam Present: alert - Detailed Neurological Exam: Coma Scale Eye Opening: Spontaneous Verbal Response: Confused - Urinary Catheter Management Indwelling Urethral Catheter Cath placed during this visit: yes Urethral indwelling: Yes Reason for continuing: Acute urinary retention Insertion date: 06/20/18 Insertion time: 21:24 3-way Urethral Cath placed during this visit: yes Reason for continuing: Acute urinary retention Insertion date: 07/06/18 Insertion time: 18:00 <Alisa Huber - Last Filed: 08/01/18 13:40> Vital signs: Vital Signs 08/01/18 00:00 08/01/18 04:00 08/01/18 07:48 Temperature 98 F 97.2 F L 97.2 F L Pulse Rate 82 76 89 Respiratory Rate 16 18 20 Blood Pressure 104/53 L 124/58 L 105/63 Pulse Oximetry 97 99 99 08/01/18 08:00 08/01/18 11:21 08/01/18 15:40 Temperature 97.3 F L 97.3 F L Pulse Rate 89 89 76 Respiratory Rate 18 18 16 Blood Pressure 98/54 L 111/54 L Pulse Oximetry 100 97 08/01/18 20:00 Temperature 97.4 F L Pulse Rate 66 Respiratory Rate 20 Blood Pressure 106/59 L Pulse Oximetry 99 Intake & Output 08/01/18 08/01/18 08/02/18 06:59 18:59 06:59 Intake Total 120 / 120 Balance 120 / 120 Intake: Oral 120 / 120 Other: # Incontinent Voids 2 Date of Last Bowel Movement 07/30/18 # Bowel Movements 3 - Urinary Catheter Management Indwelling Urethral Catheter Cath placed during this visit: no 3-way Urethral Cath placed during this visit: no <Trevor Jones E - Last Filed: 08/01/18 22:11> Results - Labs CBC & Chem 7: 08/01/18 11:55 08/01/18 02:54 Laboratory Results - last 24 hr 07/31/18 07/31/18 07/31/18 15:10 15:10 17:05 WBC 5.1 RBC 3.62 L Hgb 11.1 L Hct 34.0 L MCV 94.0 MCH 30.8 MCHC 32.7 RDW 17.2 Plt Count 159 MPV 10.4 Neut % (Auto) 44.7 Lymph % (Auto) 39.1 Person % (Auto) 14.9 H Eos % (Auto) 0.5 Baso % (Auto) 0.8 Neut # (Auto) 2.3 Lymph # (Auto) 2.0 Person # (Auto) 0.8 Eos # (Auto) 0.0 Baso # (Auto) 0.0 WBC Differential . Differential Comment Auto diff final PT 14.2 H INR 1.4 Sodium Potassium Chloride Carbon Dioxide Anion Gap BUN Creatinine Estimated GFR POC Glucose 188 H Random Glucose Calcium Phosphorus Magnesium Albumin 09/08/01/18 08/01/18 21:06 00:11 02:54 WBC RBC Hgb Hct MCV MCH MCHC RDW Plt Count MPV Neut % (Auto) Lymph % (Auto) Person % (Auto) Eos % (Auto) Baso % (Auto) Neut # (Auto) Lymph # (Auto) Person # (Auto) Eos # (Auto) Baso # (Auto) WBC Differential Differential Comment PT INR Sodium 132 L Potassium 4.9 Chloride 100 Carbon Dioxide 23.7 Anion Gap 8 BUN 36 H Creatinine 0.91 Estimated GFR 82 L POC Glucose 204 H 226 H Random Glucose 145 H Calcium 8.5 Phosphorus 4.4 Magnesium 1.7 Albumin 2.2 L 08/01/18 08/01/18 08/01/18 02:54 03:48 06:28 WBC 7.8 D 6.8 RBC 3.53 L 3.40 L Hgb 11.0 L 10.3 L Hct 33.2 L 31.8 L MCV 94.2 93.7 MCH 31.1 30.4 MCHC 33.0 32.5 RDW 17.3 H 17.3 H Plt Count 132 L 168 MPV 10.8 10.9 Neut % (Auto) 51.7 Lymph % (Auto) 35.4 Person % (Auto) 11.9 H Eos % (Auto) 0.2 Baso % (Auto) 0.8 Neut # (Auto) 3.5 Lymph # (Auto) 2.4 Person # (Auto) 0.8 Eos # (Auto) 0.0 Baso # (Auto) 0.1 WBC Differential . Differential Comment Auto diff final PT INR Sodium Potassium Chloride Carbon Dioxide Anion Gap BUN Creatinine Estimated GFR POC Glucose 202 H Random Glucose Calcium Phosphorus Magnesium Albumin 08/01/18 08/01/18 08/01/18 07:41 11:08 11:55 WBC 6.9 RBC 3.54 L Hgb 11.0 L Hct 34.4 L MCV 97.3 D MCH 31.1 MCHC 31.9 L RDW 18.3 H Plt Count 158 MPV 10.4 Neut % (Auto) 47.0 Lymph % (Auto) 40.5 Person % (Auto) 11.3 H Eos % (Auto) 0.4 Baso % (Auto) 0.8 Neut # (Auto) 3.2 Lymph # (Auto) 2.8 Person # (Auto) 0.8 Eos # (Auto) 0.0 Baso # (Auto) 0.1 WBC Differential . Differential Comment Auto diff final PT INR Sodium Potassium Chloride Carbon Dioxide Anion Gap BUN Creatinine Estimated GFR POC Glucose 194 H 166 H Random Glucose Calcium Phosphorus Magnesium Albumin - Procedures intubation/ cardiac cath. <Alisa Huber - Last Filed: 08/01/18 13:40> - Labs CBC & Chem 7: 08/01/18 20:13 08/01/18 02:54 Laboratory Results - last 24 hr 08/01/18 08/01/18 08/01/18 00:11 02:54 02:54 WBC 7.8 D RBC 3.53 L Hgb 11.0 L Hct 33.2 L MCV 94.2 MCH 31.1 MCHC 33.0 RDW 17.3 H Plt Count 132 L MPV 10.8 Neut % (Auto) Lymph % (Auto) Person % (Auto) Eos % (Auto) Baso % (Auto) Neut # (Auto) Lymph # (Auto) Person # (Auto) Eos # (Auto) Baso # (Auto) WBC Differential Differential Comment Sodium 132 L Potassium 4.9 Chloride 100 Carbon Dioxide 23.7 Anion Gap 8 BUN 36 H Creatinine 0.91 Estimated GFR 82 L POC Glucose 226 H Random Glucose 145 H Calcium 8.5 Phosphorus 4.4 Magnesium 1.7 Albumin 2.2 L 08/01/18 08/01/18 08/01/18 03:48 06:28 07:41 WBC 6.8 RBC 3.40 L Hgb 10.3 L Hct 31.8 L MCV 93.7 MCH 30.4 MCHC 32.5 RDW 17.3 H Plt Count 168 MPV 10.9 Neut % (Auto) 51.7 Lymph % (Auto) 35.4 Person % (Auto) 11.9 H Eos % (Auto) 0.2 Baso % (Auto) 0.8 Neut # (Auto) 3.5 Lymph # (Auto) 2.4 Person # (Auto) 0.8 Eos # (Auto) 0.0 Baso # (Auto) 0.1 WBC Differential . Differential Comment Auto diff final Sodium Potassium Chloride Carbon Dioxide Anion Gap BUN Creatinine Estimated GFR POC Glucose 202 H 194 H Random Glucose Calcium Phosphorus Magnesium Albumin 08/01/18 08/01/18 08/01/18 11:08 11:55 16:52 WBC 6.9 RBC 3.54 L Hgb 11.0 L Hct 34.4 L MCV 97.3 D MCH 31.1 MCHC 31.9 L RDW 18.3 H Plt Count 158 MPV 10.4 Neut % (Auto) 47.0 Lymph % (Auto) 40.5 Person % (Auto) 11.3 H Eos % (Auto) 0.4 Baso % (Auto) 0.8 Neut # (Auto) 3.2 Lymph # (Auto) 2.8 Person # (Auto) 0.8 Eos # (Auto) 0.0 Baso # (Auto) 0.1 WBC Differential . Differential Comment Auto diff final Sodium Potassium Chloride Carbon Dioxide Anion Gap BUN Creatinine Estimated GFR POC Glucose 166 H 224 H Random Glucose Calcium Phosphorus Magnesium Albumin 08/01/18 08/01/18 20:13 20:44 WBC 9.5 RBC 3.15 L Hgb 9.9 L Hct 29.5 L MCV 93.7 D MCH 31.4 MCHC 33.5 RDW 17.6 H Plt Count 211 D MPV 10.3 Neut % (Auto) 42.2 Lymph % (Auto) 43.6 Person % (Auto) 12.8 H Eos % (Auto) 0.5 Baso % (Auto) 0.9 Neut # (Auto) 4.0 Lymph # (Auto) 4.1 Person # (Auto) 1.2 H Eos # (Auto) 0.0 Baso # (Auto) 0.1 WBC Differential . Differential Comment Auto diff final Sodium Potassium Chloride Carbon Dioxide Anion Gap BUN Creatinine Estimated GFR POC Glucose 110 Random Glucose Calcium Phosphorus Magnesium Albumin <Trevor Jones - Last Filed: 08/01/18 22:11> Assessment and Plan (1) Hematochezia Status: Acute Code(s): K92.1 - Melena (2) Hematochezia Status: Acute Code(s): K92.1 - Melena - Plan Plan: -NPO -Continue PPI -Continue to hold Coumadin -Continue to monitor labs -Possible Colonoscopy or Flex sigmoid in the am -Bleeding scan is an option if endoscopy not an option (will discuss with patients ) -Peg tube lavage to rule out gastric bleed -Supportive care -Further recommendations to follow This patient has been seen by myself and Dr. Jones and this note is written on his behalf. *[id number]: spoke with patients at length regarding plan of care. She verbalizes understanding and is declining any invasive endoscopic procedures at this time. She has agreed for us to monitor lab work, monitor for further bleeding and do a gastric lavage to rule out gastric bleeding. She states if gastric lavage is positive for blood, she will consider consenting for upper endoscopy. <Alisa Huber - Last Filed: 08/01/18 13:40> (1) Hematochezia Status: Acute Code(s): K92.1 - Melena (2) Hematochezia Status: Acute Code(s): K92.1 - Melena - Plan Patient seen and examined Agree with above Continue with current supportive care Monitor labs The patient is at more rectal bleeding described as more maroon in color but he continues to be stable hemodynamically The is refusing any interventions at this point We will consider bleeding scan if he continues to show signs of blood loss tomorrow Further recommendations she will depend on the hospital course <Trevor Jones - Last Filed: 08/01/18 22:11>
[2018-08-01] MEDS: Collagenase Oint 30 GM Tube TOPICAL SCH (17:06)
[2018-08-01] MEDS: Brimonidine 0.15% Opth Drops 5 ML Bottle EACH EYE SCH ×2 (17:07→20:43)
[2018-08-01] MEDS: Hypromellose 0.3% Opth Gel 10 GM Bottle EACH EYE SCH ×2 (17:07→20:43)
--- NOTE | 2018-08-01 18:44 | P.DIET ---
Nutritional Evaluation Type of nutrition evaluation: follow-up Nutrition consult regarding: Tube Feeding Subjective Barriers to Nutrition: Swallowing problem Subjective Comments: TF'ing and diet on-hold. Pt's in room and she reports pt did not like the pureed food. Diet advanced 07/[address]; however, pt has not received a [facility] soft diet yet. The states pt's usual wt is 142-lb. Pt is not receiving the Trev d/t it is not on the MAR-discussed w/MACARIO Bello. Objective - Diagnosis Hypoxic Respiratory Failure, Pulmonary Edema - Objective [place] body weight: 75.5 kg % IBW: 74 Body Weight Used for Calculations: Actual (55.8kg) Energy Needs - Lower Range (kCal/kg): 38 Energy Needs - Upper Range (kCal/kg): 43 Lower Limit kCal/kg (kCals): 2,120 Upper Limit kCal/kg (kCals): 2,399 Lower Limit Protein Factor (Grams per Kg): 1.4 Upper Limit Protein Factor (Grams per Kg): 1.8 Lower Protein Needs (Protein): 78 Upper Protein Needs (Protein): 100 Dietitian Reviewed in Medical Record: Curent medications, Intake & Output, Labs , Medical history, Tube feeding Diet Order: NPO Speech Therapy Recommendations: Yes (07/31 [facility] Soft w/Chopped Meat) Wound Care Note: 07/26 WOCN: Sacrum unstageable Pressure Injury; Right Buttock Stage III Pressure Injury WOCN dated 07/19: sacrum unstageable, R buttock stage 3 and R foot stage 1 pressure injuries Objective Comments: PMH Includes: BPH, CHF, Cardiac Defibrilator inplace, COPD, GERD, HTN, DM-2, Neuropathy Extubated 07/09; s/p PEG tube placement 07/17 POC Glucose 202, 194, 166, 224 Free Water Flush 200ml g-tube Q 6-hr +3BM, negative c-diff 07/20 Feeding - Current Tube Feeding Tube Feeding Product: Glucerna 1.5 Tube Feeding Method: Pump Tube Feeding Rate: 65 Tube Feeding Route: gastrostomy Assessment Assessment: Pt continues at nutritional risk r/t need for TF'ing and increased needs for wound healing. Current TF'ing of Glucerna 1.5 @ goal rate 65ml/hr adequately meets needs by providing 2340 kcal, 128.7g Protein and 1184 ml free water. TF' ing and Diet currently on hold-GI following for blood in stool. Rec Trev 1- packet BID via g-tube for wound healing and needs to be ordered as a Med- discussed w/RN Eugenia. Wt loss of 13.6 kg since admission. Free Water Flushes per MD. Send Glucerna Shakes w/meals(= 220 kcal and 10g Protein). Plan to provide additional TF'ing Recs when diet has been resumed per GI. Monitor ST Recs. Recommendations: 1. When TF'ing is re-started: TF'ing of Glucerna 1.5 @ goal rate 65ml/hr 2. Rec Trev 1-packet BID via g-tube for wound healing and needs to be ordered as a Med 3. Wt loss of 13.6 kg since admission 4. Free Water Flushes per MD 5. Send Glucerna Shakes w/meals 6. Plan to provide additional TF'ing Recs when diet has been resumed per GI 7. Monitor ST Recs Dietitian to Monitor: Lab values, Glucose level, Supplement acceptance, Intake & Output, Tube feeding tolerance, Weight change, Wound/skin status, Swallow recommendations, Medical course
[2018-08-01] MEDS: traZODone 50 MG Tablet PO SCH (20:43)
[2018-08-01] MEDS: levETIRAcetam 250 MG Tablet G-TUBE SCH (20:43)
[2018-08-01] MEDS: QUEtiapine 25 MG Tablet PO SCH (20:43)
[2018-08-01 20:50] LABS: Baso # (Auto) 0.1 th/mm3 (0.0-0.2); Baso % (Auto) 0.9 % (0.0-2.0); Eos % (Auto) 0.5 % (0.0-4.0); Hematocrit 29.5 % (39.0-51.0); Hemoglobin 9.9 gm/dL (13.0-17.0); Lymph # (Auto) 4.1 th/mm3 (1.0-4.8); Lymph % (Auto) 43.6 % (9.0-44.0); Mean Corpuscular HGB Conc 33.5 % (32.0-36.0); Mean Corpuscular Hemoglobin 31.4 pg (27.0-34.0); Mean Corpuscular Volume 93.7 fL (80.0-100.0); Mean Platelet Volume 10.3 fL (7.0-11.0); Mono # (Auto) 1.2 th/mm3 (0.0-0.9); Mono % (Auto) 12.8 % (0.0-8.0); Neut % (Auto) 42.2 % (16.0-70.0); Platelet Count 211 th/mm3 (150-450); Red Blood Count 3.15 mil/mm3 (4.50-5.90); Red Cell Distribution Width 17.6 % (11.6-17.2); White Blood Count 9.5 th/mm3 (4.0-11.0)
[2018-08-02] MEDS: Insulin NovoLOG Aspart Correctional Sugar Inj SQ SCH ×6 (04:30→23:48)
[2018-08-02 05:01] LABS: Hematocrit 31.6 % (39.0-51.0); Hemoglobin 10.3 gm/dL (13.0-17.0); Mean Corpuscular HGB Conc 32.5 % (32.0-36.0); Mean Corpuscular Hemoglobin 30.7 pg (27.0-34.0); Mean Corpuscular Volume 94.3 fL (80.0-100.0); Mean Platelet Volume 9.8 fL (7.0-11.0); Platelet Count 163 th/mm3 (150-450); Red Blood Count 3.34 mil/mm3 (4.50-5.90); Red Cell Distribution Width 17.5 % (11.6-17.2); White Blood Count 5.3 th/mm3 (4.0-11.0)
[2018-08-02] MEDS: Baclofen 10 MG Tablet PO SCH ×3 (05:20→21:10)
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
[2018-08-02] MEDS: Potassium Chloride 20 MEQ Pwd Pkt NG/OG SCH (08:44)
[2018-08-02] MEDS: Escitalopram 10 MG Tablet PO SCH (08:56)
[2018-08-02] MEDS: Carvedilol 6.25 MG Tablet PO SCH ×2 (08:57→21:02)
[2018-08-02] MEDS: levETIRAcetam 250 MG Tablet G-TUBE SCH ×2 (08:57→21:02)
[2018-08-02] MEDS: Lisinopril 5 MG Tablet PO SCH (08:59)
[2018-08-02] MEDS: Spironolactone 25 MG Tablet PO SCH ×2 (09:00→18:34)
[2018-08-02] MEDS: Brimonidine 0.15% Opth Drops 5 ML Bottle EACH EYE SCH ×2 (09:02→21:02)
[2018-08-02] MEDS: Hypromellose 0.3% Opth Gel 10 GM Bottle EACH EYE SCH ×2 (09:03→21:02)
[2018-08-02] MEDS: Collagenase Oint 30 GM Tube TOPICAL SCH (09:04)
[2018-08-02] MEDS ORDERED: Melatonin 5 MG Tablet PO PRN (09:33)
--- NOTE | 2018-08-02 09:36 | P.PNIM ---
Subjective Interval history: Patient seen this morning around 8:30 AM. Sleeping, wakes up for exam. Denies any pain. Disoriented but agreeable. Physical Exam Vital signs: Vital Signs 08/01/18 11:21 08/01/18 15:40 08/01/18 20:00 Temperature 97.3 F L 97.3 F L 97.4 F L Pulse Rate 89 76 66 Respiratory Rate 18 16 20 Blood Pressure 98/54 L 111/54 L 106/59 L Pulse Oximetry 100 97 99 08/01/18 20:12 08/02/18 00:00 08/02/18 04:00 Temperature 97.4 F L 97.3 F L Pulse Rate 68 68 60 Respiratory Rate 20 20 Blood Pressure 109/57 L 106/56 L Pulse Oximetry 98 98 08/02/18 08:00 Temperature 97.8 F Pulse Rate 63 Respiratory Rate 18 Blood Pressure 124/57 L Pulse Oximetry 100 Intake & Output 08/01/18 08/02/18 08/02/18 18:59 06:59 18:59 Output Total 300 / 300 Balance -300 / -300 Weight 54.3 kg Output: Urine 300 / 300 Other: # Voids 4 Date of Last Bowel Movement 07/30/18 # Incontinent Bowel Movements 1 Narrative: GENERAL: Patient lying in bed. Appears comfortable. Confused. No change on exam. SKIN: Warm and dry. HEAD: Normocephalic. EYES: No scleral icterus. No injection or drainage. NECK: Supple, trachea midline. No JVD. CARDIOVASCULAR: Regular rate and rhythm without murmurs, gallops, or rubs. RESPIRATORY: Breath sounds equal bilaterally. No accessory muscle use. GASTROINTESTINAL: Abdomen soft, non-tender, nondistended. MUSCULOSKELETAL: No cyanosis, or edema. BACK: Nontender without obvious deformity. No CVA tenderness. - Urinary Catheter Management Indwelling Urethral Catheter Cath placed during this visit: yes Urethral indwelling: Yes Reason for continuing: Acute urinary retention Insertion date: 06/20/18 Insertion time: 21:24 3-way Urethral Cath placed during this visit: yes Reason for continuing: Acute urinary retention Insertion date: 07/06/18 Insertion time: 18:00 Results - Labs CBC & Chem 7: 08/02/18 04:24 08/01/18 02:54 Laboratory Results - last 24 hr 09/08/01/18 08/01/18 11:08 11:55 16:52 WBC 6.9 RBC 3.54 L Hgb 11.0 L Hct 34.4 L MCV 97.3 D MCH 31.1 MCHC 31.9 L RDW 18.3 H Plt Count 158 MPV 10.4 Neut % (Auto) 47.0 Lymph % (Auto) 40.5 Millard % (Auto) 11.3 H Eos % (Auto) 0.4 Baso % (Auto) 0.8 Neut # (Auto) 3.2 Lymph # (Auto) 2.8 Millard # (Auto) 0.8 Eos # (Auto) 0.0 Baso # (Auto) 0.1 WBC Differential . Differential Comment Auto diff final POC Glucose 166 H 224 H 08/01/18 08/01/18 08/01/18 20:13 20:44 23:52 WBC 9.5 RBC 3.15 L Hgb 9.9 L Hct 29.5 L MCV 93.7 D MCH 31.4 MCHC 33.5 RDW 17.6 H Plt Count 211 D MPV 10.3 Neut % (Auto) 42.2 Lymph % (Auto) 43.6 Millard % (Auto) 12.8 H Eos % (Auto) 0.5 Baso % (Auto) 0.9 Neut # (Auto) 4.0 Lymph # (Auto) 4.1 Millard # (Auto) 1.2 H Eos # (Auto) 0.0 Baso # (Auto) 0.1 WBC Differential . Differential Comment Auto diff final POC Glucose 110 182 H 08/02/18 08/02/18 08/02/18 04:24 04:42 07:34 WBC 5.3 RBC 3.34 L Hgb 10.3 L Hct 31.6 L MCV 94.3 MCH 30.7 MCHC 32.5 RDW 17.5 H Plt Count 163 MPV 9.8 Neut % (Auto) Lymph % (Auto) Millard % (Auto) Eos % (Auto) Baso % (Auto) Neut # (Auto) Lymph # (Auto) Millard # (Auto) Eos # (Auto) Baso # (Auto) WBC Differential Differential Comment POC Glucose 188 H 157 H - Procedures intubation/ cardiac cath. Assessment and Plan - Plan Acute Resp failurecurrently 97% on room air Resolved extubated 07/09 Continue nebulized treatments As needed //Lower GI bleed //Acute blood loss anemia. 07/31. Large bloody diarrhea reported by nursing. PEG tube residual with only tube feeds. Will reconsult GI. Appreciate assistance. Follow hemoglobin. Hold warfarin and stop Lovenox. = 08/01. Hemoglobin down to 10.3 from 11 yesterday. Suspect secondary to hemorrhoids. Appreciate GI assistance. Discontinue warfarin, anticoagulation as per discussion with yesterday. = 08/02. Hemoglobin 10.3. Improved. Continue off of anticoagulation. Acute systolic CHF exacerbation Implanted defibrillator Has been stabilized baseline EF is 20% Continue beta-ana, Coreg, lisinopril decreased to 2.5 milligrams, Lasix on hold. Cardiology following recommending anticoagulation due to transient atrial fibrillation, Coumadin has been initiated, will monitor PT/INR. Today's INR 1.2. Lovenox used to bridge. = Continue to hold off on therapeutic anticoagulation due to hemorrhoidal bleeding. Staph aureus pneumonia Treatment completed UTI, Pseudomonas Fevers Resolved Completed ciprofloxacin Repeat UA negative Atrial fibrillation Rate controlled on beta-ana Follow on telemetry -EKG from 06/20 with Abhi khanna with RVR -AICD interrogated in June with noted nonsustained V. tach. discussed with Dr. Noonan and has agreed to start the patient on Coumadin , bridging with Lovenox per cardiology. = 07/31. Due to lower GI bleed. Will stop warfarin and Lovenox. Really patient has never had a stroke, recently not found to be in atrial fibrillation on pacer interrogation, and now with GI bleed. NSTEMI Cardiology following Continue beta-ana Continue statin AKIresolved improved Follow renal function Follow urine output Avoid nephrotoxins Lasix currently on hold Hypoxic encephalopathy -Patient seen and evaluated by psychiatry who recommended Seroquel 12.5 mg twice daily. Stop bedtime dose of Ativan. Stop Depakote 250 mg p.o. twice daily for adjuvant therapy due to elevation in hepatic function tests. We will adjust Seroquel to just nightly to encourage alertness for PT participation during the day, will initiate low-dose trazodone at night; we will continue to attempt to get patient restraint free. -Consult Dr. Arreaga, neuropsychology for further recommendations, appreciate assistance. = We will adjust medications as per neuropsychology recommendations. =-9/20. Reviewed neuropsychology recommendations. Will add melatonin at night as needed for sleep. Patient has been started on Keppra twice daily. Will consider decreasing Seroquel. [place] bed ordered. Appreciate PT assistance. Dysphagia status post PEG placement Speech therapy following, last no recommends to keep patient n.p.o. Moderate malnutrition Currently on tube feeds Glucerna at 65 ml per hour and added Trev Thrombocytopenia Monitor PAD aspirin and statin continued COPD No exacerbation Continue nebulized therepies LFT Elevation LFTs stable, slightly decreased from previous labs repeat in the morning due to starting Depakote. Hyperglycemia Follow blood sugars Insulin Sliding Scale Decubitus ulcer -Wound care saw and evaluated patient once again, recommendations for Santyl daily -Dietary following also made aware of wounds -Continue specialty mattress, no cotton on mattress surface, no be found patient , turn every 2 hours. Hold off on rectal tube per at this time. DVT Prophylaxis Lovenox Palliative care currently following, at the healthcare proxy continues aggressive treatment Discharge Planning: We will monitor hemoglobin off of ac Awaiting SNF placement, [facility] has declined patient. would like him to return back to [place]. Case management assisting with placement.
--- NOTE | 2018-08-02 12:38 | P.PNCA ---
Subjective Interval history: sedated undergoing nuclear medicine scan Physical Exam Vital signs: Vital Signs 08/01/18 15:40 08/01/18 20:00 08/01/18 20:12 Temperature 97.3 F L 97.4 F L Pulse Rate 76 66 68 Respiratory Rate 16 20 Blood Pressure 111/54 L 106/59 L Pulse Oximetry 97 99 08/02/18 00:00 08/02/18 04:00 08/02/18 08:00 Temperature 97.4 F L 97.3 F L 97.8 F Pulse Rate 68 60 63 Respiratory Rate 20 20 18 Blood Pressure 109/57 L 106/56 L 124/57 L Pulse Oximetry 98 98 100 Intake & Output 08/01/18 08/02/18 08/02/18 18:59 06:59 18:59 Output Total 300 / 300 Balance -300 / -300 Weight 54.3 kg Output: Urine 300 / 300 Other: # Voids 4 Date of Last Bowel Movement 07/30/18 # Incontinent Bowel Movements 1 - Urinary Catheter Management Indwelling Urethral Catheter Cath placed during this visit: yes Urethral indwelling: Yes Reason for continuing: Acute urinary retention Insertion date: 06/20/18 Insertion time: 21:24 3-way Urethral Cath placed during this visit: yes Reason for continuing: Acute urinary retention Insertion date: 07/06/18 Insertion time: 18:00 Assessment and Plan - Assessment (1) Cardiomyopathy Code(s): I42.9 - Cardiomyopathy, unspecified Status: Acute (2) Cardiomyopathy Code(s): I42.9 - Cardiomyopathy, unspecified Status: Acute (3) PVD (peripheral vascular disease) Code(s): I73.9 - Peripheral vascular disease, unspecified Status: Acute (4) PVD (peripheral vascular disease) Code(s): I73.9 - Peripheral vascular disease, unspecified Status: Acute (5) Tobacco abuse Code(s): Z72.0 - Tobacco use Status: Acute (6) Respiratory failure Code(s): J96.90 - Respiratory failure, unspecified, unspecified whether with hypoxia or hypercapnia Status: Acute (7) Non-ST elevated myocardial infarction (non-STEMI) Code(s): I21.4 - Non-ST elevation (NSTEMI) myocardial infarction Status: Acute (8) Pulmonary edema cardiac cause Code(s): I50.1 - Left ventricular failure, unspecified Status: Acute - Plan 1.) NICM - end stage, euvolemic, refuses in state transfer, requesting transfer to [facility], d/w Dr Solis; beta ana and hellen held due to hypotension, diuresing to optimize potential extubation, he has hypernatremia, dc lopressor, start coreg 6.25 bmg bid and aldactone 25 mg po bid, continue lisinopril 2.5 mg qd, f/u bmp, bnp in am 2.) CAD - nonobstructive, continue aspirin, pravachol 3.) Encephalopathy - moderate per EEG on sedation, neuro following, appropriately verbal starting 07/28/18, still confused, s/p peg 4.) d/w case with at the bedside 07/04/18 5.) Respiratory failure - he is euvolemic, appears to be due to pulmonary and/ or encephalopathic etilology, extubated 07/09/18 but restrained and not following commands, will follow trends in mental and respiratory status, d/w at the bedside 07/19/18, placement @ [facility] pending documented stabilization on sdu x 6 hours 6.) Arrythmia - no afib on interrogation of icd, [employer], no documented afib on telemetry i am aware of, ekg from 06/20/18 reviewed, there is artifact, can not determine if this is nsr with pacs and can not r/o atrial fib , coumadin and lovenox discontinued 08/01/19 due to rectal bleed associated with skin breakdown, notes blood was dark (2) Cardiomyopathy Qualifiers: Cardiomyopathy type: viral Qualified Code(s): B33.24 - Viral cardiomyopathy (6) Respiratory failure Qualifiers: Chronicity: acute Respiratory failure complication: hypoxia Qualified Code(s ): J96.01 - Acute respiratory failure with hypoxia
--- NOTE | 2018-08-02 13:23 | NM ---
EXAM DATE: 08/02/2018 1:16 PM EDT AGE/SEX: 73 years / Male INDICATIONS: Blood in stool. CLINICAL DATA: This is the patient's initial encounter. Patient reports that signs and symptoms have been present for 1 day and indicates a pain score of 4/10. MEDICAL/SURGICAL HISTORY: Chronic obstructive pulmonary disease. Congestive heart failure. Di abetes mellitus type II. Pacemaker. COMPARISON: No prior exams available for comparison. TECHNIQUE: Following the modified in vitro labeling of autologous red cells, dynamic continuous image s were acquired for two hours. ?? DOSE: 21.8 mCi Tc 99m Ultratag Labeled Red Blood Cells IV IMAGING TIME: 2 hr FINDINGS: Biodistribution: There is a very good labeling of red cells without significant uptake in the gastri c wall. There is good delineation of the blood pool of the spleen and abdominal vessels. Bleeding: There is some activity in the very lower rectum which increases with time likely hemorrho idal bleeding. CONCLUSION: 1. Some persistent increased activity overlying the rectum likely hemorrhoidal bleeding. The rest of the colon is unremarkable Electronically signed by: Etienne Abarca MD 08/02/2018 1:21 PM EDT
--- NOTE | 2018-08-02 14:11 | P.PNGI ---
Subjective Interval history: Pt just got back from nuclear medicine. No signs of active bleed, hh stable. Just had BM which seems brown in color per . <Steven Dennis - Last Filed: 08/02/18 13:42> Physical Exam Vital signs: Vital Signs 08/01/18 15:40 08/01/18 20:00 08/01/18 20:12 Temperature 97.3 F L 97.4 F L Pulse Rate 76 66 68 Respiratory Rate 16 20 Blood Pressure 111/54 L 106/59 L Pulse Oximetry 97 99 08/02/18 00:00 08/02/18 04:00 08/02/18 08:00 Temperature 97.4 F L 97.3 F L 97.8 F Pulse Rate 68 60 63 Respiratory Rate 20 20 18 Blood Pressure 109/57 L 106/56 L 124/57 L Pulse Oximetry 98 98 100 Intake & Output 08/01/18 08/02/18 08/02/18 18:59 06:59 18:59 Output Total 300 / 300 Balance -300 / -300 Weight 54.3 kg Output: Urine 300 / 300 Other: # Voids 4 Date of Last Bowel Movement 07/30/18 # Incontinent Bowel Movements 1 Narrative: GENERAL: No acute distress SKIN: Warm and dry. HEAD: Normocephalic. NECK: Supple, trachea midline. No JVD. CARDIOVASCULAR: Regular rate and rhythm without murmurs, gallops, or rubs. RESPIRATORY: Breath sounds equal bilaterally. No accessory muscle use. GASTROINTESTINAL: Abdomen soft, non-tender, nondistended. PEG tube MUSCULOSKELETAL: No cyanosis, or edema. Neuro: alert and oriented - Urinary Catheter Management Indwelling Urethral Catheter Cath placed during this visit: yes Urethral indwelling: Yes Reason for continuing: Acute urinary retention Insertion date: 06/20/18 Insertion time: 21:24 3-way Urethral Cath placed during this visit: yes Reason for continuing: Acute urinary retention Insertion date: 07/06/18 Insertion time: 18:00 <Steven Dennis - Last Filed: 08/02/18 13:42> Vital signs: Vital Signs 08/01/18 20:00 08/01/18 20:12 08/02/18 00:00 Temperature 97.4 F L 97.4 F L Pulse Rate 66 68 68 Respiratory Rate 20 20 Blood Pressure 106/59 L 109/57 L Pulse Oximetry 99 98 08/02/18 04:00 08/02/18 08:00 08/02/18 16:00 Temperature 97.3 F L 97.8 F 97.5 F L Pulse Rate 60 63 58 L Respiratory Rate 18 Blood Pressure 106/56 L 124/57 L 98/55 L Pulse Oximetry 98 100 97 Intake & Output 08/02/18 08/02/18 08/03/18 06:59 18:59 06:59 Output Total 300 / 300 Balance -300 / -300 Weight 54.3 kg Output: Urine 300 / 300 Other: # Voids 4 4 # Bowel Movements 1 # Incontinent Bowel Movements 1 - Urinary Catheter Management Indwelling Urethral Catheter Cath placed during this visit: no 3-way Urethral Cath placed during this visit: no <Trevor Jones E - Last Filed: 08/02/18 19:10> Results - Labs CBC & Chem 7: 08/02/18 04:24 08/01/18 02:54 Laboratory Results - last 24 hr 08/01/18 08/01/18 08/01/18 16:52 20:13 20:44 WBC 9.5 RBC 3.15 L Hgb 9.9 L Hct 29.5 L MCV 93.7 D MCH 31.4 MCHC 33.5 RDW 17.6 H Plt Count 211 D MPV 10.3 Neut % (Auto) 42.2 Lymph % (Auto) 43.6 [place] % (Auto) 12.8 H Eos % (Auto) 0.5 Baso % (Auto) 0.9 Neut # (Auto) 4.0 Lymph # (Auto) 4.1 [place] # (Auto) 1.2 H Eos # (Auto) 0.0 Baso # (Auto) 0.1 WBC Differential . Differential Comment Auto diff final POC Glucose 224 H 110 08/01/18 08/02/18 08/02/18 23:52 04:24 04:42 WBC 5.3 RBC 3.34 L Hgb 10.3 L Hct 31.6 L MCV 94.3 MCH 30.7 MCHC 32.5 RDW 17.5 H Plt Count 163 MPV 9.8 Neut % (Auto) Lymph % (Auto) [place] % (Auto) Eos % (Auto) Baso % (Auto) Neut # (Auto) Lymph # (Auto) [place] # (Auto) Eos # (Auto) Baso # (Auto) WBC Differential Differential Comment POC Glucose 182 H 188 H 08/02/18 07:34 WBC RBC Hgb Hct MCV MCH MCHC RDW Plt Count MPV Neut % (Auto) Lymph % (Auto) [place] % (Auto) Eos % (Auto) Baso % (Auto) Neut # (Auto) Lymph # (Auto) [place] # (Auto) Eos # (Auto) Baso # (Auto) WBC Differential Differential Comment POC Glucose 157 H - Imaging Impressions GI Bleed Scan Nuclear Medicine 08/02/18 07:00 CONCLUSION: 1. Some persistent increased activity overlying the rectum likely hemorrhoidal bleeding. The rest of the colon is unremarkable Chest X-Ray 06/20/18 20:36 CONCLUSION: Bilateral perihilar infiltrates and mild cardiomegaly. Please see above. Abdomen/Bladder Ultrasound 06/21/18 00:00 CONCLUSION: 1. Increased echogenicity of both kidneys typical of chronic parenchymal disease. 2. No evidence of acute obstructive uropathy. 3. Bilateral benign appearing renal cysts. Head CT 06/21/18 00:00 CONCLUSION: 1. Aging brain with mild volume loss. 2. No evidence of acute infarct, hemorrhage, mass or edema. . Chest X-Ray 06/21/18 06:00 CONCLUSION: Stable exam. Chest X-Ray 06/22/18 06:00 CONCLUSION: Stable chest x-ray with airspace consolidation in the left midlung zone and right lung base. Chest X-Ray 06/23/18 00:00 CONCLUSION: Improving bilateral perihilar pulmonary edema. Chest X-Ray 06/27/18 12:38 CONCLUSION: Improving bilateral pulmonary consolidations when compared to the prior study. Chest X-Ray 06/29/18 05:00 CONCLUSION: The ET tube and NG tube are well placed. The lungs are clear. Chest X-Ray 06/30/18 06:00 CONCLUSION: ET tube and NG tube are well placed. Minimal consolidation or atelectasis at the left base. Chest X-Ray 07/03/18 00:00 CONCLUSION: Unchanged left basilar consolidation. Abdomen/Pelvis CT 07/04/18 00:00 CONCLUSION: The bulging in the right lower quadrant is related to distention of the cecum. Head CT 07/04/18 00:00 CONCLUSION: 1. No acute intracranial abnormality is identified. Stable chronic findings include generalized atrophy and chronic periventricular white matter change. 2. Increased fluid in the right mastoid air cells and mild but new mucoperiosteal thickening in the ethmoid and sphenoid sinus. . Chest X-Ray 07/04/18 17:27 CONCLUSION: Support apparatus in good position. New minimal parenchymal changes right base. Abdomen X-Ray 07/05/18 00:00 CONCLUSION: There continues to be focal cecal distention with some stool and air measuring approximately 12.1 cm. Chest X-Ray 07/05/18 00:00 CONCLUSION: Mild bibasal atelectasis. No significant changes. Abdomen X-Ray 07/06/18 00:00 CONCLUSION: Persistent stool in ascending colon with some distention. Chest X-Ray 07/07/18 00:00 CONCLUSION: 1. Faint inferior right perihilar medial right base airspace process could represent atelectasis or early infiltrate. Left lung is clear. 2. Stable position of life-support tubes. Abdomen X-Ray 07/07/18 08:00 CONCLUSION: Bowel gas pattern suggesting hypodynamic ileus. Decreasing amount of stool in the ascending colon. Abdomen X-Ray 07/08/18 00:00 CONCLUSION: 1. Stable, mild distention of what I believe is the cecum. 2. Continued decompression of the remaining portions of the colon. Rectal tube and NG tube remain stable in position Abdomen X-Ray 07/09/18 00:00 CONCLUSION: Persistent distention of the cecum not significantly changed. Chest X-Ray 07/09/18 06:00 CONCLUSION: No significant change mild patchy consolidation of both bases. Abdomen X-Ray 07/10/18 08:00 CONCLUSION: No evidence of obstruction. Chest X-Ray 07/12/18 00:00 CONCLUSION: 1. Persistent mild patchy bibasilar airspace disease, likely atelectasis. 2. No significant interval change following expiration. Head CT 07/12/18 00:00 CONCLUSION: 1. No acute intracranial abnormality. 2. Atrophy. 3. Increased density seen throughout the mastoid air cells and middle ear regions. . GI Bleed Scan Nuclear Medicine 08/02/18 07:00 CONCLUSION: 1. Some persistent increased activity overlying the rectum likely hemorrhoidal bleeding. The rest of the colon is unremarkable - Procedures intubation/ cardiac cath. <Steven Dennis - Last Filed: 08/02/18 13:42> - Labs CBC & Chem 7: 08/02/18 04:24 08/01/18 02:54 Laboratory Results - last 24 hr 08/01/18 08/01/18 08/01/18 20:13 20:44 23:52 WBC 9.5 RBC 3.15 L Hgb 9.9 L Hct 29.5 L MCV 93.7 D MCH 31.4 MCHC 33.5 RDW 17.6 H Plt Count 211 D MPV 10.3 Neut % (Auto) 42.2 Lymph % (Auto) 43.6 [place] % (Auto) 12.8 H Eos % (Auto) 0.5 Baso % (Auto) 0.9 Neut # (Auto) 4.0 Lymph # (Auto) 4.1 [place] # (Auto) 1.2 H Eos # (Auto) 0.0 Baso # (Auto) 0.1 WBC Differential . Differential Comment Auto diff final POC Glucose 110 182 H 08/02/18 08/02/18 08/02/18 04:24 04:42 07:34 WBC 5.3 RBC 3.34 L Hgb 10.3 L Hct 31.6 L MCV 94.3 MCH 30.7 MCHC 32.5 RDW 17.5 H Plt Count 163 MPV 9.8 Neut % (Auto) Lymph % (Auto) [place] % (Auto) Eos % (Auto) Baso % (Auto) Neut # (Auto) Lymph # (Auto) [place] # (Auto) Eos # (Auto) Baso # (Auto) WBC Differential Differential Comment POC Glucose 188 H 157 H 08/02/18 08/02/18 13:42 17:38 WBC RBC Hgb Hct MCV MCH MCHC RDW Plt Count MPV Neut % (Auto) Lymph % (Auto) [place] % (Auto) Eos % (Auto) Baso % (Auto) Neut # (Auto) Lymph # (Auto) [place] # (Auto) Eos # (Auto) Baso # (Auto) WBC Differential Differential Comment POC Glucose 127 H 157 H - Imaging Impressions GI Bleed Scan Nuclear Medicine 08/02/18 07:00 CONCLUSION: 1. Some persistent increased activity overlying the rectum likely hemorrhoidal bleeding. The rest of the colon is unremarkable <Trevor Jones - Last Filed: 08/02/18 19:10> Assessment and Plan (1) Hematochezia Status: Acute Code(s): K92.1 - Melena (2) Hematochezia Status: Acute Code(s): K92.1 - Melena - Plan GI bleed/ hematochezia- No signs of active bleed, hh stable, has some minimal bleeding this am on the wipe Had recent BM after retuning from bleeding scan with no signs of bleeding. Bleeding scan showed Some persistent increased activity overlying the rectum likely hemorrhoidal bleeding. 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 diet) - Monitor labs - Transfuse as needed - The is refusing any interventions at this point unless absolutely necessary - Further recommendations she will depend on the hospital course - Pt seen and examined by Dr. Jones and myself and this note is written on his behalf. <Steven Dennis - Last Filed: 08/02/18 13:42> (1) Hematochezia Status: Acute Code(s): K92.1 - Melena (2) Hematochezia Status: Acute Code(s): K92.1 - Melena - Plan Patient seen and examined Agree with above Continue with current supportive care Monitor labs Not much to add from a GI perspective at this point we will sign off <Trevor Jones - Last Filed: 08/02/18 19:10>
[2018-08-02] MEDS: QUEtiapine 25 MG Tablet PO SCH (21:02)
[2018-08-02] MEDS: traZODone 50 MG Tablet PO SCH (21:02)
[2018-08-03] MEDS: Insulin NovoLOG Aspart Correctional Sugar Inj SQ SCH ×4 (04:28→17:32)
[2018-08-03] MEDS: Baclofen 10 MG Tablet PO SCH ×2 (06:07→15:26)
--- NOTE | 2018-08-03 08:39 | P.PNNPSY ---
- Progress Notes/Response to Treatment Contents of Sessions: Adjustment, Level of consciousness Time with Patient: 15 minutes Premorbid Psychological Status: Premorbid Cognitive, Emotional and Behavioral Status: Stable. 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 The patient has no prior psychiatric difficulties, as described above. Substance abuse history is unremarkable. Behavioral Reactions of Patient and Family/Support System: Deferred. The patients family is experiencing ongoing issues of adjustment given the nature of the injury, and this aspect of recovery will require ongoing monitoring. Emotional/Behavioral Status of Patient and Family/Support System: Deferred. Pertinent issues, if appropriate to this patients clinical care, are described in detail above. Maximizing Acute Care Outcome: There are several recommendations/suggestions presented in order to maximize an optimal therapeutic outcome. VPA was placed on hold due to elevated LFT. Consider instead Keppra instead of VPA, starting at 250 BID, as an adjunct to Seroquel, again with the goal of eventually weaning him from Seroquel entirely. The is concerned that Seroquel is making him too sedated, which may or may not be the case. Second, please consider d/c'ing Ativan and any other benzo because these medications tend to make elderly patients with compromised neuropsychological functions worse. Rather, encourage normal sleep-wake cycles , and augment this encouragement with either Trazodone or melatonin. It would be nice to get him out of two-point restraints. Consider ordering a [place] Bed to facilitate agitation management. I would be happy to provide education to the family, staff etc., if you choose this route. I have had excellent results from a neurobehavioral management standpoint with Coco Beds. Consider no vitals at night to also facilitate sleep-wake cycle. Have PT/OT work with patient during the day as tolerated, with the goal of keeping him up during the day, sleeping at night. I will also order the Agitated Behavior Scale in order to monitor his agitation, and effectiveness of pharmacological intervention. At this point in the recovery process, the patient does not have cognitive capacity as the patient is unable to understand a situation and its likely consequences, nor is the patient able to manipulate information rationally. Cognitive capacity will be assessed throughout the recovery process. Anticipated Problems: Ongoing areas of concern will include behavioral impulsivity, lack of insight and judgment, which is expected to improve with time and treatment. Treatment Plan: This clinician will continue to follow with you throughout the course of this patients acute care treatment, and I will be available to meet with the patient s family/support system to facilitate their understanding and the ongoing care of their family member. The goals of neuropsychological intervention shall be both educational and supportive to the family/support system as is deemed clinically appropriate. 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 Progress Note Narrative: Day 44 of hospitalization. The patient has been started on Keppra and melatonin , with Trazodone 50 HS and Seroquel 25 HS, in with this combination to help normalize sleep wake cycles. His ABS is 20 (24.5,14,14) down from yesterday of 22T. Coco Bed ordered. We need to watch for emotional lability ( said that VPA caused him to be tearful, I don't know if the two are related but I simply note this here). Goal is to get agitation/restlessness down to below 21T on ABS. He may need hand mitts in the [place] bed if his sacral wound is still a problem. I will follow. 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
[2018-08-03] MEDS: Escitalopram 10 MG Tablet PO SCH (09:29)
[2018-08-03] MEDS: levETIRAcetam 250 MG Tablet G-TUBE SCH (09:29)
[2018-08-03] MEDS: Potassium Chloride 20 MEQ Pwd Pkt NG/OG SCH (09:30)
[2018-08-03] MEDS: Carvedilol 6.25 MG Tablet PO SCH (09:30)
[2018-08-03] MEDS: Collagenase Oint 30 GM Tube TOPICAL SCH (09:31)
[2018-08-03] MEDS: Hypromellose 0.3% Opth Gel 10 GM Bottle EACH EYE SCH (09:31)
[2018-08-03] MEDS: Lisinopril 5 MG Tablet PO SCH (09:32)
[2018-08-03] MEDS: Spironolactone 25 MG Tablet PO SCH ×2 (09:41→17:32)
[2018-08-03] MEDS: Brimonidine 0.15% Opth Drops 5 ML Bottle EACH EYE SCH (09:42)
--- NOTE | 2018-08-03 11:50 | P.PNIM ---
Subjective Interval history: Patient says he is feeling right. Denies any chest pain shortness of breath. Denies any pain. Physical Exam Vital signs: Vital Signs 08/02/18 16:00 08/02/18 19:50 08/02/18 20:00 Temperature 97.5 F L 97.8 F Pulse Rate 58 L 90 73 Respiratory Rate 18 20 Blood Pressure 98/55 L 109/52 L Pulse Oximetry 97 98 08/02/18 23:49 08/03/18 00:00 08/03/18 04:00 Temperature 97.2 F L 97.3 F L Pulse Rate 61 69 68 Respiratory Rate 20 20 Blood Pressure 112/55 L 106/56 L Pulse Oximetry 99 96 08/03/18 08:00 Temperature 97.8 F Pulse Rate 58 L Respiratory Rate 18 Blood Pressure 128/61 Pulse Oximetry 98 Intake & Output 08/02/18 08/03/18 08/03/18 18:59 06:59 18:59 Intake Total 1185 / 1185 Balance 1185 / 1185 Weight 54 kg Intake: Tube Feeding 725 / 725 Tube Irrigant 60 / 60 Water Bolus Amount 400 / 400 Other: # Voids 4 3 # Bowel Movements 1 Narrative: GENERAL: Bed. Appears comfortable. No acute distress SKIN: Warm and dry. HEAD: Normocephalic. NECK: Supple, trachea midline. No JVD. CARDIOVASCULAR: Regular rate and rhythm without murmurs, gallops, or rubs. RESPIRATORY: Breath sounds equal bilaterally. No accessory muscle use. GASTROINTESTINAL: Abdomen soft, non-tender, nondistended. PEG tube without any surrounding erythema. MUSCULOSKELETAL: No cyanosis, or edema. Neuro: alert and oriented - Urinary Catheter Management Indwelling Urethral Catheter Cath placed during this visit: yes Urethral indwelling: Yes Reason for continuing: Acute urinary retention Insertion date: 06/20/18 Insertion time: 21:24 3-way Urethral Cath placed during this visit: yes Reason for continuing: Acute urinary retention Insertion date: 07/06/18 Insertion time: 18:00 Results - Labs CBC & Chem 7: 08/02/18 04:24 08/01/18 02:54 Laboratory Results - last 24 hr 08/02/18 08/02/18 08/02/18 13:42 17:38 20:53 POC Glucose 127 H 157 H 120 H 08/02/18 08/03/1818 23:43 04:28 07:53 POC Glucose 151 H 123 H 161 H - Imaging Impressions GI Bleed Scan Nuclear Medicine 08/02/18 07:00 CONCLUSION: 1. Some persistent increased activity overlying the rectum likely hemorrhoidal bleeding. The rest of the colon is unremarkable - Procedures intubation/ cardiac cath. Assessment and Plan - Plan Acute Resp failurecurrently 97% on room air Resolved extubated 07/09 Continue nebulized treatments As needed //Lower GI bleed //Acute blood loss anemia. 07/31. Large bloody diarrhea reported by nursing. PEG tube residual with only tube feeds. Will reconsult GI. Appreciate assistance. Follow hemoglobin. Hold warfarin and stop Lovenox. = 08/01. Hemoglobin down to 10.3 from 11 yesterday. Suspect secondary to hemorrhoids. Appreciate GI assistance. Discontinue warfarin, anticoagulation as per discussion with yesterday. = 08/02. Hemoglobin 10.3. Improved. Continue off of anticoagulation. Acute systolic CHF exacerbation Implanted defibrillator Has been stabilized baseline EF is 20% Continue beta-ana, Coreg, lisinopril decreased to 2.5 milligrams, Lasix on hold. Cardiology following recommending anticoagulation due to transient atrial fibrillation, Coumadin has been initiated, will monitor PT/INR. Today's INR 1.2. Lovenox used to bridge. = Continue to hold off on therapeutic anticoagulation due to hemorrhoidal bleeding. Staph aureus pneumonia Treatment completed UTI, Pseudomonas Fevers Resolved Completed ciprofloxacin Repeat UA negative Atrial fibrillation Rate controlled on beta-ana Follow on telemetry -EKG from 06/20 with Abhi khanna with RVR -AICD interrogated in June with noted nonsustained V. tach. discussed with Dr. Noonan and has agreed to start the patient on Coumadin , bridging with Lovenox per cardiology. = 07/31. Due to lower GI bleed. Will stop warfarin and Lovenox. Really patient has never had a stroke, recently not found to be in atrial fibrillation on pacer interrogation, and now with GI bleed. NSTEMI Cardiology following Continue beta-ana Continue statin AKIresolved improved Follow renal function Follow urine output Avoid nephrotoxins Lasix currently on hold Hypoxic encephalopathy -Patient seen and evaluated by psychiatry who recommended Seroquel 12.5 mg twice daily. Stop bedtime dose of Ativan. Stop Depakote 250 mg p.o. twice daily for adjuvant therapy due to elevation in hepatic function tests. We will adjust Seroquel to just nightly to encourage alertness for PT participation during the day, will initiate low-dose trazodone at night; we will continue to attempt to get patient restraint free. -Consult Dr. Arreaga, neuropsychology for further recommendations, appreciate assistance. = We will adjust medications as per neuropsychology recommendations. =-08/02. Reviewed neuropsychology recommendations. Will add melatonin at night as needed for sleep. Patient has been started on Keppra twice daily. Will consider decreasing Seroquel. Coco bed ordered. Appreciate PT assistance. = 08/03. Continue melatonin at night for sleep, Keppra twice daily as recommended by neuropsychology. Appreciate assistance. Dysphagia status post PEG placement Speech therapy following, last no recommends to keep patient n.p.o. Moderate malnutrition Currently on tube feeds Glucerna at 65 ml per hour and added Trev Thrombocytopenia Monitor PAD aspirin and statin continued COPD No exacerbation Continue nebulized therepies LFT Elevation LFTs stable, slightly decreased from previous labs repeat in the morning due to starting Depakote. Hyperglycemia Follow blood sugars Insulin Sliding Scale Decubitus ulcer -Wound care saw and evaluated patient once again, recommendations for Santyl daily -Dietary following also made aware of wounds -Continue specialty mattress, no cotton on mattress surface, no be found patient , turn every 2 hours. Hold off on rectal tube per at this time. DVT Prophylaxis Avoid anticoagulation due to hemorrhoidal bleeding. Palliative care currently following, at the healthcare proxy continues aggressive treatment Discharge Planning: We will monitor hemoglobin off of ac Awaiting SNF placement, [facility] has declined patient. would like him to return back to [place]. Case management assisting with placement.
--- NOTE | 2018-08-03 15:01 | P.PNCA ---
Subjective Interval history: alert, confused in nad Medications and Allergies Active Medications: Active Medications Acetaminophen (Tylenol Liq) 650 mg NG/OG Q6H PRN PRN Reason: Pain 3-5 or fever Last Admin: 07/30/18 21:01 Dose: 650 mg Al Hydroxide/Mg Hydroxide (Milk Of Magnesia Liq) 30 ml PO Q12H PRN PRN Reason: Mild Constipation Albuterol (Duoneb Neb (Prn)) 1 ampul NEB Q4HR NEB PRN PRN Reason: SHORTNESS OF BREATH/WHEEZING Last Admin: 07/14/18 00:23 Dose: 1 ampul Artificial Tears (Genteal Severe Dry Eye Relief 0.3% Opth Gel) 1 drops EACH EYE BID [facility] Last Admin: 08/03/18 09:31 Dose: 1 drops Baclofen (Lioresal) 10 mg PO Q8HR [facility] Last Admin: 08/03/18 06:07 Dose: 10 mg Bisacodyl (Dulcolax Supp) 10 mg RECTAL DAILY PRN PRN Reason: SEVERE CONSITIPATION Bisacodyl (Dulcolax Supp) 10 mg RECTAL DAILY [facility] Last Admin: 07/19/18 11:11 Dose: Not Given Brimonidine Tartrate (Alphagan P 0.15% Opth Drops) 1 drops EACH EYE BID [facility] Last Admin: 08/03/18 09:42 Dose: Not Given Carvedilol (Coreg) 6.25 mg PO BID [facility] Last Admin: 08/03/18 09:30 Dose: 6.25 mg Collagenase (Santyl Oint) 1 applicatio TOPICAL DAILY [facility] Last Admin: 08/03/18 09:31 Dose: 1 applicatio Dextrose (D50w Vial) 50 ml IV.PUSH UNSCH PRN PRN Reason: PER HYPOGLYCEMIA PROTOCOL Last Admin: 07/12/18 04:25 Dose: 50 ml Escitalopram Oxalate (Lexapro) 10 mg PO DAILY [facility] Last Admin: 08/03/18 09:29 Dose: 10 mg Furosemide (Lasix) 40 mg PO DAILY [facility] Last Admin: 07/28/18 00:44 Dose: Not Given Glucagon (Glucagon Inj) 1 mg OTHER PRN PRN PRN Reason: for Hypoglycemia Protocol Insulin Aspart (Novolog Insulin Correctional Sugar Inj) 0 unit SQ Q4HR [facility]; Protocol Last Admin: 08/03/18 12:07 Dose: Not Given Insulin Detemir (Levemir Inj) 5 unit SQ HS [facility] Last Admin: 07/14/18 21:24 Dose: Not Given Lactobacillus Acidophilus (Lactinex Pkt) 1 gm G-TUBE TID [facility] Last Admin: 08/03/18 12:29 Dose: 1 gm Lactulose (Lactulose Liq) 30 ml PO DAILY PRN PRN Reason: SEVERE CONSITIPATION Lactulose (Lactulose Liq) 30 ml NG/OG DAILY [facility] Last Admin: 07/23/18 09:29 Dose: 30 ml Lansoprazole (Prevacid Solutab) 30 mg NG/OG DAILY [facility] Last Admin: 08/03/18 09:29 Dose: 30 mg Levetiracetam (Keppra) 250 mg G-TUBE BID [facility] Last Admin: 08/03/18 09:29 Dose: 250 mg Lisinopril (Prinivil) 2.5 mg PO DAILY [facility] Last Admin: 08/03/18 09:32 Dose: 2.5 mg Melatonin (Melatonin) 5 mg PO HS PRN PRN Reason: INSOMNIA Last Admin: 08/02/18 21:02 Dose: 5 mg Miscellaneous (Pill Splitter) 1 each OTHER UNSCH PRN PRN Reason: SEE LABEL COMMENTS Potassium Chloride (Kcl Powder) 20 meq NG/OG DAILY [facility] Last Admin: 08/03/18 09:30 Dose: Not Given Pravastatin Sodium (Pravachol) 40 mg PO DAILY@1800 [facility] Last Admin: 07/20/18 17:55 Dose: 40 mg Quetiapine Fumarate (Seroquel) 25 mg PO [facility] Last Admin: 08/02/18 21:02 Dose: 25 mg Senna/Docusate Sodium (Gisell-Colace) 1 tab PO BID [facility] Last Admin: 07/19/18 11:12 Dose: Not Given Sennosides (Senokot) 17.2 mg PO Q12H PRN PRN Reason: Moderate Constipation Sodium Chloride (Ns Flush) 2 ml IV.FLUSH BID [facility] Last Admin: 08/03/18 09:30 Dose: 2 ml Sodium Chloride (Ns Flush) 2 ml IV.FLUSH PRN PRN PRN Reason: FLUSH AFTER USING IV ACCESS Spironolactone (Aldactone) 25 mg PO BID@0900,1800 [facility] Last Admin: 08/03/18 09:41 Dose: 25 mg Sterile Water (Free Water) 200 ml G-TUBE Q6HR [facility] Last Admin: 08/03/18 12:07 Dose: 200 ml Terbutaline Sulfate (Brethine Inj) 1 mg SQ ONCE PRN PRN Reason: Extravasation Trazodone HCl (Desyrel) 50 mg PO HS [facility] Last Admin: 08/02/18 21:02 Dose: 50 mg Allergies Allergy/AdvReac Type Severity Reaction Status Date / Time bee venom protein (honey bee) Allergy Difficulty Verified 06/20/18 22:04 [Bee sting] Breathing hydromorphone Allergy Nausea/Vomi Verified 06/20/18 22:04 ting pregabalin [From Lyrica] Allergy Anaphylaxis Verified 06/20/18 22:04 Home Medications Medication Instructions Recorded Confirmed Type aspirin 81 mg PO DAILY 06/20/18 06/20/18 History baclofen 20 mg PO TID 06/20/18 06/20/18 History brimonidine 1 drp OPHTHALMIC (EYE) TID 06/20/18 06/20/18 History cilostazol 50 mg PO BID 06/20/18 06/20/18 History gabapentin 300 mg PO TID 06/20/18 06/20/18 History metformin 1,000 mg PO BID 06/20/18 06/20/18 History omeprazole 20 mg PO DAILY 06/20/18 06/20/18 History simvastatin 20 mg PO QPM 06/20/18 06/20/18 History sitagliptin [Januvia] 100 mg PO DAILY 06/20/18 06/20/18 History umeclidinium-vilanterol [Anoro 1 inh INHALATION Q24H 06/21/18 06/21/18 History Ellipta] Physical Exam Vital signs: Vital Signs 08/02/18 16:00 08/02/18 19:50 08/02/18 20:00 Temperature 97.5 F L 97.8 F Pulse Rate 58 L 90 73 Respiratory Rate 18 20 Blood Pressure 98/55 L 109/52 L Pulse Oximetry 97 98 08/02/18 23:49 08/03/18 00:00 08/03/18 04:00 Temperature 97.2 F L 97.3 F L Pulse Rate 61 69 68 Respiratory Rate 20 20 Blood Pressure 112/55 L 106/56 L Pulse Oximetry 99 96 08/03/18 08:00 08/03/18 12:00 Temperature 97.8 F 97.4 F L Pulse Rate 58 L 60 Respiratory Rate 18 20 Blood Pressure 128/61 108/56 L Pulse Oximetry 98 97 Intake & Output 08/02/18 08/03/18 08/03/18 18:59 06:59 18:59 Intake Total 1185 / 1185 Balance 1185 / 1185 Weight 54 kg Intake: Tube Feeding 725 / 725 Tube Irrigant 60 / 60 Water Bolus Amount 400 / 400 Other: # Voids 4 3 # Bowel Movements 1 - Urinary Catheter Management Indwelling Urethral Catheter Cath placed during this visit: yes Urethral indwelling: Yes Reason for continuing: Acute urinary retention Insertion date: 06/20/18 Insertion time: 21:24 3-way Urethral Cath placed during this visit: yes Reason for continuing: Acute urinary retention Insertion date: 07/06/18 Insertion time: 18:00 Results 08/02/18 04:24 08/01/18 02:54 CBC 08/01/18 08/02/18 Range/Units 20:13 04:24 WBC 9.5 5.3 (4.0-11.0) th/mm3 RBC 3.15 L 3.34 L (4.50-5.90) mil/mm3 Hgb 9.9 L 10.3 L (13.0-17.0) gm/dL Hct 29.5 L 31.6 L (39.0-51.0) % Plt Count 211 D 163 (150-450) th/mm3 Neut # (Auto) 4.0 (1.8-7.7) th/mm3 Lymph # (Auto) 4.1 (1.0-4.8) th/mm3 [place] # (Auto) 1.2 H (0.0-0.9) th/mm3 Eos # (Auto) 0.0 (0.0-0.4) th/mm3 Baso # (Auto) 0.1 (0.0-0.2) th/mm3 Intake and Output 08/03/18 08/03/18 08/03/18 06:59 14:59 22:59 Intake Total 1185 / 1185 Balance 1185 / 1185 Intake: Tube Feeding 725 / 725 Tube Irrigant 60 / 60 Water Bolus Amount 400 / 400 Other: # Voids 3 Weight 54 kg - Imaging and Cardiology Imaging: Impressions GI Bleed Scan Nuclear Medicine 08/02/18 07:00 CONCLUSION: 1. Some persistent increased activity overlying the rectum likely hemorrhoidal bleeding. The rest of the colon is unremarkable Assessment and Plan - Assessment (1) Cardiomyopathy Code(s): I42.9 - Cardiomyopathy, unspecified Status: Acute (2) Cardiomyopathy Code(s): I42.9 - Cardiomyopathy, unspecified Status: Acute (3) PVD (peripheral vascular disease) Code(s): I73.9 - Peripheral vascular disease, unspecified Status: Acute (4) PVD (peripheral vascular disease) Code(s): I73.9 - Peripheral vascular disease, unspecified Status: Acute (5) Tobacco abuse Code(s): Z72.0 - Tobacco use Status: Acute (6) Respiratory failure Code(s): J96.90 - Respiratory failure, unspecified, unspecified whether with hypoxia or hypercapnia Status: Acute (7) Non-ST elevated myocardial infarction (non-STEMI) Code(s): I21.4 - Non-ST elevation (NSTEMI) myocardial infarction Status: Acute (8) Pulmonary edema cardiac cause Code(s): I50.1 - Left ventricular failure, unspecified Status: Acute - Plan 1.) NICM - end stage, euvolemic, refuses in state transfer, requesting transfer to [facility], d/w Dr Solis; beta ana and hellen held due to hypotension, diuresing to optimize potential extubation, he has hypernatremia, dc lopressor, start coreg 6.25 bmg bid and aldactone 25 mg po bid, continue lisinopril 2.5 mg qd, f/u bmp, bnp in am 2.) CAD - nonobstructive, continue aspirin, pravachol 3.) Encephalopathy - moderate per EEG on sedation, neuro following, appropriately verbal starting 07/28/18, still confused, s/p peg 4.) d/w case with at the bedside 07/04/18 5.) Respiratory failure - he is euvolemic, appears to be due to pulmonary and/ or encephalopathic etilology, extubated 07/09/18 but restrained and not following commands, will follow trends in mental and respiratory status, d/w at the bedside 07/19/18, placement @ [facility] pending documented stabilization on sdu x 6 hours 6.) Arrythmia - no afib on interrogation of icd, [employer], no documented afib on telemetry i am aware of, ekg from 06/20/18 reviewed, there is artifact, can not determine if this is nsr with pacs and can not r/o atrial fib , coumadin and lovenox discontinued 08/01/19 due to rectal bleed associated with skin breakdown, notes blood was dark (2) Cardiomyopathy Qualifiers: Cardiomyopathy type: viral Qualified Code(s): B33.24 - Viral cardiomyopathy (6) Respiratory failure Qualifiers: Chronicity: acute Respiratory failure complication: hypoxia Qualified Code(s ): J96.01 - Acute respiratory failure with hypoxia
--- NOTE | 2018-08-03 15:42 | P.DS ---
Date of admission: 06/20/18 22:52 Primary care physician: UNKNOWN Brief History from admission: Elderly male with a medical history significant for viral cardiomyopathy who was traveling on vacation from [place] with his family in [place] and today developed chest pain with worsening shortness of breath for which EMS was called by family. Patient was extremely short of breath on the arrival and hypoxic and they proceeded with endotracheal intubation and patient was transferred to the ER. In the ER it was noted that his cuff was leaking hence ET tube was exchanged by ER physician and patient was placed on mechanical ventilation. Per his family he has a defibrillator and is followed by his motor room controller in [place] whom he saw in December of this year. He reportedly does not take any diuretic. Chest x-ray done in the ER revealed pulmonary edema. EKG revealed atrial fibrillation. Patient was accepted for admission by critical care medicine service. When I evaluated him in the ER he was sedated with propofol, orally intubated on mechanical ventilation. History was obtained by reviewing records, discussion with family as well as ER physician. DS: Summary Hospital Course: 73-year-old male with a history of atrial fibrillation, nonischemic cardiomyopathy, CHF, who presented with acute respiratory failure, requiring intubation. Bilateral pulmonary infiltrates on admission, BNP trended up to 1000. Patient was treated for CHF exacerbation as well as staph aureus pneumonia found on sputum cultures, for which patient has completed a course of antibiotics. Patient underwent cardiac catheterization with no intervening will disease. Ejection fraction found to be 20% which is chronic. Cardiac medications have been adjusted, and patient will need labs followed. Patient continues to have encephalopathy, suspected to be persistent hospital delirium. CT head with atrophy, however no acute findings. Ammonia level within normal limits. EEG indicative of encephalopathy, however negative for epileptic activity. Neurology, neuropsychology has been following, medications have been adjusted. Patient was started on anticoagulation as per family request, however developed hemorrhoidal bleeding, however hemoglobin stable. Hemorrhoidal bleeding resolved after anticoagulation stopped.. During hospitalization, patient was followed by speech therapy, initially not tolerating food. PEG tube was placed and diet was started. Patient has subsequently been approved for soft diet with thin liquids, however is continuing on tube feeds for malnutrition Patient also found to have stage III sacral ulcer, for which wound care has been following during admission. For problem based summary from most recent progress note, please see below. Acute Resp failurecurrently 97% on room air Resolved extubated 07/09 Continue nebulized treatments As needed //Lower GI bleed //Acute blood loss anemia. 07/31. Large bloody diarrhea reported by nursing. PEG tube residual with only tube feeds. Will reconsult GI. Appreciate assistance. Follow hemoglobin. Hold warfarin and stop Lovenox. = 08/01. Hemoglobin down to 10.3 from 11 yesterday. Suspect secondary to hemorrhoids. Appreciate GI assistance. Discontinue warfarin, anticoagulation as per discussion with yesterday. = 08/02. Hemoglobin 10.3. Improved. Continue off of anticoagulation. Acute systolic CHF exacerbation Implanted defibrillator Has been stabilized baseline EF is 20% Continue beta-ana, Coreg, lisinopril decreased to 2.5 milligrams, Lasix on hold. Cardiology following recommending anticoagulation due to transient atrial fibrillation, Coumadin has been initiated, will monitor PT/INR. Today's INR 1.2. Lovenox used to bridge. = Continue to hold off on therapeutic anticoagulation due to hemorrhoidal bleeding. Staph aureus pneumonia Treatment completed UTI, Pseudomonas Fevers Resolved Completed ciprofloxacin Repeat UA negative Atrial fibrillation Rate controlled on beta-ana Follow on telemetry -EKG from 06/20 with Abhi khanna with RVR -AICD interrogated in June with noted nonsustained V. tach. discussed with Dr. Noonan and has agreed to start the patient on Coumadin , bridging with Lovenox per cardiology. = 07/31. Due to lower GI bleed. Will stop warfarin and Lovenox. Really patient has never had a stroke, recently not found to be in atrial fibrillation on pacer interrogation, and now with GI bleed. NSTEMI Cardiology following Continue beta-ana Continue statin AKIresolved improved Follow renal function Follow urine output Avoid nephrotoxins Lasix currently on hold Hypoxic encephalopathy -Patient seen and evaluated by psychiatry who recommended Seroquel 12.5 mg twice daily. Stop bedtime dose of Ativan. Stop Depakote 250 mg p.o. twice daily for adjuvant therapy due to elevation in hepatic function tests. We will adjust Seroquel to just nightly to encourage alertness for PT participation during the day, will initiate low-dose trazodone at night; we will continue to attempt to get patient restraint free. -Consult Dr. Arreaga, neuropsychology for further recommendations, appreciate assistance. = We will adjust medications as per neuropsychology recommendations. =-08/02. Reviewed neuropsychology recommendations. Will add melatonin at night as needed for sleep. Patient has been started on Keppra twice daily. Will consider decreasing Seroquel. Coco bed ordered. Appreciate PT assistance. = 08/03. Continue melatonin at night for sleep, Keppra twice daily as recommended by neuropsychology. Appreciate assistance. Dysphagia status post PEG placement Speech therapy following, last no recommends to keep patient n.p.o. Moderate malnutrition Currently on tube feeds Glucerna at 65 ml per hour and added Trev Thrombocytopenia Monitor PAD aspirin and statin continued COPD No exacerbation Continue nebulized therepies LFT Elevation LFTs stable, slightly decreased from previous labs repeat in the morning due to starting Depakote. Hyperglycemia Follow blood sugars Insulin Sliding Scale Decubitus ulcer -Wound care saw and evaluated patient once again, recommendations for Santyl daily -Dietary following also made aware of wounds -Continue specialty mattress, no cotton on mattress surface, no be found patient , turn every 2 hours. Hold off on rectal tube per at this time. DVT Prophylaxis Avoid anticoagulation due to hemorrhoidal bleeding. Palliative care currently following, at the healthcare proxy continues aggressive treatment Discharge Planning: We will monitor hemoglobin off of ac Awaiting SNF placement, [facility] has declined patient. would like him to return back to [place]. Case management assisting with placement. - Time Spent with Patient Total time spent providing and/or coordinating discharge services: Greater than 30 minutes - Quality: VTE Deep Vein Thrombosis/Pulmonary Embolism Present on Admission: No Exam Vital signs: Vital Signs 08/02/18 16:00 08/02/18 19:50 08/02/18 20:00 Temperature 97.5 F L 97.8 F Pulse Rate 58 L 90 73 Respiratory Rate 18 20 Blood Pressure 98/55 L 109/52 L Pulse Oximetry 97 98 08/02/18 23:49 08/03/18 00:00 08/03/18 04:00 Temperature 97.2 F L 97.3 F L Pulse Rate 61 69 68 Respiratory Rate 20 20 Blood Pressure 112/55 L 106/56 L Pulse Oximetry 99 96 08/03/18 08:00 08/03/18 12:00 Temperature 97.8 F 97.4 F L Pulse Rate 58 L 60 Respiratory Rate 18 20 Blood Pressure 128/61 108/56 L Pulse Oximetry 98 97 Intake & Output 08/02/18 08/03/18 08/03/18 18:59 06:59 18:59 Intake Total 1185 / 1185 Balance 1185 / 1185 Weight 54 kg Intake: Tube Feeding 725 / 725 Tube Irrigant 60 / 60 Water Bolus Amount 400 / 400 Other: # Voids 4 3 # Bowel Movements 1 Results Procedures completed during hospitalization: intubation/ cardiac cath. Panendoscopy with PEG tube placement. Labs on day of discharge: Labs from last 24 hours 08/03/18 08/03/18 08/03/18 11:50 07:53 04:28 POC Glucose 133 H 161 H 123 H 08/02/18 08/02/18 08/02/18 23:43 20:53 17:38 POC Glucose 151 H 120 H 157 H - Impressions ITS Impressions Abdomen/Bladder Ultrasound 06/21/18 00:00 CONCLUSION: 1. Increased echogenicity of both kidneys typical of chronic parenchymal disease. 2. No evidence of acute obstructive uropathy. 3. Bilateral benign appearing renal cysts. Abdomen/Pelvis CT 07/04/18 00:00 CONCLUSION: The bulging in the right lower quadrant is related to distention of the cecum. Abdomen X-Ray 07/10/18 08:00 CONCLUSION: No evidence of obstruction. Chest X-Ray 07/12/18 00:00 CONCLUSION: 1. Persistent mild patchy bibasilar airspace disease, likely atelectasis. 2. No significant interval change following expiration. Head CT 07/12/18 00:00 CONCLUSION: 1. No acute intracranial abnormality. 2. Atrophy. 3. Increased density seen throughout the mastoid air cells and middle ear regions. . GI Bleed Scan Nuclear Medicine 08/02/18 07:00 CONCLUSION: 1. Some persistent increased activity overlying the rectum likely hemorrhoidal bleeding. The rest of the colon is unremarkable Discharge Plan - Discharge Disposition Patient Disposition: Disch To Another Hospital - Discharge Condition Condition: Serious - Discharge Order Discharge Orders: Discharge Order (Routine); Ordered 08/03/18 Ordered By: Darrell Amin - Discharge Details Anticipated Discharge Date: 08/03/18 - Physicians Team Primary Care Provider: UNKNOWN, Attending Provider: Darrell Amin Other Providers: Jaime Johnson MD, PhD ; Saud Swartz MD ; Johnny Campa MD ; Yolanda Garcia MD ; Dominik Villegas MD ; Nasir Noonan MD ; Yobani Marti MD ; Trevor Jones MD ; Aung Garcia MD ; Stuart Arreaga, PhD ; [facility] ; Rocío Espinoza MD ; Michael Nelson MD ; Zarina Cook MD
[2018-08-03 16:08] VITALS: BP 119/58; PULSE 65; RESP 18; TEMP 97.6; O2SAT 99
--- NOTE | 2018-08-03 16:31 | P.PNPAL ---
Reason for Visit Reason for visit: a. To assist with evaluation and management of symptoms including: dyspnea, pain, agitation, debility. b. To assist medical decision maker(s) with: better understanding of current medical conditions; weighing benefits/burdens of medical treatment options; making medical treatment decisions. Subjective Subjective/Interval History: Pt in bed. at bedside. Pt is calm, alert, pleasantly confused. "Same ol, same ol." Still in restraints. He's happy to be going home, "I'm going home." He denies pain but grimaces on palpation abd. His says he has gas. Rectal bleeding improved, subsequent BM brown. ST following, pt on [facility] soft diet with thin liquids. Tolerating TF. Pt denies any SOB. No signs dyspnea. He is shortly to be discharged to hospital in [place] via [facility]. Family/Friend Interactions: Brief discussion with at bedside. Discussed medical update, imminent d/c. She expressed gratitude for palliative care support. Advance Directives Living Will: Never completed Health Care Surrogate: Never completed Durable Power of Costume Mistress: Never completed Objective Vital Signs: Vital Signs 08/02/18 19:50 08/02/18 20:00 08/02/18 23:49 Temperature 97.8 F Pulse Rate 90 73 61 Respiratory Rate 20 Blood Pressure 109/52 L Pulse Oximetry 98 08/03/18 00:00 08/03/18 04:00 08/03/18 08:00 Temperature 97.2 F L 97.3 F L 97.8 F Pulse Rate 69 68 58 L Respiratory Rate 20 20 18 Blood Pressure 112/55 L 106/56 L 128/61 Pulse Oximetry 99 96 98 08/03/18 12:00 08/03/18 16:00 Temperature 97.4 F L 97.6 F Pulse Rate 60 65 Respiratory Rate 20 18 Blood Pressure 108/56 L 119/58 L Pulse Oximetry 97 99 Intake & Output 08/02/18 08/03/18 08/03/18 18:59 06:59 18:59 Intake Total 1185 / 1185 Balance 1185 / 1185 Weight 54 kg Intake: Tube Feeding 725 / 725 Tube Irrigant 60 / 60 Water Bolus Amount 400 / 400 Other: # Voids 4 3 # Bowel Movements 1 Physical Exam: SKIN: No jaundice, rashes, or lesions. Skin temperature appropriate. Not diaphoretic. EYES: No scleral icterus. No injection or drainage. Fundi not examined. ENT: Nose without bleeding or purulent drainage. CARDIOVASCULAR: RRR RESPIRATORY/CHEST: Symmetric, unlabored respirations. CTA GASTROINTESTINAL: ABD soft, mildly tender to palpation, mildly distended, BS + + PEG tube MUSCULOSKELETAL: Extremities without clubbing, cyanosis, or edema. No mottling or clubbing. + muscle wasting BLE +BUE restraints NEUROLOGICAL: cooperative, pleasantly confused. Oriented to self. PSYCHIATRIC: calm today Diagnostic Tests Laboratory: Laboratory Results - last 72 hr 07/31/18 07/31/18 08/01/18 17:05 21:06 00:11 WBC RBC Hgb Hct MCV MCH MCHC RDW Plt Count MPV Neut % (Auto) Lymph % (Auto) Levy % (Auto) Eos % (Auto) Baso % (Auto) Neut # (Auto) Lymph # (Auto) Levy # (Auto) Eos # (Auto) Baso # (Auto) WBC Differential Differential Comment Sodium Potassium Chloride Carbon Dioxide Anion Gap BUN Creatinine Estimated GFR POC Glucose 188 H 204 H 226 H Random Glucose Calcium Phosphorus Magnesium Albumin 08/01/18 08/01/18 08/01/18 02:54 02:54 03:48 WBC 7.8 D RBC 3.53 L Hgb 11.0 L Hct 33.2 L MCV 94.2 MCH 31.1 MCHC 33.0 RDW 17.3 H Plt Count 132 L MPV 10.8 Neut % (Auto) Lymph % (Auto) Levy % (Auto) Eos % (Auto) Baso % (Auto) Neut # (Auto) Lymph # (Auto) Levy # (Auto) Eos # (Auto) Baso # (Auto) WBC Differential Differential Comment Sodium 132 L Potassium 4.9 Chloride 100 Carbon Dioxide 23.7 Anion Gap 8 BUN 36 H Creatinine 0.91 Estimated GFR 82 L POC Glucose 202 H Random Glucose 145 H Calcium 8.5 Phosphorus 4.4 Magnesium 1.7 Albumin 2.2 L 08/01/18 08/01/18 08/01/18 06:28 07:41 11:08 WBC 6.8 RBC 3.40 L Hgb 10.3 L Hct 31.8 L MCV 93.7 MCH 30.4 MCHC 32.5 RDW 17.3 H Plt Count 168 MPV 10.9 Neut % (Auto) 51.7 Lymph % (Auto) 35.4 Levy % (Auto) 11.9 H Eos % (Auto) 0.2 Baso % (Auto) 0.8 Neut # (Auto) 3.5 Lymph # (Auto) 2.4 Levy # (Auto) 0.8 Eos # (Auto) 0.0 Baso # (Auto) 0.1 WBC Differential . Differential Comment Auto diff final Sodium Potassium Chloride Carbon Dioxide Anion Gap BUN Creatinine Estimated GFR POC Glucose 194 H 166 H Random Glucose Calcium Phosphorus Magnesium Albumin 08/01/18 08/01/18 08/01/18 11:55 16:52 20:13 WBC 6.9 9.5 RBC 3.54 L 3.15 L Hgb 11.0 L 9.9 L Hct 34.4 L 29.5 L MCV 97.3 D 93.7 D MCH 31.1 31.4 MCHC 31.9 L 33.5 RDW 18.3 H 17.6 H Plt Count 158 211 D MPV 10.4 10.3 Neut % (Auto) 47.0 42.2 Lymph % (Auto) 40.5 43.6 Levy % (Auto) 11.3 H 12.8 H Eos % (Auto) 0.4 0.5 Baso % (Auto) 0.8 0.9 Neut # (Auto) 3.2 4.0 Lymph # (Auto) 2.8 4.1 Levy # (Auto) 0.8 1.2 H Eos # (Auto) 0.0 0.0 Baso # (Auto) 0.1 0.1 WBC Differential . . Differential Comment Auto diff final Auto diff final Sodium Potassium Chloride Carbon Dioxide Anion Gap BUN Creatinine Estimated GFR POC Glucose 224 H Random Glucose Calcium Phosphorus Magnesium Albumin 08/01/18 08/01/18 08/02/18 20:44 23:52 04:24 WBC 5.3 RBC 3.34 L Hgb 10.3 L Hct 31.6 L MCV 94.3 MCH 30.7 MCHC 32.5 RDW 17.5 H Plt Count 163 MPV 9.8 Neut % (Auto) Lymph % (Auto) Levy % (Auto) Eos % (Auto) Baso % (Auto) Neut # (Auto) Lymph # (Auto) Levy # (Auto) Eos # (Auto) Baso # (Auto) WBC Differential Differential Comment Sodium Potassium Chloride Carbon Dioxide Anion Gap BUN Creatinine Estimated GFR POC Glucose 110 182 H Random Glucose Calcium Phosphorus Magnesium Albumin 08/02/18 08/02/18 08/02/18 04:42 07:34 13:42 WBC RBC Hgb Hct MCV MCH MCHC RDW Plt Count MPV Neut % (Auto) Lymph % (Auto) Levy % (Auto) Eos % (Auto) Baso % (Auto) Neut # (Auto) Lymph # (Auto) Levy # (Auto) Eos # (Auto) Baso # (Auto) WBC Differential Differential Comment Sodium Potassium Chloride Carbon Dioxide Anion Gap BUN Creatinine Estimated GFR POC Glucose 188 H 157 H 127 H Random Glucose Calcium Phosphorus Magnesium Albumin 08/02/18 08/02/18 08/02/18 17:38 20:53 23:43 WBC RBC Hgb Hct MCV MCH MCHC RDW Plt Count MPV Neut % (Auto) Lymph % (Auto) Levy % (Auto) Eos % (Auto) Baso % (Auto) Neut # (Auto) Lymph # (Auto) Levy # (Auto) Eos # (Auto) Baso # (Auto) WBC Differential Differential Comment Sodium Potassium Chloride Carbon Dioxide Anion Gap BUN Creatinine Estimated GFR POC Glucose 157 H 120 H 151 H Random Glucose Calcium Phosphorus Magnesium Albumin 08/03/18 08/03/18 08/03/18 04:28 07:53 11:50 WBC RBC Hgb Hct MCV MCH MCHC RDW Plt Count MPV Neut % (Auto) Lymph % (Auto) Levy % (Auto) Eos % (Auto) Baso % (Auto) Neut # (Auto) Lymph # (Auto) Levy # (Auto) Eos # (Auto) Baso # (Auto) WBC Differential Differential Comment Sodium Potassium Chloride Carbon Dioxide Anion Gap BUN Creatinine Estimated GFR POC Glucose 123 H 161 H 133 H Random Glucose Calcium Phosphorus Magnesium Albumin Result Diagrams: 08/02/18 04:24 08/01/18 02:54 Imaging: ITS Impressions Abdomen/Bladder Ultrasound 06/21/18 00:00 CONCLUSION: 1. Increased echogenicity of both kidneys typical of chronic parenchymal disease. 2. No evidence of acute obstructive uropathy. 3. Bilateral benign appearing renal cysts. Abdomen/Pelvis CT 07/04/18 00:00 CONCLUSION: The bulging in the right lower quadrant is related to distention of the cecum. Abdomen X-Ray 07/10/18 08:00 CONCLUSION: No evidence of obstruction. Chest X-Ray 07/12/18 00:00 CONCLUSION: 1. Persistent mild patchy bibasilar airspace disease, likely atelectasis. 2. No significant interval change following expiration. Head CT 07/12/18 00:00 CONCLUSION: 1. No acute intracranial abnormality. 2. Atrophy. 3. Increased density seen throughout the mastoid air cells and middle ear regions. . GI Bleed Scan Nuclear Medicine 08/02/18 07:00 CONCLUSION: 1. Some persistent increased activity overlying the rectum likely hemorrhoidal bleeding. The rest of the colon is unremarkable Procedures: 06/23 reintubated 06/26 heart cath 07/09 extubated Assessment and Plan - Disease Oriented Problem List (1) Respiratory failure (2) Non-ST elevated myocardial infarction (non-STEMI) (3) Cardiomyopathy (4) PVD (peripheral vascular disease) (5) Tobacco abuse (6) Constipation Pertinent Non-Medical Issues: Psychosocial: Pt originally from [place]. with 4 kids. 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. Spiritual: nondenominational. decline key punch operator visit. Legal: Per [place] statute is proxy decision maker. Ethical issues impacting care: none Important Contacts: Kristine Avila, - [phone] Prognosis: This is a 72-year-old male with history CHF, COPD, tobacco abuse, diabetes who presented 06[place]20 [place] He has a defibrillator implanted. His baseline ejection fraction is 25% and he is now at less than 20%. Patient reintubated 06/23, extubated . Now with encephalopathy, no improvement and unclear if it will indeed improve. Had cardiac cath 06/26 with finding 3 vessel CAD, non ischemic dilated cardiomyopathy. He is at high risk for continued complications and decline. Code Status: Full Code Plan: - LEGAL DECISON MAKER -No written advanced directives. Patient is not capacitated to make medical decisions, uncertain if he will regain capacity. Per [place] statutes, health care proxy decision making falls to his . - FULL CODE - GOALS - Aggressive. Pt to be transferred to hospital in [place], they are going home. - SYMPTOMS - * pain - multifactorial- prolonged bedbound status, mult tubes and lines, had ileus, now with DTI right buttock, bilat feet, sacrum/coccyx. chest pain prior to admission. denies pain on my eval but grimaces during palpation abd, per he c/o gas. wound care following. consider simethicone. Has PRN Tylenol ordered, no further pain recommendations at this time. * DIARRHEA- 2/2 TF? rectal bleeding improved.. no labs today. GI following, mgmt per GI * dyspnea -reintubated 06/23. extubated 07/09. Recent N STEMI. EF < 20% . s/p cardiac cath 06/26 findings 3 vessel CAD, nonischemic dilated cardiomyopathy. CV surgery consulted, not candidate at this time. pt extubated 07/09. Denies SOB. No sign dyspnea, lungs CTA. Not on oxygen currently, sat 99 on room air. scheduled DuoNeb's, mgmt per pulmonology. * agitation - multifactorial. encephalopathy. extubated. Overall agitation has improved and pt remains mildly restless, constantly fidgeting. this has improved since he's been on seroquel. he calm today. oriented to self and pleasantly confused. still in restraints. Uncertain if encephalopathy will improve. has nightly seroquel, trazodone. on keppra. meds per psych, neuropsychology - pending transfer to hospital in [place] - Palliative care will continue to follow during hospital course as condition evolves, to assist patient/decision-maker with understanding of medical conditions, weighing benefits/burdens of treatment options, for clarification of goals of treatment. Additionally will assist with any symptoms of palliative concern Attestation Attestation: To help prompt me to consider important information that might be impacting today's encounter and assessment, information from prior notes written by myself or my colleagues may have been "brought forward" into today's note. My signature on this note, however, is an attestation that I personally performed the exam, history, and/or decision-making noted today, and, unless otherwise indicated, the interactions with patient, family, and staff as well as the review of records all occurred today. I also attest that the listed assessment and stated plan reflect my best clinical judgment today based on the combination of historical information, prior notes, and today's exam/ interactions. When time spent is documented, it refers only to time spent today by the signer, or if indicated, combined time spent today by collaborating physician/nurse practitioner.
[2018-08-03] MEDS ORDERED: QUEtiapine 25 MG Tablet PO ONE (16:57)
[2018-08-04] MEDS ORDERED: QUEtiapine 25 MG Tablet PO SCH (21:00)
== END 2018-08-03 19:20 | disposition short-term general hospital (02) ==
LOC: NEPC 20:17 → NEDA 22:52 → EDBD 22:52 → HIMC 06-21 01:30 → N07 07-17 22:39
PROVIDERS: ADMIT Internal Medicine; ATTEND Internal Medicine
PROC: PANENDO (2018-07-17 14:30)